=== PATIENT | female | born 1960 | race Caucasian/White ===

== ENCOUNTER 2023-06-22 19:28 | Outpatient (REF) | payer MEDICARE, OTHER, SELFPAY ==
[2023-06-26 12:12] LABS: Age Gdln ACOG Testing Note (.); HPV Aptima Negative (Negative); IGP, Aptima HPV, rfx 16/18,45 Note (.)
== END 2023-06-22 19:29 | disposition home or self-care (01) ==
LOC: LAB 19:28
PROVIDERS: PCP Internal Medicine; Visit Provider Obstetrics & Gynecology
DX: Z01.419 Encounter for gynecological examination (general) (routine) without abnormal findings (principal)
CPT/HCPCS: 87624; G0145

== ENCOUNTER 2023-08-13 10:47 | Outpatient (OUT) | payer MEDICARE, OTHER, SELFPAY ==
--- NOTE | 2023-08-13 11:22 | MM_ITS ---
Patient Name: NORA BRAND MR#: [id number] : 1960 Exam Date: 08/13/2023 Ordering Doctor: DR Kobi Latham . RADIOLOGY REPORT PROCEDURE: MM TOMOSYNTHESIS SCREENING BI COMPARISON: MG MAMM SCREEN 3D TERENCE CAD, 06/05/2022. MG MAMM SCREEN 3D TERENCE CAD, 05/28/2021. MG MAMM SCREEN TERENCE W CAD, 05/27/2020. MG MAMM SCREEN TERENCE W CAD, 01/25/2018. INDICATIONS: Screening Calculator Name NCI Breast Cancer Risk Assessment Tool 5 Year Breast Cancer Risk 1.90% Lifetime Breast Cancer Risk 8.40% Personal Breast Cancer No Personal Ovarian Cancer No Treatments None Family Cancers Sister with thyroid cancer at age 52. LOCATION: The [facility] BREAST COMPOSITION: Scattered areas fibroglandular density. FINDINGS: DIAGNOSTIC CATEGORY 1--NEGATIVE. RIGHT BREAST: No significant suspicious finding. No significant change has occurred. LEFT BREAST: No significant suspicious finding. No significant change has occurred. RECOMMENDATIONS: ROUTINE MAMMOGRAM AND CLINICAL EVALUATION IN 12 MONTHS. PLEASE NOTE: A NORMAL MAMMOGRAM DOES NOT EXCLUDE THE POSSIBILITY OF BREAST CANCER. A CLINICALLY SUSPICIOUS PALPABLE LUMP SHOULD BE BIOPSIED. Dictated by: Rj Lozada M.D. on 08/13/2023 at 14:58 Approved by: Rj Lozada M.D. on 08/13/2023 at 15:01
--- NOTE | 2023-08-13 11:28 | XR_ITS ---
[address] [address] Patient Name: NORA BRAND MRN: [id number] date: 1960 Sex: F Assigned Patient Location: [facility] Current Patient Location: [facility] Accession/Order Number: [id number] Exam Date: 08/13/2023 11:20 Report Date: 08/13/2023 11:51 At the request of: PASHA PAIGE Procedure: XR DEXA axial skeleton EXAMINATION: XR DEXA axial skeleton HISTORY: Postmenopausal COMPARISON: DEXA bone densitometry 05/28/2021 TECHNIQUE: Dual-energy X-ray absorptiometry (DXA) was performed. FINDINGS: SPINE ANALYSIS: Average bone mineral density is 1.317 g/cm2. T-score (standard deviation relative to young adult mean): 1.1 . -1.6% change since prior study. FOREARM ANALYSIS: Average bone mineral density is 0.740 g/cm2. T-score (standard deviation relative to young adult mean): 0.4 . -13.4% change since prior study. XR/XR DEXA axial skeleton IMPRESSION: World [employer] Classification: Normal - Low Fracture Risk Electronically authenticated by: YESENIA BLACK Date: 08/13/2023 11:51
== END 2023-08-13 10:48 | disposition home or self-care (01) ==
LOC: MAMMO 10:47
PROVIDERS: PCP Internal Medicine; Visit Provider Obstetrics & Gynecology
DX: Z12.31 Encounter for screening mammogram for malignant neoplasm of breast (principal); Z78.0 Asymptomatic menopausal state; Z80.8 Family history of malignant neoplasm of other organs or systems
CPT/HCPCS: 77063; 77067; 77080

== ENCOUNTER 2023-08-24 08:56 | Outpatient (OUT) | payer MEDICARE, OTHER, SELFPAY ==
--- NOTE | 2023-08-24 08:59 | US_ITS ---
The [address] [address] Patient Name: NORA BRAND MRN: [id number] date: 1960 Sex: F Assigned Patient Location: Current Patient Location: [place] Accession/Order Number: [id number] Exam Date: 08/24/2023 09:00 Report Date: 08/24/2023 12:59 At the request of: ANDRE MCNEIL Procedure: US renal BI EXAMINATION: US renal BI HISTORY: Kidney Stones COMPARISON: No relevant comparison available. TECHNIQUE: Ultrasound examination was performed of the bladder. FINDINGS: Right Kidney: Normal in size, contour and cortical echotexture. The cortex measures 1.2 cm. 6 mm echogenic focus likely representing a nonobstructing nephrolith. No solid cortical mass or hydronephrosis Height: 5.5 cm Length: 9.2 cm Width: 5.7 cm Left Kidney: Normal in size, contour and cortical echotexture. The cortex measures 1.6 cm. Scattered echogenic foci, the largest measures 4 mm likely representing a nonobstructing nephrolith. No solid cortical mass or hydronephrosis Height: 5.0 cm Length: 9.6 cm Width: 4.3 cm Urinary bladder measures 222 mL. US/US renal BI IMPRESSION: Bilateral nonobstructing nephrolithiasis measuring up to 6 mm in the right and 4 mm in the left Electronically authenticated by: LANEY RAMOS Date: 08/24/2023 12:59
--- NOTE | 2023-08-24 09:50 | XR_ITS ---
The [address] [address] Patient Name: NORA BRAND MRN: [id number] date: 1960 Sex: F Assigned Patient Location: [place] Current Patient Location: [place] Accession/Order Number: [id number] Exam Date: 08/24/2023 09:55 Report Date: 08/24/2023 14:50 At the request of: ANDRE MCNEIL Procedure: XR abdomen 1V EXAM: XR abdomen 1V HISTORY: Kidney Stones COMPARISON: None. TECHNIQUE: AP view of the abdomen. FINDINGS: Nonobstructive bowel gas pattern is noted. There is no suspicious calcification. The osseous structures are intact. XR/XR abdomen 1V IMPRESSION: Nonobstructive bowel gas pattern. Constipation. Electronically authenticated by: JENNIFER CHACON Date: 08/24/2023 14:50
== END 2023-08-24 08:57 | disposition home or self-care (01) ==
LOC: US 08:56
PROVIDERS: PCP Internal Medicine; Visit Provider Physician Assistant
DX: N20.0 Calculus of kidney (principal)
CPT/HCPCS: 74018; 76775

== ENCOUNTER 2023-09-15 09:14 | Outpatient (OUT) | payer MEDICARE, OTHER, SELFPAY ==
--- NOTE | 2023-09-15 09:17 | CT_ITS ---
The [address] [address] Patient Name: NORA BRAND MRN: [id number] date: 1960 Sex: F Assigned Patient Location: CT Current Patient Location: CT Accession/Order Number: [id number] Exam Date: 09/15/2023 09:26 Report Date: 09/15/2023 09:53 At the request of: ANDRE MCNEIL Procedure: CT abdomen pelvis wo con EXAM: CT abdomen pelvis wo con HISTORY: Gross hematuria and left flank pain off-and-on since [place]. History of kidney stones. COMPARISON: None. TECHNIQUE: A noncontrast scan was performed. Sagittal and coronal reformatted images were produced. Dose reduction techniques were achieved by using automated exposure control and/or adjustment of mA and/or kV according to patient size and/or use of iterative reconstruction technique. 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 Both lung bases show small areas of very faint groundglass appearance. The visualized heart and great vessels are normal. There are some calcified nodes in the right hilum. In the posterior medial dome of the liver, there is a slightly ill-defined area of decreased attenuation measuring roughly 2.9 cm in greatest dimension. The liver otherwise shows normal unenhanced characteristics. The spleen, adrenal glands, and pancreas show normal unenhanced characteristics. There is a septation versus a phrygian cap in the fundus of the gallbladder. The gallbladder is otherwise normal. Both kidneys show mildly lobulated contours. No renal stones are seen and there is no hydronephrosis on either side. However, there is a 5.7 mm calcification in the distal third of the right ureter. Note that evaluation of the distal ureters on this exam is very limited due to metallic beam hardening artifact from bilateral hip prostheses. There is scattered calcified plaque in the aorta and branch vessels. There is an IVC filter in place. The large and small bowel are normal caliber. Pelvic organs and urinary bladder are very grossly normal in appearance, although visualization is limited. No suspicious or destructive bone lesions are seen. Degenerative changes in the lumbar spine cause severe canal and neuroforaminal narrowing at several levels. There is no free air or free fluid and no premature stranding is seen. CT/CT abdomen pelvis wo con IMPRESSION: There is a nonobstructing 5.7 mm stone in the distal third of the right ureter. Evaluation of the urinary tract system is otherwise grossly unremarkable. Indeterminate area of decreased attenuation in the posterior medial dome of the liver. Electronically authenticated by: KORY HORAN Date: 09/15/2023 09:53
--- OUTSIDE RECORDS SUMMARY | 2023-09-15 09:36 | XMS_ITS | CCD ---
Author Name Unknown Address [address] [place] [address] Organization [facility] Care Team Providers Care Talcer Name Role Phone Alexander Chen Unavailable [phone] Rossana Dotson Unavailable [phone] ROSANGELA DUMONT Unavailable Unavailabl e YUHAS, ALEXANDER JOSE Unavailable Unavailable LINA NG Unavailable Unavailable LINA NG Unavailable Unavailable [facility] Unavailable U navailable YUDONTAS, ALEXANDER JOSE Unavailable Unavailable LINA NG Unavailable Unavailable ROSSANA DOTSON Unavailable Unavailable YUHAS, ALEXANDER JOSE Unavailable Unavailable LINA NG Unavailable Unavailable LINA NG Unavailable Unavailable YUHAS, ALEXANDER JOSE Unavailable Unavailable LINA NG Unavailable Unavailable LINA NG Unavailable Unavailable [facility] Unavailable U navailable YUHAS, ALEXANDER JOSE Unavailable Unavailable LINA NG Unavailable Unavailable ROSSANA DOTSON Unavailable Unavailable YUHAS, ALEXANDER JOSE Unavailable Unavailable Alexander Chen Primary Care Provider SHEREE VILLAR Referring Unavailable ALEXANDER CHEN Primary Care Unavailable DR ТАТЬЯНА JONES JR Admitting Unavailantoni JONES JR, DR ТАТЬЯНА Sorto Attending Unavailabl e APRIL, DR MUNOZ Primary Care Unavailable SOFIA, DR YESENIA Russell Consulting Unavailable KAREN MENJIVAR, DR ТАТЬЯНА Sorto Consulting Unavailabl e ROYAL, DR PAK Admitting Unavailable ROYAL, DR PAK Attending Unavailable YUFRANCISCO, DR MUNOZ Primary Care Unavailable ELLABELL, DR LANEY Diaz Consulting Unavailable ROYAL, DR PAK Consulting Unavailable ROYAL, DR PAK Admitting Unavailable ROYAL, DR PAK Attending Unavailable YUHAS, DR MUNOZ Primary Care Unavailable ROYAL, DR PAK Consulting Unavailable APRIL, ALEXANDER Primary Care Physician DO Alexander hCen Primary Care Provider MD Mati Mcmillan Attending Provider [phone] Fredos, Alexander Primary Care Unavailable Deyanira, Contreras Attending Unavailable Deyanira, Contreras Admitting Unavailable April, Alexander Primary Care Unavailable Mcmillan, Contreras Attending Unavailable Mcmillan, Contreras Admitting Unavailable Yuhas, Alexander Primary Care Unavailable Mcmillan, Contreras Attending Unavailable Mcmillan, Contreras Admitting Unavailable MAURO NAPIER Attending Unavailable [facility] Unavailab le Jace 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, Dorys Go Attending Unav ailable Yuhas DO, [facility] Primary Care Unavailab le Jace 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, Dorys Go Attending Unav ailable Yuhas DO, [facility] Primary Care Unavailab le Jace 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, Dorys Go Attending Unav ailable Yuhas DO, [facility] Primary Care Unavailab corrine Schwab MD, Lina Ignacio Attending Unavai lable Yuhas DO, [facility] Primary Care Unavailab corrine Schwab MD, Lina Ignacio Attending Unavai lable Jace 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, Dorys Go Attending Unav ailable Yuhas DO, [facility] Primary Care Unavailab MOHIT Mccray Referring Unavailable APRIL, ALEXANDER L Primary Care Unavailable DIANA MCNELI Attending Unavailable DIANA MCNEIL Attending Unavailable EWADIANA FISHER Attending Unavailable EWADIANA FISHER Admitting Unavailable EWADIANA FISHER Attending Unavailable Allergies Allergy Classification Reported Allergen(s) Allergy Type Date of Onset Reaction(s) Facility (9 sources) erythromycin; Translations: [ERYTHROMYCIN] Propensity to adverse reactions to drug 09-11-20 16 Other (See Comments), Unknown (qualifier value) [facility] Work Phone: (9 sources) lithium; Translations: [LITHIUM] Propensity to adverse reactions to drug 10-18-19 18 Other (See Comments), Unknown (qualifier value) [facility] Work Phone: (11 sources) predniSONE; Translations: [PREDNISONE] Propensity to adverse reactions to drug 09-26-19 17 Swelling, Unknown (qualifier value) [facility] Work Phone: (9 sources) sertraline; Translations: [SERTRALINE] Propensity to adverse reactions to drug 09-11-20 16 Other (See Comments), Unknown (qualifier value) [facility] Work Phone: (2 sources) Penicillins; Translations: [PENICILLINS] Propensity to adverse reactions to drug (disorder) 08-30-20 18 [facility] Repository (4 sources) vortioxetine; Translations: [VORTIOXETINE] Drug Allergy 08-12-20 18 AOF, Vomiting [facility] Repository (1 source) milnacipran Drug Allergy 09-26-19 17 [facility] Work Phone: (3 sources) Amoxicillin; Translations: [amoxicillin] Drug Allergy 02-06-20 20 Hives [facility] Rep[facility] (3 sources) Erythromycin; Translations: [erythromycin base] Drug Allergy 02-26-20 14 Gastrointestinal Upset [facility] (1 source) [place] Drug Allergy 07-09-20 17 [facility] (1 source) meloxicam Drug Allergy [facility] (3 sources) meloxicam; Translations: [MELOXICAM] Drug Allergy 02-16-20 19 blood in urine [facility] (2 sources) milnacipran; Translations: [Savella] Drug Allergy 02-26-20 14 [facility] (1 source) predniSONE Drug Allergy 02-26-20 14 [facility] (3 sources) Sertraline; Translations: [Zoloft] Drug Allergy [facility] (5 sources) vortioxetine; Translations: [vortioxetine] Drug Allergy Blood in urine (finding) [facility] (2 sources) Amoxicillin; Translations: [amoxicillin] Drug Allergy Weal (disorder) [facility] [place] (5 sources) milnacipran; Translations: [milnacipran] Drug Allergy 02-06-20 20 Unknown (qualifier value) [facility] (1 source) Amoxicillin Drug Allergy 02-06-20 [facility] Repository (1 source) Erythromycin Drug Allergy 02-06-20 [facility] Rep[facility] (1 source) [place] Drug Allergy 02-06-20 [facility] Rep[facility] (1 source) meloxicam Drug Allergy 02-06-20 [facility] (1 source) milnacipran Drug Allergy 02-06-20 [facility] Repository (1 source) predniSONE Drug Allergy 02-06-20 [facility] Repository (1 source) Sertraline Drug Allergy 02-06-20 [facility] Repository (1 source) sevelamer; Translations: [SEVELAMER] Drug Allergy 01-26-20 [facility] Repository (1 source) LITHIUM ANALOGUES; Translations: [LITHIUM ANALOGUES] Propensity to adverse reactions to drug (disorder) 01-26-20 [facility] Repository Medications Current Medications Medication Drug Class(es) Dates Sig (Normalized) Sig (Original) acetaminophen 300 mg / butalbital 50 mg / caffeine 40 mg / codeine phosphate 30 mg oral capsule (3 sources) Opioid Agonist, Barbiturate, Central Nervous System Stimulant, Methylxanthine Start: 12-08-2019 acetaminophen/bu talbital/caffein e/codeine 300 mg-50 mg-40 mg-30 mg oral capsule 2 cap(s), Oral, Migraine headache, Refill(s) 0 Start Date: 12/08/19 Status: Ordered acetaminophen 325 mg / oxyCODONE hydrochloride 5 mg oral tablet (5 sources) Opioid Agonist Start: 02-02-2020 take 1 tablet by mouth three times daily Oxycodone-Acetam inophen (Percocet) 5-325 mg Tablet Active 1 TAB PO Three times daily February 02, 2020 12:00am Start: 11-11-2017 End: 11-18-2017 take 1 tablet by mouth once as needed for pain, then take 2 tablets by mouth every four to six hours as needed for pain oxyCODONE-acetaminophen (PERCOCET) 5-325 mg per tablet Indications: Osteoarthritis of left hip, unspecified osteoarthritis type Take 1 (one) tablet to 2 (two) tablets by mouth every 4 to 6 hours as needed for pain. 30 tablet 0 11/11/2017 11/18/2017 Active Start: 11-09-2017 End: 11-11-2017 take 1-2 tablets by mouth every four hours as needed End: 11-11-2017 take 1 tablet by mouth every six hours as needed oxyCODONE-acetaminophen (PERCOCET) 5-325 mg per tablet Take 1 tablet by mouth every 6 (six) hours as needed for pain TAKES 1 TABLET . 11/11/2017 Discontinued albuterol 0.83 mg/ml inhalation solution (4 sources) beta2-Adrenergic Agonist Start: 02-02-2020 take 2.5 mg by inhalation four times daily Albuterol Sulfate Active 2.5 MG INHALATION Four times daily February 02, 2020 12:00am Start: 12-08-2019 albuterol 2.5 mg, NEB, Refills(s) 0, Asthma Start Date: 12/08/19 Status: Ordered take 2 puff(s) by in halation every six hours as needed for wheezing albuterol sulfate HFA 108 (90 BASE) MCG/ACT inhaler Inhale 2 puffs into the lungs every 6 hours as needed for Wheezing 0 Active aspirin 81 mg delayed release oral tablet (6 sources) Nonsteroidal Anti-inflammatory Drug Start: 02-02-2020 take 81 mg by mouth once daily at bedtime Aspirin Active 81 MG PO Daily at bedtime February 02, 2020 12:00am Start: 12-08-2019 take 1 mg by mouth once daily aspirin 81 mg oral tablet mg tab(s), Oral, Daily, Refills(s) 0 Start Date: 12/08/19 Status: Ordered take 2 tablets by mo ut once daily aspirin 81 MG chewable tablet Take 162 mg by mouth daily 0 Active End: 11-11-2017 take 1 tablet by mouth once aspirin 81 MG EC tablet In dications: Myocardial Reinfarction Prevention , prevention of transient ischemic attack Take 81 mg by mouth nightly TAKES 2 TABLETS ReasonsMyocardial Reinfarction Prevention, prevention of transient ischemic attack. 11/11/2017 Discontinued aspirin 325 mg / butalbital 50 mg / caffeine 40 mg / codeine phosphate 30 mg oral capsule (2 sources) Opioid Agonist, Barbiturate, Nonsteroidal Anti-inflammatory Drug, Central Nervous System Stimulant, Methylxanthine irznjla-iwzuovdgxf-Z SA-caff (nntwvbtkoz-retsjji-layexdzl-codeine) capsule Indications: MIGRAINES Take 1 capsule by mouth continuous as needed for pain TAKES 2 TABLETS, EACH TABLET IS 30 MG ReasonsMIGRAINES. Active atorvastatin 40 mg oral tablet (7 sources) HMG-CoA Reductase Inhibitor Sta rt: 0 take 1 mg by mouth once daily Lipitor 40 mg Tab mg tab(s), Oral, Daily, Refills(s) 0 Start Date: 12/08/19 Status: Ordered Start: 11-09-2017 End: 11-11-2017 baclofen (7 sources) gamma-Aminobutyric Acid-ergic Agonist Start: 08-25-2023 BACLOFEN 10 MG TABLET BACLOFEN 10 MG TABLET Start Date: 08/25/23 Status: Ordered Start: 02-02-2020 take 20 mg by mouth four times daily Baclofen Active 20 MG PO Four times daily February 02, 2020 12:00am Start: 12-08-2019 take 1 tablet by veronica th four times daily baclofen 20 mg Tab 20 mg = 1 tab(s), Oral, QID, Refills(s) 0 Start Date: 12/08/19 Status: Ordered Start: 11-09-2017 End: 11-11-2017 take 1 tablet by veronica th four times daily baclofen (LIORESAL) 20 MG tablet Indications: FIBROMYALGIA Take 20 mg by mouth 4 (four) times a day TAKES 1 TABLET ReasonsFIBROMYALGIA. Active betamethasone / clotrimazole (2 sources) Azole Antifungal, Corticosteroid Start: 02-02-2020 apply 15 g topically once daily Lotrisone Active 15 GM TOPICAL Daily February 02, 2020 12:00am Start: 11-10-2017 End: 11-11-2017 clotrimazole-betamethasone ( LOTRISONE) cream biotin 1 mg oral tablet (2 sources) Start: 02-04-2021 take 2 tablets by mouth once daily biotin 1000 mcg oral tablet 2,000 mcg = 2 tab(s), Oral, Daily, # 30 tab(s), Refills(s) 0 Start Date: 02/04/21 Status: Ordered 24 hr buPROPion hydrochloride 150 mg extended release oral tablet (3 sources) Aminoketone Start: 02-02-2020 take 150 mg by mouth once daily in the morning Bupropion Hcl Active 150 MG PO Every morning February 02, 2020 12:00am Start: 12-08-2019 take 1 mg by mouth twice daily buPROPion 150 mg ER Tab mg tab(s), Oral, BID, Refills(s) 0 Start Date: 12/08/19 Status: Ordered busPIRone hydrochloride 10 mg oral tablet (3 sources) Start: 02-04-2021 take 1 tablet by mouth twice daily busPIRone 10 mg Tab 10 mg = 1 tab(s), Oral, BID, Refills(s) 0 Start Date: 02/04/21 Status: Ordered Start: 02-02-2020 take 10 mg by mouth once daily in the morning Buspirone Active 10 MG PO Every morning February 02, 2020 12:00am Start: 02-02-2020 take 20 mg by mouth once daily in the evening Buspirone Active 20 MG PO Every evening February 02, 2020 12:00am cholecalciferol 0.125 mg oral tablet (4 sources) Vitamin D Start: 02-02-2020 take 1 tablet by mouth once daily Cholecalciferol (Vitamin D3) (Vitamin D3) 125 mcg (5,000 unit) Tablet Active 125 MCG PO Daily February 02, 2020 12:00am Cholecalciferol (VITAMIN D3) 2000 UNITS CAPS Take 1,000 Units by mouth daily 0 Active take 1 tablet by veronica th once daily in the morning cholecalciferol, vitamin D3, (VITAMIN D3 ) 5,000 unit Tab tablet Indications: SUPPLEMENT Take 5,000 Units by mouth every morning TAKES 1 TABLET . Active cycloSPORINE 0.5 mg/ml ophthalmic suspension (1 source) Calcineurin Inhibitor Immunosuppressant Start: 02-02-2020 take 1 drop(s) into the eye(s) every twelve hours Cyclosporine (Restasis) 0.05 % Dropperette Active 1 DROPS EYE-BOTH Q12H February 02, 2020 12:00am dexlansoprazole 60 mg delayed release oral capsule (3 sources) Proton Pump Inhibitor take 1 capsule by mouth once daily dexlansoprazole (DEXILANT) 60 MG CPDR delayed release capsule Take 60 mg by mouth daily 0 Active take 1 capsule by mo uth twice daily dexlansoprazole (DEXILANT) 60 mg capsule Indications: gastroesophageal reflux disease Take 60 mg by mouth 2 (two) times a day TAKES 1 TABLET ReasonsGastroesophageal Reflux. Active 0.8 ml enoxaparin sodium 100 mg/ml prefilled syringe (6 sources) Low Molecular Weight Heparin Start: 11-13-2017 End: 11-15-2017 take 80 mg by subcutaneous injection every twelve hours enoxaparin (LOVENOX) 80 mg/0.8 mL Syrg Inject 0.8 mL (80 mg total) under the skin every 12 (twelve) hours for 2 days. 5 Syringe 0 11/13/2017 11/15/2017 Active Start: 11-11-2017 End: 11-12-2017 enoxaparin (LOVENOX) 40 mg/0 .4 mL Syrg Inject 0.4 mL (40 mg total) under the skin daily Take on Wednesday11/12/2017 for 1 day. 1 Syringe 0 11/11/2017 11/12/2017 Active Start: 11-10-2017 End: 11-11-2017 enoxaparin (LOVENOX) syringe 40 mg Start: 11-05-2017 End: 11-08-2017 take 80 mg by subcutaneous injection every twelve hours enoxaparin (LOVENOX) 80 mg/0.8 mL Syrg Inject 0.8 mL (80 mg total) under the skin every 12 (twelve) hours for 6 doses. 6 Syringe 0 11/05/2017 11/08/2017 Active enoxaparin (LOVE NOX) 100 MG/ML injection Inject 1 mg/kg into the skin 2 times daily 0 Active famotidine 40 mg oral tablet (1 source) Histamine-2 Receptor Antagonist Start: 08-25-2023 famotidine 40 mg Tab Refills(s) 0 Start Date: 08/25/23 Status: Ordered FeroSul 325 mg oral tablet (1 source) Start: 08-25-2023 FeroSul 325 mg oral tablet Refills(s) 0 Start Date: 08/25/23 Status: Ordered ferrous sulfate 325 mg oral tablet (1 source) Start: 02-02-2020 take 325 mg by mouth once daily Ferrous Sulfate Active 325 MG PO Daily February 02, 2020 12:00am Fish Oils (2 sources) Start: 02-04-2021 Fish Oil 1,200 mg, Oral, Refill(s) 0 Start Date: 02/04/21 Status: Ordered fluticasone / salmeterol (5 sources) Corticosteroid, beta2-Adrenergic Agonist Start: 02-04-2021 take 2 puff(s) by inhalation twice daily Advair HFA 230 mcg-21 mcg Aerosol 2 puff(s), Inhalation, BID, Refill(s) 6 Start Date: 02/04/21 Status: Ordered Start: 02-02-2020 take 1 puff(s) by in halation twice daily Fluticasone Propion-Salmeterol (Advair Hfa) 230-21 mcg/actuation Hfa Aerosol Inhaler Active 2 PUFF INHALATION Twice daily February 02, 2020 12:00am FLUTICASONE/SALM ETEROL (ADVAIR HFA INHL) Indications: ASTHMA Inhale 2 (two) times a day DOES 2 PUFFS ReasonsASTHMA. Active folic acid 1 mg oral tablet (6 sources) Start: 12-08-2019 take 1 tablet by mouth once daily folic acid 1 mg Tab mg tab(s), Oral, Daily, Refills(s) 0 Start Date: 12/08/19 Status: Ordered gabapentin 300 mg oral capsule (7 sources) Anti-epileptic Agent Start: 02-02-2020 take 1 capsule by mouth four times daily Gabapentin (Neurontin) 300 mg Capsule Active 300 MG PO Four times daily February 02, 2020 12:00am Start: 12-08-2019 take 1 mg by mouth e very six hours Neurontin 300 mg Cap mg cap(s), Oral, q6hr, Refills(s) 0 Start Date: 12/08/19 Status: Ordered Start: 11-09-2017 End: 11-11-2017 take 2 capsules by mouth every six hours for pain and pain Start: 09-28-2016 take 0.5 tablet by m outh three times daily gabapentin (NEURONTIN) 600 MG tablet Take 0.5 tablets by mouth 3 times daily 90 tablet 3 09/28/2016 Active take 1 tablet by veronica th four times daily gabapentin (NEURONTIN) 600 MG tablet Indications: Neuropathic Pain Take 600 mg by mouth 4 (four) times a day TAKES 1 TABLET ReasonsNeuropathic Pain. Active 1 ml galcanezumab-gnlm 120 m g/ml prefilled syringe (2 sources) Start: 02-02-2020 Galcanezumab-G nlm (Emgality Syringe) 120 mg/mL Syringe Active 120 MG SUBCUT Q30D February 02, 2020 12:00am Start: 12-08-2019 inject 1 mg by subcu taneous injection every month Emgality Prefilled Pen 120 mg/mL subcutaneous solution SubCutaneous, qMonth, Refills(s) 0 Start Date: 12/08/19 Status: Ordered latanoprost 0.05 mg/ml ophthalmic solution (1 source) Prostaglandin Analog Start: 02-02-2020 take 1 drop(s) into the eye(s) once daily in the evening Latanoprost Active 1 DROPS EYE-BOTH Every evening February 02, 2020 12:00am linaclotide (1 source) Guanylate Cyclase-C Agonist Start: 02-02-2020 take 1 capsule by mouth once daily Linaclotide (Linzess) 290 mcg Capsule Active 290 MCG PO Daily February 02, 2020 12:00am lithium carbonate 300 mg oral tablet (2 sources) End: 10-18-2017 take 1 tablet by mouth three times daily lithium 300 MG tablet Take 300 mg by mouth 3 times daily 0 Active 24 hr loratadine 10 mg / pseudoephedrine sulfate 240 mg extended release oral tablet (3 sources) alpha-Adrenergic Agonist Start: 02-02-2020 take 1 tablet by mouth once daily at bedtime, then take 1 tablet by mouth every twenty-four hours Loratadine-Pseud oephedrine (Claritin-D 24 Hour) 10-240 mg Tablet Extended Release 24 Hr Active 1 TAB PO Daily at bedtime February 02, 2020 12:00am take 1 tablet by mouth once oscar tadine-pseudoePHEDrine (loratadine- pseudoephedrine) 5-120 mg Tb12 Indications: Allergic Rhinitis Take by mouth nightly TAKES 1 TABLET ReasonsAllergic Rhinitis. Active losartan potassium 50 mg oral tablet (1 source) Angiotensin 2 Receptor Chery Start: 02-02-2020 take 1 tablet by mouth once daily Losartan (Cozaar) 50 mg Tablet Active 50 MG PO Daily February 02, 2020 12:00am lurasidone hydrochloride 40 mg oral tablet (1 source) Atypical Antipsychotic Start: 12-08-2019 take 1 mg by mouth once daily Latuda 40 mg oral tablet mg tab(s), Oral, Daily, Refills(s) 0 Start Date: 12/08/19 Status: Ordered metoclopramide 10 mg oral tablet (4 sources) Dopamine-2 Receptor Antagonist Start: 02-04-2021 take 1 tablet by mouth three times daily Reglan 10 mg Tab 10 mg = 1 tab(s), Oral, TID, Refills(s) 0 Start Date: 02/04/21 Status: Ordered Start: 11-10-2017 End: 11-10-2017 metoclopramide (REGLAN) inje ction 10 mg Start: 11-10-2017 End: 11-10-2017 metoclopramide (REGLAN) 5 mg /mL injection - ADS Override Pull Start: 11-10-2017 End: 11-10-2017 metoclopramide (REGLAN) inje ction 10 mg mometasone furoate 0.05 mg/actuat metered dose nasal spray (1 source) Corticosteroid mometasone (NASONEX) 50 MCG/ACT nasal spray 2 sprays by Nasal route daily 0 Active montelukast 10 mg oral tablet (6 sources) Leukotriene Receptor Antagonist Start: 12-08-19 take 1 tablet by mouth once daily in the evening Montelukast (Singulair) 10 mg Tablet Active 10 MG PO Every evening February 02, 2020 12:00am Start: 11-09-2017 End: 11-11-2017 nystatin 100 unt/mg topical powder (2 sources) Polyene Antifungal Start: 02-02-2020 Nystatin (N yamyc) 100,000 unit/gram Powder Active 1 APPLIC TOPICAL Twice daily February 02, 2020 12:00am Start: 11-10-2017 End: 11-11-2017 nystatin (MYCOSTATIN) powder ondansetron 4 mg oral tablet (5 sources) Serotonin-3 Receptor Antagonist Start: 02-02-2020 take 2 tablets by mouth twice daily Ondansetron Hcl (Zofran) 4 mg Tablet Active 2 TAB PO Twice daily February 02, 2020 12:00am Start: 11-11-2017 End: 11-11-2017 ondansetron (ZOFRAN-ODT) disintegrating tablet 4 mg Start: 11-09-2017 End: 11-11-2017 take 4 mg intravenous route every six hours as needed take 1 tablet by veronica th once daily in the morning ondansetron (ZOFRAN) 4 MG tablet Take 4 mg by mouth every morning TAKES 1 TABLET . Active pantoprazole 40 mg delayed release oral tablet (4 sources) Proton Pump Inhibitor Start: 02-02-2020 take 40 mg by mouth once daily Pantoprazole Active 40 MG PO Daily February 02, 2020 12:00am Start: 12-08-2019 take 1 tablet by veronica th twice daily Pantoprazole [address] Tab 40 mg = 1 tab(s), Oral, BID, Refills(s) 0 Start Date: 12/08/19 Status: Ordered Start: 11-09-2017 End: 11-11-2017 24 hr QUEtiapine 300 mg extended release oral tablet (7 sources) Atypical Antipsychotic Start: 02-02-2020 Quetiap ine (Seroquel Xr) 300 mg Tablet Extended Release 24 Hr Active 600 MG PO Daily at bedtime February 02, 2020 12:00am Start: 12-08-2019 take 50 mg by mouth once daily in the evening Seroquel 50 mg, Oral, qPM, Refills(s) 0 Start Date: 12/08/19 Status: Ordered Start: 11-09-2017 End: 11-11-2017 QUEtiapine (SERO QUEL) 25 MG tablet Take 200 mg by mouth nightly 0 Active take 300 mg by mouth once QUEtia pine (SEROQUEL) 200 MG tablet Indications: BIPOLAR Take 300 mg by mouth nightly TAKES 1 TABLET . Active sennosides, nursing home 8.6 mg oral tablet (3 sources) Start: 02-02-2020 take 2 tablets by mouth once daily at bedtime Sennosides (Senna) 8.6 mg Tablet Active 17.2 MG PO Daily at bedtime February 02, 2020 12:00am Start: 12-08-2019 take 1 mg by mouth once daily senna 17.2 mg oral tablet mg tab(s), Oral, Daily, Refills(s) 0 Start Date: 12/08/19 Status: Ordered levothyroxine sodium 0.05 mg oral tablet (6 sources) l-Thyroxine Start: 02-04-2021 take 1.5 tablets by mouth once daily levothyroxine 50 mcg (0.05 mg) Tab 1.5 tab, Oral, Daily, # 30 tab(s), Refills(s) 0 Start Date: 02/04/21 Status: Ordered Start: 11-10-2017 End: 11-11-2017 Start: 09-28-2016 take 1 tablet by veronica th once daily at bedtime Levothyroxine (Synthroid) 25 mcg Tablet Active 25 MCG PO Daily at bedtime February 02, 2020 12:00am take 1 tablet by veronica th once daily in the morning levothyroxine (SYNTHROID, LEVOTHROID) 50 MCG tablet Indications: hypothyroidism Take 50 mcg by mouth every morning TAKES 1 TABLET Reasonshypothyroidism. Active tiZANidine 4 mg oral tablet (1 source) Central alpha-2 Adrenergic Agonist Start: 02-06-2020 take 4 mg by mouth once daily at bedtime Tizanidine Active 4 MG PO Daily at bedtime February 06, 2020 12:00am valsartan 160 mg oral tablet (2 sources) Angiotensin 2 Receptor Chery Start: 02-04-2021 take 1 tablet by mouth once daily valsartan 160 mg Tab 160 mg = 1 tab(s), Oral, Daily, Refills(s) 0 Start Date: 02/04/21 Status: Ordered 24 hr venlafaxine 150 mg extended release oral capsule (5 sources) Serotonin and Norepinephrine Reuptake Inhibitor Start: 02-02-2020 take 1 capsule by mouth once daily Venlafaxine (Effexor Xr) 150 mg Capsule,Extended Release 24hr Active 150 MG PO Daily February 02, 2020 12:00am Start: 11-10-2017 End: 11-11-2017 take 3 capsules by m outh once daily venlafaxine (EFFEXOR XR) 150 MG extended release capsule Take 450 mg by mouth daily 0 Active take 1 capsule by mo uth once daily in the morning venlafaxine (EFFEXOR-XR) 150 MG 24 hr capsule Indications: DEPRESSION Take 150 mg by mouth every morning TAKES 3 TABLETS ReasonsDEPRESSION. Active Vitamin B12 1000 mcg Tab (2 sources) Start: 02-04-2021 take 1 tablet by mouth once daily Vitamin B12 1000 mcg Tab 1,000 mcg = 1 tab(s), Oral, Daily, # 30 tab(s), Refills(s) 0 Start Date: 02/04/21 Status: Ordered Vitamin D3 (2 sources) Start: 12-08-2019 Vitamin D3 5,0 00 International_Unit , Oral, Daily, Refills(s) 0 Start Date: 12/08/19 Status: Ordered warfarin sodium 5 mg oral tablet (9 sources) Vitamin K Antagonist Start: 12-08-2019 take 1 tablet by mouth once daily Coumadin 5 mg Tab 5 mg = 1 tab(s), Oral, Daily, Refills(s) 0 Start Date: 12/08/19 Status: Ordered Start: 11-11-2017 End: 11-11-2017 warfarin (COUMADIN) tablet 7 .5 mg Start: 11-10-2017 End: 11-10-2017 warfarin (COUMADIN) tablet 5 mg Start: 11-09-2017 End: 11-09-2017 warfarin (COUMADIN) tablet 2 .5 mg warfarin (COUMAD IN) 7.5 MG tablet Take 7.5 mg by mouth daily 7. 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 TAKES 1 TABLET OF 5 MG ON MONDAYS, WEDNESDAYS, FRIDAYS.. Active zolpidem tartrate 10 mg oral tablet (5 sources) gamma-Aminobutyric Acid-ergic Agonist Start: 12-08-2019 take 1 tablet by mouth once daily at bedtime as needed for sleep Ambien 10 mg Tab 10 mg = 1 tab(s), Oral, Once a day (at bedtime), PRN for sleep, Refills(s) 0 Start Date: 12/08/19 Status: Ordered End: 11-11-2017 take 1 tablet by mouth once zolpidem (AMBIEN) 10 mg ta blet Indications: Sleep-Onset Insomnia Take 10 mg by mouth nightly TAKES 1.5 TABLETS ReasonsSleep-Onset Insomnia. 11/11/2017 Discontinued Completed/Discontinued Medications Medication Drug Class(es) Dates Sig (Normalized) Sig (Original) acetaminophen 325 mg oral tablet (1 source) Start: 11-09-2017 End: 11-09-2017 acetaminophen (TYLENOL) tablet 975 mg Start: 11-09-2017 End: 11-09-2017 acetaminophen (TYLENOL) tabl et 975 mg aluminum hydroxide 40 mg/ml / magnesium hydroxide 40 mg/ml / simethicone 4 mg/ml oral suspension (1 source) Start: 11-09-2017 End: 11-11-2017 take 30 mL by mouth every four hours as needed bisacodyl 10 mg rectal suppository (1 source) Stimulant Laxative Start: 11-09-2017 End: 11-11-2017 Budesonide-Formote rol Hfa 80 McG-4.5 McG/Actuation Aerosol Inhaler (1 source) Corticosteroid, beta2-Adrenergic Agonist Start: 11-09-2017 End: 11-11-2017 calcium chloride 0.0014 meq/ml / potassium chloride 0.004 meq/ml / sodium chloride 0.103 meq/ml / sodium lactate 0.028 meq/ml injectable solution (1 source) Start: 11-09-2017 End: 11-09-2017 lactated Ringers infusion ceFAZolin 2000 mg injection (1 source) Cephalosporin Antibacterial Start: 11-09-2017 End: 11-10-2017 take 2000 mg intravenous route every eight hours diazePAM 5 mg oral tablet (3 sources) Benzodiazepine Start: 11-09-2017 End: 11-11-2017 take 2.5 mg by mouth twice daily diazePAM (VALIUM) 5 MG tablet Indications: DEPRESSION Take 2.5 mg by mouth 2 (two) times a day TAKES 1 TABLET . Active Diphenhydramine 50 Mg/Ml Injection Solution (3 sources) Histamine-1 Receptor Antagonist Start: 11-10-2017 End: 11-10-2017 diphenhydrAMINE (BENADRYL) injection 25 mg Start: 11-10-2017 End: 11-10-2017 diphenhydrAMINE (BENADRYL) 5 0 mg/mL injection - ADS Override Pull Start: 11-10-2017 End: 11-10-2017 diphenhydrAMINE (BENADRYL) i njection 25 mg docusate sodium 50 mg / sennosides, nursing home 8.6 mg oral tablet (5 sources) Start: 11-09-2017 End: 11-18-2017 senna-docusate (SENNA-S) 8.6-50 mg Take 1 (one) tablet to 2 (two) tablets by mouth 2 (two) times a day for 7 days. 20 tablet 0 11/11/2017 11/11/2017 Discontinued fluticasone propionate 0.05 mg/actuat metered dose nasal spray (3 sources) Corticosteroid Start: 11-09-2017 End: 11-11-2017 take 2 spray(s) nasa l route twice daily, then take 2 spray(s) nasal route fluticasone (FLONASE) 50 mcg/actuation nasal spray Indications: Allergic Rhinitis Instill 2 sprays into each nostril 2 (two) times a day DOES 2 SPRAYS IN EACH NOSTRIL . Active 0.5 ml HYDROmorphone hydrochloride 1 mg/ml prefilled syringe (1 source) Opioid Agonist Start: 11-09-2017 End: 11-11-2017 take 0.5-1 mg intravenous route every three hours as needed Kanaflex (1 source) Start: 02-02-2020 End: 02-06-2020 take 4 mg by mouth once daily at bedtime Kanaflex Discontinued 4 MG PO Daily at bedtime February 02, 2020 12:00am February 06, 2020 3:22pm 1 ml ketorolac tromethamine 30 mg/ml injection (3 sources) Nonsteroidal Anti-inflammatory Drug, Cyclooxygenase Inhibitor Start: 11-10-2017 End: 11-10-2017 ketorolac (TORADOL) injection 30 mg Start: 11-10-2017 End: 11-10-2017 ketorolac (TORADOL) 30 mg/mL (1 mL) injection - ADS Override Pull Start: 11-10-2017 End: 11-10-2017 ketorolac (TORADOL) injectio n 30 mg lamoTRIgine 100 mg oral tabl et (3 sources) Mood Stabilizer, Anti-epileptic Agent Start: 11-10-2017 End: 11-11-2017 take 2 tablets by mo uth once daily in the morning, then take 1 tablet by mouth, then take 2 tablets by mouth lamoTRIgine (LAMICTAL) 25 MG tablet Indications: BIPOLAR Take 50 mg by mouth every morning TAKES 2 TABLETS OF 25 MG TO EQUAL TOTAL OF 50 MG . Active take 1 tablet by veronica th once daily in the morning, then take 1 tablet by mouth, then take 2 tablets by mouth lamoTRIgine (LAMICTAL) 25 MG tablet Indications: BIPOLAR Take 25 mg by mouth every morning TAKES 2 TABLETS OF 25 MG TO EQUAL TOTAL OF 50 MG . Active magnesium hydroxide 80 mg/ml oral suspension (1 source) Start: 11-09-2017 End: 11-11-2017 Memantine Er 7 Mg-14 Mg-21 Mg-28 Mg Capsule,Sprinkle,Ex t.Rel.24hr Pack (1 source) V-riqhno-Y-aspart ate Receptor Antagonist End: 10-18-2017 take 1 tablet by mouth once memantine (NAMENDA XR) 7-14-21-28 mg C24k Indications: MIGRAINES Take by mouth nightly TAKES 1 TABLET ReasonsMIGRAINES. 10/18/2017 Discontinued metoprolol tartrate 50 mg oral tablet (2 sources) beta-Adrenergic Chery Start: 11-09-2017 End: 11-11-2017 morphine sulfate 15 mg extended release oral tablet (1 source) Opioid Agonist End: 10-18-2017 take 1 tablet by mouth every twelve hours morphine (MS CONTIN) 15 MG 12 hr tablet Take 15 mg by mouth every 12 (twelve) hours TAKES 1 TABLET . 10/18/2017 Discontinued naloxone (NARCAN) injection 0.1 mg (1 source) Start: 11-09-2017 End: 11-11-2017 naloxone (NARCAN) injection 0.1 mg polyethylene glycol 3350 142 mg/ml oral solution (3 sources) Osmotic Laxative Start: 11-09-2017 End: 11-11-2017 polyethylene gly col (MIRALAX) 17 gram powder Indications: constipation Take 17 g by mouth daily as needed MIXES WITH LIQUIDS. Active 72 hr scopolamine 0.0139 mg/hr transdermal system (1 source) Anticholinergic Start: 11-09-2017 End: 11-11-2017 scopolamine (TRANSDERM-SCOP) 1 mg over 3 days patch 1 patch sodium chloride (2 sources) Start: 11-09-2017 End: 11-11-2017 sodium chloride (PF) (NS) flush 5 mL Start: 11-09-2017 End: 11-09-2017 vortioxetine 10 mg oral tabl et (3 sources) Start: 11-10-2017 End: 11-11-2017 take 1 tablet by veronica th once daily in the morning vortioxetine (TRINTELLIX) 10 mg tablet Indications: major depressive disorder Take 10 mg by mouth every morning TAKES 1 TABLET . Active Problems Active Problems Problem Classification Problem Date Documented Da te Episodic/Chronic Abdominal pain (2 sources) Flank pain 12-08-2019 Episodic Acute cerebrovascular disease (2 sources) Cerebrovascular accident 12-07-2019 Chronic Anxiety disorders (2 sources) Anxiety disorder, unspecified; Translations: [Anxiety disorder, unspecified] Onset: 8 Chronic Asthma (5 sources) Asthma; Translations: [Mild intermittent asthma, uncomplicated] Onset: 8 11-09-2017 Chronic Calculus of urinary tract (9 sources) Kidney stone; Translations: [Calculus of kidney] Onset: 2 11-09-2017 Episodic Coagulation and hemorrhagic disorders (5 sources) Antiphospholipid syndrome; Translations: [Antiphospholipid syndrome] Onset: 7 09-27-2016 Chronic Coronary atherosclerosis and other heart disease (1 source) Coronary arteriosclerosis; Translations: [Atherosclerotic heart disease of [place] coronary artery without angina pectoris] Onset: 7 09-27-2016 Chronic Deficiency and other anemia (2 sources) Anemia 12-07-2019 Episodic Disorders of lipid metabolism (2 sources) Pure hypercholesterolemia, unspecified; Translations: [Pure hypercholesterolemia, unspecified] Onset: 8 Esophageal disorders (2 sources) Gastroesophageal reflux disease; Translations: [Gastro-esophageal reflux disease without esophagitis] Onset: 7 11-09-2017 Chronic Essential hypertension (3 sources) Hypertensive disorder; Translations: [Essential (primary) hypertension] Onset: 8 11-09-2017 Chronic Genitourinary symptoms and ill-defined conditions (3 sources) Post-micturition incontinence ; Translations: [Urinary incontinence] 12-08-2019 Chronic Genitourinary symptoms and ill-defined conditions (10 sources) Preet hematuria; Translations: [History of urinary tract infection] 12-07-2019 Episodic Headache; including migraine (4 sources) Migraine without aura, not intractable, without status migrainosus; Translations: [Migraine] Onset: 8 12-07-2019 Chronic Immunizations and screening for infectious disease (1 source) Encounter for screening for human papillomavirus (HPV); Translations: [ENC SCREENING HUMAN PAPILLOMAVIRUS] Onset: 2 Episodic Inflammation; infection of eye (except that caused by tuberculosis or sexually transmitteddisease) (2 sources) Optic neuritis 12-07-2019 Chronic Mood disorders (7 sources) Bipolar disorder; Translations: [Bipolar disorder, unspecified] Onset: 7 11-09-2017 Chronic Mood disorders (2 sources) Other specified depressive episodes; Translations: [Other specified depressive episodes] Onset: 8 Osteoarthritis (8 sources) Unilateral primary osteoarthritis, left hip; Translations: [Osteoarthritis of hip] Onset: 8 11-09-2017 Chronic Other aftercare (2 sources) Aftercare following joint replacement surgery; Translations: [Aftercare following joint replacement surgery] Onset: 8 Chronic Other circulatory disease (2 sources) Personal history of transient ischemic attack (TIA), and cerebral infarction without residual deficits; Translations: [Personal history of transient ischemic attack (TIA), and cerebral infarction without residual deficits] Onset: 8 Episodic Other connective tissue disease (2 sources) Presence of left artificial hip joint; Translations: [Presence of left artificial hip joint] Onset: 8 Chronic Other connective tissue disease (2 sources) Fibromyalgia; Translations: [Fibromyalgia] Onset: 8 Episodic Other connective tissue disease (2 sources) Fibromyalgia 12-07-2019 Episodic Other nervous system disorders (1 source) Metabolic encephalopathy; Translations: [Metabolic encephalopathy] Onset: 7 09-27-2016 Chronic Other nervous system disorders (1 source) Chronic pain; Translations: [Other chronic pain] Onset: 7 09-27-2016 Chronic Other nutritional; endocrine; and metabolic disorders (2 sources) Other obesity; Translations: [Other obesity] Onset: 8 Chronic Other screening for suspected conditions (not mental disorders or infectious disease) (8 sources) Encounter for screening for malignant neoplasm of cervix; Translations: [Encounter for screening mammogram for malignant neoplasm of breast] Onset: 2 Episodic Other upper respiratory disease (1 source) Bleeding from nose; Translations: [Epistaxis] 01-31-2020 Episodic Phlebitis; thrombophlebitis and thromboembolism (6 sources) Deep venous thrombosis; Translations: [Personal history of other venous thrombosis and embolism] Onset: 7 11-09-2017 Episodic Residual codes; unclassified (2 sources) Other insomnia; Translations: [Other insomnia] Onset: 8 Chronic Residual codes; unclassified (2 sources) Other specified health status; Translations: [Other specified health status] Onset: 8 Episodic Residual codes; unclassified (1 source) Altered mental status; Translations: [Altered mental status, unspecified] 09-27-2016 Episodic Residual codes; unclassified (1 source) Family history of malignant neoplasm of other organs or systems; Translations: [FAM HX MALIG NEOPLASM OTH ORGN/SYS] Onset: 2 Episodic Substance-related disorders (1 source) Misuse of prescription only drugs; Translations: [Other psychoactive substance use, unspecified, uncomplicated] 09-27-2016 Episodic Thyroid disorders (9 sources) Hypothyroidism; Translations: [Hypothyroidism, unspecified] Onset: 7 11-09-2017 Chronic Unclassified (2 sources) Finding of sensation of bladder 12-08-2019 Urinary tract infections (2 sources) Postinfective urethral stricture of female 08-06-2020 Episodic Past or Other Problems Problem Classification Problem Date Documented Date Episodic/Chronic Headache, including migraine (2 sources) Headache; Translations: [Chronic headache disorder] Onset: 09-27-2016 11-09-2017 Episodic Other aftercare (1 source) Polypharmacy ; Translations: [Other terminal make up operator (current) drug therapy] Onset: 09-27-2016 09-27-2016 Episodic Other circulatory disease (2 sources) Elevated blood-pressure reading, without diagnosis of hypertension; Translations: [Elevated blood-pressure reading, without diagnosis of hypertension] Onset: 10-21-2017 Episodic Other circulatory disease (1 source) History of cerebrovascular accident; Translations: [Personal history of transient ischemic attack (TIA), and cerebral infarction without residual deficits] Onset: 09-27-2016 09-27-2016 Episodic Other connective tissue disease (1 source) Primary fibromyalgia syndrome; Translations: [Fibromyalgia, primary] 11-09-2017 Episodic Other nervous system disorders (1 source) Disorder of brain; Translations: [Encephalopathy, unspecified] Resolved: 09-27-2016 09-27-2016 Chronic Residual codes; unclassified (2 sources) Other specified personal risk factors, not elsewhere classified; Translations: [Other specified personal risk factors, not elsewhere classified] Onset: 10-21-2017 Episodic Residual codes; unclassified (2 sources) Insomnia, unspecified; Translations: [Insomnia, unspecified] Onset: 10-21-2017 Episodic Unclassified (1 source) Personal history of other medical treatment; Translations: [History of blood transfusion] 11-09-2017 Episodic Results Test Name Value Interpretation Reference Range Facility Ambulatory Visit Summaryon 0 09-14-2023 Ambulatory Visit Summary NOEMI CABALLERO :1960 Visit Date:09/14/2023 Ambulatory Visit Instructions Your Diagnosis Feeling of incomplete bladder emptying Tests Performed Urnls Dip Stick Auto w/o Microscopy POC 40606 Your Care Team Attending Physician - DIANA MCNEIL PA-C Primary Care Physician - ALEXANDER CHEN DO This Is Your Medications List APAP/butalbital/caff eine/codeine (acetaminophen/butal bital/caffeine/codei ne 300 mg-50 mg-40 mg-30 mg oral capsule) Misc Prescription (BACLOFEN 10 MG TABLET) albuterol aspirin (aspirin 81 mg oral tablet) atorvastatin (Lipitor 40 mg Tab) baclofen (baclofen 20 mg Tab) biotin (biotin 1000 mcg oral tablet) buPROPion (buPROPion 150 mg ER Tab) cholecalciferol (Vitamin D3) cyanocobalamin (Vitamin B12 1000 mcg Tab) famotidine (famotidine 40 mg Tab) ferrous sulfate (FeroSul 325 mg oral tablet) fluticasone-salmeter ol (Advair HFA 230 mcg-21 mcg Aerosol) folic acid (folic acid 1 mg Tab) gabapentin (Neurontin 300 mg Cap) omega-3 polyunsaturated fatty acids (Fish Oil) pantoprazole (Pantoprazole [address] Tab) quetiapine (Seroquel) senna (senna 17.2 mg oral tablet) valsartan (valsartan 160 mg Tab) warfarin (Coumadin 5 mg Tab) zolpidem (Ambien 10 mg Tab) Procedures Performed Laparoscopic bilateral oophorectomy (07/08/2020), Cauterization of internal nose (02/06/2020), Cystourethroscopy with dilation of urethral stricture (03/10/2018), Hip replacement (2017), Cataract extraction (2015), Vena cava filter (2014), Diskectomy (2008), History of knee surgery (1997), Cystoscope (1987), Caesarean section (1986). What to do next Scheduled Follow-Up Appointments Wednesday 10:00 AM EST With: DIANA MCNEIL PA-C Where: [facility] RAD - MISCon 08-30-2023 RAD - MISC [id number] #1.00TIFF [facility] RAD - Ultrasound Reporton RAD - Ultrasound Report [id number] #1.00TIFF Normal [facility] RAD - MISCon 08-26-2023 RAD - MISC [id number] #1.00TIFF Normal [facility] RAD - Ultrasound Reporton RAD - Ultrasound Report [id number] #1.00TIFF Normal [facility] Screenson 08-26-2023 Screens [id number] #1.00TIFF Normal [facility] Patient Educationon 08-25-20 Patient Education Nephrology Dietary Guidelines to Help Prevent Kidney Stones Kidney stones are deposits of minerals and salts that form inside your kidneys. Your risk of developing kidney stones may be greater depending on your diet, your lifestyle, the medicines you take, and whether you have certain medical conditions. Most people can lower their risks of developing kidney stones by following these dietary guidelines. Your dietitian may give you more specific instructions depending on your overall health and the type of kidney stones you tend to develop. What are tips for following this plan? Reading food labels ? Choose foods with no salt added or low-salt labels. Limit your salt (sodium) intake to less than 1,500 mg a day. ? Choose foods with calcium for each meal and snack. Try to eat about 300 mg of calcium at each meal. Foods that contain 200?500 mg of calcium a serving include: ? 8 oz (237 mL) of milk, calcium-fortifiednon -dairy milk, and calcium-fortifiedfru it juice. Calcium-fortified means that calcium has been added to these drinks. ? 8 oz (237 mL) of kefir, yogurt, and soy yogurt. ? 4 oz (114 g) of tofu. ? 1 oz (28 g) of cheese. ? 1 cup (150 g) of dried figs. ? 1 cup (91 g) of cooked broccoli. ? One 3 oz (85 g) can of sardines or mackerel. Most people need 1,000?1,500 mg of calcium a day. Talk to your dietitian about how much calcium is recommended for you. Shopping ? Buy plenty of fresh fruits and vegetables. Most people do not need to avoid fruits and vegetables, even if these foods contain nutrients that may contribute to kidney stones. ? When shopping for convenience foods, choose: ? Whole pieces of fruit. ? Pre-made salads with dressing on the side. ? Low-fat fruit and yogurt smoothies. ? Avoid buying frozen meals or prepared deli foods. These can be high in sodium. ? Look for foods with live cultures, such as yogurt and kefir. ? Choose high-fiber grains, such as whole-wheat breads, oat bran, and wheat cereals. Cooking ? Do not add salt to food when cooking. Place a salt shaker on the table and allow each person to add their own salt to taste. ? Use vegetable protein, such as beans, textured vegetable protein (TVP), or tofu, instead of meat in pasta, casseroles, and soups. Meal planning ? Eat less salt, if told by your dietitian. To do this: ? Avoid eating processed or pre-made food. ? Avoid eating fast food. ? Eat less animal protein, including cheese, meat, poultry, or fish, if told by your dietitian. To do this: ? Limit the number of times you have meat, poultry, fish, or cheese each week. Eat a diet free of meat at least 2 days a week. ? Eat only one serving each day of meat, poultry, fish, or seafood. ? When you prepare animal proteins, cut pieces into small portion sizes. For most meat and fish, one serving is about the size of the palm of your hand. ? Eat at least five servings of fresh fruits and vegetables each day. To do this: ? Keep fruits and vegetables on hand for snacks. ? Eat one piece of fruit or a handful of berries with breakfast. ? Have a salad and fruit at lunch. ? Have two kinds of vegetables at dinner. ? You may be told to limit foods that are high in a substance called oxalate. These include: ? Spinach (cooked), rhubarb, beets, sweet potatoes, and [place] chard. ? Peanuts. ? Potato chips, kazakh fries, and baked potatoes with skin on. ? Nuts and nut products. ? Chocolate. ? If you regularly take a diuretic medicine, make sure to eat at least 1 or 2 servings of fruits or vegetables that are high in potassium each day. These include: ? Avocado. ? Banana. ? Spink, prune, carrot, or tomato juice. ? Baked potato. ? Cabbage. ? Beans and split peas. Lifestyle ? Drink enough fluid to keep your urine pale yellow. This is the most important thing you can do. Spread your fluid intake throughout the day. ? If you drink alcohol: ? Limit how much you have to: ? 0?1 drink a day for women who are not . ? 0?2 drinks a day for men. ? Know how much alcohol is in your drink. In the [place] one drink equals one 12 oz bottle of beer (355 mL), one 5 oz glass of wine (148 mL), or one 1? oz glass of hard liquor (44 mL). ? Lose weight if told by your health care provider. Work with your dietitian to find an eating plan and weight loss strategies that work best for you. General information ? Talk to your health care provider and dietitian about taking daily supplements. Depending on your health and the cause of your kidney stones, you may be told: ? Do not take high-dose supplements of vitamin C (1,000 mg a day or more). ? To take a calcium supplement. ? To take a daily probiotic supplement. ? To take other supplements such as magnesium, fish oil, or vitamin B6. ? Take bbji-yog-xbduzwj and prescription medicines only as told by your health care provider. These include supplements. What foods sh (more content not included)... Normal [facility] Reminderson 08-25-2023 Reminders - From: Franchesca Gracia To: JOSUE - Kartik Mcneil; Sent: 08/25/2023 13:41:26 EST Show up: 06/25/2024 14:41:00 EDT Subject: Imaging Due Date/Time: 08/25/2024 13:41:00 EST Pt is to get LUCY and KUB done prior to appt. Pt prefers [facility]. Normal [facility] Urology Office/Clinic Noteon 12-13-2023 Urology Office/Clinic Note Chief Complaint 1yr LUCY & KUB HPI Staff Former DLS pt- Last OV 08/25/22 1yr LUCY & KUB DX: Kidney Stone *No Urology Meds LUCY &KUB done- 08/24/23 Previous DX; Kidney stones Denies symptoms of Kidney Stones. Denies blood in urine. Denies all urinary complaints. No concerns at this time. History of Present Illness staff HPI reviewed and agree. Review of Systems PHQ Score Initial Depression Screen Score: 0 SCORE no fever, chills, malaise, myalgia. no rash/lesions. no chest pain, palpitations, or SOB. no abdominal pain, nausea, vomiting. no unilateral calf swelling, redness, pain Physical Exam Vitals & Measurements HR: 69(Peripheral) RR: 16 BP: 132/70 HT: 65 in HT: 165 cm WT: 97 kg WT: 213.4 lb BMI: 35.63 General: nontoxic, NAD Mouth: moist mucosa Lungs: normal respiratory effort Cardio: regular rate, good distal perfusion Abdomen: nondistended, no suprapubic distention or tenderness, no CVA tenderness Neurologic: Grossly normal Skin: No rashes or suspicious lesions Assessment/Plan 1. Kidney stone (N20.0: Calculus of kidney) Has passed 5 stones in her life. most recent was Nov 2019 and pt passed this stone. KUB 08/07/22 shows no stones but obscured by stool. KUB 08/24/23 - no stones noted, +constipation LUCY 08/24/23 - bilat stones measuring up to 6mm in the Rt and 4mm in the Lt kidney. no hydro. Discussed imaging results with pt. Denies blood in urine. Denies recent infection. No UTIs this past year. UA today is negative for blood and infection. Pt states that she has BL flank pain for the past few weeks-months and didn't know if was caused by stones or not, has seen her pain management doctor. Advised pt that the pain is not likely caused by her kidney stones due to there not being any hydro on recent US, size/location of stones, and the fact that pain is bilat. However, advised pt that if her pain persists, she can let us know and we can always get a CT done to be sure. Discussed doing a metabolic workup in the future if the pt would like, declines at this time. Counseled pt on dietary modifications to prevent future stones. Follow up in 1 yr w/LUCY and KUB. All questions/concerns were discussed. Pt to call the office if she encounters any issues prior. Pt acknowledges understanding. -Will order KUB and LUCY. [facility] -Dietary modifications. 2. Urinary leakage (R32: Unspecified urinary incontinence) Pt states that she leaks a little bit when she is done voiding. Doesn't wait too long in-between voids but can hold it about 2 hrs. Urgency isn't too severe. Minimal DARIAN. Pt states that she wears a pad during the day, most days. Discussed starting a med to help with this sxs. Risks/benefits/side effects discussed. Pt states that she would like wait to start meds at this time, sx not bothersome enough to warrant tx. Will monitor. Follow-up With When Contact Information EWA SAPP, DIANA Miller, URL In 1 year [address] [facility] [place] [address] Additional Instructions: w/KUB and LUCY Patient Education Dietary Guidelines to Help Prevent Kidney Stones IFranchesca, personally scribed for Diana Mcneil PA-C on 08/25/2023 13:39:52. . Documentation recorded by the franchescaibpaul Gracia accurately reflects the services(s) I performed and decisions made by me. Authenticated by Diana Mcneil PA-C on 08/25/2023 13:48:56. Problem List/Past Medical History Ongoing Anemia Antiphospholipid syndrome Asthma Bipolar disorder Cerebrovascular accident Depression Feeling of incomplete bladder emptying Fibromyalgia Flank pain Gross hematuria H/O deep venous thrombosis H/O urinary tract infection Cristi's disease Hematuria, microscopic Hypothyroidism Kidney stone Lupus anticoagulant disorder Migraine Nocturia Optic neuritis Post-void dribbling Postinfective urethral stricture in female Urinary leakage Weak urine stream Historical No qualifying data Procedure/Surgical History Laparoscopic bilateral oophorectomy (07/08/2020), Cauterization of internal nose (02/06/2020), Cystourethroscopy with dilation of urethral stricture (03/10/2018), Hip replacement (2017), Cataract extraction (2015), Vena cava filter (2014), Diskectomy (2008), History of knee surgery (1997), Cystoscope (1987), Caesarean section (1986). Medications acetaminophen/butalb ital/caffeine/codein e 300 mg-50 mg-40 mg-30 mg oral capsule, 2 cap(s), Oral, PRN Advair HFA 230 mcg-21 mcg Aerosol, 2 puff(s), Inhalation, BID albuterol, 2.5 mg, NEB Ambien 10 mg Tab, 10 mg= 1 tab(s), Oral, Once a day (at bedtime), PRN aspirin 81 mg oral tablet, Oral, Daily BACLOFEN 10 MG TABLET, 0 baclofen 20 mg Tab, 20 mg= 1 tab(s), Oral, QID biotin 1000 mcg oral tablet, 2000 mcg= 2 tab(s), Oral, Daily buPROPion 150 mg ER Tab, Oral, BID Coumadin 5 mg Tab, 5 mg= 1 tab(s), Oral, Daily famotidine 40 mg Tab FeroSul 325 mg oral tab (more content not included)... Normal [facility] Comment on above: Result Comment: Elec tronically Signed By: DIANA MCNEIL PA-C\.br\Date and Time Signed: 08/25/23 13:49 EST\.br\Electronically Co-Signed By: Franchesca Gracia\.br\Date and Time Co-Signed: 08/25/23 13:40 EST Pain Management Office/Clini c Noteon 08-10-2023 Pain Management Office/Clinic Note Chief Complaint mid back pain History of Present Illness Patient presents today for evaluation regarding chronic thoracic back pain. Patient underwent a bilateral L4-5, L5-S1 radiofrequency ablation 07/05/2023 reports 90% improvement of her low back pain. Patient reports thoracic pain is her most significant concern on today's encounter. Historically, patient has garnered greater than 80% improvement of her current thoracic pain with T9-10 TFESI with relief lasting greater than 3 months Patient has engaged in a 6 week course of provider directed, home based physiological therapies within the last 3 months. In addition, a six-week trial of activity modification has failed to give reprieve. Patient has also failed to respond optimally to oral analgesic regimen Oswestry Disability Form Day Progresses Behavior: Worse PM Pain Intensity: The pain is very severe at the moment PM Behavior: Worse PM Personal Care: It is painful to look after myself and I am slow and careful Pain location and laterality: mid back pain PM Sitting: Pain prevents me from sitting more than one hour Pain quality: Unable to describe PM Pain Lifting: Pain prevents me from lifting heavy weights, but I can manage light to medium weights if they are convieniently positioned Pain Pattern: Intermittent PM Walking: Pain prevents me from walking more than 100 yards Pain rate at rest: 0 PM Standing: I can stand as long as I want, but it gives me extra pain Pain rate with activity: 8 PM Sleeping: My sleep is occasionally disturbed by pain Heat: Alleviating PM Sex Life: My sex life is normal and causes no pain/NA Lying: Alleviating PM Social Life: My social life is normal, but increases the degree of pain Performance of ADL's: Aggravating PM Traveling: I can travel anywhere but it gives me extra pain Sensory impairment location: patient denies PM Oswestry Score: 36 Pain since last visit: Improved PM Oswestry Score Interpretation: 21% to 40% Moderate Disability: The patient experiences more pain and difficulty with travel, social life, sitting, lifting and standing, and may be disabled from work. The patient can usually be managed by conservative means. Procedure 1: Radiofrequency Ablation Procedure Date 1: 07/05/23 Procedure Comments 1: bilateral L4-5, L5-S1 Pain Improvement 1: Significant (70-100% relief) Pain Improvement Comments 1: 90% relief Was procedure beneficial 1: Yes Date Tens: n/a Date Chiropractor: hx of Date PT: hx of Frequency PT: 3 weeks Effective PT: helps Comments PT: HEP stretching Date Injections: 07/05/23 Frequency Injections: PRN Effective Injections: 90% relief Comments Injections: bilateral L4-5, L5-S1 RFA Date Surgery: Hx Frequency Surgery: x1, x1,x1 Effective Surgery: neck 2009 , thorcaic 2018, & lumbar surgery 1994 Comments Surgery: 05/2019 T9-10 @ [facility] Recent testing: No Loss of bladder/bowel: Denies Demeanor: Pleasant Distress: None Appearance: Appropriate Cognitive impairment: No Feels safe at home: Yes Suicidal/homicidal ideation: No Review of Systems A review of systems was conducted and noted to be negative to the patients presenting complaint unless delineated in HPI. Full details are available on form PM-82 completed by the patient and added to the record on today?s date Denies loss of control of bowel and bladder or saddle paresthesia. Denies suicidal ideation or plan Physical Exam Vitals & Measurements HR: 84 (Peripheral) RR: 16 BP: 138/89 HT: 164 cm WT: 97.5 kg (Estimated) BMI: 36.25 General -Appears stated age. No apparent distress. Psychological - Normal mood and affect. HEENT - Normocephalic/Atraum atic Neurologic-alert and oriented x4 Respiratory - No obvious distress, No shortness of breath. Dysesthesia light touch T9, 10 dermatomal pattern Additional Vitals BP Position/Location: Sitting Assessment/Plan Low back pain Lumbosacral spondylosis Patient has chronic low back pain secondary to lumbosacral spondylosis. Patient reports significant treatment of low back pain following lumbar RFA Thoracic neuritis Patient has neurogenic discomfort secondary to disc and spondylitic reactivity precipitating neural foraminal narrowing and lateral recess stenosis. For complaints that have failed conservative measures, candidacy has been established for epidural steroid blockade transforaminal approach for diagnostic and potential therapeutic benefit. Risks benefits alternatives have been discussed, we agree to proceed. Patient be scheduled for a bilateral T9-10 TFESI under fluoroscopic guidance and attempts to palliate neuropathic pain Medical Decision Making Chronic conditions NOT treated during this visit that affected my overall medical decision making: [depression] I have reviewed the patient?s medication list for medication interactions/contrai ndications and/or for upcoming procedures: [yes] Physician Comments Note dictated with voice recognition system. Pl (more content not included)... Normal [facility] Complement C3on 06-25-2023 Complement C3 139 mg/dL Normal 82-167 [facility] Comment on above: Result Comment: Perf ormed at: CB - [facility] [id number] [place], [place] [id number] Care Consultant: Thony Mcmillan PhD, Phone: [phone] Performed By: #### C BC, CMP, ESR, ADDONUAPLUS #### [facility] [address] #### C4, C3, CH50 #### [facility] , Complement C4on 06-25-2023 Complement C4 34 mg/dL Normal 12-38 [facility] Comment on above: Result Comment: PERF ORMED BY: [place] [address] PATHOLOGIST GAMING HOST SUSAN ZHENG M.D. Performed By: #### C BC, CMP, ESR, ADDONUAPLUS #### [address] #### C4, C3, CH50 #### [facility] , Complement Total (CH50)on Complement Total (CH50) >60 Normal >41 [facility] Comment on above: Result Comment: Age Male Female 1 - 30 days Not Estab. Not Estab. 31 days - 6 months >32 >20 7 months - 17 years >39 >39 >17 years >41 >41 NOTE: The adult ( >17 years ) reference interval range is used to flag abnormals on this report. If the patient is 17 years old or younger, use the table above to determine out of range values. Performed at: - [facility] [address] [id number] Care Consultant: Thony Mcmillan PhD, Phone: [phone] PERFORMED BY: [place] [address] PATHOLOGIST GAMING HOST SUSAN ZHENG M.D. Performed By: #### C BC, CMP, ESR, ADDONUAPLUS #### [address] #### C4, C3, CH50 #### [facility] , Complete Blood Count Auto Di ffon 06-25-2023 Basophils (Bld) [#/Vol] 0.0 10*3/uL Normal 0.0-0.2 [facility] Comment on above: Performed By: #### C BC, CMP, ESR, ADDONUAPLUS #### [address] #### C4, C3, CH50 #### [facility] , Basophils/100 WBC (Bld) 0.6 % Normal . [facility] Comment on above: Performed By: #### C BC, CMP, ESR, ADDONUAPLUS #### [place] [address] [place] #### C4, C3, CH50 #### [facility] , Eosinophils (Bld) [#/Vol] 0.1 10*3/uL Normal 0.0-0.45 [facility] Comment on above: Performed By: #### C BC, CMP, ESR, ADDONUAPLUS #### [address] #### C4, C3, CH50 #### [facility] , Eosinophils/100 WBC (Bld) 0.9 % Normal . [facility] Comment on above: Performed By: #### C BC, CMP, ESR, ADDONUAPLUS #### [place] [address] [place] #### C4, C3, CH50 #### [facility] , Erythrocyte distribution width (RBC) [Ratio] 14.8 % Normal 11.9-15.3 [facility] Comment on above: Performed By: #### C BC, CMP, ESR, ADDONUAPLUS #### [address] #### C4, C3, CH50 #### [facility] , Hematocrit (Bld) [Volume fraction] 40.3 % Normal 34.0-46.4 [facility] Comment on above: Performed By: #### C BC, CMP, ESR, ADDONUAPLUS #### [place] [address] [place] #### C4, C3, CH50 #### [facility] , Hemoglobin (Bld) [Mass/Vol] 13.4 g/dL Normal 11.8-15.4 [facility] Comment on above: Performed By: #### C BC, CMP, ESR, ADDONUAPLUS #### [place] [address] [place] #### C4, C3, CH50 #### [facility] , Lymphocytes (Bld) [#/Vol] 2.2 10*3/uL Normal 1.00-4.8 [facility] Comment on above: Performed By: #### C BC, CMP, ESR, ADDONUAPLUS #### [place] [address] [place] #### C4, C3, CH50 #### [facility] , Lymphocytes/100 WBC (Bld) 33.5 % Normal . [facility] Comment on above: Performed By: #### C BC, CMP, ESR, ADDONUAPLUS #### [address] #### C4, C3, CH50 #### [facility] , MCH (RBC) [Entitic mass] 30.0 pg Normal 24.7-34.3 [facility] Comment on above: Performed By: #### C BC, CMP, ESR, ADDONUAPLUS #### [address] #### C4, C3, CH50 #### [facility] , MCV (RBC) [Entitic vol] 90.5 fL Normal 80-100 [facility] Comment on above: Performed By: #### C BC, CMP, ESR, ADDONUAPLUS #### [place] [address] [place] #### C4, C3, CH50 #### [facility] , Mean Corpuscular HGB Conc 33.2 g/dL Normal 32.0-35.0 [facility] Comment on above: Performed By: #### C BC, CMP, ESR, ADDONUAPLUS #### [place] [address] [place] #### C4, C3, CH50 #### [facility] , Monocytes (Bld) [#/Vol] 0.8 10*3/uL Normal 0.0-0.8 [facility] Comment on above: Performed By: #### C BC, CMP, ESR, ADDONUAPLUS #### [facility] [address] [place] [address] #### C4, C3, CH50 #### [facility] , Monocytes/100 WBC (Bld) 12.0 % Normal . [facility] Comment on above: Performed By: #### C BC, CMP, ESR, ADDONUAPLUS #### [facility] [address] [place] [address] [place] #### C4, C3, CH50 #### [facility] , Neutrophils (Bld) [#/Vol] 3.4 10*3/uL Normal 1.8-7.7 [facility] Comment on above: Performed By: #### C BC, CMP, ESR, ADDONUAPLUS #### [facility] [address] [place] [address] [place] #### C4, C3, CH50 #### [facility] , Neutrophils/100 WBC (Bld) 53.0 % Normal . [facility] Comment on above: Performed By: #### C BC, CMP, ESR, ADDONUAPLUS #### [facility] [address] [place] [address] [place] #### C4, C3, CH50 #### [facility] , NRBC% 0.1 /100{WBC} Normal 0-0.5 [facility] Comment on above: Performed By: #### C BC, CMP, ESR, ADDONUAPLUS #### [facility] [address] [place] [address] [place] #### C4, C3, CH50 #### [facility] , Platelet mean volume (Bld) [Entitic vol] 8.9 fL Normal 6.3-10.7 [facility] Comment on above: Performed By: #### C BC, CMP, ESR, ADDONUAPLUS #### [address] #### C4, C3, CH50 #### [facility] , Platelets (Bld) [#/Vol] 243 10*3/uL Normal 150-450 [facility] Comment on above: Performed By: #### C BC, CMP, ESR, ADDONUAPLUS #### [facility] [address] [place] [address] #### C4, C3, CH50 #### [facility] , RBC (Bld) [#/Vol] 4.45 10*6/uL Normal 3.60-5.00 [facility] Comment on above: Performed By: #### C BC, CMP, ESR, ADDONUAPLUS #### [address] #### C4, C3, CH50 #### [facility] , WBC (Bld) [#/Vol] 6.5 10*3/uL Normal 3.8-11.6 [facility] Comment on above: Performed By: #### C BC, CMP, ESR, ADDONUAPLUS #### [address] #### C4, C3, CH50 #### [facility] , Comprehensive Metabolic Pane ifrah 06-25-2023 Albumin [Mass/Vol] 4.2 g/dL Normal 3.5-5.7 [facility] Comment on above: Performed By: #### C BC, CMP, ESR, ADDONUAPLUS #### [facility] [address] [place] [address] [place] #### C4, C3, CH50 #### [facility] , Albumin/Globulin [Mass ratio] 1.8 {ratio} Normal [facility] Comment on above: Performed By: #### C BC, CMP, ESR, ADDONUAPLUS #### [address] #### C4, C3, CH50 #### [facility] , ALP [Catalytic activity/Vol] 86 U/L Normal 34-104 [facility] Comment on above: Result Comment: PERF ORMED BY: [place] [address] PATHOLOGIST GAMING HOST SUSAN ZHENG M.D. Performed By: #### C BC, CMP, ESR, ADDONUAPLUS #### [address] #### C4, C3, CH50 #### [facility] , ALT [Catalytic activity/Vol] 19 U/L Normal 7-52 [facility] Comment on above: Performed By: #### C BC, CMP, ESR, ADDONUAPLUS #### [address] #### C4, C3, CH50 #### [facility] , Anion gap [Moles/Vol] 10.5 mmol/L Normal 6.0-15.0 [facility] Comment on above: Performed By: #### C BC, CMP, ESR, ADDONUAPLUS #### [address] #### C4, C3, CH50 #### [facility] , AST [Catalytic activity/Vol] 16 U/L Normal 13-39 [facility] Comment on above: Performed By: #### C BC, CMP, ESR, ADDONUAPLUS #### [place] [address] [place] #### C4, C3, CH50 #### [facility] , Bilirubin [Mass/Vol] 0.3 mg/dL Normal 0.3-1.0 [facility] Comment on above: Performed By: #### C BC, CMP, ESR, ADDONUAPLUS #### [address] [place] [address] [place] #### C4, C3, CH50 #### [facility] , Calcium [Mass/Vol] 9.2 mg/dL Normal 8.6-10.3 [facility] Comment on above: Performed By: #### C BC, CMP, ESR, ADDONUAPLUS #### [facility] [address] [place] [address] [place] #### C4, C3, CH50 #### [facility] , Chloride [Moles/Vol] 102 mmol/L Normal 98-107 [facility] Comment on above: Performed By: #### C BC, CMP, ESR, ADDONUAPLUS #### [address] #### C4, C3, CH50 #### [facility] , CO2 [Moles/Vol] 30.5 mmol/L Normal 21.0-31.0 [facility] Comment on above: Performed By: #### C BC, CMP, ESR, ADDONUAPLUS #### [place] [address] [place] #### C4, C3, CH50 #### [facility] , Creatinine [Mass/Vol] 0.96 mg/dL Normal 0.60-1.20 [facility] Comment on above: Performed By: #### C BC, CMP, ESR, ADDONUAPLUS #### [place] [address] [place] #### C4, C3, CH50 #### [facility] , GFR/1.73 sq M.predicted MDRD (S/P/Bld) [Vol rate/Area] mL/min/{1.73_m2} Normal [facility] Comment on above: Performed By: #### C BC, CMP, ESR, ADDONUAPLUS #### [facility] [address] [place] [address] [place] #### C4, C3, CH50 #### [facility] , Globulin (S) [Mass/Vol] 2.4 g/dL Normal [facility] Comment on above: Performed By: #### C BC, CMP, ESR, ADDONUAPLUS #### [address] #### C4, C3, CH50 #### [facility] , Glucose [Mass/Vol] 110 mg/dL High 70-100 [facility] Comment on above: Result Comment: [facility] Glucose Reference Range is dependent on time and content of last meal. Glucose of more than 200 mg/dL in a nonstressed, ambulatory subject supports the diagnosis of Diabetes Mellitus. ADA recommended reference range Performed By: #### C BC, CMP, ESR, ADDONUAPLUS #### [address] #### C4, C3, CH50 #### [facility] , Potassium [Moles/Vol] 4.0 mmol/L Normal 3.5-5.1 [facility] Comment on above: Performed By: #### C BC, CMP, ESR, ADDONUAPLUS #### [place] [address] [place] #### C4, C3, CH50 #### [facility] , Protein [Mass/Vol] 6.6 g/dL Normal 6.4-8.9 [facility] Comment on above: Performed By: #### C BC, CMP, ESR, ADDONUAPLUS #### [place] [address] [place] #### C4, C3, CH50 #### [facility] , Sodium [Moles/Vol] 139 mmol/L Normal 136-145 [facility] Comment on above: Performed By: #### C BC, CMP, ESR, ADDONUAPLUS #### [place] [address] [place] #### C4, C3, CH50 #### [facility] , Urea nitrogen [Mass/Vol] 19 mg/dL Normal 7-25 [facility] Comment on above: Performed By: #### C BC, CMP, ESR, ADDONUAPLUS #### [facility] [address] [place] [address] #### C4, C3, CH50 #### [facility] , Dipstick and Microscopicon 1 Appearance (U) Clear Normal Clear [facility] Comment on above: Order Comment: Name Collection Type:: Clean-Voided Midstream Performed By: #### C BC, CMP, ESR, ADDONUAPLUS #### [facility] [address] [place] [address] #### C4, C3, CH50 #### [facility] , Bacteria,Urine None Seen Normal None Seen [facility] Comment on above: Order Comment: Name Collection Type:: Clean-Voided Midstream Performed By: #### C BC, CMP, ESR, ADDONUAPLUS #### [facility] [address] [place] [address] #### C4, C3, CH50 #### [facility] , Bilirubin,Urine Negative Normal Negative [facility] Comment on above: Order Comment: Name Collection Type:: Clean-Voided Midstream Performed By: #### C BC, CMP, ESR, ADDONUAPLUS #### [facility] [address] [place] [address] #### C4, C3, CH50 #### [facility] , Color (U) Yellow Normal Yellow [facility] Comment on above: Order Comment: Name Collection Type:: Clean-Voided Midstream Performed By: #### C BC, CMP, ESR, ADDONUAPLUS #### [facility] [address] [place] [address] #### C4, C3, CH50 #### [facility] , Glucose Ql (U) Normal Normal Normal [facility] Comment on above: Order Comment: Name Collection Type:: Clean-Voided Midstream Performed By: #### C BC, CMP, ESR, ADDONUAPLUS #### [address] #### C4, C3, CH50 #### [facility] , Hyaline Casts,Urine 0-8 Normal 0-8 [facility] Comment on above: Order Comment: Name Collection Type:: Clean-Voided Midstream Result Comment: PERF ORMED BY: [place] [address] PATHOLOGIST GAMING HOST SUSAN ZHENG M.D. Performed By: #### C BC, CMP, ESR, ADDONUAPLUS #### [address] #### C4, C3, CH50 #### [facility] , Ketones Ql (U) Negative Normal Negative [facility] Comment on above: Order Comment: Name Collection Type:: Clean-Voided Midstream Performed By: #### C BC, CMP, ESR, ADDONUAPLUS #### [address] #### C4, C3, CH50 #### [facility] , Leukocyte esterase Test strip Ql (U) 1+ High Negative [facility] Comment on above: Order Comment: Name Collection Type:: Clean-Voided Midstream Performed By: #### C BC, CMP, ESR, ADDONUAPLUS #### [address] #### C4, C3, CH50 #### [facility] , Nitrite,Urine Negative Normal Negative [facility] Comment on above: Order Comment: Name Collection Type:: Clean-Voided Midstream Performed By: #### C BC, CMP, ESR, ADDONUAPLUS #### [address] #### C4, C3, CH50 #### [facility] , Occult Blood,Urine Negative Normal Negative [facility] Comment on above: Order Comment: Name Collection Type:: Clean-Voided Midstream Performed By: #### C BC, CMP, ESR, ADDONUAPLUS #### [address] #### C4, C3, CH50 #### [facility] , pH (U) 5.5 [pH] Normal 5.0-9.0 [facility] Comment on above: Order Comment: Name Collection Type:: Clean-Voided Midstream Performed By: #### C BC, CMP, ESR, ADDONUAPLUS #### [address] #### C4, C3, CH50 #### [facility] , Protein,Urine Negative Normal Negative [facility] Comment on above: Order Comment: Name Collection Type:: Clean-Voided Midstream Performed By: #### C BC, CMP, ESR, ADDONUAPLUS #### [address] #### C4, C3, CH50 #### [facility] , RBC LM.HPF (Urine sed) [#/Area] 0 /[HPF] Normal 0-4 [facility] Comment on above: Order Comment: Name Collection Type:: Clean-Voided Midstream Performed By: #### C BC, CMP, ESR, ADDONUAPLUS #### [address] #### C4, C3, CH50 #### [facility] , Specificy [place],Urine 1.013 Normal 1.001-1.030 [facility] Comment on above: Order Comment: Name Collection Type:: Clean-Voided Midstream Performed By: #### C BC, CMP, ESR, ADDONUAPLUS #### [address] #### C4, C3, CH50 #### [facility] , Squamous Epithelial Cell,Urine None Seen Normal 0-2 [facility] Comment on above: Order Comment: Name Collection Type:: Clean-Voided Midstream Performed By: #### C BC, CMP, ESR, ADDONUAPLUS #### [address] #### C4, C3, CH50 #### [facility] , Urobilinogen,Urine Normal Normal Normal [facility] Comment on above: Order Comment: Name Collection Type:: Clean-Voided Midstream Performed By: #### C BC, CMP, ESR, ADDONUAPLUS #### [address] #### C4, C3, CH50 #### [facility] , WBC LM.HPF (Urine sed) [#/Area] 0 /[HPF] Normal 0-4 [facility] Comment on above: Order Comment: Name Collection Type:: Clean-Voided Midstream Performed By: #### C BC, CMP, ESR, ADDONUAPLUS #### [address] #### C4, C3, CH50 #### [facility] , Erythrocyte Sedimentation Ra roman 06-25-2023 ESR (Bld) [Velocity] 14 mm/h Normal 0-29 [facility] Comment on above: Result Comment: PERF ORMED BY: [place] [address] PATHOLOGIST GAMING HOST SUSAN ZHENG M.D. Performed By: #### C BC, CMP, ESR, ADDONUAPLUS #### [address] #### C4, C3, CH50 #### [facility] , Pain Management Office/Clini c Noteon 06-21-2023 Pain Management Office/Clinic Note Chief Complaint low back pain History of Present Illness Patient presents today for evaluation regarding chronic low back pain. Patient reports pain is severe enough once again to affect activities day living and quality of life. Historically, patient has garnered significant improvement of current pain with radiofrequency ablation L4-5, L5-S1 segment with greater than 80% improvement of pain lasting approximately 1.5 years with return to baseline at this time. Reports pain is severe enough at this time to affect activities day living and quality of life Patient has engaged in a 6 week course of provider directed, home based physiological therapies within the last 3 months. In addition, a six-week trial of activity modification has failed to give reprieve. Patient has also failed to respond optimally to oral analgesic regimen Opioid Risk Assessment Oswestry Disability Form AM Behavior: Better Family History of Substance Abuse: None PM Pain Intensity: The pain is fairly severe at the moment Day Progresses Behavior: Worse Personal History of Substance Abuse: None PM Personal Care: I can look after myself but it causes extra pain PM Behavior: Worse Age Between 16 and 45: No PM Sitting: I can only sit in my favorite chair as long as I like Pain location and laterality: low back pain History of Preadolescent Sexual Abuse: No PM Pain Lifting: I can lift very light weights Pain quality: Aching, Burning, Dull, Sharp Mental Health Condition: Yes PM Walking: Pain prevents me from walking more than 1/2 mile Pain Pattern: Intermittent Depression: Yes PM Standing: I can stand as long as I want, but it gives me extra pain Pain rate at rest: 0 Total Opioid Risk Score: 3 PM Sleeping: My sleep is occasionally disturbed by pain Pain rate with activity: 8 Total Score Risk Category: Low risk PM Sex Life: My sex life is normal and causes no pain/NA Bending: Aggravating PM Social Life: Pain has no significant effect on my social life apart from limiting my more energetic interests eg, sports Cold/Ice: Alleviating PM Traveling: I can travel anywhere but it gives me extra pain Lifting: Aggravating PM Oswestry Score: 32 Lying: Alleviating PM Oswestry Score Interpretation: 21% to 40% Moderate Disability: The patient experiences more pain and difficulty with travel, social life, sitting, lifting and standing, and may be disabled from work. The patient can usually be managed by conservative means. Pushing/Pulling: Aggravating Sitting: Alleviating Standing: Aggravating Walking: Aggravating Sensory impairment location: numbness/tingling a times right leg Pain since last visit: Worse Date Tens: n/a Date Chiropractor: hx Date PT: hx Frequency PT: 3 weeks Effective PT: helps Comments PT: HEP stretching Date Injections: prn Date Surgery: Hx Frequency Surgery: x1, x1,x1 Effective Surgery: neck 2008 , thorcaic 2018, & lumbar surgery 1994 Comments Surgery: 05/2019 T9-10 @ [facility] Recent testing: No Loss of bladder/bowel: Denies Demeanor: Pleasant Distress: None Appearance: Appropriate Cognitive impairment: No Feels safe at home: Yes Suicidal/homicidal ideation: No Family History of Substance Abuse: None Personal History of Substance Abuse: None Age Between 16 and 45: No History of Preadolescent Sexual Abuse: No Mental Health Condition: Yes Depression: Yes Total Opioid Risk Score: 3 Total Score Risk Category: Low risk Review of Systems A review of systems was conducted and noted to be negative to the patients presenting complaint unless delineated in HPI. Full details are available on form PM-82 completed by the patient and added to the record on today?s date Denies loss of control of bowel and bladder or saddle paresthesia. Denies suicidal ideation or plan Physical Exam Vitals & Measurements HR: 77 (Peripheral) RR: 16 BP: 125/82 HT: 165 cm General -Appears stated age. No apparent distress. Psychological - Normal mood and affect. HEENT - Normocephalic/Atraum atic Neurologic-alert and oriented x4 Respiratory - No obvious distress, No shortness of breath. Well-healed midline lumbar incision previous lumbar surgery Focus exam- is able to transition from sitting to standing without difficulty walks with a nonantalgic gait. Motor strength 5/5 in all areas assessed in the bilateral lower extremities. Sensory testing intact L1 through S1. Patient does report an increase in low back pain with lumbar facet loading maneuvers, concordant with pain symptoms, which localizes approximate L3 4, L4 5 and L5-S1 bilaterally Additional Vitals BP Position/Location: Sitting Assessment/Plan 1. Chronic low back pain 2. Lumbosacral spondylosis Patient meets criteria for repeat lumbar radiofrequency ablation at bilateral L4-5, L5-S1 on the basis of: 1. Patient underwent rhizotomy therapy of the bilateral L4-5, L5-S1 segment December, which afforded greater than 80% improvement of pain for d (more content not included)... Normal [facility] Alanine aminotransferase [En zymatic activity/volume] in Serum or PlasmaOrdered By: Contreras Mcmillan on 03-19-2023 ALT [Catalytic activity/Vol] 20 U/L 7-52 [facility] Albumin [Mass/volume] in Ser um or Plasma by Bromocresol green (BCG) dye binding methoOrdered By: Contreras Mcmillan on 03-19-2023 Albumin BCG dye [Mass/Vol] 4.1 g/dL 3.5-5.7 [facility] Alkaline phosphatase [Enzyma tic activity/volume] in Serum or PlasmaOrdered By: Contreras Mcmillan on 03-19-2023 ALP [Catalytic activity/Vol] 88 U/L 34-104 [facility] Aspartate aminotransferase [ Enzymatic activity/volume] in Serum or PlasmaOrdered By: Contreras Mcmillan on 03-19-2023 AST [Catalytic activity/Vol] 16 U/L 13-39 [facility] Automated epithelial cells c ount in urine sediment (number/area)Ordered By: Contreras Mcmillan on 03-19-2023 Epithelial cells Auto (Urine sed) [#/Area] 1-2 [HPF] 0-2 [facility] Automated erythrocytes count in urine sediment (number/area)Ordered By: Contreras Mcmillan on 03-19-2023 RBC Auto (Urine sed) [#/Area] 0-1 [HPF] 0-4 [facility] Automated leukocytes count i n urine sediment (number/area)Ordered By: Contreras Mcmillan on 03-19-2023 WBC Auto (Urine sed) [#/Area] 1-2 [HPF] 0-4 [facility] Automated urine hyaline cast s count (number/volume)Ordered By: Contreras Mcmillan on 03-19-2023 Hyaline casts Auto (U) [#/Vol] None seen [LPF] 0-1 [facility] Basophils Auto (Bld) [#/Vol] Ordered By: Contreras Mcmillan on 03-19-2023 Basophils (Bld) [#/Vol] 0.0 10*3/uL 0.0-0.2 [facility] Basophils/100 WBC Auto (Bld) Ordered By: Contreras Mcmillan on 03-19-2023 Basophils/100 WBC (Bld) 0.6 % . [facility] Bilirubin Test strip Ql (U)O rdered By: Contreras Crainrow on 03-19-2023 Bilirubin Ql (U) Negative Negative [facility] Bilirubin.total [Mass/volume ] in Serum or PlasmaOrdered By: Contreras Mcmillan on 03-19-2023 Bilirubin [Mass/Vol] 0.3 mg/dL 0.3-1.0 [facility] Calcium [Mass/volume] in Ser um or PlasmaOrdered By: Contreras Mcmillan on 03-19-2023 Calcium [Mass/Vol] 9.1 mg/dL 8.6-10.3 [facility] Carbon dioxide, total [Moles /volume] in Serum or PlasmaOrdered By: Contreras Mcmillan on 03-19-2023 CO2 [Moles/Vol] 28.5 mmol/L 21.0-31.0 [facility] Chloride [Moles/volume] in S josé miguel or PlasmaOrdered By: Contreras Mcmillan on 03-19-2023 Chloride [Moles/Vol] 104 mmol/L 98-107 [facility] Color Auto (U)Ordered By: Jennifer Mcmillan on 03-19-2023 Color (U) Yellow Yellow [facility] Complement C3on 03-19-2023 Complement C3 161 mg/dL Normal 82-167 [facility] Comment on above: Result Comment: Perf ormed at: CB - [facility] [address] [id number] Care Consultant: Thony Mcmillan PhD, Phone: [phone] Performed By: #### C BC, CMP, ESR, ADDONUAPLUS #### [place] [address] [place] #### C4, C3, CH50 #### [facility] , Complement C4on 03-19-2023 Complement C4 40 mg/dL High 12-38 [facility] Comment on above: Result Comment: PERF ORMED BY: [place] [address] PATHOLOGIST GAMING HOST SUSAN ZHENG M.D. Performed By: #### C BC, CMP, ESR, ADDONUAPLUS #### [address] #### C4, C3, CH50 #### [facility] , Complement Total (CH50)on Complement Total (CH50) >60 Normal >41 [facility] Comment on above: Result Comment: Age Male Female 1 - 30 days Not Estab. Not Estab. 31 days - 6 months >32 >20 7 months - 17 years >39 >39 >17 years >41 >41 NOTE: The adult ( >17 years ) reference interval range is used to flag abnormals on this report. If the patient is 17 years old or younger, use the table above to determine out of range values. Performed at: [facility] [id number] Care Consultant: Thony Mcmillan PhD, Phone: [phone] PERFORMED BY: [place] [address] PATHOLOGIST GAMING HOST SUSAN ZHENG M.D. Performed By: #### C BC, CMP, ESR, ADDONUAPLUS #### [address] #### C4, C3, CH50 #### [facility] , Complete Blood Count Auto Di ffon 03-19-2023 Basophils (Bld) [#/Vol] 0.0 10*3/uL Normal 0.0-0.2 [facility] Comment on above: Performed By: #### C BC, CMP, ESR, ADDONUAPLUS #### [address] #### C4, C3, CH50 #### [facility] , Basophils/100 WBC (Bld) 0.6 % Normal . [facility] Comment on above: Performed By: #### C BC, CMP, ESR, ADDONUAPLUS #### [address] #### C4, C3, CH50 #### [facility] , Eosinophils (Bld) [#/Vol] 0.1 10*3/uL Normal 0.0-0.45 [facility] Comment on above: Performed By: #### C BC, CMP, ESR, ADDONUAPLUS #### [place] [address] [place] #### C4, C3, CH50 #### [facility] , Eosinophils/100 WBC (Bld) 1.5 % Normal . [facility] Comment on above: Performed By: #### C BC, CMP, ESR, ADDONUAPLUS #### [address] #### C4, C3, CH50 #### [facility] , Erythrocyte distribution width (RBC) [Ratio] 14.8 % Normal 11.9-15.3 [facility] Comment on above: Performed By: #### C BC, CMP, ESR, ADDONUAPLUS #### [place] [address] [place] #### C4, C3, CH50 #### [facility] , Hematocrit (Bld) [Volume fraction] 39.2 % Normal 34.0-46.4 [facility] Comment on above: Performed By: #### C BC, CMP, ESR, ADDONUAPLUS #### [facility] [address] [place] [address] [place] #### C4, C3, CH50 #### [facility] , Hemoglobin (Bld) [Mass/Vol] 12.9 g/dL Normal 11.8-15.4 [facility] Comment on above: Performed By: #### C BC, CMP, ESR, ADDONUAPLUS #### [place] [address] [place] #### C4, C3, CH50 #### [facility] , Lymphocytes (Bld) [#/Vol] 1.8 10*3/uL Normal 1.00-4.8 [facility] Comment on above: Performed By: #### C BC, CMP, ESR, ADDONUAPLUS #### [facility] [address] [place] [address] #### C4, C3, CH50 #### [facility] , Lymphocytes/100 WBC (Bld) 23.7 % Normal . [facility] Comment on above: Performed By: #### C BC, CMP, ESR, ADDONUAPLUS #### [address] #### C4, C3, CH50 #### [facility] , MCH (RBC) [Entitic mass] 29.7 pg Normal 24.7-34.3 [facility] Comment on above: Performed By: #### C BC, CMP, ESR, ADDONUAPLUS #### [address] #### C4, C3, CH50 #### [facility] , MCV (RBC) [Entitic vol] 90.5 fL Normal 80-100 [facility] Comment on above: Performed By: #### C BC, CMP, ESR, ADDONUAPLUS #### [address] #### C4, C3, CH50 #### [facility] , Mean Corpuscular HGB Conc 32.8 g/dL Normal 32.0-35.0 [facility] Comment on above: Performed By: #### C BC, CMP, ESR, ADDONUAPLUS #### [place] [address] [place] #### C4, C3, CH50 #### [facility] , Monocytes (Bld) [#/Vol] 0.8 10*3/uL Normal 0.0-0.8 [facility] Comment on above: Performed By: #### C BC, CMP, ESR, ADDONUAPLUS #### [address] [place] [address] [place] #### C4, C3, CH50 #### [facility] , Monocytes/100 WBC (Bld) 10.1 % Normal . [facility] Comment on above: Performed By: #### C BC, CMP, ESR, ADDONUAPLUS #### [facility] [address] [place] [address] [place] #### C4, C3, CH50 #### [facility] , Neutrophils (Bld) [#/Vol] 4.9 10*3/uL Normal 1.8-7.7 [facility] Comment on above: Performed By: #### C BC, CMP, ESR, ADDONUAPLUS #### [address] #### C4, C3, CH50 #### [facility] , Neutrophils/100 WBC (Bld) 64.1 % Normal . [facility] Comment on above: Performed By: #### C BC, CMP, ESR, ADDONUAPLUS #### [place] [address] [place] #### C4, C3, CH50 #### [facility] , NRBC% 0.1 /100{WBC} Normal 0-0.5 [facility] Comment on above: Performed By: #### C BC, CMP, ESR, ADDONUAPLUS #### [place] [address] [place] #### C4, C3, CH50 #### [facility] , Platelet mean volume (Bld) [Entitic vol] 8.5 fL Normal 6.3-10.7 [facility] Comment on above: Performed By: #### C BC, CMP, ESR, ADDONUAPLUS #### [place] [address] [place] #### C4, C3, CH50 #### [facility] , Platelets (Bld) [#/Vol] 251 10*3/uL Normal 150-450 [facility] Comment on above: Performed By: #### C BC, CMP, ESR, ADDONUAPLUS #### [facility] [address] [place] [address] [place] #### C4, C3, CH50 #### [facility] , RBC (Bld) [#/Vol] 4.33 10*6/uL Normal 3.60-5.00 [facility] Comment on above: Performed By: #### C BC, CMP, ESR, ADDONUAPLUS #### [address] #### C4, C3, CH50 #### [facility] , WBC (Bld) [#/Vol] 7.7 10*3/uL Normal 3.8-11.6 [facility] Comment on above: Performed By: #### C BC, CMP, ESR, ADDONUAPLUS #### [address] #### C4, C3, CH50 #### [facility] , Comprehensive Metabolic Pane ifrah 03-19-2023 Albumin [Mass/Vol] 4.1 g/dL Normal 3.5-5.7 [facility] Comment on above: Performed By: #### C BC, CMP, ESR, ADDONUAPLUS #### [facility] [address] [place] [address] [place] #### C4, C3, CH50 #### [facility] , Albumin/Globulin [Mass ratio] 1.6 {ratio} Normal [facility] Comment on above: Performed By: #### C BC, CMP, ESR, ADDONUAPLUS #### [facility] [address] [place] [address] [place] #### C4, C3, CH50 #### [facility] , ALP [Catalytic activity/Vol] 88 U/L Normal 34-104 [facility] Comment on above: Result Comment: PERF ORMED BY: [place] [address] PATHOLOGIST GAMING HOST SUSAN ZHENG M.D. Performed By: #### C BC, CMP, ESR, ADDONUAPLUS #### [address] #### C4, C3, CH50 #### [facility] , ALT [Catalytic activity/Vol] 20 U/L Normal 7-52 [facility] Comment on above: Performed By: #### C BC, CMP, ESR, ADDONUAPLUS #### [address] #### C4, C3, CH50 #### [facility] , Anion gap [Moles/Vol] 10.5 mmol/L Normal 6.0-15.0 [facility] Comment on above: Performed By: #### C BC, CMP, ESR, ADDONUAPLUS #### [address] #### C4, C3, CH50 #### [facility] , AST [Catalytic activity/Vol] 16 U/L Normal 13-39 [facility] Comment on above: Performed By: #### C BC, CMP, ESR, ADDONUAPLUS #### [address] #### C4, C3, CH50 #### [facility] , Bilirubin [Mass/Vol] 0.3 mg/dL Normal 0.3-1.0 [facility] Comment on above: Performed By: #### C BC, CMP, ESR, ADDONUAPLUS #### [facility] [address] [place] [address] [place] #### C4, C3, CH50 #### [facility] , Calcium [Mass/Vol] 9.1 mg/dL Normal 8.6-10.3 [facility] Comment on above: Performed By: #### C BC, CMP, ESR, ADDONUAPLUS #### [facility] [address] [place] [address] [place] #### C4, C3, CH50 #### [facility] , Chloride [Moles/Vol] 104 mmol/L Normal 98-107 [facility] Comment on above: Performed By: #### C BC, CMP, ESR, ADDONUAPLUS #### [facility] [address] [place] [address] [place] #### C4, C3, CH50 #### [facility] , CO2 [Moles/Vol] 28.5 mmol/L Normal 21.0-31.0 [facility] Comment on above: Performed By: #### C BC, CMP, ESR, ADDONUAPLUS #### [place] [address] [place] #### C4, C3, CH50 #### [facility] , Creatinine [Mass/Vol] 1.02 mg/dL Normal 0.60-1.20 [facility] Comment on above: Performed By: #### C BC, CMP, ESR, ADDONUAPLUS #### [facility] [address] [place] [address] [place] #### C4, C3, CH50 #### [facility] , GFR/1.73 sq M.predicted MDRD (S/P/Bld) [Vol rate/Area] mL/min/{1.73_m2} Normal [facility] Comment on above: Performed By: #### C BC, CMP, ESR, ADDONUAPLUS #### [facility] [address] [place] [address] [place] #### C4, C3, CH50 #### [facility] , Globulin (S) [Mass/Vol] 2.5 g/dL Normal [facility] Comment on above: Performed By: #### C BC, CMP, ESR, ADDONUAPLUS #### [address] #### C4, C3, CH50 #### [facility] , Glucose [Mass/Vol] 100 mg/dL Normal 70-100 [facility] Comment on above: Result Comment: [place] Glucose Reference Range is dependent on time and content of last meal. Glucose of more than 200 mg/dL in a nonstressed, ambulatory subject supports the diagnosis of Diabetes Mellitus. ADA recommended reference range Performed By: #### C BC, CMP, ESR, ADDONUAPLUS #### [address] #### C4, C3, CH50 #### [facility] , Potassium [Moles/Vol] 4.0 mmol/L Normal 3.5-5.1 [facility] Comment on above: Performed By: #### C BC, CMP, ESR, ADDONUAPLUS #### [place] [address] [place] #### C4, C3, CH50 #### [facility] , Protein [Mass/Vol] 6.6 g/dL Normal 6.4-8.9 [facility] Comment on above: Performed By: #### C BC, CMP, ESR, ADDONUAPLUS #### [place] [address] [place] #### C4, C3, CH50 #### [facility] , Sodium [Moles/Vol] 139 mmol/L Normal 136-145 [facility] Comment on above: Performed By: #### C BC, CMP, ESR, ADDONUAPLUS #### [place] [address] [place] #### C4, C3, CH50 #### [facility] , Urea nitrogen [Mass/Vol] 16 mg/dL Normal 7-25 [facility] Comment on above: Performed By: #### C BC, CMP, ESR, ADDONUAPLUS #### [address] [place] [address] [place] #### C4, C3, CH50 #### [facility] , Creatinine [Mass/volume] in Serum or PlasmaOrdered By: Contreras Mcmillan on 03-19-2023 Creatinine [Mass/Vol] 1.02 mg/dL 0.60-1.20 [facility] Dipstick and Microscopicon 0 03-19-2023 Appearance (U) Clear Normal Clear [facility] Comment on above: Order Comment: Name Collection Type:: Clean-Voided Midstream Performed By: #### C BC, CMP, ESR, ADDONUAPLUS #### [facility] [address] [place] [address] #### C4, C3, CH50 #### [facility] , Bacteria,Urine None Seen Normal None Seen [facility] Comment on above: Order Comment: Name Collection Type:: Clean-Voided Midstream Performed By: #### C BC, CMP, ESR, ADDONUAPLUS #### [facility] [address] [place] [address] #### C4, C3, CH50 #### [facility] , Bilirubin,Urine Negative Normal Negative [facility] Comment on above: Order Comment: Name Collection Type:: Clean-Voided Midstream Performed By: #### C BC, CMP, ESR, ADDONUAPLUS #### [facility] [address] [place] [address] #### C4, C3, CH50 #### [facility] , Color (U) Yellow Normal Yellow [facility] Comment on above: Order Comment: Name Collection Type:: Clean-Voided Midstream Performed By: #### C BC, CMP, ESR, ADDONUAPLUS #### [facility] [address] [place] [address] #### C4, C3, CH50 #### [facility] , Glucose Ql (U) Normal Normal Normal [facility] Comment on above: Order Comment: Name Collection Type:: Clean-Voided Midstream Performed By: #### C BC, CMP, ESR, ADDONUAPLUS #### [address] #### C4, C3, CH50 #### [facility] , Hyaline Casts,Urine None Seen Normal 0-1 [facility] Comment on above: Order Comment: Name Collection Type:: Clean-Voided Midstream Result Comment: PERF ORMED BY: [place] [address] PATHOLOGIST GAMING HOST SUSAN ZHENG M.D. Performed By: #### C BC, CMP, ESR, ADDONUAPLUS #### [address] #### C4, C3, CH50 #### [facility] , Ketones Ql (U) Negative Normal Negative [facility] Comment on above: Order Comment: Name Collection Type:: Clean-Voided Midstream Performed By: #### C BC, CMP, ESR, ADDONUAPLUS #### [address] #### C4, C3, CH50 #### [facility] , Leukocyte esterase Test strip Ql (U) Negative Normal Negative [facility] Comment on above: Order Comment: Name Collection Type:: Clean-Voided Midstream Performed By: #### C BC, CMP, ESR, ADDONUAPLUS #### [address] #### C4, C3, CH50 #### [facility] , Nitrite,Urine Negative Normal Negative [facility] Comment on above: Order Comment: Name Collection Type:: Clean-Voided Midstream Performed By: #### C BC, CMP, ESR, ADDONUAPLUS #### [address] #### C4, C3, CH50 #### [facility] , Occult Blood,Urine Negative Normal Negative [facility] Comment on above: Order Comment: Name Collection Type:: Clean-Voided Midstream Performed By: #### C BC, CMP, ESR, ADDONUAPLUS #### [address] #### C4, C3, CH50 #### [facility] , pH (U) 6.0 [pH] Normal 5.0-9.0 [facility] Comment on above: Order Comment: Name Collection Type:: Clean-Voided Midstream Performed By: #### C BC, CMP, ESR, ADDONUAPLUS #### [address] #### C4, C3, CH50 #### [facility] , Protein,Urine Negative Normal Negative [facility] Comment on above: Order Comment: Name Collection Type:: Clean-Voided Midstream Performed By: #### C BC, CMP, ESR, ADDONUAPLUS #### [address] #### C4, C3, CH50 #### [facility] , RBC LM.HPF (Urine sed) [#/Area] 0 /[HPF] Normal 0-4 [facility] Comment on above: Order Comment: Name Collection Type:: Clean-Voided Midstream Performed By: #### C BC, CMP, ESR, ADDONUAPLUS #### [address] #### C4, C3, CH50 #### [facility] , Specificy [place],Urine 1.006 Normal 1.001-1.030 [facility] Comment on above: Order Comment: Name Collection Type:: Clean-Voided Midstream Performed By: #### C BC, CMP, ESR, ADDONUAPLUS #### [address] #### C4, C3, CH50 #### [facility] , Squamous Epithelial Cell,Urine 1-2 Normal 0-2 [facility] Comment on above: Order Comment: Name Collection Type:: Clean-Voided Midstream Performed By: #### C BC, CMP, ESR, ADDONUAPLUS #### [address] #### C4, C3, CH50 #### [facility] , Urobilinogen,Urine Normal Normal Normal [facility] Comment on above: Order Comment: Name Collection Type:: Clean-Voided Midstream Performed By: #### C BC, CMP, ESR, ADDONUAPLUS #### [facility] [address] [place] [address] #### C4, C3, CH50 #### [facility] , WBC,Urine 1-2 Normal 0-4 [facility] Comment on above: Order Comment: Name Collection Type:: Clean-Voided Midstream Performed By: #### C BC, CMP, ESR, ADDONUAPLUS #### [address] #### C4, C3, CH50 #### [facility] , Eosinophils Auto (Bld) [#/Vo l]Ordered By: Contreras Mcmillan on 03-19-2023 Eosinophils (Bld) [#/Vol] 0.1 10*3/uL 0.0-0.45 [facility] Eosinophils/100 WBC Auto (Bl d)Ordered By: Contreras Mcmillan on 03-19-2023 Eosinophils/100 WBC (Bld) 1.5 % . [facility] Erythrocyte Sedimentation Ra roman 03-19-2023 ESR (Bld) [Velocity] 21 mm/h Normal 0-29 [facility] Comment on above: Result Comment: PERF ORMED BY: [place] [address] PATHOLOGIST GAMING HOST SUSAN ZHENG M.D. Performed By: #### C BC, CMP, ESR, ADDONUAPLUS #### [address] #### C4, C3, CH50 #### [facility] , Erythrocyte distribution wid th Auto (RBC) [Ratio]Ordered By: Contreras Mcmillan on 03-19-2023 Erythrocyte distribution width (RBC) [Ratio] 14.8 % 11.9-15.3 [facility] Erythrocyte sedimentation ra te by Photometric methodOrdered By: Contreras Mcmillan on 03-19-2023 ESR Photometric method (Bld) [Velocity] 21 mm/hr 0-29 [facility] Globulin Calc (S) [Mass/Vol] Ordered By: Contreras Mcmillan on 03-19-2023 Globulin (S) [Mass/Vol] 2.5 g/dL [facility] Glucose [Mass/volume] in Ser um or PlasmaOrdered By: Contreras Mcmillan on 03-19-2023 Glucose [Mass/Vol] 100 mg/dL 70-100 [facility] Comment on above: ADA recommended refe rence rangeRandom Glucose Reference Range is dependent on time and content of last meal. Glucose of more than 200 mg/dL in a nonstressed, ambulatory subject supports the diagnosis of Diabetes Mellitus. Hematocrit Auto (Bld) [Volum e fraction]Ordered By: Contreras Mcmillan on 03-19-2023 Hematocrit (Bld) [Volume fraction] 39.2 % 34.0-46.4 [facility] Hemoglobin [Mass/volume] in BloodOrdered By: Contreras Mcmillan on 03-19-2023 Hemoglobin (Bld) [Mass/Vol] 12.9 g/dL 11.8-15.4 [facility] Ketones Auto test strip (U) [Mass/Vol]Ordered By: Contreras Mcmillan on 03-19-2023 Ketones (U) [Mass/Vol] Negative Negative [facility] Leukocytes [#/volume] correc jw for nucleated erythrocytes in Blood by Automated counOrdered By: Contreras Mcmillan on 03-19-2023 WBC corrected for nucl RBC Auto (Bld) [#/Vol] 7.7 10*3/uL 3.8-11.6 [facility] Lymphocytes Auto (Bld) [#/Vo l]Ordered By: Contreras Mcmillan on 03-19-2023 Lymphocytes (Bld) [#/Vol] 1.8 10*3/uL 1.00-4.8 [facility] Lymphocytes/100 WBC Auto (Bl d)Ordered By: Contreras Mcmillan on 03-19-2023 Lymphocytes/100 WBC (Bld) 23.7 % . [facility] MCH Auto (RBC) [Entitic mass ]Ordered By: Contreras Mcmillan on 03-19-2023 MCH (RBC) [Entitic mass] 29.7 pg 24.7-34.3 [facility] MCHC Auto (RBC) [Mass/Vol]Or dered By: Contreras Mcmillan on 03-19-2023 MCHC (RBC) [Mass/Vol] 32.8 g/dL 32.0-35.0 [facility] MCV Auto (RBC) [Entitic vol] Ordered By: Contreras Mcmillan on 03-19-2023 MCV (RBC) [Entitic vol] 90.5 fL 80-100 [facility] Monocytes Auto (Bld) [#/Vol] Ordered By: Contreras Mcmillan on 03-19-2023 Monocytes (Bld) [#/Vol] 0.8 10*3/uL 0.0-0.8 [facility] Monocytes/100 WBC Auto (Bld) Ordered By: Contreras Mcmillan on 03-19-2023 Monocytes/100 WBC (Bld) 10.1 % . [facility] Neutrophils Auto (Bld) [#/Vo l]Ordered By: Contreras Mcmillan on 03-19-2023 Neutrophils (Bld) [#/Vol] 4.9 10*3/uL 1.8-7.7 [facility] Neutrophils/100 WBC Auto (Bl d)Ordered By: Contreras Mcmillan on 03-19-2023 Neutrophils/100 WBC (Bld) 64.1 % . [facility] Nitrite Test strip Ql (U)Ord ered By: Contreras Mcmillan on 03-19-2023 Nitrite Ql (U) Negative Negative [facility] No Panel InformationOrdered By: Contreras Mcmillan on 03-19-2023 Estimated GFR (CKD-EPI) > 60.0 mL/Min [facility] Creatinine Clearance (Chem N/A [facility] Nucleated erythrocytes [Pres ence] in Blood by Automated countOrdered By: Contreras Mcmillan on 03-19-2023 Nucleated RBC Auto Ql (Bld) 0.1 /100{WBC} 0-0.5 [facility] Platelet mean volume Auto (B ld) [Entitic vol]Ordered By: Contreras Mcmillan on 03-19-2023 Platelet mean volume (Bld) [Entitic vol] 8.5 fL 6.3-10.7 [facility] Platelets Auto (Bld) [#/Vol] Ordered By: Contreras Mcmillan on 03-19-2023 Platelets (Bld) [#/Vol] 251 10*3/uL 150-450 [facility] Potassium [Moles/volume] in Serum or PlasmaOrdered By: Contreras Mcmillan on 03-19-2023 Potassium [Moles/Vol] 4.0 mmol/L 3.5-5.1 [facility] Protein Auto test strip (U) [Mass/Vol]Ordered By: Contreras Mcmillan on 03-19-2023 Protein (U) [Mass/Vol] Negative Negative [facility] Protein [Mass/volume] in Ser um or PlasmaOrdered By: Contreras Mcmillan on 03-19-2023 Protein [Mass/Vol] 6.6 g/dL 6.4-8.9 [facility] RBC Auto (Bld) [#/Vol]Ordere d By: Contreras Mcmillan on 03-19-2023 RBC (Bld) [#/Vol] 4.33 10*6/uL 3.60-5.00 [facility] Serum or plasma albumin/glob ulin mass ratioOrdered By: Contreras Mcmillan on 03-19-2023 Albumin/Globulin [Mass ratio] 1.6 {ratio} [facility] Serum or plasma anion gap de terminationOrdered By: Contreras Mcmillan on 03-19-2023 Anion gap [Moles/Vol] 10.5 mmol/L 6.0-15.0 [facility] Sodium [Moles/volume] in Ser um or PlasmaOrdered By: Contreras Mcmillan on 03-19-2023 Sodium [Moles/Vol] 139 mmol/L 136-145 [facility] Specific gravity Auto test s trip (U) [Rel density]Ordered By: Contreras Mcmillan on 03-19-2023 Specific gravity (U) [Rel density] 1.006 1.001-1.030 [facility] Urea nitrogen [Mass/volume] in Serum or PlasmaOrdered By: Contreras Mcmillan on 03-19-2023 Urea nitrogen [Mass/Vol] 16 mg/dL 7-25 [facility] Urine bacteria detection by automated methodOrdered By: Contreras Mcmillan on 03-19-2023 Bacteria Auto Ql (U) None seen None Seen [facility] Urine clarity by refractomet ry automatedOrdered By: Contreras Mcmillan on 03-19-2023 Clarity Refractometry automated (U) Clear Clear [facility] Urine glucose measurement by automated test strip (mass/volume)Ordered By: Contreras Mcmillan on 03-19-2023 Glucose Auto test strip (U) [Mass/Vol] Normal mg/dL Normal [facility] Urine hemoglobin detection b y automated test stripOrdered By: Contreras Mcmillan on 03-19-2023 Hemoglobin Auto test strip Ql (U) Negative Negative [facility] Urine leukocyte esterase det ection by automated test stripOrdered By: Contreras Mcmillan on 03-19-2023 Leukocyte esterase Auto test strip Ql (U) Negative Negative [facility] Urobilinogen Auto test strip (U) [Mass/Vol]Ordered By: Contreras Mcmillan on 03-19-2023 Urobilinogen (U) [Mass/Vol] Normal mg/dL Normal [facility] WBC Auto (Bld) [#/Vol]Ordere d By: Contreras Mcmillan on 03-19-2023 WBC (Bld) [#/Vol] 7.7 10*3/uL 3.8-11.6 [facility] pH Auto test strip (U)Ordere d By: Contreras Mcmillan on 03-19-2023 pH (U) 6.0 [pH] 5.0-9.0 [facility] Pain Management Office/Clini c Noteon 09-25-2022 Pain Management Office/Clinic Note Chief Complaint mid back pain History of Present Illness Presents today for evaluation regarding chronic thoracic pain. Patient underwent a left T9, T10 TFESI 08/21/2022 reports 95% improvement of her pain. She does feel that has pain higher from where the injection was done but states that overall pain is tolerable at this time Patient has engaged in a 6 week course of provider directed, home based physiological therapies within the last 3 months. In addition, a six-week trial of activity modification has failed to give reprieve. Patient has also failed to respond optimally to oral analgesic regimen AM Behavior: Better Day Progresses Behavior: Worse PM Behavior: Worse Pain location and laterality: mid back pain Pain quality: Aching, Burning Pain Pattern: Intermittent Pain rate at rest: 2 Pain rate with activity: 6 Bending: Aggravating Cold/Ice: Aggravating Heat: Alleviating Lifting: Aggravating Lying: Alleviating Sitting: Aggravating Standing: Aggravating Sensory impairment location: denies Pain since last visit: Improved Procedure 1: Therapeutic nerve root/TFESI Procedure Date 1: 08/21/22 Procedure Comments 1: LEFT T9,T10 TRANSFORAMINAL EPIDURAL STEROID INJECTION Pain Improvement 1: Significant (70-100% relief) Pain Improvement Comments 1: 95% RELIEF CONTINUES Date Tens: n/a Date Chiropractor: hx Date PT: hx Comments PT: HEP-none Date Injections: prn Date Surgery: Hx Frequency Surgery: x1, x1,x1 Effective Surgery: neck 2008 , thorcaic 2018, & lumbar surgery 1994 Comments Surgery: 05/2019 T9-10 @ [facility] Recent testing: No Loss of bladder/bowel: Denies Demeanor: Pleasant Distress: None Appearance: Appropriate Cognitive impairment: No Feels safe at home: Yes Suicidal/homicidal ideation: No Review of Systems A review of systems was conducted and noted to be negative to the patients presenting complaint unless delineated in HPI. Full details are available on form PM-82 completed by the patient and added to the record on today?s date Denies loss of control of bowel and bladder or saddle paresthesia. Denies suicidal ideation or plan Physical Exam Vitals & Measurements HR: 84 (Peripheral) RR: 16 BP: 141/83 HT: 165 cm General -Appears stated age. No apparent distress. Psychological - Normal mood and affect. HEENT - Normocephalic/Atraum atic Neurologic-alert and oriented x4 Respiratory - No obvious distress, No shortness of breath. No focal motor or sensory deficits appreciated Additional Vitals BP Position/Location: Sitting Assessment/Plan 1. Thoracic neuritis Patient presents today for evaluation regarding chronic thoracic pain secondary to thoracic neuritis. Patient reports overall pain much improved following TFESI 2. Thoracic spinal stenosis 3. Postlaminectomy syndrome of cervical region Medical Decision Making Chronic conditions NOT treated during this visit that affected my overall medical decision making: [Depression] I have reviewed the patient?s medication list for medication interactions/contrai ndications and/or for upcoming procedures: [yes ] Provider Comments Dictated with voice recognition system. Please disregard any inadvertent errors Problem List/Past Medical History Ongoing Anemia Angina Antiphospholipid syndrome Asthma Blood clot Cervical neuritis Cervical postlaminectomy syndrome Cervical spondylosis Cervicalgia Chronic cervical pain Chronic low back pain Chronic sacroiliac joint pain Chronic thoracic back pain CVA Depression Disc displacement, thoracic GERD Hashimotos disease Hypertension Hypothyroidism Intercostal neuritis Kidney stone Left rib fracture Lumbar neuritis Lumbar postlaminectomy syndrome Lumbosacral spondylosis Lupus anticoagulant disorder Mononeuritis Myalgia Obesity Osteoarthritis Post laminectomy syndrome Postlaminectomy syndrome of cervical region Sacroiliac joint pain Spondylosis of cervical spine Thoracic back pain Thoracic degenerative disc disease Thoracic neuritis Thoracic spinal stenosis Thoracic spondylosis TIA TMJ Historical No qualifying data Procedure/Surgical History cataract surgery Hernia repair (1960) (09/1966) back surgery (09/01/1995) LT knee surgery (08/1998) Lithotripsy, extracorporeal shock wave (01/2006) LT knee surgery (01/2006) uterine ablation (2008) Neck surgery (06/2009) IVC filter (12/2014) Thoracic Radiofrequency Ablation (Left) (08/11/2016) Hip Injection (Left) (08/13/2016) Thoracic Radiofrequency Ablation (Right) (08/27/2016) Cervical/Thoracic Transforaminal Epidural Steroid Injection (Bilateral) (11/24/2016) Cervical/Thoracic Dorsal Medial Branch Block (Bilateral) (12/15/2016) Cervical/Thoracic Dorsal Medial Branch Block (Bilateral) (01/12/2017) Cervical Radiofrequency Ablation (Right) (02/09/2017) Cervical Radiofrequency Ablation (Left) (02/23/2017) Thoracic Radiofrequency Abla (more content not included)... Normal [facility] Complement C3on 09-22-2022 Complement C3 177 mg/dL High 82-167 [facility] Comment on above: Result Comment: Perf ormed at: - [facility] [id number] Care Consultant: Thony Mcmillan PhD, Phone: [phone] Performed By: #### C BC, CMP, ESR, ADDONUAPLUS #### [address] #### C4, C3, CH50 #### [facility] , Complement C4on 09-22-2022 Complement C4 47 mg/dL High 12-38 [facility] Comment on above: Result Comment: PERF ORMED BY: [place] [address] PATHOLOGIST GAMING HOST SUSAN ZHENG M.D. Performed By: #### C BC, CMP, ESR, ADDONUAPLUS #### [address] #### C4, C3, CH50 #### [facility] , Complement Total (CH50)on Complement Total (CH50) >60 Normal >41 [facility] Comment on above: Result Comment: Age Male Female 1 - 30 days Not Estab. Not Estab. 31 days - 6 months >32 >20 7 months - 17 years >39 >39 >17 years >41 >41 NOTE: The adult ( >17 years ) reference interval range is used to flag abnormals on this report. If the patient is 17 years old or younger, use the table above to determine out of range values. Performed at: - [facility] [id number] Care Consultant: Thony Mcmillan PhD, Phone: [phone] PERFORMED BY: [place] [address] PATHOLOGIST G[employer]ING H[employer] SUSAN ZHENG M.D. Performed By: #### C BC, CMP, ESR, ADDONUAPLUS #### [address] #### C4, C3, CH50 #### [facility] , Complete Blood Count Auto Di ffon 09-22-2022 Basophils (Bld) [#/Vol] 0.1 10*3/uL Normal 0.0-0.2 [facility] Comment on above: Performed By: #### C 3, C4, CH50 #### [facility] , #### CMP, CBC, ESR, ADDONUAPLUS #### [address] Basophils/100 WBC (Bld) 0.6 % Normal . [facility] Comment on above: Performed By: #### C 3, C4, CH50 #### [facility] , #### CMP, CBC, ESR, ADDONUAPLUS #### [address] Eosinophils (Bld) [#/Vol] 0.1 10*3/uL Normal 0.0-0.45 [facility] Comment on above: Performed By: #### C 3, C4, CH50 #### [facility] , #### CMP, CBC, ESR, ADDONUAPLUS #### [address] Eosinophils/100 WBC (Bld) 1.0 % Normal . [facility] Comment on above: Performed By: #### C 3, C4, CH50 #### [facility] , #### CMP, CBC, ESR, ADDONUAPLUS #### [address] Erythrocyte distribution width (RBC) [Ratio] 15.4 % High 11.9-15.3 [facility] Comment on above: Performed By: #### C 3, C4, CH50 #### [facility] , #### CMP, CBC, ESR, ADDONUAPLUS #### [address] Hematocrit (Bld) [Volume fraction] 41.8 % Normal 34.0-46.4 [facility] Comment on above: Performed By: #### C 3, C4, CH50 #### [facility] , #### CMP, CBC, ESR, ADDONUAPLUS #### [address] Hemoglobin (Bld) [Mass/Vol] 13.3 g/dL Normal 11.8-15.4 [facility] Comment on above: Performed By: #### C 3, C4, CH50 #### [facility] , #### CMP, CBC, ESR, ADDONUAPLUS #### [address] Lymphocytes (Bld) [#/Vol] 1.8 10*3/uL Normal 1.00-4.8 [facility] Comment on above: Performed By: #### C 3, C4, CH50 #### [facility] , #### CMP, CBC, ESR, ADDONUAPLUS #### [address] Lymphocytes/100 WBC (Bld) 19.6 % Normal . [facility] Comment on above: Performed By: #### C 3, C4, CH50 #### [facility] , #### CMP, CBC, ESR, ADDONUAPLUS #### [address] MCH (RBC) [Entitic mass] 28.5 pg Normal 24.7-34.3 [facility] Comment on above: Performed By: #### C 3, C4, CH50 #### [facility] , #### CMP, CBC, ESR, ADDONUAPLUS #### [address] MCV (RBC) [Entitic vol] 89.3 fL Normal 80-100 [facility] Comment on above: Performed By: #### C 3, C4, CH50 #### [facility] , #### CMP, CBC, ESR, ADDONUAPLUS #### [address] Mean Corpuscular HGB Conc 31.9 g/dL Low 32.0-35.0 [facility] Comment on above: Performed By: #### C 3, C4, CH50 #### [facility] , #### CMP, CBC, ESR, ADDONUAPLUS #### [address] Monocytes (Bld) [#/Vol] 0.9 10*3/uL High 0.0-0.8 [facility] Comment on above: Performed By: #### C 3, C4, CH50 #### [facility] , #### CMP, CBC, ESR, ADDONUAPLUS #### [address] Monocytes/100 WBC (Bld) 9.8 % Normal . [facility] Comment on above: Performed By: #### C 3, C4, CH50 #### [facility] , #### CMP, CBC, ESR, ADDONUAPLUS #### [address] Neutrophils (Bld) [#/Vol] 6.4 10*3/uL Normal 1.8-7.7 [facility] Comment on above: Performed By: #### C 3, C4, CH50 #### [facility] , #### CMP, CBC, ESR, ADDONUAPLUS #### [address] Neutrophils/100 WBC (Bld) 69.0 % Normal . [facility] Comment on above: Performed By: #### C 3, C4, CH50 #### [facility] , #### CMP, CBC, ESR, ADDONUAPLUS #### [address] NRBC% 0.0 /100{WBC} Normal 0-0.5 [facility] Comment on above: Performed By: #### C 3, C4, CH50 #### [facility] , #### CMP, CBC, ESR, ADDONUAPLUS #### [address] Platelet mean volume (Bld) [Entitic vol] 8.8 fL Normal 6.3-10.7 [facility] Comment on above: Performed By: #### C 3, C4, CH50 #### [facility] , #### CMP, CBC, ESR, ADDONUAPLUS #### [address] Platelets (Bld) [#/Vol] 285 10*3/uL Normal 150-450 [facility] Comment on above: Performed By: #### C 3, C4, CH50 #### [facility] , #### CMP, CBC, ESR, ADDONUAPLUS #### [address] RBC (Bld) [#/Vol] 4.68 10*6/uL Normal 3.60-5.00 [facility] Comment on above: Performed By: #### C 3, C4, CH50 #### [facility] , #### CMP, CBC, ESR, ADDONUAPLUS #### [address] WBC (Bld) [#/Vol] 9.3 10*3/uL Normal 3.8-11.6 [facility] Comment on above: Performed By: #### C 3, C4, CH50 #### [facility] , #### CMP, CBC, ESR, ADDONUAPLUS #### [address] Comprehensive Metabolic Pane ifrah 09-22-2022 Albumin [Mass/Vol] 4.2 g/dL Normal 3.2-5.5 [facility] Comment on above: Performed By: #### C 3, C4, CH50 #### [facility] , #### CMP, CBC, ESR, ADDONUAPLUS #### [address] Albumin/Globulin [Mass ratio] 1.6 {ratio} Normal [facility] Comment on above: Performed By: #### C 3, C4, CH50 #### [facility] , #### CMP, CBC, ESR, ADDONUAPLUS #### [address] ALP [Catalytic activity/Vol] 73 U/L Normal 32-92 [facility] Comment on above: Result Comment: PERF ORMED BY: [place] [address] PATHOLOGIST GAMING HOST SUSAN ZHENG M.D. Performed By: #### C 3, C4, CH50 #### [facility] , #### CMP, CBC, ESR, ADDONUAPLUS #### [address] ALT [Catalytic activity/Vol] 22 U/L Normal 10-60 [facility] Comment on above: Performed By: #### C 3, C4, CH50 #### [facility] , #### CMP, CBC, ESR, ADDONUAPLUS #### [address] Anion gap [Moles/Vol] 11.8 mmol/L Normal 6.0-15.0 [facility] Comment on above: Performed By: #### C 3, C4, CH50 #### [facility] , #### CMP, CBC, ESR, ADDONUAPLUS #### [address] AST [Catalytic activity/Vol] 22 U/L Normal 10-42 [facility] Comment on above: Performed By: #### C 3, C4, CH50 #### [facility] , #### CMP, CBC, ESR, ADDONUAPLUS #### [facility] [address] [place] [address] Bilirubin [Mass/Vol] 0.2 mg/dL Low 0.3-1.2 [facility] Comment on above: Performed By: #### C 3, C4, CH50 #### [facility] , #### CMP, CBC, ESR, ADDONUAPLUS #### [facility] [address] [place] [address] Calcium [Mass/Vol] 9.2 mg/dL Normal 8.2-10.2 [facility] Comment on above: Performed By: #### C 3, C4, CH50 #### [facility] , #### CMP, CBC, ESR, ADDONUAPLUS #### [facility] [address] [place] [address] Chloride [Moles/Vol] 103 mmol/L Normal 95-114 [facility] Comment on above: Performed By: #### C 3, C4, CH50 #### [facility] , #### CMP, CBC, ESR, ADDONUAPLUS #### [facility] [address] [place] [address] CO2 [Moles/Vol] 26.2 mmol/L Normal 22.0-30.0 [facility] Comment on above: Performed By: #### C 3, C4, CH50 #### [facility] , #### CMP, CBC, ESR, ADDONUAPLUS #### [facility] [address] [place] [address] Creatinine [Mass/Vol] 1.18 mg/dL High 0.44-1.03 [facility] Comment on above: Performed By: #### C 3, C4, CH50 #### [facility] , #### CMP, CBC, ESR, ADDONUAPLUS #### [facility] [address] [place] [address] Estimated GFR ( [place] [facility] Comment on above: Result Comment: GFR estimated reference range: According to KDOQI guidelines, <60 ml/min/1.73m2 is sufficient to diagnose a patient with chronic kidney disease. Performed By: #### C 3, C4, CH50 #### [facility] , #### CMP, CBC, ESR, ADDONUAPLUS #### [address] Estimated GFR (Non- Am 47 [facility] Comment on above: Performed By: #### C 3, C4, CH50 #### [facility] , #### CMP, CBC, ESR, ADDONUAPLUS #### [address] Globulin (S) [Mass/Vol] 2.7 g/dL Normal [facility] Comment on above: Performed By: #### C 3, C4, CH50 #### [facility] , #### CMP, CBC, ESR, ADDONUAPLUS #### [address] Glucose [Mass/Vol] 110 mg/dL High 70-100 [facility] Comment on above: Result Comment: [place] Glucose Reference Range is dependent on time and content of last meal. Glucose of more than 200 mg/dL in a nonstressed, ambulatory subject supports the diagnosis of Diabetes Mellitus. ADA recommended reference range Performed By: #### C 3, C4, CH50 #### [facility] , #### CMP, CBC, ESR, ADDONUAPLUS #### [address] Potassium [Moles/Vol] 4.0 mmol/L Normal 3.5-5.1 [facility] Comment on above: Performed By: #### C 3, C4, CH50 #### [facility] , #### CMP, CBC, ESR, ADDONUAPLUS #### [address] Protein [Mass/Vol] 6.9 g/dL Normal 6.1-7.9 [facility] Comment on above: Performed By: #### C 3, C4, CH50 #### [facility] , #### CMP, CBC, ESR, ADDONUAPLUS #### [address] Sodium [Moles/Vol] 137 mmol/L Normal 136-146 [facility] Comment on above: Performed By: #### C 3, C4, CH50 #### [facility] , #### CMP, CBC, ESR, ADDONUAPLUS #### [address] Urea nitrogen [Mass/Vol] 17 mg/dL Normal 9-23 [facility] Comment on above: Performed By: #### C 3, C4, CH50 #### [facility] , #### CMP, CBC, ESR, ADDONUAPLUS #### [address] Dipstick and Microscopicon 0 09-22-2022 Appearance (U) Clear Normal Clear [facility] Comment on above: Order Comment: Name Collection Type:: Clean-Voided Midstream Performed By: #### C 3, C4, CH50 #### [facility] , #### CMP, CBC, ESR, ADDONUAPLUS #### [address] Bacteria,Urine None Seen Normal None Seen [facility] Comment on above: Order Comment: Name Collection Type:: Clean-Voided Midstream Performed By: #### C 3, C4, CH50 #### [facility] , #### CMP, CBC, ESR, ADDONUAPLUS #### [facility] [address] [place] [address] Bilirubin,Urine Negative Normal Negative [facility] Comment on above: Order Comment: Name Collection Type:: Clean-Voided Midstream Performed By: #### C 3, C4, CH50 #### [facility] , #### CMP, CBC, ESR, ADDONUAPLUS #### [facility] [address] [place] [address] Color (U) Yellow Normal Yellow [facility] Comment on above: Order Comment: Name Collection Type:: Clean-Voided Midstream Performed By: #### C 3, C4, CH50 #### [facility] , #### CMP, CBC, ESR, ADDONUAPLUS #### [address] Glucose Ql (U) Normal Normal Normal [facility] Comment on above: Order Comment: Name Collection Type:: Clean-Voided Midstream Performed By: #### C 3, C4, CH50 #### [facility] , #### CMP, CBC, ESR, ADDONUAPLUS #### [facility] [address] [place] [address] Hyaline Casts,Urine None Seen Normal 0-8 [facility] Comment on above: Order Comment: Name Collection Type:: Clean-Voided Midstream Result Comment: PERF ORMED BY: [place] [address] PATHOLOGIST GAMING HOST SUSAN ZHENG M.D. Performed By: #### C 3, C4, CH50 #### [facility] , #### CMP, CBC, ESR, ADDONUAPLUS #### [address] Ketones Ql (U) Negative Normal Negative [facility] Comment on above: Order Comment: Name Collection Type:: Clean-Voided Midstream Performed By: #### C 3, C4, CH50 #### [facility] , #### CMP, CBC, ESR, ADDONUAPLUS #### [address] Leukocyte esterase Test strip Ql (U) 1+ High Negative [facility] Comment on above: Order Comment: Name Collection Type:: Clean-Voided Midstream Performed By: #### C 3, C4, CH50 #### [facility] , #### CMP, CBC, ESR, ADDONUAPLUS #### [address] Nitrite,Urine Negative Normal Negative [facility] Comment on above: Order Comment: Name Collection Type:: Clean-Voided Midstream Performed By: #### C 3, C4, CH50 #### [facility] , #### CMP, CBC, ESR, ADDONUAPLUS #### [address] Occult Blood,Urine Negative Normal Negative [facility] Comment on above: Order Comment: Name Collection Type:: Clean-Voided Midstream Performed By: #### C 3, C4, CH50 #### [facility] , #### CMP, CBC, ESR, ADDONUAPLUS #### [address] pH (U) 5.5 [pH] Normal 5.0-9.0 [facility] Comment on above: Order Comment: Name Collection Type:: Clean-Voided Midstream Performed By: #### C 3, C4, CH50 #### [facility] , #### CMP, CBC, ESR, ADDONUAPLUS #### [address] Protein,Urine Negative Normal Negative [facility] Comment on above: Order Comment: Name Collection Type:: Clean-Voided Midstream Performed By: #### C 3, C4, CH50 #### [facility] , #### CMP, CBC, ESR, ADDONUAPLUS #### [facility] [address] [place] [address] RBC,Urine 1-2 Normal 0-4 [facility] Comment on above: Order Comment: Name Collection Type:: Clean-Voided Midstream Performed By: #### C 3, C4, CH50 #### [facility] , #### CMP, CBC, ESR, ADDONUAPLUS #### [address] Specificy [place],Urine 1.010 Normal 1.001-1.030 [facility] Comment on above: Order Comment: Name Collection Type:: Clean-Voided Midstream Performed By: #### C 3, C4, CH50 #### [facility] , #### CMP, CBC, ESR, ADDONUAPLUS #### [address] Squamous Epithelial Cell,Urine None Seen Normal 0-2 [facility] Comment on above: Order Comment: Name Collection Type:: Clean-Voided Midstream Performed By: #### C 3, C4, CH50 #### [facility] , #### CMP, CBC, ESR, ADDONUAPLUS #### [address] Urobilinogen,Urine Normal Normal Normal [facility] Comment on above: Order Comment: Name Collection Type:: Clean-Voided Midstream Performed By: #### C 3, C4, CH50 #### [facility] , #### CMP, CBC, ESR, ADDONUAPLUS #### [address] WBC,Urine 3-4 Normal 0-4 [facility] Comment on above: Order Comment: Name Collection Type:: Clean-Voided Midstream Performed By: #### C 3, C4, CH50 #### [facility] , #### CMP, CBC, ESR, ADDONUAPLUS #### [address] [place] [address] [place] Erythrocyte Sedimentation Ra roman 09-22-2022 ESR (Bld) [Velocity] 25 mm/h Normal 0-29 [facility] Comment on above: Result Comment: PERF ORMED BY: [place] [address] PATHOLOGIST GAMING HOST SUSAN ZHENG M.D. Performed By: #### C BC, CMP, ESR, ADDONUAPLUS #### [facility] [address] [place] [address] #### C4, C3, CH50 #### [facility] , XR KUB 1 VIEWon 08-07-2022 XR KUB 1 VIEW EXAMINATION: XR KUB 1 VIEW HISTORY: Kidney stone COMPARISON: XR KUB 07/29/2021 FINDINGS: KIDNEY/URETER - RIGHT: No visible renal or ureteral calcifications. KIDNEY/URETER - LEFT: No visible renal or ureteral calcifications. PELVIS: No visible ureteral stones. Stable pelvic calcifications favoring phleboliths. BOWEL: No abnormal dilation or deviation. BONES: Bilateral hip replacements. OTHER: Calcification projecting over undersurface of liver, possible gallstone. IVC filter. IMPRESSION: 1. No visible urinary tract calculi. Evaluation is limited by dense overlying bowel content. Electronically authenticated by: YESENIA BLACK Date: 2022-08-07 10:44 Normal [facility] PAP ACOG PANEL 2: 30 to 65on 06-23-2022 . . Normal [facility] Comment on above: Result Comment: Perf ormed at: WB Performed By: #### [id number] #### [facility] [address] [address] [address] Barry Sanchez Age Gdln ACOG Testing 30-65 Normal [facility] Comment on above: Performed By: #### [id number] #### [facility] [address] [address] [address] Barry Sanchez DIAGNOSIS: Comment Normal [facility] Comment on above: Result Comment: NEGA TIVE FOR INTRAEPITHELIAL LESION OR MALIGNANCY. CELLULAR CHANGES ASSOCIATED WITH ATROPHY ARE PRESENT. Performed at: WB Performed By: #### [id number] #### [facility] [address] [place] [address] Dr. Barry Sanchez HPV Aptima Negative Normal Negative [facility] Comment on above: Result Comment: This nucleic acid amplification test detects fourteen high-risk HPV types (16,18,31,33,35,39,45,51,52,56,58,59,66,68) without differentiation. Performed at: =G Performed By: #### [id number] #### [facility] [address] [place] [address] Dr. Barry Sanchez Methodology: Comment Normal [facility] Comment on above: Result Comment: This liquid based ThinPrep(R) pap test was screened with the use of an image guided system. Performed at: WB Performed By: #### [id number] #### [facility] [address] [place] [address] Dr. Barry Sanchez Note: Comment Normal [facility] Comment on above: Result Comment: The Pap smear is a screening test designed to aid in the detection of premalignant and malignant conditions of the uterine cervix. It is not a diagnostic procedure and should not be used as the sole means of detecting cervical cancer. Both false-positive and false-negative reports do occur. . Performed at: WB Performed By: #### [id number] #### [facility] [address] [place] [address] Dr. Barry Sanchez Performed by: Comment Normal [facility] Comment on above: Result Comment: Amada Rabago, Steel Layout Worker (ASCP) Performed at: WB Performed By: #### [id number] #### [facility] [address] [place] [address] Dr. Barry Sanchez Specimen adequacy: Comment Normal [facility] Comment on above: Result Comment: Sati sfactory for evaluation. Endocervical and/or squamous metaplastic cells (endocervical component) are present. Performed at: WB Performed By: #### [id number] #### [facility] [address] [place] [address] Dr. Barry aSnchez MG MAMM SCREEN 3D PRIMO CADon 06-05-2022 MG MAMM SCREEN 3D PRIMO CAD Patient: NOEMI CABALLERO Exam Date: 06/05/2022 : 1960 Gender:F Ordering : DR PASHA PAIGE . Admission #: [id number] Family : DR ALEXANDER CHEN Order #: [id number] CLICK HERE TO VIEW EXAM RADIOLOGY REPORT PROCEDURE: MAMMOGRAM SCREENING 3D BILATERAL CAD COMPARISON: MG MAMM SCREEN PRIMO W CAD, 05/27/2020. MG MAMM SCREEN 3D PRIMO CAD, 05/28/2021. INDICATIONS: Screening mammography Calculator Name NCI Breast Cancer Risk Assessment Tool 5 Year Breast Cancer Risk 1.80% Lifetime Breast Cancer Risk 8.60% Personal Breast Cancer No Personal Ovarian Cancer No Treatments None Family Cancers Sister with thyroid cancer at age 52. LOCATION: [facility] BREAST COMPOSITION: Scattered areas fibroglandular density. FINDINGS: DIAGNOSTIC CATEGORY 1--NEGATIVE. NO CHANGE FROM COMPARISON ASSESSMENT. Scattered benign-appearing calcifications are present. Scattered benign-appearing lymph nodes are present. RIGHT BREAST: No significant suspicious finding. LEFT BREAST: No significant suspicious finding. RECOMMENDATIONS: ROUTINE MAMMOGRAM AND CLINICAL EVALUATION IN 12 MONTHS. PLEASE NOTE: A NORMAL MAMMOGRAM DOES NOT EXCLUDE THE POSSIBILITY OF BREAST CANCER. A CLINICALLY SUSPICIOUS PALPABLE LUMP SHOULD BE BIOPSIED. Dictated by: Laney Rabago MD on 06/05/2022 at 10:24 Approved by: Laney Rabago MD on 06/05/2022 at 10:39 Normal [facility] TSH+FREE T4on 02-11-2022 Free T4 [Mass/Vol] 1.4 ng/dL Normal 0.8-1.8 [facility] Comment on above: Performed By: #### [id number] #### [facility] [address], [address] [place], [place] [id number] Language Assistant: José Miguel Mata MD TSH Qn 1.36 m[IU]/L Normal 0.40-4.50 [facility] Comment on above: Performed By: #### [id number] #### [facility] [address], [address] [place], [place] [id number] Language Assistant: José Miguel Mata MD Lipid Profileon 12-11-2021 Cholesterol [Mass/Vol] 158 mg/dL Normal <200 [facility] Comment on above: Result Comment: Cholesterol Guidelines: <200 Desirable 200-240 Borderline >240 Undesirable Performed By: #### L IPR #### [address] [address] Care Consultant: Jose Parikh MD Cholesterol in HDL [Mass/Vol] 46 mg/dL Normal >40 [facility] Comment on above: Result Comment: HDL Guidelines: <40 Undesirable 40-59 Borderline >59 Desirable Performed By: #### L IPR #### [address] [address] Care Consultant: Jose Parikh MD Cholesterol in LDL [Mass/Vol] 74 mg/dL Normal 0-130 [facility] Comment on above: Result Comment: LDL Guidelines: <100 Desirable 100-129 Near to/above Desirable 130-159 Borderline >159 Undesirable Direct (measured) LDL and calculated LDL are not interchangeable tests. Performed By: #### L IPR #### [address] [address] Care Consultant: Jose Parikh MD Cholesterol.total/Wen sterol in HDL [Mass ratio] 3.4 {ratio} Normal <5 [facility] Comment on above: Performed By: #### L IPR #### [facility] [employer] [address] [place] [address] Care Consultant: Jose Parikh MD Triglyceride [Mass/Vol] 191 mg/dL High <150 [facility] Comment on above: Result Comment: Triglyceride Guidelines: <150 Desirable 150-199 Borderline 200-499 High >499 Very high Based on AHA Guidelines for fasting triglyceride, June 2012. Performed By: #### L IPR #### [address] [address] Care Consultant: Jose Parikh MD XR FLUOROSCOPY GREATER THAN ONE HOURon 08-30-2018 XR FLUOROSCOPY GREATER THAN ONE HOUR This is an auto finalized result. Please refer to patient chart for further information. information. information. Normal [facility] Comment on above: Order Comment: Reaso n for exam?:Degenerative joint disease (DJD) of hipInjury/Trauma or Illness?:Illness/OtherHow long have you had these symptoms (acute/chronic)?:ChronicType of Exam?:OngoingAdditional signs and symptoms?:n/aFluoro time in minutes:.22Fluoro dose in mGy?:2.14 XR OR HIP RIGHT 1 VIEWon XR OR HIP RIGHT 1 VIEW EXAMINATION:XR OR HIP RIGHT 1 VIEWHISTORY:ORDERING SYSTEM PROVIDED HISTORY: Surgery, TECHNOLOGIST PROVIDED HISTORY: Reason for exam: Degenerative joint disease (DJD) of hipIllness/OtherEnco unter Type: OngoingAdditional signs and symptoms: n/aFluoro dose in mGy: 2.14ORDERING SYSTEM PROVIDED DIAGNOSIS CODES:M16.12 Osteoarthritis of left hip, unspecified osteoarthritis typeCOMPARISON:None. TECHNIQUE:Fluoro Dose Ka,r mGy: Fluoro dose in Ka,r mGy: 2.14FINDINGS:A single spot fluoroscopic image of the right hip was obtained in the operating room. Orthopedic hardware consistent with ongoing total right hip arthroplasty is observed. The femoral stem is located centrally within the femoral diaphysis. No suspicious fractures or osseous lesions are demonstrated. There are soft tissue changes as expected in the intraoperative setting.IMPRESSION:S brigida spot fluoroscopic image obtained during right hip arthroplasty. For full details please see the dictated operative report.RPS/Stack Exchanget ation ID: [id number] by: DREA BEAR on WedAug 30, 2018 11:11:02 AM ESTTranscribed by: MARTY JONES on WedAug 30, 2018 11:11:37 AM ESTFinalized by: DREA BEAR on WedAug 30, 2018 4:41:51 PM EST Normal [facility] Comment on above: Order Comment: Reaso n for exam?:Degenerative joint disease (DJD) of hipInjury/Trauma or Illness?:Illness/OtherHow long have you had these symptoms (acute/chronic)?:ChronicType of Exam?:OngoingAdditional signs and symptoms?:n/aFluoro time in minutes:.22Fluoro dose in mGy?:2.14 XR CERVICAL SPINE WITH FLEXI ON AND EXTENSION 6+ VIEWSon 08-16-2018 XR CERVICAL SPINE WITH FLEXION AND EXTENSION 6+ VIEWS EXAMINATION:CERVICAL SPINE X-RAYHISTORY:Preoper ative evaluation. Prior ACDF.COMPARISON:09/2014.FINDINGS:Frances n views of the cervical spine obtained, to include lateral views in flexion and extension. No prevertebral soft tissue swelling. C7-T1 is obscured. Prior ACDF at C6-C7. No listhesis at neutral, or with flexion or extension. The dens is unremarkable. Visualized lung apices and ribs are unremarkable. Mild foraminal narrowing at C3-C4 on the left. Vertebral body heights are maintained. Minimal degenerative disc disease at C3-C4, C4-C5, C5-C6. The C7-T1 disc spaces mostly obscured throughout this study.IMPRESSION:1. Prior ACDF C6-C7.2. Mild degenerative disc disease.3. C7-T1 disc space is mostly obscured throughout the study, limiting assessment of that level.[facility]/flck.metat ion ID: [id number] by: SANTOS ANDERSON on WedAug 17, 2018 8:54:40 AM ESTTranscribed by: COOPER BETTENCOURT on WedAug 17, 2018 9:00:00 AM ESTFinalized by: SANTOS ANDERSON on WedAug 17, 2018 12:24:05 PM EST Normal [facility] Comment on above: Order Comment: Reaso n for exam?:patInjury/Trauma or Illness?:Illness/OtherHow long have you had these symptoms (acute/chronic)?:AcuteHistory of cancer?:noSurgeries, chemotherapy, or radiation?:neck sxType of Exam?:InitialAdditional signs and symptoms?:hip Sx schedule, no complaints to neck Basic Metabolic Panelon Anion gap 14 mmol/L Invalid Interpretation Code 10 - 20 mmol/L [facility] Bicarbonate (HCO3) 31 mmol/L Invalid Interpretation Code 21 - 32 mmol/L [facility] BUN/Creatinine Ratio 18.6 mg/mg Invalid Interpretation Code 10.0 - 20.0 [facility] Calcium 9.3 mg/dL Invalid Interpretation Code 8.4 - 10.2 mg/dL [facility] Chloride 97 mmol/L Low 98 - 108 mmol/L [facility] Creatinine 1.29 mg/dL High 0.4 - 1.1 mg/dL [facility] eGFR (non-black) 46 mL/min/{1.73_m2} Low >=60 [facility] eGFR (non-black) The eGFR should be used for monitoring renal function only and not for medication dosing. Invalid Interpretation Code [facility] Glucose 113 mg/dL High 65 - 99 mg/dL [facility] Potassium 5.3 mmol/L High 3.5 - 5.1 mmol/L [facility] Sodium 137 mmol/L Invalid Interpretation Code 135 - 145 mmol/L [facility] Urea nitrogen 24 mg/dL Invalid Interpretation Code 8 - 25 mg/dL [facility] CBCon 11-11-2017 Erythrocytes (RBC) 0.00 K/mcL Invalid Interpretation Code 0.00 - 0.00 [facility] Erythrocytes (RBC) 3.86 M/mcL Low 4.00 - 5.20 [facility] AB Hematocrit (HCT) 31.5 % Low 36 - 46 % [facility] Hemoglobin (HGB) 9.4 g/dL Low 12 - 16 g/dL [facility] Interpretation and review of laboratory results Abnormal Invalid Interpretation Code [facility] MCH 24.4 pg Low 26 - 34 pg [facility] MCHC 29.8 g/dL Low 31 - 37 g/dL [facility] MCV 81.6 fL Invalid Interpretation Code 80 - 100 fL [facility] Nucleated erythrocytes/100 erythrocytes 0.0 % Invalid Interpretation Code [facility] Platelet mean volume (PMV) 11.0 fL Invalid Interpretation Code 9 - 15.5 fL [facility] Platelets 198 K/mcL Invalid Interpretation Code 150 - 400 [facility] RDW-CA 22.7 % High 11.6 - 14.8 % [facility] WBC (Leukocytes) 9.87 K/mcL Invalid Interpretation Code 4.50 - 11.00 [facility] PT/INRon 11-11-2017 Coagulation factor induced.INR assay in platelet poor plasma 1.2 {INR} High 0.8 - 1.1 [facility] Coagulation tissue factor induced in platelet poor plasma 15.3 s High 11.8 - 14.3 [facility] INR in blood by coagulation During the induction phase of oral anticoagulation, the INR may not reflect the anticoagulation status of the patient. Therapeutic ranges for INR's are: Most clinical situations: INR 2.0-3.0 Mechanical Prosthetic Valve: INR 2.5-3.5 Critical: INR >5.0 Invalid Interpretation Code [facility] Basic Metabolic Panelon 10-15 Anion gap 16 mmol/L Invalid Interpretation Code 10 - 20 mmol/L [facility] Bicarbonate (HCO3) 30 mmol/L Invalid Interpretation Code 21 - 32 mmol/L [facility] BUN/Creatinine Ratio 16.2 mg/mg Invalid Interpretation Code 10.0 - 20.0 [facility] Calcium 9.5 mg/dL Invalid Interpretation Code 8.4 - 10.2 mg/dL [facility] Chloride 99 mmol/L Invalid Interpretation Code 98 - 108 mmol/L [facility] Creatinine 0.74 mg/dL Invalid Interpretation Code 0.4 - 1.1 mg/dL [facility] eGFR (non-black) 91 mL/min/{1.73_m2} Invalid Interpretation Code >=60 [facility] eGFR (non-black) The eGFR should be used for monitoring renal function only and not for medication dosing. Invalid Interpretation Code [facility] Glucose 130 mg/dL High 65 - 99 mg/dL [facility] Interpretation and review of laboratory results Abnormal Invalid Interpretation Code [facility] Potassium 4.8 mmol/L Invalid Interpretation Code 3.5 - 5.1 mmol/L [facility] Sodium 140 mmol/L Invalid Interpretation Code 135 - 145 mmol/L [facility] Urea nitrogen 12 mg/dL Invalid Interpretation Code 8 - 25 mg/dL [facility] CBCon 11-10-2017 Erythrocytes (RBC) 0.00 K/mcL Invalid Interpretation Code 0.00 - 0.00 [facility] Erythrocytes (RBC) 4.35 M/mcL Invalid Interpretation Code 4.00 - 5.20 [facility] Hematocrit (HCT) 35.3 % Low 36 - 46 % [facility] Hemoglobin (HGB) 10.9 g/dL Low 12 - 16 g/dL [facility] Interpretation and review of laboratory results Abnormal Invalid Interpretation Code [facility] MCH 25.1 pg Low 26 - 34 pg [facility] MCHC 30.9 g/dL Low 31 - 37 g/dL [facility] MCV 81.1 fL Invalid Interpretation Code 80 - 100 fL [facility] Nucleated erythrocytes/100 erythrocytes 0.0 % Invalid Interpretation Code [facility] Platelet mean volume (PMV) 11.1 fL Invalid Interpretation Code 9 - 15.5 fL [facility] Platelets 251 K/mcL Invalid Interpretation Code 150 - 400 [facility] RDW-CA 22.0 % High 11.6 - 14.8 % [facility] WBC (Leukocytes) 15.05 K/mcL High 4.50 - 11.00 [facility] PT/INRon 11-10-2017 Coagulation factor induced.INR assay in platelet poor plasma 1.1 {INR} Invalid Interpretation Code 0.8 - 1.1 [facility] Coagulation tissue factor induced in platelet poor plasma 13.8 s Invalid Interpretation Code 11.8 - 14.3 [facility] INR in blood by coagulation During the induction phase of oral anticoagulation, the INR may not reflect the anticoagulation status of the patient. Therapeutic ranges for INR's are: Most clinical situations: INR 2.0-3.0 Mechanical Prosthetic Valve: INR 2.5-3.5 Critical: INR >5.0 Invalid Interpretation Code [facility] Interpretation and review of laboratory results Normal Invalid Interpretation Code [facility] Fluoroscopy Greater Than 1 H ouron 11-09-2017 Fluoroscopy Greater Than 1 Hour This is an auto finalized result. Please refer to patient chart for further information. Invalid Interpretation Code [facility] PT/INRon 11-09-2017 Coagulation factor induced.INR assay in platelet poor plasma 1.1 {INR} Invalid Interpretation Code 0.8 - 1.1 [facility] Coagulation tissue factor induced in platelet poor plasma 13.7 s Invalid Interpretation Code 11.8 - 14.3 [facility] INR in blood by coagulation During the induction phase of oral anticoagulation, the INR may not reflect the anticoagulation status of the patient. Therapeutic ranges for INR's are: Most clinical situations: INR 2.0-3.0 Mechanical Prosthetic Valve: INR 2.5-3.5 Critical: INR >5.0 Invalid Interpretation Code [facility] Interpretation and review of laboratory results Normal Invalid Interpretation Code [facility] Type and Screenon 11-09-2017 ABO+Rh group Positive Invalid Interpretation Code [facility] Blood group antibody presence Negative Invalid Interpretation Code [facility] Specimen Expires 11/12/2017 23:59 EST Invalid Interpretation Code [facility] XR FLUOROSCOPY GREATER THAN ONE HOURon 11-09-2017 XR FLUOROSCOPY GREATER THAN ONE HOUR This is an auto finalized result. Please refer to patient chart for further information. information. information. Normal [facility] Comment on above: Order Comment: Reaso n for exam?:hip painInjury/Trauma or Illness?:Illness/OtherHow long have you had these symptoms (acute/chronic)?:ChronicType of Exam?:OngoingAdditional signs and symptoms?:n/aFluoro time in minutes:.2Fluoro dose in mGy?:1.04 XR OR HIP LEFT 1 VIEWon 10-15 XR OR HIP LEFT 1 VIEW EXAMINATION:XR OR HIP LEFT 1 VIEWHISTORY:ORDERING SYSTEM PROVIDED HISTORY: surgery, TECHNOLOGIST PROVIDED HISTORY: Reason for exam: hip painIllness/OtherEnc ounter Type: OngoingAdditional signs and symptoms: n/aFluoro dose in mGy: 1.04ORDERING SYSTEM PROVIDED DIAGNOSIS CODES:COMPARISON:Primo ateral hip examination from 12/24/[address] [facility].FLUOROSCOPY TIME:Fluoro Dose Ka,r mGy: Fluoro dose in Ka,r mGy: 1.040.2 minutesFINDINGS:Sing le fluoroscopic image of the left hip is submitted demonstrating postoperative changes of left hip arthroplasty. The acetabular and femoral components visualized on the single fluoroscopic image are well seated. Inferior portion of the femoral component is excluded. Alignment appears to be near anatomic.Telebit/TBT GroupWork station ID: [id number] by: KYREE GARRIDO on WedNov 09, 2017 9:33:10 AM ESTTranscribed by: MARTY JONES on WedNov 09, 2017 10:07:06 AM ESTFinalized by: KYREE GARRIDO on WedNov 09, 2017 4:03:19 PM EST Normal [facility] Comment on above: Order Comment: Reaso n for exam?:hip painInjury/Trauma or Illness?:Illness/OtherHow long have you had these symptoms (acute/chronic)?:ChronicType of Exam?:OngoingAdditional signs and symptoms?:n/aFluoro time in minutes:.2Fluoro dose in mGy?:1.04 XR OR Hip Left 1 Viewon 10-15 XR OR Hip Left 1 View Interface, Rad In [email or web address] Speechq - 11/09/2017 4:06 PM EST EXAMINATION: XR OR HIP LEFT 1 VIEW HISTORY: ORDERING SYSTEM PROVIDED HISTORY: surgery, TECHNOLOGIST PROVIDED HISTORY: Reason for exam: hip pain Illness/Other Encounter Type: Ongoing Additional signs and symptoms: n/a Fluoro dose in mGy: 1.04 ORDERING SYSTEM PROVIDED DIAGNOSIS CODES: COMPARISON: Bilateral hip examination from 12/24/[address] [facility]. FLUOROSCOPY TIME: Fluoro Dose Ka,r mGy: Fluoro dose in Ka,r mGy: 1.04 0.2 minutes FINDINGS: Single fluoroscopic image of the left hip is submitted demonstrating postoperative changes of left hip arthroplasty. The acetabular and femoral components visualized on the single fluoroscopic image are well seated. Inferior portion of the femoral component is excluded. Alignment appears to be near anatomic. [employer] Workstation ID: [id number] Invalid Interpretation Code [facility] XR OR Hip Left 1 View EXAMINATION: XR OR HIP LEFT 1 VIEW HISTORY: ORDERING SYSTEM PROVIDED HISTORY: surgery, TECHNOLOGIST PROVIDED HISTORY: Reason for exam: hip pain Illness/Other Encounter Type: Ongoing Additional signs and symptoms: n/a Fluoro dose in mGy: 1.04 ORDERING SYSTEM PROVIDED DIAGNOSIS CODES: COMPARISON: Bilateral hip examination from 12/24/[address] [facility]. FLUOROSCOPY TIME: Fluoro Dose Ka,r mGy: Fluoro dose in Ka,r mGy: 1.04 0.2 minutes FINDINGS: Single fluoroscopic image of the left hip is submitted demonstrating postoperative changes of left hip arthroplasty. The acetabular and femoral components visualized on the single fluoroscopic image are well seated. Inferior portion of the femoral component is excluded. Alignment appears to be near anatomic. [employer] Workstation ID: [id number] Invalid Interpretation Code [facility] APTTon 10-21-2017 aPTT 30 s Invalid Interpretation Code 23 - 34 [facility] aPTT Therapeutic range for APTT's is 68 - 104 seconds Invalid Interpretation Code [facility] Interpretation and review of laboratory results Normal Invalid Interpretation Code [facility] Albuminon 10-21-2017 Albumin 4.5 g/dL Invalid Interpretation Code 3.2 - 5.2 g/dL [facility] PT/INRon 10-21-2017 Coagulation factor induced.INR assay in platelet poor plasma 1.3 {INR} High 0.8 - 1.1 [facility] Coagulation tissue factor induced in platelet poor plasma 15.6 s High 11.8 - 14.3 [facility] INR in blood by coagulation During the induction phase of oral anticoagulation, the INR may not reflect the anticoagulation status of the patient. Therapeutic ranges for INR's are: Most clinical situations: INR 2.0-3.0 Mechanical Prosthetic Valve: INR 2.5-3.5 Critical: INR >5.0 Invalid Interpretation Code [facility] Interpretation and review of laboratory results Abnormal Invalid Interpretation Code [facility] Type and Screenon 10-21-2017 ABO+Rh group Positive Invalid Interpretation Code [facility] Blood group antibody presence Negative Invalid Interpretation Code [facility] TRANSFUSION SERVICES Specimen Expires 11/08/2017 23:59 EST Invalid Interpretation Code [facility] TRANSFUSION SERVICES SCAN OTHER ORDERSon 09-23-19 18 SCAN OTHER ORDERS Ordered by an unspecified provider. Invalid Interpretation Code [facility] Vital Signs Date Time Vital Sign Value Performing Clinician Facility 08-25-2022 12:58-0500 Blood Pressure Location DIANAYOHANA DILLARDRY [facility] 08-25-2022 12:58-0500 Diastolic blood pressure 84 mm[Hg] DIANA MCNEIL [facility] 08-25-2022 12:58-0500 Heart rate 77 /min DIANAYOHANA MCNEIL [facility] 08-25-2022 12:58-0500 Respiratory rate 16 /min DIANAYOHANA MCNEIL [facility] 08-25-2022 12:58-0500 Systolic blood pressure 140 mm[Hg] DIANA MCNEIL [facility] 11-11-2017 07:27-0500 Body Temperature 97.9 [degF] [facility] 11-11-2017 07:27-0500 BP Diastolic 71 mm[Hg] [facility] 11-11-2017 07:27-0500 BP Systolic 111 mm[Hg] [facility] 11-11-2017 07:27-0500 Pulse (Heart Rate) 57 /min [facility] 11-11-2017 07:27-0500 Pulse Oximetry 93 % [facility] 11-11-2017 07:27-0500 Respiratory Rate 15 /min [facility] 11-09-2017 06:26-0500 BMI (Body Mass Index) 36.32 kg/m2 [facility] 11-09-2017 06:26-0500 Height 165.1 cm [facility] 11-09-2017 06:26-0500 Weight 99 kg [facility] 10-21-2017 12:12-0500 BMI (Body Mass Index) 35.59 kg/m2 Rossana Dotson [facility] Work Phone: 10-21-2017 12:12-0500 Body Temperature 99.7 [degF] Rossana Dotson [facility] Work Phone: 10-21-2017 12:12-0500 BP Diastolic 93 mm[Hg] Rossana Dotson [facility] Work Phone: 10-21-2017 12:12-0500 BP Systolic 160 mm[Hg] [facility] Work Phone: 10-21-2017 12:12-0500 Height 165.1 cm Rossana Dotson [facility] Work Phone: 10-21-2017 12:12-0500 Pulse (Heart Rate) 88 /min Rossana Dotson [facility] Work Phone: 10-21-2017 12:12-0500 Pulse Oximetry 94 % Rossana Dotson [facility] Work Phone: 10-21-2017 12:12-0500 Weight 97 kg Rossana Dotson [facility] Work Phone: Encounters Encounter Date Encounter Type Care Provider Facility Start: 09-14-2023 End: 09-15-2023 ambulatory DIANA MCNEIL [facility] Start: 09-14-2023 End: 09-14-2023 Lab Drop off DIANA MCNEIL [facility] Start: 08-25-2023 End: 08-26-2023 ambulatory DIANA MCNEIL Facility:[facility] Start: 08-20-2023 End: 09-13-2023 ambulatory [facility] Start: 08-19-2023 End: 08-19-2023 ambulatory Alexander Chen DO Facility:[facility] Start: 08-10-2023 End: 08-11-2023 ambulatory Alexander Chen DO Facility:[facility] Start: 07-26-2023 End: 07-26-2023 ambulatory MAURO NAPIER Not Available Start: 07-05-2023 End: 07-05-2023 ambulatory Alexander Chen DO Facility:[facility] Start: 06-25-2023 End: 06-25-2023 ambulatory Alexander Chen Facility:[facility] Start: 06-21-2023 End: 06-22-2023 ambulatory Alexander Chen DO Facility:[facility] Start: 03-19-2023 End: 03-19-2023 ambulatory Alexander Chen Facility:[facility] Start: 03-19-2023 End: 03-19-2023 ambulatory DO Alexander Chen Work Phone: [facility] Work Phone: Start: 03-19-2023 End: 03-19-2023 Patient encounter procedure DO Alexander Chen Work Phone: [facility] [place] Work Phone: Start: 09-25-2022 End: 09-26-2022 ambulatory 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 Facility:[facility] Start: 09-22-2022 End: 09-22-2022 ambulatory Alexander Chen Facility:[facility] Start: 08-25-2022 End: 08-25-2022 Patient encounter procedure DIANA MCNEIL [facility] Start: 08-07-2022 End: 08-08-[address] ТАТЬЯНА JONES JR Facility:[facility] Start: 06-16-2022 End: 06-16-[address] PASHA PAIGE Facility:[facility] Start: 06-05-2022 End: 06-06-[address] PASHA PAIGE Facility:[facility] Start: 12-10-2021 End: 12-11-2021 ambulatory SHEREE JIAN Elvira [facility] Start: 12-10-2021 End: 12-10-2021 Subsequent hospital visit by physician Alexander Chen Work Phone: [facility] Start: 08-30-2018 End: 09-01-2018 Evaluation and management of inpatient LINA TRACY [facility] Start: 08-16-2018 End: 08-17-2018 Patient encounter procedure LINA TRACY [facility] Start: 08-16-2018 Encounter for other preprocedural examination [facility] Start: 08-16-2018 Encounter for preprocedural cardiovascular examination [facility] Start: 08-16-2018 End: 08-16-2018 Patient encounter procedure LINA TRACY [facility] Start: 02-23-2018 End: 02-23-2018 Ambulatory ROSANGELA MILES [facility] Start: 11-09-2017 End: 11-11-2017 Evaluation and management of inpatient LINA TRACY [facility] Start: 11-09-2017 End: 11-11-2017 Evaluation and management of inpatient Lina Ng Work Phone: [facility] Start: 10-21-2017 End: 10-21-2017 Patient encounter procedure LINA TRACY [facility] Start: 10-21-2017 Patient encounter Lina Ng Work Phone: [facility] Preadmission Testing Encounter for other preprocedural examination [facility] Encounter for preprocedural cardiovascular examination [facility] Procedures Date Procedure Procedure Detail Performing Clinician Start: 07-08-2020 Laparoscopic bilater al oophorectomy DIANA MCNEIL Start: 02-06-2020 Cauterization of int ernal nose DIANA MCNEIL Start: 03-10-2018 Cystourethroscopy wi th dilation of urethral stricture DIANA MCNEIL Start: 11-09-2017 End: 11-09-2017 LEFT TOTAL HIP ARTHROPLASTY ANTERIOR APPROACH Lina Rossana Glenn Work Phone: Start: 09-13-2017 Prosthetic arthropla sty of the hip DIANA MCNEIL Start: 09-13-2015 Extraction of cataract DIANA MCNEIL Start: 09-13-2014 Vena cava filter (ph ysical object) DIANA MCNEIL Start: 09-13-2008 Discectomy of spine JOSSELYN MCNEIL Start: 09-13-1997 History of operative procedure on knee DIANA MCNEIL Start: 09-13-1987 Cystoscope, device ( physical object) DIANA MCNEIL Start: 09-13-1986 section CLYDE MCNEIL Plan of Treatment Date Care Activity Detail Author Start: 08-29-2024 ambulatory Ambulatory Facility:[facility] [place] Start: 03-19-2023 Hemolytic complement CH50 level [facility] Start: 05-14-2021 Influenza vaccination Flu vaccine (# 1) [facility] Start: 11-09-2017 Ambulatory [facility] Start: 09-27-2017 Thyroid stimulating hormone measurement TSH testing [facility] Start: 05-14-2017 Influenza vaccination SEQUENTI AL INFLUENZA VACCINE (#1) [facility] Work Phone: Start: 2011 Screening for malign ant neoplasm of breast Breast cancer screen [facility] Start: 2011 Shingles Vaccine (1 of 2) Shingles Vaccine (1 of 2) [facility] Start: 2006 Screening for malign ant neoplasm of colon [facility] Start: 1991 Screening for malign ant neoplasm of cervix [facility] Start: 1982 Screening for malign ant neoplasm of cervix Pap smear [facility] Start: 1980 DTaP/Tdap/Td vaccine (1 - Tdap) DTaP/Tdap/Td vaccine (1 - Tdap) [facility] Start: 1976 HIV screening HIV screen [facility] Start: 1973 Depression Monitoring Depression Mon itoring [facility] Start: 1971 Lipid panel Lipid screen [facility] Start: 1966 COVID-19 Vaccine (1) COVID-19 Vaccin e (1) [facility] Start: 1961 Hepatitis C screening Hepatitis C sc devante [facility] Start: 1961 HEPATITIS C SCREENING HEPATITIS C SC EDITH [facility] Work Phone: Start: 1961 Screening colonoscopy COLONOSCOPY [facility] Work Phone: Start: 1961 Screening for malign ant neoplasm of cervix PAP SMEAR [facility] Work Phone: Start: 1961 Tetanus vaccination TETANUS EVERY 10 YR [employer] Work Phone: Complement C3 [Mass/volume] in Serum or Plasma [facility] Complement C4 [Mass/volume] in Serum or Plasma [facility] ECG 12 Lead ECG 12 Lead Rout ine Pre-op exam Ordered: 10/21/2017 [employer] Work Phone: HbA1c Hemoglobin A1c R outine 10/21/2017 12:20 PM EST [employer] Work Phone: End: 12-10-2021 Lipid panel [facility] Work Phone: Comment on above: Once for 1 Occurrenc es starting 12/10/2021 until 12/10/2021 Nicotine and Metabolites, Blood Nicotine and Metabolites, Blood Routine 10/21/2017 12:20 PM EST [employer] Phone: Vitamin D, Total, 25-OH Vitamin D, Total, 25-OH Routine 10/21/2017 12:20 PM EST [employer] Work Phone: Immunizations Immunization Date Immunization Notes Care Provider Nabeel rand 07-23-2023 influenza virus vaccine, unspecified formulation DIANA MCNEIL [facility] 01-16-2021 SARS-CoV-2 (COVID-19 ) mRNA-1273 vaccine DIANA MCNEIL [facility] 01-14-2021 SARS-CoV-2 (COVID-19 ) mRNA-1273 vaccine DIANA MCNEIL [facility] Comment on above: Result Comment: 2021: [id number] 12-19-2020 SARS-CoV-2 (COVID-19 ) mRNA-0503 vaccine DIANA EWA [facility] 06-13-2020 influenza virus vaccine, unspecified formulation DIANA EWA [facility] 2020 influenza virus vaccine, unspecified formulation DIANA EWA [facility] 06-27-2019 zoster vaccine recombinant DIANA EWA [facility] 04-25-2019 zoster vaccine recombinant DIANA EWA [facility] 06-26-2018 influenza virus vaccine, unspecified formulation DIANA EWA [facility] 06-13-2018 influenza virus vaccine, unspecified formulation DIANA EWA [facility] 03-08-2018 pneumococcal conjuga te vaccine, 13 valent DIANA EWA [facility] 06-14-2017 influenza virus vaccine, unspecified formulation DIANA EWA [facility] Payers Date Payer Category Payer Medicare [id number] 2022 Self-pay [id number] 2022 [employer] ( and others) 2022 Medicare 2020 [employer] ( and others) [id number] 2003 Medicare [id number] 1961 Unknown [id number] 2.16.840.1.891442.3.579.2.902 1961 Unknown [id number] 2.16.840.1.610840.3.579.2.902 1961 Unknown [id number] 2.16.840.1.130457.3.579.2.902 1961 Unknown [id number] 2.16.840.1.930779.3.579.2.902 1961 Unknown [id number] 2.16.840.1.784343.3.579.2.902 1961 Unknown [id number] 2.16.840.1.871820.3.579.2.593 1961 Unknown [id number] 2.16.840.1.202180.3.579.2.593 1961 Unknown [id number] 2.16.840.1.664106.3.579.2.593 1961 Unknown [id number] 2.16.840.1.215706.3.579.2.1259 1961 Unknown [id number] 2.16.840.1.229355.3.579.2.196 1961 Unknown [id number] 2.16.840.1.360223.3.579.2.196 1961 Unknown [id number] 2.16.840.1.059952.3.579.2.196 1961 Unknown [id number] 2.16.840.1.475113.3.579.2.196 1961 Unknown [id number] 2.16.840.1.670812.3.579.2.196 1961 Unknown [id number] 2.16.840.1.592470.3.579.2.196 1961 Unknown [id number] 2.16.840.1.445780.3.579.2.1286 1961 Unknown [id number] 2.16.840.1.761746.3.579.2.727 1961 Unknown [id number] 2.16.840.1.504614.3.579.2.727 1961 Unknown [id number] 2.16.840.1.119235.3.579.2.727 1961 Unknown [id number] 2.16.840.1.054252.3.579.2.727 1959 Medicare [id number] 1959 Unknown [id number] 2.16.840.1.043479.3.249.13 Medicare xxxxxxxxxx 2.16.840.1.930189.3.249.13 Unknown [id number] 2.16.840.1.127993.3.249.13 Unknown [id number] 2.16.840.1.376891.3.579.2.531 Unknown [id number] 2.16.840.1.462392.3.579.2.531 Unknown [id number] 2.16.840.1.822203.3.579.2.531 Social History Date Type Detail Facility Start: 11-09-2017 End: 08-25-2023 Tobacco smoking status [facility] Never smoker [facility] Start: 1960 Sex Assigned At Not on file [employer] Work Phone: Tobacco smoking status Never [facility] Sex Assigned At Female [facility] Start: 1960 Sex Assigned At Female [facility] Medical Equipment Procedure Code Equipment Code Equipment Origin al Text Equipment Identifier Dates Liner 32mm C Fla t [place] Mpact - [id number] Start: 11-09-2017 Shell 48mm 2hl A cet Mpact - [id number] Start: 11-09-2017 Stem Sz2 Std Fem Prox Coat Ti Amistem-H - [id number] Start: 11-09-2017 Head 32mm +4 Fem Biolox Delta Mectacer - [id number] Start: 11-09-2017 Functional Status Date Assessment Result Facility 08-25-2022 Functional Status N/A [facility] Clinical Notes 08-25-2022 to 08-19-2023 Note Date & Type Note Facility 08-19-2023 Note PROCEDURE: Bilateral T9-10 transforaminal epidural steroid injection under fluoroscopic guidance. Physician: Lina Schwab M.D. PRE- AND POSTOPERATIVE DIAGNOSES: Intervertebral disc stenosis neural canal thoracic region. SOLUTION USED: Decadron 10mg, Marcaine 0.25% plus lidocaine. COMPLICATIONS: None. ANESTHESIA: Local. PROCEDURE DESCRIPTION: After informed consent was obtained, the patient was brought to the operating room and was placed in the prone position. Standard ASA monitoring was applied and sedation was initiated. The skin overlying the area was prepped and draped in standard sterile fashion. A 25-gauge spinal needle was inserted over the anesthetized area and directed toward the indicated nerve root foramen under fluoroscopic guidance. Omnipaque dye 0.3 mL was injected and appropriate epidural distribution was confirmed without intravascular or intrathecal spread. Subsequently, 1 mL of the corticosteroid and local anesthetic solution was injected. The needle was removed. The patient was then turned supine onto the gurney and transferred to the recovery area in stable condition, to be discharged home after meeting criteria and follow up as per treatment plan. This document serves as a record of the services and decisions personally performed and made by the attending provider. It was created on his/her behalf by a trained medical dermatologist. The creation of this document is based on the provider?s statements to the medical dermatologist. Electronically signed by Lina Schwab MD 08/19/23 11:53 EST Electronically signed by Krupa Toscano 08/19/2023 11:50 [facility] 08-19-2023 Note History of Present I llness CHIEF COMPLAINT: Mid back pain HISTORY OF PRESENT ILLNESS: Debilitating neck pain which worsens with thoracic foramen closure maneuvers, failing conservative measures markedly impairing function indicating the appropriateness for transforaminal epidural steroid blockade. PHYSICAL EXAM: HEENT: Normocephalic, atraumatic. RESPIRATIONS: Unlabored ABDOMEN: Soft nontender MUSCULOSKELETAL: Pain that does re-create dorsal foramen closure maneuvers. REVIEW OF SYSTEMS: Brief review of systems was conducted. Complaints are noncontributory for cauda equina or myelopathic complaints, fever chills or sweats or unintended weight loss or gain. ASSESSMENT: Intervertebral disc stenosis neural canal thoracic region. PLAN: Neurogenic discomfort secondary to disc and spondylitic reactivity precipitating neural foraminal narrowing and lateral recess stenosis. For complaints that have failed conservative measures, candidacy has been established for epidural steroid blockade transforaminal approach for diagnostic and potential therapeutic benefit. Risks benefits alternatives have been discussed, we agree to proceed. The patient presents with medical necessity suggestive of the appropriateness of monitored anesthesia care for interventional pain procedure. The rationale includes the presence of the medical comorbidity, T9-10. Untreated and unmonitored, there would be expectant adverse cardiac and potentially respiratory events precipitating adverse physical reaction. The use of monitored anesthesia care for the purpose of providing monitored cardiorespiratory response is appropriate to suzanne the potential symptomatology of precipitated by untreated and unmonitored medical comorbidity. Physical Exam Vitals & Measurements HR: 80 (Peripheral) RR: 16 BP: 145/79 HT: 167 cm WT: 97.5 kg Additional Vitals No qualifying data available. This document serves as a record of the services and decisions personally performed and made by the attending provider. It was created on his/her behalf by a trained medical dermatologist. The creation of this document is based on the provider?s statements to the medical dermatologist. Problem List/Past Medical History Ongoing Anemia Angina Antiphospholipid syndrome Asthma Blood clot Cervical neuritis Cervical postlaminectomy syndrome Cervical spondylosis Cervicalgia Chronic cervical pain Chronic low back pain Chronic sacroiliac joint pain Chronic thoracic back pain CVA Depression Disc displacement, thoracic GERD Hashimotos disease Hypertension Hypothyroidism Intercostal neuritis Kidney stone Left rib fracture Lumbar neuritis Lumbar postlaminectomy syndrome Lumbosacral spondylosis Lupus anticoagulant disorder Mononeuritis Myalgia Obesity Osteoarthritis Post laminectomy syndrome Postlaminectomy syndrome of cervical region Sacroiliac joint pain Spondylosis of cervical spine Thoracic back pain Thoracic degenerative disc disease Thoracic neuritis Thoracic spinal stenosis Thoracic spondylosis TIA TMJ Historical No qualifying data Procedure/Surgical History cataract surgery Hernia repair (1960) (09/1966) back surgery (09/01/1995) LT knee surgery (08/1998) Lithotripsy, extracorporeal shock wave (01/2006) LT knee surgery (01/2006) uterine ablation (2008) Neck surgery (06/2009) IVC filter (12/2014) Thoracic Radiofrequency Ablation (Left) (08/11/2016) Hip Injection (Left) (08/13/2016) Thoracic Radiofrequency Ablation (Right) (08/27/2016) Cervical/Thoracic Transforaminal Epidural Steroid Injection (Bilateral) (11/24/2016) Cervical/Thoracic Dorsal Medial Branch Block (Bilateral) (12/15/2016) Cervical/Thoracic Dorsal Medial Branch Block (Bilateral) (01/12/2017) Cervical Radiofrequency Ablation (Right) (02/09/2017) Cervical Radiofrequency Ablation (Left) (02/23/2017) Thoracic Radiofrequency Ablation (Left) (05/13/2017) Thoracic Radiofrequency Ablation (Right) (05/27/2017) Cervical/Thoracic Transforaminal Epidural Steroid Injection (Bilateral) (09/03/2017) Thoracic Radiofrequency Ablation (Left) (01/20/2018) Thoracic Radiofrequency Ablation (Right) (02/03/2018) Cervical/Thoracic Transforaminal Epidural Steroid Injection (Bilateral) (03/24/2018) Lumbar/Sacral Dorsal Medial Branch Block (Bilateral) (04/07/2018) Lumbar/Sacral Dorsal Medial Branch Block (Bilateral) (04/21/2018) Lumbar Radiofrequency Ablation (Left) (05/12/2018) Lumbar Radiofrequency Ablation (Right) (05/26/2018) Cervical/Thoracic Transforaminal Epidural Steroid Injection (Bilateral) (07/14/2018) Cervical/Thoracic Transforaminal Epidural Steroid Injection (Bilateral) (07/28/2018) right hip replacement (08/30/2018) right hip replacement (08/30/2018) Intercostal Nerve Block (Bilateral) (09/23/2018) Thoracic Radiofrequency Ablation (Left) (10/28/2018) Thoracic Radiofrequency Ablation (Right) (11/11/2018) Cervical/Thoracic Transforaminal Epidural (more content not included)... [facility] 07-05-2023 Note PROCEDURE: Radiofreq uency ablation of the bilateral L4-5, L5-S1 dorsal medial rami under fluoroscopic guidance. Physician: Lina Schwab M.D. PRE- AND POSTOPERATIVE DIAGNOSES: Lumbosacral spondylosis without myelopathy COMPLICATIONS: None. ANESTHESIA: Local SOLUTION Marcaine 0.25% 3ml with Kenalog 80mg PROCEDURE DESCRIPTION: After informed consent, the patient was brought to the OR and placed in the prone position. The skin overlying the area was prepped and draped in standard sterile fashion. A 25-gauge needle was used to raise a skin wheal with 2% lidocaine over the initial DMR, which was identified under fluoroscopy. Subsequently, a radiofrequency needle with a 10 mm active tip was inserted through the anesthetized area and directed toward the first DMR under fluoroscopic guidance. After encountering the same, we had positive sensory stimulation at 0.5 mA and negative motor stimulation at 2.5 mA. Thus, two lesions were created at this level, which were conducted at 80?C for 90 seconds. This was repeated in a similar fashion on the remaining indicated levels. Post lesioning we instilled 1 mL from a 5 mL solution of Marcaine 0.25% and Kenalog 80 mg. The needles were then removed. The patient was turned supine onto the gurney and transferred to the recovery area in stable condition, to be discharged home after meeting criteria and follow up as per treatment plan. This document serves as a record of the services and decisions personally performed and made by the attending provider. It was created on his/her behalf by a trained medical dermatologist. The creation of this document is based on the provider?s statements to the medical dermatologist. Electronically signed by Lina Schwab MD 07/05/23 12:08 EDT Electronically signed by Makeda Richard Anthony 07/05/2023 11:51 EDT Electronically signed by Makeda Richard Anthony 07/05/2023 12:06 EDT [facility] 07-05-2023 Note History of Present I llness CHIEF COMPLAINT: Low Back pain HISTORY OF PRESENT ILLNESS: Debilitating spinal pain which worsens with facet loading maneuvers. The patient's axial symptoms, without evidence of nerve compression, have failed physical and medical measures. PHYSICAL EXAM: HEENT: Normocephalic, atraumatic. RESPIRATIONS: Unlabored ABDOMEN: Soft nontender MUSCULOSKELETAL: Pain that does re-create with lumbar loading. REVIEW OF SYSTEMS: Brief review of systems was conducted. Complaints are noncontributory for cauda equina or myelopathic complaints, fever chills or sweats or unintended weight loss or gain. ASSESSMENT: Lumbosacral spondylosis without myelopathy PLAN: Debilitating mechanical pain does worsen with facet loading maneuvers. For symptomatology that has failed conservative measures and did reveal an 80% reduction in complaints after two diagnostic joint nerve blockade with a baseline return 120 minutes post procedure meets criteria for rhizotomy therapy in attempt to improve with quality and function. Risks benefits and alternatives have been discussed, we agree to proceed. Physical Exam Vitals & Measurements T: 37.5 ?C (Oral) HR: 85 (Peripheral) RR: 16 BP: 135/75 SpO2: 92% HT: 165 cm WT: 95 kg Additional Vitals No qualifying data available. This document serves as a record of the services and decisions personally performed and made by the attending provider. It was created on his/her behalf by a trained medical dermatologist. The creation of this document is based on the provider?s statements to the medical dermatologist. Problem List/Past Medical History Ongoing Anemia Angina Antiphospholipid syndrome Asthma Blood clot Cervical neuritis Cervical postlaminectomy syndrome Cervical spondylosis Cervicalgia Chronic cervical pain Chronic low back pain Chronic sacroiliac joint pain Chronic thoracic back pain CVA Depression Disc displacement, thoracic GERD Hashimotos disease Hypertension Hypothyroidism Intercostal neuritis Kidney stone Left rib fracture Lumbar neuritis Lumbar postlaminectomy syndrome Lumbosacral spondylosis Lupus anticoagulant disorder Mononeuritis Myalgia Obesity Osteoarthritis Post laminectomy syndrome Postlaminectomy syndrome of cervical region Sacroiliac joint pain Spondylosis of cervical spine Thoracic back pain Thoracic degenerative disc disease Thoracic neuritis Thoracic spinal stenosis Thoracic spondylosis TIA TMJ Historical No qualifying data Procedure/Surgical History cataract surgery Hernia repair (1960) (09/1966) back surgery (09/01/1995) LT knee surgery (08/1998) Lithotripsy, extracorporeal shock wave (01/2006) LT knee surgery (01/2006) uterine ablation (2008) Neck surgery (06/2009) IVC filter (12/2014) Thoracic Radiofrequency Ablation (Left) (08/11/2016) Hip Injection (Left) (08/13/2016) Thoracic Radiofrequency Ablation (Right) (08/27/2016) Cervical/Thoracic Transforaminal Epidural Steroid Injection (Bilateral) (11/24/2016) Cervical/Thoracic Dorsal Medial Branch Block (Bilateral) (12/15/2016) Cervical/Thoracic Dorsal Medial Branch Block (Bilateral) (01/12/2017) Cervical Radiofrequency Ablation (Right) (02/09/2017) Cervical Radiofrequency Ablation (Left) (02/23/2017) Thoracic Radiofrequency Ablation (Left) (05/13/2017) Thoracic Radiofrequency Ablation (Right) (05/27/2017) Cervical/Thoracic Transforaminal Epidural Steroid Injection (Bilateral) (09/03/2017) Thoracic Radiofrequency Ablation (Left) (01/20/2018) Thoracic Radiofrequency Ablation (Right) (02/03/2018) Cervical/Thoracic Transforaminal Epidural Steroid Injection (Bilateral) (03/24/2018) Lumbar/Sacral Dorsal Medial Branch Block (Bilateral) (04/07/2018) Lumbar/Sacral Dorsal Medial Branch Block (Bilateral) (04/21/2018) Lumbar Radiofrequency Ablation (Left) (05/12/2018) Lumbar Radiofrequency Ablation (Right) (05/26/2018) Cervical/Thoracic Transforaminal Epidural Steroid Injection (Bilateral) (07/14/2018) Cervical/Thoracic Transforaminal Epidural Steroid Injection (Bilateral) (07/28/2018) right hip replacement (08/30/2018) right hip replacement (08/30/2018) Intercostal Nerve Block (Bilateral) (09/23/2018) Thoracic Radiofrequency Ablation (Left) (10/28/2018) Thoracic Radiofrequency Ablation (Right) (11/11/2018) Cervical/Thoracic Transforaminal Epidural Steroid Injection (Bilateral) (12/08/2018) Lumbar Radiofrequency Ablation (Bilateral) (05/16/2019) Thoracic Hemilaminectomy Disectomy (05/30/2019) Exploratory Laparoscopy (07/21/2019) Cervical/Thoracic Nerve Root Injection (Left) (08/01/2019) Cervical/Thoracic Nerve Root Injection (Left) (08/24/2019) Intercostal Nerve Block (Bilateral) (09/28/2019) Cervical/Thoracic Transforaminal Epidural Steroid Injection (Bilateral) (01/24/2020) Lumbar Radiofrequency Ablation (Bilateral) (02/08/2020) Thoracic Radiofrequency Ablation (Bilateral) (02/29/2020) Cervical/Thoracic (more content not included)... [facility] 08-25-2022 Hospital Discharge instructions Patient Education 08/25/2022 13:32:50 Kidney Stones, Uswo-ru-Axst Kidney Stones Kidney stones are rock-like masses that form inside of the kidneys. Kidneys are organs that make pee (urine). A kidney stone may move into other parts of the urinary tract, including: The tubes that connect the kidneys to the bladder (ureters). The bladder. The tube that carries urine out of the body (urethra). Kidney stones can cause very bad pain and can block the flow of pee. The stone usually leaves your body (passes) through your pee. You may need to have a doctor take out the stone. What are the causes? Kidney stones may be caused by: A condition in which certain glands make too much parathyroid hormone (primary hyperparathyroidism). A buildup of a type of crystals in the bladder made of a chemical called uric acid. The body makes uric acid when you eat certain foods. Narrowing (stricture) of one or both of the ureters. A kidney blockage that you were born with. Past surgery on the kidney or the ureters, such as gastric bypass surgery. What increases the risk? You are more likely to develop this condition if: You have had a kidney stone in the past. You have a family history of kidney stones. You do not drink enough water. You eat a diet that is high in protein, salt (sodium), or sugar. You are overweight or very overweight (obese). What are the signs or symptoms? Symptoms of a kidney stone may include: Pain in the side of the belly, right below the ribs (flank pain). Pain usually spreads (radiates) to the groin. Needing to pee often or right away (urgently). Pain when going pee (urinating). Blood in your pee (hematuria). Feeling like you may vomit (nauseous). Vomiting. Fever and chills. How is this treated? Treatment depends on the size, location, and makeup of the kidney stones. The stones will often pass out of the body through peeing. You may need to: Drink more fluid to help pass the stone. In some cases, you may be given fluids through an IV tube put into one of your veins at the hospital. Take medicine for pain. Make changes in your diet to help keep kidney stones from coming back. Sometimes, medical procedures are needed to remove a kidney stone. This may involve: A procedure to break up kidney stones using a beam of light (laser) or shock waves. Surgery to remove the kidney stones. Follow these instructions at home: Medicines Take xqpl-ton-covijfw and prescription medicines only as told by your doctor. Ask your doctor if the medicine prescribed to you requires you to avoid driving or using heavy machinery. Eating and drinking Drink enough fluid to keep your pee pale yellow. You may be told to drink at least 8 10 glasses of water each day. This will help you pass the stone. If told by your doctor, change your diet. This may include: ?Limiting how much salt you eat. ?Eating more fruits and vegetables. ?Limiting how much meat, poultry, fish, and eggs you eat. Follow instructions from your doctor about eating or drinking restrictions. General instructions Collect pee samples as told by your doctor. You may need to collect a pee sample: ?24 hours after a stone comes out. ?8 12 weeks after a stone comes out, and every 6 12 months after that. Strain your pee every time you pee (urinate), for as long as told. Use the strainer that your doctor recommends. Do not throw out the stone. Keep it so that it can be tested by your doctor. Keep all follow-up visits as told by your doctor. This is important. You may need follow-up tests. How is this prevented? To prevent another kidney stone: Drink enough fluid to keep your pee pale yellow. This is the best way to prevent kidney stones. Eat healthy foods. Avoid certain foods as told by your doctor. You may be told to eat less protein. Stay at a healthy weight. Where to find more information National Kidney Foundation (NKF): www.kidney.org [employer] (UCF): www.urologyhealth.org Contact a doctor if: You have pain that gets worse or does not get better with medicine. Get help right away if: You have a fever or chills. You get very bad pain. You get new pain in your belly (abdomen). You pass out (faint). You cannot pee. Summary Kidney stones are rock-like masses that form inside of the kidneys. Kidney stones can cause very bad pain and can block the flow of pee. The stones will often pass out of the body through peeing. Drink enough fluid to keep your pee pale yellow. This information is not intended to replace advice given to you by your health care provider. Make sure you discuss any questions you have with your health care provider. Document Released: 02/15/2009 Document Revised: 01/16/2020 Document Reviewed: 01/16/2020 [employer] Patient Education 2020 [employer]. Follow Up Care 08/12/2021 11:07:07 With:DIANA MCNEIL PA-C, URL Address: When:1 year [facility] Evaluation + Plan note Future Appointments Appointment Date:08/25/2023 01:00:00 PM Scheduled Provider:DIANA MCNEIL PA-C Location:[facility] Appointment Type:URO Office Visit [facility] Evaluation + Plan note Future Appointments Appointment Date:08/29/2024 10:00:00 AM Scheduled Provider:DIANA MCNEIL PA-C Location:[facility] Appointment Type:URO Office Visit Diagnostic Tests PendingUrine Culture 09/14/23 [facility] Evaluation note No assessment inform ation available [facility] Work Phone: Hospital course Narrative No data available for this section [facility] Discharge instructions No data available for this section [facility] Progress note No data available for this section [facility] Discharge Instructions * Discharge Instr - Other Orders - Char Veras RN - 11/11/2017 11:16 AM EST Pt given discharge instructions and scripts. Verbalizes understanding. All belongings packed up. Ptshowering prior to d/c home. * Ingrid Ruiz, CRISTOBAL - 11/09/2017 Home Care After Anterior Total Hip Surgery The following instructions will help you care for yourself, or be cared for upon your return home today. These are guidelines for your care right after surgery only. Diet: Advance as tolerated Activity: Full weight bearing with walker as tolerated. Use your walker until you follow- up in the office. DoNot Drive until cleared to do so by your surgeon. Wound Care and Hygiene: Please keep incision clean and dry. Please remove your Opsite (adhesive) dressing 7 days after surgery at home and then replace with a new Opsite dressing. After the dressing has been removed and replaced leave it in place until your 2 week follow-up appointment. Please do not use any lotions or creams on the incisions including Neosporin. You may shower with dressing on, do not soak it in water. Anesthesia Precautions & Expectations: After anesthesia, rest for [address], drink alcoholic beverages or make any important decisions during this time. General anesthesia may cause a sore throat, jaw discomfort or muscle aches. These symptoms can last for one or two days. What to Expect after surgery: Mild to moderate discomfort Call your Doctor for: Signs of infection such as fever, chills, increasing pain, green or yellow discharge from your wound, foul smell from your wound, increasing redness or swelling around the incisions, loss of functionof your leg or worse. Please call our office should you experience any of these symptoms. Signs of blood clot can include but are not limited to calf pain that does not go away with rest, shortness of breath or chest pain. Please seek immediate medical attention by going to local Emergency Department if these should occur. Your 2 week follow up appointment with Rosangela Dumont PA-C, as well as your six week follow up appointment with Dr. Ng should already be scheduled. If it is not, please call the office. Other Instructions: Medications: You will be given a list of your medications upon discharge. We have been discharged you home with pain medication, a blood thinner, a stool softener, and an anti-nausea medication. Take pain medication as prescribed. Take Lovenox and Coumadin as directed. Follow-up with PCP on Wednesday for INR check. Stop Lovenox at your PCP's discretion when INR is therapeutic. We have prescribed you a stool softener, Senokot, to help avoid constipation. You may take 1-2 tablets twice daily as needed after surgery. If you are still unable to have a bowel movement while taking Senokot, please call our office. Lastly, we have provided you with a prescription for Zofran (Odansetron), an anti-nausea medication. You do not need to fill this prescription unless you are nauseous after surgery. You may take Zofran 1 tablet every 8 hours as needed. If you have not had a bowel movement the day after surgery, please purchase magnesium citrate from your local pharmacy. Physical Therapy: Do home exercises as directed. Other: If you have selected to use the [employer] Unit, the hip wrap was placed on your operative hip immediately following surgery. To use the unit, connect the cloth cord to the hip wrap as well as to the [employer] Unit. Fill the unit with ice and water as instructed on the inside of the unit. Plug the power cord into the unit and into a wall outlet. Press the power button to turn unit on, select preset 1 and hit the start/play button. Use preset 1 for 24 hours and then use preset 2 for the remainderof your 2 weeks. You will return the [employer] Unit to our [place] office at your 2 week follow up visit with Rosangela Dumont PA-C. If you have been given an Iceman after surgery, please apply this to your hip regularly, twenty minutes on twenty minutes off, throughout the day. You should have a barrier, such as compression shorts, between your skin and the Iceman. You will be given knee high jw hose at discharge to wear at home after surgery. If you have an Iceman wear the jw hose on both of your legs at home. If you have a Game Ready only wear jw hose on your non-operative leg while using the Game Ready machine. If you are not using the Game Ready you may wear jw hose on both legs. Wearing jw hose at the same time as the Game Ready may cause swellingin your knee. You may remove jw hose to shower. Wear jw hose until your follow-up appointment. Additionally, you may find benefit in using compression shorts after surgery to help with reduce swelling and add extra support to the hip. You may wear this as often as you like during the first fewweeks after surgery. If you have any questions or concerns please do not hesitate to call our office at . SLEEP DISORDER RISK, HOME CARE INSTRUCTIONS - During your admission to the hospital, we identified you at risk of having a sleep disorder. Because of these initial findings, we recommend that you learn more about sleep disorders, talk to your primary care doctor and have further testing, such as a sleep study. Undiagnosed and untreated sleepapnea is very dangerous, especially after surgery and when you are taking any kind of sedation medication, including the prescribed medication given to you after surgery. -Obstructive sleep apnea (LAMONTE) is the most common type of sleep disorder. With LAMONTE, a person has short periods where they stop breathing while sleeping. This condition can be treated. If left untreated it can lead to heart attack, stroke, and even sudden -The most common test to diagnose a sleep disorder is a sleep study. During a sleep study, you go to a sleep center in the evening and you are monitored while you sleep. -The most common treatment for LAMONTE is using equipment that keeps your airway open while you sleep. If you need treatment, the doctor will explain this to you and you will be instructed on how to use the equipment. With treatment, most people feel better and have more energy within a few days. Treatment also helps prevent other medical conditions. - Until you are able to be evaluated to determine if you have sleep apnea you should sleep with your head of bed elevated (not just with pillows, but actual head of bed must be elevated), avoid sedating medications and alcohol at bedtime, take the least amount of the prescribed medication for the least amount of time possible. -Follow-up - We recommend you have further testing. -Make an appointment with your primary care doctor to discuss getting tested for a sleep disorder. Your doctor can answer any other questions and help get further testing, if needed. in this encounter Assessments Diagnosis Osteoarthritis of left hip, unspecified osteoarthritis type - Primary Nephrolithiasis Calculus of kidney Hypothyroidism Unspecified hypothyroidism Hypertension Unspecified essential hypertension History of blood transfusion Headache GERD (gastroesophageal reflu x disease) Esophageal reflux Fibromyalgia, primary Deep vein thrombosis (HCC) Acute venous embolism and thrombosis of unspecified deep vessels of lower extremity Bipolar disorder (HCC) Bipolar disorder, unspecified Asthma Unspecified asthma Primary osteoarthritis of le ft hip Degenerative joint disease ( DJD) of hip Diagnosis Pre-op exam - Primary Primary osteoarthritis of le ft hip Pre-operative cardiovascular examination Acquired hypothyroidism Unspecified hypothyroidism Pure hypercholesterolemia History of CVA in adulthood History of DVT in adulthood Migraine without aura and wi thout status migrainosus, not intractable Other depression Anxiety Anxiety state, unspecified Insomnia, unspecified type Fibromyalgia Unspecified myalgia and myositis Bipolar affective disorder, remission status unspecified (HCC) Elevated blood pressure read ing without diagnosis of hypertension Risk factors for obstructive sleep apnea Moderate obesity No contraindication to deep vein thrombosis (DVT) prophylaxis Advance Directives No Advanced Directives Records FoundDocuments on File Type Date Recorded 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 If your surgery date changes or you change your surgery date, please call us at [phone] Preoperative Medication Instructions In preparation for surgery please continue all of your current medications with the following changes: Noemi Caballero Home Medication Instructions Prior to Surgery ZACK:[id number] Printed on:10/21/17 1250 Medication Information Take last dose on Take the morning of surgery Comment(s) aspirin 81 MG EC tablet Take 81 mg by mouth nightly TAKES 2 TABLETS ReasonsMyocardial Reinfarction Prevention, prevention of transient ischemic attack. 11/01/2017 NO atorvastatin (LIPITOR) 40 MG tablet Take 40 mg by mouth nightly TAKES 1 TABLET Reasonshypercholesterolemia. TAKE THE EVENING PRIOR TO SURGERY baclofen (LIORESAL) 20 MG tablet Take 20 mg by mouth 4 (four) times a day TAKES 1 TABLET ReasonsFIBROMYALGIA. YES cholecalciferol, vitamin D3, (VITAMIN D3) 5,000 unit Tab tablet Take 5,000 Units by mouth every morning TAKES 1 TABLET . NO nqztozm-lxvdgzfxie-BAS-caff (rwltwzanig-eotysrh-alhbhgso-codeine) capsule Take 1 capsule by mouth continuous as needed for pain TAKES 2 TABLETS, EACH TABLET IS 30 MG ReasonsMIGRAINES. 11/01/2017 NO dexlansoprazole (DEXILANT) 60 mg capsule Take 60 mg by mouth 2 (two) times a day TAKES 1 TABLET ReasonsGastroesophageal Reflux. YES diazePAM (VALIUM) 5 MG tablet Take 2.5 mg by mouth 2 (two) times a day TAKES 1 TABLET . YES enoxaparin (LOVENOX) 80 mg/0.8 mL Syrg Inject 0.8 mL (80 mg total) under the skin every 12 (twelve) hours for 6 doses. PM--11/07/2017 NO fluticasone (FLONASE) 50 mcg/actuation nasal spray Instill 2 sprays into each nostril 2 (two) times a day DOES 2 SPRAYS IN EACH NOSTRIL . YES FLUTICASONE/SALMETEROL (ADVAIR HFA INHL) Inhale 2 (two) times a day DOES 2 PUFFS ReasonsASTHMA. YES folic acid (FOLVITE) 1 MG tablet Take 1 mg by mouth nightly TAKES 1 TABLET ReasonsSUPPLEMENT. TAKE THE EVENING PRIOR TO SURGERY gabapentin (NEURONTIN) 600 MG tablet Take 600 mg by mouth 4 (four) times a day TAKES 1 TABLET ReasonsNeuropathic Pain. YES lamoTRIgine (LAMICTAL) 25 MG tablet Take 25 mg by mouth every morning TAKES 2 TABLETS OF 25 MG TO EQUAL TOTAL OF 50 MG . YES levothyroxine (SYNTHROID, LEVOTHROID) 50 MCG tablet Take 50 mcg by mouth every morning TAKES 1 TABLET Reasonshypothyroidism. NO loratadine-pseudoePHEDrine (loratadine-pseudoephedrine) 5-120 mg Tb12 Take by mouth nightly TAKES 1 TABLET ReasonsAllergic Rhinitis. NO montelukast (SINGULAIR) 10 mg tablet Take 10 mg by mouth nightly TAKES 1 TABLET ReasonsAllergic Rhinitis. TAKE THE EVENING PRIOR TO SURGERY ondansetron (ZOFRAN) 4 MG tablet Take 4 mg by mouth every morning TAKES 1 TABLET . IF NEEDED oxyCODONE-acetaminophen (PERCOCET) 5-325 mg per tablet Take 1 tablet by mouth every 6 (six) hours as needed for pain TAKES 1 TABLET . IF NEEDED polyethylene glycol (MIRALAX) 17 gram powder Take 17 g by mouth daily as needed MIXES WITH LIQUIDS. NO QUEtiapine (SEROQUEL) 200 MG tablet Take 300 mg by mouth nightly TAKES 1 TABLET . TAKE THE EVENING PRIOR TO SURGERY venlafaxine (EFFEXOR-XR) 150 MG 24 hr capsule Take 150 mg by mouth every morning TAKES 3 TABLETS ReasonsDEPRESSION. YES vortioxetine (TRINTELLIX) 10 mg tablet Take 10 mg by mouth every morning TAKES 1 TABLET . YES warfarin (COUMADIN) 5 MG tablet Take 5 mg by mouth every morning TAKES 1 TABLET OF 2.5 MG ON SUNDAYS, TUESDAYS, AND THURSDAYS, and Wednesday. TAKES 1 TABLET OF 5 MG ON MONDAYS, WEDNESDAYS, FRIDAYS.. 11/03/2017 NO zolpidem (AMBIEN) 10 mg tablet Take 10 mg by mouth nightly TAKES 1.5 TABLETS ReasonsSleep-Onset Insomnia. TAKE IF NEEDED THE EVENING PRIOR TO SURGERY DO NOT USE: Aspirin (and medications that contain aspirin, such as Danielle Maxatawny, Pepto- Bismol, Anacin), antiinflammatory medications such as Advil, Motrin, Ibuprofen, Naproxen, Aleve, Danielle Maxatawny, Pepto-Bismol,Anacin, Diclofenac, Voltaren, Daypro, Etodolac, Ketoprofen, Piroxicam, Relafen, Nabumetone, etc. THESE SHOULD NOT BE USED WHEN TAKING COUMADIN (WARFARIN). Also discontinue Vitamin C, Vitamin E, [place]-3 Fatty Acid, Fish Oil or Lovaza, and all herbal medications. Tylenol (acetaminophen) is acceptable, but be careful to follow the label directions and do not usewith other pain medications. It is acceptable to continue a Multivitamin, Magnesium, Potassium, Iron supplement, Vitamin D, Calcium, or Vitamin B if you were already taking them. LAST DOSE OF COUMADIN (WARFARIN) SHOULD BE TAKEN ON: 11/03/2017 Add Lovenox as advised on your written prescription. The injections are to be administered twice daily (12 hours apart) on: 11/05, 11/06 and 11/07/2017 On the morning of surgery, with as little water as possible, ONLY take the medications listed abovein the column Take the morning of surgery. If you are using Eye Drops or Inhalers, please bring them to the hospital. If you have sleep apnea and have a CPAP/BIPAP device, please bring it with you the day of surgery. in this encounter Summary Purpose Family History No Family History Records Found Relationship Condition Age at Onset Recorded Date/T joelle father Congestive heart failure Unknown Not Specified Congestive heart failure Unknown sister Malignant neoplasm of lung Unknown brother Malignant neoplasm of prostate Unknown Chief Complaint and Reason for Visit Chief Complaint M05.0 M35.9 Z79.899 Additional Source Comments Lina Ng MD - 11/09/2017 6:56 AM Rossana Lunsford, - 10/21/2017 1:02 PM Rossana Lunsford, - 10/21/2017 1:02 PM EST H&P Notes (unrecognized sect ion and content) INTERVAL HISTORY AND PHYSICAL Patient Name: Noemi Caballero Admit Date: [id number] MR #: [id number] : 1960 The H&P has been reviewed and the patient has been examined. I concur with the findings of the H&P. There are no significant changes. It is appropriate to proceed with the planned procedure. Lina Ng MD 11/09/2017 6:56 AM Formatting of this note may be different from the original. Assessment and Plan 1. Pre-op exam Preoperative medical risk stratification indicates that the patient is at acceptable risk for elective/major surgery-11/09; LEFT TOTAL HIP ARTHROPLASTY ANTERIOR APPROACH [facility] Main OR pending laboratory. ECG 12 Lead 2. Primary osteoarthritis of left hip The patient should use no aspirin products or anti-inflammatory drugs at any time given her chronic anticoagulation with warfarin. 3. Pre-operative cardiovascular examination This patient has no active cardiac conditions and would be considered at a low risk for a major adverse cardiac event (MACE) based on a revised cardiac risk index (RCRI) score of 0. This patient has an activity level greater than 4 METS and would be considered at acceptable cardiac risk based on the 2014 [place] [employer]/[place] [employer] (ACC/AHA) guideline on Perioperative Cardiovascular Evaluation and Management of Patients Undergoing Noncardiac Surgery. 4. Acquired hypothyroidism Control levothyroxine discontinued today prior to surgery. 5. Pure hypercholesterolemia Controlled on atorvastatin does continue to evening prior to surgery. 6. History of CVA in adulthood Residual effect?. 7. 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 Bridging Lovenox indicated to be given on 11/05, 11/06 and 11/07/2017 prescription given and discussed in detail with patient today. 8. Migraine without aura and without status migrainosus, not intractable Controlled on lamotrigine does take a.m. day of surgery. 9. Other depression Controlled on venlafaxine/Trental extended take a.m. day of surgery. 10. Anxiety Controlled on diazepam to take a.m. day of surgery. 11. Insomnia, unspecified type Controlled on as needed Ambien continue as needed p.m. prior to surgery. 12. Fibromyalgia Controlled on baclofen/gabapentin does take a.m. day of surgery. 13. Bipolar affective disorder, remission status unspecified (HCC) Controlled on quetiapine continue evening prior to surgery. 14. Elevated blood pressure reading without diagnosis of hypertension The patient was instructed in lifestyle modifications, including weight reduction, dietary sodium restriction, increase physical activity as tolerated, and moderation in alcohol consumption. In addition, the patient was instructed on followup blood pressure monitoring and follow up with their primary care physician. 15. Risk factors for obstructive sleep apnea The patient was noted to have risk factors for obstructive sleep apnea as noted on screening today in preadmission testing. This would place the patient at risk for postoperative respiratory compromise/hypoxia. Close respiratory monitoring and pulse oximetry monitoring should be instituted postoperatively. 16. Moderate obesity Body mass index is 35.59 kg/m . The patient was counseled today in preadmission testing as to the beneficial effects of weight loss, including particularly reduction of future cardiovascular disease, hypertension, diabetes mellitus, sleep apnea and musculoskeletal disease including osteoarthritis of the knee and hip. Also emphasized to the patient at preadmission testing today the importance of sodium restriction, a healthy diet and regular exercise. The patient has been counseled to follow up with their primary care physician to set up a structured program for diet/structured weight loss program. 17. No contraindication to deep vein thrombosis (DVT) prophylaxis Deep venous thrombosis prophylaxis per primary service. Recommend: 2012 Antithrombotic therapy for VTE disease: Antithrombotic Therapy and Prevention of Thrombosis, 9th ed: [employer] Evidence- Based Clinical Practice Guidelines. Would recommend restarting patient's chronic warfarin p.m. prior to surgery, and beginning prophylactic dose for example Lovenox or Arixtra being postoperative day #1, continue until patient's INR therapeutic at 2.0 postoperatively. Chief Complaint Patient presents with Pre-operative Medical Risk Stratification History of Present Illness Noemi Caballero is a 57 y.o. female who presents for preoperative medical risk stratification consult at the request of Lina Ng MD prior to 11/09; LEFT TOTAL HIP ARTHROPLASTY ANTERIOR APPROACH [facility] OR . Patient states she has had left hip pain for the few years and was scheduled for this surgery last year. 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 She is now here for the completion. Current complaints of moderate or severe left hip pain, worse when walking. She believes she has a low grade fever at this time due to her lupus. The patient denies any chest pain or chest heaviness. In addition, the patient states that she is able to walk up a flight of steps without becoming short of breath. Patient denies any prior history of postoperative nausea, postoperative sedation or any other anesthetic complications. Please see below regarding status of active medical conditions and assessment and plan regarding details of preoperative medical risk stratification. 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 Depression Fibromyalgia, primary GERD (gastroesophageal reflux disease) Headache MIGRAINES History of blood transfusion History of stress test 2012 Hyperlipidemia Hypothyroidism Nephrolithiasis Osteoarthritis of left hip Presence of vena cava filter Stroke ([facility]) 1994 Past Medical History Pertinent Negatives: Diagnosis Date Noted Bleeding disorder (HCC) 09/17/2016 Blood transfusion reaction 09/17/2016 CHF (congestive heart failure) ([facility]) 10/21/2017 Complication of anesthesia 09/17/2016 Coronary artery disease 09/17/2016 Diabetes mellitus type I ([facility]) 09/17/2016 Diabetes mellitus, type 2 ([facility]) 09/11/2016 Hard to intubate 09/17/2016 Hypertension 09/17/2016 Malignant hyperthermia due to anesthesia 09/17/2016 No blood products 09/17/2016 PONV (postoperative nausea and vomiting) 10/21/2017 Rheumatoid arthritis ([facility]) 10/18/2017 Sleep apnea, obstructive 09/17/2016 Past Surgical History: Procedure Laterality Date ANTERIOR CERVICAL DISCECTOMY W/ FUSION CATARACT EXTRACTION W/ INTRAOCULAR LENS IMPLANT Left pt. is partially blind in right eye SECTION COLONOSCOPY 2013 CYSTOSCOPY W/ URETERAL STENT PLACEMENT Left THEN REMOVAL EYE SURGERY Left IOL HERNIA REPAIR UMBILICAL ORTHOPEDIC SURGERY Bilateral Knee arthroscopy TONSILLECTOMY Social History Substance Use Topics Smoking status: Never Smoker Smokeless tobacco: Never Used Alcohol use No Comment: rare Family History Problem Relation Age of Onset Heart disease Mother Heart disease Father Deep vein thrombosis Father @ Prior to Admission medications Medication Sig Taking? Dose Freq aspirin 81 MG EC tablet Take 81 mg by mouth nightly TAKES 2 TABLETS ReasonsMyocardial Reinfarction Prevention, prevention of transient ischemic attack. Yes 81 mg, Oral, Nightly, TAKES 2 TABLETS atorvastatin (LIPITOR) 40 MG tablet Take 40 mg by mouth nightly TAKES 1 TABLET Reasonshypercholesterolemia. Yes 40 mg, Oral, Nightly, TAKES 1 TABLET baclofen (LIORESAL) 20 MG tablet Take 20 mg by mouth 4 (four) times a day TAKES 1 TABLET ReasonsFIBROMYALGIA. Yes 20 mg, Oral, 4 times daily, TAKES 1 TABLET cholecalciferol, vitamin D3, (VITAMIN D3) 5,000 unit Tab tablet Take 5,000 Units by mouth every morning TAKES 1 TABLET . Yes 5,000 Units, Oral, Every morning, TAKES 1 TABLET kbolvqg-azbnpcfebx-LYL-caff (fzpuffrels-jhhqqnd-hhfjjdzt-codeine) capsule Take 1 capsule by mouth continuous as needed for pain TAKES 2 TABLETS, EACH TABLET IS 30 MG ReasonsMIGRAINES. Yes 1 capsule, Oral, Continuous PRN, TAKES 2 TABLETS, EACH TABLET IS 30 MG dexlansoprazole (DEXILANT) 60 mg capsule Take 60 mg by mouth 2 (two) times a day TAKES 1 TABLET ReasonsGastroesophageal Reflux. Yes 60 mg, Oral, 2 times daily, TAKES 1 TABLET diazePAM (VALIUM) 5 MG tablet Take 2.5 mg by mouth 2 (two) times a day TAKES 1 TABLET . Yes 2.5 mg, Oral, 2 times daily, TAKES 1 TABLET fluticasone (FLONASE) 50 mcg/actuation nasal spray Instill 2 sprays into each nostril 2 (two) times a day DOES 2 SPRAYS IN EACH NOSTRIL . Yes 2 sprays, Nasal, 2 times daily, DOES 2 SPRAYS IN EACH NOSTRIL FLUTICASONE/SALMETEROL (ADVAIR HFA INHL) Inhale 2 (two) times a day DOES 2 PUFFS ReasonsASTHMA. Yes Inhalation, 2 times daily, DOES 2 PUFFS folic acid (FOLVITE) 1 MG tablet Take 1 mg by mouth nightly TAKES 1 TABLET ReasonsSUPPLEMENT. Yes 1 mg, Oral, Nightly, TAKES 1 TABLET gabapentin (NEURONTIN) 600 MG tablet Take 600 mg by mouth 4 (four) times a day TAKES 1 TABLET ReasonsNeuropathic Pain. Yes 600 mg, Oral, 4 times daily, TAKES 1 TABLET lamoTRIgine (LAMICTAL) 25 MG tablet Take 25 mg by mouth every morning TAKES 2 TABLETS OF 25 MG TO EQUAL TOTAL OF 50 MG . Yes 25 mg, Oral, Every morning, TAKES 2 TABLETS OF 25 MG TO EQUAL TOTAL OF 50 MG levothyroxine (SYNTHROID, LEVOTHROID) 50 MCG tablet Take 50 mcg by mouth every morning TAKES 1 TABLET Reasonshypothyroidism. Yes 50 mcg, Oral, Every morning, TAKES 1 TABLET loratadine-pseudoePHEDrine (loratadine-pseudoephedrine) 5-120 mg Tb12 Take by mouth nightly TAKES 1 TABLET ReasonsAllergic Rhinitis. Yes Oral, Nightly, TAKES 1 TABLET montelukast (SINGULAIR) 10 mg tablet Take 10 mg by mouth nightly TAKES 1 TABLET ReasonsAllergic Rhinitis. Yes 10 mg, Oral, Nightly, TAKES 1 TABLET ondansetron (ZOFRAN) 4 MG tablet Take 4 mg by mouth every morning TAKES 1 TABLET . Yes 4 mg, Oral, Every morning, TAKES 1 TABLET oxyCODONE-acetaminophen (PERCOCET) 5-325 mg per tablet Take 1 tablet by mouth every 6 (six) hours as needed for pain TAKES 1 TABLET . Yes 1 tablet, Oral, Every 6 hours PRN, TAKES 1 TABLET polyethylene glycol (MIRALAX) 17 gram powder Take 17 g by mouth daily as needed MIXES WITH LIQUIDS. Yes 17 g, Oral, Daily PRN, MIXES WITH LIQUIDS QUEtiapine (SEROQUEL) 200 MG tablet Take 300 mg by mouth nightly TAKES 1 TABLET . Yes 300 mg, Oral, Nightly, TAKES 1 TABLET venlafaxine (EFFEXOR-XR) 150 MG 24 hr capsule Take 150 mg by mouth every morning TAKES 3 TABLETS ReasonsDEPRESSION. Yes 150 mg, Oral, Every morning, TAKES 3 TABLETS vortioxetine (TRINTELLIX) 10 mg tablet Take 10 mg by mouth every morning TAKES 1 TABLET . Yes 10 mg, Oral, Every morning, TAKES 1 TABLET warfarin (COUMADIN) 5 MG tablet Take 5 mg by mouth every morning TAKES 1 TABLET OF 2.5 MG ON SUNDAYS, TUESDAYS, AND THURSDAYS, and Wednesday. TAKES 1 TABLET OF 5 MG ON MONDAYS, WEDNESDAYS, FRIDAYS.. Yes 5 mg, Oral, Every morning, TAKES 1 TABLET OF 2.5 MG ON SUNDAYS, TUESDAYS, AND THURSDAYS, and Wednesday. TAKES 1 TABLET OF 5 MG ON MONDAYS, WEDNESDAYS, FRIDAYS. zolpidem (AMBIEN) 10 mg tablet Take 10 mg by mouth nightly TAKES 1.5 TABLETS ReasonsSleep-Onset Insomnia. Yes 10 mg, Oral, Nightly, TAKES 1.5 TABLETS enoxaparin (LOVENOX) 80 mg/0.8 mL Syrg Inject 0.8 mL (80 mg total) under the skin every 12 (twelve) hours for 6 doses. 80 mg, Subcutaneous, Every 12 hours Allergies Allergen Reactions [place] Other (See Comments) COMA Zoloft [Sertraline] Other (See Comments) CHEST PAINS Erythromycin Other (See Comments) SEVERE STOMACH CRAMPING Prednisone Swelling ORAL ONLY--SWELLING WITH LONG TIME USE Review of Systems Constitution: (negative) HENT: (negative) Eyes: (negative) Respiratory: (negative) Cardiovascular: (negative) - Exercise capacity: Greater than 4 METS Gastrointestinal: (negative) Genitourinary: (negative) Musculoskeletal: (negative) Skin: (negative) Neurological: (negative) Hematological: (negative) Physical Exam BP (!) 160/93 Pulse 88 Temp 99.7 ?F (37.6 ?C) Ht 5' 5 Wt 97 kg (213 lb 13.5 oz) SpO2 94% BMI 35.59 kg/m Constitutional--Conversant, in no acute distress. Skin--Normal turgor, no rashes noted. Eyes--Pupils equal in size bilaterally; anicteric sclerae. Ears/nose/mouth/throat--Hearing intact; oropharynx clear with moist mucosa. Neck--Trachea midline, no goiter. Cardiovascular--Regular rhythm, no peripheral edema noted. Respiratory--Clear to auscultation bilaterally; no accessory muscle use noted. Gastrointestinal--Soft, protuberant and non-tender; no hepatosplenomegaly noted. Musculoskeletal--No calf tenderness bilaterally; no clubbing or cyanosis of digits noted. Pain to flexion/extension of left hip. Psychiatric--alert and oriented to person, place and time; appropriate affect noted. Data Preprocedure Sleep Apnea Assessment - Moderate Risk (2/3) Sleep Apnea in the patient's Active Problem List or Medical History: no 1. History of apparent airway obstruction during sleep: (1 point for this category) Do you snore frequently, or snore loud enough to be heard through a closed door?: yes Do you awaken from sleep with a choking sensation or have periods during sleep when someone has observed you pausing between breaths?: no 2. Somnolence of the patient: (1 point for this category) Do you find yourself frequently sleepy despite adequate hours of sleep the night before?: no Do you fall asleep easily while: watching TV, reading, riding in or driving a car?: no 3. Predisposing physician characteristics: (1 point for this category, 2 points if the BMI ? 40) BMI (Calculated): 35.6 Neck Circumference (inches): 15.5 inches Laboratory 10/11/2017 hemoglobin 11.3, white count 6.2, platelet count 286. Sed rate 13. Chemistry profile glucose 107, others normal including potassium 4.2, creatinine 0.88. Urinalysis 3 4 WBC. Electrocardiogram-tracing independently reviewed and interpreted-nonspecific ST segment changes.in this encounter Formatting of this note may be different from the original. Assessment and Plan 1. Pre-op exam Preoperative medical risk stratification indicates that the patient is at acceptable risk for elective/major surgery-11/09; LEFT TOTAL HIP ARTHROPLASTY ANTERIOR APPROACH [facility] OR pending laboratory. ECG 12 Lead 2. Primary osteoarthritis of left hip The patient should use no aspirin products or anti-inflammatory drugs at any time given her chronic anticoagulation with warfarin. 3. Pre-operative cardiovascular examination This patient has no active cardiac conditions and would be considered at a low risk for a major adverse cardiac event (MACE) based on a revised cardiac risk index (RCRI) score of 0. This patient has an activity level greater than 4 METS and would be considered at acceptable cardiac risk based on the 2014 [employer] (ACC/AHA) guideline on Perioperative Cardiovascular Evaluation and Management of Patients Undergoing Noncardiac Surgery. 4. Acquired hypothyroidism Control levothyroxine discontinued today prior to surgery. 5. Pure hypercholesterolemia Controlled on atorvastatin does continue to evening prior to surgery. 6. History of CVA in adulthood Residual effect?. 7. 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 Bridging Lovenox indicated to be given on 11/05, 11/06 and 11/07/2017 prescription given and discussed in detail with patient today. 8. Migraine without aura and without status migrainosus, not intractable Controlled on lamotrigine does take a.m. day of surgery. 9. Other depression Controlled on venlafaxine/Trental extended take a.m. day of surgery. 10. Anxiety Controlled on diazepam to take a.m. day of surgery. 11. Insomnia, unspecified type Controlled on as needed Ambien continue as needed p.m. prior to surgery. 12. Fibromyalgia Controlled on baclofen/gabapentin does take a.m. day of surgery. 13. Bipolar affective disorder, remission status unspecified (HCC) Controlled on quetiapine continue evening prior to surgery. 14. Elevated blood pressure reading without diagnosis of hypertension The patient was instructed in lifestyle modifications, including weight reduction, dietary sodium restriction, increase physical activity as tolerated, and moderation in alcohol consumption. In addition, the patient was instructed on followup blood pressure monitoring and follow up with their primary care physician. 15. Risk factors for obstructive sleep apnea The patient was noted to have risk factors for obstructive sleep apnea as noted on screening today in preadmission testing. This would place the patient at risk for postoperative respiratory compromise/hypoxia. Close respiratory monitoring and pulse oximetry monitoring should be instituted postoperatively. 16. Moderate obesity Body mass index is 35.59 kg/m . The patient was counseled today in preadmission testing as to the beneficial effects of weight loss, including particularly reduction of future cardiovascular disease, hypertension, diabetes mellitus, sleep apnea and musculoskeletal disease including osteoarthritis of the knee and hip. Also emphasized to the patient at preadmission testing today the importance of sodium restriction, a healthy diet and regular exercise. The patient has been counseled to follow up with their primary care physician to set up a structured program for diet/structured weight loss program. 17. No contraindication to deep vein thrombosis (DVT) prophylaxis Deep venous thrombosis prophylaxis per primary service. Recommend: 2011 Antithrombotic therapy for VTE disease: Antithrombotic Therapy and Prevention of Thrombosis, 9th ed: [employer] Evidence- Based Clinical Practice Guidelines. Would recommend restarting patient's chronic warfarin p.m. prior to surgery, and beginning prophylactic dose for example Lovenox or Arixtra being postoperative day #1, continue until patient's INR therapeutic at 2.0 postoperatively. Chief Complaint Patient presents with Pre-operative Medical Risk Stratification History of Present Illness Noemi Caballero is a 57 y.o. female who presents for preoperative medical risk stratification consult at the request of Lina Ng MD prior to 11/09; LEFT TOTAL HIP ARTHROPLASTY ANTERIOR APPROACH [facility] OR . Patient states she has had left hip pain for the few years and was scheduled for this surgery last year. 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 She is now here for the completion. Current complaints of moderate or severe left hip pain, worse when walking. She believes she has a low grade fever at this time due to her lupus. The patient denies any chest pain or chest heaviness. In addition, the patient states that she is able to walk up a flight of steps without becoming short of breath. Patient denies any prior history of postoperative nausea, postoperative sedation or any other anesthetic complications. Please see below regarding status of active medical conditions and assessment and plan regarding details of preoperative medical risk stratification. 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 Depression Fibromyalgia, primary GERD (gastroesophageal reflux disease) Headache MIGRAINES History of blood transfusion History of stress test 2012 Hyperlipidemia Hypothyroidism Nephrolithiasis Osteoarthritis of left hip Presence of vena cava filter Stroke ([facility]) 1994 Past Medical History Pertinent Negatives: Diagnosis Date Noted Bleeding disorder ([facility]) 09/17/2016 Blood transfusion reaction 09/17/2016 CHF (congestive heart failure) ([facility]) 10/21/2017 Complication of anesthesia 09/17/2016 Coronary artery disease 09/17/2016 Diabetes mellitus type I ([facility]) 09/17/2016 Diabetes mellitus, type 2 ([facility]) 09/11/2016 Hard to intubate 09/17/2016 Hypertension 09/17/2016 Malignant hyperthermia due to anesthesia 09/17/2016 No blood products 09/17/2016 PONV (postoperative nausea and vomiting) 10/21/2017 Rheumatoid arthritis ([facility]) 10/18/2017 Sleep apnea, obstructive 09/17/2016 Past Surgical History: Procedure Laterality Date ANTERIOR CERVICAL DISCECTOMY W/ FUSION CATARACT EXTRACTION W/ INTRAOCULAR LENS IMPLANT Left pt. is partially blind in right eye SECTION COLONOSCOPY 2013 CYSTOSCOPY W/ URETERAL STENT PLACEMENT Left THEN REMOVAL EYE SURGERY Left IOL HERNIA REPAIR UMBILICAL ORTHOPEDIC SURGERY Bilateral Knee arthroscopy TONSILLECTOMY Social History Substance Use Topics Smoking status: Never Smoker Smokeless tobacco: Never Used Alcohol use No Comment: rare Family History Problem Relation Age of Onset Heart disease Mother Heart disease Father Deep vein thrombosis Father @ Prior to Admission medications Medication Sig Taking? Dose Freq aspirin 81 MG EC tablet Take 81 mg by mouth nightly TAKES 2 TABLETS ReasonsMyocardial Reinfarction Prevention, prevention of transient ischemic attack. Yes 81 mg, Oral, Nightly, TAKES 2 TABLETS atorvastatin (LIPITOR) 40 MG tablet Take 40 mg by mouth nightly TAKES 1 TABLET Reasonshypercholesterolemia. Yes 40 mg, Oral, Nightly, TAKES 1 TABLET baclofen (LIORESAL) 20 MG tablet Take 20 mg by mouth 4 (four) times a day TAKES 1 TABLET ReasonsFIBROMYALGIA. Yes 20 mg, Oral, 4 times daily, TAKES 1 TABLET cholecalciferol, vitamin D3, (VITAMIN D3) 5,000 unit Tab tablet Take 5,000 Units by mouth every morning TAKES 1 TABLET . Yes 5,000 Units, Oral, Every morning, TAKES 1 TABLET bvchdeu-jsvaqznbqs-LLQ-caff (ubnjbpcbax-ctqtzeo-xbaefqez-codeine) capsule Take 1 capsule by mouth continuous as needed for pain TAKES 2 TABLETS, EACH TABLET IS 30 MG ReasonsMIGRAINES. Yes 1 capsule, Oral, Continuous PRN, TAKES 2 TABLETS, EACH TABLET IS 30 MG dexlansoprazole (DEXILANT) 60 mg capsule Take 60 mg by mouth 2 (two) times a day TAKES 1 TABLET ReasonsGastroesophageal Reflux. Yes 60 mg, Oral, 2 times daily, TAKES 1 TABLET diazePAM (VALIUM) 5 MG tablet Take 2.5 mg by mouth 2 (two) times a day TAKES 1 TABLET . Yes 2.5 mg, Oral, 2 times daily, TAKES 1 TABLET fluticasone (FLONASE) 50 mcg/actuation nasal spray Instill 2 sprays into each nostril 2 (two) times a day DOES 2 SPRAYS IN EACH NOSTRIL . Yes 2 sprays, Nasal, 2 times daily, DOES 2 SPRAYS IN EACH NOSTRIL FLUTICASONE/SALMETEROL (ADVAIR HFA INHL) Inhale 2 (two) times a day DOES 2 PUFFS ReasonsASTHMA. Yes Inhalation, 2 times daily, DOES 2 PUFFS folic acid (FOLVITE) 1 MG tablet Take 1 mg by mouth nightly TAKES 1 TABLET ReasonsSUPPLEMENT. Yes 1 mg, Oral, Nightly, TAKES 1 TABLET gabapentin (NEURONTIN) 600 MG tablet Take 600 mg by mouth 4 (four) times a day TAKES 1 TABLET ReasonsNeuropathic Pain. Yes 600 mg, Oral, 4 times daily, TAKES 1 TABLET lamoTRIgine (LAMICTAL) 25 MG tablet Take 25 mg by mouth every morning TAKES 2 TABLETS OF 25 MG TO EQUAL TOTAL OF 50 MG . Yes 25 mg, Oral, Every morning, TAKES 2 TABLETS OF 25 MG TO EQUAL TOTAL OF 50 MG levothyroxine (SYNTHROID, LEVOTHROID) 50 MCG tablet Take 50 mcg by mouth every morning TAKES 1 TABLET Reasonshypothyroidism. Yes 50 mcg, Oral, Every morning, TAKES 1 TABLET loratadine-pseudoePHEDrine (loratadine-pseudoephedrine) 5-120 mg Tb12 Take by mouth nightly TAKES 1 TABLET ReasonsAllergic Rhinitis. Yes Oral, Nightly, TAKES 1 TABLET montelukast (SINGULAIR) 10 mg tablet Take 10 mg by mouth nightly TAKES 1 TABLET ReasonsAllergic Rhinitis. Yes 10 mg, Oral, Nightly, TAKES 1 TABLET ondansetron (ZOFRAN) 4 MG tablet Take 4 mg by mouth every morning TAKES 1 TABLET . Yes 4 mg, Oral, Every morning, TAKES 1 TABLET oxyCODONE-acetaminophen (PERCOCET) 5-325 mg per tablet Take 1 tablet by mouth every 6 (six) hours as needed for pain TAKES 1 TABLET . Yes 1 tablet, Oral, Every 6 hours PRN, TAKES 1 TABLET polyethylene glycol (MIRALAX) 17 gram powder Take 17 g by mouth daily as needed MIXES WITH LIQUIDS. Yes 17 g, Oral, Daily PRN, MIXES WITH LIQUIDS QUEtiapine (SEROQUEL) 200 MG tablet Take 300 mg by mouth nightly TAKES 1 TABLET . Yes 300 mg, Oral, Nightly, TAKES 1 TABLET venlafaxine (EFFEXOR-XR) 150 MG 24 hr capsule Take 150 mg by mouth every morning TAKES 3 TABLETS ReasonsDEPRESSION. Yes 150 mg, Oral, Every morning, TAKES 3 TABLETS vortioxetine (TRINTELLIX) 10 mg tablet Take 10 mg by mouth every morning TAKES 1 TABLET . Yes 10 mg, Oral, Every morning, TAKES 1 TABLET warfarin (COUMADIN) 5 MG tablet Take 5 mg by mouth every morning TAKES 1 TABLET OF 2.5 MG ON SUNDAYS, TUESDAYS, AND THURSDAYS, and Wednesday. TAKES 1 TABLET OF 5 MG ON MONDAYS, WEDNESDAYS, FRIDAYS.. Yes 5 mg, Oral, Every morning, TAKES 1 TABLET OF 2.5 MG ON SUNDAYS, TUESDAYS, AND THURSDAYS, and Wednesday. TAKES 1 TABLET OF 5 MG ON MONDAYS, WEDNESDAYS, FRIDAYS. zolpidem (AMBIEN) 10 mg tablet Take 10 mg by mouth nightly TAKES 1.5 TABLETS ReasonsSleep-Onset Insomnia. Yes 10 mg, Oral, Nightly, TAKES 1.5 TABLETS enoxaparin (LOVENOX) 80 mg/0.8 mL Syrg Inject 0.8 mL (80 mg total) under the skin every 12 (twelve) hours for 6 doses. 80 mg, Subcutaneous, Every 12 hours Allergies Allergen Reactions [place] Other (See Comments) COMA Zoloft [Sertraline] Other (See Comments) CHEST PAINS Erythromycin Other (See Comments) SEVERE STOMACH CRAMPING Prednisone Swelling ORAL ONLY--SWELLING WITH LONG TIME USE Review of Systems Constitution: (negative) HENT: (negative) Eyes: (negative) Respiratory: (negative) Cardiovascular: (negative) - Exercise capacity: Greater than 4 METS Gastrointestinal: (negative) Genitourinary: (negative) Musculoskeletal: (negative) Skin: (negative) Neurological: (negative) Hematological: (negative) Physical Exam BP (!) 160/93 Pulse 88 Temp 99.7 ?F (37.6 ?C) Ht 5' 5 Wt 97 kg (213 lb 13.5 oz) SpO2 94% BMI 35.59 kg/m Constitutional--Conversant, in no acute distress. Skin--Normal turgor, no rashes noted. Eyes--Pupils equal in size bilaterally; anicteric sclerae. Ears/nose/mouth/throat--Hearing intact; oropharynx clear with moist mucosa. Neck--Trachea midline, no goiter. Cardiovascular--Regular rhythm, no peripheral edema noted. Respiratory--Clear to auscultation bilaterally; no accessory muscle use noted. Gastrointestinal--Soft, protuberant and non-tender; no hepatosplenomegaly noted. Musculoskeletal--No calf tenderness bilaterally; no clubbing or cyanosis of digits noted. Pain to flexion/extension of left hip. Psychiatric--alert and oriented to person, place and time; appropriate affect noted. Data Preprocedure Sleep Apnea Assessment - Moderate Risk (2/3) Sleep Apnea in the patient's Active Problem List or Medical History: no 1. History of apparent airway obstruction during sleep: (1 point for this category) Do you snore frequently, or snore loud enough to be heard through a closed door?: yes Do you awaken from sleep with a choking sensation or have periods during sleep when someone has observed you pausing between breaths?: no 2. Somnolence of the patient: (1 point for this category) Do you find yourself frequently sleepy despite adequate hours of sleep the night before?: no Do you fall asleep easily while: watching TV, reading, riding in or driving a car?: no 3. Predisposing physician characteristics: (1 point for this category, 2 points if the BMI ? 40) BMI (Calculated): 35.6 Neck Circumference (inches): 15.5 inches Laboratory 10/11/2017 hemoglobin 11.3, white count 6.2, platelet count 286. Sed rate 13. Chemistry profile glucose 107, others normal including potassium 4.2, creatinine 0.88. Urinalysis 3 4 WBC. Electrocardiogram-tracing independently reviewed and interpreted-nonspecific ST segment changes.in this encounter Cony Bernal, FOREST AIDE-S - 11/11/2017 12:21 PM Lucrecia Blanchard, PT - 11/09/2017 3:08 PM Ignacio Abdi, SUPERVISOR VOLUNTEER SERVICES - 11/09/2017 11:54 AM EST Consult Notes (unrecognized section and content) Associated Order(s): IP CONSULT TO UTILIZATION MANAGEMENT & CARE COORDINATION COMPLEX DISCHARGE Date: 11/11/2017 Time: 2:20 PM Patient Name: Noemi Caballero Date of : 1960 Sex: Female Per PT, pt has no needs. IM signed. Plan is for d/c today. Discharge Plan Shared UM/CC and RN Source of Information: Patient Living Arrangements: Spouse/significant other Support Systems: Spouse/significant other Functional Status: Independent Type of Residence: Private residence Prior to Admission Home Care Services: No Current Home Equipment: None Insurance Coverage for Prescriptions: Yes Potential for Readmission Potential for Readmission: No Discharge Readiness Expected Discharge Date: 11/11/17 [facility] Disposition D/C Disposition: Home Formatting of this note may be different from the original. Physical Therapy PHYSICAL THERAPY EVALUATION NOTE Skilled Therapy Needs After Discharge Anticipate Resolution of Current Assessment Limitations Including: Pain, Mechanical Barriers, Social Support Are Skilled Therapy Services Needed After Discharge: No DME Recommendation: None Outcomes Measures Prior Function - Basic Mobility Raw Score: 24 Points Prior Function - Basic Mobility % Impaired: 0% functionally impaired AM-PAC - Basic Mobility Raw Score: 17 Points AM-PAC - Basic Mobility % Impaired: 43.83% functionally impaired Physical Therapy Assessment History: The following factors influence the patient's participation in the PT plan of care: Personal factors: apprehension toward mobility and social barriers Environmental factors: steps to enter home and lives alone The following co-morbidities (from this admission or prior) influence the patient's participation in this plan of care: 4 Number of History elements affecting this patient's PT plan of care: 1-2 Examination of Body Systems: The patient presents with impairments of strength, ROM, pain. These impairments result in limitations of gait, functional transfers, stair-climbing, safety and activity tolerance. These impairments result in restrictions of household mobility. Number of Body Systems elements affecting this patient's PT plan of care: 4 or more Clinical Presentation: The patient's clinical presentation for this PT evaluation is unstable as evidenced by current PT documentation. Activity Tolerance Activity Tolerance: Tolerates 30 min acitivty with multiple rests Therapy Precautions Orthotic Devices: No Weight Bearing Status: X LLE: Wt bearing as tolerated General Rehab Precautions: Total hip, Fall risk (anterior hip precautions) Balance Sitting Balance - Static: Sits without support for more than 30 seconds Sitting Balance - Dynamic: Moves / returns trunkal midpoint 1-2 inches in multiple planes Standing Balance - Static: Supports self independantly with both upper extremities Standing Balance - Dynamic: Moves / returns trunkal midpoint 1-2 inches in multiple planes Bed Mobility Supine to Sit: Min Sit to Supine: Min Transfers Sit to Stand: Min Stand Pivot Transfers: Min Hydrogen Treater: Walker Gait/Locomotion Gait Assistance: Contact guard Assistive Device: Walker Distance: 50 Feet Pattern: Step to, L Decreased stance time, R decreased step length, L decreased step length Home Living Type of Home: House Home Layout: One level, Stairs to enter without rails (2 ARIAS without rail- platform style steps) Bathroom Shower/Tub: Walk-in shower Bathroom Toilet: Standard Bathroom Equipment: Shower chair Bathroom Accessibility: Accessible via walker Home Equipment: Cane, Walker, Pc Maintenance Technician (crutches) Additional Comments: did not use assistive device prior to admit Prior Level of Function Level of [place]: Independent with ADLs and functional transfers, Independent with homemaking with ambulation Lives With: Alone (plans to stay with dtr x ~3 weeks post op) Receives Help From: Family ADL Assistance: Independent Homemaking Assistance: Independent 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 Depression Fibromyalgia, primary GERD (gastroesophageal reflux disease) Headache MIGRAINES History of blood transfusion History of stress test 2012 Hyperlipidemia Hypertension Hypothyroidism Nephrolithiasis Osteoarthritis of left hip Presence of vena cava filter Stroke ([facility]) 1994 Past Surgical History: Procedure Laterality Date ANTERIOR CERVICAL DISCECTOMY W/ FUSION ARTHROPLASTY TOTAL HIP ANTERIOR APPROACH Left 11/09/2017 Procedure: LEFT TOTAL HIP ARTHROPLASTY ANTERIOR APPROACH; Surgeon: Lina Ng MD; Location: [facility] Main OR; Service: Orthopedic CATARACT EXTRACTION W/ INTRAOCULAR LENS IMPLANT Left pt. is partially blind in right eye SECTION COLONOSCOPY 2013 CYSTOSCOPY W/ URETERAL STENT PLACEMENT Left THEN REMOVAL EYE SURGERY Left IOL HERNIA REPAIR UMBILICAL ORTHOPEDIC SURGERY Bilateral Knee arthroscopy TONSILLECTOMY PHYSICAL THERAPY TREATMENT NOTE Total Treatment Time (Total Session Time): 42 Minutes Timed Code Treatment Minutes: 30 Minutes Neuromuscular Reeducation Gait Training Skilled Intervention: gait distance limited by pain; RN alerted. Pt in supine with polar pack running at end of session Therapeutic Activities Bed Mobility Skilled Intervention: mod vc's for technique; min assist at LEs and shoulders to reach EOB sitting;; assist at LEs to return to supine with use of bedrail Transfers Skilled Intervention: cues for hand placement, left LE positioning for hip protection and pain control; min assist to control transfer Therapeutic Exercises educated pt re: AP, GS, QS. Pt returns demo For complete objective data, detailed plan of care and patient education refer to: PT EVALUATION flow sheet, PT TREATMENT flow sheet, patient Plan of Care, Plan of Care progress note, and Patient Education. This note stands as the current Discharge Summary upon patient discharge from the hospital or completion of Physical Therapy Plan Patient LOC X 3. Based on post procedure LAMONTE assessment - patient snores, BMI > 35 and receiving opioids she is considered a moderate risk for LAMONTE. Will monitor ETCO2 / SpO2 post op. CPAP available if indicatedin this encounter Assessment & Plan Note - Ingrid Ruiz CNP - 11/10/2017 10:40 AM ESTSubjective & Objective - Ingrid Ruiz CNP - 11/10/2017 10:37 AM EST Miscellaneous Notes (unrecog nized section and content) Associated Problem(s): Osteoarthritis of left hip Formatting of this note may be different from the original. POD # 2 - Pt HD stable Lab Results Component Value Date HGB 10.9 (L) 11/10/2017 - Continue pain control prn. Patient does see pain management. Will send home with Percocet 5mg tabs #30 for one week duration at discharge and then patient to follow-up with her pain management physician. - Cont IS q1 hr and upon d/c - Cont dvt prophylaxis with home Coumadin and Lovenox 40mg QD, SCDs, and early ambulation. Okay to resume Lovenox 80mg BID on Wednesday morning per Dr. Ng. Patient to follow-up with PCP on Wednesday for Lovenox/Coumadin management. - Cr 1.29. Seen by Dr. Arguello ([facility]) this morning and patient to follow-up for repeat labs with PCP as well. Patient states understanding. - Mobilize, WBAT, Anterior Hip Precautions - Cont bowel regimen - Maintain dressing x 7 days post op then change Opsite dressing and maintain until follow-up appointment, may shower - PT following - Ortho stable, plan for discharge today - [facility] for medical management, appreciate care - f/u in the office in 2 weeks as scheduled after discharge - Questions answered. Patient and daughter updated at bedside. Patient seen and plan discussed with Dr. Ng Disposition: home today Positive LAMONTE Screen Patient stable over night with no desaturations. On RA now. Discussed with the patient that they did screen positive for LAMONTE. Explained what LAMONTE is and the risk associated with this. Patient states she has had 4 sleep studies and all of them were fine . Encourage patient to follow up with their PCP for reevaluation. Patient seen by RT here and has had no needs overnight. Instructed patient to sleep with the head of the bed elevated and to limit narcotics. Formatting of this note may be different from the original. Subjective/Objective: Perpetual Assessment: POD #2 Left Anterior GREGORIO. Patient doing well. Pain is tolerable. Tolerating diet. Some nausea after breakfast but states she normally doesn't eat breakfast and she takes zofran every morning at home. + Flatus. Voiding. Denies shortness of breath or chest pain. Plans on home today. Physical Examination: BP 111/71 (BP Location: Left arm, Patient Position: Lying) Pulse (!) 57 Temp 97.9 ?F (36.6 ?C) (Oral) Resp 15 Ht 5' 5 Wt 99 kg (218 lb 4.1 oz) SpO2 93% BMI 36.32 kg/m General: NAD; Alert and oriented x3 Lungs: no increased respiratory effort Cardiovascular: no edema Abdomen: soft; non tender Musculoskeletal: LLE: post op dressing CDI. Minimal Swelling. NVI. Moving the extremity. Qulin and warm. Negative Saw's Sign. Cap refill less than 3 seconds. Psych: Mood and affect appropriate. Skin: No rashes; normal turgor. Intake/Output last 3 shifts: I/O last 3 completed shifts: In: 2771.2 [P.O.:2350; I.V.:221.2; IV Piggyback:200] Out: 3300 [Urine:3300] Results/Medications Reviewed 11/11/17 11:07 AM: Laboratory, Medications and Transcriptions NOEMI CABALLERO [facility] [id number] 1960 DATE 11/09/2017 OPERATIVE REPORT SURGEON LINA NG MD GENERATION TECHNICIAN ROSANGELA DUMONT PA-C There were no qualified residents available to assist with the procedure. PREOPERATIVE DIAGNOSIS Osteoarthrosis left hip. POSTOPERATIVE DIAGNOSIS Osteoarthrosis left hip. PROCEDURE Left total hip replacement. ANESTHESIA Spinal. ESTIMATED BLOOD LOSS 400 mL INDICATION FOR SURGERY This is a 57-year-old female presents with severe left hip pain. Clinical and radiographic evaluation consistent with arthritis left hip. She was not a good surgical candidate for a hip arthroscopy secondary to her imaging findings, and especially, her overall physical function and her age. The best treatment for her in this scenario despite there still being joint space is a total hip replacement. IMPLANTS USED Medacta Mpact, cup size 48 mm with a 32 x 48 mm highly cross-linked dual mobility liner. Medacta AMIS proximally coated stem size 2 standard offset with a 32+ 4 ceramic head ball. POSTOPERATIVE PLAN She is weightbearing as tolerated. Follow standard anterior replacement precautions, will be on aspirin for DVT prophylaxis. SPECIAL CONSIDERATIONS Rosangela Dumont, Physician Gis Geographer, should be billed as export sales assistant since there were no qualified residents available to assist with the procedure. She was necessary for leg manipulation and soft tissue retraction during the procedure. PROCEDURE IN DETAIL The patient was taken to the operating room. She underwent spinal anesthesia. She was placed supine on the operating table. The left leg was prepped and draped sterile fashion. Antibiotics given. A surgical pause was performed. Anterior approach to the hip was performed. Tensor fascia favio was incised and mobilized laterally, and sartorius was mobilized medially. Lateral femoral circumflex vessels were isolated, tagged, cauterized, and ligated. Gluteal muscles were mobilized laterally. Iliopsoas and rectus were mobilized medially. Capsulotomy is performed. Blunt retractors were placed around the femoral neck and a standard femoral neck cut was performed. Attention was first turned to the acetabulum; it was sequentially reamed to accept a 48 mm Mpact 2-hole cup. A 32 mm neutral highly cross-linked polyethylene liner was inserted. The femur was then extended and externally rotated. The posterior capsule was released. The femur sequentially broached to accept a size 2 standard offset AMIS proximally coated stem. With a 32+ 4 ceramic head ball the patient equalized leg lengths and offset. The joint was lavaged. Capsule was closed. Soft tissue was injected with 266 mg 1.3% Exparel and 15 mL of 0.5% bupivacaine. The remaining wound was closed. The joint was injected with 2 g tranexamic acid topically. Sterile dressings were placed. Patient was transferred to the recovery room in stable condition. Final sponge and needle counts were correct. LINA NG MD D 11/09/2017 08:58 [id number] T 11/09/2017 09:55 TJE/MODL cc Dr. Alexander Helms : [id number] Formatting of this note may be different from the original. Brief Post Operative Note Patient Name: Noemi Caballero : 1960 (57 y.o.) Date of Service: 11/09/2017 CSN: [id number] Procedure(s): LEFT TOTAL HIP ARTHROPLASTY ANTERIOR APPROACH Pre-Operative Diagnoses: * M16.12 Post-Operative Diagnoses: * same Surgeon(s) and Role: * Lina Ng MD - Primary Anesthesiologist: Jn Cramer MD MERCHANT MARINER: Jan Hill CRNA Concrete Mixer: Ashley Salinas RN Physician Gis Geographer: Rosangela Dumont PA-C Scrub Person: Thuy House RN: Kasandra Guerra RN Operative findings: oa Intra and immediate post-operative complications: none Type of anesthesia used: Spinal Estimated blood loss: 400 mL Estimated urine output: 125 mL Specimen(s): * No specimens in log * Implant(s): Implant Name Type Inv. Item Serial No. Assembler Piano Lot No. LRB No. Used Action LINER 32MM C FLAT HIGHCROSS MPACT - [id number] LINER 32MM C FLAT HIGHCROSS MPACT MEDACTA [id number] Left 1 Implanted SHELL 48MM 2HL ACET MPACT - [id number] SHELL 48MM 2HL ACET MPACT MEDACTA [id number] Left 1 Implanted STEM SZ2 STD FEM PROX COAT TI AMISTEM-H - [id number] STEM SZ2 STD FEM PROX COAT TI AMISTEM-H MEDACTA [id number] Left 1 Implanted HEAD 32MM +4 FEM BIOLOX DELTA MECTACER - [id number] HEAD 32MM +4 FEM BIOLOX DELTA MECTACER MEDACTA [id number] Left 1 Implanted Drain(s): Urethral Catheter Non-latex 16 Fr. (Active) Wound(s): Incision 11/09/17 Hip Left (Active) Lina Ng MD 11/09/2017 8:55 AM in this encounter Ev Strickland RN - 10/21/2017 12:33 PM EST Nursing Notes (unrecognized section and content) Patient Instructions for [facility]: Prior to surgery: Please be sure to wear loose, comfortable clothing and non-skid shoes Bring your health insurance information and a photo ID, as well as your Living Will or Durable Power of Ski Lift Operator for Healthcare if it is available to you. Bring your cane/walker any applicable assistive device. If you currently use a CPAP, please bring this device with you on the day of surgery. Bring a list of your medications with the name of the medication, dose and how often you are taking it. Be sure to include herbal preparations and [id number] medications on this list. Do not eat or drink anything after midnight the night before your surgery/procedure. This includes water or liquids of any kind, food, gum, mints or hard candy. Carefully follow any instructions you were given by your Surgeon regarding further food restrictions. Do not drink any alcoholic beverages, smoke or chew tobacco during the 24 hours prior to your surgery/procedure Drink plenty of fluids the day prior to your procedure to maintain hydration but stop at midnight or bedtime On the morning of your surgery/procedure, you may brush your teeth but avoid swallowing water except for a sip with any recommended medications to be taken the morning of surgery. Bathe or shower the night before or early on the day of your surgery/procedure. Avoid the use of lotions, perfumes or powders. All nail syriac is to be removed from fingernails and toenails. Please be sure to remove all jewelry and body piercings and leave all valuables at home. You will receive a phone call between 3:30 and 7:30 pm the business day before your procedure to verify the time you should arrive at the hospital. Eyeglasses, hearing aids or dentures may be worn to the hospital. Bring your storage container for these items as you will be asked to remove them prior to your surgery/procedure. Please do not wear any contact lenses the day of your surgery/procedure. Parking at [facility] is free. Please park in the lot in front of the main lobby. Enter the Main Entrance where a Cnc Machine Setter Liaison at the information desk will greet you and accompany you to the surgery waiting area. Children under the age of 16 are NOT permitted in the Pre/Post Operative areas. They are welcome to wait with a responsible adult in the surgery waiting area. Have you had a chance to view our online educational program called Minda? It is important that you watch it as this is a standard part of your surgery preparation process here at [facility]. It will provide you with additional important information that will help to make your surgery/procedure and recovery process as smooth as possible. After your surgery: If you are having an outpatient procedure and will be going home the same day, a responsible licensed adult must be available for transportation, and is expected to remain at the hospital for the duration of your surgery/procedure. You are NOT allowed to drive yourself home. Pt. Advised of surgery call with arrival time; advised of chg Wash. in this encounter INFORMATION SOURCE (unrecogn ized section and content) DATE CREATED AUTHOR 03/01/2018 [facility] DATE CREATED AUTHOR AUTHOR'S ORGANIZ ATION 09/04/2018 [facility] DATE CREATED AUTHOR AUTHOR'S ORGANIZ ATION [facility] DATE CREATED AUTHOR AUTHOR'S ORGANIZ ATION 02/12/2022 [facility] DATE CREATED AUTHOR AUTHOR'S ORGANIZ ATION 08/13/2022 [facility] DATE CREATED AUTHOR AUTHOR'S ORGANIZ ATION 07/03/2023 [facility] DATE CREATED AUTHOR AUTHOR'S ORGANIZ ATION 07/26/2023 [facility] DATE CREATED AUTHOR AUTHOR'S ORGANIZ ATION 08/21/2023 [facility] DATE CREATED AUTHOR AUTHOR'S ORGANIZ ATION 09/13/2023 [facility] DATE CREATED AUTHOR AUTHOR'S ORGANIZ ATION 09/15/2023 Garcia Kei Osmel [facility] Care Teams (unrecognized sec tion and content) Talcer Relationship Specialty Start Date End Date Alexander Chen PCP - General 09/26/16 Team Status: Active Member Role Status Dates Alexander Chen DO Primary Care Provider Active Team Status: Inactive Member Role Status Dates Alexander Chen DO Primary Care Provider Active Mati Mcmillan MD Attending Provider Active Goals (unrecognized section and content) Goals may be documented in a n alternate section FOR RECORDS PERTAINING TO PATIENTS WHO ARE OR HAVE BEEN ENROLLED IN A CHEMICAL DEPENDENCY/SUBSTANCEABUSE PROGRAM, SOME INFORMATION MAY BE OMITTED. This clinical summary was aggregated from multiple sources. Caution should be exercised in using it in the provision of clinical care. This summary normalizes information from multiple sources, and as a consequence, information in this document may materially change the coding, format and clinical context of patient data. In addition, data may be omitted in some cases. CLINICAL DECISIONS SHOULD BE BASED ON THE PRIMARY CLINICAL RECORDS. [facility]. provides no warranty or guarantee of the accuracy or completeness of information in this document.
== END 2023-09-15 09:15 | disposition home or self-care (01) ==
LOC: CT 09:14
PROVIDERS: PCP Internal Medicine; Visit Provider Physician Assistant
DX: N20.0 Calculus of kidney (principal); R31.0 Gross hematuria
CPT/HCPCS: 74176

== ENCOUNTER 2023-10-15 09:08 | Outpatient (OUT) | payer MEDICARE, OTHER, SELFPAY ==
--- NOTE | 2023-10-15 09:17 | XR_ITS ---
[address] [address] Patient Name: NORA BRAND MRN: [id number] date: 1960 Sex: F [place]igned Patient Location: [place] Current Patient Location: [place] Accession/Order Number: [id number] Exam Date: 10/15/2023 11:00 Report Date: 10/15/2023 11:56 At the request of: ANDRE MCNEIL Procedure: XR IVP w KUB EXAMINATION: XR IVP w KUB HISTORY: n20.0 calculus of kidney COMPARISON: CT abdomen pelvis 09/15/2023 TECHNIQUE: After obtaining patient consent a breaker unit assembler image was obtained followed by injection of 100cc of Omnipaque 300 IV contrast. Immediate nephrographic images were obtained. Corticomedullary and urographic phase images were obtained at 5, 10, 15 and 20 minutes. 15 minute oblique images were also obtained. FINDINGS: KIDNEY/URETER - RIGHT: No visible calcifications. KIDNEY/URETER - LEFT: No visible calcifications. PELVIS: No visible ureteral calcifications. Any visible calcifications favor phleboliths. NEPHROGRAPHIC PHASE: Normal, symmetric size, contour, and orientation. Normal and symmetric time of contrast uptake. CORTICOMEDULLARY: No mass or abnormal appearing medulla, pyramids, or collecting system. UROGRAPHIC PHASE: Normal caliber, course, and number of ureters. BLADDER: Normal size and contour. Complete emptying upon voiding. BOWEL: No abnormal dilation or deviation. BONES: No acute abnormality. Bilateral hip replacements. OTHER: Filter within the IVC. XR/XR IVP w KUB IMPRESSION: 1. No urinary tract stones or obstructive uropathy. Findings indicate passage of previously seen distal right ureteral stone. Electronically authenticated by: YESENIA BLACK Date: 10/15/2023 11:56
[2023-10-15 10:32] LABS: Estimated GFR (African America 56 (>=60); Estimated GFR (Non-African Ame 46 (>=60)
== END 2023-10-15 09:09 | disposition home or self-care (01) ==
LOC: FL 09:09
PROVIDERS: Radiology Diagnostic Radiology; PCP Internal Medicine; Visit Provider Physician Assistant
DX: N20.0 Calculus of kidney (principal)
CPT/HCPCS: 36415; 74400; 82565; Q9967

== ENCOUNTER 2024-06-26 20:59 | Outpatient (REF) | payer MEDICARE, OTHER, SELFPAY ==
--- OUTSIDE RECORDS SUMMARY | 2024-06-26 21:04 | XMS_ITS | CCD ---
Author Organization [facility] Care Team Providers Care Machine Packager Name Role Phone Alexander Chen Unavailable Rossana Reid Unavailable ROSANGELA DUMONT Unavailable Unavailabl e YUCARLS, ALEXANDER JOSE Unavailable Unavailable LINA ELIZABETH Unavailable Unavailable LINA ELIZABETH Unavailable Unavailable [facility] Unavailable U navailable YUHAS, ALEXANDER JOSE Unavailable Unavailable LINA ELIZABETH Unavailable Unavailable ROSSANA REID Unavailable Unavailable YUHAS ALEXANDER JOSE Unavailable Unavailable LINA ELIZABETH Unavailable Unavailable LINA ELIZABETH Unavailable Unavailable YUHAS, ALEXANDER JOSE Unavailable Unavailable LINA ELIZABETH Unavailable Unavailable LINA ELIZABETH Unavailable Unavailable [facility] Unavailable U navailable YUHAS, ALEXANDER JOSE Unavailable Unavailable LINA ELIZABETH Unavailable Unavailable ROSSANA REID Unavailable Unavailable YUCARLS ALEXANDER JOSE Unavailable Unavailable Alexander Chen Primary Care Provider SHEREE VILLAR Referring Unavailable ALEXANDER CHEN Primary Care Unavailable KAREN MENJIVAR, DR ТАТЬЯНА Sorto Admitting Unavailantoni JONES JR, DR ТАТЬЯНА Sorto Attending Unavailabl e APRIL, DR MUNOZ Primary Care Unavailable SOFIA, DR YESENIA Russell Consulting Unavailable KAREN MENJIVAR, DR ТАТЬЯНА Sorto Consulting Unavailantoni e ROYAL, DR PAK Admitting Unavailable ROYAL, DR PAK Attending Unavailable APRIL, DR MUNOZ Primary Care Unavailable GROVELAND, DR LANEY Diaz Consulting Unavailable ROYAL, DR PAK Consulting Unavailable ROYAL, DR PAK Admitting Unavailable ROYAL, DR PAK Attending Unavailable APRIL, DR MUNOZ Primary Care Unavailable ROYAL, DR PAK Consulting Unavailable ALEXANDER CHEN Primary Care Physician [phone] DO April [facility] Primary Care Provider [phone] MD Mati Mcmillan Attending Provider Yucarls DO, Alexander L Primary Care Provider Yuhas, DO [facility] Primary Care Provider MD Contreras Mcmillan Attending Provider Orzech Leann X Admitting Unavailable Orzech, Leann X Attending Unavailable GERRY, DIANA E Attending Unavailable GERRY, DIANA E Attending Unavailable GERRY, DIANA E Attending Unavailable GERRY, DIANA E Attending Unavailable GERRY, DIANA E Attending Unavailable GERRY, DIANA E Attending Unavailable Lue, Kasandra M. Admitting Unavailable Lue, Kasandra M. Attending Unavailable GERRY, DIANA E Attending Unavailable GERRY, DIANA E Admitting Unavailable Yuhas, DO [facility] Primary Care Provider FAB StanleyC Carlotta Sorto Attending Provider Contreras Mcmillan Admitting Unavailable Deyanira, Contreras Attending Unavailable Yuhas, Alexander Primary Care Unavailable Mcmillan, Contreras Admitting Unavailable Mcmillan, Contreras Attending Unavailable Yuhas, Alexander Primary Care Unavailable Yuhas, Alexander Primary Care Unavailable Mcmillan, Contreras Admitting Unavailable Mcmillan, Contreras Attending Unavailable ObermeyerCarlotta Admitting Unavailable ObermeyCarlotta sanders Attending Unavailable Yuhas, Alexander Primary Care Unavailable YUHAS, ALEXANDER L Attending Unavailable YUHAS, ALEXANDER L Referring Unavailable YUHAS, ALEXANDER L Primary Care Unavailable YUHAS, ALEXANDER L Referring Unavailable YUHAS, ALEXANDER L Primary Care Unavailable MAURO LEVIN Attending Unavailable MAURO LEVIN Attending Unavailable MAURO LEVIN Attending Unavailable MAURO LEVIN Attending Unavailable Lnia Schwab MD Attending [facility] DO, Alexander Bhatiaard Primary Care Unavailab le Yuhas DO, Alexander Garcia Primary Care Unavailab le Rampart [employer], Jillian Hernandez Attending Karli morillo [facility], Alexander Garcia Primary Care Unavailab le Rampart [employer], Jillian Hernandez Attending U Lina Rincon MD Mateus Attending [facility] , Alexander Garcia Primary Care Unavailab corrine Schwab MD, Lina Ignacio Attending [facility] Alexander Garcia Primary Care Unavailab corrine Schwab MD, Lina Ignacio Attending [facility], Alexander Garcia Primary Care Unavailab le Rampart [employer], Jillian Hernandez Attending U [facility] , Alexander Garcia Primary Care Unavailab le Yuhas DO, Alexander Garcia Primary Care Unavailab le Rampart [employer], Jillian Hernandez Attending Karli Schwab MD, Lina Ignacio Attending [facility], Alexander Garcia Primary Care Unavailab le Jace [employer], Dorys Go Attending Una ailable [facility] , Alexander Garcia Primary Care Unavailab le Yuhas DO, Alexander Gacria Primary Care Unavailab corrine Schwab MD, Lina Ignacio Attending [facility], Alexander Garcia Primary Care Unavailab le Rampart [employer], Jillian Hernandez Attending Karli Schwab MD, Lina Ignacio Attending [facility], Alexander Garcia Primary Care Unavailab le Yuhas DO, Alexander Garcia Primary Care Unavailab le Rampart [employer], Jillian Hernandez Attending ilia Mccormick [employer], Dorys Go Attending [facility] ailable Yuhas DO, Alexander Garcia Primary Care Unavailab le Jace [employer], Dorys Go Attending [facility] ailable Yus , Alexander Garcia Primary Care Unavailab le Yuhas , Alexander Garcia Primary Care Unavailab le Jace [employer], Dorys Go Attending Una ailable YUHAS, ALEXANDER L Primary Care Unavailable SERVICE, JOBST Referring Unavailable YUHAS, ALEXANDER L Primary Care Unavailable JILLIAN NIEVES Referring Unavailable YUHAS, ALEXANDER L Primary Care Unavailable SERVICE, JOBST Referring Unavailable YUHAS, ALEXANDER L Primary Care Unavailable SERVICE, JOBST Referring Unavailable YUHAS, AELXANDER L Primary Care Unavailable SERVICE, JOBST Referring Unavailable YUHAS, ALEXANDER L Primary Care Unavailable SERVICE, JOBST Referring Unavailable YUHAS, ALEXANDER L Primary Care Unavailable SERVICE, JOBST Referring Unavailable YUHAS, ALEXANDER L Primary Care Unavailable SERVICE, JOBST Referring Unavailable YUHAS, ALEXANDER L Primary Care Unavailable SERVICE, JOBST Referring Unavailable YUHAS, ALEXANDER L Primary Care Unavailable SERVICE, JOBST Referring Unavailable YUHAS, ALEXANDER L Primary Care Unavailable SERVICE, JOBST Referring Unavailable YUHAS, ALEXANDER L Primary Care Unavailable SERVICE, JOBST Referring Unavailable YUHAS, ALEXANDER L Primary Care Unavailable SERVICE, JOBST Referring Unavailable YUHAS, ALEXANDER L Primary Care Unavailable SERVICE, JOBST Referring Unavailable YUHAS, ALEXANDER L Primary Care Unavailable SERVICE, JOBST Referring Unavailable YUHAS, ALEXANDER L Primary Care Unavailable SERVICE, JOBST Referring Unavailable YUHAS, ALEXANDER L Primary Care Unavailable SERVICE, JOBST Referring Unavailable YUHAS, ALEXANDER L Primary Care Unavailable SERVICE, JOBST Referring Unavailable YUHAS, ALEXANDER L Primary Care Unavailable SERVICE, JOBST Referring Unavailable Provider, None Primary Care Unavailable Rampart, Jillian M Attending Unavailable Rampart, Jillian M Admitting Unavailable Rampart, Jillian M Admitting Unavailable Rampart, Jillian M Attending Unavailable Provider, None Primary Care Unavailable Provider, None Primary Care Unavailable Rampart, Jillian M Attending Unavailable Rampart, Jillian M Admitting Unavailable Provider, None Primary Care Unavailable Rampart, Jillian M Admitting Unavailable Rampart, Jillian M Attending Unavailable Provider, None Primary Care Unavailable Rampart, Jillian M Admitting Unavailable Rampart, Jillian M Attending Unavailable Rampart, Jillian M Admitting Unavailable Rampart, Jillian M Attending Unavailable Provider, None Primary Care Unavailable KINDL, LINA F Attending Unavailable KINDL, LINA F Admitting Unavailable Provider, None Primary Care Unavailable KINDL, LINA F Attending Unavailable KINDL, LINA F Admitting Unavailable Provider, None Primary Care Unavailable Provider, None Primary Care Unavailable KINDL, LINA F Attending Unavailable KINDL, LINA F Admitting Unavailable Provider, None Primary Care Unavailable KINDL, LINA F Attending Unavailable KINDL, LINA F Admitting Unavailable Provider, None Primary Care Unavailable KINDL, LINA F Attending Unavailable KINDL, LINA F Admitting Unavailable Rampart, Jillian M Admitting Unavailable Provider, None Primary Care Unavailable Rampart, Jillian M Attending Unavailable Provider, None Primary Care Unavailable KINDL, LINA F Admitting Unavailable KINDL, LINA F Attending Unavailable Alexander Chen MD Primary Care Provider Allergies Allergy Classification Reported Allergen(s) Allergy Type Date of Onset Reaction(s) Facility Corticosteroids (1 source) predniSONE Drug Allergy 03-26-20 [facility] [place] (1 source) [place] Drug Allergy 03-26-20 21 pt states put me in a coma [facility] lubiprostone (1 source) lubiprostone Drug Allergy 03-26-20 VOMITING [facility] milnacipran (1 source) milnacipran Drug Allergy 03-26-20 21 Confusion [facility] NSAIDs (1 source) meloxicam Drug Allergy 02-06-20 blood in urine [facility] Penicillins (antibiotic) (1 source) Amoxicillin Drug Allergy 02-06-20 20 Hives [facility] Serotonin Reuptake Inhibitors (SSRIs) (1 source) Sertraline Drug Allergy 03-26-20 Chest Pain [facility] vortioxetine (1 source) vortioxetine Drug Allergy 02-06-20 Vomiting [facility] (20 sources) erythromycin; Translations: [ERYTHROMYCIN] Propensity to adverse reactions to drug 05-10-20 13 Other (See Comments), Unknown (qualifier value), Abnormal Behavior, [facility] Work Phone: (16 sources) lithium; Translations: [LITHIUM] Propensity to adverse reactions to drug 10-18-19 18 Other (See Comments), Unknown (qualifier value), [facility] Work Phone: (20 sources) predniSONE; Translations: [PREDNISONE] Propensity to adverse reactions to drug 09-26-19 17 Swelling, Unknown (qualifier value) [facility] Work Phone: (20 sources) sertraline; Translations: [SERTRALINE] Propensity to adverse reactions to drug 05-10-20 13 Other (See Comments), Unknown (qualifier value), [facility] Work Phone: (17 sources) Penicillins; Translations: [PENICILLINS] Propensity to adverse reactions to drug (disorder) 08-30-20 18 [facility] (20 sources) vortioxetine; Translations: [VORTIOXETINE] Drug Allergy 08-12-20 18 Nausea And Vomiting [facility] (2 sources) milnacipran Drug Allergy 09-26-19 17 [facility] Work Phone: (5 sources) Amoxicillin; Translations: [amoxicillin] Drug Allergy 02-06-20 20 Hives [facility] Repository (6 sources) Erythromycin; Translations: [erythromycin base] Drug Allergy 02-26-20 14 Gastrointestinal Upset [facility] Repository (1 source) [place] Drug Allergy 07-09-20 17 [facility] Repository (1 source) meloxicam Drug Allergy [facility] Repository (5 sources) meloxicam; Translations: [MELOXICAM] Drug Allergy 02-16-20 19 blood in urine [facility] Repository (2 sources) milnacipran; Translations: [Savella] Drug Allergy 02-26-20 14 [facility] Repository (1 source) predniSONE Drug Allergy 02-26-20 14 [facility] Repository (4 sources) Sertraline; Translations: [Zoloft] Drug Allergy [facility] Repository (10 sources) vortioxetine; Translations: [vortioxetine] Drug Allergy Blood in urine (finding) [facility] Repository (6 sources) Amoxicillin; Translations: [amoxicillin] Drug Allergy Weal (disorder) [facility] (20 sources) milnacipran; Translations: [milnacipran] Drug Allergy 02-06-20 Unknown (qualifier value), Other (See Comments) [facility] (13 sources) meloxicam Drug Allergy 02-16-[address] [facility] [employer] [facility] Work Phone: (15 sources) sevelamer; Translations: [SEVELAMER] Drug Allergy 01-26-20 17 [facility] (15 sources) [place] Analogues; Translations: [LITHIUM ANALOGUES] Propensity to adverse reactions to drug 01-26-20 17 Other (See Comments) [facility] (1 source) Amoxicillin Drug Allergy 02-06-20 [facility] Repository (1 source) Erythromycin Drug Allergy 03-26-20 [facility] Repository (1 source) [place] Drug Allergy 03-26-20 [facility] Repository (1 source) lubiprostone Drug Allergy 03-26-20 [facility] Repository (1 source) meloxicam Drug Allergy 02-06-20 [facility] Repository (1 source) milnacipran Drug Allergy 03-26-20 21 [facility] Repository (1 source) predniSONE Drug Allergy 03-26-20 21 [facility] Repository (1 source) Sertraline Drug Allergy 03-26-20 21 [facility] Repository (1 source) lurasidone; Translations: [Latuda] Drug Allergy [facility] Repository (1 source) lubiprostone Drug Allergy 03-26-20 21 [facility] (1 source) lurasidone Drug Allergy 02-18-20 24 [facility] (1 source) meloxicam Drug Allergy 02-06-20 20 [facility] (1 source) milnacipran Drug Allergy 11-15-19 14 Hives [facility] (1 source) Prednisone Allergy to substance 05-11-20 13 Swelling [facility] (1 source) sevelamer Drug Allergy 10-23-19 22 [facility] Medications Current Medications Medication Drug Class(es) Dates Sig (Normalized) Sig (Original) acetaminophen 325 mg / butalbital 50 mg / caffeine 40 mg oral tablet (1 source) Barbiturate, Central Nervous System Stimulant, Methylxanthine Start: 06-15-2024 End: 07-15-2024 take 1 tablet by mouth every six hours for headache butalbital-acetam inophen-caffeine (Esgic) 50-325-40 MG tablet Indications: Migraine without aura and without status migrainosus, not intractable (CMS/HCC) Take 1 tablet by mouth every 6 (six) hours if needed for headaches or migraine 20 tablet 2 06/15/2024 07/15/2024 Active acetaminophen 300 mg / butalbital 50 mg / caffeine 40 mg / codeine phosphate 30 mg oral capsule (9 sources) Opioid Agonist, Barbiturate, Central Nervous System Stimulant, Methylxanthine Start: 12-08-2019 Butalbital-Acetam qzxx-Gii-Brp Active 2 CAP PO As Directed February 02, 2020 12:00am acetaminophen 325 mg / oxyCODONE hydrochloride 5 mg oral tablet (17 sources) Opioid Agonist Start: 02-02-2020 take 1 tablet by mouth three times daily Oxycodone-Acetami nophen (Percocet) 5-325 mg Tablet Active 1 TAB [...] by mouth every four hours as needed take 1 tablet by veronica th twice daily as needed oxyCODONE-acetaminophen (PERCOCET) 5-325 mg per tablet Take 1 tablet by mouth 2 (two) times a day as needed. 0 Active End: 11-11-2017 take 1 tablet by mouth every six hours as needed oxyCODONE-acetaminophen (PERCOCET) 5-325 mg per tablet Take 1 tablet by mouth every 6 (six) hours as needed for pain TAKES 1 TABLET . 11/11/2017 Discontinued [id number] actuat albuterol 0.09 mg/actuat metered dose inhaler (20 sources) beta2-Adrenergic Agonist Start: 03-08-2024 take 2 puff(s) by inhalation every six hours as needed for wheezing albuterol (PROVENTIL HFA;VENTOLIN HFA) 90 mcg/actuation inhaler Indications: Mild persistent asthma without complication Inhale 2 puffs every 6 (six) hours as needed for wheezing. 18 g 3 03/08/2024 Active Start: 07-24-2022 albuterol HFA 90 mcg/act inhaler 07/24/2022 Active Start: 07-24-2022 take 2 puff(s) by in halation every six hours as needed for wheezing albuterol (PROVENTIL HFA;VENTOLIN HFA) 90 mcg/actuation inhaler Indications: Mild persistent asthma without complication Inhale 2 puffs every 6 (six) hours as needed for wheezing. 18 g 11 07/24/2022 Active Start: 02-02-2020 take 2.5 mg by inhal ation four times daily Albuterol Sulfate Active 2.5 MG INHALATION Four times daily February 02, 2020 12:00am Start: 12-08-2019 albuterol 2.5 mg, NEB, Refills(s) 0, Asthma Start Date: 12/08/19 Status: Ordered albuterol (2.5 M G/3ML) 0.083% nebulizer solution every 8 (eight) hours. Active take 2 puff(s) by in halation every six hours as needed for wheezing albuterol sulfate HFA 108 (90 BASE) MCG/ACT inhaler Inhale 2 puffs into the lungs every 6 hours as needed for Wheezing 0 Active aspirin 81 mg delayed release oral tablet (20 sources) Nonsteroidal Anti-inflammatory Drug Start: 02-02-2020 take 81 mg by mouth once daily at bedtime Aspirin Active 81 MG PO Daily at bedtime February 02, 2020 12:00am Start: 12-08-2019 take 1 mg by mouth once daily aspirin 81 mg oral tablet mg tab(s), Oral, Daily, Refills(s) 0 Start Date: 12/08/19 Status: Ordered aspirin 81 mg ch ewable tablet Chew 1 tablet (81 mg total) and swallow. Active take 2 tablets by mo [facility] once daily aspirin 81 MG chewable tablet [...] Anti-inflammatory Drug, Central Nervous System Stimulant, Methylxanthine qfoemmq-dveyrrgsxx-Y SA-caff (tginmhtuqw-xlksokg-wimrjjnj-codeine) capsule Indications: MIGRAINES Take 1 capsule by mouth continuous as needed for pain TAKES 2 TABLETS, EACH TABLET IS 30 MG ReasonsMIGRAINES. Active atorvastatin 80 mg oral tablet (20 sources) HMG-CoA Reductase Inhibitor Star t: 12-13 atorvastatin (LIPITOR) 80 mg tablet Indications: Mixed hyperlipidemia TAKE 1 TABLET IN THE MORNING 90 tablet 3 01/04/2024 Active Start: 04-27-2023 atorvastatin ( LIPITOR) 80 mg tablet Indications: Mixed hyperlipidemia TAKE 1 TABLET IN THE MORNING 90 tablet 0 10/06/2023 Active Start: 12-08-2019 take 1 tablet by veronica th once daily at bedtime Atorvastatin (Lipitor) 40 mg Tablet Active 40 MG PO Daily at bedtime February 02, 2020 12:00am Start: 11-09-2017 End: 11-11-2017 baclofen 10 mg oral tablet (20 sources) gamma-Aminobutyric Acid-ergic Agonist Start: 05-17-2024 baclofen (LIORESAL) 10 mg tablet Indications: Cervical spondylosis with radiculopathy TAKE 1 TABLET FOUR TIMES A DAY 360 tablet 05/17/2024 Active Start: 08-25-2023 BACLOFEN 10 MG TABLET BACLOFEN 10 MG TABLET Start Date: 08/25/23 Status: Ordered Start: 01-07-2023 baclofen (MAREN ESAL) 10 mg tablet Indications: Cervical spondylosis with radiculopathy TAKE 1 TABLET FOUR TIMES A DAY 360 tablet 3 01/07/2023 Active Start: 02-02-2020 take 20 mg by mouth four times daily Baclofen Active 20 MG PO Four times daily February 02, 2020 12:00am Start: 12-08-2019 take 1 tablet by veronica th four times daily baclofen 20 mg Tab 20 mg = 1 tab(s), Oral, QID, Refills(s) 0 Start Date: 12/08/19 Status: Ordered Start: 11-09-2017 End: 11-11-2017 baclofen (Liores al) 10 MG tablet every 6 (six) hours. Active take 1 tablet by veronica four times daily baclofen (LIORESAL) 20 MG tablet Indications: FIBROMYALGIA Take 20 mg by mouth 4 (four) times a day TAKES 1 TABLET ReasonsFIBROMYALGIA. Active betamethasone / clotrimazole (4 sources) Azole Antifungal, Corticosteroid Start: 02-02-2020 apply 15 g topically once daily Lotrisone Active 15 GM TOPICAL Daily February 01, 2020 11:00pm Start: 02-02-2020 apply 15 g topically once wendy y Lotrisone Active 15 GM TOPICAL Daily February 02, 2020 12:00am Start: 11-10-2017 End: 11-11-2017 clotrimazole-betamethasone (LOTRISONE) cream biotin 1 mg oral tablet (10 sources) Start: 11-15-2023 biotin 1000 MC G tablet See Instructions, Instructions: 2tab(s) Oral Daily and 1 tab at night, 0 Refill(s) 11/15/2023 Active Start: 02-04-2021 take 2 tablets by mo [facility] once daily biotin 1000 mcg oral tablet 2,000 mcg = 2 tab(s), Oral, Daily, # 30 tab(s), Refills(s) 0 Start Date: 02/04/21 Status: [facility] BIOTIN ORAL Take 1 tablet by mouth in the morning and at bedtime. Active 24 hr buPROPion hydrochloride 300 mg extended release oral tablet (20 sources) Aminoketone Start: 01-13-2023 buPROPion XL ( Wellbutrin XL) 300 MG 24 hr tablet 01/13/2023 Active Start: 02-02-2020 take 150 mg by mouth once daily in the morning Bupropion Hcl Active 150 MG PO Every morning February 02, 2020 12:00am Start: 12-08-2019 take 1 mg by mouth twice daily buPROPion 150 mg ER Tab mg tab(s), Oral, BID, Refills(s) 0 Start Date: 12/08/19 Status: Ordered busPIRone hydrochloride 10 m g oral tablet (20 sources) Start: 02-04-2021 busPIRone (BUS PAR) 10 mg tablet Take 1 tablet (10 mg total) by mouth. 02/04/2021 Active Start: 02-02-2020 take 10 mg by mouth once daily in the morning Buspirone Active 10 MG PO Every morning February 02, 2020 12:00am Start: 02-02-2020 take 20 mg by mouth once daily in the evening Buspirone Active 20 MG PO Every evening February 02, 2020 12:00am cholecalciferol 0.125 mg oral tablet (19 sources) Vitamin D Start: 02-02-2020 take 1 tablet by mouth once daily Cholecalciferol (Vitamin D3) (Vitamin D3) 125 mcg (5,000 unit) Tablet Active 125 MCG PO Daily February 02, 2020 12:00am cholecalciferol, vitamin D3, 5,000 units tablet 1 tablet (5,000 Units total). Active Cholecalciferol (VITAMIN D3) 2000 UNITS CAPS Take 1,000 Units by mouth daily 0 Active take 1 tablet by veronica once daily in the morning cholecalciferol, vitamin D3, (VITAMIN D3 ) 5,000 unit Tab tablet Indications: SUPPLEMENT Take 5,000 Units by mouth every morning TAKES 1 TABLET . Active cycloSPORINE 0.5 mg/ml ophthalmic suspension (4 sources) Calcineurin Inhibitor Immunosuppressant Start: 02-02-2020 take 1 drop(s) into the eye(s) every twelve hours Cyclosporine (Restasis) 0.05 % Dropperette Active 1 DROPS EYE-BOTH Q12H February 02, 2020 12:00am cycloSPORINE (Re stasis) 0.05 % ophthalmic emulsion every 12 (twelve) hours. Active dexlansoprazole 60 mg delayed release oral capsule [...] day TAKES 1 TABLET ReasonsGastroesophageal Reflux. Active diclofenac sodium 0.01 mg/mg topical gel (14 sources) Nonsteroidal Anti-inflammatory Drug Start: 03-07-2024 diclofenac sodium (VOLTAREN) 1 % gel Indications: Generalized osteoarthritis APPLY 2 GM TOPICALLY IN THE MORNING, AT NOON, IN THE EVENING, AND BEFORE BEDTIME 300 g 1 03/07/2024 Active Start: 11-24-2022 diclofenac sod ium 1 % gel 11/24/2022 Active Start: 11-23-2022 diclofenac sod ium (VOLTAREN) 1 % gel Indications: Generalized osteoarthritis Apply 2 g topically in the morning and 2 g at noon and 2 g in the evening and 2 g before bedtime. 100 g 2 11/23/2022 Active doxycycline hyclate 100 mg oral capsule (3 sources) Tetracycline-class Drug Start: 12-03-2023 take 1 capsule by mouth once daily doxycycline (VIBRAMYCIN) 100 mg capsule take 1 capsule by mouth once daily as directed 0 12/03/2023 Active 0.8 ml enoxaparin sodium 100 mg/ml [...] 0 Active famotidine 40 mg oral tablet (19 sources) Histamine-2 Receptor Antagonist Start: 03-18-2023 famotidine (PEPCID) 40 mg tablet Indications: Gastroesophageal reflux disease, unspecified whether esophagitis present TAKE 1 TABLET IN THE MORNING 90 tablet 1 01/28/2024 Active FeroSul 325 mg oral tablet (5 sources) Start: 08-25-2023 FeroSul 325 mg oral tablet Refills(s) 0 Start Date: 08/25/23 Status: Ordered ferrous sulfate 325 mg oral tablet (18 sources) Start: 06-13-2024 take 1 tablet by mouth in the morning, then take 1 tablet by mouth at mealtime ferrous sulfate (FeroSuL) 325 (65 FE) mg tablet Indications: Iron deficiency anemia due to chronic blood loss Take 1 tablet (325 mg total) by mouth in the morning and 1 tablet (325 mg total) in the evening. Take with meals. 180 tablet 1 06/13/2024 Active Start: 08-23-2023 End: 06-13-2024 take 1 tablet by mouth once daily in the morning FeroSuL 325 mg (65 mg iron) tablet Indications: Iron deficiency anemia due to chronic blood loss take 1 tablet by mouth every morning and 1 tablet at bedtime 180 tablet 1 02/18/2024 06/13/2024 Discontinued (Reorder) Start: 02-02-2020 take 325 mg by mouth once wendy y Ferrous Sulfate Active 325 MG PO Daily February 02, 2020 12:00am Fish Oils (6 sources) Start: 02-04-2021 Fish Oil 1,200 mg, Oral, Refill(s) 0 Start Date: 02/04/21 Status: Ordered 120 actuat fluticasone propionate 0.23 mg/actuat / salmeterol 0.021 mg/actuat metered dose inhaler (20 sources) Corticosteroid, beta2-Adrenergic Agonist Start: 01-31-2023 fluticasone propion-salmeteroL (ADVAIR HFA) 230-21 mcg/actuation inhaler Indications: Mild persistent asthma without complication USE 2 INHALATIONS TWICE A DAY 36 g 1 01/17/2024 Active Start: 02-04-2021 take 2 puff(s) by in halation twice daily Advair HFA 230 mcg-21 mcg Aerosol 2 puff(s), Inhalation, BID, Refill(s) 6 Start Date: 02/04/21 Status: Ordered Start: 02-02-2020 take 1 puff(s) by in halation twice daily Fluticasone Propion-Salmeterol (Advair Hfa) 230-21 mcg/actuation Hfa Aerosol Inhaler Active 2 PUFF INHALATION Twice daily February 01, 2020 11:00pm Start: 02-02-2020 take 1 puff(s) by in halation twice daily Fluticasone Propion-Salmeterol (Advair Hfa) 230-21 mcg/actuation Hfa Aerosol Inhaler Active 2 PUFF INHALATION Twice daily February 02, 2020 12:00am FLUTICASONE/SALM ETEROL (ADVAIR HFA INHL) Indications: ASTHMA Inhale 2 (two) times a day DOES 2 PUFFS ReasonsASTHMA. Active folic acid 1 mg oral tablet (20 sources) Start: 12-08-2019 folic acid (FO LVITE) 1 mg tablet Indications: Iron deficiency anemia, unspecified iron deficiency anemia type take 1 tablet daily 90 tablet 05/08/2024 Active gabapentin 300 mg oral capsule (20 sources) Anti-epileptic Agent Start: 06-07-2024 gabapentin (Neuronti n) 300 MG capsule Indications: Lumbar radiculopathy TAKE 1 CAPSULE IN THE MORNING AND 1 CAPSULE AT NOON AND 1 CAPSULE IN THE EVENING AND 1 CAPSULE BEFORE BEDTIME 360 capsule 3 06/07/2024 Active Start: 02-02-2020 take 1 capsule by mo flh four times daily Gabapentin (Neurontin) 300 mg [...] 09/28/2016 Active take 1 tablet by veronica four times daily gabapentin (NEURONTIN) 600 MG tablet Indications: Neuropathic Pain Take 600 mg by mouth 4 (four) times a day TAKES 1 TABLET ReasonsNeuropathic Pain. Active 1 ml galcanezumab-gnlm 120 m g/ml auto-injector (18 sources) Start: 02-18-2024 End: 02-17-2025 galcanezumab (Emgality) 120 MG/ML auto-injector Indications: Migraine without aura and without status migrainosus, not intractable (CMS/HCC) Inject 1 Syringe (120 mg) under the skin every 30 (thirty) days 3 each 3 02/18/2024 02/17/2025 Active Start: 02-02-2020 Galcanezumab-G nlm (Emgality Syringe) 120 mg/mL Syringe Active 120 MG SUBCUT Q30D February 02, 2020 12:00am Start: 12-08-2019 inject 1 mg by subcu taneous injection every month Emgality Prefilled Pen 120 mg/mL subcutaneous solution SubCutaneous, qMonth, Refills(s) 0 Start Date: 12/08/19 Status: Ordered latanoprost 0.05 mg/ml ophthalmic solution (3 sources) Prostaglandin Analog Start: 02-02-2020 take 1 drop(s) into the eye(s) once daily in the evening Latanoprost Active 1 DROPS EYE-BOTH Every evening February 02, 2020 12:00am linaclotide (16 sources) Guanylate Cyclase-C Agonist Start: 02-02-2020 take 1 capsule by mouth once daily Linaclotide (Linzess) 290 mcg Capsule Active 290 MCG PO Daily February 01, 2020 11:00pm Start: 02-02-2020 take 1 capsule by mo ut once daily Linaclotide (Linzess) 290 mcg Capsule Active 290 MCG PO Daily February 02, 2020 12:00am linaCLOtide (FANNIE ZESS) 145 mcg capsule Take 30 mg by mouth as needed. Active lithium carbonate 300 mg oral tablet (2 sources) End: 10-18-2017 take 1 tablet by mouth three times daily lithium 300 MG tablet Take 300 mg by mouth 3 times daily 0 Active loratadine 10 mg oral tablet (1 source) loratadine (Claritin) 10 MG tablet 1 (one) time each day at the same time. Active 24 hr loratadine 10 mg / pseudoephedrine sulfate 240 mg extended release oral tablet (5 sources) alpha-Adrenergi c Agonist Start: 02-02-2020 take 1 tablet by mouth once daily at bedtime, then take 1 tablet by mouth every twenty-four hours Loratadine-Pseudo ephedrine (Claritin-D 24 Hour) 10-240 mg Tablet Extended Release 24 Hr Active 1 TAB PO Daily at bedtime February 02, 2020 12:00am take 1 tablet by mouth once oscar tadine-pseudoePHEDrine (loratadine- pseudoephedrine) 5-120 mg Tb12 Indications: Allergic Rhinitis Take by mouth nightly TAKES 1 TABLET ReasonsAllergic Rhinitis. Active losartan potassium 50 mg oral tablet (4 sources) Angiotensin 2 Receptor Chery Start: 02-02-2020 take 1 tablet by mouth once daily Losartan (Cozaar) 50 mg Tablet Active 50 MG PO Daily February 02, 2020 12:00am losartan (Cozaar ) 100 MG tablet 1 (one) time each day at the same time. Active lurasidone hydrochloride 40 mg oral tablet (1 source) Atypical Antipsychotic Start: 12-08-2019 take 1 mg by mouth once daily Latuda 40 mg oral tablet mg tab(s), Oral, Daily, Refills(s) 0 Start Date: 12/08/19 Status: Ordered meloxicam 7.5 mg oral tablet (1 source) Nonsteroidal Anti-inflammatory Drug meloxicam (Mobic) 7. 5 MG tablet 1 (one) time each day at the same time. Active metoclopramide 10 mg oral tablet (19 sources) Dopamine-2 Receptor Antagonist Start: 05-17-2024 metoclopramide (REGLAN) 10 mg tablet Indications: Gastroesophageal reflux disease, unspecified whether esophagitis present TAKE 1 TABLET THREE TIMES A DAY 270 tablet 05/17/2024 Active Start: 07-29-2023 End: 12-15-2023 metoclopramide (REGLAN) 10 m g tablet Indications: Gastroesophageal reflux disease, unspecified whether esophagitis present TAKE 1 TABLET THREE TIMES A DAY 270 tablet 1 12/15/2023 Active Start: 02-04-2021 take 1 tablet by veronica th three times daily Reglan 10 mg Tab 10 mg = 1 tab(s), Oral, TID, Refills(s) 0 Start Date: 02/04/21 Status: Ordered Start: 11-10-2017 End: 11-10-2017 metoclopramide (REGLAN) inje ction 10 mg Start: 11-10-2017 End: 11-10-2017 metoclopramide (REGLAN) 5 mg /mL injection - ADS Override Pull Start: 11-10-2017 End: 11-10-2017 metoclopramide (REGLAN) inje ction 10 mg metoclopramide ( Reglan) 10 MG tablet every 8 (eight) hours. Active mometasone furoate 0.05 mg/actuat metered dose nasal spray (1 source) Corticosteroid mometasone (NASO NEX) 50 MCG/ACT nasal spray 2 sprays by Nasal route daily 0 Active montelukast 10 mg oral tablet (20 sources) Leukotriene Receptor Antagonist Start: 12-08-2019 montelukast (SINGULAIR) 10 mg tablet TAKE 1 TABLET DAILY 90 tablet 3 08/10/2023 Active Start: 11-09-2017 End: 11-11-2017 naltrexone hydrochloride 50 mg oral tablet (13 sources) Opioid Antagonist take 1.5 mg by mouth in the morning naltrexone (REVIA) 50 mg tablet Take 1.5 mg by mouth in the morning. Active nitrofurantoin, macrocrystals 25 mg / nitrofurantoin, monohydrate 75 mg oral capsule (3 sources) Nitrofuran Antibacterial Start: 01 End: 10-01-19 take 1 capsule by mouth twice daily Macrobid 100 mg Cap 100 mg = 1 cap(s), Oral, BID, X 7 day(s), # 14 cap(s), Refills(s) 0, [facility]acy: [id number], 165, cm, 08/25/23 12:52:00 EST, Height/Length Dosing, 97, kg, 08/25/23 12:52:00 EST, Weight Dosing Start Date: 09/24/23 Stop Date: 10/01/23 Status: Ordered nystatin 100 unt/mg topical powder (17 sources) Polyene Antifungal Start: 03-07-20 nystatin (NYSTOP) powder Indications: An rash of groin APPLY 1 APPLICATION TOPICALLY TWICE A DAY NEEDED (RASH OR ITCHING) 60 g 2 03/07/2024 Active Start: 03-19-2023 nystatin (MYCO STATIN) powder Indications: An rash of groin Apply 1 Application topically 2 (two) times a day as needed (Rash or itching). 30 g 1 03/19/2023 Active Start: 02-02-2020 Nystatin (Nyam yc) 100,000 unit/gram Powder Active 1 APPLIC TOPICAL Twice daily February 02, 2020 12:00am Start: 11-10-2017 End: 11-11-2017 nystatin (MYCOSTATIN) powder omega 3-rju-dyl-fish oil (Fi sh OiL) 100-160-1,000 mg capsule (13 sources) Start: 02-04-2021 omega 3-dha-ep a-fish oil (Fish OiL) 100-160-1,000 mg capsule Take 1,200 mg by mouth. 02/04/2021 Active Start: 02-04-2021 omega 3-dha-ep a-fish oil (Fish OiL) 100-160-1,000 mg capsule Take 1,200 mg by mouth. 0 02/04/2021 Active ondansetron 4 mg oral tablet (8 sources) Serotonin-3 Receptor Antagonist Start: 02-02-2020 take 2 tablets by mouth twice daily Ondansetron Hcl (Zofran) 4 mg Tablet Active 2 TAB PO Twice daily February 02, 2020 12:00am Start: 11-11-2017 End: 11-11-2017 ondansetron (ZOFRAN-ODT) disintegrating tablet 4 mg Start: 11-09-2017 End: 11-11-2017 take 4 mg intravenous route every six hours as needed ondansetron (Zof ran) 4 MG tablet 1 (one) time each day at the same time. Active pantoprazole 40 mg delayed release oral tablet (20 sources) Proton Pump Inhibitor Start: 12-22-2023 pantoprazole (PROTON IX) 40 mg EC tablet Indications: Gastroesophageal reflux disease, unspecified whether esophagitis present TAKE 1 TABLET IN THE MORNING AND AT BEDTIME 180 tablet 3 12/22/2023 Active Start: 02-02-2020 End: 10-06-2023 pantoprazole (PROTONIX) 40 m g EC tablet Indications: Gastroesophageal reflux disease, unspecified whether esophagitis present TAKE 1 TABLET IN THE MORNING AND AT BEDTIME 180 tablet 3 12/22/2023 Active Start: 12-08-2019 take 1 tablet by veronica th twice daily Pantoprazole [address] Tab 40 mg = 1 tab(s), Oral, BID, Refills(s) 0 Start Date: 12/08/19 Status: Ordered Start: 11-09-2017 End: 11-11-2017 prochlorperazine 10 mg oral tablet (1 source) Phenothiazine prochlorperazine (Compazine) 10 MG tablet every 8 (eight) hours. Active promethazine hydrochloride 25 mg oral tablet (1 source) Phenothiazine take 1 tablet by mouth every six hours as needed for nausea promethazine (Phenergan) 25 MG tablet 1 tablet Oral every 6 hours as needed for nausea Active 24 hr propranolol hydrochloride 60 mg extended release oral capsule (4 sources) beta-Adrenergic Chery Start: End: 025 take 1 capsule by mouth once daily propranolol LA (Inderal LA) 60 MG 24 hr capsule Indications: Migraine without aura and without status migrainosus, not intractable (CMS/HCC) Take 1 capsule (60 mg) by mouth Daily Do not crush, chew, or split. 90 capsule 3 05/26/2024 05/21/2025 Active take 1 tablet by mouth in the mo rning propranoloL (INDERAL) 60 mg tablet Take 1 tablet (60 mg total) by mouth in the morning. Active QUEtiapine 50 mg oral tablet (20 sources) Atypical Antipsychotic Start: 11-09-2023 QUEtiap ine (SEROquel) 50 mg tablet Start: 08-19-2022 take 1 tablet by veronica th once daily QUEtiapine (SEROquel) 400 mg tablet Take 1 tablet (400 mg total) by mouth nightly. 08/19/2022 Active Start: 02-02-2020 Quetiapine (Se roquel Xr) 300 mg Tablet Extended Release 24 Hr Active 600 MG PO Daily at bedtime February 02, 2020 12:00am Start: 12-08-2019 take 50 mg by mouth once daily in the evening Seroquel 50 mg, Oral, qPM, Refills(s) 0 Start Date: 12/08/19 Status: Ordered Start: 11-09-2017 End: 11-11-2017 QUEtiapine (SERO quel) 25 mg tablet Take 1 tablet (25 mg total) by mouth as needed. 0 Active QUEtiapine (SERO QUEL) 25 MG tablet Take 200 mg by mouth nightly 0 Active take 300 mg by mouth once QUEtia pine (SEROQUEL) 200 MG tablet Indications: BIPOLAR Take 300 mg by mouth nightly TAKES 1 TABLET . Active sennosides, fpc 17.2 mg oral tablet (10 sources) Start: 11-15-2023 sennosides 17. 2 MG tablet 17.2 mg 11/15/2023 Active Start: 02-02-2020 take 2 tablets by mo uth once daily at bedtime Sennosides (Senna) 8.6 mg Tablet Active 17.2 MG PO Daily at bedtime February 02, 2020 12:00am Start: 12-08-2019 take 1 mg by mouth once daily senna 17.2 mg oral tablet mg tab(s), Oral, Daily, Refills(s) 0 Start Date: 12/08/19 Status: Ordered levothyroxine sodium 0.05 mg oral tablet (20 sources) l-Thyroxine Start: 05-08-2024 levothyroxine (SYNTHROID, LEVOTHROID) 50 MCG tablet Indications: Hypothyroidism, unspecified type take 1 tablet daily 90 tablet 05/08/2024 Active Start: 07-26-2023 End: 11-25-2023 levothyroxine (SYNTHROID, LE VOTHROID) 50 MCG tablet Indications: Hypothyroidism, unspecified type take 1 tablet daily 90 tablet 1 11/25/2023 Active Start: 02-04-2021 take 1.5 tablets by mouth once daily levothyroxine 50 mcg (0.05 mg) Tab 1.5 tab, Oral, Daily, # 30 tab(s), Refills(s) 0 Start Date: 02/04/21 Status: Ordered Start: 11-10-2017 End: 11-11-2017 Start: 09-28-2016 take 1 tablet by veronica th once daily at bedtime Levothyroxine (Synthroid) 25 mcg Tablet Active 25 MCG PO Daily at bedtime February 02, 2020 12:00am tiZANidine 4 mg oral tablet (3 sources) Central alpha-2 Adrenergic Agonist Start: 02-06-2020 take 4 mg by mouth once daily at bedtime Tizanidine Active 4 MG PO Daily at bedtime February 06, 2020 12:00am ubrogepant 100 mg oral tablet (9 sources) Start: 11-26-2023 End: 12-09-2023 Ubrogepant (Ubrelvy) 100 MG tablet Indications: Migraine without aura and without status migrainosus, not intractable (CMS/HCC) Ubrelvy 100 mg tablet 30 tablet 11 11/26/2023 Active valsartan 80 mg oral tablet (20 sources) Angiotensin 2 Receptor Chery Start: 05-30-2024 valsartan (DIOVAN) 80 mg tablet Indications: Essential hypertension TAKE 1 TABLET IN THE MORNING 90 tablet 05/30/2024 Active Start: 06-23-2023 End: 12-02-2023 valsartan (DIOVAN) 80 mg tab let Indications: Essential hypertension TAKE 1 TABLET IN THE MORNING 90 tablet 1 12/02/2023 Active Start: 02-04-2021 take 1 tablet by veronica th once daily valsartan 160 mg Tab 160 mg = 1 tab(s), Oral, Daily, Refills(s) 0 Start Date: 02/04/21 Status: Ordered 24 hr venlafaxine 150 mg extended release oral capsule (7 sources) Serotonin and Norepinephrine Reuptake Inhibitor Start: [...] every morning TAKES 3 TABLETS ReasonsDEPRESSION. Active vitamin b12 1 mg oral tablet (14 sources) Vitamin B12 Start: 05-10-2024 take 1 tablet by mouth once daily in the morning cyanocobalamin 1000 MCG tablet Indications: Cobalamin deficiency take 1 tablet by mouth every morning 90 tablet 1 05/10/2024 Active Start: 05-18-2023 End: 12-09-2023 take 1 tablet by mouth once daily in the morning cyanocobalamin 1000 MCG tablet Indications: Cobalamin deficiency take 1 tablet by mouth every morning 90 tablet 1 12/09/2023 Active Vitamin B12 1000 mcg Tab (6 sources) Start: 02-04-2021 take 1 tablet by mouth once daily Vitamin B12 1000 mcg Tab 1,000 mcg = 1 tab(s), Oral, Daily, # 30 tab(s), Refills(s) 0 Start Date: 02/04/21 Status: Ordered Vitamin D3 (6 sources) Start: 12-08-2019 Vitamin D3 5,0 00 International_Unit, Oral, Daily, Refills(s) 0 Start Date: 12/08/19 Status: Ordered warfarin sodium 5 mg oral tablet (20 sources) Vitamin K Antagonist Start: 12-08-2019 warfarin (COUMADIN) 5 mg tablet Indications: Lupus anticoagulant disorder (CMS-HCC) TAKE 1 TABLET IN THE EVENING 90 tablet 3 01/24/2024 Active Start: 11-11-2017 End: 11-11-2017 warfarin (COUMADIN) tablet 7 .5 mg Start: 11-10-2017 End: 11-10-2017 warfarin (COUMADIN) tablet 5 mg Start: 11-09-2017 End: 11-09-2017 warfarin (COUMADIN) tablet 2 .5 mg warfarin (Coumad in) 5 MG tablet 1 (one) time each day at the same time. Active warfarin (COUMAD IN) 7.5 MG tablet Take 7.5 mg by mouth daily 7. Mg t,w,f,s,s, and 10 mg and 0 Active Xdemvy 0.25 % solution (1 source) Start: 05-17-2024 take 1 drop(s) into the eye(s) twice daily Xdemvy 0.25 % solution INSTILL 1 DROP IN BOTH EYES TWICE DAILY FOR 6 WEEKS 05/17/2024 Active zolpidem tartrate 10 mg oral tablet (20 sources) gamma-Aminobutyr ic Acid-ergic Agonist Start: 12-08-2019 zolpidem (AMBIEN) 10 mg tablet 12/06/2023 Active zolpidem (AMBIEN ) 5 mg tablet Take 2 tablets (10 mg total) by mouth. 0 Active End: 11-11-2017 take 1 tablet [...] 11-09-2017 acetaminophen (TYLENOL) tabl et 975 mg acetaminophen 300 mg / butalbital 50 mg oral capsule (1 source) Barbiturate Start: 05-26-2024 End: 06-15-2024 take 1 capsule by mouth once Butalbital-Acetaminophen 50-300 MG capsule Indications: Migraine without aura and without status migrainosus, not intractable (CMS/HCC) Take 1 capsule by mouth every 12 (twelve) hours if needed (migraine) 60 capsule 2 05/26/2024 06/15/2024 Discontinued aluminum hydroxide 40 mg/ml / magnesium hydroxide 40 mg/ml / simethicone 4 mg/ml oral suspension (1 source) Start: 11-09-2017 End: 11-11-2017 take 30 mL by mouth every four hours as needed bisacodyl 10 mg rectal suppository (1 source) Stimulant Laxative Start: 11-09-2017 End: 11-11-2017 Budesonide-Formo terol Hfa 80 McG-4.5 McG/Actuation Aerosol Inhaler (1 [...] mg docusate sodium 50 mg / sennosides, fpc 8.6 mg oral tablet (5 sources) Start: [...] route every three hours as needed Kanaflex (3 sources) Start: 02-02-2020 End: 02-06-2020 take 4 mg by mouth once daily at bedtime Kanaflex Discontinued 4 MG PO Daily at bedtime February 01, 2020 11:00pm February 06, 2020 2:22pm Start: 02-02-2020 End: 02-06-2020 take 4 mg [...] End: 11-11-2017 take 2 tablets by mo ut once daily in the morning, then take 1 tablet by mouth, then take 2 tablets by mouth lamoTRIgine (LAMICTAL) 25 MG tablet Indications: BIPOLAR Take 50 mg by mouth every morning TAKES 2 TABLETS OF 25 MG TO EQUAL TOTAL OF 50 MG . Active take 1 tablet by veronica once daily in the morning, then take [...] Mg-28 Mg Capsule,Sprinkle,Ex t.Rel.24hr Pack (1 source) O-[id number]-[id number]-aspart ate Receptor Antagonist End: 10-18-2017 take 1 [...] Date Documented Da te Episodic/Chronic Abdominal pain (6 sources) Flank pain 12-08-2019 Episodic Acquired foot deformities (1 source) Acquired left hallux valgus; Translations: [Hallux valgus (acquired), left foot] Onset: 3 03-29-2023 Chronic Acute cerebrovascular disease (20 sources) Cerebrovascular accident; Translations: [Cerebral infarction, unspecified] Onset: 5 Resolved: 3 12-07-2019 Chronic Anxiety disorders (20 sources) Anxiety disorder, unspecified; Translations: [Panic disorder with agoraphobia] Onset: 8 05-20-2022 Chronic Asthma (20 sources) Asthma; Translations: [Mild intermittent asthma, uncomplicated] Onset: 6 11-09-2017 Chronic Blindness and vision defects (14 sources) Blindness AND/OR vision impairment level; Translations: [Blindness, one eye, unspecified eye] Onset: 6 05-20-2022 Chronic Cataract (1 source) Cataract; Translations: [Unspecified cataract] Onset: 3 07-26-2023 Chronic Chronic kidney disease (14 sources) Chronic kidney disease stage 3A ; Translations: [Stage 3a chronic kidney disease] Onset: 1 Resolved: 3 05-05-2023 Chronic Coagulation and hemorrhagic disorders (20 sources) Antiphospholipid syndrome; Translations: [Antiphospholipid syndrome] Onset: 3 09-27-2016 Chronic Coronary atherosclerosis and other heart disease (2 sources) Coronary arteriosclerosis; Translations: [Atherosclerotic heart disease of jamul coronary artery without angina pectoris] Onset: 7 09-27-2016 Chronic Deficiency and other anemia (1 source) Iron deficiency anemia due to blood loss; Translations: [Iron deficiency anemia secondary to blood loss (chronic)] 06-13-2024 Chronic Deficiency and other anemia (1 source) Deficiency and other anemia Onset: 4 Disorders of lipid metabolism (14 sources) Hyperlipidemia; Translations: [Hyperlipidemia, unspecified] Onset: 2 05-20-2022 Chronic Disorders of lipid metabolism (2 sources) Pure hypercholesterolemia, unspecified; Translations: [Pure hypercholesterolemia, unspecified] Onset: 8 Esophageal disorders (18 sources) Gastroesophageal reflux disease; Translations: [Gastro-esophageal reflux disease without esophagitis] Onset: 7 11-09-2017 Chronic Essential hypertension (20 sources) Hypertensive disorder; Translations: [Essential (primary) hypertension] Onset: 8 11-09-2017 Chronic Gastritis and duodenitis (14 sources) Chronic antral gastritis; Translations: [Unspecified chronic gastritis without bleeding] Onset: 7 06-02-2017 Chronic Genitourinary symptoms and ill-defined conditions (11 sources) Post-micturition incontinence ; Translations: [Urinary incontinence] 12-08-2019 Chronic Genitourinary symptoms and ill-defined conditions (20 sources) Preet hematuria; Translations: [History of urinary tract infection] 12-07-2019 Episodic Glaucoma (14 sources) Glaucoma; Translations: [Unspecified glaucoma] Onset: 0 05-20-2022 Chronic Headache; including migraine (20 sources) Migraine without aura, not intractable, without status migrainosus; Translations: [Migraine] Onset: 6 12-07-2019 Chronic Immunizations and screening for infectious disease (1 source) Encounter for screening for human papillomavirus (HPV); Translations: [ENC SCREENING HUMAN PAPILLOMAVIRUS] Onset: 2 Episodic Inflammation; infection of eye (except that caused by tuberculosis or sexually transmitteddisease) (7 sources) Optic neuritis; Translations: [Disorder of optic nerve] Onset: 3 12-07-2019 Chronic Mood disorders (20 sources) Bipolar disorder; Translations: [Bipolar disorder, unspecified] Onset: 7 11-09-2017 Chronic Nutritional deficiencies (1 source) Vitamin D deficiency; Translations: [Vitamin D deficiency, unspecified] Onset: 2 05-26-2024 Chronic Osteoarthritis (20 sources) Unilateral primary osteoarthritis, left hip; Translations: [Osteoarthritis of hip] Onset: 8 11-09-2017 Chronic Other aftercare (2 sources) Aftercare following joint replacement surgery; Translations: [Aftercare following joint replacement surgery] Onset: 8 Chronic Other circulatory disease (14 sources) Device in situ; Translations: [Presence of other vascular implants and grafts] Onset: 2 05-20-2022 Chronic Other circulatory disease (2 sources) Personal history of transient ischemic attack (TIA), and cerebral infarction without residual deficits; Translations: [Personal history of transient ischemic attack (TIA), and cerebral infarction without residual deficits] Onset: 8 Episodic Other connective tissue disease (2 sources) Presence of left artificial hip joint; Translations: [Presence of left artificial hip joint] Onset: 8 Chronic Other connective tissue disease (1 source) Hip joint prosthesis present; Translations: [Presence of left artificial hip joint] Onset: 2 05-26-2024 Chronic Other connective tissue disease (2 sources) Fibromyalgia; Translations: [Fibromyalgia] Onset: 8 Episodic Other connective tissue disease (6 sources) Fibromyalgia 12-07-2019 Episodic Other ear and sense organ disorders (1 source) Sensorineural hearing loss, bilateral; Translations: [Sensorineural hearing loss, bilateral] Onset: 3 03-29-2023 Chronic Other eye disorders (14 sources) Optic atrophy of right eye; 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, right eye] Onset: 6 05-20-2022 Chronic Other eye disorders (1 source) Ischemic optic neuropathy; Translations: [Ischemic optic neuropathy, unspecified eye] Onset: 3 07-26-2023 Chronic Other nervous system disorders (15 sources) Metabolic encephalopathy; Translations: [Metabolic encephalopathy] Onset: 7 09-27-2016 Chronic Other nervous system disorders (2 sources) Chronic pain; Translations: [Other chronic pain] Onset: 7 09-27-2016 Chronic Other nervous system disorders (1 source) Inattention; Translations: [Attention and concentration deficit] Onset: 3 03-29-2023 Chronic Other nervous system disorders (1 source) Difficulty walking; Translations: [Difficulty in walking, not elsewhere classified] Onset: 2 05-26-2024 Chronic Other nutritional; endocrine; and metabolic disorders (2 sources) Other obesity; Translations: [Other obesity] Onset: 8 Chronic Other nutritional; endocrine; and metabolic disorders (14 sources) Obese class I; Translations: [Obesity, unspecified] Onset: 9 05-20-2022 Chronic Other screening for suspected conditions (not mental disorders or infectious disease) (8 sources) Encounter for screening for malignant neoplasm of cervix; Translations: [Encounter for screening mammogram for malignant neoplasm of breast] Onset: 2 Episodic Other upper respiratory disease (14 sources) Chronic rhinitis; Translations: [Chronic rhinitis] Onset: 9 05-20-2022 Chronic Other upper respiratory disease (3 sources) Bleeding from nose; Translations: [Epistaxis] 01-31-2020 Episodic Phlebitis; thrombophlebitis and thromboembolism (4 sources) Chronic deep venous thrombosis of thigh; Translations: [Chronic embolism and thrombosis of unspecified deep veins of unspecified proximal lower extremity] Onset: 4 05-09-2024 Chronic Residual codes; unclassified (2 sources) Other insomnia; Translations: [Other insomnia] Onset: 8 Chronic Residual codes; unclassified (2 sources) Other specified health status; Translations: [Other specified health status] Onset: 8 Episodic Residual codes; unclassified (1 source) Family history of malignant neoplasm of other organs or systems; Translations: [FAM HX MALIG NEOPLASM OTH ORGN/SYS] Onset: 2 Episodic Spondylosis; intervertebral disc disorders; other back problems (20 sources) Cervical spondylosis; Translations: [Other spondylosis with radiculopathy, cervical region] Onset: 8 05-20-2022 Chronic Systemic lupus erythematosus and connective tissue disorders (14 sources) Systemic lupus erythematosus; Translations: [Systemic lupus erythematosus, unspecified] Onset: 3 05-20-2022 Chronic Thyroid disorders (20 sources) Hypothyroidism; Translations: [Hypothyroidism, unspecified] Onset: 7 Resolved: 2 11-09-2017 Chronic Transient cerebral ischemia (1 source) Transient cerebral ischemia; Translations: [Transient cerebral ischemic attack, unspecified] Onset: 3 07-26-2023 Chronic Unclassified (6 sources) Finding of sensation of bladder 12-08-2019 Unclassified (1 source) Systemic disorders of connective tissue in other diseases classified elsewhere; Translations: [Systemic disorders of connective tissue in other diseases classified elsewhere] Onset: 4 Urinary tract infections (6 sources) Postinfective urethral stricture of female 08-06-2020 Episodic Past or Other Problems Problem Classification Problem Date Documented Da te Episodic/Chronic Administrative/social admission (1 source) Problem related to life management difficulty; Translations: [Other problems related to life management difficulty] Onset: 10-24-2021 05-26-2024 Episodic Calculus of urinary tract (20 sources) Kidney stone; Translations: [Calculus of kidney] Onset: 05-20-2022 11-09-2017 Episodic Deficiency and other anemia (7 sources) Anemia; Translations: [Anemia, unspecified] Onset: 07-26-2023 12-07-2019 Episodic Deficiency and other anemia (15 sources) Iron deficiency anemia; Translations: [Iron deficiency anemia, unspecified] Onset: 04-12-2014 05-20-2022 Episodic Deficiency and other anemia (1 source) Iron deficiency anemia, unspecified; Translations: [Iron deficiency anemia, unspecified] Onset: 05-20-2022 Episodic Headache, including migraine (3 sources) Headache; Translations: [Chronic headache disorder] Onset: 09-27-2016 11-09-2017 Episodic Malaise and fatigue (1 source) Fatigue; Translations: [Other fatigue] Onset: 10-24-2021 05-26-2024 Episodic Mood disorders (15 sources) Other specified depressive episodes; Translations: [Mood disorders] Onset: 05-06-2023 Resolved: 05-09-2024 05-06-2023 Nutritional deficiencies (2 sources) Cobalamin deficiency; Translations: [Deficiency of other specified B group vitamins] Onset: 12-09-2023 12-09-2023 Episodic Other aftercare (15 sources) Polypharmacy ; Translations: [Other shelter (current) drug therapy] Onset: 09-27-2016 09-27-2016 Episodic Other aftercare (20 sources) Long-term current use of anticoagulant; Translations: [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] Onset: 11-24-2021 09-24-2023 Episodic Other aftercare (1 source) prison (current) use of 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; Translations: [prison (current) use of 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] Onset: 11-24-2021 Episodic Other aftercare (1 source) Patient encounter status; Translations: [Encounter for therapeutic drug level monitoring] Onset: 09-05-2013 07-26-2023 Episodic Other circulatory disease (2 sources) Elevated blood-pressure reading, without diagnosis of hypertension; Translations: [Elevated blood-pressure reading, without diagnosis of hypertension] Onset: 10-21-2017 Episodic Other circulatory disease (2 sources) History of cerebrovascular accident; Translations: [Personal history of transient ischemic attack (TIA), and cerebral infarction without residual deficits] Onset: 09-27-2016 09-27-2016 Episodic Other connective tissue disease (15 sources) Primary fibromyalgia syndrome; Translations: [Fibromyalgia] Onset: 05-20-2022 11-09-2017 Episodic Other connective tissue disease (1 source) Muscle weakness; Translations: [Muscle weakness (generalized)] Onset: 10-24-2021 05-26-2024 Episodic Other ear and sense organ disorders (14 sources) Bilateral tinnitus; Translations: [Tinnitus, bilateral] Onset: 03-29-2023 04-26-2023 Episodic Other ear and sense organ disorders (1 source) Tinnitus; Translations: [Tinnitus, unspecified ear] Onset: 03-29-2023 03-29-2023 Episodic Other endocrine disorders (13 sources) Syndrome of inappropriate vasopressin secretion; Translations: [Syndrome of inappropriate secretion of antidiuretic hormone] Onset: 05-20-2022 Resolved: 05-05-2023 05-05-2023 Chronic Other gastrointestinal disorders (1 source) Constipation; Translations: [Constipation, unspecified] Onset: 10-23-2021 05-26-2024 Episodic Other infections; including parasitic (14 sources) Personal history of other infectious and parasitic diseases; Translations: [History of 2019 novel coronavirus disease (COVID-19)] Onset: 10-29-2021 10-29-2021 Episodic Other injuries and conditions due to external causes (14 sources) Hematoma; Translations: [Other injury of unspecified body region, initial encounter] Onset: 10-06-2021 10-06-2021 Episodic Other injuries and conditions due to external causes (14 sources) History of fall; Translations: [History of falling] Onset: 10-23-2021 Resolved: 05-20-2022 05-20-2022 Episodic Other nervous system disorders (1 source) Disorder of brain; Translations: [Encephalopathy, unspecified] Resolved: 09-27-2016 09-27-2016 Chronic Other nervous system disorders (14 sources) Impaired cognition; Translations: [Other symptoms and signs involving cognitive functions and awareness] Onset: 04-29-2021 05-20-2022 Episodic Other nervous system disorders (1 source) Ataxia; Translations: [Ataxia, unspecified] Onset: 03-29-2023 03-29-2023 Episodic Other nervous system disorders (1 source) Finding related to ability to move; Translations: [Other abnormalities of gait and mobility] Onset: 10-28-2021 05-26-2024 Episodic Phlebitis; thrombophlebitis and thromboembolism (20 sources) Deep venous thrombosis; Translations: [Personal history of other venous thrombosis and embolism] Onset: 09-05-2013 11-09-2017 Episodic Residual codes; unclassified (2 sources) Other specified personal risk factors, not elsewhere classified; Translations: [Other specified personal risk factors, not elsewhere classified] Onset: 10-21-2017 Episodic Residual codes; unclassified (2 sources) Insomnia, unspecified; Translations: [Insomnia, unspecified] Onset: 10-21-2017 Episodic Residual codes; unclassified (15 sources) Altered mental status; Translations: [Altered mental status, unspecified] Onset: 12-07-2021 09-27-2016 Episodic Residual codes; unclassified (14 sources) Delirium; Translations: [Disorientation, unspecified] Onset: 10-29-2021 10-29-2021 Episodic Residual codes; unclassified (1 source) History of cardiac catheterization; Translations: [Other specified postprocedural states] Onset: 09-13-1998 07-26-2023 Episodic Residual codes; unclassified (1 source) Insomnia; Translations: [Insomnia, unspecified] Onset: 10-23-2021 05-26-2024 Episodic Spondylosis; intervertebral disc disorders; other back problems (20 sources) Cervico-occipital neuralgia; Translations: [Occipital neuralgia] Onset: 03-15-2018 05-20-2022 Episodic Substance-related disorders (2 sources) Misuse of prescription only drugs; Translations: [Other psychoactive substance use, unspecified, uncomplicated] Onset: 07-26-2023 09-27-2016 Episodic Superficial injury; contusion (1 source) Contusion of left thigh; Translations: [Contusion of left thigh, initial encounter] Onset: 10-28-2021 05-26-2024 Episodic Unclassified (2 sources) Personal history of other medical treatment; Translations: [H/O: blood transfusion] Onset: 09-13-2012 11-09-2017 Episodic Viral infection (1 source) Disease caused by 2019-nCoV; Translations: [COVID-19] Onset: 10-23-2021 05-26-2024 Episodic Results Test Name Value Interpretation Reference Range Facility Consent Formson 06-19-2024 Consent Forms [id number]# 1.00OTGTIFF [facility] MAGR Intraoperative Recordon 06-19-2024 MAGR Intraoperative Record MAGR Intra-Op Record Summary Primary Physician: LINA SCHWAB MD Finalized Date/Time: 06/19/24 13:11:09 Pt. Name: NOEMI BRAND /Sex: 1960 FEMALE Med Rec #: [id number] Physician: LINA SCHWAB MD Financial #: [id number] Pt. Type: D Room/Bed: / Admit/Disch: 06/16/24 06:50:17 - 06/16/24 08:28:00 Institution: Case Times MAGR Entry 1 Patient In Room Time 06/16/24 07:59:00 Out Room Time 06/16/24 08:22:00 Anesthesia Start Time 06/16/24 08:02:00 Stop Time 06/16/24 08:21:00 Surgery Start Time 06/16/24 08:02:00 Stop Time 06/16/24 08:21:00 Last Modified By: Ev Bailey RN 06/16/24 08:22:08 Case Attendance MAGR Entry 1 Entry 2 Entry 3 Case Attendee Troy RNSocorro Diane RN Heintschel, Sara L RT (R) Role Performed Track Coach Track Coach Ware Server Time In 06/16/24 07:59:00 06/16/24 07:59:00 06/16/24 07:59:00 Time Out 06/16/24 08:22:00 06/16/24 08:22:00 06/16/24 08:22:00 Procedure Radiofrequency Radiofrequency Radiofrequency Ablation(Bilateral) Ablation(Bilateral) Ablation(Bilateral) Last Modified By: Ev Bailey RN, Diane RN Kokinda, Diane RN 06/16/24 08:22:09 06/16/24 08:22:09 06/16/24 08:22:09 Entry 4 Entry 5 Entry 6 Case Attendee Iveth Anderson RT (R) Love Winkler THOMAS F MD CT LEATHER STRETCHER Role Performed Ware Server Scrub Personnel Surgeon - Primary Time In 06/16/24 07:59:00 06/16/24 07:59:00 06/16/24 07:59:00 Time Out 06/16/24 08:22:00 06/16/24 08:22:00 06/16/24 08:22:00 Procedure Radiofrequency Radiofrequency Radiofrequency Ablation(Bilateral) Ablation(Bilateral) Ablation(Bilateral) Last Modified By: Ev Bailey RN, Diane RN Kokinda, Diane RN 06/16/24 08:22:09 06/16/24 08:22:09 06/16/24 08:22:09 Surgical Procedures MAGR Pre-Care Text: A.20 Verifies operative procedure, surgical site, and laterality Im.150 Develops individualized plan of care Entry 1 Procedure Radiofrequency Ablation Primary Procedure Yes Primary Surgeon LINA SCHWAB MD Modifiers Bilateral Surgeon Comment BILATERAL LUMBAR Start 06/16/24 08:02:00 RADIOFREQUENCY ABLATION L4-L5, L5-S1 Stop 06/16/24 08:21:00 Anesthesia Type Local Surgical Service Pain Management Wound Class Clean Technique Details Closure Technique N/A Entire procedure No was performed via laparoscope or robotic assistance Last Modified By: Ev Bailey RN 06/16/24 08:22:11 Post-Care Text: O.730 The patient's care is consistent with the individualized perioperative plan of care General Case Data MAGR Pre-Care Text: A.350.1 Classifies surgical wound Entry 1 Case Information OR MAGR OR 02 Case Level None Wound Class Clean Specialty Pain Management ASA Class N/A Diagnosis Preop Diagnosis LUMBAR PAIN Postop Same As Preop Yes Postop Diagnosis LUMBAR PAIN Blunt or No Is the procedure No penetrating injury considered occured prior to Emergent/Urgent? the start of the procedure: Last Modified By: Ev Bailey RN 06/16/24 07:58:53 Post-Care Text: O.760 Patient receives consistent and comparable care regardless of the setting Time Out MAGR Entry 1 Procedure(s) Radiofrequency Ablation(Bilateral) Time Out Checklist Verifications Team Introductions Yes Confirmed Identity, Yes Completed Procedure, Incision Site, and Consent(s) Presence of Yes Site Verification, Yes Necessary Site Marking, Site Procedural Marking Equipment, Devices, Alternative, and/or and Implants Site Marking Verified Exception in Accordance with Facility Policy Anesthesia Review Antibiotic Received n/a All Anesthesia Case does not involve Within an Concerns Addressed an anesthesia Appropriate Time professional Interval Prior to Surgical Incision Surgeon Review Anticipated Blood Yes Expected Case Yes Loss Risk Addressed Duration Addressed Critical and Yes Non-Routine Steps to be Performed Addressed Nurse Review Equipment Yes Fire Risk Yes Checks/Concerns Assessment Addressed Completed and Interventions Performed Diagnostic and Yes Sterilization n/a Radiological Test Concerns Addressed Results Displayed are Appropriate and Labeled Other Concerns n/a Addressed Time Out Troy RN, [place] Time Out Time 06/16/24 08:01:00 Participants Ev Bailey RN, Che Downing RT (R), Iveth Anderson RT (R) CT, Love Winkler LEATHER STRETCHER, LINA SCHWAB MD Last Modified By: Ev Bailey RN 06/16/24 08:03:36 Patient Positioning MAGR Pre-Care Text: A.280 Identifies baseline musculoskeletal status Im.40 Positions the patient Im.80 Applies safety devices Entry 1 Procedure Radiofrequency Body Position Prone Ablation(Bilateral) Left Arm Position Resting at Side Right Arm Position Resting at Side Left Leg Position Extended Right Leg Position Extended Feet Uncrossed? Yes Press Points Checked Yes Positioning Device Pillow, Safety Strap Outcome Me (more content not included)... Normal [facility] Inpatient Patient Summaryon 06-16-2024 Inpatient Patient Summary [place] [id number] Patient Discharge Instructions Name: NOEMI BRAND : 1960 Patient Address: [address] [place] [address] Primary Care Provider: Name: Provider, None Phone: After you are discharged if you find you have any questions, please, call [phone] ext [phone] to speak to a nurse. Discharge Diagnosis: Prescription Information: If you have been given a prescription for narcotics, seek immediate medical attention if you have any difficulty breathing or any sudden status changes such as confusion and sleepiness. If you or anyone you know is experiencing suicidal thoughts, mental health, alcohol and/or drug addiction problems; contact the [facility] 05/04 Crisis Hotline -Text 4HOPE to 323981. If you received any narcotics, sedation, or any other medication that causes drowsiness for the next 24 hours, unless otherwise directed: ? Do not drive a car. ? Do not operate machinery such as power tools, lawn mowers, drills, sewing machines, or stoves ? Avoid alcoholic beverages and drugs for allergies, nerves, or sleep ? Do not make important personal or business decisions or sign any legal documents [facility] would like to thank you for allowing us to assist you with your healthcare needs. The following includes patient education materials and information regarding your injury/illness. NOEMI BRANDE has been given the following list of follow-up instructions, prescriptions, and patient education materials: Follow-up Instructions Medications During the course of your visit, your medication list was updated with the most current information. The details of those changes are reflected below: Medications to Continue That Have Not Changed Other Medications acetaminophen-butalb ital (acetaminophen-butal bital 300 mg-50 mg oral capsule) 1 cap(s) Oral; as needed as needed for headache. aspirin (Aspirin 81 Chewtab) 1 tab(s) Oral (given by mouth) every day. atorvastatin (Lipitor) 80 Milligram Oral (given by mouth) every day. baclofen (baclofen 10 mg oral tablet) 1 tab(s) Oral (given by mouth) 4 times a day. buPROPion (buPROPion 300 mg/24 hours (XL) oral tablet, extended release) 1 tab(s) Oral (given by mouth) every day. cholecalciferol (Vitamin D3 125 mcg (5000 intl units) oral tablet, disintegrating) 1 tab(s) Oral (given by mouth) every day. famotidine (famotidine 40 mg oral tablet) 1 tab(s) Oral (given by mouth) every day. ferrous sulfate (ferrous sulfate 325 mg Tab) 325 Milligram Oral (given by mouth) 2 times per day. folic acid (folic acid 1 mg oral tablet) 1 tab(s) Oral (given by mouth) every day. gabapentin (Neurontin 300 mg oral capsule) 1 tab(s) Oral (given by mouth) 4 times a day. galcanezumab (Emgality Prefilled Pen 120 mg/mL subcutaneous solution) 120 Milligram Subcutaneous (under the skin) every 4 weeks. levothyroxine (levothyroxine 50 mcg (0.05 mg) oral tablet) 1 tab(s) Oral (given by mouth) every day. metoclopramide (Reglan 10 mg oral tablet) 1 tab(s) Oral TID before meals. montelukast (Singulair 10 mg oral tablet) 1 tab(s) Oral (given by mouth) once a day (in the evening). naltrexone 2mg qhs. omega-3 polyunsaturated fatty acids (Fish Oil) 2400mg daily. pantoprazole (Protonix 40 mg oral delayed release tablet) 1 tab(s) Oral (given by mouth) 2 times per day. QUEtiapine (Seroquel XR 400 mg oral tablet, extended release) 1 tab(s) Oral (given by mouth) At bedtime. senna (senna 17.2 mg oral tablet) 1 tab(s) Oral (given by mouth) once a day (at bedtime) as needed for constipation. Template Non-Formulary (Compund medication with Biotin) 1 tab(s) Oral (given by mouth) At bedtime. Template Non-Formulary (Compund medication with Biotin) 2 tab(s) Oral (given by mouth) every day. valsartan (valsartan 80 mg oral tablet) 1 tab(s) Oral (given by mouth) every day. warfarin (Coumadin) 5 Milligram every day. zolpidem (Ambien 10 mg oral tablet) 1 tab(s) Oral (given by mouth) once a day (at bedtime) as needed as needed for insomnia. It is important to always keep an active list of medications available so that you can share with other providers and manage your medications appropriately. As an additional courtesy, we are also providing you with your final active medications list that you can keep with you. acetaminophen-butalb ital (acetaminophen-butal bital 300 mg-50 mg oral capsule) 1 cap(s) Oral; as needed as needed for headache. aspirin (Aspirin 81 Chewtab) 1 tab(s) Oral (given by mouth) every day. atorvastatin (Lipitor) 80 Milligram Oral (given by mouth) every day. baclofen (baclofen 10 mg oral tablet) 1 tab(s) Oral (given by mouth) 4 times a day. buPROPion (buPROPion 300 mg/24 hours (XL) oral tablet, extended release) 1 tab(s) Oral (given by mouth) every day. cholecalciferol (Vitamin D3 125 mcg (5000 intl units) oral tablet, disintegrating) (more content not included)... [facility] MAGR Preoperative Recordon 1 MAGR Preoperative Record MAGR Pre-Op Record Summary Primary Physician: LINA SCHWAB MD Finalized Date/Time: 06/16/24 08:28:57 Pt. Name: NOEMI BRAND /Sex: 1960 FEMALE Med Rec #: [id number] Physician: LINA SCHWAB MD Financial #: [id number] Pt. Type: D Room/Bed: / Admit/Disch: 06/16/24 06:50:17 - 06/16/24 08:28:00 Institution: Pre-Op Case Times MAGR Pre-Care Text: Patient will be optimally prepared for surgery. Patient is free from s/s of injury. Provide information to patient/family related to plan of care. Verify patient allergies. Confirm identity and verify consent before the operative or invasive procedure. Entry 1 Patient Arrival Time 06/16/24 06:59:00 Preop Departure 06/16/24 07:52:00 Last Modified By: Carly Mccall RN 06/16/24 08:28:56 Post-Care Text: Patient is prepared mentally and physically and is ready for surgery. The patient remains free from s/s of injury. Patient/family express understanding of plan of care and participate in decisions affecting his or her perioperrative plan of care. Allergies documented appropriately. Patient identifiers and consent correct. General Comments: Pt arrives to w ambulatory. PT denies cp, sob, cough or flu like symptoms. Pt denies pacemaker/defibillat or or sleep apnea. Finalized By: Carly Mccall RN Document Signatures Signed By: Carly Mccall RN 06/16/24 08:28 [facility] Patient Handouton 06-16-2024 Patient Handout [facility] Progress Note - Provideron 1 Progress Note - Provider [id number]# 1.00OTGTIFF [facility] POCT Protime / INRon 024 INR Coag (PPP) [Relative time] 2.8 {INR} Abnormal 0.8 - 1.2 [facility] Interpretation and review of laboratory results Abnormal [facility] Coding Summaryon 06-05-2024 Coding Summary HTMLBase 64 HjhhchpjYWq2rAx+PGhl YWQ+GT4XDXUqP35chYXy lS9bZ4HDNTbNXbveBDDJ AAmATaQtsvEqBA3imUWf ZXJu IC8+KM1xBPIeHqqwbAIs i0E6eYJ2I89ovo4tFXlv xOO4ZEYcMhNnokmdb5sz zOg0RHhgRuytPlHw PZZteI15HSJ2jN03Du07 wNFpqTPse8asiNf5UsYi SNCyDKH8oMrhEZjsv2Ek JKZhF22pjQEmx7O1 IGNvbGxhcHNlOyBlbXB0 dQ3uIDguspltb9fpxrfh Nzj6ro79fSWlc5B9lRH0 Y2EadrX2JBCxjDFt EqwzwFIMnR5bjisjb8vo laeuSzOqAHAcWPq9SPw4 VDWnoXfrFuPzRN96GCF9 ZVLsznKbD1QgMGDx uOniRrI4y6X5Zs9RA2CL FkiqQ7BOZBJSWXhneEV+ CN81cc06A9DkGyryBkd4 DHPmYAQ9kQJ0jH0r GHYjUPdsd6U2zOX6Q9Fv bxRikw3az2xoDJJkXBro I76dyZOgo1F2MGBgzHI4 DLNgaLysOzTepO77 Oyc+NDGtlBagz3LiJnng g9gke5urvWk4ShofKVXx nvKgyFloKVC8g3GgYc7w MEFxyJK6gJP5xF8m XxIkBlF5PSgwD710NgKm gOFcFdoiA57fA3EheKL+ MQWxKnf0GUQoeXcwOL4c J0MeKJDhvhgqkDBc yLylST9rIBIjnomrVQAp kE5sWRMfO8p8JuTmXkE8 LLmcU6CpYOKvxykzDd21 hB5mQqHdIxP3ZYqi I0MegxL0RCDbvZPeTAvm NTQ2K59wz9R3KZWgBTJd IAB6xPA0hL3nkFytvhwx bGVmdDsgdmVydGlj TCoaGZhnJ993BMEynLdp PkNvZGluZyBEYXRlOiAg MDkvMjMvMjAyNDwvdGQ+ XLXsVBF5iOtnWVBf wFQyOUrjUz4eoBsaoWiq ID2eHZWbbkvfJUSgrU8a MBWjwOThiZyrDG1vUZNu dzlgi305BbMdIYT5 DPXxoOQuC6KvhL3aTlDq BXIkXVFqO4YszGBmHJdd I775YWwvBzC4EMZpmrTi G4JnPOByrJnlOzV8 e4J9Rc3Ib0EiworyD3Er qEArDmXyRnetITc7X8Qc PjwvdHI+RR72RWUjTS83 OPa1CIE6uEukLDlv XCUpU5CglU1iAeZrRBFc ZGRkOyc+PHRhYmxlIHdp ZHRoPScxMDAlJyBzdHls NB0hJw1jIQYpRUDn tDfvqTAoCdLqy1uxNTTa OIfxZD5txHamV7OolZP6 QXYel9f0Sl60J26aI4Sj dXA+JHIppLV7qHZ8 pN8pUaBlXvR6CMykW302 QsSglLDzCpdjs4ekw9fu jXr1KaS0AWHthnUcsTle MTP5r9XfHt04H33z IHdpZHRoPSIxNSUiIHZh zBgyvs9ygO5kGf7+PGNv pHB0aFQ8nL0pJkZvPvS0 WWvdN860SoVwaAHz Yrswa6azc9wchQg8LrVw WOWbmiNjvMlnAFL9z3St Fn08O3RsjPomw5PxHuu6 wi80wUBdx1M8kUW5 S9KbFYNkylqnxEGpkWub PK8wWPZmpqhjNZPtuX6r WYJjV9f6VfQbFzJ5KMmp A8QgdsP1IQJxgSCe LHZdyDJEkJ2hvihhu5qm utuuJuNxMNAkCUb1GEl0 ROHfdHolUePeACR6NqZ8 TUV1jGLugR9grEir omqzhH2rKjn+TXH8tORe dMFLNS4jKsvqhAH+PHRk ERD7cMncURdfMCWkaV3v QVZbQ3u7SkYzGsU2 VYyaY5FknkS1RXEnqSWh ZJDevYIEoJ7acqinx6rh ecafZrVuQRHeXYk2EQy1 LWFsaWduOiBsZWZ0 BaR4RKP7oAWixQ0dsTdo oxutwY2qXpi+QmlydGgg ZII5SWb2P0HsRrp7WCDp aHgeYF3jsVZwWLnn Ga9kzBelkVljZN8kQJYn czkoq218SaFdy3yhKCYw dDOkZSmgITS6V98ye1M8 TAUqDENuZTT2nVZ6 rT2ozMuktlhesNKxiPis mlLjaPhsTGdhRLxaO841 PRRxdYddGoOuVLi9R2Mg Ctv1WBNsjDerWA7n zWOhMKziCy3veAjmxPez DR0qZYVlsfwcz008GeNd k2fyOPDvyZHqDPhcPWL1 X91pd3A7JECaVUBn YJG5cKK8wQ9kcUjilghy bGVmdDsgdmVydGljYWwt HGrhI993HYWzuLnnNbBa zUe2X0YpJeo2QVLu jUfpEX9rtMZsQPclMh0w gNmmjTxrUN5hEQLiajgf c815AhGvv2xvZCAqgZAl XVrjVMP0J29mt5V4 PKCePUMmKDL3bIC3sO7r bGlnbjogbGVmdDsgdmVy nEwjERhfYIrpP104EAQp cDsnPlBhdGllbnQg SGmdXOh9L3DuLscenUF+ GZ41EFIoUL98oDOgkRKz l4yowNm3HiFhFUBcYVP4 lWotYPdhl8InPRNk M92oxSLpo3W8WNOfoBmk nWEuToOkiLT9vE0xOLmw nmzls7vgyogpDrrhk6lk qk75gG40T02iLMgy ZHRoPSIzMCUiIHZhbGln bz4jsN7gPk4+PGNvbCB3 xJJ5qR6wCQDzIcK3SRpe H120OfXtdEHyXduc n7tcb5cbhTv0CyH2NEYi taXvpSkmPLF0q3QbVq80 S97iYIvbVEHhHSHqQPBv TRBlbXcmhb4oaC0e Ii8+JXWxqOM6vRJ9yD7h RdZlUcJ1BMaxY088KoIa uLPsBrfkV48oH5JsoTS+ CVRaObe8YAOnlXsz KZ0fiIMfBFgwFf6uMLN6 KzBjBeOqKHdeP6CgSZZa rhfykkwfjQL1VQPnXEIq jY80Qv9jmRijUSYd nHIPsH6bvonlk3rxffgz ImDvDOJsZPg3VAz0SILd lZidLxJrAWI5SlB4TII2 iYHhdB6wdJdhifzu jM4tC7BkGEObtiwyKi15 jN6hXvVsZuD2BOniKur+ XPmRTEplK7UOSEjlNT9F BZWZGG68KP12bQDh j0E0tSA0L1NsELStxfpi abcswOB0HKYlUQAdlI03 mPHjOUfbAh0or8N5r981 NIYdHZMngT44Xh8w vZekJVSzvLBQmO4xcfzi f0aqhtnwAnVdXNGeZOg2 LBs5EXPakCeePaHpFXP1 RaE3JKZ6rGEgiR3s mZuohgyxqN3xBen+MDkv ZyGnSRj0JAxbnTA+PHRk UGS0zZlzYObjEESpcC4z DVErP5w6MiOwLxE2 MZakR9DbEJYxbtkwYr37 yQ6oPiFzSgI6FRjaR6St wpE2PRBvhSEaTQlgNSK4 M26no3X4JEGyIFTx PUE8cPV1qF2pdHmrfdlg bGVmdDsgdmVydGljYWwt UVxqV462LZGqoYqxDxIo YCxwIVGaKJ54BC60 eNVpv5Y5zLW7L4SkNTGb npdlymzftEY2DIJbOIYb jF33cKMfAIvoSo3kz7L7 y834PPGwIHIqnB40 Xi5vjQowVRTxxNKWyU4c udzlm2elibteJjYrONAa QQa0OHm7OFGdgYocCbYb XIS6TmA3ATO3hJKw mF2kxAwbhmydwR9tFhh+ YfUVADgWYG73RQ41jDTb m7I9mTG1Y1PuGFFfuycs fnjlqPE6ZBDuWBRn tR07jNBmBIjaYa2ji3G8 e982OZMiKWBjzW12Rf5v qLdzVWGcsXWLkV2uvwfl c5xzcyfvOaIrHCAy JKs7TXk0GOSrmEroGnNu RJL0NoK9YPR0bPXjxA3a bOlchqskkI4oBtu+T1A8 J7JrNoqpqIF+PC90 ZCZbBC41xBHrqZRdl2rn lKc3NsHhUKVlTDS7nRec KKpyn6RjYHEeF35dtLTg z3B8VFGibLhruPQc IvFguSD6dJ0lNSafxuon k7dbcohrDvadb3uemw82 hI00N30oXUbqJTKxIPAj XUMaGICooIuufo2i kV9qXb6+AHPlpQS5cNO3 kD2cNxSpNsY6ETfvF555 YuTemOIqRqawi5idq2fw lAu2YfGjLXTzfqQv cQqmUBK1e5SqPv52B68s IHdpZHRoPSIyMCUiIHZh eXrqtp4qiX5pPo4+PC9j q6avjt50rF05iOT+ IEWbFDB0qHitIYfbBNBj cG2nUBeiTpF1CNRgXdPk eR03zKPlVEoaNw7ywEko nPqlJK0hEZDleulx e275GoApq5tiFAOvhBNl MKmiLIS1M05ol0U7WGQh SWAyELQ2ySB7rW9hlNca bjogbGVmdDsgdmVy nLlyIXroLKfdV683ZQLv lTnaBjSiuURxH9dqjiEH VQ3bJsiifWG+PHRkIHN0 zKglHZptCBRkeM1k KGRzB1y1ZnYzGzQ3ENaq R5FukuN8ALOexZSrUUKj hJBBlY5wrgkdt5msvbxp SgTxVOWeCJg1SLb8 QJUshUqdQwEaXCY5ZoR6 CUW6yIIxvA8mvSodurcr vF8mWcw+RklOOjwvdGQ+ BEQsUDV4vKnzZIik TYVreR9gTAVvD0a5XeDf HoK1UXhuX7WkuqZ0NAUq fFGsAEHuwADGoI5tcjkl j0otqivbKnEgILOg CTy4JIf9TDPzhYgzJrCr PTO1JdO5HNM6uHJnbM3w mHqggdilhC8gCyj+TVJO OjwvdGQ+PHRkIHN0 oQveBFktUFSshC8gCHYo T5b7AgUoChO8SRflU4Er rrA2IAXoeMCeYWJtmORM jW6rdegnp9ffsaxb SkJvYTUqPXx3SXu3IHSy dFcyVgIeOIN8JcO0KQW7 cDRboN0zzRytaxtwlJ4v Oyc+RZT7RTW5EK37 PC57O6HgZpvzuMRwhAT+ PHRhYmxlIHdpZHRoPScx JHNnUsBugSbaOQ6tSe6n ZGVyLWNvbGxhcHNl OiB (more content not included)... [facility] Coding Summaryon 05-23-2024 Coding Summary HTMLBase 64 GpvvnjjqKDo4rSt+PGhl YWQ+XQ2EKAHjT29buHMs oC7eY4ZCLFbFWpqxEMED WAgMNqVgsrSkSM6fwPTd ZXJu IC8+WS5nRCBtSlhnzDQi a6X8qPV8A48uhj0xSVps wJL5IIRvTzLlhhocc4ar fIo4VZqqCucfZeFx AQLywZ71SQP1hR07Gw08 oXIilEMsj4rtxIu8KaOp ACDuYQJ0pCgoRMano1Bw OCBwE07alVYrt2Y0 IGNvbGxhcHNlOyBlbXB0 kG1sOMwcmbqlf5atwuko Nst3ph45zIHsi4E2lIS0 G3BjviD8WUTrtDXb InhzvQSVhU2ypybej3sy rktyWoWpGUZbLVb8UZy9 DGYmuFqeMcWrYB56XRF7 KYUtoaRmQ6QbYNOj fJiwUkH5i6Q6Nn1GD8VY PovvL9NSEGTWXHqilEV+ AH75lr83N5GbAikoZno6 NMAjFHU1eTC4mF5e WUNsAIqey3U2vHD8Q4Bs haMjds0pf4gbSVFlOEss K98kmETwc3R0WTBrkEB8 SFOxbDsbQrNgsO85 Oyc+NBJnyUxbp3DrVxnj s5xnv9qdvZx7QobdDZXq uvLubEouZHH0j6NiIa5y SBHizZQ5sOD5rO1z SnUmQtF4IMkaD543VvGh aUZmGvueN47fA2LoaYA+ JIZbPjq7HOZmcTzdBJ4v Y5AhPTJejlddzAEn jZraRI3mMGXmssouEBNc xY0sPVCxX3z3GwZgMhJ2 INckG9JzLBYmuqwkPi73 yK3sLxJoPbQ1CNmh D3CagqF6MQGnbVRjCRnx HPS1I64bi8H6XMOeDGBo COB7pEA0xG8utDbxviou bGVmdDsgdmVydGlj XWsiAHzuD239GELxgTih PkNvZGluZyBEYXRlOiAg MDkvMTAvMjAyNDwvdGQ+ KLEfIWK9iLzlDSBn sZHmRRtjJs9npNraoKnb OH4uEGCqsdasTTOxpR1s UBEulISmmFciFV2bDRTt ugrxa074DdNxQEF0 YPHmzBGfS8VdfW1dInZl YAVsKODsS7ZrbKRuKVxl S812KQoxZaN4ELBifkZc M2MmUPJavRmpJcA7 x1J7Vk1Gu3XlanulC3Al gYMhBzYpGakdMAn5E3Xj PjwvdHI+VT85ZWZqBS14 QBv1XAL3qCghRBwi LZQtI9QmkT0jZjIhAOIx ZGRkOyc+PHRhYmxlIHdp ZHRoPScxMDAlJyBzdHls DG4bJl6tAMOaEMUt iEiasZTyRpKax0dsJNSg WClyHH8baJdmA9JpdVR0 FFPae6x8Xa36H93mE7Ka dXA+AAIpsSR1xOF2 xE5jUqNcQjJ9LNbyT903 JpHloBYbWdekg1zit7pe iEa9LqW1CTNxaeYkpBix BJB8u9WwGy94Y25f IHdpZHRoPSIxNSUiIHZh aIoyzg5twO5oAd7+PGNv yAD8nFG3dJ0gRhXdRbI9 LQvnJ728GcQwmEEq Qjbuk1boz4qgaZg9TgZt TZEgiqTppJleBOJ5x8Qc Pv81Y9NnpFcig9XkHfy7 kr20jBXuj0Z5wIA6 Z0DgBDKzytwisSPljFwi NV1bOAVpeifnZLUtvX4p HXEcB3k4MyTqBdQ1TIvf U0MtllM5JQVwpRCo GWQuzBYXlI2ixoywa6ol wknpIjTlAULnAEb4FNy4 NPJscZqxMtFoRKB1VwW3 MOG0nOPpbI5pyNsb yuvvwF2nReg+PQM8aJHc gKLVPT7tVwzowOG+PHRk SNE9kYdpUVjoKWKziQ3y BSPcU4j4IdEnRfK6 GPvvD2XnltB7BYNjbWZy OCTheLFUwU1hjqrie3ji jiriGdRwOVVmGDj5MFb8 LWFsaWduOiBsZWZ0 TyO4TDL9hHVtoX7apEsf dljjcB2aXjb+QmlydGgg XWX1SFk2Z1RyBnb4HLBp wTkeKR7noBAvPBfd Sm2zyLbidExwBY3bBMLv ysylh814KoVjx0vcSDGf iESkDFzdVPU6X84cw0I0 SYUaAKRjQGW5lOG2 nC0tqUcepvtupXDqkJlk hdLaeTzdLNnvMXsyA254 QNEjyWnbZtBfYHs9Z3Dm Oyq0BJNnjYheVT7a xOPqVDzfXb0ihXzgvOnx LL5uPYKvfvuer042YtPm y5isOXUuvEPcEObhGCT1 X59ps4C0AFEkFOWw SMO8rFR3zS6ogFtqtnbm bGVmdDsgdmVydGljYWwt PLemQ898RVPxfLwtZxNm vIm3M4TzJot8ANKu zUpvYV4kiTWyANjbBq4y sApzyNaoAL5oLEIrzbhf w828XlOzs7ofKYWxgQHj HTomFVD1H15di2R8 BDDpZKFfKLC9zMX3jY3f bGlnbjogbGVmdDsgdmVy gQhdTYksKRmgU937KAIm cDsnPlBhdGllbnQg WExlAOz1M5NrMdwhhEZ+ XS16XMFsBO21xNKxqABg w5zvzSi2ZxNnTBRfXCC4 xOghFXmtm6NeVRHq I69gyDSbc2G1GRFckOwz fTGlLeIssOH0tB5oQVpe ocqzd1sowmxdAntyu0ng wa21dI05V19yCLut ZHRoPSIzMCUiIHZhbGln na9hnY6nZv7+PGNvbCB3 dVA3pK5eJKXvFqQ1AMrf Y009EmZucRYiXnph w7hir7abfBe5YbX2DKLr qmObgNusZFI5x5ZpCv95 W34pLQeyGCAcEEZrOIDy MKFpuLtkwh7snT3k Ii8+BWYzrFZ6zHR1iJ8p IyLuBuT7UAyyY812IiLz zXKwPxyrX63xE0DdwQD+ KODeRit2MXEyrGlw MR3hrVPmTKnoXr9yBVB2 JcItEjAwJRrmY6SnEWQj qgfbvqzvaWJ1IDVxYHOl aL83Xs5hxZeySKDb jIKSxS1wpzcjv2tclidk SeWoTFEyKCl8VHm0AXBu tDstJqBcJTK3FdT2DOY6 xMJgrM8nhImsfzqn rM6hT6HvIUXdtcmsVq83 nN6uQzQhCbM0WWfgOge+ JRbNOEehF0UEVAphXH5O JLARLM14KU34gMXy q8Q2sSH5I8VmEJFpbslf cdsnmXR5MZTtJPCrmQ68 gUQdYEwsZv3hb2Y9e000 VNMfOCAknU57Hf6m cMrjKKXhjMCBqN8ovqyv w3nfrndmDhHuBQNcZNp0 QFz7LFBzjMjiTlNjSQM9 McB9VVM7cHMcvI2g zJapwhpskF8dSmn+MDkv YkIaVFr1QLgttVN+PHRk RVJ9bLatWQwyUZNokK2y SGLzR0n4AcAjBvQ8 RPysL9VlPJTjgedmIz37 dE2nYpEdYbY6JTfmW0Qq nlT2AHWigECmLAdkVYO9 E36wc2D2KRKjCNAr WUY1vXF3jP1ouRpsosgw bGVmdDsgdmVydGljYWwt UXglL790FGViaImeNzPq ODtpHFNpDQ87VT29 kCDoa2W3pPT6W0IlKUTi ggatgvpdpTA4PLOfUZDz dA14cUPyDGyjRq4xr7I9 b599BMTrUDBfxP50 Io7dpQlhQVBjsRYJqJ5u awovc7xjzjmmBpFbJBPm UQz6KIo5RETgfYtrUvGy PMI6AnW1CNL8dRLu vX2lvNvckmtubW5oOaf+ KtMZGVoXZH70TL07dYUw n3Y1bOV4V5OvFQMpmyht itxlmLX3CFOtEZOv lU43iRDfWCtyAi6db3Z7 u121FGMmHWGhmQ03Ni6i sSgbHPEojKZNuQ9wftrm m6sasybcZuWqOBCk OZp6QFb7ICGnkJqhKcCx YTL3CfJ9SJU4gSVbpF8q eVdnxkytwC7qRrt+RGF5 ILS4azsantx7W5Ni PjwvdHI+EV43EQZhQA30 aOPwmIQak5safWg2ZeMe HBEoQEH1qWlhRDncn4Ex UCVnW25ouUXpr8Y2 IGNvbGxhcHNlOyBlbXB0 hO0iXUrmvndvj3aqynyw Vztls8ebzw89lH94R23i IHdpZHRoPSIzMCUi HJRrfLxnju6zlM9aNg0+ HUKdxEM3nBE7dE0fOdQm UtN4RIueE549QpZmpQXm Cdzqr7dvt5btbLs1 IjIwJSIgdmFsaWduPSJ0 t2DbWz54C44zUAoeAZAa UVQtRZIeIQUhrTfvoi2s lW1lAt1+WZ2nv3bg ig84iP06lVL+PHRkIHN0 vZdoRWaoRHZyaQ7cOJer VlB1LMQlYwOrkN81eGHs UWhaXk6wsLipxHan VZ2yNDQprbugg104WyRd w9knZFJryHPtSRiwNGO9 T42lu2Y1GRAjUEDuQWO5 gDO3xT6ydEsfdqib bGVmdDsgdmVydGljYWwt WRocB305LSDiuSxfQiHx dSSaN2gxqdDZDP0xZkid dGQ+OSRhMUQ7jHri HUxzMCEeuZ5tIOZpT8x1 HdSsZiC8ZOzpC2IaxaZ0 AHGxtMUfALKthLBAiT7a rilns1mtxmihTiMs RIGlLKl8ETe0KZIylGek VxCqIWN7WqX7LVR7iRHc dS5ohQxtgojloH5iFah+ RklOOjwvdGQ+PHRk NUI1oZxiGHquYIFrvL1e ITPwN9b3ZzNbKjY2BEjo E2OpldM1ZFQbrTNsEAYz oJRMqU5ruazbd3ml wpzmNyWlGAGbNKc4CZg3 JKVscXpzDhHaUNL1BsW0 KNW5yYEuhJ0jjZvkudqs nH3jFfn+TVJOOjwv dGQ+JNAvUDU4hQfjWIqt NUAwnJ6fUCCrP0t8FiJa UsV6CApsT8TxgoB8TRYt aCZwRFGswQNKcJ4o yznxw9vvvejaLdQuRHQd TKk0YPr1LZBqwLviUuWa OPY9KqB5FHE0rLBkrX7d kCqpmxtmuM1dGlm+ PPD9BNH9IX55VX40J6Zw PjwvdGFibGU+PHRhYmxl IHdpZHRoPScxMDAlJyBz oOmkSM3sMk3cHZHz LWN (more content not included)... [facility] Progress Note - Provideron 0 05-23-2024 Progress Note - Provider [id number] [facility] 05-16-2024 Consent Forms [id number]# [facility] Summaryon 05-12-2024 Inpatient Patient Summary [place] [id number] Patient Discharge Instructions Name: NOEMI BRAND : 1960 Patient Address: [address] [place] [address] Primary Care Provider: Name: Provider, None Phone: After you are discharged if you find you have any questions, please, call [phone] ext [phone] to speak to a nurse. Discharge Diagnosis: Prescription Information: If you have been given a prescription for narcotics, seek immediate medical attention if you have any difficulty breathing or any sudden status changes such as confusion and sleepiness. If you or anyone you know is experiencing suicidal thoughts, mental health, alcohol and/or drug addiction problems; contact the [facility] 05/04 Crisis Hotline -Text 4HPVU jv 983293. If you received any narcotics, sedation, or any other medication that causes drowsiness for the next 24 hours, unless otherwise directed: ? Do not drive a car. ? Do not operate machinery such as power tools, lawn mowers, drills, sewing machines, or stoves ? Avoid alcoholic beverages and drugs for allergies, nerves, or sleep ? Do not make important personal or business decisions or sign any legal documents [facility] would like to thank you for allowing us to assist you with your healthcare needs. The following includes patient education materials and information regarding your injury/illness. NOEMI BRAND has been given the following list of follow-up instructions, prescriptions, and patient education materials: Follow-up Instructions Medications During the course of your visit, your medication list was updated with the most current information. The details of those changes are reflected below: Medications to Continue That Have Not Changed Other Medications acetaminophen-butalb ital (acetaminophen-butal bital 300 mg-50 mg oral capsule) 1 cap(s) Oral; as needed as needed for headache. aspirin (Aspirin 81 Chewtab) 1 tab(s) Oral (given by mouth) every day. atorvastatin (Lipitor) 80 Milligram Oral (given by mouth) every day. baclofen (baclofen 10 mg oral tablet) 1 tab(s) Oral (given by mouth) 4 times a day. buPROPion (buPROPion 300 mg/24 hours (XL) oral tablet, extended release) 1 tab(s) Oral (given by mouth) every day. cholecalciferol (Vitamin D3 125 mcg (5000 intl units) oral tablet, disintegrating) 1 tab(s) Oral (given by mouth) every day. famotidine (famotidine 40 mg oral tablet) 1 tab(s) Oral (given by mouth) every day. ferrous sulfate (ferrous sulfate 325 mg Tab) 325 Milligram Oral (given by mouth) 2 times per day. folic acid (folic acid 1 mg oral tablet) 1 tab(s) Oral (given by mouth) every day. gabapentin (Neurontin 300 mg oral capsule) 1 tab(s) Oral (given by mouth) 4 times a day. galcanezumab (Emgality Prefilled Pen 120 mg/mL subcutaneous solution) 120 Milligram Subcutaneous (under the skin) every 4 weeks. levothyroxine (levothyroxine 50 mcg (0.05 mg) oral tablet) 1 tab(s) Oral (given by mouth) every day. metoclopramide (Reglan 10 mg oral tablet) 1 tab(s) Oral TID before meals. montelukast (Singulair 10 mg oral tablet) 1 tab(s) Oral (given by mouth) once a day (in the evening). naltrexone 2mg qhs. omega-3 polyunsaturated fatty acids (Fish Oil) 2400mg daily. pantoprazole (Protonix 40 mg oral delayed release tablet) 1 tab(s) Oral (given by mouth) 2 times per day. QUEtiapine (Seroquel XR 400 mg oral tablet, extended release) 1 tab(s) Oral (given by mouth) At bedtime. senna (senna 17.2 mg oral tablet) 1 tab(s) Oral (given by mouth) once a day (at bedtime) as needed for constipation. Template Non-Formulary (Compund medication with Biotin) 1 tab(s) Oral (given by mouth) At bedtime. Template Non-Formulary (Compund medication with Biotin) 2 tab(s) Oral (given by mouth) every day. valsartan (valsartan 80 mg oral tablet) 1 tab(s) Oral (given by mouth) every day. warfarin (Coumadin) 5 Milligram every day. zolpidem (Ambien 10 mg oral tablet) 1 tab(s) Oral (given by mouth) once a day (at bedtime) as needed as needed for insomnia. It is important to always keep an active list of medications available so that you can share with other providers and manage your medications appropriately. As an additional courtesy, we are also providing you with your final active medications list that you can keep with you. acetaminophen-butalb ital (acetaminophen-butal bital 300 mg-50 mg oral capsule) 1 cap(s) Oral; as needed as needed for headache. aspirin (Aspirin 81 Chewtab) 1 tab(s) Oral (given by mouth) every day. atorvastatin (Lipitor) 80 Milligram Oral (given by mouth) every day. baclofen (baclofen 10 mg oral tablet) 1 tab(s) Oral (given by mouth) 4 times a day. buPROPion (buPROPion 300 mg/24 hours (XL) oral tablet, extended release) 1 tab(s) Oral (given by mouth) every day. cholecalciferol (Vitamin D3 125 mcg (5000 intl units) oral tablet, disintegrating) (more content not included)... Normal [facility] MAGR Intraoperative Recordon 05-12-2024 MAGR Intraoperative Record MAGR Intra-Op Record Summary Primary Physician: LINA SCHWAB MD Finalized Date/Time: 05/12/24 11:55:42 Pt. Name: CATHIE NOEMI CYNDI Reddy/Sex: 1960 FEMALE Med Rec #: [id number] Physician: LINA SCHWAB MD Financial #: [id number] Pt. Type: D Room/Bed: / Admit/Disch: 05/12/24 10:58:18 - Institution: Case Times MAGR Entry 1 Patient In Room Time 05/12/24 11:50:00 Out Room Time 05/12/24 11:56:00 Anesthesia Start Time 05/12/24 11:52:00 Stop Time 05/12/24 11:55:00 Surgery Start Time 05/12/24 11:52:00 Stop Time 05/12/24 11:55:00 Last Modified By: Luz Marina Huber RN 05/12/24 11:55:03 Case Attendance MAGR Entry 1 Entry 2 Entry 3 Case Attendee Troy FARRIS, Luz Marina Perez RN, Sarah E RT (R) M CT Role Performed Track Coach Track Coach Ware Server Time In 05/12/24 11:50:00 05/12/24 11:50:00 05/12/24 11:50:00 Time Out 05/12/24 11:56:00 05/12/24 11:56:00 05/12/24 11:56:00 Procedure EPIDURAL STEROID INJ EPIDURAL STEROID INJ EPIDURAL STEROID INJ TRANSFORAMINAL TRANSFORAMINAL TRANSFORAMINAL LUMB(Bilateral) LUMB(Bilateral) LUMB(Bilateral) Last Modified By: Luz Marina Huber RN, Erica RN Baumer, Erica RN 05/12/24 11:55:04 05/12/24 11:55:04 05/12/24 11:55:04 Entry 4 Entry 5 Entry 6 Case Attendee Comment, Jillian NELSON (Kayla Duenas LEATHER STRETCHER, LINA Rosas CST, MD CT CSFA Role Performed Ware Server Scrub Personnel Surgeon - Primary Time In 05/12/24 11:50:00 05/12/24 11:50:00 05/12/24 11:50:00 Time Out 05/12/24 11:56:00 05/12/24 11:56:00 05/12/24 11:56:00 Procedure EPIDURAL STEROID INJ EPIDURAL STEROID INJ EPIDURAL STEROID INJ TRANSFORAMINAL TRANSFORAMINAL TRANSFORAMINAL LUMB(Bilateral) LUMB(Bilateral) LUMB(Bilateral) Last Modified By: Luz Marina Huber RN, Erica RN Baumer, Erica RN 05/12/24 11:55:38 05/12/24 11:55:04 05/12/24 11:55:04 Surgical Procedures MAGR Pre-Care Text: A.20 Verifies operative procedure, surgical site, and laterality Im.150 Develops individualized plan of care Entry 1 Procedure EPIDURAL STEROID INJ Primary Procedure Yes TRANSFORAMINAL LUMBAR Primary Surgeon LINA SCHWAB MD Modifiers Bilateral Surgeon Comment BILATERAL T7-8 Start 05/12/24 11:52:00 TRANSFORAMINAL EPIDURAL STEROID INJECTION Stop 05/12/24 11:55:00 Anesthesia Type Local Surgical Service Pain Management Wound Class Clean Technique Details Closure Technique N/A Entire procedure No was performed via laparoscope or robotic assistance Last Modified By: Luz Marina Huber RN 05/12/24 11:55:05 Post-Care Text: O.730 The patient's care is consistent with the individualized perioperative plan of care General Case Data MAGR Pre-Care Text: A.350.1 Classifies surgical wound Entry 1 Case Information OR MAGR OR 02 Case Level None Wound Class Clean Specialty Pain Management ASA Class 2 Diagnosis Preop Diagnosis LUMBAR NEURITIS Postop Same As Preop Yes Postop Diagnosis LUMBAR NEURITIS Blunt or No Is the procedure No penetrating injury considered occured prior to Emergent/Urgent? the start of the procedure: Last Modified By: Luz Marina Huber RN 05/12/24 11:55:18 Post-Care Text: O.760 Patient receives consistent and comparable care regardless of the setting Time Out MAGR Entry 1 Procedure(s) EPIDURAL STEROID INJ TRANSFORAMINAL LUMB(Bilateral) Time Out Checklist Verifications Team Introductions Yes Confirmed Identity, Yes Completed Procedure, Incision Site, and Consent(s) Presence of Yes Site Verification, Yes Necessary Site Marking, Site Procedural Marking Equipment, Devices, Alternative, and/or and Implants Site Marking Verified Exception in Accordance with Facility Policy Anesthesia Review Antibiotic Received n/a All Anesthesia Case does not involve Within an Concerns Addressed an anesthesia Appropriate Time professional Interval Prior to Surgical Incision Surgeon Review Anticipated Blood No Expected Case No Loss Risk Addressed Duration Addressed Critical and No Non-Routine Steps to be Performed Addressed Nurse Review Equipment Yes Fire Risk Yes Checks/Concerns Assessment Addressed Completed and Interventions Performed Diagnostic and n/a Sterilization n/a Radiological Test Concerns Addressed Results Displayed are Appropriate and Labeled Other Concerns n/a Addressed Time Out AntonioNoemi RT (R) M Time Out Time 05/12/24 11:51:[address], Troy RN, Henrique Quintanilla LEATHER STRETCHER, Lashawn LEATHER STRETCHER CSFA, Luz Marina Huber RN, LINA SCHWAB MD Last Modified By: Luz Marina Huber RN 05/12/24 11:52:09 Patient Positioning MAGR Pre-Care Text: A.280 Identifies baseline musculoskeletal status Im.40 Positions the patient Im.80 Applies safety devices Entry 1 Procedure EPIDURAL STEROID INJ Body Position Prone TRANSFORAMINAL LUMB(Bilateral) Left Arm Position Resting at Side Right Arm Position Resting at Side Left Leg Position Extended Right Leg Positi (more content not included)... [facility] MAGR Preoperative Record MAGR Pre-Op Record Summary Primary Physician: LINA SCHWAB MD Finalized Date/Time: 05/12/24 11:57:45 Pt. Name: NOEMI BRAND/Sex: 1960 FEMALE Med Rec #: [id number] Physician: LINA SCHWAB MD Financial #: [id number] Pt. Type: D Room/Bed: / Admit/Disch: 05/12/24 10:58:18 - Institution: Pre-Op Case Times MAGR Pre-Care Text: Patient will be optimally prepared for surgery. Patient is free from s/s of injury. Provide information to patient/family related to plan of care. Verify patient allergies. Confirm identity and verify consent before the operative or invasive procedure. Entry 1 Patient Arrival Time 05/12/24 11:10:00 Preop Departure 05/12/24 11:45:00 Last Modified By: Maribeth Luna RN 05/12/24 11:57:41 Post-Care Text: Patient is prepared mentally and physically and is ready for surgery. The patient remains free from s/s of injury. Patient/family express understanding of plan of care and participate in decisions affecting his or her perioperrative plan of care. Allergies documented appropriately. Patient identifiers and consent correct. General Comments: Pt arrives to [facility]. Pt denies sob,cp,cough and flu like symptoms. Pt also denies pacemaker, defibrillator and sleep apnea. Pt is not a diabetic Finalized By: Maribeth Luna RN Document Signatures Signed By: Maribeth Luna RN 05/12/24 11:57 [facility] Patient Handouton 05-12-2024 Patient Handout [facility] Coding Summaryon 05-07-2024 Coding Summary HTMLBase 64 AkukymnfMXi4uNd+PGhl YWQ+EU7UEMXmE76utDGy aU3bZ0EYFMhYHhvwYNBZ YMzKUqVuidDqOW5teGSy ZXJu IC8+KR8yPUShYrzegJAd b1K3nHA5T89ayv7tOKnz zHB9NOUvKeXmlllly1ml vPn4AYqwYfkcGvIf PGBliX32MYP7qN50Kl39 tFLboMWkj8foaSr2LjGq CUIwDPQ6kUdlMCsgz4Vb LKQkO88siWTqg1J9 IGNvbGxhcHNlOyBlbXB0 sG4pMFlyscrrp3jwxyon Rbn7yr72aGJch4T1gES9 S2QolgK2SEYuhNHa YgqjhWMKxX9sobfud5sl wgueCfLsWBZvZTx0SEm2 JVXurNvzPuTkMG77QUL8 GESajhXdS7IdRUHq iVmtFoM8n0J4Cs8FZ3WC KpovI1ECXALCPFufrVG+ WT80jr48L7MaWbnwNem1 YCWbPAN2uTY1gA0p DQLxREzti8W7qTO9C1Mf bhSigf8xr2vkINCrZRrk B07kdYNjx8X6UHBjtFU6 GILysQgrMpRrtD66 Oyc+CJMhwAkze7HmVwms l3esr5dqtMk8QjbnVTFf mrOllHxzYEM6o2EkOp6x NYCxvCL3wXU2xH2o IlUgBkD5DWxnV345FvNv wZGsEcigC14wV3HknLX+ IUUiAzg9HFWyaQtqWG9e S7RoXKXzmmhaaNOc fKanVL6uFAUavlevOIVl bF1sXPYcH9r5TeQvLgE9 BHxjB7FvMCQowvdoJo06 xW3dVsBwSdE2DLqj C7OogaL0FZOqoOKiRPna YJB4W95lb3Y1TYOdYRHr CJR8xAT2tQ8jiQustdih bGVmdDsgdmVydGlj BEyyXHtnQ191PDKxrYpk PkNvZGluZyBEYXRlOiAg MDgvMjUvMjAyNDwvdGQ+ ZVUiOJH1tFibFJAy pVTzHWgwGp3muYplhBcm DW2lOVMcnntsVFRyaO6v KCTgkQLvaZqyCM1yTZDb lkaer312BbNqAGT9 WXTtwLBlX4QpxV1iJuVu YHXyGKNjP0FrbFExUSnf D049JOkjFaL0WAXpfuMs B6JuBNGpaPlzXgB6 b0V8Om7Fv7UzfyejH6Sf bHCrFnNsExqhRRo8C3Bb PjwvdHI+HL43SZFcOO57 QXy9BFJ8dNfgYCus LDYnL0ZdbF1bLcNwEXTa ZGRkOyc+PHRhYmxlIHdp ZHRoPScxMDAlJyBzdHls SI6gHi1zXPWnZPFc wIjiuFIqMoPyz3xbNOCh OJtrLC5veCwfF2YytCQ2 NAZxy0u1Bz33V55aC1Dd dXA+OJZfyQO6hDG3 qE4pBbRlKrJ2MFzuS813 ZdBglDJuTyuit7mdw3lo oNs1TzZ9BSDjxbSenTsd FCX4p3WzBa30P62d IHdpZHRoPSIxNSUiIHZh fRijol4fdR5wOp4+PGNv tSG2yTF2cA8xKxDjAvS1 EQqjW792CaLifNGg Bdrwz6jet6xphVd7RjQm QERbdkAsrCvrVRJ9x2Hp Bh01Z7DtiDccb6ReOsg8 or37tQVfk1D3wHI9 W8DaINAvfgoxfSXouIal AW2fXZRcjmkmGPDtcE2p AIGxG0l3DgQiExK0JQpg C5EfnbJ1WDPygTVf CHThdAELuM8vdgxtx1fl volxKkPcXIPgUQa2WGq2 LOTogMlqXrUeBFB8IpN4 LIX3yWEmsC6qzUie idmhzW7aWxe+KYU0xIAc oTEGIH8wVccjvYI+PHRk BVM5sPcwSSdoFBCsyD2r BJPlX8e9QiMkEiL8 AVivT2KzjiQ1CUYjsBBl VYQfnRWHpJ8khnaui7hl cugrKtZnJOKbWHo0ORk0 LWFsaWduOiBsZWZ0 AoX5MVG5bBSkeK8jhVvp itzvyZ1eAvp+QmlydGgg DUH7FOn2X2UgYls4SMXz sUucOJ2jhKEsSToc Uc5qiCvjjMlwEL8rBNEy wacuh916IzIsi2qpNVCb aSQhAPmsCPZ7X62yn4M0 ISCkZXFsTYE5fFI2 fW7oyKyerzewnRAgcMlv mrFwfVftQRzrWJxzE215 FGNehFfxTfDtXMo1B6Rp Opv2GYRxdJvnWD0y cJVhXLroCg9mqYntpVpj OW9eMIDumgksf590QtSe y5iuSTYyeDYsXHylZKU1 O79tz8X0UXDeXDGx UTA4rTZ2iP4fjLxtwkct bGVmdDsgdmVydGljYWwt JRlxO303GZGrmLuyJdTt dSk3A3OqXaw5BHGv wXybKN5ynTUpAWzjPe8y aOelbIcwIU2gWYVbffth q745RcEiq6qsMSKivHFp XKalTQP1S19id8S2 ODXoETRcQGM1yNR4dN2h bGlnbjogbGVmdDsgdmVy nAzmNKyzRKcvZ641VFUd cDsnPlBhdGllbnQg CQdiUQk3G2OdLbcjyKS+ FX38UBRwKD16hCZhyVPo f0vvgJh3FvWoWWWeHCE2 bZblEMaog3OxSTLf Z96fwIPov1N0CIYwaDkh pMIqZqVssXR5tV0kZUpa ryhij6fpwomqJyusj2np aj80fQ66M08vKGgg ZHRoPSIzMCUiIHZhbGln nk1wgI5zFx9+PGNvbCB3 wCT0lS9yLPUaFyI8NHnm B156ZzCrzSKpSvby q8eem8rsoHv0GuE4FAQm rbHhyDokCMY7w5YaXi85 G96tMSfnWITxBVPiDLLq FMRasYoqhc5eiA0i Ii8+WSYqrZA2xDN6dU5y XpGcBhB6OSvrF093DrKp fYLuHwwsD43dL9ZpgFV+ ZYTyTvt6LEBpzMyb VF5otPEcFWndBo2nUXJ8 XpGoAcVkWPbmS9SmRZYg spvvknyaqZV3AJUiUIEd lM54Oh6lvNqpDWFf uHMQpX8yosrye5fuumat HrIdXSUhPXs0QPv4PDPm hBzgLpAzRQK7QoU8NDS5 rBXziZ3mkKlirrbz mK7yS0XuAYSliuywYu20 tP5gJnOnDcP9BSjyLjo+ MPxPMPhrN1XCKPmwUE8I AEJGDH58OA93tYVx f1H2yRT8F8SnHLSvofwe qauzvUT3MBJvQFBbxE48 rZBqCLclRa6tf0I6j718 PMFkKIYxkF13Cj1d sGgdGYKebUXAqK7pqxvm o5hsrnmuDlWqZUSaMUi1 IHv8IHNqpIfoAtCtYQH4 IjL6CQS2aSTayD0b uLszozuuxN8iGax+MDkv NiEcNIo0EOfunMG+PHRk KBQ5bHlcYBehAKVghN9p BWHsG2u1GhSlXmN1 CKvlY6EcMNTmkdnkWn12 uV3oQaXeFbD3GQpzL5Hf xnJ7BZGtpDJzSGrxPNM4 F56yu5W0BCUwVLAt ABF4kAG2iW1gnKwgmvns bGVmdDsgdmVydGljYWwt FDtlR077ITGldIyuVxFu IDwiBKSyRY24QZ87 dJPpp9Y4bYY0T7OgVJMd opbhtstrdVZ5KCRyTJTe mP32aILpRCsqIk7ng8B9 r817VOYvOXScwK65 Xd1epCqkZETylMMVjF2u hgjnq2nltdotYbYuTDEe WNx9FEm0EWCqcOtzTsCh RIX0CbF8PNR4vVHc sT4rmOacktgvjH3cZdv+ QkPNPNkMLB38FG23hUDp d0N6fBV9L9HtMTDhxxso jrhmiSC0FHHrGXJi uF35qQEwWYfkGt4ha9O9 c323PICwSLCnxO33Pz5c oBsnPJEpnRIOcR5ddafe b5hjttyoVaDrXFPl TIr7LFz4HTKpjEufHgNu DTN4OaE4LSW6mRAobK2c hEavsowkrC9jPxl+T1A8 R3XfDlowkEF+PC90 BACgNO93aJBqeLMhr6tn gIa9SbRkUOPuLSS9dUmt BQvuy0NbIMMvM59pbJJk b3G1JWXjbZyiaXNq NjGkhVD5qI4lJIjvqtkk e7dtcjauWbsla4mcyi64 eU12U38tGRygMQUqDEJe YGSmYWZddBwnfp1s pT1cNi4+HTTgsSP8tUM3 bL9sAnNmCdJ1OVvfC733 JiXomPUnTszkm0qml8tf dKs0RoWmNXVwvhQv pYonEWI1t3KfXo60J26l IHdpZHRoPSIyMCUiIHZh mAilpi7rzO3aOt3+PC9j f2twut49lS64hCW+ NVZeVVW6aFwxZYykNOIi qC2oBLjxZnI4QPZuVwTv pS77oTMyPYnrAs8apWmr cLciMN0aZYOezren o742BfKns2hqMWNykOPq QMywTAC1P49ub9J6YSUk KNKrUAE6cTJ2pZ3muJrp bjogbGVmdDsgdmVy kFfqLVggCBroX142VKZw iEvxYvEafCWlI4xtvySD BT6fWkcsqZL+PHRkIHN0 aFldCSjnACPevQ5g MKGlZ8d4ZkEvLeA3LOux W9RprxX9NWUdjJVfVUJm wVGHjE7yysymc0xxtgww EgNxFUHlQPf2GYa7 OCMvaMsxJzCsDIM2GuF1 CMP3kFMcsE7mpLezaixf wF6zZhj+RklOOjwvdGQ+ MKJyETY3xElaBDor UPTndD3bJRXiQ1y5PtLy InK1HAjyF1HwwjK7JREy aZYbIVZmyANHzM0myhdj a1yprsskBjKaHTXj LMg8FQa9UXKvdYchLwFz ZRV9AhH7AKR5zLUnjN8z nKdfogxxwP4wXku+TVJO OjwvdGQ+PHRkIHN0 jGnoYDymCYPviD3cCINg R8n3XrNqGgW7APnmZ9Wh sgE7FHHbsVYcKUQerERK sG5ehnaqd7jadpim SwPgQJJeDVy1OJf7WVSw yPnpEsQfEXT3JhY3NRE0 hGKehR1veVekuwkdbL8a Oyc+AIY2LXS7KC45 OZ19T6DyFdgriVEsiDO+ PHRhYmxlIHdpZHRoPScx EHGhEyKgiCjtDS2jAj6a ZGVyLWNvbGxhcHNl OiB (more content not included)... [facility] Coding Summaryon 04-18-2024 Coding Summary HTMLBase 64 TzohysqkHMw3eFg+PGhl YWQ+EJ5PZHSeO52xoNTt yP2iQ7MJYLoLIcrcAYDM NBkIPhSdrxWjXG3vfNJj ZXJu IC8+QZ2uJNTrErdsnNKb b6Y1sKX1F37oqk9vJHzt rVA2BCPhLwFjdgmib5vh pNc9OZsfDbykTzZo KQUsbD05WDB4dM03Oj65 bCJwbHTbi6hwgYc0RkRe IJAeFSW3mHsbVClps4Td XHNeZ14djVQlw9W8 IGNvbGxhcHNlOyBlbXB0 sG0tBMozoyqcw1kpacie Vsp6tt37aWPge4G7qYD0 Z6RwfzP2DTDxbPWs ZmzeoTBEpI6lvlwii8qf obfsXuGtMCZpCRx1DFi5 ZNSlpLxnZiDfNX33ZFY7 KQVmpdSpO6CnABCj eIylYnW0h9T2Dh3RJ2DZ YgweE4QGKTYRFMwjaBG+ OC10ps51U6JiOfpxWho4 DDXcAQL1jTQ0rD4j PENmVPpoa5G5qHC7D6Gf voBowz5cf2xdMIJpRWmv I42zrRPug1K7RLDgrZI6 TVCguPrjPePzaN31 Oyc+WWZjyZcsj6UkCuck z8ikd2poxNa4MtjsTEHp tkWjoNpcSTJ8c2GhKa5x MMIgoVZ4dUM2hV8j OtTiZrS8HKfrH316DjMp tXHvAygyZ98eY8MbxFD+ TLTeDkk7XMGtpEawGO9k K9QaOEKvzldyfBXk rXjfOF6jBJHmjokwGOZq oO2yNCGpI1m1WoZzWvK7 YLbmE0NgHWWcsgwoMy73 dI5jMrUwEsJ1AQtx P6JobuN0XWIkvUSoEDap DIP4E12sr5S6RWJsWCFv MIV1kXM9xB7ksBduvqab bGVmdDsgdmVydGlj KKmxOXqlX948EHBhlVnd PkNvZGluZyBEYXRlOiAg MDgvMDYvMjAyNDwvdGQ+ ALLjHUG5sMksJJQy mXIkMLemTi4tkOsjfCgm RJ1sLFAetyzxOEJupY4f QNKhjGTzdNodIB8oWSSh swbsc629WuBgPOF4 CLQkdJOnL2WqiS7bGeVt JTWiHDLcR2TbrBQtCCdv F152OGhkEoU8MRWixhZr D6OxOKNzeXchAgN4 x9L7Pp8Xp1JpudniM1Ck hMQqAwKcGhbcWWr0W5Tc PjwvdHI+UW28IAJaKR56 FHj4VAA4nBtdNVcx SQCnJ4IoiU2oCdTnKUIq ZGRkOyc+PHRhYmxlIHdp ZHRoPScxMDAlJyBzdHls NW7bCn7nNBQlQFKt pYjsbDXsLmSeq4ttSKEj DOxbDK7joTpnJ3GyeVM1 OEBnj7x7Bb73Y98wI5Cx dXA+XDZhrGO4kPE1 oP1cIjHyClP5WDcjC904 QoQftZMuScoxz5coo6fu aCf1OeH8SROpdmHxtHzj LIJ0z6EtBl93W96h IHdpZHRoPSIxNSUiIHZh iCrlmn0ygT4uDy0+PGNv mJB1eIA3wR6jAlTeXoJ4 HJuvH702MkOzvYPe Ztyeg4gks7szfHe4XxIu IBSctfXsnTrzVUH8t8Sm Bs61Y5DazHbno8WcVuv3 ml83pXHaw4K5tSW3 T1AqOPFyghglfEQuhGzt ZJ4gUAGkzeffHRGueC7s COPnE1y4KyRlZcR7OVej G6ZobnU2QVXosDGp FQSrvTUWnC9takycf3up lokdHjQbGGBwMYu1TUa7 HAPwwLhjWaCeYMJ4IyR1 NST3gRJjqH3jzSbo vadqtO4yBaf+BFW2bNTw lKCXJF0qRixcdRI+PHRk SIV1dPabQKelMIRgkF7a JLOmC5g1XnThEdQ4 GYlfS1KoorO6LAZpcVPz DYHitUAXjR4owsliv7os nsfaJsHuJIDcBWo2GHv2 LWFsaWduOiBsZWZ0 ZqA7KIC5cZIgoM3coGya bgnoaT0fWdk+QmlydGgg PKN5AYm3V3DyHvk9XLPk yErwRB4aqAGtGPbu Gf3jqLdbkUkiYX1uDRBg zdxej803AzCuf8fmCDPj dOAuCYidSDY4D13uu4D4 MZOgSQMkHHM7uGA8 eU0ifSoprozbrFSkwFvi bkLxxWucNOliOTwjT401 PHLxcSzpUpRfOXk3V4Pq Qso7HBIsvRhxYW3o zKHjQIvmOo0fpCgrmVsx SX0nHYPnshqfn267OoBd t8deXUTzdIZlBJroTBM6 Z66nn4R8XJLkDTYw UZI8bKE4uK4mfQoyaukc bGVmdDsgdmVydGljYWwt LXllY639SJNahNsfAfMh rNt9P8OuMrr6TLYc qDicBC3beQOsDZvcNx3z nWgacXlyTN3aFHJkgrnw s265PjVkk3riHMLdvDKh IJyjUUS7R05hr3Z6 ESEuQFIsHYR1hJX6sU8k bGlnbjogbGVmdDsgdmVy oNvdFHicNEciS593ZTZq cDsnPlBhdGllbnQg YPofXEg6U2YeHfiyiZC+ UQ42XESyIA45pRLurSQn j6ujtNo4EyTmATXsQMR2 tHknRKhhw7HsEJGi K09mzZJtf2K7CRCxiNdc fSSgKjYzxSS5mV2iMPxf ermrg8xohyupXwaif7hg zf37kC14N42mRIcm ZHRoPSIzMCUiIHZhbGln je2orQ7jPe3+PGNvbCB3 gML0gS2gALSjVgJ1JUtz C663McEfbMAkQvkl r3gsr6vgqKe9CnU4IXFe enRwnDmqEBJ9n6VqFm91 C10fKIanBRXzSRAkVRCm ICAroSpacf7keD9w Ii8+WHYfnQU0sIH7aW5r HcRlGqI1TEihQ065ZeUx fBZgDunvG55hK3PcrXO+ IBSxBej8CTDzrBed KF1fvJQoNXspOf6ySYU4 NfJsMeApUDgnY3TvFBEg wwftrkngaTE3QMIaPTQs gY33Qr1xfWmgXOXi vJIEaG0bdlyms1gkoztm JiOtGPRcMLd9CJx0XSIv fDxwHtPiQUH1JrS5BXH6 rGLrjC7ytHojqarp sC3uV8GdPUMgxtalSq07 cV5wUmIxHyC3NItjAsj+ XAjUCAuoE2XXVYwoZB8Y XGOAWM70FH79vXCq s7H7iKO8I4KwZNInaqbi mlfjmAX4HRLmBUVwfX82 vHTuVTodYw0fg6E6v725 BXMjGRNxmV00Mu4n rIgqNAAzoVMSvK2qfnxc b9zfrkkxLmFcTYUcFTk9 JYk8IIUlpSbpVkUvAYF9 RlJ9BGR9uHZdwS4r gWhaycwxzW4oGxv+MDkv UkPzAXw5FPdtxKH+PHRk WBR1uAneSMvqULWiaU5u DYNiH8u0QvFyTlM2 KGkyW3JyCYWtfcoxKm03 gQ5kYiNaNtF8CRfbP5Nc rlX5NHWyoBYeILuaWSG1 K79oq7E9YHZzMVUb UUL3nQY2qL7paKdwcdck bGVmdDsgdmVydGljYWwt YCujQ743AFGowOlaViUz NImgQOJoXV66XD82 aRSye5T9mWV3P8RoSKQp trxyhdimbLK4ALPrBINh aJ17vSOxRVxvKh3sq2Q0 n034QXGuICYstF89 Zg7lzIyzFMZvoEDJxA7i trlrt8bclzjyNvBgZJQx QIj5QWa3WZSxzGrbZgGv KMW2TvG1NUC2yPFt qD4kkMthnlpxaF2bQao+ KcBERTbUAM11MD49mHMy h0I2hNN1A9YlOAEfimfs mddslTI6GSHdTLEv qF77eYCjLCbkFe4hn7D8 o699NCBqHGQnrJ83Aj8z yNkeKKPqsLJXbZ0drdme a4bmbdcaFnJtFIXh KNs7QOg6WEBvtUofHtFw FBA0EpY6GXP6wFXmzC8b hAtngwsmgX0cXxo+RGF5 PKH6bswhdeq7N4Rp PjwvdHI+DL95MJOaOL29 sMFscRGwn1uziPi7TuRp TJQvEFB6tYaaNHmkx1Dp MJKwS70bzBVjb5J0 IGNvbGxhcHNlOyBlbXB0 mS3jDMsjraivv9qzknzt Xmhxq7knhc17zA64A36q IHdpZHRoPSIzMCUi YBKynXbwya7gjI2dOt5+ BTTrhZL1kRW3dR5bSzZo NsQ3UNdfN914VpDrqZDq Ysgwt0aaf6kfpLn5 IjIwJSIgdmFsaWduPSJ0 b6QxOq62Q55xVKuhUTAq WUEdXUXrXLUomQcyun7y mU7gZn4+LB0nj2ib lt40nO18bLO+PHRkIHN0 eGyrGKmoSSWemS3dBUip WeQ2GSTsKtKzyL07cNBk GFakUp7ahGvoiRzl RW2qLFWfqxwgq246NtUp d5ptKUCsaNOuRAumYEW5 F93he8M4ZNEeQERdEKD2 oJK7jH0dkDkuxyrd bGVmdDsgdmVydGljYWwt BGygW322OBJtvFyhUnHo rWRkI8htjsQJVW1pSyam dGQ+EWLpSTR2hJzm FAbjLUKbgU7wYABrI3h1 JmElUyL3KPreX4BkzfM4 IXSxqXFfQVRotQYGcX2w gzrvz6mfxuluQlSv FYXuUKv5HMj3MBHrjLgj NoOqYLC8FmB7EWA1wCDy yN5zmXfhaefcmA7gYcb+ RklOOjwvdGQ+PHRk YHI8wPifUCqbIIXtqS4l NFHmM8k7ReKbSwI0ASdy X9HdvoR0HTAydCGxSXKm iTKUyS8oiznut5pf dodkBdRtIBGpPAc1RTv8 FEKpjXeoDsAePUN0IiL2 QYV3oNKigL3bgFnowioj cY5jWnq+TVJOOjwv dGQ+FNUpVBH1qHapWUqs ZAZjbH5nXATbM0q0HhHe XpH2HQzzT4IhkxI9FZFb xIAuKXBjaUICyC2z zsldf4jblgpmPxHeYLVl UIm6QQo0BRKmiIkpMqQx TCG2BwB3VMJ1gPXyhF5s aBmyqgtiwE0mFbg+ PRJ8TSZ0RB90MM92G2Fa PjwvdGFibGU+PHRhYmxl IHdpZHRoPScxMDAlJyBz aQdyIS6jBm6xDUXv LWN (more content not included)... [facility] Consent Formson 04-17-2024 Consent Forms [id number][facility]-17-2024 Outside Records [id number]# [facility] Summaryon 04-14-2024 Inpatient Patient Summary [address] [address] Patient Discharge Instructions Name: NOEMI BRAND : 1960 Patient Address: [address] [place] [address] Primary Care Provider: Name: Provider, None Phone: After you are discharged if you find you have any questions, please, call [phone] ext [phone] to speak to a nurse. Discharge Diagnosis: Prescription Information: If you have been given a prescription for narcotics, seek immediate medical attention if you have any difficulty breathing or any sudden status changes such as confusion and sleepiness. If you or anyone you know is experiencing suicidal thoughts, mental health, alcohol and/or drug addiction problems; contact the [facility] 05/04 Crisis Hotline -Text 4HOPE to 273832. If you received any narcotics, sedation, or any other medication that causes drowsiness for the next 24 hours, unless otherwise directed: ? Do not drive a car. ? Do not operate machinery such as power tools, lawn mowers, drills, sewing machines, or stoves ? Avoid alcoholic beverages and drugs for allergies, nerves, or sleep ? Do not make important personal or business decisions or sign any legal documents [facility] would like to thank you for allowing us to assist you with your healthcare needs. The following includes patient education materials and information regarding your injury/illness. NOEMI BRAND has been given the following list of follow-up instructions, prescriptions, and patient education materials: Follow-up Instructions Medications During the course of your visit, your medication list was updated with the most current information. The details of those changes are reflected below: Medications to Continue That Have Not Changed Other Medications acetaminophen-butalb ital (acetaminophen-butal bital 300 mg-50 mg oral capsule) 1 cap(s) Oral; as needed as needed for headache. aspirin (Aspirin 81 Chewtab) 1 tab(s) Oral (given by mouth) every day. atorvastatin (Lipitor) 80 Milligram Oral (given by mouth) every day. baclofen (baclofen 10 mg oral tablet) 1 tab(s) Oral (given by mouth) 4 times a day. buPROPion (buPROPion 300 mg/24 hours (XL) oral tablet, extended release) 1 tab(s) Oral (given by mouth) every day. cholecalciferol (Vitamin D3 125 mcg (5000 intl units) oral tablet, disintegrating) 1 tab(s) Oral (given by mouth) every day. famotidine (famotidine 40 mg oral tablet) 1 tab(s) Oral (given by mouth) every day. ferrous sulfate (ferrous sulfate 325 mg Tab) 325 Milligram Oral (given by mouth) 2 times per day. folic acid (folic acid 1 mg oral tablet) 1 tab(s) Oral (given by mouth) every day. gabapentin (Neurontin 300 mg oral capsule) 1 tab(s) Oral (given by mouth) 4 times a day. galcanezumab (Emgality Prefilled Pen 120 mg/mL subcutaneous solution) 120 Milligram Subcutaneous (under the skin) every 4 weeks. levothyroxine (levothyroxine 50 mcg (0.05 mg) oral tablet) 1 tab(s) Oral (given by mouth) every day. metoclopramide (Reglan 10 mg oral tablet) 1 tab(s) Oral TID before meals. montelukast (Singulair 10 mg oral tablet) 1 tab(s) Oral (given by mouth) once a day (in the evening). naltrexone 2mg qhs. omega-3 polyunsaturated fatty acids (Fish Oil) 2400mg daily. pantoprazole (Protonix 40 mg oral delayed release tablet) 1 tab(s) Oral (given by mouth) 2 times per day. QUEtiapine (Seroquel XR 400 mg oral tablet, extended release) 1 tab(s) Oral (given by mouth) At bedtime. senna (senna 17.2 mg oral tablet) 1 tab(s) Oral (given by mouth) once a day (at bedtime) as needed for constipation. Template Non-Formulary (Compund medication with Biotin) 1 tab(s) Oral (given by mouth) At bedtime. Template Non-Formulary (Compund medication with Biotin) 2 tab(s) Oral (given by mouth) every day. valsartan (valsartan 80 mg oral tablet) 1 tab(s) Oral (given by mouth) every day. warfarin (Coumadin) 5 Milligram every day. zolpidem (Ambien 10 mg oral tablet) 1 tab(s) Oral (given by mouth) once a day (at bedtime) as needed as needed for insomnia. It is important to always keep an active list of medications available so that you can share with other providers and manage your medications appropriately. As an additional courtesy, we are also providing you with your final active medications list that you can keep with you. acetaminophen-butalb ital (acetaminophen-butal bital 300 mg-50 mg oral capsule) 1 cap(s) Oral; as needed as needed for headache. aspirin (Aspirin 81 Chewtab) 1 tab(s) Oral (given by mouth) every day. atorvastatin (Lipitor) 80 Milligram Oral (given by mouth) every day. baclofen (baclofen 10 mg oral tablet) 1 tab(s) Oral (given by mouth) 4 times a day. buPROPion (buPROPion 300 mg/24 hours (XL) oral tablet, extended release) 1 tab(s) Oral (given by mouth) every day. cholecalciferol (Vitamin D3 125 mcg (5000 intl units) oral tablet, disintegrating) (more content not included)... Normal [facility] MAGR Intraoperative Recordon 04-14-2024 MAGR Intraoperative Record MAGR Intra-Op Record Summary Primary Physician: LINA SCHWAB MD Finalized Date/Time: 04/14/24 10:38:56 Pt. Name: NOEMI BRANDPaul Reddy/Sex: 1960 FEMALE Med Rec #: [id number] Physician: LINA SCHWAB MD Financial #: [id number] Pt. Type: D Room/Bed: / Admit/Disch: 04/14/24 08:45:32 - Institution: Case Times MAGR Entry 1 Patient In Room Time 04/14/24 10:33:00 Out Room Time 04/14/24 10:38:00 Anesthesia Start Time 04/14/24 10:35:00 Stop Time 04/14/24 10:37:00 Surgery Start Time 04/14/24 10:35:00 Stop Time 04/14/24 10:37:00 Last Modified By: Luz Marina Huber RN 04/14/24 10:38:35 Case Attendance MAGR Entry 1 Entry 2 Entry 3 Case Attendee Olivia Mora MA, Diane RN Baumer, Erica RN Role Performed Track Coach Track Coach Track Coach Time In 04/14/24 10:33:00 04/14/24 10:33:00 04/14/24 10:33:00 Time Out 04/14/24 10:38:00 04/14/24 10:38:00 04/14/24 10:38:00 Procedure SI Joint SI Joint SI Joint Injection(Bilateral) Injection(Bilateral) Injection(Bilateral) Last Modified By: Luz Marina Huber RN, Erica RN Baumer, Erica RN 04/14/24 10:38:36 04/14/24 10:38:36 04/14/24 10:38:36 Entry 4 Entry 5 Entry 6 Case Attendee Erica Barkley RT (R) Vikas Cody RT (R) Saige Singh CST Role Performed Ware Server Ware Server Scrub Personnel Time In 04/14/24 10:33:00 04/14/24 10:33:00 04/14/24 10:33:00 Time Out 04/14/24 10:38:00 04/14/24 10:38:00 04/14/24 10:38:00 Procedure SI Joint SI Joint SI Joint Injection(Bilateral) Injection(Bilateral) Injection(Bilateral) Last Modified By: Luz Marina Huber RN, Erica RN Baumer, Erica RN 04/14/24 10:38:36 04/14/24 10:38:36 04/14/24 10:38:36 Entry 7 Entry 8 Case Attendee LINA SCHWAB MD RN, Socorro Role Performed Surgeon - Primary Track Coach Time In 04/14/24 10:33:00 04/14/24 10:33:00 Time Out 04/14/24 10:38:00 04/14/24 10:38:00 Procedure SI Joint SI Joint Injection(Bilateral) Injection(Bilateral) Last Modified By: Luz Marina Huber RN, Erica RN 04/14/24 10:38:36 04/14/24 10:38:36 Surgical Procedures MAGR Pre-Care Text: A.20 Verifies operative procedure, surgical site, and laterality Im.150 Develops individualized plan of care Entry 1 Procedure SI Joint Injection Primary Procedure Yes Primary Surgeon LINA SCHWAB MD Modifiers Bilateral Surgeon Comment BILATERAL SACROILIAC Start 04/14/24 10:35:00 JOINT INJECTION Stop 04/14/24 10:37:00 Anesthesia Type Local Surgical Service Pain Management Wound Class Clean Technique Details Closure Technique N/A Entire procedure No was performed via laparoscope or robotic assistance Last Modified By: Luz Marina Huber RN 04/14/24 10:38:38 Post-Care Text: O.730 The patient's care is consistent with the individualized perioperative plan of care General Case Data MAGR Pre-Care Text: A.350.1 Classifies surgical wound Entry 1 Case Information OR MAGR OR 02 Case Level None Wound Class Clean Specialty Pain Management ASA Class 3 Diagnosis Preop Diagnosis SACROILIITIS Postop Same As Preop Yes Postop Diagnosis SACROILIITIS Blunt or No Is the procedure No penetrating injury considered occured prior to Emergent/Urgent? the start of the procedure: Last Modified By: Luz Marina Huber RN 04/14/24 10:33:27 Post-Care Text: O.760 Patient receives consistent and comparable care regardless of the setting Time Out MAGR Entry 1 Procedure(s) SI Joint Injection(Bilateral) Time Out Checklist Verifications Team Introductions Yes Confirmed Identity, Yes Completed Procedure, Incision Site, and Consent(s) Presence of Yes Site Verification, Yes Necessary Site Marking, Site Procedural Marking Equipment, Devices, Alternative, and/or and Implants Site Marking Verified Exception in Accordance with Facility Policy Anesthesia Review Antibiotic Received n/a All Anesthesia Case does not involve Within an Concerns Addressed an anesthesia Appropriate Time professional Interval Prior to Surgical Incision Surgeon Review Anticipated Blood No Expected Case No Loss Risk Addressed Duration Addressed Critical and No Non-Routine Steps to be Performed Addressed Nurse Review Equipment Yes Fire Risk Yes Checks/Concerns Assessment Addressed Completed and Interventions Performed Diagnostic and n/a Sterilization n/a Radiological Test Concerns Addressed Results Displayed are Appropriate and Labeled Other Concerns n/a Addressed Time Out Erica Barkley RT (R), Time Out Time 04/14/24 10:34:00 Participants Olivia Mora MA, Francisco LEATHER STRETCHER, Lynn Moulton Diane RN, Luz Marina Huber RN, Vikas Cody RT (R), LINA SCHWAB MD, GumSocorro cortes RN Last Modified By: Luz Marina Huber RN 04/14/24 10:35:36 Patient Positioning MAGR Pre-Care Text: A.280 Identifies baseline musculoskeletal status Im.40 Positions the patient Im.80 Applies safety devices Entry 1 Procedure SI Joint B (more content not included)... [facility] MAGR Preoperative Recordon 0 04-14-2024 MAGR Preoperative Record MAGR Pre-Op Record Summary Primary Physician: LINA SCHWAB MD Finalized Date/Time: 04/14/24 10:47:00 Pt. Name: NOEMI BRAND /Sex: 1960 FEMALE Med Rec #: [id number] Physician: LINA SCHWAB MD Financial #: [id number] Pt. Type: D Room/Bed: / Admit/Disch: 04/14/24 08:45:32 - 04/14/24 10:43:00 Institution: Pre-Op Case Times MAGR Pre-Care Text: Patient will be optimally prepared for surgery. Patient is free from s/s of injury. Provide information to patient/family related to plan of care. Verify patient allergies. Confirm identity and verify consent before the operative or invasive procedure. Entry 1 Patient Arrival Time 04/14/24 08:54:00 Preop Departure 04/14/24 10:25:00 Last Modified By: Oscar Thompson RN 04/14/24 10:46:59 Post-Care Text: Patient is prepared mentally and physically and is ready for surgery. The patient remains free from s/s of injury. Patient/family express understanding of plan of care and participate in decisions affecting his or her perioperrative plan of care. Allergies documented appropriately. Patient identifiers and consent correct. General Comments: Pt arrives to psw ambulatory. Pt denies cp, sob, cough or flu like symptoms. Pt denies pacemaker/defibilalt or or sleep apnea. Finalized By: Oscar Thompson RN Document Signatures Signed By: Oscar Thompson RN 04/14/24 10:47 [facility] Patient Handouton 04-14-2024 Patient Handout [facility] Progress Note - Provideron 0 03-30-2024 Progress Note - Provider [id number] #1.00OTGTIFF [facility] Coding Summaryon 03-27-2024 Coding Summary HTMLBase 64 GmnensuxPNi5aEu+PGhl YWQ+KX1LRKIqY46hgWOp xG4vJ1NVYBoRVvhhWDSY KBrFNhFfygOoEA2rwGRy ZXJu IC8+OQ4tIIOhAdwpqVGu k8S2nML5K12vwz4yKQpz wPC5OCEfRgPxwtbzd8le jKr8ZAbeAgorSoWz XMRrtZ54IBP6oK39Sz15 sTIrtFSlk5rumOf9TrYt JZOwPQV3fVraMBstu3Gk NRBjQ52xdDTan7E8 IGNvbGxhcHNlOyBlbXB0 aU6nOZulzkreh7pvuksv Fvg6gy10dMJqq5I5qZW6 Z7XtdpY1VQDwjGHy HeudcZQFnV7kqhjni6fw prhfXdMkOFRuJSw5JRe5 HNWoaIahPqXhBQ56GZK6 QZAikfVpD5DfNFAi mJqrDkZ8h7M8Bm9UT9FG MvcgY6DAGJWBLNskkTJ+ RB79fe03X5ZkFziwVtn7 DBXrQJH7uGT8xI8k VGEbGLczo5T5aBQ1P8As exWhlz0nt5zuOFOxZUal B56osRKvi8B5NCAsgAN7 ZQWwtZrzPaXsqV97 Oyc+VXBorHujf2XlGusj v1kqz1sgcYq8BmofVKOv mhSkuWtaVCK5f2DgOf5g EWYvxRO1nJA0tS9e GkCxFtO6SOijU155TiMf sJYsBggjI47vK8XmjBJ+ DUWzYhe1NUVaqKncHW7t X4MbDBZdskhhfXZb zCqgEA5qDIPjwuucMJKw xH7sRRRgE5w6CzVsApY0 STjzQ7KbBCSjxpmrNb30 jD2rFvJeMxY3IMhe Y5ZwsfE5RPOnqZWuNFrm BKX9V12si2T0LRClYVIk KOS4rIQ4yU2ldSoiabex bGVmdDsgdmVydGlj AJfrZLrxT371ZNWlqXqx PkNvZGluZyBEYXRlOiAg MDcvMTUvMjAyNDwvdGQ+ TBIkKNK6wFkqBOOf zACgFVjbWo7awLvadHol YI3cFKOyrkamJXMnbV5z RKXoqHZjvMdfES5bDFIn pzzoq432ScGtWBO4 MESgxJNhT8KueB8jZjVa JSPkIJRnK9KjlKCbFDjh M860CNvuLcC1VMHsluZy Q7QtNRQwoBppWfF9 c2T3Ot8Kp6BkjmnlI8Ci jOKqYsEaAubmZOo1R1Mf PjwvdHI+UB86KAWgFD23 BVx3CIH0kAofQFxr BRDvM3EhjR1kOoGaWTRt ZGRkOyc+PHRhYmxlIHdp ZHRoPScxMDAlJyBzdHls NR9cHq4bWNRrDQIv tUrxsXMgRzSfb3zeEFYh UPnpUG7skIssR0SlgKO9 BZFhp4b7Gd94I73qC2Vq dXA+OWBvgTF9rDT0 pG6vFrAeRmE9OJpgX382 XpGrqNRvZwxiz2abs0rp zFw8XbE1ZDCuwtUlaJwr DJL5z4BtGo47Q52y IHdpZHRoPSIxNSUiIHZh tQqrio0lgD6mDj8+PGNv gUS6pMU0yZ0uIcBvImF6 UTciX440LiRgzMWn Tyymf5vuu4cjqKz4CgYz LKRrgpGtyNulWCH5v7Dy Jq76O5XdtYris2MyPgh9 zp91xLYxk5W8zZP5 K7PrYKYszwpnvAReiAjw IV3dLLHjjcjhOVYfqI0g ATRxP7f0DrQcVlZ9GYqn V6AubrX5FEGbdDLv IWUwrEJPoH7sgfghc3rc wajbTkVxLRWhGOl0FQp5 FXCojIuhBaWzCVV2DsC7 TUG6zUFbxT9tmMmq lmxgfD5rPnj+LHG2jRVk aHVQUB9zKgpbpLT+PHRk WXS3uWneRKhsYRYusS7g YSVeA3r1OlUlBzU6 VXefK2BlbrV0OKVviSUb SLRyuLOXfO5zzhsjq0yc kncaKfEtGBWuDPr5PMd5 LWFsaWduOiBsZWZ0 TvY7WVI1zQKbvI8ipYnd vypnlM1wVbg+QmlydGgg YBB0GPh0T8XxEdu7MOOg fUavBV7gdRWxGJwb Kf5rlFxyoUdkOE6bRRXj yctbv310JaIcq5vzUAOm fRSrJUgmRVC4I91ic8V6 JWNdIUEuRUM0gCT6 aI1obCwmddjujJLfkXwk ggNklKsnPIaqLLakO883 UKAqxWidEyKmLDm9Q6Qd Vbb1AVCxdFogNW3h aGWjKShmNq6vvUgpoSuk DT6uUWQguksbw428RnCb n8htALAlxJCtQYstLYI1 M31dx8J2DDOrAWNa MJQ5lCH2yQ4fjXhursxt bGVmdDsgdmVydGljYWwt XTxvO641FJFtlTxuFuVi lYx3F6LhExv0UICn kDcoFZ6kkSJmTSrcOr6w qGrmsSrrQE9hVIOxcxwx k184BfKwg6xgHHDioBMj OJyhBDJ2X20kj0K9 JBIpDHKeEEE7oHP4uR5c bGlnbjogbGVmdDsgdmVy wRepNHfnTZnsG888RNTc cDsnPlBhdGllbnQg TDtgWQa6O4ScKywpsAJ+ UJ92QMCmRJ10eEAmpEFk k3xldCc3SuGqTIJhCVM1 yLwfJCrub2SkFLTf J71tkQAxx7Y2ZTObgAnp sVKjRqKilZR2jH3sGQqs sypyy4kxtkudXqfrn9dh nl62tW56V13wHUxn ZHRoPSIzMCUiIHZhbGln lu1kvT2jAv5+PGNvbCB3 vXP3mB3cFIDwBqD1WJqc W244NhGxzXKnTzkz r6mog0kbaHz0TxJ6SBFk rrUhsGcdKIQ0n1IuJr85 U12wLHszSBScRQXkYSHx QDZwyWhgzq8ovA8m Ii8+ASNipJX0oFQ0tE8g FcMzUcR3FYjwM923QwWe xUJrDtywP92iH0OrdCJ+ CQDmXxm7WFDvwQyx EN4idJYcYMpjTm8iGEW0 MrDzIiAjAQquF4DkGSGh jurgnkawxHN7BCMvOWPs wM20Df6leMaeOTLt gOLVsF1xrmpna7mnmabp BhZcTPLwFEg0WBz7FFRo oUjfDjOyIYO5MeR8JQQ4 uLXpiB6iqOvlrrgs tM6dZ8RiWEAbbfrhCk20 zU2vZgVtTeT3CHtcHpq+ NKdNRBdyO6XYWLduVH4B BJOFTR57WC85eDZf y3M7gRD6Y3QvTYKsvczc bxzbtZN6ULQaMHQikV24 dMHgQDxaLx8pq9E7l127 OSJoXVOniD03Ms9q gWudCPAneXUAjP8tujlk b5ukqhbxOzSnFIYuCBn2 RPf5AJQuoHhcPvFcIKX5 NvG6BPC4mZMggS0b dJemqvlklQ3yOqm+MDkv BbBaIGi4GGnvmPC+PHRk IEA8vUmtXUofDXUhwA5c WDOeP0t3FqQxGkF0 RMppQ0QuCYLvwvarIw43 sZ1xWrLmVlQ2ROmzZ0Vw jxQ6BBEzjUNaMCebBQH4 K31yl2Y5HYUpMYLp VBL2zMM1fA4zuSawvbpx bGVmdDsgdmVydGljYWwt INbfX593GDQreNtzIsSm RPfaIMMkZB65NA50 sCMtm1F7tDF1R2TcNCOk gadgtdkwdDI2NHWbYNYw wQ30zBIyGOipTk6oa3K6 t592XJTvSRTfgI62 Mi7xuSscDKMmgKAFoM0t ckdyy7tltyzfRwDwCBRe XAj2RAa5ZFUfkSqaCmWa KGN6JmF8KKJ7oAEq nR3hwGkmzqljmB5wNxd+ HsQKJQiERH76RC62tPOk r7Q9gEA4U9TnZRHuxcth vanrjAG9ZKKfXOWg aJ13qKWbQFjmAk9ao8D3 d040MJNqWVAakO41Uh3w zWjgFZCtyYEUmG7xgapj j5idbamjSgGcQKQq VVp6QOx4IOXmbVaaPbGv RLJ6RgG8LQH2eMIgrU9d qEchctdcqY1jNas+T1A8 W7JsJnoxpSX+PC90 UIBvVS44lIKepAJob9oh qSo8ZlNfEBEzZCC3qFne QFbam4MdPDHpI88ltAPr p0Y6BTDvtQrerHQn OoPfwQV8kN2zAFuivhuu f5waglmcIefbj6uaqo39 oC19B19aANspRILhCSAp PHSxMQCsuLemxh6o lY8kLr9+HTGrtWL7pXD0 yG0rRrMuHxE9FHpjT776 DtIwcZWsEknnm2rer7nb kPp5YeArLMOtwgTi pLvaOTX7o7LkFm57Q34s IHdpZHRoPSIyMCUiIHZh vGmxni6avK7iYh3+PC9j f1yten17fX42xVH+ YVFuHBR3qZbaQBikDDHl uJ7aNHwrEiP6NBHdLqQu sM28uMCaFTcyDl5tcYrc zLgbEH4mYABinpbq r057WcVkq7avYOTgnVFs FSuhBQE1W37wb5F5WSDo GIPtBPO6hND3oT3fiNri bjogbGVmdDsgdmVy fJdeMPexDAxrR076HLBf rBksKwYhzFYlJ3wprvME PE5mJiriiDW+PHRkIHN0 yAxrYQkfYOQsiK9x IQVkF7l7LiNcVmK6SPqu T0ZfqlN9HOXzoPEaGZKh nXKOtD7jharjs0nyechu ExJzOWXxTUa5HPv3 JLGtsOagMkZhVTP1GpW5 OVR7cAEgiT3dlXqurlrr eG2xTrg+RklOOjwvdGQ+ ANVdXGR2eSuwXRqb NIQvrI1kPOFkW6o3JiIl IyL2OPwzX0NriwG8SFIe yXBnMXUulUUNwW9mefkw w1elxcjoCeThAXVs RLc3PEb5IEZyjYwxNpZa AIR0DsC6UVG4oMHzdR5w sBjlvmdcoC3rDyx+TVJO OjwvdGQ+PHRkIHN0 iEhmRFwpQTVbcK4vDUSc V3l4DeZzVwU3GPzsG3Md igN3LDRxyFKgNQAsnQTV hZ3xllyhi2tmsnel CiCzCXFhXVi9NRf8BNRu nQerOkCyGAQ7FoO1APR8 gPYjsE4tbDsdbwkdzS1a Oyc+GJV4RTK1TZ43 JQ40C0CyJotycGGcrQH+ PHRhYmxlIHdpZHRoPScx FQAnZjLchVttBE7zJx6m ZGVyLWNvbGxhcHNl OiB (more content not included)... [facility] Coding Summaryon 03-08-2024 Coding Summary HTMLBase 64 PqpnnbazTHd6xJa+PGhl YWQ+VH5GMDChY72jsTTp qD8bB7MIWXnPHcogGVSP SQhUBsBuafGpPF0klQKl ZXJu IC8+VR7qPYVqUvhrtFPw h6R7jJI5J51rzv4tJSdi jTM8BABjQwZgtuzni4ny eOo0CNniVojlJiLy IALczW20NKN3gI00Yt08 mLZayFHme5huxUf5QqRy EIWvAAG3rKsqFPewb8Ur HPBnT21gcZQhm6G1 IGNvbGxhcHNlOyBlbXB0 aU0sEDijbkpxz9zidpke Jjc7bi98zXGgv5E0sDV1 A7TidxC1MXJjbYVm ImvumCEEuM1hjmeiv0md dvqcYaPwTFSpHOk7EFu7 AGNlbXrhEfEnNU82ENT0 WFAbmfShO5AuOKMf bZqsIzU6u2E0Jd9JX0EW NoltP6TKLXYIUFlczYT+ CK09ab44J6QoAotsPry1 MGPfZMS7fZM2nK0q KKWaQCtkf5E8sOX0W0Ev mhVbmr8bo8lhKHAbNYiq L93ljVZpr7O6MBGbkNO9 TGTugXhzAuBxnC68 Oyc+EUMlvRdms0DyKfkx z5loz3ckmTx3XuzoYKXd gcEblDqtIDF1i7EoTx6k BYIhtAI7uPS2lS8f YgGmGtM8OTyeC307BkUn iQDtKdqoK26nW2CwxNM+ PJQeUfs7SJDvhVknMQ6z D8XfKELptpihzBWx dWuaTT0cDJOytrkdTCLd wD4xQREsX1c1ViMsBvT2 QVjwW0RfYWMrrihzSr93 dW1iDxToGlC4GFau E5FhdsH0CQEprENrFOdw KQY7C41ma8J1VHRdACQv YBU5zJA3vG7dpKuqokzq bGVmdDsgdmVydGlj YSocDWbiT708TAIwlOgf PkNvZGluZyBEYXRlOiAg MDYvMjYvMjAyNDwvdGQ+ KYBtMIT7qMidSVBa wKMyVPbrYh1hrSpdhLax YH2fHQRbqbvhLAKmpK0f TOZixSKnrPdnCX6iBNAb ipmou807ImHgPMK6 JFLjpHKpY1BuhH0wJgWn ZQPqGYZjA9ViqLJnHFoh V971DEahTzI4SGKrdvGo R2HrVMFyjIoeRsF4 a4G5Hr7Gu9RrcomsV2Sy gHMbJfTvZuakVGj1O4Op PjwvdHI+LN63UWYbXM13 NUv5EBC5jRtfKAdl GASpD8ZjuW4tGdLhABLa ZGRkOyc+PHRhYmxlIHdp ZHRoPScxMDAlJyBzdHls EG6iIw7lDKKrXJOm fRoqjUDxRaGpk7htYGSg MLpuEO0reNnvL7DfqJN2 RQPun8z4Rc67F70jH7Hl dXA+XFSoyJR1nLC5 fO5xOhGwWjL3XTcsI160 ArUybPKvNxcqn1lym1ri gSg9SvE6IPBfruUilFkh JCM7z8NrFc64H53f IHdpZHRoPSIxNSUiIHZh kRcrxx3iaO1bFi0+PGNv pHX0eYL1dM2nIkHiHiE8 EMzeT891FqJwkHCs Qsxtk4tue0xpmWe3UsQf KFNszgGkwQsrFZO2f7Qh Ah28I7IuzCvgj0AvJym5 gw37eIAfa7W3wBX6 G2ImZWCkdlisgURsoPpu BW3wPLXemrkgWKKxyG8p YUAyD7v7QnXjNaN2UQzj D2HpdfX9EQWqfCCz TOPtyRDTcX9akvacp6by spobIxYrOLPlMIu0TGs5 ZSKyuPozUuJzJBM1HnE3 SLS6lRGujO3xiKcf mqjckU8dIpj+SVG2oTSo vGLNPG0aTmmmuSF+PHRk UVU7fKyhGHobTUPzoV9m MSJoA6r1UkEzSaU3 VSkgZ7NekiK6WNEltBZe TYJazHBQjF5sablsw6zg qqhuGoVyVTFiGPy7UEs4 LWFsaWduOiBsZWZ0 DoE7VEH7qBNsyN0byMxr qjtncN5hGxp+QmlydGgg JKU5SPi8S1DkWhm6NDBc yQfbUI2afPQxSNmg Oz5mrWwsaGpsQI5zQDYl cshev387QvHgh3sgYBBj oPDaJEksBOQ9L90ia0W4 YSWsAJWsQMF0gJH7 xT2tgEtvxgrvmNTumNxx uyXhzHpkYJpiBMpeI478 HFUidGvbItIfWVx2V7Cg Wjp6JZGwtSmsSY0z vXDsPWzlMs2geStpzLnk US9hMRYhfupaj578XtIh y1mbUBTxvTKoMJtzEWJ9 V59jm5Y1DEJoADBj OXV5iRC0tV3ujJpvbryh bGVmdDsgdmVydGljYWwt QNukD298MLIwvWoqAkQu wTi1S3CqPmh6SAVo kOqrZF8iaACwSIpsPe0y sIfyeIgbXP3oPMOmirck l647ZlRcn8tzOMYqzUWp ZBbdTFD6J96da2Y1 NGKeCGJkLLP9sIJ5sC6t bGlnbjogbGVmdDsgdmVy xLpeXLjzCKlqG283GBUy cDsnPlBhdGllbnQg BFfaSQy6R0SgXhcstPU+ NW59GPJlIW85iWNmdMUa q2qqyFo5HrFiCYNoHZJ0 qUrhAYukz5BaXTPr V19ksRZay4X5MYOqzNdr wGFrCwVayNM5tJ0mYZse wkmky4kihczmJywbq2tk pt53rX12X21qAZof ZHRoPSIzMCUiIHZhbGln da9hjK3zUp7+PGNvbCB3 iBS7gB8oRAKhXsV1TGfa S480HrJihQZvGpis e6pgd2fbgBk7OnG1EYCk cgQpqUphDBH5p0McUp17 D69jWGwbQGQcEGMvTFCj RATofPdrdm2qyG0w Ii8+JJJxhPD0bJZ1pD4r VvAaRbD9JPgqX590EjIt vJHoSvxiS56cI2KnfXW+ BERzHed7ILVjxCwi QG7mrLNcKVdlKq7vHAY8 QjYnWnHdGXpoC2KrNLAq mjsoejwwrZB3FWXhYSGr lI51Qo8lhNmvAKUd dSLGiT1epbknn4tphngp DhPvTQAwMYn2LPb9UHHj bFqrZcUkZXO0BbK9KBB4 rIFcqH9yfVtppbxk kS1lE7AwJVFyxplbIy82 mK2nTjLtQzF7BXhzLru+ BCzSOXntW1YHKRezID9C VDFAPP87GO90gOHg j9P9wUL9X8RiMMYzsopc acxqjTI5ABXoXQFemS56 iXTpPNwdBz7kz6B3m492 PSMuBFWzaS01Re7q gCjpERHyhFKOxE2makgd n1mvoxezBbAcBWZhGHj2 OKo8ZFKptNwuRpDcAAR3 RvQ1PQH2iNLlcK9e jSeddvtriQ3fZmp+MDkv BcGdXId0ODivyXI+PHRk BSV9xZcnWSlkUFAiyP8v PDXfW6g9SqQnAuN3 OXibV6PrQDGelsruJu31 bH8vLiYwMaK1CItaV2Eo lkP3RNSabTWnPEroHCX4 P50ch4Q7EEIsEIBb BBL3nQL4eD3dcJuotqum bGVmdDsgdmVydGljYWwt VSxrR995DWRcvWuiTdEm KCtsAKKtOF73WY10 nKGxl3F8iBC4D1UhCTYs ijangvtsbTM6YSWzZAEu kI44tOFaZYkaNg2gz6H3 d069DJPeGQPrzS82 Zx6dlUupLWWufGAUeX3c ydedu1islpleOcWvAIIi IWl6JHo6QJPehXbnXcUu KQG6GzT4PLC0qEXv rP4ifYsdicgxiU5hVgf+ YqCHOIvDCU79JZ99xLRz f6V9cPO1E1GlVHUktstn builyQV3XWIuJFYr uN71eWWjVCokKz9jc8Q4 j614BNAlSKVnlV68Ze7h fKtuKQDdiKKXlY6ovuic z5eamhpzGwIiMBYj DDk3GOo5OCIugBegVnEq BTG1KtP5FYO4gJAtfZ6v oRohmpexbF7pVfj+RGF5 DFV2evxsnri2C2Di PjwvdHI+US15KHCnZY09 kRXcfVQaq3ezxXz3HlEz ZAIeVJT9qNjuMYomz3Lq VZKhO04rpODfb4A6 IGNvbGxhcHNlOyBlbXB0 vR8rKOkqmicbv3mxqafd Ypcsx6vghv68fF61P81q IHdpZHRoPSIzMCUi WVMsxYflkg0ylT0dTa0+ YPYwwQJ1bQN7eP7pDnOw GmA7YUcvK408DkRbqTDk Qctzk9fvq0lzyOs7 IjIwJSIgdmFsaWduPSJ0 m6WsJy78F72lULneZLNt LLJmPWWnZFUsnHwxjl0s nC2kGc4+JX2if7cl zr65zH53oKE+PHRkIHN0 kHvsOUwsJDJsdB5cISxk CtN5RIBpMlBmaI57iBXq KHmnFu4xhHtdlGfy IL7hOUZulorjj760DtOz r9vaXFFiqJGwQSccKYJ0 P81pg0B1SSGbNSJpMPT3 tID9dG2ohSmpkryb bGVmdDsgdmVydGljYWwt TYflT018FDEffPkhIuZl nAUyF9waygXSBM7gKvyo dGQ+ROAbHBJ2zMwg IVmvVHOroS6mJSXzS8c2 YwCiYwS9IMiiW7EqtiK4 FGXkqVAqHOOhzNUUvU3y vhfvq7eviplkKsPr EVZeYCk7AZg8GJJghGmx UrEeDJV6LxI1CAP2nMKp vM9urEvdcmjekC2mBlh+ RklOOjwvdGQ+PHRk CNF7aYrtUHklGAEhvD2h ASVtM8i0VxSoDaA5ETtz Q5VwwhE4BVWooWJbHBRq cRXJlJ4awwfiv8ci aubjThEjMFYaGVb5QRb9 MGQbgHaiMgVmOIK4JfN4 RAY2eTRhmG1vsRyvtnvj cQ1sPhr+TVJOOjwv dGQ+NUYlIBQ3sNsoMOxv LDMafM1bLPFzL5l6SvOf OqR7WHgcW8NpgyA5CDFu iARuHCQfcUCRdH3y rmhlv0ygncitFuFsIZGo KGm2NIb0DVZypNblKeDo HWH1UbY6LMU3uNPbzZ9l cIvptgxzaH8wQmg+ FUB1HSV9IX65OU90Q0Sp PjwvdGFibGU+PHRhYmxl IHdpZHRoPScxMDAlJyBz lQlsUU9jJr7bWBQg LWN (more content not included)... Normal [facility] Alanine aminotransferase [En zymatic activity/volume] in Serum or PlasmaOrdered By: Carlotta Stanley on 02-25-2024 ALT [Catalytic activity/Vol] 16 U/L Normal 7-52 [facility] Comment on above: Performed By: #### C MP, ESR, ADDONUAPLUS, CBC #### [place] [address] [place] #### C4, C3, CH50 #### [facility] , Albumin [Mass/volume] in Ser um or Plasma by Bromocresol green (BCG) dye binding methoOrdered By: Carlotta Stanley on 02-25-2024 Albumin BCG dye [Mass/Vol] 4.0 g/dL 3.5-5.7 [facility] Alkaline phosphatase [Enzyma tic activity/volume] in Serum or PlasmaOrdered By: Carlotta Stanley on 02-25-2024 ALP [Catalytic activity/Vol] 72 U/L Normal 34-104 [facility] Comment on above: Result Comment: PERF ORMED BY: [place] [address] PATHOLOGIST CREATIVE/ART DIRECTOR SUSAN ZHENG M.D. Performed By: #### C MP, ESR, ADDONUAPLUS, CBC #### [place] [address] [place] #### C4, C3, CH50 #### [facility] , Aspartate aminotransferase [ Enzymatic activity/volume] in Serum or PlasmaOrdered By: Carlotta Stanley on 02-25-2024 AST [Catalytic activity/Vol] 12 U/L Low 13-39 [facility] Comment on above: Performed By: #### C MP, ESR, ADDONUAPLUS, CBC #### [place] [address] [place] #### C4, C3, CH50 #### [facility] , Automated basophil %Ordered By: Carlotta Stanley on 02-25-2024 Basophils/100 WBC (Bld) 0.8 % Normal . [facility] Comment on above: Performed By: #### C MP, ESR, ADDONUAPLUS, CBC #### [place] [address] [place] #### C3, C4, CH50 #### [facility] , Automated basophil countOrde red By: Carlotta Stanley on 02-25-2024 Basophils (Bld) [#/Vol] 0.1 10*3/uL Normal 0.0-0.2 [facility] Comment on above: Performed By: #### C MP, ESR, ADDONUAPLUS, CBC #### [place] [address] [place] #### C3, C4, CH50 #### [facility] , Automated blood monocyte cou ntOrdered By: Carlotta Stanley on 02-25-2024 Monocytes (Bld) [#/Vol] 0.7 10*3/uL Normal 0.0-0.8 [facility] Comment on above: Performed By: #### C MP, ESR, ADDONUAPLUS, CBC #### [place] [address] [place] #### C3, C4, CH50 #### [facility] , Automated eosinophil %Ordere d By: Carlotta Stanley on 02-25-2024 Eosinophils/100 WBC (Bld) 0.9 % Normal . [facility] Comment on above: Performed By: #### C MP, ESR, ADDONUAPLUS, CBC #### [place] [address] [place] #### C3, C4, CH50 #### [facility] , Automated eosinophil countOr dered By: Carlotta Stanley on 02-25-2024 Eosinophils (Bld) [#/Vol] 0.1 10*3/uL Normal 0.0-0.45 [facility] Comment on above: Performed By: #### C MP, ESR, ADDONUAPLUS, CBC #### [place] [address] [place] #### C3, C4, CH50 #### [facility] , Automated epithelial cells c ount in urine sediment (number/area)Ordered By: Carlotta Stanley on 02-25-2024 Epithelial cells Auto (Urine sed) [#/Area] 0-1 [HPF] 0-2 [facility] Automated monocyte %Ordered By: Carlotta Stanley on 02-25-2024 Monocytes/100 WBC (Bld) 10.0 % Normal . [facility] Comment on above: Performed By: #### C MP, ESR, ADDONUAPLUS, CBC #### [place] [address] [place] #### C3, C4, CH50 #### [facility] , Automated neutrophil %Ordere d By: Carlotta Stanley on 02-25-2024 Neutrophils/100 WBC (Bld) 63.1 % Normal . [facility] Comment on above: Performed By: #### C MP, ESR, ADDONUAPLUS, CBC #### [place] [address] [place] #### C3, C4, CH50 #### [facility] , Bacteria [Presence] in Urine by AutomatedOrdered By: Carlotta Stanley on 02-25-2024 Bacteria Auto Ql (U) None seen [HPF] None Seen [facility] Bilirubin Test strip Ql (U)O rdered By: Carlotta Stanley on 02-25-2024 Bilirubin Ql (U) Negative Negative [facility] Bilirubin.total [Mass/volume ] in Serum or PlasmaOrdered By: Carlotta Stanley on 02-25-2024 Bilirubin [Mass/Vol] 0.3 mg/dL Normal 0.3-1.0 [facility] Comment on above: Performed By: #### C MP, ESR, ADDONUAPLUS, CBC #### [place] [address] [place] #### C4, C3, CH50 #### [facility] , Calcium [Mass/volume] in Ser um or PlasmaOrdered By: Carlotta Stanley on 02-25-2024 Calcium [Mass/Vol] 9.1 mg/dL Normal 8.6-10.3 [facility] Comment on above: Performed By: #### C MP, ESR, ADDONUAPLUS, CBC #### [facility] [address] [place] [address] [place] #### C4, C3, CH50 #### [facility] , Carbon dioxide, total [Moles /volume] in Serum or PlasmaOrdered By: Carlotta Stanley on 02-25-2024 CO2 [Moles/Vol] 30.9 mmol/L Normal 21.0-31.0 [facility] Comment on above: Performed By: #### C MP, ESR, ADDONUAPLUS, CBC #### [facility] [address] [place] [address] [place] #### C4, C3, CH50 #### [facility] , Chloride [Moles/volume] in S josé miguel or PlasmaOrdered By: Carlotta Stanley on 02-25-2024 Chloride [Moles/Vol] 103 mmol/L Normal 98-107 [facility] Comment on above: Performed By: #### C MP, ESR, ADDONUAPLUS, CBC #### [address] #### C4, C3, CH50 #### [facility] , Color of Urine by AutoOrdere d By: Carlotta Stanley on 02-25-2024 Color (U) Yellow Normal Yellow [facility] Comment on above: Order Comment: Name Collection Type:: Clean-Voided Midstream Performed By: #### C MP, ESR, ADDONUAPLUS, CBC #### [address] #### C3, C4, CH50 #### [facility] , Complement C3on 02-25-2024 Complement C3 159 mg/dL Normal 82-167 [facility] Comment on above: Result Comment: Perf ormed at: - [facility] [place] [id number] Fire And Safety Helper: Thony Mcmillan PhD, Phone: [phone] Performed By: #### C MP, ESR, ADDONUAPLUS, CBC #### [address] #### C4, C3, CH50 #### [facility] , Complement C4on 02-25-2024 Complement C4 39 mg/dL High 12-38 [facility] Comment on above: Result Comment: PERF ORMED BY: [place] [address] PATHOLOGIST CREATIVE/ART DIRECTOR SUSAN ZHENG M.D. Performed By: #### C MP, ESR, ADDONUAPLUS, CBC #### [address] #### C4, C3, CH50 #### [facility] , Complement Total (CH50)on Complement Total (CH50) >60 Normal >41 [facility] Comment on above: Result Comment: Age Male [...] out of range values. Performed at: - [facility] [id number] Fire And Safety Helper: Thony Mcmillan PhD, Phone: [phone] PERFORMED BY: [place] [address] PATHOLOGIST CREATIVE/ART DIRECTOR SUSAN ZHENG M.D. Performed By: #### C MP, ESR, ADDONUAPLUS, CBC #### [address] #### C4, C3, CH50 #### [facility] , Complete Blood Count Auto Di ffon 02-25-2024 Mean Corpuscular HGB Conc 33.0 g/dL Normal 32.0-35.0 [facility] Comment on above: Performed By: #### C MP, ESR, ADDONUAPLUS, CBC #### [place] [address] [place] #### C3, C4, CH50 #### [facility] , NRBC% 0.1 /100{WBC} Normal 0-0.5 [facility] Comment on above: Performed By: #### C MP, ESR, ADDONUAPLUS, CBC #### [place] [address] [place] #### C3, C4, CH50 #### [facility] , Comprehensive Metabolic Pane ifrah 02-25-2024 Albumin [Mass/Vol] 4.0 g/dL Normal 3.5-5.7 [facility] Comment on above: Performed By: #### C MP, ESR, ADDONUAPLUS, CBC #### [place] [address] [place] #### C4, C3, CH50 #### [facility] , GFR/1.73 sq M.predicted MDRD (S/P/Bld) [Vol rate/Area] mL/min/{1.73_m2} Normal [facility] Comment on above: Performed By: #### C MP, ESR, ADDONUAPLUS, CBC #### [place] [address] [place] #### C4, C3, CH50 #### [facility] , Creatinine [Mass/volume] in Serum or PlasmaOrdered By: Carlotta Stanley on 02-25-2024 Creatinine [Mass/Vol] 0.91 mg/dL Normal 0.60-1.20 [facility] Comment on above: Performed By: #### C MP, ESR, ADDONUAPLUS, CBC #### [address] #### C4, C3, CH50 #### [facility] , Dipstick and Microscopicon 0 02-25-2024 Appearance (U) Clear Normal Clear [facility] Comment on above: Order Comment: Name Collection Type:: Clean-Voided Midstream Performed By: #### C MP, ESR, ADDONUAPLUS, CBC #### [address] #### C3, C4, CH50 #### [facility] , Bacteria,Urine None Seen Normal None Seen [facility] Comment on above: Order Comment: Name Collection Type:: Clean-Voided Midstream Performed By: #### C MP, ESR, ADDONUAPLUS, CBC #### [place] [address] [place] #### C3, C4, CH50 #### [facility] , Bilirubin,Urine Negative Normal Negative [facility] Comment on above: Order Comment: Name Collection Type:: Clean-Voided Midstream Performed By: #### C MP, ESR, ADDONUAPLUS, CBC #### [place] [address] [place] #### C3, C4, CH50 #### [facility] , Glucose Ql (U) Normal Normal Normal [facility] Comment on above: Order Comment: Name Collection Type:: Clean-Voided Midstream Performed By: #### C MP, ESR, ADDONUAPLUS, CBC #### [address] #### C3, C4, CH50 #### [facility] , Hyaline Casts,Urine None Seen Normal 0-8 [facility] Comment on above: Order Comment: Name Collection Type:: Clean-Voided Midstream Result Comment: PERF ORMED BY: [place] [address] PATHOLOGIST CREATIVE/ART DIRECTOR SUSAN ZHENG M.D. Performed By: #### C MP, ESR, ADDONUAPLUS, CBC #### [address] #### C3, C4, CH50 #### [facility] , Ketones Ql (U) Negative Normal Negative [facility] Comment on above: Order Comment: Name Collection Type:: Clean-Voided Midstream Performed By: #### C MP, ESR, ADDONUAPLUS, CBC #### [address] #### C3, C4, CH50 #### [facility] , Leukocyte esterase Test strip Ql (U) Negative Normal Negative [facility] Comment on above: Order Comment: Name Collection Type:: Clean-Voided Midstream Performed By: #### C MP, ESR, ADDONUAPLUS, CBC #### [address] #### C3, C4, CH50 #### [facility] , Nitrite,Urine Negative Normal Negative [facility] Comment on above: Order Comment: Name Collection Type:: Clean-Voided Midstream Performed By: #### C MP, ESR, ADDONUAPLUS, CBC #### [place] [address] [place] #### C3, C4, CH50 #### [facility] , Occult Blood,Urine Negative Normal Negative [facility] Comment on above: Order Comment: Name Collection Type:: Clean-Voided Midstream Performed By: #### C MP, ESR, ADDONUAPLUS, CBC #### [address] #### C3, C4, CH50 #### [facility] , Protein,Urine Negative Normal Negative [facility] Comment on above: Order Comment: Name Collection Type:: Clean-Voided Midstream Performed By: #### C MP, ESR, ADDONUAPLUS, CBC #### [address] #### C3, C4, CH50 #### [facility] , RBC LM.HPF (Urine sed) [#/Area] 0 /[HPF] Normal 0-4 [facility] Comment on above: Order Comment: Name Collection Type:: Clean-Voided Midstream Performed By: #### C MP, ESR, ADDONUAPLUS, CBC #### [address] #### C3, C4, CH50 #### [facility] , Specificy [place],Urine 1.015 Normal 1.001-1.030 [facility] Comment on above: Order Comment: Name Collection Type:: Clean-Voided Midstream Performed By: #### C MP, ESR, ADDONUAPLUS, CBC #### [address] #### C3, C4, CH50 #### [facility] , Squamous Epithelial Cell,Urine 0-1 Normal 0-2 [facility] Comment on above: Order Comment: Name Collection Type:: Clean-Voided Midstream Performed By: #### C MP, ESR, ADDONUAPLUS, CBC #### [address] #### C3, C4, CH50 #### [facility] , Urobilinogen,Urine Normal Normal Normal [facility] Comment on above: Order Comment: Name Collection Type:: Clean-Voided Midstream Performed By: #### C MP, ESR, ADDONUAPLUS, CBC #### [address] #### C3, C4, CH50 #### [facility] , WBC LM.HPF (Urine sed) [#/Area] 0 /[HPF] Normal 0-4 [facility] Comment on above: Order Comment: Name Collection Type:: Clean-Voided Midstream Performed By: #### C MP, ESR, ADDONUAPLUS, CBC #### [address] #### C3, C4, CH50 #### [facility] , Erythrocyte Sedimentation Ra roman 02-25-2024 ESR (Bld) [Velocity] 21 mm/h Normal 0-29 [facility] Comment on above: Result Comment: PERF ORMED BY: [place] [address] PATHOLOGIST CREATIVE/ART DIRECTOR SUSAN ZHENG M.D. Performed By: #### C MP, ESR, ADDONUAPLUS, CBC #### [address] #### C3, C4, CH50 #### [facility] , Erythrocyte distribution wid th [Ratio] by Automated countOrdered By: Carlotta Stanley on 02-25-2024 Erythrocyte distribution width (RBC) [Ratio] 15.0 % Normal 11.9-15.3 [facility] Comment on above: Performed By: #### C MP, ESR, ADDONUAPLUS, CBC #### [address] #### C3, C4, CH50 #### [facility] , Erythrocyte sedimentation ra te by Photometric methodOrdered By: Carlotta Stanley on 02-25-2024 ESR Photometric method (Bld) [Velocity] 21 mm/hr 0-29 [facility] Erythrocytes [#/area] in Uri ne sediment by Automated countOrdered By: Carlotta Stanley on 02-25-2024 RBC Auto (Urine sed) [#/Area] 0-1 [HPF] 0-4 [facility] Erythrocytes [#/volume] in B lood by Automated countOrdered By: Carlotta Stanley on 02-25-2024 RBC (Bld) [#/Vol] 4.14 10*6/uL Normal 3.60-5.00 [facility] Comment on above: Performed By: #### C MP, ESR, ADDONUAPLUS, CBC #### [address] #### C3, C4, CH50 #### [facility] , Glucose [Mass/volume] in Ser um or PlasmaOrdered By: Carlotta Stanley on 02-25-2024 Glucose [Mass/Vol] 119 mg/dL High 70-100 [facility] Comment on above: ADA recommended refe rence rangeRandom Glucose Reference Range is dependent on time and content of last meal. Glucose of more than 200 mg/dL in a nonstressed, ambulatory subject supports the diagnosis of Diabetes Mellitus. Result Comment: [place] om Glucose Reference Range is dependent on time and content of last meal. Glucose of more than 200 mg/dL in a nonstressed, ambulatory subject supports the diagnosis of Diabetes Mellitus. ADA recommended reference range Performed By: #### C MP, ESR, ADDONUAPLUS, CBC #### [place] [address] [place] #### C4, C3, CH50 #### [facility] , Hematocrit [Volume Fraction] of Blood by Automated countOrdered By: Carlotta Stanley on 02-25-2024 Hematocrit (Bld) [Volume fraction] 38.3 % Normal 34.0-46.4 [facility] Comment on above: Performed By: #### C MP, ESR, ADDONUAPLUS, CBC #### [facility] [address] [place] [address] [place] #### C3, C4, CH50 #### [facility] , Hemoglobin [Mass/volume] in BloodOrdered By: Carlotta Stanley on 02-25-2024 Hemoglobin (Bld) [Mass/Vol] 12.6 g/dL Normal 11.8-15.4 [facility] Comment on above: Performed By: #### C MP, ESR, ADDONUAPLUS, CBC #### [facility] [address] #### C3, C4, CH50 #### [facility] , Ketones Auto test strip (U) [Mass/Vol]Ordered By: Carlotta Stanley on 02-25-2024 Ketones (U) [Mass/Vol] Negative Negative [facility] - UrinalysisOrder ed By: Carlotta Stanley on 02-25-2024 Hyaline casts LM Ql (Urine sed) None seen [LPF] 0-8 [facility] Leukocytes [#/area] in Urine sediment by Automated countOrdered By: Carlotta Stanley on 02-25-2024 WBC Auto (Urine sed) [#/Area] 0-1 [HPF] 0-4 [facility] Leukocytes [#/volume] correc jw for nucleated erythrocytes in Blood by Automated counOrdered By: Carlotta Stanley on 02-25-2024 WBC corrected for nucl RBC Auto (Bld) [#/Vol] 6.8 10*3/uL 3.8-11.6 [facility] Leukocytes [#/volume] in Blo od by Automated countOrdered By: Carlotta Stanley on 02-25-2024 WBC (Bld) [#/Vol] 6.8 10*3/uL Normal 3.8-11.6 [facility] Comment on above: Performed By: #### C MP, ESR, ADDONUAPLUS, CBC #### [place] [address] [place] #### C3, C4, CH50 #### [facility] , Lymphocytes [#/volume] in Bl ood by Automated countOrdered By: Carlotta Stanley on 02-25-2024 Lymphocytes (Bld) [#/Vol] 1.7 10*3/uL Normal 1.00-4.8 [facility] Comment on above: Performed By: #### C MP, ESR, ADDONUAPLUS, CBC #### [place] [address] [place] #### C3, C4, CH50 #### [facility] , Lymphocytes/100 leukocytes i n Blood by Automated countOrdered By: Carlotta Stanley on 02-25-2024 Lymphocytes/100 WBC (Bld) 25.2 % Normal . [facility] Comment on above: Performed By: #### C MP, ESR, ADDONUAPLUS, CBC #### [place] [address] [place] #### C3, C4, CH50 #### [facility] , MCH [Entitic mass] by Automa jw countOrdered By: Carlotta Stanley on 02-25-2024 MCH (RBC) [Entitic mass] 30.5 pg Normal 24.7-34.3 [facility] Comment on above: Performed By: #### C MP, ESR, ADDONUAPLUS, CBC #### [place] [address] [place] #### C3, C4, CH50 #### [facility] , MCHC Auto (RBC) [Mass/Vol]Or dered By: Carlotta Stanley on 02-25-2024 MCHC (RBC) [Mass/Vol] 33.0 g/dL 32.0-35.0 [facility] MCV [Entitic volume] by Auto mated countOrdered By: Carlotta Stanley on 02-25-2024 MCV (RBC) [Entitic vol] 92.5 fL Normal 80-100 [facility] Comment on above: Performed By: #### C MP, ESR, ADDONUAPLUS, CBC #### [place] [address] [place] #### C3, C4, CH50 #### [facility] , Neutrophils [#/volume] in Bl ood by Automated countOrdered By: Carlotta Stanley on 02-25-2024 Neutrophils (Bld) [#/Vol] 4.3 10*3/uL Normal 1.8-7.7 [facility] Comment on above: Performed By: #### C MP, ESR, ADDONUAPLUS, CBC #### [place] [address] [place] #### C3, C4, CH50 #### [facility] , Nitrite Test strip Ql (U)Ord ered By: Carlotta Stanley on 02-25-2024 Nitrite Ql (U) Negative Negative [facility] No Panel InformationOrdered By: Carlotta Stanley on 02-25-2024 Estimated GFR (CKD-EPI) > 60.0 mL/Min [facility] Creatinine Clearance (Chem N/A [facility] Nucleated erythrocytes [Pres ence] in Blood by Automated countOrdered By: Carlotta Stanley on 02-25-2024 Nucleated RBC Auto Ql (Bld) 0.1 /100{WBC} 0-0.5 [facility] Platelet mean volume [Entiti c volume] in Blood by Automated countOrdered By: Carlotta Stanley on 02-25-2024 Platelet mean volume (Bld) [Entitic vol] 8.1 fL Normal 6.3-10.7 [facility] Comment on above: Performed By: #### C MP, ESR, ADDONUAPLUS, CBC #### [place] [address] [place] #### C3, C4, CH50 #### [facility] , Platelets [#/volume] in Bloo d by Automated countOrdered By: Carlotta Stanley on 02-25-2024 Platelets (Bld) [#/Vol] 297 10*3/uL Normal 150-450 [facility] Comment on above: Performed By: #### C MP, ESR, ADDONUAPLUS, CBC #### [place] [address] [place] #### C3, C4, CH50 #### [facility] , Potassium [Moles/volume] in Serum or PlasmaOrdered By: Carlotta Stanley on 02-25-2024 Potassium [Moles/Vol] 4.1 mmol/L Normal 3.5-5.1 [facility] Comment on above: Performed By: #### C MP, ESR, ADDONUAPLUS, CBC #### [place] [address] [place] #### C4, C3, CH50 #### [facility] , Protein Auto test strip (U) [Mass/Vol]Ordered By: Carlotta Stanley on 02-25-2024 Protein (U) [Mass/Vol] Negative Negative [facility] Protein [Mass/volume] in Ser um or PlasmaOrdered By: Carlotta Stanley on 02-25-2024 Protein [Mass/Vol] 6.5 g/dL Normal 6.4-8.9 [facility] Comment on above: Performed By: #### C MP, ESR, ADDONUAPLUS, CBC #### [place] [address] [place] #### C4, C3, CH50 #### [facility] , Serum globulin measurement b y calculation (mass/volume)Ordered By: Carltota Stanley on 02-25-2024 Globulin (S) [Mass/Vol] 2.5 g/dL Normal [facility] Comment on above: Performed By: #### C MP, ESR, ADDONUAPLUS, CBC #### [facility] [address] #### C4, C3, CH50 #### [facility] , Serum or plasma albumin/glob ulin mass ratioOrdered By: Carlotta Stanley on 02-25-2024 Albumin/Globulin [Mass ratio] 1.6 {ratio} Normal [facility] Comment on above: Performed By: #### C MP, ESR, ADDONUAPLUS, CBC #### [address] #### C4, C3, CH50 #### [facility] , Serum or plasma anion gap de terminationOrdered By: Carlotta Stanley on 02-25-2024 Anion gap [Moles/Vol] 9.2 mmol/L Normal 6.0-15.0 [facility] Comment on above: Performed By: #### C MP, ESR, ADDONUAPLUS, CBC #### [address] #### C4, C3, CH50 #### [facility] , Sodium [Moles/volume] in Ser um or PlasmaOrdered By: Carlotta Stanley on 02-25-2024 Sodium [Moles/Vol] 139 mmol/L Normal 136-145 [facility] Comment on above: Performed By: #### C MP, ESR, ADDONUAPLUS, CBC #### [place] [address] [place] #### C4, C3, CH50 #### [facility] , Specific gravity Auto test s trip (U) [Rel density]Ordered By: Carlotta Stanley on 02-25-2024 Specific gravity (U) [Rel density] 1.015 1.001-1.030 [facility] Urea nitrogen [Mass/volume] in Serum or PlasmaOrdered By: Carlotta Stanley on 02-25-2024 Urea nitrogen [Mass/Vol] 20 mg/dL Normal 7-25 [facility] Comment on above: Performed By: #### C MP, ESR, ADDONUAPLUS, CBC #### [facility] [address] [place] [address] [place] #### C4, C3, CH50 #### [facility] , Urine clarity by refractomet ry automatedOrdered By: Carlotta Stanley on 02-25-2024 Clarity Refractometry automated (U) Clear Clear [facility] Urine glucose measurement by automated test strip (mass/volume)Ordered By: Carlotta Stanley on 02-25-2024 Glucose Auto test strip (U) [Mass/Vol] Normal mg/dL Normal [facility] Urine hemoglobin detection b y automated test stripOrdered By: Carlotta Stanley on 02-25-2024 Hemoglobin Auto test strip Ql (U) Negative Negative [facility] Urine leukocyte esterase det ection by automated test stripOrdered By: Carlotta Stanley on 02-25-2024 Leukocyte esterase Auto test strip Ql (U) Negative Negative [facility] Urine pH measurement by auto mated test stripOrdered By: Carlotta Stanley on 02-25-2024 pH (U) 5.5 [pH] Normal 5.0-9.0 [facility] Comment on above: Order Comment: Name Collection Type:: Clean-Voided Midstream Performed By: #### C MP, ESR, ADDONUAPLUS, CBC #### [facility] [address] [place] [address] #### C3, C4, CH50 #### [facility] , Urobilinogen Auto test strip (U) [Mass/Vol]Ordered By: Carlotta Stanley on 02-25-2024 Urobilinogen (U) [Mass/Vol] Normal mg/dL Normal [facility] Provider Orderson 02-09-2024 Provider Orders [id number] 02-08-2024 Consent Forms [id number] Inpatient Patient Summary [address] [address] Patient Discharge Instructions Name: NOEMI BRAND : 1960 Patient Address: [address] [place] [address] Primary Care Provider: Name: Provider, None Phone: After you are discharged if you find you have any questions, please, call [phone] ext [phone] to speak to a nurse. Discharge Diagnosis: Prescription Information: If you have been given a prescription for narcotics, seek immediate medical attention if you have any difficulty breathing or any sudden status changes such as confusion and sleepiness. If you or anyone you know is experiencing suicidal thoughts, mental health, alcohol and/or drug addiction problems; contact the [facility] 05/04 Crisis Hotline -Kqlq 4HPYZ zk 127424. If you received any narcotics, sedation, or any other medication that causes drowsiness for the next 24 hours, unless otherwise directed: ? Do not drive a car. ? Do not operate machinery such as power tools, lawn mowers, drills, sewing machines, or stoves ? Avoid alcoholic beverages and drugs for allergies, nerves, or sleep ? Do not make important personal or business decisions or sign any legal documents [facility] would like to thank you for allowing us to assist you with your healthcare needs. The following includes patient education materials and information regarding your injury/illness. NOEMI BRAND has been given the following list of follow-up instructions, prescriptions, and patient education materials: Follow-up Instructions Medications During the course of your visit, your medication list was updated with the most current information. The details of those changes are reflected below: Medications to Continue That Have Not Changed Other Medications acetaminophen-butalb ital (acetaminophen-butal bital 300 mg-50 mg oral capsule) 1 cap(s) Oral; as needed as needed for headache. aspirin (Aspirin 81 Chewtab) 1 tab(s) Oral (given by mouth) every day. atorvastatin (Lipitor) 80 Milligram Oral (given by mouth) every day. baclofen (baclofen 10 mg oral tablet) 1 tab(s) Oral (given by mouth) 4 times a day. buPROPion (buPROPion 300 mg/24 hours (XL) oral tablet, extended release) 1 tab(s) Oral (given by mouth) every day. cholecalciferol (Vitamin D3 125 mcg (5000 intl units) oral tablet, disintegrating) 1 tab(s) Oral (given by mouth) every day. famotidine (famotidine 40 mg oral tablet) 1 tab(s) Oral (given by mouth) every day. ferrous sulfate (ferrous sulfate 325 mg Tab) 325 Milligram Oral (given by mouth) 2 times per day. folic acid (folic acid 1 mg oral tablet) 1 tab(s) Oral (given by mouth) every day. gabapentin (Neurontin 300 mg oral capsule) 1 tab(s) Oral (given by mouth) 4 times a day. galcanezumab (Emgality Prefilled Pen 120 mg/mL subcutaneous solution) 120 Milligram Subcutaneous (under the skin) every 4 weeks. levothyroxine (levothyroxine 50 mcg (0.05 mg) oral tablet) 1 tab(s) Oral (given by mouth) every day. loratadine-pseudoeph edrine (Claritin-D 12 Hour) 1 tab(s) Oral (given by mouth) every day. metoclopramide (Reglan 10 mg oral tablet) 1 tab(s) Oral TID before meals. montelukast (Singulair 10 mg oral tablet) 1 tab(s) Oral (given by mouth) once a day (in the evening). naltrexone 2mg qhs. omega-3 polyunsaturated fatty acids (Fish Oil) 2400mg daily. pantoprazole (Protonix 40 mg oral delayed release tablet) 1 tab(s) Oral (given by mouth) 2 times per day. QUEtiapine (Seroquel XR 400 mg oral tablet, extended release) 1 tab(s) Oral (given by mouth) At bedtime. senna (senna 17.2 mg oral tablet) 1 tab(s) Oral (given by mouth) once a day (at bedtime) as needed for constipation. Template Non-Formulary (Compund medication with Biotin) 1 tab(s) Oral (given by mouth) At bedtime. Template Non-Formulary (Compund medication with Biotin) 2 tab(s) Oral (given by mouth) every day. valsartan (valsartan 80 mg oral tablet) 1 tab(s) Oral (given by mouth) every day. warfarin (Coumadin) 5 Milligram every day. zolpidem (Ambien 10 mg oral tablet) 1 tab(s) Oral (given by mouth) once a day (at bedtime) as needed as needed for insomnia. It is important to always keep an active list of medications available so that you can share with other providers and manage your medications appropriately. As an additional courtesy, we are also providing you with your final active medications list that you can keep with you. acetaminophen-butalb ital (acetaminophen-butal bital 300 mg-50 mg oral capsule) 1 cap(s) Oral; as needed as needed for headache. aspirin (Aspirin 81 Chewtab) 1 tab(s) Oral (given by mouth) every day. atorvastatin (Lipitor) 80 Milligram Oral (given by mouth) every day. baclofen (baclofen 10 mg oral tablet) 1 tab(s) Oral (given by mouth) 4 times a day. buPROPion (buPROPion 300 mg/24 hours (XL) oral tablet, extended release) 1 tab(s) Oral (given by mouth) ever (more content not included)... [facility] MAGR Intraoperative [facility]20[facility] Intra-Op Record Summary Primary Physician: LINA SCHWAB MD Finalized Date/Time: 02/04/24 13:04:17 Pt. Name: NOEMI BRAND CYNDI Reddy/Sex: 1960 FEMALE Med Rec #: [id number] Physician: LINA SCHWAB MD Financial #: [id number] Pt. Type: D Room/Bed: / Admit/Disch: 02/04/24 10:38:56 - Institution: Case Times MAGR Entry 1 Patient In Room Time 02/04/24 12:55:00 Out Room Time 02/04/24 13:06:00 Anesthesia Start Time 02/04/24 12:58:00 Stop Time 02/04/24 13:04:00 Surgery Start Time 02/04/24 12:58:00 Stop Time 02/04/24 13:04:00 Last Modified By: Luz Marina Huber RN 02/04/24 13:04:08 Case Attendance MAGR Entry 1 Entry 2 Entry 3 Case Attendee Ev Bailey RN, Santos Villalobos RN Role Performed Track Coach Track Coach Crayon Painter Time In 02/04/24 12:55:00 02/04/24 12:55:00 02/04/24 12:55:00 Time Out 02/04/24 13:06:00 02/04/24 13:06:00 02/04/24 13:06:00 Procedure Radiofrequency Radiofrequency Radiofrequency Ablation(Left) Ablation(Left) Ablation(Left) Last Modified By: Luz Marina Huber RN, Luz Marina RN Cecile, Luz Marina RN 02/04/24 13:04:09 02/04/24 13:04:09 02/04/24 13:04:09 Entry 4 Entry 5 Entry 6 Case Attendee Mili Gordon RT (R) Magy Pantoja Hunter CST ARRT Role Performed Ware Server Ware Server Scrub Personnel Time In 02/04/24 12:55:00 02/04/24 12:55:00 02/04/24 12:55:00 Time Out 02/04/24 13:06:00 02/04/24 13:06:00 02/04/24 13:06:00 Procedure Radiofrequency Radiofrequency Radiofrequency Ablation(Left) Ablation(Left) Ablation(Left) Last Modified By: Luz Marina Huber RN, Luz Marina RN Cecile, Luz Marina RN 02/04/24 13:04:09 02/04/24 13:04:09 02/04/24 13:04:09 Entry 7 Entry 8 Entry 9 Case Attendee LINA SCHWAB MD, Melanie N Gonya, Kellie N RT (R) ARRT Role Performed Surgeon - Primary Ware Server Ware Server Time In 02/04/24 12:55:00 02/04/24 12:55:00 02/04/24 12:55:00 Time Out 02/04/24 13:06:00 02/04/24 13:06:00 02/04/24 13:06:00 Procedure Radiofrequency Radiofrequency Radiofrequency Ablation(Left) Ablation(Left) Ablation(Left) Last Modified By: Luz Marina Huber RN, Luz MarinaLuz Marina Cardozo RN, RN 02/04/24 13:04:09 02/04/24 13:04:09 02/04/24 13:04:09 Surgical Procedures MAGR Pre-Care Text: A.20 Verifies operative procedure, surgical site, and laterality Im.150 Develops individualized plan of care Entry 1 Procedure Radiofrequency Ablation Primary Procedure Yes Primary Surgeon LINA SCHWAB MD Modifiers Left Surgeon Comment LEFT THORACIC Start 02/04/24 12:58:00 INTERCOSTAL RADIOFREQUENCY ABLATION T7, T8 Stop 02/04/24 13:04:00 Anesthesia Type Local Surgical Service Pain Management Wound Class Clean Technique Details Closure Technique N/A Entire procedure No was performed via laparoscope or robotic assistance Last Modified By: Luz Marina Huber RN 02/04/24 13:04:10 Post-Care Text: O.730 The patient's care is consistent with the individualized perioperative plan of care General Case Data MAGR Pre-Care Text: A.350.1 Classifies surgical wound Entry 1 Case Information OR MAGR OR 02 Case Level None Wound Class Clean Specialty Pain Management ASA Class 2 Diagnosis Preop Diagnosis THORACIC PAIN Postop Same As Preop Yes Postop Diagnosis THORACIC PAIN Blunt or No Is the procedure No penetrating injury considered occured prior to Emergent/Urgent? the start of the procedure: Last Modified By: Luz Marina Huber RN 02/04/24 12:55:02 Post-Care Text: O.760 Patient receives consistent and comparable care regardless of the setting Time Out MAGR Entry 1 Procedure(s) Radiofrequency Ablation(Left) Time Out Checklist Verifications Team Introductions Yes Confirmed Identity, Yes Completed Procedure, Incision Site, and Consent(s) Presence of Yes Site Verification, Yes Necessary Site Marking, Site Procedural Marking Equipment, Devices, Alternative, and/or and Implants Site Marking Verified Exception in Accordance with Facility Policy Anesthesia Review Antibiotic Received n/a All Anesthesia Case does not involve Within an Concerns Addressed an anesthesia Appropriate Time professional Interval Prior to Surgical Incision Surgeon Review Anticipated Blood Yes Expected Case Yes Loss Risk Addressed Duration Addressed Critical and Yes Non-Routine Steps to be Performed Addressed Nurse Review Equipment Yes Fire Risk Yes Checks/Concerns Assessment Addressed Completed and Interventions Performed Diagnostic and Yes Sterilization n/a Radiological Test Concerns Addressed Results Displayed are Appropriate and Labeled Other Concerns n/a Addressed Time Out Ev Bailey RN, Time Out Time 02/04/24 12:57:00 Participants Luz Marina Huber RN, Santos Mistry Gonya, Kellie N RT (R) CEASART, Magy Pantoja, Hernando Salinas LEATHER STRETCHER, LINA SCHWAB MD Last Modified By: Luz Marina Huber RN (more content not included)... [facility] MAGR Preoperative Recordon 0 02-04-2024 MAGR Preoperative Record MAGR Pre-Op Record Summary Primary Physician: LINA SCHWAB MD Finalized Date/Time: 02/04/24 12:57:40 Pt. Name: NOEMI BRAND /Sex: 1960 FEMALE Med Rec #: [id number] Physician: LINA SCHWAB MD Financial #: [id number] Pt. Type: D Room/Bed: / Admit/Disch: 02/04/24 10:38:56 - Institution: Pre-Op Case Times MAGR Pre-Care Text: Patient will be optimally prepared for surgery. Patient is free from s/s of injury. Provide information to patient/family related to plan of care. Verify patient allergies. Confirm identity and verify consent before the operative or invasive procedure. Entry 1 Patient Arrival Time 02/04/24 10:45:00 Preop Departure 02/04/24 12:50:00 Last Modified By: Carly Mccall RN 02/04/24 12:57:39 Post-Care Text: Patient is prepared mentally and physically and is ready for surgery. The patient remains free from s/s of injury. Patient/family express understanding of plan of care and participate in decisions affecting his or her perioperrative plan of care. Allergies documented appropriately. Patient identifiers and consent correct. General Comments: Pt to PSW. Pt had cold last week- only occaional productive clear flem now Pt denies SOB, sleep apnea, diabetes, CP, or pacemaker/defibrilla tor. Finalized By: Carly Mccall RN Document Signatures Signed By: Carly Mccall RN 02/04/24 12:57 [facility] Patient Handouton 02-04-2024 Patient Handout [facility] Coding Summaryon 02-03-2024 Coding Summary HTMLBase 64 LgbbdqzbLEl5fWh+PGhl YWQ+ML8TUUMlV70zrINy bL8yZ2SKBGeWYnydPBQV AGsYKzUvczBdZW7tvNLz ZXJu IC8+MM2dDLAfQkqoaNFz i9O4qDL5N01wwa9qOOhk zMF7EXOrUgCbevdas2hs jVy9WBcgSyohElBn JKEopP34PPQ0mJ20Qx23 vMAcgAVkd1dtsBo8JfQz DBDsEHH1qRqmYFalr4Wl MRQvD02poJSpk1E9 IGNvbGxhcHNlOyBlbXB0 kB2cKKefllhhy9mthlsw Puu8kk19hTWex0W0xKS9 V5DfntL9YKFrrPVm KcgmmPAQvW2yqzcpj0yb hwabEsLwZIMzRJn3HNm2 RHPrwIddDvKgRD09LGI6 ORTjwvTcX1KmGIIg zMnaIhP8y9E0Nu4SD9MO LxviG5HIERTRNNrhbRB+ CO32jk89E0GcFmumZnj2 BZLdNHD7fUL7lI3z PYThWTzex8B3qBC1G9Qa flJyfz6vz5ilUMRwQSba I38rlHFoc3H9XFOeeIQ8 XRWetUtqCdTlzB73 Oyc+SRMhtYxbb2CmNbjy d6vsa3mmxLd0IdnjHHHp xbPynXfmYMC0h0JmFn9h AEZyqWN6qES2fW0q LhBlDfR7LYqfZ691EnPt fDIyLxpuI58eS1WhnGT+ SRNdNxi0PGHltMkmDH2m A8PrHQLkjrltdJXc sSxkWI5dBODzqndxDTRg sR6oMAToM6x9WhRkWeU9 DPmtM2ZqSYIwblsnCz12 yG9tEhAmEhG0SFsm U6DevgT8ZGXwnKUwJVkr KTS0H52cl0U2JUJgBPIs YPC5xZE9gF1kwAbqxleo bGVmdDsgdmVydGlj KPopVNurY707YSVjtPmh PkNvZGluZyBEYXRlOiAg MDUvMjMvMjAyNDwvdGQ+ HRSsTPQ6aPggZBRf cSHxDUiqQc1zfQmuvJem KP7bZPMjoggnEGGxqP4t WKAgrUXdgVewGC6fSNIb jcezt783MfJfNUD4 ZWEevCVcJ8TjpY7eXmLa JNHhKVYtI4DymMDxVSut H195NSonCoU2AZYytmRv C3IwPMDlqHaoOpO6 u0C9Jm9Ys8RbqfphC1Rb hCMoXrKuZorpHUc3Q2Rd PjwvdHI+WY62KSKtIH17 UUq2JIJ1gXkkCQhv MONiO8LgfV8yIbLuNGLc ZGRkOyc+PHRhYmxlIHdp ZHRoPScxMDAlJyBzdHls UJ2jRw6iWPKyDBSk kZtdkJUpMwChq1npRPKf SOatDV2tbBjyX6JnqUU2 UYKqx8n1Yn40J51vB6Ts dXA+HSPttVE3uPB2 vA3nLsGlGrS8RYxwU448 SjLgaAPmQojxc9hwu9jq oOk8GnI2MHKkmeMngKxp EGF9r2NbCd67N52m IHdpZHRoPSIxNSUiIHZh fBookg3vwK3eBw8+PGNv lWY0jXE2iY0mWdMcSpJ4 BMiwI142VtWnnCUx Ybsvm9ama0vmnMd8PfZp QCTnscJgaFmxHTV4z8Do Em75K6GmcWtbp5CvMix0 xf57zPJvx6F5sPU0 D2PpMBJnwjpoxKBmrDtr KI6pSQJzygmcBWEfgZ4a CHZyK9i8SwMlUtF3QPpk L8AzgdC4WVRykYVp TXGxmEYNcT7ykioag2nh dhqcLjMpPGLzHUv7XVr2 GVJdoNydKkMyVAN8GnF8 DSX4kBJigU6alAkr pkueqE1uQyk+QCU5qQBn jNYQGT5uYcuagHB+PHRk QTL3mVeuGMivKMDorV6o BQRoR6u9UaQmIlN6 ENnlI5UincQ3BSSeyBDd KTNhlFQSfH5aikdue3py wukvFhEjOURoPBo9MRf8 LWFsaWduOiBsZWZ0 ByK8WHO9qJBjkC8ynQzz fkzmzP8jXha+QmlydGgg YQD4LFu2O5DrDpj0WEYs pZitTN8pcYWjCCyk Rz6quRecmHpyDA8yGKWu qxwrn926JfXbz4grWELb iHDrMDebTHP6C54yy1V5 TFNbMGTuWKK8iUU9 mU0sxLzjdunxuWRpaEzh ksOgfLztASuqODshL098 IHGqySkjFyDfZJi9L3Ly Chm2AMDzjYqoGP4o hHQtJJgtEm7leRbmzGwh UG1yCVTvudfnd559ZqMr t6nfKOOpoYNhQKlkCXA6 A42ro4H1EQBlOYXy NPC7rNW7iR0jaHbfkhjw bGVmdDsgdmVydGljYWwt ORuxP358ZSNwpOsxMkOk tZr9X2AaBdz2ORHk qUlbLQ6nuIIiBJssVs3p tWqvzKxfUJ9eGQMnhnqm e530FnQpi0urZSDfeQKu OTrjPBK1A44it6I1 XCKxHARtZQR7tRI4wH4s bGlnbjogbGVmdDsgdmVy sXvdYBijCGuoW978UQRo cDsnPlBhdGllbnQg GRdyMTv7G2ZkLjmsjKT+ UF32RZReFA68fGCjcKFk f5ateUa2NyUoKWNzBCK7 vQorHSzdf4BfEQKi R97gjPCpn7T5CRUyxBku gDXoBoGpqJN9qD7oXBjh kqroz9hfdkprXhefx8up ys79uK76Q45qHQvt ZHRoPSIzMCUiIHZhbGln vh3uqM9bLe7+PGNvbCB3 xTP9hA5rFGZaPqX1XMod J096EpYylDWnEsew i3umr5ywpGm3TlJ8YSLc jnLeqNepVFQ0p6FeWv29 F25hSOtnGPVdCWUdZRCw HJXcqNxyqq4wrB9c Ii8+TEEkhXY8eUJ0rN7r PbAtOaL8XBikZ939LrOd eGCeNxgtX82qR6DfhTY+ DOUyPxb1LEHraMks WA9csYTeOIxbLt7wBHR8 MsFdEvPeQVqnO9AfWZMh tawydviogZT6ZCGxFTAs nS79Uo3akQxlISCm xKJZaJ1czgtxs3ieczoz IhCiDQCaCXr1RBq9ROKp wUmbUbQoXBH2XcR2NYK0 bIFflQ7vdOcnykbz jS8xZ2RjKSPdawemAp56 tQ1iOrInNfQ3AEmyMup+ MAiQKZtxJ8AXKLfkFK2U NGCWTY94EO21oGCn s9N8zZJ1D4JiTPLuhinr kfobnQU6WZPjIBDuoL81 kKDtOUroOj7uj9R8l456 LESnGIDeaJ17Zn3y pWlyQWAoxTRRqP7tpvce t2vzhgmbGvGcKMImMYs5 YEe4MMYafGhqShLxMVN9 ZmR7YOX5wDNgvS8y rAxivmwugN3xIuu+MDkv EiNzNGa6CDtjxHQ+PHRk UYQ3rGzmBIedHLTnlT0y YEWeV6q9OkGpYlC9 HXtgD1WrFPPjigfxFl24 lL8kJjIoKaK4XPjvD1Do uoJ0MGXnjJSrEOakUGY9 E51nd6O9WPBwJLXy KEF9nLC0qX4ihUrxwhxs bGVmdDsgdmVydGljYWwt UZytM982BHBveItjWvLu ZRiaGRAaZC40RU51 xKUyg5C6kQY5J3QnGGGi jynjejwkqOT0KWItOSHu hZ09iMTtEEapWt4bf8H8 j923RAIlJEKxtQ41 Hw2qnOuiCLHnfVBNzS6p jldbr2ujxapeMhTeNTTb ZXw1YJh6CANimFjxErWo VYY1AeM1SQI7uGUt oL0doOuggthakU4iOkm+ KaSQGFqRWB51LH63jDRn i0S7fNT0Z7RbRVHdpsgz nzgceRT7NEZfAXBc oK66iQRnYNxqCr7qk3P9 e145BNFuNIOjbC79Gy5b wJtnYRHjnTJKmR9xvogi w7nbwtepXtLbNLJk IRh1TKp2DACfwVizFuTv OFL6XbV1YHW1kLRidL9u sIlmrmkwwR5sYdy+T1A8 R0DgTcakbIV+PC90 FWXcSO86cYMngIHmt1je eDq2QcGyYIRyEHW4xOxy GQmly2KxOMUpF50rnWUl a8F1ILXswMpjqBAr PuWbbFJ9zP1cIDmoqsqp f0jdklalVhset4zlef29 fT18K22bGLliQYSuMDQb GFSgWZOblDwxli5d oR1vRm4+USNjlII7yNH4 sS8zWkSfGxR2KBccA646 UmBljMPaCirda6xjo9tl bUm4LyGfMPCtuyXe tBohGKW4r7GzUp52B04h IHdpZHRoPSIyMCUiIHZh rYokgj8vzE2fDv9+PC9j q7ofoz78nU83cXP+ VTOxGGT9iVboPGgqCMKx jH7hMCcgEfC7BQHrTvWh bG53eRFgZDdwMz2ezBmz wLhiNW3oRYNvbiio n953DrXus6trTSQxvTTf YDrhEAO7I17lf7E6MBEd HGWzSSS8qRZ6yT3stBun bjogbGVmdDsgdmVy zIqaKFcdHXmzE831TMAr zGjtVuSdkZKuC0kpeuQO OC2qIhahiIM+PHRkIHN0 pNnwNRasRXVfoG4p XUDyZ5q4QqJbMeP6LOxg Z4CfmxF5CHHuwBWkNJOi oRVFyF9abczdf4keqdcm GzCnNWWqOJz2OYc0 XUTfmOvuInIbKII3VeK7 WIU9vGOcyA1yrDpyogzk gY6wZgx+RklOOjwvdGQ+ VTUmQRU9sEggKTki WVEkmO4mFQZlQ5n7UdSa MoU8LRbkR7CrtbB6VWMr jCUpIOSuiCHKuU4ytbqo v7tliinhSgTwFZIr MMq6ZBo6UOXzlDfkNcTb EDG5JiD5RRN0ySAzlC3t aCnzmvpbdP7xZhn+TVJO OjwvdGQ+PHRkIHN0 jAlkHNqlHZByhM6lWEFj W2u2MqVePjP2CJdkR3Qp ngH0IXXknCOeRYQqbCBX dW3jewwav2wfsczw SiPjLNTyDCq4RIq9EYCw wHzqGaZwQRW5FnT5KQQ4 kKTheC3fxWzmlwigzG7m Oyc+VCA1LGH1TU80 KS56H7KmJywhlLTcvYV+ PHRhYmxlIHdpZHRoPScx SKUkVtLpvIggJC6qEu4h ZGVyLWNvbGxhcHNl OiB (more content not included)... [facility] Progress Note - Provideron 0 01-31-2024 Progress Note - Provider [id number] [facility] Coding Summaryon 12-30-2023 Coding Summary HTMLBase 64 ZbbrcjksJYr8fYw+PGhl YWQ+MO4QUWNsQ66wyJTy kX0sC3WISIvVJpwiMCOJ IQtGStMhpfVoFM4vhOJp ZXJu IC8+GN3gBOJaZkrwzUQc s9T6hCS3R42vzb8bSFgc xIF0CYYkDzWcfullk5ye mEg4UZouNpoaPoBz YMDxuG21QHQ2vQ76Nz70 bJUcaVPjy8rpgSz5SkNa IYIiGAE4vVyeVDbyt3Dc YJXfI80kuAXlt3K2 IGNvbGxhcHNlOyBlbXB0 qQ1cKWygihacv4tkmzed Tgj7kc26zXCrz9S7hIC5 F4EnfuJ2SJMypCYc CizczMVCcX0jrjuvy4vv ecvlUkRfKOCsTFv6QBf4 EOJrhQcxBjZvCN76GRJ0 NGXjjcTqD3EyYXHh zWhaAxK7b8S2Di4WP5JJ MbbnZ1MKAIMKXWmspCD+ UE92ac64Q0CzOzziVcd7 VDWcOOZ5mRI4gQ8p DIMrVTytb2F2lXG1X6Ct fnMfeg5ou5luDVJrPCag W22zsVAlj9B8JBLfbIX8 RDBjhIwdUaRpnQ27 Oyc+FCKbjIibc4PtNacm y3jxg3rwvCe4NipcLZDz koDuhRefZJC1z2YtSa8a WIBdbPM5hRP0dX8u UlYsJfO6JPwrK786BoUe hDGsHxryI83dE0MopZZ+ YLFgBdp8BDNceDdeQN9q G1UaQPJcofluvKBo jPgbQI8eMLVgbkkgMCAf tY9aFXYeJ4t8WmThUvB3 OCigN6PqDOKidlcaXq42 xC9qZgMaEiJ9MIpw P4KjgsM7MLFlnPWzWDit BDB9Q16ah3L1JUOoGUHg CZK2iWZ5jT7lfTusmude bGVmdDsgdmVydGlj IJigKSmmQ350YDVwcLmp PkNvZGluZyBEYXRlOiAg MDQvMTgvMjAyNDwvdGQ+ EUXiHPZ7qKmzRCCo sUSaBLqwJt5ubBqhdAnw KW8rTPGlxluiKSCtqP0v ZCUfrVAmkRsxOB2qMBLp gvwqh589NaHtKVU0 QSAkvPGhO2LbrX8tHlGr ASHcKVRiN0MazTMhMXlz K447IEqsIcV3KSErqqNx F6HsDVNlcRtaIjY7 c3F1Il5Hg9WjqjreY0Jl xQMkJyFiPmedIVx3T7Az PjwvdHI+GA65SISvNI82 DFh0RPV6kLepBSpt OXYgB0GwyB1uReRoQIDb ZGRkOyc+PHRhYmxlIHdp ZHRoPScxMDAlJyBzdHls XC0mBf2gHODkTQSl ySxxmAXiQvZch7neSIAx FSviIW6bdBotU2JeyDB7 DCRrm2v7Wq98P65dK4Za dXA+VKUyvOD0bFV1 sI9vKjRdEbG2PKzcZ983 TtSpxAPpPuhgx1rym7to jQl5RsV6KWHjqsHatJhm IQT2b6CvBj71D05o IHdpZHRoPSIxNSUiIHZh wEvnbz3lgT4mMv7+PGNv wDZ0tVL0zO3nGiHaFkJ5 WZuvE976ZwFmyKEw Kljse6aff6adhUx1YcBt UPNuadEbyTmyODA0t1Zz Mr82T7FolOmmz5VwEiy2 nz74iNVqc3T6lIN0 K1JlDOXoufepmGGbmJmv MD0eGVTiblkgSQOboH8y QTQwO6y1AkInUfX7RQee U2MswiZ0RXAsrYSj URKszVRZlO9jexusp2sx lbysCbZvUDCqRWg3PRw0 OMXfiLwoAqEdORV6LkZ3 QFS4mGXbvP2vtOpl fznlxE9qNjz+BTI4wIEg bMMAIF9wPvsrrCH+PHRk APR3cNwhERsrVMMelE8w CYJqV9s3VoSpJkQ0 ZHydE3CbrtH7WWUnvHOw RBQmtARZdV5ytowax4lo bemnAaFmWTRqSEm7ABv5 LWFsaWduOiBsZWZ0 MnZ3GXP0vMGorL2kkSkk fgrgzV3uFje+QmlydGgg GWC6WZb2Z0ChSxg7WAZy gWntPV1kaKMyMPdu Le5pjHqjkIfwXY5qDGLq pbdcb784ZpWtj2wtDLXb cOGtFGuvGQQ0A72fl3S8 MOSaHPFoYTZ5kDA3 nM1ebMndcuemlNNcqEwe olPiuYvbNSboOUndV921 YUTojLjfJfUtBWt6L2Ut Acr8RRFrrEzmFZ5w bYVxFRgcVb1tkHnkfUxr WD2cBYLecvhbj170MsTh y3dtTHMumOFvWBxmPMT6 B02ji0V3YKYyVERi GOR7pUC4sN8myCclvjpa bGVmdDsgdmVydGljYWwt QThnE538WOHasRygJlRn yGt2J8CzBoj7TGWi nPvmSQ5clKUpIBpzFo1v gTtcwMdvOE8fSEMrwppg i314QgOgn2iiVIUczRMt IZcuDZL3D14ch4Y2 CYUgHGRePOO0vXY8aK4r bGlnbjogbGVmdDsgdmVy jJcnLWwjLQinY656GGHa cDsnPlBhdGllbnQg ARhaZCk8O5LkKrymmBE+ GJ53QQAiXI18vFKzdCCs u6xrbZv8QjJfFATyFWA0 mFktFXbyx9HlXEHh W90cjPJhp4S1OQMtmGbi yQUuWrWgeQA4uI4qJWlm gknvk3yvrtlwBqhwu9lm xp12yE82C97nUHgn ZHRoPSIzMCUiIHZhbGln mk0kzR8vEr9+PGNvbCB3 fHD2eH8oOSOpVtV5PFhw S064LkVmbQDxZsmq k9qsd5kdkJj1XbR6QNPz ntClpSnkXIU8d4WhMm39 O28mPCojHWQhNEFjDREo YHTrbVsiko4dhB2n Ii8+UZAljNI2wQC7xE9g TxEqLlS5DCfqO148LnYf eMYgCdlzV94fG4JcxXO+ OBRpWqj3SOZbqWrp OS7twKHdQIhpRb3tONB3 LgIbUlTzGNfbC6UuQDEl ubemocvdfDP3PSEbUITo xP28Ot8syHsiLJDh uXLVcY4rowxhh8ekkdpc NiWzCKFbSMv3QBy3YGTj aBaoFiKaBMD7MeZ4RLJ0 zETmkJ4mqRpczoje lL5hJ1WrXZNnyqflVo68 dO6kVdUiNmF4MEekLoa+ MSpJULstR3YFKOjsBT6B ECMMCX85WC28qQCh h9A9tIE3X2ZcRFXsdwwe lgnjyCG2EGPhMSXipX19 dLDaKJqkMj2al0T1d834 EOCjBGVjnP28Kd4r mUdlAUPahCMSyP0lpneb g4aexhgwMySlAPEsFDi3 XHq7HECkqHizWzHvPVV3 DlB6FIZ2eMHzhD6p bCaebrzehO2xTav+MDkv EmKqVEq1JJxtpME+PHRk VJV4gFrrQDbbIQGbxF9v OWRuD8d4AkFzBsV9 BIbcJ5CqYHWinungWh37 fD7lKwMbUmL2DApuL1Lk hlE1ARKzgFXnLPceUSU9 U49da1L1QBJsYQFv XGN2gPP9wY8aoAvjrukg bGVmdDsgdmVydGljYWwt QZewM084SAQnxLevIfMq PPrbISZrCV85FU14 hTAsm7I8dSN2M1BsJGKm jglbcbttrWP3DMFgOVQy nW93pXBiTQywSj4hg9J1 s540YHUyAWIraM13 Kt9wrWqgFKDfqAJEbY7k qsjik9ssmvayLvQcSNOe ESz3EPu9MVJnjZrkZxNc LFS2AqC6MTU0nRWb jF9icZtrinllvO4dKsi+ AjHPJLzMMT97MD06yPSn t3M4bIO2I0MpTDWyxfct jaxbqUV4VEHwORSl pH30aLLeKSbwWq6mc6Q1 u713DRCoQFMzzL56Ax2a qMlrNNBakYVTvY5jemmp e4lcjysyGtSpNYAa ICg7TSq2DKIuqOcnJtPj BEZ3DoL3QXV9sJCcuX4j rIiizpschT3iNuu+RGF5 DAP4ywjgiyr6E0Km PjwvdHI+ZC18JSJyVF41 hTZayDFvl6scpHa2QhBp WZPkAZX8xHbpVNpyy6Xz PIYmT81gtZQsd4R6 IGNvbGxhcHNlOyBlbXB0 wT3xYIjoiolwf8yvewli Tqwhf4yzxa83uP74G62s IHdpZHRoPSIzMCUi LGYhwGesdi4wxP1bUm7+ KIUigXB3pXS6gI6rUtZv MuX0WUfnC669GoJzbZBk Crtpk0upi4gzsWv6 IjIwJSIgdmFsaWduPSJ0 t8OvCx39T43yEHjaZHAs BCAcUHNqSFTgoJarqz2k rQ1gSn8+SB9nt3fb ll81fS32eXQ+PHRkIHN0 tYpmQEwnRMBvbT7yGRyo EtZ7OCDjTqEitW69aMWt UAslKd2mkEoklQmk OL1bHESuwjfip401SwLt b0gzLGKaiRNsNOsjJKQ9 I22rv3W9TAMsMJBsKKA3 zRI9gX7phIkpwxqf bGVmdDsgdmVydGljYWwt YLhdR625BEOdpAnxMuIo fSRiV3gwwoAYYO1dIsfm dGQ+EXVrNDA0eVvo JFbpCPImjZ7oEIPoH2h4 YmYfNcL6FIxwZ6UfexZ9 OSPxqCXdFVCudSKNdB5f rijrn0kknkyxXuTl JGYvWRd5ZHn4NIMmgFco UpHvBBA7MnT9EXF5gEDl bS0bfJbdlgyyhP2cOcl+ RklOOjwvdGQ+PHRk NLS2fZgpSIrlMJQgtV6x TZJyB5t3DuOzYwP6QFpz R2VkbvB8IDBphJPsTCUd dPHCnJ2yzbatg2ij scqqLgIvNBTpULd6WFy0 YYSupIxlEtXlUIM4PmD5 TMH7uSXluS1bsQtbhlcu gI5iXmu+TVJOOjwv dGQ+MXBiMWQ3yCccSQem DUOmsO3hYYAlZ7x2KcRd XpB6CCgnN7DeayL6JSWb oLIlYUHomYMDdA4c agmka5uufpcqHnSmDOPr VHr9QFv6LZSvkXrtIfSq EGW2IiI4GII5eZOfyA7y eJulxdbufM6bSpu+ ASY0DMI0CO27VK31A1Xn PjwvdGFibGU+PHRhYmxl IHdpZHRoPScxMDAlJyBz xJohTT5mJm9pKSKs LWN (more content not included)... [facility] Consent Formson 12-27-2023 Consent Forms [id number]. [id number] [facility] Inpatient Patient Summaryon 12-24-2023 Inpatient [place] [address] Patient Discharge Instructions Name: NOEMI BRAND : 1960 Patient Address: [address] [place] [address] Primary Care Provider: Name: Provider, None Phone: After you are discharged if you find you have any questions, please, call [phone] ext [phone] to speak to a nurse. Discharge Diagnosis: Prescription Information: If you have been given a prescription for narcotics, seek immediate medical attention if you have any difficulty breathing or any sudden status changes such as confusion and sleepiness. If you or anyone you know is experiencing suicidal thoughts, mental health, alcohol and/or drug addiction problems; contact the [facility] 05/04 Crisis Hotline -Text 4HOPE rl [phone]. If you received any narcotics, sedation, or any other medication that causes drowsiness for the next 24 hours, unless otherwise directed: ? Do not drive a car. ? Do not operate machinery such as power tools, lawn mowers, drills, sewing machines, or stoves ? Avoid alcoholic beverages and drugs for allergies, nerves, or sleep ? Do not make important personal or business decisions or sign any legal documents [facility] would like to thank you for allowing us to assist you with your healthcare needs. The following includes patient education materials and information regarding your injury/illness. CATHIE NOEMI HANNA has been given the following list of follow-up instructions, prescriptions, and patient education materials: Follow-up Instructions Medications During the course of your visit, your medication list was updated with the most current information. The details of those changes are reflected below: Medications to Continue That Have Not Changed Other Medications acetaminophen-butalb ital (acetaminophen-butal bital 300 mg-50 mg oral capsule) 1 cap(s) Oral; as needed as needed for headache. aspirin (Aspirin 81 Chewtab) 1 tab(s) Oral (given by mouth) every day. atorvastatin (Lipitor) 80 Milligram Oral (given by mouth) At bedtime. baclofen (baclofen 10 mg oral tablet) 1 tab(s) Oral (given by mouth) 4 times a day. biotin (biotin 1000 mcg oral tablet) 2tab(s) Oral Daily and 1 tab at night. buPROPion (buPROPion 300 mg/24 hours (XL) oral tablet, extended release) 1 tab(s) Oral (given by mouth) every day. cholecalciferol (Vitamin D3 125 mcg (5000 intl units) oral tablet, disintegrating) 1 tab(s) Oral (given by mouth) every day. cyanocobalamin (Vitamin B12) 1 tab(s) Oral (given by mouth) every day. famotidine (famotidine 40 mg oral tablet) 1 tab(s) Oral (given by mouth) every day. ferrous sulfate (ferrous sulfate 325 mg Tab) 325 Milligram Oral (given by mouth) 2 times a day (scheduled). folic acid (folic acid 1 mg oral tablet) 1 tab(s) Oral (given by mouth) every day. gabapentin (Neurontin 300 mg oral capsule) 4 times a day. galcanezumab (Emgality Prefilled Pen 120 mg/mL subcutaneous solution) levothyroxine (Synthroid 50 mcg (0.05 mg) oral tablet) take 1.5 tab daily. loratadine-pseudoeph edrine (Claritin-D 12 Hour) 1 tab(s) Oral (given by mouth) every day. metoclopramide (Reglan 10 mg oral tablet) 1 tab(s) Oral TID before meals. montelukast (Singulair 10 mg oral tablet) 1 tab(s) Oral (given by mouth) once a day (in the evening). naltrexone 2mg qhs. omega-3 polyunsaturated fatty acids (Fish Oil) 2400mg daily. pantoprazole (Protonix 40 mg oral delayed release tablet) 1 tab(s) Oral (given by mouth) 2 times a day (scheduled). QUEtiapine (Seroquel XR 400 mg oral tablet, extended release) 1 tab(s) Oral (given by mouth) At bedtime. senna (senna 17.2 mg oral tablet) 1 tab(s) Oral (given by mouth) once a day (at bedtime) as needed for constipation. valsartan (valsartan 80 mg oral tablet) 1 tab(s) Oral (given by mouth) every day. venlafaxine (Effexor XR) 50mg 1 tab in morning and 1 tab at noon. warfarin (Coumadin) 5 Milligram every day. zolpidem (Ambien 10 mg oral tablet) 1 tab(s) Oral (given by mouth) once a day (at bedtime) as needed as needed for insomnia. It is important to always keep an active list of medications available so that you can share with other providers and manage your medications appropriately. As an additional courtesy, we are also providing you with your final active medications list that you can keep with you. acetaminophen-butalb ital (acetaminophen-butal bital 300 mg-50 mg oral capsule) 1 cap(s) Oral; as needed as needed for headache. aspirin (Aspirin 81 Chewtab) 1 tab(s) Oral (given by mouth) every day. atorvastatin (Lipitor) 80 Milligram Oral (given by mouth) At bedtime. baclofen (baclofen 10 mg oral tablet) 1 tab(s) Oral (given by mouth) 4 times a day. biotin (biotin 1000 mcg oral tablet) 2tab(s) Oral Daily and 1 tab at night. buPROPion (buPROPion 300 mg/24 hours (XL) oral tablet, extended release) 1 tab(s) Oral (given by mouth) ev (more content not included)... Normal [facility] MAGR Intraoperative Recordon 12-24-2023 MAGR Intraoperative Record MAGR Intra-Op Record Summary Primary Physician: LINA SCHWAB MD Finalized Date/Time: 12/24/23 08:22:54 Pt. Name: NOEMI BRANDO.B./Sex: 1960 FEMALE Med Rec #: [id number] Physician: LINA SCHWAB MD Financial #: [id number] Pt. Type: D Room/Bed: / Admit/Disch: 12/24/23 07:05:36 - Institution: Case Times MAGR Entry 1 Patient In Room Time 12/24/23 08:02:00 Out Room Time 12/24/23 08:24:00 Anesthesia Start Time 12/24/23 08:05:00 Stop Time 12/24/23 08:22:00 Surgery Start Time 12/24/23 08:05:00 Stop Time 12/24/23 08:22:00 Last Modified By: Luz Marina Huber RN 12/24/23 08:22:11 Case Attendance MAGR Entry 1 Entry 2 Entry 3 Case Attendee Ev Bailey RN, Erica RN Stayancho, Jenna RT (R) ARRT Role Performed Track Coach Track Coach Ware Server Time In 12/24/23 08:02:00 12/24/23 08:02:00 12/24/23 08:02:00 Time Out 12/24/23 08:24:00 12/24/23 08:24:00 12/24/23 08:24:00 Procedure Radiofrequency Radiofrequency Radiofrequency Ablation(Bilateral) Ablation(Bilateral) Ablation(Bilateral) Last Modified By: Luz Marina Huber RN, Erica RN Baumer, Erica RN 12/24/23 08:22:24 12/24/23 08:22:24 12/24/23 08:22:24 Entry 4 Entry 5 Entry 6 Case Attendee Vikas Cody RT (R) Hernando Salinas CST, THOMAS F MD ARRT Role Performed Ware Server Scrub Personnel Surgeon - Primary Time In 12/24/23 08:02:00 12/24/23 08:02:00 12/24/23 08:02:00 Time Out 12/24/23 08:24:00 12/24/23 08:24:00 12/24/23 08:24:00 Procedure Radiofrequency Radiofrequency Radiofrequency Ablation(Bilateral) Ablation(Bilateral) Ablation(Bilateral) Last Modified By: Luz Marina Huber RN, Erica RN Baumer, Erica RN 12/24/23 08:22:24 12/24/23 08:22:24 12/24/23 08:22:24 Surgical Procedures MAGR Pre-Care Text: A.20 Verifies operative procedure, surgical site, and laterality Im.150 Develops individualized plan of care Entry 1 Procedure Radiofrequency Ablation Primary Procedure Yes Primary Surgeon LINA SCHWAB MD Modifiers Bilateral Surgeon Comment BILATERAL THORACIC Start 12/24/23 08:05:00 RADIOFREQUENCY ABLATION T7, T8, T9 Stop 12/24/23 08:22:00 Anesthesia Type Local Surgical Service Pain Management Wound Class Clean Technique Details Closure Technique N/A Entire procedure No was performed via laparoscope or robotic assistance Last Modified By: Luz Marina Huber RN 12/24/23 08:22:26 Post-Care Text: O.730 The patient's care is consistent with the individualized perioperative plan of care General Case Data MAGR Pre-Care Text: A.350.1 Classifies surgical wound Entry 1 Case Information OR MAGR OR 02 Case Level None Wound Class Clean Specialty Pain Management ASA Class 2 Diagnosis Preop Diagnosis THORACIC PAIN Postop Same As Preop Yes Postop Diagnosis THORACIC PAIN Blunt or No Is the procedure No penetrating injury considered occured prior to Emergent/Urgent? the start of the procedure: Last Modified By: Luz Marina Huber RN 12/24/23 08:03:27 Post-Care Text: O.760 Patient receives consistent and comparable care regardless of the setting Time Out MAGR Entry 1 Procedure(s) Radiofrequency Ablation(Bilateral) Time Out Checklist Verifications Team Introductions Yes Confirmed Identity, Yes Completed Procedure, Incision Site, and Consent(s) Presence of Yes Site Verification, Yes Necessary Site Marking, Site Procedural Marking Equipment, Devices, Alternative, and/or and Implants Site Marking Verified Exception in Accordance with Facility Policy Anesthesia Review Antibiotic Received n/a All Anesthesia Case does not involve Within an Concerns Addressed an anesthesia Appropriate Time professional Interval Prior to Surgical Incision Surgeon Review Anticipated Blood Yes Expected Case Yes Loss Risk Addressed Duration Addressed Critical and Yes Non-Routine Steps to be Performed Addressed Nurse Review Equipment Yes Fire Risk Yes Checks/Concerns Assessment Addressed Completed and Interventions Performed Diagnostic and Yes Sterilization n/a Radiological Test Concerns Addressed Results Displayed are Appropriate and Labeled Other Concerns n/a Addressed Time Out Ev Bailey RN, Time Out Time 12/24/23 08:04:00 Participants Luz Marina Huber RN, Iveth Anderson RT (R) ARRT, Vikas Cody RT (R) ARRValdo, Hernando Salinas LEATHER STRETCHER, LINA SCHWAB MD Last Modified By: Luz Marina Huber RN 12/24/23 08:04:26 Patient Positioning MAGR Pre-Care Text: A.280 Identifies baseline musculoskeletal status Im.40 Positions the patient Im.80 Applies safety devices Entry 1 Procedure Radiofrequency Body Position Prone Ablation(Bilateral) Left Arm Position Resting at Side Right Arm Position Resting at Side Left Leg Position Extended Right Leg Position Extended Feet Uncrossed? Yes Press Points Checked Yes Positioning Device Pillow, Safety Strap Outcome Met (O.80) Yes Last Modified By: Cecile, (more content not included)... [facility]2023 [facility]-Op Record Summary Primary Physician: LINA SCHWAB MD Finalized Date/Time: 12/24/23 08:29:07 Pt. Name: NOEMI BRAND /Sex: 1960 FEMALE Med Rec #: [id number] Physician: LINA SCHWAB MD Financial #: [id number] Pt. Type: D Room/Bed: / Admit/Disch: 12/24/23 07:05:36 - Institution: Pre-Op Case Times MAGR Pre-Care Text: Patient will be optimally prepared for surgery. Patient is free from s/s of injury. Provide information to patient/family related to plan of care. Verify patient allergies. Confirm identity and verify consent before the operative or invasive procedure. Entry 1 Patient Arrival Time 12/24/23 07:14:00 Preop Departure 12/24/23 07:40:00 Last Modified By: Keshia Mack RN 12/24/23 08:29:04 Post-Care Text: Patient is prepared mentally and physically and is ready for surgery. The patient remains free from s/s of injury. Patient/family express understanding of plan of care and participate in decisions affecting his or her perioperrative plan of care. Allergies documented appropriately. Patient identifiers and consent correct. General Comments: Pt arrives to PSW. Pt denies SOB, chest pain, cough and flu like symptoms. Pt also denies pacemaker, defrillator and sleep apnea. Finalized By: Keshia Mack RN Document Signatures Signed By: Keshia Mack RN 12/24/23 08:29 [facility] Patient Handouton 12-24-2023 Patient Handout [facility] Coding Summaryon 12-22-2023 Coding Summary HTMLBase 64 JqngamxmPJb8mFx+PGhl YWQ+LP4LKSUdI35xgDRj kJ7rY0JCAHbIEivsBZJH IHtSGjCtgwMzZQ8gdHGv ZXJu IC8+BY1nTPNpYxzqfKNz l4X0oYJ0K94odt5cNFiu lKG3VTCbEmQputclb2ty iLg4OAeoMppvZiUi SEScfF08EIB9mN47Uk99 pZQuoHEea3mqvYu0AuCx SVGjXUX9rMfnKIywi3Ia QWCwD86tcFBor6F6 IGNvbGxhcHNlOyBlbXB0 fW0iSRmnnnwhk8xpgomd Ild8il74xSAem1B4nMB3 D2QknfE6BTXomWRw AwfenKOSrJ6iizhjj3rt woweQiOrBONoQEc2ZHb0 CWTgqCjyLzZzHI63FSN6 FOYfwtEuU4AnXKDo cIvgZiO4r9G9As2YT5HA UmwyK4IBBOZCQHojeZJ+ HF52es05S5BzTbzpWoj9 VNWlPHK7yKU0bC0w PKSlYZdtj8W5oTN8C6Xn kaFsid4sx9kmSTBgHFtd E36nfASei5S0GLCuoDY0 TLShnJxvBlQqyC39 Oyc+BHDasVgsf7YtAfvz f8ios0haeVv5PvsuKPNn auVljEbxJRU9t7WzDz6s OIWfqYG1xWM8qQ7z VdGsLgB1LCgtV408NfJm pZBbIwvqQ74bQ2ElsCV+ SCOeJzb2JUSldBlrKU8o X3ZqXHLubncveMIy oTvoTG0lHQPsvailGVKf xU3fVDOdD2v2BcHxHrF3 BQxhE3DiPDTylafcYb82 dY9nArIxVkB2EBvl H8SfevV7TXWctIQsKMhn HOB5E79ig7I5GAOzLREz LLJ7qUP3hV3dhIiommjd bGVmdDsgdmVydGlj RMnkFWndP220TEZcuZse PkNvZGluZyBEYXRlOiAg MDQvMTAvMjAyNDwvdGQ+ FGGtKOI9nZbfFDOf bCZjNDfjVa5hhYswoZuq DW6yPIPfylpqKVAhzH1c BDDhmUUrxEhuCK2oKVNg zvcug274ZtCxSVI0 UOZkiGEkU3XihU9uWwPq WVTkSSJvO8BtpBIgQGqr C700RHqpErF1IDZrksYx M2IcCULyyAxhYlE7 y0S6Me8Cs6RleujhC8Rf uRBvIgLqJwhgUWf0D3Xc PjwvdHI+LB14KKZnIN06 SRb1HUD7vFarJSom YMBqQ1ZbkE4nGiArVTGp ZGRkOyc+PHRhYmxlIHdp ZHRoPScxMDAlJyBzdHls NZ9nKn7eKXQkKATk cXraoKBqOkBfg4meNLZq KBcbJB1thWfiM9KngKE0 SUObc5r1Dq19A71jX0Ld dXA+VWBlnVT5uPJ6 bN4xBvDiTpL0VUsmA532 PbEzzSOcAjare9mlk2rb jRv2FvI3JYDytcYayQzn IIF9d4HwMp37H39i IHdpZHRoPSIxNSUiIHZh cAgnng0nuB4iIt1+PGNv nYW7dFL5aH2kIgJiSaZ8 NSqbN572GoZoxANu Obshg3ubu7cfkFo7SxIl CSPebqScoPubLIS7z3Io Ag96I8VchEsxe7CbOto7 rl82aZQut4H7xWO7 V4DdMZCisnvknSYwaVok UP0eLBIxycslVYUyhL8j ANFcF8c1ZpFjPoQ2VMzm R0UwevY7BEItjKCw NUPvtMNYuK9ldwdgs3pb jubzWzLeRMQkKHr0FTl0 JCAupPgsEqMlGJE2JqN2 UHL1nBUcyI4ntWme jkditD4zNjq+RFH9eYKp bVLJSD0vIbeonZJ+PHRk DOG3wBemWIdqKOEeuH3w VXWhM4v5IvPeDmC5 KQpuU2FfhpS7DZApzWEb HLMruPWJuE0ypttrg1um pqmiYlKqKUUmGNv5ETf6 LWFsaWduOiBsZWZ0 BiK9ILO4hBGzfQ0xoHeu gzhypR0kWaj+QmlydGgg HZG4IXt1N9BvZof7RGMt oUbvVZ0jhKJhURzl Mp0kdFemfNzlGJ3lWVDa onzdj165JtIkx3taDOTw eIBgABrlKLL9X57um6V0 JOLcVKDgKWC5fIX3 tA0cqKezejuokVSgvJyv pbMcrGuhVFapUXodX344 JRSxuQmeEbGdPBh3L1Tk Wsc8WFHjnHaoPC9o lFHiFGbbVr3fgPvffXdj BI1sXLDsfhrqm228TfDu x9pyGOBtyXTxRJqeAUN0 A38fe1X8VSAsUMEq VOF7gYC1mX0dxSygzjgp bGVmdDsgdmVydGljYWwt XMdrX982FWUuwAuzVmPg yEm1K3BcFzw1YTJx qIrmEQ9hlEPoSKlwVc6a iJiwfUbfEX1lSJUjjjcz c172BrLnw0ojWTHubLLy SYzuBBL9H22yh7N3 IGEoWFSeICD4lGO0iP0k bGlnbjogbGVmdDsgdmVy bDbkODpsPUgaK708EDZx cDsnPlBhdGllbnQg SAqtFQn4T7WtRtaceVS+ UV20NPGuZJ38tXZmaXBk l5ugsQa1CuHoLTKyWFH4 qIxhCEibn1CzVXAn B74tuMWba1Z1DUNakTtd kPSlJpErfID7yJ2zHGxl zttqx4smnkbyGptjn4vo bm88hU48F65gZRhz ZHRoPSIzMCUiIHZhbGln gm4rzM2lFo2+PGNvbCB3 dSI0lY9sIVBsNeA3LVlm G399HaSugEGzUvdm a6uvm5kbmQm8IlN6OFUf rjWsxJjwCNL1n5YbVl99 Y32zNFlsRWFeOGGhMOJg UWIueMhffz4jrD3u Ii8+YLOvdXJ6nHW4hC2a YpRdEnO3BGhmA418TaVv jEPiTlojK39sF9CmlSK+ LNEoDph7VEHlmFze UC7zgJPtUHkjIa4lGYC0 WsGtWlTnCRffS6KdISPx kfakcdiqgIJ1TXNrRFBk eO81Rz7maFtnMFXu kTIOaO4boejrf8biunhl SmEbSSDzVIg2GVk0CWBi pYbhCvOdCYM8AnA5QHD9 hWTxwF3fkHbajecx rV0dE9GhDARrwrrgUb60 oT1qIvLcLaD5ZNovTwl+ UPqERKpkG5CCLTqsNG6H FBQZTF54HQ75nHGx i4T3fFQ0D4FlQKGnvujt hgaesVA5UMFzMKAwfG56 tQPwSDubWk1gp1G7r747 RKFgPUSduQ52Mt2i wWjxLRPngKROpD5rjxeh o5fnbnxaRuHmVQWtLYr9 WVz4VSUbuLgiSmJiSZO9 GdD3EEK0tYFvmO4d eJghrupilB2eYqn+MDkv FkWdWAm3HWwhvCB+PHRk EAJ0pZsaFNkrOYQmvZ1e LKHsV7s0JbNjXuM8 PYgiI1DiXAUahnpqEf79 lS6bIcFtRaN9KSejJ7Ov xpP0NUTwnBKeQJkaUXQ6 I51cr1K6LHRmTEIt UFP2eXP4nU3zrNvrjany bGVmdDsgdmVydGljYWwt NNhqM312ANPskJfwKmSz KHnwXGMjZC03GQ57 rBHuc4L9qYK4G6TmOWZp gwxkelyapIJ2ZMTlPIEm tZ66aJBsIRciNd9be3C9 k508CECsSPOhdC44 Xh7cbJlsDHGlpUGPnS1j puneo4mbbqqwFwLjCXAr FNg6REv1QNEvlErzZbSe ZKO2TwJ8LMG1fBFr vZ5aaUqlnqwwnS6tNlx+ DwTTFVlNYR38HY11jUCi g7C5gSO4Z3YoMVZmlgow psbpjWO8XXWjMXWt iP62vPRyDQvmTt0av5J0 t301AMIaAUGhlL49Mp3u tChpHJDcnCTSyV6xmaok w1rttjaxZeStCCNq WOn3DQk7BWQirFviClRp IFM2FrP3RDF7qADkqR7r rBvynkcrzR3eGgb+T1A8 T3DhDnhzwNT+PC90 AKIxHM26eOBbhDCwh2dh oIa5ZvCkKAJpGFF2xWha HVytq6FjPIPcR37cwQXj r7M7LRWgnGqkxIBx XfShdZP7hG7sPOnmyuzx i7agxvqyDosaw7ovls31 pI29B09iPVfmHKMuKPSt WLPzXIUxrKipqn6x fY2nFs2+WPMfgVR6pDS7 mX9bQsBbYgC4WCbaR742 WmCpoTGkNirvn7cfb7gh zEe7NkGuVXQndjMf oLloUZS0v1LbNd14L10n IHdpZHRoPSIyMCUiIHZh cUuyrw6ohR0iVe2+PC9j y8onnj54dT33fRG+ RKYnDYG6kYrlVWjcVIUc aZ3aOFxyXeV7HSAvYgKk rV07ySZoWLtvMx5utCqp pKahEW0bYNQtigza t988XuFpy7gpPUQxmIYo DZppCRP7S03ys6Z3TVDt KGOrNPF9iTB3wV3fhEfq bjogbGVmdDsgdmVy aJkkTHinZGqmD044BCYa qSscKjYysTHhI5igfrJY IK6aAsvwbPJ+PHRkIHN0 eNxaKNpeRIJhtJ3m ERFiY1y8TwVqSmO7AFvq W3VspaC2VDEznULeWMEf sGHHiI7nwrgoz2lyajtd IxNbXRPqNMn8TXt1 HSEloGooEcRwVGC0BvH8 TQS6cYMivI2cnKszgdnd kI3kXwp+RklOOjwvdGQ+ LLMiMME6bThdIWve DQZmoM8hRCFlA3j6AhQz OtG8LLwyL8AcafD3CFFa qAIlMTTlyMRSqF2cxshi u6wkgubbPsNeLKZe ANx5HHr8EZIvaVvmDiZu KVQ6PpW8NPU5qUQhdP4d dQskhccjlE0cHls+TVJO OjwvdGQ+PHRkIHN0 qYruZEcoWDCkxM5fCUFx Q7f2QqQtBwD6PAebO7Uq nvW2SFKzoREgWCQnwVCK tW8ubpsov7zjdqsu GbOzKARsGZx1RTf9FQUg zIqeSuGfORG1EgF3EIH4 zCOafB5edYlsdjahlV9b Oyc+NJN8LMV0YL57 AF93Y9KeLerzbUNicZB+ PHRhYmxlIHdpZHRoPScx RYFdKbUrlFccPK0eUd0o ZGVyLWNvbGxhcHNl OiB (more content not included)... [facility] Consent Formson 12-20-2023 Consent Forms [id number]#1. [facility] Sub[facility] Agreem entson 12-20-2023 Controlled Substances Agreements [id number]# 1.[facility] Progress Note - Provideron 0 12-20-2023 Progress Note - Provider [id number]# 1.[facility] POCT Protime / INRon 024 INR Coag (PPP) [Relative time] 1.6 {INR} Abnormal 0.8 - 1.2 [facility] Interpretation and review of laboratory results Abnormal [facility] CBC auto differentialon 11-12 Basophils (Bld) [#/Vol] 0.0 10*3/uL [facility] Basophils/100 WBC (Bld) 0.5 % P [facility] Eosinophils (Bld) [#/Vol] 0.1 10*3/uL [facility] Eosinophils/100 WBC (Bld) 0.6 % [facility] Erythrocyte distribution width (RBC) [Ratio] 14.6 % 11.5 - 15.0 % [facility] Hematocrit (Bld) [Volume fraction] 41.7 % 35 - 47 % [facility] Hemoglobin (Bld) [Mass/Vol] 13.6 g/dL 11.7 - 15.5 g/dL [facility] Lymphocytes (Bld) [#/Vol] 1.5 10*3/uL [facility] Lymphocytes/100 WBC (Bld) 17.6 % [facility] MCH (RBC) [Entitic mass] 30.0 pg 27 - [address] [facility] MCHC (RBC) [Mass/Vol] 32.6 g/dL 32 - 36 g/dL P [facility] MCV (RBC) [Entitic vol] 92 fL 80 - [address] [facility] Monocytes (Bld) [#/Vol] 0.7 10*3/uL [facility] Monocytes/100 WBC (Bld) 8.0 % P [facility] Neutrophils (Bld) [#/Vol] 6.1 10*3/uL [facility] Neutrophils/100 WBC (Bld) 73.3 % [facility] Platelet mean volume (Bld) [Entitic vol] 9.0 fL 7 - [address] [facility] Platelets (Bld) [#/Vol] 255 10*3/uL [facility] RBC (Bld) [#/Vol] 4.52 10*6/uL [facility] WBC corrected for nucl RBC Auto (Bld) [#/Vol] 8.4 [facility] Cobalamin (Vitamin B12) [Mas s/Vol]on 12-09-2023 Interpretation and review of laboratory results Abnormal [facility] Comprehensive metabolic pane ifrah 12-09-2023 Albumin [Mass/Vol] 4.2 g/dL 3.2 - 5.3 g/dL [facility] ALP [Catalytic activity/Vol] 97 U/L 39 - 130 U/L [facility] ALT No additional P-5'-P [Catalytic activity/Vol] 22 U/L 0 - 31 U/L [facility] Anion gap [Moles/Vol] 10 mmol/L 5 - 15 mmol/L [facility] AST [Catalytic activity/Vol] 15 U/L 0 - 41 U/L [facility] Bilirubin [Mass/Vol] 0.3 mg/dL 0.3 - 1 .2 mg/dL [facility] Calcium [Mass/Vol] 9.1 mg/dL 8.5 - 10. 5 mg/dL [facility] Chloride [Moles/Vol] 102 mmol/L 98 - 10 9 mmol/L [facility] CO2 [Moles/Vol] 30 mmol/L 22 - 32 mmol/L [facility] Creatinine [Mass/Vol] 0.99 mg/dL 0.40 - 1.00 mg/dL [facility] Comment on above: METHOD TRACEABLE TO [facility] STANDARD eGFR (CKD-EPI)non-race dependent 64 - PINF [facility] Comment on above: Reported eGFR is based on the CKD-EPI 2020 equation that does not use a race coefficient. Glucose [Mass/Vol] 108 mg/dL High 65 - 99 mg/dL [facility] Interpretation and review of laboratory results Abnormal [facility] Potassium [Moles/Vol] 4.1 mmol/L 3.5 - 5.0 mmol/L [facility] Protein [Mass/Vol] 7.3 g/dL 6.0 - 8.0 g/dL [facility] Sodium [Moles/Vol] 142 mmol/L 134 - 146 mmol/L [facility] Urea nitrogen [Mass/Vol] 17 mg/dL 5 - 27 mg/dL [facility] TSH with Reflexon 12-09-2023 TSH Qn 1.36 m[IU]/L [facility] Vitamin B12on 12-09-2023 Cobalamin (Vitamin B12) [Mass/Vol] 1078 pg/mL High 180 - 914 pg/mL [facility] MR THORACIC SPINE WO CONTon 11-30-2023 MR THORACIC SPINE WO CONT MR THORACIC SPINE WO CONT Noncontrast MR thoracic spine on 11/26/2023 HISTORY: Thoracic neuritis, chronic mid back pain COMPARISON: CT chest 12/08/2021, MRI of thoracic spine 05/05/2011 TECHNIQUE: Multiplanar, multisequence MR imaging of the thoracic spine was performed. FINDINGS: Vertebral body height and alignment is maintained. No abnormal marrow edema. Degenerative disc disease greatest at T9-T10 where there is a central disc osteophyte complex causing cord deformity, eccentric to the left. There is also central disc bulge at the T7-T8 level without cord deformity or significant spinal stenosis. No evidence of discitis. No extradural fluid collection. No intrathecal mass. No expansile cord lesion or abnormal cord signal intensity. No significant neural foraminal narrowing. 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 Finding was previously demonstrated and is improved since 2010. * No acute pathologic process. Finalized by Kyle Smyth MD on 11/30/2023 12:32 PM Normal [facility] Coding Summaryon 11-23-2023 Coding Summary HTMLBase 64 MtzxwxnlWPn2cMu+PGhl YWQ+MQ8UYNAxH04odHLs kZ4wE1KNDRcUTvvyHTDL TWzDUwBxnzFcCG5hsIAv ZXJu IC8+BQ8hPRAfVanhwOPn y9O7sPT4I43lbg7vVDdm yGM8FROtKaAiiuyqq5if zOk3BEgsOujgUwUn HOLnqI88JQB8uZ35Rk15 tMJgvGZjm7sjpAr5RqYc ZOItHFI1aUfnJTblx1Ap JLKsX30rsFBnn4U5 IGNvbGxhcHNlOyBlbXB0 kR0eWVmpfytrj1uxzbks Byk8ft84mNHee1H0iTZ2 N4FontZ4FNPgrJTg FhsdlYVIgN9fsvgnm5ay ljhlMxPxIPOpXXo7MIr4 XUWyjAujKqVwZT93NYU1 SJMumrXjV4UcLJIx pWbeMmR8p4M3Dr9WH9QC CnrcM8XDOXDRDFlrcPK+ MC32dv02F0OzQiekGee8 CSMwWKS9eHI6xY9w FVGlHKvci9T6qRX0G3Qc peLnxr7iz5qfVZTaGYyq F54mbYVsj6N9RCJuiHN1 EYXbfCslNqUflH53 Oyc+EXFwmSuct3YyMjeg v4yrp2orpDu3OrttPJMi udMazNinAUP4e0PhMz2l JLNaxYC7gED4oF1d JoHjVoX4NEwjF428TqDf lKCbLlpdW26uR3BsqLF+ ESJaVxg8IABoiAkdBJ1f Z4HwQVKlyeixnENy xDvkOL5iXUIretbiHTWh xD4bNEJfK8r2KlOmDsL6 XSlhT0FeWHSfclvqBz70 bS3pCtNeWvF5LTke T4YuquE9APYllTGmTYlg GXY2L42ra5M9AVHlRMFv HBK8rGI6uI1iqUlxybkw bGVmdDsgdmVydGlj BJcjYChwK737MKMyuDqb PkNvZGluZyBEYXRlOiAg MDMvMTIvMjAyNDwvdGQ+ SWGxXED4kPrvSYKv oYZjYWktXj2osGolzYme XY5yTTBgajgjZSImeE1s KGSlfVXowKueUN8jJXVd enaqp169HeMtNYQ6 UBMwuWIhY2DtlL7pVgGd RZFmSRNoF3GawVZaWTzl Q437OXrnBrK2IBDjrgTz E3CyYABtyGweRyM7 l6V2Ku7Pz8WkzhcxL8Ek xUUqSmKlOlqmRGn7U5Sn PjwvdHI+KJ51TLMjXO21 QRr6CND7eKqfTTxx TWRoG5VkoR1vCxEaTSFs ZGRkOyc+PHRhYmxlIHdp ZHRoPScxMDAlJyBzdHls XQ2lKd0vQEFfJDFp wMpydDCnVxWac1sdBOOo GMqqZU5bmHrjX4BfyEP1 NARuj1w9Tp15G30mO7Ai dXA+UOQqgVI9tPF1 aR9bNbXoDaU5CGgtD711 XuLzjDYsQcflz8qlb1ag uVk8JeO0PTQgemBvgNfy CFF8l8KtSl92F86s IHdpZHRoPSIxNSUiIHZh vBwoav5bwZ3oMy9+PGNv gFE6pQS0yW1sVeNkErM5 XSihL929BoRssPWv Mpbst1uzx1ihmOg3NgJv DGDfziThaDfbCZZ4i0Rp Sj84X4QsyQwjo0SyBnm4 hb98zUMnu8L5tLK7 L3FlPCEshooyiMGgnIle UW2yFTTgaslbGIXobR3v ZVRtX2x1TtUmRpQ2QWyt L8WpdiL4TCXbvVKf XODdlXTTsK8uqavgu8tj kxkiNcBnODLbKGm4SYy9 XVOmiUbiAzGqUOV8SaB6 RWI2dHDydU8jtSoj akyizL9eGpw+KQF5dMQl lTGBVQ0sEywurEQ+PHRk UHI0kKtsFNehRDMoeQ0e SDTuR0l1LdLjApI6 MGxnO0CjzoO5BVRuaBSg ANLcdXBArH5tferkw4sf pituBeFkDMUjISt3KEi5 LWFsaWduOiBsZWZ0 NtK7KOX2kETnyB8xcEoz rbtntC5dFgl+QmlydGgg RSO6ECn3U8HxYrh8MDNq oWdqKS7quWHzOOqm So1lkIrunPxbBM0jFZGx avduc844SxIpg2duUSNd rTHnHJbuQUH4A17jn7C8 EBJdKTTqPKY3uOW4 dY7vgBtvmopczDRjpFip mgIvdFtmNVwuPDraI390 DEBtnPgaTdRfVAa5C8Xw Uhz0LLVvtRqjKF0q sERrLQjjKk5fwUyxaCao IB5eQLPkxwjdw406ZwLq g3swJZLoyNObQCcfVWZ9 L01uf2W3BTXkSTOr BWF3sSU8mH9eoGodtcjm bGVmdDsgdmVydGljYWwt MEpbW709UMDuqEuiLsAg pWd4V4AxVmp2ACFb pAibVW8kaXAjJFulZi6g bHumqVkmRP8lGHDjzxaa d484BxFlj0vlLMEcfUWs ZVjqOBF9U95kw4F6 NATwKCBmIQS7jNT9yW8v bGlnbjogbGVmdDsgdmVy pXzjXRfoYGsiB851HGCn cDsnPlBhdGllbnQg GRhaNBg3B6RfOjeduNM+ DP67UOMhXO33kPGgzABi r9zikHg9IiWiFZNsEVV8 gHdoWJwnh8JwEVMt A65crSZfq6P4BUUzpWzd zOLnKjYvaFY2aV8iETyo ylryj6xfjupxQpuyz7lt ii74dZ60G25uESlk ZHRoPSIzMCUiIHZhbGln yf3dbH3oNx8+PGNvbCB3 tHJ0iE1gMXYmXcL2TZdn Y057NeRgcCEgKtho j0hey2zyoLb2FzC1FRHn xiEfwCgrHYC2a2ExXs06 A04iPKbzYJTeCNYuALHi PJMnkQzgxw1fgB9y Ii8+XDAgnYT7mAV1yO3z KeXqXvG0FKgoA673YvGz yWUcCovvM93mV1DrfFL+ QDFpAmz9NIBhzEiv GV2udVZbGHkiCz2cKYE6 YaRxXwGvSFheI8ZpUKHn ezhdnypdzHD5UKIqUFXe wT30Tr7gzKmrPZQd hVQTsR4saqxmg7nrndbf ZnKoZJAgZTe6NUf3IJBy fJrbSdYjQNJ3BfZ5WXP0 qKQbdP7zfFaqbtsr oM8zO6PvGURqxibvNx12 gF4oMwIeMeX0TBplGec+ NUuVMAqbI5OUMPrrER7P FYTWOO43QV94lAZa r4R1zEH5H7MiHLPodles tlqzqLS5RPHvUOAaoM16 vUFpIOkcNw2dw8O4w888 TPIvXGBxuI72Nh0d iSmvBNIpoTIHmB9wzgno n1tcpammLkYoFXRlOWf4 SEw5NPEpnTzbMvTpHPE8 UyH7MDY3oUIsuT5x iLbfvgtzoL1zHda+MDkv TaFhFPh5YUwgvXP+PHRk MMU9nNxzWWrjFTJydI8j GWIgC0x6TgEnBpL5 YWfrO2DcMEBwynpqOb32 sT1bXdHxLcD6LFejS7Ff guY0MEGneOLjGWckXMB7 R88hw6S8DVCzIDSc SOF0sON5jA0dcUlasxvw bGVmdDsgdmVydGljYWwt RHonK892ANXdbClqToUt DMxgUFJpEF86KW14 oMZxs6T5bOG5G2PnOXGv ubxdrpgviOW3YTCrNHTv aN98hZJeUVjjFn4ap1X2 j648WSQxTLFktZ15 To4cdWrdLRVjmIAUmQ7h guetq5jwasooPtZpTMRu IYw2YQf4XEHhaBwuPsZj OXA1WrP5MMZ5tOEh xX1jmAfonrbbcV4yBvb+ PfRFZMsJXQ62LS23iLAa y1Z7sQV9N8CpOJEuqelt kzklrNT9VFOvLSNn tR06fGDvBGjxWh7cd9C9 g567WTQuHGVluZ79Xr3h lTuvXVPvtAFIdX2hbkbg g9czohqbFfNoQVTa JMg5DRa2QCEknPckYoBy LYM7IpF0PSS2pSSlfM0b mBvnakzabH6rYca+RGF5 FBU3gzvuztm4M3Iq PjwvdHI+ID64YZTbBF11 gGCliIOdb2khpFv7JfWp AJIeVBF0oWmnCAoet6Ms KNBkM06hfKLcj5V9 IGNvbGxhcHNlOyBlbXB0 yA3aMDlaziqbg8obqivy Bbkju4iwfq53mL46G11h IHdpZHRoPSIzMCUi OOWktFhxor9kpJ5zSc4+ VMYvrZW4yTU7bH2cUsFf AsW4QBnwE196DnAurRGx Lozwh7cff4nrmIm8 IjIwJSIgdmFsaWduPSJ0 z3WkKu73X92gWPqeXXFp DOTtMTHrXLDmcDhcjf3x yP6jJj6+WA1hh2xq hr95pM21aHX+PHRkIHN0 tDozVWvnBACktP1eAZrl LzA6GUQmZzOlyT55nWJw RGmhCf1jqGttbKht RC1rTAZbfkxti656TlXf s4ahITCxjYUvOTpkJAS2 E47el6B7MBDaJPOrSUT5 kOF0hC9dmTxpibfn bGVmdDsgdmVydGljYWwt NIetY423UABhqGmuGoRj oURbM3bgleONWQ7pGpin dGQ+NQQgGPT3lXrc UAwxUEVwiB6wSQOiF4q0 DaBbOxF9PHgeE6JdahR1 RMMavZDqECEwjVSVsB7m edjrr3quemuuGoTp VAKdPRm5FYn9SFEclYcc TlYlZMW3GqH4IIL2iPWk pK9jbGtxupepjW6fCql+ RklOOjwvdGQ+PHRk HEX4nMlfIKehJVZmzW0a ZQPzO2s3RoHnFjQ7VXax X2ZkydB3IDEgrGBwZCIa mQUOuE8buglim9qe prmsGeKbJOViVNk6KAs7 IAEyaBxrNiEkGYS7JjD0 AUG5yJMqpT6ezEyfymce iR3uCwc+TVJOOjwv dGQ+LUMwHPB7vCvcTSwn PMYopV3lBUWkB2x0JvTr QeG0ZZsuJ5KvntW9GKXs aZLjZDGxoNVMaL5e ppgkx4kxfidjDzJtXPAw ALy9SBx2XSNwlPgeImHg GTA4XfH3SPW9eGUwcA4s jZnyvmgpcG3mXcs+ UOG8UIH6FN20UF78G2Je PjwvdGFibGU+PHRhYmxl IHdpZHRoPScxMDAlJyBz tCnpLG6gXn8iCCPx LWN (more content not included)... [facility] Coding Summaryon 11-22-2023 Coding Summary HTMLBase 64 BhjfuvkgJQl0uTk+PGhl YWQ+QI5LEXZqQ79khSTw tC4bU7RGXKfQDoedSDSU OHjHQaBlbvNwAC6mhLYr ZXJu IC8+AL5uXAWeYshomMMo l7G4bYN1N83odp1sZDwd hFB6HWJmNyCevdosd9pj jJp8QPqbFfatIuLu TNHbhY37WZO5zE10Zz56 kDRriNPsd1sfsSt2EdJq LTNbLYR2uGmxAOkog1Al HUEgF12jbWLna3F9 IGNvbGxhcHNlOyBlbXB0 wJ0mYEvhbclwn6obvhch Bui7td03yTNpa4N6zLZ2 I5PpfdJ7QVEoyGMo OaqudYTIsI7whlgit3yn wuafCkQdOUCsCMc3GDo9 OAWhxFsqWyDiZE12QLF2 WGZfjfGhQ0RvHZZv bMisHxD8a7G1Fd9KI5NI XnphM1NAUKRPHNjpzFZ+ DV29al00N3WuSnvmMvp1 MSIjVCF7pUN7cT9i KCElZDcdw2I9bID4W7Sn cbZaqp0en0qyHJZcXExa M68jzUAyy6M4RQJhhIK3 NOIhxBawPxZwjC04 Oyc+WIHadEzfs9RmVjjj f6ovx5olpBp6MwwoEUZo kvFmhKlbNVY0m6VnSp6y YCXswTD9mCD5hM9x CdDgHrY7LCmrH761MnLy wMQyZqwmC85lI9TdiMK+ YFOnTst6QOKbmLhrVK8i I0OgKPWnwbztrVDw jUymXT1cLVJfluydRRNz qI3uSIEmI4u2AfXcCnM3 MBnlQ1XqLFSxmazdSd73 oJ6kZlSqJkO4PHrw S5CiwkZ2WSNldYHxADip EDF0T68lo4B0WHQtXSIy KFI3hJI8lK8aiOmbveqa bGVmdDsgdmVydGlj DWdlDUspT576TTUtvZfw PkNvZGluZyBEYXRlOiAg MDMvMTEvMjAyNDwvdGQ+ JFYvCRI5uQnbXIHv hYSlGOniHd6utSfjrNfl KC2oGNUpngjvCORhaI6q UQNyvUAswQmyZA3tNITk zafvx018QsLeUON0 AWAezLGgI8OkqF2yEcOy TBZkPGXhS5ZkyBTpQJyx R180EYdzObQ7GPFajyKz I6BeQHWkqIqrUrX3 e1T7So4Pn0ZubjjxW2Vo iZMeUnOvIiteRQv3T6Bn PjwvdHI+NL87HDHkZE05 GLr1FFK7rJpjOWlw FEGxL8PmuL2zSgOnUPNq ZGRkOyc+PHRhYmxlIHdp ZHRoPScxMDAlJyBzdHls MJ4zSs2sZIQhZQQp gGpxhVLmIzIsa4mrHHZw OXqjSP9yxKsjH8FusSV2 NVYkw6e2Wp09I34wR6Rh dXA+LQLyvGX6fIZ6 hC8aVdFfPzR0TClwQ055 SfRpqHXkYvgfw1foe6le qEd1QrX2KHHttlDqkBjp EYG0s1SqSx04O11n IHdpZHRoPSIxNSUiIHZh hZmyqg7gwN4zRa6+PGNv iYK6vQK0jN5pYrMuOzK9 YNibC814UdUtlPWk Dvyeh7piu6pzhRm1JbMm ZYTuzgFkvSpjVWG8n2Yy Ii33P0UpkEgti4HgPdw7 rk32jZOgo8G4aEV9 G6XwUVWnuhpwuXJghDmj VJ8iPVSboabnVNHkvK5q QAKkS4b4HmJvXuB8SJkq K3AebiU7XGDjqOCe CHHghKNPyA9hdenhj5vp zhqsBhRfPNPhMJk1CEt8 AXQcaNbtYxStNQW0JuZ6 SWW1sAWqzH9ucUfr seoqfY4eIez+OMA7dGCb zQCOFT3kDccjwSG+PHRk VDL0wQnmNStqMHIcjH1k TTIuY2k9AoWdMzW1 IXjmY6OpjlK3NFUmdDPu TBTkvLBBoB2xbjwmu3fd omqmIqJiFQYtEFj5HNj5 LWFsaWduOiBsZWZ0 JiS3EPV2tQIpcK8liAib vwncrA6eXfh+QmlydGgg XMG0ZEg5X8AiCgh3UZNj wYddFT4loTKtRUdd Wr8khDqflXzoER1yMXPi bjmka448BjJqz8miGBEx dVZaPUmcVDE3Z70kd2L9 XBBzULTuKWT7tLS1 iU4vgEqvwmmntDKmjIey ibEybJtvUDjrQGnnH428 FTPriHddQzUjWOz9F2Nn Fyb7LJBwkDujLN9b qOPvORrqWo3kpQhpuGge RO0tDSVbzutvr441WsMl d7brOTOgzAWkRUenEJM7 A44rc6U6RTEgQOKk JWY6eYQ1jZ6euJnbjfdy bGVmdDsgdmVydGljYWwt BJotJ929QZZhzYiwJeQl oDu4L3YfLya1WVBn cFcvSE7gjIWsQWttUa6r xMeohEeeSL1wIBLwlozs k317JpCpz1vhBVKtwWXg ABstXAY4N75ky6Z3 PHDrFJZuPIZ1vWX0bC7f bGlnbjogbGVmdDsgdmVy tFuoVOygTWezW950UOCx cDsnPlBhdGllbnQg ZWqcANb2C5QxIuofoFG+ OT35KTHzSO48xUJlkZRc t9gqhRx7GsAdGZByCAF4 yUukVDqyo0EvAYKd X91bxNIvo4U4MQRthIhp eYSaBcYrqNW3lZ3pHByv xqvzw7cbbaomOmsrf5qu bp56dV82D51xRWuj ZHRoPSIzMCUiIHZhbGln qi3xuL0dPr5+PGNvbCB3 zKP3kS5xRCEvIfP1SFwg Q490AzZgpCBzCpwq w9wrw7cbhNl8UiA7DCGb ztKwhUfqOWD5q5AiDg16 W75cVSdvMAEqXOOkHBLt HDQtsZgkqg6rwW8u Ii8+GLMtrVB7uOO0kU8q SrThYcU4VGttE654YcGb rMIjJxwwD28cS8QgoQZ+ BGYkVzw1KSSsoBhk SF0irDMyJAjyKa2pEPQ5 CaZuMoBkGNayF1EiOXUi jixphaseoJT7IWEzLSKk hV95Yj6nmWtuPOQf tDJJuB6afhhck4orhivf JaCsMDEwYJm6QJx0PZOa oYdfZiKrCRC6HdB0CMP1 xGDauJ7pcTmzxnqp yR1jU2UvJXMoxvpgVb49 aM3aZtOkQyZ1BQlcUlu+ WMwQSSoiX8RACLctBO1V TDQMHS77YL00pAIq q8E4gJJ2C0BgQFVnyfov ytagxHD6SVVdCWPhyP45 eKKoTYpqMk1zm6Z2m543 SWOiMZYlxV52Os2u mFzxDUIllEGXqQ5dijob r7gjbfjkNvQyEWHtNKr8 AAo1YBIkmTxwJoHmIKG6 GyY6QON5jMBucR0b pLcwucexgX9dWhs+MDkv JwGqJXt3CQugyHA+PHRk POC2bExjOFrzBGWiyZ1l TDEeR5f1ZaMjFfI5 TKnyZ2IqCBEgcidrBq97 yE2nUtKwHiW9VHfcI9Bb jxQ6BMAzvYMoLBeyOPQ4 E27xu0L7BIOuATQa SQR1rAP1wM3fcZinuqtx bGVmdDsgdmVydGljYWwt CDuxT634OYGttEuoRiFr RNkqSGDdMC25QX28 gEZzb9C4vJJ9P4IyBKVh jihipbvqnQX4GOOhEBAu gJ39eIYjPAdzPe9et1B3 h710ASLzYRFtwS75 Tl6qrWwhWDGhyHJZgK0l jgbhq3jwgvioYvTfLSUr RZh9RXw5PPLqnCcjSkFo YXO8EjX5YFL1eOCy gV2mzOgqtikgeX1cRsb+ IxBGKVsOOZ81PD71xETv p2G7bTH7L0YyAUIsmlcb arlbcLD5ECTzXILe oW35pMFhOTocFv7gu6Q8 y553TQOpDGNrxV63Md6a eLhsZYWjuGYToK5klqyi o4guibkvTbIqZLVm FSo5FTk0ANUjnFlqExDz XHR2BnC3WUL4fAKpkU2r lGtzdolhnQ4cPvz+T1A8 D2GyQrwphSK+PC90 FCYmNQ24wXDjwUGng9gq vLa3ExJeUIAuOJT7kXge DManl1SwHCGlY57tuBQr g4J0DDIhlNnozQVo JpYfiLQ7tN6iDFbsrjlx a0rdqippRfqyu1fqnc21 mN74X99cYBfrWOOxOPMr PCVxFOKrkQjebw5n yH6yCm2+IVPfbQG9vVY6 vV4aWnXfTjF1HFqyD327 FgHecLDtMthml3jso2zx wKw9FnIzZEFrjaNu qRfpQCS9k7DeGj70N49i IHdpZHRoPSIyMCUiIHZh iVldyn6vnU0nKj0+PC9j g5dpvx05yV13cDJ+ PHIoGKA1bCsjDJziMULw xR0lZXpvMqB4RRHvZbZh qB93vSGjHWtzBm0fcDfl qYifDZ4dAVVfisvp v575XuEqv8tkEEKxmUWk MGtqDEH9X96jb7B6BLRe NNSlRWV3fCR3rD4brWdm bjogbGVmdDsgdmVy xUudCUjvJIplB591YJQw pDuzHdNotAHpH8efgjOV QI8mCvgcxTW+PHRkIHN0 oDgbZUsfZPYfvB4z SKQkZ4p8AbHnLmG5HNro G5NiluQ3TBLjfLIsYXWn dBHHxD7cloekh8fzhxfo FtKgPVSmCGp0YXh8 HAXwmEqyVsSbMMS9BbE3 VBP4kNQmaN4qvJovyhfz uU8aOan+RklOOjwvdGQ+ YJSpUXG1jXffBRsd YHHovY8pVBUqG6t2WxMp PtI9EQkwE4YktgH6PBHn nSDcCRCzkCNLsN2hkaca s8iwokoqOwRmDVUh VZt2JRf1BARzuKrdHzOp MAS8HyC2NFD9uLVzuG1z qAiifcjmaD3vZtj+TVJO OjwvdGQ+PHRkIHN0 hQxuTPhzKRRppD8iCDUb E0e2ElAcTeI0GLqkQ6Ht yuH0KKEefXWhOJYdyAFY mT2ndtdlk1kvotrj HcCiCYAtBYb2PGw1KKZi hBqpNjGlCEJ3KzM1AGW6 dXIfjP9krKibxwblnF2g Oyc+OTL5WWL8YB60 HN24I6GjOzminQDpfWP+ PHRhYmxlIHdpZHRoPScx CBWcYdUatSbgNB3eWj2a ZGVyLWNvbGxhcHNl OiB (more content not included)... [facility] Consent Formson 11-22-2023 Consent Forms [id number]# 1.00OTGTIFF [facility] Inpatient Patient Summaryon 11-19-2023 Inpatient Patient Summary [address] [address] Patient Discharge Instructions Name: NOEMI BRAND : 1960 Patient Address: [address] [place] [address] Primary Care Provider: Name: Provider, None Phone: After you are discharged if you find you have any questions, please, call [phone] to speak to a nurse. Discharge Diagnosis: Prescription Information: If you have been given a prescription for narcotics, seek immediate medical attention if you have any difficulty breathing or any sudden status changes such as confusion and sleepiness. If you or anyone you know is experiencing suicidal thoughts, mental health, alcohol and/or drug addiction problems; contact the [facility] 05/04 Crisis Hotline -Text 4HOPE to 826177. If you received any narcotics, sedation, or any other medication that causes drowsiness for the next 24 hours, unless otherwise directed: ? Do not drive a car. ? Do not operate machinery such as power tools, lawn mowers, drills, sewing machines, or stoves ? Avoid alcoholic beverages and drugs for allergies, nerves, or sleep ? Do not make important personal or business decisions or sign any legal documents [facility] would like to thank you for allowing us to assist you with your healthcare needs. The following includes patient education materials and information regarding your injury/illness. NOEMI BRAND has been given the following list of follow-up instructions, prescriptions, and patient education materials: Follow-up Instructions Medications During the course of your visit, your medication list was updated with the most current information. The details of those changes are reflected below: Medications to Continue That Have Not Changed Other Medications acetaminophen-butalb ital (acetaminophen-butal bital 300 mg-50 mg oral capsule) 1 cap(s) Oral; as needed as needed for headache. aspirin (Aspirin 81 Chewtab) atorvastatin (Lipitor) baclofen (baclofen 10 mg oral tablet) 1 tab(s) Oral (given by mouth) once a day (at bedtime). biotin (biotin 1000 mcg oral tablet) 2tab(s) Oral Daily and 1 tab at night. buPROPion (buPROPion 300 mg/24 hours (XL) oral tablet, extended release) 1 tab(s) Oral (given by mouth) every day. cholecalciferol (Vitamin D3 125 mcg (5000 intl units) oral tablet, disintegrating) cyanocobalamin (Vitamin B12) famotidine (famotidine 40 mg oral tablet) every day. ferrous sulfate (ferrous sulfate 325 mg Tab) 325 Milligram Oral (given by mouth) 2 times a day (scheduled). folic acid (folic acid 1 mg oral tablet) 1 tab(s) Oral (given by mouth) every day. gabapentin (Neurontin 300 mg oral capsule) 4 times a day. galcanezumab (Emgality Prefilled Pen 120 mg/mL subcutaneous solution) levothyroxine (Synthroid 50 mcg (0.05 mg) oral tablet) take 1.5 tab daily. linaclotide (Linzess) loratadine-pseudoeph edrine (Claritin-D 12 Hour) metoclopramide (Reglan 10 mg oral tablet) 1 tab(s) Oral TID before meals. montelukast (Singulair 10 mg oral tablet) 1 tab(s) Oral (given by mouth) once a day (in the evening). naltrexone 2mg qhs. nystatin topical (Nyamyc 100,000 units/g topical powder) omega-3 polyunsaturated fatty acids (Fish Oil) 2400mg daily. pantoprazole (Protonix 40 mg oral delayed release tablet) 1 tab(s) Oral (given by mouth) 2 times a day (scheduled). QUEtiapine (Seroquel XR 400 mg oral tablet, extended release) 1 tab(s) Oral (given by mouth) every day. senna (senna 17.2 mg oral tablet) 1 tab(s) Oral (given by mouth) once a day (at bedtime) as needed for constipation. valsartan (valsartan 80 mg oral tablet) venlafaxine (Effexor XR) 50mg 1 tab in morning and 1 tab at noon. warfarin (Coumadin) 5 Milligram every day. zolpidem (Ambien 10 mg oral tablet) 1 tab(s) Oral (given by mouth) once a day (at bedtime) as needed as needed for insomnia. It is important to always keep an active list of medications available so that you can share with other providers and manage your medications appropriately. As an additional courtesy, we are also providing you with your final active medications list that you can keep with you. acetaminophen-butalb ital (acetaminophen-butal bital 300 mg-50 mg oral capsule) 1 cap(s) Oral; as needed as needed for headache. aspirin (Aspirin 81 Chewtab) atorvastatin (Lipitor) baclofen (baclofen 10 mg oral tablet) 1 tab(s) Oral (given by mouth) once a day (at bedtime). biotin (biotin 1000 mcg oral tablet) 2tab(s) Oral Daily and 1 tab at night. buPROPion (buPROPion 300 mg/24 hours (XL) oral tablet, extended release) 1 tab(s) Oral (given by mouth) every day. cholecalciferol (Vitamin D3 125 mcg (5000 intl units) oral tablet, disintegrating) cyanocobalamin (Vitamin B12) famotidine (famotidine 40 mg oral tablet) every day. ferrous sulfate (ferrous sulfate 325 mg Tab) 325 Milligram Oral (given by mouth) 2 times a day (scheduled). f (more content not included)... Normal [facility] MAGR Intraoperative Recordon 11-19-2023 MAGR Intraoperative Record MAGR Intra-Op Record Summary Primary Physician: LINA SCHWAB MD Finalized Date/Time: 11/19/23 13:17:57 Pt. Name: NOEMI BRAND Maureen/Sex: 1960 FEMALE Med Rec #: [id number] Physician: LINA SCHWAB MD Financial #: [id number] Pt. Type: D Room/Bed: / Admit/Disch: 11/19/23 11:56:40 - Institution: Case Times MAGR Entry 1 Patient In Room Time 11/19/23 13:08:00 Out Room Time 11/19/23 13:18:00 Anesthesia Start Time 11/19/23 13:11:00 Stop Time 11/19/23 13:17:00 Surgery Start Time 11/19/23 13:11:00 Stop Time 11/19/23 13:17:00 Last Modified By: Ev Bailey RN 11/19/23 13:17:26 Case Attendance MAGR Entry 1 Entry 2 Entry 3 Case Attendee Santos Brito RN, Diane RN Heintschel, Sara L RT (R) ARRT Role Performed Track Coach Track Coach Ware Server Time In 11/19/23 13:08:00 11/19/23 13:08:00 11/19/23 13:08:00 Time Out 11/19/23 13:18:00 11/19/23 13:18:00 11/19/23 13:18:00 Procedure Block Nerve(Bilateral) Block Nerve(Bilateral) Block Nerve(Bilateral) Last Modified By: Ev Bailey RN, Diane RN Kokinda, Diane RN 11/19/23 13:17:28 11/19/23 13:17:28 11/19/23 13:17:28 Entry 4 Entry 5 Entry 6 Case Attendee Iveth Anderson RT (R) Hailey Jorge LEATHER STRETCHER LINA SCHWAB MD ARRT Role Performed Ware Server Scrub Personnel Surgeon - Primary Time In 11/19/23 13:08:00 11/19/23 13:08:00 11/19/23 13:08:00 Time Out 11/19/23 13:18:00 11/19/23 13:18:00 11/19/23 13:18:00 Procedure Block Nerve(Bilateral) Block Nerve(Bilateral) Block Nerve(Bilateral) Last Modified By: Ev Bailey RN, Diane RN Kokinda, Diane RN 11/19/23 13:17:28 11/19/23 13:17:28 11/19/23 13:17:28 Surgical Procedures MAGR Pre-Care Text: A.20 Verifies operative procedure, surgical site, and laterality Im.150 Develops individualized plan of care Entry 1 Procedure Block Nerve Primary Procedure Yes Primary Surgeon LINA SCHWAB MD Modifiers Bilateral Surgeon Comment BILATERAL THORACIC Start 11/19/23 13:11:00 INTERCOSTAL NERVE BLOCK T7, T8 Stop 11/19/23 13:17:00 Anesthesia Type Local Surgical Service Pain Management Wound Class Clean Technique Details Closure Technique N/A Entire procedure No was performed via laparoscope or robotic assistance Last Modified By: Ev Bailey RN 11/19/23 13:17:30 Post-Care Text: O.730 The patient's care is consistent with the individualized perioperative plan of care General Case Data MAGR Pre-Care Text: A.350.1 Classifies surgical wound Entry 1 Case Information OR MAGR OR 02 Case Level None Wound Class Clean Specialty Pain Management ASA Class N/A Diagnosis Preop Diagnosis THORACIC PAIN Postop Same As Preop Yes Postop Diagnosis THORACIC PAIN Blunt or No Is the procedure No penetrating injury considered occured prior to Emergent/Urgent? the start of the procedure: Last Modified By: Ev Bailey RN 11/19/23 13:05:46 Post-Care Text: O.760 Patient receives consistent and comparable care regardless of the setting Time Out MAGR Entry 1 Procedure(s) Block Nerve(Bilateral) Time Out Checklist Verifications Team Introductions Yes Confirmed Identity, Yes Completed Procedure, Incision Site, and Consent(s) Presence of Yes Site Verification, Yes Necessary Site Marking, Site Procedural Marking Equipment, Devices, Alternative, and/or and Implants Site Marking Verified Exception in Accordance with Facility Policy Anesthesia Review Antibiotic Received n/a All Anesthesia Case does not involve Within an Concerns Addressed an anesthesia Appropriate Time professional Interval Prior to Surgical Incision Surgeon Review Anticipated Blood Yes Expected Case Yes Loss Risk Addressed Duration Addressed Critical and Yes Non-Routine Steps to be Performed Addressed Nurse Review Equipment No Fire Risk No Checks/Concerns Assessment Addressed Completed and Interventions Performed Diagnostic and Yes Sterilization No Radiological Test Concerns Addressed Results Displayed are Appropriate and Labeled Other Concerns No Addressed Time Out Santos Brito RN, Time Out Time 11/19/23 13:10:00 Participants Ev Bailey RN, Che Downing RT (R) ARRTJustin Jenna RT (R) ARRT, Hailey Jorge LEATHER STRETCHER, LINA SCHWAB MD Last Modified By: Ev Bailey RN 11/19/23 13:12:52 Patient Positioning MAGR Pre-Care Text: A.280 Identifies baseline musculoskeletal status Im.40 Positions the patient Im.80 Applies safety devices Entry 1 Procedure Block Nerve(Bilateral) Body Position Prone Left Arm Position Resting at Side Right Arm Position Resting at Side Left Leg Position Extended Right Leg Position Extended Feet Uncrossed? Yes Press Points Checked Yes Positioning Device Pillow, Safety Strap Outcome Met (O.80) Yes Last Modified By: Ev Bailey RN 11/19/23 13:08:14 Post-Care Text: E.290 Evaluates musculoskeletal status O.80 (more content not included)... [facility] Preoperative [facility] MAGR Pre-Op Record Summary Primary Physician: LINA SCHWAB MD Finalized Date/Time: 11/19/23 13:24:31 Pt. Name: NOEMI BRAND./Sex: 1960 FEMALE Med Rec #: [id number] Physician: LINA SCHWAB MD Financial #: [id number] Pt. Type: D Room/Bed: / Admit/Disch: 11/19/23 11:56:40 - Institution: Pre-Op Case Times MAGR Pre-Care Text: Patient will be optimally prepared for surgery. Patient is free from s/s of injury. Provide information to patient/family related to plan of care. Verify patient allergies. Confirm identity and verify consent before the operative or invasive procedure. Entry 1 Patient Arrival Time 11/19/23 12:10:00 Preop Departure 11/19/23 12:57:00 Last Modified By: Keshia Mack RN 11/19/23 13:24:28 Post-Care Text: Patient is prepared mentally and physically and is ready for surgery. The patient remains free from s/s of injury. Patient/family express understanding of plan of care and participate in decisions affecting his or her perioperrative plan of care. Allergies documented appropriately. Patient identifiers and consent correct. General Comments: pt arrives to W ambulatory. denies CP,cough,cold, COVID like symptoms. denies diabetes, pacemaker/defib, sleep apnea. pt verbalizes understanding of post op instructions Finalized By: Keshia Mack RN Document Signatures Signed By: Keshia Mack RN 11/19/23 13:24 [facility] POCT Protime / INRon 024 INR Coag (PPP) [Relative time] 2.0 {INR} Abnormal 0.8 - 1.[address] [facility] Interpretation and review of laboratory results Abnormal [facility] Patient Handouton 11-19-2023 Patient Handout Normal [facility] Progress Note - Provideron 0 11-17-2023 Progress Note - Provider [id number] .00OTGTIFF [facility] POCT Protime / INRon 024 INR Coag (PPP) [Relative time] 1.9 {INR} Abnormal 0.8 - 1.[address] [facility] Interpretation and review of laboratory results Abnormal [facility] Pain Management Office/Clini c Noteon 11-01-2023 Pain Management Office/Clinic Note Chief Complaint Left posterior rib pain. History of Present Illness Presents today for evaluation regarding left-sided posterior rib pain. Patient underwent left T10-11 TFESI 10/06/2023 reports 90% improvement of pain in thoracic region. She does report some residual rib pain at times. Historically, patient has garnered significant improvement of intercostal pain with intercostal radiofrequency ablation. Patient reports overall pain well-controlled at this time Patient has engaged in a 6 week course of provider directed, home based physiological therapies within the last 3 months. In addition, a six-week trial of activity modification has failed to give reprieve. Patient has also failed to respond optimally to oral analgesic regimen Oswestry Disability Form AM Behavior: Better PM Pain Intensity: The pain is very mild at the moment Day Progresses Behavior: Worse PM Personal Care: I can look after myself but it causes extra pain PM Behavior: Worse PM Sitting: I can sit in any chair as long as I like Pain location and laterality: Left posterior rib pain. PM Pain Lifting: Pain prevents me from lifting heavy weights, but I can manage light to medium weights if they are convieniently positioned Pain quality: Aching, Sharp PM Walking: Pain prevents me from walking more than 1 mile Pain Pattern: Intermittent PM Standing: Pain prevents me from standing form more than 1 hour Pain rate at rest: 0 PM Sleeping: My sleep is occasionally disturbed by pain Pain rate with activity: 7 PM Sex Life: My sex life is nomal, but causes some extra pain Bending: Aggravating PM Social Life: My social life is normal, but increases the degree of pain Heat: Alleviating PM Traveling: I can travel anywhere but it gives me extra pain Lifting: Aggravating PM Oswestry Score: 24 Lying: Alleviating PM Oswestry Score Interpretation: 21% to 40% Moderate Disability: The patient experiences more pain and difficulty with travel, social life, sitting, lifting and standing, and may be disabled from work. The patient can usually be managed by conservative means. Medications: Alleviating Pushing/Pulling: Aggravating Sitting: Alleviating Standing: Aggravating Walking: Aggravating Sensory impairment location: denies n/t Pain since last visit: Improved Procedure 1: Therapeutic nerve root/TFESI Procedure Comments 1: left t10-11 Pain Improvement 1: Significant (70-100% relief) Date Tens: n/a Date Chiropractor: hx Date PT: hx Frequency PT: 3 weeks Effective PT: helps Comments PT: HEP-stretching Date Injections: current Frequency Injections: prn Effective Injections: 90% relief Date Surgery: Hx Frequency Surgery: x1, x1,x1 Effective Surgery: neck 2008 , thorcaic 2018, & lumbar surgery 1994 Comments Surgery: 05/2019 T9-10 @ [facility] Loss of bladder/bowel: Denies Demeanor: Pleasant Distress: Mild Appearance: Appropriate Cognitive impairment: No Feels safe [...] plan Physical Exam Vitals & Measurements HR: 86 (Peripheral) RR: 16 BP: 136/81 HT: 165 cm WT: 97.5 kg (Estimated) BMI: 35.81 General -Appears stated age. No apparent distress. Psychological - Normal mood and affect. HEENT - Normocephalic/Atraum atic Neurologic-alert and oriented x4 Respiratory - No obvious distress, No shortness of breath. No focal motor or sensory deficits appreciated Additional Vitals BP Position/Location: Sitting, Left arm Assessment/Plan Thoracic back pain Thoracic spondylosis Patient has chronic thoracic pain secondary to thoracic spondylosis and intercostal neuritis. Patient has 90% improvement of thoracic pain following above delineated TFESI. We discussed potential repeat intercostal RFA. Patient defers at this time. Patient requesting transfer to satellite location closer to her home due to scheduling complex with OR procedures needing to be on Fridays. Patient will be referred to [facility] Medical Decision Making Chronic conditions NOT treated during this visit that affected my overall medical decision making: [CVA] I have reviewed the patient?s medication list for medication interactions/contrai ndications and/or for upcoming procedures: [yes Time Spent with the Patient I have personally spent [] minutes on this date, directly related to today's patient visit, including pre and post visit work, for this date of service. Time listed does not include time spent on separately billable services. Physician Comments Dictated with voice recognition system. Please disregard any inadvertent errors Problem List/Past Medical History Ongoing (more content not included)... Normal [facility] Calculus Analysison 10-29-19 24 Calcium oxalate dihydrate Infrared spectroscopy (Stone) [Mass fraction] 50 % Invalid Interpretation Code [facility] Comment on above: Performed By: #### 1 [id number] ####[facility] [id number] [place] [address] Calcium oxalate monohydrate (Stone) [Mass fraction] 50 % Invalid Interpretation Code [facility] Comment on above: Performed By: #### 1 [id number] ####[facility] [id number] [place] [address] Color (Stone) Brown Invalid Interpretation Code [facility] Comment on above: Performed By: #### 1 [id number] ####[facility] [id number] [place] [address] Composition Comment Invalid Interpretation Code [facility] Comment on above: Result Comment: Perc entage (Represents the % composition) Performed By: #### 1 [id number] ####[facility] [id number] [place] [address] Disclaimer: Comment Invalid Interpretation Code [facility] Comment on above: Result Comment: This test was developed and its performance characteristics determined by [facility]. It has not been cleared or approved by the Food and Drug Administration. Performed at: [address] [id number] [place] Performed By: #### 1 [id number] ####[facility] [address] [place] [address] Laboratory comment Gagandeep (Report) Comment Invalid Interpretation Code [facility] Comment on above: Result Comment: Alaina guaman questions regarding Calculi Analysis contact [facility] at: [phone]. Performed By: #### 1 [id number] ####[facility] [id number] [place] [address] Please Note: Comment Invalid Interpretation Code [facility] Comment on above: Result Comment: Calc deedee report will follow via computer, mail or taker off braker machine delivery. Performed By: #### 1 [id number] ####[facility] [id number] [place] [address] Size (Stone) [Entitic vol] 5x7 Invalid Interpretation Code [facility] Comment on above: Result Comment: Sing le piece received. Performed By: #### 1 [id number] ####[place] [id number] Specimen source subject Nom Comment Invalid Interpretation Code [facility] Comment on above: Result Comment: Not provided Performed By: #### 1 [id number] ####[address] [address] [place] Photo Comment Invalid Interpretation Code [facility] Comment on above: Result Comment: Phot ograph will follow under a separate cover Performed By: #### 1 [id number] ####[address] [address] Weight (Stone) 52 mg Invalid Interpretation Code [facility] Comment on above: Performed By: #### 1 [id number] ####[place] [address] [place] [address] RAD - MISCon 10-19-2023 RAD - MISC [id number] #1.00TIFF Normal [facility] POCT Protime / INRon 024 INR Coag (PPP) [Relative time] 2.0 {INR} Abnormal 0.8 - 1.2 [facility] Interpretation and review of laboratory results Abnormal [facility] Alanine aminotransferase [En zymatic activity/volume] in Serum or PlasmaOrdered By: Contreras Mcmillan on 10-04-2023 ALT [Catalytic activity/Vol] 16 U/L Normal [facility] Comment on above: Performed By: #### C MP, ESR, ADDONUAPLUS, CBC #### [facility] [address] [place] [address] [place] #### C4, C3, CH50 #### [facility] , Albumin [Mass/volume] in Ser um or Plasma by Bromocresol green (BCG) dye binding methoOrdered By: Contreras Crainrow on 10-04-2023 Albumin BCG dye [Mass/Vol] 4.3 g/dL 3.5-5.7 [facility] Alkaline phosphatase [Enzyma tic activity/volume] in Serum or PlasmaOrdered By: Contreras Mcmillan on 10-04-2023 ALP [Catalytic activity/Vol] 77 U/L Normal 34-104 [facility] Comment on above: Result Comment: PERF ORMED BY: [place] [address] PATHOLOGIST CREATIVE/ART DIRECTOR SUSAN ZHENG M.D. Performed By: #### C MP, ESR, ADDONUAPLUS, CBC #### [address] #### C4, C3, CH50 #### [facility] , Aspartate aminotransferase [ Enzymatic activity/volume] in Serum or PlasmaOrdered By: Contreras Mcmillan on 10-04-2023 AST [Catalytic activity/Vol] 15 U/L Normal 13-39 [facility] Comment on above: Performed By: #### C MP, ESR, ADDONUAPLUS, CBC #### [facility] [address] [place] [address] [place] #### C4, C3, CH50 #### [facility] , Automated basophil %Ordered By: Contreras Mcmillan on 10-04-2023 Basophils/100 WBC (Bld) 0.7 % Normal . [facility] Comment on above: Performed By: #### C MP, ESR, ADDONUAPLUS, CBC #### [facility] [address] [place] [address] [place] #### C4, C3, CH50 #### [facility] , Automated basophil countOrde red By: Contreras Mcmillan on 10-04-2023 Basophils (Bld) [#/Vol] 0.1 10*3/uL Normal 0.0-0.2 [facility] Comment on above: Performed By: #### C MP, ESR, ADDONUAPLUS, CBC #### [facility] [address] [place] [address] [place] #### C4, C3, CH50 #### [facility] , Automated blood monocyte cou ntOrdered By: Contreras Mcmillan on 10-04-2023 Monocytes (Bld) [#/Vol] 0.7 10*3/uL Normal 0.0-0.8 [facility] Comment on above: Performed By: #### C MP, ESR, ADDONUAPLUS, CBC #### [place] [address] [place] #### C4, C3, CH50 #### [facility] , Automated eosinophil %Ordere d By: Contreras Crainrow on 10-04-2023 Eosinophils/100 WBC (Bld) 0.7 % Normal . [facility] Comment on above: Performed By: #### C MP, ESR, ADDONUAPLUS, CBC #### [place] [address] [place] #### C4, C3, CH50 #### [facility] , Automated eosinophil countOr dered By: Contreras Crainrow on 10-04-2023 Eosinophils (Bld) [#/Vol] 0.1 10*3/uL Normal 0.0-0.45 [facility] Comment on above: Performed By: #### C MP, ESR, ADDONUAPLUS, CBC #### [place] [address] [place] #### C4, C3, CH50 #### [facility] , Automated erythrocytes count in urine sediment (number/area)Ordered By: Contreras Crainrow on 10-04-2023 RBC Auto (Urine sed) [#/Area] 3-4 [HPF] 0-4 [facility] Automated leukocytes count i n urine sediment (number/area)Ordered By: Contreras Deyanira on 10-04-2023 WBC Auto (Urine sed) [#/Area] 0-1 [HPF] 0-4 [facility] Automated monocyte %Ordered By: Contreras Crainrow on 10-04-2023 Monocytes/100 WBC (Bld) 8.6 % Normal . [facility] Comment on above: Performed By: #### C MP, ESR, ADDONUAPLUS, CBC #### [place] [address] [place] #### C4, C3, CH50 #### [facility] , Automated neutrophil %Ordere d By: Contreras Crainrow on 10-04-2023 Neutrophils/100 WBC (Bld) 72.0 % Normal . [facility] Comment on above: Performed By: #### C MP, ESR, ADDONUAPLUS, CBC #### [address] #### C4, C3, CH50 #### [facility] , Automated urine color determ inationOrdered By: Contreras Mcmillan on 10-04-2023 Color (U) Yellow Normal Yellow [facility] Comment on above: Order Comment: Name Collection Type:: Clean-Voided Midstream Performed By: #### C MP, ESR, ADDONUAPLUS, CBC #### [place] [address] [place] #### C4, C3, CH50 #### [facility] , Bilirubin Test strip Ql (U)O rdered By: Contrerasamerico Mcmillan on 10-04-2023 Bilirubin Ql (U) Negative Negative [facility] Bilirubin.total [Mass/volume ] in Serum or PlasmaOrdered By: Contreras Mcmillan on 10-04-2023 Bilirubin [Mass/Vol] 0.4 mg/dL Normal 0.3-1.0 [facility] Comment on above: Performed By: #### C MP, ESR, ADDONUAPLUS, CBC #### [place] [address] [place] #### C4, C3, CH50 #### [facility] , Calcium [Mass/volume] in Ser um or PlasmaOrdered By: Contreras Mcmillan on 10-04-2023 Calcium [Mass/Vol] 9.6 mg/dL Normal 8.6-10.3 [facility] Comment on above: Performed By: #### C MP, ESR, ADDONUAPLUS, CBC #### [place] [address] [place] #### C4, C3, CH50 #### [facility] , Carbon dioxide, total [Moles /volume] in Serum or PlasmaOrdered By: Contreras Crainrow on 10-04-2023 CO2 [Moles/Vol] 29.9 mmol/L Normal 21.0-31.0 [facility] Comment on above: Performed By: #### C MP, ESR, ADDONUAPLUS, CBC #### [place] [address] [place] #### C4, C3, CH50 #### [facility] , Chloride [Moles/volume] in S josé miguel or PlasmaOrdered By: Contreras Crainrow on 10-04-2023 Chloride [Moles/Vol] 99 mmol/L Normal 98-107 [facility] Comment on above: Performed By: #### C MP, ESR, ADDONUAPLUS, CBC #### [place] [address] [place] #### C4, C3, CH50 #### [facility] , Complement C3on 10-04-2023 Complement C3 162 mg/dL Normal 82-167 [facility] Comment on above: Result Comment: Perf ormed at: CB - [facility] [address] [id number] Fire And Safety Helper: Thony Mcmillan PhD, Phone: [phone] Performed By: #### C MP, ESR, ADDONUAPLUS, CBC #### [place] [address] [place] #### C4, C3, CH50 #### [facility] , Complement C4on 10-04-2023 Complement C4 42 mg/dL High 12-38 [facility] Comment on above: Result Comment: PERF ORMED BY: [place] [address] PATHOLOGIST CREATIVE/ART DIRECTOR SUSAN ZHENG M.D. Performed By: #### C MP, ESR, ADDONUAPLUS, CBC #### [address] #### C4, C3, CH50 #### [facility] , Complement Total (CH50)on Complement Total (CH50) >60 Normal >41 [facility] Comment on above: Result Comment: Age Male [...] of range values. Performed at: - [facility] [address] [id number] Fire And Safety Helper: Thony Mcmillan PhD, Phone: [phone] PERFORMED BY: [place] [address] PATHOLOGIST CREATIVE/ART DIRECTOR SUSAN ZHENG M.D. Performed By: #### C MP, ESR, ADDONUAPLUS, CBC #### [place] [address] [place] #### C4, C3, CH50 #### [facility] , Complete Blood Count Auto Di ffon 10-04-2023 Mean Corpuscular HGB Conc 33.4 g/dL Normal 32.0-35.0 [facility] Comment on above: Performed By: #### C MP, ESR, ADDONUAPLUS, CBC #### [place] [address] [place] #### C4, C3, CH50 #### [facility] , NRBC% 0.1 /100{WBC} Normal 0-0.5 [facility] Comment on above: Performed By: #### C MP, ESR, ADDONUAPLUS, CBC #### [place] [address] [place] #### C4, C3, CH50 #### [facility] , Comprehensive Metabolic Pane ifrah 10-04-2023 Albumin [Mass/Vol] 4.3 g/dL Normal 3.5-5.7 [facility] Comment on above: Performed By: #### C MP, ESR, ADDONUAPLUS, CBC #### [place] [address] [place] #### C4, C3, CH50 #### [facility] , GFR/1.73 sq M.predicted MDRD (S/P/Bld) [Vol rate/Area] 58.078 mL/min/{1.73_m2} Normal [facility] Comment on above: Performed By: #### C MP, ESR, ADDONUAPLUS, CBC #### [place] [address] [place] #### C4, C3, CH50 #### [facility] , Creatinine [Mass/volume] in Serum or PlasmaOrdered By: Contreras Mcmillan on 10-04-2023 Creatinine [Mass/Vol] 1.08 mg/dL Normal 0.60-1.20 [facility] Comment on above: Performed By: #### C MP, ESR, ADDONUAPLUS, CBC #### [place] [address] [place] #### C4, C3, CH50 #### [facility] , Dipstick and Microscopicon 0 10-04-2023 Appearance (U) Clear Normal Clear [facility] Comment on above: Order Comment: Name Collection Type:: Clean-Voided Midstream Performed By: #### C MP, ESR, ADDONUAPLUS, CBC #### [place] [address] [place] #### C4, C3, CH50 #### [facility] , Bacteria,Urine None Seen Normal None Seen [facility] Comment on above: Order Comment: Name Collection Type:: Clean-Voided Midstream Performed By: #### C MP, ESR, ADDONUAPLUS, CBC #### [address] #### C4, C3, CH50 #### [facility] , Bilirubin,Urine Negative Normal Negative [facility] Comment on above: Order Comment: Name Collection Type:: Clean-Voided Midstream Performed By: #### C MP, ESR, ADDONUAPLUS, CBC #### [address] #### C4, C3, CH50 #### [facility] , Glucose Ql (U) Normal Normal Normal [facility] Comment on above: Order Comment: Name Collection Type:: Clean-Voided Midstream Performed By: #### C MP, ESR, ADDONUAPLUS, CBC #### [address] #### C4, C3, CH50 #### [facility] , Hyaline Casts,Urine None Seen Normal 0-8 [facility] Comment on above: Order Comment: Name Collection Type:: Clean-Voided Midstream Result Comment: PERF ORMED BY: [place] [address] PATHOLOGIST CREATIVE/ART DIRECTOR USSAN ZHENG M.D. Performed By: #### C MP, ESR, ADDONUAPLUS, CBC #### [address] #### C4, C3, CH50 #### [facility] , Ketones Ql (U) Negative Normal Negative [facility] Comment on above: Order Comment: Name Collection Type:: Clean-Voided Midstream Performed By: #### C MP, ESR, ADDONUAPLUS, CBC #### [place] [address] [place] #### C4, C3, CH50 #### [facility] , Leukocyte esterase Test strip Ql (U) Negative Normal Negative [facility] Comment on above: Order Comment: Name Collection Type:: Clean-Voided Midstream Performed By: #### C MP, ESR, ADDONUAPLUS, CBC #### [place] [address] [place] #### C4, C3, CH50 #### [facility] , Nitrite,Urine Negative Normal Negative [facility] Comment on above: Order Comment: Name Collection Type:: Clean-Voided Midstream Performed By: #### C MP, ESR, ADDONUAPLUS, CBC #### [address] #### C4, C3, CH50 #### [facility] , Occult Blood,Urine 2+ High Negative [facility] Comment on above: Order Comment: Name Collection Type:: Clean-Voided Midstream Performed By: #### C MP, ESR, ADDONUAPLUS, CBC #### [address] #### C4, C3, CH50 #### [facility] , Protein,Urine Negative Normal Negative [facility] Comment on above: Order Comment: Name Collection Type:: Clean-Voided Midstream Performed By: #### C MP, ESR, ADDONUAPLUS, CBC #### [place] [address] [place] #### C4, C3, CH50 #### [facility] , RBC,Urine 3-4 Normal 0-4 [facility] Comment on above: Order Comment: Name Collection Type:: Clean-Voided Midstream Performed By: #### C MP, ESR, ADDONUAPLUS, CBC #### [place] [address] [place] #### C4, C3, CH50 #### [facility] , Specificy [place],Urine 1.011 Normal 1.001-1.030 [facility] Comment on above: Order Comment: Name Collection Type:: Clean-Voided Midstream Performed By: #### C MP, ESR, ADDONUAPLUS, CBC #### [address] #### C4, C3, CH50 #### [facility] , Squamous Epithelial Cell,Urine None Seen Normal 0-2 [facility] Comment on above: Order Comment: Name Collection Type:: Clean-Voided Midstream Performed By: #### C MP, ESR, ADDONUAPLUS, CBC #### [address] #### C4, C3, CH50 #### [facility] , Urobilinogen,Urine Normal Normal Normal [facility] Comment on above: Order Comment: Name Collection Type:: Clean-Voided Midstream Performed By: #### C MP, ESR, ADDONUAPLUS, CBC #### [address] #### C4, C3, CH50 #### [facility] , WBC LM.HPF (Urine sed) [#/Area] 0 /[HPF] Normal 0-4 [facility] Comment on above: Order Comment: Name Collection Type:: Clean-Voided Midstream Performed By: #### C MP, ESR, ADDONUAPLUS, CBC #### [address] #### C4, C3, CH50 #### [facility] , Erythrocyte Sedimentation Ra roman 10-04-2023 ESR (Bld) [Velocity] 26 mm/h Normal 0-29 [facility] Comment on above: Result Comment: PERF ORMED BY: [place] [address] PATHOLOGIST CREATIVE/ART DIRECTOR SUSAN ZHENG M.D. Performed By: #### C MP, ESR, ADDONUAPLUS, CBC #### [facility] [address] [place] [address] [place] #### C4, C3, CH50 #### [facility] , Erythrocyte distribution wid th [Ratio] by Automated countOrdered By: Contreras Mcmillan on 10-04-2023 Erythrocyte distribution width (RBC) [Ratio] 14.0 % Normal 11.9-15.3 [facility] Comment on above: Performed By: #### C MP, ESR, ADDONUAPLUS, CBC #### [place] [address] [place] #### C4, C3, CH50 #### [facility] , Erythrocyte sedimentation ra te by Photometric methodOrdered By: Contreras Mcmillan on 10-04-2023 ESR Photometric method (Bld) [Velocity] 26 mm/hr 0-29 [facility] Erythrocytes [#/volume] in B lood by Automated countOrdered By: Contreras Mcmillan on 10-04-2023 RBC (Bld) [#/Vol] 4.44 10*6/uL Normal 3.60-5.00 [facility] Comment on above: Performed By: #### C MP, ESR, ADDONUAPLUS, CBC #### [place] [address] [place] #### C4, C3, CH50 #### [facility] , Glucose [Mass/volume] in Ser um or PlasmaOrdered By: Contreras Mcmillan on 10-04-2023 Glucose [Mass/Vol] 128 mg/dL High 70-100 [facility] Comment on above: ADA recommended refe rence rangeRandom Glucose Reference Range is dependent on time and content of last meal. Glucose of more than 200 mg/dL in a nonstressed, ambulatory subject supports the diagnosis of Diabetes Mellitus. Result Comment: [place] om Glucose Reference Range is dependent on time and content of last meal. Glucose of more than 200 mg/dL in a nonstressed, ambulatory subject supports the diagnosis of Diabetes Mellitus. ADA recommended reference range Performed By: #### C MP, ESR, ADDONUAPLUS, CBC #### [facility] [address] [place] [address] [place] #### C4, C3, CH50 #### [facility] , Hematocrit [Volume Fraction] of Blood by Automated countOrdered By: Contreras Mcmillan on 10-04-2023 Hematocrit (Bld) [Volume fraction] 40.7 % Normal 34.0-46.4 [facility] Comment on above: Performed By: #### C MP, ESR, ADDONUAPLUS, CBC #### [facility] [address] [place] [address] [place] #### C4, C3, CH50 #### [facility] , Hemoglobin [Mass/volume] in BloodOrdered By: Contreras Mcmillan on 10-04-2023 Hemoglobin (Bld) [Mass/Vol] 13.6 g/dL Normal 11.8-15.4 [facility] Comment on above: Performed By: #### C MP, ESR, ADDONUAPLUS, CBC #### [facility] [address] [place] [address] [place] #### C4, C3, CH50 #### [facility] , Ketones Auto test strip (U) [Mass/Vol]Ordered By: Contreras Mcmillan on 10-04-2023 Ketones (U) [Mass/Vol] Negative Negative [facility] - UrinalysisOrder ed By: Contreras Mcmillan on 10-04-2023 Hyaline casts LM Ql (Urine sed) None seen [LPF] 0-8 [facility] Leukocytes [#/volume] correc jw for nucleated erythrocytes in Blood by Automated counOrdered By: Contreras Mcmillan on 10-04-2023 WBC corrected for nucl RBC Auto (Bld) [#/Vol] 8.7 10*3/uL 3.8-11.6 [facility] Leukocytes [#/volume] in Blo od by Automated countOrdered By: Contreras Mcmillan on 10-04-2023 WBC (Bld) [#/Vol] 8.7 10*3/uL Normal 3.8-11.6 [facility] Comment on above: Performed By: #### C MP, ESR, ADDONUAPLUS, CBC #### [facility] [address] [place] [address] [place] #### C4, C3, CH50 #### [facility] , Lymphocytes [#/volume] in Bl ood by Automated countOrdered By: Contreras Crainrow on 10-04-2023 Lymphocytes (Bld) [#/Vol] 1.6 10*3/uL Normal 1.00-4.8 [facility] Comment on above: Performed By: #### C MP, ESR, ADDONUAPLUS, CBC #### [place] [address] [place] #### C4, C3, CH50 #### [facility] , Lymphocytes/100 leukocytes i n Blood by Automated countOrdered By: Contreras Mcmillan on 10-04-2023 Lymphocytes/100 WBC (Bld) 18.0 % Normal . [facility] Comment on above: Performed By: #### C MP, ESR, ADDONUAPLUS, CBC #### [facility] [address] [place] [address] [place] #### C4, C3, CH50 #### [facility] , MCH [Entitic mass] by Automa jw countOrdered By: Contreras Deyanira on 10-04-2023 MCH (RBC) [Entitic mass] 30.6 pg Normal 24.7-34.3 [facility] Comment on above: Performed By: #### C MP, ESR, ADDONUAPLUS, CBC #### [facility] [address] [place] [address] [place] #### C4, C3, CH50 #### [facility] , MCHC Auto (RBC) [Mass/Vol]Or dered By: Contreras Mcmillan on 10-04-2023 MCHC (RBC) [Mass/Vol] 33.4 g/dL 32.0-35.0 [facility] MCV [Entitic volume] by Auto mated countOrdered By: Contreras Mcmillan on 10-04-2023 MCV (RBC) [Entitic vol] 91.6 fL Normal 80-100 [facility] Comment on above: Performed By: #### C MP, ESR, ADDONUAPLUS, CBC #### [place] [address] [place] #### C4, C3, CH50 #### [facility] , Neutrophils [#/volume] in Bl ood by Automated countOrdered By: Contreras Mcmillan on 10-04-2023 Neutrophils (Bld) [#/Vol] 6.3 10*3/uL Normal 1.8-7.7 [facility] Comment on above: Performed By: #### C MP, ESR, ADDONUAPLUS, CBC #### [place] [address] [place] #### C4, C3, CH50 #### [facility] , Nitrite Test strip Ql (U)Ord ered By: Contreras Mcmillan on 10-04-2023 Nitrite Ql (U) Negative Negative [facility] No Panel InformationOrdered By: Contreras Mcmillan on 10-04-2023 Estimated GFR (CKD-EPI) 58.078 mL/Min [facility] Creatinine Clearance (Chem N/A [facility] Nucleated erythrocytes [Pres ence] in Blood by Automated countOrdered By: Contreras Mcmillan on 10-04-2023 Nucleated RBC Auto Ql (Bld) 0.1 /100{WBC} 0-0.5 [facility] Platelet mean volume [Entiti c volume] in Blood by Automated countOrdered By: Contreras Mcmillan on 10-04-2023 Platelet mean volume (Bld) [Entitic vol] 8.3 fL Normal 6.3-10.7 [facility] Comment on above: Performed By: #### C MP, ESR, ADDONUAPLUS, CBC #### [place] [address] [place] #### C4, C3, CH50 #### [facility] , Platelets [#/volume] in Bloo d by Automated countOrdered By: Contreras Mcmillan on 10-04-2023 Platelets (Bld) [#/Vol] 268 10*3/uL Normal 150-450 [facility] Comment on above: Performed By: #### C MP, ESR, ADDONUAPLUS, CBC #### [place] [address] [place] #### C4, C3, CH50 #### [facility] , Potassium [Moles/volume] in Serum or PlasmaOrdered By: Contreras Mcmillan on 10-04-2023 Potassium [Moles/Vol] 4.0 mmol/L Normal 3.5-5.1 [facility] Comment on above: Performed By: #### C MP, ESR, ADDONUAPLUS, CBC #### [place] [address] [place] #### C4, C3, CH50 #### [facility] , Protein Auto test strip (U) [Mass/Vol]Ordered By: Contreras Mcmillan on 10-04-2023 Protein (U) [Mass/Vol] Negative Negative [facility] Protein [Mass/volume] in Ser um or PlasmaOrdered By: Contreras Mcmillan on 10-04-2023 Protein [Mass/Vol] 7.0 g/dL Normal 6.4-8.9 [facility] Comment on above: Performed By: #### C MP, ESR, ADDONUAPLUS, CBC #### [place] [address] [place] #### C4, C3, CH50 #### [facility] , Serum globulin measurement b y calculation (mass/volume)Ordered By: Contreras Crainrow on 10-04-2023 Globulin (S) [Mass/Vol] 2.7 g/dL Normal [facility] Comment on above: Performed By: #### C MP, ESR, ADDONUAPLUS, CBC #### [place] [address] [place] #### C4, C3, CH50 #### [facility] , Serum or plasma albumin/glob ulin mass ratioOrdered By: Contreras Mcmillan on 10-04-2023 Albumin/Globulin [Mass ratio] 1.6 {ratio} Normal [facility] Comment on above: Performed By: #### C MP, ESR, ADDONUAPLUS, CBC #### [facility] [address] [place] [address] [place] #### C4, C3, CH50 #### [facility] , Serum or plasma anion gap de terminationOrdered By: Contreras Mcmillan on 10-04-2023 Anion gap [Moles/Vol] 12.1 mmol/L Normal 6.0-15.0 [facility] Comment on above: Performed By: #### C MP, ESR, ADDONUAPLUS, CBC #### [facility] [address] [place] [address] [place] #### C4, C3, CH50 #### [facility] , Sodium [Moles/volume] in Ser um or PlasmaOrdered By: Contreras Mcmillan on 10-04-2023 Sodium [Moles/Vol] 137 mmol/L Normal 136-145 [facility] Comment on above: Performed By: #### C MP, ESR, ADDONUAPLUS, CBC #### [facility] [address] [place] [address] [place] #### C4, C3, CH50 #### [facility] , Specific gravity Auto test s trip (U) [Rel density]Ordered By: Contreras Mcmillan on 10-04-2023 Specific gravity (U) [Rel density] 1.011 1.001-1.030 [facility] Squamous epithelial cells de tection in urine sediment by light microscopyOrdered By: Contreras Mcmillan on 10-04-2023 Epithelial cells.squamous LM Ql (Urine sed) None seen [HPF] 0-2 [facility] Urea nitrogen [Mass/volume] in Serum or PlasmaOrdered By: Contreras Mcmillan on 10-04-2023 Urea nitrogen [Mass/Vol] 14 mg/dL Normal 7-25 [facility] Comment on above: Performed By: #### C MP, ESR, ADDONUAPLUS, CBC #### [facility] [address] [place] [address] #### C4, C3, CH50 #### [facility] , Urine bacteria detection by automated methodOrdered By: Contreras Mcmillan on 10-04-2023 Bacteria Auto Ql (U) None seen None Seen [facility] Urine clarity by refractomet ry automatedOrdered By: Contreras Mcmillan on 10-04-2023 Clarity Refractometry automated (U) Clear Clear [facility] Urine glucose measurement by automated test strip (mass/volume)Ordered By: Contreras Mcmillan on 10-04-2023 Glucose Auto test strip (U) [Mass/Vol] Normal mg/dL Normal [facility] Urine hemoglobin detection b y automated test stripOrdered By: Contreras Mcmillan on 10-04-2023 Hemoglobin Auto test strip Ql (U) 2+ Negative [facility] Urine leukocyte esterase det ection by automated test stripOrdered By: Contreras Mcmillan on 10-04-2023 Leukocyte esterase Auto test strip Ql (U) Negative Negative [facility] Urine pH measurement by auto mated test stripOrdered By: Contreras Mcmillan on 10-04-2023 pH (U) 6.0 [pH] Normal 5.0-9.0 [facility] Comment on above: Order Comment: Name Collection Type:: Clean-Voided Midstream Performed By: #### C MP, ESR, ADDONUAPLUS, CBC #### [facility] [address] [place] [address] [place] #### C4, C3, CH50 #### [facility] , Urobilinogen Auto test strip (U) [Mass/Vol]Ordered By: Contreras Mcmillan on 10-04-2023 Urobilinogen (U) [Mass/Vol] Normal mg/dL Normal [facility] Ambulatory Visit Summaryon 0 09-28-2023 Ambulatory Visit Summary NOEMI BRAND :1960 Visit Date:09/28/2023 Ambulatory Visit Instructions Your Care Team Attending Physician - DIANA GARRETT PA-C Primary Care Physician - ALEXANDER CHEN [...] mg Tab) gabapentin (Neurontin 300 mg Cap) nitrofurantoin (Macrobid 100 mg Cap) omega-3 polyunsaturated fatty acids (Fish [...] Appointments Wednesday 10:00 AM EST With: DIANA GARRETT PA-C Where: [facility] C Urineon 09-26-2023 Bacteria identified Cx Nom (U) Microbiology PROCEDURE: Urine Culture [R1] SOURCE: U CleanCatch BODY SITE: COLLECTED DATE/TIME: 09/24/2023 13:25 EST RECEIVED DATE/TIME: 09/24/2023 17:33 EST START DATE/TIME: 09/24/2023 17:34 EST FREE TEXT SOURCE: Samina FERGUSON, YANIRA-C, Samina FERGUSON, YANIRA-C, Leann X Leann X FINAL REPORTS Final Report [] Verified Date/Time: 09/26/2023 07:14 EST 1,000 cfu/ml Mixed skin contaminants Performing Locations R1: This test was performed at: [facility], [address] [place] [address], [id number] , [place], Normal [facility] Comment on above: Performed By: #### 2 [id number] ####[facility] [address] [place] [address] Ambulatory Visit Summaryon 0 09-24-2023 Ambulatory Visit Summary NOEMI BRAND :1960 Visit Date:09/24/2023 Ambulatory Visit Instructions Your Diagnosis Chronic lower urinary tract infection Tests Performed Urnls Dip Stick Auto w/o Microscopy POC 01194 Your Care Team Attending Physician - DIANA GARRETT PA-C Primary Care Physician - ALEXANDER CHEN [...] mg Tab) gabapentin (Neurontin 300 mg Cap) nitrofurantoin (Macrobid 100 mg Cap) omega-3 polyunsaturated fatty acids (Fish [...] Follow-Up Appointments Wednesday 10:00 AM EST With: GERRY SAPP, DIANA Miller Where: [facility] POCT Protime / INRon 024 INR Coag (PPP) [Relative time] 1.9 {INR} Abnormal 0.8 - 1.2 [facility] Interpretation and review of laboratory results [facility] Pain Management Office/Clini c Noteon 09-23-2023 Pain Management Office/Clinic Note Chief Complaint left mid back & low back pain History of Present Illness Patient presents today for evaluation regarding thoracic pain as well as low back pain. Patient underwent a bilateral T9-10 TFESI 08/19/2023 reports 100% improvement on the right with minimal pain relief on the left. Patient continues report the left-sided thoracic pain severe enough to affect activities day living and quality of life Historically, patient has garnered significant improvement of pain with the left T9-10, T10-11 TFESI. Previous encounter was performed bilaterally at T9-10 as patient was also having right-sided pain. She reports significant improvement of right-sided pain but has significant left-sided pain ongoing Patient has engaged in a 6 week course of provider directed, home based physiological therapies within the last 3 months. In addition, a six-week trial of activity modification has failed to give reprieve. Patient has also failed to respond optimally to oral analgesic regimen Oswestry Disability Form AM Behavior: Better PM Pain Intensity: The pain is fairly severe at the moment Day Progresses Behavior: Worse PM Personal Care: I can look after myself but it causes extra pain PM Behavior: Worse PM Sitting: Pain prevents me from sitting more than one hour Pain location and laterality: left mid back & low back pain PM Pain Lifting: Pain prevents me from lifting heavy weights, but I can manage light to medium weights if they are convieniently positioned Pain quality: Sharp, Throbbing PM Walking: Pain prevents me from walking more than 1/2 mile Pain Pattern: Constant PM Standing: Pain prevents me from standing form more than 30 minutes Pain rate at rest: 5 PM Sleeping: My sleep is occasionally disturbed by pain Pain rate with activity: 9 PM Sex Life: My sex life is normal and causes no pain/NA Bending: Aggravating PM Social Life: Pain has restricted my social life and I do not go out as often Cold/Ice: Alleviating PM Traveling: I can travel anywhere but it gives me extra pain Lifting: Aggravating PM Oswestry Score: 38 Lying: Alleviating PM Oswestry Score Interpretation: 21% to 40% Moderate Disability: The patient experiences more pain and difficulty with travel, social life, sitting, lifting and standing, and may be disabled from work. The patient can usually be managed by conservative means. Medications: Alleviating Pushing/Pulling: Aggravating Standing: Aggravating Sensory impairment location: denies Pain since last visit: Improved Procedure 1: Therapeutic nerve root/TFESI Procedure Date 1: 08/19/23 Procedure Comments 1: BILATERAL T9-10 TRANSFORAMINAL EPIDURAL STEROID INJECTION Pain Improvement 1: Significant (70-100% relief) Pain Improvement Comments 1: 100% RELIEF ON RIGHT SIDE CONTINUESMINIMAL RELIEF ON LEFT SIDE CONTINUES Date Tens: n/a Date Chiropractor: hx Date PT: hx Comments PT: HEP-stretching Date Injections: prn Date Surgery: Hx Frequency Surgery: x1, x1,x1 Effective Surgery: neck 2009 , thorcaic 2019, & lumbar surgery 1994 Recent testing: No Loss of bladder/bowel: Denies [...] plan Physical Exam Vitals & Measurements HR: 78 (Peripheral) RR: 16 BP: 143/88 HT: 166 cm General -Appears stated age. No apparent distress. Psychological - Normal mood and affect. HEENT - Normocephalic/Atraum atic Neurologic-alert and oriented x4 Respiratory - No obvious distress, No shortness of breath. Dysesthesia light touch left T10 dermatomal pattern Well-healed cervical incision previous fusion Additional Vitals BP Position/Location: Sitting Assessment/Plan 1. Thoracic neuritis Patient has neurogenic discomfort secondary to disc and spondylitic reactivity precipitating neural foraminal narrowing and lateral recess stenosis. For complaints that have failed conservative measures, candidacy has been established for epidural steroid blockade transforaminal approach in attempt to potentiate therapeutic benefit. Risks benefits alternatives have been discussed, we agree to proceed. Patient be scheduled for left T10-11 TFESI under fluoroscopic guidance and attempts to palliate left-sided thoracic pain Ordered: Cervical/Thoracic Transforaminal Epidural Steroid Injection 2. Cervical postlaminectomy syndrome 3. Chronic cervical pain 4. Chronic low back pain Medical Decision Making Chronic conditions NOT treated during this visit that affected my overall medical decision making: [GERD] I have reviewed the (more content not included)... Normal [facility] RAD - CT Reporton 09-17-2023 RAD - CT Report [id number] #1.00TIFF Normal [facility] C Urineon 09-16-2023 Bacteria identified Cx Nom (U) Microbiology PROCEDURE: Urine Culture [R1] SOURCE: U CleanCatch BODY SITE: COLLECTED DATE/TIME: 09/14/2023 15:40 EST RECEIVED DATE/TIME: 09/14/2023 17:48 EST START DATE/TIME: 09/14/2023 17:48 EST FREE TEXT SOURCE: DIAAN GARRETT PA-C, PA-C, JENNIFER E FINAL REPORTS Final Report [] Verified Date/Time: 09/16/2023 06:57 EST 5,000 cfu/ml Mixed skin contaminants Performing Locations R1: This test was performed at: [facility], [address] [place] [address], [id number]- , [place], Normal [facility] Comment on above: Performed By: #### 2 [id number] ####[facility] [address] [place] [address] Ambulatory Visit Summaryon 0 09-14-2023 Ambulatory Visit Summary NOEMI BRAND :1960 Visit Date:09/14/2023 Ambulatory Visit Instructions Your Diagnosis Feeling of incomplete bladder emptying Tests Performed Urnls Dip Stick Auto w/o Microscopy POC 44214 Your Care Team Attending Physician - DIANA GARRETT PA-C Primary Care Physician - ALEXANDER CHEN [...] Appointments Wednesday 10:00 AM EST With: DIANA GARRETT PA-C Where: [facility] RAD - MISCon 08-30-2023 RAD - MISC [id number] #1.00TIFF [facility] RAD - Ultrasound Reporton RAD - Ultrasound Report [id number] #1.00TIFF [facility] RAD - MISCon 08-26-2023 RAD - MISC [id number] #1.00TIFF [facility] RAD - Ultrasound Reporton RAD - Ultrasound Report [id number] #1.00TIFF [facility] Screenson 08-26-2023 Screens [id number] #1.00TIFF [facility] Patient Educationon 08-25-20 23 Patient Education Nephrology Dietary Guidelines to Help [...] Spinach (cooked), rhubarb, beets, sweet potatoes, and Czech chard. ? Peanuts. ? Potato chips, serbian fries, and baked potatoes with skin on. ? Nuts and nut products. ? Chocolate. ? If you regularly take a diuretic medicine, make sure to eat at least 1 or 2 servings of fruits or vegetables that are high in potassium each day. These include: ? Avocado. ? Banana. ? [place], prune, carrot, or tomato juice. ? Baked [...] fish oil, or vitamin B6. ? Take jecc-coa-juzdike and prescription medicines only as told by your health care provider. These include supplements. What foods sh (more content not included)... Normal [facility] Reminderson 08-25-2023 Reminders - From: Franchesca Gracia To: EU - Recalls Gerry; Sent: 08/25/2023 13:41:26 EST Show up: 06/25/2024 14:41:00 EDT Subject: Imaging Due Date/Time: 08/25/2024 13:41:00 EST Pt is to get LUCY and KUB done prior to appt. Pt prefers [facility]. Normal [facility] Urology Office/Clinic Noteon 08-25-2023 Urology Office/Clinic Note Chief Complaint 1yr LUCY [...] Will monitor. Follow-up With When Contact Information DIANA GARRETT PA-C, URL In 1 year [address] [place] [address] Additional Instructions: w/KUB and LUCY Patient Education Dietary Guidelines to Help Prevent Kidney Stones I, Franchesca Gracia, personally scribed for Diana Garrett PA-C on 08/25/2023 13:39:52. . Documentation recorded by the scribpaul Gracia accurately reflects the services(s) I performed and decisions made by me. Authenticated by Diana Garrett PA-C on 08/25/2023 13:48:56. Problem List/Past Medical [...] oral tab (more content not included)... Normal [facility] Comment on above: Result Comment: Elec tronically Signed By: DIANA GARRETT PA-C\.br\Date and Time Signed: 08/25/23 13:49 EST\.br\Electronically Co-Signed By: Franchesca Gracia.br\Date and Time Co-Signed: 08/25/23 13:40 EST Pain [...] to oral analgesic regimen Oswestry Disability Form Behavior: Worse PM Pain Intensity: The pain [...] system. Pl (more content not included)... Normal [facility] Complement C3on 06-25-2023 Complement C3 139 mg/dL Normal 82-167 [facility] Comment on above: Result Comment: Perf ormed at: [address] [id number] Fire And Safety Helper: Thony Mcmillan PhD, Phone: [phone] Performed By: #### C MP, ESR, ADDONUAPLUS, CBC #### [address] #### C4, C3, CH50 #### [facility] , Complement C4on 06-25-2023 Complement C4 34 mg/dL Normal 12-38 [facility] Comment on above: Result Comment: PERF ORMED BY: [place] [address] PATHOLOGIST CREATIVE/ART DIRECTOR SUSAN ZHENG M.D. Performed By: #### C MP, ESR, ADDONUAPLUS, CBC #### [address] #### C4, C3, CH50 #### [facility] , Complement Total (CH50)on Complement Total (CH50) >60 Normal >41 [facility] Comment on above: Result Comment: Age Male [...] determine out of range values. Performed at: [address] [id number] Fire And Safety Helper: Thony Mcmillan PhD, Phone: [phone] PERFORMED BY: [place] [address] PATHOLOGIST CREATIVE/ART DIRECTOR SUSAN ZHENG M.D. Performed By: #### C MP, ESR, ADDONUAPLUS, CBC #### [place] [address] [place] #### C4, C3, CH50 #### [facility] , Complete Blood Count Auto Di ffon 06-25-2023 Basophils (Bld) [#/Vol] 0.0 10*3/uL Normal 0.0-0.2 [facility] Comment on above: Performed By: #### C MP, ESR, ADDONUAPLUS, CBC #### [address] #### C4, C3, CH50 #### [facility] , Basophils/100 WBC (Bld) 0.6 % Normal . [facility]n [facility] Comment on above: Performed By: #### C MP, ESR, ADDONUAPLUS, CBC #### [address] #### C4, C3, CH50 #### [facility] , Eosinophils (Bld) [#/Vol] 0.1 10*3/uL Normal 0.0-0.45 [facility] Comment on above: Performed By: #### C MP, ESR, ADDONUAPLUS, CBC #### [place] [address] [place] #### C4, C3, CH50 #### [facility] , Eosinophils/100 WBC (Bld) 0.9 % Normal . [facility] Comment on above: Performed By: #### C MP, ESR, ADDONUAPLUS, CBC #### [place] [address] [place] #### C4, C3, CH50 #### [facility] , Erythrocyte distribution width (RBC) [Ratio] 14.8 % Normal 11.9-15.3 [facility] Comment on above: Performed By: #### C MP, ESR, ADDONUAPLUS, CBC #### [place] [address] [place] #### C4, C3, CH50 #### [facility] , Hematocrit (Bld) [Volume fraction] 40.3 % Normal 34.0-46.4 [facility] Comment on above: Performed By: #### C MP, ESR, ADDONUAPLUS, CBC #### [place] [address] [place] #### C4, C3, CH50 #### [facility] , Hemoglobin (Bld) [Mass/Vol] 13.4 g/dL Normal 11.8-15.4 [facility] Comment on above: Performed By: #### C MP, ESR, ADDONUAPLUS, CBC #### [place] [address] [place] #### C4, C3, CH50 #### [facility] , Lymphocytes (Bld) [#/Vol] 2.2 10*3/uL Normal 1.00-4.8 [facility] Comment on above: Performed By: #### C MP, ESR, ADDONUAPLUS, CBC #### [place] [address] [place] #### C4, C3, CH50 #### [facility] , Lymphocytes/100 WBC (Bld) 33.5 % Normal . [facility] Comment on above: Performed By: #### C MP, ESR, ADDONUAPLUS, CBC #### [place] [address] [place] #### C4, C3, CH50 #### [facility] , MCH (RBC) [Entitic mass] 30.0 pg Normal 24.7-34.3 [facility] Comment on above: Performed By: #### C MP, ESR, ADDONUAPLUS, CBC #### [place] [address] [place] #### C4, C3, CH50 #### [facility] , MCV (RBC) [Entitic vol] 90.5 fL Normal 80-100 [facility] Comment on above: Performed By: #### C MP, ESR, ADDONUAPLUS, CBC #### [place] [address] [place] #### C4, C3, CH50 #### [facility] , Mean Corpuscular HGB Conc 33.2 g/dL Normal 32.0-35.0 [facility] Comment on above: Performed By: #### C MP, ESR, ADDONUAPLUS, CBC #### [place] [address] [place] #### C4, C3, CH50 #### [facility] , Monocytes (Bld) [#/Vol] 0.8 10*3/uL Normal 0.0-0.8 [facility] Comment on above: Performed By: #### C MP, ESR, ADDONUAPLUS, CBC #### [place] [address] [place] #### C4, C3, CH50 #### [facility] , Monocytes/100 WBC (Bld) 12.0 % Normal . [facility] Comment on above: Performed By: #### C MP, ESR, ADDONUAPLUS, CBC #### [place] [address] [place] #### C4, C3, CH50 #### [facility] , Neutrophils (Bld) [#/Vol] 3.4 10*3/uL Normal 1.8-7.7 [facility] Comment on above: Performed By: #### C MP, ESR, ADDONUAPLUS, CBC #### [place] [address] [place] #### C4, C3, CH50 #### [facility] , Neutrophils/100 WBC (Bld) 53.0 % Normal . [facility] Comment on above: Performed By: #### C MP, ESR, ADDONUAPLUS, CBC #### [place] [address] [place] #### C4, C3, CH50 #### [facility] , NRBC% 0.1 /100{WBC} Normal 0-0.5 [facility] Comment on above: Performed By: #### C MP, ESR, ADDONUAPLUS, CBC #### [place] [address] [place] #### C4, C3, CH50 #### [facility] , Platelet mean volume (Bld) [Entitic vol] 8.9 fL Normal 6.3-10.7 [facility] Comment on above: Performed By: #### C MP, ESR, ADDONUAPLUS, CBC #### [address] #### C4, C3, CH50 #### [facility] , Platelets (Bld) [#/Vol] 243 10*3/uL Normal 150-450 [facility] Comment on above: Performed By: #### C MP, ESR, ADDONUAPLUS, CBC #### [place] [address] [place] #### C4, C3, CH50 #### [facility] , RBC (Bld) [#/Vol] 4.45 10*6/uL Normal 3.60-5.00 [facility] Comment on above: Performed By: #### C MP, ESR, ADDONUAPLUS, CBC #### [place] [address] [place] #### C4, C3, CH50 #### [facility] , WBC (Bld) [#/Vol] 6.5 10*3/uL Normal 3.8-11.6 [facility] Comment on above: Performed By: #### C MP, ESR, ADDONUAPLUS, CBC #### [place] [address] [place] #### C4, C3, CH50 #### [facility] , Comprehensive Metabolic Pane ifrah 06-25-2023 Albumin [Mass/Vol] 4.2 g/dL Normal 3.5-5.7 [facility] Comment on above: Performed By: #### C MP, ESR, ADDONUAPLUS, CBC #### [place] [address] [place] #### C4, C3, CH50 #### [facility] , Albumin/Globulin [Mass ratio] 1.8 {ratio} Normal [facility] Comment on above: Performed By: #### C MP, ESR, ADDONUAPLUS, CBC #### [place] [address] [place] #### C4, C3, CH50 #### [facility] , ALP [Catalytic activity/Vol] 86 U/L Normal 34-104 [facility] Comment on above: Result Comment: PERF ORMED BY: [place] [address] PATHOLOGIST CREATIVE/ART DIRECTOR SUSAN ZHENG M.D. Performed By: #### C MP, ESR, ADDONUAPLUS, CBC #### [address] #### C4, C3, CH50 #### [facility] , ALT [Catalytic activity/Vol] 19 U/L Normal 7-52 [facility] Comment on above: Performed By: #### C MP, ESR, ADDONUAPLUS, CBC #### [place] [address] [place] #### C4, C3, CH50 #### [facility] , Anion gap [Moles/Vol] 10.5 mmol/L Normal 6.0-15.0 Th e [facility] Comment on above: Performed By: #### C MP, ESR, ADDONUAPLUS, CBC #### [place] [address] [place] #### C4, C3, CH50 #### [facility] , AST [Catalytic activity/Vol] 16 U/L Normal 13-39 [facility] Comment on above: Performed By: #### C MP, ESR, ADDONUAPLUS, CBC #### [place] [address] [place] #### C4, C3, CH50 #### [facility] , Bilirubin [Mass/Vol] 0.3 mg/dL Normal 0.3-1.0 [facility] Comment on above: Performed By: #### C MP, ESR, ADDONUAPLUS, CBC #### [place] [address] [place] #### C4, C3, CH50 #### [facility] , Calcium [Mass/Vol] 9.2 mg/dL Normal 8.6-10.3 [facility] Comment on above: Performed By: #### C MP, ESR, ADDONUAPLUS, CBC #### [place] [address] [place] #### C4, C3, CH50 #### [facility] , Chloride [Moles/Vol] 102 mmol/L Normal 98-107 [facility] Comment on above: Performed By: #### C MP, ESR, ADDONUAPLUS, CBC #### [place] [address] [place] #### C4, C3, CH50 #### [facility] , CO2 [Moles/Vol] 30.5 mmol/L Normal 21.0-31.0 [facility] Comment on above: Performed By: #### C MP, ESR, ADDONUAPLUS, CBC #### [place] [address] [place] #### C4, C3, CH50 #### [facility] , Creatinine [Mass/Vol] 0.96 mg/dL Normal 0.60-1.20 [facility] Comment on above: Performed By: #### C MP, ESR, ADDONUAPLUS, CBC #### [place] [address] [place] #### C4, C3, CH50 #### [facility] , GFR/1.73 sq M.predicted MDRD (S/P/Bld) [Vol rate/Area] mL/min/{1.73_m2} Normal [facility] Comment on above: Performed By: #### C MP, ESR, ADDONUAPLUS, CBC #### [place] [address] [place] #### C4, C3, CH50 #### [facility] , Globulin (S) [Mass/Vol] 2.4 g/dL Normal T he [facility] Comment on above: Performed By: #### C MP, ESR, ADDONUAPLUS, CBC #### [place] [address] [place] #### C4, C3, CH50 #### [facility] , Glucose [Mass/Vol] 110 mg/dL High 70-100 [facility] Comment on above: Result Comment: [facility] Glucose Reference Range is dependent on time and content of last meal. Glucose of more than 200 mg/dL in a nonstressed, ambulatory subject supports the diagnosis of Diabetes Mellitus. ADA recommended reference range Performed By: #### C MP, ESR, ADDONUAPLUS, CBC #### [place] [address] [place] #### C4, C3, CH50 #### [facility] , Potassium [Moles/Vol] 4.0 mmol/L Normal 3.5-5.1 [facility] Comment on above: Performed By: #### C MP, ESR, ADDONUAPLUS, CBC #### [place] [address] [place] #### C4, C3, CH50 #### [facility] , Protein [Mass/Vol] 6.6 g/dL Normal 6.4-8.9 [facility] Comment on above: Performed By: #### C MP, ESR, ADDONUAPLUS, CBC #### [place] [address] [place] #### C4, C3, CH50 #### [facility] , Sodium [Moles/Vol] 139 mmol/L Normal 136-145 [facility] Comment on above: Performed By: #### C MP, ESR, ADDONUAPLUS, CBC #### [place] [address] [place] #### C4, C3, CH50 #### [facility] , Urea nitrogen [Mass/Vol] 19 mg/dL Normal 7-25 [facility] Comment on above: Performed By: #### C MP, ESR, ADDONUAPLUS, CBC #### [place] [address] [place] #### C4, C3, CH50 #### [facility] , Dipstick and Microscopicon 1 Appearance (U) Clear Normal Clear [facility] Comment on above: Order Comment: Name Collection Type:: Clean-Voided Midstream Performed By: #### C MP, ESR, ADDONUAPLUS, CBC #### [address] #### C4, C3, CH50 #### [facility] , Bacteria,Urine None Seen Normal None Seen [facility] Comment on above: Order Comment: Name Collection Type:: Clean-Voided Midstream Performed By: #### C MP, ESR, ADDONUAPLUS, CBC #### [place] [address] [place] #### C4, C3, CH50 #### [facility] , Bilirubin,Urine Negative Normal Negative [facility] Comment on above: Order Comment: Name Collection Type:: Clean-Voided Midstream Performed By: #### C MP, ESR, ADDONUAPLUS, CBC #### [address] #### C4, C3, CH50 #### [facility] , Color (U) Yellow Normal Yellow [facility] Comment on above: Order Comment: Name Collection Type:: Clean-Voided Midstream Performed By: #### C MP, ESR, ADDONUAPLUS, CBC #### [address] #### C4, C3, CH50 #### [facility] , Glucose Ql (U) Normal Normal Normal [facility] Comment on above: Order Comment: Name Collection Type:: Clean-Voided Midstream Performed By: #### C MP, ESR, ADDONUAPLUS, CBC #### [address] #### C4, C3, CH50 #### [facility] , Hyaline Casts,Urine 0-8 Normal 0-8 [facility] Comment on above: Order Comment: Name Collection Type:: Clean-Voided Midstream Result Comment: PERF ORMED BY: [place] [address] PATHOLOGIST CREATIVE/ART DIRECTOR SUSAN ZHENG M.D. Performed By: #### C MP, ESR, ADDONUAPLUS, CBC #### [address] #### C4, C3, CH50 #### [facility] , Ketones Ql (U) Negative Normal Negative [facility] Comment on above: Order Comment: Name Collection Type:: Clean-Voided Midstream Performed By: #### C MP, ESR, ADDONUAPLUS, CBC #### [address] #### C4, C3, CH50 #### [facility] , Leukocyte esterase Test strip Ql (U) 1+ High Negative [facility] Comment on above: Order Comment: Name Collection Type:: Clean-Voided Midstream Performed By: #### C MP, ESR, ADDONUAPLUS, CBC #### [address] #### C4, C3, CH50 #### [facility] , Nitrite,Urine Negative Normal Negative [facility] Comment on above: Order Comment: Name Collection Type:: Clean-Voided Midstream Performed By: #### C MP, ESR, ADDONUAPLUS, CBC #### [address] #### C4, C3, CH50 #### [facility] , Occult Blood,Urine Negative Normal Negative [facility] Comment on above: Order Comment: Name Collection Type:: Clean-Voided Midstream Performed By: #### C MP, ESR, ADDONUAPLUS, CBC #### [address] #### C4, C3, CH50 #### [facility] , pH (U) 5.5 [pH] Normal 5.0-9.0 [facility] Comment on above: Order Comment: Name Collection Type:: Clean-Voided Midstream Performed By: #### C MP, ESR, ADDONUAPLUS, CBC #### [address] #### C4, C3, CH50 #### [facility] , Protein,Urine Negative Normal Negative [facility] Comment on above: Order Comment: Name Collection Type:: Clean-Voided Midstream Performed By: #### C MP, ESR, ADDONUAPLUS, CBC #### [address] #### C4, C3, CH50 #### [facility] , RBC LM.HPF (Urine sed) [#/Area] 0 /[HPF] Normal 0-4 [facility] Comment on above: Order Comment: Name Collection Type:: Clean-Voided Midstream Performed By: #### C MP, ESR, ADDONUAPLUS, CBC #### [address] #### C4, C3, CH50 #### [facility] , Specificy [place],Urine 1.013 Normal 1.001-1.030 [facility] Comment on above: Order Comment: Name Collection Type:: Clean-Voided Midstream Performed By: #### C MP, ESR, ADDONUAPLUS, CBC #### [address] #### C4, C3, CH50 #### [facility] , Squamous Epithelial Cell,Urine None Seen Normal 0-2 [facility] Comment on above: Order Comment: Name Collection Type:: Clean-Voided Midstream Performed By: #### C MP, ESR, ADDONUAPLUS, CBC #### [address] #### C4, C3, CH50 #### [facility] , Urobilinogen,Urine Normal Normal Normal [facility] Comment on above: Order Comment: Name Collection Type:: Clean-Voided Midstream Performed By: #### C MP, ESR, ADDONUAPLUS, CBC #### [address] #### C4, C3, CH50 #### [facility] , WBC LM.HPF (Urine sed) [#/Area] 0 /[HPF] Normal 0-4 [facility] Comment on above: Order Comment: Name Collection Type:: Clean-Voided Midstream Performed By: #### C MP, ESR, ADDONUAPLUS, CBC #### [address] #### C4, C3, CH50 #### [facility] , Erythrocyte Sedimentation Ra roman 06-25-2023 ESR (Bld) [Velocity] 14 mm/h Normal 0-29 [facility] Comment on above: Result Comment: PERF ORMED BY: [facility] [address] [place] [id number] PATHOLOGIST CREATIVE/ART DIRECTOR SUSAN ZHENG M.D. Performed By: #### C MP, ESR, ADDONUAPLUS, CBC #### [facility] [address] [place] [address] [place] #### C4, C3, CH50 #### [facility] [...] for d (more content not included)... Normal [facility] Alanine aminotransferase [En zymatic activity/volume] in Serum or PlasmaOrdered By: Contreras Mcmillan on 03-19-2023 ALT [Catalytic activity/Vol] 20 U/L Normal 7-52 [facility] Comment on above: Performed By: #### C MP, ESR, ADDONUAPLUS, CBC #### [facility] [address] [place] [address] [place] #### C4, C3, CH50 #### [facility] , Albumin [Mass/volume] in Ser um or Plasma by Bromocresol green (BCG) dye binding methoOrdered By: Contreras Mcmillan on 03-19-2023 Albumin BCG dye [Mass/Vol] 4.1 g/dL 3.5-5.7 [facility] Alkaline phosphatase [Enzyma tic activity/volume] in Serum or PlasmaOrdered By: Contreras Mcmillan on 03-19-2023 ALP [Catalytic activity/Vol] 88 U/L Normal 34-104 [facility] Comment on above: Result Comment: PERF ORMED BY: [place] [address] PATHOLOGIST CREATIVE/ART DIRECTOR SUSAN ZHENG M.D. Performed By: #### C MP, ESR, ADDONUAPLUS, CBC #### [place] [address] [place] #### C4, C3, CH50 #### [facility] , Aspartate aminotransferase [ Enzymatic activity/volume] in Serum or PlasmaOrdered By: Contreras Mcmillan on 03-19-2023 AST [Catalytic activity/Vol] 16 U/L Normal 13-39 [facility] Comment on above: Performed By: #### C MP, ESR, ADDONUAPLUS, CBC #### [place] [address] [place] #### C4, C3, CH50 #### [facility] , Automated basophil %Ordered By: Contreras Mcmillan on 03-19-2023 Basophils/100 WBC (Bld) 0.6 % Normal . [facility] Comment on above: Performed By: #### C MP, ESR, ADDONUAPLUS, CBC #### [place] [address] [place] #### C4, C3, CH50 #### [facility] , Automated basophil countOrde red By: Contreras Mcmillan on 03-19-2023 Basophils (Bld) [#/Vol] 0.0 10*3/uL Normal 0.0-0.2 [facility] Comment on above: Performed By: #### C MP, ESR, ADDONUAPLUS, CBC #### [place] [address] [place] #### C4, C3, CH50 #### [facility] , Automated blood monocyte cou ntOrdered By: Contreras Crainrow on 03-19-2023 Monocytes (Bld) [#/Vol] 0.8 10*3/uL Normal 0.0-0.8 [facility] Comment on above: Performed By: #### C MP, ESR, ADDONUAPLUS, CBC #### [place] [address] [place] #### C4, C3, CH50 #### [facility] , Automated eosinophil %Ordere d By: Contreras Crainrow on 03-19-2023 Eosinophils/100 WBC (Bld) 1.5 % Normal . [facility] Comment on above: Performed By: #### C MP, ESR, ADDONUAPLUS, CBC #### [place] [address] [place] #### C4, C3, CH50 #### [facility] , Automated eosinophil countOr dered By: Contreras Mcmillan on 03-19-2023 Eosinophils (Bld) [#/Vol] 0.1 10*3/uL Normal 0.0-0.45 [facility] Comment on above: Performed By: #### C MP, ESR, ADDONUAPLUS, CBC #### [address] #### C4, C3, CH50 #### [facility] , Automated epithelial cells c ount in urine sediment (number/area)Ordered By: Contreras Crainrow on 03-19-2023 Epithelial cells Auto (Urine sed) [#/Area] 1-2 [HPF] 0-2 [facility] Automated erythrocytes count in urine sediment (number/area)Ordered By: Contreras Crainrow on 03-19-2023 RBC Auto (Urine sed) [#/Area] 0-1 [HPF] 0-4 [facility] Automated leukocytes count i n urine sediment (number/area)Ordered By: Contreras Crainrow on 03-19-2023 WBC Auto (Urine sed) [#/Area] 1-2 [HPF] 0-4 [facility] Automated monocyte %Ordered By: Contreras Crainrow on 03-19-2023 Monocytes/100 WBC (Bld) 10.1 % Normal . [facility] Comment on above: Performed By: #### C MP, ESR, ADDONUAPLUS, CBC #### [place] [address] [place] #### C4, C3, CH50 #### [facility] , Automated neutrophil %Ordere d By: Contreras Crainrow on 03-19-2023 Neutrophils/100 WBC (Bld) 64.1 % Normal . [facility] Comment on above: Performed By: #### C MP, ESR, ADDONUAPLUS, CBC #### [place] [address] [place] #### C4, C3, CH50 #### [facility] , Automated urine color determ inationOrdered By: Contreras Mcmillan on 03-19-2023 Color (U) Yellow Normal Yellow [facility] Comment on above: Order Comment: Name Collection Type:: Clean-Voided Midstream Performed By: #### C MP, ESR, ADDONUAPLUS, CBC #### [address] #### C4, C3, CH50 #### [facility] , Automated urine hyaline cast s count (number/volume)Ordered By: Contreras Crainrow on 03-19-2023 Hyaline casts Auto (U) [#/Vol] None seen [LPF] 0-1 [facility] Bilirubin Test strip Ql (U)O rdered By: Contreras Crainrow on 03-19-2023 Bilirubin Ql (U) Negative Negative [facility] Bilirubin.total [Mass/volume ] in Serum or PlasmaOrdered By: Contreras Mcmillan on 03-19-2023 Bilirubin [Mass/Vol] 0.3 mg/dL Normal 0.3-1.0 [facility] Comment on above: Performed By: #### C MP, ESR, ADDONUAPLUS, CBC #### [place] [address] [place] #### C4, C3, CH50 #### [facility] , Calcium [Mass/volume] in Ser um or PlasmaOrdered By: Contreras Mcmillan on 03-19-2023 Calcium [Mass/Vol] 9.1 mg/dL Normal 8.6-10.3 [facility] Comment on above: Performed By: #### C MP, ESR, ADDONUAPLUS, CBC #### [place] [address] [place] #### C4, C3, CH50 #### [facility] , Carbon dioxide, total [Moles /volume] in Serum or PlasmaOrdered By: Contreras Crainrow on 03-19-2023 CO2 [Moles/Vol] 28.5 mmol/L Normal 21.0-31.0 [facility] Comment on above: Performed By: #### C MP, ESR, ADDONUAPLUS, CBC #### [place] [address] [place] #### C4, C3, CH50 #### [facility] , Chloride [Moles/volume] in S josé miguel or PlasmaOrdered By: Contreras Mcmillan on 03-19-2023 Chloride [Moles/Vol] 104 mmol/L Normal 98-107 [facility] Comment on above: Performed By: #### C MP, ESR, ADDONUAPLUS, CBC #### [address] #### C4, C3, CH50 #### [facility] , Complement C3on 03-19-2023 Complement C3 161 mg/dL Normal 82-167 [facility] Comment on above: Result Comment: Perf ormed at: - [facility] [place] [id number] Fire And Safety Helper: Thony Mcmillan PhD, Phone: [phone] Performed By: #### C MP, ESR, ADDONUAPLUS, CBC #### [address] #### C4, C3, CH50 #### [facility] , Complement C4on 03-19-2023 Complement C4 40 mg/dL High 12-38 [facility] Comment on above: Result Comment: PERF ORMED BY: [place] [address] PATHOLOGIST CREATIVE/ART DIRECTOR SUSAN ZHENG M.D. Performed By: #### C MP, ESR, ADDONUAPLUS, CBC #### [place] [address] [place] #### C4, C3, CH50 #### [facility] , Complement Total (CH50)on Complement Total (CH50) >60 Normal >41 [facility] Comment on above: Result Comment: Age Male [...] of range values. Performed at: - [facility] [address] [id number] Fire And Safety Helper: Thony Mcmillan PhD, Phone: [phone] PERFORMED BY: [place] [address] PATHOLOGIST CREATIVE/ART DIRECTOR SUSAN ZHENG M.D. Performed By: #### C MP, ESR, ADDONUAPLUS, CBC #### [address] #### C4, C3, CH50 #### [facility] , Complete Blood Count Auto Di ffon 03-19-2023 Mean Corpuscular HGB Conc 32.8 g/dL Normal 32.0-35.0 [facility] Comment on above: Performed By: #### C MP, ESR, ADDONUAPLUS, CBC #### [address] #### C4, C3, CH50 #### [facility] , NRBC% 0.1 /100{WBC} Normal 0-0.5 [facility] Comment on above: Performed By: #### C MP, ESR, ADDONUAPLUS, CBC #### [place] [address] [place] #### C4, C3, CH50 #### [facility] , Comprehensive Metabolic Pane ifrah 03-19-2023 Albumin [Mass/Vol] 4.1 g/dL Normal 3.5-5.7 [facility] Comment on above: Performed By: #### C MP, ESR, ADDONUAPLUS, CBC #### [place] [address] [place] #### C4, C3, CH50 #### [facility] , GFR/1.73 sq M.predicted MDRD (S/P/Bld) [Vol rate/Area] mL/min/{1.73_m2} Normal [facility] Comment on above: Performed By: #### C MP, ESR, ADDONUAPLUS, CBC #### [place] [address] [place] #### C4, C3, CH50 #### [facility] , Creatinine [Mass/volume] in Serum or PlasmaOrdered By: Contreras Mcmillan on 03-19-2023 Creatinine [Mass/Vol] 1.02 mg/dL Normal 0.60-1.20 [facility] Comment on above: Performed By: #### C MP, ESR, ADDONUAPLUS, CBC #### [place] [address] [place] #### C4, C3, CH50 #### [facility] , Dipstick and Microscopicon 0 03-19-2023 Appearance (U) Clear Normal Clear [facility] Comment on above: Order Comment: Name Collection Type:: Clean-Voided Midstream Performed By: #### C MP, ESR, ADDONUAPLUS, CBC #### [place] [address] [place] #### C4, C3, CH50 #### [facility] , Bacteria,Urine None Seen Normal None Seen [facility] Comment on above: Order Comment: Name Collection Type:: Clean-Voided Midstream Performed By: #### C MP, ESR, ADDONUAPLUS, CBC #### [place] [address] [place] #### C4, C3, CH50 #### [facility] , Bilirubin,Urine Negative Normal Negative [facility] Comment on above: Order Comment: Name Collection Type:: Clean-Voided Midstream Performed By: #### C MP, ESR, ADDONUAPLUS, CBC #### [address] #### C4, C3, CH50 #### [facility] , Glucose Ql (U) Normal Normal Normal [facility] Comment on above: Order Comment: Name Collection Type:: Clean-Voided Midstream Performed By: #### C MP, ESR, ADDONUAPLUS, CBC #### [address] #### C4, C3, CH50 #### [facility] , Hyaline Casts,Urine None Seen Normal 0-1 [facility] Comment on above: Order Comment: Name Collection Type:: Clean-Voided Midstream Result Comment: PERF ORMED BY: [place] [address] PATHOLOGIST CREATIVE/ART DIRECTOR SUSAN ZHENG M.D. Performed By: #### C MP, ESR, ADDONUAPLUS, CBC #### [address] #### C4, C3, CH50 #### [facility] , Ketones Ql (U) Negative Normal Negative [facility] Comment on above: Order Comment: Name Collection Type:: Clean-Voided Midstream Performed By: #### C MP, ESR, ADDONUAPLUS, CBC #### [address] #### C4, C3, CH50 #### [facility] , Leukocyte esterase Test strip Ql (U) Negative Normal Negative [facility] Comment on above: Order Comment: Name Collection Type:: Clean-Voided Midstream Performed By: #### C MP, ESR, ADDONUAPLUS, CBC #### [facility] [address] [place] [address] [place] #### C4, C3, CH50 #### [facility] , Nitrite,Urine Negative Normal Negative [facility] Comment on above: Order Comment: Name Collection Type:: Clean-Voided Midstream Performed By: #### C MP, ESR, ADDONUAPLUS, CBC #### [address] #### C4, C3, CH50 #### [facility] , Occult Blood,Urine Negative Normal Negative [facility] Comment on above: Order Comment: Name Collection Type:: Clean-Voided Midstream Performed By: #### C MP, ESR, ADDONUAPLUS, CBC #### [address] #### C4, C3, CH50 #### [facility] , Protein,Urine Negative Normal Negative [facility] Comment on above: Order Comment: Name Collection Type:: Clean-Voided Midstream Performed By: #### C MP, ESR, ADDONUAPLUS, CBC #### [address] #### C4, C3, CH50 #### [facility] , RBC LM.HPF (Urine sed) [#/Area] 0 /[HPF] Normal 0-4 [facility] Comment on above: Order Comment: Name Collection Type:: Clean-Voided Midstream Performed By: #### C MP, ESR, ADDONUAPLUS, CBC #### [place] [address] [place] #### C4, C3, CH50 #### [facility] , Specificy [place],Urine 1.006 Normal 1.001-1.030 [facility] Comment on above: Order Comment: Name Collection Type:: Clean-Voided Midstream Performed By: #### C MP, ESR, ADDONUAPLUS, CBC #### [place] [address] [place] #### C4, C3, CH50 #### [facility] , Squamous Epithelial Cell,Urine 1-2 Normal 0-2 [facility] Comment on above: Order Comment: Name Collection Type:: Clean-Voided Midstream Performed By: #### C MP, ESR, ADDONUAPLUS, CBC #### [address] #### C4, C3, CH50 #### [facility] , Urobilinogen,Urine Normal Normal Normal [facility] Comment on above: Order Comment: Name Collection Type:: Clean-Voided Midstream Performed By: #### C MP, ESR, ADDONUAPLUS, CBC #### [address] #### C4, C3, CH50 #### [facility] , WBC,Urine 1-2 Normal 0-4 [facility] Comment on above: Order Comment: Name Collection Type:: Clean-Voided Midstream Performed By: #### C MP, ESR, ADDONUAPLUS, CBC #### [address] #### C4, C3, CH50 #### [facility] , Erythrocyte Sedimentation Ra roman 03-19-2023 ESR (Bld) [Velocity] 21 mm/h Normal 0-29 [facility] Comment on above: Result Comment: PERF ORMED BY: [place] [address] PATHOLOGIST CREATIVE/ART DIRECTOR SUSAN ZHENG M.D. Performed By: #### C MP, ESR, ADDONUAPLUS, CBC #### [address] #### C4, C3, CH50 #### [facility] , Erythrocyte distribution wid th [Ratio] by Automated countOrdered By: Contreras Mcmillan on 03-19-2023 Erythrocyte distribution width (RBC) [Ratio] 14.8 % Normal 11.9-15.3 [facility] Comment on above: Performed By: #### C MP, ESR, ADDONUAPLUS, CBC #### [place] [address] [place] #### C4, C3, CH50 #### [facility] , Erythrocyte sedimentation ra te by Photometric methodOrdered By: Contreras Mcmillan on 03-19-2023 ESR Photometric method (Bld) [Velocity] 21 mm/hr 0-29 [facility] Erythrocytes [#/volume] in B lood by Automated countOrdered By: Contreras Mcmillan on 03-19-2023 RBC (Bld) [#/Vol] 4.33 10*6/uL Normal 3.60-5.00 [facility] Comment on above: Performed By: #### C MP, ESR, ADDONUAPLUS, CBC #### [address] #### C4, C3, CH50 #### [facility] , Glucose [Mass/volume] in Ser um or PlasmaOrdered By: Contreras Mcmillan on 03-19-2023 Glucose [Mass/Vol] 100 mg/dL Normal 70-100 [facility] Comment on above: ADA recommended refe rence rangeRandom Glucose Reference Range is dependent on time and content of last meal. Glucose of more than 200 mg/dL in a nonstressed, ambulatory subject supports the diagnosis of Diabetes Mellitus. Result Comment: [place] om Glucose Reference Range is dependent on time and content of last meal. Glucose of more than 200 mg/dL in a nonstressed, ambulatory subject supports the diagnosis of Diabetes Mellitus. ADA recommended reference range Performed By: #### C MP, ESR, ADDONUAPLUS, CBC #### [place] [address] [place] #### C4, C3, CH50 #### [facility] , Hematocrit [Volume Fraction] of Blood by Automated countOrdered By: Contreras Mcmillan on 03-19-2023 Hematocrit (Bld) [Volume fraction] 39.2 % Normal 34.0-46.4 [facility] Comment on above: Performed By: #### C MP, ESR, ADDONUAPLUS, CBC #### [facility] [address] [place] [address] [place] #### C4, C3, CH50 #### [facility] , Hemoglobin [Mass/volume] in BloodOrdered By: Contreras Crainrow on 03-19-2023 Hemoglobin (Bld) [Mass/Vol] 12.9 g/dL Normal 11.8-15.4 [facility] Comment on above: Performed By: #### C MP, ESR, ADDONUAPLUS, CBC #### [place] [address] [place] #### C4, C3, CH50 #### [facility] , Ketones Auto test strip (U) [Mass/Vol]Ordered By: Contreras Mcmillan on 03-19-2023 Ketones (U) [Mass/Vol] Negative Negative [facility] Leukocytes [#/volume] correc jw for nucleated erythrocytes in Blood by Automated counOrdered By: Contreras Deyanira on 03-19-2023 WBC corrected for nucl RBC Auto (Bld) [#/Vol] 7.7 10*3/uL 3.8-11.6 [facility] Leukocytes [#/volume] in Blo od by Automated countOrdered By: Contreras Deyanira on 03-19-2023 WBC (Bld) [#/Vol] 7.7 10*3/uL Normal 3.8-11.6 [facility] Comment on above: Performed By: #### C MP, ESR, ADDONUAPLUS, CBC #### [place] [address] [place] #### C4, C3, CH50 #### [facility] , Lymphocytes [#/volume] in Bl ood by Automated countOrdered By: Contrerasamerico Mcmillan on 03-19-2023 Lymphocytes (Bld) [#/Vol] 1.8 10*3/uL Normal 1.00-4.8 [facility] Comment on above: Performed By: #### C MP, ESR, ADDONUAPLUS, CBC #### [place] [address] [place] #### C4, C3, CH50 #### [facility] , Lymphocytes/100 leukocytes i n Blood by Automated countOrdered By: Contrerasamerico Mcmillan on 03-19-2023 Lymphocytes/100 WBC (Bld) 23.7 % Normal . [facility] Comment on above: Performed By: #### C MP, ESR, ADDONUAPLUS, CBC #### [place] [address] [place] #### C4, C3, CH50 #### [facility] , MCH [Entitic mass] by Automa jw countOrdered By: Contreras Mcmillan on 03-19-2023 MCH (RBC) [Entitic mass] 29.7 pg Normal 24.7-34.3 [facility] Comment on above: Performed By: #### C MP, ESR, ADDONUAPLUS, CBC #### [place] [address] [place] #### C4, C3, CH50 #### [facility] , MCHC Auto (RBC) [Mass/Vol]Or dered By: Contreras Mcmillan on 03-19-2023 MCHC (RBC) [Mass/Vol] 32.8 g/dL 32.0-35.0 [facility] MCV [Entitic volume] by Auto mated countOrdered By: Contreras Mcmillan on 03-19-2023 MCV (RBC) [Entitic vol] 90.5 fL Normal 80-100 [facility] Comment on above: Performed By: #### C MP, ESR, ADDONUAPLUS, CBC #### [place] [address] [place] #### C4, C3, CH50 #### [facility] , Neutrophils [#/volume] in Bl ood by Automated countOrdered By: Contreras Mcmillan on 03-19-2023 Neutrophils (Bld) [#/Vol] 4.9 10*3/uL Normal 1.8-7.7 [facility] Comment on above: Performed By: #### C MP, ESR, ADDONUAPLUS, CBC #### [address] #### C4, C3, CH50 #### [facility] , Nitrite Test strip Ql (U)Ord ered By: Contreras Crainrow on 03-19-2023 Nitrite Ql (U) Negative Negative [facility] No Panel InformationOrdered By: Contrerasamerico Mcmillan on 03-19-2023 Estimated GFR (CKD-EPI) > 60.0 mL/Min [facility] Creatinine Clearance (Chem N/A [facility] Nucleated erythrocytes [Pres ence] in Blood by Automated countOrdered By: Contreras Deyanira on 03-19-2023 Nucleated RBC Auto Ql (Bld) 0.1 /100{WBC} 0-0.5 [facility] Platelet mean volume [Entiti c volume] in Blood by Automated countOrdered By: Contreras Deyanira on 03-19-2023 Platelet mean volume (Bld) [Entitic vol] 8.5 fL Normal 6.3-10.7 [facility] Comment on above: Performed By: #### C MP, ESR, ADDONUAPLUS, CBC #### [address] #### C4, C3, CH50 #### [facility] , Platelets [#/volume] in Bloo d by Automated countOrdered By: Contrerasamerico Mcmillan on 03-19-2023 Platelets (Bld) [#/Vol] 251 10*3/uL Normal 150-450 [facility] Comment on above: Performed By: #### C MP, ESR, ADDONUAPLUS, CBC #### [place] [address] [place] #### C4, C3, CH50 #### [facility] , Potassium [Moles/volume] in Serum or PlasmaOrdered By: Contreras Mcmillan on 03-19-2023 Potassium [Moles/Vol] 4.0 mmol/L Normal 3.5-5.1 [facility] Comment on above: Performed By: #### C MP, ESR, ADDONUAPLUS, CBC #### [facility] [address] [place] [address] [place] #### C4, C3, CH50 #### [facility] , Protein Auto test strip (U) [Mass/Vol]Ordered By: Contreras Mcmillan on 03-19-2023 Protein (U) [Mass/Vol] Negative Negative [facility] Protein [Mass/volume] in Ser um or PlasmaOrdered By: Contreras Mcmillan on 03-19-2023 Protein [Mass/Vol] 6.6 g/dL Normal 6.4-8.9 [facility] Comment on above: Performed By: #### C MP, ESR, ADDONUAPLUS, CBC #### [place] [address] [place] #### C4, C3, CH50 #### [facility] , Serum globulin measurement b y calculation (mass/volume)Ordered By: Contreras Mcmillan on 03-19-2023 Globulin (S) [Mass/Vol] 2.5 g/dL Normal [facility] Comment on above: Performed By: #### C MP, ESR, ADDONUAPLUS, CBC #### [place] [address] [place] #### C4, C3, CH50 #### [facility] , Serum or plasma albumin/glob ulin mass ratioOrdered By: Contreras Mcmillan on 03-19-2023 Albumin/Globulin [Mass ratio] 1.6 {ratio} Normal [facility] Comment on above: Performed By: #### C MP, ESR, ADDONUAPLUS, CBC #### [place] [address] [place] #### C4, C3, CH50 #### [facility] , Serum or plasma anion gap de terminationOrdered By: Contreras Mcmillan on 03-19-2023 Anion gap [Moles/Vol] 10.5 mmol/L Normal 6.0-15.0 [facility] Comment on above: Performed By: #### C MP, ESR, ADDONUAPLUS, CBC #### [place] [address] [place] #### C4, C3, CH50 #### [facility] , Sodium [Moles/volume] in Ser um or PlasmaOrdered By: Contreras Mcmillan on 03-19-2023 Sodium [Moles/Vol] 139 mmol/L Normal 136-145 [facility] Comment on above: Performed By: #### C MP, ESR, ADDONUAPLUS, CBC #### [place] [address] [place] #### C4, C3, CH50 #### [facility] , Specific gravity Auto test s trip (U) [Rel density]Ordered By: Contreras Mcmillan on 03-19-2023 Specific gravity (U) [Rel density] 1.006 1.001-1.030 [facility] Urea nitrogen [Mass/volume] in Serum or PlasmaOrdered By: Contreras Mcmillan on 03-19-2023 Urea nitrogen [Mass/Vol] 16 mg/dL Normal 7-25 [facility] Comment on above: Performed By: #### C MP, ESR, ADDONUAPLUS, CBC #### [place] [address] [place] #### C4, C3, CH50 #### [facility] , Urine bacteria detection by automated methodOrdered By: Contreras Mcmillan on 03-19-2023 Bacteria Auto Ql (U) None seen None Seen [facility] Urine clarity by refractomet ry automatedOrdered By: Contreras Mcmillan on 03-19-2023 Clarity Refractometry automated (U) Clear Clear [facility] Urine glucose measurement by automated test strip (mass/volume)Ordered By: Contreras Mcmillan on 03-19-2023 Glucose Auto test strip (U) [Mass/Vol] Normal mg/dL Normal [facility] Urine hemoglobin detection b y automated test stripOrdered By: Contreras Mcmillan on 03-19-2023 Hemoglobin Auto test strip Ql (U) Negative Negative [facility] Urine leukocyte esterase det ection by automated test stripOrdered By: Contreras Mcmillan on 03-19-2023 Leukocyte esterase Auto test strip Ql (U) Negative Negative [facility] Urine pH measurement by auto mated test stripOrdered By: Contreras Mcmillan on 03-19-2023 pH (U) 6.0 [pH] Normal 5.0-9.0 [facility] Comment on above: Order Comment: Name Collection Type:: Clean-Voided Midstream Performed By: #### C MP, ESR, ADDONUAPLUS, CBC #### [facility] [address] [place] [address] #### C4, C3, CH50 #### [facility] , Urobilinogen Auto test strip (U) [Mass/Vol]Ordered By: Contreras Mcmillan on 03-19-2023 Urobilinogen (U) [Mass/Vol] Normal mg/dL Normal [facility] XR KUB 1 VIEWon 08-07-2022 XR KUB [...] by: YESENIA BLACK Date: 2022-08-07 10:[address] [facility] PAP ACOG PANEL 2: 30 to 65on 06-23-2022 . . Normal [facility] Comment on above: Result Comment: Perf ormed at: WB Performed By: #### [id number] #### [facility] [address] [address] [address] Barry Sanchez Age Gdln ACOG Testing 30-[address] [facility] Comment on above: Performed By: #### [id number] #### [facility] [address] [place] [address] Dr. Barry Sanchez DIAGNOSIS: Comment Normal [facility] Comment on above: Result Comment: NEGA TIVE FOR INTRAEPITHELIAL LESION OR MALIGNANCY. CELLULAR CHANGES ASSOCIATED WITH ATROPHY ARE PRESENT. Performed at: WB Performed By: #### [id number] #### [facility] [address] [place] [address] Dr. Barry Sanchez HPV Aptima Negative Normal Negative [facility] Comment on above: Result Comment: This nucleic acid amplification test detects fourteen high-risk HPV types (16,18,31,33,35,39,45,51,52,56,58,59,66,68) without differentiation. Performed at: =G Performed By: #### [id number] #### [facility] [address] [place] [address] Dr. Barry Sanchez Methodology: Comment Normal [facility] Comment on above: Result Comment: This liquid based ThinPrep(R) pap test was screened with the use of an image guided system. Performed at: WB Performed By: #### [id number] #### [facility] [address] [place] [address] Dr. Barry Sanchez Note: Comment Normal [facility] Comment on above: Result Comment: The Pap smear is a screening test designed to aid in the detection of premalignant and malignant conditions of the uterine cervix. It is not a diagnostic procedure and should not be used as the sole means of detecting cervical cancer. Both false-positive and false-negative reports do occur. . Performed at: WB Performed By: #### [id number] #### [facility] [address] [place] [address] Dr. Barry Sanchez Performed by: Comment Normal [facility] Comment on above: Result Comment: Amada Rabago, Emergency Doctor (ASCP) Performed at: WB Performed By: #### [id number] #### [facility] [address] [place] [address] Dr. Barry Sanchez Specimen adequacy: Comment Normal [facility] Comment on above: Result Comment: Sati sfactory for evaluation. Endocervical and/or squamous metaplastic cells (endocervical component) are present. Performed at: WB Performed By: #### [id number] #### [facility] [address] [address] [address] Barry Sanchez MG MAMM SCREEN 3D PRIMO CADon 06-05-2022 MG MAMM SCREEN 3D PRIMO CAD Patient: NOEMI BRAND Exam Date: 06/05/2022 : 1960 Gender:F Ordering : DR KOBI LATHAM . Admission #: [id number] Family : DR ALEXANDER CHEN Order #: [id number] CLICK HERE TO VIEW EXAM RADIOLOGY REPORT [...] thyroid cancer at age 53. LOCATION: [facility] BREAST COMPOSITION: Scattered areas fibroglandular density. FINDINGS: [...] MD on 06/05/2022 at 10:39 Normal [facility] TSH+FREE T4on 02-11-2022 Free T4 [Mass/Vol] 1.4 ng/dL Normal 0.8-1.8 [facility] Comment on above: Performed By: #### [id number] #### [facility] [address], [address] [place] [id number] [employer]eping Press Tender: José Miguel Mata MD TSH Qn 1.36 m[IU]/L Normal 0.40-4.50 [facility] Comment on above: Performed By: #### 5 [id number] #### [facility] [address], [address] [place] [address] [employer]eping [employer] Tender: José Miguel Mata MD Lipid Profileon 12-11-2021 Cholesterol [Mass/Vol] 158 mg/dL Normal <200 [facility] Comment on above: Result Comment: Cholesterol Guidelines: <200 Desirable 200-240 Borderline >240 Undesirable Performed By: #### L IPR #### [facility] [address] [place] [id number] Fire And Safety Helper: Jose Parikh MD Cholesterol in HDL [Mass/Vol] 46 mg/dL Normal >40 [facility] Comment on above: Result Comment: HDL Guidelines: <40 Undesirable 40-59 Borderline >59 Desirable Performed By: #### L IPR #### [address] [id number] [employer] And Safety Helper: Jose Parikh MD Cholesterol in LDL [Mass/Vol] 74 mg/dL Normal 0-130 [facility] Comment on above: Result Comment: LDL Guidelines: <100 Desirable 100-129 Near to/above Desirable 130-159 Borderline >159 Undesirable Direct (measured) LDL and calculated LDL are not interchangeable tests. Performed By: #### L IPR #### [facility] [address] [place] [id number] [employer] Safety Helper: Jose Parikh MD Cholesterol.total/Wen sterol in HDL [Mass ratio] 3.4 {ratio} Normal <5 [facility] Comment on above: Performed By: #### L IPR #### [facility] [address] [place] [address] [employer] Safety Helper: Jose Parikh MD Triglyceride [Mass/Vol] 191 mg/dL High <150 [facility] Comment on above: Result Comment: Triglyceride Guidelines: <150 Desirable 150-199 Borderline 200-499 High >499 Very high Based on AHA Guidelines for fasting triglyceride, June 2012. Performed By: #### L IPR #### [facility] [address] [place] [address] [employer] And Safety Helper: Jose Parikh MD XR FLUOROSCOPY GREATER THAN ONE HOURon 08-30-2018 XR FLUOROSCOPY GREATER THAN ONE HOUR This is an auto finalized result. Please refer to patient chart for further information. information. information. Normal [facility] Comment on above: Order Comment: Reaso n [...] full details please see the dictated operative report.RPS/gesWorkst ation ID: [id number] by: DREA BEAR on WedAug 30, 2018 11:11:02 AM ESTTranscribed by: MARTY JONES on WedAug 30, 2018 11:11:37 AM ESTFinalized by: DREA BEAR on WedAug 30, 2018 4:41:51 PM EST Normal [facility] Comment on above: Order Comment: Reaso n [...] throughout the study, limiting assessment of that level.[facility]/Industrias Lebariotat ion ID: [id number] by: SANTOS PANTOJA on WedAug 17, 2018 8:54:40 AM ESTTranscribed by: JILLIAN BETTENCOURT on WedAug 17, 2018 9:00:00 AM ESTFinalized by: SANTOS PANTOJA on WedAug 17, 2018 12:24:05 PM EST Normal [facility] Comment on above: Order Comment: Reaso n for exam?:patInjury/Trauma or Illness?:Illness/OtherHow long have you had these symptoms (acute/chronic)?:AcuteHistory of cancer?:noSurgeries, chemotherapy, or radiation?:neck sxType of Exam?:InitialAdditional signs and symptoms?:hip Sx schedule, no complaints to neck Basic Metabolic Panelon Anion gap 14 mmol/L Invalid Interpretation Code 10 - 20 mmol/L [facility] Bicarbonate (HCO3) 31 mmol/L Invalid Interpretation Code 21 - 32 mmol/L [facility] BUN/Creatinine Ratio 18.6 mg/mg Invalid Interpretation Code 10.0 - 20.0 [facility] Calcium 9.3 mg/dL Invalid Interpretation Code 8.4 - 10.2 mg/dL [facility] Chloride 97 mmol/L Low 98 - 108 mmol/L [facility] Creatinine 1.29 mg/dL High 0.4 - 1.1 mg/dL [facility] eGFR (non-black) 46 mL/min/{1.73_m2} Low >=60 [facility] eGFR (non-black) The eGFR should be used for monitoring renal function only and not for medication dosing. Invalid Interpretation Code [facility] Glucose 113 mg/dL High 65 - 99 mg/dL [facility] Potassium 5.3 mmol/L High 3.5 - 5.1 mmol/L [facility] Sodium 137 mmol/L Invalid Interpretation Code 135 - 145 mmol/L [facility] Urea nitrogen 24 mg/dL Invalid Interpretation Code 8 - 25 mg/dL [facility] CBCon 11-11-2017 Erythrocytes (RBC) 0.00 K/mcL Invalid Interpretation Code 0.00 - 0.00 [facility] Erythrocytes (RBC) 3.86 M/mcL Low 4.00 - 5.20 DM L AB Hematocrit (HCT) 31.5 % Low 36 - 46 % [facility] Hemoglobin (HGB) 9.4 g/dL Low 12 - 16 g/dL [facility] B Interpretation and review of laboratory results Abnormal Invalid Interpretation Code [facility] MCH 24.4 pg Low 26 - [address] [facility] MCHC 29.8 g/dL Low 31 - 37 g/dL [facility] MCV 81.6 fL Invalid Interpretation Code 80 - [address] [facility] Nucleated erythrocytes/100 erythrocytes 0.0 % Invalid Interpretation Code [facility] Platelet mean volume (PMV) 11.0 fL Invalid Interpretation Code 9 - 15.[address] [facility] Platelets 198 K/mcL Invalid Interpretation Code 150 - 400 [facility] RDW-CA 22.7 % High 11.6 - 14.8 % [facility] WBC (Leukocytes) 9.87 K/mcL Invalid Interpretation Code 4.50 - 11.00 [facility] PT/INRon 11-11-2017 Coagulation factor induced.INR assay in platelet poor plasma 1.2 {INR} High 0.8 - 1.1 [facility] Coagulation tissue factor induced in platelet poor plasma 15.3 s High 11.8 - 14.3 [facility] INR in blood by coagulation During the induction phase of oral anticoagulation, the INR may not reflect the anticoagulation status of the patient. Therapeutic ranges for INR's are: Most clinical situations: INR 2.0-3.0 Mechanical Prosthetic Valve: INR 2.5-3.5 Critical: INR >5.[address] [facility] Basic Metabolic Panelon 10-15 Anion gap 16 mmol/L Invalid Interpretation Code 10 - 20 mmol/L [facility] Bicarbonate (HCO3) 30 mmol/L Invalid Interpretation Code 21 - 32 mmol/L [facility] BUN/Creatinine Ratio 16.2 mg/mg Invalid Interpretation Code 10.0 - 20.0 [facility] Calcium 9.5 mg/dL Invalid Interpretation Code 8.4 - 10.2 mg/dL [facility] Chloride 99 mmol/L Invalid Interpretation Code 98 - 108 mmol/L [facility] Creatinine 0.74 mg/dL Invalid Interpretation Code 0.4 - 1.1 mg/dL [facility] eGFR (non-black) 91 mL/min/{1.73_m2} Invalid Interpretation Code >=60 [facility] eGFR (non-black) The eGFR should be used for monitoring renal function only and not for medication dosing. Invalid Interpretation Code [facility] Glucose 130 mg/dL High 65 - 99 mg/dL [facility] Interpretation and review of laboratory results Abnormal Invalid Interpretation Code [facility] Potassium 4.8 mmol/L Invalid Interpretation Code 3.5 - 5.1 mmol/L [facility] Sodium 140 mmol/L Invalid Interpretation Code 135 - 145 mmol/L [facility] Urea nitrogen 12 mg/dL Invalid Interpretation Code 8 - 25 mg/dL [facility] CBCon 11-10-2017 Erythrocytes (RBC) 0.00 K/mcL Invalid Interpretation Code 0.00 - 0.00 [facility] Erythrocytes (RBC) 4.35 M/mcL Invalid Interpretation Code 4.00 - 5.20 [facility] Hematocrit (HCT) 35.3 % Low 36 - 46 % [facility] Hemoglobin (HGB) 10.9 g/dL Low 12 - 16 g/dL [facility] B Interpretation and review of laboratory results Abnormal Invalid Interpretation Code [facility] MCH 25.1 pg Low 26 - [address] [facility] MCHC 30.9 g/dL Low 31 - 37 g/dL [facility] MCV 81.1 fL Invalid Interpretation Code 80 - [address] [facility] Nucleated erythrocytes/100 erythrocytes 0.0 % Invalid Interpretation Code [facility] Platelet mean volume (PMV) 11.1 fL Invalid Interpretation Code 9 - 15.[address] [facility] Platelets 251 K/mcL Invalid Interpretation Code 150 - 400 [facility] RDW-CA 22.0 % High 11.6 - 14.8 % [facility] WBC (Leukocytes) 15.05 K/mcL High 4.50 - 11.00 DM L AB PT/INRon 11-10-2017 Coagulation factor induced.INR assay in platelet poor plasma 1.1 {INR} Invalid Interpretation Code 0.8 - 1.1 [facility] Coagulation tissue factor induced in platelet poor plasma 13.8 s Invalid Interpretation Code 11.8 - 14.3 [facility] INR in blood by coagulation During the induction phase of oral anticoagulation, the INR may not reflect the anticoagulation status of the patient. Therapeutic ranges for INR's are: Most clinical situations: INR 2.0-3.0 Mechanical Prosthetic Valve: INR 2.5-3.5 Critical: INR >5.[address] [facility] Interpretation and review of laboratory results Normal Invalid Interpretation Code [facility] Fluoroscopy Greater Than 1 H ouron 11-09-2017 Fluoroscopy Greater Than 1 Hour This is an auto finalized result. Please refer to patient chart for further information. Invalid Interpretation Code [facility] PT/INRon 11-09-2017 Coagulation factor induced.INR assay in platelet poor plasma 1.1 {INR} Invalid Interpretation Code 0.8 - 1.1 [facility] Coagulation tissue factor induced in platelet poor plasma 13.7 s Invalid Interpretation Code 11.8 - 14.3 [facility] INR in blood by coagulation During the induction phase of oral anticoagulation, the INR may not reflect the anticoagulation status of the patient. Therapeutic ranges for INR's are: Most clinical situations: INR 2.0-3.0 Mechanical Prosthetic Valve: INR 2.5-3.5 Critical: INR >5.[address] [facility] Interpretation and review of laboratory results Normal Invalid Interpretation Code [facility] Type and Screenon 11-09-2017 ABO+Rh group Positive Invalid Interpretation Code [facility] Blood group antibody presence Negative Invalid Interpretation Code [facility] Specimen Expires 11/12/2017 23:59 EST Invalid Interpretation Code [facility] XR FLUOROSCOPY GREATER THAN ONE HOURon 11-09-2017 XR FLUOROSCOPY GREATER THAN ONE HOUR This is an auto finalized result. Please refer to patient chart for further information. information. information. Normal [facility] Comment on above: Order Comment: Reaso n [...] hip examination from 12/24/2016 performed at [facility].FLUOROSCOPY TIME:Fluoro Dose Ka,r mGy: Fluoro dose in Ka,r mGy: 1.040.2 minutesFINDINGS:Sing le fluoroscopic image of the left hip is submitted demonstrating postoperative changes of left hip arthroplasty. The acetabular and femoral components visualized on the single fluoroscopic image are well seated. Inferior portion of the femoral component is excluded. Alignment appears to be near anatomic.SYJ/gesWork station ID: [id number] by: KYREE GARRIDO on WedNov 09, 2017 9:33:10 AM ESTTranscribed by: MARTY JONES on WedNov 09, 2017 10:07:06 AM ESTFinalized by: KYREE GARRIDO on WedNov 09, 2017 4:03:19 PM EST Normal [facility] Comment on above: Order Comment: Reaso n for exam?:hip painInjury/Trauma or Illness?:Illness/OtherHow long have you had these symptoms (acute/chronic)?:ChronicType of Exam?:OngoingAdditional signs and symptoms?:n/aFluoro time in minutes:.2Fluoro dose in mGy?:1.04 XR OR Hip Left 1 Viewon 10-15 XR OR Hip Left 1 View Interface, Rad In [employer] Speechq - 11/09/2017 4:06 PM EST EXAMINATION: XR OR HIP LEFT 1 VIEW HISTORY: ORDERING SYSTEM PROVIDED HISTORY: surgery, TECHNOLOGIST PROVIDED HISTORY: Reason for exam: hip pain Illness/Other Encounter Type: Ongoing Additional signs and symptoms: n/a Fluoro dose in mGy: 1.04 ORDERING SYSTEM PROVIDED DIAGNOSIS CODES: COMPARISON: Bilateral hip examination from 12/24/2016 performed at [facility]. FLUOROSCOPY TIME: Fluoro Dose Ka,r mGy: Fluoro dose in Ka,r mGy: 1.04 0.2 minutes FINDINGS: Single fluoroscopic image of the left hip is submitted demonstrating postoperative changes of left hip arthroplasty. The acetabular and femoral components visualized on the single fluoroscopic image are well seated. Inferior portion of the femoral component is excluded. Alignment appears to be near anatomic. [employer] Workstation ID: [id number] Invalid Interpretation Code [facility] XR OR Hip Left 1 View EXAMINATION: XR OR HIP LEFT 1 VIEW HISTORY: ORDERING SYSTEM PROVIDED HISTORY: surgery, TECHNOLOGIST PROVIDED HISTORY: Reason for exam: hip pain Illness/Other Encounter Type: Ongoing Additional signs and symptoms: n/a Fluoro dose in mGy: 1.04 ORDERING SYSTEM PROVIDED DIAGNOSIS CODES: COMPARISON: Bilateral hip examination from 12/24/2016 performed at [facility]. FLUOROSCOPY TIME: Fluoro Dose Ka,r mGy: Fluoro dose in Ka,r mGy: 1.04 0.2 minutes FINDINGS: Single fluoroscopic image of the left hip is submitted demonstrating postoperative changes of left hip arthroplasty. The acetabular and femoral components visualized on the single fluoroscopic image are well seated. Inferior portion of the femoral component is excluded. Alignment appears to be near anatomic. [employer] Workstation ID: [id number] Invalid Interpretation Code [facility] APTTon 10-21-2017 aPTT 30 s Invalid Interpretation Code 23 - 34 [facility] aPTT Therapeutic range for APTT's is 68 - 104 seconds Invalid Interpret[address] Code [facility] Interpretation and review of laboratory results Normal Invalid Interpretation Code [facility] Albuminon 10-21-2017 Albumin 4.5 g/dL Invalid Interpretation Code 3.2 - 5.2 g/dL [facility] PT/INRon 10-21-2017 Coagulation factor induced.INR assay in platelet poor plasma 1.3 {INR} High 0.8 - 1.1 [facility] Coagulation tissue factor induced in platelet poor plasma 15.6 s High 11.8 - 14.3 [facility] INR in blood by coagulation During the induction phase of oral anticoagulation, the INR may not reflect the anticoagulation status of the patient. Therapeutic ranges for INR's are: Most clinical situations: INR 2.0-3.0 Mechanical Prosthetic Valve: INR 2.5-3.5 Critical: INR >5.[address] [facility] Interpretation and review of laboratory results Abnormal Invalid Interpretation Code [facility] Type and Screenon 10-21-2017 ABO+Rh group Positive Invalid Interpretation Code [facility] Blood group antibody presence Negative Invalid Interpretation Code [facility] Specimen Expires 11/08/2017 23:59 EST Invalid Interpretation Code [facility] SCAN OTHER ORDERSon 09-23-19 18 SCAN OTHER ORDERS Ordered by an unspecified provider. Invalid Interpretation Code [facility] Vital Signs Date Time Vital Sign Value Performing Clinician Facility 12-09-2023 09:54-0400 Body height 170.2 cm Alexander Chen DO Work Phone: [facility] 12-09-2023 09:54-0400 Body mass index (BMI) [Ratio] 33.34 kg/m2 Alexander Chen DO Work Phone: [facility] 12-09-2023 09:54-0400 Body temperature 98.91 [degF] Alexander Chen DO Work Phone: [facility] 12-09-2023 09:54-0400 Body weight 96.57 kg Alexander Chen DO Work Phone: [facility] 12-09-2023 09:54-0400 Diastolic blood pressure 68 mm[Hg] Alexander Chen DO Work Phone: [facility] 12-09-2023 09:54-0400 Heart rate 81 /min Alexander Chen DO Work Phone: [facility] 12-09-2023 09:54-0400 Respiratory rate 20 /min Alexander Chen DO Work Phone: [facility] 12-09-2023 09:54-0400 SaO2% (BldA) [Mass fraction] 96 % Alexander Chen DO Work Phone: [facility] 12-09-2023 09:54-0400 Systolic blood pressure 126 mm[Hg] Alexander Chen DO Work Phone: [employer] [facility] 08-25-2022 12:58-0500 Blood Pressure Location DIANA GERRY [facility] 08-25-2022 12:58-0500 Diastolic blood pressure 84 mm[Hg] DIANA GERRY [facility] 08-25-2022 12:58-0500 Heart rate 77 /min DIANA GERRY [facility] 08-25-2022 12:58-0500 Respiratory rate 16 /min DIANA GERRY [facility] 08-25-2022 12:58-0500 Systolic blood pressure 140 mm[Hg] DIANA GERRY [facility] 11-11-2017 07:27-0500 Body Temperature 97.9 [degF] [facility] 11-11-2017 07:27-0500 BP Diastolic 71 mm[Hg] [facility] 11-11-2017 07:27-0500 BP Systolic 111 mm[Hg] [facility] 11-11-2017 07:27-0500 Pulse (Heart Rate) 57 /min [facility] 11-11-2017 07:27-0500 Pulse Oximetry 93 % [facility] 11-11-2017 07:27-0500 Respiratory Rate 15 /min [facility] 11-09-2017 06:26-0500 BMI (Body Mass Index) 36.32 kg/m2 [facility] 11-09-2017 06:26-0500 Height 165.1 cm [facility] 11-09-2017 06:26-0500 Weight 99 kg [facility] 10-21-2017 12:12-0500 BMI (Body Mass Index) 35.59 kg/m2 Rossana Nila [facility] Work Phone: 10-21-2017 12:12-0500 Body Temperature 99.7 [degF] Rossana Reid [facility] Work Phone: 10-21-2017 12:12-0500 BP Diastolic 93 mm[Hg] Rossana Reid [facility] Work Phone: 10-21-2017 12:12-0500 BP Systolic 160 mm[Hg] Rossana [facility] Work Phone: 10-21-2017 12:12-0500 Height 165.1 cm Rossana [facility] Work Phone: 10-21-2017 12:12-0500 Pulse (Heart Rate) 88 /min Rossana Reid [facility] Work Phone: 10-21-2017 12:12-0500 Pulse Oximetry 94 % Rossana [facility] Work Phone: 10-21-2017 12:12-0500 Weight 97 kg Rossana Reid [facility] Work Phone: Encounters Encounter Date Encounter Type Care Provider Facility Start: 06-21-2024 End: 06-21-2024 Telephone encounter [facility] Sampson [facility] Start: 06-16-2024 End: 06-16-2024 ambulatory None Provider Facility:[facility] Start: 06-15-2024 End: 06-15-2024 Telephone encounter Mauro Levin MD Work Phone: 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) Start: 06-15-2024 End: 06-15-2024 ambulatory ALEXANDER Sorto [facility] Start: 06-13-2024 End: 06-13-2024 Refill Shayy Leonard [facility] Internal Medicine - Family Medicine Comment on above: Iron deficiency anem ia due to chronic blood loss Start: 06-06-2024 ambulatory None Provider Facility: [facility] Start: 06-01-2024 End: 06-01-2024 ambulatory None Provider Facility:[facility] Start: 06-01-2024 End: 06-01-2024 ambulatory Jillian Nieves WAREHOUSE SPECIALIST[employer] Facility:[facility] Start: 05-26-2024 End: 05-26-2024 ambulatory MAURO LEVIN Not Available Start: 05-12-2024 End: 05-12-2024 ambulatory None Provider Facility:[facility] Start: 05-12-2024 End: 05-12-2024 ambulatory [facility] Start: 05-12-2024 End: 05-12-2024 ambulatory Lina Schwab MD Facility:[facility] Start: 05-11-2024 End: 05-14-2024 ambulatory [facility] Start: 05-09-2024 End: 05-09-2024 ambulatory [facility] Start: 05-04-2024 End: 05-04-2024 ambulatory Jillian Nieves Facility:[facility] Start: 05-04-2024 End: 05-04-2024 ambulatory Alexander Jose Leonoranisha DO Facility:[facility] Start: 04-14-2024 End: 04-14-2024 ambulatory None Provider Facility:[facility] Start: 04-13-2024 End: 05-14-2024 ambulatory Alexander Jose Fredonikhil DO Facility:[facility] Start: 03-23-2024 End: 03-23-2024 ambulatory Jillian Garett Rampart Facility:[facility] Start: 03-23-2024 End: 03-23-2024 ambulatory Alexander Jose Fredos DO Facility:[facility] Start: 03-17-2024 End: 03-17-2024 ambulatory [facility] Start: 02-25-2024 End: 02-25-2024 Patient encounter procedure DO Alexander Leonoranisha Work Phone: [facility] [place] Work Phone: Start: 02-25-2024 End: 02-25-2024 ambulatory DO Alexander Chen Work Phone: [facility] Work Phone: Start: 02-18-2024 End: 02-18-2024 ambulatory [facility] Noreen [facility] Start: 02-18-2024 End: 02-18-2024 ambulatory MAURO LEVIN Not Available Start: 02-11-2024 End: 02-12-2024 ambulatory ALEXANDER Noreen [facility] Start: 02-04-2024 End: 02-04-2024 ambulatory LINA SCHWAB Facility:[facility] Start: 02-04-2024 End: 02-04-2024 ambulatory ALEXANDER Noreen [facility] Start: 02-03-2024 End: 02-03-2024 ambulatory [facility] Start: 01-27-2024 End: 01-27-2024 ambulatory Jillian Nieves Facility:[facility] Start: 01-27-2024 End: 01-27-2024 ambulatory Alexander Jose anisha BATEMAN Facility:[facility] Start: 01-21-2024 End: 01-21-2024 ambulatory [facility] Noreen [facility] Start: 12-24-2023 End: 12-24-2023 ambulatory LINA SCHWAB Facility:[facility] Start: 12-23-2023 End: 12-24-2023 ambulatory Lina Schwab MD Facility:[facility] Start: 12-17-2023 End: 12-17-2023 Follow-up encounter [facility] 2 [facility] 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 Internal Medicine - Family Medicine Comment on above: Gastroesophageal ref lux disease, unspecified whether esophagitis present Start: 12-09-2023 End: 12-09-2023 Office outpatient visit 25 minutes Alexander Chen DO Work Phone: [facility] Internal Medicine - Family Medicine Comment on above: Essential hypertensi on (Primary Dx); B12 deficiency; Mild persistent asthma without complication; Iron deficiency anemia, unspecified iron deficiency anemia type Start: 12-09-2023 End: 12-09-2023 ambulatory [facility] Start: 12-02-2023 Refill Alexander Noreen Mujica O Work Phone: [facility] Internal Medicine - Family Medicine Comment on above: Essential hypertensi on Start: 11-26-2023 End: 11-26-2023 ambulatory [facility] Start: 11-26-2023 End: 11-26-2023 ambulatory MAURO LEVIN Not Available Start: 11-25-2023 Refill Alexander Noreen Mujica O Work Phone: 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) Start: 11-19-2023 End: 11-19-2023 ambulatory [facility] Start: 11-19-2023 End: 11-19-2023 ambulatory Lina Schwab MD Facility:[facility] Start: 11-15-2023 End: 11-15-2023 ambulatory None Provider Facility:[facility] Start: 11-15-2023 End: 11-15-2023 ambulatory Alexander Chen DO Facility:[facility] Start: 11-05-2023 End: 11-05-2023 Follow-up encounter [facility] Mtm 1 [facility] 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 Start: 10-06-2023 Refill Alexander Navarro Work Phone: 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) Start: 10-05-2023 End: 10-05-2023 ambulatory ALEXANDER CHEN [facility] Start: 10-04-2023 End: 10-04-2023 Patient encounter procedure DO Alexander Leonoranisha Work Phone: [facility] [place] Work Phone: Start: 10-04-2023 End: 10-04-2023 ambulatory DO Alexander Leonoranisha Work Phone: [facility] Work Phone: Start: 09-28-2023 End: 09-29-2023 ambulatory DIANA GARRETT Facility:[facility] Start: 09-28-2023 End: 09-28-2023 Patient encounter procedure DIANA GARRETT [facility] Start: 09-24-2023 End: 09-25-2023 ambulatory Leann X Orzech Facility:[facility] Start: 09-24-2023 End: 09-24-2023 Lab Drop off Leann X Orzech [facility] Start: 09-24-2023 End: 09-25-2023 ambulatory DIANA DILLARDRY Facility:[facility] Start: 09-24-2023 End: 09-24-2023 Patient encounter procedure DIANA GARRETT [facility] Start: 09-24-2023 End: 09-24-2023 ambulatory [facility] Start: 09-24-2023 End: 09-24-2023 Follow-up encounter [facility] 1 [facility] 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 Start: 09-14-2023 End: 09-14-2023 Lab Drop off DIANA DILLARDRY [facility] Start: 08-25-2023 End: 08-26-2023 ambulatory DIANA GARRETT Facility:[facility] Start: 08-19-2023 End: 09-13-2023 ambulatory Lina Schwab MD Facility:[facility] Start: 08-10-2023 End: 08-10-2023 ambulatory 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 WAREHOUSE SPECIALIST[employer] Facility:[facility] [place] Start: 07-26-2023 End: 07-26-2023 ambulatory MAURO LEVIN Not Available Start: 07-05-2023 End: 07-05-2023 ambulatory Lina Schwab MD Facility:[facility] Start: 06-25-2023 End: 06-25-2023 ambulatory Alexander Chen Facility:[facility] Start: 06-21-2023 End: 06-21-2023 ambulatory 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 WAREHOUSE SPECIALIST[employer] Facility[facility] Start: 03-19-2023 End: 03-19-2023 Patient encounter procedure DO Alexander Chen Work Phone: [facility] [place] Work Phone: Start: 03-19-2023 End: 03-19-2023 ambulatory DO Alexander Chen Work Phone: [facility] Work Phone: Start: 08-25-2022 End: 08-25-2022 Patient encounter procedure DIANA GARRETT [facility] Start: 08-07-2022 End: 08-08-[address] ТАТЬЯНА JONES JR Facility:[facility] Start: 06-16-2022 End: 06-16-[address] KOBI LATHAM Facility:[facility] Start: 06-05-2022 End: 06-06-[address] KOBI LATHAM Facility:[facility] Start: 12-10-2021 End: 12-11-2021 ambulatory GALOARTEM VILLAR [facility] Start: 12-10-2021 End: 12-10-2021 Subsequent hospital visit by physician Alexander Chen Work Phone: [facility] Start: 08-30-2018 End: 09-01-2018 Evaluation and management of inpatient LINA TRACY [facility] Start: 08-16-2018 End: 08-17-2018 Patient encounter procedure LINA ROSSANA [facility] Start: 08-16-2018 Encounter for other preprocedural examination [facility] Start: 08-16-2018 Encounter for prepro cedural cardiovascular examination [facility] Start: 08-16-2018 End: 08-16-2018 Patient encounter procedure LINA TRACY [facility] Start: 02-23-2018 End: 02-23-2018 Ambulatory ROSANGELA MILES DUMONT [facility] Start: 11-09-2017 End: 11-11-2017 Evaluation and management of inpatient LINA TRACY [facility] Start: 11-09-2017 End: 11-11-2017 Evaluation and management of inpatient Lina Elizabeth Work Phone: [facility] Start: 10-21-2017 End: 10-21-2017 Patient encounter procedure LINA TRACY [facility] Start: 10-21-2017 Patient encounter Lina Elizabeth Work Phone: [facility] Preadmission Testing Encounter for other preprocedural examination [facility] Encounter for prepro cedural cardiovascular examination [facility] Procedures Date Procedure Procedure Detail Performing Clinician Start: 06-15-2024 Prothrombin time [employer] Service Work Phone: Start: 05-09-2024 Adult depression scr eening assessment Shayy Leonard CMA Start: 12-17-2023 Prothrombin time [employer] Work Phone: Start: 12-09-2023 Adult depression scr eening assessment Alexander Chen Work Phone: Start: 11-19-2023 Prothrombin time [employer] Work Phone: Start: 11-05-2023 Prothrombin time [employer] Service Work Phone: Start: 10-05-2023 Prothrombin time [employer] Work Phone: Start: 09-24-2023 Prothrombin time [employer] Work Phone: Start: 08-13-2023 Mammography Mauro valle MD Work Phone: Start: 05-06-2023 Adult depression scr eening assessment [facility] 1 Start: 07-08-2020 Laparoscopic bilater al oophorectomy DIANA GARRETT Start: 02-06-2020 Cauterization of int ernal nose DIANA GARRETT Start: 03-10-2018 Cystourethroscopy wi th dilation of urethral stricture DIANA GARRETT Start: 11-09-2017 End: 11-09-2017 LEFT TOTAL HIP ARTHROPLASTY ANTERIOR APPROACH Lina Elizabeth Work Phone: Start: 09-13-2017 Prosthetic arthropla sty of the hip DIANA GARRETT Start: 09-13-2015 Extraction of cataract DINAA GARRETT Start: 09-13-2014 Vena cava filter (ph ysical object) DIANA GARRETT Start: 09-13-2008 Discectomy of spine JOSSELYN GARRETT Start: 09-13-1997 History of operative procedure on knee DIANA GARRETT Start: 09-13-1987 Cystoscope, device ( physical object) DIANA GARRETT Start: 09-13-1986 section CLYDE GARRETT Plan of Treatment Date Care Activity Detail Author Start: 06-03-2026 Screening for malignant neoplasm of colon [facility] Start: 05-09-2025 Adult BMI Screening [facility] Start: 05-09-2025 [facility] Start: 05-09-2025 End: 05-09-2025 Patient encounter procedure 05/09/2025 1:00 PM EDT [facility] [address] [place] [address] Alexander Chen, [address] [place] [address] [facility] Start: 12-08-2024 Adult BMI Screening Adult BMI Screen ing [facility] Start: 12-08-2024 Depression Screening Depression Scre ening [facility] Start: 12-08-2024 Tobacco Screening Tobacco Screening [facility] Start: 09-01-2024 End: 09-01-2024 Patient encounter procedure 09/01/2024 10:10 AM EST Office Visit [facility] [address] [place] [phone] Mauro Levin MD [address] [place] [address] [id number] [facility] Start: 08-29-2024 ambulatory Ambulatory Facility:[facility] Start: 08-13-2024 Screening for malignant neoplasm of breast Mammogram [facility] Start: 07-20-2024 End: 07-20-2024 Patient encounter procedure 07/20/2024 1:30 PM EST Office Visit [facility] - Family Medicine [address] [place] [address] Alexander Chen, [address] [place] [address] [facility] Start: 07-14-2024 End: 07-14-2024 Follow-up encounter 07/14/2024 9:00 AM EDT Follow Up Anticoagulation [facility] [address] [place] [address] [facility] Start: 06-27-2024 Adult BMI Screening Adult BMI Screen ing [facility] Start: 06-27-2024 Tobacco Screening Tobacco Screening [facility] Start: 06-26-2024 End: 06-26-2024 Patient encounter procedure 06/26/2024 2:00 PM EDT Office Visit [facility] [address] [place] [address] Kobi Latham, DO [address] [place] [address] [facility] Start: 06-15-2024 End: 06-15-2024 Follow-up encounter 06/15/2024 9:30 AM EDT Follow Up Anticoagulation [facility] [address] [place] [address] [facility] Start: 05-14-2024 COVID-19 Vaccine () COVID-19 Vaccine () [facility] Start: 05-14-2024 Influenza vaccination P [facility] Start: 05-09-2024 End: 05-09-2024 Patient encounter procedure 05/09/2024 11:10 AM EDT Office Visit [facility] Internal [facility] - Family Medicine [address] [place] [address] [facility] Start: 05-06-2024 Depression Screening Depression Scre [facility] Start: 02-25-2024 Hemolytic complement CH50 level [facility] Start: 12-23-2023 End: 12-23-2023 Follow-up encounter 12/23/2023 12:45 PM EDT Follow Up Anticoagulation [facility] [address] [place] [address] [facility] Start: 12-17-2023 End: 12-17-2023 Follow-up encounter 12/17/2023 9:15 AM EDT Follow Up Anticoagulation [facility] [address] [place] [address] [facility] Start: 12-09-2023 End: 12-09-2023 Patient encounter procedure 12/09/2023 10:00 AM EDT Office Visit [facility] - Family Medicine [address] [place] [address] Alexander Chen DO [address] [facility] [place] [address] [facility] Start: 11-26-2023 End: 11-26-2023 Patient encounter procedure 11/26/2023 2:15 PM EDT Appointment [facility] [address] [place] [address] [facility] Start: 11-19-2023 End: 11-19-2023 Follow-up encounter 11/19/2023 9:15 AM EST Follow Up Anticoagulation [facility] [address] [place] [address] [facility] Start: 11-05-2023 End: 11-05-2023 Follow-up encounter 11/05/2023 9:30 AM EST Follow Up Anticoagulation [facility] [address] [place] [address] [facility] Start: 10-05-2023 End: 10-05-2023 Follow-up encounter 10/05/2023 9:00 AM EST Follow Up Anticoagulation [facility] [address] [place] [address] [facility] Start: 10-04-2023 Hemolytic complement CH50 level [facility] Start: 05-14-2023 COVID-19 Vaccine () COVID-19 Vaccine () [facility] Start: 03-19-2023 Hemolytic complement CH50 level [facility] Start: 05-14-2021 Influenza vaccination Flu vaccine (# 1) [facility] Start: 11-09-2017 Ambulatory [facility] Start: 09-27-2017 Thyroid stimulating hormone measurement TSH testing [facility] Start: 05-14-2017 Influenza vaccination SEQUENTI AL INFLUENZA VACCINE (#1) [facility] Work Phone: Start: 2011 Screening for malignant neoplasm of breast Breast cancer screen [facility] Start: 2011 Shingles Vaccine (1 of 2) Shingles Vaccine (1 of 2) [facility] Start: 2006 Screening for malignant neoplasm of colon [facility] Start: 1991 Screening for malignant neoplasm of cervix [facility] Start: 1982 Screening for malignant neoplasm of cervix Pap smear [facility] Start: 1980 DTaP,Tdap and Td Vaccines (1 - Tdap) DTaP,Tdap and Td Vaccines (1 - Tdap) [facility] Start: 1980 DTaP/Tdap/Td vaccine (1 - Tdap) DTaP/Tdap/Td vaccine (1 - Tdap) [facility] Start: 1979 Adult BMI Follow Up Plan Adult BMI Follow Up Plan [facility] Start: 1976 HIV screening HIV screen [facility] Start: 1973 Depression Monitoring Depression Mon [facility] Start: 1971 Lipid panel Lipid screen [facility] Start: 1966 COVID-19 Vaccine (1) COVID-19 Vaccin e (1) [facility] Start: 1961 Hepatitis [facility] Start: 1961 Screening for malignant neoplasm of colon [facility] Start: 1961 HEPATITIS C SCREENING HEPATITIS C SC REENING [facility] Work Phone: Start: 1961 Screening colonoscopy COLONOSCOPY O [facility] Work Phone: Start: 1961 Screening for malignant neoplasm of cervix PAP SMEAR [facility] Work Phone: Start: 1961 Tetanus vaccination TETANUS EVERY 10 YR [email or web address] Work Phone: Complement C3 [Mass/volume] in Serum or Plasma [facility] Complement C3 [Mass/volume] in Serum or Plasma [facility] Complement C3 [Mass/volume] in Serum or Plasma [facility] Complement C4 [Mass/volume] in Serum or Plasma [facility] Complement C4 [Mass/volume] in Serum or Plasma [facility] Complement C4 [Mass/volume] in Serum or Plasma [facility] ECG 12 Lead ECG 12 Lead Rout ine Pre-op exam Ordered: 10/21/2017 [email or web address] Work Phone: HbA1c Hemoglobin A1c R outine 10/21/2017 12:20 PM EST [email or web address] Work Phone: End: 12-10-[address] [facility] [employer] Work Phone: Comment on above: Once for 1 Occurrenc es starting 12/10/2021 until 12/10/2021 Nicotine and Metabolites, Blood Nicotine and Metabolites, Blood Routine 10/21/2017 12:20 PM [employer] Work Phone: Vitamin D, Total, 25-OH Vitamin D, Total, 25-OH Routine 10/21/2017 12:20 PM [employer] Work Phone: Immunizations Immunization Date Immunization Notes Care Provider [facility] 07-23-2023 influenza virus vaccine, unspecified formulation DIANA GARRETT [facility] 07-23-2023 influenza, injectabl e, quadrivalent, preservative free [facility] 1 [facility] Work Phone: 01-16-2021 SARS-CoV-2 (COVID-19 ) mRNA-1273 vaccine DIANA GARRETT [facility] 01-14-2021 SARS-CoV-2 (COVID-19 ) mRNA-1273 vaccine DIANA GARRETT [facility] Comment on above: Result Comment: 2021: [id number] 01-13-2021 COVID-19, mRNA, LNP- S, PF, 100mcg/0.5mL Dose [facility] [address] [facility] 12-19-2020 SARS-CoV-2 (COVID-19 ) mRNA-[id number] vaccine DIANA GERRY [facility] 12-18-2020 COVID-19, mRNA, LNP- S, PF, 100mcg/0.5mL Dose [facility] [address] [facility] 06-13-2020 influenza virus vaccine, unspecified formulation DIANA GERRY [facility] 2020 influenza virus vaccine, unspecified formulation DIANA GERRY [facility] 2020 influenza, seasonal, injectable [facility] [address] [facility] 06-03-2020 influenza, seasonal, injectable [facility] [address] [facility] 06-27-2019 zoster vaccine recombinant DIANA GERRY [facility] 05-10-2019 influenza, injectabl e, quadrivalent, preservative free [facility] [address] [facility] 04-25-2019 zoster vaccine recombinant DIANA GERRY [facility] 06-26-2018 influenza virus vaccine, unspecified formulation DIANA GERRY [facility] 06-26-2018 influenza, injectabl e, quadrivalent, preservative free [facility] [address] [facility] 06-13-2018 influenza virus vaccine, unspecified formulation DIANA GERRY [facility] 06-13-2018 influenza, injectabl e, quadrivalent, contains preservative Pmh [address] [facility] 03-08-2018 pneumococcal conjuga te vaccine, 13 valent DIANA GARRETT [facility] 06-14-2017 influenza virus vaccine, unspecified formulation DIANA GARRETT [facility] 06-14-2017 influenza, seasonal, injectable, preservative free Pmh [address] [facility] 06-13-2017 influenza virus vaccine, unspecified formulation Pmh [address] [facility] 06-10-2015 influenza, seasonal, injectable, preservative free Pmh [address] [facility] Payers Date Payer Category Payer Medicare [id number] 2023 Self-pay [id number] 2020 Medicare [id number] 2006 [employer] ( and others) [id number]. [id number] 71.315 2003 Medicare [id number] 2.16.840.1.380275.3.249.13 2003 Medicare [id number]. 1.13.424.2.7.3.6786 71.315 1961 Unknown [id number] 2.16.840.1.563062.3.579.2. 1961 Unknown [id number] 2.16.840.1.056009.3.579.2. 1961 Unknown [id number] 2.16.840.1.629543.3.579.2. 1961 Unknown [id number] 2.16.840.1.595381.3.579.2. 1961 Unknown [id number] 2.16.840.1.164410.3.579.2.90 1961 Unknown [id number] 2.16.840.1.497443.3.579.2.593 1961 Unknown [id number] 2.16.840.1.633345.3.579.2.593 1961 Unknown [id number] 2.16.840.1.326800.3.579.2.593 1961 Unknown [id number] 2.16.840.1.069685.3.579.2.727 1961 Unknown [id number] 2.16.840.1.945880.3.579.2.727 1961 Unknown [id number] 2.16.840.1.513281.3.579.2.727 1961 Unknown [id number] 2.16.840.1.633359.3.579.2.727 1961 Unknown [id number] 2.16.840.1.068196.3.579.2.727 1961 Unknown [id number] 2.16.840.1.950702.3.579.2.727 1961 Unknown [id number] 2.16.840.1.459912.3.579.2.727 1961 Unknown [id number] 2.16.840.1.410151.3.579.2.727 1961 Unknown [id number] 2.16.840.1.502471.3.579.2.727 1961 Unknown [id number] 2.16.840.1.561946.3.579.2.1286 1961 Unknown [id number] 2.16.840.1.761092.3.579.2.1286 1961 Unknown [id number] 2.16.840.1.111891.3.579.2.1259 1961 Unknown [id number] 2.16.840.1.545724.3.579.2.1259 1961 Unknown [id number] 2.16.840.1.963946.3.579.2.1259 1961 Unknown [id number] 2.16.840.1.685143.3.579.2.1259 1961 Unknown [id number] 2.16.840.1.987190.3.579.2.196 1961 Unknown [id number] 2.16.840.1.565079.3.579.2.196 1961 Unknown [id number] 2.16.840.1.745518.3.579.2. 1961 Unknown [id number] 2.16.840.1.501234.3.579.2. 1961 Unknown [id number] 2.16.840.1.320644.3.579.2. 1961 Unknown [id number] 2.16.840.1.081397.3.579.2. 1961 Unknown [id number] 2.16.840.1.747623.3.579.2. 1961 Unknown [id number] 2.16.840.1.809363.3.579.2. 1961 Unknown [id number] 2.16.840.1.478453.3.579.2.196 1961 Unknown [id number] 2.16.840.1.929628.3.579.2. 1961 Unknown [id number] 2.16.840.1.469823.3.579.2. 1961 Unknown [id number] 2.16.840.1.312792.3.579.2. 1961 Unknown [id number] 2.16.840.1.427160.3.579.2.196 1961 Unknown [id number] 2.16.840.1.511121.3.579.2. 1961 Unknown [id number] 2.16.840.1.737657.3.579.2. 1961 Unknown [id number] 2.16.840.1.864355.3.579.2. 1961 Unknown [id number] 2.16.840.1.445734.3.579.2. 1961 Unknown [id number] 2.16.840.1.588614.3.579.2.1285 1961 Unknown [id number] 2.16.840.1.595373.3.579.2.1285 1961 Unknown [id number] 2.16.840.1.874701.3.579.2.1285 1961 Unknown [id number] 2.16.840.1.220671.3.579.2.1285 1961 Unknown [id number] 2.16.840.1.919209.3.579.2.1285 1961 Unknown [id number] 2.16.840.1.442902.3.579.2.1285 1961 Unknown [id number] 2.16.840.1.431723.3.579.2.1285 1961 Unknown [id number] 2.16.840.1.088710.3.579.2.1285 1961 Unknown [id number] 2.16.840.1.659262.3.579.2.1285 1961 Unknown [id number] 2.16.840.1.053035.3.579.2.1285 1961 Unknown [id number] 2.16.840.1.318587.3.579.2.1285 1961 Unknown [id number] 2.16.840.1.014989.3.579.2.1285 1961 Unknown [id number] 2.16.840.1.974269.3.579.2.1285 1961 Unknown [id number] 2.16.840.1.821587.3.579.2.1285 1961 Unknown [id number] 2.16.840.1.443785.3.579.2.1285 1961 Unknown [id number] 2.16.840.1.385832.3.579.2.1285 1961 Unknown [id number] 2.16.840.1.621663.3.579.2.1285 1961 Unknown [id number] 2.16.840.1.413380.3.579.2.1285 1961 Unknown [id number] 2.16.840.1.697448.3.579.2.1285 1961 Unknown [id number] 2.16.840.1.139418.3.579.2. 1961 Unknown [id number] 2.16.840.1.859502.3.579.2. 1961 Unknown [id number] 2.16.840.1.326504.3.579.2. 1961 Unknown [id number] 2.16.840.1.915614.3.579.2. 1961 Unknown [id number] 2.16.840.1.420530.3.579.2. 1961 Unknown [id number] 2.16.840.1.698348.3.579.2. 1961 Unknown [id number] 2.16.840.1.054995.3.579.2. 1961 Unknown [id number] 2.16.840.1.890054.3.579.2. 1961 Unknown [id number] 2.16.840.1.952756.3.579.2.718 1961 Unknown [id number] 2.16.840.1.243789.3.579.2.718 1961 Unknown [id number] 2.16.840.1.896325.3.579.2.718 1961 Unknown [id number] 2.16.840.1.253196.3.579.2.71 1961 Unknown [id number] 2.16.840.1.604587.3.579.2.718 1959 Medicare [id number] 1959 Unknown [id number] 2.16.840.1.838694.3.249.13 Medicare xxxxxxxxxx 2.16.840.1.141146.3.249.13 Unknown xxxxxxxxx 2.16.840.1.831025.3.249.13 Unknown [id number] 2.16.840.1.303705.3.579.2.531 Unknown [id number] 2.16.840.1.297823.3.579.2.531 Unknown [id number] 2.16.840.1.060042.3.579.2.531 Unknown [id number] 2.16.840.1.389946.3.579.2.531 Social History Date Type Detail Facility Start: 11-09-2017 End: 08-19-2022 Tobacco smoking status [facility] Never smoker [facility] Start: 1960 Sex Assigned At Not on file [email or web address] Work Phone: Tobacco smoking status Never [facility] Start: 12-07-2021 End: 05-06-2023 Sex Assigned At Female [facility] Start: 1960 Sex Assigned At Female [facility] Start: 08-19-2022 End: 03-29-2023 Tobacco use and exposure Smokeless tobacco non-user [facility] Start: 06-27-2023 End: 12-09-2023 Alcohol intake Current non-drinker of alcohol (finding) [facility] Start: 12-07-2021 End: 06-27-2023 [facility] Do you belong to any clubs or organizations such as quaker groups, unions, fraternal or athletic groups, or school groups? No [facility] Are you now , , , , never or living with a partner? [facility] How often to you hav e a drink containing alcohol? Never [facility] Do you feel stress - tense, restless, nervous, or anxious, or unable to sleep at night because your mind is troubled all the time - these days [OSQ] Only a little [facility] Start: 05-26-2024 Alcoholic beverage intake Lifetime non-drinker (finding) [facility] Start: 06-11-2023 Education 13 [facility] Start: 06-11-2023 Alcohol Comment caffeine: 1-2 cups per day [facility] Start: 11-25-2022 Gender identity Identifies as female gender (finding) [facility] Medical Equipment Procedure Code Equipment Code Equipment Origin al Text Equipment Identifier Dates Liner 32mm C Fla t [place] Mpact - [id number] Start: 11-09-2017 Shell 48mm 2hl A cet Mpact - [id number] Start: 11-09-2017 Stem Sz2 Std Fem Prox Coat Ti Amistem-H - [id number] Start: 11-09-2017 Head 32mm +4 Fem Biolox Delta Mectacer - [id number] Start: 11-09-2017 Goals Date Patient Goal Desired Activity /State Personal health goal Comment on above: Formatting of this n ote might be different from the original. Evaluation of progress towards goal: transfer to [facility] for med adjustments Functional Status Date Assessment Result Facility 08-25-2022 Functional Status N/A [facility] Clinical Notes 08-25-2022 to 06-21-2024 Telephone Encounter - Sony Sampson CMA - 06/21/2024 11:26 AM EDTTelephone Encounter - Sony Sampson CMA - 06/21/2024 11:26 AM EDTTelephone Encounter - Teresa Rios - 06/15/2024 4:07 PM EDT Note Date & Type Note Facility 06-21-2024 Miscellaneous Notes I called pt to get her scheduled for a Colonoscopy. Pt states she will call us. I gave her the days that Does them. She verbally states she understands documented in this encounter [facility] 06-21-2024 Telephone encounter Note I called pt to get her scheduled for a Colonoscopy. Pt states she will call us. I gave her the days that Dr Does them. She verbally states she understands [facility] 06-19-2024 Note [id number] [facility] 06-16-2024 Note [facility] Clinical Discharge Summary PERSON INFORMATION Name CATHIENOEMI Age 64 Years 1960 Sex FEMALE Language Finnish PCP Provider, None Marital Status Med Service Pain Management Surgery Acct# Arrival 06/16/2024 06:50:17 Visit Reason LUMBAR PAIN Acuity LOS 009 15:52 Address: [address] [place] [address] Comment: PROVIDER INFORMATION VITALS INFORMATION Vital Sign Triage Latest Temp Oral Temp Temporal Temp Intravascular Temp Axillary Temp Rectal 02 Sat Respiratory Rate Peripheral Pulse Rate Apical Heart Rate Blood Pressure / / Comment: MEDICAL INFORMATION Allergy Info: Trintellix; Latuda; Zoloft; predniSONE; amoxicillin; lithium; erythromycin Prescriptions Given: acetaminophen-butalbital (acetaminophen-butalbital 300 mg-50 mg oral capsule) 1 cap(s) Oral; as needed as needed for headache. aspirin (Aspirin 81 Chewtab) 1 tab(s) Oral (given by mouth) every day. atorvastatin (Lipitor) 80 Milligram Oral (given by mouth) every day. baclofen (baclofen 10 mg oral tablet) 1 tab(s) Oral (given by mouth) 4 times a day. buPROPion (buPROPion 300 mg/24 hours (XL) oral tablet, extended release) 1 tab(s) Oral (given by mouth) every day. cholecalciferol (Vitamin D3 125 mcg (5000 intl units) oral tablet, disintegrating) 1 tab(s) Oral (given by mouth) every day. famotidine (famotidine 40 mg oral tablet) 1 tab(s) Oral (given by mouth) every day. ferrous sulfate (ferrous sulfate 325 mg Tab) 325 Milligram Oral (given by mouth) 2 times per day. folic acid (folic acid 1 mg oral tablet) 1 tab(s) Oral (given by mouth) every day. gabapentin (Neurontin 300 mg oral capsule) 1 tab(s) Oral (given by mouth) 4 times a day. galcanezumab (Emgality Prefilled Pen 120 mg/mL subcutaneous solution) 120 Milligram Subcutaneous (under the skin) every 4 weeks. levothyroxine (levothyroxine 50 mcg (0.05 mg) oral tablet) 1 tab(s) Oral (given by mouth) every day. metoclopramide (Reglan 10 mg oral tablet) 1 tab(s) Oral TID before meals. montelukast (Singulair 10 mg oral tablet) 1 tab(s) Oral (given by mouth) once a day (in the evening). naltrexone 2mg qhs. omega-3 polyunsaturated fatty acids (Fish Oil) 2400mg daily. pantoprazole (Protonix 40 mg oral delayed release tablet) 1 tab(s) Oral (given by mouth) 2 times per day. QUEtiapine (Seroquel XR 400 mg oral tablet, extended release) 1 tab(s) Oral (given by mouth) At bedtime. senna (senna 17.2 mg oral tablet) 1 tab(s) Oral (given by mouth) once a day (at bedtime) as needed for constipation. Template Non-Formulary (Compund medication with Biotin) 1 tab(s) Oral (given by mouth) At bedtime. Template Non-Formulary (Compund medication with Biotin) 2 tab(s) Oral (given by mouth) every day. valsartan (valsartan 80 mg oral tablet) 1 tab(s) Oral (given by mouth) every day. warfarin (Coumadin) 5 Milligram every day. zolpidem (Ambien 10 mg oral tablet) 1 tab(s) Oral (given by mouth) once a day (at bedtime) as needed as needed for insomnia. Medication List: Medications to Continue That Have Not Changed Other Medications acetaminophen-butalbital (acetaminophen-butalbital 300 mg-50 mg oral capsule) 1 cap(s) Oral; as needed as needed for headache. aspirin (Aspirin 81 Chewtab) 1 tab(s) Oral (given by mouth) every day. atorvastatin (Lipitor) 80 Milligram Oral (given by mouth) every day. baclofen (baclofen 10 mg oral tablet) 1 tab(s) Oral (given by mouth) 4 times a day. buPROPion (buPROPion 300 mg/24 hours (XL) oral tablet, extended release) 1 tab(s) Oral (given by mouth) every day. cholecalciferol (Vitamin D3 125 mcg (5000 intl units) oral tablet, disintegrating) 1 tab(s) Oral (given by mouth) every day. famotidine (famotidine 40 mg oral tablet) 1 tab(s) Oral (given by mouth) every day. ferrous sulfate (ferrous sulfate 325 mg Tab) 325 Milligram Oral (given by mouth) 2 times per day. folic acid (folic acid 1 mg oral tablet) 1 tab(s) Oral (given by mouth) every day. gabapentin (Neurontin 300 mg oral capsule) 1 tab(s) Oral (given by mouth) 4 times a day. galcanezumab (Emgality Prefilled Pen 120 mg/mL subcutaneous solution) 120 Milligram Subcutaneous (under the skin) every 4 weeks. levothyroxine (levothyroxine 50 mcg (0.05 mg) oral tablet) 1 tab(s) Oral (given by mouth) every day. metoclopramide (Reglan 10 mg oral tablet) 1 tab(s) Oral TID before meals. montelukast (Singulair 10 mg oral tablet) 1 tab(s) Oral (given by mouth) once a day (in the evening). naltrexone 2mg qhs. omega-3 polyunsaturated fatty acids (Fish Oil) 2400mg daily. pantoprazole (Protonix 40 mg oral delayed release tablet) 1 tab(s) Oral (given by mouth) 2 times per day. QUEtiapine (Seroquel XR 400 mg oral tablet, extended release) 1 tab(s) Oral (given by mouth) At bedtime. senna (senna 17.2 mg oral tablet) 1 tab(s) Oral (given by mouth) once a day (at bedtime) as needed for constipation. Template Non-Formulary (Compund medication wi (more content not included)... [facility] 06-15-2024 Telephone encounter Note I am resending Fioricet correct dose as the reason likely denied is the 300 mg of tylenol instead of 325 mg and that would have been my error. I called patient and let her know. [facility] 06-15-2024 Miscellaneous Notes I am resending Fioricet correct dose as the reason likely denied is the 300 mg of tylenol instead of 325 mg and that would have been my error. I called patient and let her know. Patient left message stating that she faxed a letter she received on Wednesday that gave alternative prescriptions. Checking on status if something different can be sent to [facility] in [place] or [place]. documented in this encounter [facility] 06-15-2024 Telephone encounter Note Patient left message stating that she faxed a letter she received on Wednesday that gave alternative prescriptions. Checking on status if something different can be sent to [facility] in [place] or [place]. [facility] 06-15-2024 Note [id number] The history of present illness has been reviewed. There are no changes document. [Electronically Signed on: 06/16/2024 07:13 EDT] LINA SCHWAB MD [Verified on: 06/16/2024 07:13 EDT] LINA SCHWAB MD [Transcribed on: 06/15/2024 14:04 EDT] [facility] 06-15-2024 History of Present illness Narrative 15 minute [id number]-[id number] follow-up anticoagulation appointment. INR performed in office per protocol. INR 2.8 (goal range: 2.0-3.0). Patient reports: Taking warfarin dosing as documented. Missed or extra doses of warfarin: No Changes to medications: No Changes to lifestyle (diet / alcohol / smoking / activity): No Recent emergency department visit / hospitalization / health changes / new contraindication to current anticoagulant: No Signs/symptoms of bruising/bleeding or clotting or any intolerable adverse events: No Upcoming procedures: YES Pain procedure tomorrow; no holding needs Anticoagulant prescription needed: No Seen referring provider in the last year Duration of therapy reviewed Assessment: INR is remaining stable in therapeutic range on current warfarin regimen. Plan: Patient instructed to continue warfarin 2.5 mg Mon/Thurs and 5 mg AOD. Check INR in 4 week(s). Patient verbalizes understanding of anticoagulant dosing instructions and information discussed. Dosing regimen, counseling, and follow-up appointment were provided to the patient. Patient reminded to call with questions or any medication changes. Patient instructed to seek medical attention if any major bleeding/bleeding that persists or worsens. Luz Marina De Santiago RPH 06/15/24 0937 documented in this encounter [facility] 06-14-2024 Note Called and spoke wit h patient to remind patient to have INR level checked prior to procedure on Wednesday. Patient reports that she is scheduled to have it checked tomorrow. Moved patient arrival time to 0700. [Electronically Signed on: 06/14/2024 10:34 EDT] Anita Valle RN [Verified on: 06/14/2024 10:34 EDT] Anita Valle RN [facility] 06-13-2024 Miscellaneous Notes Pt needs a refill on Ferrous Sulfate. Pharmacy is [facility]. documented in this encounter [facility] 06-13-2024 Telephone encounter Note Pt needs a refill on Ferrous Sulfate. Pharmacy is [facility] 05-16-2024 Note [id number]#[id number] 05-16-2024 Note [id number]#[id number] 05-12-2024 Note [facility] SURGERY Clinical Discharge Summary PERSON INFORMATION Name NOEMI BRAND Age 63 Years 1960 Sex FEMALE Language Finnish PCP Provider, None Marital Status Unknown Med Service Pain Management Surgery Acct# Arrival 05/12/2024 10:58:18 Visit Reason LUMBAR NEURITIS Acuity LOS 004 01:06 Address: [address] [place] [id number] Comment: PROVIDER INFORMATION VITALS INFORMATION Vital Sign Triage Latest Temp Oral Temp Temporal Temp Intravascular Temp Axillary Temp Rectal 02 Sat 97 % 97 % Respiratory Rate Peripheral Pulse Rate Apical Heart Rate Blood Pressure / 80 mmHg / 80 mmHg Comment: MEDICAL INFORMATION Allergy Info: Trintellix; Latuda; Zoloft; predniSONE; amoxicillin; lithium; erythromycin Prescriptions Given: acetaminophen-butalbital (acetaminophen-butalbital 300 mg-50 mg oral capsule) 1 cap(s) Oral; as needed as needed for headache. aspirin (Aspirin 81 Chewtab) 1 tab(s) Oral (given by mouth) every day. atorvastatin (Lipitor) 80 Milligram Oral (given by mouth) every day. baclofen (baclofen 10 mg oral tablet) 1 tab(s) Oral (given by mouth) 4 times a day. buPROPion (buPROPion 300 mg/24 hours (XL) oral tablet, extended release) 1 tab(s) Oral (given by mouth) every day. cholecalciferol (Vitamin D3 125 mcg (5000 intl units) oral tablet, disintegrating) 1 tab(s) Oral (given by mouth) every day. famotidine (famotidine 40 mg oral tablet) 1 tab(s) Oral (given by mouth) every day. ferrous sulfate (ferrous sulfate 325 mg Tab) 325 Milligram Oral (given by mouth) 2 times per day. folic acid (folic acid 1 mg oral tablet) 1 tab(s) Oral (given by mouth) every day. gabapentin (Neurontin 300 mg oral capsule) 1 tab(s) Oral (given by mouth) 4 times a day. galcanezumab (Emgality Prefilled Pen 120 mg/mL subcutaneous solution) 120 Milligram Subcutaneous (under the skin) every 4 weeks. levothyroxine (levothyroxine 50 mcg (0.05 mg) oral tablet) 1 tab(s) Oral (given by mouth) every day. metoclopramide (Reglan 10 mg oral tablet) 1 tab(s) Oral TID before meals. montelukast (Singulair 10 mg oral tablet) 1 tab(s) Oral (given by mouth) once a day (in the evening). naltrexone 2mg qhs. omega-3 polyunsaturated fatty acids (Fish Oil) 2400mg daily. pantoprazole (Protonix 40 mg oral delayed release tablet) 1 tab(s) Oral (given by mouth) 2 times per day. QUEtiapine (Seroquel XR 400 mg oral tablet, extended release) 1 tab(s) Oral (given by mouth) At bedtime. senna (senna 17.2 mg oral tablet) 1 tab(s) Oral (given by mouth) once a day (at bedtime) as needed for constipation. Template Non-Formulary (Compund medication with Biotin) 1 tab(s) Oral (given by mouth) At bedtime. Template Non-Formulary (Compund medication with Biotin) 2 tab(s) Oral (given by mouth) every day. valsartan (valsartan 80 mg oral tablet) 1 tab(s) Oral (given by mouth) every day. warfarin (Coumadin) 5 Milligram every day. zolpidem (Ambien 10 mg oral tablet) 1 tab(s) Oral (given by mouth) once a day (at bedtime) as needed as needed for insomnia. Medication List: Medications to Continue That Have Not Changed Other Medications acetaminophen-butalbital (acetaminophen-butalbital 300 mg-50 mg oral capsule) 1 cap(s) Oral; as needed as needed for headache. aspirin (Aspirin 81 Chewtab) 1 tab(s) Oral (given by mouth) every day. atorvastatin (Lipitor) 80 Milligram Oral (given by mouth) every day. baclofen (baclofen 10 mg oral tablet) 1 tab(s) Oral (given by mouth) 4 times a day. buPROPion (buPROPion 300 mg/24 hours (XL) oral tablet, extended release) 1 tab(s) Oral (given by mouth) every day. cholecalciferol (Vitamin D3 125 mcg (5000 intl units) oral tablet, disintegrating) 1 tab(s) Oral (given by mouth) every day. famotidine (famotidine 40 mg oral tablet) 1 tab(s) Oral (given by mouth) every day. ferrous sulfate (ferrous sulfate 325 mg Tab) 325 Milligram Oral (given by mouth) 2 times per day. folic acid (folic acid 1 mg oral tablet) 1 tab(s) Oral (given by mouth) every day. gabapentin (Neurontin 300 mg oral capsule) 1 tab(s) Oral (given by mouth) 4 times a day. galcanezumab (Emgality Prefilled Pen 120 mg/mL subcutaneous solution) 120 Milligram Subcutaneous (under the skin) every 4 weeks. levothyroxine (levothyroxine 50 mcg (0.05 mg) oral tablet) 1 tab(s) Oral (given by mouth) every day. metoclopramide (Reglan 10 mg oral tablet) 1 tab(s) Oral TID before meals. montelukast (Singulair 10 mg oral tablet) 1 tab(s) Oral (given by mouth) once a day (in the evening). naltrexone 2mg qhs. omega-3 polyunsaturated fatty acids (Fish Oil) 2400mg daily. pantoprazole (Protonix 40 mg oral delayed release tablet) 1 tab(s) Oral (given by mouth) 2 times per day. QUEtiapine (Seroquel XR 400 mg oral tablet, extended release) 1 tab(s) Oral (given by mouth) At bedtime. senna (senna 17.2 mg oral tablet) 1 tab(s) Oral (given by mouth) once a day (at bedtime) as needed for constipation. Template Non-Fo (more content not included)... [facility] 05-11-2024 Note [id number] The history of present illness has been reviewed. There are no changes document. [Electronically Signed on: 05/12/2024 11:16 EDT] LINA SCHWAB MD [Verified on: 05/12/2024 11:16 EDT] LINA SCHWAB MD [Transcribed on: 05/11/2024 12:55 EDT] [facility] 04-17-2024 Note [id number] [facility] 04-14-2024 Note [facility] SURGERY Clinical Discharge Summary PERSON INFORMATION Name NOEMI BRAND Age 63 Years 1960 Sex FEMALE Language Finnish PCP Provider, None Marital Status Unknown Med Service Pain Management Surgery Acct# Arrival 04/14/2024 08:45:32 Visit Reason SACROILIITIS Acuity LOS 014 23:52 Address: [address] [place] [address] Comment: PROVIDER INFORMATION VITALS INFORMATION Vital Sign Triage Latest Temp Oral Temp Temporal Temp Intravascular Temp Axillary Temp Rectal 02 Sat 96 % 96 % Respiratory Rate Peripheral Pulse Rate Apical Heart Rate Blood Pressure / 80 mmHg / 80 mmHg Comment: MEDICAL INFORMATION Allergy Info: Trintellix; Latuda; Zoloft; predniSONE; amoxicillin; lithium; erythromycin Prescriptions Given: acetaminophen-butalbital (acetaminophen-butalbital 300 mg-50 mg oral capsule) 1 cap(s) Oral; as needed as needed for headache. aspirin (Aspirin 81 Chewtab) 1 tab(s) Oral (given by mouth) every day. atorvastatin (Lipitor) 80 Milligram Oral (given by mouth) every day. baclofen (baclofen 10 mg oral tablet) 1 tab(s) Oral (given by mouth) 4 times a day. buPROPion (buPROPion 300 mg/24 hours (XL) oral tablet, extended release) 1 tab(s) Oral (given by mouth) every day. cholecalciferol (Vitamin D3 125 mcg (5000 intl units) oral tablet, disintegrating) 1 tab(s) Oral (given by mouth) every day. famotidine (famotidine 40 mg oral tablet) 1 tab(s) Oral (given by mouth) every day. ferrous sulfate (ferrous sulfate 325 mg Tab) 325 Milligram Oral (given by mouth) 2 times per day. folic acid (folic acid 1 mg oral tablet) 1 tab(s) Oral (given by mouth) every day. gabapentin (Neurontin 300 mg oral capsule) 1 tab(s) Oral (given by mouth) 4 times a day. galcanezumab (Emgality Prefilled Pen 120 mg/mL subcutaneous solution) 120 Milligram Subcutaneous (under the skin) every 4 weeks. levothyroxine (levothyroxine 50 mcg (0.05 mg) oral tablet) 1 tab(s) Oral (given by mouth) every day. metoclopramide (Reglan 10 mg oral tablet) 1 tab(s) Oral TID before meals. montelukast (Singulair 10 mg oral tablet) 1 tab(s) Oral (given by mouth) once a day (in the evening). naltrexone 2mg qhs. omega-3 polyunsaturated fatty acids (Fish Oil) 2400mg daily. pantoprazole (Protonix 40 mg oral delayed release tablet) 1 tab(s) Oral (given by mouth) 2 times per day. QUEtiapine (Seroquel XR 400 mg oral tablet, extended release) 1 tab(s) Oral (given by mouth) At bedtime. senna (senna 17.2 mg oral tablet) 1 tab(s) Oral (given by mouth) once a day (at bedtime) as needed for constipation. Template Non-Formulary (Compund medication with Biotin) 1 tab(s) Oral (given by mouth) At bedtime. Template Non-Formulary (Compund medication with Biotin) 2 tab(s) Oral (given by mouth) every day. valsartan (valsartan 80 mg oral tablet) 1 tab(s) Oral (given by mouth) every day. warfarin (Coumadin) 5 Milligram every day. zolpidem (Ambien 10 mg oral tablet) 1 tab(s) Oral (given by mouth) once a day (at bedtime) as needed as needed for insomnia. Medication List: Medications to Continue That Have Not Changed Other Medications acetaminophen-butalbital (acetaminophen-butalbital 300 mg-50 mg oral capsule) 1 cap(s) Oral; as needed as needed for headache. aspirin (Aspirin 81 Chewtab) 1 tab(s) Oral (given by mouth) every day. atorvastatin (Lipitor) 80 Milligram Oral (given by mouth) every day. baclofen (baclofen 10 mg oral tablet) 1 tab(s) Oral (given by mouth) 4 times a day. buPROPion (buPROPion 300 mg/24 hours (XL) oral tablet, extended release) 1 tab(s) Oral (given by mouth) every day. cholecalciferol (Vitamin D3 125 mcg (5000 intl units) oral tablet, disintegrating) 1 tab(s) Oral (given by mouth) every day. famotidine (famotidine 40 mg oral tablet) 1 tab(s) Oral (given by mouth) every day. ferrous sulfate (ferrous sulfate 325 mg Tab) 325 Milligram Oral (given by mouth) 2 times per day. folic acid (folic acid 1 mg oral tablet) 1 tab(s) Oral (given by mouth) every day. gabapentin (Neurontin 300 mg oral capsule) 1 tab(s) Oral (given by mouth) 4 times a day. galcanezumab (Emgality Prefilled Pen 120 mg/mL subcutaneous solution) 120 Milligram Subcutaneous (under the skin) every 4 weeks. levothyroxine (levothyroxine 50 mcg (0.05 mg) oral tablet) 1 tab(s) Oral (given by mouth) every day. metoclopramide (Reglan 10 mg oral tablet) 1 tab(s) Oral TID before meals. montelukast (Singulair 10 mg oral tablet) 1 tab(s) Oral (given by mouth) once a day (in the evening). naltrexone 2mg qhs. omega-3 polyunsaturated fatty acids (Fish Oil) 2400mg daily. pantoprazole (Protonix 40 mg oral delayed release tablet) 1 tab(s) Oral (given by mouth) 2 times per day. QUEtiapine (Seroquel XR 400 mg oral tablet, extended release) 1 tab(s) Oral (given by mouth) At bedtime. senna (senna 17.2 mg oral tablet) 1 tab(s) Oral (given by mouth) once a day (at bedtime) as needed for constipation. Template Non-Formul (more content not included)... [facility] 04-13-2024 Note [id number] The history of present illness has been reviewed. There are no changes document. [Electronically Signed on: 04/14/2024 09:24 EDT] LINA SCHWAB MD [Verified on: 04/14/2024 09:24 EDT] LINA SCHWAB MD [Transcribed on: 04/13/2024 14:42 EDT] [facility] 04-12-2024 Note Called patient to re mind to have INR level checked prior to procedure on Wednesday. Patient states she is scheduled to have it checked tomorrow. [Electronically Signed on: 04/12/2024 10:08 EDT] Anita Valle RN [Verified on: 04/12/2024 10:08 EDT] Anita Valle RN [facility] 02-08-2024 Note [id number] [facility] 02-04-2024 Note [facility] SURGERY Clinical Discharge Summary PERSON INFORMATION Name NOEMI BRAND Age 63 Years 1960 Sex FEMALE Language Finnish PCP Provider, None Marital Status Unknown Med Service Pain Management Surgery Acct# Arrival 02/04/2024 10:38:56 Visit Reason THORACIC PAIN Acuity LOS 004 01:24 Address: [address] [place] [address] Comment: PROVIDER INFORMATION VITALS INFORMATION Vital Sign Triage Latest Temp Oral Temp Temporal Temp Intravascular Temp Axillary Temp Rectal 02 Sat 97 % 97 % Respiratory Rate Peripheral Pulse Rate Apical Heart Rate Blood Pressure / 76 mmHg / 76 mmHg Comment: MEDICAL INFORMATION Allergy Info: Trintellix; Latuda; Zoloft; predniSONE; amoxicillin; lithium; erythromycin Prescriptions Given: acetaminophen-butalbital (acetaminophen-butalbital 300 mg-50 mg oral capsule) 1 cap(s) Oral; as needed as needed for headache. aspirin (Aspirin 81 Chewtab) 1 tab(s) Oral (given by mouth) every day. atorvastatin (Lipitor) 80 Milligram Oral (given by mouth) every day. baclofen (baclofen 10 mg oral tablet) 1 tab(s) Oral (given by mouth) 4 times a day. buPROPion (buPROPion 300 mg/24 hours (XL) oral tablet, extended release) 1 tab(s) Oral (given by mouth) every day. cholecalciferol (Vitamin D3 125 mcg (5000 intl units) oral tablet, disintegrating) 1 tab(s) Oral (given by mouth) every day. famotidine (famotidine 40 mg oral tablet) 1 tab(s) Oral (given by mouth) every day. ferrous sulfate (ferrous sulfate 325 mg Tab) 325 Milligram Oral (given by mouth) 2 times per day. folic acid (folic acid 1 mg oral tablet) 1 tab(s) Oral (given by mouth) every day. gabapentin (Neurontin 300 mg oral capsule) 1 tab(s) Oral (given by mouth) 4 times a day. galcanezumab (Emgality Prefilled Pen 120 mg/mL subcutaneous solution) 120 Milligram Subcutaneous (under the skin) every 4 weeks. levothyroxine (levothyroxine 50 mcg (0.05 mg) oral tablet) 1 tab(s) Oral (given by mouth) every day. loratadine-pseudoephedrine (Claritin-D 12 Hour) 1 tab(s) Oral (given by mouth) every day. metoclopramide (Reglan 10 mg oral tablet) 1 tab(s) Oral TID before meals. montelukast (Singulair 10 mg oral tablet) 1 tab(s) Oral (given by mouth) once a day (in the evening). naltrexone 2mg qhs. omega-3 polyunsaturated fatty acids (Fish Oil) 2400mg daily. pantoprazole (Protonix 40 mg oral delayed release tablet) 1 tab(s) Oral (given by mouth) 2 times per day. QUEtiapine (Seroquel XR 400 mg oral tablet, extended release) 1 tab(s) Oral (given by mouth) At bedtime. senna (senna 17.2 mg oral tablet) 1 tab(s) Oral (given by mouth) once a day (at bedtime) as needed for constipation. Template Non-Formulary (Compund medication with Biotin) 1 tab(s) Oral (given by mouth) At bedtime. Template Non-Formulary (Compund medication with Biotin) 2 tab(s) Oral (given by mouth) every day. valsartan (valsartan 80 mg oral tablet) 1 tab(s) Oral (given by mouth) every day. warfarin (Coumadin) 5 Milligram every day. zolpidem (Ambien 10 mg oral tablet) 1 tab(s) Oral (given by mouth) once a day (at bedtime) as needed as needed for insomnia. Medication List: Medications to Continue That Have Not Changed Other Medications acetaminophen-butalbital (acetaminophen-butalbital 300 mg-50 mg oral capsule) 1 cap(s) Oral; as needed as needed for headache. aspirin (Aspirin 81 Chewtab) 1 tab(s) Oral (given by mouth) every day. atorvastatin (Lipitor) 80 Milligram Oral (given by mouth) every day. baclofen (baclofen 10 mg oral tablet) 1 tab(s) Oral (given by mouth) 4 times a day. buPROPion (buPROPion 300 mg/24 hours (XL) oral tablet, extended release) 1 tab(s) Oral (given by mouth) every day. cholecalciferol (Vitamin D3 125 mcg (5000 intl units) oral tablet, disintegrating) 1 tab(s) Oral (given by mouth) every day. famotidine (famotidine 40 mg oral tablet) 1 tab(s) Oral (given by mouth) every day. ferrous sulfate (ferrous sulfate 325 mg Tab) 325 Milligram Oral (given by mouth) 2 times per day. folic acid (folic acid 1 mg oral tablet) 1 tab(s) Oral (given by mouth) every day. gabapentin (Neurontin 300 mg oral capsule) 1 tab(s) Oral (given by mouth) 4 times a day. galcanezumab (Emgality Prefilled Pen 120 mg/mL subcutaneous solution) 120 Milligram Subcutaneous (under the skin) every 4 weeks. levothyroxine (levothyroxine 50 mcg (0.05 mg) oral tablet) 1 tab(s) Oral (given by mouth) every day. loratadine-pseudoephedrine (Claritin-D 12 Hour) 1 tab(s) Oral (given by mouth) every day. metoclopramide (Reglan 10 mg oral tablet) 1 tab(s) Oral TID before meals. montelukast (Singulair 10 mg oral tablet) 1 tab(s) Oral (given by mouth) once a day (in the evening). naltrexone 2mg qhs. omega-3 polyunsaturated fatty acids (Fish Oil) 2400mg daily. pantoprazole (Protonix 40 mg oral delayed release tablet) 1 tab(s) Oral (given by mouth) 2 times per day. QUEtiapine (Seroquel XR 400 mg oral tablet, extended releas (more content not included)... [facility] 02-03-2024 Note [id number] The history of present illness has been reviewed. There are no changes document. [Electronically Signed on: 02/04/2024 12:29 EDT] LINA SCHWAB MD [Verified on: 02/04/2024 12:29 EDT] LINA SCHWAB MD [Transcribed on: 02/03/2024 15:14 EDT] [facility] 12-27-2023 Note [id number] [facility] 12-24-2023 Note [facility] SURGERY Clinical Discharge Summary PERSON INFORMATION Name NOEMI BRAND Age 63 Years 1960 Sex FEMALE Language Finnish PCP Provider, None Marital Status Unknown Med Service Pain Management Surgery Acct# Arrival 12/24/2023 07:05:36 Visit Reason THORACIC PAIN Acuity LOS 006 22:59 Address: [address] [place] [id number] Comment: PROVIDER INFORMATION VITALS INFORMATION Vital Sign Triage Latest Temp Oral Temp Temporal Temp Intravascular Temp Axillary Temp Rectal 02 Sat Respiratory Rate Peripheral Pulse Rate Apical Heart Rate Blood Pressure / / Comment: MEDICAL INFORMATION Allergy Info: Trintellix; Latuda; Zoloft; predniSONE; amoxicillin; lithium; erythromycin Prescriptions Given: acetaminophen-butalbital (acetaminophen-butalbital 300 mg-50 mg oral capsule) 1 cap(s) Oral; as needed as needed for headache. aspirin (Aspirin 81 Chewtab) 1 tab(s) Oral (given by mouth) every day. atorvastatin (Lipitor) 80 Milligram Oral (given by mouth) At bedtime. baclofen (baclofen 10 mg oral tablet) 1 tab(s) Oral (given by mouth) 4 times a day. biotin (biotin 1000 mcg oral tablet) 2tab(s) Oral Daily and 1 tab at night. buPROPion (buPROPion 300 mg/24 hours (XL) oral tablet, extended release) 1 tab(s) Oral (given by mouth) every day. cholecalciferol (Vitamin D3 125 mcg (5000 intl units) oral tablet, disintegrating) 1 tab(s) Oral (given by mouth) every day. cyanocobalamin (Vitamin B12) 1 tab(s) Oral (given by mouth) every day. famotidine (famotidine 40 mg oral tablet) 1 tab(s) Oral (given by mouth) every day. ferrous sulfate (ferrous sulfate 325 mg Tab) 325 Milligram Oral (given by mouth) 2 times a day (scheduled). folic acid (folic acid 1 mg oral tablet) 1 tab(s) Oral (given by mouth) every day. gabapentin (Neurontin 300 mg oral capsule) 4 times a day. galcanezumab (Emgality Prefilled Pen 120 mg/mL subcutaneous solution) levothyroxine (Synthroid 50 mcg (0.05 mg) oral tablet) take 1.5 tab daily. loratadine-pseudoephedrine (Claritin-D 12 Hour) 1 tab(s) Oral (given by mouth) every day. metoclopramide (Reglan 10 mg oral tablet) 1 tab(s) Oral TID before meals. montelukast (Singulair 10 mg oral tablet) 1 tab(s) Oral (given by mouth) once a day (in the evening). naltrexone 2mg qhs. omega-3 polyunsaturated fatty acids (Fish Oil) 2400mg daily. pantoprazole (Protonix 40 mg oral delayed release tablet) 1 tab(s) Oral (given by mouth) 2 times a day (scheduled). QUEtiapine (Seroquel XR 400 mg oral tablet, extended release) 1 tab(s) Oral (given by mouth) At bedtime. senna (senna 17.2 mg oral tablet) 1 tab(s) Oral (given by mouth) once a day (at bedtime) as needed for constipation. valsartan (valsartan 80 mg oral tablet) 1 tab(s) Oral (given by mouth) every day. venlafaxine (Effexor XR) 50mg 1 tab in morning and 1 tab at noon. warfarin (Coumadin) 5 Milligram every day. zolpidem (Ambien 10 mg oral tablet) 1 tab(s) Oral (given by mouth) once a day (at bedtime) as needed as needed for insomnia. Medication List: Medications to Continue That Have Not Changed Other Medications acetaminophen-butalbital (acetaminophen-butalbital 300 mg-50 mg oral capsule) 1 cap(s) Oral; as needed as needed for headache. aspirin (Aspirin 81 Chewtab) 1 tab(s) Oral (given by mouth) every day. atorvastatin (Lipitor) 80 Milligram Oral (given by mouth) At bedtime. baclofen (baclofen 10 mg oral tablet) 1 tab(s) Oral (given by mouth) 4 times a day. biotin (biotin 1000 mcg oral tablet) 2tab(s) Oral Daily and 1 tab at night. buPROPion (buPROPion 300 mg/24 hours (XL) oral tablet, extended release) 1 tab(s) Oral (given by mouth) every day. cholecalciferol (Vitamin D3 125 mcg (5000 intl units) oral tablet, disintegrating) 1 tab(s) Oral (given by mouth) every day. cyanocobalamin (Vitamin B12) 1 tab(s) Oral (given by mouth) every day. famotidine (famotidine 40 mg oral tablet) 1 tab(s) Oral (given by mouth) every day. ferrous sulfate (ferrous sulfate 325 mg Tab) 325 Milligram Oral (given by mouth) 2 times a day (scheduled). folic acid (folic acid 1 mg oral tablet) 1 tab(s) Oral (given by mouth) every day. gabapentin (Neurontin 300 mg oral capsule) 4 times a day. galcanezumab (Emgality Prefilled Pen 120 mg/mL subcutaneous solution) levothyroxine (Synthroid 50 mcg (0.05 mg) oral tablet) take 1.5 tab daily. loratadine-pseudoephedrine (Claritin-D 12 Hour) 1 tab(s) Oral (given by mouth) every day. metoclopramide (Reglan 10 mg oral tablet) 1 tab(s) Oral TID before meals. montelukast (Singulair 10 mg oral tablet) 1 tab(s) Oral (given by mouth) once a day (in the evening). naltrexone 2mg qhs. omega-3 polyunsaturated fatty acids (Fish Oil) 2400mg daily. pantoprazole (Protonix 40 mg oral delayed release tablet) 1 tab(s) Oral (given by mouth) 2 times a day (scheduled). QUEtiapine (Seroquel XR 400 mg oral tablet, extended release) 1 tab(s) Oral (given by mouth) At bedtime. (more content not included)... [facility] 12-23-2023 Note [id number] The history of present illness has been reviewed. There are no changes document. [Electronically Signed on: 12/24/2023 07:17 EDT] LINA SCHWAB MD [Verified on: 12/24/2023 07:17 EDT] LINA SCHWAB MD [Transcribed on: 12/23/2023 14:39 EDT] [facility] 12-17-2023 History of Present illness Narrative 15 minute [id number] follow-up anticoagulation appointment. INR performed in office per protocol. INR 1.6 (goal range: 2.0-3.0). Patient reports: Taking warfarin dosing as documented. Missed or extra doses of warfarin: No Changes to medications: No *Pt reports potential steroid use in the future but not currently Changes to lifestyle (diet / alcohol / smoking / activity): No Recent emergency department visit / hospitalization / health changes / new contraindication to current anticoagulant: No Signs/symptoms of bruising/bleeding or clotting or any intolerable adverse events: No Upcoming procedures: YES Burning nerve endings on 12.24.23 Anticoagulant prescription needed: No Seen referring provider in the last year Duration of therapy reviewed Assessment: INR is sub-therapeutic range today on current warfarin regimen, for no identifiable reason. We are boosting 1x today, then need to see pt on 12/22 for a pre-procedure INR. Pt reports no hold is recommended, but INR on 12.23.23 needs to be <3.0 before the 12.24.23 procedure Plan: Patient instructed to boost 1x to 7.5mg today, then continue warfarin 2.5 mg Mon and 5 mg AOD. See pt on 12/22 for pre-procedure INR check. Patient verbalizes understanding of anticoagulant dosing instructions and information discussed. Dosing regimen, counseling, and follow-up appointment were provided to the patient. Patient reminded to call with questions or any medication changes. Patient instructed to seek medical attention if any major bleeding/bleeding that persists or worsens. Hossein Ingram RPH 12/17/23 0928 documented in this encounter [facility] 12-09-2023 History of Present illness Narrative IM PROGRESS NOTE Patient - Noemi Brand Age - 63 y.o. - 1960 ASSESSMENT & PLAN 1. Essential hypertension -home reading log was reviewed and looks excellent -no change to current regimen of valsartan 80 mg daily - Comprehensive metabolic panel; Future - TSH with Reflex; Future 2. B12 deficiency -currently on cyanocobalamin 1000 mcg daily -repeat serum levels to assess efficacy of current treatment - Vitamin B12; Future 3. Mild persistent asthma without complication -has had no flare-ups or even had to use her rescue inhaler in well over 6 months -continue Advair 230-21 MDI b.i.d., and albuterol rescue inhaler as needed 4. Iron deficiency anemia, unspecified iron deficiency anemia type -currently on ferrous sulfate 325 mg b.i.d. -repeat lab levels to assess efficacy of treatment - CBC auto differential; Future Subjective CARDIOVASCULAR FOLLOW-UP This is a follow up of a pre-existing problem. Blood pressures are being checked outside the office. Frequency: weekly Readings have been normal, with occasional fluctuations . BP readings outside the office range from 120 - 129 mmHg systolic and 60 - 69 mmHg diastolic. The ASCVD Risk score (Jorge DURAN, et al., 2019) failed to calculate for the following reasons: The patient has a prior AR or stroke diagnosis Patient reports following dosing instructions. No hypotension or lightheadedness. Physical activity: The patient does not participate in regular exercise at present. Dietary efforts show fairly healthy diet with limited sugars and fats. CV symptoms review was negative for rapid or irregular heart rate, palpitations, syncope A review of systems was negative She does need refills on B12. She did have changes to her medications for migraine treatment. Exam BP 126/68 (BP Site: Left Arm, BP Postition: Sitting) Pulse 81 Temp 37.2 C (98.9 F) (Oral) Resp 20 Ht 170.2 cm (5' 7 ) Wt 96.6 kg (212 lb 14.4 oz) SpO2 96% BMI 33.34 kg/m Physical Exam Vitals reviewed. Constitutional: General: She is not in acute distress. Appearance: She is obese. She is not toxic-appearing. HENT: Head: Normocephalic. Right Ear: External ear normal. Left Ear: External ear normal. Nose: Nose normal. Comments: Over near ease with crusting and dry mucosa. Scant bleeding noted on the left. Mouth/Throat: Mouth: Mucous membranes are moist. Eyes: General: No scleral icterus. Conjunctiva/sclera: Conjunctivae normal. Comments: Wandering right eye Neck: Vascular: No carotid bruit. Comments: Decreased range of motion all planes Cardiovascular: Rate and Rhythm: Normal rate and regular rhythm. Pulses: Normal pulses. Heart sounds: No murmur heard. Pulmonary: Effort: Pulmonary effort is normal. Breath sounds: No wheezing or rales. Abdominal: Palpations: Abdomen is soft. Musculoskeletal: Right lower leg: No edema. Left lower leg: No edema. Lymphadenopathy: Cervical: No cervical adenopathy. Skin: General: Skin is warm and dry. Coloration: Skin is not jaundiced. Findings: No bruising. Neurological: General: No focal deficit present. Mental Status: She is alert and oriented to person, place, and time. Motor: No weakness. Coordination: Coordination normal. Psychiatric: Mood and Affect: Mood normal. Behavior: Behavior normal. Meds Current Outpatient Medications: albuterol (PROVENTIL HFA;VENTOLIN HFA) 90 mcg/actuation inhaler, Inhale 2 puffs every 6 (six) hours as needed for wheezing., Disp: 18 g, Rfl: 11 aspirin 81 mg chewable tablet, Chew 1 tablet (81 mg total) and swallow., Disp: , Rfl: atorvastatin (LIPITOR) 80 mg tablet, TAKE 1 TABLET IN THE MORNING, Disp: 90 tablet, Rfl: 0 baclofen (LIORESAL) 10 mg tablet, TAKE 1 TABLET FOUR TIMES A DAY, Disp: 360 tablet, Rfl: 3 buPROPion XL (WELLBUTRIN XL) 300 mg 24 hr tablet, bupropion HCl XL 300 mg 24 hr tablet, extended release, Disp: , Rfl: busPIRone (BUSPAR) 10 mg tablet, Take 1 tablet (10 mg total) by mouth., Disp: , Rfl: cholecalciferol, vitamin D3, 5,000 units tablet, 1 tablet (5,000 Units total)., Disp: , Rfl: cyanocobalamin 1000 MCG tablet, take 1 tablet by mouth every morning, Disp: 90 tablet, Rfl: 1 diclofenac sodium (VOLTAREN) 1 % gel, Apply 2 g topically in the morning and 2 g at noon and 2 g in the evening and 2 g before bedtime., Disp: 100 g, Rfl: 2 doxycycline (VIBRAMYCIN) 100 mg capsule, take 1 capsule by mouth once daily as directed, Disp: , Rfl: famotidine (PEPCID) 40 mg tablet, TAKE 1 TABLET IN THE MORNING, Disp: 90 tablet, Rfl: 1 FeroSuL 325 mg (65 mg iron) tablet, take 1 tablet by mouth every morning and 1 tablet at bedtime, Disp: 180 tablet, Rfl: 1 fluticasone propion-salmeteroL (ADVAIR HFA) 230-21 mcg/actuation inhaler, USE 2 INHALATIONS TWICE A DAY, Disp: 36 g, Rfl: 0 folic acid (FOLVITE) 1 mg tablet, TAKE 1 TABLET DAILY, Disp: 90 tablet, Rfl: 3 gabapentin (NEURONTIN) 300 mg capsule, 1 capsule (300 mg total)., Disp: , Rfl: galcanezumab-gnlm (EMGALITY PEN) 120 mg/mL pen injector, Emgality Pen 120 mg/mL subcutaneous pen injector, Disp: , Rfl: levothyroxine (SYNTHROID, LEVOTHROID) 50 MCG tablet, take 1 tablet daily, Disp: 90 tablet, Rfl: 1 linaCLOtide (LINZESS) 145 mcg capsule, Take 30 mg by mouth as needed., Disp: , Rfl: metoclopramide (REGLAN) 10 mg tablet, TAKE 1 TABLET THREE TIMES A DAY, Disp: 270 tablet, Rfl: 0 montelukast (SINGULAIR) 10 mg tablet, TAKE 1 TABLET DAILY, Disp: 90 tablet, Rfl: 3 naltrexone (REVIA) 50 mg tablet, Take 1.5 mg by mouth in the morning., Disp: , Rfl: nystatin (MYCOSTATIN) powder, Apply 1 Application topically 2 (two) times a day as needed (Rash or itching)., Disp: 30 g, Rfl: 1 omega 5-dvw-ils-fish oil (Fish OiL) 100-160-1,000 mg capsule, Take 1,200 mg by mouth., Disp: , Rfl: oxyCODONE-acetaminophen (PERCOCET) 5-325 mg per tablet, Take 1 tablet by mouth 2 (two) times a day as needed., Disp: , Rfl: pantoprazole (PROTONIX) 40 mg EC tablet, TAKE 1 TABLET IN THE MORNING AND AT BEDTIME, Disp: 180 tablet, Rfl: 0 QUEtiapine (SEROquel) 400 mg tablet, Take 1 tablet (400 mg total) by mouth nightly., Disp: , Rfl: QUEtiapine (SEROquel) 50 mg tablet, , Disp: , Rfl: valsartan (DIOVAN) 80 mg tablet, TAKE 1 TABLET IN THE MORNING, Disp: 90 tablet, Rfl: 1 warfarin (COUMADIN) 5 mg tablet, TAKE 1 TABLET IN THE EVENING, Disp: 90 tablet, Rfl: 1 zolpidem (AMBIEN) 10 mg tablet, , Disp: , Rfl: Lab Results Follow Up Anticoagulation on 11/19/2023 Component Date Value Ref Range Status INR 11/19/2023 2.0 (A) 0.8 - 1.2 Final Other Testing No results found. Alexander Chen DO., FACOI [facility] Office: [phone] documented in this encounter [facility] 11-22-2023 Note [id number] [facility] 11-19-2023 Note [facility] SURGERY Clinical Discharge Summary PERSON INFORMATION Name NOEMI BRAND Age 63 Years 1960 Sex FEMALE Language Finnish PCP Provider, None Marital Status Unknown Med Service Pain Management Surgery Acct# Arrival 11/19/2023 11:56:40 Visit Reason THORACIC PAIN Acuity LOS 002 02:30 Address: [address] [place] [address] Comment: PROVIDER INFORMATION VITALS INFORMATION Vital Sign Triage Latest Temp Oral Temp Temporal Temp Intravascular Temp Axillary Temp Rectal 02 Sat Respiratory Rate Peripheral Pulse Rate Apical Heart Rate Blood Pressure / / Comment: MEDICAL INFORMATION Allergy Info: Trintellix; Latuda; Zoloft; predniSONE; amoxicillin; lithium; erythromycin Prescriptions Given: acetaminophen-butalbital (acetaminophen-butalbital 300 mg-50 mg oral capsule) 1 cap(s) Oral; as needed as needed for headache. aspirin (Aspirin 81 Chewtab) atorvastatin (Lipitor) baclofen (baclofen 10 mg oral tablet) 1 tab(s) Oral (given by mouth) once a day (at bedtime). biotin (biotin 1000 mcg oral tablet) 2tab(s) Oral Daily and 1 tab at night. buPROPion (buPROPion 300 mg/24 hours (XL) oral tablet, extended release) 1 tab(s) Oral (given by mouth) every day. cholecalciferol (Vitamin D3 125 mcg (5000 intl units) oral tablet, disintegrating) cyanocobalamin (Vitamin B12) famotidine (famotidine 40 mg oral tablet) every day. ferrous sulfate (ferrous sulfate 325 mg Tab) 325 Milligram Oral (given by mouth) 2 times a day (scheduled). folic acid (folic acid 1 mg oral tablet) 1 tab(s) Oral (given by mouth) every day. gabapentin (Neurontin 300 mg oral capsule) 4 times a day. galcanezumab (Emgality Prefilled Pen 120 mg/mL subcutaneous solution) levothyroxine (Synthroid 50 mcg (0.05 mg) oral tablet) take 1.5 tab daily. linaclotide (Linzess) loratadine-pseudoephedrine (Claritin-D 12 Hour) metoclopramide (Reglan 10 mg oral tablet) 1 tab(s) Oral TID before meals. montelukast (Singulair 10 mg oral tablet) 1 tab(s) Oral (given by mouth) once a day (in the evening). naltrexone 2mg qhs. nystatin topical (Nyamyc 100,000 units/g topical powder) omega-3 polyunsaturated fatty acids (Fish Oil) 2400mg daily. pantoprazole (Protonix 40 mg oral delayed release tablet) 1 tab(s) Oral (given by mouth) 2 times a day (scheduled). QUEtiapine (Seroquel XR 400 mg oral tablet, extended release) 1 tab(s) Oral (given by mouth) every day. senna (senna 17.2 mg oral tablet) 1 tab(s) Oral (given by mouth) once a day (at bedtime) as needed for constipation. valsartan (valsartan 80 mg oral tablet) venlafaxine (Effexor XR) 50mg 1 tab in morning and 1 tab at noon. warfarin (Coumadin) 5 Milligram every day. zolpidem (Ambien 10 mg oral tablet) 1 tab(s) Oral (given by mouth) once a day (at bedtime) as needed as needed for insomnia. Medication List: Medications to Continue That Have Not Changed Other Medications acetaminophen-butalbital (acetaminophen-butalbital 300 mg-50 mg oral capsule) 1 cap(s) Oral; as needed as needed for headache. aspirin (Aspirin 81 Chewtab) atorvastatin (Lipitor) baclofen (baclofen 10 mg oral tablet) 1 tab(s) Oral (given by mouth) once a day (at bedtime). biotin (biotin 1000 mcg oral tablet) 2tab(s) Oral Daily and 1 tab at night. buPROPion (buPROPion 300 mg/24 hours (XL) oral tablet, extended release) 1 tab(s) Oral (given by mouth) every day. cholecalciferol (Vitamin D3 125 mcg (5000 intl units) oral tablet, disintegrating) cyanocobalamin (Vitamin B12) famotidine (famotidine 40 mg oral tablet) every day. ferrous sulfate (ferrous sulfate 325 mg Tab) 325 Milligram Oral (given by mouth) 2 times a day (scheduled). folic acid (folic acid 1 mg oral tablet) 1 tab(s) Oral (given by mouth) every day. gabapentin (Neurontin 300 mg oral capsule) 4 times a day. galcanezumab (Emgality Prefilled Pen 120 mg/mL subcutaneous solution) levothyroxine (Synthroid 50 mcg (0.05 mg) oral tablet) take 1.5 tab daily. linaclotide (Linzess) loratadine-pseudoephedrine (Claritin-D 12 Hour) metoclopramide (Reglan 10 mg oral tablet) 1 tab(s) Oral TID before meals. montelukast (Singulair 10 mg oral tablet) 1 tab(s) Oral (given by mouth) once a day (in the evening). naltrexone 2mg qhs. nystatin topical (Nyamyc 100,000 units/g topical powder) omega-3 polyunsaturated fatty acids (Fish Oil) 2400mg daily. pantoprazole (Protonix 40 mg oral delayed release tablet) 1 tab(s) Oral (given by mouth) 2 times a day (scheduled). QUEtiapine (Seroquel XR 400 mg oral tablet, extended release) 1 tab(s) Oral (given by mouth) every day. senna (senna 17.2 mg oral tablet) 1 tab(s) Oral (given by mouth) once a day (at bedtime) as needed for constipation. valsartan (valsartan 80 mg oral tablet) venlafaxine (Effexor XR) 50mg 1 tab in morning and 1 tab at noon. warfarin (Coumadin) 5 Milligram every day. zolpidem (Ambien 10 mg oral tablet) 1 tab(s) Oral (given by mouth) once a day (at bedti (more content not included)... [facility] 11-19-2023 History of Present illness Narrative 15 minute hrdg-rn-ynep follow-up anticoagulation appointment. INR performed in office per protocol. INR 2.0 (goal range: 2.0-3.0). Patient reports: Taking warfarin dosing as documented. Missed or extra doses of warfarin: No Changes to medications: No Changes to lifestyle (diet / alcohol / smoking / activity): No Recent emergency department visit / hospitalization / health changes / new contraindication to current anticoagulant: No Signs/symptoms of bruising/bleeding or clotting or any intolerable adverse events: No Upcoming procedures: YES Pain procedure today Anticoagulant prescription needed: No Seen referring provider in the last year Duration of therapy reviewed Assessment: INR is remaining stable in therapeutic range on current warfarin regimen. Plan: Patient instructed to continue warfarin 2.5 mg Mon and 5 mg AOD. Check INR in 4 week(s). Patient verbalizes understanding of anticoagulant dosing instructions and information discussed. Dosing regimen, counseling, and follow-up appointment were provided to the patient. Patient reminded to call with questions or any medication changes. Patient instructed to seek medical attention if any major bleeding/bleeding that persists or worsens. Luz Marina De Santiago RPH 11/19/23 0915 documented in this encounter [facility] 11-18-2023 Note [id number] The history of present illness has been reviewed. There are no changes document. [Electronically Signed on: 11/19/2023 12:43 EST] LINA SCHWAB MD [Verified on: 11/19/2023 12:43 EST] LINA SCHWAB MD [Transcribed on: 11/18/2023 13:01 EST] [facility] 11-05-2023 History of Present illness Narrative 15 minute dqci-je-rdiy follow-up anticoagulation appointment. INR performed in office per protocol. INR 1.9 (goal range: 2.0-3.0). Patient reports: Taking warfarin dosing as documented. Missed or extra doses of warfarin: No Changes to medications: No Changes to lifestyle (diet / alcohol / smoking / activity): YES Slight increase coleslaw Recent emergency department visit / hospitalization / health changes / new contraindication to current anticoagulant: No Signs/symptoms of bruising/bleeding or clotting or any intolerable adverse events: YES Nose bleed few weeks ago that was hard to stop; nothing since Upcoming procedures: No Anticoagulant prescription needed: No Seen referring provider in the last year Duration of therapy reviewed Assessment: INR is slightly low. Patient has been running 1.9-2.3 and would like to increase greens intake slightly, therefore we will increase weekly dose by 8%. Plan: Patient instructed to increase to warfarin 2.5 mg Mon and 5 mg AOD. Check INR in 3 week(s). Patient verbalizes understanding of anticoagulant dosing instructions and information discussed. Dosing regimen, counseling, and follow-up appointment were provided to the patient. Patient reminded to call with questions or any medication changes. Patient instructed to seek medical attention if any major bleeding/bleeding that persists or worsens. Luz Marina De Santiago RPH 11/05/23 0938 [facility] Note PROCEDURE: Left T10- 11 transforaminal epidural steroid injection under fluoroscopic guidance. [...] on his/her behalf by a trained medical transport specialist. The creation of this document is based on the provider?s statements to the medical transport specialist. Electronically signed by Lina Schwab MD 10/06/23 07:58 EST Electronically signed by Krupa Toscano 10/06/2023 07:[address] [facility] 10-06-2023 Note History of Present I llness CHIEF [...] includes the presence of the medical comorbidity, T10-11. Untreated and unmonitored, there would be expectant adverse cardiac and potentially respiratory events precipitating adverse physical reaction. The use of monitored anesthesia care for the purpose of providing monitored cardiorespiratory response is appropriate to suzanne the potential symptomatology of precipitated by untreated and unmonitored medical comorbidity. Physical Exam Vitals & Measurements T: 37.2 ?C (Oral) HR: 72 (Peripheral) RR: 16 BP: 110/70 SpO2: 94% HT: 166 cm WT: 97.5 kg Additional Vitals No qualifying data available. This document serves as a record of the services and decisions personally performed and made by the attending provider. It was created on his/her behalf by a trained medical transport specialist. The creation of this document is based on the provider?s statements to the medical transport specialist. Problem List/Past Medical History Ongoing Anemia Angina [...] No qualifying data Procedure/Surgical History cataract surgery Comments: left eye Hernia repair (1960) (09/1966) back surgery (09/01/1995) LT knee surgery (08/1998) LT knee surgery (01/2006) Lithotripsy, extracorporeal shock wave (01/2006) uterine ablation (2008) Neck surgery (06/2009) IVC filter (12/2014) Thoracic Radiofrequency Ablation (Left) (08/11/2016) Comments: auto-populated from documented surgical case Hip Injection (Left) (08/13/2016) Comments: auto-populated from documented surgical case Thoracic Radiofrequency Ablation (Right) (08/27/2016) Comments: auto-populated from documented surgical case Cervical/Thoracic Transforaminal Epidural Steroid Injection (Bilateral) (11/24/2016) Comments: auto-populated from documented surgical case Cervical/Thoracic Dorsal Medial Branch Block (Bilateral) (12/15/2016) Comments: auto-populated from documented surgical case Cervical/Thoracic Dorsal Medial Branch Block (Bilateral) (01/12/2017) Comments: auto-populated from documented surgical case Cervical Radiofrequency Ablation (Right) (02/09/2017) Comments: auto-populated from documented surgical case Cervical Radiofrequency Ablation (Left) (02/23/2017) Comments: auto-populated from documented surgical case Thoracic Radiofrequency Ablation (Left) (05/13/2017) Comments: auto-populated from documented surgical case Thoracic Radiofrequency Ablation (Right) (05/27/2017) Comments: auto-populated from documented surgical case Cervical/Thoracic Transforaminal Epidural Steroid Injection (Bilateral) (09/03/2017) Comments: auto-populated from documented surgical case Thoracic Radiofrequency Ablation (Left) (01/20/2018) Comments: auto-populated from documented surgical case Thoracic Radiofrequency Ablation (Right) (02/03/2018) Comments: auto-populated from documented surgica (more content not included)... [facility] 10-05-2023 History of Present illness Narrative 15 minute iceu-bt-iyfl follow-up anticoagulation appointment. INR performed in office per protocol. INR 2.0 (goal range: 2.0-3.0). Patient reports: Taking warfarin dosing as documented. Missed or extra doses of warfarin: No Changes to medications: YES Completed nitrofurantoin Changes to lifestyle (diet / alcohol / smoking / activity): No Recent emergency department visit / hospitalization / health changes / new contraindication to current anticoagulant: No Signs/symptoms of bruising/bleeding or clotting or any intolerable adverse events: No Upcoming procedures: YES Pain procedure 10/06 Anticoagulant prescription needed: No Seen referring provider in the last year Duration of therapy reviewed Assessment: INR is remaining stable in therapeutic range on current warfarin regimen. Plan: Patient instructed to continue warfarin 2.5 mg Mon/Fri and 5 mg AOD. Check INR in 4 week(s). Patient verbalizes understanding of anticoagulant dosing instructions and information discussed. Dosing regimen, counseling, and follow-up appointment were provided to the patient. Patient reminded to call with questions or any medication changes. Patient instructed to seek medical attention if any major bleeding/bleeding that persists or worsens. Luz Marina De Santiago RPH 10/05/23 3456 documented in this encounter [facility] 09-24-2023 History of Present illness Narrative 15 minute zrab-mg-llsi follow-up anticoagulation appointment. INR performed in office per protocol. INR 1.9 (goal range: 2.0-3.0). Patient reports: Taking warfarin dosing as documented. Missed or extra doses of warfarin: No Changes to medications: No Changes to lifestyle (diet / alcohol / smoking / activity): No Recent emergency department visit / hospitalization / health changes / new contraindication to current anticoagulant: No Signs/symptoms of bruising/bleeding or clotting or any intolerable adverse events: No Upcoming procedures: Yes, Pt has procedure on 10.05.23 Anticoagulant prescription needed: No Seen referring provider in the last year Duration of therapy reviewed Assessment: INR subtherapeutic at 1.9, but has been at goal consistently otherwise - so no dose change today. Pt has procedure on 10.06.23 with goal INR <3.3 Plan: Patient instructed to continue warfarin 2.5mg Wed, 5mg all other days. Check INR in 10 day(s), pt typically 5 weeks f/u. Patient verbalizes understanding of anticoagulant dosing instructions and information discussed. Dosing regimen, counseling, and follow-up appointment were provided to the patient. Patient reminded to call with questions or any medication changes. Patient instructed to seek medical attention if any major bleeding/bleeding that persists or worsens. Hossein Ingram RPH 09/24/23 0943 documented in this encounter [facility] 08-19-2023 Note PROCEDURE: Bilateral T9-10 transforaminal epidural [...] on his/her behalf by a trained medical transport specialist. The creation of this document is based on the provider?s statements to the medical transport specialist. Electronically signed by Lina Schwab MD 08/19/23 11:53 EST Electronically signed by Krupa Toscano 08/19/2023 11:[address] [facility] 08-19-2023 Note History of Present I llness [...] on his/her behalf by a trained medical transport specialist. The creation of this document is based on the provider?s statements to the medical transport specialist. Problem List/Past Medical History Ongoing Anemia Angina [...] Cervical/Thoracic Transforaminal Epidural (more content not included)... [facility] 07-05-2023 Note PROCEDURE: Radiofreq uency ablation of [...] on his/her behalf by a trained medical transport specialist. The creation of this document is based on the provider?s statements to the medical transport specialist. Electronically signed by Lina Schwab MD 07/05/23 12:08 EDT Electronically signed by Makeda Richard 07/05/2023 11:51 EDT Electronically signed by Makeda Richard 07/05/2023 12:[address] [facility] 07-05-2023 Note History of Present I llness [...] on his/her behalf by a trained medical transport specialist. The creation of this document is based on the provider?s statements to the medical transport specialist. Problem List/Past Medical History Ongoing Anemia Angina [...] (Bilateral) (02/29/2020) Cervical/Thoracic (more content not included)... [facility] 08-25-2022 Hospital Discharge instructions Patient Education 08/25/2022 13:32:50 Kidney Stones, Xsed-vi-Ynox Kidney Stones Kidney stones are rock-like masses [...] Follow these instructions at home: Medicines Take jeoh-xxs-ioottnb and prescription medicines only as told by [...] 02/15/2009 Document Revised: 01/16/2020 Document Reviewed: 01/16/2020 [employer] Patient Education 2020 [employer]. Follow Up Care 08/12/2021 11:07:07 With:DIANA GARRETT PA-C, URL Address: When:1 year [facility] Evaluation + Plan note Future Appointments Appointment Date:08/25/2023 01:00:00 PM Scheduled Provider:DIANA GARRETT PA-C Location:[facility] Appointment Type:URO Office Visit [facility] Evaluation + Plan note Future Appointments Appointment Date:08/29/2024 10:00:00 AM Scheduled Provider:DIANA GARRETT PA-C Location:[facility] Appointment Type:URO Office Visit Diagnostic Tests PendingUrine Culture 09/14/23 [facility] Evaluation + Plan note Future Appointments Appointment Date:08/29/2024 10:00:00 AM Scheduled Provider:DIANA GARRETT PA-C Location:[facility] Appointment Type:URO Office Visit [facility] Evaluation + Plan note Future Appointments Appointment Date:08/29/2024 10:00:00 AM Scheduled Provider:DIANA GARRETT PA-C [facility] Type:[facility]O Office Visit Diagnostic Tests PendingUrine Culture 09/24/23 [facility] Evaluation + Plan note Future Appointments Appointment Date:08/29/2024 10:00:00 AM Scheduled Provider:DIANA GARRETT PA-C [facility] Type:[facility]O Office Visit Diagnostic Tests PendingCalculi Analysis Urinary 10/20/23 [facility] Evaluation note No assessment inform ation available [facility] Work Phone: Evaluation note Diagnosis prison (current) use of 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- Primary Long-term (current) use of 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 [facility] Diagnosis Gastroesophageal reflux disease, unspecified whether esophagitis present [facility] 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- Primary Long-term (current) use of 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 [facility]* Diagnosis Hypothyroidism, unspecified type [facility] Diagnosis Essential hypertension Unspecified essential hypertension [facility] Diagnosis Essential hypertension- Primary Unspecified essential hypertension B12 deficiency Mild persistent asthma without complication Iron deficiency anemia, unspecified iron deficiency anemia type [facility]* Diagnosis Gastroesophageal reflux disease, unspecified whether esophagitis present [facility] 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- Primary Long-term (current) use of 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 [facility]* Diagnosis Iron deficiency anemia due to chronic blood loss Iron deficiency anemia secondary to blood loss (chronic) [facility]* 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- Primary Long-term (current) use of 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 [facility]* Diagnosis Migraine without aura and without status migrainosus, not intractable (CMS/HCC)- Primary [facility] N[facility] No data available for this section [facility] Hospital Discharge instructions No data available for this section [facility] filedocumented in this encounter [facility] filedocumented in this encounter [facility] filedocumented in this encounter [facility] on filedocumented in this encounter [facility]ructionsNot on filedocumented in this encounter [facility] on filedocumented in this encounter [facility] on filedocumented in this encounter [facility]ructions[facility] on filedocumented in this encounter [facility] No data available for this section [facility] Discharge Instructions * Discharge Instr - Other Orders - Char Veras RN - 11/11/2017 11:16 AM EST Pt given discharge instructions and scripts. Verbalizes understanding. All belongings packed up. Ptshowering prior to d/c home. * Ingrid Ruiz CNP - 11/09/2017 Home Care After Anterior Total [...] six week follow up appointment with Dr. Elizabeth should already be scheduled. 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 ACP-Advance Directive 09/29/2016 1:53 PM Latest Code Status on File Code Status Date Activated Date Inactivated Comments Full Code 09/27/2016 1:50 AM 09/28/2016 4:58 PM Advance Directive Response Recorded Date/ Time Advance Directives Yes July 13, 2017 2:48pm Latest Code Status on File Code Status Date Activated Date Inactivated Comments Full Code 10/06/2021 5:21 AM 10/23/2021 2:34 PM Advance Directive Response Recorded Date/ Time Advance Directives Yes July 13, 2017 1:48pm Date Activated Date Inactivated Comments 10/06/2021 5:21 AM 10/23/2021 2:34 PM Instructions * Patient Instructions - Rossana Reid DO - 10/21/2017 12:50 PM EST Formatting of this note may be different from the original. If your surgery date changes or you change your surgery date, please call us at [phone] Preoperative Medication Instructions In preparation for surgery please continue all of your current medications with the following changes: Noemi Brand Home Medication Instructions Prior to Surgery ZACK:[id number] Printed on:10/21/17 1250 Medication Information Take last [...] every morning TAKES 1 TABLET . NO cjfaqya-hwqqrwimkg-HPZ-caff (mapxnpoppp-altxgtc-afvmuwou-codeine) capsule Take 1 capsule by mouth continuous [...] medications that contain aspirin, such as Danielle Francisco, Pepto- Bismol, Anacin), antiinflammatory medications such as Advil, Motrin, Ibuprofen, Naproxen, Aleve, Danielle Francisco, Pepto-Bismol,Anacin, Diclofenac, Voltaren, Daypro, Etodolac, Ketoprofen, Piroxicam, Relafen, Nabumetone, etc. THESE SHOULD NOT BE USED WHEN TAKING COUMADIN (WARFARIN). Also discontinue Vitamin C, Vitamin E, [place]-3 Fatty Acid, Fish Oil or Lovaza, and [...] in this encounter Summary Purpose Family History Relationship Condition Age at Onset Recorded Date/T joelle father Congestive heart failure Unknown Not Specified Congestive heart failure Unknown sister Malignant neoplasm of lung Unknown brother Malignant neoplasm of prostate Unknown Relationship Condition Age at Onset Recorded Date/T joelle father Congestive heart failure Unknown Not Specified Congestive heart failure Unknown sister Malignant neoplasm of lung Unknown brother Malignant neoplasm of prostate Unknown daughter Family history of mental disorder Unknown father Hypertension Unknown Heart disease Unknown Unknown family member Family history of mental disorder Unknow n Not Specified Diabetes mellitus Unknown Hypertension Unknown sibling Diabetes mellitus Unknown Malignant neoplasm Unknown Chief Complaint and Reason for Visit Chief Complaint M05.0 M35.9 Z79.899 Chief Complaint m36.8/ m15.0 Z79.899 Chief Complaint M36.8 M15.0 Z79.899 Additional Source Comments Lina Elizabeth MD - 11/09/2017 6:56 AM Rossana Lunsford DO - 10/21/2017 1:02 PM Rossana Lunsford DO - 10/21/2017 1:02 PM EST H&P Notes (unrecognized sect ion and content) INTERVAL HISTORY AND PHYSICAL Patient Name: Noemi Brand Admit Date: [id number] MR #: [id number] : 1960 The H&P has been reviewed and the patient has been examined. I concur with the findings of the H&P. There are no significant changes. It is appropriate to proceed with the planned procedure. Lina Elizabeth MD 11/09/2017 6:56 AM Formatting of this note may be different from the original. Assessment and Plan 1. Pre-op exam Preoperative medical risk stratification indicates that the patient is at acceptable risk for elective/major surgery-11/09; LEFT TOTAL HIP ARTHROPLASTY ANTERIOR APPROACH [facility] Main OR pending laboratory. ECG 12 Lead [...] acceptable cardiac risk based on the 2014 [place] [employer]/[place] [employer] (ACC/AHA) guideline on Perioperative Cardiovascular [...] Therapy and Prevention of Thrombosis, 9th ed: [employer] Evidence- Based Clinical Practice Guidelines. Would recommend restarting patient's chronic warfarin p.m. prior to surgery, and beginning prophylactic dose for example Lovenox or Arixtra being postoperative day #1, continue until patient's INR therapeutic at 2.0 postoperatively. Chief Complaint Patient presents with Pre-operative Medical Risk Stratification History of Present Illness Noemi Brand is a 57 y.o. female who presents for preoperative medical risk stratification consult at the request of Lina Elizabeth MD prior to 11/09; LEFT TOTAL HIP ARTHROPLASTY ANTERIOR APPROACH [facility] Main OR . 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 Main OR pending laboratory. ECG 12 Lead [...] acceptable cardiac risk based on the 2014 [place] [employer]/[place] [employer] (ACC/AHA) guideline on Perioperative Cardiovascular [...] Therapy and Prevention of Thrombosis, 9th ed: [employer] Evidence- Based Clinical Practice Guidelines. Would recommend restarting patient's chronic warfarin p.m. prior to surgery, and beginning prophylactic dose for example Lovenox or Arixtra being postoperative day #1, continue until patient's INR therapeutic at 2.0 postoperatively. Chief Complaint Patient presents with Pre-operative Medical Risk Stratification History of Present Illness Noemi Brand is a 57 y.o. female who presents for preoperative medical risk stratification consult at the request of Lina Elizabeth MD prior to 11/09; LEFT TOTAL HIP ARTHROPLASTY ANTERIOR APPROACH [facility] Main OR . 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 Depression Fibromyalgia, primary GERD (gastroesophageal reflux disease) Headache MIGRAINES History of blood transfusion History of stress test 2012 Hyperlipidemia Hypothyroidism Nephrolithiasis Osteoarthritis of left hip Presence of vena cava filter Stroke ([facility]) 1994 Past Medical History Pertinent Negatives: Diagnosis Date Noted Bleeding disorder ([facility]) 09/17/2016 Blood transfusion reaction 09/17/2016 CHF (congestive heart failure) ([facility]) 10/21/2017 Complication of anesthesia 09/17/2016 Coronary artery disease 09/17/2016 Diabetes mellitus type I ([facility]) 09/17/2016 Diabetes mellitus, type 2 ([facility]) 09/11/2016 Hard to intubate 09/17/2016 Hypertension 09/17/2016 Malignant hyperthermia due to anesthesia 09/17/2016 No blood products 09/17/2016 PONV (postoperative nausea and vomiting) 10/21/2017 Rheumatoid arthritis ([facility]) 10/18/2017 Sleep apnea, obstructive 09/17/2016 Past Surgical [...] Units, Oral, Every morning, TAKES 1 TABLET iogbxpo-egeuibbdaa-DSB-caff (pazvesjcbr-zjdrwil-opmfersl-codeine) capsule Take 1 capsule by mouth continuous [...] Subcutaneous, Every 12 hours Allergies Allergen Reactions Manvel Other (See Comments) COMA Zoloft [Sertraline] Other [...] ST segment changes.in this encounter Cony Bernal, [employer] - 11/11/2017 12:21 PM Lucrecia Blanchard, PT - 11/09/2017 3:08 PM Ignacio Abdi, WATER TREATMENT PLANT OPERATOR - 11/09/2017 11:54 AM EST Consult Notes (unrecognized section and content) Associated Order(s): IP CONSULT TO UTILIZATION MANAGEMENT & CARE COORDINATION COMPLEX DISCHARGE Date: 11/11/2017 Time: 2:20 PM Patient Name: Noemi Brand Date of : 1960 Sex: Female Per [...] No Discharge Readiness Expected Discharge Date: 11/11/17 [facility] Disposition D/C Disposition: Home Formatting of this [...] to Stand: Min Stand Pivot Transfers: Min Curing Oven Tender: Walker Gait/Locomotion Gait Assistance: Contact guard Assistive Device: Walker Distance: 50 Feet Pattern: Step to, L Decreased stance time, R decreased step length, L decreased step length Home Living Type of Home: House Home Layout: One level, Stairs to enter without rails (2 JOO without rail- platform style steps) Bathroom Shower/Tub: Walk-in shower Bathroom Toilet: Standard Bathroom Equipment: Shower chair Bathroom Accessibility: Accessible via walker Home Equipment: Cane, Walker, Director Retail Brand Development (crutches) Additional Comments: did not use assistive device prior to admit Prior Level of Function Level of [place]: Independent with ADLs and functional transfers, Independent [...] hip Presence of vena cava filter Stroke ([facility]) 1994 Past Surgical History: Procedure Laterality Date ANTERIOR CERVICAL DISCECTOMY W/ FUSION ARTHROPLASTY TOTAL HIP ANTERIOR APPROACH Left 11/09/2017 Procedure: LEFT TOTAL HIP ARTHROPLASTY ANTERIOR APPROACH; Surgeon: Lina Elizabeth MD; Location: [facility] Main OR; Service: Orthopedic CATARACT EXTRACTION W/ [...] 80mg BID on Wednesday morning per Dr. Elizabeth. Patient to follow-up with PCP on Wednesday for Lovenox/Coumadin management. - Cr 1.29. Seen by Dr. Arguello ([facility]) this morning and patient to follow-up for repeat labs with PCP as well. Patient states understanding. - Mobilize, WBAT, Anterior Hip Precautions - Cont bowel regimen - Maintain dressing x 7 days post op then change Opsite dressing and maintain until follow-up appointment, may shower - PT following - Ortho stable, plan for discharge today - [facility] for medical management, appreciate care - f/u in the office in 2 weeks as scheduled after discharge - Questions answered. Patient and daughter updated at bedside. Patient seen and plan discussed with Dr. Elizabeth Disposition: home today Positive LAMONTE Screen Patient [...] CDI. Minimal Swelling. NVI. Moving the extremity. Villanueva and warm. Negative Saw's Sign. Cap refill less than 3 seconds. Psych: Mood and affect appropriate. Skin: No rashes; normal turgor. Intake/Output last 3 shifts: I/O last 3 completed shifts: In: 2771.2 [P.O.:2350; I.V.:221.2; IV Piggyback:200] Out: 3300 [Urine:3300] Results/Medications Reviewed 11/11/17 11:07 AM: Laboratory, Medications and Transcriptions NOEMI BRAND [id number] 1960 DATE 11/09/2017 OPERATIVE REPORT SURGEON LINA ELIZABETH MD SAW TAILER ROSANGELA DUMONT PA-C There were no qualified [...] DVT prophylaxis. SPECIAL CONSIDERATIONS Rosangela Dumont, Physician Supervisor Electronics Processing, should be billed as certified ophthalmic assistant since there were no qualified residents [...] sponge and needle counts were correct. LINA ELIZABETH MD D 11/09/2017 08:58 [id number] T 11/09/2017 09:55 TJE/MODL cc Dr. Alexander Helms : [id number] Formatting of this note may be different from the original. Brief Post Operative Note Patient Name: Noemi Brand : 1960 (57 y.o.) Date of Service: 11/09/2017 CSN: [id number] Procedure(s): LEFT TOTAL HIP ARTHROPLASTY ANTERIOR APPROACH Pre-Operative Diagnoses: * M16.12 Post-Operative Diagnoses: * same Surgeon(s) and Role: * Lina Elizabeth MD - Primary Anesthesiologist: Jn Cramer MD EARLY CHILDHOOD TEACHER ASSISTANT: Jan Hill CRNA Track Coach: Ashley Salinas RN Physician Supervisor Electronics Processing: Rosangela Dumont PA-C Scrub Person: Thuy House RN: Kasandra Guerra RN Operative findings: oa Intra and immediate post-operative complications: none Type of anesthesia used: Spinal Estimated blood loss: 400 mL Estimated urine output: 125 mL Specimen(s): * No specimens in log * Implant(s): Implant Name Type Inv. Item Serial No. Hull Molder Lot No. LRB No. Used Action LINER 32MM C FLAT HIGHCROSS MPACT - [id number] LINER 32MM C FLAT HIGHCROSS MPACT MEDACTA [id number] Left 1 Implanted SHELL 48MM 2HL ACET MPACT - [id number] SHELL 48MM 2HL ACET MPACT MEDACTA [id number] Left 1 Implanted STEM SZ2 STD FEM PROX COAT TI AMISTEM-H - [id number] STEM SZ2 STD FEM PROX COAT TI AMISTEM-H MEDACTA [id number] Left 1 Implanted HEAD 32MM +4 FEM BIOLOX DELTA MECTACER - [id number] HEAD 32MM +4 FEM BIOLOX DELTA MECTACER MEDACTA [id number] Left 1 Implanted Drain(s): Urethral Catheter Non-latex 16 Fr. (Active) Wound(s): Incision 11/09/17 Hip Left (Active) Lina Elizabeth MD 11/09/2017 8:55 AM in this encounter Ev Strickland RN - 10/21/2017 12:33 PM EST Nursing Notes (unrecognized section and content) Patient Instructions for [facility]: Prior to surgery: Please be sure to wear loose, comfortable clothing and non-skid shoes Bring your health insurance information and a photo ID, as well as your Living Will or Durable Power of Brine Room Laborer for Healthcare if it is available to you. Bring your cane/walker any applicable assistive device. If you currently use a CPAP, please bring this device with you on the day of surgery. Bring a list of your medications with the name of the medication, dose and how often you are taking it. Be sure to include herbal preparations and lrnp-mnd-dlzkzuv medications on this list. Do not eat [...] of lotions, perfumes or powders. All nail malay is to be removed from fingernails and [...] the day of your surgery/procedure. Parking at [facility] is free. Please park in the lot in front of the main lobby. Enter the Main Entrance where a Slip Sheeter Liaison at the information desk will greet [...] of your surgery preparation process here at [facility]. It will provide you with additional important [...] surgery call with arrival time; advised of yoly Fritz. in this encounter INFORMATION SOURCE (unrecogn ized section and content) DATE CREATED AUTHOR 03/01/2018 [facility] DATE CREATED AUTHOR AUTHOR'S ORGANIZ ATION 09/04/2018 [facility] DATE CREATED AUTHOR AUTHOR'S ORGANIZ ATION 12/11/2021 Elvira herman DATE CREATED AUTHOR AUTHOR'S ORGANIZ ATION 02/12/2022 [facility] DATE CREATED AUTHOR AUTHOR'S ORGANIZ ATION 08/13/2022 [facility] DATE CREATED AUTHOR AUTHOR'S ORGANIZ ATION 10/31/2023 [facility] DATE CREATED AUTHOR AUTHOR'S ORGANIZ ATION 03/10/2024 [facility] DATE CREATED AUTHOR AUTHOR'S ORGANIZ ATION 05/11/2024 [facility] DATE CREATED AUTHOR AUTHOR'S ORGANIZ ATION 05/28/2024 [facility] DATE CREATED AUTHOR AUTHOR'S ORGANIZ ATION 06/09/[address] [facility] DATE CREATED AUTHOR AUTHOR'S ORGANIZ ATION 06/17/2024 [facility] DATE CREATED AUTHOR AUTHOR'S ORGANIZ ATION 06/20/2024 [facility] Care Teams (unrecognized sec tion and content) Machine Packager Relationship Specialty Start Date End Date Alexander Chen PCP - General 09/26/16 Team Status: Active Member Role Status Dates Alexander Chen DO Primary Care Provider Active Team Status: Inactive Member Role Status Dates Alexander Chen DO Primary Care Provider Active Mati Mcmillan MD Attending Provider Active Machine Packager Relationship Specialty Start Date End Date Alexander Chen DO [address] [place] [address] PCP - General 02/23/13 Team Status: Inactive Member Role Status Dates Alexander Chen DO Primary Care Provider Active Sta rt: October 04, 2023 End: October 04, 2023 Contreras Mcmillan MD Attending Provider Active St art: October 04, 2023 End: October 04, 2023 Machine Packager Relationship Specialty Start Date End Date Alexander Chen DO [address] [place] [address] PCP - General 02/23/13 Machine Packager Relationship Specialty Start Date End Date Alexander Chen DO [address] [place] [address] PCP - General 02/23/13 Machine Packager Relationship Specialty Start Date End Date Alexander Chen DO [address] [place] [address] PCP - General 02/23/13 Machine Packager Relationship Specialty Start Date End Date Alexander Chen DO [address] [place] [address] PCP - General 02/23/13 Machine Packager Relationship Specialty Start Date End Date Alexander Chen DO [address] [place] [address] PCP - General 02/23/13 Machine Packager Relationship Specialty Start Date End Date Alexander Chen DO [address] [place] [address] PCP - General 02/23/13 Team Status: Inactive Member Role Status Dates Alexander Chen DO Primary Care Provider Active Sta rt: February 25, 2024 End: February 25, 2024 YARELIS Carroll Attending Provider Active Start: February 25, 2024 End: February 25, 2024 Machine Packager Relationship Specialty Start Date End Date Alexander Chen DO [address] [place] [address] PCP - General 02/23/13 Ashley Angeles [facility] Nurse - [employer] 03/03/24 Machine Packager Relationship Specialty Start Date End Date Alexander Chen DO [address] [place] [address] PCP - General 02/23/13 Ashley Angeles [facility] Nurse - [employer] 03/03/24 Machine Packager Relationship Specialty Start Date End Date Alexander Chen MD [address] [place] [address] PCP - General Internal Medicine 06/22/23 Machine Packager Relationship Specialty Start Date End Date Alexander Chen DO [address] [place] [address] PCP - General 02/23/13 Nava Sanches [facility] Nurse - [employer] 06/16/24 Goals (unrecognized section and content) Goals may be documented in a n alternate section Reason for Visit (unrecogniz ed section and content) Reason Comments Med Refill Reason Comments BP/ ANEMIA FOR RECORDS PERTAINING TO PATIENTS WHO ARE [...] BE BASED ON THE PRIMARY CLINICAL RECORDS. [facility]. provides no warranty or guarantee of the accuracy or completeness of information in this document.
[2024-07-04 03:07] LABS: Age Gdln ACOG Testing Note (.); HPV Aptima Positive (Negative); HPV Genotype 16 Negative (Negative); HPV Genotype 18,45 Negative (Negative); IGP, Aptima HPV, rfx 16/18,45 Note (.)
== END 2024-06-26 21:00 | disposition home or self-care (01) ==
LOC: LAB 20:59
PROVIDERS: PCP Internal Medicine; Visit Provider Obstetrics & Gynecology
DX: Z01.419 Encounter for gynecological examination (general) (routine) without abnormal findings (principal)
CPT/HCPCS: 87624; 87625; 88175

== ENCOUNTER 2024-08-18 07:16 | Outpatient (OUT) | payer MEDICARE, OTHER, SELFPAY ==
--- OUTSIDE RECORDS SUMMARY | 2024-08-18 07:19 | XMS_ITS | CCD ---
Author Organization [facility] ion Partnership [facility] Care Team Providers Care Director [employer] Name Role Phone Alexander Chen Unavailable Rossana Reid Unavailable ROSANGELA DUMONT Unavailable Unavailabl e NITHYAS, ALEXANDER JOSE Unavailable Unavailable LINA ELIZABETH Unavailable Unavailable LINA ELIZABETH Unavailable Unavailable [facility] Unavailable U navailable NITHYAS, ALEXANDER JOSE Unavailable Unavailable LINA ELIZABETH Unavailable Unavailable ROSSANA REID Unavailable Unavailable YUHAS ALEXANDER JOSE Unavailable Unavailable LINA ELIZABETH Unavailable Unavailable LINA ELIZABETH Unavailable Unavailable YUDONTAS, ALEXANDER NAJERAARD Unavailable Unavailable LINA ELIZABETH Unavailable Unavailable LINA ELIZABETH Unavailable Unavailable [facility] Unavailable U navailable YUHAS, ALEXANDER JOSE Unavailable Unavailable LINA ELIZABETH Unavailable Unavailable ROSSANA REID Unavailable Unavailable NITHYASALEXANDER JOSE Unavailable Unavailable Alexander Chen Primary Care Provider [phone] SHEREE VILLAR Referring Unavailable ALEXANDER CHEN Primary Care Unavailable DR ТАТЬЯНА JONES JR Admitting Unavailantoni JONES JR, DR ТАТЬЯНА Sorto Attending Unavailabl e APRIL, DR MUNOZ Primary Care Unavailable SOFIA, DR YESENIA Russell Consulting Unavailable KAREN MENJIVAR, DR ТАТЬЯНА Sorto Consulting Unavailantoni LATHAM, DR PAK Admitting Unavailable NOA, DR PAK Attending Unavailable APRIL, DR MUNOZ Primary Care Unavailable JENNER, DR LANEY Diaz Consulting Unavailable NOA, DR PAK Consulting Unavailable NAO, DR PAK Admitting Unavailable NOA, DR PAK Attending Unavailable APRIL, DR MUNOZ Primary Care Unavailable NOA, DR PAK Consulting Unavailable ALEXANDER CHEN Primary Care Physician [phone] Yuhas, DO Alexander Primary Care Provider [phone] MD Mati Mcmillan Attending Provider [phone] [facility], Alexander Noreen Primary Care Provider [phone] Yuhas, DO Alexander Primary Care Provider [phone] MD Contreras Mcmillan Attending Provider [phone] Yuhas, DO Alexander Primary Care Provider [phone] YARELIS Stanley Attending Provider April ESPAÑA, Alexander Sorto Primary Care Provider [phone] Zaheer ESPAÑA, Lina Ignacio Attending [facility], Alexander Garcia Primary Care Unavailab corrine Schwab MD, Lina Ignacio Attending [facility], Alexander Garcia Primary Care Unavailab le [place] ACCOUNTING MANAGER ASSISTANT CONTROLLER-PUBLICITY EXPERT, Jillian Hernandez Attending [facility], Alexander Garcia Primary Care Unavailab corrine Schwab MD, Lina Ignacio Attending [facility], Alexander Garcia Primary Care Unavailab le [facility], Alexander Garcia Primary Care Unavailab corrine Schwab MD, Lina Ignacio Attending [facility], Alexander Garcia Primary Care Unavailab le [place] ACCOUNTING MANAGER ASSISTANT CONTROLLER-PUBLICITY EXPERT, Jillian Hernandez Attending [facility], Alexander Garcia Primary Care Unavailab corrine Schwab MD, Lina Ignacio Attending Grecia Schwab MD, Lina Ignacio Attending [facility], Alexander Garcia Primary Care [facility]ab le [facility] Primary Care Unavailab le [place] ACCOUNTING MANAGER ASSISTANT CONTROLLER-PUBLICITY EXPERT, Jillian Hernandez Attending [facility] ACCOUNTING MANAGER ASSISTANT CONTROLLER-PUBLICITY EXPERT, Dorys Go Attending [facility], Alexander Garcia Primary Care Unavailab le [facility], Alexander Garcia Primary Care Unavailab le [place] ACCOUNTING MANAGER ASSISTANT CONTROLLER-PUBLICITY EXPERT, Jillian Hernandez Attending [facility], Alexander Garcia Primary Care Unavailab corrine Schwab MD, Lina Ignacio Attending [facility], Alexander Garcia Primary Care Unavailab le [place] ACCOUNTING MANAGER ASSISTANT CONTROLLER-PUBLICITY EXPERT, Jillian Hernandez Attending U ilia Chen DO, Alexander Jose Primary Care Unavailab le [place] ACCOUNTING MANAGER ASSISTANT CONTROLLER-PUBLICITY EXPERT, Jillian Hernandez Attending U ilia Mccormick ACCOUNTING MANAGER ASSISTANT CONTROLLER-PUBLICITY EXPERT, Droys Go Attending Imani ailmelo Chen DO, Alexander Najeraard Primary Care Unavailab corrine Mccormick ACCOUNTING MANAGER ASSISTANT CONTROLLER-PUBLICITY EXPERT, Dorys Go Attending Imani ailmelo Chen DO, Alexander Najeraard Primary Care Unavailab Lina Oliva MD Attending [facility] April , Alexander Jose Primary Care Unavailab le Provider, None Primary Care Unavailable [place], Jillian M Attending Unavailable [place], Jillian M Admitting Unavailable [place], Jillian M Admitting Unavailable [place], Jillian M Attending Unavailable Provider, None Primary Care Unavailable Provider, None Primary Care Unavailable [place], Jillian M Attending Unavailable [place], Jillian M Admitting Unavailable Provider, None Primary Care Unavailable [place], Jillian M Admitting Unavailable [place], Jillian M Attending Unavailable Provider, None Primary Care Unavailable [place], Jillian M Admitting Unavailable [place], Jillian M Attending Unavailable [place], Jillian M Admitting Unavailable [place], Jillian M Attending Unavailable Provider, None Primary [...] Attending Unavailable KINDL, LINA F Admitting Unavailable [place], Jillian M Admitting Unavailable Provider, None Primary Care Unavailable [place], Jillian M Attending Unavailable Provider, None Primary Care Unavailable KINDL, LINA F Admitting Unavailable KINDL, LINA F Attending Unavailable MAURO LEVIN Attending Unavailable MAURO LEVIN Attending Unavailable MAURO LEVIN Attending Unavailable MAURO LEVIN Attending Unavailable KOBI LATHAM Attending Unavailable ALEXANDER CHEN Attending Unavailable ALEXANDER CHEN Referring Unavailable ALEXANDER CHEN Primary Care Unavailable ALEXANDER CHEN Referring Unavailable ALEXANDER CHEN Primary Care Unavailable ALEXANDER CHEN Attending Unavailable YUHAS, ALEXANDER L Referring Unavailable YUHAS, ALEXANDER L Primary Care Unavailable YUHAS, ALEXANDER L Referring Unavailable YUHAS, ALEXANDER L Primary Care Unavailable YUHAS, ALEXANDER L Referring Unavailable YUHAS, ALEXANDER L Primary Care Unavailable GERRY, DIANA Miller Admitting Unavailable GERRY, DIANA E Attending Unavailable GERRY, DIANA E Attending Unavailable GERRY, DIANA E Attending Unavailable GERRY, DIANA E Attending Unavailable GERRY, DIANA E Attending Unavailable GERRY, DIANA E Attending Unavailable GERRY, DIANA E Attending Unavailable LueKasandra M. Admitting Unavailable LueKasandra M. Attending Unavailable Orzech, Leann X Admitting Unavailable Orzech, Leann X Attending Unavailable SERVICE, JOBST Referring Unavailable YUHAS, ALEXANDER [...] Unavailable YUHAS, ALEXANDER L Primary Care Unavailable ObermeyerCarlotta Admitting Unavailable Yuhas, Alexander Primary Care Unavailable Carlotta Stanley Attending Unavailable Alexander Chen Primary Care Unavailable Carlotta Stanley Attending Unavailable Carlotta Stanley Admitting Unavailable Alexander Chen Primary Care Unavailable Contreras Mcmillan Attending Unavailable Contreras Mcmillan Admitting Unavailable Allergies Allergy Classification Reported Allergen(s) Allergy Type Date of Onset Reaction(s) Facility Corticosteroids (1 source) predniSONE Drug Allergy 03-26-20 21 Swelling [facility] [place] (1 source) [place] Drug Allergy 03-26-20 21 pt states put me in a coma [facility] lubiprostone (1 source) lubiprostone Drug Allergy 03-26-20 21 VOMITING [facility] milnacipran (1 source) milnacipran Drug Allergy 03-26-20 21 Confusion [facility] NSAIDs (1 source) meloxicam Drug Allergy 02-06-20 20 blood in urine [facility] Penicillins (antibiotic) (1 source) Amoxicillin Drug Allergy 02-06-20 20 Hives [facility] Serotonin Reuptake Inhibitors (SSRIs) (1 source) Sertraline Drug Allergy 03-26-20 21 Chest Pain [facility] vortioxetine (1 source) vortioxetine Drug Allergy 02-06-20 20 Vomiting [facility] (20 sources) erythromycin; Translations: [ERYTHROMYCIN] Propensity to adverse reactions to drug 05-10-20 13 Other (See Comments), Unknown (qualifier value), Abnormal Behavior, [facility] Work Phone: (20 sources) lithium; Translations: [LITHIUM] Propensity to adverse reactions to drug 10-18-19 18 Other (See Comments), Unknown (qualifier value), [facility] Work Phone: (20 sources) predniSONE; Translations: [PREDNISONE] Propensity to adverse reactions to drug 09-26-19 17 Swelling, Unknown (qualifier value) [facility] Work Phone: (20 sources) sertraline; Translations: [SERTRALINE] Propensity to adverse reactions to drug 05-10-20 13 Other (See Comments), Unknown (qualifier value), [facility] Work Phone: (20 sources) Penicillins; Translations: [PENICILLINS] Propensity to adverse reactions to drug (disorder) 08-30-20 18 Hives [facility] (20 sources) vortioxetine; Translations: [VORTIOXETINE] Drug Allergy 08-12-20 18 Nausea And Vomiting [facility] (6 sources) milnacipran Drug Allergy 09-26-19 17 [facility] Work Phone: (5 sources) Amoxicillin; Translations: [amoxicillin] Drug Allergy 02-06-20 20 Hives [facility] (10 sources) Erythromycin; Translations: [erythromycin base] Drug Allergy 02-26-20 14 Gastrointestinal Upset [facility] (1 source) [place] Drug Allergy 07-09-20 17 [facility] (1 source) meloxicam Drug Allergy [facility] (6 sources) meloxicam; Translations: [MELOXICAM] Drug Allergy 02-16-20 blood in urine [facility] (2 sources) milnacipran; Translations: [Savella] Drug Allergy 02-26-20 14 [facility] (1 source) predniSONE Drug Allergy 02-26-20 14 [facility] (4 sources) Sertraline; Translations: [Zoloft] Drug Allergy [facility] (10 sources) vortioxetine; Translations: [vortioxetine] Drug Allergy Blood in urine (finding) [facility] (6 sources) Amoxicillin; Translations: [amoxicillin] Drug Allergy Weal (disorder) [facility] (20 sources) milnacipran; Translations: [milnacipran] Drug Allergy 02-06-20 Unknown (qualifier value), Other (See Comments) [facility] (20 sources) meloxicam Drug Allergy 02-16-20 19 [employer] Work Phone: (20 sources) sevelamer; Translations: [SEVELAMER] Drug Allergy 01-26-[address] [facility] (20 sources) [place] Analogues; Translations: [LITHIUM ANALOGUES] Propensity to adverse reactions to drug 01-26-20 17 Other (See Comments) [facility] (5 sources) lubiprostone Drug Allergy 03-26-20 [facility] (5 sources) lurasidone Drug Allergy 02-18-20 24 [facility] (5 sources) meloxicam Drug Allergy 02-06-20 [facility] (5 sources) milnacipran Drug Allergy 11-15-19 14 Hives [facility] (5 sources) Prednisone Allergy to substance 05-11-20 13 Swelling [facility] (5 sources) sevelamer Drug Allergy 10-23-19 [facility] (1 source) lurasidone; Translations: [Latuda] Drug Allergy [facility] (1 source) Amoxicillin Drug Allergy 02-06-20 [facility] (1 source) Erythromycin Drug Allergy 03-26-20 [facility] (1 source) [place] Drug Allergy 03-26-20 [facility] (1 source) lubiprostone Drug Allergy 03-26-20 [facility] (1 source) meloxicam Drug Allergy 02-06-20 [facility] (1 source) milnacipran Drug Allergy 03-26-20 [facility] (1 source) predniSONE Drug Allergy 03-26-20 [facility] (1 source) Sertraline Drug Allergy 03-26-20 [facility] Medications Current Medications Medication Drug Class(es) Dates Sig (Normalized) Sig (Original) acetaminophen 325 mg / butalbital 50 mg / caffeine 40 mg oral tablet (5 sources) Barbiturate, Central Nervous System Stimulant, Methylxanthine Start: [...] Nervous System Stimulant, Methylxanthine Start: 12-08-2019 Butalbital-Acetam [id number] Active 2 CAP PO As Directed February [...] pain TAKES 1 TABLET . 11/11/2017 Discontinued [id number] 200 actuat albuterol 0.09 mg/actuat metered dose [...] swallow. Active take 2 tablets by mo [facility] once daily aspirin 81 MG chewable [...] Anti-inflammatory Drug, Central Nervous System Stimulant, Methylxanthine xiolxar-atppxvwwmj-W SA-caff (lnkxiswkty-gcjktyd-rhpuklpr-codeine) capsule Indications: MIGRAINES Take 1 capsule by mouth continuous as needed for pain TAKES 2 TABLETS, EACH TABLET IS 30 MG ReasonsMIGRAINES. Active atorvastatin 80 mg oral tablet (20 sources) HMG-CoA Reductase Inhibitor Star t: 04-13 atorvastatin (LIPITOR) 80 mg tablet Indications: Mixed hyperlipidemia TAKE 1 TABLET IN THE MORNING 90 tablet 3 01/04/2024 Active Start: 12-08-2019 take 1 tablet by veronica th once daily at bedtime Atorvastatin (Lipitor) 40 mg Tablet Active 40 MG PO Daily at bedtime February 02, 2020 12:00am Start: 11-09-2017 End: 11-11-2017 baclofen 10 mg oral tablet (20 sources) gamma-Aminobutyric Acid-ergic Agonist Start: 05-17-2024 End: 08-02-2024 baclofen (LIORESAL) 10 mg tablet Indications: Cervical spondylosis with radiculopathy TAKE 1 TABLET FOUR TIMES A DAY 360 tablet 08/02/2024 Active Start: 08-25-2023 BACLOFEN 10 MG TABLET [...] hours. Active take 1 tablet by veronica th [...] (LOTRISONE) cream biotin 1 mg oral tablet (20 sources) Start: 11-15-2023 biotin 1000 MC G tablet See Instructions, Instructions: 2tab(s) Oral Daily and 1 tab at night, 0 Refill(s) 11/15/2023 Active Start: 02-04-2021 take 2 tablets by mo [facility] once daily biotin 1000 mcg oral tablet 2,000 mcg = 2 tab(s), Oral, Daily, # 30 tab(s), Refills(s) 0 Start Date: 02/04/21 Status: [facility] BIOTIN ORAL Take 1 tablet [...] g oral tablet (20 sources) Start: 02-04-2021 End: 06-26-2024 busPIRone (BUSPAR) 10 mg tablet Take 1 tablet (10 [...] 2020 12:00am cholecalciferol 0.125 mg oral tablet (20 sources) Vitamin D Start: 02-02-2020 take 1 [...] . Active cycloSPORINE 0.5 mg/ml ophthalmic suspension (8 sources) Calcineurin Inhibitor Immunosuppressant Start: 02-02-2020 take [...] Active diclofenac sodium 0.01 mg/mg topical gel (20 sources) Nonsteroidal Anti-inflammatory Drug Start: 03-07-2024 diclofenac [...] 0 Active famotidine 40 mg oral tablet (20 sources) Histamine-2 Receptor Antagonist Start: 03-18-2023 End: 07-26-2024 famotidine (PEPCID) 40 mg tablet Indications: Gastroesophageal reflux disease, unspecified whether esophagitis present TAKE 1 TABLET IN THE MORNING 90 tablet 1 07/26/2024 Active FeroSul 325 mg oral tablet (5 sources) Start: 08-25-2023 FeroSul 325 mg oral tablet Refills(s) 0 Start Date: 08/25/23 Status: Ordered ferrous sulfate 325 mg oral tablet (20 sources) Start: 06-13-2024 take 1 tablet by [...] (20 sources) Corticosteroid, beta2-Adrenergic Agonist Start: 01-31-2023 End: 06-27-2024 fluticasone propion-salmeteroL (ADVAIR HFA) 230-21 mcg/actuation inhaler Indications: Mild persistent asthma without complication USE 2 INHALATIONS TWICE A DAY 36 g 1 06/27/2024 Active Start: 02-04-2021 take 2 puff(s) by [...] 1 mg oral tablet (20 sources) Start: 08-07-2024 folic acid (FO LVITE) 1 mg tablet Indications: Iron deficiency anemia, unspecified iron deficiency anemia type TAKE 1 TABLET DAILY 90 tablet 3 08/07/2024 Active Start: 12-08-2019 End: 08-07-2024 folic acid (FOLVITE) 1 mg ta blet Indications: Iron deficiency anemia, unspecified iron deficiency anemia type take 1 tablet daily 90 tablet 05/08/2024 08/07/2024 Discontinued gabapentin 300 mg oral capsule (20 sources) Anti-epileptic Agent Start: 06-07-2024 gabapenti n (Neurontin) 300 MG capsule Indications: Lumbar radiculopathy TAKE 1 CAPSULE IN THE MORNING AND 1 CAPSULE AT NOON AND 1 CAPSULE IN THE EVENING AND 1 CAPSULE BEFORE BEDTIME 360 capsule 3 06/07/2024 Active Start: 02-02-2020 take 1 capsule by mo [facility] four times daily Gabapentin (Neurontin) 300 mg [...] Start: 09-28-2016 take 0.5 tablet by m out three times daily gabapentin (NEURONTIN) 600 MG tablet Take 0.5 tablets by mouth 3 times daily 90 tablet 3 09/28/2016 Active take 1 tablet by veronica four times daily gabapentin (NEURONTIN) 600 MG tablet Indications: Neuropathic Pain Take 600 mg by mouth 4 (four) times a day TAKES 1 TABLET ReasonsNeuropathic Pain. Active 1 ml galcanezumab-gnlm 120 m g/ml auto-injector (20 sources) Start: 02-18-2024 End: 02-17-2025 galcanezumab (Emgality) [...] Refills(s) 0 Start Date: 12/08/19 Status: Ordered icosapent ethyl 1000 mg oral capsule (5 sources) Start: 07-28-2024 take 1 capsule by mouth at bedtime icosapent ethyL (VASCEPA) 1 gram capsule Indications: Mixed hyperlipidemia Take 1 capsule (1 g total) by mouth in the morning and 1 capsule (1 g total) before bedtime. 180 capsule 1 07/28/2024 Active latanoprost 0.05 mg/ml ophthalmic solution (3 sources) Prostaglandin Analog Start: 02-02-2020 take 1 drop(s) into the eye(s) once daily in the evening Latanoprost Active 1 DROPS EYE-BOTH Every evening February 02, 2020 12:00am linaclotide (20 sources) Guanylate Cyclase-C Agonist Start: 02-02-2020 take 1 capsule by mouth once daily Linaclotide (Linzess) 290 mcg Capsule Active 290 MCG PO Daily February 01, 2020 11:00pm Start: 02-02-2020 take 1 capsule by mo uth once daily Linaclotide (Linzess) 290 mcg Capsule Active 290 MCG PO Daily February 02, 2020 12:00am End: 07-20-2024 linaCLOtide (LINZESS) 145 mc g capsule Take 30 mg by mouth as needed. 07/20/2024 Discontinued (Therapy completed) linaCLOtide (FANNIE ZESS PO) Take by mouth Active lithium carbonate 300 mg oral tablet (2 sources) End: 10-18-2017 take 1 tablet by mouth three times daily lithium 300 MG tablet Take 300 mg by mouth 3 times daily 0 Active loratadine 10 mg oral tablet (5 sources) loratadine (Claritin) 10 MG tablet 1 (one) [...] Active losartan potassium 50 mg oral tablet (7 sources) Angiotensin 2 Receptor Jeff Start: 02-02-2020 take 1 tablet by mouth once daily Losartan (Cozaar) 50 mg Tablet Active 50 MG PO Daily February 02, 2020 12:00am End: 06-26-2024 losartan (Cozaar) 100 MG tab let 1 (one) time each day at the same time. 06/26/2024 Discontinued lurasidone hydrochloride 40 mg oral tablet (1 source) Atypical Antipsychotic Start: 12-08-2019 take 1 mg by mouth once daily Latuda 40 mg oral tablet mg tab(s), Oral, Daily, Refills(s) 0 Start Date: 12/08/19 Status: Ordered metoclopramide 10 mg oral tablet (20 sources) Dopamine-2 Receptor Antagonist Start: 05-17-2024 End: 08-02-2024 take 1 tablet by mouth in the morning, then take 1 tablet by mouth at bedtime metoclopramide (REGLAN) 10 mg tablet Indications: Gastroesophageal reflux disease, unspecified whether esophagitis present Take 1 tablet (10 mg total) by mouth in the morning and 1 tablet (10 mg total) before bedtime. 180 tablet 08/02/2024 Active Start: 07-29-2023 End: 12-15-2023 metoclopramide (REGLAN) [...] (20 sources) Leukotriene Receptor Antagonist Start: 12-08-2019 End: 08-01-2024 montelukast (SINGULAIR) 10 mg tablet Indications: Mild persistent asthma without complication TAKE 1 TABLET DAILY 90 tablet 1 08/01/2024 Active Start: 11-09-2017 End: 11-11-2017 naltrexone hydrochloride 50 mg oral tablet (20 sources) Opioid Antagonist take 1.5 mg by mouth in the morning naltrexone (REVIA) 50 mg tablet Take 1.5 mg by mouth in the morning. Active naltrexone (Depa de) 50 MG tablet Take by mouth Active nitrofurantoin, macrocrystals 25 mg / nitrofurantoin, monohydrate 75 mg oral capsule (3 sources) Nitrofuran Antibacterial Start: 09-24-2023 End: 10-01-2023 take 1 capsule by mouth twice daily Macrobid 100 mg Cap 100 mg = 1 cap(s), Oral, BID, X 7 day(s), # 14 cap(s), Refills(s) 0, Pharmacy: [id number] Measurement #[id number], 165, cm, 08/25/23 12:52:00 EST, Height/Length Dosing, 97, kg, 08/25/23 12:52:00 EST, Weight Dosing Start Date: 09/24/23 Stop Date: 10/01/23 Status: Ordered nystatin 100 unt/mg topical powder (20 sources) Polyene Antifungal Start: 03-07-2024 nystatin (NYSTOP) powder Indications: An rash of [...] 11-10-2017 End: 11-11-2017 nystatin (MYCOSTATIN) powder omega 1-uyc-wfk-fish oil (Fi sh OiL) 100-160-1,000 mg capsule (18 sources) Start: 02-04-2021 omega 3-dha-ep a-fish oil (Fish OiL) 100-160-1,000 mg capsule Take 1,200 mg by mouth. 02/04/2021 Active Start: 02-04-2021 omega 3-dha-ep a-fish oil (Fish OiL) 100-160-1,000 mg capsule Take 1,200 mg by mouth. 0 02/04/2021 Active ondansetron 4 mg oral tablet (11 sources) Serotonin-3 Receptor Antagonist Start: 02-02-2020 take 2 tablets by mouth twice daily Ondansetron Hcl (Zofran) 4 mg Tablet Active 2 TAB PO Twice daily February 02, 2020 12:00am Start: 11-11-2017 End: 11-11-2017 ondansetron (ZOFRAN-ODT) disintegrating tablet 4 mg Start: 11-09-2017 End: 11-11-2017 take 4 mg intravenous route every six hours as needed End: 06-26-2024 ondansetron (Zofran) 4 MG ta blet 1 (one) time each day at the same time. 06/26/2024 Discontinued pantoprazole 40 mg delayed release oral tablet (20 sources) Proton Pump Inhibitor Start: 12-22-2023 pantoprazole (PROTON IX) 40 mg EC tablet Indications: Gastroesophageal reflux disease, unspecified whether esophagitis present TAKE 1 TABLET IN THE MORNING AND AT BEDTIME 180 tablet 3 12/22/2023 Active Start: 02-02-2020 End: 10-06-2023 pantoprazole (ProtoNix) 40 M G EC tablet 01/07/2023 Active Start: 12-08-2019 take 1 tablet by veronica th twice daily Pantoprazole [address] Tab 40 mg = 1 tab(s), Oral, BID, Refills(s) 0 Start Date: 12/08/19 Status: Ordered Start: 11-09-2017 End: 11-11-2017 24 hr propranolol hydrochloride 60 mg extended release oral capsule (18 sources) beta-Adrenergic Jeff Start: 05-26-2024 End: 05-21-2025 take 1 capsule by mouth once daily [...] nightly TAKES 1 TABLET . Active sennosides, fci 17.2 mg oral tablet (14 sources) Start: 11-15-2023 sennosides 17. 2 MG tablet 17.2 mg 11/15/2023 Active Start: 02-02-2020 take 2 tablets by mo [facility] once daily at bedtime Sennosides (Senna) 8.6 mg Tablet Active 17.2 MG PO Daily at bedtime February 02, 2020 12:00am Start: 12-08-2019 take 1 mg by mouth once daily senna 17.2 mg oral tablet mg tab(s), Oral, Daily, Refills(s) 0 Start Date: 12/08/19 Status: Ordered levothyroxine sodium 0.05 mg oral tablet (20 sources) l-Thyroxine Start: 08-07-2024 levothyroxine (SYNTHROID, LEVOTHROID) 50 MCG tablet Indications: Hypothyroidism, unspecified type TAKE 1 TABLET DAILY 90 tablet 1 08/07/2024 Active Start: 05-08-2024 End: 08-07-2024 levothyroxine (SYNTHROID, LE VOTHROID) 50 MCG tablet Indications: Hypothyroidism, unspecified type take 1 tablet daily 90 tablet 05/08/2024 08/07/2024 Discontinued Start: 07-26-2023 End: 11-25-2023 levothyroxine (SYNTHROID, LE [...] Start: 09-28-2016 take 1 tablet by veronica once daily at bedtime Levothyroxine (Synthroid) 25 mcg Tablet Active 25 MCG PO Daily at bedtime February 02, 2020 12:00am tiZANidine 4 mg oral tablet (3 sources) Central alpha-2 Adrenergic Agonist Start: 02-06-2020 take 4 mg by mouth once daily at bedtime Tizanidine Active 4 MG PO Daily at bedtime February 06, 2020 12:00am valsartan 80 mg oral tablet (20 sources) Angiotensin 2 Receptor Jeff Start: 07-28-2024 End: 08-02-2024 valsartan (DIOVAN) 80 mg tablet Indications: Essential hypertension Daily at noon 90 tablet 1 08/02/2024 Active Start: 07-20-2024 take 0.5 tablet by m outh in the morning, then take 0.5 tablet by mouth at bedtime valsartan (DIOVAN) 80 mg tablet Indications: Essential hypertension Take 0.5 tablets (40 mg total) by mouth in the morning and 0.5 tablets (40 mg total) before bedtime. 07/20/2024 Active Start: 05-30-2024 End: 07-20-2024 valsartan (DIOVAN) 80 mg tab let Indications: Essential hypertension TAKE 1 TABLET IN THE MORNING 90 tablet 05/30/2024 07/20/2024 Discontinued Start: 06-23-2023 End: 12-02-2023 valsartan (DIOVAN) 80 [...] Active vitamin b12 1 mg oral tablet (20 sources) Vitamin B12 Start: 05-10-2024 take 1 [...] t,w,f,s,s, and 10 mg and 0 Active zolpidem tartrate 10 mg oral tablet (20 sources) gamma-Aminobutyric Acid-ergic Agonist Start: 12-08-2019 zolpidem (AMBIEN) 10 [...] mg docusate sodium 50 mg / sennosides, fci 8.6 mg oral tablet (5 sources) Start: [...] suspension (1 source) Start: 11-09-2017 End: 11-11-2017 meloxicam 7.5 mg oral tablet (4 sources) Nonsteroidal Anti-inflammatory Drug End: 06-26-2024 meloxicam (Mobic) 7.5 MG tablet 1 (one) time each day at the same time. 06/26/2024 Discontinued Memantine Er 7 Mg-14 Mg-21 Mg-28 Mg Capsule,Sprinkle,Ex t.Rel.24hr Pack (1 source) H-pynhks-A-aspartat e Receptor Antagonist End: 10-18-2017 take 1 tablet by mouth once memantine (NAMENDA XR) 7-14-21-28 mg C24k Indications: MIGRAINES Take by mouth nightly TAKES 1 TABLET ReasonsMIGRAINES. 10/18/2017 Discontinued metoprolol tartrate 50 mg oral tablet (2 sources) beta-Adrenergic Jeff Start: 11-09-2017 End: 11-11-2017 morphine sulfate 15 [...] daily as needed MIXES WITH LIQUIDS. Active prochlorperazine 10 mg oral tablet (4 sources) Phenothiazine End: 06-26-2024 prochlorperazine (Compazine) 10 MG tablet every 8 (eight) hours. 06/26/2024 Discontinued promethazine hydrochloride 25 mg oral tablet (4 sources) Phenothiazine End: 06-26-2024 take 1 tablet by mouth every six hours as needed for nausea promethazine (Phenergan) 25 MG tablet 1 tablet Oral every 6 hours as needed for nausea 06/26/2024 Discontinued 72 hr scopolamine 0.0139 mg/hr transdermal system (1 source) Anticholinergic Start: 11-09-2017 End: 11-11-2017 scopolamine (TRANSDERM-SCOP) 1 mg over 3 days patch 1 patch sodium chloride (2 sources) Start: 11-09-2017 End: 11-11-2017 sodium chloride (PF) (NS) flush 5 mL Start: 11-09-2017 End: 11-09-2017 ubrogepant 100 mg oral table t (12 sources) Start: 11-26-2023 End: 06-26-2024 Ubrogepant (Ubrelvy) 100 MG tablet Indications: Migraine without aura and without status migrainosus, not intractable (CMS/HCC) Ubrelvy 100 mg tablet 30 tablet 11 11/26/2023 06/26/2024 Discontinued vortioxetine 10 mg oral tabl et (3 sources) Start: 11-10-2017 End: 11-11-2017 take 1 tablet by veronica th once daily in the morning vortioxetine (TRINTELLIX) 10 mg tablet Indications: major depressive disorder Take 10 mg by mouth every morning TAKES 1 TABLET . Active Xdemvy 0.25 % solution (4 sources) Start: 05-17-2024 End: 06-26-2024 take 1 drop(s) into the eye(s) twice daily Xdemvy 0.25 % solution INSTILL 1 DROP IN BOTH EYES TWICE DAILY FOR 6 WEEKS 05/17/2024 06/26/2024 Discontinued Start: 05-17-2024 take 1 drop(s) into the eye(s) twice daily Xdemvy 0.25 % solution INSTILL 1 DROP IN BOTH EYES TWICE DAILY FOR 6 WEEKS 05/17/2024 Active Problems Active Problems Problem Classification Problem Date Documented Da te Episodic/Chronic Abdominal pain (6 sources) Flank pain 12-08-2019 Episodic Acquired foot deformities (5 sources) Acquired left hallux valgus; Translations: [Hallux valgus [...] 6 11-09-2017 Chronic Blindness and vision defects (20 sources) Blindness AND/OR vision impairment level; Translations: [Blindness, one eye, unspecified eye] Onset: 6 05-20-2022 Chronic Cataract (5 sources) Cataract; Translations: [Unspecified cataract] Onset: 3 07-26-2023 Chronic Chronic kidney disease (20 sources) Chronic kidney disease stage 3A ; Translations: [Stage 3a chronic kidney disease] Onset: 1 Resolved: 3 05-05-2023 Chronic Coagulation and hemorrhagic disorders (20 sources) Antiphospholipid syndrome; Translations: [Antiphospholipid syndrome] Onset: 3 09-27-2016 Chronic Coronary atherosclerosis and other heart disease (6 sources) Coronary arteriosclerosis; Translations: [Atherosclerotic heart disease of zuni coronary artery without angina pectoris] Onset: 7 09-27-2016 Chronic Deficiency and other anemia (1 source) Iron deficiency anemia due to blood loss; Translations: [Iron deficiency anemia secondary to blood loss (chronic)] 06-13-2024 Chronic Deficiency and other anemia (20 sources) Iron deficiency anemia; Translations: [Iron deficiency anemia, unspecified] Onset: 4 05-20-2022 Episodic Deficiency and other anemia (1 source) Deficiency and other anemia Onset: 4 Disorders of lipid metabolism (20 sources) Hyperlipidemia; Translations: [Hyperlipidemia, unspecified] Onset: 2 05-20-2022 Chronic Disorders of lipid metabolism (2 sources) Pure hypercholesterolemia, unspecified; Translations: [Pure hypercholesterolemia, unspecified] Onset: 8 Esophageal disorders (20 sources) Gastroesophageal reflux disease; Translations: [Gastro-esophageal reflux disease without esophagitis] Onset: 7 11-09-2017 Chronic Essential hypertension (20 sources) Hypertensive disorder; Translations: [Essential (primary) hypertension] Onset: 8 11-09-2017 Chronic Gastritis and duodenitis (20 sources) Chronic antral gastritis; Translations: [Unspecified chronic gastritis without bleeding] Onset: 7 06-02-2017 Chronic Genitourinary symptoms and ill-defined conditions (11 sources) Post-micturition incontinence ; Translations: [Urinary incontinence] 12-08-2019 Chronic Genitourinary symptoms and ill-defined conditions (20 sources) Preet hematuria; Translations: [History of urinary tract infection] 12-07-2019 Episodic Glaucoma (20 sources) Glaucoma; Translations: [Unspecified glaucoma] Onset: 0 05-20-2022 Chronic Headache; including migraine (20 sources) Migraine without aura, not intractable, without status migrainosus; Translations: [Migraine] Onset: 6 12-07-2019 Chronic Immunizations and screening for infectious disease (3 sources) Encounter for screening for human papillomavirus (HPV); Translations: [Patient encounter status] Onset: 2 07-20-2024 Episodic Inflammation; infection of eye (except that caused by tuberculosis or sexually transmitteddisease) (11 sources) Optic neuritis; Translations: [Disorder of optic nerve] Onset: 3 12-07-2019 Chronic Mood disorders (20 sources) Bipolar disorder; Translations: [Bipolar disorder, unspecified] Onset: 7 11-09-2017 Chronic Nutritional deficiencies (5 sources) Vitamin D deficiency; Translations: [Vitamin D deficiency, unspecified] Onset: 2 05-26-2024 Chronic Osteoarthritis (20 sources) Unilateral primary osteoarthritis, left hip; Translations: [Osteoarthritis of hip] Onset: 8 11-09-2017 Chronic Other aftercare (2 sources) Aftercare following joint replacement surgery; Translations: [Aftercare following joint replacement surgery] Onset: 8 Chronic Other circulatory disease (20 sources) Device in situ; Translations: [Presence of [...] Onset: 8 Chronic Other connective tissue disease (5 sources) Hip joint prosthesis present; Translations: [Presence of left artificial hip joint] Onset: 2 05-26-2024 Chronic Other connective tissue disease (2 sources) Fibromyalgia; Translations: [Fibromyalgia] Onset: 8 Episodic Other connective tissue disease (6 sources) Fibromyalgia 12-07-2019 Episodic Other ear and sense organ disorders (5 sources) Sensorineural hearing loss, bilateral; Translations: [Sensorineural hearing loss, bilateral] Onset: 3 03-29-2023 Chronic Other eye disorders (20 sources) Optic atrophy of right eye; 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, right eye] Onset: 6 05-20-2022 Chronic Other eye disorders (5 sources) Ischemic optic neuropathy; Translations: [Ischemic optic neuropathy, unspecified eye] Onset: 3 07-26-2023 Chronic Other nervous system disorders (20 sources) Metabolic encephalopathy; Translations: [Metabolic encephalopathy] Onset: 7 09-27-2016 Chronic Other nervous system disorders (6 sources) Chronic pain; Translations: [Other chronic pain] Onset: 7 09-27-2016 Chronic Other nervous system disorders (5 sources) Inattention; Translations: [Attention and concentration deficit] Onset: 3 03-29-2023 Chronic Other nervous system disorders (5 sources) Difficulty walking; Translations: [Difficulty in walking, not elsewhere classified] Onset: 2 05-26-2024 Chronic Other nutritional; endocrine; and metabolic disorders (2 sources) Other obesity; Translations: [Other obesity] Onset: 8 Chronic Other nutritional; endocrine; and metabolic disorders (20 sources) Obese class I; Translations: [Obesity, unspecified] Onset: 9 05-20-2022 Chronic Other screening for suspected conditions (not mental disorders or infectious disease) (10 sources) Encounter for screening for malignant neoplasm of cervix; Translations: [Encounter for screening mammogram for malignant neoplasm of breast] Onset: 2 Episodic Other upper respiratory disease (20 sources) Chronic rhinitis; Translations: [Chronic rhinitis] Onset: 9 05-20-2022 Chronic Other upper respiratory disease (3 sources) Bleeding from nose; Translations: [Epistaxis] 01-31-2020 Episodic Phlebitis; thrombophlebitis and thromboembolism (18 sources) Chronic deep venous thrombosis of thigh; [...] MALIG NEOPLASM OTH ORGN/SYS] Onset: 2 Episodic Residual codes; unclassified (2 sources) Postmenopausal state; Translations: [Asymptomatic menopausal state] 06-26-2024 Episodic Spondylosis; intervertebral disc disorders; other back problems (20 sources) Cervical spondylosis; Translations: [Other spondylosis with radiculopathy, cervical region] Onset: 8 05-20-2022 Chronic Systemic lupus erythematosus and connective tissue disorders (20 sources) Systemic lupus erythematosus; Translations: [Systemic lupus erythematosus, unspecified] Onset: 3 05-20-2022 Chronic Thyroid disorders (20 sources) Hypothyroidism; Translations: [Hypothyroidism, unspecified] Onset: 7 Resolved: 2 11-09-2017 Chronic Transient cerebral ischemia (5 sources) Transient cerebral ischemia; Translations: [Transient cerebral ischemic [...] Date Documented Da te Episodic/Chronic Administrative/social admission (5 sources) Problem related to life management difficulty; Translations: [Other problems related to life management difficulty] Onset: 10-24-2021 05-26-2024 Episodic Calculus of urinary tract (20 sources) Kidney stone; Translations: [Calculus of kidney] Onset: 05-20-2022 11-09-2017 Episodic Deficiency and other anemia (11 sources) Anemia; Translations: [Anemia, unspecified] Onset: 07-26-2023 12-07-2019 Episodic Deficiency and other anemia (2 sources) Iron deficiency anemia, unspecified; Translations: [Iron deficiency anemia, unspecified] Onset: 05-20-2022 Episodic Headache, including migraine (7 sources) Headache; Translations: [Chronic headache disorder] Onset: 09-27-2016 11-09-2017 Episodic Malaise and fatigue (5 sources) Fatigue; Translations: [Other fatigue] Onset: 10-24-2021 05-26-2024 Episodic Mood disorders (20 sources) Other specified depressive episodes; Translations: [Mood disorders] Onset: 05-06-2023 Resolved: 07-20-2024 05-06-2023 Nutritional deficiencies (4 sources) Cobalamin deficiency; Translations: [Deficiency of other specified B group vitamins] Onset: 12-09-2023 12-09-2023 Episodic Other aftercare (20 sources) Polypharmacy ; Translations: [Other terminal carman (current) drug therapy] Onset: 09-27-2016 09-27-2016 Episodic Other aftercare (20 sources) Long-term current use of anticoagulant; Translations: [terminal operations manager (current) use of 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] Onset: 11-24-2021 09-24-2023 Episodic Other aftercare (5 sources) Patient encounter status; Translations: [Encounter for therapeutic drug level monitoring] Onset: 09-05-2013 07-26-2023 Episodic Other aftercare (1 source) USP (current) use of 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; Translations: [terminal operations manager (current) use of 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] Onset: 11-24-2021 Episodic Other circulatory disease (2 sources) Elevated blood-pressure reading, without diagnosis of hypertension; Translations: [Elevated blood-pressure reading, without diagnosis of hypertension] Onset: 10-21-2017 Episodic Other circulatory disease (6 sources) History of cerebrovascular accident; Translations: [Personal history of transient ischemic attack (TIA), and cerebral infarction without residual deficits] Onset: 09-27-2016 09-27-2016 Episodic Other connective tissue disease (20 sources) Primary fibromyalgia syndrome; Translations: [Fibromyalgia] Onset: 05-20-2022 11-09-2017 Episodic Other connective tissue disease (5 sources) Muscle weakness; Translations: [Muscle weakness (generalized)] Onset: 10-24-2021 05-26-2024 Episodic Other ear and sense organ disorders (20 sources) Bilateral tinnitus; Translations: [Tinnitus, bilateral] Onset: 03-29-2023 04-26-2023 Episodic Other ear and sense organ disorders (5 sources) Tinnitus; Translations: [Tinnitus, unspecified ear] Onset: 03-29-2023 03-29-2023 Episodic Other endocrine disorders (20 sources) Syndrome of inappropriate vasopressin secretion; Translations: [Syndrome of inappropriate secretion of antidiuretic hormone] Onset: 05-20-2022 Resolved: 05-05-2023 05-05-2023 Chronic Other gastrointestinal disorders (5 sources) Constipation; Translations: [Constipation, unspecified] Onset: 10-23-2021 05-26-2024 Episodic Other infections; including parasitic (20 sources) Personal history of other infectious and parasitic diseases; Translations: [History of 2019 novel coronavirus disease (COVID-19)] Onset: 10-29-2021 10-29-2021 Episodic Other injuries and conditions due to external causes (20 sources) Hematoma; Translations: [Other injury of unspecified body region, initial encounter] Onset: 10-06-2021 10-06-2021 Episodic Other injuries and conditions due to external causes (20 sources) History of fall; Translations: [History of falling] Onset: 10-23-2021 Resolved: 05-20-2022 05-20-2022 Episodic Other nervous system disorders (1 source) Disorder of brain; Translations: [Encephalopathy, unspecified] Resolved: 09-27-2016 09-27-2016 Chronic Other nervous system disorders (20 sources) Impaired cognition; Translations: [Other symptoms and signs involving cognitive functions and awareness] Onset: 04-29-2021 05-20-2022 Episodic Other nervous system disorders (5 sources) Ataxia; Translations: [Ataxia, unspecified] Onset: 03-29-2023 03-29-2023 Episodic Other nervous system disorders (5 sources) Finding related to ability to move; Translations: [...] unspecified] Onset: 10-21-2017 Episodic Residual codes; unclassified (20 sources) Altered mental status; Translations: [Altered mental status, unspecified] Onset: 12-07-2021 09-27-2016 Episodic Residual codes; unclassified (20 sources) Delirium; Translations: [Disorientation, unspecified] Onset: 10-29-2021 10-29-2021 Episodic Residual codes; unclassified (5 sources) History of cardiac catheterization; Translations: [Other specified postprocedural states] Onset: 09-13-1998 07-26-2023 Episodic Residual codes; unclassified (5 sources) Insomnia; Translations: [Insomnia, unspecified] Onset: 10-23-2021 05-26-2024 Episodic Spondylosis; intervertebral disc disorders; other back problems (20 sources) Cervico-occipital neuralgia; Translations: [Occipital neuralgia] Onset: 03-15-2018 05-20-2022 Episodic Substance-related disorders (6 sources) Misuse of prescription only drugs; Translations: [Other psychoactive substance use, unspecified, uncomplicated] Onset: 07-26-2023 09-27-2016 Episodic Superficial injury; contusion (5 sources) Contusion of left thigh; Translations: [Contusion of left thigh, initial encounter] Onset: 10-28-2021 05-26-2024 Episodic Unclassified (6 sources) Personal history of other medical treatment; Translations: [H/O: blood transfusion] Onset: 09-13-2012 11-09-2017 Episodic Viral infection (5 sources) Disease caused by 2019-nCoV; Translations: [COVID-19] Onset: 10-23-2021 05-26-2024 Episodic Results Test Name Value Interpretation Reference Range Facility Complement C3on 08-11-2024 Complement C3 167 mg/dL Normal 82-167 [facility] Comment on above: Result Comment: Perf ormed at: - [facility] [place] [id number] Tunnel Worker: Thony Mcmillan PhD, Phone: [phone] Performed By: #### C 3, C4, CH50 #### [facility] , #### CBC, CMP, ESR, ADDONUAPLUS #### [address] Complement C4on 08-11-2024 Complement C4 40 mg/dL High 12-38 [facility] Comment on above: Result Comment: PERF ORMED BY: [place] [address] PATHOLOGIST ROTARY CUTTER OPERATOR BELEM MCCALL M.D. Performed By: #### C 3, C4, CH50 #### [facility] , #### CBC, CMP, ESR, ADDONUAPLUS #### [address] Complement Total (CH50)on Complement Total (CH50) >60 Normal >41 T [facility] Comment on above: Result Comment: [...] out of range values. Performed at: - [facility] [id number] Tunnel Worker: Thony Mcmillan PhD, Phone: [phone] PERFORMED BY: [place] [address] PATHOLOGIST ROTARY CUTTER OPERATOR BELEM MCCALL M.D. Performed By: #### C 3, C4, CH50 #### [facility] , #### CBC, CMP, ESR, ADDONUAPLUS #### [address] Complete Blood Count Auto Di ffon 08-11-2024 Basophils (Bld) [#/Vol] 0.0 10*3/uL Normal 0.0-0.2 [facility] Comment on above: Performed By: #### C MP, ESR, CBC, UA #### [address] #### C3, C4, CH50 #### [facility] , Basophils/100 WBC (Bld) 0.4 % Normal . T marlyn [facility] Comment on above: Performed By: #### C MP, ESR, CBC, UA #### [address] #### C3, C4, CH50 #### [facility] , Eosinophils (Bld) [#/Vol] 0.1 10*3/uL Normal 0.0-0.45 [facility] Comment on above: Performed By: #### C MP, ESR, CBC, UA #### [place] [address] [place] #### C3, C4, CH50 #### [facility] , Eosinophils/100 WBC (Bld) 0.7 % Normal . [facility] Comment on above: Performed By: #### C MP, ESR, CBC, UA #### [place] [address] [place] #### C3, C4, CH50 #### [facility] , Erythrocyte distribution width (RBC) [Ratio] 14.4 % Normal 11.9-15.3 [facility] Comment on above: Performed By: #### C MP, ESR, CBC, UA #### [place] [address] [place] #### C3, C4, CH50 #### [facility] , Hematocrit (Bld) [Volume fraction] 39.7 % Normal 34.0-46.4 [facility] Comment on above: Performed By: #### C MP, ESR, CBC, UA #### [place] [address] [place] #### C3, C4, CH50 #### [facility] , Hemoglobin (Bld) [Mass/Vol] 13.3 g/dL Normal 11.8-15.4 [facility] Comment on above: Performed By: #### C MP, ESR, CBC, UA #### [address] #### C3, C4, CH50 #### [facility] , Lymphocytes (Bld) [#/Vol] 2.1 10*3/uL Normal 1.00-4.8 [facility] Comment on above: Performed By: #### C MP, ESR, CBC, UA #### [place] [address] [place] #### C3, C4, CH50 #### [facility] , Lymphocytes/100 WBC (Bld) 23.6 % Normal . [facility] Comment on above: Performed By: #### C MP, ESR, CBC, UA #### [address] #### C3, C4, CH50 #### [facility] , MCH (RBC) [Entitic mass] 30.9 pg Normal 24.7-34.3 [facility] Comment on above: Performed By: #### C MP, ESR, CBC, UA #### [place] [address] [place] #### C3, C4, CH50 #### [facility] , MCV (RBC) [Entitic vol] 92.1 fL Normal 80-100 T [facility] Comment on above: Performed By: #### C MP, ESR, CBC, UA #### [address] #### C3, C4, CH50 #### [facility] , Mean Corpuscular HGB Conc 33.6 g/dL Normal 32.0-35.0 [facility] Comment on above: Performed By: #### C MP, ESR, CBC, UA #### [address] #### C3, C4, CH50 #### [facility] , Monocytes (Bld) [#/Vol] 0.7 10*3/uL Normal 0.0-0.8 [facility] Comment on above: Performed By: #### C MP, ESR, CBC, UA #### [place] [address] [place] #### C3, C4, CH50 #### [facility] , Monocytes/100 WBC (Bld) 7.8 % Normal . T [facility] Comment on above: Performed By: #### C MP, ESR, CBC, UA #### [address] #### C3, C4, CH50 #### [facility] , Neutrophils (Bld) [#/Vol] 6.0 10*3/uL Normal 1.8-7.7 [facility] Comment on above: Performed By: #### C MP, ESR, CBC, UA #### [place] [address] [place] #### C3, C4, CH50 #### [facility] , Neutrophils/100 WBC (Bld) 67.5 % Normal . [facility] Comment on above: Performed By: #### C MP, ESR, CBC, UA #### [address] #### C3, C4, CH50 #### [facility] , NRBC% 0.0 /100{WBC} Normal 0-0.5 [facility] Comment on above: Performed By: #### C MP, ESR, CBC, UA #### [place] [address] [place] #### C3, C4, CH50 #### [facility] , Platelet mean volume (Bld) [Entitic vol] 8.9 fL Normal 6.3-10.7 [facility] Comment on above: Performed By: #### C MP, ESR, CBC, UA #### [address] #### C3, C4, CH50 #### [facility] , Platelets (Bld) [#/Vol] 255 10*3/uL Normal 150-450 [facility] Comment on above: Performed By: #### C MP, ESR, CBC, UA #### [place] [address] [place] #### C3, C4, CH50 #### [facility] , RBC (Bld) [#/Vol] 4.31 10*6/uL Normal 3.60-5.[address] [facility] Comment on above: Performed By: #### C MP, ESR, CBC, UA #### [place] [address] [place] #### C3, C4, CH50 #### [facility] , WBC (Bld) [#/Vol] 8.8 10*3/uL Normal 3.8-11.6 [facility] Comment on above: Performed By: #### C MP, ESR, CBC, UA #### [place] [address] [place] #### C3, C4, CH50 #### [facility] , Comprehensive Metabolic Pane vijay 08-11-2024 Albumin [Mass/Vol] 4.0 g/dL Normal 3.5-5.7 [facility] Comment on above: Performed By: #### C MP, ESR, CBC, UA #### [address] #### C3, C4, CH50 #### [facility] , Albumin/Globulin [Mass ratio] 1.5 {ratio} Normal [facility] Comment on above: Performed By: #### C MP, ESR, CBC, UA #### [address] #### C3, C4, CH50 #### [facility] , ALP [Catalytic activity/Vol] 80 U/L Normal 34-104 [facility] Comment on above: Result Comment: PERF ORMED BY: [place] [address] PATHOLOGIST ROTARY CUTTER OPERATOR BELEM MCCALL M.D. Performed By: #### C MP, ESR, CBC, UA #### [place] [address] [place] #### C3, C4, CH50 #### [facility] , ALT [Catalytic activity/Vol] 17 U/L Normal 7-52 [facility] Comment on above: Performed By: #### C MP, ESR, CBC, UA #### [place] [address] [place] #### C3, C4, CH50 #### [facility] , Anion gap [Moles/Vol] 11.5 mmol/L Normal 6.0-15.0 Th e [facility] Comment on above: Performed By: #### C MP, ESR, CBC, UA #### [address] #### C3, C4, CH50 #### [facility] , AST [Catalytic activity/Vol] 12 U/L Low 13-39 [facility] Comment on above: Performed By: #### C MP, ESR, CBC, UA #### [address] #### C3, C4, CH50 #### [facility] , Bilirubin [Mass/Vol] 0.3 mg/dL Normal 0.3-1.0 [facility] Comment on above: Performed By: #### C MP, ESR, CBC, UA #### [address] #### C3, C4, CH50 #### [facility] , Calcium [Mass/Vol] 9.2 mg/dL Normal 8.6-10.3 [facility] Comment on above: Performed By: #### C MP, ESR, CBC, UA #### [place] [address] [place] #### C3, C4, CH50 #### [facility] , Chloride [Moles/Vol] 102 mmol/L Normal 98-107 [facility] Comment on above: Performed By: #### C MP, ESR, CBC, UA #### [facility] [address] [place] [address] [place] #### C3, C4, CH50 #### [facility] , CO2 [Moles/Vol] 29.7 mmol/L Normal 21.0-31.0 [facility] Comment on above: Performed By: #### C MP, ESR, CBC, UA #### [place] [address] [place] #### C3, C4, CH50 #### [facility] , Creatinine [Mass/Vol] 1.05 mg/dL Normal 0.60-1.20 [facility] Comment on above: Performed By: #### C MP, ESR, CBC, UA #### [place] [address] [place] #### C3, C4, CH50 #### [facility] , Estimated GFR 59.703 mL/Min Normal [facility] Comment on above: Performed By: #### C MP, ESR, CBC, UA #### [place] [address] [place] #### C3, C4, CH50 #### [facility] , Globulin (S) [Mass/Vol] 2.7 g/dL Normal [facility] Comment on above: Performed By: #### C MP, ESR, CBC, UA #### [place] [address] [place] #### C3, C4, CH50 #### [facility] , Glucose [Mass/Vol] 154 mg/dL High 70-100 [facility] Comment on above: Result Comment: [facility] Glucose Reference Range is dependent on time and content of last meal. Glucose of more than 200 mg/dL in a nonstressed, ambulatory subject supports the diagnosis of Diabetes Mellitus. ADA recommended reference range Performed By: #### C MP, ESR, CBC, UA #### [place] [address] [place] #### C3, C4, CH50 #### [facility] , Potassium [Moles/Vol] 4.2 mmol/L Normal 3.5-5.1 [facility] Comment on above: Performed By: #### C MP, ESR, CBC, UA #### [place] [id number] [place] #### C3, C4, CH50 #### [facility] , Protein [Mass/Vol] 6.7 g/dL Normal 6.4-8.9 [facility] Comment on above: Performed By: #### C MP, ESR, CBC, UA #### [address] #### C3, C4, CH50 #### [facility] , Sodium [Moles/Vol] 139 mmol/L Normal 136-145 [facility] Comment on above: Performed By: #### C MP, ESR, CBC, UA #### [address] #### C3, C4, CH50 #### [facility] , Urea nitrogen [Mass/Vol] 20 mg/dL Normal 7-25 [facility] Comment on above: Performed By: #### C MP, ESR, CBC, UA #### [address] #### C3, C4, CH50 #### [facility] , Erythrocyte Sedimentation Ra roman 08-11-2024 ESR (Bld) [Velocity] 20 mm/h Normal 0-29 [facility] Comment on above: Result Comment: PERF ORMED BY: [place] [address] PATHOLOGIST ROTARY CUTTER OPERATOR BELEM MCCALL M.D. Performed By: #### C 3, C4, CH50 #### [facility] , #### CBC, CMP, ESR, ADDONUAPLUS #### [address] Urinalysison 08-11-2024 Appearance (U) Clear Normal Clear [facility] Comment on above: Order Comment: Name Collection Type:: Clean-Voided Midstream Performed By: #### C MP, ESR, CBC, UA #### [address] #### C3, C4, CH50 #### [facility] , Bilirubin,Urine Negative Normal Negative [facility] Comment on above: Order Comment: Name Collection Type:: Clean-Voided Midstream Performed By: #### C MP, ESR, CBC, UA #### [address] #### C3, C4, CH50 #### [facility] , Color (U) Light-Yellow Normal Yellow [facility] Comment on above: Order Comment: Name Collection Type:: Clean-Voided Midstream Performed By: #### C MP, ESR, CBC, UA #### [address] #### C3, C4, CH50 #### [facility] , Glucose Ql (U) Normal Normal Normal [facility] Comment on above: Order Comment: Name Collection Type:: Clean-Voided Midstream Performed By: #### C MP, ESR, CBC, UA #### [address] #### C3, C4, CH50 #### [facility] , Ketones Ql (U) Negative Normal Negative [facility] Comment on above: Order Comment: Name Collection Type:: Clean-Voided Midstream Performed By: #### C MP, ESR, CBC, UA #### [address] #### C3, C4, CH50 #### [facility] , Leukocyte esterase Test strip Ql (U) Negative Normal Negative [facility] Comment on above: Order Comment: Name Collection Type:: Clean-Voided Midstream Performed By: #### C MP, ESR, CBC, UA #### [address] #### C3, C4, CH50 #### [facility] , Nitrite,Urine Negative Normal Negative The [facility] Comment on above: Order Comment: Name Collection Type:: Clean-Voided Midstream Performed By: #### C MP, ESR, CBC, UA #### [address] #### C3, C4, CH50 #### [facility] , Occult Blood,Urine Negative Normal Negative [facility] Comment on above: Order Comment: Name Collection Type:: Clean-Voided Midstream Result Comment: PERF ORMED BY: [place] [address] PATHOLOGIST ROTARY CUTTER OPERATOR BELEM MCCALL M.D. Performed By: #### C MP, ESR, CBC, UA #### [address] #### C3, C4, CH50 #### [facility] , pH (U) 5.5 [pH] Normal 5.0-9.0 [facility] Comment on above: Order Comment: Name Collection Type:: Clean-Voided Midstream Performed By: #### C MP, ESR, CBC, UA #### [address] #### C3, C4, CH50 #### [facility] , Protein,Urine Negative Normal Negative [facility] Comment on above: Order Comment: Name Collection Type:: Clean-Voided Midstream Performed By: #### C MP, ESR, CBC, UA #### [address] #### C3, C4, CH50 #### [facility] , Specificy Sherman,Urine 1.015 Normal 1.001-1.030 [facility] Comment on above: Order Comment: Name Collection Type:: Clean-Voided Midstream Performed By: #### C MP, ESR, CBC, UA #### [place] [address] [place] #### C3, C4, CH50 #### [facility] , Urobilinogen,Urine Normal Normal Normal [facility] Comment on above: Order Comment: Name Collection Type:: Clean-Voided Midstream Performed By: #### C MP, ESR, CBC, UA #### [facility] [address] #### C3, C4, CH50 #### [facility] , POCT Protime / INRon 024 INR Coag (PPP) [Relative time] 2.2 {INR} Abnormal 0.8 - 1.[address] [facility] Interpretation and review of laboratory results Abnormal [facility] POCT Protime / INRon 024 INR Coag (PPP) [Relative time] 1.7 {INR} Abnormal 0.8 - 1.[address] [facility] Interpretation and review of laboratory results Abnormal [facility] CBC AND AUTO DIFFon 07-20-20 24 ABSOLUTE BASOPHIL 0.1 X10E9/L Normal 0.0-0.2 [facility] Comment on above: Performed By: #### C SILVINO [facility], , 2132-05 #### [facility] ([id number]) [address] [place] [address] ABSOLUTE NEUTROPHIL 7.2 X10E9/L High 1.5-6.6 [facility] Comment on above: Performed By: #### C SILVINO, [facility], , 2132-05 #### [facility] ([id number]) [address] [place] [address] Basophils/100 WBC (Bld) 0.9 % Normal [facility] Comment on above: Performed By: #### C SILVINO, CMP, , 2132-05 #### [facility] ([id number]) [address] [place] [address] Eosinophils (Bld) [#/Vol] 0.0 10*3/uL Normal 0.0-0.4 [facility] Comment on above: Performed By: #### C ELDER DUBOIS, , 2132-05 #### [facility] ([id number]) [address], [address] [place] [address] Eosinophils/100 WBC (Bld) 0.4 % Normal [facility] Comment on above: Performed By: #### C ELDER DUBOIS, , 2132-05 #### [facility] ([id number]) [address], [facility] [address] [place] [address] Erythrocyte distribution width (RBC) [Ratio] 15.2 % High 11.5-15.0 [facility] Comment on above: Performed By: #### Joseph DUBOIS CMP, , 2132-05 #### [facility] ([id number]) [address], [facility] [address] [place] [address] Hematocrit (Bld) [Volume fraction] 41.9 % Normal 35-47 [facility] Comment on above: Performed By: #### Joseph DUBOIS CMP, , 2132-05 #### [facility] ([id number]) [address], [facility] [address] [place] [address] Hemoglobin (Bld) [Mass/Vol] 14.3 g/dL Normal 11.7-15.5 [facility] Comment on above: Performed By: #### C ELDER DUBOIS, , 2132-05 #### [facility] ([id number]) [address] [address] [place] [address] Lymphocytes (Bld) [#/Vol] 1.7 10*3/uL Normal 1.0-3.5 [facility] Comment on above: Performed By: #### Joseph DUBOIS CMP, , 2132-05 #### [facility] ([id number]) [address] [place] [address] Lymphocytes/100 WBC (Bld) 18.0 % Normal [facility] Comment on above: Performed By: #### C ELDER DUBOIS, , 2132-05 #### [facility] ([id number]) [address], [address] [place] [address] MCH (RBC) [Entitic mass] 31.7 pg Normal 27-34 [facility] Comment on above: Performed By: #### C SILVINO CMP, , 2132-05 #### [facility] ([id number]) [address], [address] [place] [address] MCHC (RBC) [Mass/Vol] 34.2 g/dL Normal 32-36 [facility] Comment on above: Performed By: #### Joseph DUBOIS CMP, , 2132-05 #### [facility] ([id number]) [address], [address] [place] [address] MCV (RBC) [Entitic vol] 93 fL Normal 80-100 P [facility] Comment on above: Performed By: #### Joseph DUBOIS, CMP, , 2132-05 #### [facility] ([id number]) [address], [address] [place] [address] Monocytes (Bld) [#/Vol] 0.6 10*3/uL Normal 0-0.9 [facility] Comment on above: Performed By: #### Joseph DUBOIS, CMP, , 2132-05 #### [facility] ([id number]) [address], [address] [place] [address] Monocytes/100 WBC (Bld) 6.1 % Normal P [facility] Comment on above: Performed By: #### Joseph DUBOIS CMP, , 2132-05 #### [facility] ([id number]) [address] [place] [address] Neutrophils/100 WBC (Bld) 74.6 % Normal [facility] Comment on above: Performed By: #### C SILVINO CMP, , 2132-05 #### [facility] ([id number]) [address], [address] [place] [address] Platelet mean volume (Bld) [Entitic vol] 9.1 fL Normal 7-12 [facility] Comment on above: Performed By: #### C SILVINO, CMP, , 2132-05 #### [facility] ([id number]) [address] [address] [place] [address] Platelets (Bld) [#/Vol] 265 10*3/uL Normal 150-450 [facility] Comment on above: Performed By: #### C BCA, CMP, , 2132-05 #### [facility] ([id number]) [address] [address] [place] [address] RBC COUNT 4.51 X10E12/L Normal 3.80-5.20 [facility] Comment on above: Performed By: #### C BCA, CMP, , 2132-05 #### [facility] ([id number]) [address], [address] [place] [address] WBC (Bld) [#/Vol] 9.6 10*3/uL Normal 4.0-11.0 [facility] Comment on above: Performed By: #### C BCA, CMP, , 2132-05 #### [facility] ([id number]) [address], [address] [place] [address] COMPREHENSIVE METABOLIC PANE Vijay 07-20-2024 Albumin [Mass/Vol] 4.4 g/dL Normal 3.2-5.3 [facility] Comment on above: Performed By: #### C BCA, CMP, 59303-1, 2132-05 #### [facility] ([id number]) [address] [place] [address] ALP [Catalytic activity/Vol] 80 U/L Normal 39-130 [facility] Comment on above: Performed By: #### C BCA, CMP, , 2132-05 #### [facility] ([id number]) [address] [place] [address] ALT [Catalytic activity/Vol] 21 U/L Normal 0-31 [facility] Comment on above: Performed By: #### C BCA, CMP, , 2132-05 #### [facility] ([id number]) [address], [address] [place] [address] Anion gap [Moles/Vol] 11 mmol/L Normal 5-15 [facility] Comment on above: Performed By: #### C BCA, CMP, , 2132-05 #### [facility] ([id number]) [address] [place] [address] AST [Catalytic activity/Vol] 18 U/L Normal 0-41 [facility] Comment on above: Performed By: #### C BCA, CMP, , 2132-05 #### [facility] ([id number]) [address], [address] [place] [address] Bilirubin [Mass/Vol] 0.3 mg/dL Normal 0.3-1.2 [facility] Comment on above: Performed By: #### C BCA, CMP, , 2132-05 #### [facility] ([id number]) [address], [address] [place] [address] Calcium [Mass/Vol] 9.6 mg/dL Normal 8.5-10.5 [facility] Comment on above: Performed By: #### C BCA, CMP, , 2132-05 #### [facility] ([id number]) [address], [address] [place] [address] Chloride [Moles/Vol] 101 mmol/L Normal 98-109 [facility] Comment on above: Performed By: #### C BCA, [facility], , 2132-05 #### [facility] ([id number]) [address], [address] [place] [address] CO2 [Moles/Vol] 28 mmol/L Normal 22-32 [facility] Comment on above: Performed By: #### C SILVINO, CMP, , 2132-05 #### [facility] ([id number]) [address], [address] [place] [address] Creatinine [Mass/Vol] 0.96 mg/dL Normal 0.40-1.00 [facility] Comment on above: Result Comment: METH OD TRACEABLE TO IDMS STANDARD Performed By: #### C SILVINO, [facility], , 2132-05 #### [facility] ([id number]) [address] [place] [address] GFR/1.73 sq M.predicted among non-blacks MDRD (S/P/Bld) [Vol rate/Area] 66 mL/min/{1.73_m2} Normal >59 [facility] Comment on above: Result Comment: Reported eGFR is based on the CKD-EPI 2020 equation that does not use a race coefficient. Performed By: #### C BCA, CMP, , 2132-05 #### [facility] ([id number]) [address], [address] [place] [address] Glucose [Mass/Vol] 130 mg/dL High 65-99 [facility] Comment on above: Performed By: #### C BCA, CMP, , 2132-05 #### [facility] ([id number]) [address], [address] [place] [address] Potassium [Moles/Vol] 4.0 mmol/L Normal 3.5-5.0 [facility] Comment on above: Performed By: #### C BCA, CMP, 26262-9, 2132-05 #### [facility] ([id number]) [address], [address] [place] [address] Protein [Mass/Vol] 7.4 g/dL Normal 6.0-8.0 [facility] Comment on above: Performed By: #### C BCA, CMP, 73436-3, 2132-05 #### [facility] ([id number]) [address] [place] [address] Sodium [Moles/Vol] 140 mmol/L Normal 134-146 [facility] Comment on above: Performed By: #### C BCA, CMP, , 2132-05 #### [facility] ([id number]) [address], [address] [place] [address] Urea nitrogen [Mass/Vol] 23 mg/dL Normal 5-27 [facility] Comment on above: Performed By: #### C BCA, CMP, , 2132-05 #### [facility] ([id number]) [address], [address] [place] [address] Lipid 1996 panelon 4 Cholesterol [Mass/Vol] 213 mg/dL High 150-200 [facility] Comment on above: Performed By: #### C BCA, CMP, 82963-0, 2132-05 #### [facility] ([id number]) [address] [place] [address] Cholesterol in HDL [Mass/Vol] 58 mg/dL Normal >39 [facility] Comment on above: Result Comment: HDL <40 mg/dL - High Risk HDL > or = 40mg/dL- Desirable HDL >60 mg/dL - Negative Risk Performed By: #### C SILVINO, ELDER, , 2132-05 #### [facility] ([id number]) [address] [place] [address] Cholesterol in LDL [Mass/Vol] 90 mg/dL Normal <130 [facility] Comment on above: Result Comment: LDL <100 mg/dL - Desirable LDL >160 mg/dL - High Risk Performed By: #### Joseph DUBOIS, CMP, , 2132-05 #### [facility] ([id number]) [address] [place] [address] Cholesterol in VLDL [Mass/Vol] 65 mg/dL High 0-30 [facility] Comment on above: Performed By: #### C SILVINO, [facility], , 2132-05 #### [facility] ([id number]) [address] [place] [address] CHOLESTEROL:HDL 3.7 Normal 1.0-5.0 [facility] Comment on above: Performed By: #### Joseph DUBOIS, CMP, , 2132-05 #### [facility] ([id number]) [address], [address] [place] [address] Triglyceride [Mass/Vol] 326 mg/dL High 27-[address] [facility] Comment on above: Performed By: #### Joseph DUBOIS, CMP, , 2132-05 #### [facility] ([id number]) [address], [address] [place] [address] VITAMIN B12on 07-20-2024 Cobalamin (Vitamin B12) [Mass/Vol] pg/mL High 180-914 [facility] Comment on above: Performed By: #### C SILVINO, [facility], [address]-7, 2131-9 #### [facility] ([id number]) [address] [place] [address] POCT Protime / INRon 024 INR Coag (PPP) [Relative time] 1.5 {INR} Abnormal 0.8 - 1.2 [facility] Interpretation and review of laboratory results Abnormal [facility] IGP,APTIMA HPV,AGE GDLNon AGE GDLN ACOG TESTING Note . [facility] Comment on above: TESTS RESULT FLAG U NITS REF RANGE LAB Clinician Provided Cytology Information Source.............Cervix;Endocervix No. of containers..01 ThinPrep Vial Age Algo ACOG Trudy... 3065 01 FLAG LEGEND: L-Low Normal,H-High Normal,LL-Alert Low,HH-Alert High <-Panic Low,>-Panic High,A-Abnormal,AA-Critical Abnormal Performed at: 01 =G [facility] [place] [address] Fatmata Marks MD, HPV APTIMA Positive Abnormal Negative [facility] Comment on above: This nucleic acid am plification test detects fourteen high- risk HPV types (16,18,31,33,35,39,45,51,52,56,58,59,66,68) without differentiation. HPV GENOTYPE 16 Negative Negative [facility] HPV GENOTYPE 18,45 Negative Negative [facility] Comment on above: Performed at: =G - [facility] [address] [id number] Tunnel Worker: Fatmata Marks MD, Phone: [phone] Performed at: WB - [facility] [address], [place] [id number] Tunnel Worker: Fatmata Marks MD, Phone: [phone] IGP, APTIMA HPV, RFX 16/18,45 Note . [facility] Comment on above: TESTS RESULT FLAG UN ITS REF RANGE LAB DIAGNOSIS: 02 NEGATIVE FOR INTRAEPITHELIAL LESION OR MALIGNANCY. CELLULAR CHANGES ASSOCIATED WITH ATROPHY AND INFLAMMATION ARE PRESENT. Specimen adequacy: 02 Satisfactory for evaluation. Endocervical component may not be distinguished in cases of atrophy. Areas of partially obscuring inflammatory exudate are present. Performed by: Patrick Rivers, Mini Baccarat Dealer (ASCP) . 02 Note: Note 02 The Pap smear is a screening test designed to aid in the detection of premalignant and malignant conditions of the uterine cervix. It is not a diagnostic procedure and should not be used as the sole means of detecting cervical cancer. Both false-positive and false-negative reports do occur. Test Methodology: Note 02 This liquid based ThinPrep(R) pap test was screened with the use of an image guided system. HPV Genotype Reflex Note 02 Criteria met, see HPV Genotype results. FLAG LEGEND: L-Low Normal,H-High Normal,LL-Alert Low,HH-Alert High <-Panic Low,>-Panic High,A-Abnormal,AA-Critical Abnormal Performed at: 02 WB [facility] [address] [place] [address] Fatmata Marks MD, Interpretation and review of laboratory results Abnormal [facility] BRUSH-SPATULA CERVIX ENDOCERVIX [facility] Reminderson 06-28-2024 Reminders Reminders - From: Franchesca Gracia To: EU - Recalls Gerry; Sent: 08/25/2023 13:41:26 EST Show up: 06/25/2024 14:41:00 EDT Subject: Imaging Due Date/Time: 08/25/2024 13:41:00 EST Pt is to get LUCY and KUB done prior to appt. Pt prefers [facility]. Appt 08/29/24. Will call pt at beginning of July to remind her to get this done, and will send order at that time. Normal [facility] Coding Summaryon 06-26-2024 Coding Summary HTMLBase 64 UmlqtyapRKx3nMm+PGhl YWQ+VX6BTQGyZ07ktNPt pS6eW1ONFGsURvjoTUJY LIzKIsFnfsGbRE8ryKQv ZXJu IC8+IE4lRVXaLgnzfZQk n9D9tHW3F90rkp7jAWni sPG9OLFkAwVqsjycj9bl aZl9MCxsGrjlMiTx GIIbuY15KVT2pF72Jv94 hCOvjSHgk8yngDu5DtCm NGVqAMN9gIfaPWgal9Xw VZCkB35ivWKgk6D2 IGNvbGxhcHNlOyBlbXB0 mE1rLTihzysbi1tkktsr Dwg1qs68jCUxz8Z0wKX3 F1UyyrY4BSJgoFLt TsaccHMEkC4arhhai8fz ophjYyXiPAJaBNj8IZc0 ZTGqvRpgSvAmUS62BWR0 NBAfvpNtK0HjYDRa rRtkGxI4h6X7Tk7GL0QK UyqrA5LLWMJCWUpjpMF+ XT27uy78Z0WmMbbdIpe1 BGDwQQB0eBG7oN5m JTMoXYilm3R0tBV3T3Np hqZnfj1az8spWBJcKHvi X90teILxw4H9VLDhiYV7 YVBhvZfiWoBpoE14 Oyc+ZBLnlRupc9TnUjvv y0ojk8gvxVm9ZvqvSFLg fmWfpYdyUGD6m2QpWv9t HTYuxJU2mCI1zQ2h JqQcJzS0QCzjP745GdJi qRThPmdzI77xT5TbySQ+ VZEeHdb1LFGvySpdSO9j V4SlUKYgpwkhmLXy iEkpRA3vNYZxdrfbRBAd oE9zPZCjH9r0RuNnXcJ9 UGsgQ3CqBPUqksfcNx89 mH0iHcDhQlR7FCbt U0XlxxZ9SFSraERnJZyw LMT2V48kx8T1EHTeLOTt IQC7sXG3vD6nsYklgpzj bGVmdDsgdmVydGlj DDabXSsvO929CCEweOrg PkNvZGluZyBEYXRlOiAg MTAvMTQvMjAyNDwvdGQ+ HTRxWBV9aHtrKVHc zZDqULxlLz4nuQmtvZbn JN9xEJUvnrmpPCUkgB2g JYXcyCAzmGjzBH7iPHFj lrdlq275EhYkPGQ0 OFRuvEAuX7DpeV8yOiZu VVSbJHTfT4LebSXeAUbo M191QQdgKbO0WGQhqzSg E7KyXWHcdBaiGyI7 y9U4Tv5Ej9NzhpidW7Wt iVRaLpTgOjvaLKk4K9At PjwvdHI+EP07WGCyPI58 TVt9ZTK3lOguBTjo OMErJ8QbqV2aWpVoUQHi ZGRkOyc+PHRhYmxlIHdp ZHRoPScxMDAlJyBzdHls FF9zUy6mOJJeQJYp iBaxqXFpInZlf5wtURJs MKwbMK1utZrcK9AmjLO2 SUVqy1x7Ej53R92yJ8Ei dXA+ZTVwxCQ4jHY0 pD1gBjSlNgM8STleU280 JxXenBIoEawkf7szr8oj pCa0CnF9WBHwuqHukQsz IGR3r5SqUd98L73b IHdpZHRoPSIxNSUiIHZh vVdwqe8qeF3uGk5+PGNv uXC9pDW1cF8nKjShGvH0 MKhtD758OnDrrHZf Wublh3aly1oweIm6PcVi FXYkciAwrAvaIXX5w5Hy An26Q9XliGran9WxAfc0 kc76yIMcm7A8dLI0 N0YcOVUlmcwlvMBzoIhd XC4ePRXokhiwGNZsnG6u KKNlJ5p8NpXcWnJ6OXqx I1QjrwI3BRPopUOd BRGpxNQFhW7fvbhvi7yb hnmlIzIgSHErODj6PEr7 IUMlmIgvUjVwZWB9TkZ1 RRY4uZIvbX4hmVif jqgrvO4yQgr+JAV3cYAz aANGIQ1bEafvfIH+PHRk QCH0zKxfRQhqYRVmkQ7k NRDcL7w0VqIzZzK0 PBxbR9LdtkF8QBBrsCHb KCLqmZMGbJ0tqfaan3kh faobFeCaJLGiWNo8JXd2 LWFsaWduOiBsZWZ0 ByR2RWY5mLZqrK7hvDmi tcxqvZ3gGzb+QmlydGgg NDE0WNz8D6RqNah3YGXe fZcwVQ1ykDOrAYxt Ww7lhKnjkPptPZ1rUFRc pjych401RfAxc2ajAWKr gRMsYDnbNNT4Z18ge8J2 EOZcFYFzNUF6hYU8 vY7cuRytzecdsXNmaIba qvPysHyhTOlrQRniM369 DUSnuTsyYuVuOJo6L3Mo Jxd8DFKpnFcdGL9d tKSnRKvbHg6exHlueBib NW3zCSOvywqnc416RmGi y4hfZXTcyWZmOOqrCIC9 J27vy9G6MERcFGWc FCO1gWM8aT9ugEmgazuj bGVmdDsgdmVydGljYWwt TZdmD857GDGvrYoxIdAx uCj4O3AmDwr6TBCt yRdqOK6cjLYhTTcxZw9l aMhirQamKP9oURCbgytv m539UgXaq9bzNJSbsLOy VUupLSC6M97bk0O0 CDSnTCWtLYT8aOR8aH5a bGlnbjogbGVmdDsgdmVy xApbPVuqFWskO813YOCh cDsnPlBhdGllbnQg EStmGPc7S5AzSdkltAN+ SS49TLKoMK96yFHnlDLf d7ytvZs8NrNrOBXmMTA0 lXpgNHizh6TxHDSu G83pyITvo0Q4DOCdfYiz yQAfAzOcrWU4wM0hKXhc grlxk1qtxnufKlrmf4ay ip11tK17R27vAOuj ZHRoPSIzMCUiIHZhbGln qi9ruC7rIh4+PGNvbCB3 zDB1mZ1wBALxJnQ1LIqj J942MqMjhYNjWldo h2nof6kdfHz0KyM2XWNe mxLsrZugZNY8e4QkUn40 G07zJBfuWUDxUWMoQUGr ACIvfHgyee1kpQ6u Ii8+OMOxfOP4pEQ3hD2f XkPyUfD2WXegR304RcCr vRDlKbbiC08mV8IglYV+ TEOmLmf7VXXhgKqp IB0czHMoCDvxHh8tNFP6 WnNuTgXqEFjhL6ByCXUg sqkzfoogvVH3WESlRASx lE68Ft2saWxbNDPe lOLMyO1zinups9nrmyya NvEuTWSwQNe2KIv3WBHs rDqnMgWqMTW7CgQ6WFF1 eEByaZ7zhZwnqpfm wO7cJ3FeAYQhesthSs21 oR8gWhTeYeS0KAqxIeh+ HWmPWIjmA7IFCDzlIA1F FFPRMA64JC50tOUe p6Y8bZK7V1TtFWTffvvg rtpgpBZ4SOQfUDNfjT81 gZBeYYiwWn1le4G3i004 XXDiOAAdzC06Ea8n fFfiMZQfgOSNpA8vwosb g5kngjxpOzVmQEWkOCa6 RZf5YPSvbNpsWeSvOFI0 MhJ6NVM4nKZhsX2u oRerxjtyjU0qGqe+MDkv CoIhHEo9THstpPR+PHRk HFS3kVdmFAzwYIHlqC3h ESDlU4k8ZzNkCeF0 REbuP7GsWTXhvkedDy41 fH7hGbTpSnP9AAjgP9Dt jhU0PZWiqCPuDZsbJOG3 N49pa7I8FURrONXv PCZ6hGV4sH3ieOgpkxhy bGVmdDsgdmVydGljYWwt WNtvE161PQZaeNlfSdBr CTjwBXJfEA48TK64 lVAtg3D8cBG3Q7DyPUPp czdspgvopKF0AIHaWEHw rD41hNSxZJlfCm4zo7W5 w968AATmAUFpgH49 Ut8viJuuXKLpvKSMaI9q tvhnf0swiehoChHlVZPe TTs5AFa3IRMblHccNlKf HPF3PdV4QBW4oPCy cC0zeElerdkqdF8zRjo+ GrPDAPoJVC13MV48lACc l7U7dSR6J7PlUURsdumz ymarfAA7UGTyLZPa pU36iKKxVSjsSe8jd0M1 o516YRTuVLRwyW08Jx0i wYsoAHSskHSNuI6qehvg q4kzfjruSuIgLBOs OQi5DBf1NWDqpXiiBjGc KRQ1FuQ1GZJ3wGMneI1r vZhcfbrgqQ5zKck+RGF5 IOS7vludrav5Z5Jy PjwvdHI+FP80CQAcDJ93 oIWuaIYdj3vwoCt1SdDu PHLcCAX9cFpkDJzoh7Yk REIrS15btIFdq9G6 IGNvbGxhcHNlOyBlbXB0 mZ0pGYnobsiff2piargo Vaoas9usoy46iZ32H98o IHdpZHRoPSIzMCUi JNXyuNobun4ioZ9iCk9+ IBAdeXN9iDI7aX0zIwYf QjD5SZqoB802OnQmlHKp Evccx6xak6mnqWp2 IjIwJSIgdmFsaWduPSJ0 v9OeKg22S81sFZuiGVEj BTOqLKOgVRKsdQisgd6i sK2yBk5+TR3un7un yi18aF34tED+PHRkIHN0 bAvbRQdkFWLowY2qLUix WhI7ZQCsGgZoaQ21yAFu WVdjBu2zeAbmuJwn IC6iCFXnxdito893VtGr l2jiFVZdlMEkDSgmLMW7 E37jx4G1MCOpVTStOJM5 fIB3eV7rfDkekfnb bGVmdDsgdmVydGljYWwt OXusR437KMHoxRqoLcUx hNKgI5aeyrMLSQ3pXepy dGQ+GPNyORB1tHkw BLltIJEmiJ2nQKTkW2i5 RdMgEbQ4HKdaJ2QytwA3 VJXelQPpGOAmrQBDwC4r exxiz8mdxwftBnFq TZMeKJn0EFc5YPQhzMbj MyCnVMI7VgK2UTX3iQKn aM2utFrtwxjgkC8gNha+ RklOOjwvdGQ+PHRk YMC1wHjrAIhqEAVsvJ3e BWRcR8v0FbUdTfM3AKyt G3XpliL4GNQefDPtBSSh yWQRbF9fjbhcu5ll ggknMjKbHTFiGGe1VXk1 WRJflEqeNzUgYQY6DzQ9 RMY5aNRyeI1nlHtqhssd qY6iHaq+TVJOOjwv dGQ+CJJpYIL1xIhyJOeb LCXzdN3lSQJkT6u2MsUk UjW1UOgnI1RgjdB1CCSb jADpZFPqvCDGnX1p nhpga3uujgvtLjZfFJIq EKg8LBr6HPZqnNhgFgFp ECE7UyC0ZIF5lSTukI1d fZyxotxbxY0eVpa+ GGO4ZYR9GZ92BA83L1Cy PjwvdGFibGU+PHRhYmxl IHdpZHRoPScxMDAlJyBz sHmqLV7gJp9fILLp LWN (more content not included)... [facility] Consent Formson 06-19-2024 Consent Forms [id number]# 1.00OTGTIFF [facility] Intraoperative Record MAGR Intra-Op Record Summary Primary Physician: LINA SCHWAB MD Finalized Date/Time: 06/19/24 13:11:09 Pt. Name: NOEMI BRAND/Sex: 1960 FEMALE Med Rec #: [id number] Physician: LINA SCHWAB MD Financial #: [id number] Pt. Type: D Room/Bed: / Admit/Disch: 06/16/24 [...] Entry 2 Entry 3 Case Attendee Troy RN, Ev Mendez RN, Sara L RT (R) Role Performed Soft Work Cigar Machine Operator Soft Work Cigar Machine Operator Bull Ladle Tender Time In 06/16/24 07:59:00 06/16/24 07:59:00 06/16/24 07:59:00 Time Out 06/16/24 08:22:00 06/16/24 08:22:00 06/16/24 08:22:00 Procedure Radiofrequency Radiofrequency Radiofrequency Ablation(Bilateral) Ablation(Bilateral) Ablation(Bilateral) Last Modified By: Ev Bailey RN, Diane RN Kokinda, Diane RN 06/16/24 08:22:09 06/16/24 08:22:09 06/16/24 08:22:09 Entry 4 Entry 5 Entry 6 Case Attendee Iveth Anderson RT (R) Love Winkler THOMAS F MD CT HOISTING LABORER Role Performed Bull Ladle Tender Scrub Personnel Surgeon - Primary Time In 06/16/24 07:59:00 06/16/24 07:59:00 06/16/24 07:59:00 Time Out 06/16/24 08:22:00 06/16/24 08:22:00 06/16/24 08:22:00 Procedure Radiofrequency Radiofrequency Radiofrequency Ablation(Bilateral) Ablation(Bilateral) Ablation(Bilateral) Last Modified By: Ev Bailey RN, Diane RN Kokinda, Ev RN 06/16/24 08:22:09 06/16/24 08:22:09 06/16/24 08:22:09 [...] Labeled Other Concerns n/a Addressed Time Out GumSocorro cortes RN Time Out Time 06/16/24 08:01:00 Participants Ev Bailey RN, Che Downing RT (R), Iveth Anderson RT (R) CT, Love Winkler CST, LINA SCHWAB MD Last Modified By: Ev [...] Outcome Me (more content not included)... Normal [facility] Inpatient Patient Summaryon 06-16-2024 Inpatient Patient Summary [place] [id number] Patient Discharge Instructions Name: NOEMI BRAND : 1960 Patient Address: [address] [place] [address] Primary Care Provider: Name: Provider, None Phone: After you are discharged if you find you have any questions, please, call [phone] ext [phone] to speak to a nurse. Discharge Diagnosis: Prescription Information: If you have been given a prescription for narcotics, seek immediate medical attention if you have any difficulty breathing or any sudden status changes such as confusion and sleepiness. If you or anyone you know is experiencing suicidal thoughts, mental health, alcohol and/or drug addiction problems; contact the [facility] 05/04 Crisis Hotline -Text [phone] um [phone]. If you received any narcotics, sedation, or [...] business decisions or sign any legal documents [facility] would like to thank you for allowing [...] tablet, disintegrating) (more content not included)... Normal [facility] Preoperative Recordon 1 [facility] Preoperative Record [facility] Pre-Op Record Summary Primary Physician: LINA SCHWAB MD Finalized Date/Time: 06/16/24 08:28:57 Pt. Name: NOEMI BRAND /Sex: 1960 FEMALE Med Rec #: [id number] Physician: LINA SCHWAB MD Financial #: [id number] Pt. Type: D Room/Bed: / Admit/Disch: 06/16/24 [...] Signed By: Carly Mccall RN 06/16/24 08:28 [facility] Patient Handouton 06-16-2024 Patient Handout [facility] Progress Note - Provideron 1 Progress Note - Provider [id number] 1.00OTGTIFF [facility] POCT Protime / INRon 024 INR Coag (PPP) [Relative time] 2.8 {INR} Abnormal 0.8 - 1.2 [employer] Interpretation and review of laboratory results Abnormal APR System Coding Summaryon 06-05-2024 Coding Summary HTMLBase 64 LdodakreJPj0qMm+PGhl YWQ+UQ2BQREoO20cgFHr fZ8sN8NVGOwJWfviIHPB HOlMZzRgxhKjGE7wdXOf ZXJu IC8+YT7xBNJyEpezaVXp y8B2xAV8U44ozx1iWImx jKO5NVJnSkOqzwczl9ti uMo4JOtgRyfcEuNr YEBrxB83BZZ7mH31Xr22 iDTjyAJze5mabLg0BhQn KADyCPN4aYlqZLwfq1Xs AOZsR58vrKDpm2K9 IGNvbGxhcHNlOyBlbXB0 yD9mRWtbvoqbx4fbehwp Gld1ey96lMQlt7T3qDV8 H7GpreC9NNJfcVQh CsdalGTUdC0glduhn9mj bvcdFsWbQLZnNZz2KAu2 METalFvnDaHrBO25QPF4 SIJmlmJdI7CsXWBv dNokAxD4i0W2Kk5TF4IU IhpnC9QLTMNVPSetsLV+ BT82ab87T4UcWgitJed9 XIFrNOD2tMR9lW6o KBBhVAxnr5B3uTK3V8Hb dcAlac6ih6ebNCXdBVmq E42scFRnq6E0FLDnwJW8 YHQrbOpbEqYdhA79 Oyc+WLGkhPgmo2ZmRcwp o0eap5pjyDg7DmvsQUYb qsNmcZiyIWC7u7OdVo8u WCMnuKG1fVS0bV3p NdKcInP6BTmiO346HpXj fKNpKqzsL47dY2DrtFV+ GLLnCcn7EKHrcBxqEJ5b J8XtIQBryujnxBMk qAhaCE9uOKOavjwuCISw zU1nVCTdU9m4BuWcPiB4 OUkyM1OkZEVshivlXx62 eF1mXmXaHbF1PZcp N9EnecA4PZCxlJQnGYoa NKX1S37ql2B7GSByQVNr TCS6vQB9hO9puMoveocm bGVmdDsgdmVydGlj PMlvASkrU759XQPbdMvy PkNvZGluZyBEYXRlOiAg MDkvMjMvMjAyNDwvdGQ+ XSHjOSX3kOdiXHEs uNQfXZojOj0vtKztaBsj SG9lNKCvmtvkGLIryY8h XKNilUKxrGqfQC5wHABk ljepv629KtChZYI4 YOQsbQEyI5NidH0nOjYe GREzRQEjV5IwhDGgGLfq U956ROrmYhR9HNQhgbRw T7JhCVVuiHblEsA3 w6Q3Ve5Ob8GleiosF5Eq yXMlMjNzJlpgCOw9K5Ej PjwvdHI+XD23STEyHG23 RTw8EHB0sXdwPHeh WRJvB3ZwyV7hNvCwHGUr ZGRkOyc+PHRhYmxlIHdp ZHRoPScxMDAlJyBzdHls MN3aNe0rMRYpVXMn eNaikCNaInPtg3ioMGYs FJeeWJ1szMvoJ3GxjOI0 SSVks5e0Bt16Z53kU7Of dXA+SCXbqMK9uMX6 cP4qIuDnHnI0RAlzE744 IwIlsRVgRtvcn4ruu9se pFj3YvL1QCUosxYtlYij LTE0o0BtJt74B35h IHdpZHRoPSIxNSUiIHZh uIwpiu2soL7nZv3+PGNv gZE9iQX4xC7dSsJyJuB8 KUbhY331EqLriZSk Qjhqx5xem2ymkXi3JkOe UWIgodHbkLzaHMZ7c5Cg Oh67E9EsbVldm9IjOjl6 oe52gOHuy0D0fLH3 S9PsJXRvclaqzLHluJaz KJ6vDWMblfofUPYclF3e NAMxO9i4MjEvJwX7CEhi F8KcovW9LSGgyDXo UXWodUOCoX9uxcity5gf qdbnHgCqGCFeIYb8XAm5 FRRvrHavKtXcCAF6EfD6 IDA9cBSumL7feBjp qrhxoT9nKlz+KEZ2bLBh oGOOGQ9tYoymvVP+PHRk MZR8uByeJSniOSDsdY0n DIVzB1s0IkJzZyO8 KTmvV2LurhH7ANZkkBOv GKVnhGFDdX6dbjuai1cn sjzeXxIoAIZuAVz5TAk0 LWFsaWduOiBsZWZ0 XaV1LMA3fTXpmJ4mdAhy qxecfY9wQby+QmlydGgg CLT8DCl5E3SuLxr8WSZe oVbeBI9klINqSDao Sy6noAhqjApoOG8sGAMc gqoic412IeYpj9njDGOq qXSxDMcmYIC8B25tz6H5 UHMmYICqUHM8zRN1 tS5vjHuquwejtQQvnAwl zeTuuFeaJJffYHwrY561 AVYwkEvtPqFyFAq2W2Lq Jjf0DOVnvEviYM7n yXIuTAkaUe2nuSfqoHva GZ1fJLMkchcci248XaTd x7jtMQQvaSTkTXolSJP5 K44fo9E7TZEfGSEv RFM5kAW8vR0obKukihvj bGVmdDsgdmVydGljYWwt RYweV342MPBotLnfHnHz oYn9C0YfFxe6NWPh gXmcWI7hbRLtXCmeHs3h fGagtZelDU0zLWFqzdur h960ZcTpk3hbZNQtuPOb VIzvMRM4H47ag3J7 WWGlXOEjKUS8yRF2oF5m bGlnbjogbGVmdDsgdmVy gTwgGWwqHBzlL459EAZy cDsnPlBhdGllbnQg SBswLIm5C3EhQjzsfOO+ NR40YGVxLX26nYTzkHCu e6oifEo6SsKvFLMnYLD8 jXapQVyql3VeSJZt W25geUMwk2L7MEFzoAwj dSOqUaBcaPQ2rG4tGKez bikyz3uwixrzHchwa5nt ch81nJ71Z03oBIdw ZHRoPSIzMCUiIHZhbGln la0yjK6kEn0+PGNvbCB3 fTN4wX6qRUWyHmH2JHkr F246XhKhvVNdOojj v2oxf7owlCv8ZvB6EVQo umCwlNjjKVG8m6AwKf79 P46fCVsjFKIpRKPiVSQw ATJexHhzsa9twP8p Ii8+WOUwaKW1qJE1yR2l AmYeOeI0BTtiH359HrTj fZCnMrbcQ78oT1GvxDZ+ TGKrNez8KKHknZet FS0wdIMoKVenTv4aHKA3 CfJkNjQySDsgV9WcPWXn kktzgwsxiQT9LNTvHRKa nG22Kl8gwOwnCYUa dOXAjP6vkcttx6klfxop HeBrQZEpTPp5GJj6DUAq aNlkRyMnODK7GmC2ICG9 yKWiuO0kjLtgxrwh nM9xK2BaOVLwoionNu67 iK8sBnZuXuL2CUebHfo+ MEbKSYwsS5JVIMimTY8P OKOHDA18FE76vJVk w5W1jED2O9MaSBWfegiy bbeefTI3GTCdLBDovO75 rCOiZJtbUa1tk1Q8e910 MLYbADSikS71Ip1i rKviGYMjrUKFjG6dvtfb x4cesojbRvJpKQNbRAk6 FDk4DFOdcDceShTzMRU5 VnH0DGN8bOKorE3e cRpvuutkxM3cUvr+MDkv ZpAeNBl6SYrtpTO+PHRk GBE1eXrcOGuvJMQsjP6o GTVvX7m6OgZxBxE7 BGmgJ7QlUQWlptryFn69 bM0oCyWxVeW2NUzsX5Zx jeG1FYGtoLLxZRhsVOS9 P08xz6K1KOZyYAHi ELN4xYQ9dP6faAznezzz bGVmdDsgdmVydGljYWwt GYjbW862QSDxcRspEyJk ESmcKPJxKU25HN82 nOTkl2Q5cFA8M4PjLIQr pxvdgcgiwMB4SVSfVIXc rR71lCReJPgqZg4to4C3 x999HNGsLLPvqG91 Fm1egEcjBMRcvLQIeT2q lkkcl7kgbvhrMxQpYQAn KVi4CPa5KMIomZpxWxIl CFS8YmQ8GDQ2hHIn lO8qlRdqfntoxB5uWqb+ QxWMHOzVKL81NR55dIWq l6L7mFE0R7TyZPTnxaqi gewqsGC7DCJvECNe cT63yIMoOVsaUx3bg5D6 g598LVTvHUDhsK21Cp3d oVhhMDKaaUXPdM5qirsh v3yfzsjsBbBrIQSc KSy3AUq6AGYndZaqCsJf EPN5WdR3BIA1sJWrvO1i zCljxtnatC7rJbi+T1A8 H9YkKerzrIO+PC90 LYRfLT55oJCicPUte8qo tAg8AbJdVNNkQLR9cWut EDdmr8MkWGRnG13ypTFz b9C7GTTkxUzctRKr LdCrnHD3uW4aXXtxllrs c8sfqxcjKuxmk6donk08 sA74S02jEDgaSUXuQFKn PAMfAFCbrMvxdr4p oQ8rSu1+IIGdcLT7aSS6 qO7mHnAzCqB8WCtvJ087 AiHjzZGnBfhpr3fqh9za qAr9YcUwOYEglfIk qVarHWA6o0WvXu16P84g IHdpZHRoPSIyMCUiIHZh kVihvg7vpP2yUd0+PC9j r9ovwl85bX03cVV+ QOUuOPU7mAifQIlaPHIe cQ3lLGsrTkM4NXFePqGt cV80jTWkRYsfCh0lqMrk cIfmCZ8mAAWfaxzf b493RqCls4fmNCQleYRo BNuhYKV2Z49jr7E3TMSf CAXbCEF9mPS4qE7afMbk bjogbGVmdDsgdmVy sQoeOVqjUAogE123DHXx iVurYfRuwUBoD3bsanIR NT0aTwqhwDP+PHRkIHN0 eVzpKWwkQUIsxJ6p QBHaK9k3TbZzHmY9VOco S3HxyvI0TOKgbJPbFJYp aGEMbZ5xkfria0xrhnbe NkByJARjTDl0VRe6 UFKmpOekZaCmZKV7DmC4 LXE8uZMimI5hsOtzmsnn hS3qElh+RklOOjwvdGQ+ XXAxJZN8rFbuVXwx IIZckS7oWGDeT9e2NxYa HmJ1ADffD5QihxV0KWDf uHAoPLZneNGOsA6fnlui w9viybftDxOiKLSc EVb2CRr3JXIifUjeWoFd ZOL4UtC2ITG3tNAsvW7p uGdmxgirtS3xDap+TVJO OjwvdGQ+PHRkIHN0 vAisSMldUQAwpN3fMKUa I8y8FwIuUjR5JJpfR4Wn ncV7DYKnbEEtDDGujLKB zN9xlvubg8qoupar UtZoIQDoBXc9ZFk4QCOc rHukMeLuURC9SfD5XPO5 vGDbtL3wgDtncplruY8z Oyc+HHA1KQK2MO84 WG09S7ZsBloqkLDvzSA+ PHRhYmxlIHdpZHRoPScx AMOnQwOvxYqkOE0bLd0g ZGVyLWNvbGxhcHNl OiB (more content not included)... [facility] Coding Summaryon 05-23-2024 Coding Summary HTMLBase 64 DjxribpwOWx7wLe+PGhl YWQ+AW4ZENDcW34yvJFp uE7vC2VLGNqFIjtqMRBE GKqMGvGawoDmFR3miWTo ZXJu IC8+VR2rRLSiApxouBYv k0V5xDU5T76fzw8yCWrh oWA4SUCcAwBxwvygb1ye eAk3FKofTkfpPuZw SCXyyT54HFD0eY10My81 lJKayGFiu9kwqWk1CfVr HYJlKEP8aIfjNHqsu5Sx TZTkF38xtBEio7E7 IGNvbGxhcHNlOyBlbXB0 lK2iLRwuurbhl9imgreg Rgf6gw28aUUxk0Y1bOR0 E9WjkcG2SOTkyYIs FixyjBOXmG9lghgdk8ec cmqtLjDeSJXiFEl3XNn5 ZZQusKpfBpSuWW80JON3 CIJuvrKdM4TgEMWd nSurEqC1u5T5Et0HI8VW KzlvR9SADKBXLHlguWF+ YA10iu66S6BkSvcdZby6 KCXiWXL6kSE9kY3g EHBvFNpjh7G2tBJ9F9Ry atRpkp6to5weGFGnAYjf I42cwLLot6S8AVBdnEH8 KGKecKoqXaLhsK73 Oyc+WFKgiPjvy3YfLfkj w5cjn5cyyNx7LdymBHWt wgGlgCsyXRY8q3QeTz9e XPTniNJ1cGF6sC4a AhAhEaA4YTyfD383UmTg fELiZkokI14cM3ToxDX+ HORcCda3MILczQieKQ1w W4SrXWYhefoamLGo rMeeBD6tONRxdhcnCDZw vD1mZDCfF3v2YvYgMxD7 DVcaF7YbSEDfyczoEz82 uT3bUdQfJwO7DMiz D7HamjT0FBXnsRVlMOjc VOF3P96my3A1PJCsJWJm OEV8uIA2mP6xfRfigwxv bGVmdDsgdmVydGlj JDtgUTbsV457TQKeaNhq PkNvZGluZyBEYXRlOiAg MDkvMTAvMjAyNDwvdGQ+ NPMrUIG3hRnrPGTw vPJsOFjeDx1vuAuuoGfs RD8pHDNspfqmUCKibS1d QTEuqBQcnEafCG0gVILg ghcxa567KmRqWDN8 XBRjyRTfY9UuqR6kHiPt EUScURLyL6JbxEEsVDvy Z643HNrbKuF5IXBkylUn G6SsAQOljGsfWdF0 p0Y3Uj8Dh9NvfdafM8Cs lZGiIcZiMzmsOHd4M2Ws PjwvdHI+YE34VFMcOV69 VRe6MDA9lMuuDCmy KZBvU8FzqH9wCwOqQIJu ZGRkOyc+PHRhYmxlIHdp ZHRoPScxMDAlJyBzdHls AQ7yYc2qQPBxLEWr nKggdWBsPhWsw9suZPEa HPlzAZ0qfSdhD3LvqVO6 DWNcu3o3Jt48F05oL3Lx dXA+XSMflOI1gKK7 wU0sQhRdJwD9FYijG815 QbHnkHViXsldm3rff1uk aLl2RqV5OSAcvpVyxLrg WWM0v0FeVv04C40e IHdpZHRoPSIxNSUiIHZh zBgitr3tyZ3gNt5+PGNv aXV1tXL2tY3aZqAaOyX6 BTnnT300OmIfnSJq Bpmzm0ban1itcGo6CzIn UFVuxiIuxLtvRGO8o5Ct On19C2VinPotp6SjImh3 ys15jOQqq1U1nKC7 E6VtEKGbgruztKYgyEdc UZ8uIPXwshukGFJifU7g UNHtI3q9UvVgKcK2MPue Q7UprwA3ZAWybHQj DZOnfATVpN5xrkajd0gl rsyyWgKwQKVtGVd5SNe4 NYLfnJxyUmGjYYK1OkV0 CLF4dFIywH1utNty wpdpaJ8pLel+EKC9kREk gRGAUM5rDxelgNT+PHRk QBX7gSsyXXdcZWInpA8s IKHvW6b7CkMxCnE2 RLtqE9OspmK2ORNviXXf YGXolFXRcR0yqvgta4xa cdetKdMmGVQsMPm7NHu2 LWFsaWduOiBsZWZ0 IbA4HIH0vZKqzM9qaYyi xoqurR2pCdj+QmlydGgg XKQ1IFg5Z6WjIcf2BEJu oAdkIL4rqOTgZTyc He0mrIwpqOnbQH0fKDZt nxzdc493DjLat0qzJGGt uLXlURgcYOM0K06iq4M5 POHtBLOlELO9gZY8 gI8nfDmsfwfdpMKrxFni miBrfKiaAYinJWsiI594 NQTabJinYzMyYJr3Y0My Llb2QTNxqWmxPS0r wBLrTLefNx1lzNsplFcl XU0eHJVrhycnl314TkXm w2whPKHvvFTuLOfsUFP1 Z43rj2H4XJPfGZTf OHD5fNO0aT3inKzsaixu bGVmdDsgdmVydGljYWwt KSumG506OLLgrOpaLfRv tOy6C2QuEyt5WTAv rMlbNZ2dmSUvGIchKt5n xOrtwLifCM0oAFBxdmmz f222BcGzv1byFWNmuCYc AKunFSG9R26ui5M5 JNYmGAJnQWE1zKQ1dO0q bGlnbjogbGVmdDsgdmVy kDjuBNflADueU639JMAd cDsnPlBhdGllbnQg KJatGDr2Z2EmVclznYO+ MW86RQGfNS32cDOfjHRo f4dbgHp7HrPaWXZzTRQ4 iZvcOHnat8DcVVRn Z17auDMpo6L6XZNezDlx jUKzFbAbgTV8bO5qDYrs zavfl7uzrqbbHuhfp6hp vh08dH87E63qMDyu ZHRoPSIzMCUiIHZhbGln qv6qwQ3mAm3+PGNvbCB3 hIF1kV3tHQZnWfQ2YFiu T659QyYneVMeJwml h6igr6tphOg5RpO8YBNm knVgkUmhSRL4t8AqZx61 G44lBBmeBHHtZDPpQURy ODVtuRldxz7dlW0t Ii8+SLYroZY2vGJ1fV8o QfZkRuC0XNglY636RcBl hPYcNxdlK94uG0YsqMJ+ MNCfHnv6GSPhjOyu FF8huHYhUOibHo2sIJR8 NhMrSkBcNLyzF7BiWIGn qamojpqieII8ICXyVKOj dQ57Nq3pcBdgJPVw wQPOzM9jwmnpv2pgwewy EeWeNDJsLWm0NZl6SRIn rQqdIrNbJUM8IhJ9WAD8 tOHlkC4ycPtzbklk mV3sC7UcRCBewypgBo21 pP2tNkUlMxB6EGjcFfm+ AXdAWAtmB8RAWSxqSV3F QLHBQL77XC89uYNb i6I6bLS7B3TpNNIudipq yzszsDZ1EGXxHFLtkH69 cBRwJVxsVc6bv9O0c058 HVOiSGQayI55Xb3u wEbsOIPitZJOuI4bmuaa n2ltfkwoBhCqSUAeHNw0 KSm2BHMwrLghMgFoXAF6 LmX3OWJ2vKEpiZ9s yCawdecilX9xUvs+MDkv IhNaJBn9QDwykIQ+PHRk HYU4iFgtZEmlIOCzpJ0f NMKgQ5e5YvUeHeH0 DOeeK2DqDMAvffzzUu63 jY1rEePnYfK3NAjsK0Op adB6TGDddKHuNGzgPWO8 X28zx5C6BFMkIJRd OKE0yML6sH9etLvttnjk bGVmdDsgdmVydGljYWwt FCjkM495OSKvrPoaWhZj EDoeIBMzID70VW60 rZPoi4N5lAG4E8FnZXOa gfyhqdgqoZJ1NDRkTDIs rQ13vOErJFdyCc4st7O7 a158ADBmCLNlcK77 Yn0vyUmqDSNtvMSZxI6r fbbtm8lnacvsPzIcTRTe TCm2ZBa0AIEjjTvwPmBb DCE2KiN2ABQ5pWFd fZ6ycTbidpjyaC4xKfs+ KuOCRDyBDR65SS23wLDm t7L7rWG8J2FsCQOpvdju unrbeYL7WJTcRSAj vO44tWZnFEzeSj5tg9M5 c397MUBtBNMaxD87Tc4h yEinWXBsyOLWaY5nsnvu e2bsldbrMvSoUKYf KTu1KUx3DTPgdLfgTrJl YJL2HsM3NVD3fJXvxR9v eJuvukbehK9jHnm+RGF5 SFR4htjqegj4M4Eh PjwvdHI+QY46QEZnDC46 iYRytLLup6andOi7AnGa KTDsKJY1zGwgKYvjf3Mm XLJdS09lgSWlv5N0 IGNvbGxhcHNlOyBlbXB0 lD1qZMepzvroz8ecjona Ldxgs9spgz36tF53N18x IHdpZHRoPSIzMCUi OJEntFliey5ykN7rDo9+ DMPxtXP6zCD1zE4fHpZr IyB9DDphT179FqDjdNSg Dxapj4niq5dyfVt2 IjIwJSIgdmFsaWduPSJ0 l1LjYp65D29vWHztLBUs EXQyUMEbZKGalSuyra6g aK2lAk4+QU0jc9dw xh80cN99aNJ+PHRkIHN0 aLdwCXjiPLMllW1lTUjv ZoG3KYXpKtCyyC58oDBm UNqtCq3mrEcthYgy DK7yZULumkooe055NkOu t7lhERUapUFoLKbcUZB6 N88dn2B4XDSwRCQdFWA7 rOX6zW0diSizhezb bGVmdDsgdmVydGljYWwt FAwpX840YBFcgPyfGiVm wNFhH8oxaqBVCU3aRwmg dGQ+XYUmNXJ5tXfn TXowNXKixU0qOKUaG2v0 IqCuXbR5AYngR0GknlH4 BFCryOYiBGEsuAQNiI6f mvdmz6bymuwyTmQi MUKzFNh5CSm7FKXguFju YrWyFMG1NuN1OJT8pKQx dV8edFmuoljxqP8iNwn+ RklOOjwvdGQ+PHRk QLC0mUjhRLedKBObgA5y NXQyP5h2FzAjJtP9QMgh H2HdbpC0FKApfAKnOFQi lDNFyV2hiqitc3qv jxxiWtFtXDLkXDc7SZs9 RXYgdEpePvCdBJE6BmE2 ICQ5vTLbgO8uvSkxjapi xH8pRsk+TVJOOjwv dGQ+UAShEVU9xVhjMGla MFWjdO7aNMOnL6c6CbHf WaT1UMlmV2TatzE0XICa aDDqHVUocRGOmD6y ukxdt2chntvzBnOuFTDp CZu7NCu3YWAolGdeIgLy RGM0EsB5JSN4hZYdmE0x uVkrqcwjiV6hFuo+ GTH7BQT3IT19IU84Z4Yk PjwvdGFibGU+PHRhYmxl IHdpZHRoPScxMDAlJyBz eGhlLM0lHm6lIXFl LWN (more content not included)... [facility] Progress Note - Provideron 0 05-23-2024 Progress Note - Provider [id number] [facility] 05-16-2024 Consent Forms [id number][facility]-12-[facility]24 Inpatient Patient Summary [id number] [place] [address] Patient Discharge Instructions Name: NOEMI BRAND : 1960 Patient Address: [address] [place] [address] Primary Care Provider: Name: Provider, Chito Phone: After you are discharged if you find you have any questions, please, call [phone] ext [phone] to speak to a nurse. Discharge Diagnosis: Prescription Information: If you have been given a prescription for narcotics, seek immediate medical attention if you have any difficulty breathing or any sudden status changes such as confusion and sleepiness. If you or anyone you know is experiencing suicidal thoughts, mental health, alcohol and/or drug addiction problems; contact the [facility] 05/04 Crisis Hotline -Text 4HOIY cl [id number]. If you received any narcotics, sedation, or [...] business decisions or sign any legal documents [facility] would like to thank you for allowing [...] tablet, disintegrating) (more content not included)... Normal [facility] MAGR Intraoperative Recordon 05-12-2024 MAGR Intraoperative Record MAGR Intra-Op Record Summary Primary Physician: LINA SCHWAB MD Finalized Date/Time: 05/12/24 11:55:42 Pt. Name: NOEMI BRANDO.B./Sex: 1960 FEMALE Med Rec #: [id number] Physician: LINA SCHWAB MD Financial #: [id number] Pt. Type: D Room/Bed: / Admit/Disch: 05/12/24 [...] 1 Entry 2 Entry 3 Case Attendee Socorro Simmons RN, Erica RN Kraus, Sarah E RT (R) M CT Role Performed Soft Work Cigar Machine Operator Soft Work Cigar Machine Operator Bull Ladle Tender Time In 05/12/24 11:50:00 05/12/24 11:50:00 05/12/24 11:50:00 Time Out 05/12/24 11:56:00 05/12/24 11:56:00 05/12/24 11:56:00 Procedure EPIDURAL STEROID INJ EPIDURAL STEROID INJ EPIDURAL STEROID INJ TRANSFORAMINAL TRANSFORAMINAL TRANSFORAMINAL LUMB(Bilateral) LUMB(Bilateral) LUMB(Bilateral) Last Modified By: Luz Marina Huber RN, Erica RN Baumer, Erica RN 05/12/24 11:55:04 05/12/24 11:55:04 05/12/24 11:55:04 Entry 4 Entry 5 Entry 6 Case Attendee Jillian Elias RT (R) Henrique HOISTING LABORERLashawn CST, THOMAS F MD CT CSFA Role Performed Bull Ladle Tender Scrub Personnel Surgeon - Primary Time In [...] Labeled Other Concerns n/a Addressed Time Out Noemi Alvarez RT (R) M Time Out Time 05/12/24 11:51:[address], Troy RN, Henrique Quintanilla HOISTING LABORER, Lashawn HOISTING LABORER CSFA, Luz Marina Huber RN, LINA SCHWAB [...] Leg Positi (more content not included)... [facility] Preoperative Record MAGR Pre-Op Record Summary Primary Physician: LINA SCHWAB MD Finalized Date/Time: 05/12/24 11:57:45 Pt. Name: NOEMI BRAND /Sex: 1960 FEMALE Med Rec #: [id number] Physician: LINA SCHWAB MD Financial #: [id number] Pt. Type: D Room/Bed: / Admit/Disch: 05/12/24 [...] Signed By: Maribeth Luna RN 05/12/24 11:57 [facility] Patient Handouton 05-12-2024 Patient Handout [facility] Coding Summaryon 05-07-2024 Coding Summary HTMLBase 64 EjjzhwuvJHn4fEe+PGhl YWQ+XC6BIONeT63baOXc sX3iP8KPGCfVJzdgQMYW HTvHZaGgzqQwSH3jjEFb ZXJu IC8+UM5mRJPjCnuxfFCe q5P7pXA8H54yly5uYRpg wHH0ZMYuTjBfmmjch7kx vZz3SRxaXuxgTsJe XDExdC61ZDQ8kO50Tm04 pPUhsKGre0zobFq5RuGq LUKwBEQ1mRyfKTvvd4Tt LJGlJ65wfAFey8V7 IGNvbGxhcHNlOyBlbXB0 oB1jDDdkagddd9ahvuhx Qtq8vs77aPEon5W3iEX0 Y0RceaL8IPCaiQLz XohuaUQJfJ8vdzjmj5qy mhbrZyFbIKTcBYz4AKh8 OHWtzQiyXlKlDI68HIQ6 KSXtonPrD9KpDTFb qVpnKwJ2e6R5Ls2YX8KZ NpspP5FCWKNYRYaydTR+ FG47fu11N8FtPpjnNrt6 FXMgMWH3mXO9bW3p BXLmQXnud2F7aLC8A0Oz diOywj7zv7qeJICfCKvh S48laCCwu9V7GMCpfIV8 HIMyrPniCbZxhW11 Oyc+DFFalQzer5NbPvna i7jki9dscLz8GmjrVDKw pkWlmPfhHJH0b6ZdWh2r NUJqwDK4pOJ3dD7q TeJzKgJ7FIfgA271IvWs pYNeXatxA44fB0EkrWS+ GLBjMio4WEBhbXeoLT3h D2WcPSJssxptwLLz qXwaVP6qZDMjizmhESQv uM0yMHSmY3h9AcGrMnH3 YGbwF7SoGNLmzjtzUw29 uU8hTvQkXqP1BLkk M3StkuM7QGXtoXRlYGzh SSA6V95qi4Q4DXEvLSRr RKO3pBG2lM0rdEnvdqji bGVmdDsgdmVydGlj WLgsPAneX930TGIbyQvr PkNvZGluZyBEYXRlOiAg MDgvMjUvMjAyNDwvdGQ+ ZVIuWDH3aTfoZFBx pAPkKTlqFz6tpAknwObb BF8wOSMsqdjpLJUsyG0c NZCpqTQjwMbuOT3iEPKs dvnog501JvRdFFH1 ZBNlhRGaK8KjpT9fFiPz HYBdPXUwQ9TgjQEkDTaq V485JSahBiV3HBFldkSi P4AxRBYadNpjTrF5 c3T8Sd4Qi5XukpiiN8Xu qCUbIdUjJyssFBc8X7Fq PjwvdHI+YZ92BVIwWP79 RCv3BRF6eUirWLcs AZPnZ1QnrV0aZiGbNURp ZGRkOyc+PHRhYmxlIHdp ZHRoPScxMDAlJyBzdHls AB8bFj7uRJDiFPKa bOuetTHaFeQyb5fsEUVs HMssEE4owFxxP0TzoSQ2 MEKlh7j3Kh85X53eV1Vc dXA+QUMcqFH5oPM6 vQ4cQdCaAjS4SNyfT556 MeDumSMuShfad8ner4yz lGy0YsZ3JNAaamFamYin ZWB8w1GjRi27O12t IHdpZHRoPSIxNSUiIHZh cIhswd0ltZ3nNu3+PGNv hDC8cRT6hL3pWcEbTuN3 TUboA723PlXlyCHh Tbqol5rbp9zgnJf7DgSf LFRnflHejMtyNQD7m7Hn Au55D7NnfRipv3TgBke7 rx57lUDef0Q4dNX4 W2DeVDMmgmbbkHPycDqr XC6pCIYppsorZGBdgL0t VWAeC5f8RhBtLlC7KYbf C2DvybA3FTQjtPUy SCYvkYTKlV5ameeim5qi eozhTpMmACTuBFk7QQi8 UJBhxRlfKjEcEYP6NnR8 HKT2rVOfdE5dlDxx cqizoD1tRho+LZN9oKHc dOVVII1yIbwffWL+PHRk TCN6eSqiCCboRZQqdW0m FAMkN1q1TtApHgL1 GQabO9FoqmZ8MLHkcEXl LLLfkGBPaY8znuynh2rr diaaRoYkWTXiVMk4MXf0 LWFsaWduOiBsZWZ0 HcB6VYO6aHXkaU1gzAgs vmtuzO4jQwo+QmlydGgg MAD4SQm1Q1TyDug6VUKr wLxoVY3twLDzXKgx Vc4wkQloxNaeDG3uPYJg raafz664PeYtk8oiYHOu rJUiHJizXSE3J16ap2Z2 BJOwEYBiEES1iZW2 hK6ppXstdiumrDAubRkv qoHhwAuwMMrgMPphE518 CPUnuMqdCnLoCSn1Y9Zh Qph3GAFnyNvvGC3r wFVkSDrnIq5cqYpyeHla AY2uTCYlnnpsz101OxHq k5pdPITjjZDiFDvuYNN0 D60tr6K7YCVaBMMu UCT9kCW4kX7dzHmhxofy bGVmdDsgdmVydGljYWwt TYxiX579BDMerMvtClGv aIu3A3LkTcp3HYOe sOteRG0dgNSmPQwuJe9d kLwmgPqsZA3oFDRlnvvq c011GaQrr5yeCGLufEHn YQdwZUL9Q40kq9I4 WXKuPGLgJXV1jGX9rL3n bGlnbjogbGVmdDsgdmVy hJosDWjlKWqyD974DZKd cDsnPlBhdGllbnQg YOcdIOk1F8HbTjpotXJ+ DE91WTRzIX59yWItoXPw b7lpjVd3EdWdKMHdZDF9 hGomUApst2RuTYFr X20sxWVhf7V7JXXtfFey uEMcNsQahDW6oT8cKZrq drtzc7khxfujPernv2kz wa68gG66J36cLGrl ZHRoPSIzMCUiIHZhbGln yi8dkM3gKb0+PGNvbCB3 gBG6xC0fFQKeSqO2LPbw W903IoSxeSJeLnrj t3nfn9fpdGk8ZnG4WBSe vqPeuPzcSZO8u1YtUp69 R56aGSrtWBClXJJqBMIq HGSvbKtzqm6wyO8u Ii8+DIYbkTP0jXI9uO2q KrWdMbB4QPqzV063DwOp kKUlZemeY76pJ1PdcYC+ ZNQsPzl0SQQptFsk SA8mhBIjZMzyIi1lVPW4 XbMpGsYcTFdqL5MyOLAf gbbgirnpjFY0WRRdRRCk oL71Ph5ljApyKCLk yUJArB5bwaewj8ieqopm QgUhZXGoXDu6VSe5IGLz eObuRyBrCMY4ZsM7PSE1 oVJbtT9zgBfwthac kZ2wP6SrBUVsaftsVs98 fQ3fKxUwRyQ3BCwoAzy+ CAsIWIycE1XXWItzUG5H YGXFOO79IH97mTZp b6H9wGQ9C1JzUKIoyqkp brcweKM7DFNjNURlrY37 tPXhAKceAa9jj8Z3w064 USDnTJQlcN11Jp5q mRvrWVOyhFWZwT9bprxq f2odrolzGfXqJLHhWPh0 IPg4WVSqyWqkQoVgFXC3 VqR0DXT5mHYhhR1i fDpodbxeuW5aKuf+MDkv OcUtUSy8SOjwsQT+PHRk TOC9jUgrOGlvVHJiaR2r GBSlQ3l4SeDiPiF0 FPtjB6TdGCBpkcpgUo18 bV0oEaLaDpR1UQusO9Wg yqD2PGNdtIQfFLjoRXM9 Q94de0L9HBEzWBGq AAV6uLF4hX5opVgbxkal bGVmdDsgdmVydGljYWwt NLhzB430TGOeuEhxHaOk ADahDKMrIU09HI89 tCWhk7G1mTB8X2CjYYNh uvqkmjscmYG0PWRlBEJv fL66kYYsCYjsNe4ne7A7 n503SDSfBIAioA78 Va6acLcmAHHzlTKDwH7u vbjut7vgspwaQnIkGLLp ORq1JYg5XHCpjDbzJrTo ROP7NtF4IHV8yBMn mO4hxQerhvpffZ8tQbx+ TiCQGEmXMC58UE55gESx b9E9uDU0G3McAZJkndiy uvkciAB2RSJkBVJa lW89zJRpGIvnIb5qy7C9 d080ZNGbPYZilA28Cs0c sUsiLRJslWDSoR8swldu s7oqqwyoZvYxUTGi TSu3XZt2AESuvPuyMeYd YRY1BqY0SOL6wUFvwS4o qXlzvnypmR9dXlz+T1A8 S0NjApfwxOI+PC90 DEOoYR05aVPktKKyv2gq hVq7TqUqAAWvMRI2ySfp KFtdx8SeBAYyA26fvSDd l9A0ZTEelUhuyPRt GhYskIL4sR4zSGezhgxc c6eiswsvUskut6hiok62 eO19N37iEHasQBEnESSf XTUzKJBqvFfsid2o rA2hRi5+IPVnsKZ1iNB1 qT0cVrMdMcV2BGyoC811 SaAgkLVzEjuys5pyu0xn tJh9EfJhYZEllbWw vMgfCGQ9m7CkQz56V27a IHdpZHRoPSIyMCUiIHZh eZmcag2qqM3oAn6+PC9j r0mqfb14pL47cUM+ HBJiZKV9wDslKCsgXFTy vQ6yDNwmNhD3NVGtDoHq zT71aLPuJClwIf9ijZoq gCeyXZ6dSYIzjqvx d281XyBku0uoOFAmiEUk RWeqZQS3U55ju4U3JFQo AIPsCDC5cSX0eC5uvGwq bjogbGVmdDsgdmVy gZguFOdsFUgpA980TDWt hWcxTcPmzTDtS7glaqWG BN6tGttooRM+PHRkIHN0 bFzhKUtfELAswZ7l QEWkS1m2ZdLeHaE7BEtw X8DzoqN5UNNtkTIcCTMg nKVCxR5jlcpwy8npsksr XoWcIDVyJLu5MBz1 IVKryJobEdHnYNR9ZvA5 IXR8sOKjkE0noMicwbvx mX3rVxn+RklOOjwvdGQ+ OPFmDWA1cAmwDRkp TFYztK0eOKRbI1l3QqNr OpG1BYrqK3RautS3QAVe iQVrOCZsaUOXcW6zwhbf m5keypgiBhPoSMZo OAj0AJl0PBXwnGshDsQz XOZ1RiZ2BNJ6vPNclO3y sJhwmxxnfT2aOum+TVJO OjwvdGQ+PHRkIHN0 xGwcGFytXVIxiU1wHLBw N1f2EwHoLmY1IHisN6Pr yoP3GQUtkVSmHUPlqLGK qU6mlhxko5nvfcsw EnHuPGXhSGa4PWm2SEJn tJuoEbLaXKY8JqQ0BRO8 iVAfkJ5voXgekzhtdL0p Oyc+LWQ6NZP0MV31 OR02Z3VbXgqwlOElcQJ+ PHRhYmxlIHdpZHRoPScx DWYfVmIbhWrkML4wQa8l ZGVyLWNvbGxhcHNl OiB (more content not included)... [facility] Coding Summaryon 04-18-2024 Coding Summary HTMLBase 64 BrfhcusbWNo4zSb+PGhl YWQ+GU6NWYWcU82lgMEo xZ7iK0XWBZvAIrxyCWGC VQkMRxXmdxYvGF8vuFEd ZXJu IC8+JL6eNMCkLpbfpRKz p0H6dTQ3Z86lye3bGRbt mVI0SPKbHmCjvqzht0ot xLd1TLbcMmolNgWu GYDyiF43XYY8uP85Rj76 wPVfbLRjs9zgeQr2FyOx VAWxLCK8rXzxTOems7Ux AISpW24rbLEcy2B5 IGNvbGxhcHNlOyBlbXB0 aI4xWCrfwkxsj6knbkdf Drw8cu62wAGyv8D0zJK3 Z5GdxzC2SOKgnEEf KyupoLMAdG1lecmxo9nd ynloTjFxWUOxWIx8YUy9 XLXncOllTgOmHW45DDO7 UIAmdtWgG2LzYVPe vKccVpC6b8N8Jb3BJ7GX ErsfV1DKIHYYNPjgbTK+ NR92hu93X9CtQtvrQll6 XPLfZIC3yEA5sE1b KCLyCBfhl5P0lCT9F6Qc oiEqvr5hk8oqFTRrIUri U32lsYWwi9F9QQXtyQC3 LVRosNqgMwEfaR99 Oyc+VYDaxSlrp2XqVspm s9gea5ehjYr5FnuoSLGn hfXenLvdPHG9a8GsUr8i MPUbeTO4jVA0iO0y SmImKmV9VCwaI018BsMs tHShCemdV54pH1NeqZZ+ MHTwIrm4FQJusAopDJ3x B9DpRIKvonyowKYa eSvbVE9xPLLcqqxkCHGe dN3sHQAdZ4f4UuDxIxQ1 HGmfO9EaELQiuwhmWh10 pM9mEyWqZaR1WAwu A6WmzgW7JHYlnAPaHExm FHT2N57qi3Q4QNUrFQGb IGR0qRN8hT9kbBklucgq bGVmdDsgdmVydGlj FBrbRNamJ639IBFqeSkj PkNvZGluZyBEYXRlOiAg MDgvMDYvMjAyNDwvdGQ+ TSJlMGV3jYbgKAJv dERcYOkpQr6bgXmmkByv UD5oUMJhnenzFBQfbX0v EPBivHQxjNumHQ1gVFEj aukbh084JaAdNEH2 EFObrCDvY7AntM5qIuQt GDEyGRBqF2YkqRIcNAaf K826CRcvVgW9QBPnhkPb P4TaGRWlrDwsKyE3 q8X7Ru2Jf2YrmrlvX0Oq mAQjNxQsOlrzBXc2X0To PjwvdHI+ZB21SXNhXA08 NWr7DXI9eTmvIUdw VWQeW6QvoX3hDcZvDVDd ZGRkOyc+PHRhYmxlIHdp ZHRoPScxMDAlJyBzdHls LD4fQd8wYZCyHZRv fIyamYBvRbYlz2udPJKy HBleKA5rpCnjA9BsbJE1 CVAxe7s7Za79M40kU2Uv dXA+SEGcoYM6mPL0 qU5pVpOfLtJ0DSsmH090 XpBnmTPnWqfsw0vqk4iq lAl4XaF6TDUnstFqzXzk UHL1e5RaBy74Y43t IHdpZHRoPSIxNSUiIHZh bUuczs9ieW5bFh8+PGNv pVR5yCY6pE2mQmIaVtR4 MAuxJ283EkFwxWFp Eznnv0fge2sxbXx9DcNl SSCpkuEnySsuREV5j1Yb De74K6WebLrce6JsNsw4 js86mKAdc7L1mYD3 I3EnJHWyqejhzXIirUew FA9gBJJuqzmlGRCjgG6h STLiP0x4XxIdAwK3VIrs U9GfvfH9VKZnmVZr YJFbhZZSyE3hkdqjm9kv wexxYhJlLGLlHMy7TIz8 SCFsqMusRgFpOFZ4BiM0 JNJ5lVWvtA2wrHsw cyqmcJ9gHtg+VIT5gGNh mLLLJQ5bWguulDY+PHRk TAJ1wJyqTYgcTQMyfW5b TSNjC3m4QwCsLsZ5 ZMmbE6PkdcK9GXOorGSw GPQyhGOZoP1lnzyxk1kz ptdlTgPqYJNiSQc5AZu3 LWFsaWduOiBsZWZ0 LeI7NNL6uPBxiS4rqIxk gwaaeV0oLvc+QmlydGgg XFU2NLa4A6UpCpq0ZVDf hQefMI0jfLEwUSoz Ax8kgVhtjOpfDY2wKVMt yraaa980GtVaq3bgWFAj nRUeIJvpGRP5O08tk5C1 NGAbRTBdTXQ6kIK2 uR2ojIvxuvnkyFMgqOov moQquJpxSTfzPLejT416 VTZibJulHpBvHXw3B2Ha Ssg1ULHccQwwPG8n qAGsBMleEf2kfRrujHrx TN0vGUMemvkpo384WxXm v8grFELhfLSjCCklOYJ6 F90pe3W5OOXyVDGe NYK0fBH3cT5tqWxiiyyo bGVmdDsgdmVydGljYWwt RTtlI645NAUbgJhsBlUr iDx4J3ZoTbt7KNKs dAjuOV6eqRExIIbzLq3y yKftqZvlQX3iMLLkghus c591NyAwn1ufHHHkmUAh UQxcNDM0T73xk1I5 QXAbGZXhSUV6pWS5wA4b bGlnbjogbGVmdDsgdmVy rZojROpfLWllX402IXFa cDsnPlBhdGllbnQg GNbaTPd1V3AzYoopwAX+ UQ93AHAeQO04mGYimHGk j4nqiZa7ZnMaPQLgBLB9 fKntLOhcx4PjAUAj Q29pwDYwe4Z5ZJJrzNby wFPaNyEtbBR0gZ4hRZjj mundi1rmkoyvCzeqv1cc bw37fB21W11mXNza ZHRoPSIzMCUiIHZhbGln rh0mbR6lJx9+PGNvbCB3 jNK1iJ0vARBxYcI4LIqh K594YcHrqCNuPabq q8spz8wzaNm1ViS4HJKs skQnhOrfUJD0x2VjVz88 Y86wTUxdZVPqPKXzALXj BOTlqVkjga7soK9l Ii8+CJIaxYT1wQO6aL1h KsMtVdF1ZWpvZ946HuKb iUMyKpreV33kN3XbiKF+ CBZmCpn6NVKroHcc WT3jwRLeHHmqBv5rSDR3 MsVfQaSxZLraX3JaLLMz vmohqtotcYH0CNNkCKSo hT77An4onBkhDFTt iJHJzM5fhjijl8iuvudw YjIfNWWoVGr0EAn5COHj rWlqWrXyHLG6VmX1WNA8 nIJetM6iaTpklvaj hQ3xA4QpRILtomslTv32 jR8mYaMoJrZ3GKocDih+ GFqAVCrhK9DCRMifNZ5A PRHUOS15PZ59bMLw l9Z4dAD2G6SdPLUfkwce rktfnGL9BUJiBORxxM49 gDQrDTonZq5jy3E6i269 TWMxANUzuD91Wi2h rBsoZERuqYLLwR3jtdef w6iidjoeYpVvSJMzSEz7 VOh6VIBvlDfeXnCfEJF0 BfB2EUL2hGDqsM3u rQjxtynziM3uXyh+MDkv PlOaCIv7WMqhjMN+PHRk KYG5hIubKSmcPULedE6w EVYdD9b1HrDhSyX5 YEzwS0UdTVBnazetSm98 aO5nRiDuRyJ2VHofT4Zd wlF6KZZzvHCrCNsnKKO6 K12eb1D2OOEyJLDx UEH6xGT7eB9dlUbrmhnz bGVmdDsgdmVydGljYWwt CEcxI848BABbnHttVtXt LKbfRDOcEJ20IX66 jKYqw9Z1yCR8Q4ZmRDNx nkqmmhpqkJC7TSXhEFWp zP55pIKsIOmlZv0br1R9 w614YFKqWYVvoV65 Sz3cjZphWAOitZGFqJ8w ihyhp7worsqsIeGhWLMx KHd3VUa3QBRlwDghSjLt OYK4SjD0ESK3xFBd uM4byMlgteniyF4vHae+ PiXDRTxPCT20JZ85yTKr e8N1uJV9C7IxPUHkzosg xjflkOW6GFPyPRZa eZ80hSJhPZybTn9uc6N8 p842LHDaLYTrbF93Ox1g pTfnLWIleUGYsE3hpdpr n5bmqhcvCsVwPOCc OYf9LTh5ZCRceZcwSmWm KFV3EhL3VZK2gCXyeN6p kQkasfcgxZ6sSif+RGF5 VCG2vbgeznm4C8Kk PjwvdHI+TP06QWLeYD04 rBGpuJHuc3vvqSz4TmUo UTGlJTO5tJirZZlyl7Mr RDMiD22ihYSxt3B4 IGNvbGxhcHNlOyBlbXB0 oC9yCRkgnkiud6uhsfnw Bqtje0ynqr12jE59N21j IHdpZHRoPSIzMCUi NFUllNkngv8xdS0jNe1+ IWTlwSQ8tQD0uG5nLvHu TgE5EMjhJ995AsTrcQAi Coevb5nle5joeNy1 IjIwJSIgdmFsaWduPSJ0 b5UlDe79I88xWJfaBOXe MRTqCKEqWLMxnBwqbp5k eQ4oIq8+BF9zk2sy ra08gP05aOE+PHRkIHN0 vRkkQIrjVVXdvB3eDHkd XjN9MVSfLwAoxJ85xAFc YDjoWe6akUfctFbo QC4yUHRhlbyzb348DkKd z1bwJHVxnFKpQEtbSKM1 E06ad3P5RZFlKPKhPAA4 hMA8zW7wkIkewvmn bGVmdDsgdmVydGljYWwt LPyjL350UXDdzWylBnMh pISeK4wgdaBGCS0aFaak dGQ+QBPoIQA9zRrw SQmuEIJaxX4aNZAdI1g5 XsKjVgQ2STavF2PnzyL4 FBDuuHCxBLBgpCVXfN1k dxqpq5kycoefGtDt GFAeDGz3LCq7ZQFtiPtb GeXiKRQ3KkX1MTL9iLCr kQ1jeNkbpqsdeU1mOwv+ RklOOjwvdGQ+PHRk BQR7fVkfRDiuIQLsfX6j JYSvT9f0GrUhSbB7BYpp O7EoizP3ZAZrbZWfMSRq rUJIkD4mjpbyn9gg naeiFzWqTABeCKe7CVy1 EQWypVpzKkLfQGZ0XuS3 WQD1uINjiJ1iaZvgiemn wI6wYff+TVJOOjwv dGQ+PJGwGPC1ySbwZJnd JCGffJ1zEVHhT7c3KhNh ObN6LKmcO4WysoA3GKMy fGLhKDDwxMDVoP5s ifueo0ntzkkeDzRkHEOr QGi0RSx2KFBlhVniBpSc SRL6HpY5UWR3jXXesB1s uFpnmqpvrR5sHob+ LXA3KRN1YZ97IP36H8Hw PjwvdGFibGU+PHRhYmxl IHdpZHRoPScxMDAlJyBz zJwiMR0nVw8uWLSj LWN (more content not included)... [facility] Consent Formson 04-17-2024 Consent Forms [id number][facility] 04-17-2024 Outside Records [id number][facility]-14-[facility]24 Inpatient Patient Summary [id number] [place] [address] Patient Discharge Instructions Name: NOEMI BRAND : 1960 Patient Address: [address] [place] [address] Primary Care Provider: Name: Provider, None Phone: After you are discharged if you find you have any questions, please, call [phone] ext [phone] to speak to a nurse. Discharge Diagnosis: Prescription Information: If you have been given a prescription for narcotics, seek immediate medical attention if you have any difficulty breathing or any sudden status changes such as confusion and sleepiness. If you or anyone you know is experiencing suicidal thoughts, mental health, alcohol and/or drug addiction problems; contact the [facility] 05/04 Crisis Hotline -Text 4HOPE to 956510. If you received any narcotics, sedation, or [...] business decisions or sign any legal documents [facility] would like to thank you for allowing us to assist you with your healthcare needs. The following includes patient education materials and information regarding your injury/illness. SHAUNA BRANDAMBERLY HANNA has been given the following list [...] tablet, disintegrating) (more content not included)... Normal [facility] MAGR Intraoperative Recordon 04-14-2024 MAGR Intraoperative Record MAGR Intra-Op Record Summary Primary Physician: LINA SCHWAB MD Finalized Date/Time: 04/14/24 10:38:56 Pt. Name: NOEMI BRANDPaul Reddy/Sex: 1960 FEMALE Med Rec #: [id number] Physician: LINA SCHWAB MD Financial #: [id number] Pt. Type: D Room/Bed: / Admit/Disch: 04/14/24 [...] Diane RN Baumer, Erica RN Role Performed Soft Work Cigar Machine Operator Soft Work Cigar Machine Operator Soft Work Cigar Machine Operator Time In 04/14/24 10:33:00 04/14/24 10:33:00 04/14/24 10:33:00 Time Out 04/14/24 10:38:00 04/14/24 10:38:00 04/14/24 10:38:00 Procedure SI Joint SI Joint SI Joint Injection(Bilateral) Injection(Bilateral) Injection(Bilateral) Last Modified By: Luz Marina Huber RN, Erica RN Baumer, Erica RN 04/14/24 10:38:36 04/14/24 10:38:36 04/14/24 10:38:36 Entry 4 Entry 5 Entry 6 Case Attendee Erica Barkley RT (R) Vikas Cody RT (R) Francisco HOISTING LABORER, Saige Role Performed Bull Ladle Tender Bull Ladle Tender Scrub Personnel Time In 04/14/24 10:33:00 04/14/24 10:33:00 04/14/24 10:33:00 Time Out 04/14/24 10:38:00 04/14/24 10:38:00 04/14/24 10:38:00 Procedure SI Joint SI Joint SI Joint Injection(Bilateral) Injection(Bilateral) Injection(Bilateral) Last Modified By: Luz Marina Huber RN, Erica RN Baumer, Erica RN 04/14/24 10:38:36 04/14/24 10:38:36 04/14/24 10:38:36 Entry 7 Entry 8 Case Attendee LINA SCHWAB MD [facility] RN, [place] Role Performed Surgeon - Primary Soft Work 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 [facility] MAGR Preoperative Record MAGR Pre-Op Record Summary Primary Physician: LINA SCHWAB MD Finalized Date/Time: 04/14/24 10:47:00 Pt. Name: NOEMI BRAND /Sex: 1960 FEMALE Med Rec #: [id number] Physician: LINA SCHWAB MD Financial #: [id number] Pt. Type: D Room/Bed: / Admit/Disch: 04/14/24 [...] General Comments: Pt arrives to w ambulatory. Pt denies cp, sob, cough or flu like symptoms. Pt denies pacemaker/defibilalt or or sleep apnea. Finalized By: Oscar Thompson RN Document Signatures Signed By: Oscar Thompson RN 04/14/24 10:47 [facility] Patient Handouton 04-14-2024 Patient Handout [facility] Progress Note - Provideron 0 03-30-2024 Progress Note - Provider [id number] #1.00OTGTIFF [facility] Coding Summaryon 03-27-2024 Coding Summary HTMLBase 64 KoejkrktGPy4jPr+PGhl YWQ+WF1YPOYmT61lkLYp gW2gF3EYDWnSGaatHWMR PXlYImHqcdUaLL5lfRDn ZXJu IC8+TA7tIIQkYaivgXBf f5Y2rJD0L05wxy0fMOvj pME3XITdSsLlbbriq4zy bRh1OIjiLuxcXvNs EUHllA17UKU8iA99Eu35 sZYukWWyo6lsbZr6XkIi DGIsIYP3yNbyJXyva6Lf ZQXpT79zpJVhu8X2 IGNvbGxhcHNlOyBlbXB0 fC1fZQcnwojwz1mdcpgq Kik1uf94lMBri1A5rRB7 L8SlsnE9WOOlqWCl PlipgJCCsW1xtxwjt4we oalcUoEfCCQwMTx9OWx6 BTQelJxiLhLjPR78FFL5 KFTctyRhB3HcTWNn aEcbOcV5l4K2Td3AF3QB VcbxK6CZXDLWALatpXT+ FC49qy60V1XxRkupWfv7 RPPwHBK8sZK8mV7u RZUzSPqhd6D8gCS0E3Fs stMjlx9fw4chSDZpRDwi Y97skFJaa3J8PNHohEH1 KMLzeAaxZfHqqD42 Oyc+QHIgaPdsi2NrCond f4gbd9oxkMy2EkjxTVQe dnBwmYtoSDS0b4JfHs0y TXGyoAB1rPA1mH0k VuRsSkI3BQqmY483CmAy dLFlOmirI62sM8HtrMR+ RLMhHym7ZNGdjIduCK0f O1LvULVsxpqogPMn jCxuCI5wJEAfdopxYKPf rF7gCTStD4n3IwTnExF1 QGjzH8ApIJAznbkdFy13 lB8dNjNeImZ6EFwy C9DsxwH9SXTcfKCnWDjh NBG8M50gc9X5ZLZbDRNz KHO2tUC9sC1mhQrgztfd bGVmdDsgdmVydGlj OReiOJyjN185LGZwnOja PkNvZGluZyBEYXRlOiAg MDcvMTUvMjAyNDwvdGQ+ NTKwPDH3vIkhVQYb vSZvWOgzLv8lzPbznRzc SG1sRUKzljtnHLFthW5e ERHdkZEzaCykCL9yYYEd kfzux711IxEzEXY6 ZXHncYIaG3TqyI4hFtEn AMFeTVTaO2HksXGcQYri U120XLnmWtT2YFIrjzRq R6ViQWTvcFimMzJ1 l2L8Dk1Iv7UhwkquM4Lt dJAaMrAjBhnfUTf1Y6Ph PjwvdHI+KR41NKPbWC54 WKs2GJN1iKjiAKtz DGLhS2KadE7wEmDhMURv ZGRkOyc+PHRhYmxlIHdp ZHRoPScxMDAlJyBzdHls PU3hOw4uLIFrBAHg qPntcIMvIrPxx5deWRXh LLkmXX9foFxyZ6MngYB7 TMSrl0p6Rj82Z25qQ4Bi dXA+FOFnfPN8zVD1 aJ7tDxWvLfS8HSymW078 EmQrqHKtZmjbn6swv1fb fZb2BrN0DFPijcGcsWjt KKJ3j8DoJz82J64f IHdpZHRoPSIxNSUiIHZh jKivjl4hbQ3aRv4+PGNv bCF1jAM8mP7kTaAdDiE9 TNkoU462ZdDruYLp Qcyyv5poq2ohvYm6NuAv KIVmonJegUfnCJN1f7Ep Sz98X5VasDore8QySwy5 on59kGMvy9P6gOA6 V8BiEIPlupbohUIucGvi BF0bCSDohljjPGRcdH9s TOKiU1w9YgPaQcK4ZViy E2NntgQ1TTDkyZYg IUVahHOSoG7vubscz3nh tbazBwFnFEZlRJk7GSa2 YGJnlLviIpAnDLK7UkB2 CQQ0fLJdnA5uzIeo dsceaK3bEzc+WIO6pPGf kZXDZR9bTdchoWY+PHRk BHA5tAerVAadCFJkzD6c OKXmS2t9TxZdCsJ9 RXlcW5TkckV6ERYncAXp NFAgjGBNxS4rrhkbs8ib bldzDxFaKQXiHGi8HYm8 LWFsaWduOiBsZWZ0 CyH0AKL7iUGxlA1dmKmk spkviR4bSth+QmlydGgg MSE9HXi9J6MvWyy8TSFs xUduEV3mbWDrMBmx Mm7zpTvxwEzwAG5uAVNt niiaa922MiXsl0bfFWZw kDFrGGxsFEA1S59gw3E1 BQGhSKNgZOZ7iOF2 tJ8ubZamidqnxJQeeYic gvOppGhyRJieDDgdS432 KDBkiSwaUuWsKKx3B9Lv Xxz5FKIcoRulWU8n xRQwNVraOr0ldTwfxLfm CV2fBSMplorgv695CqGd d9spGPOzpXThAWhfPWY2 G70ym2U3MFXzYOFc VWH7dCS5wX3wxLtdlzpg bGVmdDsgdmVydGljYWwt XRloT012YOLiqIxiQfRf dAi1X6GkUvx1MHEb oGyhXU1atBKsCMyvGx6k zLngkJzwLT5vJLXubkfz m366UhRqk1ypDKVkaTUn TIqoLGN9F90bn4W3 FHFxTTFtSCB9rSV4nH5z bGlnbjogbGVmdDsgdmVy qZdcJJrxGLwlW400EBLb cDsnPlBhdGllbnQg CLtgTMk3I1AdAfpaxYD+ ND80ABSdUN71aEXmbUOd g7jxxTr3FiUiTFKmRDZ9 xScoOKtwa7WtBERb L29meXYbz8Z0ENQhvLuj kCWePaEvtOY6nP7jITbi btxak6iuawmjIvkdd2wh fc20xD59K32eJWtw ZHRoPSIzMCUiIHZhbGln lo1zeS2lQa1+PGNvbCB3 sZN1bY8kTIWzCbT0DPco H064KvNteQVqCmhz o3gmi4bsmAs2XhH8DRNm yhEegJffBAR8o1RuZx64 J66tABjgTOJlHWUrXBOx RGUqrJqvrx2buP5k Ii8+QKIqfOR0vEU5dD1q CeMnNfM8SWrlE686VaPy cYUdDnvkH83zS8SepYX+ XXInIim7GMAflEmw ZM3dlPHvNPfeMm1sDEZ9 AmKvXfVlLLeuC0CyREQi rtiwmqmzvTL0XSMsJBSq vT60Ak5fsVssBEFw vTWHeR5cakjvw2sglkmp UwMtVCNuDBw3KVk4HWFd fLcrHkCpXVJ0BzW0HTH6 rVXbaO9yuZivoltk mQ2xX5PlSIVlhfruXd75 hJ0wGuGxFkN2XZjxVgv+ KAvOKKtyS6REOSwaYN2G YHUBBY12GU20nESk e0V5iIR6I6PpUNDpfnsb jhbpzHD2JLCsODQyyS59 bYCkCNxbXc0wc1Z2e141 BRKoETZlqH32Wd4u jGkrPNKzuIUKrH4tstxa m9vnecilHwWkLUNkKXn2 AFx1LVScjTaxJdTdUYV9 WrY4RVG4hTHrnJ7e hLdgqaqpfM7mJze+MDkv YnCeKGa4WCavtJC+PHRk TPJ2pEhqLKplXSWarI7d EUAfC1c8SnTyRlT6 HZrfI2QoFKRngrpmCd04 hO1vZeQfBeW2DXntT3Ja oqH3HKYwtEAdDDjdTCC6 F29yf9L8CDBgAMXn FFM0oUT8pG1btAfbijdc bGVmdDsgdmVydGljYWwt ZDvjV466QXSevYwzJnFt NEydROWwLN13KN25 wDGbu4Q4uTS7C0NwBTRy avynbqguxZO7EZCwROKd lC99fPMvRLdeLm4nb2J2 u030JSHzPXDvbO04 Av6lfSwuKFUrgCSNuH9w uzhlz5kihflzBkSrKTBi EPp0HWw1QCHigHhyThDp CJJ7WeR1RJY1fYIy zH0kuUnkdlevkP9qTke+ UnIRKNnLGM87RO52oLGn u5B5vSE9P0JdPQGuifjv ofjxqFH2GQAbUSNm eY40sYXhZWlyZo3eu8L4 g460UIFsWCWqbC65Ai8d yTbhZBLeyMBDtW7eatrw r4vlucdeXrXpIEHv KWp2CFd8KHJxnZemPpEg ZGT7TaK8KLX2fIHkjN8j sGjnfryxdQ6sQnp+T1A8 J6RrZbxfpZN+PC90 ZKRzSH82hFKycQWrr2gv bNk3VtBbQIGaHNH2qOry OLlvj8CvOCJqT33jhEUi l7X9NUEscJakfENq RoQbdME0yC6vQCfardcf l7zjhdvoOmvtw2qmtz13 oA51U02eAXubCXJaACSq BEJhIKXrrUvpqb3n pG9tQt1+FGDbyUQ8gXJ3 rW7rTjSuVpT8YOnoQ886 IeTbsFZaNjpjr0qap4lx kXa4NdJgHQSuanPr pOefYSB4s1ZaDm61U76j IHdpZHRoPSIyMCUiIHZh iOgvat9owV5sAk0+PC9j q9jdin47aK40dKE+ AGMrNHR9wImaWBbuDTNo yV9cWIufWiY8REWdRfRi jF44nSUdVDpwZc9xvUga gEcbAV2qMYDnejdp s482NbYut9pfOMFhoWJz YOpmNFF6O29nw9W8KEAd PBSyCFL0sQM8qZ9boJwy bjogbGVmdDsgdmVy gNhlIBjvTNjlT169CAEq gPmtNfGngVJhI1fzgxDP CZ7yXukhmES+PHRkIHN0 jDtmZJhnTEOrxR2t BHEiT5j0XmLeWmM5SHlw Q5BvlbK5MQJqmRCiFTDo dCAYyF5ltefpd8ugrhfk IjQrEREgCDw3HIi4 ZOFfjWhlTbQjYEL1AxC9 MRS5fIRjqQ2ylRzfyuiq cX3jPup+RklOOjwvdGQ+ ACZdZWU5sZwgAUbs MOUjuX2xVNAdA4z7DdXq KkM4RPlaR8ReemN0ASTc xLHxZNNtuDWFwG5pybbe n6xqmkgxTaLaWCIw VQm4SIa2TCZnjZwpHlUg QSO7IcD0DIL1oLXqlP4g uYtalowyxA8oPvt+TVJO OjwvdGQ+PHRkIHN0 vJvjLZlmOBPwoH2sJZCn M7b9HgTxTdX0LBokI9Kk lyA4LCTbrUEfFIAunOMS dI2ldysyp4xnmval NrScSIKkJEa3HCi1SRCp pTdxGrFiNWB3KeV4MZL2 vCBowC9trCjrdxzqbE9z Oyc+BZJ1JMR8GQ41 FV66J7WdHrnljRIepCJ+ PHRhYmxlIHdpZHRoPScx FUFkXdRjeYxxTG3aAm8i ZGVyLWNvbGxhcHNl OiB (more content not included)... [facility] Coding Summaryon 03-08-2024 Coding Summary HTMLBase 64 JrlewqtmYKf5rKe+PGhl YWQ+YC2SCFLyE87otBJk sG6nT0SFGYuPActrJCEQ DTxFLuYuorJsOJ0ewPCl ZXJu IC8+YA7zWDMaWpgrjFHk f8U3uJK5H67rhq7wLBcx qHM0UHKfNhGtzjotc9iq cXt6OZnoAplaLaHx BUQktO04HAS2xM09Cs63 hEPfgSRww8xhwWe7AuMc RYNjIKV3xLfvMBhtt6Ml VYXcU33rfMTen8T6 IGNvbGxhcHNlOyBlbXB0 uQ5bKUncqmdyu6uzkuah Nff7iu90yNZwl4Z5uVF3 A7VhklM3AZMgpRXw KfcewBAWxP6rknmzc4rn gtdbIvRsPPIaZFe7HQh8 KFGlwKimUqMhUB60NKW1 CKQjvaPuP6SrJWZw cCezLoZ0m6P6Uh7WS3XI XrybD8HTXUEBGWiwhZG+ DR30ek20X3QmBhpcJgm8 BEIyYBC5xHR6wA5l TMXrWBbob0T0dWD2R4Su ukNsxs7gk6evRCUqJMgu R39jrQVug0D4BAYidKB5 MZSiuPerOuRzyO75 Oyc+QSZqnEgrr7UnLkcz k3guv4wepEt5EalvEKFg wiPqrEspSSJ6c2MaKb8d XOJhqNE6tHR4sX4y VzOkDlG1LNfiD138IoVm jEScVcoyU14uF1JnxHA+ LHZoTsp4XVSkcZdaDS6l A4FnHGKeucegoBLg cRdqRY6pADZwaxdqUHMz iL7xJARjY8y9FjZiRuX8 DVfwQ0CaOUIcekvyEl41 iV7lYsZjTnI0LOsm R1RzdpA9VKZhdUWwAAyh XGC8O48si3B4LYCdXUZw VPT7cXS6jJ4ezDilneym bGVmdDsgdmVydGlj NNlyNGhcZ448CJQiaIla PkNvZGluZyBEYXRlOiAg MDYvMjYvMjAyNDwvdGQ+ AJUnAWH8nZlwRYCn iFLsCNjvMb2nfAmtsEzn WZ9nLRGhbalhUMDpnM3o JZXwsMZogNeiMR9lZTKs phdhm830AdCoBSB1 JOUlkCRfR7AzyY5zXnKi EVSyCDDtO2SlqEHoEZpy A708CTjyNwD1VDSqzmKw U4DsQDLxiVmgBvN5 z8A9Nx8Be4MpuzblD4Rf xQUeFkHcEptrUFb6G3Qi PjwvdHI+OR78ASTsAC90 NDa2XBE5sKefMEsn JBRkZ5GveG0bAfUqLEXh ZGRkOyc+PHRhYmxlIHdp ZHRoPScxMDAlJyBzdHls RC8kTg1zFXEyXUOg iOhqcIFgHbYsj4ksUOCr NSctKZ7iuEtpH7WjvOK8 DEGdo9e8Sn58R27pU4Tf dXA+WXKiuIP5kTR7 qQ9zZqMhNhI8GAfbX446 HjWpyDVyAuiwh5wlp5jl fRp9TrH9DXHrbkRwqEcr QJQ9n7KoGf99E44e IHdpZHRoPSIxNSUiIHZh cKanzt1ptX2cMt0+PGNv bID3oYT2jE6cNjVaFvV4 HObvE832UiDfpDVl Rvvil0fgy4ujhBm7EoWv VYCoqzKdfHgkAHE6d2Gg Hj36E6DfgBala1MqFrs3 pz52qYAyf9Z0tLN6 K2QvZHOhchkncNBkgZsc CM7uULYbgxquNKBjfT6c UDVjC7x1RdHbQgG3NBhd R1QwsaO5UENnxGOu JYUsxGTIhP5tcxfjm7ij gywvHtXnFTPjSBv2JKy2 JGBkuJpzBsNdVCF0HfH9 MBC8oBUgbP6gcFou hlawiH5dTok+POF5uZXk jBNPUK2iNofbtLF+PHRk ACG3dVvyUOziZYWqwL8s ONTlL7e3QvKkHpP6 QJhtA1VbaxD3JIDggHGn FIDukEKKtX4sbqumj9gv bulzPjBtSGMeAIf0DRb5 LWFsaWduOiBsZWZ0 MeU5XZR4yWCbdR2vaAzx mnnszJ9eBac+QmlydGgg LQJ4LYf3R7ZrKcz7PNVz rLehQN1vuDDdHXjl Lw4xwMbldPmqKI2tXLDi egnnx086EiQot0dcFKXb hONaRWcxTNS9P14bi0O4 EQHmERKlIIV1pRD2 cX1dgGctqddqfNAdlQjd fxPbfSsvFVhqUEinE702 AXMstSapJkVoYHm6I8Tm Uyo9OPMrwYhuDL3y zOAeSHqdZl7xfDvnpKrj DV9uKXIwesafh071TcKz r4zpXDAffJRnNRniNVU6 N28hr4W6KUXdFFKk ZSG9cGW2dW6ofLhmzwmk bGVmdDsgdmVydGljYWwt JKecL709JEDaaDdbCwLl yMx6E3XvNkc6MSVk xZedVJ9yeMEwQYnuUn8x oEugzLhuAF5eCMAhvjmq a404CvPyf1ssAPKtrQEs FEdlITF1H43bt0L7 EDDcZXVdBXO8vZI8rB4q bGlnbjogbGVmdDsgdmVy qUhqLOnzKJakM557YESn cDsnPlBhdGllbnQg XTpcHYu4C5NjMhggvYY+ RY73CUUgHU18bPTmqBUz w0wluXw3EwUnCPEiZJC3 fYxzNOamn8VlBBJa J42ubYLln1G9XKUodKmz yKWkUcRyqHJ7vZ7nTAah wupwi3wrakooAjezg1ad gr38pD26N57cMMrr ZHRoPSIzMCUiIHZhbGln cz8tcI7eWf6+PGNvbCB3 bZW6xN0iNRYfTuN8HVpv O325CfYjjOLqFeek d1oju7leqCs7IlL0YRHn bfQbsJquVGI4z5KePk10 Z38dSWgfLKJcFZVhPQCq NXLezEdqcl5roY3t Ii8+RICxyKV1zMN5zN2h BoStLyY0DAgpQ328KfUc vJTjSrqcC62vH5NbtHT+ WFLrEgn8YWLhdScf QO0onFNgUPwgYa5xCNW3 FwGfWfEiZKklG3CiWSYc pxbojkvqzAQ4DNRxXAHl uA90Rx1sfZxxIWZy uIJWaP1nvzvht2mbqcez VmRwVHFtAPc2CPl3JNIh iQkuNmPiDPW3SbN7GDI6 qWKmgP5nxWajzpyg pX2vZ4QhPMFehubeRk06 aG0qUpShAqT9WCadHup+ AOrQTLnjC9GCPTkgJT4P YAOTRE83MK90wQKk j3F7qYW1U2GkQZSewryj ynntdME8TCLfTWFyqT52 pFTfXMhvZj8ar3N1q619 NSIlSQDqlW43Gc1b oLsuMMIbqTSXwK3hruzz d0cglxvuKdZhUDQnULt6 IAs0TTLknXooTbBwAFF6 SnW9NWO0lMKtgH4a oKrndbkedP4wGoz+MDkv CzDsBGa3UBiznXR+PHRk FMB6hVebGYbuFJHqeM5x NFXeW9n7PtBeVfB4 CWplF9UmDNAvkajtJw88 eJ7lLnEhNjO6CLuoB9Gl wpQ4PRDvoVLgHDopFRV1 N76xr0S8JOKoAVNk TOY2uCJ1yK5fsLlanxsx bGVmdDsgdmVydGljYWwt ZMdfO760ZFGpfOwjJqDv JEcrREWcBS13EU87 dGOxu6N5yCI6R2DyFBWo meknymuveKL2HUMmLXKd bC72oBRiCXjrPh6wd0J8 w346IPCxGLLtoR34 Nm5qkZrcHOObgCWOgS4r lcvbv9ztpetdUnSmTFTm BHj3OUt6JYRaiXmmJxQl IPP0VaR9EGP8fEZv yS6uaHavhtcwsR7aJib+ ZyGDMYnCES63ZH03wRWb a3P6cFD1Y0OaUHCcpvdq kxrttAH8JLTrHHRj cY32aTZxMWimNh2jq9A9 v373KYWzWHTujP88Yu2e tMloBIXkdSWXqD2gjbjf k8elzrhpKuNnWZRp BZl0OUa5MTFdkWpbXvZk OER2WuJ0RII1kVYulB9f iFgmszdheH0sShn+RGF5 PFG9krcllyq3L5Lk PjwvdHI+EZ96LMVzFM73 yFBadZFit1umlZu0RsQh NRUwPPG9fQnhLIyrc8Fx KOGiV03wbSVry2C3 IGNvbGxhcHNlOyBlbXB0 rR8lHAsrrnwke9vzmusy Yokcj8wjbo31zJ12K84f IHdpZHRoPSIzMCUi IPRylWxaez4faH7tJs7+ LYJqeEY1wJK2pF6pTpPe TbF4BIkaI262UyWgpGAu Onmad0uee2jkoIs9 IjIwJSIgdmFsaWduPSJ0 m4OqMm20O10sXWhsXFGq ZSNcMEMbRGPycHdemu4l sR6eEw0+LD2zw1cz rx59cD09yRR+PHRkIHN0 nGqmCQuuUFYnxM8gHPtz XzX1EYRyLyYdmW97uWVs YEhfJh7wvOjrvNey LW1zIYGgbqefd696QmWk r9xfSFCuvBJgXBjvVEB5 L83hm1P8BGCmIBCfAEU6 qOR5fX6fnShaizup bGVmdDsgdmVydGljYWwt WHrkV652ZDPncVzwVhCw bPGfS3skhyDCTK3oGayn dGQ+DYWpQYX0nCpj VSrlXOTmkU5wPINyE2d9 NjHpQjJ1XIlvR4HfvcM7 VSZvpMDuTLRupBQCaB3i legtx9kbooltHwXp KSUpJDd0OJz5LSIzdChk PnMfCPW5VyX1QKV4wTQf eS5neQrtlpnybQ6xHtj+ RklOOjwvdGQ+PHRk MDU6cLwgCWaxNRBvbO5t XTCgR2y2HaKsCfD8XGzl O1XshsV2FDPwhIMmCAFw oGBWaZ5heilzl3ef vkujEyLwWGOcPHq6FYq8 LXIwbElcDfKmMUC3NqI8 XLN2zIFcsE0bzJgmsple zP1uBru+TVJOOjwv dGQ+YCWbGDA3eRoyKXvs LRIreR1jGCInI3o3WtMm NdZ0AAqrB5ZeccJ8XIXv yXNzILIqvECXlJ5o gcckk7ufudtfKkXgLJEz AJf9BEe3ANLwbEorIpUz WZM6EeW2YFX4uLGifD7e eRmavgnjdH6sUuq+ LJG6KDC5JE11GJ84H8Cm PjwvdGFibGU+PHRhYmxl IHdpZHRoPScxMDAlJyBz rGguXF0jCs6gYQIn LWN (more content not included)... Normal [facility] Alanine aminotransferase [En zymatic activity/volume] in Serum or PlasmaOrdered By: Carlotta Stanley on 02-25-2024 ALT [Catalytic activity/Vol] 16 U/L Normal 7-52 [facility] Comment on above: Performed By: #### C 3, C4, CH50 #### [facility] , #### CBC, CMP, ESR, ADDONUAPLUS #### [facility] [address] [place] [address] Albumin [Mass/volume] in Ser um or Plasma by Bromocresol green (BCG) dye binding methoOrdered By: Carlotta Stanley on 02-25-2024 Albumin BCG dye [Mass/Vol] 4.0 g/dL 3.5-5.7 [facility] Alkaline phosphatase [Enzyma tic activity/volume] in Serum or PlasmaOrdered By: Carlotta Stanley on 02-25-2024 ALP [Catalytic activity/Vol] 72 U/L Normal 34-104 [facility] Comment on above: Result Comment: PERF ORMED BY: [place] [address] PATHOLOGIST [employer] CUTTER OPERATOR SUSAN ZHENG M.D. Performed By: #### C 3, C4, CH50 #### [facility] , #### CBC, CMP, ESR, ADDONUAPLUS #### [facility] [address] [place] [address] Aspartate aminotransferase [ Enzymatic activity/volume] in Serum or PlasmaOrdered By: Carlotta Stanley on 02-25-2024 AST [Catalytic activity/Vol] 12 U/L Low 13-39 [facility] Comment on above: Performed By: #### C 3, C4, CH50 #### [facility] , #### CBC, CMP, ESR, ADDONUAPLUS #### [address] Automated basophil %Ordered By: Carlotta Stanley on 02-25-2024 Basophils/100 WBC (Bld) 0.8 % Normal . [facility] Comment on above: Performed By: #### C 3, C4, CH50 #### [facility] , #### CBC, CMP, ESR, ADDONUAPLUS #### [address] Automated basophil countOrde red By: Carlotta Stanley on 02-25-2024 Basophils (Bld) [#/Vol] 0.1 10*3/uL Normal 0.0-0.2 [facility] Comment on above: Performed By: #### C 3, C4, CH50 #### [facility] , #### CBC, CMP, ESR, ADDONUAPLUS #### [address] Automated blood monocyte cou ntOrdered By: Carlotta Stanley on 02-25-2024 Monocytes (Bld) [#/Vol] 0.7 10*3/uL Normal 0.0-0.8 [facility] Comment on above: Performed By: #### C 3, C4, CH50 #### [facility] , #### CBC, CMP, ESR, ADDONUAPLUS #### [address] Automated eosinophil %Ordere d By: Carlotta Stanley on 02-25-2024 Eosinophils/100 WBC (Bld) 0.9 % Normal . [facility] Comment on above: Performed By: #### C 3, C4, CH50 #### [facility] , #### CBC, CMP, ESR, ADDONUAPLUS #### [address] Automated eosinophil countOr dered By: Carlotta Stanley on 02-25-2024 Eosinophils (Bld) [#/Vol] 0.1 10*3/uL Normal 0.0-0.45 [facility] Comment on above: Performed By: #### C 3, C4, CH50 #### [facility] , #### CBC, CMP, ESR, ADDONUAPLUS #### [address] Automated epithelial cells c ount in urine sediment (number/area)Ordered By: Carlotta Stanley on 02-25-2024 Epithelial cells Auto (Urine sed) [#/Area] 0-1 [HPF] 0-2 [facility] Automated monocyte %Ordered By: Carlotta Stanley on 02-25-2024 Monocytes/100 WBC (Bld) 10.0 % Normal . [facility] Comment on above: Performed By: #### C 3, C4, CH50 #### [facility] , #### CBC, CMP, ESR, ADDONUAPLUS #### [address] Automated neutrophil %Ordere d By: Carlotta Stanley on 02-25-2024 Neutrophils/100 WBC (Bld) 63.1 % Normal . [facility] Comment on above: Performed By: #### C 3, C4, CH50 #### [facility] , #### CBC, CMP, ESR, ADDONUAPLUS #### [address] Bacteria [Presence] in Urine by AutomatedOrdered By: Carlotta Stanley on 02-25-2024 Bacteria Auto Ql (U) None seen [HPF] None Seen [facility] Bilirubin Test strip Ql (U)O rdered By: Carlotta Stanley on 02-25-2024 Bilirubin Ql (U) Negative Negative [facility] Bilirubin.total [Mass/volume ] in Serum or PlasmaOrdered By: Carlotta Stanley on 02-25-2024 Bilirubin [Mass/Vol] 0.3 mg/dL Normal 0.3-1.0 [facility] Comment on above: Performed By: #### C 3, C4, CH50 #### [facility] , #### CBC, CMP, ESR, ADDONUAPLUS #### [facility] [address] [place] [address] [place] Calcium [Mass/volume] in Ser um or PlasmaOrdered By: Carlotta Stanley on 02-25-2024 Calcium [Mass/Vol] 9.1 mg/dL Normal 8.6-10.3 [facility] Comment on above: Performed By: #### C 3, C4, CH50 #### [facility] , #### CBC, CMP, ESR, ADDONUAPLUS #### [facility] [address] [place] [address] Carbon dioxide, total [Moles /volume] in Serum or PlasmaOrdered By: Carlotta Stanley on 02-25-2024 CO2 [Moles/Vol] 30.9 mmol/L Normal 21.0-31.0 [facility] Comment on above: Performed By: #### C 3, C4, CH50 #### [facility] , #### CBC, CMP, ESR, ADDONUAPLUS #### [facility] [address] [place] [address] [place] Chloride [Moles/volume] in S josé miguel or PlasmaOrdered By: Carlotta Stanley on 02-25-2024 Chloride [Moles/Vol] 103 mmol/L Normal 98-107 [facility] Comment on above: Performed By: #### C 3, C4, CH50 #### [facility] , #### CBC, CMP, ESR, ADDONUAPLUS #### [facility] [address] [place] [address] [place] Color of Urine by AutoOrdere d By: Carlotta Stanley on 02-25-2024 Color (U) Yellow Normal Yellow [facility] Comment on above: Order Comment: Name Collection Type:: Clean-Voided Midstream Performed By: #### C 3, C4, CH50 #### [facility] , #### CBC, CMP, ESR, ADDONUAPLUS #### [address] Complement C3on 02-25-2024 Complement C3 159 mg/dL Normal 82-167 [facility] Comment on above: Result Comment: Perf ormed at: [place] [id number] Tunnel Worker: Thony Mcmillan PhD, Phone: [phone] Performed By: #### C 3, C4, CH50 #### [facility] , #### CBC, CMP, ESR, ADDONUAPLUS #### [address] Complement C4on 02-25-2024 Complement C4 39 mg/dL High 12-38 [facility] Comment on above: Result Comment: PERF ORMED BY: [place] [address] PATHOLOGIST ROTARY CUTTER OPERATOR SUSAN ZHENG M.D. Performed By: #### C 3, C4, CH50 #### [facility] , #### CBC, CMP, ESR, ADDONUAPLUS #### [address] Complement Total (CH50)on Complement Total (CH50) >60 Normal >41 T [facility] Comment on above: Result Comment: [...] determine out of range values. Performed at: [facility] [employer] [id number] Tunnel Worker: Thony Mcmillan PhD, Phone: [phone] PERFORMED BY: [place] [address] PATHOLOGIST ROTARY CUTTER OPERATOR SUSAN ZHENG M.D. Performed By: #### C 3, C4, CH50 #### [facility] , #### CBC, CMP, ESR, ADDONUAPLUS #### [address] Complete Blood Count Auto Di ffon 02-25-2024 Mean Corpuscular HGB Conc 33.0 g/dL Normal 32.0-35.0 [facility] Comment on above: Performed By: #### C 3, C4, CH50 #### [facility] , #### CBC, CMP, ESR, ADDONUAPLUS #### [address] NRBC% 0.1 /100{WBC} Normal 0-0.5 [facility] Comment on above: Performed By: #### C 3, C4, CH50 #### [facility] , #### CBC, CMP, ESR, ADDONUAPLUS #### [address] Comprehensive Metabolic Pane vijay 02-25-2024 Albumin [Mass/Vol] 4.0 g/dL Normal 3.5-5.7 [facility] Comment on above: Performed By: #### C 3, C4, CH50 #### [facility] , #### CBC, CMP, ESR, ADDONUAPLUS #### [address] GFR/1.73 sq M.predicted MDRD (S/P/Bld) [Vol rate/Area] mL/min/{1.73_m2} Normal [facility] Comment on above: Performed By: #### C 3, C4, CH50 #### [facility] , #### CBC, CMP, ESR, ADDONUAPLUS #### [address] Creatinine [Mass/volume] in Serum or PlasmaOrdered By: Carlotta Stanley on 02-25-2024 Creatinine [Mass/Vol] 0.91 mg/dL Normal 0.60-1.20 [facility] Comment on above: Performed By: #### C 3, C4, CH50 #### [facility] , #### CBC, CMP, ESR, ADDONUAPLUS #### [place] [address] [place] Dipstick and Microscopicon 0 02-25-2024 Appearance (U) Clear Normal Clear [facility] Comment on above: Order Comment: Name Collection Type:: Clean-Voided Midstream Performed By: #### C 3, C4, CH50 #### [facility] , #### CBC, CMP, ESR, ADDONUAPLUS #### [address] Bacteria,Urine None Seen Normal None Seen [facility] Comment on above: Order Comment: Name Collection Type:: Clean-Voided Midstream Performed By: #### C 3, C4, CH50 #### [facility] , #### CBC, CMP, ESR, ADDONUAPLUS #### [address] Bilirubin,Urine Negative Normal Negative [facility] Comment on above: Order Comment: Name Collection Type:: Clean-Voided Midstream Performed By: #### C 3, C4, CH50 #### [facility] , #### CBC, CMP, ESR, ADDONUAPLUS #### [address] Glucose Ql (U) Normal Normal Normal [facility] Comment on above: Order Comment: Name Collection Type:: Clean-Voided Midstream Performed By: #### C 3, C4, CH50 #### [facility] , #### CBC, CMP, ESR, ADDONUAPLUS #### [address] Hyaline Casts,Urine None Seen Normal 0-8 [facility] Comment on above: Order Comment: Name Collection Type:: Clean-Voided Midstream Result Comment: PERF ORMED BY: [place] [address] PATHOLOGIST ROTARY CUTTER OPERATOR SUSAN ZHENG M.D. Performed By: #### C 3, C4, CH50 #### [facility] , #### CBC, CMP, ESR, ADDONUAPLUS #### [address] Ketones Ql (U) Negative Normal Negative [facility] Comment on above: Order Comment: Name Collection Type:: Clean-Voided Midstream Performed By: #### C 3, C4, CH50 #### [facility] , #### CBC, CMP, ESR, ADDONUAPLUS #### [address] Leukocyte esterase Test strip Ql (U) Negative Normal Negative [facility] Comment on above: Order Comment: Name Collection Type:: Clean-Voided Midstream Performed By: #### C 3, C4, CH50 #### [facility] , #### CBC, CMP, ESR, ADDONUAPLUS #### [place] [address] [place] Nitrite,Urine Negative Normal Negative [facility] Comment on above: Order Comment: Name Collection Type:: Clean-Voided Midstream Performed By: #### C 3, C4, CH50 #### [facility] , #### CBC, CMP, ESR, ADDONUAPLUS #### [address] Occult Blood,Urine Negative Normal Negative [facility] Comment on above: Order Comment: Name Collection Type:: Clean-Voided Midstream Performed By: #### C 3, C4, CH50 #### [facility] , #### CBC, CMP, ESR, ADDONUAPLUS #### [address] Protein,Urine Negative Normal Negative [facility] Comment on above: Order Comment: Name Collection Type:: Clean-Voided Midstream Performed By: #### C 3, C4, CH50 #### [facility] , #### CBC, CMP, ESR, ADDONUAPLUS #### [address] RBC LM.HPF (Urine sed) [#/Area] 0 /[HPF] Normal 0-4 [facility] Comment on above: Order Comment: Name Collection Type:: Clean-Voided Midstream Performed By: #### C 3, C4, CH50 #### [facility] , #### CBC, CMP, ESR, ADDONUAPLUS #### [address] Specificy [place],Urine 1.015 Normal 1.001-1.030 [facility] Comment on above: Order Comment: Name Collection Type:: Clean-Voided Midstream Performed By: #### C 3, C4, CH50 #### [facility] , #### CBC, CMP, ESR, ADDONUAPLUS #### [address] Squamous Epithelial Cell,Urine 0-1 Normal 0-2 [facility] Comment on above: Order Comment: Name Collection Type:: Clean-Voided Midstream Performed By: #### C 3, C4, CH50 #### [facility] , #### CBC, CMP, ESR, ADDONUAPLUS #### [address] Urobilinogen,Urine Normal Normal Normal [facility] Comment on above: Order Comment: Name Collection Type:: Clean-Voided Midstream Performed By: #### C 3, C4, CH50 #### [facility] , #### CBC, CMP, ESR, ADDONUAPLUS #### [address] WBC LM.HPF (Urine sed) [#/Area] 0 /[HPF] Normal 0-4 [facility] Comment on above: Order Comment: Name Collection Type:: Clean-Voided Midstream Performed By: #### C 3, C4, CH50 #### [facility] , #### CBC, CMP, ESR, ADDONUAPLUS #### [address] Erythrocyte Sedimentation Ra roman 02-25-2024 ESR (Bld) [Velocity] 21 mm/h Normal 0-29 [facility] Comment on above: Result Comment: PERF ORMED BY: [place] [address] PATHOLOGIST ROTARY CUTTER OPERATOR SUSAN ZHENG M.D. Performed By: #### C 3, C4, CH50 #### [facility] , #### CBC, CMP, ESR, ADDONUAPLUS #### [address] Erythrocyte distribution wid th [Ratio] by Automated countOrdered By: Carlotta Stanley on 02-25-2024 Erythrocyte distribution width (RBC) [Ratio] 15.0 % Normal 11.9-15.3 [facility] Comment on above: Performed By: #### C 3, C4, CH50 #### [facility] , #### CBC, CMP, ESR, ADDONUAPLUS #### [address] Erythrocyte sedimentation ra te by Photometric methodOrdered By: Carlotta Stanley on 02-25-2024 ESR Photometric method (Bld) [Velocity] 21 mm/hr 0-29 [facility] Erythrocytes [#/area] in Uri ne sediment by Automated countOrdered By: Carlotta Stanley on 02-25-2024 RBC Auto (Urine sed) [#/Area] 0-1 [HPF] 0-4 [facility] Erythrocytes [#/volume] in B lood by Automated countOrdered By: Carlotta Stanley on 02-25-2024 RBC (Bld) [#/Vol] 4.14 10*6/uL Normal 3.60-5.00 [facility] Comment on above: Performed By: #### C 3, C4, CH50 #### [facility] , #### CBC, CMP, ESR, ADDONUAPLUS #### [facility] [address] [place] [address] Glucose [Mass/volume] in Ser um or PlasmaOrdered By: Carlotta Stanley on 02-25-2024 Glucose [Mass/Vol] 119 mg/dL High 70-100 [facility] Comment on above: ADA recommended refe rence rangeRandom Glucose Reference Range is dependent on time and content of last meal. Glucose of more than 200 mg/dL in a nonstressed, ambulatory subject supports the diagnosis of Diabetes Mellitus. Result Comment: [place] om Glucose Reference Range is dependent on time and content of last meal. Glucose of more than 200 mg/dL in a nonstressed, ambulatory subject supports the diagnosis of Diabetes Mellitus. ADA recommended reference range Performed By: #### C 3, C4, CH50 #### [facility] , #### CBC, CMP, ESR, ADDONUAPLUS #### [facility] [address] [place] [address] Hematocrit [Volume Fraction] of Blood by Automated countOrdered By: Carlotta Stanley on 02-25-2024 Hematocrit (Bld) [Volume fraction] 38.3 % Normal 34.0-46.4 [facility] Comment on above: Performed By: #### C 3, C4, CH50 #### [facility] , #### CBC, CMP, ESR, ADDONUAPLUS #### [facility] [address] Hemoglobin [Mass/volume] in BloodOrdered By: Carlotta Stanley on 02-25-2024 Hemoglobin (Bld) [Mass/Vol] 12.6 g/dL Normal 11.8-15.4 [facility] Comment on above: Performed By: #### C 3, C4, CH50 #### [facility] , #### CBC, CMP, ESR, ADDONUAPLUS #### [facility] [address] [place] [address] Ketones Auto test strip (U) [Mass/Vol]Ordered By: Carlotta Stanley on 02-25-2024 Ketones (U) [Mass/Vol] Negative Negative [facility] - UrinalysisOrder ed By: Carlotta Stanley on 02-25-2024 Hyaline casts LM Ql (Urine sed) None seen [LPF] 0-8 [facility] Leukocytes [#/area] in Urine sediment by Automated countOrdered By: Carlotta Stanley on 02-25-2024 WBC Auto (Urine sed) [#/Area] 0-1 [HPF] 0-4 [facility] Leukocytes [#/volume] correc jw for nucleated erythrocytes in Blood by Automated counOrdered By: Carlotta Stanley on 02-25-2024 WBC corrected for nucl RBC Auto (Bld) [#/Vol] 6.8 10*3/uL 3.8-11.6 [facility] Leukocytes [#/volume] in Blo od by Automated countOrdered By: Carlotta Stanley on 02-25-2024 WBC (Bld) [#/Vol] 6.8 10*3/uL Normal 3.8-11.6 [facility] Comment on above: Performed By: #### C 3, C4, CH50 #### [facility] , #### CBC, CMP, ESR, ADDONUAPLUS #### [facility] [address] [place] [address] Lymphocytes [#/volume] in Bl ood by Automated countOrdered By: Carlotta Stanley on 02-25-2024 Lymphocytes (Bld) [#/Vol] 1.7 10*3/uL Normal 1.00-4.8 [facility] Comment on above: Performed By: #### C 3, C4, CH50 #### [facility] , #### CBC, CMP, ESR, ADDONUAPLUS #### [place] [address] [place] Lymphocytes/100 leukocytes i n Blood by Automated countOrdered By: Carlotta Stanley on 02-25-2024 Lymphocytes/100 WBC (Bld) 25.2 % Normal . [facility] Comment on above: Performed By: #### C 3, C4, CH50 #### [facility] , #### CBC, CMP, ESR, ADDONUAPLUS #### [address] MCH [Entitic mass] by Automa jw countOrdered By: Carlotta Stanley on 02-25-2024 MCH (RBC) [Entitic mass] 30.5 pg Normal 24.7-34.3 [facility] Comment on above: Performed By: #### C 3, C4, CH50 #### [facility] , #### CBC, CMP, ESR, ADDONUAPLUS #### [address] MCHC Auto (RBC) [Mass/Vol]Or dered By: Carlotta Stanley on 02-25-2024 MCHC (RBC) [Mass/Vol] 33.0 g/dL 32.0-35.0 [facility] MCV [Entitic volume] by Auto mated countOrdered By: Carlotta Stanley on 02-25-2024 MCV (RBC) [Entitic vol] 92.5 fL Normal 80-100 [facility] Comment on above: Performed By: #### C 3, C4, CH50 #### [facility] , #### CBC, CMP, ESR, ADDONUAPLUS #### [address] [place] [address] [place] Neutrophils [#/volume] in Bl ood by Automated countOrdered By: Carlotta Stanley on 02-25-2024 Neutrophils (Bld) [#/Vol] 4.3 10*3/uL Normal 1.8-7.7 [facility] Comment on above: Performed By: #### C 3, C4, CH50 #### [facility] , #### CBC, CMP, ESR, ADDONUAPLUS #### [address] Nitrite Test strip Ql (U)Ord ered By: Carlotta Stanley on 02-25-2024 Nitrite Ql (U) Negative Negative [facility] No Panel InformationOrdered By: Carlotta Stanley on 02-25-2024 Estimated GFR (CKD-EPI) > 60.0 mL/Min [facility] Creatinine Clearance (Chem N/A [facility] Nucleated erythrocytes [Pres ence] in Blood by Automated countOrdered By: Carlotta Stanley on 02-25-2024 Nucleated RBC Auto Ql (Bld) 0.1 /100{WBC} 0-0.5 [facility] Platelet mean volume [Entiti c volume] in Blood by Automated countOrdered By: Carlotta Stanley on 02-25-2024 Platelet mean volume (Bld) [Entitic vol] 8.1 fL Normal 6.3-10.7 [facility] Comment on above: Performed By: #### C 3, C4, CH50 #### [facility] , #### CBC, CMP, ESR, ADDONUAPLUS #### [facility] [address] [place] [address] Platelets [#/volume] in Bloo d by Automated countOrdered By: Carlotta Stanley on 02-25-2024 Platelets (Bld) [#/Vol] 297 10*3/uL Normal 150-450 [facility] Comment on above: Performed By: #### C 3, C4, CH50 #### [facility] , #### CBC, CMP, ESR, ADDONUAPLUS #### [facility] [address] [place] [address] Potassium [Moles/volume] in Serum or PlasmaOrdered By: Carlotta Stanley on 02-25-2024 Potassium [Moles/Vol] 4.1 mmol/L Normal 3.5-5.1 [facility] Comment on above: Performed By: #### C 3, C4, CH50 #### [facility] , #### CBC, CMP, ESR, ADDONUAPLUS #### [address] Protein Auto test strip (U) [Mass/Vol]Ordered By: Carlotta Stanley on 02-25-2024 Protein (U) [Mass/Vol] Negative Negative [facility] Protein [Mass/volume] in Ser um or PlasmaOrdered By: Carlotta Stanley on 02-25-2024 Protein [Mass/Vol] 6.5 g/dL Normal 6.4-8.9 [facility] Comment on above: Performed By: #### C 3, C4, CH50 #### [facility] , #### CBC, CMP, ESR, ADDONUAPLUS #### [address] Serum globulin measurement b y calculation (mass/volume)Ordered By: Carlotta Stanley on 02-25-2024 Globulin (S) [Mass/Vol] 2.5 g/dL Normal [facility] Comment on above: Performed By: #### C 3, C4, CH50 #### [facility] , #### CBC, CMP, ESR, ADDONUAPLUS #### [facility] [address] [place] [address] Serum or plasma albumin/glob ulin mass ratioOrdered By: Carlotta Stanley on 02-25-2024 Albumin/Globulin [Mass ratio] 1.6 {ratio} Normal [facility] Comment on above: Performed By: #### C 3, C4, CH50 #### [facility] , #### CBC, CMP, ESR, ADDONUAPLUS #### [facility] [address] Serum or plasma anion gap de terminationOrdered By: Carlotta Stanley on 02-25-2024 Anion gap [Moles/Vol] 9.2 mmol/L Normal 6.0-15.0 [facility] Comment on above: Performed By: #### C 3, C4, CH50 #### [facility] , #### CBC, CMP, ESR, ADDONUAPLUS #### [address] Sodium [Moles/volume] in Ser um or PlasmaOrdered By: Carlotta Stanley on 02-25-2024 Sodium [Moles/Vol] 139 mmol/L Normal 136-145 [facility] Comment on above: Performed By: #### C 3, C4, CH50 #### [facility] , #### CBC, CMP, ESR, ADDONUAPLUS #### [address] Specific gravity Auto test s trip (U) [Rel density]Ordered By: Carlotta Stanley on 02-25-2024 Specific gravity (U) [Rel density] 1.015 1.001-1.030 [facility] Urea nitrogen [Mass/volume] in Serum or PlasmaOrdered By: Carlotta Stanley on 02-25-2024 Urea nitrogen [Mass/Vol] 20 mg/dL Normal 7-25 [facility] Comment on above: Performed By: #### C 3, C4, CH50 #### [facility] , #### CBC, CMP, ESR, ADDONUAPLUS #### [address] Urine clarity by refractomet ry automatedOrdered By: Carlotta Stanley on 02-25-2024 Clarity Refractometry automated (U) Clear Clear [facility] Urine glucose measurement by automated test strip (mass/volume)Ordered By: Carlotta Stanley on 02-25-2024 Glucose Auto test strip (U) [Mass/Vol] Normal mg/dL Normal [facility] Urine hemoglobin detection b y automated test stripOrdered By: Carlotta Stanley on 02-25-2024 Hemoglobin Auto test strip Ql (U) Negative Negative [facility] Urine leukocyte esterase det ection by automated test stripOrdered By: Carlotta Stanley on 02-25-2024 Leukocyte esterase Auto test strip Ql (U) Negative Negative [facility] Urine pH measurement by auto mated test stripOrdered By: Carlotta Stanley on 02-25-2024 pH (U) 5.5 [pH] Normal 5.0-9.0 [facility] Comment on above: Order Comment: Name Collection Type:: Clean-Voided Midstream Performed By: #### C 3, C4, CH50 #### [facility] , #### CBC, CMP, ESR, ADDONUAPLUS #### [facility] [address] [place] [address] Urobilinogen Auto test strip (U) [Mass/Vol]Ordered By: Carlotta Stanley on 02-25-2024 Urobilinogen (U) [Mass/Vol] Normal mg/dL Normal [facility] Provider Orderson 02-09-2024 Provider Orders [id number] 02-08-2024 Consent Forms [id number] Summaryon 02-04-2024 Inpatient Patient Summary [place] [id number] Patient Discharge Instructions Name: NOEMI BRAND : 1960 Patient Address: [address] [place] [address] Primary Care Provider: Name: Provider, None Phone: After you are discharged if you find you have any questions, please, call [phone] to speak to a nurse. Discharge Diagnosis: Prescription Information: If you have been given a prescription for narcotics, seek immediate medical attention if you have any difficulty breathing or any sudden status changes such as confusion and sleepiness. If you or anyone you know is experiencing suicidal thoughts, mental health, alcohol and/or drug addiction problems; contact the [facility] 05/04 Crisis Hotline -Text 4HOPE to 637200. If you received any narcotics, sedation, or [...] business decisions or sign any legal documents [facility] would like to thank you for allowing [...] by mouth) ever (more content not included)... Normal [facility] MAGR Intraoperative Recordon 02-04-2024 [facility] Intraoperative Record [facility] Intra-Op Record Summary Primary Physician: LINA SCHWAB MD Finalized Date/Time: 02/04/24 13:04:17 Pt. Name: NOEMI BRAND /Sex: 1960 FEMALE Med Rec #: [id number] Physician: LINA SCHWAB MD Financial #: [id number] Pt. Type: D Room/Bed: / Admit/Disch: 02/04/24 [...] Case Attendee Ev Bailey RN, Erica RN McMurray, Lauren M CSFA Role Performed Soft Work Cigar Machine Operator Soft Work Cigar Machine Operator Finishing Lab Technician Time In 02/04/24 12:55:00 02/04/24 12:55:00 02/04/24 12:55:00 Time Out 02/04/24 13:06:00 02/04/24 13:06:00 02/04/24 13:06:00 Procedure Radiofrequency Radiofrequency Radiofrequency Ablation(Left) Ablation(Left) Ablation(Left) Last Modified By: Luz Marina Huber RN Cecile, Luz Marina RN Cecile, Luz Marina RN 02/04/24 13:04:09 02/04/24 13:04:09 02/04/24 13:04:09 Entry 4 Entry 5 Entry 6 Case Attendee Mili Gordon RT (R) Magy Anderson Hunter CST ARRT Role Performed Bull Ladle Tender Bull Ladle Tender Scrub Personnel Time In 02/04/24 12:55:00 02/04/24 [...] (R) ARRT Role Performed Surgeon - Primary Bull Ladle Tender Bull Ladle Tender Time In 02/04/24 12:55:00 02/04/24 12:55:00 02/04/24 12:55:00 Time Out 02/04/24 13:06:00 02/04/24 13:06:00 02/04/24 13:06:00 Procedure Radiofrequency Radiofrequency Radiofrequency Ablation(Left) Ablation(Left) Ablation(Left) Last Modified By: Luz Marina Huber RN Cecile, Luz Marina RN Cecile, Luz Marina RN [...] Santos Mistry Gonya, Kellie N RT (R) TAZ, Magy Anderson Parker, Hunter HOISTING LABORER, LINA SCHWAB MD Last Modified By: Luz Marina Huber RN (more content not included)... [facility] 02-04-[facility]24 [facility] Preoperative Record [facility] Pre-Op Record Summary Primary Physician: LINA SCHWAB MD Finalized Date/Time: 02/04/24 12:57:40 Pt. Name: NOEMI BRAND /Sex: 1960 FEMALE Med Rec #: [id number] Physician: LINA SCHWAB MD Financial #: [id number] Pt. Type: D Room/Bed: / Admit/Disch: 02/04/24 [...] Signed By: Carly Mccall RN 02/04/24 12:57 [facility] Patient Handouton 02-04-2024 Patient Handout [facility] Coding Summaryon 02-03-2024 Coding Summary HTMLBase 64 CfcqpuryBLc4iBn+PGhl YWQ+WK7BLGFzS26bpUEp jF0eB9STRWoKDdnyDLIT RAoFDhBlbrPaZB8tuDAe ZXJu IC8+HJ0iTJQaDmppsUGy p1I0tAJ1V69jfi5lJQiq yKN3YAXiXsSovvxtj0ny rUs3AJwyCokaFjNg EOEnqF87WEK1yF82Wt19 kVLnhMWkq1mlyDj9XzUs KAUtXFF3pNofHQsfh3Kx JPKpT02ipCZwk8S8 IGNvbGxhcHNlOyBlbXB0 cC6dNRkhnmmsc6uhtznp Tvq6zg55hBPrs1V9bTM1 D6GgnnB7NTEszSOj DiwdrXKNvT0duhbfl1qr tfkpHmEfLMOoAIm4XJn3 LGFzwRemBgLdJB44RBC3 LDNeohHhV8UzBUSi qXvkGfD7h1S5Nz1ZG9AL JtseI4XRNQSXEAcbyPU+ CB36jd75A2UaJaowEkc2 OPBoEGB3sPY3jN9c BCIfGAjkf4L0pHQ0I7Do mxMfsl7ze3lzERIdWMgm F62kvTRbg4A9OGHdbNK9 VXOppFinQhXjgM08 Oyc+HECxlNbkb2OpPlvg e3lov6nhtIp4EandRNQm pxHtpPfcXSM0u4VfMt4y YBSxtQI4jQT6zV5e MdKoVfO8YCefM827IdQo jWXtUwlnK36kJ7LtoGR+ CORzQmp4VOZjbCebAW9q M0FgGMRiybqbqLWv aTzoXW6bSMRxoytfFFUs nF7qPNQdO3m6NiLtNuU9 FVamK8GfYKJiknopBy85 pH6zMnOrRvC2YVbe C6OkopZ3LXNuwRZiWYdt DFC7Y75ln2G7XODxJSId WQW0lGQ0vQ3ieBefycuj bGVmdDsgdmVydGlj AKdbGJnkA986AHXtcOlh PkNvZGluZyBEYXRlOiAg MDUvMjMvMjAyNDwvdGQ+ MLIaVWD2rJztAGJd jBDiHQgnNx2fxMuzrEyq GA0kYWUbjngjELFcfD7r DPZebKZapEvdHQ5dYELv ddcaq311GvMzPVZ1 JSKxxFHmS3KwuS9lKuZd QACkPHDwF8KdkRXhCHzd G043QWvgUkZ9LNRdvyJm A3KtNUPctRphXcV2 k3E6Zv8Ns9EeypxyB6Bc xIDfXkNbXxueDTd8S7Ta PjwvdHI+GK87FDIeKN33 XJu0PZS6yGliDMzd WBNkF2MdwB4zKdKaGENe ZGRkOyc+PHRhYmxlIHdp ZHRoPScxMDAlJyBzdHls ON2cJk0qTJWbLFOf nNqhyCUxDzYcl8mcCSGu PLttYN8jeQozX1UqiGH3 BZWzh2a3Vm67M84qM2Vm dXA+EIZjmFC1zBS4 wU1yGxYwDaH8AVepM500 RbSkjQGjOmzhm5cfk9mw qGz1TaF2CCZbjbSfiSzl RSG0h4IwNn95M31j IHdpZHRoPSIxNSUiIHZh jCwtqo7riK0jDu9+PGNv hIP9tKJ0fF1qHlSlNgM5 HXyfF010TsSnzXZx Cbbxj6swt7jmcFz4EkIr XHThthEubGpeLOK9v7Ss Iz91E6FsyMwds9MyHtb6 ez96kCQjl6B5nLG6 D1ZzFDTjeefyyGTevVzv DB0tWSWshcgpLZLclY7f SYEdA5g5OvExNuI0RIsx I8GcbiM5ANBbmTUr KTErqLPIpN8jbrqhn5fp bbgwVrKgDLSfGDs9VXv9 VTBmsGwfBlLuXKL9LsT2 WGP2bPVhxE6yaOcx vadpgB5xVoc+VBO4fGKx zDUBQU2cGsplmID+PHRk OMH7hRphDFquMRZteY8h GXJvK9k6TqXkHbV8 ZFfnB5ZkskV1KUPwsBSa TZSynHZZoM3kqyeyk0bh ixnhMxHqAZPyVJq2YVj8 LWFsaWduOiBsZWZ0 SyQ1UAK9iXTfoX1tuJzh ydfuvN5sVkq+QmlydGgg ZHT9WVu0O8QgQbe0QZJz sUneDA9fiYBkWVgq Be8utOpciMwmQI1lEJRs ymjjt656LpYsp8fdKATw yBJnFQkbXAI0N21kl6V9 AHBhBFBcEMY6hMZ2 cO1bkEukpqjnxRUuzHty syCkcErsAFuhVJqhO326 KLQguHakFdCfCAe0K5Oa Gqf9YIGytBmzDF6i kZVxUSqeSt1ftPdedBei YW1yOQSymlonk328MbOs v0nhODIdsCOxJLkwZWL9 Q20bk3R6RAUcTHWb OKP7xZN8lO5vkQhvnucf bGVmdDsgdmVydGljYWwt MFchD534KVJsgLumClBe nDp6N3YeMra8SBOl zBzxUL7jsHXfKUvgEn9c vAonxMhwOL6nUFFyfuuc u585MeJdm5ytGOFgsPVv EDfnUMC1H57ou5Q0 PDQwSZElAJX8zIG9sJ7b bGlnbjogbGVmdDsgdmVy pKhtQIpoMEogL913QCEd cDsnPlBhdGllbnQg NWaiXRo0C4OsFsoajBQ+ AJ22DGGwPM30iFUixSNh m4fpeZl3PpVmICEkGWI7 lTiaMRzpq8FfABDa C02jnVEro4Q9PENkwKio aLYiMaOukGI7yC0mNFda ehjgq6migvsxAmxge9qm cy89aA33C16eZVzx ZHRoPSIzMCUiIHZhbGln bm5umW9rCk8+PGNvbCB3 yJS6gU8jNNKrAnX0XCrk U757GtWecMXfZavc a8hpy6yquCk8NzR3QGMj obUhnZxsXPB7i3BgTj53 T34nBLwwFLAcEPDvYLDy APZegXrcgp1dhD3h Ii8+DPOmcEN4hIY0cM0p TbFrVtP4WHeiO644RbLp iWCyUgxwX62xL6OofXG+ TTYwFel1RTKrzAkm GH6eoEEfEHvjVj8pGWG9 VyZmApXaWJoyF4IpQGTc tzqzzauqmVR2KONlZWLj hB86Hd5eqIukFCMc iQTNyI7uybwpc4ynppdb HcYhZZLjQCj1QBt7DLAi oBwdSbIhGLS9XnX0VTR8 mYWqbO5nbFcjmzfg yT0nL0CgQWXzhufcIu98 iD0aEtGkJfD4YHvmMun+ QEcJRYabP8HAULcbKJ3J NHPYUK08MG92rFVc y0Z4iZW9P2JmFDDpjvbk gbgrxOY0SAJyQCMkwF92 bJXzFJjlEb7hx5O9o388 ADXtICWtyC07Aw2g tVfpZUTpkRSDrJ3uqkmu g6qbmvtjCqCrDIXvOFc7 CAq2WUIrsYrxYfAaBYD3 RdX8LNO7yOOcfY1l rRftyjlivI4oFll+MDkv RwObFPt5JAawwNJ+PHRk YDA8tChhNYunZBTkxU8i GYWfA2y9TsWoHeK4 KKthV3EmZPMahiddMc95 dR3mRdXwDlY2EMuiL2Id exH5FWPcgEKtARxrRBL7 V92tc7J7EVFnXUMy LEU7gWZ8kL4kfFomncgx bGVmdDsgdmVydGljYWwt OHndB905FKDfmQsgOaJd BDxwQKPrAL87RE01 dGTfy3O2yWW0U6ArXMQu xeorbydfcFR3VIFqQQWs iR59yYAiXEgoGs4ht9S9 l284XTYpGCAteZ77 Mc7hiOmzBYVwhLSYuR7d uxrht8vvroapRsXfYZPa VUd3WPj5RAJttSdbPhDa XHF2HrY3KCZ1mBFh tA7bxQlvntpfaM7rPof+ QtYDMOeHID95GR56vGIc k5U8cRJ4N1EmBKLggraw kvhfsUR0TPCiGOBd tE68fZSeOMiiSs9hz6P7 v800NNUsRIDehH74Sa2b mTstVDVfeBAUtN8kphwx o2bfluvbAmYpYERk ZGd5IYm0QMQwbFamWoIf DVX7ObH4MJQ4bKYsuU7r jWkpxxktrW9cKhu+T1A8 R2LcHfzadQJ+PC90 VSBpSC24vKCzuEGsa4ps nQm6HyJwEVCiSKF8uCxp ABloa8IpLXEbZ14pkVCj b9H1NZIhdYpanGPp VbMtpRV0wR4pJDbvggpg p2pxniqaHqanm0kpfb85 vI22H69vGWtqHEQdHDJg ZVNbQWVfnArvds9x zS3lEd4+AGFjyTH9mAM3 jN0vHvVuGlK8QTdmC724 JuYpaVKgEnjbb4ivs2id rIs1VlOaSFDqyzYk pHoyUDX2p1EwQh99Q58h IHdpZHRoPSIyMCUiIHZh kEamlm3ecI0wQz9+PC9j t6foaa21mX14mIA+ VMZfHVR0dEimGNfpMDMl oC3fEUybXtE4JSPhNwKc jO82iUThWFrpYm1sfAhx uCulQM7vQKJmgpot k480AmZyi8jkHOMxhHAj MXmmBMH3H60rc1U1LSGe YUOtIMT7aMJ2yI9rpRki bjogbGVmdDsgdmVy oYckYKegSHaxV033BCBm oEcpCjThrNTuP4acgaHH RF7gEcqenUP+PHRkIHN0 nFzxZRnxMKJaaG0w LTBkS6n8NjKnRfU6CPko F2SpqkH0EZKbxOSxAOOi bCPWiI5afoqzq6uncdol QzKbYGKnUIs8BDi4 EWSttHrmLdPiLUI7FeJ3 DSZ4dNDfpC0msBnguirm fL3zCwo+RklOOjwvdGQ+ RVIqSHG4dJjhITnd RTUnvU8yCHQsH6l9KoIh MhV6NUuuQ6FmnrJ8QNLp nNRlQXGwaXJOxH8iroxh k9xuynwhLrGyCEVp JOv4LLr8DEHtqSipAdEu LCO3RtK9SHO1nZAgyG0r lWmxhgclqS6tHks+TVJO OjwvdGQ+PHRkIHN0 lIbrKMecNWKynY4uNFSi H8x4YqSiToG2YLbuA4Lq huR4BFSniALlPMJzxPEZ uO6dbawus5qbjpbv ZuHfERZdLTz9PYk7WABk vHnzZsAeNSP1JbF4JUP1 tKHyiI1ksPyrizpmsC4j Oyc+UBE2GKV4TK05 HO05E4ZeCtawwVNzfYK+ PHRhYmxlIHdpZHRoPScx JEKpNmHmvOvfXL0gXs6u ZGVyLWNvbGxhcHNl OiB (more content not included)... [facility] Progress Note - Provideron 0 01-31-2024 Progress Note - Provider [id number] [email or web address] 04-18-2024 Coding Summary HTMLBase 64 RqkclxgxOVo3dVo+PGhl YWQ+UW8ZGDNjH67mqWPl rK5kT4RYYDvFVlckZWBG BWrTXrUhmcOsPH7umETz ZXJu IC8+HY0jAHYrNrohyHIa n9W2cFP5X83kmw9ySFng vEV6NMVjMlIpdoamx9rb uHg9ONfyRjtmBzBu YSWtwJ12WPZ7aC41Dp29 yLJwsLAwp8mtoVk8QhGj UHYfSWU3wQbhDWlot9Kr TYUwH27ukYFts1K1 IGNvbGxhcHNlOyBlbXB0 aP5gCRujkxqce6sinhhn Jrf4nk80bIQeg6O3bNW9 L4NzfxG2UMMdpGIb EtblzYFVhN8sgtxqp1xc inmhGfYmWYWrRJw2QSh2 KLZfmTtvHtMpRH05JJM1 RQAukaSbB8LfAXPu rOcmIxG8a4F7Eh8JQ5FY SnptC8OMDHGYAKawbFZ+ AE40mg40X3HrVgmxIfb5 QWJyBOF8dLN8lT3n CUZuDBlfb9U7sND6C0Sm dqLmkc7wm4peYJJhVHco X18whSPbx2D7FAUbcFY5 LVMlvOitCqVsoO73 Oyc+HPZmkOpyh3OjUpud g4bmq0areBg3TfeoHCBd wcDoeKfvOPM5f8MwVk9u TBUmnBS9tXR5mG3w RvFpMuW9UCowQ296VzAh oOAtOtzeK46dJ7ZkrTH+ ISGhNvv6RQBfyHxzIF0a T1TwPZRjhzirlYXv rMswXE2rWAXuggksIMJi vC1iNDYaC6p0JtHvMsZ2 RDchF1KjIXBjstpiPa32 mZ1bRjWlNyD8STan Y5XpynQ7IEAxsZLbZMvc BYM0V58ak9V5RYThDCDh HCE9mUF5vK2yySwnulyn bGVmdDsgdmVydGlj QWoqXMraU820NIKwxVwq PkNvZGluZyBEYXRlOiAg MDQvMTgvMjAyNDwvdGQ+ BLUdZOS1yUorHVCz yDOeFLdjZc7erRaxrWdj NW7eXOXwgjziPZEphL2n TLIsuXNaaGgjLK3vNQLu zdseq105XiWpTOR1 EMQkbCLdA4VjuW9eGdFu QAZvLMZuO0LwpTHmURmr W500MDqjPeI3HINxuzIy J9JwPAWteUrxFlS3 l6Z2Lq4Lb6ExbqnfM0Jz fPMxCcJbGxdfVQc8D5Fv PjwvdHI+UE44XGRoUZ05 MPu8PJC1zSusRIcz WBGeY3LqzO6aXfYbCQYf ZGRkOyc+PHRhYmxlIHdp ZHRoPScxMDAlJyBzdHls AN7kAu4bSULsQVMk qXchwEIyZcHpa5yyPIBo VCcoCG9vsExoP2MfkHX2 WNFyk2a6Wu06W11hS8So dXA+MWFkgSN5lPH9 iH7iIlYxWrE6SSovU775 CpGpfMUpIeyub3usn3cv hQk3XvF8QFXylaLtuUou HHN4r6XcWg70B03l IHdpZHRoPSIxNSUiIHZh mZecan1gmK6oEq2+PGNv aVX0jEN6mD0iJoFbPtO0 SWzeN090EqJuxLOq Ogqdi7cyl7lhqUx7AtZj JWArgxLbnJwrPRR4k8Fq Pz40Z7YjjMfth1QzXdq7 pz54lUDju4Z1oQM7 I9YaRDTdkjusgLLvnIxw PM2pSMVbqxldRNTheH8a PJJpY1k2KlRvCtP4ESoo X8YhryC4CMEtsDTy TWTnyVSDjK6gbonda2pg oaxxBfTsANNhMZm7KDs5 ACNpiWmmTbKhXYC1EjU7 WOG4dGHttH4tzVbf gczwhE5cWtj+CFT3uWYp oBCNWD8hPjgjeES+PHRk WLI4uOfuUCahEJDwlI7u VBDyY3h2OxQcOvH0 EZgbW4SjchN4YCPhxFId FBDjaSVAlY0laapna6ws lxmqChZpGYIiLGg2SXh2 LWFsaWduOiBsZWZ0 PeY8LBR7sCUsyR7nsFjx alundX7rXfr+QmlydGgg MEN7TDf3H5IjAld7YDQz jBqhRG6yoFThZDtp Oy0ruGbsoKcsMT6tJXYx ddrku358FtTqb2dbWZHg mWPnTDayKKS8S71to3N5 JTXnOYWhXJN7rEI8 yY7kkDrhcuitrDGouHzm blJncHlmXUmzUZjvR075 LRSmqPqrRuUsKDs2Z8Pg Wbd4IAScpZicGX6z tGOlSWuiYg6tuNrjnCwl ND1xRLIcyuxoo188OaWd x8xyCATmfREfAMbaOKZ5 S59lw6G9TMXdMJIf VER0uOA9eR5zuAlkzfow bGVmdDsgdmVydGljYWwt PGzcF362YAZcnKagEkHt bPl4Y2QjEib2DDId fKliFL8asNLdZZjgGh0u hYbetKpwFU8nQCBzedzi o532YtEcg9kuXCBhcMPv WDllYXH1F85ih2H3 BJTaSQTlOVN8tCH8pZ7o bGlnbjogbGVmdDsgdmVy nEdqQYqvKZqeF973YTTv cDsnPlBhdGllbnQg OFszGLm5S4LzLgnidCT+ NX63BWKeCV02jJBoxGIt o1ywgCp0SfYqKNSpVFC0 hVjpJZtsp9IeICFf V56urGRuo7A8JTQruKqv jYDlFkCmrKZ2nQ8dKRjd zqmwh8xyalqfUrsys1hx ub76wC94W46bNPoz ZHRoPSIzMCUiIHZhbGln ue5bhT8mFs4+PGNvbCB3 kVC8uR3iMWAlJiE0HIgf V740PkMxxOTxGgca b1ztk4akmXc6RmP6RZYj yeHdrYioNCK7n2TxPm20 C03eZMmkTZZeHBXnNJBv RQKnsOrrse3plI8w Ii8+CAJqwSO8zZB7hC8d HeEcQvW5RPlhA222FmFx pJWtCsslB51dZ2XtuGI+ XFWpBpl8NXXelEge WO6nvATrUBicAi5sJOX5 AiOdSmRfMEnpD4YjJMOa rlurjnlirVG0GBGsTAWr dD01Er7drFoiLJFn pIWRtJ4dyhwrs7ixkrya ImKeAODeDOt4XCa3MTMs tPtdVzUgFNA6MoF1XOE3 kBJdxU0ivFdmtqes aA7xX2ZkKFGadnkjRu77 zQ2qBxYnHtN9FOtgGnx+ XDwIQIswB6MIJLsxJR9K DJWLRV39TT07cWVf p8W8rTF6D7GxURUbbjss jqeauSY9QMKnZQPgmZ37 jRUwTLvmGd5di7G1x536 EVTeRSQrfI66Ip5s vLxpLOSrwMJAfB7fiaei q2szgqjuXxSeMHHeECj5 FEp7BZXytAwjCcVuPMB1 BdN7GKW4sVUjcY6t bWxmoffhwB7lQjj+MDkv KcFdMVo1YMpfmBC+PHRk HUC6pAglPZziCGJwsR3f GWSiJ9t3ZxVeBdK4 AUaqO4PcOQBiasskTi07 gZ3dRpMhKgG4SAdnO5Qb dhI8WGUhyONcOAyhYUA1 R86iz4L9YJAyQKSt EEA1oHG6wV8jvNztauxz bGVmdDsgdmVydGljYWwt KBeyH843VNSlcQdaXrYd WNwoDCZkDQ76QL70 rQRap4A7zXN7R4MaAPCc cifhanvkwDE2VNJqGJNp gS39gQUpQQuoMr6fv0T7 t153DUAmHPBnpH12 Ym9kkZcbPPUfyVESbK2x uuioa0srpgpnAvHzMKTd NNe7HEk5NSUneTcgVvIf CCF3LvZ2BMV5oGJq yS7uwGebjebvzJ1bEfr+ DvKUOGtIHM04JA61qROf h5I0hHA6G3BoLKHzcjdw evflwQX6DVWvZEIi yZ32dOQzIWoyTi9lf2O5 r410RXDwYUGzmV04Er4j fLrmAQRlwKMLwX0udggd u5obkdlzFkHsLCBt ZLr1FCh1KGEdqWujZrFg VWU3DbE3GYZ3nGYveN8e dJpbwdkdpM7hCoa+RGF5 DLO2yeljvqy6T9Yb PjwvdHI+WT11SSNlHP91 vYGlmRFak3xhlSl8BsTo VIPdTOW9yKznRZmbb9Zr XBRgM11inGGpj9Q1 IGNvbGxhcHNlOyBlbXB0 eU7gZGflvrxva9aphued Mpzma7oqyt06uT56A47g IHdpZHRoPSIzMCUi ILWfsNbbsv5dfW5vSv4+ BBScwKQ1eIN5oG6mVkKy XiV0GPqaY284IxLezDVb Qdmid9qzb8eopEv4 IjIwJSIgdmFsaWduPSJ0 l5PnIz82Y13uKUfeURGn THZoVUVdEKVvgTdgcw9t lI1zIv3+AX3ck7ip fk76tL06nHI+PHRkIHN0 nCcoMDwuEKZyvW2hAYcu CyA5UQJzPaCquQ44oAKr AGrfHe2mzTvaxHgk VO0eOLDqaccba293VcRk i8igXAUcuWUzSZoiFAH0 K05js9L9DCEvFCHpUNV7 nBC3dJ2feXvpqmmi bGVmdDsgdmVydGljYWwt VYxqV728DEWcyWhnXnWc vVLiB9avppMJKY2sIzqm dGQ+HFEgYEL6nZnp BJtvOAYkzP3gHLBjD8l8 ZiGyUlR9LPrtG9RbzbC1 VNEidAOnYENzlWXWmW6o gzgao8sybvtqXyJv LYKwFYv4XQz6KHNvcIbs HgHtWSC7PrQ7BTF1tWDt kF3jxJtbcelkmY2xByd+ RklOOjwvdGQ+PHRk NSV6jZniSLfwRREzoJ0r KQXcY1k6WeTaTtR0HCsg G9HkphO2OOLjxEZlBPIy gFPWaB2fswjej4gy ibsyGeXpFNVjOMb0OTg4 SDFtwNocKyUoEUG8JiQ8 RGV9iFLdyH4fzDqinqgj jZ9kVza+TVJOOjwv dGQ+WWZpIFE5aRqvIAmk MXOxkB2wSSQdJ6m1ZyBz SoJ2WQpnV0MuyyG1KLFg zSBcZZWcmXWBwM8q zjqav9zbanvjRhQnKMQd VTj7AIa3FDBaoKabVjTj SPF7QeG0XGD1xEWlqF0z vUjvbdpixJ4cJpj+ BGY0SGE1CX70VT11I1Za PjwvdGFibGU+PHRhYmxl IHdpZHRoPScxMDAlJyBz bLumEH1dMu4tVPYb LWN (more content not included)... [facility] Consent Formson 12-27-2023 Consent Forms [id number]. [id number] [facility] Inpatient Patient Summaryon 12-24-2023 [place] [address] Patient Discharge Instructions Name: NOEMI BRAND : 1960 Patient Address: [address] [place] [address] Primary Care Provider: Name: Provider, None Phone: After you are discharged if you find you have any questions, please, call [phone] ext [phone] to speak to a nurse. Discharge Diagnosis: Prescription Information: If you have been given a prescription for narcotics, seek immediate medical attention if you have any difficulty breathing or any sudden status changes such as confusion and sleepiness. If you or anyone you know is experiencing suicidal thoughts, mental health, alcohol and/or drug addiction problems; contact the [facility] 05/04 Crisis Hotline -Text 4HLUY en 271586. If you received any narcotics, sedation, or [...] business decisions or sign any legal documents [facility] would like to thank you for allowing [...] mouth) ev (more content not included)... [facility] Intraoperative [facility] MAGR Intra-Op Record Summary Primary Physician: LINA SCHWAB MD Finalized Date/Time: 12/24/23 08:22:54 Pt. Name: NOEMI BRAND/Sex: 1960 FEMALE Med Rec #: [id number] Physician: LINA SCHWAB MD Financial #: [id number] Pt. Type: D Room/Bed: / Admit/Disch: 12/24/23 [...] Entry 3 Case Attendee Ev Bailey RN, Iveth Holcomb RN RT (R) ARRT Role Performed Soft Work Cigar Machine Operator Soft Work Cigar Machine Operator Bull Ladle Tender Time In 12/24/23 08:02:00 12/24/23 08:02:00 12/24/23 08:02:00 Time Out 12/24/23 08:24:00 12/24/23 08:24:00 12/24/23 08:24:00 Procedure Radiofrequency Radiofrequency Radiofrequency Ablation(Bilateral) Ablation(Bilateral) Ablation(Bilateral) Last Modified By: Luz Marina Huber RN, Erica RN Luz Marina Huber RN 12/24/23 08:22:24 12/24/23 08:22:24 12/24/23 08:22:24 Entry 4 Entry 5 Entry 6 Case Attendee Vikas Cody RT (R) Hernando Salinas CST, THOMAS F MD ARRT Role Performed Bull Ladle Tender Scrub Personnel Surgeon - Primary Time In 12/24/23 08:02:00 12/24/23 08:02:00 12/24/23 08:02:00 Time Out 12/24/23 08:24:00 12/24/23 08:24:00 12/24/23 08:24:00 Procedure Radiofrequency Radiofrequency Radiofrequency Ablation(Bilateral) Ablation(Bilateral) Ablation(Bilateral) Last Modified By: Luz Marina Huber RN, Erica RN Luz Marina Huber RN 12/24/23 08:22:24 12/24/23 08:22:24 12/24/23 08:22:24 [...] Marina Huber RN, Iveth Anderson RT (R) ARRGlo Schuler Luke T RT (R) Brad MCGHEE Hunter HOISTING LABORER, LINA SCHWAB MD Last Modified By: Luz [...] By: Cecile, (more content not included)... Normal [facility] MAGR Preoperative Recordon 0 12-24-2023 MAGR Preoperative Record MAGR Pre-Op Record Summary Primary Physician: LINA SCHWAB MD Finalized Date/Time: 12/24/23 08:29:07 Pt. Name: NOEMI BRAND /Sex: 1960 FEMALE Med Rec #: [id number] Physician: LINA SCHWAB MD Financial #: [id number] Pt. Type: D Room/Bed: / Admit/Disch: 12/24/23 [...] Keshia Mack RN Document Signatures Signed By: Sheila Mack RNli L 12/24/23 08:29 [facility] Patient Handouton 12-24-2023 Patient Handout [facility] Coding Summaryon 12-22-2023 Coding Summary HTMLBase 64 VjjgikblDTb4lIb+PGhl YWQ+QP7DKPKcA41atFGn cT7hN9QYEJaCOjqnACXT VOmLEwGxklJsJD2hfYVg ZXJu IC8+KB5bTPZhSrsuyVVi v6K9wGJ8F32kmp9mLGcb nHN2ICXpUqMbegpro2pn zIr0DWhzBpvpFqRp NAEjeL89FHX0wD98Hi67 sIYwiBXqm9sdpZs4KxYc MHPdYAC2fPcsCAvyw9Xz WLEhI36hyBMtw4T9 IGNvbGxhcHNlOyBlbXB0 tK7rRJmizajlw5qngaem Pyr4pe19yWDio8X6oCO4 H2HwygT6WSMrcTPm ExsufESHzO1iiqbvo2sz naelSnKxXCPzCXd2PNg7 JSOqkMmwMwQaXR38VYM1 ITQmmvTmM3DxTRTo dRdpRdE1k6D0Pw9GF4ZT MykhW3FNSPSYSTehgPI+ WZ91ip48Y7SpHeosTzn7 ESDsBRF6qRO5xM9r KAIdDQibb8D6dDH9E7Zc eqMjxq6ma0afSJQrAYpb U33fzBWnz3Q7OZGtvBT0 KACgvMdhCgAyrE65 Oyc+LETmpWqvr6JhZsnq v2yhc5anxYp4PpajUTNb icPyxJkuENY7m2JyMn4q HTJfjHV1uRX8hB3y NnBmSaR5UIypI078VsGp vQGhJtzxM36sR7YktRZ+ LYDsCti7DURjuGsdUB5r R1AjVZWimaxdgZKa aZxqAE2zZDOudgqxUEVc nI4zIRPlM6l4YzByTqR1 NYdmZ6JzJHHslgjrHs15 eU0dAsQcWzM1ICsh E4YiqxE3GWSboMIpMCtf YQQ8V03lp8R5XDGxGBVu WLG9cJQ8tP2hyTxbbrfr bGVmdDsgdmVydGlj YXebVIrcC806JIFucQan PkNvZGluZyBEYXRlOiAg MDQvMTAvMjAyNDwvdGQ+ ZIInOBG5cXfvBENu vCWqJQsnRe2cgMgobLdy OG1zUAAvyudwGSNqnC0f UYZdtJGedEzbFU1eHWSe vsorg973WrAfKIY6 XQRqdUZzW2YbjZ3iCqZy DTCuVJNzT6IkwRQhSNko V695JIqyGqL0UYDmipWx R7MbPFNjlAqqXvE8 f1Q7Uh4Od4PeqfadU1Rj aNMiPxEtLdwzKPb8F1By PjwvdHI+YI64BFBqLK25 AKm7XQJ1cUmcERoj CKSqI2OvqP9vJaLwUXAc ZGRkOyc+PHRhYmxlIHdp ZHRoPScxMDAlJyBzdHls NQ4vBg2eHDKtVXNm aHqjeGHoOxFcm4vnMLDk IAcrUH9seFrzR1ImjYC4 WMLzf3a9Bb45G11eO1So dXA+WHVzbCS3eRZ7 mA6sWfPzTwB3IVzaU217 DjFzhIFcPxmto0ojl8wv cTt2CvZ7DGAuhbLpaRln XGB0y4OjGu48O07y IHdpZHRoPSIxNSUiIHZh iVtkks2baJ1yBs5+PGNv bMX5nWM6cK9tHhExOjY4 EVbyB987GnJtdVGx Oftpp2ywp6ubiCz3RcDa DQLqwrCkwJqhVYY2y7Gn Kh63U9GhrAllo1BzBsu8 cj59sDNwg8J1yUC1 U2WqIQOtmqhzfSNatPbu CI6rFVIspzenBMKmtN1e QWYgE2j7RxKeJfT3ZNjo S6XsrpY3LLMciFXc SPVccBZUhI8mtejgn1wc uvviUtYtYIVbQOx6ZUq8 YDYyoRiwOrFeGJX3SzQ1 IKR1bVWwhE3psQaj oddbwB9rYec+MIE1mNSq nCXWTF0aUdykwAZ+PHRk FGP6bWyaEZwnZSXyrL6q VZBpL9u4VzTpNzT9 EZftU7IxabY4ADMgwBSf JBRsmRYBsI1jzpalt3vy bbmmFfAlIYEdWLl9OPf4 LWFsaWduOiBsZWZ0 QjB8TOL8rDKzjY5ewCkk hsyqqT8cFny+QmlydGgg TEH8YEk5O8WqAer9ZXJp lRboOV0vtAAgJPxg Ov0tzCzsvCqlGH9lMXDu srdrv801DuWoj0eqSOWa mBBgUFqiPNP1D42xn0K6 GFSzGNXoCVI2wSS4 eH5wjFhtofkzdPOhxMcj bjEjrEwfOLiyTZxdH598 DVYkdEqqCoRqQRz2A5Wb Vae2OVQuaExaGU1a gAOeVYskCf9dkVbouMtk OQ7mJXRnwezbt138YbCs h9phPRKdzFUjVAriXEE1 J01kn1A2BCFnHRYf XDQ1pPU8sT3zwPsjkigq bGVmdDsgdmVydGljYWwt YGwvX687AUTvzGvmWlHo sOp0J1LrWlj1OSAv xMrvND1xyHCwEPjnNn8l nNrtsQhhIM3wDRGpbdzw b015AaWbj9qdCXHfrYDn ZMpuIYF7G34ir9E7 FEMfJZCkUCD8vDX1kH0e bGlnbjogbGVmdDsgdmVy pQqvQPihAOfwE354PWMl cDsnPlBhdGllbnQg FPqvJLr6F0LvWhfneBT+ EK61MDUkHK79lYHwhSYb h6jfxWz9TiYfSTZdDMT7 wZkhLMlsf0WhJTKx I43fcAEus9V0HECwkHts oMDtTvXbjHG7iN0eNRbh hpxwy8rfzlpyFrnnv7vh vh94hZ91X94aIFrp ZHRoPSIzMCUiIHZhbGln zj1ndB0dHl1+PGNvbCB3 hDF3mN8vIPGaEzO4NDab K671UsTftMIuQbfg a8zwu9pybTn9PaA9GKFv rvSvkErbAUG5j8IlRn50 D55lVFiiTHVrLPBiOOJe QNHxoKdlva1qzA9b Ii8+ODPoiEF4yCD7mG3h FmIlIbV5TMjiY353BdMr gIHuEmlbT67wP3TvgFD+ QEZzWxy8YEHqlHun LS8ktDSfXOwwXm9wZYL2 AzNcBmAhTJwnH6BrGJHu bgpdtkgsrJZ0ZTChJURs uF16Jc3lxSrtGIKl iRLVwO5icthof5eljngw XxRpCCSbHJl1CWt6ZPOy zSlpAkZtLGY5VaZ4NOL9 dOGshO4wfVysdcwo mV1jG2IsVSCkljipDc83 mE5sSpLpFpL3GTxxNyk+ FDtONWdmC4YJFHivQF5Q RJEIAQ68XP68cIZf h4S2qNA0U2UrCTTnnxuo jshkjTD9FXEbBWVdgZ80 wFSoMCrgCj3va7F6q615 BFLoRSWszY44Po6j iYcfBYNhdCJVfB4rjvcy v3zirdynHxQwCCEdBMk5 KSg7ELVvqYimDnIeLGN9 VwJ4KAJ4oSMitU6m qOqepyfasW9lOqn+MDkv XkOaZVc8TYoyuFQ+PHRk UPP7yKtoKCjwZLPwdP6w TDWnP3t6ZuAnMrM4 PRvvK4IfPEDdexduNq74 mG5sGoDdUjR4UTmlW6Xm ucF9FMJneHNpJHpkQYG6 H35ef8D0TJTeODJm LLN2fOL9zZ7hjDlsiwcv bGVmdDsgdmVydGljYWwt EMujF080LEYjeKbdNgQc EAhkDVRkHS74MY30 sONxe7Y9jIE4K5WzKEAq itnhrrtppOX8WNDmZPSd sC58aVWkMYimRl5bx6A5 k298WRQfXQLzdP10 Sy2buYasRLTowVOCuF9f enjzu9zcupjvHxKsYCEq NSt3XKp8LZSdfWbuInTu EZD0UlD4XQZ9pJXq iR8gdHqiznwwzU0tMrg+ PqISLUhKEH96YC02rBGl o3N3dEB2H7TmWLYuwsqq lehbgCX9WULsOHFa nO20qYOvRWgcQa5rl3Q0 e238SDBpOSWgtD68Xm0d hGweEGHalKTJvP7qsekq n0znhgdeCyVeRWUx ARo9ZOv1SZJkvYtqVdYt ZDA1SoQ1SXP2mNBlaR3l vIchnwxneE4jZyi+T1A8 K0CbTqqcjTG+PC90 MNWpFI39gHDmxMGoq9wu jKk8CvSaKLOdWSZ3yYup WLnkj1ElRHVkQ64asNIp m3G4SFAwfTludTUs ZbOjpMY9tZ6oINauzvlj t0lchpucMooqq6txfk26 kW44Z31fUZpwRFGpQJVq BGQuOQHvwTpnbe1z nB3dVq9+YACztBN5iFP5 nC3hWxWwGyM4AVawY822 TyMndCAeFakyr1bjj7yp eJt6GvKmAMPmcoDy nXeqUGD2d8ZvLe91W49z IHdpZHRoPSIyMCUiIHZh zBhgdn2mcK8pLt8+PC9j h6zdsl51gK91iES+ MXYbZSD9nXzfVHiuQVRb yQ4jLQacZiG3GTPrEoRv wR16kIQqDDhuDm2efZrl nJyaAT9kOVIgfwwz k517CdEma3cmIAWshYYd ZDkoAPG9Y16pm9Z5YXNd MQClEFQ1jKW5uJ8fuJhp bjogbGVmdDsgdmVy wUccPWtlDFmlM582HQWh yFhmHlRigIIpD2pyyaMS LI3zYnucmAN+PHRkIHN0 hBxgYTfwNSYsgL4e RPGiJ7z1SdHdCbV1VMms G5SmmeY0EAIweCGtCIQt aDMPoI2nfmzqb4cgqqri HbXrZNVlOMm1LFp8 XJBblCydGvJfAUB8XgB5 AYG6gUUqlK1zaDrbifbi yN7rJyz+RklOOjwvdGQ+ XWOmKMQ7qDvgWGai YGCchJ1yUMSvH2e4KxBd ZqI6UKicS2AkboW9AHXf fDKvFFXbhNDCsL8rkpmn e9mtvrzdNxKaEAOu WRg2PDq0BGAxuMkpYnSz UUA7FxP6HFS7eSDxsW4p pZdvyyrnzV8wUan+TVJO OjwvdGQ+PHRkIHN0 vYucORssYUYcyW7eCWGm G4y1GfYkBdS2XLjsQ9Su tcP9ZJAxkWYtSNQcfIHM mS9zakiqx6wavlhc UhXvUISeKNx0CZj7WRPa nNftMbHzFLB4FvR9KSQ2 yHButR9yvOscumunvC8w Oyc+DPO4ICV0ZS94 PE47M7NwUwzdqGDrgYU+ PHRhYmxlIHdpZHRoPScx NEYiXnXuiUxwHT9eAr1v ZGVyLWNvbGxhcHNl OiB (more content not included)... [facility] Consent Formson 12-20-2023 Consent Forms [id number]#1. [facility] Cont[facility] Substances Agreem entson 12-20-2023 Controlled Substances Agreements [id number][facility] 0 12-20-2023 Progress Note - Provider [id number]# 1.[facility] POCT Protime / INRon 024 INR Coag (PPP) [Relative time] 1.6 {INR} Abnormal 0.8 - 1.2 [facility] Interpretation and review of laboratory results Abnormal [facility] CBC AND AUTO DIFFon 12-09-19 24 ABSOLUTE BASOPHIL 0.0 X10E9/L Normal 0.0-0.2 [facility] Comment on above: Performed By: #### C BCA, CMP, TSHR, 2132-05 #### [facility] ([id number]) [address], [address] [place] [address] ABSOLUTE NEUTROPHIL 6.1 X10E9/L Normal 1.5-6.6 [facility] Comment on above: Performed By: #### C BCA, CMP, TSHR, 2132-05 #### [facility] ([id number]) [address], [address] [place] [address] Basophils/100 WBC (Bld) 0.5 % Normal [facility] Comment on above: Performed By: #### C BCA, CMP, TSHR, 2132-05 #### [facility] ([id number]) [address] [address] [place] [address] Eosinophils (Bld) [#/Vol] 0.1 10*3/uL Normal 0.0-0.4 [facility] Comment on above: Performed By: #### C BCA, CMP, TSHR, 2132-05 #### [facility] ([id number]) [address] [address] [place] [address] Eosinophils/100 WBC (Bld) 0.6 % Normal [facility] Comment on above: Performed By: #### C BCA, CMP, TSHR, 2132-05 #### [facility] ([id number]) [address] [address] [place] [address] Erythrocyte distribution width (RBC) [Ratio] 14.6 % Normal 11.5-15.0 [facility] Comment on above: Performed By: #### C BCA, CMP, TSHR, 2132-05 #### [facility] ([id number]) [address] [address] [place] [address] Hematocrit (Bld) [Volume fraction] 41.7 % Normal 35-47 [facility] Comment on above: Performed By: #### C BCA, CMP, TSHR, 2132-05 #### [facility] ([id number]) [address] [address] [place] [address] Hemoglobin (Bld) [Mass/Vol] 13.6 g/dL Normal 11.7-15.5 [facility] Comment on above: Performed By: #### C BCA, CMP, TSHR, 2132-05 #### [facility] ([id number]) [address], [facility] [address] [place] [address] Lymphocytes (Bld) [#/Vol] 1.5 10*3/uL Normal 1.0-3.5 [facility] Comment on above: Performed By: #### C BCA, CMP, TSHR, 2132-05 #### [facility] ([id number]) [address], [address] [place] [address] Lymphocytes/100 WBC (Bld) 17.6 % Normal [facility] Comment on above: Performed By: #### C BCA, CMP, TSHR, 2132-05 #### [facility] ([id number]) [address] [facility] [address] [place] [address] MCH (RBC) [Entitic mass] 30.0 pg Normal 27-34 [facility] Comment on above: Performed By: #### C BCA, CMP, TSHR, 2132-05 #### [facility] ([id number]) [address], [address] [place] [address] MCHC (RBC) [Mass/Vol] 32.6 g/dL Normal 32-36 [facility] Comment on above: Performed By: #### C BCA, CMP, TSHR, 2132-05 #### [facility] ([id number]) [address], [address] [place] [address] MCV (RBC) [Entitic vol] 92 fL Normal 80-[address] [facility] Comment on above: Performed By: #### C BCA, CMP, TSHR, 2132-05 #### [facility] ([id number]) [address], [address] [place] [address] Monocytes (Bld) [#/Vol] 0.7 10*3/uL Normal 0-0.9 [facility] Comment on above: Performed By: #### C BCA, CMP, TSHR, 2132-05 #### [facility] ([id number]) [address], [address] [place] [address] Monocytes/100 WBC (Bld) 8.0 % Normal [facility] Comment on above: Performed By: #### C BCA, CMP, TSHR, 2132-05 #### [facility] ([id number]) [address] [address] [place] [address] Neutrophils/100 WBC (Bld) 73.3 % Normal [facility] Comment on above: Performed By: #### C BCA, CMP, TSHR, 2132-05 #### [facility] ([id number]) [address] [address] [place] [address] Platelet mean volume (Bld) [Entitic vol] 9.0 fL Normal 7-12 [facility] Comment on above: Performed By: #### C BCA, CMP, TSHR, 2132-05 #### [facility] ([id number]) [address] [address] Platelets (Bld) [#/Vol] 255 10*3/uL Normal 150-450 [facility] Comment on above: Performed By: #### C BCA, CMP, TSHR, 2132-05 #### [facility] ([id number]) [address] [address] [place] [address] RBC COUNT 4.52 X10E12/L Normal 3.80-5.20 [facility] Comment on above: Performed By: #### C BCA, CMP, TSHR, 2132-05 #### [facility] ([id number]) [address] [address] [place] [address] WBC (Bld) [#/Vol] 8.4 10*3/uL Normal 4.0-11.0 [facility] Comment on above: Performed By: #### C BCA, CMP, TSHR, 2132-05 #### [facility] ([id number]) [address] [address] [place] [address] CBC auto differentialon 03-2 Basophils (Bld) [#/Vol] 0.0 10*3/uL [facility] Basophils/100 WBC (Bld) 0.5 % P [facility] Eosinophils (Bld) [#/Vol] 0.1 10*3/uL [facility] Eosinophils/100 WBC (Bld) 0.6 % [facility] Erythrocyte distribution width (RBC) [Ratio] 14.6 % 11.5 - 15.0 % [facility] Hematocrit (Bld) [Volume fraction] 41.7 % 35 - 47 % [facility] Hemoglobin (Bld) [Mass/Vol] 13.6 g/dL 11.7 - 15.5 g/dL [facility] Lymphocytes (Bld) [#/Vol] 1.5 10*3/uL [facility] Lymphocytes/100 WBC (Bld) 17.6 % [facility] MCH (RBC) [Entitic mass] 30.0 pg 27 - [address] [facility] MCHC (RBC) [Mass/Vol] 32.6 g/dL 32 - 36 g/dL [facility] MCV (RBC) [Entitic vol] 92 fL 80 - [address] [facility] Monocytes (Bld) [#/Vol] 0.7 10*3/uL [facility] Monocytes/100 WBC (Bld) 8.0 % [facility] Neutrophils (Bld) [#/Vol] 6.1 10*3/uL [facility] Neutrophils/100 WBC (Bld) 73.3 % [facility] Platelet mean volume (Bld) [Entitic vol] 9.0 fL 7 - [address] [facility] Platelets (Bld) [#/Vol] 255 10*3/uL [facility] RBC (Bld) [#/Vol] 4.52 10*6/uL [facility] WBC corrected for nucl RBC Auto (Bld) [#/Vol] 8.[address] [facility] COMPREHENSIVE METABOLIC PANE Vijay 12-09-2023 Albumin [Mass/Vol] 4.2 g/dL Normal 3.2-5.3 [facility] Comment on above: Performed By: #### C BCA, CMP, TSHR, 2132-05 #### [facility] ([id number]) [address], [address] [place] [address] ALP [Catalytic activity/Vol] 97 U/L Normal 39-130 [facility] Comment on above: Performed By: #### C BCA, CMP, TSHR, 2132-05 #### [facility] ([id number]) [address], [address] [place] [address] ALT [Catalytic activity/Vol] 22 U/L Normal 0-31 [facility] Comment on above: Performed By: #### C BCA, CMP, TSHR, 2132-05 #### [facility] ([id number]) [address], [address] [place] [address] Anion gap [Moles/Vol] 10 mmol/L Normal 5-15 [facility] Comment on above: Performed By: #### C BCA, CMP, TSHR, 2132-05 #### [facility] ([id number]) [address], [address] [place] [address] AST [Catalytic activity/Vol] 15 U/L Normal 0-41 [facility] Comment on above: Performed By: #### C BCA, CMP, TSHR, 2132-05 #### [facility] ([id number]) [address], [address] [place] [address] Bilirubin [Mass/Vol] 0.3 mg/dL Normal 0.3-1.2 [facility] Comment on above: Performed By: #### C BCA, CMP, TSHR, 2132-05 #### [facility] ([id number]) [address], [address] [place] [address] Calcium [Mass/Vol] 9.1 mg/dL Normal 8.5-10.5 [facility] Comment on above: Performed By: #### C BCA, CMP, TSHR, 2132-05 #### [facility] ([id number]) [address], [address] [place] [address] Chloride [Moles/Vol] 102 mmol/L Normal 98-109 [facility] Comment on above: Performed By: #### C BCA, CMP, TSHR, 2132-05 #### [facility] ([id number]) [address], [address] [place] [address] CO2 [Moles/Vol] 30 mmol/L Normal 22-32 [facility] Comment on above: Performed By: #### C BCA, CMP, TSHR, 2132-05 #### [facility] ([id number]) [address], [address] [place] [address] Creatinine [Mass/Vol] 0.99 mg/dL Normal 0.40-1.00 [facility] Comment on above: Result Comment: METH OD TRACEABLE TO IDMS STANDARD Performed By: #### C BCA, CMP, TSHR, 2132-05 #### [facility] ([id number]) [address], [address] [place] [address] GFR/1.73 sq M.predicted among non-blacks MDRD (S/P/Bld) [Vol rate/Area] 64 mL/min/{1.73_m2} Normal >59 [facility] Comment on above: Result Comment: Reported eGFR is based on the CKD-EPI 2020 equation that does not use a race coefficient. Performed By: #### C BCA, CMP, TSHR, 2132-05 #### [facility] ([id number]) [address], [address] [place] [address] Glucose [Mass/Vol] 108 mg/dL High 65-99 [facility] Comment on above: Performed By: #### C BCA, CMP, TSHR, 2132-05 #### [facility] ([id number]) [address] [place] [address] Potassium [Moles/Vol] 4.1 mmol/L Normal 3.5-5.0 [facility] Comment on above: Performed By: #### C BCA, CMP, TSHR, 2132-05 #### [facility] ([id number]) [address], [address] [place] [address] Protein [Mass/Vol] 7.3 g/dL Normal 6.0-8.0 [facility] Comment on above: Performed By: #### C BCA, CMP, TSHR, 2132-05 #### [facility] ([id number]) [address], [address] [place] [address] Sodium [Moles/Vol] 142 mmol/L Normal 134-146 [facility] Comment on above: Performed By: #### C BCA, CMP, TSHR, 2132-05 #### [facility] ([id number]) [address], [address] [place] [address] Urea nitrogen [Mass/Vol] 17 mg/dL Normal 5-27 [facility] Comment on above: Performed By: #### C BCA, CMP, TSHR, 2132-05 #### [facility] ([id number]) [address], [address] [place] [address] Cobalamin (Vitamin B12) [Mas s/Vol]on 12-09-2023 Interpretation and review of laboratory results Abnormal [facility] Comprehensive metabolic pane vijay 12-09-2023 Albumin [Mass/Vol] 4.2 g/dL 3.2 - 5.3 g/dL [facility] ALP [Catalytic activity/Vol] 97 U/L 39 - 130 U/L [facility] ALT No additional P-5'-P [Catalytic activity/Vol] 22 U/L 0 - 31 U/L [facility] Anion gap [Moles/Vol] 10 mmol/L 5 - 15 mmol/L [facility] AST [Catalytic activity/Vol] 15 U/L 0 - 41 U/L [facility] Bilirubin [Mass/Vol] 0.3 mg/dL 0.3 - 1 .2 mg/dL [facility] Calcium [Mass/Vol] 9.1 mg/dL 8.5 - 10. 5 mg/dL [facility] Chloride [Moles/Vol] 102 mmol/L 98 - 10 9 mmol/L [facility] CO2 [Moles/Vol] 30 mmol/L 22 - 32 mmol/L [facility] Creatinine [Mass/Vol] 0.99 mg/dL 0.40 - 1.00 mg/dL [facility] Comment on above: METHOD TRACEABLE TO [facility] STANDARD eGFR (CKD-EPI)non-race dependent 64 - PINF [facility] Comment on above: Reported eGFR is based on the CKD-EPI 2020 equation that does not use a race coefficient. Glucose [Mass/Vol] 108 mg/dL High 65 - 99 mg/dL [facility] Interpretation and review of laboratory results Abnormal [facility] Potassium [Moles/Vol] 4.1 mmol/L 3.5 - 5.0 mmol/L [facility] Protein [Mass/Vol] 7.3 g/dL 6.0 - 8.0 g/dL [facility] Sodium [Moles/Vol] 142 mmol/L 134 - 146 mmol/L [facility] Urea nitrogen [Mass/Vol] 17 mg/dL 5 - 27 mg/dL [facility] TSH WITH REFLEXon 12-09-2023 TSH 1.36 uIU/mL Normal 0.49-4.67 [facility] Comment on above: Performed By: #### C BCA, CMP, TSHR, 2132-05 #### [facility] ([id number]) [address], [address] [place] [address] TSH with Reflexon 12-09-2023 TSH Qn 1.36 m[IU]/L [facility] VITAMIN B12on 12-09-2023 Cobalamin (Vitamin B12) [Mass/Vol] 1078 pg/mL High 180-914 [facility] Comment on above: Performed By: #### C BCA, CMP, TSHR, 2132-05 #### [facility] ([id number]) [address], [address] [place] [address] Vitamin B12on 12-09-2023 Cobalamin (Vitamin B12) [Mass/Vol] 1078 pg/mL High 180 - 914 pg/mL [facility] MR THORACIC SPINE WO CONTon 11-30-2023 [...] Smyth MD on 11/30/2023 12:32 PM Normal [facility] Coding Summaryon 11-23-2023 Coding Summary HTMLBase 64 IbjybawzQKk6tJl+PGhl YWQ+GU4VQPFgZ17ykMCo pV9cC5RIHMuGBulaRKPJ OSnPKdFputKjOY9fmDTw ZXJu IC8+SU1fTFWqStrcnDSe z3G3xGI0L03abh6zXIfk dWU4RAObOpDhhnveh1vu tXk3EGufJpnvCiOy PPQgjC28FDJ6pI72Oc85 iYIgvWFlf4bikUv8GtPc SOUoYLL8aMdpYLdim4Dl RWXeP79zsRSzp1K0 IGNvbGxhcHNlOyBlbXB0 zN9rLZjulakap7zcmvcv Bfn2tp58yFSmh5C3oDM9 X0LgseZ2RRHpwDRy MemqfITIgS3cxybgl3ut edfhEyFbPMXdWXn1GPc8 TPAvgMvmAsJbRC86MTC1 DNMnzqWrP4SfKFAv iLzfCvO9y2V1Ac5JZ3SC ZndpU4BCTXYJFPhndUL+ LL19oy16S9EzDixpWsh4 HUMrMYK2pLW7uC9a UHOxCWtcc2R6cNO1H8Up mmGjse7eb8ewKFMjSIer B09wyRBhz9Q9MESlcGM9 RDZddYbaYlTclM59 Oyc+BDFscHbez9XrApng c6eji9qnpFs4YhlfTHKj smOzrAqrZGS0c1HmSb4v DOOtsTO3qZB1vN6f DdOeUpZ9RJmcK522RyDm rGLbNmohC06lG6OllRX+ WMVnNhn1OODckLcdYL8a A0WcCMEclnnmtJFs uQcfZF3pWFTetkjcUWPv fV4nTPPcS4i5KaNrKaC6 ZWwgW5XdEWNutglgTz20 nP0nJhIcFnE8SIwk O7XxdqY8WPGkoAHtDNaw IXH9N12nt7I5IWUoWSTx IVN3aZG4rK6ddQqoqthq bGVmdDsgdmVydGlj XUdlNKugV164UZYkmIkk PkNvZGluZyBEYXRlOiAg MDMvMTIvMjAyNDwvdGQ+ OCLjVYC9sNppVMPd oFShMCwkZe6ihGsfgMlb HC2dSPMcphjeWVPzxO1t OVNfwAPusSijQE9lMCGl yvoqv922QwFxISZ1 LQYeaYMuX0TriH0cZpPu WQQhEBEfW2GzvMXkVJxf B789UThlUgP9YUMogdBd B4OtWJDvhNeuGzB9 h1J9Ah2Wx0PagkcrR8Wg eEJmCdUiRqlgNUr1L6Po PjwvdHI+LD94BGTlWF93 DCa2JON8rSbiBLyg LXDtD4HlnE2xLxDzKSAl ZGRkOyc+PHRhYmxlIHdp ZHRoPScxMDAlJyBzdHls KG0kUn8uBNOsOZOj pEqviBJoWeOim9cqTOQc PRkcLZ1stSxjU5EjcLR2 WZKcg2c1Gk67E11aP7Pk dXA+KFRuqFU8iPC2 nJ1tDiZjNcR7PDweE742 GkWvlYExIflym7kah3le pEn3DtZ1JKUcfeNbdTvs FUP3a6JaQy33Z63f IHdpZHRoPSIxNSUiIHZh lBnzym2rxD7jHz4+PGNv uUY4pZR8wR2cAvHiLaP8 AOmrB070PeNfiGXt Amtkm1vgo3ujzRp5GnUq CRUlfyMmrMgeRVV4t3Xi Dh16L3VeaDxvo7WpLxj1 pc33vQVvk6W5vUQ8 Q1WbCHQtdccsgGIeeCcw PU8yKJOypptsPDHibG7p UNByG7b4QqYtOcE4LLgk W9CuqpB4MUBbuJRs QODrqLGCtV0vojavg8sx lyhkPeCfIPCdZVd2RRd0 RYDqtNcwXwSwOOE8GcV0 HSR6dACyvO3ogRxv jhgpyU4fPld+AIV4bOFq rVBEJY9lRijfdYO+PHRk EYJ4oPvtWXumZNFdjU7f MTYxZ9y2GyUeUzF7 XHnaA6CuqlF3SOHkcNSu HEVjvXXDwV6dclcgf4hg vvtgIiEwXNIhJAw6DPi0 LWFsaWduOiBsZWZ0 GbF9WDW7jGWzxY2fvMgf qjjvaN5nIpr+QmlydGgg ITH8ERp7J4WqPff1EITm wFdmNK9pdESaXDjm Xc6fqKppoPpbMZ1aHFBw wxujo411NiJkt8wzYZYw gCDuIRmsTXL3E31rc2W1 PQMgHHVuDKD5nWL0 zX0uuWtjfmgdxONddZho fdLryHcgQPseROqyX532 LSLsoAxpMaDsMCm3E2Pt Vaa6NMZtpOsnYI5c qAKdGSlyFz9ztOcsqZhh ZY6jFEGyrgnzv190FzTe e7wgQRJyyYPzIPcyZAZ9 F45qd8V3NZXhRSIh IJY1hBN1kE2nkCpbmoks bGVmdDsgdmVydGljYWwt TJqyW172VMRubKzfKwIs pOl2C2AsClp7HRYx rFryDW9oqUKmZNnvHn1q jSwalIvqTA6aDQKkximl o665GsUqv6sjADOgbVSd DQvjAHT2T43rr6D7 NNEtXQNfJNS6hBD3gW8g bGlnbjogbGVmdDsgdmVy lOorUSkpBRjwJ327ZFAp cDsnPlBhdGllbnQg QXqjYNc9Z1BgAlfffZA+ SM94GLVyVF05rPWjaHZg v9dixQu5PuMhUIXkKHV5 sVufAIcvm9LgTEAq O91nbRWjw9J2CGNvhAgc eRKbDrDhvBZ5mP7wFFdq jxjyc7puikhzGzcdk5le kp82nV53E59kSFbu ZHRoPSIzMCUiIHZhbGln jn4amA0cGf1+PGNvbCB3 uZA3kZ2gZISkWcC0ELaj P853HxJzsMWeTnbd h2woh5qqpNu8ZwN8CBKa fgPaeUwhWCB0e2EnDz79 D18wSOgrVXGeSTUeDXAt TUMtaLonhd5mbC1a Ii8+EBEtnHB4rJE6hW1y AcYeWiU0IDkwS316PxLs lTYnRoaxD50aB9CdlRL+ BSCwGwx4PHGeyFvl UY5lwGCbKHogNc0kHHV2 KtFhXjQyJVhlJ7BuIKYd kksmkbgrpHL6UOJsYIUx wW03Kg2ttJnaUGXh hXTIiM8sntrso8lwrmgl XtVmCSVvCYj6QFj4AETc pFeoQwDiOFI3NxZ3RBW0 kFQeqI4hbYbysuff yE0aO4ZjIGFabzrbIg01 dR1wTpEjJxY8YXrrSxr+ KPmJGXstJ3CJODnaDJ7Z BHEVWA36QK36zLYz a5P6mUC8E7SuEGRzdprb dzdiwRW2TTYgEEMdfG48 yWOzHJxuWq3mt6T3j188 JLIgIIZzlX33Od8n sHamVYMvaNLCtO3yoiof z7iguyqgLxWrCJOnODd1 DBm7GHKktYnpAeJpIRR8 UwE8DLB2fPUheM1l lZbrrltbmG3lYhc+MDkv ZoJoLIy6CYgtpOK+PHRk XPC0eGaxFXaiDBYvrS6p RTHgX1j7LxKaGwY4 TDcxC4MeFNIfqwvdSj30 zR6aRpQrRaZ0CEjzC4Fr buD6RPLqlVWmZLqsLZI2 H91pe0E7HKLnUGOv LZB3vFU0vI2hxCzqgmeu bGVmdDsgdmVydGljYWwt MIezH922CXNuzLrhVjFf LLfsWLFnVD52PQ26 eUApu9C6cWS9C6QjEYQo fulsyeiutFK5EURxOMNj eK72wOCdOGkdWx8dl5H0 h359ZKYkYHYysU70 Mk4mcVwwWELvsOKCzE1z zfnkq9vjqyziSsJmFUKd NKw6EIc0KFViaBckJdPm AJH3XbP6NMP0bTUt jG4nkVvsdwmmlL9mNbu+ KeASKOlCFT57JN56wQNb r9M7jQT3A4GbVYSxfuxx zgyvkHK8QPVaZFJc bS43mNUjYCibZa4hl7B9 a075RYYoRULmlA95Hb9j gOpuVNHguUPUgH2nwkjz j3rmygkmDkQnRIMk PCh1WTz5QQDfoKigAfWu AXG1CuI4KUN2iOCiyI1o qOhdptralW3zErp+RGF5 IMW9kpmobqd9D9Xs PjwvdHI+MD88GRCeFT75 fSLmwFFau9pukEh0CcHh RGEpDUX5xBjyRHzvy4Ig PIZkF62xlGNvz5C9 IGNvbGxhcHNlOyBlbXB0 hW5iXSouqyauc1lgytze Yvkrj0akhw09jE33Q24v IHdpZHRoPSIzMCUi QFIplAfsnx8ulZ9jAx5+ IGCgkFA5fBB2rV3kOpSi QxY8XNglS176YoTxhQOi Rdxwa5hjl8meoWt4 IjIwJSIgdmFsaWduPSJ0 m4CtVb70O73pEShuVOYv GPTaHCFdZZMrvAipaa6u qS9sTc1+PK0ta2ge nk61wU83zCN+PHRkIHN0 eCtsYZzvIBWsgT0eKUta ItN3QTJpGcQytD60jNCf HDtsDf5wdZykxVql GT8iZLSrokrkj079NgDq s3doYCMguSHfHKigPFH3 P88sz3G1DDDuLGZlOGX0 eGM4mW0djGdfulnd bGVmdDsgdmVydGljYWwt NUhuG017HPWsyMcrJsBm vTLmB4iyuwXYKJ9aPpyg dGQ+HULaILG4jAxx MOpxOZCueJ2pVTOdG5m1 GyMvApS6TLhvB8AngfJ4 YFEaiSDeLXJxcPQVnD8v demob1mengbxGzJu NFJcPAq4GQr7BMSmrDnh DdUpEZG2BrR3TWP4nMGf bD9upUchhlkskA7dUbe+ RklOOjwvdGQ+PHRk OHO0cJrbABvkNVWxmF1r ZGTbY8s6XxCeDyX0UZcy Y5AlkeR9LSXbqMFjFLMt xXTHlO5qrqmfm7px nmylBjCvZERyWKo4HWh5 VQUuyOumDyPjLLX8NiS0 FGP3lCPemZ8ppGzkglau uK9lDbs+TVJOOjwv dGQ+DNQvIOE8iBdwRQbh SMBxqN7rMZAfH1k3YfIi MoQ7UNxqW3HfvkG7HLLe uWBaXECzePQSaH0q wwbdf1kexudsXsEzHBWz GQy5UJl7TGLjdOjzSiRt ZBK8LhI4ZWQ5oOIefY8d sDfoxdfvoN5dEvj+ ANW1AUW5DA35WG77C6Ky PjwvdGFibGU+PHRhYmxl IHdpZHRoPScxMDAlJyBz gWmpDV6pPx4iDGWm LWN (more content not included)... [facility] Coding Summaryon 11-22-2023 Coding Summary HTMLBase 64 BbozzdulZJd5vWk+PGhl YWQ+WK6JBWXmH69nhCSw wV7yN3IZVCaRVmmuWIDW CCzUYoAkrmRaCK8lcVQd ZXJu IC8+TG5iDVSmWefhtGTv v2H1nDN7Q47iao1iJNbd vOG1MQGnPzTpwllcb6jf fQm9AEexOkioEyZb GDZmeW04MDT4gK80Kp19 pZVwqKTlu6qlbVn1WwOf SEQfPDV1iEkeNSetd6Bc KGSzB99egEIoq0D5 IGNvbGxhcHNlOyBlbXB0 jQ7mWUwtmglvh4gkyvvc Uvn4ja45gTZpg6G1lOZ2 Z8JgksE4BSFajFIg LjlqwCIGpG5baqmcb3bb mulvGpSuQPZgKCu1TKn4 NBQjoFbsPdVwNU26BBO9 TTXeggTmZ4TgHEOc cUueKcL8u1C5Rc3XX1US KnxyX1NSMBTVSPyaxDN+ NL19it50U7FuMlasBan8 DKDaAPQ5vJY3eM3f RGKfSCymu7U1mMN5S9Lz xtRyqh1kk7qwNMHwASzd T80ulXMwo5J2TDAfcML6 XNZdyUcqFhOfvT37 Oyc+SESfpTvdy7VbZmrm b1wci2lthHf6TrpsXCEc tkFfgAjkIVD8e9WpEg7t NSRpaGJ8kSN5sW1a ZkJpQuO9JLogX240CxCh gQFqGhapQ94xD8RfhXX+ YFKiHyi6TUAkvUbdRZ4f U0CgSHJptvjyeFJk wXjmSH9sCZCarmbcIGNz nS9bONFoZ1h1GdHkOqD8 MZbfV5WmIXCdomjsEp97 dF3xYeUoCgP5ZUox M0GubtY6MLBytRNbMIag ALK1I58tx3O2AJLkHEMe RXN0iVQ8pZ4drZnufgtn bGVmdDsgdmVydGlj SJnsPLosS062LCUdnFrg PkNvZGluZyBEYXRlOiAg MDMvMTEvMjAyNDwvdGQ+ VASrJCW7xKpbSGEj fEYuNAkdUx2rdPderMft HP9uTQKbcyhiEEEufG0i NBDrcVSpqYuzRW6sJXBd jfveu889LfRpPHD9 SSUqgDPyU8CzaW7iUjUh XOKsZDUuW5FfgWOxUBsg W668YBzjMhV2NQXpqtIo M0HpIRCvzPvkOpX4 b7V9Oc9Ml0IyzejeE0Gg eCApXiEnPmhsWVf6A9Fx PjwvdHI+KD31BJTfTU45 OGr5OZI2qWjzLDre KPMsV1VzzN2uTfGlJJIw ZGRkOyc+PHRhYmxlIHdp ZHRoPScxMDAlJyBzdHls AC9hHs5sXVYaVPOi kDsbsJBiQwToh0jjBBUh JXzfYS0tdKexZ2UocWP5 GWKxl7j8Gs89J26oQ1Jc dXA+PACvoGK4pIV9 gR5sElNnGfF9ELruT384 MhNxxGMpOhnbf9tww7fq iYb8SzA5QDErdsXgtJnh QYI7h9PwQa00T57u IHdpZHRoPSIxNSUiIHZh hVvcho5byI8eUx6+PGNv dFX4pES2gU8iFxOnGqA9 TAnvH636OxZfySIp Eihoo2omq2vteNa2YwRe VNJnbuHjsAjpLIK9s6Ix Zk72Y0JhlIahx8OgQho0 lw55mEBgc0K0nQB5 Z1UoIKStupfepYLtlVlu HG7sLPHjvpuqCAYdeL0u RTXdS7c6JsCzNsH8CBsu W2DmioR1BUDvwDBb ABEcjLLBgB1lbwnbs4ah pnkrYpMoRTPtGAo6NSg9 EHXkkQuwQjIiKLN1MiD5 IID9nRGogB0vnHfh ozeioP6sWxc+CMX2oCId rQDAWU5nZttqcRD+PHRk WHB1lGpnIXdsCAAmeY6v NRCpZ6q7ZaWpVgM5 EWqdP1JlhwG0ONIlvTUb BWOvmONEiC7arfzxy2pi dpsxGlWoDOKcPCf1SJn9 LWFsaWduOiBsZWZ0 UlQ0RYQ6eIFwmB7ecRdl cntgsY9rFve+QmlydGgg QPK3CId6M2FsMni5LZFf xMvuGS0kqEZvLQic Lt1qwMfxoEtjDL5hZBEs trxyd927BrYue7mgKNMt kOSfBLzdWUL1F15rk8F9 SOUhANSkRTZ8mZS0 sC8bcAxmlbbzoIPttGua zaVvrGsoOBnpCLajE956 NEDoyTpbTxUmCEp3U5Dt Ehk0JJLvjHhzGC9i uMMxEEnqTw7yvXblrFwo TA9mNQDrfnjkm036IqKq d6urKYPhyAPiVYygIOW1 H68tc9A5POTjCMTu XRV0dED7pS5sqTtbvsse bGVmdDsgdmVydGljYWwt RQesN521MFDkfCllNgKn rDs4Q9WtHle6ERYo vZdxIS4afVLmIHqrKs0j xKuvnWfoZB6rZEWfaymu m226YbEgm1boGQMkuJJe EBocEHF2A45cy5V4 FTPuRAOsBBR9dJH3jQ6w bGlnbjogbGVmdDsgdmVy aPxoBWhvOHiwR590OMFq cDsnPlBhdGllbnQg ZYbyZIh4M3NuYewbnJZ+ ZS77ZJSvRC38yJJzlELa h8vejXi5DrLnWMWhPAZ3 jJsvBDxds3ZxIEKq V28niYLqi4R5VYKbxCuj cEJpMgAwxHC3lV5iEDta mwhjb8oqsdxkWhdio6hj ou97wI82J76yJRai ZHRoPSIzMCUiIHZhbGln yq7sgD2yZs0+PGNvbCB3 dDC6cU3iGBBmVwL3SRhk J408GvIenKQyOeoz w2ceq2jfdVe4EfW5USYc dmInhGusDYV3y2RcVb69 S18iRNvnCGXeAPDpQKKf ISOfhEpsao8miS5o Ii8+AQPvsDE0pKH5pC5x WrPzDlR0CEhxT418GgXa lPRiAsvzW54yR2IfpBY+ GXKnGxn3BHQzdHlb UY8atETzWZxeWj6dIRW3 McFbKbRlPReaL0TgIAHj jotdcnnmqHW0SNZxGKWu zL27Cq9leVoxOKWu tSZXdY7sdcvno2atvcqc OuOePGOoWZf7PWx9WLFk iGdjPaQgQNL8BgI3OMN8 kLAciA1wxKzrjibr sN2sP7TfHAPsibpdUl14 zC5eDfYqVcE3NVzcRko+ YVuTNApdX8FCBBwiNS6H QCLCAU39TO87gRHe w1S3nNB3S5RmHSTwksjn vgaivIC2AYGjSIKocZ02 iVBoJWwhWs9rm7D0a631 FFUpEJRurO47Kx2n rZvuPNLjjDTOrP5bxpvh z0arfuwsZnViQKYoJNy6 XDb7ZGMduBdpTmFpKEU2 FxK3LZB6nJNgjR5x uSdiphvkmT5sUeh+MDkv LqTaRSz2GIkmfQV+PHRk DFY4vHoyMEumUCYslE9u XYKbZ0t8ZuLuRwE1 IMyjO2WtDKRahsshZd99 wD3tNkOpQaR1SLjfH0Fe xtE2FXOomYLyUYjkUDT7 E49xt8D5OJRcYYKp ROG6cVP1tC7wjWistzpm bGVmdDsgdmVydGljYWwt LYadD156STEabClfKeGp MZpfZPIgEI49SA78 iPFkt0A0pDV7H3ZcUSEj qvtuofvwgEQ8EXJhHOEq bX38sQRcNPqqPv2uc1H5 h398EROqCLTchN98 Ls4ffMhgAQTwaCPQrT9e otwpu6mvpaxyTrFdXCGo TVv3LHu8UPCxbKzfOsQr ARZ5XhA1HAW8fOIa uM0rtPwgpyhpnU4rJgw+ BkYGPTyWRU60SR18mVIx v4S1dDS4N3KbFWWnycpd rtqwwTG1JEDjGYPk gR24gLJoAPleCe0mc0V6 w182USZnMAOvuH10Hs8s oZfxFFBpzPZXtB2uqasj k3dgtogsBoWwSMWc CZy9YDa7GQHhtCeqJxXv DVE1YnY8BVQ8vWVuxZ7f iOrrocrscE5aQzm+T1A8 T0IuVymucML+PC90 GAUyHI86mQKgkOKha8eb uIe5MiAaTTDdJGM8bVnv BCshe9XhDWEuA58owWPn v5T4KQVefAgxrRTu CxKacOA7hD7zFXcimbfc h6xfkuznJjnre8ygeq67 cN75X09kGYnuTJUjGKEz JTYtKSTaqSwvdc5o sR7xAg6+YYDtxXL3pLY6 fA3sYcPnByQ5GZhwH469 MwHvfNNlJtcaz7uoj2bk yWq6IlSkKRFlglEs zNiwECE3x0UjTi96J99j IHdpZHRoPSIyMCUiIHZh wSrxps6suT9wKq7+PC9j v1osun95xE68lRW+ DMMbFED7iTfcTGuoFUIh cJ1iSCcnQuO4SHMzCrZb sE64nQBbICgkWn1uoAmg xAxpBO4bBRRucbxp d882VfJzw2zgLFActEDg BClyVEL1B86du7G5WHNi HKMhAIS0gSJ5eP2wlIbw bjogbGVmdDsgdmVy nPfqPGqaZFmqU356UDNv qQgmLrDsnHMfY4qlfuYX FH2fXpszzJQ+PHRkIHN0 vXzvMHojTVDglO7t BFBxI3x4HnAlFfO0CTyr D8NvbcN7WKVizDKyMHQn rXNPpN1dfvkvv4elapmb XoHiHKOgITd6MPk9 CHSrgOwlIfNgRYZ5GdJ4 ZNT3cITxrA6uhHbtzbri fP4gOcv+RklOOjwvdGQ+ XCFxUAP9sBftMHbr ULHaxO9dVBIzG6k9WoFh VcB0RGvuJ9BjfgT0BFUu cVDdKBCflKIStW6lpzbi d1stxmpvMuUgZCZf IUv3KOw5DVVqeEpuVbMd SGC1UwH9ZLI5rLJioI8y pJpmttzfuI6bXcs+TVJO OjwvdGQ+PHRkIHN0 fZqhJNmbTQLszV9sJJWk D3h7HeXzIsV4NKriQ0Xl jmF8ODSgeWXaIVSnmKUE jW7rpjxvq3azmhoe YyYkHXQlUJo7VDn1CRHm sOszEcIoNWE3UgS5XXX7 tRPasE5dqRlckdhkgQ8x Oyc+UFU6OZY9GO96 RP08C0JhBozdyCErgLR+ PHRhYmxlIHdpZHRoPScx YRVyFjAfyRuyFS4dBw1q ZGVyLWNvbGxhcHNl OiB (more content not included)... [facility] Consent Formson 11-22-2023 Consent Forms [id number]# 1.00OTGTIFF Normal [facility] Inpatient Patient Summaryon 11-19-2023 Inpatient Patient Summary [place] [id number] Patient Discharge Instructions Name: NOEMI BRAND : 1960 Patient Address: [address] [place] [address] Primary Care Provider: Name: Provider, None Phone: After you are discharged if you find you have any questions, please, call [phone] ext [phone] to speak to a nurse. Discharge Diagnosis: Prescription Information: If you have been given a prescription for narcotics, seek immediate medical attention if you have any difficulty breathing or any sudden status changes such as confusion and sleepiness. If you or anyone you know is experiencing suicidal thoughts, mental health, alcohol and/or drug addiction problems; contact the [facility] 05/04 Crisis Hotline -Qcxi 4HXSH yn [phone]. If you received any narcotics, sedation, or [...] business decisions or sign any legal documents [facility] would like to thank you for allowing [...] (scheduled). f (more content not included)... Normal [facility] MAGR Intraoperative Recordon 11-19-2023 MAGR Intraoperative Record MAGR Intra-Op Record Summary Primary Physician: LINA SCHWAB MD Finalized Date/Time: 11/19/23 13:17:57 Pt. Name: NOEMI BRAND Maureen/Sex: 1960 FEMALE Med Rec #: [id number] Physician: LINA SCHWAB MD Financial #: [id number] Pt. Type: D Room/Bed: / Admit/Disch: 11/19/23 11:56:40 - Institution: Case Times MAGR Entry 1 Patient In Room Time 11/19/23 13:08:00 Out Room Time 11/19/23 13:18:00 Anesthesia Start Time 11/19/23 13:11:00 Stop Time 11/19/23 13:17:00 Surgery Start Time 11/19/23 13:11:00 Stop Time 11/19/23 13:17:00 Last Modified By: Ev Bailey RN 11/19/23 13:17:26 Case Attendance MAGR Entry 1 Entry 2 Entry 3 Case Attendee BritoSantos sanders Ev Marcial RN, RN, Sara L RT (R) ARRT Role Performed Soft Work Cigar Machine Operator Soft Work Cigar Machine Operator Bull Ladle Tender Time In 11/19/23 13:08:00 11/19/23 13:08:00 11/19/23 13:08:00 Time Out 11/19/23 13:18:00 11/19/23 13:18:00 11/19/23 13:18:00 Procedure Block Nerve(Bilateral) Block Nerve(Bilateral) Block Nerve(Bilateral) Last Modified By: Ev Bailey RN, Diane RN Kokinda, Diane RN 11/19/23 13:17:28 11/19/23 13:17:28 11/19/23 13:17:28 Entry 4 Entry 5 Entry 6 Case Attendee Iveth Anderson RT (R) Hailey Jorge CST, THOMAS F MD ARRT Role Performed Bull Ladle Tender Scrub Personnel Surgeon - Primary Time In [...] Downing RT (R) ARRTJustin Jenna RT (R) Ania MCGHEE Regina CSFA CST, LINA SCHWAB MD Last Modified By: Ev [...] musculoskeletal status O.80 (more content not included)... [facility] MAGR Preoperative Recordon 0 11-19-2023 MAGR Preoperative Record MAGR Pre-Op Record Summary Primary Physician: LINA SCHWAB MD Finalized Date/Time: 11/19/23 13:24:31 Pt. Name: NOEMI BRAND /Sex: 1960 FEMALE Med Rec #: [id number] Physician: LINA SCHWAB MD Financial #: [id number] Pt. Type: D Room/Bed: / Admit/Disch: 11/19/23 [...] consent correct. General Comments: pt arrives to [facility] ambulatory. denies CP,cough,cold, COVID like symptoms. denies diabetes, pacemaker/defib, sleep apnea. pt verbalizes understanding of post op instructions Finalized By: Keshia Mack RN Document Signatures Signed By: Keshia Mack RN 11/19/23 13:24 [facility] POCT Protime / INRon 024 INR Coag (PPP) [Relative time] 2.0 {INR} Abnormal 0.8 - 1.2 [facility] Interpretation and review of laboratory results Abnormal [facility] Patient Handouton 11-19-20[address] Patient [address] [facility] Progress Note - Provideron 0 11-17-2023 Progress Note - Provider [id number] .00OTGTIFF Normal [facility] POCT Protime / INRon 024 INR Coag (PPP) [Relative time] 1.9 {INR} Abnormal 0.8 - 1.2 [facility] Interpretation and review of laboratory results Abnormal [facility] Pain Management Office/Clini c Noteon 11-01-2023 Pain [...] on Fridays. Patient will be referred to [facility] Medical Decision Making Chronic conditions NOT treated [...] History Ongoing (more content not included)... Normal [facility] Calculus Analysison 10-29-19 24 Calcium oxalate dihydrate Infrared spectroscopy (Stone) [Mass fraction] 50 % Invalid Interpretation Code [facility] Comment on above: Performed By: #### 1 [id number] ####[facility] [id number] [place] [address] Calcium oxalate monohydrate (Stone) [Mass fraction] 50 % Invalid Interpretation Code [facility] Comment on above: Performed By: #### 1 [id number] ####[facility] [id number] [place] [address] Color (Stone) Brown Invalid Interpretation Code [facility] Comment on above: Performed By: #### 1 [id number] ####[facility] [id number] [place] [address] Composition Comment Invalid Interpretation Code [facility] Comment on above: Result Comment: Perc entage (Represents the % composition) Performed By: #### 1 [id number] ####[facility] [id number] [place] [address] Disclaimer: Comment Invalid Interpretation Code [facility] Comment on above: Result Comment: This test was developed and its performance characteristics determined by [employer]. It has not been cleared or approved by the Food and Drug Administration. Performed at: [address] [id number] Harris Loredo Performed By: #### 1 [id number] ####[facility] [address] [place] [address] Laboratory comment Gagandeep (Report) Comment Invalid Interpretation Code [facility] Comment on above: Result Comment: Alaina guaman questions regarding Calculi Analysis contact [facility] at: [phone]. Performed By: #### 1 [id number] ####[address] [address] Please Note: Comment Invalid Interpretation Code [facility] Comment on above: Result Comment: Calc deedee report will follow via computer, mail or nutrition coordinator delivery. Performed By: #### 1 [id number] ####[address] [address] Size (Stone) [Entitic vol] 5x7 Invalid Interpretation Code [facility] Comment on above: Result Comment: Sing le piece received. Performed By: #### 1 [id number] ####[address] [address] Specimen source subject Nom Comment Invalid Interpretation Code [facility] Comment on above: Result Comment: Not provided Performed By: #### 1 [id number] ####[address] [address] Stone Photo Comment Invalid Interpretation Code [facility] Comment on above: Result Comment: Phot ograph will follow under a separate cover Performed By: #### 1 [id number] ####[address] [place] [address] Weight (Stone) 52 mg Invalid Interpretation Code [facility] Comment on above: Performed By: #### 1 [id number] ####[address] [place] [address] RAD - MISCon 10-19-2023 RAD - MISC [id number] #1.00TIFF Normal [facility] POCT Protime / INRon 024 INR Coag (PPP) [Relative time] 2.0 {INR} Abnormal 0.8 - 1.2 [facility] Interpretation and review of laboratory results Abnormal [facility] Alanine aminotransferase [En zymatic activity/volume] in Serum or PlasmaOrdered By: Contreras Mcmillan on 10-04-2023 ALT [Catalytic activity/Vol] 16 U/L Normal 7-52 [facility] Comment on above: Performed By: #### C 3, C4, CH50 #### [facility] , #### CBC, CMP, ESR, ADDONUAPLUS #### [facility] [address] [place] [address] Albumin [Mass/volume] in Ser um or Plasma by Bromocresol green (BCG) dye binding methoOrdered By: Contreras Mcmillan on 10-04-2023 Albumin BCG dye [Mass/Vol] 4.3 g/dL 3.5-5.7 [facility] Alkaline phosphatase [Enzyma tic activity/volume] in Serum or PlasmaOrdered By: Contreras Mcmillan on 10-04-2023 ALP [Catalytic activity/Vol] 77 U/L Normal 34-104 [facility] Comment on above: Result Comment: PERF ORMED BY: [place] [address] PATHOLOGIST ROTARY CUTTER OPERATOR SUSAN ZHENG M.D. Performed By: #### C 3, C4, CH50 #### [facility] , #### CBC, CMP, ESR, ADDONUAPLUS #### [facility] [address] [place] [address] Aspartate aminotransferase [ Enzymatic activity/volume] in Serum or PlasmaOrdered By: Contreras Mcmillan on 10-04-2023 AST [Catalytic activity/Vol] 15 U/L Normal 13-39 [facility] Comment on above: Performed By: #### C 3, C4, CH50 #### [facility] , #### CBC, CMP, ESR, ADDONUAPLUS #### [facility] [address] [place] [address] Automated basophil %Ordered By: Contreras Mcmillan on 10-04-2023 Basophils/100 WBC (Bld) 0.7 % Normal . [facility] Comment on above: Performed By: #### C 3, C4, CH50 #### [facility] , #### CBC, CMP, ESR, ADDONUAPLUS #### [address] Automated basophil countOrde red By: Contreras Mcmillan on 10-04-2023 Basophils (Bld) [#/Vol] 0.1 10*3/uL Normal 0.0-0.2 [facility] Comment on above: Performed By: #### C 3, C4, CH50 #### [facility] , #### CBC, CMP, ESR, ADDONUAPLUS #### [address] Automated blood monocyte cou ntOrdered By: Contreras Crainrow on 10-04-2023 Monocytes (Bld) [#/Vol] 0.7 10*3/uL Normal 0.0-0.8 [facility] Comment on above: Performed By: #### C 3, C4, CH50 #### [facility] , #### CBC, CMP, ESR, ADDONUAPLUS #### [address] Automated eosinophil %Ordere d By: Contreras Crainrow on 10-04-2023 Eosinophils/100 WBC (Bld) 0.7 % Normal . [facility] Comment on above: Performed By: #### C 3, C4, CH50 #### [facility] , #### CBC, CMP, ESR, ADDONUAPLUS #### [address] Automated eosinophil countOr dered By: Contreras Crainrow on 10-04-2023 Eosinophils (Bld) [#/Vol] 0.1 10*3/uL Normal 0.0-0.45 [facility] Comment on above: Performed By: #### C 3, C4, CH50 #### [facility] , #### CBC, CMP, ESR, ADDONUAPLUS #### [facility] [address] Automated erythrocytes count in urine sediment (number/area)Ordered By: Contreras Mcmillan on 10-04-2023 RBC Auto (Urine sed) [#/Area] 3-4 [HPF] 0-4 [facility] Automated leukocytes count i n urine sediment (number/area)Ordered By: Contreras Mcmillan on 10-04-2023 WBC Auto (Urine sed) [#/Area] 0-1 [HPF] 0-4 [facility] Automated monocyte %Ordered By: Contreras Mcmillan on 10-04-2023 Monocytes/100 WBC (Bld) 8.6 % Normal . [facility] Comment on above: Performed By: #### C 3, C4, CH50 #### [facility] , #### CBC, CMP, ESR, ADDONUAPLUS #### [address] Automated neutrophil %Ordere d By: Contreras Mcmillan on 10-04-2023 Neutrophils/100 WBC (Bld) 72.0 % Normal . [facility] Comment on above: Performed By: #### C 3, C4, CH50 #### [facility] , #### CBC, CMP, ESR, ADDONUAPLUS #### [address] Automated urine color determ inationOrdered By: Contreras Mcmillan on 10-04-2023 Color (U) Yellow Normal Yellow [facility] Comment on above: Order Comment: Name Collection Type:: Clean-Voided Midstream Performed By: #### C 3, C4, CH50 #### [facility] , #### CBC, CMP, ESR, ADDONUAPLUS #### [address] Bilirubin Test strip Ql (U)O rdered By: Contreras Mcmillan on 10-04-2023 Bilirubin Ql (U) Negative Negative [facility] Bilirubin.total [Mass/volume ] in Serum or PlasmaOrdered By: Contreras Mcmillan on 10-04-2023 Bilirubin [Mass/Vol] 0.4 mg/dL Normal 0.3-1.0 [facility] Comment on above: Performed By: #### C 3, C4, CH50 #### [facility] , #### CBC, CMP, ESR, ADDONUAPLUS #### [facility] [address] [place] [address] [place] Calcium [Mass/volume] in Ser um or PlasmaOrdered By: Contreras Cranirow on 10-04-2023 Calcium [Mass/Vol] 9.6 mg/dL Normal 8.6-10.3 [facility] Comment on above: Performed By: #### C 3, C4, CH50 #### [facility] , #### CBC, CMP, ESR, ADDONUAPLUS #### [address] Carbon dioxide, total [Moles /volume] in Serum or PlasmaOrdered By: Contreras Crainrow on 10-04-2023 CO2 [Moles/Vol] 29.9 mmol/L Normal 21.0-31.0 [facility] Comment on above: Performed By: #### C 3, C4, CH50 #### [facility] , #### CBC, CMP, ESR, ADDONUAPLUS #### [facility] [address] [place] [address] [place] Chloride [Moles/volume] in S josé miguel or PlasmaOrdered By: Contreras Crainrow on 10-04-2023 Chloride [Moles/Vol] 99 mmol/L Normal 98-107 [facility] Comment on above: Performed By: #### C 3, C4, CH50 #### [facility] , #### CBC, CMP, ESR, ADDONUAPLUS #### [facility] [id number] [place] Complement C3on 10-04-2023 Complement C3 162 mg/dL Normal 82-167 [facility] Comment on above: Result Comment: Perf ormed at: - [facility] [address] [id number] Tunnel Worker: Thony Mcmillan PhD, Phone: [phone] Performed By: #### C 3, C4, CH50 #### [facility] , #### CBC, CMP, ESR, ADDONUAPLUS #### [address] Complement C4on 10-04-2023 Complement C4 42 mg/dL High 12-38 [facility] Comment on above: Result Comment: PERF ORMED BY: [place] [address] PATHOLOGIST ROTARY CUTTER OPERATOR SUSAN ZHENG M.D. Performed By: #### C 3, C4, CH50 #### [facility] , #### CBC, CMP, ESR, ADDONUAPLUS #### [address] Complement Total (CH50)on Complement Total (CH50) >60 Normal >41 [facility] Comment on above: [...] out of range values. Performed at: - [facility] [id number] Tunnel Worker: Thony Mcmillan PhD, Phone: [phone] PERFORMED BY: [place] [address] PATHOLOGIST ROTARY CUTTER OPERATOR SUSAN ZHENG M.D. Performed By: #### C 3, C4, CH50 #### [facility] , #### CBC, CMP, ESR, ADDONUAPLUS #### [address] Complete Blood Count Auto Di ffon 10-04-2023 Mean Corpuscular HGB Conc 33.4 g/dL Normal 32.0-35.0 [facility] Comment on above: Performed By: #### C 3, C4, CH50 #### [facility] , #### CBC, CMP, ESR, ADDONUAPLUS #### [address] NRBC% 0.1 /100{WBC} Normal 0-0.5 [facility] Comment on above: Performed By: #### C 3, C4, CH50 #### [facility] , #### CBC, CMP, ESR, ADDONUAPLUS #### [address] Comprehensive Metabolic Pane vijay 10-04-2023 Albumin [Mass/Vol] 4.3 g/dL Normal 3.5-5.7 [facility] Comment on above: Performed By: #### C 3, C4, CH50 #### [facility] , #### CBC, CMP, ESR, ADDONUAPLUS #### [address] GFR/1.73 sq M.predicted MDRD (S/P/Bld) [Vol rate/Area] 58.078 mL/min/{1.73_m2} Normal [facility] Comment on above: Performed By: #### C 3, C4, CH50 #### [facility] , #### CBC, CMP, ESR, ADDONUAPLUS #### [address] Creatinine [Mass/volume] in Serum or PlasmaOrdered By: Contreras Mcmillan on 10-04-2023 Creatinine [Mass/Vol] 1.08 mg/dL Normal 0.60-1.20 [facility] Comment on above: Performed By: #### C 3, C4, CH50 #### [facility] , #### CBC, CMP, ESR, ADDONUAPLUS #### [address] Dipstick and Microscopicon 0 10-04-2023 Appearance (U) Clear Normal Clear [facility] Comment on above: Order Comment: Name Collection Type:: Clean-Voided Midstream Performed By: #### C 3, C4, CH50 #### [facility] , #### CBC, CMP, ESR, ADDONUAPLUS #### [address] Bacteria,Urine None Seen Normal None Seen [facility] Comment on above: Order Comment: Name Collection Type:: Clean-Voided Midstream Performed By: #### C 3, C4, CH50 #### [facility] , #### CBC, CMP, ESR, ADDONUAPLUS #### [address] Bilirubin,Urine Negative Normal Negative [facility] Comment on above: Order Comment: Name Collection Type:: Clean-Voided Midstream Performed By: #### C 3, C4, CH50 #### [facility] , #### CBC, CMP, ESR, ADDONUAPLUS #### [address] Glucose Ql (U) Normal Normal Normal [facility] Comment on above: Order Comment: Name Collection Type:: Clean-Voided Midstream Performed By: #### C 3, C4, CH50 #### [facility] , #### CBC, CMP, ESR, ADDONUAPLUS #### [address] Hyaline Casts,Urine None Seen Normal 0-8 [facility] Comment on above: Order Comment: Name Collection Type:: Clean-Voided Midstream Result Comment: PERF ORMED BY: [address] [place] [address] PATHOLOGIST ROTARY CUTTER OPERATOR SUSAN ZHENG M.D. Performed By: #### C 3, C4, CH50 #### [facility] , #### CBC, CMP, ESR, ADDONUAPLUS #### [address] Ketones Ql (U) Negative Normal Negative [facility] Comment on above: Order Comment: Name Collection Type:: Clean-Voided Midstream Performed By: #### C 3, C4, CH50 #### [facility] , #### CBC, CMP, ESR, ADDONUAPLUS #### [address] Leukocyte esterase Test strip Ql (U) Negative Normal Negative [facility] Comment on above: Order Comment: Name Collection Type:: Clean-Voided Midstream Performed By: #### C 3, C4, CH50 #### [facility] , #### CBC, CMP, ESR, ADDONUAPLUS #### [address] Nitrite,Urine Negative Normal Negative [facility] Comment on above: Order Comment: Name Collection Type:: Clean-Voided Midstream Performed By: #### C 3, C4, CH50 #### [facility] , #### CBC, CMP, ESR, ADDONUAPLUS #### [place] [address] [place] Occult Blood,Urine 2+ High Negative [facility] Comment on above: Order Comment: Name Collection Type:: Clean-Voided Midstream Performed By: #### C 3, C4, CH50 #### [facility] , #### CBC, CMP, ESR, ADDONUAPLUS #### [address] Protein,Urine Negative Normal Negative [facility] Comment on above: Order Comment: Name Collection Type:: Clean-Voided Midstream Performed By: #### C 3, C4, CH50 #### [facility] , #### CBC, CMP, ESR, ADDONUAPLUS #### [address] RBC,Urine 3-4 Normal 0-4 [facility] Comment on above: Order Comment: Name Collection Type:: Clean-Voided Midstream Performed By: #### C 3, C4, CH50 #### [facility] , #### CBC, CMP, ESR, ADDONUAPLUS #### [address] Specificy [place],Urine 1.011 Normal 1.001-1.030 [facility] Comment on above: Order Comment: Name Collection Type:: Clean-Voided Midstream Performed By: #### C 3, C4, CH50 #### [facility] , #### CBC, CMP, ESR, ADDONUAPLUS #### [address] Squamous Epithelial Cell,Urine None Seen Normal 0-2 [facility] Comment on above: Order Comment: Name Collection Type:: Clean-Voided Midstream Performed By: #### C 3, C4, CH50 #### [facility] , #### CBC, CMP, ESR, ADDONUAPLUS #### [address] Urobilinogen,Urine Normal Normal Normal [facility] Comment on above: Order Comment: Name Collection Type:: Clean-Voided Midstream Performed By: #### C 3, C4, CH50 #### [facility] , #### CBC, CMP, ESR, ADDONUAPLUS #### [address] WBC LM.HPF (Urine sed) [#/Area] 0 /[HPF] Normal 0-4 [facility] Comment on above: Order Comment: Name Collection Type:: Clean-Voided Midstream Performed By: #### C 3, C4, CH50 #### [facility] , #### CBC, CMP, ESR, ADDONUAPLUS #### [address] Erythrocyte Sedimentation Ra roman 10-04-2023 ESR (Bld) [Velocity] 26 mm/h Normal 0-29 [facility] Comment on above: Result Comment: PERF ORMED BY: [place] [address] PATHOLOGIST ROTARY CUTTER OPERATOR SUSAN ZHENG M.D. Performed By: #### C 3, C4, CH50 #### [facility] , #### CBC, CMP, ESR, ADDONUAPLUS #### [address] Erythrocyte distribution wid th [Ratio] by Automated countOrdered By: Contreras Mcmillan on 10-04-2023 Erythrocyte distribution width (RBC) [Ratio] 14.0 % Normal 11.9-15.3 [facility] Comment on above: Performed By: #### C 3, C4, CH50 #### [facility] , #### CBC, CMP, ESR, ADDONUAPLUS #### [address] Erythrocyte sedimentation ra te by Photometric methodOrdered By: Contreras Mcmillan on 10-04-2023 ESR Photometric method (Bld) [Velocity] 26 mm/hr 0-29 [facility] Erythrocytes [#/volume] in B lood by Automated countOrdered By: Contreras Mcmillan on 10-04-2023 RBC (Bld) [#/Vol] 4.44 10*6/uL Normal 3.60-5.00 [facility] Comment on above: Performed By: #### C 3, C4, CH50 #### [facility] , #### CBC, CMP, ESR, ADDONUAPLUS #### [address] Glucose [Mass/volume] in Ser um or PlasmaOrdered By: Contreras Mcmillan on 10-04-2023 Glucose [Mass/Vol] 128 mg/dL High 70-100 [facility] Comment on above: ADA recommended refe rence rangeRandom Glucose Reference Range is dependent on time and content of last meal. Glucose of more than 200 mg/dL in a nonstressed, ambulatory subject supports the diagnosis of Diabetes Mellitus. Result Comment: [place] om Glucose Reference Range is dependent on time and content of last meal. Glucose of more than 200 mg/dL in a nonstressed, ambulatory subject supports the diagnosis of Diabetes Mellitus. ADA recommended reference range Performed By: #### C 3, C4, CH50 #### [facility] , #### CBC, CMP, ESR, ADDONUAPLUS #### [address] Hematocrit [Volume Fraction] of Blood by Automated countOrdered By: Contreras Mcmillan on 10-04-2023 Hematocrit (Bld) [Volume fraction] 40.7 % Normal 34.0-46.4 [facility] Comment on above: Performed By: #### C 3, C4, CH50 #### [facility] , #### CBC, CMP, ESR, ADDONUAPLUS #### [facility] [address] [place] [address] Hemoglobin [Mass/volume] in BloodOrdered By: Contreras Mcmillan on 10-04-2023 Hemoglobin (Bld) [Mass/Vol] 13.6 g/dL Normal 11.8-15.4 [facility] Comment on above: Performed By: #### C 3, C4, CH50 #### [facility] , #### CBC, CMP, ESR, ADDONUAPLUS #### [facility] [address] [place] [address] Ketones Auto test strip (U) [Mass/Vol]Ordered By: Contreras Mcmillan on 10-04-2023 Ketones (U) [Mass/Vol] Negative Negative [facility] - UrinalysisOrder ed By: Contreras Mcmillan on 10-04-2023 Hyaline casts LM Ql (Urine sed) None seen [LPF] 0-8 [facility] Leukocytes [#/volume] correc jw for nucleated erythrocytes in Blood by Automated counOrdered By: oCntreras Crainrow on 10-04-2023 WBC corrected for nucl RBC Auto (Bld) [#/Vol] 8.7 10*3/uL 3.8-11.6 [facility] Leukocytes [#/volume] in Blo od by Automated countOrdered By: Contreras Crainrow on 10-04-2023 WBC (Bld) [#/Vol] 8.7 10*3/uL Normal 3.8-11.6 [facility] Comment on above: Performed By: #### C 3, C4, CH50 #### [facility] , #### CBC, CMP, ESR, ADDONUAPLUS #### [facility] [address] [place] [address] [place] Lymphocytes [#/volume] in Bl ood by Automated countOrdered By: Contreras Deyanira on 10-04-2023 Lymphocytes (Bld) [#/Vol] 1.6 10*3/uL Normal 1.00-4.8 [facility] Comment on above: Performed By: #### C 3, C4, CH50 #### [facility] , #### CBC, CMP, ESR, ADDONUAPLUS #### [facility] [address] [place] [address] [place] Lymphocytes/100 leukocytes i n Blood by Automated countOrdered By: Contreras Deyanira on 10-04-2023 Lymphocytes/100 WBC (Bld) 18.0 % Normal . [facility] Comment on above: Performed By: #### C 3, C4, CH50 #### [facility] , #### CBC, CMP, ESR, ADDONUAPLUS #### [facility] [address] [place] [address] [place] MCH [Entitic mass] by Automa jw countOrdered By: Contreras Deyanira on 10-04-2023 MCH (RBC) [Entitic mass] 30.6 pg Normal 24.7-34.3 [facility] Comment on above: Performed By: #### C 3, C4, CH50 #### [facility] , #### CBC, CMP, ESR, ADDONUAPLUS #### [facility] [address] [place] [address] MCHC Auto (RBC) [Mass/Vol]Or dered By: Contreras Mcmillan on 10-04-2023 MCHC (RBC) [Mass/Vol] 33.4 g/dL 32.0-35.0 [facility] MCV [Entitic volume] by Auto mated countOrdered By: Contreras Mcmillan on 10-04-2023 MCV (RBC) [Entitic vol] 91.6 fL Normal 80-100 [facility] Comment on above: Performed By: #### C 3, C4, CH50 #### [facility] , #### CBC, CMP, ESR, ADDONUAPLUS #### [facility] [address] [place] [address] Neutrophils [#/volume] in Bl ood by Automated countOrdered By: Contreras Mcmillan on 10-04-2023 Neutrophils (Bld) [#/Vol] 6.3 10*3/uL Normal 1.8-7.7 [facility] Comment on above: Performed By: #### C 3, C4, CH50 #### [facility] , #### CBC, CMP, ESR, ADDONUAPLUS #### [facility] [address] [place] [address] Nitrite Test strip Ql (U)Ord ered By: Contreras Mcmillan on 10-04-2023 Nitrite Ql (U) Negative Negative [facility] No Panel InformationOrdered By: Contreras Mcmillan on 10-04-2023 Estimated GFR (CKD-EPI) 58.078 mL/Min [facility] Creatinine Clearance (Chem N/A [facility] Nucleated erythrocytes [Pres ence] in Blood by Automated countOrdered By: Contreras Mcmillan on 10-04-2023 Nucleated RBC Auto Ql (Bld) 0.1 /100{WBC} 0-0.5 [facility] Platelet mean volume [Entiti c volume] in Blood by Automated countOrdered By: Contreras Deyanira on 10-04-2023 Platelet mean volume (Bld) [Entitic vol] 8.3 fL Normal 6.3-10.7 [facility] Comment on above: Performed By: #### C 3, C4, CH50 #### [facility] , #### CBC, CMP, ESR, ADDONUAPLUS #### [facility] [address] [place] [address] Platelets [#/volume] in Bloo d by Automated countOrdered By: Contrerasamerico Mcmillan on 10-04-2023 Platelets (Bld) [#/Vol] 268 10*3/uL Normal 150-450 [facility] Comment on above: Performed By: #### C 3, C4, CH50 #### [facility] , #### CBC, CMP, ESR, ADDONUAPLUS #### [address] Potassium [Moles/volume] in Serum or PlasmaOrdered By: Contreras Mcmillan on 10-04-2023 Potassium [Moles/Vol] 4.0 mmol/L Normal 3.5-5.1 [facility] Comment on above: Performed By: #### C 3, C4, CH50 #### [facility] , #### CBC, CMP, ESR, ADDONUAPLUS #### [facility] [address] [place] [address] Protein Auto test strip (U) [Mass/Vol]Ordered By: Contreras Mcmillan on 10-04-2023 Protein (U) [Mass/Vol] Negative Negative [facility] Protein [Mass/volume] in Ser um or PlasmaOrdered By: Contreras Mcmillan on 10-04-2023 Protein [Mass/Vol] 7.0 g/dL Normal 6.4-8.9 [facility] Comment on above: Performed By: #### C 3, C4, CH50 #### [facility] , #### CBC, CMP, ESR, ADDONUAPLUS #### [address] Serum globulin measurement b y calculation (mass/volume)Ordered By: Contreras Mcmillan on 10-04-2023 Globulin (S) [Mass/Vol] 2.7 g/dL Normal [facility] Comment on above: Performed By: #### C 3, C4, CH50 #### [facility] , #### CBC, CMP, ESR, ADDONUAPLUS #### [address] Serum or plasma albumin/glob ulin mass ratioOrdered By: Contreras Mcmillan on 10-04-2023 Albumin/Globulin [Mass ratio] 1.6 {ratio} Normal [facility] Comment on above: Performed By: #### C 3, C4, CH50 #### [facility] , #### CBC, CMP, ESR, ADDONUAPLUS #### [address] Serum or plasma anion gap de terminationOrdered By: Contreras Mcmillan on 10-04-2023 Anion gap [Moles/Vol] 12.1 mmol/L Normal 6.0-15.0 [facility] Comment on above: Performed By: #### C 3, C4, CH50 #### [facility] , #### CBC, CMP, ESR, ADDONUAPLUS #### [address] Sodium [Moles/volume] in Ser um or PlasmaOrdered By: Contreras Crainrow on 10-04-2023 Sodium [Moles/Vol] 137 mmol/L Normal 136-145 [facility] Comment on above: Performed By: #### C 3, C4, CH50 #### [facility] , #### CBC, CMP, ESR, ADDONUAPLUS #### [address] Specific gravity Auto test s trip (U) [Rel density]Ordered By: Contreras Mcmillan on 10-04-2023 Specific gravity (U) [Rel density] 1.011 1.001-1.030 [facility] Squamous epithelial cells de tection in urine sediment by light microscopyOrdered By: Contreras Mcmillan on 10-04-2023 Epithelial cells.squamous LM Ql (Urine sed) None seen [HPF] 0-2 [facility] Urea nitrogen [Mass/volume] in Serum or PlasmaOrdered By: Contreras Mcmillan on 10-04-2023 Urea nitrogen [Mass/Vol] 14 mg/dL Normal 7-25 [facility] Comment on above: Performed By: #### C 3, C4, CH50 #### [facility] , #### CBC, CMP, ESR, ADDONUAPLUS #### [facility] [address] Urine bacteria detection by automated methodOrdered By: Contreras Mcmillan on 10-04-2023 Bacteria Auto Ql (U) None seen None Seen [facility] Urine clarity by refractomet ry automatedOrdered By: Contreras Mcmillan on 10-04-2023 Clarity Refractometry automated (U) Clear Clear [facility] Urine glucose measurement by automated test strip (mass/volume)Ordered By: Contreras Mcmillan on 10-04-2023 Glucose Auto test strip (U) [Mass/Vol] Normal mg/dL Normal [facility] Urine hemoglobin detection b y automated test stripOrdered By: Contreras Mcmillan on 10-04-2023 Hemoglobin Auto test strip Ql (U) 2+ Negative [facility] Urine leukocyte esterase det ection by automated test stripOrdered By: Contreras Mcmillan on 10-04-2023 Leukocyte esterase Auto test strip Ql (U) Negative Negative [facility] Urine pH measurement by auto mated test stripOrdered By: Contreras Mcmillan on 10-04-2023 pH (U) 6.0 [pH] Normal 5.0-9.0 [facility] Comment on above: Order Comment: Name Collection Type:: Clean-Voided Midstream Performed By: #### C 3, C4, CH50 #### [facility] , #### CBC, CMP, ESR, ADDONUAPLUS #### [facility] [address] Urobilinogen Auto test strip (U) [Mass/Vol]Ordered By: Contreras Mcmillan on 10-04-2023 Urobilinogen (U) [Mass/Vol] Normal mg/dL Normal [facility] Ambulatory Visit Summaryon 0 09-28-2023 Ambulatory Visit [...] stricture (03/10/2018), Hip replacement (2017), Cataract extraction (2016), Vena cava filter (2014), Diskectomy (2009), History of knee surgery (1997), Cystoscope (1987), Caesarean section (1986). What to do next Scheduled Follow-Up Appointments Wednesday 10:00 AM EST With: DIANA GARRETT PA-C Where: [facility] C Urineon 09-26-2023 Bacteria identified Cx Nom (U) Microbiology PROCEDURE: Urine Culture [R1] SOURCE: U CleanCatch BODY SITE: COLLECTED DATE/TIME: 09/24/2023 13:25 EST RECEIVED DATE/TIME: 09/24/2023 17:33 EST START DATE/TIME: 09/24/2023 17:34 EST FREE TEXT SOURCE: Samina FERGUSON, YANIRA-C, Samina FERGUSON, MAC ARTIST-C, Leann X Leann X FINAL REPORTS Final Report [] Verified Date/Time: 09/26/2023 07:14 EST 1,000 cfu/ml Mixed skin contaminants Performing Locations R1: This test was performed at: [facility], [address] [place] [address], [facility] , , [facility] Comment on above: Performed By: #### 2 [id number] ####[facility] [address] [place] [address] Ambulatory Visit Summaryon 0 09-24-2023 Ambulatory Visit Summary NOEMI BRAND :1960 Visit Date:09/24/2023 Ambulatory Visit Instructions Your Diagnosis Chronic lower urinary tract infection Tests Performed Urnls Dip Stick Auto w/o Microscopy POC 07252 Your Care Team Attending Physician - DIANA [...] DIANA GARRETT PA-C Where: [facility] POCT Protime / INRon 024 INR Coag (PPP) [Relative time] 1.9 {INR} Abnormal 0.8 - 1.2 [facility] Interpretation and review of laboratory results Abnormal [email or web address] Office/Clini c Noteon 09-23-2023 Pain [...] SIDE CONTINUES Date Tens: n/a Date Chiropractor: danuta Date PT: hx Comments PT: HEP-stretching Date Injections: prn Date Surgery: Hx Frequency Surgery: x1, x1,x1 Effective Surgery: neck 2008 , thorcaic 2018, & lumbar surgery 1994 Recent testing: No [...] reviewed the (more content not included)... Normal [facility] RAD - CT Reporton 09-17-2023 RAD - CT Report [id number] #1.00TIFF Normal [facility] C Urineon 09-16-2023 Bacteria identified Cx Nom (U) Microbiology PROCEDURE: Urine Culture [R1] SOURCE: U CleanCatch BODY SITE: COLLECTED DATE/TIME: 09/14/2023 15:40 EST RECEIVED DATE/TIME: 09/14/2023 17:48 EST START DATE/TIME: 09/14/2023 17:48 EST FREE TEXT SOURCE: DIANA GARRETT PA-C, PA-C, JENNIFER E FINAL REPORTS Final Report [] Verified Date/Time: 09/16/2023 06:57 EST 5,000 cfu/ml Mixed skin contaminants Performing Locations R1: This test was performed at: [facility], [address] [place] [address], [facility] , , [facility] Comment on above: Performed By: #### 2 [id number] ####[facility] [address] [place] [address] Ambulatory Visit Summaryon 0 09-14-2023 Ambulatory Visit Summary NOEMI BRAND :1960 Visit Date:09/14/2023 Ambulatory Visit Instructions Your Diagnosis Feeling of incomplete bladder emptying Tests Performed Urnls Dip Stick Auto w/o Microscopy POC 64528 Your Care Team Attending Physician - DIANA [...] DIANA GARRETT PA-C Where: [facility] RAD - MISCon 08-30-2023 RAD - MISC [id number] #1.00TIFF [facility] RAD - Ultrasound Reporton RAD - Ultrasound Report [id number] #1.00TIFF [facility] RAD - MISCon 08-26-2023 RAD - MISC [id number] #1.00TIFF [facility] RAD - Ultrasound Reporton RAD - Ultrasound Report [id number] #1.00TIFF [facility] Screenson 08-26-2023 Screens [id number] #1.00TIFF [facility] Patient Educationon 08-25-20 Patient Education Nephrology Dietary [...] Spinach (cooked), rhubarb, beets, sweet potatoes, and Belizean chard. ? Peanuts. ? Potato chips, mohawk fries, and baked potatoes with skin on. ? Nuts and nut products. ? Chocolate. ? If you regularly take a diuretic medicine, make sure to eat at least 1 or 2 servings of fruits or vegetables that are high in potassium each day. These include: ? Avocado. ? Banana. ? [place], prune, carrot, or tomato juice. ? Baked [...] fish oil, or vitamin B6. ? Take bjsm-tjz-mrobqjx and prescription medicines only as told by your health care provider. These include supplements. What foods sh (more content not included)... Normal [facility] Urology Office/Clinic Noteon 08-25-2023 Urology Office/Clinic Note [...] DIANA GARRETT PA-C, URL In 1 year [address] [place] [address] Additional Instructions: w/KUB and LUCY Patient Education [...] (more content not included)... Normal [facility] Comment on above: Result Comment: Elec tronically [...] system. Pl (more content not included)... Normal [facility] Alanine aminotransferase [En zymatic activity/volume] in Serum or PlasmaOrdered By: Contreras Mcmillan on 03-19-2023 ALT [Catalytic activity/Vol] 20 U/L 7-52 [facility] Albumin [Mass/volume] in Ser um or Plasma by Bromocresol green (BCG) dye binding methoOrdered By: Contreras Mcmillan on 03-19-2023 Albumin BCG dye [Mass/Vol] 4.1 g/dL 3.5-5.7 [facility] Alkaline phosphatase [Enzyma tic activity/volume] in Serum or PlasmaOrdered By: Contreras Mcmillan on 03-19-2023 ALP [Catalytic activity/Vol] 88 U/L 34-104 [facility] Aspartate aminotransferase [ Enzymatic activity/volume] in Serum or PlasmaOrdered By: Contreras Mcmillan on 03-19-2023 AST [Catalytic activity/Vol] 16 U/L 13-39 [facility] Automated epithelial cells c ount in urine sediment (number/area)Ordered By: Contreras Mcmillan on 03-19-2023 Epithelial cells Auto (Urine sed) [#/Area] 1-2 [HPF] 0-2 [facility] Automated erythrocytes count in urine sediment (number/area)Ordered By: Contreras Mcmillan on 03-19-2023 RBC Auto (Urine sed) [#/Area] 0-1 [HPF] 0-4 [facility] Automated leukocytes count i n urine sediment (number/area)Ordered By: Contreras Mcmillan on 03-19-2023 WBC Auto (Urine sed) [#/Area] 1-2 [HPF] 0-4 [facility] Automated urine hyaline cast s count (number/volume)Ordered By: Contreras Mcmillan on 03-19-2023 Hyaline casts Auto (U) [#/Vol] None seen [LPF] 0-1 [facility] Basophils Auto (Bld) [#/Vol] Ordered By: Contreras Mcmillan on 03-19-2023 Basophils (Bld) [#/Vol] 0.0 10*3/uL 0.0-0.2 [facility] Basophils/100 WBC Auto (Bld) Ordered By: Contreras Mcmillan on 03-19-2023 Basophils/100 WBC (Bld) 0.6 % . [facility] Bilirubin Test strip Ql (U)O rdered By: Contreras Mcmillan on 03-19-2023 Bilirubin Ql (U) Negative Negative [facility] Bilirubin.total [Mass/volume ] in Serum or PlasmaOrdered By: Contreras Mcmillan on 03-19-2023 Bilirubin [Mass/Vol] 0.3 mg/dL 0.3-1.0 [facility] Calcium [Mass/volume] in Ser um or PlasmaOrdered By: Contreras Mcmillan on 03-19-2023 Calcium [Mass/Vol] 9.1 mg/dL 8.6-10.3 [facility] Carbon dioxide, total [Moles /volume] in Serum or PlasmaOrdered By: Contreras Mcmillan on 03-19-2023 CO2 [Moles/Vol] 28.5 mmol/L 21.0-31.0 [facility] Chloride [Moles/volume] in S josé miguel or PlasmaOrdered By: Contreras Mcmillan on 03-19-2023 Chloride [Moles/Vol] 104 mmol/L 98-107 [facility] Color Auto (U)Ordered By: Jennifer Mcmillan on 03-19-2023 Color (U) Yellow Yellow [facility] Creatinine [Mass/volume] in Serum or PlasmaOrdered By: Contreras Mcmillan on 03-19-2023 Creatinine [Mass/Vol] 1.02 mg/dL 0.60-1.20 [facility] Eosinophils Auto (Bld) [#/Vo l]Ordered By: Contreras Mcmillan on 03-19-2023 Eosinophils (Bld) [#/Vol] 0.1 10*3/uL 0.0-0.45 [facility] Eosinophils/100 WBC Auto (Bl d)Ordered By: Contreras Mcmillan on 03-19-2023 Eosinophils/100 WBC (Bld) 1.5 % . [facility] Erythrocyte distribution wid th Auto (RBC) [Ratio]Ordered By: Contreras Mcmillan on 03-19-2023 Erythrocyte distribution width (RBC) [Ratio] 14.8 % 11.9-15.3 [facility] Erythrocyte sedimentation ra te by Photometric methodOrdered By: Contreras Mcmillan on 03-19-2023 ESR Photometric method (Bld) [Velocity] 21 mm/hr 0-29 [facility] Globulin Calc (S) [Mass/Vol] Ordered By: Contreras Mcmillan on 03-19-2023 Globulin (S) [Mass/Vol] 2.5 g/dL F [facility] Glucose [Mass/volume] in Ser um or PlasmaOrdered By: Contreras Mcmillan on 03-19-2023 Glucose [Mass/Vol] 100 mg/dL 70-100 [facility] Comment on above: ADA recommended refe rence rangeRandom Glucose Reference Range is dependent on time and content of last meal. Glucose of more than 200 mg/dL in a nonstressed, ambulatory subject supports the diagnosis of Diabetes Mellitus. Hematocrit Auto (Bld) [Volum e fraction]Ordered By: Contreras Mcmillan on 03-19-2023 Hematocrit (Bld) [Volume fraction] 39.2 % 34.0-46.4 [facility] Hemoglobin [Mass/volume] in BloodOrdered By: Contreras Mcmillan on 03-19-2023 Hemoglobin (Bld) [Mass/Vol] 12.9 g/dL 11.8-15.4 [facility] Ketones Auto test strip (U) [Mass/Vol]Ordered By: Contreras Mcmillan on 03-19-2023 Ketones (U) [Mass/Vol] Negative Negative [facility] Leukocytes [#/volume] correc jw for nucleated erythrocytes in Blood by Automated counOrdered By: Contreras Mcmillan on 03-19-2023 WBC corrected for nucl RBC Auto (Bld) [#/Vol] 7.7 10*3/uL 3.8-11.6 [facility] Lymphocytes Auto (Bld) [#/Vo l]Ordered By: Contreras Mcmillan on 03-19-2023 Lymphocytes (Bld) [#/Vol] 1.8 10*3/uL 1.00-4.8 [facility] Lymphocytes/100 WBC Auto (Bl d)Ordered By: Contreras Mcmillan on 03-19-2023 Lymphocytes/100 WBC (Bld) 23.7 % . [facility] MCH Auto (RBC) [Entitic mass ]Ordered By: Contreras Mcmillan on 03-19-2023 MCH (RBC) [Entitic mass] 29.7 pg 24.7-34.3 [facility] MCHC Auto (RBC) [Mass/Vol]Or dered By: Contreras Mcmillan on 03-19-2023 MCHC (RBC) [Mass/Vol] 32.8 g/dL 32.0-35.0 [facility] MCV Auto (RBC) [Entitic vol] Ordered By: Contreras Mcmillan on 03-19-2023 MCV (RBC) [Entitic vol] 90.5 fL 80-100 [facility] Monocytes Auto (Bld) [#/Vol] Ordered By: Contreras Mcmillan on 03-19-2023 Monocytes (Bld) [#/Vol] 0.8 10*3/uL 0.0-0.8 [facility] Monocytes/100 WBC Auto (Bld) Ordered By: Contreras Mcmillan on 03-19-2023 Monocytes/100 WBC (Bld) 10.1 % . [facility] Neutrophils Auto (Bld) [#/Vo l]Ordered By: Contreras Mcmillan on 03-19-2023 Neutrophils (Bld) [#/Vol] 4.9 10*3/uL 1.8-7.7 [facility] Neutrophils/100 WBC Auto (Bl d)Ordered By: Contreras Mcmillan on 03-19-2023 Neutrophils/100 WBC (Bld) 64.1 % . [facility] Nitrite Test strip Ql (U)Ord ered By: Contreras Mcmillan on 03-19-2023 Nitrite Ql (U) Negative Negative [facility] No Panel InformationOrdered By: Contreras Mcmillan on 03-19-2023 Estimated GFR (CKD-EPI) > 60.0 mL/Min [facility] Creatinine Clearance (Chem N/A [facility] Nucleated erythrocytes [Pres ence] in Blood by Automated countOrdered By: Contreras Mcmillan on 03-19-2023 Nucleated RBC Auto Ql (Bld) 0.1 /100{WBC} 0-0.5 [facility] Platelet mean volume Auto (B ld) [Entitic vol]Ordered By: Contreras Mcmillan on 03-19-2023 Platelet mean volume (Bld) [Entitic vol] 8.5 fL 6.3-10.7 [facility] Platelets Auto (Bld) [#/Vol] Ordered By: Contreras Mcmillan on 03-19-2023 Platelets (Bld) [#/Vol] 251 10*3/uL 150-450 [facility] Potassium [Moles/volume] in Serum or PlasmaOrdered By: Contreras Mcmillan on 03-19-2023 Potassium [Moles/Vol] 4.0 mmol/L 3.5-5.1 [facility] Protein Auto test strip (U) [Mass/Vol]Ordered By: Contreras Mcmillan on 03-19-2023 Protein (U) [Mass/Vol] Negative Negative [facility] Protein [Mass/volume] in Ser um or PlasmaOrdered By: Contreras Mcmillan on 03-19-2023 Protein [Mass/Vol] 6.6 g/dL 6.4-8.9 [facility] RBC Auto (Bld) [#/Vol]Ordere d By: Contreras Mcmillan on 03-19-2023 RBC (Bld) [#/Vol] 4.33 10*6/uL 3.60-5.00 [facility] Serum or plasma albumin/glob ulin mass ratioOrdered By: Contreras Mcmillan on 03-19-2023 Albumin/Globulin [Mass ratio] 1.6 {ratio} [facility] Serum or plasma anion gap de terminationOrdered By: Contreras Mcmillan on 03-19-2023 Anion gap [Moles/Vol] 10.5 mmol/L 6.0-15.0 [facility] Sodium [Moles/volume] in Ser um or PlasmaOrdered By: Contreras Mcmillan on 03-19-2023 Sodium [Moles/Vol] 139 mmol/L 136-145 [facility] Specific gravity Auto test s trip (U) [Rel density]Ordered By: Contreras Mcmillan on 03-19-2023 Specific gravity (U) [Rel density] 1.006 1.001-1.030 [facility] Urea nitrogen [Mass/volume] in Serum or PlasmaOrdered By: Contreras Mcmillan on 03-19-2023 Urea nitrogen [Mass/Vol] 16 mg/dL 04-06 [facility] Urine bacteria detection by automated methodOrdered By: Contreras Mcmillan on 03-19-2023 Bacteria Auto Ql (U) None seen None Seen [facility] Urine clarity by refractomet ry automatedOrdered By: Contreras Mcmillan on 03-19-2023 Clarity Refractometry automated (U) Clear Clear [facility] Urine glucose measurement by automated test strip (mass/volume)Ordered By: Contreras Mcmillan on 03-19-2023 Glucose Auto test strip (U) [Mass/Vol] Normal mg/dL Normal [facility] Urine hemoglobin detection b y automated test stripOrdered By: Contreras Mcmillan on 03-19-2023 Hemoglobin Auto test strip Ql (U) Negative Negative [facility] Urine leukocyte esterase det ection by automated test stripOrdered By: Contreras Mcmilaln on 03-19-2023 Leukocyte esterase Auto test strip Ql (U) Negative Negative [facility] Urobilinogen Auto test strip (U) [Mass/Vol]Ordered By: Contreras Mcmillan on 03-19-2023 Urobilinogen (U) [Mass/Vol] Normal mg/dL Normal [facility] WBC Auto (Bld) [#/Vol]Ordere d By: Contreras Mcmillan on 03-19-2023 WBC (Bld) [#/Vol] 7.7 10*3/uL 3.8-11.6 [facility] pH Auto test strip (U)Ordere d By: Contreras Mcmillan on 03-19-2023 pH (U) 6.0 [pH] 5.0-9.0 [facility] XR KUB 1 VIEWon 08-07-2022 XR KUB [...] by: YESENIA BLACK Date: 2022-08-07 10:44 Normal [facility] PAP ACOG PANEL 2: 30 to 65on 06-23-2022 . . Normal [facility] Comment on above: Result Comment: Perf ormed at: WB Performed By: #### [id number] #### [facility] [address] [address] [address] Barry Sanchez Age Gdln ACOG Testing 30-65 Normal [facility] Comment on above: Performed By: #### 4 [id number] #### [facility] [address] [address] [address] Barry Sanchez DIAGNOSIS: Comment Normal [facility] Comment on above: Result Comment: NEGA TIVE FOR INTRAEPITHELIAL LESION OR MALIGNANCY. CELLULAR CHANGES ASSOCIATED WITH ATROPHY ARE PRESENT. Performed at: WB Performed By: #### 4 [id number] #### [facility] [address] [place] [address] Dr. Barry Sanchez HPV Aptima Negative Normal Negative [facility] Comment on above: Result Comment: This nucleic acid amplification test detects fourteen high-risk HPV types (16,18,31,33,35,39,45,51,52,56,58,59,66,68) without differentiation. Performed at: =G Performed By: #### 4 [id number] #### [facility] [address] [place] [address] Dr. Barry Sanchez Methodology: Comment Normal [facility] Comment on above: Result Comment: This liquid based ThinPrep(R) pap test was screened with the use of an image guided system. Performed at: WB Performed By: #### 4 [id number] #### [facility] [address] [place] [address] Dr. Barry Sanchez Note: Comment Normal [facility] Comment on above: Result Comment: The Pap smear is a screening test designed to aid in the detection of premalignant and malignant conditions of the uterine cervix. It is not a diagnostic procedure and should not be used as the sole means of detecting cervical cancer. Both false-positive and false-negative reports do occur. . Performed at: WB Performed By: #### 4 [id number] #### [facility] [address] [address] [address] Barry Sanchez Performed by: Comment Normal [facility] Comment on above: Result Comment: Amada Rabago, Mini Baccarat Dealer (ASCP) Performed at: WB Performed By: #### 4 [id number] #### [facility] [address] [address] [address] Barry Sanchez Specimen adequacy: Comment Normal [facility] Comment on above: Result Comment: Sati sfactory for evaluation. Endocervical and/or squamous metaplastic cells (endocervical component) are present. Performed at: WB Performed By: #### 4 [id number] #### [facility] [address] [address] [address] Barry Sanchez MG MAMM SCREEN 3D PRIMO CADon 06-05-2022 MG MAMM SCREEN 3D PRIMO CAD Patient: NOEMI BRAND Exam Date: 06/05/2022 : 1960 Gender:F Ordering : DR KOBI LATHAM . Admission #: [id number] Family : DR ALEXANDER CHEN Order #: [id number] CLICK HERE TO VIEW EXAM RADIOLOGY REPORT [...] thyroid cancer at age 53. LOCATION: [facility] BREAST COMPOSITION: Scattered areas fibroglandular [...] Rabago MD on 06/05/2022 at 10:39 Normal [facility] TSH+FREE T4on 02-11-2022 Free T4 [Mass/Vol] 1.4 ng/dL Normal 0.8-1.8 [facility] Comment on above: Performed By: #### 5 [id number] #### [facility] [address] [facility], [address] [place] [address] Foot Caster: José Miguel Mata MD TSH Qn 1.36 m[IU]/L Normal 0.40-4.50 [facility] Comment on above: Performed By: #### 5 [id number] #### [facility] [address] [place] [address], [address] [place] [address] Foot Caster: José Miguel Mata MD Lipid Profileon 12-11-2021 Cholesterol [Mass/Vol] 158 mg/dL Normal <200 [facility] Comment on above: Result Comment: Cholesterol Guidelines: <200 Desirable 200-240 Borderline >240 Undesirable Performed By: #### L IPR #### [facility] [address] [place] [address] Tunnel Worker: Jose Parikh MD Cholesterol in HDL [Mass/Vol] 46 mg/dL Normal >40 [facility] Comment on above: Result Comment: HDL Guidelines: <40 Undesirable 40-59 Borderline >59 Desirable Performed By: #### L IPR #### [facility] [address] [place] [address] Tunnel Worker: Jose Parikh MD Cholesterol in LDL [Mass/Vol] 74 mg/dL Normal 0-130 [facility] Comment on above: Result Comment: LDL Guidelines: <100 Desirable 100-129 Near to/above Desirable 130-159 Borderline >159 Undesirable Direct (measured) LDL and calculated LDL are not interchangeable tests. Performed By: #### L IPR #### [facility] [address] [place] [address] Tunnel Worker: Jose Parikh MD Cholesterol.total/Wen sterol in HDL [Mass ratio] 3.4 {ratio} Normal <5 [facility] Comment on above: Performed By: #### L IPR #### [facility] [employer] [address] [place] [address] Tunnel Worker: Jose Parikh MD Triglyceride [Mass/Vol] 191 mg/dL High <150 M [facility] Comment on above: Result Comment: Triglyceride Guidelines: <150 Desirable 150-199 Borderline 200-499 High >499 Very high Based on AHA Guidelines for fasting triglyceride, June 2012. Performed By: #### L IPR #### [facility] [address] [place] [address] Tunnel Worker: Jose Parikh MD XR FLUOROSCOPY GREATER THAN ONE HOURon 08-30-2018 XR FLUOROSCOPY GREATER THAN ONE HOUR This is an auto finalized result. Please refer to patient chart for further information. information. information. Normal [facility] Comment on above: Order Comment: Reaso [...] see the dictated operative report.RPS/gesWorkst ation ID: [id number] by: DREA BEAR on WedAug 30, 2018 11:11:02 AM ESTTranscribed by: MARTY JONES on WedAug 30, 2018 11:11:37 AM ESTFinalized by: DREA BEAR on WedAug 30, 2018 4:41:51 PM EST Normal [facility] Comment on above: Order Comment: Reaso [...] throughout the study, limiting assessment of that level.[facility]/hbWorkstat ion ID: [id number] by: SANTOS ANDERSON on WedAug 17, 2018 8:54:40 AM ESTTranscribed by: JILLIAN BETTENCOURT on WedAug 17, 2018 9:00:00 AM ESTFinalized by: SANTOS ANDERSON on WedAug 17, 2018 12:24:05 PM EST Normal [facility] Comment on above: Order Comment: Reaso n for exam?:patInjury/Trauma or Illness?:Illness/OtherHow long have you had these symptoms (acute/chronic)?:AcuteHistory of cancer?:noSurgeries, chemotherapy, or radiation?:neck sxType of Exam?:InitialAdditional signs and symptoms?:hip Sx schedule, no complaints to neck Basic Metabolic Panelon Anion gap 14 mmol/L Invalid Interpretation Code 10 - 20 mmol/L [facility] Bicarbonate (HCO3) 31 mmol/L Invalid Interpretation Code 21 - 32 mmol/L [facility] BUN/Creatinine Ratio 18.6 mg/mg Invalid Interpretation Code 10.0 - 20.0 [facility] Calcium 9.3 mg/dL Invalid Interpretation Code 8.4 - 10.2 mg/dL [facility] Chloride 97 mmol/L Low 98 - 108 mmol/L [facility] Creatinine 1.29 mg/dL High 0.4 - 1.1 mg/dL [facility] eGFR (non-black) 46 mL/min/{1.73_m2} Low >=60 [facility] eGFR (non-black) The eGFR should be used for monitoring renal function only and not for medication dosing. Invalid Interpretation Code [facility] Glucose 113 mg/dL High 65 - 99 mg/dL [facility] Potassium 5.3 mmol/L High 3.5 - 5.1 mmol/L [facility] Sodium 137 mmol/L Invalid Interpretation Code 135 - 145 mmol/L [facility] Urea nitrogen 24 mg/dL Invalid Interpretation Code 8 - 25 mg/dL [facility] CBCon 11-11-2017 Erythrocytes (RBC) 0.00 K/mcL Invalid Interpretation Code 0.00 - 0.00 [facility] Erythrocytes (RBC) 3.86 M/mcL Low 4.00 - 5.20 DM L AB Hematocrit (HCT) 31.5 % Low 36 - 46 % [facility] Hemoglobin (HGB) 9.4 g/dL Low 12 - 16 g/dL [facility] B Interpretation and review of laboratory results Abnormal Invalid Interpretation Code [facility] MCH 24.4 pg Low 26 - 34 pg [facility] MCHC 29.8 g/dL Low 31 - 37 g/dL [facility] MCV 81.6 fL Invalid Interpretation Code 80 - 100 fL [facility] Nucleated erythrocytes/100 erythrocytes 0.0 % Invalid Interpretation Code [facility] Platelet mean volume (PMV) 11.0 fL Invalid Interpretation Code 9 - 15.5 fL [facility] Platelets 198 K/mcL Invalid Interpretation Code 150 - 400 [facility] RDW-CA 22.7 % High 11.6 - 14.8 % [facility] WBC (Leukocytes) 9.87 K/mcL Invalid Interpretation Code 4.50 - 11.00 [facility] PT/INRon 11-11-2017 Coagulation factor induced.INR assay in platelet poor plasma 1.2 {INR} High 0.8 - 1.1 [facility] Coagulation tissue factor induced in platelet poor plasma 15.3 s High 11.8 - 14.3 [facility] INR in blood by coagulation During the induction phase of oral anticoagulation, the INR may not reflect the anticoagulation status of the patient. Therapeutic ranges for INR's are: Most clinical situations: INR 2.0-3.0 Mechanical Prosthetic Valve: INR 2.5-3.5 Critical: INR >5.0 Invalid Interpretation Code [facility] Basic Metabolic Panelon 10-15 Anion gap 16 mmol/L Invalid Interpretation Code 10 - 20 mmol/L [facility] Bicarbonate (HCO3) 30 mmol/L Invalid Interpretation Code 21 - 32 mmol/L [facility] BUN/Creatinine Ratio 16.2 mg/mg Invalid Interpretation Code 10.0 - 20.0 [facility] Calcium 9.5 mg/dL Invalid Interpretation Code 8.4 - 10.2 mg/dL [facility] Chloride 99 mmol/L Invalid Interpretation Code 98 - 108 mmol/L [facility] Creatinine 0.74 mg/dL Invalid Interpretation Code 0.4 - 1.1 mg/dL [facility] eGFR (non-black) 91 mL/min/{1.73_m2} Invalid Interpretation Code >=60 [facility] eGFR (non-black) The eGFR should be used for monitoring renal function only and not for medication dosing. Invalid Interpretation Code [facility] Glucose 130 mg/dL High 65 - 99 mg/dL [facility] Interpretation and review of laboratory results Abnormal Invalid Interpretation Code [facility] Potassium 4.8 mmol/L Invalid Interpretation Code 3.5 - 5.1 mmol/L [facility] Sodium 140 mmol/L Invalid Interpretation Code 135 - 145 mmol/L [facility] Urea nitrogen 12 mg/dL Invalid Interpretation Code 8 - 25 mg/dL [facility] CBCon 11-10-2017 Erythrocytes (RBC) 0.00 K/mcL Invalid Interpretation Code 0.00 - 0.00 [facility] Erythrocytes (RBC) 4.35 M/mcL Invalid Interpretation Code 4.00 - 5.20 [facility] Hematocrit (HCT) 35.3 % Low 36 - 46 % [facility] Hemoglobin (HGB) 10.9 g/dL Low 12 - 16 g/dL [facility] B Interpretation and review of laboratory results Abnormal Invalid Interpretation Code [facility] MCH 25.1 pg Low 26 - 34 pg [facility] MCHC 30.9 g/dL Low 31 - 37 g/dL [facility] MCV 81.1 fL Invalid Interpretation Code 80 - 100 fL [facility] Nucleated erythrocytes/100 erythrocytes 0.0 % Invalid Interpretation Code [facility] Platelet mean volume (PMV) 11.1 fL Invalid Interpretation Code 9 - 15.5 fL [facility] Platelets 251 K/mcL Invalid Interpretation Code 150 - 400 [facility] RDW-CA 22.0 % High 11.6 - 14.8 % [facility] WBC (Leukocytes) 15.05 K/mcL High 4.50 - 11.00 DM L AB PT/INRon 11-10-2017 Coagulation factor induced.INR assay in platelet poor plasma 1.1 {INR} Invalid Interpretation Code 0.8 - 1.1 [facility] Coagulation tissue factor induced in platelet poor plasma 13.8 s Invalid Interpretation Code 11.8 - 14.3 [facility] INR in blood by coagulation During the induction phase of oral anticoagulation, the INR may not reflect the anticoagulation status of the patient. Therapeutic ranges for INR's are: Most clinical situations: INR 2.0-3.0 Mechanical Prosthetic Valve: INR 2.5-3.5 Critical: INR >5.0 Invalid Interpretation Code [facility] Interpretation and review of laboratory results Normal Invalid Interpretation Code [facility] Fluoroscopy Greater Than 1 H ouron 11-09-2017 Fluoroscopy Greater Than 1 Hour This is an auto finalized result. Please refer to patient chart for further information. Invalid Interpretation Code [facility] PT/INRon 11-09-2017 Coagulation factor induced.INR assay in platelet poor plasma 1.1 {INR} Invalid Interpretation Code 0.8 - 1.1 [facility] Coagulation tissue factor induced in platelet poor plasma 13.7 s Invalid Interpretation Code 11.8 - 14.3 [facility] INR in blood by coagulation During the induction phase of oral anticoagulation, the INR may not reflect the anticoagulation status of the patient. Therapeutic ranges for INR's are: Most clinical situations: INR 2.0-3.0 Mechanical Prosthetic Valve: INR 2.5-3.5 Critical: INR >5.0 Invalid Interpretation Code [facility] Interpretation and review of laboratory results Normal Invalid Interpretation Code [facility] Type and Screenon 11-09-2017 ABO+Rh group Positive Invalid Interpretation Code [facility] [employer] Blood group antibody presence Negative Invalid Interpretation Code [facility] Specimen Expires 11/12/2017 23:59 EST Invalid Interpretation Code [facility] XR FLUOROSCOPY GREATER THAN ONE HOURon 11-09-2017 XR FLUOROSCOPY GREATER THAN ONE HOUR This is an auto finalized result. Please refer to patient chart for further information. information. information. Normal [facility] Comment on above: Order Comment: Reaso [...] mGy: Fluoro dose in Ka,r mGy: 1.040.2 minutesFINDINGS:Torey fluoroscopic image of the left hip is submitted demonstrating postoperative changes of left hip arthroplasty. The acetabular and femoral components visualized on the single fluoroscopic image are well seated. Inferior portion of the femoral component is excluded. Alignment appears to be near anatomic.HortonworksJ/gesWork station ID: [id number] by: KYREE GARRIDO on WedNov 09, 2017 9:33:10 AM ESTTranscribed by: MARTY JONES on WedNov 09, 2017 10:07:06 AM ESTFinalized by: KYREE GARRIDO on WedNov 09, 2017 4:03:19 PM EST Normal [facility] Comment on above: Order Comment: Reaso n for exam?:hip painInjury/Trauma or Illness?:Illness/OtherHow long have you had these symptoms (acute/chronic)?:ChronicType of Exam?:OngoingAdditional signs and symptoms?:n/aFluoro time in minutes:.2Fluoro dose in mGy?:1.04 XR OR Hip Left 1 Viewon 10-15 XR OR Hip Left 1 View Interface, Rad In [facility] 11/09/2017 4:06 PM EST EXAMINATION: XR OR HIP LEFT 1 VIEW HISTORY: ORDERING SYSTEM PROVIDED HISTORY: surgery, TECHNOLOGIST PROVIDED HISTORY: Reason for exam: hip pain Illness/Other Encounter Type: Ongoing Additional signs and symptoms: n/a Fluoro dose in mGy: 1.04 ORDERING SYSTEM PROVIDED DIAGNOSIS CODES: COMPARISON: Bilateral hip examination from 12/24/2016 performed at [facility]. FLUOROSCOPY TIME: Fluoro Dose Ka,r mGy: Fluoro dose in Ka,r mGy: 1.04 0.2 minutes FINDINGS: Single fluoroscopic image of the left hip is submitted demonstrating postoperative changes of left hip arthroplasty. The acetabular and femoral components visualized on the single fluoroscopic image are well seated. Inferior portion of the femoral component is excluded. Alignment appears to be near anatomic. [employer] Workstation ID: [id number] Invalid Interpretation Code [employer] [facility] XR OR Hip Left 1 View EXAMINATION: XR OR HIP LEFT 1 VIEW HISTORY: ORDERING SYSTEM PROVIDED HISTORY: surgery, TECHNOLOGIST PROVIDED HISTORY: Reason for exam: hip pain Illness/Other Encounter Type: Ongoing Additional signs and symptoms: n/a Fluoro dose in mGy: 1.04 ORDERING SYSTEM PROVIDED DIAGNOSIS CODES: COMPARISON: Bilateral hip examination from 12/24/2016 performed at [facility]. FLUOROSCOPY TIME: Fluoro Dose Ka,r mGy: Fluoro dose in Ka,r mGy: 1.04 0.2 minutes FINDINGS: Single fluoroscopic image of the left hip is submitted demonstrating postoperative changes of left hip arthroplasty. The acetabular and femoral components visualized on the single fluoroscopic image are well seated. Inferior portion of the femoral component is excluded. Alignment appears to be near anatomic. [employer] Workstation ID: [id number] Invalid Interpretation Code [employer] [facility] APTTon 10-21-2017 aPTT 30 s Invalid Interpretation Code 23 - 34 [facility] aPTT Therapeutic range for APTT's is 68 - 104 seconds Invalid Interpretation Code [facility] Interpretation and review of laboratory results Normal Invalid Interpretation Code [facility] Albuminon 10-21-2017 Albumin 4.5 g/dL Invalid Interpretation Code 3.2 - 5.2 g/dL [facility] PT/INRon 10-21-2017 Coagulation factor induced.INR assay in platelet poor plasma 1.3 {INR} High 0.8 - 1.1 [facility] Coagulation tissue factor induced in platelet poor plasma 15.6 s High 11.8 - 14.3 [facility] INR in blood by coagulation During the induction phase of oral anticoagulation, the INR may not reflect the anticoagulation status of the patient. Therapeutic ranges for INR's are: Most clinical situations: INR 2.0-3.0 Mechanical Prosthetic Valve: INR 2.5-3.5 Critical: INR >5.0 Invalid Interpretation Code [facility] Interpretation and review of laboratory results Abnormal Invalid Interpretation Code [facility] Type and Screenon 10-21-2017 ABO+Rh group Positive Invalid Interpretation Code [facility] Blood group antibody presence Negative Invalid Interpretation Code [facility] Specimen Expires 11/08/2017 23:59 EST Invalid Interpretation Code [facility] SCAN OTHER ORDERSon 09-23-19 18 SCAN OTHER ORDERS Ordered by an unspecified provider. Invalid Interpretation Code [facility] Vital Signs Date Time Vital Sign Value Performing Clinician Facility 07-20-2024 14:15-0500 Body mass index (BMI) [Ratio] 34.44 kg/m2 Alexander Leonoranisha DO Work Phone: [facility] 07-20-2024 14:15-0500 Body temperature 98.6 [degF] Alexander Chen DO Work Phone: [facility] 07-20-2024 14:15-0500 Body weight 96.8 kg Alexander Leonoranisha DO Work Phone: [facility] 07-20-2024 14:15-0500 Diastolic blood pressure 82 mm[Hg] Alexander Chen DO Work Phone: [facility] 07-20-2024 14:15-0500 Heart rate 69 /min Alexander Chen DO Work Phone: [facility] 07-20-2024 14:15-0500 SaO2% (BldA) [Mass fraction] 93 % Alexander Chen DO Work Phone: [facility] 07-20-2024 14:15-0500 Systolic blood pressure 130 mm[Hg] Alexander Yoos DO Work Phone: [facility] 06-26-2024 14:08-0400 Body mass index (BMI) [Ratio] 34.95 kg/m2 Kobi Noa DO Work Phone: [facility] 06-26-2024 14:08-0400 Body weight 95.25 kg Kobi Noa DO Work Phone: [facility] 06-26-2024 14:08-0400 Diastolic blood pressure 84 mm[Hg] Kobi Noa DO Work Phone: [facility] 06-26-2024 14:08-0400 Systolic blood pressure 126 mm[Hg] Kobi Noa DO Work Phone: [facility] 12-09-2023 09:54-0400 Body height 170.2 cm Alexander Chen DO Work Phone: [facility] 12-09-2023 09:54-0400 Body mass index (BMI) [Ratio] 33.34 kg/m2 Alexander Yoos DO Work Phone: [facility] 12-09-2023 09:54-0400 Body temperature 98.91 [degF] Alexander Yoos DO Work Phone: [facility] 12-09-2023 09:54-0400 Body weight 96.57 kg Alexander Yoos DO Work Phone: [facility] 12-09-2023 09:54-0400 Diastolic blood pressure 68 mm[Hg] Alexander Yoos DO Work Phone: [facility] 12-09-2023 09:54-0400 Heart rate 81 /min Alexander Chen DO Work Phone: [facility] 12-09-2023 09:54-0400 Respiratory rate 20 /min Alexander Chen DO Work Phone: [facility] 12-09-2023 09:54-0400 SaO2% (BldA) [Mass fraction] 96 % Alexander Chen DO Work Phone: [facility] 12-09-2023 09:54-0400 Systolic blood pressure 126 mm[Hg] Alexander Chen DO Work Phone: [facility] 08-25-2022 12:58-0500 Blood Pressure Location DIANA GERRY [facility] 08-25-2022 12:58-0500 Diastolic blood pressure 84 mm[Hg] DIANA GERRY [facility] 08-25-2022 12:58-0500 Heart rate 77 /min DIANA GERRY [facility] 08-25-2022 12:58-0500 Respiratory rate 16 /min DIANA GERRY [facility] 08-25-2022 12:58-0500 Systolic blood pressure 140 mm[Hg] DIANA GERRY [facility] 11-11-2017 07:27-0500 Body Temperature 97.9 [degF] Lina [facility] 11-11-2017 07:27-0500 BP Diastolic 71 mm[Hg] [facility]-11-2017 07:27-0500 BP Systolic 111 mm[Hg] [facility] 11-11-2017 07:27-0500 Pulse (Heart Rate) 57 /min Lina Elizabeth [facility] 11-11-2017 07:27-0500 Pulse Oximetry 93 % Lina [facility] 11-11-2017 07:27-0500 Respiratory Rate 15 /min Lina [facility] 11-09-2017 06:26-0500 BMI (Body Mass Index) 36.32 kg/m2 Lina Elizabeth [facility] 11-09-2017 06:26-0500 Height 165.1 cm Lina Elizabeth [facility] 11-09-2017 06:26-0500 Weight 99 kg Lina Elizabeth [facility] 10-21-2017 12:12-0500 BMI (Body Mass Index) 35.59 kg/m2 [facility] Work Phone: 10-21-2017 12:12-0500 Body Temperature 99.7 [degF] [facility] Work Phone: 10-21-2017 12:12-0500 BP Diastolic 93 mm[Hg] [facility] Work Phone: 10-21-2017 12:12-0500 BP Systolic 160 mm[Hg] Rossana [facility] Work Phone: 10-21-2017 12:12-0500 Height 165.1 cm [facility] Work Phone: 10-21-2017 12:12-0500 Pulse (Heart Rate) 88 /min [facility] Work Phone: 10-21-2017 12:12-0500 Pulse Oximetry 94 % Ross[facility] Work Phone: 10-21-2017 12:12-0500 Weight 97 kg [facility] Work Phone: Encounters Encounter Date Encounter Type Care Provider Facility Start: 08-11-2024 End: 08-11-2024 ambulatory Carlotta Stanley Facility:[facility] Start: 08-07-2024 End: 08-07-2024 Refill Alexander Chen DO Work Phone: [facility] Comment on above: Iron deficiency anem ia, unspecified iron deficiency anemia type; Hypothyroidism, unspecified type Start: 08-04-2024 End: 08-04-2024 [facility] Start: 08-04-2024 End: 08-04-2024 Follow-up encounter [facility] 2 [facility] Medication Therapy Management 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) Start: 08-02-2024 End: 08-02-2024 Refill Alexander Chen DO Work Phone: [facility] Comment on above: Essential hypertensi on (Primary Dx); Mild persistent asthma without complication Start: 08-02-2024 End: 08-02-2024 Refill Alexander Chen DO Work Phone: [facility] Comment on above: Cervical spondylosis with radiculopathy; Gastroesophageal reflux disease, unspecified whether esophagitis present Start: 07-31-2024 End: 08-01-2024 Refill Lana Arceo ACCOUNTING MANAGER ASSISTANT CONTROLLER-PUBLICITY EXPERT Work Phone: [facility] Comment on above: Mild persistent asth ma without complication (Primary Dx) Start: 07-26-2024 End: 07-26-2024 Refill Alexander Chen DO Work Phone: [facility] Comment on above: Gastroesophageal ref lux disease, unspecified whether esophagitis present Start: 07-21-2024 End: 07-21-2024 Follow-up encounter [facility] 2 [facility] Medication Therapy Management 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) Start: 07-21-2024 End: 07-21-2024 ambulatory [facility] Start: 07-20-2024 End: 07-20-2024 ambulatory [facility] Start: 07-20-2024 End: 07-20-2024 Office outpatient visit 25 minutes Alexander Chen DO Work Phone: [facility] Comment on above: Mild persistent asth ma without complication (Primary Dx); Essential hypertension; Gastroesophageal reflux disease, unspecified whether esophagitis present; Lupus anticoagulant disorder ([facility]); B12 deficiency; Mixed hyperlipidemia; Encounter for immunization Start: 07-20-2024 End: 07-20-2024 ambulatory [facility] Start: 07-14-2024 End: 07-14-2024 Follow-up encounter [facility] Medication Therapy Management 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) Start: 07-14-2024 End: 07-14-2024 ambulatory [facility] Start: 06-27-2024 End: 06-27-2024 Refill Alexander Chen DO Work Phone: [facility] Comment on above: Mild persistent asth ma without complication Start: 06-26-2024 End: 06-26-2024 Bamboo flowsheet Kobi Noa DO Work Phone: [facility] Start: 06-26-2024 End: 07-04-2024 Bamboo flowsheet Kobi Noa DO Work Phone: [facility] Start: 06-26-2024 End: 07-04-2024 Clinisync Result Encounter Kobi Noa DO Work Phone: [facility] External Department Unsolicited Start: 06-26-2024 End: 06-26-2024 Patient encounter procedure Kobi Noa DO Work Phone: [facility] Comment on above: Well woman exam with routine gynecological exam; Postmenopausal state; Breast cancer screening by mammogram Start: 06-26-2024 End: 06-26-2024 ambulatory KOBI NOA Not Available Start: 06-21-2024 End: 06-21-2024 Telephone encounter Sony Sampson CMA [facility] Start: 06-16-2024 End: 06-16-2024 ambulatory None Provider Facility:[facility] Start: 06-15-2024 End: 06-15-2024 Telephone encounter Mauro Levin MD Work Phone: [facility] Start: 06-15-2024 End: 06-15-2024 Follow-up encounter [facility] Medication Therapy Management Comment on above: USP (current) use of 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 (Primary Dx) Start: 06-15-2024 End: 06-16-2024 [facility] Start: 06-13-2024 End: 06-13-2024 Refill Shayy Leonard [facility] Comment on above: Iron deficiency anem ia due to chronic blood loss Start: 06-06-2024 ambulatory None Provider Facility: [facility] Start: 06-01-2024 End: 06-01-2024 ambulatory None Provider Facility:[facility] Start: 06-01-2024 End: 06-01-2024 ambulatory Jillian Nieves ACCOUNTING MANAGER ASSISTANT CONTROLLER-PUBLICITY EXPERT Facility:[facility] Start: 05-26-2024 End: 05-26-2024 ambulatory MAURO LEVIN Not Available Start: 05-12-2024 End: 05-12-2024 ambulatory None Provider Facility:[facility] Start: 05-12-2024 End: 05-12-2024 ambulatory [facility] Start: 05-12-2024 End: 05-12-2024 ambulatory Lina Schwab MD Facility:[facility] Start: 05-11-2024 End: 05-14-2024 ambulatory [facility] Start: 05-09-2024 End: 05-09-2024 ambulatory [facility] Noreen [facility] Start: 05-04-2024 End: 05-04-2024 ambulatory Jillian Nieves Facility:[facility] Start: 05-04-2024 End: 05-04-2024 ambulatory Alexander Chen DO Facility:[facility] Start: 04-14-2024 End: 04-14-2024 ambulatory None Provider Facility:[facility] Start: 04-13-2024 End: 05-14-2024 ambulatory Alexander Chen DO Facility:[facility] Start: 03-23-2024 End: 03-23-2024 ambulatory Jillian Nieves Facility:[facility] Start: 03-23-2024 End: 03-23-2024 ambulatory Alexander Chen DO Facility:[facility] Start: 03-17-2024 End: 03-17-2024 ambulatory [facility] Start: 02-25-2024 End: 02-25-2024 Patient encounter procedure DO Alexander Chen Work Phone: [facility] [place] Work Phone: Start: 02-25-2024 End: 02-25-2024 ambulatory DO Alexander Chen Work Phone: [facility] Work Phone: Start: 02-18-2024 End: 02-18-2024 ambulatory [facility] Start: 02-18-2024 End: 02-18-2024 ambulatory MAURO LEVIN Not Available Start: 02-11-2024 End: 02-12-2024 ambulatory [facility] Start: 02-04-2024 End: 02-04-[address] [facility] Facility:[facility] Start: 02-04-2024 End: 02-04-2024 ambulatory [facility] Start: 02-03-2024 End: 02-03-2024 ambulatory [facility] Start: 01-27-2024 End: 01-27-2024 ambulatory Jillian Nieves Facility:[facility] Start: 01-27-2024 End: 01-27-2024 ambulatory Alexander Chen DO Facility:[facility] Start: 01-21-2024 End: 01-21-2024 ambulatory [facility] Start: 12-24-2023 End: 12-24-2023 ambulatory [facility] Facility:[facility] Start: 12-23-2023 End: 12-24-2023 ambulatory Alexander Chen DO Facility:[facility] Start: 12-17-2023 End: 12-17-2023 Follow-up encounter [facility] Medication Therapy Management 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) Start: 12-17-2023 End: 12-17-2023 ambulatory [facility] Start: 12-16-2023 End: 12-16-2023 ambulatory None Provider Facility:[facility] Start: 12-16-2023 End: 12-16-2023 ambulatory [facility] Jose Yuanisha BATEMAN Facility:[facility] Start: 12-15-2023 Refill Alexander Mujica O Work Phone: [facility] Comment on above: Gastroesophageal ref lux disease, unspecified whether esophagitis present Start: 12-09-2023 End: 12-09-2023 ambulatory [facility] Start: 12-09-2023 End: 12-09-2023 Office outpatient visit 25 minutes Alexander Chen DO Work Phone: [facility] Comment on above: Essential hypertensi on (Primary Dx); B12 deficiency; Mild persistent asthma without complication; Iron deficiency anemia, unspecified iron deficiency anemia type Start: 12-09-2023 End: 12-09-2023 ambulatory [facility] Start: 12-02-2023 Refill Alexander Mujica O Work Phone: [facility] [facility] Comment on above: Essential hypertensi on Start: 11-26-2023 End: 11-26-2023 ambulatory JILLIAN M KYRA [facility] Start: 11-26-2023 End: 11-26-2023 ambulatory MAURO LEVIN Not Available Start: 11-25-2023 Refill Alexander Mujica O Work Phone: [facility] Comment on above: Hypothyroidism, unsp ecified type Start: 11-19-2023 End: 11-19-2023 ambulatory None Provider Facility:[facility] Start: 11-19-2023 End: 11-19-2023 Follow-up encounter [facility] 2 [facility] Medication Therapy Management 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) Start: 11-19-2023 End: 11-19-2023 ambulatory [facility] Start: 11-19-2023 End: 11-19-2023 ambulatory Alexander Chen DO Facility:[facility] Start: 11-15-2023 End: 11-15-2023 ambulatory [facility] Provider Facility:[facility] Start: 11-15-2023 End: 11-15-2023 ambulatory Alexander Chen Facility:[facility] Start: 11-05-2023 End: 11-05-2023 Follow-up encounter [facility] 1 [facility] Medication Therapy Management Comment on above: USP (current) use of 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 (Primary Dx) Start: 11-05-2023 End: 11-05-2023 [employer] Start: 11-01-2023 End: 11-01-2023 ambulatory 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 APRN-PUBLICITY EXPERT Facility:[facility] Start: 10-20-2023 End: 10-20-2023 Lab Drop off Kasandra Christopher [facility] Start: 10-20-2023 End: 10-20-2023 ambulatory Kasandra Christopher Facility:[facility] Start: 10-06-2023 Refill Alexander Navarro Work Phone: [facility] Comment on above: Gastroesophageal ref lux disease, unspecified whether esophagitis present Start: 10-06-2023 End: 10-06-2023 ambulatory Lina Schwab MD Facility:[facility] Start: 10-05-2023 End: 10-05-2023 Follow-up encounter [facility] Medication Therapy Management Comment on above: USP (current) use of 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 (Primary Dx) Start: 10-05-2023 End: 10-05-2023 ambulatory [facility] Start: 10-04-2023 End: 10-04-2023 Patient encounter procedure DO Alexander Chen Work Phone: [facility] [place] Work Phone: Start: 10-04-2023 End: 10-04-2023 ambulatory DO Alexander Chen Work Phone: [facility] Work Phone: Start: 09-28-2023 End: 09-28-2023 ambulatory DIANA GARRETT Facility:[facility] Start: 09-28-2023 End: 09-28-2023 Patient encounter procedure DIANA GARRETT [facility] Start: 09-24-2023 End: 09-24-2023 ambulatory Leann X Orzech Facility:[facility] Start: 09-24-2023 End: 09-24-2023 Lab Drop off Leann X Orzech [facility] Start: 09-24-2023 End: 09-24-2023 Patient encounter procedure DIANA GARRETT 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) Start: 09-23-2023 End: 09-23-2023 ambulatory 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 ACCOUNTING MANAGER ASSISTANT CONTROLLER-PUBLICITY EXPERT Facility:[facility] Start: 09-14-2023 End: 09-14-2023 Lab Drop off DIANA GARRETT [facility] Start: 09-14-2023 End: 09-14-2023 ambulatory DIANA GARRETT Facility:[facility] Start: 08-25-2023 End: 08-25-2023 ambulatory DIANA GARRETT Facility:[facility] Start: 08-19-2023 End: 09-13-2023 ambulatory Lina Schwab MD Facility:[facility] Start: 08-10-2023 End: 08-10-2023 ambulatory 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 Work Phone: Start: 03-19-2023 End: 03-19-2023 Patient encounter procedure DO Alexander Chen Work Phone: [facility] [place] Work Phone: Start: 08-25-2022 End: 08-25-2022 Patient encounter procedure DIANA GARRETT [facility] Start: 08-07-2022 End: 08-08-[address] ТАТЬЯНА JONES JR Facility:[facility] Start: 06-16-2022 End: 06-16-[address] KOBI LATHAM Facility:[facility] Start: 06-05-2022 End: 06-06-[address] KOBI LATHAM Facility:[facility] Start: 12-10-2021 End: 12-11-2021 ambulatory SHEREE JIAN [facility] Start: 12-10-2021 End: 12-10-2021 Subsequent hospital visit by physician Alexander Chen Work Phone: [facility] Start: 08-30-2018 End: 09-01-2018 Evaluation and management of inpatient LINA TRACY [facility] Start: 08-16-2018 End: 08-17-2018 Patient encounter procedure LINA TRACY [facility] Start: 08-16-2018 Encounter for other preprocedural examination [facility] Start: 08-16-2018 Encounter for preprocedural cardiovascular examination [facility] Start: 08-16-2018 End: 08-16-2018 Patient encounter procedure LINA TRACY [facility] Start: 02-23-2018 End: 02-23-2018 Ambulatory ROSANGELA DUMONT [facility] Start: 11-09-2017 End: 11-11-2017 Evaluation and management of inpatient LINA TRACY [facility] Start: 11-09-2017 End: 11-11-2017 Evaluation and management of inpatient Lian Elizabeth Work Phone: [facility] Start: 10-21-2017 End: 10-21-2017 Patient encounter procedure LINA TRACY [facility] Start: 10-21-2017 Patient encounter Lina Elizabeth Work Phone: [facility] Preadmission Testing Encounter for other preprocedural examination [facility] Encounter for preprocedural cardiovascular examination [facility] Procedures Date Procedure Procedure Detail Performing Clinician Start: 08-04-2024 Prothrombin time [employer] Work Phone: Start: 07-21-2024 [employer] Work Phone: Start: 07-20-2024 Adult depression scr eening assessment Alexander Chen DO Work Phone: Start: 07-14-2024 [employer]throm[employer] Work Phone: Start: 06-26-2024 IGP,APTIMA HPV,AGE GDLN Kobi Noa DO Work Phone: Start: 06-15-2024 Prothrombin time [employer] Work Phone: Start: 05-09-2024 Adult depression scr eening assessment Shayy Leonard [employer] [facility] Start: 12-17-2023 Prothrombin time [employer] Work Phone: Start: 12-09-2023 Adult depression scr eening assessment Alexander Chen DO Work Phone: Start: 11-19-2023 Prothrombin time Jobst [...] DIANA GARRETT Start: 09-13-2015 Extraction of cataract DIANA GARRETT Start: 09-13-2014 Vena cava filter (ph ysical object) DIANA GARRETT Start: 09-13-2008 Discectomy of spine JOSSELYN GARRETT Start: 09-13-1997 History of operative procedure on knee DIANA GARRETT Start: 09-13-1987 Cystoscope, device ( physical object) DIANA GARRETT Start: 09-13-1986 section CLYDE GARRETT Plan of Treatment Date Care Activity Detail Author Start: 06-03-2026 Screening for malign ant neoplasm of colon [facility] Start: 07-20-2025 Adult BMI Screening Adult BMI Screen ing [facility] Start: 07-20-2025 Depression Screening Depression Scre ening [facility] Start: 07-20-2025 Tobacco Screening Tobacco Screening [facility] Start: 07-03-2025 End: 07-03-2025 Patient encounter procedure 07/03/2025 10:00 AM EDT Office Visit [facility] [address] [place] [id number] Kobi Latham, DO [address] [place] [address] [facility] Start: 05-09-2025 Adult BMI Screening Adult BMI Screen ing [facility] Start: 05-09-2025 Depression Screening Depression Scre ening [facility] Start: 05-09-2025 End: 05-09-2025 Patient encounter procedure 05/09/2025 1:00 PM EDT Office Visit [facility] [address] [place] [id number] Alexander Chen, DO [address] [place] [address] [facility] Start: 12-08-2024 Adult BMI Screening Adult BMI Screen ing [facility] Start: 12-08-2024 Depression Screening Depression Scre ening [facility] Start: 12-08-2024 Tobacco Screening Tobacco Screening [facility] Start: 09-15-2024 End: 09-15-2024 Patient encounter procedure 09/15/2024 8:00 AM EST Appointment [facility] - Pulmonary Function [address] [place] [address] Alexander Chen, DO [address] [place] [address] [facility] Start: 09-01-2024 End: 09-01-2024 Patient encounter procedure 09/01/2024 10:10 AM EST Office Visit [facility] [address] [facility] [address] [place] [phone] Mauro Levin MD [address] [facility] [address] [address] [facility] Start: 09-01-2024 End: 09-01-2024 Follow-up encounter 09/01/2024 8:30 AM EST Follow Up Anticoagulation [facility] Medication Therapy Management [address] [place] [place] [address] [facility] Start: 08-29-2024 ambulatory Ambulatory Facility:[facility] Start: 08-13-2024 Screening for malign ant neoplasm of breast Mammogram [facility] Start: 08-04-2024 End: 08-04-2024 Follow-up encounter 08/04/2024 8:15 AM EST Follow Up Anticoagulation [facility] Med[facility] Therapy Management [address] [place] [place] [address] [facility] Start: 07-21-2024 End: 07-21-2024 Follow-up encounter 07/21/2024 11:00 AM EST Follow Up Anticoagulation [facility] Medication Therapy Management [address] [place] [address] [facility] Start: 07-20-2024 End: 07-20-2024 Patient encounter procedure 07/20/2024 1:30 PM EST Office Visit [facility] [address] [place] [address] Alexander Chen DO [address] [place] [address] [facility] Start: 07-14-2024 End: 07-14-2024 Follow-up encounter 07/14/2024 9:00 AM EDT Follow Up Anticoagulation [facility] Medication Therapy Management [address] [place] [address] [facility] Start: 06-27-2024 Adult BMI Screening Adult BMI Screen ing [facility] Start: 06-27-2024 Tobacco Screening Tobacco Screening [facility] Start: 06-26-2024 End: 08-26-2025 MG Breast - bilateral Screening Bilateral screening mammogram Imaging Routine Breast cancer screening by mammogram Expected: 06/26/2024 (Approximate), Expires: 08/26/2025 [facility] Work Phone: Comment on above: Expected: 06/26/2024 (Approximate), Expires: 08/26/2025 Start: 06-26-2024 End: 06-26-2024 Patient encounter procedure [facility] Comment on above: Arrived Start: 06-15-2024 End: 06-15-2024 Follow-up encounter 06/15/2024 9:30 AM EDT Follow Up Anticoagulation [facility] Management [address] [place] [address] [facility] Start: 05-14-2024 COVID-19 Vaccine ( season) COVID-19 Vaccine ( season) [facility] Start: 05-14-2024 COVID-19 Vaccine ( season) COVID-19 Vaccine ( season) [facility] Start: 05-14-2024 Influenza vaccination [facility] Start: 05-09-2024 End: 05-09-2024 Patient encounter procedure 05/09/2024 11:10 AM EDT Office Visit [facility] [address] [place] [address] [facility] Internal Medicine - Family Medicine Start: 05-06-2024 [facility] Start: 02-25-2024 Hemolytic complement CH50 level [facility] Start: 12-23-2023 End: 12-23-2023 Follow-up encounter 12/23/2023 12:45 PM EDT Follow Up Anticoagulation [facility] Med[facility] Therapy Management [address] [place] [address] [facility] Start: 12-17-2023 End: 12-17-2023 Follow-up encounter 12/17/2023 9:15 AM EDT Follow Up Anticoagulation [facility] Med[facility] Therapy Management [address] [place] [address] [facility] Start: 12-09-2023 End: 12-09-2023 Patient encounter procedure 12/09/2023 10:00 AM EDT Office Visit [facility] Internal Medicine - Family Medicine [address] [place] [address] Alexander Chen, [address] [facility] [place] [address] [facility] Internal Medicine - Family Medicine Start: 11-26-2023 End: 11-26-2023 Patient encounter procedure 11/26/2023 2:15 PM EDT Appointment [facility] - MRI Imaging [address] [place] [address] [facility] Start: 11-19-2023 End: 11-19-2023 Follow-up encounter 11/19/2023 9:15 AM EST Follow Up Anticoagulation [facility] Management [address] [place] [address] [facility] Start: 11-05-2023 End: 11-05-2023 Follow-up encounter 11/05/2023 9:30 AM EST Follow Up Anticoagulation [facility] [address] [place] [address] [facility] Start: 10-05-2023 End: 10-05-2023 Follow-up encounter 10/05/2023 9:00 AM EST Follow Up Anticoagulation [facility] Med[facility] Therapy Management [address] [place] [address] [facility] Start: 10-04-2023 Hemolytic complement CH50 level [facility] Start: 05-14-2023 COVID-19 Vaccine ( season) COVID-19 Vaccine ( season) [facility] Start: 03-19-2023 Hemolytic complement CH50 [facility] Start: 05-14-2021 Influenza vaccination Flu vaccine (# 1) [facility] Start: 11-09-2017 Ambulatory [facility] Start: 09-27-2017 Thyroid stimulating hormone measurement TSH testing [facility] Start: 05-14-2017 Influenza vaccination SEQUENTI AL INFLUENZA VACCINE (#1) [facility] Work Phone: Start: 2011 Screening for malign ant neoplasm of breast Breast cancer screen [facility] Start: 2011 Shingles Vaccine (1 of 2) Shingles Vaccine (1 of 2) [facility] Start: 2006 Screening for malign ant neoplasm of colon [facility] Start: 1991 Screening for malign ant neoplasm of cervix [facility] Start: 1982 Screening for malign ant neoplasm of cervix Pap smear [facility] Start: 1980 DTaP,Tdap and Td Vaccines (1 - Tdap) DTaP,Tdap and Td Vaccines (1 - Tdap) [facility] Start: 1980 DTaP/Tdap/Td vaccine (1 - Tdap) DTaP/Tdap/Td vaccine (1 - Tdap) [facility] Start: 1979 Adult BMI Follow Up Plan Adult BMI F ollow Up Plan [facility] Start: 1976 HIV screening HIV screen [facility] Start: 1973 Depression Monitoring Depression Mon itoring [facility] Start: 1971 Lipid panel Lipid screen [facility] Start: 1966 COVID-19 Vaccine (1) COVID-19 Vaccin e (1) [facility] Start: 1961 Hepatitis C screening Hepatitis C [facility] Start: 1961 Screening for malign ant neoplasm of colon [facility] Start: 1961 HEPATITIS C SCREENING HEPATITIS C [facility] Work Phone: Start: 1961 Screening colonoscopy COLONOSCOPY [facility] Work Phone: Start: 1961 Screening for malign ant neoplasm of cervix PAP SMEAR [facility] Work Phone: Start: 1961 Tetanus vaccination TETANUS EVERY 10 YR [facility] Work Phone: End: 07-20-2025 CBC W Auto Differential panel - Blood CBC auto differential Lab Routine B12 deficiency 1 Occurrences starting 07/20/2024 until 07/20/2025 [employer] Work Phone: Comment on above: 1 Occurrences starti ng 07/20/2024 until 07/20/2025 Complement C3 [Mass/volume] in Serum or Plasma [facility] Complement C3 [Mass/volume] in Serum or Plasma [facility] Complement C3 [Mass/volume] in Serum or Plasma [facility] Complement C4 [Mass/volume] in Serum or Plasma [facility] Complement C4 [Mass/volume] in Serum or Plasma [facility] Complement C4 [Mass/volume] in Serum or Plasma [facility] End: 07-20-2025 Comprehensive metabolic 2000 panel - Serum or Plasma Comprehensive metabolic panel Lab Routine Mixed hyperlipidemia 1 Occurrences starting 07/20/2024 until 07/20/2025 [facility]: 1 Occurrences starti ng 07/20/2024 until 07/20/2025 End: 07-20-2025 Cyanocobalamin vitamin b-12 Vitamin B12 Lab Routine B12 deficiency 1 Occurrences starting 07/20/2024 until 07/20/2025 [facility] Comment on above: 1 Occurrences starti ng 07/20/2024 until 07/20/2025 ECG 12 Lead ECG 12 Lead Rout ine Pre-op exam Ordered: 10/21/2017 [employer] Work Phone: HbA1c Hemoglobin A1c R outine 10/21/2017 12:20 PM EST [employer] Work Phone: End: 07-20-2025 Lipid 1996 panel - Serum or Plasma Lipid profile Lab Routine Mixed hyperlipidemia 1 Occurrences starting 07/20/2024 until 07/20/2025 [employer] Comment on above: 1 Occurrences starti ng 07/20/2024 until 07/20/2025 End: 12-10-2021 [facility] Work Phone: Comment on above: Once for 1 Occurrenc es starting 12/10/2021 until 12/10/2021 Nicotine and Metabolites, Blood Nicotine and Metabolites, Blood Routine 10/21/2017 12:20 PM [employer] Phone: End: 07-20-2025 Pulmonary function test Complete PFT w/ BD (Spirometry (Flow Volume Loop) pre/post short acting bronchodilator w/ DLCO (diffusion study) and Lung Volume) Pulmonary function test Complete PFT w/ BD (Spirometry (Flow Volume Loop) pre/post short acting bronchodilator w/ DLCO (diffusion study) and Lung Volume) PFT Routine Mild persistent asthma without complication 1 Occurrences starting 07/20/2024 until 07/20/2025 [facility] Comment on above: 1 Occurrences starti ng 07/20/2024 until 07/20/2025 THIN PREP TIS PAP AN D HR HPV DNA THIN PREP TIS PAP AND HR HPV DNA Pathology and Cytology Routine Well woman exam with routine gynecological exam Ordered: 06/26/2024 [facility] Comment on above: Ordered: 06/26/2024 Vitamin D, Total, 25-OH Vitamin D, Total, 25-OH Routine 10/21/2017 12:20 PM [facility] Work Phone: Immunizations Immunization Date Immunization Notes Care Provider Nabeel rand 07-20-2024 Seasonal trivalent influenza vaccine, adjuvanted, preservative free Alexander Chen DO Work Phone: [facility] 07-20-2024 Immunization, In Clinic,; Translations: [Drug or medicament (substance)] Alexander Chen DO Work Phone: [facility] 07-23-2023 influenza virus vaccine, unspecified formulation DIANA GARRETT [facility] 07-23-2023 influenza, injectabl e, quadrivalent, preservative free [facility] 1 [facility] Work Phone: 01-16-2021 SARS-CoV-2 (COVID-19 ) mRNA-1273 vaccine DIANA GARRETT [facility] 01-14-2021 SARS-CoV-2 (COVID-19 ) mRNA-1273 vaccine DIANA GARRETT [facility] Comment on above: Result Comment: 2021: [id number] 01-13-2021 COVID-19, mRNA, LNP- S, PF, 100mcg/0.5mL Dose [facility] 1 [facility] 12-19-2020 SARS-CoV-2 (COVID-19 ) mRNA-1273 vaccine DIANA GERRY [facility] 12-18-2020 COVID-19, mRNA, LNP- S, PF, 100mcg/0.5mL Dose [facility] 1 [facility] 06-13-2020 influenza virus vaccine, unspecified formulation DIANA GARRETT [facility] 2020 influenza virus vaccine, unspecified formulation DIANA GERRY [facility] 2020 influenza, seasonal, injectable Pmh 1 [facility] 06-03-2020 influenza, seasonal, injectable P[facility] 1 [facility] 06-27-2019 zoster vaccine recombinant DIANA GERRY [facility] 05-10-2019 influenza, injectabl e, quadrivalent, preservative free P[facility] 1 [facility] 04-25-2019 zoster vaccine recombinant DIANA GERRY [facility] 06-26-2018 influenza virus vaccine, unspecified formulation DIANA GERRY [facility] 06-26-2018 influenza, injectabl e, quadrivalent, preservative free P[facility] 1 [facility] 06-13-2018 influenza virus vaccine, unspecified formulation DIANA GERRY [facility] 06-13-2018 influenza, injectabl e, quadrivalent, contains preservative P[facility] 1 [facility] 03-08-2018 pneumococcal conjuga te vaccine, 13 valent DIANA GERRY [facility] 06-14-2017 influenza virus vaccine, unspecified formulation DIANA GERRY [facility] 06-14-2017 influenza, seasonal, injectable, preservative free P[facility] 1 [facility] 06-13-2017 influenza virus vaccine, unspecified formulation P[facility] 1 [facility] 06-10-2015 influenza, seasonal, injectable, preservative free Pmh 1 [facility] Payers Date Payer Category Payer Self-pay [id number] 2023 Medicare [id number] 2020 [employer] ( and others) [id number] 2006 [employer] ( and others) [id number] 2006 () [id number] 2003 Medicare [id number] 2003 Medicare [id number] 1961 Unknown [id number] 1961 Unknown [id number] 1961 Unknown [id number] 1961 Unknown [id number] 1961 Unknown [id number] 1961 Unknown [id number] 1961 Unknown [id number] 2.16.840.1.323704.3.579.2.593 1960 Unknown [id number] 2.16.840.1.914628.3.579.2.593 1960 Unknown [id number] 2.16.840.1.534107.3.579.2.196 1960 Unknown [id number] 2.16.840.1.271528.3.579.2.196 1960 Unknown [id number] 2.16.840.1.367401.3.579.2.196 1961 Unknown [id number] 2.16.840.1.251753.3.579.2.196 1961 Unknown [id number] 2.16.840.1.476214.3.579.2.196 1961 Unknown [id number] 2.16.840.1.056583.3.579.2. 1961 Unknown [id number] 2.16.840.1.094543.3.579.2. 1961 Unknown [id number] 2.16.840.1.400141.3.579.2. 1961 Unknown [id number] 2.16.840.1.102045.3.579.2. 1961 Unknown [id number] 2.16.840.1.457460.3.579.2. 1961 Unknown [id number] 2.16.840.1.580612.3.579.2. 1961 Unknown [id number] 2.16.840.1.831178.3.579.2.196 1961 Unknown [id number] 2.16.840.1.851725.3.579.2. 1961 Unknown [id number] 2.16.840.1.316896.3.579.2.196 1961 Unknown [id number] 2.16.840.1.316595.3.579.2. 1961 Unknown [id number] 2.16.840.1.970514.3.579.2. 1961 Unknown [id number] 2.16.840.1.593678.3.579.2.196 1961 Unknown [id number] 2.16.840.1.164452.3.579.2. 1961 Unknown [id number] 2.16.840.1.043045.3.579.2. 1961 Unknown [id number] 2.16.840.1.714332.3.579.2. 1961 Unknown [id number] 2.16.840.1.696960.3.579.2. 1961 Unknown [id number] 2.16.840.1.326503.3.579.2. 1961 Unknown [id number] 2.16.840.1.238497.3.579.2. 1961 Unknown [id number] 2.16.840.1.550939.3.579.2. 1961 Unknown [id number] 2.16.840.1.640115.3.579.2. 1961 Unknown [id number] 2.16.840.1.689987.3.579.2. 1961 Unknown [id number] 2.16.840.1.269024.3.579.2. 1961 Unknown [id number] 2.16.840.1.450056.3.579.2. 1961 Unknown [id number] 2.16.840.1.127271.3.579.2. 1961 Unknown [id number] 2.16.840.1.346992.3.579.2. 1961 Unknown [id number] 2.16.840.1.982851.3.579.2.1258 1961 Unknown [id number] 2.16.840.1.901542.3.579.2.1258 1961 Unknown [id number] 2.16.840.1.385960.3.579.2.1259 1961 Unknown [id number] 2.16.840.1.300536.3.579.2.1258 1961 Unknown [id number] 2.16.840.1.519227.3.579.2.1258 1961 Unknown [id number] 2.16.840.1.021998.3.579.2.128 1961 Unknown [id number] 2.16.840.1.253747.3.579.2.1285 1961 Unknown [id number] 2.16.840.1.527570.3.579.2.1285 1961 Unknown [id number] 2.16.840.1.217578.3.579.2.1285 1961 Unknown [id number] 2.16.840.1.048946.3.579.2.1285 1961 Unknown [id number] 2.16.840.1.629425.3.579.2. 1961 Unknown [id number] 2.16.840.1.817278.3.579.2. 1961 Unknown [id number] 2.16.840.1.699891.3.579.2. 1961 Unknown [id number] 2.16.840.1.978028.3.579.2. 1961 Unknown [id number] 2.16.840.1.747919.3.579.2. 1961 Unknown [id number] 2.16.840.1.400606.3.579.2. 1961 Unknown [id number] 2.16.840.1.247738.3.579.2. 1961 Unknown [id number] 2.16.840.1.616856.3.579.2.727 1961 Unknown [id number] 2.16.840.1.361308.3.579.2.727 1961 Unknown [id number] 2.16.840.1.347347.3.579.2.1285 1961 Unknown [id number] 2.16.840.1.651903.3.579.2.1285 1961 Unknown [id number] 2.16.840.1.137755.3.579.2.1285 1961 Unknown [id number] 2.16.840.1.739387.3.579.2.1285 1961 Unknown 1969 2.16.840.1.734204.3.579.2.1285 1961 Unknown [id number] 2.16.840.1.242799.3.579.2.1285 1961 Unknown [id number] 2.16.840.1.973066.3.579.2.1285 1961 Unknown [id number] 2.16.840.1.036914.3.579.2.1285 1961 Unknown [id number] 2.16.840.1.977721.3.579.2.1285 1961 Unknown [id number] 2.16.840.1.482436.3.579.2.1285 1961 Unknown [id number] 2.16.840.1.373988.3.579.2.1285 1961 Unknown [id number] 2.16.840.1.170699.3.579.2.1285 1961 Unknown [id number] 2.16.840.1.198296.3.579.2.1285 1961 Unknown [id number] 2.16.840.1.083198.3.579.2.12851 Unknown [id number] 2.16840.1.665403.3.579.2.1285 1961 Unknown [id number] 2.16840.1.671858.3.579.2.1285 1961 Unknown [id number] 2.16840.1.854823.3.579.2.1285 1961 Unknown [id number] 2.840.1.556733.3.579.2.1285 1961 Unknown [id number] 2.16840.1.640818.3.579.2.1285 1961 Unknown [id number] 2.840.1.700990.3.579.2.1285 1961 Unknown [id number] 2.840.1.528891.3.579.2.1285 1961 Unknown [id number] 2.840.1.023978.3.579.2.1285 1958 Medicare [id number] 1958 Unknown [id number] 2.840.1.277032.3.249.13 Medicare xxxxxxxxxx 2.840.1.252623.3.249.13 Unknown xxxxxxxxx 2.840.1.950762.3.249.13 Unknown [id number] 2.840.1.080693.3.579.2.531 Unknown [id number] 2.840.1.186325.3.579.2.531 Unknown [id number] 2.840.1.943381.3.579.2.531 Social History Date Type Detail Facility Start: 11-09-2017 End: 08-19-2022 Tobacco smoking status [facility] Never smoker [facility] Start: 1960 Sex Assigned At Not on file [employer] Work Phone: Tobacco smoking status Never [facility] Start: 12-07-2021 End: 05-06-2023 Sex Assigned At Female [facility] Start: 1960 Sex Assigned At Female [facility] Start: 08-19-2022 End: 03-29-2023 Tobacco use and exposure Smokeless tobacco non-user [facility] Start: 06-27-2023 End: 07-20-2024 Alcohol intake Current non-drinker of alcohol (finding) [facility] Start: 12-07-2021 End: 06-27-[address] [facility] Do you belong to any clubs or organizations such as buddhism groups, unions, fraternal or athletic groups, or school groups? No [facility] Are you now , , , , never or living with a partner? [facility] How often to you hav e a drink containing alcohol? Never [facility] Do you feel stress - tense, restless, nervous, or anxious, or unable to sleep at night because your mind is troubled all the time - these days [OSQ] Only a little [facility] Start: 05-26-2024 End: 06-26-2024 Alcoholic beverage intake Lifetime non-drinker (finding) [facility] Start: 06-11-2023 Education 13 [facility] Start: 06-11-2023 Alcohol Comment caffeine: 1-2 cups per day [facility] Start: 11-25-2022 Gender identity Identifies as female gender (finding) [facility] Start: 04-18-2015 Sex Female (finding) [facility] Medical Equipment Procedure Code Equipment Code Equipment Origin al Text Equipment Identifier Dates Liner 32mm C Fla t [place] Mpact - [id number] Start: 11-09-2017 Shell 48mm 2hl A cet Mpact - [id number] Start: 11-09-2017 Stem Sz2 Std Fem Prox Coat Ti Amistem-H - [id number] Start: 11-09-2017 Head 32mm +4 Fem Biolox Delta Mectacer - [id number] Start: 11-09-2017 Goals Date Patient Goal Desired Activity /State Personal health goal Comment on above: Formatting of this n ote might be different from the original. Evaluation of progress towards goal: transfer to [facility] for med adjustments Functional Status Date Assessment Result Facility 08-25-2022 Functional Status N/A [facility] Clinical Notes 08-25-2022 to 08-04-2024 Hossein Ingram, [facility] - 08/04/2024 8:15 AM ESTNava Sanches - 08/02/2024 12:50 PM ESTTelephone Encounter - Lana Arceo, [facility] - 07/31/2024 3:04 AM Olegario De Santiago, [facility] - 07/21/2024 11:00 AM EST Note Date & Type Note Facility 08-04-2024 History of Present illness Narrative 15 minute qond-yl-aasx follow-up anticoagulation appointment. INR performed in office per protocol. INR 2.2 (goal range: 2.0-3.0). Patient reports: Taking warfarin dosing as documented. Missed or extra doses of warfarin: No Changes to medications: No Changes to lifestyle (diet / alcohol / smoking / activity): No Recent emergency department visit / hospitalization / health changes / new contraindication to current anticoagulant: No Signs/symptoms of bruising/bleeding or clotting or any intolerable adverse events: No Upcoming procedures: No Anticoagulant prescription needed: No Seen referring provider in the last year Duration of therapy reviewed Assessment: INR is back to therapeutic after anl increase weekly dose 8% last time. No change today. See pt in 4 weeks Plan: Patient instructed to continue weekly dose of 2.5 mg Mon and 5 mg AOD. Check INR in 4 week(s). Patient verbalizes understanding of anticoagulant dosing instructions and information discussed. Dosing regimen, counseling, and follow-up appointment were provided to the patient. Patient reminded to call with questions or any medication changes. Patient instructed to seek medical attention if any major bleeding/bleeding that persists or worsens. Hossein Ingram RP 08/04/24 0821 [facility] History of Present illness Narrative Good Afternoon, Patient states BP has improved since starting the valsartan 80 mg at noon. Reports 2 high readings of 153/78 and is now averaging 129/71-131/78. Patient states morning blood pressure is averaging 126/73. She states she will need a refill on valsartan. She confirms she is taking 40 mg in the morning and evening and 80 mg at noon. She asks for this to be sent to [facility] for a 90 day supply. I did not change the order that was pended in case you send in a 40 mg and 80 mg. She also reports Vascepa needs a PA. Thank you, [facility] Primary [facility] Chronic Care Nurse Leaf Sorter [phone] documented in this encounter [facility] 07-31-2024 Miscellaneous Notes refill documented in this encounter [facility] 07-31-2024 Telephone encounter Note refill [facility] 07-21-2024 History of Present illness Narrative 15 minute vmcu-da-egpf follow-up anticoagulation appointment. INR performed in office per protocol. INR 1.7 (goal range: 2.0-3.0). Patient reports: Taking warfarin dosing as documented. Missed or extra doses of warfarin: No Changes to medications: YES Stopped B12 and Vitamin C Reducing Reglan dosing Changes to lifestyle (diet / alcohol / smoking / activity): YES Working in yard recently Recent emergency department visit / hospitalization / health changes / new contraindication to current anticoagulant: No Signs/symptoms of bruising/bleeding or clotting or any intolerable adverse events: No Upcoming procedures: No Anticoagulant prescription needed: No Seen referring provider in the last year Duration of therapy reviewed Assessment: INR remains subtherapeutic. We will increase weekly dose 8% Plan: Patient instructed to increase to warfarin 7.5 mg 07/21, then increase weekly dose to 2.5 mg Mon and 5 mg AOD. Check INR in 2 week(s). Patient verbalizes understanding of anticoagulant dosing instructions and information discussed. Dosing regimen, counseling, and follow-up appointment were provided to the patient. Patient reminded to call with questions or any medication changes. Patient instructed to seek medical attention if any major bleeding/bleeding that persists or worsens. Luz Marina De Santiago RPH 07/21/24 1058 documented in this encounter [facility] 07-20-2024 History of Present illness Narrative IM PROGRESS NOTE Patient - Noemi Brand Age - 64 y.o. - 1960 ASSESSMENT & PLAN 1. Mild persistent asthma without complication (Primary) - ACT score is low today - it is unclear whether the change in her asthma control is due to progression of disease, addition of lipophilic beta-jeff, or both -will repeat PFT to assess for measurable changes - may need to re-evaluate her current inhaler regimen - Pulmonary function test Complete PFT w/ BD (Spirometry (Flow Volume Loop) pre/post short acting bronchodilator w/ DLCO (diffusion study) and Lung Volume); Future 2. Essential hypertension - home BP readings were reviewed with the patient - morning values are generally good, evening values generally run a bit high -currently taking the valsartan 80 mg every morning - we will have her continue valsartan, but take 40 mg in a.m. and 40 mg in p.m. to spread dosing out more evenly - she will continue to monitor and report readings to me. - valsartan (DIOVAN) 80 mg tablet; Take 0.5 tablets (40 mg total) by mouth in the morning and 0.5 tablets (40 mg total) before bedtime. 3. Gastroesophageal reflux disease, unspecified whether esophagitis present - has been difficult to control symptoms in the past - currently taking famotidine 40 mg daily along with pantoprazole 40 mg daily - in the past saw GI, who ordered metoclopramide 10 mg 4 times daily. Because of concerns about side effects, we have been trying to wean this down to lowest tolerable dose. - will decrease metoclopramide dosing once again to 10 mg b.I.d. -continue to monitor symptoms - metoclopramide (REGLAN) 10 mg tablet; Take 1 tablet (10 mg total) by mouth in the morning and 1 tablet (10 mg total) in the evening. Take before meals. 4. Lupus anticoagulant disorder (CMS-HCC) -currently on warfarin adjusted dose per [facility] - has multiple medications which could be interfering with her serum level - will continue to evaluate and decrease her medical regimen as able 5. B12 deficiency - repeat B12 level. Perhaps can stop this - CBC auto differential; Future - Vitamin B12; Future 6. Mixed hyperlipidemia - currently on atorvastatin 80 mg daily -repeat lipid panel to assess efficacy of current treatment - Lipid profile; Future - Comprehensive metabolic panel; Future 7. Encounter for immunization - influenza vaccination given today. Encouraged a COVID vaccination at local pharmacy in the next week - Influenza, Trivalent, Adjuvanted - Immunization, In Clinic,; Inject 0.5 mL into the appropriate muscle once for 1 dose. flu vac 65up (PF) 45 MCG(15 MCGX3)/0.5 mL Sign this order to satisfy the OSBOP Positive ID requirements for immunization orders. Subjective ASTHMA This is a follow up of a pre-existing problem. Asthma Control Test: 1. In the past 4 week, how much of the time did your asthma keep you from getting as much done at work, school or home? A little of the time (4) 2. During the past 4 weeks, how often have you had shortness of breath? A little of the time (4) 3. During the past 4 weeks, how often did your asthma symptoms(wheezing, coughing, shortness of breath, chest tightness or pain) wake you up at night or earlier than usual in the morning? A little of the time (4) 4. During the past 4 weeks, how often have you used your rescue inhaler or nebulizer medication? All the time (1) 5. How would you rate your asthma control during the past 4 weeks? Some of the time (3) TOTAL SCORE = 16 (less than 19 indicates asthma is not controlled) Most recent Spirometry shows: Not available. Last PFT/spirometry nearly 10 years ago. Symptoms occur: in the evening when she is resting. This generally occurs after she has been more active during the day. Has been using her rescue inhaler more frequently. Does report she had been started on Inderal for her tremors in the past several months. Exacerbations requiring steroids: No Using long acting inhaler(s) regularly? Yes Checking peak flow readings regularly. No A review of systems was negative except for the following: General: weight gain Hematological: Her INRs have been running below desired range for the past several checks. She does report she had started vitamin-C at the recommendation of a Tele-nurse. She did have propanolol added to her regimen by Neurology. Gastrointestinal: Asymptomatic. Has been tolerating decreased dose of metoclopramide without incident. Does need a refill Neurological: tremors and recently started on propanolol for control. She feels it has helped tremendously.. Exam BP 130/82 (BP Site: Right Arm, BP Postition: Sitting, BP CUFF SIZE: L (13-17 inches)) Pulse 69 Temp 37 C (98.6 F) (Oral) Wt 96.8 kg (213 lb 6.4 oz) SpO2 93% BMI 34.44 kg/m Physical Exam Vitals reviewed. Constitutional: General: She is not in acute distress. Appearance: She is obese. She is not toxic-appearing. HENT: Head: Normocephalic. Right Ear: Ear canal and external ear normal. Left Ear: Ear canal and external ear normal. Nose: Nose normal. Comments: Over near ease with crusting and dry mucosa. Scant bleeding noted on the left. Mouth/Throat: Mouth: Mucous membranes are moist. Eyes: General: No scleral icterus. Conjunctiva/sclera: Conjunctivae normal. Neck: Vascular: No carotid bruit. Cardiovascular: Rate and Rhythm: Normal rate and regular rhythm. Pulses: Normal pulses. Heart sounds: No murmur heard. No gallop. Pulmonary: Effort: Pulmonary effort is normal. Breath [...] needed for wheezing., Disp: 18 g, Rfl: 3 aspirin 81 mg chewable tablet, Chew 1 tablet (81 mg total) and swallow., Disp: , Rfl: atorvastatin (LIPITOR) 80 mg tablet, TAKE 1 TABLET IN THE MORNING, Disp: 90 tablet, Rfl: 3 baclofen (LIORESAL) 10 mg tablet, TAKE 1 TABLET FOUR TIMES A DAY, Disp: 360 tablet, Rfl: 0 BIOTIN ORAL, Take 1 tablet by mouth in the morning and at bedtime., Disp: , Rfl: buPROPion XL (WELLBUTRIN XL) 300 mg 24 [...] 1 diclofenac sodium (VOLTAREN) 1 % gel, APPLY 2 GM TOPICALLY IN THE MORNING, AT NOON, IN THE EVENING, AND BEFORE BEDTIME, Disp: 300 g, Rfl: 1 famotidine (PEPCID) 40 mg tablet, TAKE 1 TABLET IN THE MORNING, Disp: 90 tablet, Rfl: 1 ferrous sulfate (FeroSuL) 325 (65 FE) mg tablet, Take 1 tablet (325 mg total) by mouth in the morning and 1 tablet (325 mg total) in the evening. Take with meals., Disp: 180 tablet, Rfl: 1 fluticasone propion-salmeteroL (ADVAIR HFA) 230-21 mcg/actuation inhaler, USE 2 INHALATIONS TWICE A DAY, Disp: 36 g, Rfl: 1 folic acid (FOLVITE) 1 mg tablet, take 1 tablet daily, Disp: 90 tablet, Rfl: 0 gabapentin (NEURONTIN) 300 mg capsule, 1 capsule (300 mg total)., Disp: , Rfl: galcanezumab-gnlm (EMGALITY PEN) 120 mg/mL pen injector, Emgality Pen 120 mg/mL subcutaneous pen injector, Disp: , Rfl: levothyroxine (SYNTHROID, LEVOTHROID) 50 MCG tablet, take 1 tablet daily, Disp: 90 tablet, Rfl: 0 montelukast (SINGULAIR) 10 mg tablet, TAKE 1 TABLET DAILY, Disp: 90 tablet, Rfl: 3 naltrexone (REVIA) 50 mg tablet, Take 1.5 mg by mouth in the morning., Disp: , Rfl: nystatin (NYSTOP) powder, APPLY 1 APPLICATION TOPICALLY TWICE A DAY NEEDED (RASH OR ITCHING), Disp: 60 g, Rfl: 2 omega 1-qki-esb-fish oil (Fish OiL) 100-160-1,000 mg capsule, Take 1,200 mg by mouth., Disp: , Rfl: pantoprazole (PROTONIX) 40 mg EC tablet, TAKE 1 TABLET IN THE MORNING AND AT BEDTIME, Disp: 180 tablet, Rfl: 3 propranoloL (INDERAL) 60 mg tablet, Take 1 tablet (60 mg total) by mouth in the morning., Disp: , Rfl: QUEtiapine (SEROquel) 400 mg tablet, Take 1 tablet (400 mg total) by mouth nightly., Disp: , Rfl: warfarin (COUMADIN) 5 mg tablet, TAKE 1 TABLET IN THE EVENING, Disp: 90 tablet, Rfl: 3 zolpidem (AMBIEN) 10 mg tablet, , Disp: , Rfl: Immunization, In Clinic,, Inject 0.5 mL into the appropriate muscle once for 1 dose. flu vac 65up (PF) 45 MCG(15 MCGX3)/0.5 mL Sign this order to satisfy the OSBOP Positive ID requirements for immunization orders., Disp: , Rfl: metoclopramide (REGLAN) 10 mg tablet, Take 1 tablet (10 mg total) by mouth in the morning and 1 tablet (10 mg total) in the evening. Take before meals., Disp: , Rfl: valsartan (DIOVAN) 80 mg tablet, Take 0.5 tablets (40 mg total) by mouth in the morning and 0.5 tablets (40 mg total) before bedtime., Disp: , Rfl: Lab Results Follow Up Anticoagulation on 07/14/2024 Component Date Value Ref Range Status INR 07/14/2024 1.5 (A) 0.8 - 1.2 Final Other Testing No results found. Alexander Chen DO., [facility]: [phone] documented in this encounter [facility] 07-14-2024 History of Present illness Narrative 15 minute dzsu-ei-vbuf follow-up anticoagulation appointment. INR performed in office per protocol. INR 1.5 (goal range: 2.0-3.0). Patient reports: Taking warfarin dosing as documented. Missed or extra doses of warfarin: No Changes to medications: No Changes to lifestyle (diet / alcohol / smoking / activity): No Recent emergency department visit / hospitalization / health changes / new contraindication to current anticoagulant: No Signs/symptoms of bruising/bleeding or clotting or any intolerable adverse events: No Upcoming procedures: No Anticoagulant prescription needed: No Seen referring provider in the last year Duration of therapy reviewed Assessment: INR decreased and is sub-therapeutic today. Pt feels no missed doses, and no identified reason for the decrease today. Boosting 1x today then checking INR in 1 week to assess if weekly dose needs increased or if x1 boost is sufficient Plan: Patient instructed to increase dose today 07/14 to 7.5mg, then continue warfarin 2.5 mg Mon/Thurs and 5 mg AOD. Check INR in 1 week(s). Patient verbalizes understanding of anticoagulant dosing instructions and information discussed. Dosing regimen, counseling, and follow-up appointment were provided to the patient. Patient reminded to call with questions or any medication changes. Patient instructed to seek medical attention if any major bleeding/bleeding that persists or worsens. Hossein Ingram RPH 07/14/24 0904 documented in this encounter [facility] 06-26-2024 History of Present illness Narrative Reason for Appointment: Patient ID: Noemi Brand is a 64 y.o. female who presents for Well Women Visit Patient presents today for Annual Exam. MEDICATIONS Current Outpatient Medications Medication Instructions Advair HFA 230-21 MCG/ACT inhaler albuterol (2.5 MG/3ML) 0.083% nebulizer solution Every 8 hours albuterol HFA 90 mcg/act inhaler aspirin 81 mg baclofen (Lioresal) 10 MG tablet Every 6 hours biotin 1000 MCG tablet See Instructions, Instructions: 2tab(s) Oral Daily and 1 tab at night, 0 Refill(s) buPROPion XL (Wellbutrin XL) 300 MG 24 hr tablet iqwblxpvzj-evjdmfyoozrcq-kkgqbzv e (Esgic) 50-325-40 MG tablet 1 tablet, Oral, Every 6 hours PRN cyanocobalamin (Vitamin B-12) 1000 MCG tablet 1 tablet, Every morning cycloSPORINE (Restasis) 0.05 % ophthalmic emulsion Every 12 hours diclofenac sodium 1 % gel Emgality 120 mg, Subcutaneous, Every 30 days famotidine (PEPCID) 40 mg, Every morning FeroSul 325 (65 Fe) MG tablet take 1 tablet by mouth every morning and 1 tablet at bedtime folic acid (Folvite) 1 MG tablet Every 24 hours gabapentin (Neurontin) 300 MG capsule TAKE 1 CAPSULE IN THE MORNING AND 1 CAPSULE AT NOON AND 1 CAPSULE IN THE EVENING AND 1 CAPSULE BEFORE BEDTIME linaCLOtide (LINZESS PO) Oral Lipitor 80 MG tablet Every 24 hours loratadine (Claritin) 10 MG tablet Every 24 hours metoclopramide (Reglan) 10 MG tablet Every 8 hours naltrexone (Depade) 50 MG tablet Oral pantoprazole (ProtoNix) 40 MG EC tablet propranolol LA (INDERAL LA) 60 mg, Oral, Daily, Do not crush, chew, or split. sennosides 17.2 mg SEROquel 400 MG tablet 1 tablet Orally at bedtime for 90 days Singulair 10 MG tablet Every 24 hours Synthroid 50 MCG tablet Every 24 hours valsartan (Diovan) 80 MG tablet Every 24 hours warfarin (Coumadin) 5 MG tablet Every 24 hours zolpidem (Ambien) 10 MG tablet 1 tablet Orally at bedtime for 30 days ALLERGIES Allergies Allergen Reactions [place] Hives Other Reaction(s): Unknown PT. SAYS SHE WENT INTO A COMA COMA Sertraline Hives Other Reaction(s): Unknown Chest Pain CHEST PAINS Chest pain Erythromycin Hives Other Reaction(s): Abnormal Behavior, GI Upset UPSET STOMACH SEVERE STOMACH CRAMPING Penicillins Hives Prednisone Swelling Other Reaction(s): Unknown ORAL ONLY--SWELLING WITH LONG TIME USE Per care everywhere, causes swelling ORAL ONLY--SWELLING WITH LONG TIME USE Other Reaction(s): Unknown Sevelamer Other Reaction(s): Anaphylaxis Vortioxetine Nausea And Vomiting Other Reaction(s): GI Intolerance, Nausea And Vomiting Other reaction(s): GI Intolerance Other Reaction(s): GI Intolerance Erythromycin Base Other Reaction(s): Unknown Lubiprostone Other Reaction(s): VOMITING Lurasidone Other Reaction(s): Falls Meloxicam Other Reaction(s): blood in urine Milnacipran Hives Other Reaction(s): Unknown Other Reaction(s): Mental Status Change Other reaction(s): Unknown Milnacipran Hcl Other Reaction(s): Unknown PROBLEMS Active Ambulatory Problems Diagnosis Date Noted Ataxia 03/29/2023 Bipolar 1 disorder ([facility]) 03/29/2023 Bipolar II disorder ([facility]) 03/29/2023 Blood coagulation disorder ([facility]) 03/29/2023 Migraine without aura and without status migrainosus, not intractable ([facility]) 03/29/2023 Cognitive impairment 03/29/2023 Inattention 03/29/2023 Degeneration of lumbar intervertebral disc 03/29/2023 Disc displacement, lumbar 03/29/2023 Gastro-esophageal reflux disease without esophagitis 03/29/2023 Generalized anxiety disorder ([facility]) 03/29/2023 Hallux valgus (acquired), left foot 03/29/2023 Hyperlipidemia ([facility]) 03/29/2023 Hypothyroidism ([facility]) 03/29/2023 Lumbar radiculopathy 03/29/2023 Lupus anticoagulant disorder ([facility]) 03/29/2023 Occipital neuralgia 03/29/2023 Other chronic pain 03/29/2023 Panic disorder with agoraphobia ([facility]) 03/29/2023 Primary osteoarthritis of left foot 03/29/2023 Refractory migraine with aura ([facility]) 03/29/2023 Sacroiliitis, not elsewhere classified ([facility]) 03/29/2023 Sensorineural hearing loss, bilateral 03/29/2023 Spondylosis of lumbar region without myelopathy or radiculopathy 03/29/2023 Bilateral tinnitus 03/29/2023 Tinnitus 03/29/2023 Acquired blindness of one eye 01/15/2016 Acute metabolic encephalopathy 09/27/2016 Altered mental status 12/07/2021 Anemia 07/26/2023 Anticoagulation management encounter 09/05/2013 Asthma ([facility]) 07/26/2023 Back pain 07/26/2023 CAD (coronary artery disease) ([facility]) 09/27/2016 Cataract 07/26/2023 Cerebrovascular accident (CVA) ([facility]) 09/13/1994 TIA (transient ischemic attack) 07/26/2023 Chronic antral gastritis 06/02/2017 Chronic rhinitis 11/21/2018 Deep vein thrombosis (DVT) ([facility]) 05/18/2019 Delirium 10/29/2021 Depression ([facility]) 07/26/2023 Displacement of lumbar intervertebral disc without myelopathy 03/25/2018 Fibromyalgia, primary 05/20/2022 Generalized osteoarthritis 05/20/2022 Glaucoma ([facility]) 11/02/2019 H/O: CVA (cerebrovascular accident) 09/27/2016 Hematoma 10/06/2021 History of 2019 novel coronavirus disease (COVID-19) 10/29/2021 History of blood transfusion 09/13/2012 History of cardiac cath 09/13/1998 History of deep venous thrombosis 09/05/2013 Hypertension ([facility]) 05/20/2022 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 ([facility]) 05/20/2022 Intractable chronic migraine without aura and without status migrainosus ([facility]) 11/25/2015 Iron deficiency anemia 04/12/2014 USP (current) use of 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 11/24/2021 Obesity (BMI 30.0-34.9) 02/15/2019 Nephrolithiasis 05/20/2022 Misuse of prescription only drugs 07/26/2023 Mild persistent asthma ([facility]) 06/16/2016 Migraine ([facility]) 05/18/2019 Lumbosacral spondylosis without myelopathy 03/25/2018 Ischemic optic neuropathy 08/30/2013 Optic neuropathy 05/10/2013 Other optic atrophy, right eye 01/15/2016 Polypharmacy 09/27/2016 Presence of vena cava filter 05/20/2022 Osteoarthritis of left hip 11/09/2017 Degenerative joint disease (DJD) of hip 11/09/2017 Primary osteoarthritis of right hip 08/30/2018 Systemic lupus erythematosus ([facility]) 05/29/2013 Thoracic spinal stenosis 03/24/2019 Headache 11/26/2023 Chronic deep vein thrombosis (DVT) of proximal vein of lower extremity ([facility]) 05/09/2024 Chronic kidney disease, stage 3 unspecified (HCC) ([facility]) 10/23/2021 Constipation, unspecified 10/23/2021 Contusion of left thigh 10/28/2021 COVID-19 10/23/2021 Difficulty in walking, not elsewhere classified 10/24/2021 History of falling 10/23/2021 Insomnia, unspecified 10/23/2021 Muscle weakness (generalized) 10/24/2021 Other abnormalities of gait and mobility 10/28/2021 Other fatigue 10/24/2021 Other problems related to life management difficulty 10/24/2021 Presence of left artificial hip joint 10/23/2021 Vitamin D deficiency, unspecified 10/23/2021 Resolved Ambulatory Problems Diagnosis Date Noted No Resolved Ambulatory Problems Past Medical History: Diagnosis Date Antiphospholipid syndrome ([facility]) 07/28/2013 Blood clot in vein Broken ribs Cataract of left eye, unspecified cataract type 06/18/2016 Chronic gastritis Connective tissue disease ([facility]) Demyelinating disease ([facility]) 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[facility]) Fibromyalgia FO (foramen ovale) H/O exercise stress test Cristi's thyroiditis ([facility]) 09/18/2011 High cholesterol ([facility]) History of History of cystoscopy History of diagnostic tests History of medical problems History of medical problems History of medical problems 11/29/2012 History of medical problems History of medical treatment History of medical treatment History of medical treatment History of medical treatment History of medical treatment 07/04/2009 History of right heart catheterization (RHC) History of total left hip replacement 11/09/2017 Medication reaction 01/19/2011 Medication reaction Memory loss 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/23/2013 Osteoarthritis Paresthesia Peripheral vision loss Pseudotumor cerebri Stroke (cerebrum) (CMS/HCC) Stroke ([facility]) Thoracic back pain Undifferentiated connective tissue disease ([facility]) HISTORY PAST MEDICAL HISTORY SOCIAL HISTORY Past Medical History: Diagnosis Date Anemia Antiphospholipid syndrome ([facility]) 07/28/2013 Blood clot in vein R arm and L leg Broken ribs Cataract of left eye, unspecified cataract type 06/18/2016 Chronic gastritis Connective tissue disease (CMS/HCC) Demyelinating disease (CMS/HCC) 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CMS/HCC) Depression (CMS/HCC) Fibromyalgia FO (foramen ovale) 01/29/2012 Repeated 03/30/2013 H/O exercise stress test 03/20/2013 (Normal) Cristi's thyroiditis (CMS/HCC) 09/18/2011 High cholesterol (CMS/HCC) History of History of cystoscopy Cystoscope History of diagnostic tests Ecogram 03/30/2013 (Normal) History of medical problems Hernia History of medical problems L Knee Surgery followed by blood clot History of medical problems 11/29/2012 Nerve Block in neck History of medical problems Acid Reflex History of medical treatment Lower Back Pain Surgery History of medical treatment Kidney Stone Removed History of medical treatment Ablation of the Uterus History of medical treatment Injections in the back starting 02/27/2009 til present / Injections in neck starting 06/10/2009 til present History of medical treatment 07/04/2009 Blood Clot removal History of right heart catheterization (RHC) Heart Cath R Leg History of total left hip replacement 11/09/2017 Lumbar radiculopathy Lupus anticoagulant disorder (CMS/HCC) Medication reaction 01/19/2011 Medication reaction [place] (weaned off 10/21/2016 - 10/28/2016) Memory loss Migraine (CMS/HCC) / RO TIA, 09/26/2016 Occipital neuralgia 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/23/2013 Osteoarthritis Paresthesia Peripheral vision loss Presence of vena cava filter 01/02/2015 Pseudotumor cerebri Stroke (cerebrum) (CMS/HCC) Stroke (CMS/HCC) Thoracic back pain TIA (transient ischemic attack) 10/03/2011 ; 02/01/2014 Undifferentiated connective tissue disease (CMS/HCC) Social History Tobacco Use Smoking status: Never Smokeless tobacco: Never Substance Use Topics Alcohol use: Never Comment: caffeine: 1-2 cups per day Drug use: Never FAMILY HISTORY Family History Problem Relation Name Age of Onset Diabetes Mother Heart disease Mother Hypertension Mother Heart disease Father Hypertension Sibling Diabetes Sibling Prostate cancer Sibling Thyroid cancer Sibling Lung cancer Sibling SURGICAL HISTORY Past Surgical History: Procedure Laterality Date ANTERIOR CERVICAL DISCECTOMY W/ FUSION 07/04/2009 BACK SURGERY x3 CARDIAC CATHETERIZATION SECTION, LOW TRANSVERSE HERNIA REPAIR JOINT REPLACEMENT Right hip replacement KNEE SURGERY Knee arthroscopy left and right NASAL ENDOSCOPY 02/06/2020 with cautery and biopsy OTHER SURGICAL HISTORY Blood clot in eye, impaired vision REPLACEMENT TOTAL HIP LATERAL POSITION TONSILLECTOMY REVIEW OF SYSTEMS Review of Systems: Review of Systems All other systems reviewed and are negative. OBJECTIVE Objective: Physical Exam Constitutional: Appearance: Normal appearance. She is well-developed. Genitourinary: Vulva normal. Breasts: Breasts are soft. Right: Normal. Left: Normal. Cardiovascular: Rate and Rhythm: Normal rate and regular rhythm. Pulmonary: Effort: Pulmonary effort is normal. Breath sounds: Normal breath sounds. Abdominal: General: Bowel sounds are normal. There is no distension. Palpations: Abdomen is soft. Tenderness: There is no abdominal tenderness. There is no guarding or rebound. Musculoskeletal: General: No swelling. Normal range of motion. Right lower leg: No edema. Left lower leg: No edema. Neurological: Mental Status: She is alert and oriented to person, place, and time. Skin: General: Skin is warm and dry. Psychiatric: Mood and Affect: Mood normal. Behavior: Behavior normal. Vitals and nursing note reviewed. Exam conducted with a control system manager present. Vitals: Estimated body mass index is 34.95 kg/m as calculated from the following: Height as of 03/29/23: 5' 5 . Weight as of this encounter: 210 lb. BP: 126/84 No LMP recorded. Patient is postmenopausal. ASSESSMENT & PLAN ICD-10-CM 1. Well woman exam with routine gynecological exam Z01.419 THIN PREP TIS PAP AND HR HPV DNA 2. Postmenopausal state Z78.0 3. Breast cancer screening by mammogram Z12.31 Bilateral screening mammogram Bilateral screening mammogram Annual: Patient presents today for an annual exam. Patient states she is doing well and has no complaints. Pap was obtained without difficulty and patient given mammogram order to have scheduled/obtained. Orders Placed This Encounter Procedures Bilateral screening mammogram Follow Up: Patient is to return in one year for annual unless needed otherwise. Documented by Jamia Aburto LPN on behalf of: Kobi Latham DO documented in this encounter [facility] 06-21-2024 Miscellaneous Notes I called pt to get her scheduled for a Colonoscopy. Pt states she will call us. I gave her the days that Does them. She verbally states she understands documented in this encounter [facility] 06-21-2024 Telephone encounter Note I called pt to get her scheduled for a Colonoscopy. Pt states she will call us. I gave her the days that Does them. She verbally states she understands [facility] 06-19-2024 Note [id number] [facility] 06-16-2024 Note [facility] Clinical Discharge Summary PERSON INFORMATION Name NOEMI BRAND Age 64 Years 1960 Sex FEMALE Language Austrian PCP Provider, None Marital Status Med Service Pain Management Surgery Acct# Arrival 06/16/2024 06:50:17 Visit Reason LUMBAR PAIN Acuity LOS 009 15:52 Address: [address] [place] [address] Comment: PROVIDER INFORMATION VITALS INFORMATION Vital Sign [...] (Compund medication wi (more content not included)... [facility] 06-15-2024 Telephone encounter Note I am resending Fioricet correct dose as the reason likely denied is the 300 mg of tylenol instead of 325 mg and that would have been my error. I called patient and let her know. [facility] 06-15-2024 Miscellaneous Notes I am resending [...] if something different can be sent to [facility] or [facility]. documented in this encounter [facility] 06-15-2024 Telephone encounter Note Patient left message stating that she faxed a letter she received on Wednesday that gave alternative prescriptions. Checking on status if something different can be sent to [facility] or [facility]. [facility] 06-15-2024 Note [id number] The history of present illness has been reviewed. There are no changes document. [Electronically Signed on: 06/16/2024 07:13 EDT] LINA SCHWAB MD [Verified on: 06/16/2024 07:13 EDT] LINA SCHWAB MD [Transcribed on: 06/15/2024 14:04 EDT] [facility] 06-15-2024 History of Present illness Narrative 15 minute uqir-jc-biir follow-up anticoagulation appointment. INR performed in office [...] RPH 06/15/24 0937 documented in this encounter [facility] 06-14-2024 Note Called and spoke wit h patient to remind patient to have INR level checked prior to procedure on Wednesday. Patient reports that she is scheduled to have it checked tomorrow. Moved patient arrival time to 0700. [Electronically Signed on: 06/14/2024 10:34 EDT] Anita Valle RN [Verified on: 06/14/2024 10:34 EDT] Anita Valle RN [facility] 06-13-2024 Miscellaneous Notes Pt needs a refill on Ferrous Sulfate. Pharmacy is [facility]. documented in this encounter [facility] 06-13-2024 Telephone encounter Note Pt needs a refill on Ferrous Sulfate. Pharmacy is [facility]. [facility] 05-16-2024 Note [id number] 05-16-2024 Note [id number]#1.00[facility] 05-12-2024 Note [facility] Clinical Discharge Summary PERSON INFORMATION Name NOEMI BRAND Age 63 Years 1960 Sex FEMALE Language Austrian PCP Provider, None Marital Status Unknown Med Service Pain Management Surgery Acct# Arrival 05/12/2024 10:58:18 Visit Reason LUMBAR NEURITIS Acuity LOS 004 01:06 Address: [address] [place] [id number] Comment: PROVIDER INFORMATION VITALS INFORMATION Vital Sign [...] constipation. Template Non-Fo (more content not included)... [facility] 05-11-2024 Note [id number] The history of present illness has been reviewed. There are no changes document. [Electronically Signed on: 05/12/2024 11:16 EDT] LINA SCHWAB MD [Verified on: 05/12/2024 11:16 EDT] LINA SCHWAB MD [Transcribed on: 05/11/2024 12:55 EDT] [facility] 04-17-2024 Note [id number] [facility] 04-14-2024 Note [facility] Clinical Discharge Summary PERSON INFORMATION Name NOEMI BRAND Age 63 Years 1960 Sex FEMALE Language Austrian PCP Provider, None Marital Status Unknown Med Service Pain Management Surgery Acct# Arrival 04/14/2024 08:45:32 Visit Reason SACROILIITIS Acuity LOS 014 23:52 Address: [address] [place] [id number] Comment: PROVIDER INFORMATION VITALS INFORMATION Vital Sign [...] constipation. Template Non-Formul (more content not included)... [facility] 04-13-2024 Note [id number] The history of present illness has been reviewed. There are no changes document. [Electronically Signed on: 04/14/2024 09:24 EDT] LINA SCHWAB MD [Verified on: 04/14/2024 09:24 EDT] LINA SCHWAB MD [Transcribed on: 04/13/2024 14:42 EDT] [facility] 04-12-2024 Note Called patient to re mind to have INR level checked prior to procedure on Wednesday. Patient states she is scheduled to have it checked tomorrow. [Electronically Signed on: 04/12/2024 10:08 EDT] Anita Valle RN [Verified on: 04/12/2024 10:08 EDT] Anita Valle RN [facility] 02-08-2024 Note [id number] [facility] 02-04-2024 Note [facility] Clinical Discharge Summary PERSON INFORMATION Name NOEMI BRAND Age 63 Years 1960 Sex FEMALE Language Austrian PCP Provider, None Marital Status Unknown Med Service Pain Management Surgery Acct# Arrival 02/04/2024 10:38:56 Visit Reason THORACIC PAIN Acuity LOS 004 01:24 Address: [address] [place] [address] Comment: PROVIDER INFORMATION VITALS INFORMATION Vital Sign [...] tablet, extended releas (more content not included)... [facility] 02-03-2024 Note [id number]#[email or web address] The history of present illness has been reviewed. There are no changes document. [Electronically Signed on: 02/04/2024 12:29 EDT] LINA SCHWAB MD [Verified on: 02/04/2024 12:29 EDT] LINA SCHWAB MD [Transcribed on: 02/03/2024 15:14 EDT] [facility] 12-27-2023 Note [id number] [facility] 12-24-2023 Note [facility] Clinical Discharge Summary PERSON INFORMATION Name NOEMI BRAND Age 63 Years 1960 Sex FEMALE Language Austrian PCP Provider, None Marital Status Unknown Med Service Pain Management Surgery Acct# Arrival 12/24/2023 07:05:36 Visit Reason THORACIC PAIN Acuity LOS 006 22:59 Address: [address] [place] [id number] Comment: PROVIDER INFORMATION VITALS INFORMATION Vital Sign [...] mouth) At bedtime. (more content not included)... [facility] 12-23-2023 Note [id number] The history of present illness has been reviewed. There are no changes document. [Electronically Signed on: 12/24/2023 07:17 EDT] LINA SCHWAB MD [Verified on: 12/24/2023 07:17 EDT] LINA SCHWAB MD [Transcribed on: 12/23/2023 14:39 EDT] [facility] 12-17-2023 History of Present illness Narrative 15 minute okla-ai-ynca follow-up anticoagulation appointment. INR performed in office [...] RPH 12/17/23 0928 documented in this encounter [facility] 12-09-2023 History of Present illness Narrative IM [...] following reasons: The patient has a prior ND or stroke diagnosis Patient reports following dosing [...] itching)., Disp: 30 g, Rfl: 1 omega 5-ana-prb-fish oil (Fish OiL) 100-160-1,000 mg capsule, Take [...] Testing No results found. Alexander Chen DO., [facility] Office: [phone] [facility] Note [id number] [facility] 11-19-2023 Note [facility] Clinical Discharge Summary PERSON INFORMATION Name NOEMI BRAND Age 63 Years 1960 Sex FEMALE Language Austrian PCP Provider, None Marital Status Unknown Med Service Pain Management Surgery Acct# Arrival 11/19/2023 11:56:40 Visit Reason THORACIC PAIN Acuity LOS 002 02:30 Address: [address] [place] [id number] Comment: PROVIDER INFORMATION VITALS INFORMATION Vital Sign [...] day (at bedti (more content not included)... [facility] 11-19-2023 History of Present illness Narrative 15 minute dwvc-kh-rmnp follow-up anticoagulation appointment. INR performed in office [...] RPH 11/19/23 0915 documented in this encounter [facility] 11-18-2023 Note [id number] The history of present illness has been reviewed. There are no changes document. [Electronically Signed on: 11/19/2023 12:43 EST] LINA SCHWAB MD [Verified on: 11/19/2023 12:43 EST] LINA SCHWAB MD [Transcribed on: 11/18/2023 13:01 EST] [facility] 11-05-2023 History of Present illness Narrative 15 minute uurc-zv-xjvq follow-up anticoagulation appointment. INR performed in office [...] RPH 11/05/23 0938 documented in this encounter [facility] [employer] 10-06-2023 Note PROCEDURE: Left T10- 11 transforaminal [...] patient was then turned supine onto the [place] and transferred to the recovery area in stable condition, to be discharged home after meeting criteria and follow up as per treatment plan. This document serves as a record of the services and decisions personally performed and made by the attending provider. It was created on his/her behalf by a trained medical collections. The creation of this document is based on the provider?s statements to the medical collections. Electronically signed by Lina Schwab MD 10/06/23 07:58 EST Electronically signed by Krupa Toscano 10/06/2023 07:44 EST [facility] 10-06-2023 Note History of Present I llness [...] on his/her behalf by a trained medical collections. The creation of this document is based on the provider?s statements to the medical collections. Problem List/Past Medical History Ongoing Anemia Angina [...] from documented surgica (more content not included)... [facility] 10-05-2023 History of Present illness Narrative 15 minute nucm-el-vpop follow-up anticoagulation appointment. INR performed in office [...] worsens. Luz Marina De Santiago RPH 10/05/23 0854 documented in this encounter [facility] 09-24-2023 History of Present illness Narrative 15 minute iooc-la-fgqd follow-up anticoagulation appointment. INR performed in office [...] RPH 09/24/23 0943 documented in this encounter [facility] 08-19-2023 Note PROCEDURE: Bilateral T9-10 transforaminal [...] on his/her behalf by a trained medical collections. The creation of this document is based on the provider?s statements to the medical collections. Electronically signed by Lina Schwab MD 08/19/23 11:53 EST Electronically signed by Krupa Toscano 08/19/2023 11:50 EST [facility] 08-19-2023 Note History of Present I llness [...] on his/her behalf by a trained medical collections. The creation of this document is based on the provider?s statements to the medical collections. Problem List/Past Medical History Ongoing Anemia Angina [...] Cervical/Thoracic Transforaminal Epidural (more content not included)... [facility] 07-05-2023 Note PROCEDURE: Radiofreq uency ablation of [...] on his/her behalf by a trained medical collections. The creation of this document is based on the provider?s statements to the medical collections. Electronically signed by Lina Schwab MD 07/05/23 12:08 EDT Electronically signed by Makead Richard 07/05/2023 11:51 EDT Electronically signed by Makeda Richard 07/05/2023 12:06 EDT [facility] 07-05-2023 Note History of Present I llness [...] on his/her behalf by a trained medical collections. The creation of this document is based on the provider?s statements to the medical collections. Problem List/Past Medical History Ongoing Anemia Angina [...] (Bilateral) (02/29/2020) Cervical/Thoracic (more content not included)... [facility] 08-25-2022 Hospital Discharge instructions Patient Education 08/25/2022 13:32:50 Kidney Stones, Bqbx-pz-Sdct Kidney Stones Kidney stones are rock-like masses [...] Follow these instructions at home: Medicines Take yvqb-uqt-agztptx and prescription medicines only as told by [...] 02/15/2009 Document Revised: 01/16/2020 Document Reviewed: 01/16/2020 [email or web address] Patient Education 2019 [email or web address] Follow Up Care 08/12/2021 11:07:07 With:DIANA GARRETT PA-C, URL Address: When:1 year [facility] Evaluation + Plan note Future Appointments Appointment Date:08/25/2023 01:00:00 PM Scheduled Provider:DIANA GARRETT PA-C Location:[facility] Appointment Type:URO Office Visit [facility] Evaluation + Plan note Future Appointments Appointment Date:08/29/2024 10:00:00 AM Scheduled Provider:DIANA GARRETT PA-C Location:[facility] Appointment Type:URO Office Visit Diagnostic Tests PendingUrine Culture 09/14/23 [facility] Evaluation + Plan note Future Appointments Appointment Date:08/29/2024 10:00:00 AM Scheduled Provider:DIANA GARRETT PA-C Location:[facility] Appointment Type:URO Office Visit [facility] Evaluation + Plan note Future Appointments Appointment Date:08/29/2024 10:00:00 AM Scheduled Provider:DIANA GARRETT PA-C Location:[facility] Appointment Type:URO Office Visit Diagnostic Tests PendingUrine Culture 09/24/23 [facility] Evaluation + Plan note Future Appointments Appointment Date:08/29/2024 10:00:00 AM Scheduled Provider:DIANA GARRETT PA-C Location:[facility] Appointment Type:URO Office Visit Diagnostic Tests PendingCalculi Analysis Urinary 10/20/23 [facility] Evaluation note No assessment inform ation available [facility] Work Phone: Evaluation note 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* Diagnosis Hypothyroidism, unspecified type documented in [facility]* Diagnosis Essential hypertension Unspecified essential hypertension documented in [facility]* Diagnosis Essential hypertension- Primary Unspecified essential hypertension B12 deficiency Mild persistent asthma without complication Iron deficiency anemia, unspecified iron deficiency anemia type documented in this [facility]* Diagnosis Gastroesophageal reflux disease, unspecified whether esophagitis present documented in this encounter [facility]* Diagnosis USP (current) use of 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- Primary Long-term (current) use of 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 documented in this encounter [facility]* Diagnosis Iron deficiency anemia due to chronic blood loss Iron deficiency anemia secondary to blood loss (chronic) documented in this encounter [facility]* Diagnosis USP (current) use of 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- Primary Long-term (current) use of 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 documented in this encounter [facility]* Diagnosis Migraine without aura and without status migrainosus, not intractable ([facility])- Primary documented in this encounter [facility] HealthcareEvaluation note* Diagnosis Mild persistent asthma without complication documented in this encounter [facility]* Diagnosis Well woman exam with routine gynecological exam Routine gynecological examination Postmenopausal state Asymptomatic postmenopausal status (age-related) (natural) Breast cancer screening by mammogram documented in this encounter [facility] HealthcareEvaluation note* Diagnosis Mild persistent asthma without complication- Primary Essential hypertension Unspecified essential hypertension Gastroesophageal reflux disease, unspecified whether esophagitis present Lupus anticoagulant disorder ([facility]) Primary hypercoagulable state B12 deficiency Mixed hyperlipidemia Encounter for immunization documented in this encounter 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* Diagnosis Gastroesophageal reflux disease, unspecified whether esophagitis present documented in this encounter [facility]* Diagnosis Mild persistent asthma without complication- Primary documented in this encounter [facility]* Diagnosis Essential hypertension- Primary Unspecified essential hypertension Mild persistent asthma without complication documented in this encounter [facility] note* Diagnosis Cervical spondylosis with radiculopathy Cervical spondylosis with myelopathy Gastroesophageal reflux disease, unspecified whether esophagitis present documented [facility]* Diagnosis USP (current) use of 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- Primary Long-term (current) use of 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 documented in this encounter [facility]* Diagnosis Iron deficiency anemia, unspecified iron deficiency anemia type Hypothyroidism, unspecified type documented in this encounter [facility] Narrative No data available for this section [facility] Hospital Discharge instructions No data available for this section [facility] filed[facility]ed in this encounter [facility] [...] available for this section 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 If your surgery date changes or you change your surgery date, please call us at [phone] Preoperative Medication Instructions In preparation for surgery please continue all of your current medications with the following changes: Noemi Brand Home Medication Instructions Prior to Surgery ZACK:[id number] Printed on:10/21/17 1250 Medication Information Take last [...] every morning TAKES 1 TABLET . NO asfhpqw-jdcatwoesb-KLO-caff (uwvudmglyx-fxinvpr-omtqxceh-codeine) capsule Take 1 capsule by mouth continuous [...] medications that contain aspirin, such as Danielle [place], Pepto- Bismol, Anacin), antiinflammatory medications such as Advil, Motrin, Ibuprofen, Naproxen, Aleve, Danielle [place], Pepto-Bismol,Anacin, Diclofenac, Voltaren, Daypro, Etodolac, Ketoprofen, Piroxicam, Relafen, Nabumetone, etc. THESE SHOULD NOT BE USED WHEN TAKING COUMADIN (WARFARIN). Also discontinue Vitamin C, Vitamin E, [place]-3 Fatty Acid, Fish Oil or [place], and [...] Elizabeth MD - 11/09/2017 6:56 AM Rossana Lunsford, - 10/21/2017 1:02 PM Rossana Lunsford, - 10/21/2017 1:02 PM EST H&P Notes (unrecognized sect ion and content) INTERVAL HISTORY AND PHYSICAL Patient Name: Noemi Brand Admit Date: [id number] MR #: [id number] : 1960 The H&P has been reviewed [...] surgery-11/09; LEFT TOTAL HIP ARTHROPLASTY ANTERIOR APPROACH [facility] Main OR pending laboratory. ECG 12 [...] acceptable cardiac risk based on the 2014 [place] [employer]/[place] Heart Association (ACC/AHA) guideline on Perioperative Cardiovascular [...] Therapy and Prevention of Thrombosis, 9th ed: [place] [employer] Evidence- Based Clinical [...] 11/09; LEFT TOTAL HIP ARTHROPLASTY ANTERIOR APPROACH [facility] Main OR . 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 Depression Fibromyalgia, primary GERD (gastroesophageal reflux disease) Headache MIGRAINES History of blood transfusion History of stress test 2012 Hyperlipidemia Hypothyroidism Nephrolithiasis Osteoarthritis of left hip Presence of vena cava filter Stroke ([facility]) 1994 Past Medical History Pertinent Negatives: Diagnosis Date Noted Bleeding disorder ([facility]) 09/17/2016 Blood transfusion reaction 09/17/2016 CHF (congestive heart failure) ([facility]) 10/21/2017 Complication of anesthesia 09/17/2016 Coronary artery disease 09/17/2016 Diabetes mellitus type I (HCC) 09/17/2016 Diabetes mellitus, type 2 (HCC) 09/11/2016 Hard to intubate 09/17/2016 Hypertension 09/17/2016 Malignant hyperthermia due to anesthesia 09/17/2016 No blood products 09/17/2016 PONV (postoperative nausea and vomiting) 10/21/2017 Rheumatoid arthritis (HCC) 10/18/2017 Sleep apnea, obstructive 09/17/2016 Past Surgical [...] Units, Oral, Every morning, TAKES 1 TABLET hldrdjw-qganqtuiyz-RLM-caff (bcgqeycvxa-pvtfsnq-edluskpa-codeine) capsule Take 1 capsule by mouth continuous [...] Subcutaneous, Every 12 hours Allergies Allergen Reactions [place] Other (See Comments) COMA Zoloft [Sertraline] Other [...] BP (!) 160/93 Pulse 88 Temp 99.7 F (37.6 C ) Ht 5' 5 Wt 97 kg (213 [...] surgery-11/09; LEFT TOTAL HIP ARTHROPLASTY ANTERIOR APPROACH [facility] Main OR pending laboratory. ECG 12 [...] acceptable cardiac risk based on the 2014 [place] [employer]/[place] Heart Association (ACC/AHA) guideline on Perioperative Cardiovascular [...] Therapy and Prevention of Thrombosis, 9th ed: [place] [employer] Evidence- Based Clinical [...] 11/09; LEFT TOTAL HIP ARTHROPLASTY ANTERIOR APPROACH [facility] OR . Patient states she has had [...] hip Presence of vena cava filter Stroke ([facility]) 1994 Past Medical History Pertinent Negatives: Diagnosis Date Noted Bleeding disorder ([facility]) 09/17/2016 Blood transfusion reaction 09/17/2016 CHF (congestive heart failure) ([facility]) 10/21/2017 Complication of anesthesia 09/17/2016 Coronary artery disease 09/17/2016 Diabetes mellitus type I ([facility]) 09/17/2016 Diabetes mellitus, type 2 ([facility]) 09/11/2016 Hard to intubate 09/17/2016 Hypertension 09/17/2016 Malignant hyperthermia due to anesthesia 09/17/2016 No blood products 09/17/2016 PONV (postoperative nausea and vomiting) 10/21/2017 Rheumatoid arthritis ([facility]) 10/18/2017 Sleep apnea, obstructive 09/17/2016 [...] Units, Oral, Every morning, TAKES 1 TABLET wsqxyxa-cqztdejink-ZQS-caff (ytpmobzygd-jvaijwd-qkkvwfwc-codeine) capsule Take 1 capsule by mouth continuous [...] Subcutaneous, Every 12 hours Allergies Allergen Reactions [place] Other (See Comments) COMA Zoloft [Sertraline] Other [...] BP (!) 160/93 Pulse 88 Temp 99.7 F (37.6 C ) Ht 5' 5 Wt 97 kg (213 [...] and interpreted-nonspecific ST segment changes.in this encounter Gabe Cony R, CUT OFF MAN-S - 11/11/2017 12:21 PM Lucrecia Blanchard, PT - 11/09/2017 3:08 PM Ignacio Abdi, LEAF STRIPPER - 11/09/2017 11:54 AM EST Consult Notes [...] No Discharge Readiness Expected Discharge Date: 11/11/17 [facility] Disposition D/C Disposition: Home Formatting of [...] to Stand: Min Stand Pivot Transfers: Min Cook Cashier Food Prep: Walker Gait/Locomotion Gait Assistance: Contact guard Assistive [...] Accessible via walker Home Equipment: Cane, Walker, Supervisor Payroll (crutches) Additional Comments: did not use assistive device prior to admit Prior Level of Function Level of [place]: Independent with ADLs and functional transfers, Independent [...] hip Presence of vena cava filter Stroke (HCC) 1994 Past Surgical History: Procedure Laterality Date ANTERIOR CERVICAL DISCECTOMY W/ FUSION ARTHROPLASTY TOTAL HIP ANTERIOR APPROACH Left 11/09/2017 Procedure: LEFT TOTAL HIP ARTHROPLASTY ANTERIOR APPROACH; Surgeon: Lina Elizabeth MD; Location: [facility] Main OR; Service: Orthopedic CATARACT EXTRACTION [...] - Cr 1.29. Seen by Dr. Arguello ([facility]) this morning and patient to follow-up for repeat labs with PCP as well. Patient states understanding. - Mobilize, WBAT, Anterior Hip Precautions - Cont bowel regimen - Maintain dressing x 7 days post op then change Opsite dressing and maintain until follow-up appointment, may shower - PT following - Ortho stable, plan for discharge today - [facility] for medical management, appreciate care - f/u [...] Position: Lying) Pulse (!) 57 Temp 97.9 F (36.6 C ) (Oral) Resp 15 Ht 5' 5 Wt 99 kg (218 lb 4.1 oz) SpO2 93% BMI 36.32 kg/m General: NAD; Alert and oriented x3 Lungs: no increased respiratory effort Cardiovascular: no edema Abdomen: soft; non tender Musculoskeletal: LLE: post op dressing CDI. Minimal Swelling. NVI. Moving the extremity. [place] and warm. Negative Saw's Sign. Cap refill less than 3 seconds. Psych: Mood and affect appropriate. Skin: No rashes; normal turgor. Intake/Output last 3 shifts: I/O last 3 completed shifts: In: 2771.2 [P.O.:2350; I.V.:221.2; IV Piggyback:200] Out: 3300 [Urine:3300] Results/Medications Reviewed 11/11/17 11:07 AM: Laboratory, Medications and Transcriptions NOEMI BRAND [id number] 1960 DATE 11/09/2017 OPERATIVE REPORT SURGEON LINA ELIZABETH MD ELECTRONIC RESOURCES LIBRARIAN ROSANGELA DUMONT PA-C There were no qualified [...] DVT prophylaxis. SPECIAL CONSIDERATIONS Rosangela Dumont, Physician Computer Processing Scheduler, should be billed as first aid officer since there were no qualified residents available [...] correct. LINA ELIZABETH MD D 11/09/2017 08:58 [id number] T 11/09/2017 09:55 TJE/MODL cc Dr. Alexander eHlms : [id number] Formatting of this note may be different from the original. Brief Post Operative Note Patient Name: Noemi Brand : 1960 (57 y.o.) Date of Service: 11/09/2017 CSN: [id number] Procedure(s): LEFT TOTAL HIP ARTHROPLASTY ANTERIOR APPROACH Pre-Operative Diagnoses: * M16.12 Post-Operative Diagnoses: * same Surgeon(s) and Role: * Lina Elizabeth MD - Primary Anesthesiologist: Jn Cramer MD PROCESS ENGINEERING TECHNICIAN: Jan Hill CRNA Soft Work Cigar Machine Operator: Ashley Salinas RN Physician Computer Processing Scheduler: Rosangela Dumont PA-C Scrub Person: Thuy House RN: Kasandra Guerra RN Operative findings: oa Intra and immediate post-operative complications: none Type of anesthesia used: Spinal Estimated blood loss: 400 mL Estimated urine output: 125 mL Specimen(s): * No specimens in log * Implant(s): Implant Name Type Inv. Item Serial No. Head Host/Hostess Lot No. LRB No. Used Action LINER 32MM C FLAT HIGHCROSS MPACT - [id number] LINER 32MM C FLAT HIGHCROSS MPACT MEDACTA [id number] Left 1 Implanted SHELL 48MM 2HL ACET MPACT - [id number] SHELL 48MM 2HL ACET MPACT MEDACTA [id number] Left 1 Implanted STEM SZ2 STD FEM PROX COAT TI AMISTEM-H - [id number] STEM SZ2 STD FEM PROX COAT TI AMISTEM-H MEDACTA [id number] Left 1 Implanted HEAD 32MM +4 FEM BIOLOX DELTA MECTACER - [id number] HEAD 32MM +4 FEM BIOLOX DELTA MECTACER MEDACTA [id number] Left 1 Implanted Drain(s): Urethral Catheter Non-latex 16 Fr. (Active) Wound(s): Incision 11/09/17 Hip Left (Active) Lina Elizabeth MD 11/09/2017 8:55 AM in this encounter Ev Strickland RN - 10/21/2017 12:33 PM EST Nursing Notes (unrecognized section and content) Patient Instructions for [facility]: Prior to surgery: Please be sure to wear loose, comfortable clothing and non-skid shoes Bring your health insurance information and a photo ID, as well as your Living Will or Durable Power of Supervisor [employer] for Healthcare if it is available to you. Bring your cane/walker any applicable assistive device. If you currently use a CPAP, please bring this device with you on the day of surgery. Bring a list of your medications with the name of the medication, dose and how often you are taking it. Be sure to include herbal preparations and gkqp-xqv-rdqioeu medications on this list. Do not eat [...] of lotions, perfumes or powders. All nail [place] is to be removed from fingernails and [...] the day of your surgery/procedure. Parking at [facility] is free. Please park in the lot in front of the main lobby. Enter the Main Entrance where a Maintenance Chief Liaison at the information desk will greet [...] of your surgery preparation process here at [facility]. It will provide you with additional [...] surgery call with arrival time; advised of ch Wash. in this encounter INFORMATION SOURCE (unrecogn ized section and content) DATE CREATED AUTHOR 03/01/2018 [facility] DATE CREATED AUTHOR AUTHOR'S ORGANIZ ATION 09/04/2018 [facility] DATE CREATED AUTHOR AUTHOR'S ORGANIZ ATION 12/11/2021 [facility] DATE CREATED AUTHOR AUTHOR'S ORGANIZ ATION 02/12/2022 [facility] DATE CREATED AUTHOR AUTHOR'S ORGANIZ ATION 08/13/2022 [facility] DATE CREATED AUTHOR AUTHOR'S ORGANIZ ATION 06/28/2024 [facility] DATE CREATED AUTHOR AUTHOR'S ORGANIZ ATION 06/28/2024 [facility] DATE CREATED AUTHOR AUTHOR'S ORGANIZ ATION 06/28/2024 [facility] DATE CREATED AUTHOR AUTHOR'S ORGANIZ ATION 07/22/2024 [facility] DATE CREATED AUTHOR AUTHOR'S ORGANIZ ATION 07/23/2024 [facility] DATE CREATED AUTHOR AUTHOR'S ORGANIZ ATION 07/30/2024 [facility] DATE CREATED AUTHOR AUTHOR'S ORGANIZ ATION 08/07/2024 [facility] DATE CREATED AUTHOR AUTHOR'S ORGANIZ ATION 08/15/2024 [facility] Care Teams (unrecognized sec tion and content) Director [employer] Relationship Specialty Start Date End Date Alexander Chen PCP - General 09/26/16 Team Status: Active Member Role Status Dates Alexander Chen DO Primary Care Provider Active Team Status: Inactive Member Role Status Dates Alexander Chen DO Primary Care Provider Active Mati Mcmillan MD Attending Provider Active Director [employer] Relationship Specialty Start Date End Date Alexander Chen DO [address] [place] [address] PCP - General 02/23/13 Team Status: Inactive Member Role Status Dates Alexander Chen DO Primary Care Provider Active Sta rt: October 04, 2023 End: October 04, 2023 Contreras Mcmillan MD Attending Provider Active St art: October 04, 2023 End: October 04, 2023 Director [employer] Relationship Specialty Start Date End Date Alexander Chen DO [address] [place] [address] PCP - General 02/23/13 Director [employer] Relationship Specialty Start Date End Date Alexander Chen DO [address] [place] [address] PCP - General 02/23/13 Director [employer] Relationship Specialty Start Date End Date Alexander Chen DO [address] [place] [address] PCP - General 02/23/13 Director [employer] Relationship Specialty Start Date End Date Alexander Chen DO [address] [place] [address] PCP - General 02/23/13 Director [employer] Relationship Specialty Start Date End Date Alexander Chen DO [address] [place] [address] PCP - General 02/23/13 Director [employer] Relationship Specialty Start Date End Date Alexander Chen DO [address] [place] [address] PCP - General 02/23/13 Team Status: Inactive Member Role Status Dates Alexander Chen DO Primary Care Provider Active Sta rt: February 25, 2024 End: February 25, 2024 Carlotta Stanley NP-C Attending Provider Active Start: February 25, 2024 End: February 25, 2024 Director [employer] Relationship Specialty Start Date End Date Alexander Chen DO [address] [place] [address] PCP - General 02/23/13 Ashley Angeles [facility] Nurse - [employer] 03/03/24 Director [employer] Relationship Specialty Start Date End Date Alexander Chen DO [address] [place] [address] PCP - General 02/23/13 Ashley Angeles [facility] Nurse - [employer] 03/03/24 Director [employer] Relationship Specialty Start Date End Date Alexander Chen MD [address] [place] [address] PCP - General Internal Medicine 06/22/23 Director [employer] Relationship Specialty Start Date End Date Alexander Chen DO [address] [place] [address] PCP - General 02/23/13 Nava Sanches [facility] Nurse - [employer] 06/16/24 Director [employer] Relationship Specialty Start Date End Date Alexander Chen MD [address] [place] [address] PCP - General Internal Medicine 06/22/23 Director [employer] Relationship Specialty Start Date End Date Alexander Chen DO [address] [place] [address] PCP - General 02/23/13 Nava Sanches [facility] Nurse - [employer] 06/16/24 Director [employer] Relationship Specialty Start Date End Date Alexander Chen MD [address] [place] [address] PCP - General Internal Medicine 06/22/23 Director [employer] Relationship Specialty Start Date End Date Aelxander Chen MD [address] [place] [address] PCP - General Internal Medicine 06/22/23 Director [employer] Relationship Specialty Start Date End Date Alexander Chen DO [address] [place] [address] PCP - General 02/23/13 Nava Sanches [facility] Nurse - [employer] 06/16/24 Director [employer] Relationship Specialty Start Date End Date Alexander Chen DO [address] [facility] [place] [address] PCP - General 02/23/13 Nava Sanches [facility] Nurse - [employer] 06/16/24 Director [employer] Relationship Specialty Start Date End Date Alexander Chen DO [address] [facility] [place] [address] PCP - General 02/23/13 Nava Sanches [facility] Nurse - [employer] 06/16/24 Director [employer] Relationship Specialty Start Date End Date Alexander Chen DO [address] [place] [address] PCP - General 02/23/13 Nava Sanches [facility] Nurse - [employer] 06/16/24 Director [employer] Relationship Specialty Start Date End Date Alexander Chen DO [address] [place] [address] PCP - General 02/23/13 Nava Sanches [facility] Nurse - [employer] 06/16/24 Director [employer] Relationship Specialty Start Date End Date Alexander Chen DO [address] [place] [address] PCP - General 02/23/13 Nava Sanches [facility] Nurse - [employer] 06/16/24 Director [employer] Relationship Specialty Start Date End Date Alexander Chen DO [address] [place] [address] PCP - General 02/23/13 Nava Sanches [facility] Nurse - [employer] 06/16/24 Goals (unrecognized section and content) Goals may be documented in a n alternate section Reason for Visit (unrecogniz ed section and content) Reason Comments Med Refill Reason Comments BP/ ANEMIA Reason Comments Well Women Visit Reason Comments Hypertension FOR RECORDS PERTAINING TO PATIENTS WHO ARE [...] BE BASED ON THE PRIMARY CLINICAL RECORDS. [employer] provides no warranty or guarantee of the accuracy or completeness of information in this document.
--- NOTE | 2024-08-18 07:20 | MM_ITS ---
Patient Name: NORA BRAND MR#: [id number] : 1960 Exam Date: 08/18/2024 Ordering Doctor: DR Kobi Latham . RADIOLOGY REPORT PROCEDURE: MM TOMOSYNTHESIS SCREENING BI COMPARISON: MM TOMOSYNTHESIS SCREENING BI, 08/13/2023. MG MAMM SCREEN 3D TERENCE CAD, 06/05/2022. MG MAMM SCREEN 3D TERENCE CAD, 05/28/2021. MG MAMM SCREEN TERENCE W CAD, 01/25/2018. INDICATIONS: Screening Calculator Name NCI Breast Cancer Risk Assessment Tool 5 Year Breast Cancer Risk 1.90% Lifetime Breast Cancer Risk 8.10% Personal Breast Cancer No Personal Ovarian Cancer No Treatments None Family Cancers Sister with thyroid cancer at age 52. LOCATION: [facility] BREAST COMPOSITION: There are scattered areas of fibroglandular density. FINDINGS: DIAGNOSTIC CATEGORY 1--NEGATIVE. RIGHT BREAST: No significant suspicious finding. No significant change has occurred. LEFT BREAST: No significant suspicious finding. No significant change has occurred. RECOMMENDATIONS: ROUTINE MAMMOGRAM AND CLINICAL EVALUATION IN 12 MONTHS. PLEASE NOTE: A NORMAL MAMMOGRAM DOES NOT EXCLUDE THE POSSIBILITY OF BREAST CANCER. A CLINICALLY SUSPICIOUS PALPABLE LUMP SHOULD BE BIOPSIED. Dictated by: Rj Lozada M.D. on 08/18/2024 at 09:57 Approved by: Rj Lozada M.D. on 08/18/2024 at 10:07
== END 2024-08-18 07:17 | disposition home or self-care (01) ==
LOC: MAMMO 07:16
PROVIDERS: PCP Internal Medicine; Visit Provider Obstetrics & Gynecology
DX: Z12.31 Encounter for screening mammogram for malignant neoplasm of breast (principal); Z80.8 Family history of malignant neoplasm of other organs or systems
CPT/HCPCS: 77063; 77067

== ENCOUNTER 2024-08-23 09:54 | Outpatient (OUT) | payer MEDICARE, OTHER, SELFPAY ==
--- NOTE | 2024-08-23 09:58 | XR_ITS ---
The [address] [address] Patient Name: NORA BRAND MRN: [id number] date: 1960 Sex: F Assigned Patient Location: Current Patient Location: Accession/Order Number: [id number] Exam Date: 08/23/2024 10:22 Report Date: 08/24/2024 05:12 At the request of: ANDRE MCNEIL Procedure: XR abdomen 1V EXAMINATION: XR abdomen 1V HISTORY: Kidney Stone COMPARISON: XR abdomen 08/24/2023 FINDINGS: KIDNEY/URETER - RIGHT: No visible renal or ureteral calcifications. KIDNEY/URETER - LEFT: No visible renal or ureteral calcifications. PELVIS: No visible ureteral stones. Stable pelvic calcifications compatible with phleboliths. BOWEL: No abnormal dilation or deviation. BONES: Bilateral hip replacements. OTHER: 5 mm stone projecting over inferior margin of liver suspected to be a gallstone. Filter within IVC. XR/XR abdomen 1V IMPRESSION: 1. No appreciable urinary tract calculi. 2. Suspect cholelithiasis. Electronically authenticated by: YESENIA BLACK Date: 08/24/2024 05:12
--- NOTE | 2024-08-23 09:58 | US_ITS ---
[address] [address] Patient Name: NORA RBAND MRN: [id number] date: 1960 Sex: F Assigned Patient Location: US Current Patient Location: US Accession/Order Number: [id number] Exam Date: 08/23/2024 10:00 Report Date: 08/23/2024 13:12 At the request of: ANDRE MCNEIL Procedure: US renal BI EXAMINATION: US renal BI HISTORY: Kidney Stone COMPARISON: No relevant comparison available. TECHNIQUE: Ultrasound examination was performed of the bladder. FINDINGS: Right Kidney: Normal in size, contour and echotexture. The cortex measures 1.3 cm. No solid cortical mass or hydronephrosis. Echogenic foci measuring up to 5 mm, cortical calcifications are favored Height: 5.23 cm Length: 9.76 cm Width: 5.28 cm Left Kidney: Normal in size, contour and echotexture. The cortex measures 1.3 cm. No solid cortical mass or hydronephrosis. Echogenic foci measuring up to 3 mm, nephrolithiasis. Height: 5.13 cm Length: 10.78 cm Width: 4.48 cm Urinary bladder is unremarkable measuring 121 mL's US/US renal BI IMPRESSION: Bilateral calcifications Electronically authenticated by: LANEY RAMOS Date: 08/23/2024 13:12
== END 2024-08-23 09:55 | disposition home or self-care (01) ==
LOC: US 09:54
PROVIDERS: PCP Internal Medicine; Visit Provider Physician Assistant
DX: N20.0 Calculus of kidney (principal)
CPT/HCPCS: 74018; 76775

== ENCOUNTER 2025-07-03 12:12 | Outpatient (REF) | payer MEDICARE, OTHER, SELFPAY ==
--- OUTSIDE RECORDS SUMMARY | 2025-06-29 11:41 | XMS_ITS | Encounter Summary ---
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 Role Phone Don Hobson DO Primary Care Provider [phone] Reason for Referral * Misc (Routine) - AuthorizedSpecialtyDiagnoses / ProceduresReferred By Contact Referred To Contact Procedures Discharge Follow-Up Don Hobson DO [address] [place] [address] Phone: tel: fax: Referral IDStatusReasonStart DateExpiration DateVisits RequestedVisits [id number]/17/202510/17/202611 * Misc (Routine) - AuthorizedSpecialtyDiagnoses / ProceduresReferred By Contact Referred To Contact Diagnoses Adenomatous polyp of transverse colon Adenomatous polyp of sigmoid colon Procedures Follow-up with primary care provider Don Hobson DO [address] [place] [address] Phone: tel: fax: Referral IDStatusReasonStart DateExpiration DateVisits RequestedVisits [id number]/17/202510/17/202611 * Misc (Routine) - AuthorizedSpecialtyDiagnoses / ProceduresReferred By Contact Referred To Contact Procedures Adult diet Don Hobson DO [address] [place] [address] Phone: tel: fax: Referral IDStatusReasonStart DateExpiration DateVisits RequestedVisits [id number]/17/202510/17/202611 Reason for Visit * Auth/CertSpecialtyDiagnoses / ProceduresReferred By ContactReferred To Contact Diagnoses Screen for colon cancer screening Procedures AR COLON CA SCRN NOT HI RSK IND AR COLONOSCOPY FLX DX W/COLLJ SPEC WHEN PFRMD COLONOSCOPY DIAGNOSTIC / SCREENING COLONOSCOPY DIAGNOSTIC / SCREENING Don Hobson DO [address] [place] [address] Phone: tel: fax: Referral IDStatusReasonStart DateExpiration DateVisits RequestedVisits [id number] Encounter Details DateTypeDepartmentCare Team (Latest Contact Info)Szztyccavkj26/17/2025 11:41 AM EDT - 06/29/2025 2:02 PM EDTHospital Encounter [facility] [address] [place] [id number] Don Hobson DO [address] [place] [address] Personal history of adenomatous and serrated colon polyps (Primary Dx); Screen for colon cancer; Adenomatous polyp of transverse colon; Adenomatous polyp of sigmoid colon Discharge Disposition: Home Social History Tobacco UseTypesPacks/DayYears UsedDateSmoking Tobacco: NeverSmokeless Tobacco: NeverAlcohol UseStandard Drinks/WeekCommentsNo0 (1 standard drink = 0.6 oz pure alcohol)[facility] UtilitiesAnswerDate RecordedIn the past 12 months has the electric, gas, oil, or water RE2 threatened to shut off services in your home?No 05/09/2024Social Connection and Isolation PanelAnswerDate RecordedIn a typical week, how many times do you talk on the phone with family, friends, or neighbors?Three times a week05/09/2024How often do you get together with friends or relatives?Three times a week05/09/2024How often do you attend hoahaoism or amish services?Never05/09/2024o you belong to any clubs or organizations such as hoahaoism groups, unions, fraApplitools or athletic groups, or school groups?No 05/09/2024How often do you attend meetings of the clubs or organizations you belong to?Never05/09/2024re you , , , , never , or living with a partner?Phnewkb3805/09/2024UDIT-CAnswerDate RecordedQ1: How often do you have a drink containing alcohol?Never12/07/2021Q2: How many drinks containing alcohol do you have on a typical day when you are drinking? Patient does not drink12/07/2021Q3: How often do you have six or more drinks on one occasion?Never12/07/2021verall Financial Resource Strain (CARDIA)AnswerDate RecordedHow hard is it for you to pay for the very basics like food, housing, medical care, and heating?Not hard at all05/06/2023HQ-2AnswerDate RecordedTotal Qyzab666Finm[facility] [place] of Occupational Health - Occupational Stress QuestionnaireAnswerDate RecordedDo you feel stress - tense, restless, nervous, or anxious, or unable to sleep at night because yourmind is troubled all the time - these days?Only a fcouvh5812/07/2021Exercise Vital SignAnswerDate Recorded On average, how many days per week do you engage in moderate to strenuous exercise (like a brisk walk)?5 days05/09/2024On average, how many minutes do you engage in exercise at this level?20 min05/09/2024RAPARE - TransportationAnswer Date RecordedIn the past 12 months, has lack of transportation kept you from medical appointments or from getting medications?No12/07/2021In the past 12 months, has lack of transportation kept you from meetings, work, or from getting things needed for daily living?No12/07/2021Housing InstabilityAnswerDate RecordedAre you worried or concerned that in the next two months you may not have stable housing that you own, rent or stay in as a part of a household?No 05/09/2024hildcareAnswerDate RecordedDo problems getting children's lunchroom supervisor make it difficult for you to work or study?No12/07/2021EmploymentAnswerDate RecordedDo you need help finding a local career center and/or a training program?No 12/07/2021Hunger ScreeningAnswerDate RecordedWithin the past 12 months we worried whether our food would run out before we got money to buy more.Never True03/06/2025Within the past 12 months the food we bought just didn't last and we didn't have money to get more.Never True03/06/2025Purpose - LifeAnswerDate RecordedI have a purpose and direction in my life.Somewhat Agree12/07/2021 CommentsNoSex and Gender InformationValueDate RecordedSex Assigned at BirthNot on fileLegal KgsCmyvai84/06/2015 11:30 AM EDTGender IdentityNot on file Sexual OrientationNot on filedocumented as of this encounter Last Filed Vital Signs Vital SignReadingTime TakenCommentsBlood Vaojlago710/7110 1:50 PM EDT Aupkn503206/29/2025 1:50 PM CCMBboonbgcupe91.4 ??C (97.5 ??F)06/29/2025 1:37 PM EDTRespiratory Zgfy2875 1:50 PM EDTOxygen Dknrjvafgk87%06/29/2025 1:50 PM EDTInhaled Oxygen Concentration--Hqlihv74.9 kg (207 lb)06/29/2025 11:59 AM TKMGpclup296.1 cm (5' 5 )06/29/2025 11:59 AM EDTBody Mass Index34.451 11:59 AM EDTdocumented in this encounter Medications at Time of Discharge MedicationSigDispense QuantityRefillsLast FilledStart DateEnd Date albuterol (PROVENTIL HFA;VENTOLIN HFA) 90 mcg/actuation inhaler Indications:Mild persistent asthma without complicationUSE 2 INHALATIONS EVERY 6 HOURS NEEDED FOR WHEEZING 17 g 6011/08/2024 albuterol (PROVENTIL,VENTOLIN) 2.5 mg /3 mL (0.083 %) nebulizer solution Indications:Mild persistent asthma without complicationInhale 3 mL (2.5 mg total) by nebulization 4 (four) times a day. 75 mL aspirin 81 mg chewable tablet Chew 1 tablet (81 mg total) and swallow. baclofen (LIORESAL) 10 mg tablet Indications:Cervical spondylosis with radiculopathyTAKE 1 TABLET FOUR TIMES A DAY 360 tablet 01/03/2025 BIOTIN ORAL Take 1 tablet by mouth in the morning and at bedtime. buPROPion XL (WELLBUTRIN XL) 300 mg 24 hr tablet busPIRone (BUSPAR) 10 mg tablet Take 1 tablet (10 mg total) by mouth.02/04/2021 icppqcxotp-khijxncnmq-glv-cod (FIORICET WITH CODEINE) 04-325-99-30 mg per capsule Take 1 capsule by mouth every 6 (six) hours as needed.01/15/2025 cholecalciferol, vitamin D3, 5,000 units tablet 1 tablet (5,000 Units total). diclofenac sodium (VOLTAREN) 1 % gel Indications:Generalized osteoarthritisAPPLY 2 GM TOPICALLY IN THE MORNING, AT NOON, IN THE EVENING, AND BEFORE BEDTIME 300 g enoxaparin (LOVENOX) 100 mg/mL syringe Indications:Lupus anticoagulant disorder,Personal history of DVT (deep vein thrombosis)Inject 1 mL (100 mg total) under the skin Every 12 (twelve) hours. 20 mL famotidine (PEPCID) 40 mg tablet Indications:Gastroesophageal reflux disease, unspecified whether esophagitis presentTAKE 1 TABLET IN THE MORNING 90 tablet fluticasone propion-salmeteroL (ADVAIR HFA) 230-21 mcg/actuation inhaler Indications:Mild persistent asthma without complicationUSE 2 INHALATIONS TWICE A DAY 36 g folic acid (FOLVITE) 1 mg tablet Indications:Iron deficiency anemia, unspecified iron deficiency anemia typeTAKE 1 TABLET DAILY 90 tablet gabapentin (NEURONTIN) 300 mg capsule 1 capsule (300 mg total). galcanezumab-gnlm (EMGALITY PEN) 120 mg/mL pen injector icosapent ethyL (VASCEPA) 1 gram capsule Indications:Mixed hyperlipidemiaTAKE 1 CAPSULE IN THE MORNING AND 1 CAPSULE BEFORE BEDTIME 180 capsule levothyroxine (SYNTHROID, LEVOTHROID) 50 MCG tablet Indications:Hypothyroidism, unspecified typeTake 1 tablet (50 mcg total) by mouth every morning. 90 tablet metoclopramide (REGLAN) 10 mg tablet Indications:Gastroesophageal reflux disease, unspecified whether esophagitis presentTAKE 1 TABLET IN THE MORNING AND 1 TABLET BEFORE BEDTIME 180 tablet 05/08/2025 montelukast (SINGULAIR) 10 mg tablet Indications:Mild persistent asthma without complicationTAKE 1 TABLET DAILY 90 tablet naltrexone (REVIA) 50 mg tablet Take 1.5 mg by mouth in the morning. nystatin (NYSTOP) powder Indications:An rash of groinAPPLY 1 APPLICATION TOPICALLY TWICE A DAY NEEDED (RASH OR ITCHING) 60 g pantoprazole (PROTONIX) 40 mg EC tablet Indications:Gastroesophageal reflux disease, unspecified whether esophagitis presentTake 1 tablet (40 mg total) by mouth every morning before breakfast. TAKE 1 TABLET IN THE MORNING AND AT TVJIETW5201/29/2025 propranoloL (INDERAL) 60 mg tablet Take 1 tablet (60 mg total) by mouth in the morning. QUEtiapine (SEROquel) 400 mg tablet Take 1 tablet (400 mg total) by mouth nightly.08/19/2022 QUEtiapine (SEROquel) 50 mg tablet Take 1 tablet (50 mg total) by mouth nightly.11/15/2024 UBRELVY 100 mg tablet Take 1 tablet by mouth. valsartan (DIOVAN) 80 mg tablet Indications:Essential hypertensionTAKE 1 TABLET DAILY AT NOON 90 tablet verapamiL (CALAN) 80 mg tablet Take 1 tablet (80 mg total) by mouth in the morning. warfarin (COUMADIN) 5 mg tablet Indications:Lupus anticoagulant disorderTake 1/2 to 1 tablet Once Daily as directed by [facility] Medication Management 90 tablet zolpidem (AMBIEN) 10 mg tablet 12/06/2023 atorvastatin (LIPITOR) 80 mg tablet Indications:Mixed hyperlipidemiaTAKE 1 TABLET IN THE MORNING 90 tablet documented as of this encounter H&P Notes * Don Hobson DO - 06/29/2025 12:05 PM EDT HISTORY AND PHYSICAL INTERVAL NOTE: Noemi Mcintosh Federico 1960 [id number] H&P reviewed. The patient was examined and there are no changes to the H&P. Don Hobson Jr, DO Source Note - Don Hobson DO - 06/25/2025 7:52 PM EDT Pre-Procedural Diagnosis: Personal history of colon polyps Indications: same Procedure Planned: Colonoscopy History Obtained From: patient HISTORY OF PRESENT ILLNESS: The patient is a 65 y.o. female who presents for the above procedure. Past Medical History: Past Medical History: Diagnosis Date Anemia Anxiety with depression Asthma 06/16/2016 Bipolar II disorder ([facility] 12/17/2021 Cervical spondylosis with radiculopathy 12/04/2019 Chronic antral gastritis 06/02/2017 Chronic kidney disease, stage 3a ([facility]) 06/12/2021 Clotting disorder lupus GERD (gastroesophageal reflux disease) Glaucoma 11/02/2019 Right History of migraine headaches Hyperlipidemia Iron deficiency anemia 05/25/2017 Primary fibromyalgia syndrome 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 Stroke [place] 1995 Transient ischemic attack (TIA) Past Surgical History: Past Surgical History: Procedure Laterality Date ANTERIOR FUSION CERVICAL SPINE BACK SURGERY CARDIAC CATHETERIZATION CATARACT EXTRACTION Left 06/18/2016 SECTION EGD N/A 06/02/2017 Performed by Don Hobson DO at [facility] ESOPHAGOGASTRODUODENOSCOPY 10/2011 HERNIA REPAIR HYSTERECTOMY 2009 KNEE ARTHROSCOPY NASAL ENDOSCOPY 02/06/2020 NECK SURGERY OTHER SURGICAL HISTORY EAR CARTILAGE GRAFT PARTIAL HIP ARTHROPLASTY Left 11/09/2017 PARTIAL HIP ARTHROPLASTY Right 08/31/2018 VENA CAVA FILTER PLACEMENT 12/2014 Medications: No current facility-administered medications for this encounter. Current Outpatient Medications Medication Sig Dispense Refill albuterol (PROVENTIL HFA;VENTOLIN HFA) 90 mcg/actuation inhaler USE 2 INHALATIONS EVERY 6 HOURS NEEDED FOR WHEEZING 17 g 6 albuterol (PROVENTIL,VENTOLIN) 2.5 mg /3 mL (0.083 %) nebulizer solution Inhale 3 mL (2.5 mg total)by nebulization 4 (four) times a day. 75 mL 1 aspirin 81 mg chewable tablet Chew 1 tablet (81 mg total) and swallow. atorvastatin (LIPITOR) 80 mg tablet TAKE 1 TABLET IN THE MORNING 90 tablet 1 baclofen (LIORESAL) 10 mg tablet TAKE 1 TABLET FOUR TIMES A DAY 360 tablet 0 BIOTIN ORAL Take 1 tablet by mouth in the morning and at bedtime. buPROPion XL (WELLBUTRIN XL) 300 mg 24 hr tablet busPIRone (BUSPAR) 10 mg tablet Take 1 tablet (10 mg total) by mouth. yxhwumjlhz-mnbhdcvejn-csd-cod (FIORICET WITH CODEINE) 48-494-28-30 mg per capsule Take 1 capsule bymouth every 6 (six) hours as needed. cholecalciferol, vitamin D3, 5,000 units tablet 1 tablet (5,000 Units total). cyanocobalamin 1000 MCG tablet take 1 tablet by mouth every morning 90 tablet 1 diclofenac sodium (VOLTAREN) 1 % gel APPLY 2 GM TOPICALLY IN THE MORNING, AT NOON, IN THE EVENING, AND BEFORE BEDTIME 300 g 1 enoxaparin (LOVENOX) 100 mg/mL syringe Inject 1 mL (100 mg total) under the skin Every 12 (twelve) hours. 20 mL 1 famotidine (PEPCID) 40 mg tablet TAKE 1 TABLET IN THE MORNING 90 tablet 1 ferrous sulfate (FeroSuL) 325 (65 FE) mg tablet Take 1 tablet (325 mg total) by mouth in the morning and 1 tablet (325 mg total) in the evening. Take with meals. 180 tablet 1 fluticasone propion-salmeteroL (ADVAIR HFA) 230-21 mcg/actuation inhaler USE 2 INHALATIONS TWICE A DAY 36 g 3 folic acid (FOLVITE) 1 mg tablet TAKE 1 TABLET DAILY 90 tablet 3 gabapentin (NEURONTIN) 300 mg capsule 1 capsule (300 mg total). galcanezumab-gnlm (EMGALITY PEN) 120 mg/mL pen injector icosapent ethyL (VASCEPA) 1 gram capsule TAKE 1 CAPSULE IN THE MORNING AND 1 CAPSULE BEFORE [id number] capsule 3 levothyroxine (SYNTHROID, LEVOTHROID) 50 MCG tablet Take 1 tablet (50 mcg total) by mouth every morning. 90 tablet 1 metoclopramide (REGLAN) 10 mg tablet TAKE 1 TABLET IN THE MORNING AND 1 TABLET BEFORE BEDTIME 180 tablet 0 montelukast (SINGULAIR) 10 mg tablet TAKE 1 TABLET DAILY 90 tablet 3 naltrexone (REVIA) 50 mg tablet Take 1.5 mg by mouth in the morning. nystatin (NYSTOP) powder APPLY 1 APPLICATION TOPICALLY TWICE A DAY NEEDED (RASH OR ITCHING) 60 g2 pantoprazole (PROTONIX) 40 mg EC tablet Take 1 tablet (40 mg total) by mouth every morning before breakfast. TAKE 1 TABLET IN THE MORNING AND AT BEDTIME propranoloL (INDERAL) 60 mg tablet Take 1 tablet (60 mg total) by mouth in the morning. QUEtiapine (SEROquel) 400 mg tablet Take 1 tablet (400 mg total) by mouth nightly. QUEtiapine (SEROquel) 50 mg tablet Take 1 tablet (50 mg total) by mouth nightly. UBRELVY 100 mg tablet Take 1 tablet by mouth. valsartan (DIOVAN) 80 mg tablet TAKE 1 TABLET DAILY AT NOON 90 tablet 1 verapamiL (CALAN) 80 mg tablet Take 1 tablet (80 mg total) by mouth in the morning. warfarin (COUMADIN) 5 mg tablet Take 1/2 to 1 tablet Once Daily as directed by [facility] Medication Management 90 tablet 3 zolpidem (AMBIEN) 10 mg tablet Allergies: Allergies Allergen Reactions Amoxicillin Hives [place] Confusion and Other (See Comments) COMA PT. SAYS SHE WENT INTO A COMA [place] Analogues Other (See Comments) COMA Penicillins Hives Prednisone Swelling Per care everywhere, causes swelling ORAL ONLY--SWELLING WITH LONG TIME USE Other Reaction(s): Unknown Sertraline Hives Chest Pain Sevelamer Hives Vortioxetine Nausea And Vomiting Other reaction(s): GI Intolerance Azithromycin Meloxicam Hematuria Milnacipran Other (See Comments) Other reaction(s): Unknown Erythromycin Abnormal Behavior Problems with Sedation/Anesthesia in the past? no REVIEW OF SYSTEMS: 12 point review of systems negative other than mentioned above. PHYSICAL EXAM: Vitals: There were no vitals taken for this visit. Focused Exam related to procedure: General appearance: NAD, conversant Lungs: CTA, with normal respiratory effort and no intercostal retractions CV: RRR, no MRGs Abdomen: Soft, non-tender; no masses or HSM ASA ([employer] Anesthesiology) Anesthesia Status: Class II Soft palate, fauces, uvula ASA Physical Status Classification: ASA 3 - Patient with moderate systemic disease with functional limitations ASSESSMENT AND PLAN: 1. Patient is a 65 y.o. female with above specified procedure planned. Expected Sedation/Anesthesia Type: Moderate Sedation 2. Procedure options, risks and benefits reviewed with Patient. Patient expresses understanding. 3. Consent has been signed: Yes * Don Hobson DO - 06/25/2025 7:52 PM EDT Pre-Procedural Diagnosis: Personal history of colon polyps Indications: same Procedure Planned: Colonoscopy History Obtained From: patient HISTORY OF PRESENT ILLNESS: The patient is a 65 y.o. female who presents for the above procedure. 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 Stroke ([facility] 1995 Transient ischemic attack (TIA) Past Surgical History: Past Surgical History: Procedure Laterality Date ANTERIOR FUSION CERVICAL SPINE BACK SURGERY CARDIAC CATHETERIZATION CATARACT EXTRACTION Left 06/18/2016 SECTION EGD N/A 06/02/2017 Performed by Don Hobson DO at [facility] ESOPHAGOGASTRODUODENOSCOPY 10/2011 HERNIA REPAIR HYSTERECTOMY 2009 KNEE ARTHROSCOPY NASAL ENDOSCOPY 02/06/2020 NECK SURGERY OTHER SURGICAL HISTORY EAR CARTILAGE GRAFT PARTIAL HIP ARTHROPLASTY Left 11/09/2017 PARTIAL HIP ARTHROPLASTY Right 08/31/2018 VENA CAVA FILTER PLACEMENT 12/2014 Medications: No current facility-administered medications for this encounter. Current Outpatient Medications Medication Sig Dispense Refill albuterol (PROVENTIL HFA;VENTOLIN HFA) 90 mcg/actuation inhaler USE 2 INHALATIONS EVERY 6 HOURS NEEDED FOR WHEEZING 17 g 6 albuterol (PROVENTIL,VENTOLIN) 2.5 mg /3 mL (0.083 %) nebulizer solution Inhale 3 mL (2.5 mg total)by nebulization 4 (four) times a day. 75 mL 1 aspirin 81 mg chewable tablet Chew 1 tablet (81 mg total) and swallow. atorvastatin (LIPITOR) 80 mg tablet TAKE 1 TABLET IN THE MORNING 90 tablet 1 baclofen (LIORESAL) 10 mg tablet TAKE 1 TABLET FOUR TIMES A DAY 360 tablet 0 BIOTIN ORAL Take 1 tablet by mouth in the morning and at bedtime. buPROPion XL (WELLBUTRIN XL) 300 mg 24 hr tablet busPIRone (BUSPAR) 10 mg tablet Take 1 tablet (10 mg total) by mouth. tsfobblzdm-tmhlgcjljw-fea-cod (FIORICET WITH CODEINE) 04-879-50-30 mg per capsule Take 1 capsule bymouth every 6 (six) hours as needed. cholecalciferol, vitamin D3, 5,000 units tablet 1 tablet (5,000 Units total). cyanocobalamin 1000 MCG tablet take 1 tablet by mouth every morning 90 tablet 1 diclofenac sodium (VOLTAREN) 1 % gel APPLY 2 GM TOPICALLY IN THE MORNING, AT NOON, IN THE EVENING, AND BEFORE BEDTIME 300 g 1 enoxaparin (LOVENOX) 100 mg/mL syringe Inject 1 mL (100 mg total) under the skin Every 12 (twelve) hours. 20 mL 1 famotidine (PEPCID) 40 mg tablet TAKE 1 TABLET IN THE MORNING 90 tablet 1 ferrous sulfate (FeroSuL) 325 (65 FE) mg tablet Take 1 tablet (325 mg total) by mouth in the morning and 1 tablet (325 mg total) in the evening. Take with meals. 180 tablet 1 fluticasone propion-salmeteroL (ADVAIR HFA) 230-21 mcg/actuation inhaler USE 2 INHALATIONS TWICE A DAY 36 g 3 folic acid (FOLVITE) 1 mg tablet TAKE 1 TABLET DAILY 90 tablet 3 gabapentin (NEURONTIN) 300 mg capsule 1 capsule (300 mg total). galcanezumab-gnlm (EMGALITY PEN) 120 mg/mL pen injector icosapent ethyL (VASCEPA) 1 gram capsule TAKE 1 CAPSULE IN THE MORNING AND 1 CAPSULE BEFORE CSBXRJZ140 capsule 3 levothyroxine (SYNTHROID, LEVOTHROID) 50 MCG tablet Take 1 tablet (50 mcg total) by mouth every morning. 90 tablet 1 metoclopramide (REGLAN) 10 mg tablet TAKE 1 TABLET IN THE MORNING AND 1 TABLET BEFORE BEDTIME 180 tablet 0 montelukast (SINGULAIR) 10 mg tablet TAKE 1 TABLET DAILY 90 tablet 3 naltrexone (REVIA) 50 mg tablet Take 1.5 mg by mouth in the morning. nystatin (NYSTOP) powder APPLY 1 APPLICATION TOPICALLY TWICE A DAY NEEDED (RASH OR ITCHING) 60 g2 pantoprazole (PROTONIX) 40 mg EC tablet Take 1 tablet (40 mg total) by mouth every morning before breakfast. TAKE 1 TABLET IN THE MORNING AND AT BEDTIME propranoloL (INDERAL) 60 mg tablet Take 1 tablet (60 mg total) by mouth in the morning. QUEtiapine (SEROquel) 400 mg tablet Take 1 tablet (400 mg total) by mouth nightly. QUEtiapine (SEROquel) 50 mg tablet Take 1 tablet (50 mg total) by mouth nightly. UBRELVY 100 mg tablet Take 1 tablet by mouth. valsartan (DIOVAN) 80 mg tablet TAKE 1 TABLET DAILY AT NOON 90 tablet 1 verapamiL (CALAN) 80 mg tablet Take 1 tablet (80 mg total) by mouth in the morning. warfarin (COUMADIN) 5 mg tablet Take 1/2 to 1 tablet Once Daily as directed by [facility] Medication Management 90 tablet 3 zolpidem (AMBIEN) 10 mg tablet Allergies: Allergies Allergen Reactions Amoxicillin Hives [place] Confusion and Other (See Comments) COMA PT. SAYS SHE WENT INTO A COMA [place] Analogues Other (See Comments) COMA Penicillins Hives Prednisone Swelling Per care everywhere, causes swelling ORAL ONLY--SWELLING WITH LONG TIME USE Other Reaction(s): Unknown Sertraline Hives Chest Pain Sevelamer Hives Vortioxetine Nausea And Vomiting Other reaction(s): GI Intolerance Azithromycin Meloxicam Hematuria Milnacipran Other (See Comments) Other reaction(s): Unknown Erythromycin Abnormal Behavior Problems with Sedation/Anesthesia in the past? no REVIEW OF SYSTEMS: 12 point review of systems negative other than mentioned above. PHYSICAL EXAM: Vitals: There were no vitals taken for this visit. Focused Exam related to procedure: General appearance: NAD, conversant Lungs: CTA, with normal respiratory effort and no intercostal retractions CV: RRR, no MRGs Abdomen: Soft, non-tender; no masses or HSM ASA ([employer] Anesthesiology) Anesthesia Status: Class II Soft palate, fauces, uvula ASA Physical Status Classification: ASA 3 - Patient with moderate systemic disease with functional limitations ASSESSMENT AND PLAN: 1. Patient is a 65 y.o. female with above specified procedure planned. Expected Sedation/Anesthesia Type: Moderate Sedation 2. Procedure options, risks and benefits reviewed with Patient. Patient expresses understanding. 3. Consent has been signed: Yes documented in this encounter Miscellaneous Notes * Op Note - Don Hobson DO - 06/29/2025 12:20 PM EDT COLONOSCOPY PROCEDURE NOTE DATE OF PROCEDURE: 06/29/2025 SURGEON: Don Hobson Jr, DO PCP: Don Hobson Jr, DO BAG WORKER: None PREOPERATIVE DIAGNOSIS: Personal history of colon polyps POSTOPERATIVE DIAGNOSIS: 1. Sessile polyp at 75 cm 2. Sessile polyps x2 at 70 cm, with 1 cm diameter x1 3. Small polyp at 60 cm 4. Sessile polyps x1 at 40 cm approximately 1 cm diameter OPERATION: Colonoscopy with snare polypectomy and cold biopsies ANESTHESIA: Fentanyl 100 mcg plus Versed 8 mg ESTIMATED BLOOD LOSS: none COMPLICATIONS: None. SPECIMENS: yes HISTORY: The patient is a 65 y.o. year old female with history of above preop diagnosis. I explained the risk, benefits, expected outcome, and alternatives to the colonoscopy. Risks included but are not limited to bleeding, infection, respiratory distress, hypotension, and perforation of the colon and possibility of missing a lesion. The patient understands and is in agreement. Informed consent was obtained for the procedure, including sedation. Risks of perforation, hemorrhage, adverse drug reaction and aspiration were discussed. The patient was placed in the left lateral decubitus position. Based on the pre- procedure assessment, including review of the patient's medicalhistory, medications, allergies, and review of systems, she had been deemed to be an appropriate candidate for conscious sedation; she was therefore sedated with the medications listed above. The patient was monitored continuously with ECG tracing, pulse oximetry, blood pressure monitoring, and direct observations. A rectal examination was performed. The colonoscope was inserted into the rectum and advanced underdirect vision to the appendiceal orifice and terminal ileum. The quality of the colonic preparationwas good. A careful inspection was made as the colonoscope was withdrawn, including a retroflexed view of the rectum; findings and interventions are described below. Appropriate photodocumentation was obtained. Findings: Terminal ileum was not visualized and was: Not Assessed Cecum/Ascending colon: normal Transverse colon: Multiple polyps were noted in the transverse colon located at 75 cm, 70 cm x 3, and 60 cm x 1. One of the polyps 70 cm was > 1 cm diameter and all were removed with a polyp snare. The polyp at 60 cm was small and moved with cold biopsy. Descending/Sigmoid colon: No diverticulosis was noted. At 40 cm a 1 cm diameter polyp was noted andremoved with a hot polyp snare. Rectum/Anus: examined in normal and retroflexed positions and was some tiny internal hemorrhoids were noted without bleeding. No other masses or mucosal changes. Withdrawal Time was (minutes): 30 The colon was decompressed and the scope was removed. The patient tolerated the procedure well. Recommendations/Plan: Lifestyle and dietary modifications including: High-fiber, Mediterranean diet Medication changes: None F/U Biopsies F/U In Office: Regular visit Discussed with the family Colonoscopy Recall :3 year * Pre-Procedure Note - Don Hobson DO - 06/19/2025 10:55 AM EDT PRE-PROCEDURE ASSESSMENT NOTE: AIRWAY EVALUATION obesity ASA CLASSIFICATION Patient's ASA classification is class III - a patient with a severe systemic disease that limits activity but is not incapacitated. MALLAMPATI SCALE Patient's Mallampati score is Class II - soft palate, fauces, uvula. Assessment: Neurological alert and oriented Respiratory breath sounds present bilaterally Cardiac regular rate and rhythm Plan of Care Patient is appropriate candidate for moderate sedation Medications to be given fentanyl and midazolam documented in this encounter Plan of Treatment DateTypeDepartmentCare Team (Latest Contact Info)Abaxttlvlkz16/21/2025 2:00 PM EDTOffice Visit [facility] [address] [place] [address] 07/13/2025 11:45 AM EDTFollow Up Anticoagulation [facility] Medication Management [address] [place] [address] NameTypePriorityAssociated DiagnosesDate/TimeSurgical PathologyPathology and CytologyRoutine Screen for colon cancer 06/29/2025 1:11 PM EDTNameTypePriorityAssociated DiagnosesOrder ScheduleSurgical PathologyPathology and CytologyRoutine Screen for colon cancer Release Upon Ordering for 1 Occurrences starting 06/29/2025, 1 completedName PriorityAssociated DiagnosesDate/TimeCOLONOSCOPY DIAGNOSTIC / SCREENING Personal history of adenomatous and serrated colon polyps documented as of this encounter Goals GoalPatient Goal TypeAssociated ProblemsRecent ProgressPatient-Stated?Author NF Lashawn Lundberg LSW Note: Evaluation of progress towards goal: transfer to [facility] for med adjustments documented as of this encounter Procedures Procedure NamePriorityDate/TimeAssociated DiagnosisCommentsPR COLONOSCOPY FLX DX W/COLLJ SPEC WHEN PFRMD1 12:20 PM EDT Screen for colon cancer AR COLON CA SCRN NOT HI RSK IND06/29/2025 12:20 PM EDT Screen for colon cancer PROVATION FPDMFRJGQVUInadwec47/17/2025 11:45 AM EDT SDJIHAIDSBF61/17/2025 11:37 AM EDT documented in this encounter Results * Colonoscopy Report (06/29/2025 11:45 AM EDT)Specimen (Source)Anatomical Location / LateralityCollection Method / VolumeCollection TimeReceived Time Narrative SYSTEMGENERATED, DOCUMENTATION - 06/29/2025 11:45 AM EDT This order has been auto-finalized for image and report archival in PACs. *For full report details, please reach out to your physician. ??This image is visible to you in MyChart.* Authorizing ProviderResult TypeResult StatusDon Hobson DOIMG OR IMG ORDERABLES Final Result * Colonoscopy (06/29/2025 11:37 AM EDT)Specimen (Source)Anatomical Location / LateralityCollection Method / VolumeCollection TimeReceived Time06/29/2025 11:37 AM EDT Narrative PM CARDIOVASCULAR - 07/03/2025 10:50 AM EDT [facility] Patient Name: Noemi Caballero ?? Procedure Date No Time: 06/29/2025 ?? CSN : [id number] Date of : 1960 Admit Type: Outpatient Age: 65 Room: [place] [address] Gender: Female Note Status: Induction Machine Setter Override Attending MD: Don Hobson DO, Procedure: ? Colonoscopy Providers: ? Don Hobson DO Referring MD: ?Don Hobson DO Procedure: ? After I obtained informed consent, the scope was ? passed under direct vision. Throughout the procedure, ? the patient's blood pressure, pulse, and oxygen ? saturations were monitored continuously. The OLYMPUS ? PCF-H190DL # [id number] PEDIATRIC COLONOSCOPE was ? introduced through the anus and advanced to. Estimated Blood Loss: ?? Induction Machine Setter Override Don Hobson DO Number of Addenda: 0 Note Initiated On: 06/29/2025 11:37 AM Procedure Note Don Hobson DO - 07/03/2025 [facility] Patient Name: Noemi Caballero Procedure Date No Time: 06/29/2025 CSN : [id number] Date of : 1960 Admit Type: Outpatient Age: 65 Room: [place] [address] Gender: Female Note Status: Induction Machine Setter Override Attending MD: Don Hobson DO, Procedure: Colonoscopy Providers: Don Hobson DO Referring MD: Don Hobson DO Procedure: After I obtained informed consent, the scope was passed under direct vision. Throughout theprocedure, the patient's blood pressure, pulse, and oxygen saturations were monitored continuously. ThehowsimpleUN[facility] PCF-H190DL # [id number] PEDIATRIC COLONOSCOPE was introduced through the anus and advanced to. Estimated Blood Loss: Induction Machine Setter Override Don Hobson DO Number of Addenda: 0 Note Initiated On: 06/29/2025 11:37 AM Authorizing ProviderResult TypeResult StatusJoandrzej ROWEI PROCEDURE ORDERABLESEdited Result - FinalPerforming OrganizationAddressCity/State/ZIP Code Phone Number [facility] documented in this encounter Visit Diagnoses Diagnosis Adenomatous polyp of transverse colon- Primary Personal history of adenomatous and serrated colon polyps Screen for colon cancer Special screening for malignant neoplasms, colon Adenomatous polyp of transverse colon Adenomatous polyp of sigmoid colon Personal history of adenomatous and serrated colon polyps Adenomatous polyp of sigmoid colon documented in this encounter Administered Medications Medication OrderMAR ActionAction DateDoseRateSite sodium chloride 0.9 % flush 3 mL 3 mL, intravenous, As needed, line care, before and after each intermittent use, Starting on Wed06/25/25 at 1954 documented in this encounter Active and Recently Administered Medications Times are shown in EDT.Medication Order/ fentaNYL (SUBLIMAZE) injection (CANCELED) As needed, IV push over 2-5 minutes every 3 to 5 minutes until desired effect, Starting on Wed06/29/25 at 1225, Intra-op * 1225 (Given - Provider: Don Hobson DO) midazolam (VERSED) injection (CANCELED) As needed, Starting on Wed06/29/25 at 1227, Intra-op * 1227 (Given - Provider: Don Hobson DO) * 1229 (Given - Provider: Don Hobson DO) * 1231 (Given - Provider: Don Hobson DO) * 1234 (Given - Provider: Don Hobson DO) sodium chloride 0.9 % flush 3 mL 3 mL, intravenous, As needed, line care, before and after each intermittent use, Starting on Wed06/25/25 at 1954 * 1145 (NOV Hold - Provider: Automatic Transfer Provider - Reason: Patient not available) * 1145 (MAR Unhold - Provider: Automatic Transfer Provider) * 1220 (MAR Hold - Provider: Automatic Transfer Provider - Reason: Patient not available) * 1607 (MAR Unhold - Provider: Automatic Discharge Provider) documented in this encounter Additional Health Concerns AssessmentNoted TimePHQ-9 Depression Total Score: 12:54 PM EDT documented as of this encounter Care Teams Team MemberRelationshipSpecialtyStart DateEnd Date Don Hobson DO [address] [place] [address] PCP - General02/23/13 Che Sosa CCM Nurse - [facility]09/29/24documented as of this encounter
--- OUTSIDE RECORDS SUMMARY | 2025-06-29 12:30 | XMS_ITS | Encounter Summary ---
Author Organization [facility] [employer] [facility] tem Address [id number] [place] [address] Care Team Providers Care Grey Roll Man Name Role Phone Don Hobson DO Primary Care Provider [phone] Reason for Visit * Auth/CertSpecialtyDiagnoses / ProceduresReferred By ContactReferred To Contact Diagnoses Screen for colon cancer screening Procedures OR COLON CA SCRN NOT HI RSK IND OR COLONOSCOPY FLX DX W/COLLJ SPEC WHEN PFRMD COLONOSCOPY DIAGNOSTIC / SCREENING COLONOSCOPY DIAGNOSTIC / SCREENING Don Hobson DO [address] [place] [address] Phone: tel: fax: Referral IDStatusReasonStart DateExpiration DateVisits RequestedVisits [id number] Encounter Details DateTypeDepartmentCare Team (Latest Contact Info)Rdoakilimwp15/17/2025 12:30 PM EDT - 06/29/2025 1:30 PM EDTSurgery [facility] [address] [place] [id number] Don Hobson, DO [address] [place] [address] COLONOSCOPY DIAGNOSTIC / SCREENING [G0121 +1 more] Surgery Details Date/TimeStatusLocationORServicePatient ClassCase ClassCase TypeTrauma Case? 06/29/2025 12:30 PMPostedFREMONT ENDOSCOPYEndo 01[facility] Out[facility] SurgeryElectivePanel 1 ProcedureLRMount [facility] RegionWbee[facility] healthcare ClassComments COLONOSCOPY DIAGNOSTIC / SCREENINGN/AModerate SedationAnusClean Contaminated SurgeonSurgeon Don Cowart, Pitoastroenterologjustin documented in this encounter Social History Tobacco UseTypesPacks/DayYears UsedDateSmoking Tobacco: NeverSmokeless Tobacco: NeverAlcohol UseStandard Drinks/WeekCommentsNo0 (1 standard drink = 0.6 oz pure alcohol)[facility] UtilitiesAnswerDate RecordedIn the past 12 months has the electric, gas, oil, or water company threatened to shut off services in your home?No 05/09/2024Social Connection and Isolation PanelAnswerDate RecordedIn a typical week, how many times do you talk on the phone with family, friends, or neighbors?Three times a week05/09/2024How often do you get together with friends or relatives?Three times a week05/09/2024How often do you attend sabianism or buddhist services?Never05/09/2024o you belong to any clubs or organizations such as sabianism groups, unions, fraternal or athletic groups, or school groups?No 05/09/2024How often do you attend meetings of the clubs or organizations you belong to?Never05/09/2024re you , , , , never , or living with a partner?Tignggo1605/09/2024UDIT-CAnswerDate RecordedQ1: How often do you have a [...] care, and heating?Not hard at all05/06/2023HQ-2AnswerDate RecordedTotal Hyhdx939Finfillmore community medical center [facility] Occupational Health - Occupational Stress QuestionnaireAnswerDate RecordedDo you feel stress - tense, restless, nervous, or anxious, or unable to sleep at night because yourmind is troubled all the time - these days?Only a kszssj5012/07/2021Exercise Vital SignAnswerDate Recorded On average, how many [...] of a household?No 05/09/2024hildcareAnswerDate RecordedDo problems getting child advocate make it difficult for you to work [...] InformationValueDate RecordedSex Assigned at BirthNot on fileLegal PsjDixzjj61/06/2015 11:30 AM EDTGender IdentityNot on file Sexual OrientationNot on filedocumented as of this encounter Last Filed Vital Signs Vital SignReadingTime TakenCommentsBlood Ylaxpvuw329/7210 1:26 PM EDT Iixnu9048 1:26 PM SWAThqlqdngflo73.3 ??C (97.3 ??F)06/29/2025 11:59 AM EDTRespiratory Qyfs3358 1:26 PM EDTOxygen Vlgbpdsyhz34%06/29/2025 1:26 PM EDTInhaled Oxygen Concentration--Trtcfc11.9 kg (207 lb)06/29/2025 11:59 AM HFGRyzlvk242.1 cm (5' 5 )06/29/2025 11:59 AM EDTBody [...] 1 tablet (10 mg total) by mouth.02/04/2021 ndnxpsafeq-nxffyatbvz-fda-cod (FIORICET WITH CODEINE) 58-141-39-30 mg per capsule Take 1 capsule by [...] 1 TABLET IN THE MORNING AND AT ZZFLQIR8101/29/2025 propranoloL (INDERAL) 60 mg tablet Take 1 [...] 1 tablet Once Daily as directed by [facility] Medication Management 90 tablet zolpidem (AMBIEN) 10 mg tablet 12/06/2023 atorvastatin (LIPITOR) 80 mg tablet Indications:Mixed hyperlipidemiaTAKE 1 TABLET IN THE MORNING 90 tablet documented as of this encounter H&P Notes * Don Hobson DO - 06/29/2025 12:05 PM EDT HISTORY AND PHYSICAL INTERVAL NOTE: Noemi Dayna Caballero 1960 [id number] H&P reviewed. 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 qtakoxklxd-qbkwapvlqy-pii-cod (FIORICET WITH CODEINE) 79-868-21-30 mg per capsule Take 1 capsule bymouth [...] IN THE MORNING AND 1 CAPSULE BEFORE BMSCGMX854 capsule 3 levothyroxine (SYNTHROID, LEVOTHROID) 50 MCG [...] 1 tablet Once Daily as directed by [facility] Medication Management 90 tablet 3 zolpidem (AMBIEN) 10 mg tablet Allergies: Allergies Allergen Reactions Amoxicillin Hives [place] Confusion and Other (See Comments) COMA PT. SAYS SHE WENT INTO A COMA [place] Analogues Other (See Comments) COMA Penicillins Hives [...] Soft, non-tender; no masses or HSM ASA ([place] [employer] Anesthesiology) Anesthesia Status: Class II Soft [...] with depression Asthma 06/16/2016 Bipolar II disorder ([facility]) 12/17/2021 Cervical spondylosis with radiculopathy 12/04/2019 Chronic antral gastritis 06/02/2017 Chronic kidney disease, stage 3a ([facility]) 06/12/2021 Clotting disorder lupus GERD (gastroesophageal reflux disease) Glaucoma 11/02/2019 Right History of migraine headaches Hyperlipidemia Iron deficiency anemia 05/25/2017 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 altkwnihim-glnurojsbx-dbl-cod (FIORICET WITH CODEINE) 68-257-42-30 mg per capsule Take 1 capsule bymouth [...] IN THE MORNING AND 1 CAPSULE BEFORE BFCZVZW099 capsule 3 levothyroxine (SYNTHROID, LEVOTHROID) 50 MCG [...] 1 tablet Once Daily as directed by [facility] Medication Management 90 tablet 3 zolpidem (AMBIEN) 10 mg tablet Allergies: Allergies Allergen Reactions Amoxicillin Hives [place] Confusion and Other (See Comments) COMA PT. SAYS SHE WENT INTO A COMA [place] Analogues Other (See Comments) COMA Penicillins Hives [...] Soft, non-tender; no masses or HSM ASA ([place] [employer] Anesthesiology) Anesthesia Status: Class II Soft [...] Jr, DO PCP: Don Hobson Jr, DO INSURANCE CLAIMS EXAMINER: None PREOPERATIVE DIAGNOSIS: Personal history of colon [...] Plan of Treatment DateTypeDepartmentCare Team (Latest Contact Info)Fyydmxagnqw47/21/2025 2:00 PM EDTOffice Visit [facility] Physicians Internal Medicine - Family Medicine [address] [place] [address] 07/13/2025 11:45 AM EDTFollow Up Anticoagulation [facility] - [facility] Medication Management [address] [place] [address] NameTypePriorityAssociated DiagnosesDate/TimeSurgical PathologyPathology and CytologyRoutine Screen for colon cancer 06/29/2025 1:11 PM EDTNameTypePriorityAssociated DiagnosesOrder ScheduleSurgical PathologyPathology and CytologyRoutine Screen for colon cancer Release Upon Ordering for 1 Occurrences starting 06/29/2025, 1 completedName PriorityAssociated DiagnosesDate/TimeCOLONOSCOPY DIAGNOSTIC / SCREENING Personal history of adenomatous and serrated colon polyps documented as of this encounter Goals GoalPatient Goal TypeAssociated ProblemsRecent ProgressPatient-Stated?Author Lashawn Lucio LSW Note: Evaluation of progress towards goal: transfer to [facility] for med adjustments documented as of this encounter Procedures Procedure NamePriorityDate/TimeAssociated DiagnosisCommentsPR COLONOSCOPY FLX DX W/COLLJ SPEC WHEN PFRMD1 12:20 PM EDT Screen for colon cancer OR COLON CA SCRN NOT HI RSK IND06/29/2025 12:20 PM EDT Screen for colon cancer PROVATION FPFPNOMSJKKCgvocjt67/17/2025 11:45 AM EDT UWZYWALCZYN95/17/2025 11:37 AM EDT documented in this encounter [...] to you in MyChart.* Authorizing ProviderResult TypeResult StatusJoandrzej Hobson DOIMG OR IMG ORDERABLES Final Result * Colonoscopy (06/29/2025 11:37 AM EDT)Specimen (Source)Anatomical Location / LateralityCollection Method / VolumeCollection TimeReceived Time06/29/2025 11:37 AM EDT Narrative PM CARDIOVASCULAR - 07/03/2025 10:50 AM EDT [facility] Patient Name: Noemi Caballero ?? Procedure Date No Time: 06/29/2025 ?? CSN : [id number] Date of : 1960 Admit Type: Outpatient Age: 65 Room: [place] [address] Gender: Female Note Status: Machine Welder Override Attending MD: Don Hobson DO, Procedure: ? Colonoscopy Providers: ? Don Hobson DO Referring MD: ?Don Hobson DO Procedure: ? After I obtained informed consent, the scope was ? passed under direct vision. Throughout the procedure, ? the patient's blood pressure, pulse, and oxygen ? saturations were monitored continuously. The OLYMPUS ? PCF-H190DL # [id number] PEDIATRIC COLONOSCOPE was ? introduced through the anus and advanced to. Estimated Blood Loss: ?? Machine Welder Override Don Hobson DO Number of Addenda: 0 Note Initiated On: 06/29/2025 11:37 AM Procedure Note Don Hobson DO - 07/03/2025 [facility] Patient Name: Noemi Caballero Procedure Date No Time: 06/29/2025 CSN : [id number] Date of : 1960 Admit Type: Outpatient Age: 65 Room: [place] [address] Gender: Female Note Status: Machine Welder Override Attending MD: Don Hobson DO, Procedure: Colonoscopy Providers: Don Hobson DO Referring MD: Don Hobson DO Procedure: After I obtained informed consent, the scope was passed under direct vision. Throughout theprocedure, the patient's blood pressure, pulse, and oxygen saturations were monitored continuously. TheOLYMPUS PCF-H190DL # [id number] PEDIATRIC COLONOSCOPE was introduced through the anus and advanced to. Estimated Blood Loss: Machine Welder Override Don Hobson DO Number of Addenda: 0 Note Initiated On: 06/29/2025 11:37 AM Authorizing ProviderResult TypeResult StatusJoandrzej Hobson DOGI PROCEDURE ORDERABLESEdited Result - FinalPerforming OrganizationAddressCity/State/ZIP Code Phone Number [facility] documented in this encounter Visit Diagnoses Diagnosis Adenomatous polyp of transverse colon- Primary Personal history of adenomatous and serrated colon polyps Screen for colon cancer Special screening for malignant neoplasms, colon Adenomatous polyp of sigmoid colon Personal history of adenomatous and serrated colon polyps Screen for colon cancer Special screening for malignant neoplasms, colon documented in this encounter Administered Medications Medication OrderMAR ActionAction DateDoseRateSite fentaNYL (SUBLIMAZE) injection As needed, IV push over 2-5 minutes every 3 to 5 minutes until desired effect, Starting on Wed06/29/25 at 1225, Intra-op Given06/29/2025 12:25 PM XPT967 mcg midazolam (VERSED) injection As needed, Starting on Wed06/29/25 at 1227, Intra-op Given06/29/2025 12:34 PM EDT2 qrNbiij1706/29/2025 12:31 PM EDT2 naAkrhz9306/29/2025 12:29 PM EDT2 mg sodium chloride 0.9 % flush 3 mL [...] - Reason: Patient not available) * 1145 (NOV Unhold - Provider: Automatic Transfer Provider) * 1220 (NOV Hold - Provider: Automatic Transfer Provider - Reason: Patient not available) * 1607 (NOV Unhold - Provider: Automatic Discharge Provider) documented in this encounter Additional Health Concerns AssessmentNoted TimePHQ-9 Depression Total Score: 12:54 PM EDT documented as of this encounter Care Teams Team MemberRelationshipSpecialtyStart DateEnd Date Don Hobson DO [address] [place] [address] PCP - General02/23/13 Che Sosa [place] Nurse - [facility]09/29/24documented as of this encounter
--- OUTSIDE RECORDS SUMMARY | 2025-07-03 09:00 | XMS_ITS | Encounter Summary ---
Author Organization [facility] tem Address [id number] [address] [place] [address] Care Team Providers Care Dialer Name Role Phone Don Hobson Noreen BATEMAN Primary Care Provider [phone] Encounter Details DateTypeDepartmentCare Team (Latest Contact Info)Agqqhyqtapm07/21/2025 9:00 AM EDTFollow Up Anticoagulation [facility] - Pharmacy Medication Management [address] [place] [address] group home (current) use of 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 (Primary Dx) Social History Tobacco UseTypesPacks/DayYears UsedDateSmoking Tobacco: NeverSmokeless Tobacco: NeverAlcohol UseStandard Drinks/WeekCommentsNo0 (1 standard drink = 0.6 oz pure alcohol)[facility] UtilitiesAnswerDate RecordedIn the past 12 months has the [employer], gas, oil, or water [employer] threatened to shut off services in your home?No 05/09/2024Social Connection and Isolation PanelAnswerDate RecordedIn a typical week, how many times do you talk on the phone with family, friends, or neighbors?Three times a week05/09/2024How often do you get together with friends or relatives?Three times a week05/09/2024How often do you attend orthodox or baptism services?Never05/09/2024o you belong to any clubs or organizations such as orthodox groups, unions, fraternal or athletic groups, or school groups?No 05/09/2024How often do you attend meetings of the clubs or organizations you belong to?Never05/09/2024re you , , , , never , or living with a partner?Uonutgh5205/09/2024UDIT-CAnswerDate RecordedQ1: How often do you have a [...] care, and heating?Not hard at all05/06/2023HQ-2AnswerDate RecordedTotal Rzble143Finhighland ridge hospital [place] of Occupational Health - Occupational Stress QuestionnaireAnswerDate RecordedDo you feel stress - tense, restless, nervous, or anxious, or unable to sleep at night because yourmind is troubled all the time - these days?Only a jaxvsu1312/07/2021Exercise Vital SignAnswerDate Recorded On average, how many [...] a household?No 05/09/2024hildcareAnswerDate RecordedDo problems getting child attendant make it difficult for you to work [...] InformationValueDate RecordedSex Assigned at BirthNot on fileLegal SqzVfkpgt64/06/2015 11:30 AM EDTGender IdentityNot on file Sexual OrientationNot on filedocumented as of this encounter Progress Notes * Luz Marina De Santiago, [facility] - 07/03/2025 9:00 AM EDT 15 minute ybue-al-upql follow-up anticoagulation appointment. INR performed in office per protocol. INR 2.1 (goal range: 2.0-3.0). Patient reports: Taking warfarin dosing as documented. Missed or extra doses of warfarin: YES Held and boosted as instructed for colonoscopy Changes to medications: No Changes to lifestyle (diet / alcohol / smoking / activity): No Recent emergency department visit / hospitalization / health changes / new contraindication to current anticoagulant: YES Colonoscopy Wednesday-- had 6 polpys removed Signs/symptoms of bruising/bleeding or clotting or any intolerable adverse events: YES Bruising from Lovenox injection Patient reports when she moved her bowels just prior to appt she had bright red blood. Denied dizziness, lightheadedness, etc. Instructed to call Dr. Hobson given recent polp removal Upcoming procedures: No Anticoagulant prescription needed: No Seen referring provider in the last year Duration of therapy reviewed Patient [facility] pill [facility] and patient is agreeable forreferral to be sent: No Assessment: INR has returned to range. Stop Lovenox. Patient was instructed to call Dr. Hobson to discuss the blood in her stools prior to appt today. Discussed she should seek ER evaluation should this worsen or if she is having any dizziness, lightheaded, or new onset symptoms. She v/u and will call his office [place] Plan: Patient instructed to continue warfarin 2.5 mg Mon and 5 mg AOD. Check INR in 10 days(s). Patient verbalizes understanding of anticoagulant dosing instructions and information discussed. Dosing regimen, counseling, and follow-up appointment were provided to the patient. Patient reminded to call with questions or any medication changes. Patient instructed to seek medical attention if anymajor bleeding/bleeding that persists or worsens. Luz Marina De Santiago RPH 07/03/25 0900 Electronically signed by Luz Marina De Santiago [facility] at 07/03/2025 9:00 AM EDT documented in this encounter Plan of Treatment DateTypeDepartmentCare Team (Latest Contact Info)Hyvglktvbho96/21/2025 2:00 PM EDTOffice Visit [facility] Internal [facility] - Family Medicine [address] [place] [address] 07/13/2025 11:45 AM EDTFollow Up Anticoagulation [facility] - Pharmacy Medication Management [address] [place] [address] NamePriorityAssociated DiagnosesDate/TimeCOLONOSCOPY DIAGNOSTIC / SCREENING Personal history of adenomatous and serrated colon polyps documented as of this encounter Goals GoalPatient Goal TypeAssociated ProblemsRecent ProgressPatient-Stated?Author Lashawn Lucio LSW Note: Evaluation of progress towards goal: transfer to [facility] for med adjustments documented as of this encounter Procedures Procedure NamePriorityDate/TimeAssociated DiagnosisCommentsPOCT PROTIME / INR Trsjkbt2707/03/2025 8:51 AM EDT 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 documented in this encounter Results * (ABNORMAL) POCT Protime / INR (07/03/2025 8:51 AM EDT)ComponentValueRef Range Test MethodAnalysis TimePerformed AtPathologist SignatureINR2.1(A)0.8 - 1.2 MANUALLY TRANSCRIBED RESULTSSpecimen (Source)Anatomical Location / Laterality Collection Method / VolumeCollection TimeReceived Time07/03/2025 8:51 AM EDT Narrative Authorizing ProviderResult TypeResult StatusPromedica Pharmacy Medication ManagementPOINT OF CARE TEST ORDERABLESFinal ResultPerforming Organization AddressCity/State/ZIP CodePhone Number MANUALLY TRANSCRIBED RESULTS documented in this encounter Visit Diagnoses Diagnosis group home (current) use of 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- Primary Long-term (current) use of 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 documented in this encounter Additional Health Concerns AssessmentNoted TimePHQ-9 Depression Total Score: 12:54 PM EDT documented as of this encounter Care Teams Team MemberRelationshipSpecialtyStart DateEnd Date Don Hobson DO [address] [place] [address] PCP - General02/23/13 Che Sosa [facility] Nurse - Mao09/29/24documented as of this encounter
--- OUTSIDE RECORDS SUMMARY | 2025-07-03 10:00 | XMS_ITS | Encounter Summary ---
Author Organization [facility] Address [address] [place] [address] Care Team Providers Care Coat Repair Inspector Name Role Phone Don Hobson MD Primary Care Provider [phone] Reason for Visit * ReasonCommentsWell Women Visit Encounter Details DateTypeDepartmentCare Team (Latest Contact Info)Vxvuesrztqs03/21/2025 10:00 AM EDTOffice Visit [facility] [address] [place] [address] Kobi Latham DO [address] [place], [place] [id number] Well woman exam with routine gynecological exam; Breast cancer screening by mammogram; Postmenopausal state Social History Tobacco UseTypesPacks/DayYears UsedDateSmoking Tobacco: NeverSmokeless Tobacco: NeverAlcohol UseStandard Drinks/WeekCommentsNever0 (1 standard drink = 0.6 oz pure alcohol)caffeine: 1-2 cups per dayEducationAnswerDate RecordedWhat is the highest level of school you have completed or the highest degree you have received?High school guuykiup86/29/2023CommentsNoSex and Gender InformationValueDate RecordedSex Assigned at VctnxRnfmiy80/10/2023 10:15 AM EDT Legal WosTncpyo67/15/2023 6:48 PM EDTGender UvatfjbkZghzhe52/15/2023 6:48 PM EDT Sexual OrientationNot on fileOccupationIndustryJob Start DateJob End Date DisabledNot on fileNot on fileNot on filedocumented as of this encounter Last Filed Vital Signs Vital SignReadingTime TakenCommentsBlood Uydfbawj537/801 10:07 AM EDT Pulse--Temperature--Respiratory Rate--Oxygen Saturation--Inhaled Oxygen Concentration--Idylpq64.8 kg (206 lb 12.8 oz)07/03/2025 10:07 AM EDTHeight--Body Mass Index34.41003/23/2025 11:19 AM EDTdocumented in this encounter Plan of Treatment DateTypeDepartmentCare Team (Latest Contact Info)Yepovmdhjvf38/14/2025 10:00 AM ESTOffice Visit [facility] [address] [facility] [address] [place] [address] Kurt Levin MD [address] [place] [phone] 07/15/2026 10:00 AM ESTProcedure Visit [facility] [address] [place] [address] Kobi Latham DO [address] [place] [address] NameTypePriorityAssociated DiagnosesOrder ScheduleBilateral screening mammogram ImagingRoutine Breast cancer screening by mammogram Expected: 07/03/2025, Expires: 09/02/2026DEXA bone densityImagingRoutine Postmenopausal state Expected: 07/03/2025 (Approximate), Expires: 07/03/2026THIN PREP TIS PAP AND HR HPV DNAPathology and CytologyRoutine Well woman exam with routine gynecological exam Ordered: 07/03/2025documented as of this encounter Visit Diagnoses Diagnosis Well woman exam with routine gynecological exam Routine gynecological examination Breast cancer screening by mammogram Postmenopausal state Asymptomatic postmenopausal status (age-related) (natural) documented in this encounter Care Teams Team MemberRelationshipSpecialtyStart DateEnd Date Don Hobson MD PCP - GeneralInternal Jkydzqvs34/10/23documented as of this encounter
--- OUTSIDE RECORDS SUMMARY | 2025-07-03 12:18 | XMS_ITS | Encounter Summary ---
Author Organization [employer] [facility] tem Address [id number] [address] [place] [address] Care Team Providers Care Loss Prevention Representative Name Role Phone Don Hobson Primary Care Provider [phone] Encounter Details DateTypeDepartmentCare Team (Latest Contact Info)Fppzehrlrem80/13/2025Telephone [facility] [address] [place] [address] Chel Baugh CMA Social History Tobacco UseTypesPacks/DayYears UsedDateSmoking Tobacco: NeverSmokeless Tobacco: NeverAlcohol UseStandard Drinks/WeekCommentsNo0 (1 standard drink = 0.6 oz pure alcohol)[facility] UtilitiesAnswerDate RecordedIn the past 12 months [...] times a week05/09/2024How often do you attend lutheran or restoration services?Never4Do you belong to any clubs or organizations such as lutheran groups, unions, fraternal or athletic groups, or school groups?No 05/09/2024How often do you attend meetings of the clubs or organizations you belong to?Never4Are you , , , , never , or living with a partner?Gysgzcn57/27/2024AUDIT-CAnswerDate RecordedQ1: How often do you have a drink containing alcohol?Never12/07/2021Q2: How many drinks containing alcohol do you have on a typical day when you are drinking? Patient does not drink12/07/2021Q3: How often do you have six or more drinks on one occasion?Never2Overall Financial Resource Strain (CARDIA)AnswerDate RecordedHow hard is it for you to pay for the very basics like food, housing, medical care, and heating?Not hard at all05/06/2023HQ-2AnswerDate RecordedTotal Laxzs091Finspanish fork hospital [place] of Occupational Health - Occupational Stress QuestionnaireAnswerDate RecordedDo you feel stress - tense, restless, nervous, or anxious, or unable to sleep at night because yourmind is troubled all the time - these days?Only a enonro3512/07/2021Exercise Vital SignAnswerDate Recorded On average, how many [...] a household?No 05/09/2024hildcareAnswerDate RecordedDo problems getting child care teacher make it difficult for you to work [...] InformationValueDate RecordedSex Assigned at BirthNot on fileLegal VbfTqegoh13/06/2015 11:30 AM EDTGender IdentityNot on file Sexual OrientationNot on filedocumented as of this encounter Miscellaneous Notes * Telephone Encounter - Chel Baugh CMA - 06/25/2025 12:26 PM EDT Pt stated her colonoscopy prep wasn't called in to pharmacy as of yet. That will go to [facility] in [place]. Thank you. * Telephone Encounter - Chel Baugh CMA - 06/25/2025 12:26 PM EDT Pt was notified of RX being sent in. documented in this encounter Plan of Treatment DateTypeDepartmentCare Team (Latest Contact Info)Mqlbjjjamha59/21/2025 2:00 PM EDTOffice Visit [facility]icians Internal Medicine - Family Medicine [address] [place] [address] 07/13/2025 11:45 AM EDTFollow Up Anticoagulation [facility] - Pharmacy Medication Management [address] [place] [address] NamePriorityAssociated DiagnosesDate/TimeCOLONOSCOPY DIAGNOSTIC / SCREENING Personal history of adenomatous and serrated colon polyps documented as of this encounter Goals GoalPatient Goal TypeAssociated ProblemsRecent ProgressPatient-Stated?Author Lashawn Lucio LSW Note: Evaluation of progress towards goal: transfer to [facility] for med adjustments documented as of this encounter Visit Diagnoses Not on filedocumented in this encounter Additional Health Concerns AssessmentNoted TimePHQ-9 Depression Total Score: 12:54 PM EDT documented as of this encounter Care Teams Team MemberRelationshipSpecialtyStart DateEnd Date Don Hobson DO [address] [place] [address] PCP - General02/23/13 Che Sosa CCM [facility]09/29/24documented as of this encounter
--- OUTSIDE RECORDS SUMMARY | 2025-07-03 12:18 | XMS_ITS | Encounter Summary ---
Author Organization [employer] [facility] tem Address [id number] [address] [place] [address] Care Team Providers Care Field Artillery Cannoneer Name Role Phone Don Hobson Primary Care Provider [phone] Encounter Details DateTypeDepartmentCare Team (Latest Contact Info)Srnzbyvqnhc03/21/2025Telephone [facility] Internal Medicine - Family Medicine [address] [place] [address] Rosario Ferguson CMA Social History Tobacco UseTypesPacks/DayYears UsedDateSmoking Tobacco: NeverSmokeless Tobacco: NeverAlcohol UseStandard Drinks/WeekCommentsNo0 (1 standard drink = 0.6 oz pure alcohol)[facility] UtilitiesAnswerDate RecordedIn the past 12 months [...] times a week05/09/2024How often do you attend shinto or tenriism services?Never4Do you belong to any clubs or organizations such as shinto groups, unions, fraternal or athletic groups, or school groups?No 05/09/2024How often do you attend meetings of the clubs or organizations you belong to?Never4Are you , , , , never , or living with a partner?Kaaqtgq75/27/2024AUDIT-CAnswerDate RecordedQ1: How often do you have a [...] care, and heating?Not hard at all05/06/2023HQ-2AnswerDate RecordedTotal Muato863Finsteward health care system [place] of Occupational Health - Occupational Stress QuestionnaireAnswerDate RecordedDo you feel stress - tense, restless, nervous, or anxious, or unable to sleep at night because yourmind is troubled all the time - these days?Only a jmmhax5012/07/2021Exercise Vital SignAnswerDate Recorded On average, how many [...] household?No 05/09/2024hildcareAnswerDate RecordedDo problems getting child care leader make it difficult for you to work [...] InformationValueDate RecordedSex Assigned at BirthNot on fileLegal PmzVbucss44/06/2015 11:30 AM EDTGender IdentityNot on file Sexual OrientationNot on filedocumented as of this encounter Miscellaneous Notes * Telephone Encounter - Rosario Ferguson CMA - 07/03/2025 9:19 AM EDT Patient came in this morning and is having a food amount of blood in the toilet. She had a colonoscopy on Wednesday. Is this something she needs to worry about. documented in this encounter Plan of Treatment DateTypeDepartmentCare Team (Latest Contact Info)Lefemspmktj18/21/2025 2:00 PM EDTOffice Visit [facility] Internal Medicine - Family Medicine [address] [place] [address] 07/13/2025 11:45 AM EDTFollow Up Anticoagulation [facility] - Pharmacy Medication Management [address] [place] [address] NamePriorityAssociated DiagnosesDate/TimeCOLONOSCOPY DIAGNOSTIC / SCREENING Personal history of adenomatous and serrated colon polyps documented as of this encounter Goals GoalPatient Goal TypeAssociated ProblemsRecent ProgressPatient-Stated?Author Lashawn Lucio LSW Note: Evaluation of progress towards goal: transfer to [facility] for med adjustments documented as of this encounter Visit Diagnoses Not on filedocumented in this encounter Additional Health Concerns AssessmentNoted TimePHQ-9 Depression Total Score: 12:54 PM EDT documented as of this encounter Care Teams Team MemberRelationshipSpecialtyStart DateEnd Date Don Hobson DO [address] [place] [address] PCP - General02/23/13 Che Sosa [facility]09/29/24documented as of this encounter
--- OUTSIDE RECORDS SUMMARY | 2025-07-03 12:18 | XMS_ITS | Encounter Summary ---
Author Organization [employer] tem Address [id number] [address] [place] [address] Care Team Providers Care Marketing Admin Name Role Phone Don Hobson DO Primary Care Provider [phone] Encounter Details DateTypeDepartmentCare Team (Latest Contact Info)Mjoizbradms24/13/2025Orders Only [facility] [address] [place] [address] Don Hobson DO [address] [place] [address] Personal history of adenomatous and serrated colon polyps (Primary Dx) Social History Tobacco UseTypesPacks/DayYears UsedDateSmoking Tobacco: NeverSmokeless Tobacco: NeverAlcohol UseStandard Drinks/WeekCommentsNo0 (1 standard drink = 0.6 oz pure alcohol)[facility] UtilitiesAnswerDate RecordedIn the past 12 months has the [place], gas, oil, or water [employer] threatened to shut off services in your home?No 05/09/2024Social Connection and Isolation PanelAnswerDate RecordedIn a typical week, how many times do you talk on the phone with family, friends, or neighbors?Three times a week05/09/2024How often do you get together with friends or relatives?Three times a week05/09/2024How often do you attend taoist or oriental orthodox services?Never05/09/2024o you belong to any clubs or organizations such as taoist groups, unions, fraternal or athletic groups, or school groups?No 05/09/2024How often do you attend meetings of the clubs or organizations you belong to?Never05/09/2024re you , , , , never , or living with a partner?Jjgkccu9105/09/2024UDIT-CAnswerDate RecordedQ1: How often do you have a [...] care, and heating?Not hard at all05/06/2023HQ-2AnswerDate RecordedTotal Ywkpf987Fincastleview hospital [place] of Occupational Health - Occupational Stress QuestionnaireAnswerDate RecordedDo you feel stress - tense, restless, nervous, or anxious, or unable to sleep at night because yourmind is troubled all the time - these days?Only a argjkq3512/07/2021Exercise Vital SignAnswerDate Recorded On average, how many [...] or from getting things needed for daily living?12/07/2021Housing InstabilityAnswerDate RecordedAre you worried or concerned that in the next two months you may not have stable housing that you own, rent or stay in as a part of a household?No 05/09/2024hildcareAnswerDate RecordedDo problems getting child guidance counselor make it difficult for you to work [...] InformationValueDate RecordedSex Assigned at BirthNot on fileLegal GtnVqffmi17/06/2015 11:30 AM EDTGender IdentityNot on file Sexual OrientationNot on filedocumented as of this encounter Plan of Treatment DateTypeDepartmentCare Team (Latest Contact Info)Tcdlrcejduz33/21/2025 2:00 PM EDTOffice Visit [facility] Physicians Internal Medicine - Family Medicine [address] [place] [address] 07/13/2025 11:45 AM EDTFollow Up Anticoagulation [facility] - Pharmacy Medication Management [address] [place] [address] NamePriorityAssociated DiagnosesDate/TimeCOLONOSCOPY DIAGNOSTIC / SCREENING Personal history of adenomatous and serrated colon polyps documented as of this encounter Goals GoalPatient Goal TypeAssociated ProblemsRecent ProgressPatient-Stated?Author Lashawn Lucio LSW Note: Evaluation of progress towards goal: transfer to [facility] for med adjustments documented as of this encounter Visit Diagnoses Diagnosis Personal history of adenomatous and serrated colon polyps- Primary documented in this encounter Additional Health Concerns AssessmentNoted TimePHQ-9 Depression Total Score: 12:54 PM EDT documented as of this encounter Care Teams Team MemberRelationshipSpecialtyStart DateEnd Date Don Hobson DO [address] [address] PCP - General02/23/13 Che Sosa [facility] Nurse - [facility]09/29/24documented as of this encounter
--- OUTSIDE RECORDS SUMMARY | 2025-07-03 12:18 | XMS_ITS | Clinical Summary ---
Author Organization [employer] tem Address [id number] [address] [place] [address] Care Team Providers Care Border Inspector Name Role Phone Don Hobson Primary Care Provider [phone] Allergies Active AllergyReactionsCriticalityNoted DateCommentsAmoxicillinHivesHigh 12/28/20247846Hxzupreunbav42/28/2022ErythromycinAbnormal LczgmmstZtp88/15/2017 LithiumConfusion,Other (See Comments)High11/02/2016 COMA PT. SAYS SHE WENT INTO A COMA [place] AnaloguesOther (See Comments)High01/25/2017 COMA Eiegkkexy65/05/2019 Hematuria MilnacipranOther (See Comments)07/04/2021 Other reaction(s): Unknown XdnpaemesunDfrqdTscqrg07/18/7241HyonladuraWhpfvrnaZikytv58/15/2017 Per care everywhere, causes swelling ORAL ONLY--SWELLING WITH LONG TIME USE Other Reaction(s): Unknown VcyazrjtfvLheamFsyfzi35/15/2017 Chest Pain QjgrrpvmyEelugGjzifk30/15/2017VortioxetineNausea And IejfsazyVdajqz85/30/2018 Other reaction(s): GI Intolerance Medications MedicationSigDispense QuantityRefillsLast FilledStart DateEnd DateStatus aspirin 81 mg chewable tablet Chew 1 tablet (81 mg total) and swallow.Active busPIRone (BUSPAR) 10 mg tablet Take 1 tablet (10 mg total) by mouth.02/04/2021ctive cholecalciferol, vitamin D3, 5,000 units tablet 1 tablet (5,000 Units total).Active gabapentin (NEURONTIN) 300 mg capsule 1 capsule (300 mg total).Active galcanezumab-gnlm (EMGALITY PEN) 120 mg/mL pen injector Active buPROPion XL (WELLBUTRIN XL) 300 mg 24 hr tablet Active QUEtiapine (SEROquel) 400 mg tablet Take 1 tablet (400 mg total) by mouth nightly.08/19/2022ctive naltrexone (REVIA) 50 mg tablet Take 1.5 mg by mouth in the morning.Active zolpidem (AMBIEN) 10 mg tablet 12/06/2023ctive propranoloL (INDERAL) 60 mg tablet Take 1 tablet (60 mg total) by mouth in the morning.Active BIOTIN ORAL Take 1 tablet by mouth in the morning and at bedtime.Active nystatin (NYSTOP) powder Indications:An rash of groinAPPLY 1 APPLICATION TOPICALLY TWICE A DAY NEEDED (RASH OR ITCHING) 60 g ctive diclofenac sodium (VOLTAREN) 1 % gel Indications:Generalized osteoarthritisAPPLY 2 GM TOPICALLY IN THE MORNING, AT NOON, IN THE EVENING, AND BEFORE BEDTIME 300 g ctive folic acid (FOLVITE) 1 mg tablet Indications:Iron deficiency anemia, unspecified iron deficiency anemia typeTAKE 1 TABLET DAILY 90 tablet ctive albuterol (PROVENTIL HFA;VENTOLIN HFA) 90 mcg/actuation inhaler Indications:Mild persistent asthma without complicationUSE 2 INHALATIONS EVERY 6 HOURS NEEDED FOR WHEEZING 17 g 602/5Active fluticasone propion-salmeteroL (ADVAIR HFA) 230-21 mcg/actuation inhaler Indications:Mild persistent asthma without complicationUSE 2 INHALATIONS TWICE A DAY 36 g 3045Active icosapent ethyL (VASCEPA) 1 gram capsule Indications:Mixed hyperlipidemiaTAKE 1 CAPSULE IN THE MORNING AND 1 CAPSULE BEFORE BEDTIME 180 capsule 304/5Active albuterol (PROVENTIL,VENTOLIN) 2.5 mg /3 mL (0.083 %) nebulizer solution Indications:Mild persistent asthma without complicationInhale 3 mL (2.5 mg total) by nebulization 4 (four) times a day. 75 mL 1045Active QUEtiapine (SEROquel) 50 mg tablet Take 1 tablet (50 mg total) by mouth nightly.5Active baclofen (LIORESAL) 10 mg tablet Indications:Cervical spondylosis with radiculopathyTAKE 1 TABLET FOUR TIMES A DAY 360 tablet 5Active famotidine (PEPCID) 40 mg tablet Indications:Gastroesophageal reflux disease, unspecified whether esophagitis presentTAKE 1 TABLET IN THE MORNING 90 tablet 5Active UBRELVY 100 mg tablet Take 1 tablet by mouth./6Active yqskawiyzi-pjudpktigp-cub-cod (FIORICET WITH CODEINE) 55-673-12-30 mg per capsule Take 1 capsule by mouth every 6 (six) hours as needed.5Active verapamiL (CALAN) 80 mg tablet Take 1 tablet (80 mg total) by mouth in the morning./6Active pantoprazole (PROTONIX) 40 mg EC tablet Indications:Gastroesophageal reflux disease, unspecified whether esophagitis presentTake 1 tablet (40 mg total) by mouth every morning before breakfast. TAKE 1 TABLET IN THE MORNING AND AT KQVLCEK36/19/2025Active levothyroxine (SYNTHROID, LEVOTHROID) 50 MCG tablet Indications:Hypothyroidism, unspecified typeTake 1 tablet (50 mcg total) by mouth every morning. 90 tablet 5Active montelukast (SINGULAIR) 10 mg tablet Indications:Mild persistent asthma without complicationTAKE 1 TABLET DAILY 90 tablet 5Active warfarin (COUMADIN) 5 mg tablet Indications:Lupus anticoagulant disorderTake 1/2 to 1 tablet Once Daily as directed by [facility] Medication Management 90 tablet 5Active valsartan (DIOVAN) 80 mg tablet Indications:Essential hypertensionTAKE 1 TABLET DAILY AT NOON 90 tablet 5Active metoclopramide (REGLAN) 10 mg tablet Indications:Gastroesophageal reflux disease, unspecified whether esophagitis presentTAKE 1 TABLET IN THE MORNING AND 1 TABLET BEFORE BEDTIME 180 tablet 5Active enoxaparin (LOVENOX) 100 mg/mL syringe Indications:Lupus anticoagulant disorder,Personal history of DVT (deep vein thrombosis)Inject 1 mL (100 mg total) under the skin Every 12 (twelve) hours. 20 mL 5Active atorvastatin (LIPITOR) 80 mg tablet Indications:Mixed hyperlipidemiaTAKE 1 TABLET IN THE MORNING 90 tablet 5Active cyanocobalamin 1000 MCG tablet Indications:Cobalamin deficiencytake 1 tablet by mouth every morning 90 tablet /Discontinued(Patient Stopped On Own) ferrous sulfate (FeroSuL) 325 (65 FE) mg tablet Indications:Iron deficiency anemia due to chronic blood lossTake 1 tablet (325 mg total) by mouth in the morning and 1 tablet (325 mg total) in the evening. Take with meals. 180 tablet /Discontinued(Patient Stopped On Own) atorvastatin (LIPITOR) 80 mg tablet Indications:Mixed hyperlipidemiaTAKE 1 TABLET IN THE MORNING 90 tablet Discontinued [id number] zpb-FfLu-UFz-asb-C (PLENVU) 140-9-5.2 gram powder in packet, sequential Indications:Personal history of adenomatous and serrated colon polypsMix and take Dose 1 packet the evening prior to procedure, and mix and take Dose 2 packet 4 hours prior to the procedure 3 packet Discontinued(Therapy completed) Active Problems Patient Care Coordination No te Formatting of this note migh t be different from the original. HTN and Asthma Care Plan Patient barriers to better managing their health include: Physical limitations including reduced strength Nurse to instruct on: the purpose of your medications and the importance of adherence -SN assisting in med refill on Vit B12. SC, RN 05/10/24 the importance of your care plan the importance of preventative screenings and what they mean to your health -discussed colonoscopy SA, RN -discussed tdap 01/25/25 SA, RN -discussed vaccines 03/09/25 SA, RN, 04/23/25 SA, RN -discussed upcoming colonoscopy 05/25/25 SA, RN proper use of your blood pressure meter, inhaler, pulse oximeter, and rescue medication -12/28/24 SA, RN -pt using inhaler PRN 01/25/25 SA, RN -discussed neb tx for asthma 03/09/25 SA, RN, 04/23/25 SA, RN your Hypertension and Asthma, its diagnosis and treatment -Discussed recent medication change and hypertension. Mailed htn action plan. 04/07/24 , TENTERING MACHINE FEEDER -Reviewed recent BP since BP med changes. Discussed need for refill on Valsartan. SN encouraged continued monitoring. 08/02/24 , TENTERING MACHINE FEEDER -Reviewed recent BP readings since adding in Valsartan 80 mg at noon. TE sent to PCP. 08/17/24 AMBERLY, TENTERING MACHINE FEEDER -Discussed directions on taking Valsartan. 08/18/24 , TENTERING MACHINE FEEDER -Reviewed recent BP readings. Reviewed hypertensive emergency. 09/01/24 , TENTERING MACHINE FEEDER -Reviewed recent BP readings and when to report to ER. Discussed patient increasing Reglan 10 mg from BID to TID. 09/07/24 AMBERLY, TENTERING MACHINE FEEDER the importance of recognizing blood spots in eyes, blurry vision, clammy skin, confusion, depression, dizziness, facial flushing, fatigue, and shortness of breath as a S&S of your Hypertension -discussed 09/29/24 , RN, 04/23/25 , RN -discussed recent BP readings 09/29/24 , RN -reviewed. Recent BP readings improved 11/01/24 SA, RN, 01/25/25 , RN -patient monitoring bp daily, discussed proper technique 03/09/25 , RN the importance of recognizing chest pains, chest tightness, increasing cough, shortness of breath, and wheezing as a S&S of your Asthma -pt reports improved SOB -discussed weather changes and sx 12/28/24 , RN Nurse to assist in: scheduling your appointments, as needed setting a goal to address risk of falling, continue respiratory treatments, continue with current treatment plans, create a safe home environment, do regular physical activity, get a blood pressure meter 04/07/24 AMBERLY, TENTERING MACHINE FEEDER, get enough sleep, and maintain oxygen levels -SN discussed BP monitoring, obtained readings and reported to PCP office. IDA, RN 08/28/24 Patient to verbalize understanding of: the importance of your care plan keeping a written list of your medications preventative screenings and what they mean to your health -12/28/24 , RN, your medications and the importance of adherence monitoring blood pressure 04/07/24 AMBERLY, TENTERING MACHINE FEEDER, 06/16/24 AMBERLY TENTERING MACHINE FEEDER, 09/29/24 SA, RN, 04/23/25 SA, RN monitoring heart rate monitoring oxygen levels your Hypertension, its diagnosis, process and treatment 04/07/24 MCKAY GAMING your Asthma, its diagnosis, process and treatment the importance of recognizing blood spots in eyes, blurry vision, clammy skin, confusion, depression, dizziness, facial flushing, fatigue, and shortness of breath as a S&S of your Hypertension the importance of recognizing chest pains, chest tightness, increasing cough, shortness of breath, and wheezing as a S&S of your Asthma -discussed 04/23/25 SA RN -reviewed providers note on recent PFTs 09/29/24 KALEIGH TURNER Patient to commit to: address risk of falling continue respiratory treatments continue with current treatment plans create a safe home environment do regular physical activity get a blood pressure meter 04/07/24 MCKAY GAMING get enough sleep maintain oxygen levels reduce pain Anemia Care Plan Nurse to instruct on: your Anemia, its diagnosis and treatment the importance of recognizing cold hands and feet, dizziness or lightheadedness, heart palpitations, muscle cramps, pale/yellowish skin, rapid or irregular heartbeat, shortness of breath, and tingling sensation in the hands or feet as a S&S of your Anemia -Reviewed s/s of anemia. 06/16/24 MCKAY GAMING Patient to verbalize understanding of: your Anemia, its diagnosis, process and treatment the importance of recognizing cold hands and feet, dizziness or lightheadedness, heart palpitations, muscle cramps, pale/yellowish skin, rapid or irregular heartbeat, shortness of breath, and tingling sensation in the hands or feet as a S&S of your Anemia Hyperlipidemia Care Plan Nurse to instruct on: your Hyperlipidemia, its diagnosis and treatment -Discussed PCP recommendation on starting Vascepa. 07/28/24 MCKAY GAMING the importance of recognizing dietary intake as a S&S of your Hyperlipidemia Patient to verbalize understanding of: your Hyperlipidemia, its diagnosis, process and treatment the importance of recognizing dietary intake as a S&S of your Hyperlipidemia DM Care Plan: [03/09/2025] RN Added: Patient barriers to better managing their health include: Patient lives with no one Nurse to instruct on: proper use of your glucometer your Diabetes, its diagnosis and treatment the importance of recognizing blurry vision, tingling, pain, or numbness in the hands/feet (type 2), vision changes that seem to fluctuate, headaches, frequent urination, and extreme fatigue as a S&S of your Diabetes -discussed sx 04/23/25 KALEIGH TURNER Nurse to assist in: setting a goal to check blood glucose, maintain medication compliance, measure HbA1c, get enough sleep, get a glucometer/blood glucose meter, and do regular physical activity -discussed dietitian appt 03/09/25 . RN -discussed foot care 04/23/25 SA RN Patient to verbalize understanding of: monitoring HbA1c 03/09/25 KALEIGH TURNER monitoring blood glucose your Diabetes, its diagnosis, process and treatment the importance of recognizing blurry vision, tingling, pain, or numbness in the hands/feet (type 2), vision changes that seem to fluctuate, headaches, frequent urination, and extreme fatigue as a S&S of your Diabetes -discussed new diagnosis and complications 03/09/25 KALEIGH TURNER Patient to commit to: check blood glucose maintain medication compliance measure HbA1c increase joint mobility and range of motion get enough sleep get a glucometer/blood glucose meter do regular physical activity 2023 Wellness Goals d/c 09/29/24 KALEIGH TURNER Over the next 12 months, Patient will go to appointments with: Lathe Scalper Operator Dentist Carbonizer Tester Primary Care Provider-completed 05/09/24 KALEIGH PRIETO Over the next 12 months, Patient will complete the following tests, immunizations, and preventativescreenings: Annual Wellness Visit-completed 05/09/24 KALEIGH PRIETO Tdap Vaccine Pap Smear COVID-19 Vaccination Eye Exam Flu vaccine 05/14/2024 Lab Work-completed 12/09/23 KALEIGH PRIETO 2023 Education 03/03/24 created CP, educated on CCM program, completed med rec, mailed CP letter. KALEIGH PRIETO 05/10/24 reinforced PCP OV orders. KALEIGH PRIETO 2024 Wellness Goals: [09/29/2024] RN Added: Over the next 12 months, Patient will go to appointments with: Neurologist 01/05/2025 KALEIGH TURNERplater helper Provider 05/09/2025 Benzene Operator Over the next 12 months, Patient will complete the following tests, immunizations, and preventativescreenings: Annual Wellness Visit 05/09/2025 COVID-19 Vaccination 05/28/2025 Depression Screening 07/20/2025 Pap Smear 07/20/2025 Tdap Vaccine 05/28/2025 Flu vaccine 05/28/20252024 Self Care Goals: -pt denies any self care goals 2024 Edcuation: -discussed neuro appt, new med, side effects and constipation 01/25/25 KALEIGH TURNER ProblemNoted DateDiagnosed DateAdenomatous polyp of transverse colon06/29/2025 Adenomatous polyp of sigmoid colon06/29/2025Personal history of adenomatous and serrated colon jfwxnv2006/19/2025Obesity, exvtem5801/29/2025hronic deep vein thrombosis (DVT) of proximal vein of lower extremity, unspecified laterality 05/09/2024ipolar II /17/2023Spondylosis of lumbar region without myelopathy or vkqkugxhaxcro23/17/2023astro-esophageal reflux disease without tcpjpatanhh01/17/0818Haaqsjggifhmnz72/17/2023ilateral zpfkyhiq60/17/2023 Degeneration of lumbar intervertebral disc11/23/2022erebrovascular accident (CVA)05/20/2022resence of vena cava cjoyle1005/20/20223243Olcvwyijjplfsgf65/07/2022 Fibromyalgia, fltnnis8605/20/20221650Pvvonvmdyizp43/07/6045Hkcbxrstizmrxa08/07/2022 Generalized qaylagtnwapjfp42/07/2022Hypothyroidism due to Cristi's artvmaswxrw76/07/2022ervical stenosis of spinal canal12/08/2021ltered mental tesjim7212/07/2021Long term (current) use of rqfqtvvfezmfrn41/14/2022olypharmacy 1498Rbrrswvb15/16/2022History of 2019 novel coronavirus disease (COVID-19) 10/29/20212592Tzgcqruy91/24/2022Refractory migraine with aura04/29/2021Occipital pbzpymnmt00/17/2021Cognitive owblpqiari71/17/2021ervical spondylosis with rzeohytpmuhlj36/23/8815Jtkpfsol54/20/1143Yidmkabf63/05/2019Thoracic spinal rijuhlmz82/12/2019 Overview (05/20/2022): Added automatically from request for surgery [id number] Obesity (BMI 30.0-34.9)02/15/2019Chronic aopvccni51/11/2019Primary osteoarthritis of right hip08/30/2018Panic disorder with /24/2018 Generalized anxiety acdearnu55/24/2018Lumbar dlxkybbpbiaql52/03/2018 Osteoarthritis of left hip11/09/2017 Overview (05/20/2022): Last Assessment & Plan: POD # 2 - Pt HD stable [...] - Cr 1.29. Seen by Dr. Arguello ([facility]) this morning and patient to follow-up for repeat labs with PCP as well. Patient states understanding. - Mobilize, WBAT, Anterior Hip Precautions - Cont bowel regimen - Maintain dressing x 7 days post op then change Opsite dressing and maintain until follow-up appointment, may shower - PT following - Ortho stable, plan for discharge today - [facility] for medical management, appreciate care - [...] the bed elevated and to limit narcotics. Chronic antral zqfbeyrqw39/20/2017Acute metabolic ftrnemrwevwdqt17/15/2017Mild persistent hixkgd7606/16/2016Acquired blindness of one eye01/15/2016Other optic atrophy, right eye01/15/2016Iron deficiency fgtntq7504/12/2014Personal history of DVT (deep vein thrombosis)09/05/2013Lupus anticoagulant hgsytaaw01/18/2013 Systemic lupus ogxtwjxhozrly43/16/2013 Resolved Problems ProblemNoted DateDiagnosed DateResolved DateSyndrome of inappropriate vasopressin /6917Dlrklv83/14/202203/History of fall/tage 3a chronic kidney uqjobvu28/ Medgsybcdxzgfnd33 Encounters DateTypeDepartmentCare HsjoWsvijyuatyf70/21/2025 9:00 AM EDTFollow Up Anticoagulation [facility] - Pharmacy Medication Management [address] [place] [address] long term (current) use of 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 (Primary Dx)07/03/2025Telephone [facility] [address] [place] [address] Rosario Ferguson CMA 07/03/20252637Mgbbgs06/20/2025[facility] [address] [place] [place] [address] Don Hobson DO Mixed tezibhtiuvzpho15/17/2025 12:30 PM EDT - 06/29/2025 1:30 PM EDTSurgery [facility] - Endoscopy [address] [place] [phone] Don Hobson DO COLONOSCOPY DIAGNOSTIC / SCREENING [G0121 +1 more]06/29/2025 11:41 AM EDT - 06/29/2025 2:02 PM EDTHospital Encounter [facility] [address] [place] [phone] Yuhas, Don L, DO Personal history of adenomatous and serrated colon polyps (Primary Dx); Screen for colon cancer; Adenomatous polyp of transverse colon; Adenomatous polyp of sigmoid colon Discharge Disposition: Home06/29/20255986Udeixd20/13/2025Orders Only [facility] [address] [place] [address] Don Hobson, DO Personal history of adenomatous and serrated colon polyps (Primary Dx)06/25/2025 Telephone [facility] Internal Medicine - Family Medicine [address] [place] [address] Chel Baugh [facility] 06/15/2025Telephone [facility] - Pharmacy Medication Management [address] [place] [address] Medication Management, [facility] 06/11/2025Telephone [facility] Internal Medicine [facility] Medicine [address] [place] [address] Sony Sampson [facility] 06/07/2025 10:30 AM EDTFollow Up Anticoagulation [facility] Medication Management [address] [place] [address] long term (current) use of 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 (Primary Dx)06/07/20256461Otqvud36/16/[address] [facility] - Pharmacy Medication Management [address] [place] [address] Kimber Pantoja MA 05/25/2025Patient Outreach [facility] [address] [place] [address] Don Hobson, DO Essential hypertension (Primary Dx); Mild persistent asthma without xjptxksbywuw75/08/2025Telephone [facility] Internal Medicine - Family Medicine [address] [place] [address] Magda Flanagan CMA 05/08/2025Refill [facility] [address] [place] [address] Don Hobson DO Gastroesophageal reflux disease, unspecified whether esophagitis present 04/23/2025Patient Outreach [facility] [address] [place] [address] Don Hobson DO Essential hypertension (Primary Dx); Mild persistent asthma without hywghxcihlrs57/08/2025 8:45 AM EDTFollow Up Anticoagulation [facility] - [facility]acy Medication Management [address] [place] [address] long term (current) use of 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 (Primary Dx)04/20/20250541Bchora25/01/2025 Refill [facility] [address] [place] [address] Don Hobson DO Essential hypertensionfrom Last 3 Months Immunizations ImmunizationAdministration DatesNext DueCOVID-19, mRNA, LNP-S, PF, 100mcg/0.5mL Dose01/16/2021,01/14/2021,01/13/2021,12/19/2020,12/18/2020Influenza (IM) Preservative Free06/14/2017,06/10/2015Influenza, Im Trivalent Preservative 2020,06/03/2020Influenza, Injectable, Ycrjmnmbmxsa56/01/2018Influenza, Injectable, quadrivalent (PF)07/23/2023,05/10/2019,06/26/2018Influenza, Trivalent, Cxjlfjlvnv59/07/2024Influenza, Zkwymonmcwv51/02/2017,06/13/2017 Pneumococcal Conjugate 13-Ggmxvk2103/08/2018Zoster Vaccine Oyfzshpfoyg39/15/2019, 04/25/2019 Family History Medical HistoryRelationNameCommentsDeep vein thrombosisBrotherGlaucomaBrother HyperlipidemiaBrotherDeep vein thrombosisFatherHeart diseaseFatherHyperlipidemia FatherHypertensionFatherOtherFatherReactive Airway DiseaseThyroid cancerFather HypertensionMaternal GrandfatherGlaucomaMaternal GrandmotherDiabetesMotherHeart diseaseMotherHypertensionMotherKidney failureMotherHeart attackPaternal GrandmotherHypertensionPaternal GrandmotherBreast cancerNeg HxRelationNameStatus CommentsBrotherFatherMaternal GrandfatherMaternal GrandmotherMotherPaternal Grandmother Social History Tobacco UseTypesPacks/DayYears UsedDateSmoking Tobacco: NeverSmokeless Tobacco: NeverAlcohol UseStandard Drinks/WeekCommentsNo0 (1 standard drink = 0.6 oz pure alcohol)[facility] UtilitiesAnswerDate RecordedIn the past 12 months [...] times a week05/09/2024How often do you attend baptist or hinduism services?Never05/09/2024o you belong to any clubs or organizations such as baptist groups, unions, fraternal or athletic groups, or school groups?No 05/09/2024How often do you attend meetings of the clubs or organizations you belong to?Never05/09/2024re you , , , , never , or living with a partner?Wimixvw0805/09/2024UDIT-CAnswerDate RecordedQ1: How often do you have a [...] care, and heating?Not hard at all05/06/2023HQ-2AnswerDate RecordedTotal Kunoy308Finblue mountain hospital, inc. [place] of Occup[facility] - Occupational Stress QuestionnaireAnswerDate RecordedDo you feel stress - tense, restless, nervous, or anxious, or unable to sleep at night because yourmind is troubled all the time - these days?Only a npzrqn2812/07/2021Exercise Vital SignAnswerDate Recorded On average, how many [...] of a household?No 05/09/2024hildcareAnswerDate RecordedDo problems getting director maternal child make it difficult for you to work [...] InformationValueDate RecordedSex Assigned at BirthNot on fileLegal MxoHrhlow26/06/2015 11:30 AM EDTGender IdentityNot on file Sexual OrientationNot on file Last Filed Vital Signs Vital SignReadingTime TakenCommentsBlood Lutyhhtt160/7110 1:50 PM EDT Srayq2036 1:50 PM KWRKfjfymmmbsj38.4 ??C (97.5 ??F)06/29/2025 1:37 PM EDTRespiratory Lmrd1358 1:50 PM EDTOxygen Hhbbwfpziw15%06/29/2025 1:50 PM EDTInhaled Oxygen Concentration--Pbdnkm64.9 kg (207 lb)06/29/2025 11:59 AM QWKUteplx919.1 cm (5' 5 )06/29/2025 11:59 AM EDTBody Mass Index34.451 11:59 AM EDT Plan of Treatment DateTypeDepartmentCare Team (Latest Contact Info)Dyrflhfxrvz45/21/2025 2:00 PM EDTOffice Visit [facility] [address] [place] [phone] 07/13/2025 11:45 AM EDTFollow Up Anticoagulation [facility] - Pharmacy Medication Management [address] [place] [address] NamePriorityAssociated DiagnosesDate/TimeCOLONOSCOPY DIAGNOSTIC / SCREENING Personal history of adenomatous and serrated colon polyps Health MaintenanceDue DateLast DoneCommentsDiabetic Ophthalmology Exam1961 Adult BMI Follow Up Plan1979Diabetic Foot Exam1979DTaP,Tdap and Td Vaccines (1 - Tdap)1980Pap Smear1982COVID-19 Vaccine ( season)/02/2021, 01/14/2021, 01/13/2021, Additional history exists Influenza Dmzxole85/03/2024, 07/23/2023, 2020, Additional history existsDepression Znxabqjyz03/dult BMI Screening Tobacco Zwplfbiuo21Statin Use: Diabetic Zoster (Shingles) LeqkyafBgwhmiebz38/15/2019, 04/25/2019 Goals GoalPatient Goal TypeAssociated ProblemsRecent ProgressPatient-Stated?Author Lashawn Lucio LSW Note: Evaluation of progress towards goal: transfer to [facility] for med adjustments Medical Devices Not on file Procedures Procedure NamePriorityDate/TimeAssociated DiagnosisCommentsPOCT PROTIME / INR Kzzsayj4207/03/2025 8:51 AM EDT long term (current) use of 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 CO COLONOSCOPY FLX DX W/COLLJ SPEC WHEN PFRMD1 12:20 PM EDT Screen for colon cancer CO COLON CA SCRN NOT HI RSK IND06/29/2025 12:20 PM EDT Screen for colon cancer PROVATION QHCQYRAHIJJLdbymrc56/17/2025 11:45 AM EDT NFXIXUSDPOO92/17/2025 11:37 AM EDT POCT PROTIME / AFQUwttnyu71/25/2025 10:14 AM EDT assisted (current) use of 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 POCT PROTIME / DSIBkqriax84/08/2025 8:45 AM EDT assisted (current) use of 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 from Last 3 Months Results * (ABNORMAL) POCT Protime / INR (07/03/2025 8:51 AM EDT) Only the most recent of3 resultswithin the time period is included. ComponentValueRef RangeTest MethodAnalysis TimePerformed AtPathologist Signature INR2.1(A)0.8 - 1.2MANUALLY TRANSCRIBED RESULTSSpecimen (Source)Anatomical Location / LateralityCollection Method / VolumeCollection TimeReceived Time 07/03/2025 8:51 AM EDT Narrative Authorizing ProviderResult TypeResult StatusPromedica Pharmacy Medication ManagementPOINT OF CARE TEST ORDERABLESFinal ResultPerforming Organization AddressCity/State/ZIP CodePhone Number MANUALLY TRANSCRIBED RESULTS * Colonoscopy Report (06/29/2025 11:45 AM EDT)Specimen [...] PM CARDIOVASCULAR - 07/03/2025 10:50 AM EDT [facility] Patient Name: Noemi Caballero ?? Procedure Date No Time: 06/29/2025 ?? CSN : [id number] Date of : 1960 Admit Type: Outpatient Age: 65 Room: [place] [address] Gender: Female Note Status: Mail Manager Override Attending MD: Don Hobson DO, Procedure: ? Colonoscopy Providers: ? Don Hobson DO Referring MD: ?Don Hobson DO Procedure: ? After I obtained informed consent, the scope was ? passed under direct vision. Throughout the procedure, ? the patient's blood pressure, pulse, and oxygen ? saturations were monitored continuously. The OLYMPUS ? PCF-H190DL # [id number] PEDIATRIC COLONOSCOPE was ? introduced through the anus and advanced to. Estimated Blood Loss: ?? Mail Manager Override Don Hobson DO Number of Addenda: 0 Note Initiated On: 06/29/2025 11:37 AM Procedure Note Don Hobson DO - 07/03/2025 [facility] Patient Name: Noemi Caballero Procedure Date No Time: 06/29/2025 CSN : [id number] Date of : 1960 Admit Type: Outpatient Age: 65 Room: [place] [address] Gender: Female Note Status: Mail Manager Override Attending MD: Don Hobson DO, Procedure: Colonoscopy Providers: Don Hobson DO Referring MD: Don Hobson DO Procedure: After I obtained informed consent, the scope was passed under direct vision. Throughout theprocedure, the patient's blood pressure, pulse, and oxygen saturations were monitored continuously. TheSalsifySolx PCF-H190DL # [id number] PEDIATRIC COLONOSCOPE was introduced through the anus and advanced to. Estimated Blood Loss: Mail Manager Override Don Hobson DO Number of Addenda: 0 Note Initiated On: 06/29/2025 11:37 AM Authorizing ProviderResult TypeResult StatusJoandrzej ROWEI PROCEDURE ORDERABLESEdited Result - FinalPerforming OrganizationAddressCity/State/ZIP Code Phone Number [facility] from Last 3 Months Insurance Advance Directives * Full Code (Latest Code Status on File) Date ActivatedDate InactivatedComments10/06/2021 5:21 AM10/23/2021 2:34 PM Care Teams Team MemberRelationshipSpecialtyStart DateEnd Date Don Hobson DO [address] [place] [address] PCP - General02/23/13 Che Sosa CCM Nurse - [facility]09/29/24
--- OUTSIDE RECORDS SUMMARY | 2025-07-03 12:18 | XMS_ITS | Encounter Summary ---
Author Organization [employer] tem Address [facility]-[id number] [address] [place] [address] Care Team Providers Care Software Installer Name Role Phone Leonoranisha Don Noreen BATEMAN Primary Care Provider [phone] Encounter Details DateTypeDepartmentCare Team (Latest Contact Info)Hiyihcqtvce67/21/2025Travel Social History Tobacco UseTypesPacks/DayYears UsedDateSmoking Tobacco: NeverSmokeless Tobacco: NeverAlcohol UseStandard Drinks/WeekCommentsNo0 (1 standard drink = 0.6 oz pure alcohol)[facility] UtilitiesAnswerDate RecordedIn the past 12 months has the electric, gas, oil, or water [employer] threatened to shut off services in your home?No 05/09/2024Social Connection and Isolation PanelAnswerDate RecordedIn a typical week, how many times do you talk on the phone with family, friends, or neighbors?Three times a week05/09/2024How often do you get together with friends or relatives?Three times a week05/09/2024How often do you attend voodoo or baptist services?Never05/09/2024o you belong to any clubs or organizations such as voodoo groups, unions, fraternal or athletic groups, or school groups?No 05/09/2024How often do you attend meetings of the clubs or organizations you belong to?Never05/09/2024re you , , , , never , or living with a partner?Xcmjdph8205/09/2024UDIT-CAnswerDate RecordedQ1: How often do you have a [...] care, and heating?Not hard at all05/06/2023HQ-2AnswerDate RecordedTotal Utscu161[facility] [place] of Occupational Health - Occupational Stress QuestionnaireAnswerDate RecordedDo you feel stress - tense, restless, nervous, or anxious, or unable to sleep at night because yourmind is troubled all the time - these days?Only a lchlia0012/07/2021Exercise Vital SignAnswerDate Recorded On average, how many days per week do you engage in moderate to strenuous exercise (like a brisk walk)?5 days05/09/2024On average, how many minutes do you engage in exercise at this level?20 min4PRAPARE - TransportationAnswer Date RecordedIn the past 12 [...] a household?No 05/09/2024hildcareAnswerDate RecordedDo problems getting child protective services specialist make it difficult for you to work [...] InformationValueDate RecordedSex Assigned at BirthNot on fileLegal CueCmecps95/06/2015 11:30 AM EDTGender IdentityNot on file Sexual OrientationNot on filedocumented as of this encounter Plan of Treatment DateTypeDepartmentCare Team (Latest Contact Info)Acfwweknsfi90/21/2025 2:00 PM EDTOffice Visit [facility] Medicine [address] [place] [address] 07/13/2025 11:45 AM EDTFollow Up Anticoagulation [facility] - Pharmacy Medication Management [address] [place] [address] NamePriorityAssociated DiagnosesDate/TimeCOLONOSCOPY DIAGNOSTIC / SCREENING Personal history of adenomatous and serrated colon polyps documented as of this encounter Goals GoalPatient Goal TypeAssociated ProblemsRecent ProgressPatient-Stated?Author Lashawn Lucio LSW Note: Evaluation of progress towards goal: transfer to [facility] for med adjustments documented as of this encounter Visit Diagnoses Not on filedocumented in this encounter Additional Health Concerns AssessmentNoted TimePHQ-9 Depression Total Score: 12:54 PM EDT documented as of this encounter Care Teams Team MemberRelationshipSpecialtyStart DateEnd Date Don Hobson DO [address] [place] [address] PCP - General02/23/13 Che Sosa CCM Nurse - [facility]09/29/24documented as of this encounter
--- OUTSIDE RECORDS SUMMARY | 2025-07-03 12:18 | XMS_ITS | Encounter Summary ---
Author Organization [employer] tem Address [facility]-[id number] [address] [place] [address] Care Team Providers Care Family Preservation Worker Name Role Phone Leonoranisha Don Noreen BATEMAN Primary Care Provider [phone] Encounter Details DateTypeDepartmentCare Team (Latest Contact Info)Qkcxirvrplp58/17/2025Travel Social History Tobacco UseTypesPacks/DayYears UsedDateSmoking Tobacco: NeverSmokeless Tobacco: NeverAlcohol UseStandard Drinks/WeekCommentsNo0 (1 standard drink = 0.6 oz pure alcohol)[facility] UtilitiesAnswerDate RecordedIn the past 12 months has the electric, gas, oil, or water [employer] threatened to shut off services in your home?No 05/09/2024Social Connection and Isolation PanelAnswerDate RecordedIn a typical week, how many times do you talk on the phone with family, friends, or neighbors?Three times a week05/09/2024How often do you get together with friends or relatives?Three times a week05/09/2024How often do you attend evangelical or episcopalian services?Never05/09/2024o you belong to any clubs or organizations such as evangelical groups, unions, fraternal or athletic groups, or school groups?No 05/09/2024How often do you attend meetings of the clubs or organizations you belong to?Never05/09/2024re you , , , , never , or living with a partner?Xvwupcf8905/09/2024UDIT-CAnswerDate RecordedQ1: How often do you have a [...] care, and heating?Not hard at all05/06/2023HQ-2AnswerDate RecordedTotal Ufjkt413Fin[facility] [place] of Occupational Health - Occupational Stress QuestionnaireAnswerDate RecordedDo you feel stress - tense, restless, nervous, or anxious, or unable to sleep at night because yourmind is troubled all the time - these days?Only a thxrsu8712/07/2021Exercise Vital SignAnswerDate Recorded On average, how many [...] of a household?No 05/09/2024hildcareAnswerDate RecordedDo problems getting early childhood director make it difficult for you to work [...] InformationValueDate RecordedSex Assigned at BirthNot on fileLegal JdtOcekri23/06/2015 11:30 AM EDTGender IdentityNot on file Sexual OrientationNot on filedocumented as of this encounter Plan of Treatment DateTypeDepartmentCare Team (Latest Contact Info)Bfuhobghtjn64/21/2025 2:00 PM EDTOffice Visit [facility] Physicians Internal Medicine - Family Medicine [address] [place] [address] 07/13/2025 11:45 AM EDTFollow Up Anticoagulation [facility] - Pharmacy Medication Management [address] [place] [address] NamePriorityAssociated DiagnosesDate/TimeCOLONOSCOPY DIAGNOSTIC / SCREENING Personal history [...] DateEnd Date Don Hobson DO [address] [place] [address] PCP - General02/23/13 Che Sosa CCM Nurse - [facility]09/29/24documented as of this encounter
--- OUTSIDE RECORDS SUMMARY | 2025-07-03 12:18 | XMS_ITS | Encounter Summary ---
Author Organization [facility] [employer] [facility] tem Address [facility]-[id number] [address] [place] [address] Care Team Providers Care Butt Maker Name Role Phone Don Hobson DO Primary Care Provider [phone] Reason for Visit * ReasonCommentsMed Refill Encounter Details DateTypeDepartmentCare Team (Latest Contact Info)Xtrkoyomhye46/20/2025Refill [facility] Physicians Internal Medicine - Family Medicine [address] [place] [address] Don Hobson DO [address] [place] [address] Mixed hyperlipidemia Social History Tobacco UseTypesPacks/DayYears UsedDateSmoking Tobacco: NeverSmokeless Tobacco: NeverAlcohol UseStandard Drinks/WeekCommentsNo0 (1 standard drink = 0.6 oz pure alcohol)[facility] UtilitiesAnswerDate RecordedIn the past 12 months has the [employer], gas, oil, or water [employer] threatened to shut off services in your home?No 05/09/2024Social Connection and Isolation PanelAnswerDate RecordedIn a typical week, how many times do you talk on the phone with family, friends, or neighbors?Three times a week05/09/2024How often do you get together with friends or relatives?Three times a week05/09/2024How often do you attend rastafari or congregation services?Never4Do you belong to any clubs or organizations such as rastafari groups, unions, fraternal or athletic groups, or school groups?No 05/09/2024How often do you attend meetings of the clubs or organizations you belong to?Never05/09/2024re you , , , , never , or living with a partner?Okqvbxb0805/09/2024UDIT-CAnswerDate RecordedQ1: How often do you have a [...] care, and heating?Not hard at all05/06/2023HQ-2AnswerDate RecordedTotal Suvfm886Finintermount[facility] healthcare [place] of Occupational Health - Occupational Stress QuestionnaireAnswerDate RecordedDo you feel stress - tense, restless, nervous, or anxious, or unable to sleep at night because yourmind is troubled all the time - these days?Only a ipeipq3812/07/2021Exercise Vital SignAnswerDate Recorded On average, how many [...] of a household?No 05/09/2024hildcareAnswerDate RecordedDo problems getting children librarian make it difficult for you to work [...] InformationValueDate RecordedSex Assigned at BirthNot on fileLegal KmtDlrofi23/06/2015 11:30 AM EDTGender IdentityNot on file Sexual OrientationNot on filedocumented as of this encounter Plan of Treatment DateTypeDepartmentCare Team (Latest Contact Info)Lwtmmigcazi62/21/2025 2:00 PM EDTOffice Visit [facility] Physicians Internal Medicine - Family Medicine [address] [place] [address] 07/13/2025 11:45 AM EDTFollow Up Anticoagulation [facility] - Pharmacy Medication Management [address] [place] [address] NamePriorityAssociated DiagnosesDate/TimeCOLONOSCOPY DIAGNOSTIC / SCREENING Personal history of adenomatous and serrated colon polyps documented as of this encounter Goals GoalPatient Goal TypeAssociated ProblemsRecent ProgressPatient-Stated?Author Lashawn Lucio LSW Note: Evaluation of progress towards goal: transfer to [facility] for med adjustments documented as of this encounter Visit Diagnoses Diagnosis Mixed hyperlipidemia documented in this encounter Additional Health Concerns AssessmentNoted TimePHQ-9 Depression Total Score: 12:54 PM EDT documented as of this encounter Care Teams Team MemberRelationshipSpecialtyStart DateEnd Date Don Hobson DO [address] [place] [address] PCP - General02/23/13 Che Sosa CCM Nurse - [facility]09/29/24documented as of this encounter
--- OUTSIDE RECORDS SUMMARY | 2025-07-03 12:18 | XMS_ITS | Clinical Summary ---
Author Organization [facility] Address [address], [address] [place] [address] Care Team Providers Care Secretary To Board Of Commissioners Name Role Phone Don Hobson DO Primary Care Provider [phone] Allergies Active AllergyReactionsCriticalityNoted KlsaViggcnefKtzscmxeveal70/14/2017 Xnhdbhmwes79/14/2017Milnacipran Hcl09/26/20168519Blrhkzsoxz86/14/2017 Medications MedicationSigDispense QuantityRefillsLast FilledStart DateEnd DateStatus albuterol sulfate HFA 108 (90 BASE) MCG/ACT inhaler Inhale 2 puffs into the lungs every 6 hours as needed for WheezingActive aspirin 81 MG chewable tablet Take 162 mg by mouth dailyActive atorvastatin (LIPITOR) 40 MG tablet Take 40 mg by mouth dailyActive warfarin (COUMADIN) 7.5 MG tablet Take 7.5 mg by mouth daily 7. Mg t,w,f,s,s, and 10 mg and Active dexlansoprazole (DEXILANT) 60 MG CPDR delayed release capsule Take 60 mg by mouth dailyActive venlafaxine (EFFEXOR XR) 150 MG extended release capsule Take 450 mg by mouth dailyActive folic acid (FOLVITE) 1 MG tablet Take 1 mg by mouth dailyActive enoxaparin (LOVENOX) 100 MG/ML injection Inject 1 mg/kg into the skin 2 times dailyActive mometasone (NASONEX) 50 MCG/ACT nasal spray 2 sprays by Nasal route dailyActive QUEtiapine (SEROQUEL) 25 MG tablet Take 200 mg by mouth nightlyActive montelukast (SINGULAIR) 10 MG tablet Take 10 mg by mouth nightlyActive Cholecalciferol (VITAMIN D3) 2000 UNITS CAPS Take 1,000 Units by mouth dailyActive lithium 300 MG tablet Take 300 mg by mouth 3 times dailyActive gabapentin (NEURONTIN) 600 MG tablet Take 0.5 tablets by mouth 3 times daily 90 tablet Active levothyroxine (SYNTHROID) 25 MCG tablet Take 1 tablet by mouth Daily 30 tablet Active Active Problems ProblemNoted DateDiagnosed DateBipolar 1 bnzpfdpy26/15/2017Polypharmacy 09/27/2016Acute metabolic yexafljpxplkaz88/15/2017Chronic pain09/27/2016Chronic pdhddcva00/15/2017CAD (coronary artery disease)09/27/2016H/O: CVA (cerebrovascular accident)09/27/2016Antiphospholipid antibody rwbfstpe41/15/2017 History of DVT (deep vein thrombosis)09/27/20161654Ypdmdlwjwcyedn40/15/2017GERD (gastroesophageal reflux disease)09/27/20162912Gatwibvtasuvknb21/15/2017Altered mental statusMisuse of prescription only drugs Resolved Problems ProblemNoted DateDiagnosed DateResolved DateEncephalopathy acute09/27/2016 Social History Tobacco UseTypesPacks/DayYears UsedDateSmoking Tobacco: NeverCommentsNo Sex and Gender InformationValueDate RecordedSex Assigned at BirthNot on file Legal SyaEnyldl27/10/2013 5:26 PM ESTGender IdentityNot on fileSexual OrientationNot on file Last Filed Vital Signs Vital SignReadingTime TakenCommentsBlood Rkgbvjrl420/70009/28/2016 11:49 AM EST Xzeel484009/28/2016 11:49 AM EXZKpnqkhdipdh34.1 ??C (98.8 ??F)09/28/2016 11:49 AM ESTRespiratory Fbxj097909/28/2016 11:49 AM ESTOxygen Cljtpmslqq23%09/28/2016 11:49 AM ESTInhaled Oxygen Concentration--Ikjzoy96.9 kg (196 lb)09/28/2016 7:20 AM EST Xjwqto573.1 cm (5' 5 )09/26/2016 9:43 PM ESTBody Mass Index32.62009/26/2016 9:43 PM EST Plan of Treatment Not on file Insurance Advance Directives TypeDate RecordedPatient RepresentativeExplanationACP-Advance Directive09/29/2016 1:53 PM * Full Code (Latest Code Status on File) Date ActivatedDate InactivatedComments09/27/2016 1:50 AM09/28/2016 4:58 PM Care Teams Team MemberRelationshipSpecialtyStart DateEnd Date Don Hobson DO PCP - General09/26/16
--- OUTSIDE RECORDS SUMMARY | 2025-07-03 12:18 | XMS_ITS | Clinical Summary ---
Author Organization [facility] Address [address] [place] [id number] Care Team Providers Care Vasc Tech Name Role Phone Unavailable Primary Care Provider Unavailabl e Allergies Active AllergyReactionsCriticalityNoted DateCommentsErythromycinGI Upset 05/10/20138253OytraplevaWmkpuavt21/29/2013MilnacipranMental Status Mktdar5611/14/2013 SertralineOther: See Jykplmcb95/28/2013 Chest pain Medications MedicationSigDispense QuantityRefillsLast FilledStart DateEnd DateStatus montelukast (SINGULAIR) 10 mg tablet Take 1 tablet by mouth daily at bedtime.ctive folic acid 1 mg tablet Take 1 tablet by mouth once daily.ctive Dexlansoprazole (DEXILANT) 60 mg CpDM Take 60 mg by mouth once daily.Active diazepam (VALIUM) 5 mg tablet Take 1 tablet by mouth twice daily.11/22/2015Active venlafaxine XR (EFFEXOR XR) 150 mg 24 hr capsule Take 450 mg by mouth once daily. Take three daily.11/22/2015Active QUEtiapine (SEROQUEL) 50 mg tablet Take three tablets daily at yqbuzzx4211/22/2015Active zolpidem (AMBIEN) 10 mg tab Take 15 mg by mouth daily at bedtime. Take one OR one and one-half tablet daily at bedtime.11/22/2015Active memantine XR (NAMENDA XR) 28 mg CSpX Take by mouth once daily.Active gabapentin (NEURONTIN) 600 mg tablet Take 600 mg by mouth four times daily.11/22/2015Active baclofen (LIORESAL) 10 mg tablet Take 10 mg by mouth four times daily.11/22/2015Active piabeszjnx-ljtqohw-wkwrgrry-codeine (FIORINAL-CODEINE #3) capsule Take 2 capsules by mouth every 8 hours as needed (for headache).11/22/2015Active cyproheptadine (PERIACTIN) 4 mg tablet Take two tablets daily at bedtime.11/22/2015Active levothyroxine (SYNTHROID) 100 mcg tablet Take 1 tablet by mouth once daily.Active atorvastatin (LIPITOR) 40 mg tablet Take 1 tablet by mouth once daily.Active aspirin, enteric coated (ECOTRIN LOW STRENGTH) 81 mg EC tablet Take two tablets daily.11/22/2015Active mometasone (NASONEX) 50 mcg/actuation nasal spray Use 2 Sprays in the nose once daily.Active albuterol HFA (PROAIR HFA) 90 mcg/actuation inhaler Inhale 1 Puff as instructed every 6 hours as needed (for dsypnea). Active linaclotide (LINZESS) 145 mcg cap Take by mouth once daily.Active promethazine (PHENERGAN) 25 mg tablet Take 1 tablet by mouth every 6 hours as needed. FOR SBXJEF4811/22/2015Active warfarin (COUMADIN) 5 mg tablet Take 5 mg by mouth daily as directed. Dose variesActive methocarbamol (ROBAXIN) 500 mg tablet Take 500 mg by mouth twice daily.Active lamoTRIgine (LAMICTAL) 25 mg tablet Take 50 mg by mouth daily at bedtime.Active BIOTIN ORAL Take 100 mg by mouth as directed. Taking two tabs in the morning and one tab at nightActive COMPOUNDED PRESCRIPTION Apply 1 application to affected area three times daily. Col-B Colchincine 0.04%, Baclofen 2%, Pyridoxine 2%, DMSO 25% CreamActive bmmd-gjixpuk-A48P24-K-ejwn-Ov-IUJ 160 mg iron-1 mg-60 mcg tab Take 1 tablet by mouth once daily.Active CHROMIUM PICOLINATE ORAL Take 100 mcg by mouth twice daily.Active MEDICATION, NON-DATABASE Take 1 tablet by mouth twice daily.Active Cholecalciferol, Vitamin D3, 5,000 unit tab Take 5,000 Units by mouth once daily.Active MEDICATION, NON-DATABASE Take 1 tablet by mouth twice daily.Active morphine SR (MS CONTIN) 15 mg 12 hr tablet Take 1 tablet by mouth twice daily. since Active Levothyroxine 75 mcg cap Take by mouth.Active Levothyroxine 50 mcg cap Take 50 mcg by mouth as directed.Active linaclotide 145 mcg cap Take 1 tablet by mouth once daily.Active methocarbamol (ROBAXIN) 500 mg tablet Take 500 mg by mouth four times daily.Active PYRIDOXINE HCL (PYRIDOXINE, BULK, MISC) as directed.Active cholecalciferol (VITAMIN D3) 1,000 unit tab tablet Take 1,000 Units by mouth once daily.Active PREGNENOLONE MISC as directed.Active ferrous sulfate (IRON) 325 mg (65 mg iron) tablet Take 1 tablet by mouth twice daily. 180 tablet Active Active Problems ProblemNoted DateDiagnosed DateAcquired blindness of one eye01/15/2016Other optic atrophy, right eye01/15/2016Intractable chronic migraine without aura and without status xvicxbeqdoi31/14/2016Iron deficiency eglqon7504/12/2014Personal history of DVT (deep vein thrombosis)09/05/2013nticoagulation management /24/2013Lupus anticoagulant /18/2013Ischemic optic vwwejrcgel57/18/2013Systemic lupus duiyhlpkqgaal28/16/2013Optic neuropathy 05/10/2013 Family History Medical HistoryRelationCommentsBlindnessBrotherNystagmusCataractBrotherCataract FatherCataractMotherMultiple SclerosisOtherMaternal NieceRelationStatusComments BrotherFatherMotherOther Social History Tobacco UseTypesPacks/DayYears UsedDateSmoking Tobacco: NeverSmokeless Tobacco: NeverAlcohol UseStandard Drinks/WeekCommentsYes0.5 (1 standard drink = 0.6 oz pure alcohol)1 glass a monthCommentsNoSex and Gender InformationValue Date RecordedSex Assigned at BirthNot on fileLegal SynOgphfl31/05/2013 9:48 AM EDTGender IdentityNot on fileSexual OrientationNot on fileOccupationIndustryJob Start DateJob End DateOn DisabilityNot on fileNot on fileNot on file Last Filed Vital Signs Vital SignReadingTime TakenCommentsBlood Wuyetdjt253/7804 2:05 PM EDT Fcgro5187 2:05 PM BRWXaqngzyqmls41.8 ??C (98.3 ??F)01/09/2016 2:05 PM EDTRespiratory Oahf408701/09/2016 2:05 PM EDTOxygen Itqjwtlkwv12%05/19/2013 3:17 PM EDTInhaled Oxygen Concentration--Fzjfde19.1 kg (214 lb)01/09/2016 2:05 PM EDT Pnzsan885.1 cm (5' 5 )01/09/2016 2:05 PM EDTBody Mass Index35.61001/09/2016 2:05 PM EDT Plan of Treatment Health MaintenanceDue DateLast DoneCommentsAnxiety Awewodmsh21/22/1979Depression Hufoxsrso04/22/1979HIV Ybiifmkmm87/22/1979Hepatitis C Pitcqsxap17/22/1979 DTaP,Tdap,Td Vaccine (1 - Tdap)1980Cervical Cancer Xipxdtgys81/22/1982 Mammogram Cgikettat59/22/2001CT Tletptprdjck99/22/2006Cologuard (FIT-DNA) 06/04/20063569Fzazbizmucs39/22/2006Lipid Diqllelgg35/22/8326Irrejyhvcifcc63/22/2006 Pneumococcal Vaccine: 50+ (1 of 1 - PCV)2011Shingrix Vaccine (1 of 2) 2011Colorectal Cancer Cwxxguqha73/04/2015Fecal Occult Blood11/14/2014 11/14/2013Diabetes Cybwaxqiw79Covid-19 Vaccine (1 - 2024- season)2025Influenza Vaccine (#1)2025RSV Vaccine (1 - 1-dose 75+ series)2036 Procedures Procedure NamePriorityDate/TimeAssociated DiagnosisCommentsIMMUNOCHEMICAL FECAL OCCULT BLOOD GLUBVanfdhk32/04/2014 10:29 PM EST Thrombosis COMPREHENSIVE METABOLIC WHMOEAfmfkwd49/15/2013 4:19 PM EST Antiphospholipid antibody syndrome Optic neuropathy Vision loss from Last 3 Months or Most Recently Relevant to Health Maintenance Results * (ABNORMAL) FECAL OCCULT BLOOD TEST (11/14/2013 10:29 PM EST)ComponentValueRef RangeTest MethodAnalysis TimePerformed AtPathologist SignatureOccult Blood, StoolPositive(*)(A)NEGATCAVITA HEALTH SYSTEM [facility]ALION [facility] MAIN LABORATORYSpecimen (Source) Anatomical Location / LateralityCollection Method / VolumeCollection Time Received TimeStool specimen (specimen)STOOL SPECIMEN / Vaggnom0811/14/2013 10:29 PM EST11/20/2013 10:29 PM EDT Narrative Authorizing ProviderResult TypeResult StatusJose Cabrera DOLABORATORY Final ResultPerforming OrganizationAddressCity/State/ZIP CodePhone Number [facility] [address] [place] [address] * COMP METABOLIC PANEL (07/28/2013 4:19 PM EST)ComponentValueRef RangeTest MethodAnalysis TimePerformed AtPathologist SignatureProtein, Total6.36.0 - 8.4 g/dLTRIHEALTH BETH[facility]DA [facility] LABORATORYAlbumin4.03.5 - 5.0 g/dLTRIHEALTH [facility] LABORATORYCalcium9.18.5 - 10.5 mg/dLTRIHEALTH [facility] Bilirubin, Total0.10.0 - 1.5 mg/dLTRIHEALTH [facility]DA [facility] LABORATORYAlkaline Nwlwycotpsv9644 - 150 U/LCBLANCHARD VALLEY [facility]ALTH [facility] PLMSQEEOXYXZZ479 - 40 U/L [facility] WXYRHBFVJKWihuppf7612 - 100 mg/dLTR[facility]HEALTH [facility] DZXZNTPUQMVLX692 - 25 mg/dLTRIHEALTH [facility] LABORATORYCreatinine1.000.70 - 1.40 mg/dLTRIHEALTH [facility] PSSYVLKPCGQqirmx120310 - 148 mmol/LCBLANCHARD VALLEY HEALTH SYSTEM LABORATORYPotassium3.63.5 - 5.0 mmol/LCAVITA [facility]ALTH [facility] MAIN KHQZWIWZXMJqmwqthb02908 - 110 mmol/LCBLANCHARD VALLEY [facility] RSLZFPDNXVCW81794 - 32 mmol/LCAVITA HEALTH SYSTEM [facility] MAIN LABORATORYAnion Ndq467 - 15 mmol/LCBLANCHARD VALLEY [facility] RJGDONTFVGECB047 - 45 U/LCBLANCHARD VALLEY [facility]ALTH SYSTEM LABORATORYeGFR- >60TR[facility] LABORATORYeGFR-All Other Races58. [facility] LABORATORYComment: eGFR (Estimated GFR) Units of measure: mL/min/1.73 meters squared eGFR is derived from the reexpressed MDRD Study equation using the following parameters: serum creatinine, age, gender and race. The creatinine assay has been calibrated to be traceable to IDMS. An eGFR <60 mL/min/1.73m2 for >3 months is consistent with chronic kidney disease. Refer to KDOQI guidelines for clinical interpretation. Specimen (Source)Anatomical Location / LateralityCollection Method / Volume Collection TimeReceived TimeBlood specimen (specimen)BLOOD SPECIMEN / Unknown 07/28/2013 4:19 PM EST07/28/2013 4:21 PM EST Narrative Authorizing ProviderResult TypeResult StatusRula Pee Armando MDLABORATORYFinal ResultPerforming OrganizationAddressCity/State/ZIP CodePhone Number [facility] [address] [place] [address] from Last 3 Months or Most Recently Relevant to Health Maintenance Insurance Advance Directives TypeDate RecordedPatient RepresentativeExplanationAdvance Directive(s)11/29/2013 10:14 AMAdvance Directive(s)11/29/2013 10:13 AM
--- OUTSIDE RECORDS SUMMARY | 2025-07-03 12:19 | XMS_ITS | Clinical Summary ---
Author Organization [facility] Address [address] [place] [id number] Care Team Providers Care Floriculture Professor Name Role Phone Jazlyn Paz Jr., Jr., Don BATEMAN Primary Care Provi teri Allergies Active AllergyReactionsCriticalityNoted DateCommentsAmoxicillinHivesMedium 02/15/20194792Suyomubwvuub60/05/2019 UPSET STOMACH Yhvegjz8002/15/2019 PT. SAYS SHE WENT INTO A COMA Zfijjmtkh63/05/2019 Hematuria FargnylwckXkmorhysMcceyl09/05/2019VortioxetineNausea and VomitingMedium 02/15/20198799Tarxmjmnpl46/05/2019 Chest Pain Medications MedicationSigDispense QuantityRefillsLast FilledStart DateEnd DateStatus fluticasone 50 MCG/ACT Suspension nasal spray 2 sprays by Nasal route 2 times daily.Active ALBUTEROL IN Inhale 2 puffs 2 times daily.Active ondansetron 4 MG Tab tablet Take 4 mg by mouth every 12 hours as needed for Nausea.Active QUEtiapine Fumarate (SEROQUEL PO) Take 550 mg by mouth at bedtime.Active gabapentin 300 MG Cap capsule Take 300 mg by mouth 4 times daily.Active loratadine 10 MG Tab tablet Take 10 mg by mouth daily.Active busPIRone 10 MG Tab tablet Take 10 mg by mouth 2 times daily. Pt. Takes 10mg every morning and 20mg at HS Active Vitamin D3 1000 units Tab tablet Take 5,000 Units by mouth daily every morning.Active baclofen 20 MG Tab tablet Take 20 mg by mouth 4 times daily.Active venlafaxine 150 MG Cap SR 24HR capsule XR Take 150 mg by mouth daily every morning.Active BABY ASPIRIN PO Take 81 mg by mouth at bedtime.Active folic acid 1 MG Tab tablet Take 1 mg by mouth at bedtime.Active oxyCODONE-acetaminophen 5-325 MG Tab per tablet Take 1 tablet by mouth every 6 hours as needed.Active atorvastatin 40 MG Tab tablet Take 40 mg by mouth at bedtime.Active DEXLANSOPRAZOLE PO Take 60 mg by mouth 2 times daily.Active levothyroxine 25 MCG Tab tablet Take 25 mcg by mouth at bedtime.Active Nystatin (NYAMYC EX) Apply topically at bedtime.Active clotrimazole-betamethasone (LOTRISONE) 1-0.05 % Cream Apply topically 2 times daily.Active zolpidem 5 MG Tab tablet Take 10 mg by mouth at bedtime.Active tiZANidine 4 MG Tab tablet Take 4 mg by mouth at bedtime.Active linaCLOtide (LINZESS PO) Take 30 mg by mouth as needed.Active olmesartan (BENICAR) 20 MG Tab Take 20 mg by mouth daily every morning.Active ferrous sulfate 324 (65 Fe) MG Tab DR tablet Take 325 mg by mouth daily.Active buPROPion 150 MG tablet XL Take 150 mg by mouth daily every morning.Active Zddjphwwct-FTGT-Tmdm-Cod (FIORICET/CODEINE) 36-635-21-30 MG Cap Take by mouth as needed.Active acetaminophen 325 MG tablet Take 2 tablets by mouth every 6 hours as needed for Mild Pain or Fever. 05/31/2019Active senna 8.6 MG Tab tablet Take 1 tablet by mouth 2 times daily. Titrate for frequent or loose stools. 60 tablet 05/31/2019Active oxyCODONE 5 MG Tab tablet Indications:Other acute postprocedural pain,S/P discectomyTake 1 tablet by mouth every 6 hours as needed for Pain (breakthrough) (For surgical pain unrelieved with Percocet) for up to 7 days. 28 tablet 06/23/2019Active warfarin 5 MG tablet Take 5 mg by mouth every evening at 6 PM.Active Active Problems ProblemNoted DateDiagnosed BwluPojvuuug33/05/2019DVT (deep venous thrombosis) 05/18/20195396Aomjtf22/05/2019Antiphospholipid ddkuxhvh55/05/2019Thoracic eyjcpsfjfcyzy34/12/2019 Overview (03/24/2019): Added automatically from request for surgery [id number] Thoracic spinal /12/2019 Overview (03/24/2019): Added automatically from request for surgery [id number] Degenerative disc disease, bwflyvzl66/12/2019 Overview (03/24/2019): Added automatically from request for surgery [id number] Obesity: body mass index of 30.0-34.9002/15/2019 Family History Medical HistoryRelationNameCommentsCoronary Artery DiseaseBrother 1Other - SpecifyBrother 2Back issuesBleeding or Clotting ProblemsFatherMyocardial InfarctionFatherDiabetesMotherOther - SpecifyMotherHeart diseaseThyroid Cancer SisterRelationNameStatusCommentsBrother 1AliveBrother 2AliveFatherDeceasedMother DeceasedSisterAlive Social History Tobacco UseTypesPacks/DayYears UsedDateSmoking Tobacco: NeverSmokeless Tobacco: NeverAlcohol UseStandard Drinks/WeekCommentsYes0 (1 standard drink = 0.6 oz pure alcohol)AUDIT-CAnswerDate RecordedFrequency of Alcohol ConsumptionMonthly or less05/18/2019Average Number of Drinks1 or Frequency of Binge DrinkingNot on file05/18/2019CommentsNoSex and Gender InformationValue Date RecordedSex Assigned at BirthNot on fileLegal XplIzprqd86/08/2019 6:48 PM EDTGender IdentityNot on fileSexual OrientationNot on file Last Filed Vital Signs Vital SignReadingTime TakenCommentsBlood Xphkdhaj054/7509 8:57 AM EDT Gnush191606/01/2019 8:57 AM ZFUDazzsdnpikl76.7 ??C (98 ??F)06/01/2019 8:57 AM EDT Respiratory Wapc4322 11:50 AM EDTOxygen Xqfnwlfotf74%06/01/2019 8:57 AM EDTInhaled Oxygen Concentration--Kvqzsl64.5 kg (195 lb)07/12/2019 11:50 AM EDT Gkpqtx387.1 cm (5' 5 )07/12/2019 11:50 AM EDTBody Mass Index32.451 11:50 AM EDT Plan of Treatment Health MaintenanceDue DateLast DoneCommentsHEPATITIS C VIRUS FJNPMVSTX1961 HEOKKEW3106/04/1961HIV SCREENING CKENFFHFOB01/22/1976TDAP (ADULT)1980 CERVICAL CANCER SCREENING JPQKYUOJND71/22/1982LIPID JGRGAMHYZ71/22/2001MAMMOGRAM SCREENING OGMYOXCETS66/22/2001COLORECTAL CANCER SCREENING MHAZYMCTNV06/22/2006 PNEUMOCOCCAL VACCINE SERIES (2 of 2 - PCV20 or PCV21)ZOSTER (SHINGLES) VACCINE (2 of 2)COVID-19 VACCINE (1 - 2024- season)2025INFLUENZA VACCINE (#1)51, 06/13/2018, 06/14/2017, Additional history existsRSV VACCINE (1 - 1-dose 75+ series) 2036PNEUMOCOCCAL VACCINE NFTEBSOozhysijrxfi38/26/2018TSHDiscontinued 05/18/2019HEP B VACCINEAged OutNo longer eligible based on patient's age to complete this topic Medical Devices ImplantedTypeAreaManufacturerDevice IdentifierShelf Expiration DateModel / Serial / Lot1.5t Or 3t 2w/KgFilter Procedures Procedure NamePriorityDate/TimeAssociated AdzcsffqdIdnbbveeNRMOybumge03/05/2019 2:19 PM EDT Pre-op evaluation Other specified hypothyroidism from Last 3 Months or Most Recently Relevant to Health Maintenance Results * TSH (05/18/2019 2:19 PM EDT)ComponentValueRef RangeTest MethodAnalysis Time Performed AtPathologist SignatureTSH2.2170.550 - 4.780 uIU/mL05/18/2019 6:40 PM EDTOMEMORIAL HOSPITAL CLINICAL LABORATORYSpecimen (Source)Anatomical Location / LateralityCollection Method / VolumeCollection TimeReceived Time BloodVenipuncture / Qiphqgq4705/18/2019 2:19 PM EDT05/18/2019 2:48 PM EDT Narrative Authorizing ProviderResult TypeResult StatusMicosei Olson MDENDOCRINOLOGY Final ResultPerforming OrganizationAddressCity/State/ZIP CodePhone Number [facility] [address] [place] [address] from Last 3 Months or Most Recently Relevant to Health Maintenance Insurance Advance Directives For more information, please contact: [phone] (7:30 AM - 6PM [facility], Wednesday-Wednesday) * Full Code (Latest Code Status on File) Date ActivatedDate InactivatedComments05/30/2019 11:09 AM05/30/2019 8:21 PM Care Teams Team MemberRelationshipSpecialtyStart DateEnd Date Jazlyn Paz Jr., Jr., Don Sorto DO PCP - GeneralInternal Medicine01/25/19
--- OUTSIDE RECORDS SUMMARY | 2025-07-03 12:19 | XMS_ITS | Clinical Summary ---
Author Organization [facility] Address [address] [place] [address] Care Team Providers Care Director Cardiovascular Name Role Phone Don Hobson MD Primary Care Provider [phone] Allergies Active AllergyReactionsCriticalityNoted DateCommentsErythromycinHivesMedium 05/10/2013 Other Reaction(s): Abnormal Behavior, GI Upset UPSET STOMACH SEVERE STOMACH CRAMPING Erythromycin Base03/29/2023 Other Reaction(s): Unknown ZbzkurbMracaOnbi15/05/2018 Other Reaction(s): Unknown PT. SAYS SHE WENT INTO A COMA COMA Mmicignefepi97/14/2021 Other Reaction(s): VOMITING Mzvmairxta60/07/2024 Other Reaction(s): Falls Gppfkefzb41/26/2020 Other Reaction(s): blood in urine HzsozvilkftEhran37/04/2014 Other Reaction(s): Unknown Other Reaction(s): Mental Status Change Other reaction(s): Unknown Milnacipran Hcl09/26/2016 Other Reaction(s): Unknown OkyjqybjpbaBuqnhNnpjyx99/18/4322TqinjxjmmxCplxgmsmCogygs94/29/2013 Other Reaction(s): Unknown ORAL ONLY--SWELLING WITH LONG TIME USE Per care everywhere, causes swelling ORAL ONLY--SWELLING WITH LONG TIME USE Other Reaction(s): Unknown GgkcqwjbqkUolpqJtkk37/28/2013 Other Reaction(s): Unknown Chest Pain CHEST PAINS Chest pain ZgaytoaofBbtzrr23/10/2022 Other Reaction(s): Anaphylaxis VortioxetineNausea And KymysinvPgsdyy61/30/2018 Other Reaction(s): GI Intolerance, Nausea And Vomiting Other reaction(s): GI Intolerance Other Reaction(s): GI Intolerance Medications MedicationSigDispense QuantityRefillsLast FilledStart DateEnd DateStatus albuterol HFA 90 mcg/act inhaler 07/24/2022ctive albuterol (2.5 MG/3ML) 0.083% nebulizer solution every 8 (eight) hours.Active Lipitor 80 MG tablet 1 (one) time each day at the same time.Active baclofen (Lioresal) 10 MG tablet every 6 (six) hours.Active buPROPion XL (Wellbutrin XL) 300 MG 24 hr tablet 01/13/2023ctive diclofenac sodium 1 % gel 11/24/2022ctive famotidine (Pepcid) 40 MG tablet Take 40 mg by mouth in the morning.03/18/2023ctive Advair HFA 230-21 MCG/ACT inhaler 01/31/2023ctive folic acid (Folvite) 1 MG tablet 1 (one) time each day at the same time.Active Synthroid 50 MCG tablet 1 (one) time each day at the same time.Active loratadine (Claritin) 10 MG tablet 1 (one) time each day at the same time.Active metoclopramide (Reglan) 10 MG tablet every 8 (eight) hours.Active Singulair 10 MG tablet 1 (one) time each day at the same time.Active pantoprazole (ProtoNix) 40 MG EC tablet 01/07/2023ctive SEROquel 400 MG tablet 1 tablet Orally at bedtime for 90 daysActive valsartan (Diovan) 80 MG tablet 1 (one) time each day at the same time.Active warfarin (Coumadin) 5 MG tablet 1 (one) time each day at the same time.Active aspirin 81 MG chewable tablet Chew 81 mg.Active zolpidem (Ambien) 10 MG tablet Indications:Insomnia due to medical condition1 tablet Orally at bedtime for 30 days 90 tablet 07/26/2023ctive biotin 1000 MCG tablet See Instructions, Instructions: 2tab(s) Oral Daily and 1 tab at night, 0 Refill(s)11/15/2023ctive sennosides 17.2 MG tablet 17.2 mg11/15/2023ctive gabapentin (Neurontin) 300 MG capsule Indications:Lumbar radiculopathyTAKE 1 CAPSULE IN THE MORNING AND 1 CAPSULE AT NOON AND 1 CAPSULE IN THE EVENING AND 1 CAPSULE BEFORE BEDTIME 360 capsule 4Active naltrexone (Depade) 50 MG tablet Take by mouthActive kwgunqvprd-jxdukuilffjgm-pisbqmhd-codeine (Fioricet W/Codeine) 06-375-69-30 MG capsule Indications:Migraine without aura and without status migrainosus, not intractableTake 1 capsule by mouth every 6 (six) hours if needed for headaches 20 capsule 5Active Ubrogepant (Ubrelvy) 100 MG tablet Indications:Migraine without aura and without status migrainosus, not intractableTake 1 tablet by mouth if needed (May repeat in 2 hours. Max of 2 tablets in 24 hours. Max 3 days aweek) 10 tablet [id number] Emgality 120 MG/ML auto-injector Indications:Migraine without aura and without status migrainosus, not intractableINJECT 1 PEN (120 MG) UNDER THE SKIN EVERY 30 DAYS 3 mL 5Active propranolol LA (Inderal LA) 60 MG 24 hr capsule Indications:Migraine without aura and without status migrainosus, not intractableTAKE 1 CAPSULE DAILY. DO NOT CRUSH, CHEW OR SPLIT 90 capsule 5Active verapamil (Calan) 80 MG tablet Indications:Migraine without aura and without status migrainosus, not intractableTAKE 1 TABLET DAILY 90 tablet 5Active Active Problems ProblemNoted DateDiagnosed DateObesity, gmpexj675Chronic deep vein thrombosis (DVT) of proximal vein of lower mzntcratr14/27/3447Izhfsmzq73/15/2024 Overview (11/26/2023): MIGRAINES Fdfikw6307/26/2023ack pain07/26/2023 Overview (07/26/2023): MID TO LOWER Clonkwln06/13/2023TIA (transient ischemic attack)07/26/2023 Overview (07/26/2023): LAST 2011 Tmskcjgtyb51/13/2023Misuse of prescription only drugs07/26/20237190Ruzslf30/17/2023 Bipolar 1 iyvdhnbe27/17/2023ipolar II /17/2023lood coagulation disorder ([facility])03/29/2023Migraine without aura and without status migrainosus, not rjomfnzgwep66/17/2023ognitive ymxtkhqkls71/17/2023Inattention 03/29/2023egeneration of lumbar intervertebral disc03/29/2023isc displacement, mkvsxr5203/29/2023astro-esophageal reflux disease without skkugtbemye56/17/2023 Generalized anxiety /17/2023Hallux valgus (acquired), left foot 03/29/20239576Yeahzzwofcrudp27/17/6029Ucbrenkbpygdtz75/17/2023Lumbar radiculopathy 03/29/2023Lupus anticoagulant disorder ([facility])03/29/2023Occipital neuralgia 03/29/2023Other chronic pain03/29/2023anic disorder with cdsfxolyvlw60/17/2023 Primary osteoarthritis of left foot03/29/2023Refractory migraine with aura 03/29/2023Sacroiliitis, not elsewhere uudmqlydzo25/17/2023Sensorineural hearing loss, iudtzffzv84/17/2023Spondylosis of lumbar region without myelopathy or gbltqjfzjhiax37/17/2023ilateral iqlqbnfx02/17/2057Hiskefup71/17/2023 Fibromyalgia, xkzufbd7005/20/2022Generalized jooxchtizxzpov78/07/2022Hypertension 05/20/2022Hypothyroidism due to Cristi's bcxofsgfaia44/07/2022Nephrolithiasis 05/20/2022resence of vena cava uqvxjo6905/20/20221260Hxccom03/28/2022ltered mental tmipfv8612/07/2021Long term (current) use of qkkdepjcedwxdf72/14/2022Delirium 10/29/2021History of 2019 novel coronavirus disease (COVID-19)10/29/2021 Contusion of left thigh2Other abnormalities of gait and mobility 10/28/2021bnormal gait10/28/2021equelae of injury to lower onsrkyvmx62/15/2022 Difficulty in walking, not elsewhere ameqlbpqqi81/11/2022Muscle weakness (generalized)2Other qgzenzr81/11/2022Other problems related to life management ahalhciunt52/11/2022hronic kidney disease, stage 3 unspecified 10/23/2021onstipation, uqzkfgwbsrn72/10/2022OVID-19010/23/2021History of lkjxzij2310/23/2021Insomnia, oemitltdaxe44/10/2022resence of left artificial hip joint10/23/2021Vitamin D deficiency, hjqijsolrkx55/10/2022isorder of vein 10/23/2021Fall10/23/20212218Clxvvsmt54/24/4641Gvmgxqqn16/20/2020Deep vein thrombosis (DVT)05/18/2019 Overview (07/26/2023): S/P IN LEG, RIGHT ARM, AND THROAT; 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 Seen by Dr. Arguello ([facility]) this morning and patient to follow-up for repeat labs with PCP as well.Patient states understanding. - Mobilize, WBAT, Anterior Hip Precautions - Cont bowel regimen - Maintain dressing x 7 days post op then change Opsite dressing and maintain until follow-up appointment, january shower - PT following - Ortho stable, plan for discharge today - [facility] for medical management, appreciate care - [...] the bed elevated and to limit narcotics. Last Assessment & Plan: POD # 2 - Pt HD stable Lab Results Component Value Date HGB 10.9 (L) 11/10/2017 - Continue pain control prn. Patient does seepain management. Will send home with Percocet 5mg [...] - Cr 1.29. Seen by Dr. Arguello ([facility]) this morning and patient to follow-up for repeat labs with PCP as well. Patient states understanding. - Mobilize, WBAT, Anterior Hip Precautions - Cont bowel regimen - Maintain dressing x 7 days post op then change Opsite dressing and maintainuntil follow-up appointment, may shower - PT following - Ortho stable, plan for discharge today - [facility] for medical management, appreciate care - f/u [...] had 4 sleep studies and all of themwere fine . Encourage patient to follow up with their PCP for reevaluation. Patient seen by RT hereand has had no needs overnight. Instructed patient to sleep with the head of the bed elevated and to limit narcotics. Degenerative joint disease (DJD) of hip11/09/2017 Overview (07/26/2023): Last Assessment & Plan: POD #2 right anterior GREGORIO - Pt HD stable - Lab Results Component Value Date HGB 9.6 (L) 08/31/2018 - Continue current pain regimen, is on MS Contin in addition to other oral pain meds - Cont IS q1 hr and upon d/c - Cont dvt prophylaxis with Lovenox, jw hose, and early ambulation. Coumadin, pharmacy dosing. - Mobilize, WBAT, Anterior Hip Precautions - Cont bowel regimen - Maintain dressing x 7 days post op then change Opsite dressing and maintain until follow-up appointment, may shower. Instructed daughter on changing at home. - PT/OT to eval and treat - Questions answered. Patient and daughter updated at bedside. Patient seen and plan discussed with Dr. Elizabeth Disposition: Discharge home Chronic antral yggfzfjxi92/20/2017Acute metabolic zpozyekgrnzypg01/15/2017CAD (coronary artery disease)09/27/2016H/O: CVA (cerebrovascular accident)09/27/2016 Uhdtvqinbgki44/15/2017Mild persistent awslwq1406/16/2016Acquired blindness of one eye01/15/2016Other optic atrophy, right eye01/15/2016Intractable chronic migraine without aura and without status bywneixicnu35/14/2016Iron deficiency wokfcp5204/12/2014nticoagulation management /24/2013History of deep venous fizcrmephw57/24/2013Ischemic optic pveunrztka84/18/2013Systemic lupus akyqbrrceakvg15/16/2013Optic wplxexlntv92/28/2013History of blood transfusion 09/13/2012History of cardiac cath09/13/1998 Overview (07/26/2023): Normal Cerebrovascular accident (CVA)09/13/1994 Encounters DateTypeDepartmentCare LmzbKnszsjwqzet05/21/2025 10:00 AM EDTOffice Visit [facility] [address] [phone] Kobi Latham, DO Well woman exam with routine gynecological exam; Breast cancer screening by mammogram; Postmenopausal state07/03/2025amboo flowsheet [facility] [address] [place] [phone] Kobi Latham, 05/08/2025Refill [facility] [address] [place] [address] Kurt Levin MD Migraine without aura and without status migrainosus, not intractable (Primary Dx)05/02/2025Refill [facility] [address] [place] [address] Kurt Levin MD Migraine without aura and without status migrainosus, not pbuuqowmzsq69/23/2025 Refill [facility] [address] [place] [address] Kurt Levin MD Migraine without aura and without status migrainosus, not intractablefrom Last 3 Months Family History Medical HistoryRelationNameCommentsHeart diseaseFatherDiabetesMotherHeart diseaseMotherHypertensionMotherDiabetesSiblingHypertensionSiblingLung cancer SiblingProstate cancerSiblingThyroid cancerSiblingRelationNameStatusComments FatherDeceasedMotherDeceasedSibling Social History Tobacco UseTypesPacks/DayYears UsedDateSmoking Tobacco: NeverSmokeless Tobacco: Never Tobacco Cessation:Counseling Given: Not Answered Alcohol UseStandard Drinks/WeekCommentsNever0 (1 standard drink = 0.6 oz pure alcohol)caffeine: 1-2 cups per dayEducationAnswerDate RecordedWhat is the highest level of school you have completed or the highest degree you have received?High school xijtjnwv85/29/2023CommentsNoSex and Gender InformationValueDate RecordedSex Assigned at WlfirIcwsuf59/10/2023 10:15 AM EDT Legal AfjDxwcot65/15/2023 6:48 PM EDTGender DxhdaildKusbra41/15/2023 6:48 PM EDT Sexual OrientationNot on fileOccupationIndustryJob Start DateJob End Date DisabledNot on fileNot on fileNot on file Last Filed Vital Signs Vital SignReadingTime TakenCommentsBlood Cuaxmjgc949/8010 10:07 AM EDT Tdgjd968307/26/2023 10:37 AM ESTTemperature--Respiratory Rate--Oxygen Saturation-- Inhaled Oxygen Concentration--Rqmbij00.8 kg (206 lb 12.8 oz)07/03/2025 10:07 AM EHVWmwged235.1 cm (5' 5 )03/23/2025 11:19 AM EDTBody Mass Index34.4107 11:19 AM EDT Plan of Treatment DateTypeDepartmentCare Team (Latest Contact Info)Ncmytreafjs84/14/2025 10:00 AM ESTOffice Visit [facility] [address] [place] [address] Kurt Levin MD [address] [facility] [address] [place] [address] [phone] 07/15/2026 10:00 AM ESTProcedure Visit [facility] [address] [place] [address] Kobi Latham DO [address] [place] [address] Insurance Care Teams Team MemberRelationshipSpecialtyStart DateEnd Date Don Hobson MD PCP - GeneralInternal Blfsosym05/10/23
--- OUTSIDE RECORDS SUMMARY | 2025-07-03 12:19 | XMS_ITS | Encounter Summary ---
Author Organization [facility] Address [address] [place] [address] Care Team Providers Care Retail Merchandising Coordinator Name Role Phone Don Hobson MD Primary Care Provider [phone] Encounter Details DateTypeDepartmentCare Team (Latest Contact Info)Miscztbfmty11/21/2025amboo flowsheet [facility] [address] [place] [address] Kobi Latham DO [address] [facility] [place], [place] [id number] Social History Tobacco UseTypesPacks/DayYears UsedDateSmoking Tobacco: NeverSmokeless Tobacco: NeverAlcohol UseStandard Drinks/WeekCommentsNever0 (1 standard drink = 0.6 oz pure alcohol)caffeine: 1-2 cups per dayEducationAnswerDate RecordedWhat is the highest level of school you have completed or the highest degree you have received?High school mypfhczb04/29/2023CommentsNoSex and Gender InformationValueDate RecordedSex Assigned at IpxwjFkfwtc93/10/2023 10:15 AM EDT Legal NxqYsxzrb26/15/2023 6:48 PM EDTGender MmyrrdyxLfwwwq50/15/2023 6:48 PM EDT Sexual OrientationNot on fileOccupationIndustryJob Start DateJob End Date DisabledNot on fileNot on fileNot on filedocumented as of this encounter Plan of Treatment DateTypeDepartmentCare Team (Latest Contact Info)Dhtqmxmwntr03/14/2025 10:00 AM ESTOffice Visit [facility] [address] [facility] [address] [place] [phone] Kurt Levin MD [address] [facility] [place], [place] [phone] 07/15/2026 10:00 AM ESTProcedure Visit [facility] [address] [facility] [address] [address] Kobi Latham DO [address] [facility] [place] [address] documented as of this encounter Visit Diagnoses Not on filedocumented in this encounter Care Teams Team MemberRelationshipSpecialtyStart DateEnd Date Don Hobson MD PCP - GeneralInternal Ozqccbjz86/10/23documented as of this encounter
--- OUTSIDE RECORDS SUMMARY | 2025-07-03 12:19 | XMS_ITS | Clinical Summary ---
Author Organization [facility] Address [address] [place] [address] Care Team Providers Care Human Services Professional Name Role Phone Don Hobson DO Primary Care Provider [phone] Allergies Active AllergyReactionsCriticalityNoted DateCommentsErythromycinOther (See Comments)Jrocqd6609/11/2016 SEVERE STOMACH CRAMPING LithiumOther (See Comments)High10/18/2017 COMA YgylnidbkpoYjqrm91/18/2085QzkljiuqpmOlkcqzuc04/05/2018 ORAL ONLY--SWELLING WITH LONG TIME USE VortioxetineGI Ewcujgjzsqg22/30/2018SertralineOther (See Comments)High09/11/2016 CHEST PAINS Medications MedicationSigDispense QuantityRefillsLast FilledStart DateEnd DateStatus venlafaxine (EFFEXOR-XR) 150 MG 24 hr capsule Indications:DEPRESSIONTake 150 mg by mouth every morning .Active montelukast (SINGULAIR) 10 mg tablet Indications:allergic rhinitisTake 10 mg by mouth nightly TAKES 1 TABLET ReasonsAllergic Rhinitis.Active atorvastatin (LIPITOR) 40 MG tablet Indications:hypercholesterolemiaTake 40 mg by mouth nightly TAKES 1 TABLET Reasonshypercholesterolemia.Active folic acid (FOLVITE) 1 MG tablet Indications:SUPPLEMENTTake 1 mg by mouth nightly TAKES 1 TABLET ReasonsSUPPLEMENT.Active dexlansoprazole (DEXILANT) 60 mg capsule Indications:gastroesophageal reflux diseaseTake 60 mg by mouth 2 (two) times a day TAKES 1 TABLET ReasonsGastroesophageal Reflux.Active baclofen (LIORESAL) 20 MG tablet Indications:FIBROMYALGIATake 20 mg by mouth 4 (four) times a day TAKES 1 TABLET ReasonsFIBROMYALGIA.Active gabapentin (NEURONTIN) 300 MG capsule Indications:neuropathic painTake 300 mg by mouth 4 (four) times a day TAKES 1 TABLET .Active FLUTICASONE/SALMETEROL (ADVAIR HFA INHL) Indications:ASTHMAInhale 2 (two) times a day DOES 2 PUFFS ReasonsASTHMA.Active whsmybq-uwdskicmuv-WAB-caff (updrwuwxjh-uebaezy-pfdlccsc-codeine) capsule Indications:MIGRAINESTake 1 capsule by mouth as needed for pain TAKES 2 TABLETS, EACH TABLET IS 30 MG .Active polyethylene glycol (MIRALAX) 17 gram powder Indications:constipationTake 17 g by mouth daily as needed MIXES WITH LIQUIDS. Active ondansetron (ZOFRAN) 4 MG tablet Indications:NauseaTake 4 mg by mouth every morning TAKES 1 TABLET .Active cholecalciferol, vitamin D3, (VITAMIN D3) 5,000 unit Tab tablet Indications:SUPPLEMENTTake 5,000 Units by mouth every morning TAKES 1 TABLET . Active fluticasone (FLONASE) 50 mcg/actuation nasal spray Indications:allergic rhinitisInstill 2 sprays into each nostril 2 (two) times a day DOES 2 SPRAYS IN EACH NOSTRIL .Active busPIRone (BUSPAR) 10 MG tablet Indications:generalized anxiety disorderTake 20 mg by mouth 2 (two) times a day .Active losartan (COZAAR) 100 MG tablet Indications:hypertensionTake 100 mg by mouth every morning .Active tiZANidine (ZANAFLEX) 4 MG capsule Indications:muscle spasmTake 4 mg by mouth nightly .Active linaclotide (LINZESS) 290 mcg Indications:ConstipationTake 290 mcg by mouth every other day .Active levothyroxine (SYNTHROID, LEVOTHROID) 25 MCG tablet Indications:hypothyroidismTake 37.5 mcg by mouth every morning .Active QUEtiapine (SEROQUEL) 400 MG tablet Indications:bipolar disorder in remissionTake 400 mg by mouth nightly .Active albuterol (PROVENTIL) 2.5 mg/0.5 mL Nebu Indications:acute asthma attackTake 2.5 mg by nebulization as needed .Active loratadine-pseudoePHEDrine (CLARITIN-D 24-hour) 10-240 mg per 24 hr tablet Indications:ALLERGIESTake 1 tablet by mouth nightly .Active aspirin 81 MG EC tablet Indications:HX STROKE AND TIA'STake 81 mg by mouth nightly .Active nystatin (MYCOSTATIN) powder Indications:GROIN AND UNDER BREASTSApply topically 2 (two) times a day .Active UNABLE TO FIND Apply topically 4 (four) times a day BACLOFEN/DICLOFENAC/GABAPENTIN/LIDOCAINE CREAM - HIPS AND MID-LOW BACK .Active famotidine (PEPCID) 20 MG tablet Take 1 (one) tablet (20 mg total) by mouth 2 (two) times a day . 60 tablet Active ondansetron (ZOFRAN) 4 MG tablet Take 1 (one) tablet (4 mg total) by mouth every 8 (eight) hours as needed for nausea . 15 tablet 08/29/2018Active warfarin (COUMADIN) 5 MG tablet Indications:S/P DVT IN LEG, RIGHT ARM, AND THROATTake 1 (one) tablet (5 mg total) by mouth Wednesday, Wednesday, Wednesday TAKES 2.5 MG ON SUNDAYS, TUESDAYS, AND THURSDAYS, and Wednesday. TAKES 5 MG ON MONDAYS, WEDNESDAYS, FRIDAYS. Start: 09/03/18. 12 tablet 09/03/2018Active azelastine (ASTELIN) 137 mcg (0.1 %) nasal spray Indications:perennial allergic rhinitis1 spray by Each Nare route 2 (two) times a day as needed for rhinitis .Active Active Problems ProblemNoted DateDiagnosed DatePrimary osteoarthritis of right hip08/30/2018 Primary osteoarthritis of left hip11/09/2017Degenerative joint disease (DJD) of hip11/09/2017 Assessment & Plan (09/01/2018 1:13 PM EST): POD #2 right anterior GREGORIO - Pt [...] discussed with Dr. Elizabeth Disposition: Discharge home History of qvvwpodcyeaelg53/01/2017History of stress test09/13/2012History of cardiac cath09/13/1998 Overview (08/30/2018): Normal Gtsuaf9609/13/1994Osteoarthritis of left hip Assessment & Plan (11/11/2017 11:11 AM EST): POD # 2 - Pt HD stable [...] - Cr 1.29. Seen by Dr. Arguello ([facility]) this morning and patient to follow-up for repeat labs with PCP as well. Patient states understanding. - Mobilize, WBAT, Anterior Hip Precautions - Cont bowel regimen - Maintain dressing x 7 days post op then change Opsite dressing and maintain until follow-up appointment, may shower - PT following - Ortho stable, plan for discharge today - [facility] for [facility] management, appreciate care - f/u [...] the bed elevated and to limit narcotics. 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 [employer] PANCHO UNDER[place]OD [phone] Presence of vena cava filterHyperlipidemiaDepressionCataractBack pain Overview (08/30/2018): MID TO LOWER Anemia Family History Medical HistoryRelationCommentsNo Known ProblemsBrotherDeep vein thrombosis FatherHeart diseaseFatherHeart diseaseMotherNo Known ProblemsSisterAnesthesia problemsNeg HxClotting disorderNeg HxPulmonary embolismNeg HxSurgical complicationsNeg HxRelationStatusCommentsBrotherFatherMotherSister Social History Tobacco UseTypesPacks/DayYears UsedDateSmoking Tobacco: NeverSmokeless Tobacco: NeverAlcohol UseStandard Drinks/WeekCommentsNo0 (1 standard drink = 0.6 oz pure alcohol)rarePHQ-2AnswerDate RecordedPHQ-2 Qwwun798CommentsNoSex and Gender InformationValueDate RecordedSex Assigned at BirthNot on fileLegal ZobCwcfbi67/07/2016 11:39 AM ESTGender HopxwrqyNcpczk17/30/2018 3:04 PM EST Sexual YjhcjmzhrctNcxmvvnk34/30/2018 3:04 PM EST Last Filed Vital Signs Vital SignReadingTime TakenCommentsBlood Arpdbjsr525/ 8:14 AM EST Xnamq803609/01/2018 8:14 AM JXOIbzywulkqaz51.8 ??C (98.2 ??F)09/01/2018 8:14 AM ESTRespiratory Ghck944011/02/2017 8:14 AM ESTOxygen Syukkthamz00%09/01/2018 8:17 AM ESTInhaled Oxygen Concentration--Hwoetr57.7 kg (204 lb 5.9 oz)08/30/2018 6:19 AM LUWZejovq055.1 cm (5' 5 )08/30/2018 6:19 AM ESTBody Mass Index34.01110/31/2017 6:19 AM EST Plan of Treatment Health MaintenanceDue DateLast DoneCommentsCT Cvgqenfsmtxh1961olonoscopy 1961olorectal Cancer Screening/Nczcdotvhl1961Fecal DNA1961 Fecal occult blood test (FOBT,FIT)1961Tetanus: Every 10yrs (RETIRED) 1961Wellness Visit1964Depression Screening/Follow-Up (PHQ-2/9) 1973HIV Khmnftyag28/22/1976Hepatitis C Gjlmgodbx79/22/1979Pap Smear 1982Cervical Cancer Lexjbifyw37/22/1991HPV/Qxunkb5506/04/1991Zoster Vaccines (1 of 2)2011Pneumococcal Vaccine: 50+ Years (2 of 2 - PCV20 or PCV21) COVID-19 Vaccine (1 - 2023- season)2025Influenza Vaccine (#1), 06/13/2018, 06/14/2017, Additional history existsRSV Vaccines (1 - 1-dose 75+ series)2036MammogramDiscontinued 01/25/2018 Medical Devices ImplantedTypeAreaManufacturerDevice IdentifierShelf Expiration DateModel / Serial / LotLiner 32mm C Flat [place] Mpact - [id number] Implanted:Qty: 1 on 11/09/2017 by Karthik Elizabeth MD at [facility]: ChqCKKNOFS65/23/202201.32.3239HCT / / [id number] 48mm 2hl Acet Mpact - [id number] Implanted:Qty: 1 on 11/09/2017 by Karthik Elizabeth MD at [facility]: HhsMWOMFDE82/05/202201.32.148DH / / [id number] Sz2 Std Fem Prox Coat Ti Amistem-H - [id number] Implanted:Qty: 1 [facility] 11[facility]09/[facility] YycBFFMUTC21/14/202301.18.172 / / [id number] 32mm +4 Fem Biolox Delta Mectacer - [id number] Implanted:Qty: 1 [facility] 11/09/2017 [facility]: MqvKILDLJO82/31/202001.29.206 / / [id number] 32mm D Flat [place] Mpact - [id number] Implanted:Qty: 1 on 08/30/2018 [facility] MteJAFGYQS55/22/202301.32.3241HCT / / [id number] 50mm 2hl Acet Mpact - [id number] Implanted:Qty: 1 on 08/30/2018 [facility]: BisYAQSJXN58/26/202301.32.150DH / / [id number] Femoral Stem Size 3, Type Std, Ti+Gusman Coated Implanted:Qty: 1 on 08/30/2018 [facility]: AtwMJSGNXG66/05/202301.18.403 / / [id number] 32mm +0 Fem Biolox Delta Mectacer - [id number] Implanted:Qty: 1 on 08/30/2018 by Karthik Elizabeth MD at [facility]: FeaDCWINMA33/26/202301.29.205 / / [id number] Insurance MemberSubscriberPlan / Payer (Effective 2003-Present)Name:Noemi Caballero Member ID:[id number] Relation to Subscriber:SelfName:Noemi Caballero Subscriber ID:[id number] Payer ID:Not on file Group ID:Not on file Type:Not on file Address: [facility] J15 [employer] A CLAIMS [address] [address] [place] [address] Advance Directives For more information, please contact: [phone] TypeDate RecordedPatient RepresentativeExplanationAdvance Directives and Living Will08/16/2018 12:10 PM * Full Code (Latest Code Status on File) Date ActivatedDate LwxuuhnfoxgKhoptula34/18/2018 7:57 AM * Full Code Date ActivatedDate InactivatedComments11/09/2017 11:04 AM08/30/2018 6:00 AM Care Teams Team MemberRelationshipSpecialtyStart DateEnd Date Don Hobson DO [address] [place] [id number] PCP - GeneralInternal Cmmggonf59/30/16
--- OUTSIDE RECORDS SUMMARY | 2025-07-03 12:20 | XMS_ITS | CCD ---
Author Organization [facility] Care Team Providers Care Wardrobe Consultant Name Role Phone Alexander Chen Unavailable Rossana Reid Unavailable ROSANGELA DUMONT Unavailable Unavailabl e YUDONTAS, ALEXANDER JOSE Unavailable Unavailable LINA ELIZABETH Unavailable Unavailable LINA ELIZABETH Unavailable [facility]available [facility] Unavailable U navailable YUDONTAS, ALEXANDER JOSE Unavailable Unavailable LINA ELIZABETH Unavailable Unavailable ROSSANA REID Unavailable Unavailable YUHAS, ALEXANDER JOSE Unavailable Unavailable LINA ELIZABETH Unavailable Unavailable LINA ELIZABETH Unavailable Unavailable YUHAS, ALEXANDER JOSE Unavailable Unavailable LINA ELIZABETH Unavailable Unavailable LINA ELIZABETH Unavailable Unavailable [facility] Unavailable U navailable YUHAS, ALEXANDER JOSE Unavailable Unavailable LINA ELIZABETH Unavailable Unavailable ROSSANA REID Unavailable Unavailable YUDONTAS ALEXANDER JOSE Unavailable Unavailable Alexander Chen Primary Care Provider [phone] SHEREE VILLAR Referring Unavailable ALEXANDER CHEN Primary Care Unavailable KAREN MENJIVAR, DR ТАТЬЯНА Sorto Admitting Unavailantoni JONES JR, DR ТАТЬЯНА Sorto Attending Unavailabl e APRIL, DR MUNOZ Primary Care Unavailable SOFIA, DR YESENIA Russell Consulting Unavailable KAREN MENJIVAR, DR ТАТЬЯНА Sorto Consulting Unavailantoni LATHAM, DR PAK Admitting Unavailable NOA, DR PAK Attending Unavailable APRIL, DR MUNOZ Primary Care Unavailable [place], DR LANEY Diaz Consulting Unavailable NOA, DR PAK Consulting Unavailable NOA, DR PAK Admitting Unavailable NOA, DR PAK Attending Unavailable APRIL, DR MUNOZ Primary Care Unavailable NOA, DR PAK Consulting Unavailable ALEXANDER CHEN Primary Care Physician [phone] Yuhas, DO Alexander Primary Care Provider [phone] MD Mati Underwood Attending Provider Yuhas, DO Alexander Primary Care Provider [phone] MD Pancho Underwood Attending Provider [phone] Yuhas, DO Alexander Primary Care Provider Jaden, DIANE-C Carlotta Sorto Attending Provider Alexander Chen MD Primary Care Provider YUHAS, ALEXANDER L Referring Unavailable YUHAS, ALEXANDER L Primary Care Unavailable YUHAS, ALEXANDER L Referring Unavailable YUHAS, ALEXANDER L Primary Care Unavailable Orzech, Leann X Admitting Unavailable Orzech, Leann X Attending Unavailable GERRY, ANDRE E Attending Unavailable GERRY, ANDRE E Attending Unavailable GERRY, ANDRE E Attending Unavailable GERRY, ANDRE E Attending Unavailable GERRY, ANDRE E Attending Unavailable GERRY, ANDRE E Attending Unavailable GERRY, ANDRE E Attending Unavailable GERRY, ANDRE E Admitting Unavailable Lue, Kasandra M. Admitting Unavailable Lue, Kasandra M. Attending Unavailable LeonorAlexander lancaster DO Primary Care Provider Alexander Chen DO Primary Care Provider Alexander Chen MD Primary Care Provider NITHYAS, ALEXANDER L Referring Unavailable YUHAS, ALEXANDER L Primary Care Unavailable YUHAS, ALEXANDER L Attending Unavailable YUHAS, ALEXANDER L Referring Unavailable YUHAS, ALEXANDER L Primary Care Unavailable YUHAS, ALEXANDER L Attending Unavailable YUHAS, ALEXANDER L Referring Unavailable YUHAS, ALEXANDER L Primary Care Unavailable Yuhas, Alexander Primary Care Unavailable Carlotta Stanley Admitting Unavailable Carlotta Stanley Attending Unavailable Sophy Riddle Admitting Unavail able Sophy Riddle Attending Unavail able Yuhas, Alexander Primary Care Unavailable OLIMPIA SHEPHERD Attending Unavailable MAURO LEVIN Attending Unavailable MAURO LEVIN Attending Unavailable KOBI LATHAM Attending Unavailable MAURO LEVIN Attending Unavailable LINA SCHWAB Admitting Unavailable LINA SCHWAB Attending Unavailable Provider, None Primary Care Unavailable YUHAS, ALEXANDER L Primary Care Unavailable LINA SCHWAB Admitting Unavailable KINDLINA Sorto Attending Unavailable Provider, None Primary Care Unavailable Jewell, Jillian M Admitting Unavailable Jewell, Jillian M Attending Unavailable Jewell, Jillian M Admitting Unavailable Jewell, Jillian M Attending Unavailable Provider, None Primary Care Unavailable Provider, None Primary Care Unavailable Jewell, Jillian M Admitting Unavailable Jewell, Jillian M Attending Unavailable Lina Schwab MD Attending Grecia del valle Yuhas DO, Alexander Garcia Primary Care Unavailab le Jewell REPAIRER-LINE MAINTAINER SECTION, Jillian Hernandez Attending U navailable Yuhas DO, Alexander Garcia Primary Care Unavailab le Jewell REPAIRER-LINE MAINTAINER SECTION, Jillian Hernandez Attending U navailable Yuhas DO, Alexander Jose Primary Care Unavailab le SERVICE, MOHIT Referring Unavailable YUHAS, ALEXANDER L Primary Care Unavailable SERVICE, JOBSHarini Referring Unavailable YUHAS, ALEXANDER L Primary Care Unavailable SERVICE, JOBSHarini Referring Unavailable YUHAS, ALEXANDER L Primary Care Unavailable MEDICATION MANAGEMENT, [facility] Referr ing Unavailable YUHAS, ALEXANDER L Primary Care Unavailable YUHAS, ALEXANDER L Attending Unavailable YUHAS, ALEXANDER L Referring Unavailable YUHAS, ALEXANDER L Primary Care Unavailable MEDICATION MANAGEMENT, [facility] Referr ing Unavailable YUHAS, ALEXANDER L Primary Care Unavailable MEDICATION MANAGEMENT, [facility] Referr ing Unavailable YUHAS, ALEXANDER L Primary Care Unavailable MEDICATION MANAGEMENT, [facility] Referr ing Unavailable YUHAS, ALEXANDER L Primary Care Unavailable MEDICATION MANAGEMENT, [facility] Referr ing Unavailable YUHAS, ALEXANDER L Primary Care Unavailable MEDICATION MANAGEMENT, [facility] Referr ing Unavailable YUHAS, ALEXANDER L Primary Care Unavailable MEDICATION MANAGEMENT, [facility] Referr ing Unavailable YUHAS, ALEXANDER L Primary Care Unavailable MEDICATION MANAGEMENT, [facility] Referr ing Unavailable YUHAS, ALEXANDER L Primary Care Unavailable PANCHO UNDERWOOD Referring Unavailable YUHAS, ALEXANDER L Primary Care Unavailable ZOE NORRIS Attending Unavailable YUHAS, ALEXANDER L Referring Unavailable YUHAS, ALEXANDER L Primary Care Unavailable MEDICATION MANAGEMENT, [facility] Referr ing Unavailable YUHAS, ALEXANDER L Primary Care Unavailable MEDICATION MANAGEMENT, [facility] Referr ing Unavailable YUHAS, ALEXANDER L Primary Care Unavailable [facility] Referr [facility] Unavailable ALEXANDER CHEN Primary Care Unavailable ALEXANDER CHEN Admitting Unavailable ALEXANDER CHEN Attending Unavailable ALEXANDER CHEN Referring Unavailable ALEXANDER CHEN Primary Care Unavailable Alexander Chen DO Primary Care Provider [phone] Allergies Allergy ClassificationReported Allergen(s)Allergy TypeDate of OnsetReaction(s) FacilityCorticosteroids (1 source)predniSONEDrug Lvjfpqw57-59-8951YqnrrzymKklefeliv Regional Medical CenterLithium (1 source)LithiumDrug Tqzfyht61-22-0010st states put me in a coma [facility]lubiprostone (1 source)lubiprostoneDrug Iessqik63-88-3542QBYVAMXFQuwnpwserAdena Pike Medical Centermilnacipran (1 source)milnacipranDrug Ultpzwk61-80-8874DlibrnunmDuvdfikmt Regional Medical CenterNSAIDs (1 source)meloxicamDrug Unrgkuo78-25-2276ehini in urineSelect Medical [facility]ty Hospital [facility]-FairhillPenicillins (antibiotic) (1 source)AmoxicillinDrug Ulfchoq09-71-9137FhkymCntuhbgkgGenesis Hospitalerotonin Reuptake Inhibitors (SSRIs) (1 source)SertralineDrug Rbckjka31-25-5516Swuix PainSelect Medical Specialty Hospital [facility]-Fairhillvortioxetine (1 source)vortioxetineDrug Udsjfbo16-94-2392YshdbwufSjszbxvdvCleveland [facility] (20 sources)erythromycin; Translations: [ERYTHROMYCIN]Propensity to adverse reactions to uiam31-36-2370Nbynx (See Comments), Unknown (qualifier value), Hives, Abnormal BehaviorShelby [facility] Hospital Work Phone: (20 sources)lithium; Translations: [LITHIUM]Propensity to adverse reactions to uhby04-56-0516Wfjrd (See Comments), Unknown (qualifier value), Hives, Confusion [facility] Work Phone: (20 sources)predniSONE; Translations: [PREDNISONE]Propensity to adverse reactions to bfoc46-78-8323Bcdgmvmx, Unknown (qualifier value)[facility] Work Phone: (20 sources)sertraline; Translations: [SERTRALINE]Propensity to adverse reactions to ulnn82-37-9105Einko (See Comments), Unknown (qualifier value), HivesOhioHealth Work Phone: (20 sources)Penicillins; Translations: [PENICILLINS]Propensity to adverse reactions to drug (disorder)23-73-9050AwgobOpsw Health Two Repository (20 sources)vortioxetine; Translations: [VORTIOXETINE]Drug Btpqjxn79-56-3030 Nausea And VomitingMagruder [facility] Hospital [facility] Rep[facility] (20 sources)milnacipranDrug Srbqmxb89-53-8111Tdr[facility] Health Work Phone: (7 sources)Amoxicillin; Translations: [amoxicillin]Drug Nfegdvu86-17-1354Mawzw [facility] Repository (20 sources)Erythromycin; Translations: [erythromycin base]Drug Allergy 81-15-7662Cgqpqwwlluoypbcb UpsetTHenry [facility] Hospital Rep[facility] (1 source)LithiumDrug Uulbotx36-33-8058Zrx [facility] Repository (1 source)meloxicamDrug AllergyAv[facility] Health [facility] Rep[facility] (7 sources)meloxicam; Translations: [MELOXICAM]Drug Dgpxzwc65-39-9328tytxf in urineAvita [facility] Rep[facility] (2 sources)milnacipran; Translations: [Savella]Drug Yrqhbci90-95-1796Twz [facility] Repository (1 source)predniSONEDrug Wfadelk66-00-4353Ncz [facility] Repository (4 sources)Sertraline; Translations: [Zoloft]Drug AllergyAv[facility] (11 sources)vortioxetine; Translations: [vortioxetine]Drug AllergyBlood in urine (finding)[facility] Rep[facility] (20 sources)Amoxicillin; Translations: [amoxicillin]Drug Dawqath54-62-9032Vsif (disorder), HivesExecutive Urology of [facility] (20 sources)milnacipran; Translations: [milnacipran]Drug Afhmmwl93-43-2660 Unknown (qualifier value), Other (See Comments)[facility] (20 sources)lubiprostoneDrug Lbntrcg91-15-9268QBIB Healthcare (20 sources)lurasidoneDrug Mgjsfht88-64-1569MPQO Healthcare (20 sources)meloxicamDrug Wvxohuu11-98-7482QPMM Healthcare (20 sources)milnacipranDrug Yyfzkwz48-59-2288EdhvrYTTV Healthcare (20 sources)PrednisoneAllergy to mapfmlhkc71-25-0987UfaqxieaHZBU Healthcare (20 sources)sevelamer; Translations: [SEVELAMER]Drug Qmaebff75-51-6779OKWG [facility] (20 sources)LITHIUM ANALOGUES; Translations: [LITHIUM ANALOGUES]Propensity to adverse reactions to drug (disorder)45-52-2669Mxhqd (See Comments)[facility] Repository (20 sources)meloxicamDrug Leylwit34-17-2498XiaFezfts [facility] Work Phone: (20 sources)sevelamerDrug Vpreifs14-99-6605PymzbVpwNizuhi Health System (20 sources)Azithromycin; Translations: [AZITHROMYCIN]Drug Acqzder52-24-8472 [facility] (1 source)AmoxicillinDrug Mtjqkir06-06-2272NmkgrhtedSelect [facility] (1 source)ErythromycinDrug Hhvxjco53-45-8422FpzubywulSelect [facility] (1 source)LithiumDrug Rtvtgig38-43-9243QdohopdyvSelect [facility] (1 source)lubiprostoneDrug Ccdygna09-47-1223MlyzghtbbSelect [facility] (1 source)meloxicamDrug Anmpbgz04-02-0711NynwxksvaSelect [facility] (1 source)milnacipranDrug Rzskzoy80-59-8972MzwgjuvsgSelect [facility] (1 source)predniSONEDrug Dhyaqzz42-47-4697LoiiioalpSelect Medical [facility]ty [facility] (1 source)SertralineDrug Dcmxkeh03-62-3066ColfcyumeSelect [facility] (1 source)lurasidone; Translations: [Latuda]Drug AllergyCleveland Clinic Repository Medications Current Medications MedicationDrug Class(es)DatesSig (Normalized)Sig (Original)acetaminophen 325 mg / butalbital 50 mg / caffeine 40 mg / codeine phosphate 30 mg oral capsule (20 sources)Opioid Agonist, Barbiturate, Central Nervous System Stimulant, MethylxanthineStart: 01-15-2025 End: 32-97-3628wtdb 50-325 capsules by mouth every six hours fhuyxarlsq-mylltwceqqobj-gffaeqau-codeine (Fioricet W/Codeine) 09-332-64-30 MG capsule Indications:Migraine without aura and without status migrainosus, not intractable Take 1 capsule by mouth every6 (six) hours if needed for headaches 20 capsule 01/15/2025 ActiveStart: 12-08-2019 acetaminophen/butalbital/caffeine/codeine 300 mg-50 mg-40 mg-30 mg oral capsule 2 cap(s), Oral, Migraine headache, Refill(s) 0 Start Date: 12/08/19 Status: Orderedacetaminophen 325 mg / oxyCODONE hydrochloride 5 mg oral tablet (7 sources)Opioid AgonistStart: 15-37-6556qvye 1 tablet by mouth three times dailyOxycodone-Acetaminophen (Percocet) 5-325 mg Tablet Active 1 TAB PO Three times daily February 02, 202012:00amStart: 11-11-2017 End: 00-72-7271dlao 1 tablet by mouth once as needed for pain, then take 2 tablets by mouth every four to six hours as needed for painoxyCODONE- acetaminophen (PERCOCET) 5-325 mg per tablet Indications: Osteoarthritis of left hip, unspecified osteoarthritis type Take 1 (one) tablet to 2 (two) tablets by mouth every 4 to 6 hours as needed for pain. 30 tablet 0 11/11/2017 11/18/2017 ActiveStart: 11-09-2017 End: 61-21-3797bvmb 1-2 tablets by mouth every four hours as needed End: 27-08-4304glfr 1 tablet by mouth every six hours as neededoxyCODONE- acetaminophen (PERCOCET) 5-325 mg per tablet Take 1 tablet by mouth every 6 (six) hours as needed for pain TAKES 1 TABLET . 11/11/2017 Discontinuedalbuterol 0.83 mg/ml inhalation solution (20 sources)beta2-Adrenergic AgonistStart: 60-02-0238axrl 3 mL by inhalation four times dailyalbuterol (PROVENTIL,VENTOLIN) 2.5 mg /3 mL (0.083 %) nebulizer solution Indications: Mild persistent asthma without complication Inhale 3 mL (2.5 mg total) by nebulization 4 (four) times a day. 75 mL 1 12/28/2024 Active Start: 16-49-9293uzuxpctdy (PROVENTIL HFA;VENTOLIN HFA) 90 mcg/actuation inhaler Indications: Mild persistent asthmawithout complication USE 2 INHALATIONS EVERY 6 HOURS NEEDED FOR WHEEZING 17 g 6 11/08/2024 ActiveStart: 03-08-2024 End: 57-20-0334nkeb 2 puff(s) by inhalation every six hours as needed for wheezingalbuterol (PROVENTIL HFA;VENTOLIN HFA) 90 mcg/actuation inhaler Indications: Mild persistent asthmawithout complication Inhale 2 puffs every 6 (six) hours as needed for wheezing. 18 g 3 03/08/2024 11/08/2024 Discontinued Start: 96-54-5553ubbuqwjju HFA 90 mcg/act inhaler 07/24/2022 ActiveStart: 32-95-1721bjuj 2.5 mg by inhalation four times dailyAlbuterol Sulfate Active 2.5 MG INHALATION Four times daily February 02, 2020 12:00amStart: 44-39-4085uzqaclmod 2.5 mg, NEB, Refills(s) 0, Asthma Start Date: 12/08/19 Status: Orderedalbuterol (2.5 MG/3ML) 0.083% nebulizer solution every 8 (eight) hours. Activetake 2 puff(s) by inhalation every six hours as needed for wheezingalbuterol sulfate HFA 108 (90 BASE) MCG/ACT inhaler Inhale 2 puffs into the lungs every 6 hours as needed for Wheezing 0 Activeaspirin 81 mg delayed release oral tablet (20 sources)Nonsteroidal Anti-inflammatory DrugStart: 06-51-0593ofln 81 mg by mouth once daily at bedtimeAspirin Active 81 MG PO Daily at bedtime February 02, 2020 12:00amStart: 34-86-4449adkk 1 mg by mouth once dailyaspirin 81 mg oral tablet mg tab(s), Oral, Daily, Refills(s) 0 Start Date: 12/08/19 Status: Ordered aspirin 81 MG chewable tablet Chew 81 mg. Activetake 2 tablets by mouth once dailyaspirin 81 MG chewable tablet Take 162 mg by mouth daily 0 Active End: 68-88-9573gbnd 1 tablet by mouth onceaspirin 81 MG EC tablet Indications: Myocardial Reinfarction Prevention , prevention of transient ischemic attack Take 81 mg by mouth nightly TAKES 2 TABLETS ReasonsMyocardial Reinfarction Prevention, prevention of transient ischemic attack. 11/11/2017 Discontinued aspirin 325 mg / butalbital 50 mg / caffeine 40 mg / codeine phosphate 30 mg oral capsule (2 sources)Opioid Agonist, Barbiturate, Nonsteroidal Anti-inflammatory Drug, Central Nervous System Stimulant,Ksviuyfrgbrtciglwutqb-ieknxeyvmf-MFJ-caff (imkvrxckra-aodcszk-ilikhhbj-codeine) capsule Indications: MIGRAINES Take 1 capsule by mouth continuous as needed for pain TAKES 2 TABLETS, EACH TABLET IS 30 MG ReasonsMIGRAINES. Activeatorvastatin 80 mg oral tablet (20 sources)HMG-CoA Reductase InhibitorStart: 01-04-2024 End: 40-12-5461crgtoowzvbxp (LIPITOR) 80 mg tablet Indications: Mixed hyperlipidemia TAKE 1 TABLET IN THE MORNING 90 tablet 3 07/02/2025 ActiveStart: 61-67-6198kquw 1 mg by mouth once dailyLipitor 40 mg Tab mg tab(s), Oral, Daily, Refills(s) 0 Start Date: 12/08/19 Status: OrderedStart: 11-09-2017 End: 34-42-1947zjibybfl 10 mg oral tablet (20 sources)gamma-Aminobutyric Acid-ergic AgonistStart: 08-02-2024 End: 21-84-2031ycrrxmom (LIORESAL) 10 mg tablet Indications: Cervical spondylosis with radiculopathy TAKE 1 TABLETFOUR TIMES A DAY 360 tablet 01/03/2025 ActiveStart: 35-43-3715JKVLXHVW 10 MG TABLET BACLOFEN 10 MG TABLET Start Date: 08/25/23 Status: OrderedStart: 04-33-1634gigg 20 mg by mouth four times dailyBaclofen Active 20 MG PO Four times daily February 02, 2020 12:00am Start: 60-30-9656cvtv 1 tablet by mouth four times dailybaclofen 20 mg Tab 20 mg = 1 tab(s), Oral, QID, Refills(s) 0 Start Date: 12/08/19 Status: OrderedStart: 11-09-2017 End: 01-10-1219acwl 1 tablet by mouth four times dailybaclofen (LIORESAL) 20 MG tablet Indications: FIBROMYALGIA Take 20 mg by mouth 4 (four) times a dayTAKES 1 TABLET ReasonsFIBROMYALGIA. Activebetamethasone / clotrimazole (4 sources)Azole Antifungal, CorticosteroidStart: 47-49-6761zdyan 15 g topically once dailyLotrisone Active 15 GM TOPICAL Daily February 01, 2020 11:00pmStart: 65-33-1024bpkbb 15 g topically once dailyLotrisone Active 15 GM TOPICAL Daily February 02, 2020 12:00amStart: 11-10-2017 End: 61-85-9691sslkikrokfgr-betamethasone (LOTRISONE) creambiotin 1 mg oral tablet (20 sources)Start: 11-07-7569vyvaqx 1000 MCG tablet See Instructions, Instructions: 2tab(s) Oral Daily and 1 tab at night, 0 Refill(s) 11/15/2023 ActiveStart: 95-85-2693uthl 2 tablets by mouth once dailybiotin 1000 mcg oral tablet 2,000 mcg = 2 tab(s), Oral, Daily, # 30 tab(s), Refills(s) 0 Start Date: 02/04/21 Status: Orderedtake 1 tablet by mouth at bedtimeBIOTIN ORAL Take 1 tablet by mouth in the morning and at bedtime. Pvnner97 hr buPROPion hydrochloride 300 mg extended release oral tablet (20 sources)AminoketoneStart: 32-44-0877mjHPAIhxi XL (Wellbutrin XL) 300 MG 24 hr tablet 01/13/2023 ActiveStart: 45-63-6577oajc 150 mg by mouth once daily in the morningBupropion Hcl Active 150 MG PO Every morning February 02, 2020 12:00am Start: 62-73-7643puzf 1 mg by mouth twice dailybuPROPion 150 mg ER Tab mg tab(s), Oral, BID, Refills(s) 0 Start Date: 12/08/19 Status: OrderedbusPIRone hydrochloride 10 mg oral tablet (20 sources)Start: 02-04-2021 End: 39-64-9795yjlESMugy (BUSPAR) 10 mg tablet Take 1 tablet (10 mg total) by mouth. 02/04/2021 ActiveStart: 68-35-6275aats 10 mg by mouth once daily in the morningBuspirone Active 10 MG PO Every morning February 02, 2020 12:00amStart: 47-03-2738ewqt 20 mg by mouth once daily in the eveningBuspirone Active 20 MG PO Every evening February 02, 2020 12:00amcholecalciferol 0.125 mg oral tablet (20 sources)Vitamin DStart: 45-61-0029hrbo 1 tablet by mouth once daily Cholecalciferol (Vitamin D3) (Vitamin D3) 125 mcg (5,000 unit) Tablet Active 125 MCG PO Daily February 02, 2020 12:00amcholecalciferol, vitamin D3, 5,000 units tablet 1 tablet (5,000 Units total). ActiveCholecalciferol (VITAMIN D3) 2000 UNITS CAPS Take 1,000 Units by mouth daily 0 Activetake 1 tablet by mouth once daily in the morningcholecalciferol, vitamin D3, (VITAMIN D3) 5,000 unit Tab tablet Indications: SUPPLEMENT Take 5,000 Units by mouth every morning TAKES 1 TABLET . ActivecycloSPORINE 0.5 mg/ml ophthalmic suspension (15 sources)Calcineurin Inhibitor ImmunosuppressantStart: 27-61-0461qlto 1 drop(s) into the eye(s) every twelve hoursCyclosporine (Restasis) 0.05 % Dropperette Active 1 DROPS EYE-BOTH Q12H February 02, 2020 12:00am End: 65-99-7154hgfheZSIUDBK (Restasis) 0.05 % ophthalmic emulsion every 12 (twelve) hours. 09/22/2024 Discontinueddexlansoprazole 60 mg delayed release oral capsule (3 sources)Proton Pump Inhibitortake 1 capsule by mouth once daily dexlansoprazole (DEXILANT) 60 MG CPDR delayed release capsule Take 60 mg by mouth daily 0 Activetake 1 capsule by mouth twice dailydexlansoprazole (DEXILANT) 60 mg capsule Indications: gastroesophageal reflux disease Take 60 mg bymouth 2 (two) times a day TAKES 1 TABLET ReasonsGastroesophageal Reflux. Activediclofenac sodium 0.01 mg/mg topical gel (20 sources)Nonsteroidal Anti-inflammatory DrugStart: 60-56-3446qmsyivebcx sodium (VOLTAREN) 1 % gel Indications: Generalized osteoarthritis APPLY 2 GM TOPICALLY IN THE MORNING, AT NOON, IN THE EVENING, AND BEFORE BEDTIME 300 g 1 03/07/2024 ActiveStart: 60-33-6086hroxwfqkrf sodium 1 % gel 11/24/2022 Active1 ml enoxaparin sodium 100 mg/ml prefilled syringe (9 sources)Low Molecular Weight HeparinStart: 27-28-8488nrinis 1 mL by subcutaneous injection onceenoxaparin (LOVENOX) 100 mg/mL syringe Indications: Lupus anticoagulant disorder , Personal historyof DVT (deep vein thrombosis) Inject 1 mL (100 mg total) under the skin Every 12 (twelve) hours. 20mL 1 06/15/2025 ActiveStart: 11-13-2017 End: 67-56-2159wbet 80 mg by subcutaneous injection every twelve hoursenoxaparin (LOVENOX) 80 mg/0.8 mL Syrg Inject 0.8 mL (80 mg total) under the skin every 12 (twelve)hours for 2 days. 5 Syringe 0 11/13/2017 11/15/2017 ActiveStart: 11-11-2017 End: 82-89-6544nlrgxxuwbt (LOVENOX) 40 mg/0.4 mL Syrg Inject 0.4 mL (40 mg total) under the skin daily Take on Wednesday morning 11/12/2017 for 1 day. 1 Syringe 0 11/11/2017 11/12/2017 ActiveStart: 11-10-2017 End: 92-52-0548usegsfbcmb (LOVENOX) syringe 40 mgStart: 11-05-2017 End: 20-75-6600kvkt 80 mg by subcutaneous injection every twelve hoursenoxaparin (LOVENOX) 80 mg/0.8 mL Syrg Inject 0.8 mL (80 mg total) under the skin every 12 (twelve)hours for 6 doses. 6 Syringe 0 11/05/2017 11/08/2017 Activeenoxaparin (LOVENOX) 100 MG/ML injection Inject 1 mg/kg into the skin 2 times daily 0 Activefamotidine 40 mg oral tablet (20 sources)Histamine-2 Receptor AntagonistStart: 03-18-2023 End: 36-23-0682ugvm 1 tablet by mouth in the morningfamotidine (Pepcid) 40 MG tablet Take 40 mg by mouth in the morning. 03/18/2023 ActiveFeroSul 325 mg oral tablet (6 sources)Start: 33-89-1362FtvrArw 325 mg oral tablet Refills(s) 0 Start Date: 08/25/23 Status: Orderedferrous sulfate 325 mg oral tablet (20 sources)Start: 02-02-2020 End: 03-16-0164olfh 1 tablet by mouth in the morning, then take 1 tablet by mouth at mealtimeferrous sulfate (FeroSuL) 325 (65 FE) mg tablet Indications: Iron deficiency anemia due to chronic blood loss Take 1 tablet (325 mg total) by mouth in the morning and 1 tablet (325 mg total) in the evening. Take with meals. 180 tablet 1 06/13/2024 ActiveFish Oils (7 sources)Start: 81-09-9590Xmzn Oil 1,200 mg, Oral, Refill(s) 0 Start Date: 02/04/21 Status: Llkcqiu227 actuat fluticasone propionate 0.23 mg/actuat / salmeterol 0.021 mg/actuat metered dose inhaler (20 sources)Corticosteroid, beta2-Adrenergic AgonistStart: 01-31-2023 End: 32-02-8557Ripsvo HFA 230-21 MCG/ACT inhaler 01/31/2023 ActiveStart: 88-48-2842hlsu 2 puff(s) by inhalation twice dailyAdvair HFA 230 mcg-21 mcg Aerosol 2 puff(s), Inhalation, BID, Refill(s) 6 Start Date: 02/04/21 Status: OrderedStart: 34-69-9896pzhl 1 puff(s) by inhalation twice dailyFluticasone Propion-Salmeterol (Advair Hfa) 230-21 mcg/actuation Hfa Aerosol Inhaler Active 2 PUFF INHALATION Twice daily February 01, 2020 11:00pmStart: 74-28-9770qrpw 1 puff(s) by inhalation twice dailyFluticasone Propion-Salmeterol (Advair Hfa) 230-21 mcg/actuation Hfa Aerosol Inhaler Active 2 PUFF INHALATION Twice daily February 02, 2020 12:00amFLUTICASONE/SALMETEROL (ADVAIR HFA INHL) Indications: ASTHMA Inhale 2 (two) times a day DOES 2 PUFFS ReasonsASTHMA. Activefolic acid 1 mg oral tablet (20 sources)Start: 32-41-6248dtxna acid (FOLVITE) 1 mg tablet Indications: Iron deficiency anemia, unspecified iron deficiency anemia type TAKE 1 TABLET DAILY 90 tablet 3 08/07/2024 Activegabapentin 300 mg oral capsule (20 sources)Anti-epileptic AgentStart: 02-02-2020 End: 54-17-7572sbajgckcsh (Neurontin) 300 MG capsule Indications: Lumbar radiculopathy TAKE 1 CAPSULE IN THE MORNING AND 1 CAPSULE AT NOON AND 1 CAPSULE IN THE EVENING AND 1 CAPSULE BEFORE BEDTIME 360 capsule 3 06/07/2024 Active Start: 41-94-9400flyn 1 mg by mouth every six hoursNeurontin 300 mg Cap mg cap(s), Oral, q6hr, Refills(s) 0 Start Date: 12/08/19 Status: OrderedStart: 11-09-2017 End: 19-01-6927kxwj 2 capsules by mouth every six hours for pain and painStart: 94-04-1684twfv 0.5 tablet by mouth three times dailygabapentin (NEURONTIN) 600 MG tablet Take 0.5 tablets by mouth 3 times daily 90 tablet 3 09/28/2016Active take 1 tablet by mouth four times dailygabapentin (NEURONTIN) 600 MG tablet Indications: Neuropathic Pain Take 600 mg by mouth 4 (four) times a day TAKES 1 TABLET ReasonsNeuropathic Pain. Active1 ml galcanezumab-gnlm 120 mg/ml auto-injector (20 sources)Start: 73-15-0751Flynvpbu 120 MG/ML auto-injector Indications: Migraine without aura and without status migrainosus,not intractable INJECT 1 PEN (120 MG) UNDER THE SKIN EVERY 30 DAYS 3 mL 3 04/04/2025 ActiveStart: 02-18-2024 End: 00-99-0169xddmroqkcofm (Emgality) 120 MG/ML auto-injector Indications: Migraine without aura and without status migrainosus, not intractable (CMS/HCC) Inject 1 Syringe (120 mg) under the skin every 30 (thirty)days 3 each 3 02/18/2024 02/17/2025 ActiveStart: 83-98-6081Ydavwfuahbgk-Gnlm (Emgality Syringe) 120 mg/mL Syringe Active 120 MG SUBCUT Q30D February 02, 2020 12:00am Start: 39-24-7029xjquzo 1 mg by subcutaneous injection every monthEmgality Prefilled Pen 120 mg/mL subcutaneous solution SubCutaneous, qMonth, Refills(s) 0 Start Date: 12/08/19 Status: Orderedicosapent ethyl 1000 mg oral capsule (20 sources)Start: 07-28-2024 End: 39-02-6617uvldizdrt ethyL (VASCEPA) 1 gram capsule Indications: Mixed hyperlipidemia TAKE 1 CAPSULE IN THE MORNING AND 1 CAPSULE BEFORE BEDTIME 180 capsule 3 12/26/2024 Activelatanoprost 0.05 mg/ml ophthalmic solution (3 sources)Prostaglandin AnalogStart: 93-10-4264jmkm 1 drop(s) into the eye(s) once daily in the eveningLatanoprost Active 1 DROPS EYE-BOTH Every evening February 02, 2020 12:00amlinaclotide (9 sources)Guanylate Cyclase-C AgonistStart: 28-93-9493yhvv 1 capsule by mouth once dailyLinaclotide (Linzess) 290 mcg Capsule Active 290 MCG PO Daily February 01, 2020 11:00pmStart: 41-09-7706bmnz 1 capsule by mouth once dailyLinaclotide (Linzess) 290 mcg Capsule Active 290 MCG PO Daily February 02, 2020 12:00am End: 93-08-1103bektIBDlwno (LINZESS PO) Take by mouth 09/22/2024 Discontinued linaCLOtide (LINZESS PO) Take by mouth Activelithium carbonate 300 mg oral tablet (2 sources) End: 98-40-4857ozjb 1 tablet by mouth three times dailylithium 300 MG tablet Take 300 mg by mouth 3 times daily 0 Activeloratadine 10 mg oral tablet (20 sources)loratadine (Claritin) 10 MG tablet 1 (one) time each day at the same time. Emhjkl60 hr loratadine 10 mg / pseudoephedrine sulfate 240 mg extended release oral tablet (5 sources)alpha-Adrenergic AgonistStart: 97-49-6813aulg 1 tablet by mouth once daily at bedtime, then take 1 tablet by mouth every twenty-four hoursLoratadine- Pseudoephedrine (Claritin-D 24 Hour) 10-240 mg Tablet Extended Release 24 Hr Active 1 TAB PO Daily at bedtime February 02, 2020 12:00amtake 1 tablet by mouth onceloratadine-pseudoePHEDrine (loratadine-pseudoephedrine) 5-120 mg Tb12 Indications: Allergic Rhinitis Take by mouth nightly TAKES 1 TABLET ReasonsAllergic Rhinitis. Activelosartan potassium 50 mg oral tablet (11 sources)Angiotensin 2 Receptor BlockerStart: 92-80-5186kjxk 1 tablet by mouth once dailyLosartan (Cozaar) 50 mg Tablet Active 50 MG PO Daily February 02, 2020 12:00am End: 51-15-8522ixukrwdc (Cozaar) 100 MG tablet 1 (one) time each day at the same time. 06/26/2024 Discontinuedlurasidone hydrochloride 40 mg oral tablet (1 source)Atypical AntipsychoticStart: 37-84-6583wnax 1 mg by mouth once daily Latuda 40 mg oral tablet mg tab(s), Oral, Daily, Refills(s) 0 Start Date: 12/08/19 Status: Orderedmetoclopramide 10 mg oral tablet (20 sources)Dopamine-2 Receptor AntagonistStart: 08-02-2024 End: 86-68-7424nezxbaycfwdkol (REGLAN) 10 mg tablet Indications: Gastroesophageal reflux disease, unspecified whether esophagitis present TAKE 1 TABLET IN THE MORNING AND 1 TABLET BEFORE BEDTIME 180 tablet 05/08/2025 Active Start: 54-59-0463kvlo 1 tablet by mouth three times dailyReglan 10 mg Tab 10 mg = 1 tab(s), Oral, TID, Refills(s) 0 Start Date: 02/04/21 Status: OrderedStart: 11-10-2017 End: 34-27-3100kxvaqsxbzkiepx (REGLAN) injection 10 mgStart: 11-10-2017 End: 55-73-9264xkptbwodrucjdm (REGLAN) 5 mg/mL injection - ADS Override Pull Start: 11-10-2017 End: 11-75-9112pjthwjztcxihft (REGLAN) injection 10 mgmetoclopramide (Reglan) 10 MG tablet every 8 (eight) hours. Activemometasone furoate 0.05 mg/actuat metered dose nasal spray (1 source)Corticosteroidmometasone (NASONEX) 50 MCG/ACT nasal spray 2 sprays by Nasal route daily 0 Activemontelukast 10 mg oral tablet (20 sources)Leukotriene Receptor AntagonistStart: 08-01-2024 End: 39-28-6897myoxyesdjwa (SINGULAIR) 10 mg tablet Indications: Mild persistent asthma without complication TAKE 1 TABLET DAILY 90 tablet 3 02/08/2025 Active Start: 67-68-9680wonx 1 tablet by mouth once daily in the eveningMontelukast (Singulair) 10 mg Tablet Active 10 MG PO Every evening February 02, 2020 12:00am Start: 11-09-2017 End: 29-07-5158btcjxfurpt hydrochloride 50 mg oral tablet (20 sources)Opioid Antagonistnaltrexone (Depade) 50 MG tablet Take by mouth Activetake 1.5 mg by mouth in the morningnaltrexone (REVIA) 50 mg tablet Take 1.5 mg by mouth in the morning. Activenitrofurantoin, macrocrystals 25 mg / nitrofurantoin, monohydrate 75 mg oral capsule (3 sources)Nitrofuran AntibacterialStart: 09-24-2023 End: 44-09-3653jjwv 1 capsule by mouth twice dailyMacrobid 100 mg Cap 100 mg = 1 cap(s), Oral, BID, X 7 day(s), # 14 cap(s), Refills(s) 0, Pharmacy: [facility] #[id number], 165, cm, 08/25/23 12:52:00 EST, Height/Length Dosing, 97, kg, 08/25/23 12:52:00 EST, Weight Dosing Start Date: 09/24/23 Stop Date: 10/01/23 Status: Orderednystatin 100 unt/mg topical powder (20 sources)Polyene AntifungalStart: 62-00-5010nmexbyio (NYSTOP) powder Indications: An rash of groin APPLY 1 APPLICATION TOPICALLY TWICE A DAY NEEDED (RASH OR ITCHING) 60 g 2 03/07/2024 ActiveStart: 56-46-9013Vtzkduka (Nyamyc) 100,000 unit/gram Powder Active 1 APPLIC TOPICAL Twice daily February 02, 2020 12:00amStart: 11-10-2017 End: 78-68-2827hbdieufg (MYCOSTATIN) powderondansetron 4 mg oral tablet (15 sources)Serotonin-3 Receptor AntagonistStart: 23-75-0252lfzb 2 tablets by mouth twice dailyOndansetron Hcl (Zofran) 4 mg Tablet Active 2 TAB PO Twice daily February 02, 2020 12:00amStart: 11-11-2017 End: 37-34-6242tupidzzpupl (ZOFRAN-ODT) disintegrating tablet 4 mgStart: 11-09-2017 End: 71-48-1977kmyo 4 mg intravenous route every six hours as needed End: 19-02-4329pticlithtel (Zofran) 4 MG tablet 1 (one) time each day at the same time. 06/26/2024 Discontinuedpantoprazole 40 mg delayed release oral tablet (20 sources)Proton Pump InhibitorStart: 02-02-2020 End: 79-48-4371ahyyhkpraqwr (ProtoNix) 40 MG EC tablet 01/07/2023 ActiveStart: 11-26-5767xsza 1 tablet by mouth twice dailyPantoprazole [address] Tab 40 mg = 1 tab(s), Oral, BID, Refills(s) 0 Start Date: 12/08/19 Status: OrderedStart: 11-09-2017 End: 81-11-656273 hr propranolol hydrochloride 60 mg extended release oral capsule (20 sources)beta-Adrenergic BlockerStart: 02-18-2024 End: 82-32-0858bopgzlafdpo LA (Inderal LA) 60 MG 24 hr capsule Indications: Migraine without aura and without status migrainosus, not intractable TAKE 1 CAPSULE DAILY. DO NOT CRUSH, CHEW OR SPLIT 90 capsule 3 05/02/2025 Activetake 1 tablet by mouth in the morningpropranoloL (INDERAL) 60 mg tablet Take 1 tablet (60 mg total) by mouth in the morning. ActiveQUEtiapine 50 mg oral tablet (20 sources)Atypical AntipsychoticStart: 32-06-4991pyyr 1 tablet by mouth once dailyQUEtiapine (SEROquel) 50 mg tablet Take 1 tablet (50 mg total) by mouth nightly. 11/15/2024 ActiveStart: 23-56-0990ekeo 1 tablet by mouth once daily QUEtiapine (SEROquel) 400 mg tablet Take 1 tablet (400 mg total) by mouth nightly. 08/19/2022 ActiveStart: 66-65-9310Yqzfwnuxmf (Seroquel Xr) 300 mg Tablet Extended Release 24 Hr Active 600 MG PO Daily at bedtime 2019 12:00amStart: 31-57-7481itec 50 mg by mouth once daily in the eveningSeroquel 50 mg, Oral, qPM, Refills(s) 0 Start Date: 12/08/19 Status: OrderedStart: 11-09-2017 End: 21-85-0802SHAngqkguq (SEROQUEL) 25 MG tablet Take 200 mg by mouth nightly 0 Activetake 300 mg by mouth onceQUEtiapine (SEROQUEL) 200 MG tablet Indications: BIPOLAR Take 300 mg by mouth nightly TAKES 1 TABLET . Activesennosides, snf 17.2 mg oral tablet (20 sources)Start: 89-69-6476wybr 2 tablets by mouth once daily at bedtime Sennosides (Senna) 8.6 mg Tablet Active 17.2 MG PO Daily at bedtime February 02, 2020 12:00amStart: 91-68-3390kjdcrsdqzf 17.2 MG tablet 17.2 mg 11/15/2023 Active levothyroxine sodium 0.05 mg oral tablet (20 sources)l-ThyroxineStart: 41-18-8098gqrh 1 tablet by mouth once daily in the morninglevothyroxine (SYNTHROID, LEVOTHROID) 50 MCG tablet Indications: Hypothyroidism, unspecified type Take 1 tablet (50 mcg total) by mouth every morning. 90 tablet 1 01/31/2025 ActiveStart: 81-02-1205wkpoaosuzzdzu (SYNTHROID, LEVOTHROID) 50 MCG tablet Indications: Hypothyroidism, unspecified type TAKE 1 TABLET DAILY 90 tablet 1 08/07/2024 ActiveStart: 21-57-2037pbug 1.5 tablets by mouth once dailylevothyroxine 50 mcg (0.05 mg) Tab 1.5 tab, Oral, Daily, # 30 tab(s), Refills(s) 0 Start Date: 02/04/21 Status: OrderedStart: 11-10-2017 End: 45-33-1094Dfklw: 86-92-7951leqf 1 tablet by mouth once daily at bedtime Levothyroxine (Synthroid) 25 mcg Tablet Active 25 MCG PO Daily at bedtime February 02, 2020 12:00amtiZANidine 4 mg oral tablet (3 sources)Central alpha-2 Adrenergic AgonistStart: 80-02-0388onit 4 mg by mouth once daily at bedtimeTizanidine Active 4 MG PO Daily at bedtime February 06, 2020 12:00amubrogepant 100 mg oral tablet (20 sources)Start: 01-15-2025 End: 97-39-3358curg 1 tablet by mouth every two hours, then take 2 tablets by mouth every twenty-four hoursUbrogepant (Ubrelvy) 100 MG tablet Indications: Migraine without aura and without status migrainosus, not intractable Take 1 tablet by mouth if needed (May repeat in 2 hours. Max of 2 tablets in 24 hours. Max 3 days a week) 10 tablet 11 03/23/2025 03/23/2026 ActiveStart: 11-26-2023 End: 28-17-0852Eoitvedisc (Ubrelvy) 100 MG tablet Indications: Migraine without aura and without status migrainosus, not intractable (CMS/HCC) Ubrelvy 100 mg tablet 30 tablet 11 11/26/2023 06/26/2024 Discontinuedvalsartan 80 mg oral tablet (20 sources)Angiotensin 2 Receptor BlockerStart: 08-02-2024 End: 87-93-8366lkzcrcsfi (DIOVAN) 80 mg tablet Indications: Essential hypertension TAKE 1 TABLET DAILY AT NOON 90 tablet 1 04/13/2025 ActiveStart: 15-09-5888qoht 1 tablet by mouth once dailyvalsartan 160 mg Tab 160 mg = 1 tab(s), Oral, Daily, Refills(s) 0 Start Date: 02/04/21 Status: Uwnhtin48 hr venlafaxine 150 mg extended release oral capsule (7 sources)Serotonin and Norepinephrine Reuptake InhibitorStart: 01-42-0931hdyw 1 capsule by mouth once dailyVenlafaxine (Effexor Xr) 150 mg Capsule,Extended Release 24hr Active 150 MG PO Daily February 02, 202012:00amStart: 11-10-2017 End: 37-99-9532clui 3 capsules by mouth once dailyvenlafaxine (EFFEXOR XR) 150 MG extended release capsule Take 450 mg by mouth daily 0 Activetake 1 capsule by mouth once daily in the morningvenlafaxine (EFFEXOR-XR) 150 MG 24 hr capsule Indications: DEPRESSION Take 150 mg by mouth every morning TAKES 3 TABLETS ReasonsDEPRESSION. Activeverapamil hydrochloride 80 mg oral tablet (20 sources)Calcium Channel BlockerStart: 01-15-2025 End: 27-14-0564zvmgdjwkv (Calan) 80 MG tablet Indications: Migraine without aura and without status migrainosus, not intractable TAKE 1 TABLET DAILY 90 tablet 3 05/08/2025 Activevitamin b12 1 mg oral tablet (20 sources)Vitamin X36Zxycd: 05-10-2024 End: 31-63-6356ygld 1 tablet by mouth once daily in the morningcyanocobalamin 1000 MCG tablet Indications: Cobalamin deficiency take 1 tablet by mouth every morning 90 tablet 1 05/10/2024 ActiveVitamin B12 1000 mcg Tab (7 sources)Start: 96-46-8928orlp 1 tablet by mouth once dailyVitamin B12 1000 mcg Tab 1,000 mcg = 1 tab(s), Oral, Daily, # 30 tab(s), Refills(s) 0 Start Date: 02/04/21 Status: OrderedVitamin D3 (7 sources)Start: 71-82-0958Vcxpoyb D3 5,000 International_Unit, Oral, Daily, Refills(s) 0 Start Date: 12/08/19 Status: Orderedwarfarin sodium 5 mg oral tablet (20 sources)Vitamin K AntagonistStart: 12-08-2019 End: 07-83-0528ipxrccfr (COUMADIN) 5 mg tablet Indications: Lupus anticoagulant disorder Take 1/2 to 1 tablet OnceDaily as directed by [facility] Medication Management 90 tablet 3 03/23/2025 ActiveStart: 11-11-2017 End: 68-73-8055swkksyvd (COUMADIN) tablet 7.5 mgStart: 11-10-2017 End: 00-19-4838zgodoexb (COUMADIN) tablet 5 mgStart: 11-09-2017 End: 93-89-5298gfdxvuof (COUMADIN) tablet 2.5 mgwarfarin (Coumadin) 5 MG tablet 1 (one) time each day at the same time. Activewarfarin (COUMADIN) 7.5 MG tablet Take 7.5 mg by mouth daily 7. Mg t,w,f,s,s, and 10 mg and 0 Active zolpidem tartrate 10 mg oral tablet (20 sources)gamma-Aminobutyric Acid-ergic AgonistStart: 70-61-5335dxpz 1 tablet by mouth at bedtimezolpidem (Ambien) 10 MG tablet Indications: Insomnia due to medical condition 1 tablet Orally at bedtime for 30 days 90 tablet 07/26/2023 Active End: 34-54-3557cavw 1 tablet by mouth oncezolpidem (AMBIEN) 10 mg tablet Indications: Sleep-Onset Insomnia Take 10 mg by mouth nightly TAKES 1.5 TABLETS ReasonsSleep-Onset Insomnia. 11/11/2017 Discontinued Completed/Discontinued Medications MedicationDrug Class(es)DatesSig (Normalized)Sig (Original)acetaminophen 325 mg oral tablet (1 source)Start: 11-09-2017 End: 69-83-7541ooxyuouqptrkq (TYLENOL) tablet 975 mgStart: 11-09-2017 End: 07-63-6579bfdvsvivmwwtg (TYLENOL) tablet 975 mgacetaminophen 300 mg / butalbital 50 mg oral capsule (7 sources)BarbiturateStart: 05-26-2024 End: 95-61-0594yleq 1 capsule by mouth onceButalbital-Acetaminophen 50-300 MG capsule Indications: Migraine without aura and without status migrainosus, not intractable (CMS/HCC) Take 1 capsule by mouth every 12 (twelve) hours if needed (migraine) 60 capsule 2 05/26/2024 06/15/2024 DiscontinuedStart: 11-15-2023 End: 56-83-1526Numhqpdxgy-Acetaminophen 50-300 MG capsule See Instructions, Instructions: 1 cap(s) Oral, PRN: as needed for headache, 0 Refill(s) 11/15/2023 05/26/2024 Discontinued (Reorder)acetaminophen 325 mg / butalbital 50 mg / caffeine 40 mg oral tablet (11 sources)Barbiturate, Central Nervous System Stimulant, MethylxanthineStart: 10-17-2024 End: 46-51-5476eekm 1 tablet by mouth every six hours as needed for headache hxavlgpoob-baskbgtvfbqpw-sitg (FIORICET, ESGIC) 50-325-40 mg per tablet Take 1 tablet by mouth every 6 (six) hours as needed for headaches or migraine. 10/17/2024 01/29/2025 Discontinued (Duplicate Listing)Start: 06-15-2024 End: 04-64-6769vomz 1 tablet by mouth every six hours for headache ywfxaynqjp-fugajcpszldmi-sflbgitu (Esgic) 50-325-40 MG tablet Indications: Migraine without aura and without status migrainosus, not intractable (CMS/HCC) Take 1 tablet by mouth every 6 (six) hours if needed for headaches or migraine 20 tablet 2 06/15/2024 07/15/2024 Activealuminum hydroxide 40 mg/ml / magnesium hydroxide 40 mg/ml / simethicone 4 mg/ml oral suspension (1 source)Start: 11-09-2017 End: 49-50-8635rwqr 30 mL by mouth every four hours as neededbisacodyl 10 mg rectal suppository (1 source)Stimulant LaxativeStart: 11-09-2017 End: 01-96-8397Ikxrlvmxvi-Formoterol Hfa 80 McG-4.5 McG/Actuation Aerosol Inhaler (1 source)Corticosteroid, beta2-Adrenergic AgonistStart: 11-09-2017 End: 44-92-0281vtvckdi chloride 0.0014 meq/ml / potassium chloride 0.004 meq/ml / sodium chloride 0.103 meq/ml / sodium lactate 0.028 meq/ml injectable solution (1 source)Start: 11-09-2017 End: 48-09-1681hjgarfon Ringers infusionceFAZolin 2000 mg injection (1 source)Cephalosporin AntibacterialStart: 11-09-2017 End: 52-78-7777cwqi 2000 mg intravenous route every eight hoursdiazePAM 5 mg oral tablet (3 sources)BenzodiazepineStart: 11-09-2017 End: 86-98-5153uzkw 2.5 mg by mouth twice dailydiazePAM (VALIUM) 5 MG tablet Indications: DEPRESSION Take 2.5 mg by mouth 2 (two) times a day TAKES 1 TABLET . ActiveDiphenhydramine 50 Mg/Ml Injection Solution (3 sources)Histamine-1 Receptor AntagonistStart: 11-10-2017 End: 29-65-2287dnjehpgefkEEDBK (BENADRYL) injection 25 mgStart: 11-10-2017 End: 28-81-2676zhruuefrohUMEIM (BENADRYL) 50 mg/mL injection - ADS Override Pull Start: 11-10-2017 End: 55-29-0865zxkefkpnhpRJCYN (BENADRYL) injection 25 mgdocusate sodium 50 mg / sennosides, snf 8.6 mg oral tablet (5 sources)Start: 11-09-2017 End: 17-89-4364lovkb-docusate (SENNA-S) 8.6-50 mg Take 1 (one) tablet to 2 (two) tablets by mouth 2 (two) times a day for 7 days. 20 tablet 0 11/11/2017 11/11/2017 Discontinuedfluticasone propionate 0.05 mg/actuat metered dose nasal spray (3 sources)CorticosteroidStart: 11-09-2017 End: 99-69-5473hemq 2 spray(s) nasal route twice daily, then take 2 spray(s) nasal routefluticasone (FLONASE) 50 mcg/actuation nasal spray Indications: Allergic Rhinitis Instill 2 sprays into each nostril 2 (two) times a day DOES 2 SPRAYS IN EACH NOSTRIL . Active0.5 ml HYDROmorphone hydrochloride 1 mg/ml prefilled syringe (1 source)Opioid AgonistStart: 11-09-2017 End: 35-89-8938dxha 0.5-1 mg intravenous route every three hours as needed Kanaflex (3 sources)Start: 02-02-2020 End: 42-88-6367fwmh 4 mg by mouth once daily at bedtimeKanaflex Discontinued 4 MG PO Daily at bedtime February 01, 2020 11:00pm February 06, 2020 2:22pmStart: 02-02-2020 End: 83-83-9938cofn 4 mg by mouth once daily at bedtimeKanaflex Discontinued 4 MG PO Daily at bedtime February 02, 2020 12:00am February 06, 2020 3:22pm1 ml ketorolac tromethamine 30 mg/ml injection (3 sources)Nonsteroidal Anti-inflammatory Drug, Cyclooxygenase InhibitorStart: 11-10-2017 End: 68-34-5195zlxwobfnz (TORADOL) injection 30 mgStart: 11-10-2017 End: 09-01-4553atxtvqnhf (TORADOL) 30 mg/mL (1 mL) injection - ADS Override Pull Start: 11-10-2017 End: 92-72-4794dhkjgsvat (TORADOL) injection 30 mglamoTRIgine 100 mg oral tablet (3 sources)Mood Stabilizer, Anti-epileptic AgentStart: 11-10-2017 End: 36-68-0644ciyq 2 tablets by mouth once daily in the morning, then take 1 tablet by mouth, then take 2 tabletsby mouthlamoTRIgine (LAMICTAL) 25 MG tablet Indications: BIPOLAR Take 50 mg by mouth every morning TAKES 2 TABLETS OF 25 MG TO EQUAL TOTAL OF 50 MG . Activetake 1 tablet by mouth once daily in the morning, then take 1 tablet by mouth, then take 2 tablets by mouthlamoTRIgine (LAMICTAL) 25 MG tablet Indications: BIPOLAR Take 25 mg by mouth every morning TAKES 2 TABLETS OF 25 MG TO EQUAL TOTAL OF 50 MG . Activemagnesium hydroxide 80 mg/ml oral suspension (1 source)Start: 11-09-2017 End: 55-11-1436awyyeqkho 7.5 mg oral tablet (8 sources)Nonsteroidal Anti-inflammatory Drug End: 70-24-9697yjupzbyho (Mobic) 7.5 MG tablet 1 (one) time each day at the same time. 06/26/2024 DiscontinuedMemantine Er 7 Mg-14 Mg-21 Mg-28 Mg Capsule,Sprinkle,Ext.Rel.24hr Pack (1 source)Z-xvhjgt-A-aspartate Receptor Antagonist End: 39-45-6346oven 1 tablet by mouth oncememantine (NAMENDA XR) 7-14-21-28 mg C24k Indications: MIGRAINES Take by mouth nightly TAKES 1 TABLET ReasonsMIGRAINES. 10/18/2017 Discontinuedmetoprolol tartrate 50 mg oral tablet (2 sources)beta-Adrenergic BlockerStart: 11-09-2017 End: 95-13-6629rkhbeedo sulfate 15 mg extended release oral tablet (1 source)Opioid Agonist End: 92-72-3822lwfh 1 tablet by mouth every twelve hoursmorphine (MS CONTIN) 15 MG 12 hr tablet Take 15 mg by mouth every 12 (twelve) hours TAKES 1 TABLET . 10/18/2017 Discontinuednaloxone (NARCAN) injection 0.1 mg (1 source)Start: 11-09-2017 End: 64-82-6650zydtnawp (NARCAN) injection 0.1 mgpolyethylene glycol 3350 142 mg/ml oral solution (3 sources)Osmotic LaxativeStart: 11-09-2017 End: 16-74-8971cxrkgofyjwqn glycol (MIRALAX) 17 gram powder Indications: constipation Take 17 g by mouth daily as needed MIXES WITH LIQUIDS. Active prochlorperazine 10 mg oral tablet (8 sources)Phenothiazine End: 16-01-7444ccxdebrirvmduafi (Compazine) 10 MG tablet every 8 (eight) hours. 06/26/2024 Discontinuedpromethazine hydrochloride 25 mg oral tablet (8 sources)Phenothiazine End: 05-78-7548kaeh 1 tablet by mouth every six hours as needed for nausea promethazine (Phenergan) 25 MG tablet 1 tablet Oral every 6 hours as needed for nausea 06/26/2024 Ariipqoswamt90 hr scopolamine 0.0139 mg/hr transdermal system (1 source)AnticholinergicStart: 11-09-2017 End: 34-49-1317tpxkklmilqw (TRANSDERM-SCOP) 1 mg over 3 days patch 1 patchsodium chloride (2 sources)Start: 11-09-2017 End: 47-00-2218gliotw chloride (PF) (NS) flush 5 mLStart: 11-09-2017 End: 44-61-7196wqjvdktgofjm 10 mg oral tablet (3 sources)Start: 11-10-2017 End: 83-09-5662vabn 1 tablet by mouth once daily in the morningvortioxetine (TRINTELLIX) 10 mg tablet Indications: major depressive disorder Take 10 mg by mouth every morning TAKES 1 TABLET . ActiveXdemvy 0.25 % solution (7 sources)Start: 05-17-2024 End: 32-62-1634alyf 1 drop(s) into the eye(s) twice dailyXdemvy 0.25 % solution INSTILL 1 DROP IN BOTH EYES TWICE DAILY FOR 6 WEEKS 05/17/2024 06/26/2024 Dis continuedStart: 43-97-8034gqyq 1 drop(s) into the eye(s) twice dailyXdemvy 0.25 % solution INSTILL 1 DROP IN BOTH EYES TWICE DAILY FOR 6 WEEKS 05/17/2024 Active Problems Active Problems Problem ClassificationProblemDateDocumented DateEpisodic/ChronicAbdominal pain (7 sources)Flank vgmg33-37-3205McwrnjvjYphnplvh foot deformities (20 sources)Acquired left hallux valgus; Translations: [Hallux valgus (acquired), left foot]Onset: [id number] cerebrovascular disease (20 sources)Cerebrovascular accident; Translations: [Cerebral infarction, unspecified]Onset: 09-13-1994 Resolved: [id number] disorders (20 sources)Anxiety disorder, unspecified; Translations: [Generalized anxiety disorder]Onset: 314476-10-2348XckmrtfKvlnig (20 sources)Asthma; Translations: [Mild intermittent asthma, uncomplicated] Onset: 445087-18-8358DfhibdiVyqfovvax and vision defects (20 sources)Blindness AND/OR vision impairment level; Translations: [Blindness, one eye, unspecified eye]Onset: 108096-11-5747ZfgfgkqJkbmrrax (20 sources)Cataract; Translations: [Unspecified cataract]Onset: 07-26-2023 09-40-3900TuniczpOpefuku kidney disease (20 sources)Chronic kidney disease stage 3; Translations: [Chronic kidney disease, stage 3 unspecified (HCC)]Onset: 06-12-2021 Resolved: [id number]tztbrjx and hemorrhagic disorders (20 sources)Antiphospholipid syndrome; Translations: [Antiphospholipid syndrome] Onset: 500460-89-6483RgcuzilZbfzqiek atherosclerosis and other heart disease (20 sources)Coronary arteriosclerosis; Translations: [Atherosclerotic heart disease of [place] coronary artery without angina pectoris]Onset: 09-27-2016 02-12-3171FgmrnjmAffovinq mellitus without complication (4 sources)Type 2 diabetes mellitus; Translations: [Type 2 diabetes mellitus without complications]Onset: 730674-78-5371EokrgmuGsvqabbg mellitus without complication (2 sources)Impaired fasting glycemia; Translations: [Impaired fasting glucose] Onset: 967690-56-9208GbvqwzmrIkgptzvcn of lipid metabolism (20 sources)Hyperlipidemia; Translations: [Hyperlipidemia, unspecified]Onset: 485998-21-4384XhkbpxmYgxdbkzlh of lipid metabolism (2 sources)Pure hypercholesterolemia, unspecified; Translations: [Pure hypercholesterolemia, unspecified]Onset: 00-00-7006Anvuxvuxqi disorders (20 sources)Gastroesophageal reflux disease; Translations: [Gastro-esophageal reflux disease without esophagitis]Onset: 392154-74-4610XotwkzgPogsypkpd hypertension (20 sources)Hypertensive disorder; Translations: [Essential (primary) hypertension]Onset: 656793-83-9430GdzmqnmOxfkirjgo and duodenitis (20 sources)Chronic antral gastritis; Translations: [Unspecified chronic gastritis without bleeding]Onset: 574366-08-2343RjrixslSdlpzoktpjrwl symptoms and ill-defined conditions (13 sources)Post-micturition incontinence ; Translations: [Urinary incontinence] 28-32-1231HjjalqtPizmklnhrikxi symptoms and ill-defined conditions (20 sources)Preet hematuria; Translations: [History of urinary tract infection] 66-39-4813NlnerglsHqeammyr (20 sources)Glaucoma; Translations: [Unspecified glaucoma]Onset: 11-02-2019 11-16-0975InlbxxnMobekiqp; including migraine (20 sources)Migraine without aura, not intractable, without status migrainosus; Translations: [Migraine]Onset: 841699-79-0750YgvxjazNqclupfyngrc; infection of eye (except that caused by tuberculosis or sexually transmitteddisease) (20 sources)Optic neuritis; Translations: [Disorder of optic nerve]Onset: 870224-08-2662OvadudyRzjw disorders (20 sources)Bipolar disorder; Translations: [Bipolar disorder, unspecified] Onset: 732979-86-1329RfshvdwSxgztktzkup deficiencies (20 sources)Vitamin D deficiency; Translations: [Vitamin D deficiency, unspecified]Onset: 615078-75-0053EapuelpXyzmyzmwneikrg (20 sources)Unilateral primary osteoarthritis, left hip; Translations: [Osteoarthritis of hip]Onset: 638167-91-8172GvrqqljJdwjc aftercare (2 sources)Aftercare following joint replacement surgery; Translations: [Aftercare following joint replacementsurgery]Onset: 44-67-5314OzhqfdaGgvjx aftercare (20 sources)Long-term current use of anticoagulant; Translations: [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]Onset: 480406-24-3325JmwncmasQujyo and unspecified benign neoplasm (1 source)Benign neoplasm of transverse colon; Translations: [Benign neoplasm of transverse colon]Onset: 24-35-2694MdeqycgcWvrxt and unspecified benign neoplasm (1 source)Benign neoplasm of sigmoid colon; Translations: [Benign neoplasm of sigmoid colon]Onset: 14-02-3747KxqdajjkTkjoq and unspecified benign neoplasm (2 sources)History of polyp of colon; Translations: [Personal history of adenomatous and serrated colon polyps]Onset: 307772-28-5503NgjfmoqySfour and unspecified benign neoplasm (4 sources)Adenomatous polyp of colon ; Translations: [Benign neoplasm of transverse colon]Onset: 365305-91-8900NvvqjbzvJvwbs circulatory disease (20 sources)Device in situ; Translations: [Presence of other vascular implants and grafts]Onset: 125829-74-0617ZqsnzzyGmvfa circulatory disease (2 sources)Personal history of transient ischemic attack (TIA), and cerebral infarction without residual deficits; Translations: [Personal history of transient ischemic attack (TIA), and cerebral infarction without residual deficits]Onset: 24-67-4148OmossdzqMcjcv connective tissue disease (2 sources)Presence of left artificial hip joint; Translations: [Presence of left artificial hip joint]Onset: 78-32-7423UzyntwpTzezm connective tissue disease (20 sources)Hip joint prosthesis present; Translations: [Presence of left artificial hip joint]Onset: 568651-38-8738MpqtdyvMkidr connective tissue disease (2 sources)Fibromyalgia; Translations: [Fibromyalgia]Onset: 00-87-3002Ihihmgtm Other connective tissue disease (7 sources)Ybhgoifcsmbx63-42-7965CyipyhkrJevos ear and sense organ disorders (20 sources)Sensorineural hearing loss, bilateral; Translations: [Sensorineural hearing loss, bilateral]Onset: 145872-35-9473LqokichBtjpz eye disorders (20 sources)Ischemic optic neuropathy; Translations: [Ischemic optic neuropathy, unspecified eye]Onset: 848219-01-7454QbyywvmMzjha eye disorders (20 sources)Optic atrophy of right eye; 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, right eye]Onset: 317369-16-2163MzmvinpZpsny injuries and conditions due to external causes (1 source)Unspecified injury of left lower leg, initial encounter; Translations: [Unspecified injury of left lower leg, initial encounter]Onset: 03-04-2025 EpisodicOther nervous system disorders (20 sources)Metabolic encephalopathy; Translations: [Metabolic encephalopathy] Onset: 872523-76-7956WofkrddRkllp nervous system disorders (20 sources)Chronic pain; Translations: [Other chronic pain]Onset: 09-27-2016 83-35-7927WsiatsjEowmw nervous system disorders (20 sources)Inattention; Translations: [Attention and concentration deficit] Onset: 288797-82-3744UwqnexyQswrn nervous system disorders (20 sources)Difficulty walking; Translations: [Difficulty in walking, not elsewhere classified]Onset: 779180-08-6665WmvfzbkBgxqi nutritional; endocrine; and metabolic disorders (2 sources)Other obesity; Translations: [Other obesity]Onset: 08-24-5277Vhbzppy Other nutritional; endocrine; and metabolic disorders (20 sources)Obese class I; Translations: [Obesity (BMI 30.0-34.9)]Onset: 472029-38-3405VyvjbjjTivkf nutritional; endocrine; and metabolic disorders (20 sources)Morbid obesity; Translations: [Morbid (severe) obesity due to excess calories]Onset: 712870-28-2343QyphaqcJrzpz nutritional; endocrine; and metabolic disorders (1 source)Morbid (severe) obesity due to excess calories; Translations: [Morbid (severe) obesity due to excess calories]Onset: 36-22-0945NdyshhgZlxaq screening for suspected conditions (not mental disorders or infectious disease) (13 sources)Encounter for screening for malignant neoplasm of cervix; Translations: [Encounter for screening mammogram for malignant neoplasm of breast]Onset: 10-00-7241LaeqgupcEskae upper respiratory disease (20 sources)Chronic rhinitis; Translations: [Chronic rhinitis]Onset: 11-21-2018 12-56-7543ZmdscbrJgobp upper respiratory disease (3 sources)Bleeding from nose; Translations: [Epistaxis]20-30-5031Glbsxgzo Phlebitis; thrombophlebitis and thromboembolism (20 sources)Chronic deep venous thrombosis of thigh; Translations: [Chronic embolism and thrombosis of unspecified deep veins of unspecified proximal lower extremity]Onset: 764809-06-0613TotzorxBuwbiqkp codes; unclassified (2 sources)Other insomnia; Translations: [Other insomnia]Onset: 08-16-2018 ChronicResidual codes; unclassified (2 sources)Other specified health status; Translations: [Other specified health status]Onset: 00-21-0063MqbboqouDhqclngs codes; unclassified (1 source)Family history of malignant neoplasm of other organs or systems; Translations: [FAM HX MALIG NEOPLASM OTH ORGN/SYS]Onset: 57-25-2219Vqukfdqn Residual codes; unclassified (2 sources)Postmenopausal state; Translations: [Asymptomatic menopausal state] 98-61-1137HltdsabkQumneiqsecd; intervertebral disc disorders; other back problems (20 sources)Degeneration of lumbar intervertebral disc; Translations: [Degeneration of lumbar intervertebral disc]Onset: hronic Systemic lupus erythematosus and connective tissue disorders (20 sources)Systemic lupus erythematosus; Translations: [Systemic lupus erythematosus, unspecified]Onset: 535308-84-2921KmfirnmMbuuqvy disorders (20 sources)Hypothyroidism; Translations: [Hypothyroidism, unspecified]Onset: 09-27-2016 Resolved: 257461-97-3807SuiekjyXjzggemfz cerebral ischemia (20 sources)Transient cerebral ischemia; Translations: [Transient cerebral ischemic attack, unspecified]Onset: 648301-11-9295LtbqsqxAgcxigorscna (7 sources)Finding of sensation of ydvhgck06-66-9193Mliflnojtwha (1 source)Thyroid ProblemOnset: 76-73-3045Byuyhvsamiko (1 source)MAWOnset: 64-74-8290Qenlzrnnwtwl (3 sources)Autogenerated ProblemOnset: 030753-14-3997Vyoqdbrnucqi (1 source)Personal history of adenomatous and serrated colon polyps; Translations: [Personal history of adenomatous and serrated colon polyps]Onset: 67-47-6044Vilwloatjowf (1 source)screeningOnset: 78-33-5051Gmmbmftcwoju (1 source)MNT - IndividualOnset: 34-29-2529Uzzygki tract infections (7 sources)Postinfective urethral stricture of nfbuhh41-13-2049Njncathe Past or Other Problems Problem ClassificationProblemDateDocumented DateEpisodic/Chronic Administrative/social admission (20 sources)Problem related to life management difficulty; Translations: [Other problems related to life management difficulty]Onset: 250443-94-8806 EpisodicCalculus of urinary tract (20 sources)Kidney stone; Translations: [Calculus of kidney]Onset: 05-20-2022 83-38-2662ImiwebovRlqfkhnful and other anemia (20 sources)Anemia; Translations: [Anemia, unspecified]Onset: 12-08-2021 97-34-7333TzkcjypnZrmhxwfrvc and other anemia (20 sources)Iron deficiency anemia; Translations: [Iron deficiency anemia, unspecified]Onset: 852112-53-0796AmuhrsbzWqxhfrvpqx and other anemia (1 source)Iron deficiency anemia, unspecified; Translations: [Iron deficiency anemia, unspecified]Onset: 58-44-3229YxadbaxfR Codes: Fall (5 sources)Fall; Translations: [Unspecified fall, initial encounter]Onset: 270582-25-5010NjdprivaZwpqtfty, including migraine (20 sources)Headache; Translations: [Chronic headache disorder]Onset: 09-27-2016 02-26-5149ZsvybtqsDgujgpgdxakgr and screening for infectious disease (2 sources)Encounter for screening for human papillomavirus (HPV); Translations: [Encounter for immunization]Onset: 83-50-6552ZumrbladVjmqfzj and fatigue (20 sources)Fatigue; Translations: [Other fatigue]Onset: EpisodicMood disorders (20 sources)Other specified depressive episodes; Translations: [Mood disorders] Onset: 07-20-2024 Resolved: 332842-92-9977Mamprxzrzej deficiencies (2 sources)Deficiency of other specified B group vitamins; Translations: [Deficiency of other specified B group vitamins]Onset: 87-09-3282LawcjjjyBdvqh aftercare (20 sources)Polypharmacy ; Translations: [Other termite control representative (current) drug therapy]Onset: 686617-99-9653RpagamntFcfhm aftercare (20 sources)Patient encounter status; Translations: [Encounter for therapeutic drug level monitoring]Onset: 140178-63-6356WwwwriwsBbggs aftercare (1 source)Other 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 control representative (current) drug therapy; Translations: [Other shelter (current) drug therapy]Onset: 97-71-0621LrlhhcmlJdtbu aftercare (1 source)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; Translations: [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]Onset: 23-18-5198EqimbaeaKtjkz circulatory disease (2 sources)Elevated blood-pressure reading, without diagnosis of hypertension; Translations: [Elevated blood-pressure reading, without diagnosis of hypertension]Onset: 45-81-2714TxhzyiwpHxjoy circulatory disease (20 sources)History of cerebrovascular accident; Translations: [Personal history of transient ischemic attack (TIA), and cerebral infarction without residual deficits]Onset: 235087-72-6442DuzkgzihMvajs connective tissue disease (20 sources)Primary fibromyalgia syndrome; Translations: [Fibromyalgia]Onset: 042917-61-8003DjoktuxqBgvxr connective tissue disease (20 sources)Muscle weakness; Translations: [Muscle weakness (generalized)]Onset: 677310-21-5347VyibpppcGoejo diseases of veins and lymphatics (5 sources)Disorder of vein; Translations: [Disorder of vein, unspecified]Onset: 428282-99-6898JdpizflwDscnc ear and sense organ disorders (20 sources)Bilateral tinnitus; Translations: [Tinnitus, bilateral]Onset: 472058-04-0034HfmysbgfYkwnw ear and sense organ disorders (20 sources)Tinnitus; Translations: [Tinnitus, unspecified ear]Onset: 03-29-2023 66-63-0065TemhxskjSdmwf endocrine disorders (20 sources)Syndrome of inappropriate vasopressin secretion; Translations: [Syndrome of inappropriate secretionof antidiuretic hormone]Onset: 05-20-2022 Resolved: 369455-38-1809EnrakvpAzzvb gastrointestinal disorders (20 sources)Constipation; Translations: [Constipation, unspecified]Onset: 690650-72-5499ZsyxmoevLxhex infections; including parasitic (20 sources)Personal history of other infectious and parasitic diseases; Translations: [History of 2019 novel coronavirus disease (COVID-19)]Onset: 835630-41-8774QrxkjzbkHutty injuries and conditions due to external causes (20 sources)Hematoma; Translations: [Other injury of unspecified body region, initial encounter]Onset: 023696-08-0527QusmrnjbPpyey injuries and conditions due to external causes (20 sources)History of fall; Translations: [History of falling]Onset: 10-23-2021 Resolved: 764564-16-7114YhrwqbbcPwexi injuries and conditions due to external causes (5 sources)Sequelae of injuries of lower limb ; Translations: [Unspecified injury of unspecified lower leg, sequela]Onset: 040219-00-6870Mmesxuqe Other nervous system disorders (1 source)Disorder of brain; Translations: [Encephalopathy, unspecified] Resolved: 647647-33-9879UgvnupiXtrnb nervous system disorders (20 sources)Ataxia; Translations: [Ataxia, unspecified]Onset: 03-29-2023 09-42-6612GqoxwcjxWnyvi nervous system disorders (20 sources)Impaired cognition; Translations: [Other symptoms and signs involving cognitive functions and awareness]Onset: 670125-77-1158Uynqbvlq Other nervous system disorders (20 sources)Finding related to ability to move; Translations: [Other abnormalities of gait and mobility]Onset: 011128-01-4975AekpqqvhFsbef nervous system disorders (5 sources)Abnormal gait; Translations: [Unspecified abnormalities of gait and mobility]Onset: 340570-18-8498PlhmkitrVibcvtxkh; thrombophlebitis and thromboembolism (20 sources)Deep venous thrombosis; Translations: [Personal history of other venous thrombosis and embolism]Onset: 381342-01-7231LrskykalDehqasyd codes; unclassified (2 sources)Other specified personal risk factors, not elsewhere classified; Translations: [Other specified personal risk factors, not elsewhere classified] Onset: 18-15-4863MotrtqrnGohtdjcx codes; unclassified (2 sources)Insomnia, unspecified; Translations: [Insomnia, unspecified]Onset: 06-27-7022YgqdnfuxOrqkellq codes; unclassified (20 sources)Altered mental status; Translations: [Altered mental status, unspecified]Onset: 318542-12-7047XlllezuySqtigfov codes; unclassified (20 sources)Delirium; Translations: [Disorientation, unspecified]Onset: 422369-67-6315UwdbokkwDaxhubhl codes; unclassified (20 sources)History of cardiac catheterization; Translations: [Other specified postprocedural states]Onset: 448712-75-8490RvdemtobLzmwkxne codes; unclassified (20 sources)Insomnia; Translations: [Insomnia, unspecified]Onset: 10-23-2021 49-00-9233DhtkavjxIkkkqczcfpc; intervertebral disc disorders; other back problems (20 sources)Lumbar radiculopathy; Translations: [Radiculopathy, lumbar region] Onset: 752942-96-3514NrdbrcuePyfzctwzd-vgaxffz disorders (20 sources)Misuse of prescription only drugs; Translations: [Other psychoactive substance use, unspecified, uncomplicated]Onset: 228284-89-8205Xfrohllb Superficial injury; contusion (20 sources)Contusion of left thigh; Translations: [Contusion of left thigh, initial encounter]Onset: 244060-80-4524PlzpiqalVuopkqfpcwfk (20 sources)Personal history of other medical treatment; Translations: [H/O: blood transfusion]Onset: 059170-69-3144FobkfmmiFvzzi infection (20 sources)Disease caused by 2019-nCoV; Translations: [COVID-19]Onset: 177474-10-2064Oimabnzo Results Test NameValueInterpretationReference RangeFacilityPOCT Protime / INRon 20-26-2535VFT Coag (PPP) [Relative time]2.1 {INR}Abnormal0.8 - 1.2[facility] SystemInterpretation and review of laboratory resultsAbnormalProMedica [facility] Hospital SystemPro[facility] SystemCoding Summaryon 04-80-2335Tksfeg Summary HTMLBase 64 IaaocmwaXWp5vUi+PGhlYWQ+RP6DMFFwI72vaYMsyN6mW2NYCRbJCmgiICSQDHbZDaHsqwOuQI9ovRSu ZXJu [file] LWN (more content not included)...[facility] 19-54-2182Jdwsclq [id number]#1.00OTGTIFFNormal [facility] Summaryon 17-79-8249Mpgwkhazz Patient Summary [id number] [place] [address] Patient Discharge Instructions Name: NOEMI BRAND : 1960 Patient Address: [address] [place] [address] Primary Care Provider: Name: ALEXANDER CHEN After you are discharged if you find you have any questions, please, call [phone] ext [phone] to speak to a nurse. Discharge Diagnosis: Prescription Information: If you have been given a prescription for narcotics, seek immediate medical attention if you have any difficulty breathing or any sudden status changes such as confusion andsleepiness. If you or anyone you know is experiencing suicidal thoughts, mental health, alcohol and/or drug addiction problems; contact the [facility] 05/04 Crisis Hotline -text 4hope to 741741. If you received any narcotics, sedation, or [...] business decisions or sign any legal documents [facility] would like to thank you for allowing us to assist you with your healthcare needs.The following includes patient education materials and information [...] (given by mouth) every day. cyanocobalamin (Vitamin B12 1000 mcg oral tablet) 1 tab(s) Oral (given by [...] (given by mouth) 2 times per day. propranolol (propranolol 60 mg oral capsule, extended release) 1 cap(s) Oral (given by mouth) 2 times per [...] tab(s) Oral (given by mouth) every day. verapamil (verapamil 80 mg oral tablet) warfarin (Coumadin) 5 Milligram every day. zolpidem [...] list that you can keep with you. acetaminophen-butalbital (acetaminophen-butalbital 300 mg-50 mg oral capsule) 1 cap(s) Oral; as needed as needed for headache. aspirin (Aspirin 81 Chewtab) 1 tab(s) Oral (given by mouth) every day. atorvastatin (Lipitor) 80 Milligram Oral (given by mouth) every day. baclofen (baclofen 10 mg (more content not included)...[facility] MAGR Intraoperative Recordon [id number] Intraoperative RecordMAGR Intra-Op Record Summary Primary Physician: LINA SCHWAB MD Finalized Date/Time: 06/08/25 11:08:52 Pt. Name: CATHIE NOEMI CYNDI Reddy/Sex: 1960 FEMALE Med Rec #: [id number] Physician: LINA SCHWAB MD Financial #: [id number] Pt. Type: D Room/Bed: / Admit/Disch: 06/08/25 09:09:03 - Institution: Case Times MAGR Entry 1 Patient In Room Time 06/08/25 10:39:00 Out Room Time 06/08/25 11:10:00 Anesthesia Start Time 06/08/25 10:49:00 Stop Time 06/08/25 11:08:00 Surgery Start Time 06/08/25 10:49:00 Stop Time 06/08/25 11:08:00 Last Modified By: Jenifer Muhammad RN 06/08/25 11:08:08 Case Attendance MAGR Entry 1 Entry 2 Entry 3 Case Attendee Ev Bailey RN, Debra RN George, Beth A RN Role Performed Environmental Analyst Environmental Analyst Other Authorized Personnel Time In 06/08/25 10:39:00 06/08/25 10:39:00 06/08/25 10:39:00 Time Out 06/08/25 11:10:00 06/08/25 11:10:00 06/08/25 11:10:00 Procedure Radiofrequency Radiofrequency Radiofrequency Ablation(Bilateral) Ablation(Bilateral) Ablation(Bilateral) Last Modified By: Jenifer Muhammad RN, Debra RN Myers, Debra RN 06/08/25 11:08:16 06/08/25 11:08:16 06/08/25 11:08:16 Entry 4 Entry 5 Entry 6 Case Attendee Roslyn Sadler (R) Hailey Jorge WINDOWS ADMINISTRATOR LINA SCHWAB MD Role Performed Critical Care Nurse Practitioner Scrub Personnel Surgeon - Primary Time In 06/08/25 10:39:00 06/08/25 10:39:00 06/08/25 10:39:00 Time Out 06/08/25 11:10:00 06/08/25 11:10:00 06/08/25 11:10:00 Procedure Radiofrequency Radiofrequency Radiofrequency Ablation(Bilateral) Ablation(Bilateral) Ablation(Bilateral) Last Modified By: Jenifer Muhammad RN, Debra RN Myers, Debra RN 06/08/25 11:08:16 06/08/25 11:08:16 06/08/25 11:08:16 Surgical Procedures MAGR Pre-Care Text: A.20 Verifies operative procedure, surgical site, and laterality Im.150 Develops individualized plan of care Entry 1 Procedure Radiofrequency Ablation Primary Procedure Yes Primary Surgeon LINA SCHWAB MD Modifiers Bilateral Surgeon Comment Bilateral L4-5, L5-S1 Start 06/08/25 10:49:00 Radiofrequency Ablation Stop 06/08/25 11:08:00 Anesthesia Type Local Surgical Service Pain Management Wound Class Clean Technique Details Closure Technique N/A Entire procedure No was performed via laparoscope or robotic assistance Last Modified By: Jenifer Muhammad RN 06/08/25 11:08:24 Post-Care Text: O.730 The patient's care is consistent with the individualized perioperative plan of care General Case Data MAGR Pre-Care Text: A.350.1 Classifies surgical wound Entry 1 Case Information OR MAGR OR 02 Case Level None Wound Class Clean Specialty Pain Management ASA Class N/A Diagnosis Preop Diagnosis Lumbosacral Spondylosis Postop Same As Preop Yes Postop Diagnosis Lumbosacral Spondylosis Blunt or Yes Is the procedure Yes penetrating injury considered occured prior to Emergent/Urgent? the start of the procedure: Last Modified By: Jenifer Muhammad RN 06/08/25 10:40:10 Post-Care Text: O.760 Patient receives consistent and [...] Labeled Other Concerns n/a Addressed Time Out Roslyn Sadler RT Time Out Time 06/08/25 10:49:00 Participants (R), Ev Bailey RN, Hailey Jorge WINDOWS ADMINISTRATOR, LINA SCHWAB MD, Jenifer Muhammad RN Last Modified By: Jenifer Muhammad RN 06/08/25 10:49:14 Patient Positioning MAGR Pre-Care Text: A.280 Identifies [...] Outcome Met (O.80) Yes Last Modified By: Jenifer Muhammad RN 06/08/25 10:40:20 Post-Ca (more content not included)...[facility] Pre[facility] Recordon [id number] Preoperative RecordMAGR Pre-Op Record Summary Primary Physician: LINA SCHWAB MD Finalized Date/Time: 06/08/25 11:14:58 Pt. Name: NOEMI BRAND /Sex: 1960 FEMALE Med Rec #: [id number] Physician: LINA SCHWAB MD Financial #: [id number] Pt. Type: D Room/Bed: / Admit/Disch: 06/08/25 09:09:03 - Institution: Pre-Op Case Times MAGR Pre-Care Text: Patient will be optimally prepared for surgery. Patient is free from s/s of injury. Provide information to patient/family related to plan of care. Verify patient allergies. Confirm identity and verify consent before the operative or invasive procedure. Entry 1 Patient Arrival Time 06/08/25 09:20:00 Preop Departure 06/08/25 10:34:00 Last Modified By: Carly Mccall RN 06/08/25 11:14:57 Post-Care Text: Patient is prepared mentally and physically and is ready for surgery. The patient remains free froms/s of injury. Patient/family express understanding of plan of care and participate in decisions affectinghis or her perioperrative plan of care. Allergies documented appropriately. Patient identifiers and consent correct. General Comments: PT arrives with no complaints of SOB, CP, or flu like symptoms. Pt denies having pacemaker, diabetes or sleep apnea. Pt verbalizes understandinfg od discharge. Finalized By: Carly Mccall RN Document Signatures Signed By: Carly Mccall RN 06/08/25 11:14NoSelect [facility], IncPatient Handouton 06-08-2025 Patient [facility] [address] [place] [address], [place] [address] Pain Procedure Home Care Instructions For the next 24 hours do not do any of the following activities: - Drive a car or operate heavy machinery - Drink alcoholic beverages - Make legal decisions or sign any contracts Please call the office at [phone] if you have any questions or develop any of the following: - Fever more than 101.2, chills - Urinary retention - Headache or worsening of your headache - Changes with your vision - Apply ice to the injection site every 2 hours as needed for 15 minutes at a time. Keep a barrier between the ice element and your skin to protect it. - There may be immediate pain relief after the procedure. The pain may return 4- 6 hours after the local anesthetic wears off. - Do not take a shower for the first 12 hours after the procedure. No bath for 24 hours. - Call your primary care provider if your blood sugar is greater than 250. Go to the Emergency Department if you lose control of your bladder, bowel or legs. Please keep track of your pain on a scale of 0 to10, with 10 being the worst pain and 0 being no pain. Bring that record to your follow up appointment. Using one of the pain scales included in these instructions, record your pain level at: 1 hour: 2 hours: 4 hours: Normal [facility] Protime / INRon 30-65-1587RGF Coag (PPP) [Relative time] 2.3 {INR}Abnormal0.8 - 1.2PAdena Regional Medical Center SystemInterpretation and review of laboratory resultsAbnormalProMedica Our Lady Of Mercy Hospital SystemProOhio State Health System SystemCoding Summaryon 13-96-4220Juahwx SummaryMLBase 64 EzkshasrIOl8dIc+PGhlYWQ+IO3WLVXgE71atIMidI2wM1RKHTnXKfmlDQAJQSuSOnBancXvNV0eiUOl ZXJu [file] OiB (more content not included)...NormalMercy Health Lorain Hospital HospitalProgress Note - Provideron 05-66-9717Oqpybzkm Note - Provider [id number]#1.00OTGTIFFNoSelect Medical Specialty Hospital - Boardman, IncPOCT Protime / INRon 98-70-7511SVS Coag (PPP) [Relative time]2.8 {INR}Abnormal0.8 - 1.2[facility] SystemInterpretation and review of laboratory results AbnormalProShelby Memorial HospitalProShelby Memorial HospitalPOCT Protime / INRon 70-38-1518XZP Coag (PPP) [Relative time]2.9 {INR}Abnormal0.8 - 1.2PCorey HospitalInterpretation and review of laboratory resultsAbnormalProShelby Memorial HospitalProShelby Memorial HospitalAmbulatory referral to Diabetic Educationon 96-35-2392SvwRuvlxgShelby Memorial HospitalXR knee LT 4V*on 82-06-3787FL knee LT 4V* [facility] Main [place] [address] [place] [address] XRay Report Signed Patient: Noemi Brand MR#: [id number] : 1960 Acct:[id number] Age/Sex: 64 / F ADM Date: 03/04/25 Loc: XDUC Room: Type: [facility] Attending Dr: Sophy Riddle APRN, [employer]URB[employer] ASSEMBLER-C Copies to: Sophy Riddle APRN Ordering Provider: Sophy Riddle APRN Date of Service: 03/04/25 XR/XR knee LT 4V*: S89.92XA - Unspecified injury of left lower leg, initial ... LEFT KNEE - 4 views CLINICAL HISTORY: Left knee injury on Wednesday. Now with pain COMPARISON: None FINDINGS: Small joint effusion. 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 No acute bony process. XR/XR knee LT 4V* IMPRESSION: MILD DEGENERATIVE CHANGES WITHOUT ACUTE BONY PROCESS. Impression dictated by: Lisandro Helms Jr., D.OGeovani 03/04/2025 10:25 AM Dictation Location: [facility]-18 Transcribed By: [facility] 03/04/25 1025 Dictated By: Lisandro Helms Jr, DO 03/04/25 1022 Signed By: 03/04/[address] [place] [address] Physician GroupCB WITH AUTO DIFFERENTIALon 49-01-1266UZDGPBJPL ABSOLUTE COUNT (10*3/UL) BY AUTOMATED COUNT0.0 10*3/uLNormal 0.0-0.2ProMedica Mesa HospitalComment on above:Performed By: #### CBCA #### [facility] ([facility]) [address] [place] [address] VIRBASOPHILS RELATIVE PERCENT BY AUTOMATED COUNT0.5 %Normal [facility] Medical CenterComment on above:Performed By: #### CBCA #### [facility] ([facility]) [address] [place] [address] VIRCELLAVISION DIFFERENTIAL TYPEAUTOMATED DIFFERENTIALNormal [facility] Medical CenterComment on above:Performed By: #### CBCA #### [facility] ([facility]) [address] [place] [address] VIREosinophils (Bld) [#/Vol]0.1 10*3/uLNormal0.0-0.4[facility] Medical CenterComment on above:Performed By: #### CBCA #### [facility] ([facility]) [address] [place] [address] VIREOSINOPHILS RELATIVE PERCENT BY AUTOMATED COUNT0.8 %Normal [facility] Medical CenterCommymichigan medical center clare on above:Performed By: #### CBCA #### [facility] ([facility]) [address] [place] [address] VIRErythrocyte distribution width (RBC) [Ratio]15.6 %High 11.5-15[facility] Medical CenterComment on above:Performed By: #### CBCA #### [facility] ([facility]) [address] [place] [address] VIRHematocrit (Bld) [Volume fraction]39.0 %Wsfsnt76-24GglHzvlfjChristus Mother Frances Hospital – Sulphur SpringsComment on above:Performed By: #### CBCA #### [facility] ([facility]) [address] [place] [address] VIRHemoglobin (Bld) [Mass/Vol]13.0 g/rUTjtent39.7-15.5PBlanchard Valley Health System Bluffton HospitalComment on above:Performed By: #### CBCA #### [facility] ([facility]) [address] [place] [address] VIRLYMPHOCYTES ABSOLUTE COUNT (10*3/UL) BY AUTOMATED COUNT1.5 10*3/uLNormal1.0-3.5PBlanchard Valley Health System Bluffton HospitalCommymichigan medical center clare on above:Performed By: #### CBCA #### [facility] ([facility]) [address] [place] [address] VIRLYMPHOCYTES RELATIVE PERCENT BY AUTOMATED COUNT22.8 %Normal [facility] Medical CenterComment on above:Performed By: #### CBCA #### [facility] ([facility]) [address] [place] [address] VIRMCH (RBC) [Entitic mass]30.2 yvOozrft45-20FmuByvkbpChristus Mother Frances Hospital – Sulphur SpringsComment on above:Performed By: #### CBCA #### [facility] ([facility]) [address] [place] [address] VIRMCHC (RBC) [Mass/Vol]33.3 g/dKMtvizm35-24PaoCxyfogUniversity Hospitals Parma Medical CenterComment on above:Performed By: #### CBCA #### [facility] ([facility]) [address] [place] [address] VIRMCV (RBC) [Entitic vol]91 mIXzqpcf23-525FukFanlxf Fremont HospitalComment on above:Performed By: #### CBCA #### [facility] ([facility]) [address] [place] [address] VIRMONOCYTES ABSOLUTE COUNT (10*3/UL) BY AUTOMATED COUNT0.6 10*3/uLNormal0.0-0.9[facility] Medical CenterCommymichigan medical center clare on above:Performed By: #### CBCA #### [facility] ([facility]) [address] [place] [address] VIRMONOCYTES RELATIVE PERCENT BY AUTOMATED COUNT8.9 %Normal [facility] Medical CenterComment on above:Performed By: #### CBCA #### [facility] ([facility]) [address] [place] [address] VIRNEUTROPHILS ABSOLUTE COUNT BY AUTOMATED COUNT4.5 10*3/uL Normal1.5-6.6[facility] Medical CenterComment on above:Performed By: #### CBCA #### [facility] ([facility]) [address] [place] [address] VIRNEUTROPHILS RELATIVE PERCENT BY AUTOMATED COUNT67.0 %Normal [facility] Medical CenterComment on above:Performed By: #### CBCA #### [facility] ([facility]) [address] [place] [address] VIRPlatelet mean volume (Bld) [Entitic vol]9.0 fLNormal7-12 [facility] CenterComment on above:Performed By: #### CBCA #### [facility] ([facility]) [address] [place] [address] VIRPlatelets (Bld) [#/Vol]237 10*3/gXLagjzq326-774ZprUjqsea [facility]remont HospitalComment on above:Performed By: #### CBCA #### [facility] ([facility]) [address] [place] [address] VIRRBC COUNT4.31 X10E12/LNormal3.8-5.2PUniversity Medical Centerica U.S. Naval HospitalComment on above:Performed By: #### CBCA #### [facility] ([facility]) [address] [place] [address] VIRWBC (Bld) [#/Vol]6.7 10*3/uLNormal4-11[facility] Medical CenterComment on above:Performed By: #### CBCA #### [facility] ([facility]) [address] [place] [address] VIRCOMPLEMENT ACTIVITY TOTAL, (CH50)on 78-80-2498VUTDUUHIST TOTAL89.0 U/uPPpfzaa03.7-89.9[facility] Medical CenterComment on above:Result Comment: Normal activity in total complement functional assay (CH50) suggests normal presence and function of complement components, C1-C9. However, normal CH50 result can also occur in the presence of low levels of complement components due to excess presence of complement proteins in human serum. If clinically indicated, measurement of individual complement components is recommended. Normal CH50 result with low complement alternate pathway functional (AH50, test code [id number]) activity suggests defects in the alternate pathway. REFERENCE INTERVAL: Complement Activity Total, (CH50) 38.6 U/mL or less ..........Low 38.7-89.9 U/mL .............Normal 90.0 U/mL or greater .......High Performed By: [facility] [address] [place] [id number] Global Recruiter: Abdullahi Matthew MD, PhD CLIA Number: [id number] By: #### CH50C #### [facility] ([facility]) [address] [place] [address] VIRCOMPLEMENT PROFILE (C3 AND C4)on 02-16-2025 COMPLEMENT C3152 mg/lAOodazh14-649OslKjimbb [facility]remont HospitalComment on above: Performed By: #### C34 #### [facility] ([facility]) [address] [place] [address] VIRCOMPLEMENT C445 mg/qNEqicqu49-48VsmWrhanyChristus Mother Frances Hospital – Sulphur Springs Comment on above:Performed By: #### C34 #### [facility] ([facility]) [address] [place] [address] VIRCOMPREHENSIVE METABOLIC PANELon 03-23-5442Laxvxfs [Mass/Vol] 4.3 g/dLNormal3.2-5.3PBlanchard Valley Health System Bluffton HospitalComment on above:Performed By: #### CMP #### [facility] ([facility]) [address] [place] [address] VIRALP [Catalytic activity/Vol]82 U/BAexenq31-257OfkErophoChristus Mother Frances Hospital – Sulphur SpringsComment on above:Performed By: #### CMP #### [facility] ([facility]) [address] [place] [address] VIRALT [Catalytic activity/Vol]19 U/LNormal<=31PBlanchard Valley Health System Bluffton HospitalComment on above:Performed By: #### CMP #### [facility] ([facility]) [address] [place] [address] VIRAnion gap [Moles/Vol]9 mmol/LNormal5-15ProChristus Mother Frances Hospital – Sulphur SpringsComment on above:Performed By: #### CMP #### [facility] ([facility]) [address] [place] [address] VIRAST [Catalytic activity/Vol]15 U/LNormal<=41ProChristus Mother Frances Hospital – Sulphur SpringsComment on above:Performed By: #### CMP #### [facility] ([facility]) [address] [place] [address] VIRBilirubin [Mass/Vol]0.4 mg/dLNormal0.3-1.2PBlanchard Valley Health System Bluffton HospitalComment on above:Performed By: #### CMP #### [facility] ([facility]) [address] [place] [address] VIRCalcium [Mass/Vol]9.3 mg/dLNormal8.5-10.5PBlanchard Valley Health System Bluffton HospitalComment on above:Performed By: #### CMP #### [facility] ([facility]) [address] [place] [address] VIRChloride [Moles/Vol]101 mmol/OIsqwzf69-081IehFeskmsChristus Mother Frances Hospital – Sulphur SpringsComment on above:Performed By: #### CMP #### [facility] ([facility]) [address] [place] [address] VIRCO2 [Moles/Vol]31 mmol/MQzvfqb37-09KevIddsmxBlanchard Valley Health System Bluffton HospitalComment on above:Performed By: #### CMP #### [facility] ([facility]) [address] [place] [address] VIRCreatinine [Mass/Vol]0.92 mg/dLNormal0.40-1.00ProChristus Mother Frances Hospital – Sulphur SpringsComment on above:Result Comment: METHOD TRACEABLE TO IDMS STANDARDPerformed By: #### CMP #### [facility] ([facility]) [address] [place] [address] VIRGFR/1.73 sq M.predicted among non-blacks MDRD (S/P/Bld) [Vol rate/Area]70 mL/min/{1.73_m2}Normal>=60ProChristus Mother Frances Hospital – Sulphur SpringsComment on above:Result Comment: Reported eGFR is based on the CKD-EPI 2020 equation that does not use a race coefficient.Performed By: #### CMP #### [facility] ([facility]) [address] [place] [address] VIRGlucose [Mass/Vol]115 mg/lLDmvi97-18OzsCvyodtChristus Mother Frances Hospital – Sulphur SpringsComment on above:Performed By: #### CMP #### [facility] ([facility]) [address] [place] [address] VIRPotassium [Moles/Vol]4.2 mmol/LNormal3.5-5.0ProChristus Mother Frances Hospital – Sulphur SpringsComment on above:Performed By: #### CMP #### [facility] ([facility]) [address] [place] [address] VIRProtein [Mass/Vol]6.7 g/dLNormal6.0-8.0ProChristus Mother Frances Hospital – Sulphur SpringsComment on above:Performed By: #### CMP #### [facility] ([facility]) [address] [place] [address] VIRSodium [Moles/Vol]141 mmol/UQssjjk325-452UryTmepyk [facility]ont HospitalComment on above:Performed By: #### CMP #### [facility] ([facility]) [address] [place] [address] VIRUrea nitrogen [Mass/Vol]16 mg/dLNormal5-27[facility] Medical CenterComment on above:Performed By: #### CMP #### [facility] ([facility]) [address] [place] [address] VIRERYTHROCYTE SEDIMENTATION RATE (ESR)on 48-81-8388AEL, ERYTHROCYTE SEDIMENTATION RATE6 mm/hNormal0-30[facility] Medical CenterComment on above:Performed By: #### ESR #### [facility] ([facility]) [address] [place] [address] VIRPOCT Protime / INRon 47-10-7654VDR Coag (PPP) [Relative time]2.6 {INR}Abnormal0.8 - 1.2PCorey HospitalInterpretation and review of laboratory resultsAbnoSaint John Vianney Hospital URINALYSISon 95-29-0970Pnvwqnpqy Ql (U)NegativeNormalNegKettering Health Washington TownshipComment on above:Performed By: #### UA #### [facility] ([facility]) [address] [place] [address] VIRBLOOD/HGBNegativeUK Healthcare on above:Performed By: #### UA #### [facility] ([facility]) [address] [place] [address] VIRColor (U)YellowNormalYellow, ColorlessProChristus Mother Frances Hospital – Sulphur SpringsComment on above:Performed By: #### UA #### [facility] ([facility]) [address] [place] [address] VIRGlucose Ql (U)NegativeNormalNegKettering Health Washington TownshipComment on above:Performed By: #### UA #### [facility] ([facility]) [address] [place] [address] VIRKetones Ql (U)NegativeNormalNegativeUniversity Hospitals Parma Medical CenterComment on above:Performed By: #### UA #### [facility] ([facility]) [address] [place] [address] VIRLeukocyte esterase Test strip Ql (U)LargeAbnormalNegative [facility] Par[facility] Medical CenterCommymichigan medical center clare on above:Performed By: #### UA #### [facility] ([facility]) [address] [place] [address] VIRMUCOUSPresentAbnormalNonePBlanchard Valley Health System Bluffton HospitalCommymichigan medical center clare on above:Performed By: #### UA #### [facility] ([facility]) [address] [place] [address] VIRNitrite Ql (U)NegativeNormalNegativeUniversity Hospitals Parma Medical CenterCommymichigan medical center clare on above:Performed By: #### UA #### [facility] ([facility]) [address] [place] [address] VIRPH,URINE6.8Pnncsf6.0-8.5PBlanchard Valley Health System Bluffton HospitalCommymichigan medical center clare on above:Performed By: #### UA #### [facility] ([facility]) [address] [place] [address] VIRProtein Ql (U)TraceAbnormalNegativeUniversity Hospitals Parma Medical CenterCommymichigan medical center clare on above:Performed By: #### UA #### [facility] ([facility]) [address] [place] [address] VIRR.B.IIXOD0Fokpfq9-6HbtUqzkrzBlanchard Valley Health System Bluffton HospitalCommymichigan medical center clare on above:Performed By: #### UA #### [facility] ([facility]) [address] [place] [address] VIRSpecific gravity (U) [Rel density]1.446Nluxhi6.003-1.035 [facility] Medical CenterCommymichigan medical center clare on above:Performed By: #### UA #### [facility] ([facility]) [address] [place] [address] VIRTURBIDITYClearNormalClearUniversity Hospitals Parma Medical CenterComment on above:Performed By: #### UA #### [facility] ([facility]) [address] [place] [address] VIRUROBILINOGEN<1.1 eu/dLNormal<1.1 eu/dLProChristus Mother Frances Hospital – Sulphur SpringsComment on above:Performed By: #### UA #### [facility] ([facility]) [address] [place] [address] VIRW.B.MPQQN93Zjut6-0VkfJnnugpBlanchard Valley Health System Bluffton HospitalComment on above:Performed By: #### UA #### [facility] ([facility]) [address] [place] [address] VIRCBC WITH AUTO DIFFERENTIALon 05-44-3665BLAESWVCC ABSOLUTE COUNT (10*3/UL) BY AUTOMATED COUNT0.0 10*3/uLNormal0.0-0.2PProtestant Deaconess Hospital Ambulatory PPGComment on above:Performed By: #### CBCA #### [facility] ([facility]) [address] [place] [address] VIRBASOPHILS RELATIVE PERCENT BY AUTOMATED COUNT0.5 %Normal [facility] Ambulatory PPGComment on above:Performed By: #### CBCA #### [facility] ([facility]) [address] [place] [address] VIRCELLAVISION DIFFERENTIAL TYPEAUTOMATED DIFFERENTIALNormal [facility] Ambulatory PPGComment on above:Performed By: #### CBCA #### [facility] ([facility]) [address] [place] [address] VIREosinophils (Bld) [#/Vol]0.0 10*3/uLNormal0.0-0.4[facility]ulatory PPGComment on above:Performed By: #### CBCA #### [facility] ([facility]) [address] [place] [address] VIREOSINOPHILS RELATIVE PERCENT BY AUTOMATED COUNT0.6 %Normal [facility] Ambulatory PPGComment on above:Performed By: #### CBCA #### [facility] ([facility]) [address] [place] [address] VIRErythrocyte distribution width (RBC) [Ratio]15.5 %High 11.5-15[facility] Ambulatory PPGComment on above:Performed By: #### CBCA #### [facility] ([facility]) [address] [place] [address] VIRHematocrit (Bld) [Volume fraction]40.4 %Hmicnp02-67IquPvkywm Hospital Ambulatory PPGComment on above:Performed By: #### CBCA #### [facility] ([facility]) [address] [place] [address] VIRHemoglobin (Bld) [Mass/Vol]13.5 g/tZNxvxli73.7-15.5PProtestant Deaconess Hospital Ambulatory PPGComment on above:Performed By: #### CBCA #### [facility] ([facility]) [address] [place] [address] VIRLYMPHOCYTES ABSOLUTE COUNT (10*3/UL) BY AUTOMATED COUNT1.8 10*3/uLNormal1.0-3.5PProtestant Deaconess Hospital Ambulatory PPGComment on above:Performed By: #### CBCA #### [facility] ([facility]) [address] [place] [address] VIRLYMPHOCYTES RELATIVE PERCENT BY AUTOMATED COUNT21.3 %Normal [facility] Ambulatory PPGComment on above:Performed By: #### CBCA #### [facility] ([facility]) [address] [place] [address] VIRMCH (RBC) [Entitic mass]29.9 mmYokmrt31-95MkkHdtxsg Hospital Ambulatory PPGComment on above:Performed By: #### CBCA #### [facility] ([facility]) [address] [place] [address] VIRMCHC (RBC) [Mass/Vol]33.4 g/xNPbuowe61-12SnmUeoiuj Hospital Ambulatory PPGComment on above:Performed By: #### CBCA #### [facility] ([facility]) [address] [place] [address] VIRMCV (RBC) [Entitic vol]90 dYGlfwgx87-926JhwNkusmj Hospital Ambulatory PPGComment on above:Performed By: #### CBCA #### [facility] ([facility]) [address] [place] [address] VIRMONOCYTES ABSOLUTE COUNT (10*3/UL) BY AUTOMATED COUNT0.7 10*3/uLNormal0.0-0.9[facility] Ambulatory PPGComment on above:Performed By: #### CBCA #### [facility] ([facility]) [address] [place] [address] VIRMONOCYTES RELATIVE PERCENT BY AUTOMATED COUNT8.0 %Normal [facility] Ambulatory PPGComment on above:Performed By: #### CBCA #### [facility] ([facility]) [address] [place] [address] VIRNEUTROPHILS ABSOLUTE COUNT BY AUTOMATED COUNT5.8 10*3/uL Normal1.5-6.6[facility] PPGComment on above:Performed By: #### CBCA #### [facility] ([facility]) [address] [place] [address] VIRNEUTROPHILS RELATIVE PERCENT BY AUTOMATED COUNT69.6 %Normal [facility] Ambulatory PPGComment on above:Performed By: #### CBCA #### [facility] ([facility]) [address] [place] [address] VIRPlatelet mean volume (Bld) [Entitic vol]8.8 fLNormal7-12 [facility] Ambulatory PPGComment on above:Performed By: #### CBCA #### [facility] ([facility]) [address] [place] [address] VIRPlatelets (Bld) [#/Vol]245 10*3/dAWsogzn037-105[facility] PPGComment on above:Performed By: #### CBCA #### [facility] ([facility]) [address] [place] [address] VIRRBC COUNT4.51 X10E12/LNormal3.8-5.2P[facility] PPGComment on above:Performed By: #### CBCA #### [facility] ([facility]) [address] [place] [address] VIRWBC (Bld) [#/Vol]8.4 10*3/uLNormal4-11[facility] PPGComment on above:Performed By: #### CBCA #### [facility] ([facility]) [address] [place] [address] VIRCBC auto differentialon [id number] (Bld) [#/Vol]0 10*3/uL0.0 - 0.2 10*3/uLUniversity [facility] SystemBasophils/100 WBC (Bld)0.5 % [facility] HospitalDifferential cell count method Nom (Bld)AUTOMATED DIFFERENTIALMemorial Health System Selby General HospitalEosinophils (Bld) [#/Vol]0 10*3/uL0.0 - 0.4 10*3/uLMemorial Health System Selby General HospitalEosinophils/100 WBC (Bld)0.6 %[facility] [facility] HospitalErythrocyte distribution width (RBC) [Ratio]15.5 %High11.5 - 15 %[facility] HospitalHematocrit (Bld) [Volume fraction]40.4 %35 - 47 %[facility] HospitalHemoglobin (Bld) [Mass/Vol]13.5 g/dL11.7 - 15.5 g/dLMemorial Health System [facility] HospitalInterpretation and review of laboratory resultsAbnoAtrium Health Mountain IslandLymphocytes (Bld) [#/Vol]1.8 10*3/uL1.0 - 3.5 10*3/uLMemorial Health System Selby General HospitalLymphocytes/100 WBC (Bld)21.3 %[facility] HospitalMC (RBC) [Entitic mass]29.9 pg27 - 34 pgPUniversity Medical Centerica Health SystemMCHC (RBC) [Mass/Vol]33.4 g/dL32 - 36 g/dLMemorial Health System [facility] General HospitalMCV (RBC) [Entitic vol]90 fL80 - 100 [facility]'s HospitalMonocytes (Bld) [#/Vol]0.7 10*3/uL0.0 - 0.9 10*3/uLMemorial Health System [facility] HospitalMonocytes/100 WBC (Bld)8 %[facility] HospitalNeutrophils (Bld) [#/Vol]5.8 10*3/uL1.5 - 6.6 10*3/uLMemorial Health System [facility] General HospitalNeutrophils/100 WBC (Bld)69.6 %[facility] HospitalPlatelet mean volume (Bld) [Entitic vol]8.8 fL 7 - 12 [facility] Children's HospitalPlatelets (Bld) [#/Vol]245 10*3/uLMemorial Health System Selby General HospitalRBC (Bld) [#/Vol]4.51 10*6/[facility] GladwinWBC LM Ql (Sput)8.4[facility] HospitalCOMPREHENSIVE METABOLIC PANELon 43-95-2483Dfliodn [Mass/Vol]4.4 g/dLNormal3.2-5.3PProtestant Deaconess Hospital Ambulatory PPGComment on above:Performed By: #### CMP #### [facility] ([facility]) [address] [place] [address] VIRALP [Catalytic activity/Vol]87 U/RDdysah46-304IeoNgzprq Hospital Ambulatory PPGComment on above:Performed By: #### CMP #### [facility] ([facility]) [address] [place] [address] VIRALT [Catalytic activity/Vol]29 U/LNormal<=31PProtestant Deaconess Hospital Ambulatory PPGComment on above:Performed By: #### CMP #### [facility] ([facility]) [address] [place] [address] VIRAnion gap [Moles/Vol]10 mmol/LNormal5-15[facility] Ambulatory PPGComment on above:Performed By: #### CMP #### [facility] ([facility]) [address] [place] [address] VIRAST [Catalytic activity/Vol]27 U/LNormal<=41[facility] Ambulatory PPGComment on above:Performed By: #### CMP #### [facility] ([facility]) [address] [place] [address] VIRBilirubin [Mass/Vol]0.3 mg/dLNormal0.3-1.2PProtestant Deaconess Hospital Ambulatory PPGComment on above:Performed By: #### CMP #### [facility] ([facility]) [address] [place] [address] VIRCalcium [Mass/Vol]9.8 mg/dLNormal8.5-10.5PProtestant Deaconess Hospital Ambulatory PPGComment on above:Performed By: #### CMP #### [facility] ([facility]) [address] [place] [address] VIRChloride [Moles/Vol]102 mmol/FAiztia92-472ZvtDuktxk Hospital Ambulatory PPGComment on above:Performed By: #### CMP #### [facility] ([facility]) [address] [place] [address] VIRCO2 [Moles/Vol]29 mmol/XHhrxmd94-11LzfSjsmll Hospital Ambulatory PPGComment on above:Performed By: #### CMP #### [facility] ([facility]) [address] [place] [address] VIRCreatinine [Mass/Vol]0.87 mg/dLNormal0.40-1.00[facility] Ambulatory PPGComment on above:Result Comment: METHOD TRACEABLE TO IDMS STANDARDPerformed By: #### CMP #### [facility] ([facility]) [address] [place] [address] VIRGFR/1.73 sq M.predicted among non-blacks MDRD (S/P/Bld) [Vol rate/Area]75 mL/min/{1.73_m2}Normal>=60[facility] Ambulatory PPGComment on above:Result Comment: Reported eGFR is based on the CKD-EPI 2020 equation that does not use a race coefficient.Performed By: #### CMP #### [facility] ([facility]) [address] [place] [address] VIRGlucose [Mass/Vol]127 mg/xPKruj52-40McwGotjan Hospital Ambulatory PPGComment on above:Performed By: #### CMP #### [facility] ([facility]) [address] [place] [address] VIRPotassium [Moles/Vol]4.2 mmol/LNormal3.5-5.0[facility] Ambulatory PPGComment on above:Performed By: #### CMP #### [facility] ([facility]) [address] [place] [address] VIRProtein [Mass/Vol]7.5 g/dLNormal6.0-8.0[facility] Ambulatory PPGComment on above:Performed By: #### CMP #### [facility] ([facility]) [address] [place] [address] VIRSodium [Moles/Vol]141 mmol/ZQrfyjb211-297MqtQpbmns Hospital Ambulatory PPGComment on above:Performed By: #### CMP #### [facility] ([facility]) [address] [place] [address] VIRUrea nitrogen [Mass/Vol]19 mg/dLNormal5-27[facility] Ambulatory PPGComment on above:Performed By: #### CMP #### [facility] ([facility]) [address] [place] [address] VIRComprehensive metabolic panelon 19-09-7363Vykzkib [Mass/Vol] 4.4 g/dL3.2 - 5.3 g/dLProOhio State Health System SystemALP [Catalytic activity/Vol]87 U/L 39 - 130 U/LProMedica Health SystemALT No additional P-5'-P [Catalytic activity/Vol]29 U/LNINF - 31 U/LProMedica Health SystemAnion gap [Moles/Vol]10 mmol/L5 - 15 mmol/[facility] Health SystemAST [Catalytic activity/Vol]27 U/LNINF - 41 U/[facility] Health SystemBilirubin [Mass/Vol]0.3 mg/dL0.3 - 1.2 mg/dL ProMM [facility] SystemCalcium [Mass/Vol]9.8 mg/dL8.5 - 10.5 mg/dLProOhio State Health System SystemChloride [Moles/Vol]102 mmol/L98 - 109 mmol/[facility] Health SystemCO2 [Moles/Vol]29 mmol/L22 - 32 mmol/[facility] Health SystemCreatinine [Mass/Vol]0.87 mg/dL0.40 - 1.00 mg/dLMemorial Health System [facility] HospitalComment on above: METHOD TRACEABLE TO IDMS STANDARDEGFR Non-Race Paqmaeqzo13- PINTenet St. LouisComment on above:Reported eGFR is based on the CKD-EPI 2020 equation that does not use a race coefficient. Glucose [Mass/Vol]127 mg/xMWuyj76 - 99 mg/dLUniversity Hospitals Portage [facility] Center SystemPotassium [Moles/Vol]4.2 mmol/L3.5 - 5.0 mmol/[facility] Health SystemProtein [Mass/Vol] 7.5 g/dL6.0 - 8.0 g/dLUniversity Hospitals Portage [facility] SystemSodium [Moles/Vol]141 mmol/L134 - 146 mmol/[facility] Health SystemUrea nitrogen [Mass/Vol]19 mg/dL5 - 27 mg/dL [facility] HospitalHEMOGLOBIN A1Con 05-53-3439Biewxim [Mass/Vol]143 mg/dL NormalProSumma Health Barber[facility] Campus Ambulatory PPGComment on above:Performed By: #### HA1C #### [facility] ([facility]) [address] [place] [address] JCIWkV1a (Bld) [Mass fraction]6.6 %High4.4-5.6[facility] Ambulatory PPGComment on above:Result Comment: ADA Guidelines Result HgbA1c Normal : less than 5.7 % Prediabetes : 5.7 % to 6.4 % Diabetes : > 6.4 % Use with caution in patients with abnormal hemoglobin variants as the half-life of red blood cells and in vivo glycation rates are affected.Performed By: #### HA1C #### [facility] ([facility]) [address] [place] [address] VIRLIPID PROFILEon 16-64-6414Wtclfmijlif [Mass/Vol]216 mg/dL Annh691-673ItxRjforo Hospital Ambulatory PPGComment on above:Performed By: #### LIPR #### [facility] ([facility]) [address] [place] [address] VIRCholesterol in HDL [Mass/Vol]49 mg/dLNormal>39[facility] Ambulatory PPGComment on above:Result Comment: HDL <40 mg/dL - High Risk HDL > or = 40mg/dL- Desirable HDL >60 mg/dL - Negative RiskPerformed By: #### LIPR #### [facility] ([facility]) [address] [place] [address] VIRCholesterol in LDL [Mass/Vol]100 mg/dLNormal<130[facility] Ambulatory PPGComment on above:Result Comment: LDL <100 mg/dL - Desirable LDL >160 mg/dL - High RiskPerformed By: #### LIPR #### [facility] ([facility]) [address] [place] [address] VIRCHOLESTEROL:HDL4.6Bofnte2.0-5.0[facility] Ambulatory PPGComment on above:Performed By: #### LIPR #### [facility] ([facility]) [address] [place] [address] VIRTriglyceride [Mass/Vol]335 mg/fIVvwj00-389QllVixxjh Hospital Ambulatory PPGComment on above:Performed By: #### LIPR #### [facility] ([facility]) [address] [place] [address] VIRVERY LOW VUKZZSORUBS82 mg/dLHigh0-30[facility] Ambulatory PPGComment on above:Performed By: #### LIPR #### [facility] ([facility]) [address] [place] [address] VIRLipid profileon 24-27-0922Wmycedscusf [Mass/Vol]216 mg/dL Xkwf692 - 200 mg/dLMemorial Health System [facility] HospitalCholesterol in HDL [Mass/Vol]49 mg/dL 39 - PINF mg/dLMemorial Health System [facility] HospitalComment on above:HDL <40 mg/dL - High Risk HDL > or = 40mg/dL- Desirable HDL >60 mg/dL - Negative Risk Cholesterol in HDL [Mass/Vol]4.4 mg/dL1.0 - 5.0[facility] Cholesterol in LDL [Mass/Vol]100 mg/dLNINF - 130 mg/dLMemorial Health [facility] Comment on above:LDL <100 mg/dL - Desirable LDL >160 mg/dL - High Risk Cholesterol in VLDL [Mass/Vol]67 mg/dLHigh0 - 30 mg/dLMemorial Health [facility] Triglyceride [Mass/Vol]335 mg/fNJlqr60 - 150 mg/dLMemorial Health System [facility] HospitalNo Panel Informationon 61-86-0752Dwfpslsaekbmkz and review of laboratory results AbnormalWilkes-Barre General HospitalTHYROID PROFILE INCLUDES TSH FT4on 76-07-5240Qezy T4 [Mass/Vol]0.89 ng/dLNormal0.61-1.60[facility] Ambulatory PPGComment on above:Performed By: #### THYR #### [facility] ([facility]) [address] [place] [address] VIRTSH1.39 uIU/mLNormal0.49-4.67[facility] Ambulatory PPGComment on above:Performed By: #### THYR #### [facility] ([facility]) [address] [place] [address] VIRThyroid profile includes TSH FT4on 15-86-7644Dnth T4 [Mass/Vol]0.89 ng/dL0.61 - 1.60 ng/dLMemorial Health System [facility] HospitalInterpretation and review of laboratory resultsNormalMemorial Health System [facility] HospitalTS Qn1.39 m[IU]/L [facility] HospitalPOCT Protime / INRon 32-59-9066XZI Coag (PPP) [Relative time]1.9 {INR}Abnormal0.8 - 1.2PCorey Hospital Interpretation and review of laboratory resultsAbAscension Saint Clare's HospitalPOCT Protime / INRon 26-90-8493ZQT Coag (PPP) [Relative time]2.5 {INR}Abnormal0.8 - 1.2PCorey HospitalInterpretation and review of laboratory resultsAbExcela Westmoreland HospitalPOCT Protime / INRon 70-39-4940CGS Coag (PPP) [Relative time]2 {INR}Abnormal0.8 - 1.2 [facility] HospitalInterpretation and review of laboratory resultsAbFroedtert HospitalCT Protime / INRon 42-50-0439PIT Coag (PPP) [Relative time]2.3 {INR}Abnormal0.8 - 1.2PCorey Hospital Interpretation and review of laboratory resultsAbAscension Saint Clare's HospitalPOCT Protime / INRon 30-82-2396DXK Coag (PPP) [Relative time]2.4 {INR}Abnormal0.8 - 1.2PCorey HospitalInterpretation and review of laboratory resultsAbExcela Westmoreland Hospital Consent Formson 67-26-9927Dkwechf Forms [id number]#1.00[facility] Controlled Substances Agreementson 42-40-9723Pnmhhdapzo Substances Agreements [id number]#1.00[facility] Progress Note - Provideron 55-27-3610Onexvqpq Note - Provider [id number]#1.00OTMercy Health St[address] Anne HospitalPOCT Protime / INRon 40-19-7936FRU Coag (PPP) [Relative time]2.9 {INR}Abnormal0.8 - 1.2PCorey HospitalInterpretation and review of laboratory results AbnormalProSouthwest Health Center SystemPOCT Protime / INRon 84-81-6715PVO Coag (PPP) [Relative time]3.4 {INR}Abnormal0.8 - 1.2PCorey HospitalInterpretation and review of laboratory resultsAbnormalWilkes-Barre General HospitalReminderhca midwest division 71-56-3889IgvslxstxRavyiawfk From: Fanny Ray To: EU - Recalls Gerry; Sent: 08/29/2024 14:19:28 EST Show up: 07/30/2025 14:19:00 EST Subject: 1 yr LUCY Due Date/Time: 08/29/2025 14:19:00 EST Reminder Message Please Remember to:_Please schedule 1 yr LUCY for pt. She will also need KUB for her 1 yr f/u. PATIENT RELATED REMINDER:_ ( ) Call Patient ( ) Ask Patient to ( ) Call Relative ( ) Schedule Patient ( ) Follow up on Results ( ) Other: PROVIDER RELATED REMINDER:_ ( ) Maintenance Leader ( ) Call Pharmacy ( ) Call Lab ( ) Other: Special Instructions:_ Comments:_DajaHoly Cross HospitalUrology Office/Clinic Noteon 87-15-7280Pbxiyyf Office/Clinic NoteUrology Office/Clinic Note Chief Complaint 1 yr w/ LUCY& KUB HPI Staff 64 yr old female here for 1 yr LUCY & KUB Previous DX; Kidney stones, urinary leakage LUCY done 08/23/24 Dysuria: _no Incomplete bladder emptying: _no Hematuria: _no Frequency: _q1-2 hrs Urgency: _rarely Nocturia: _no Stream: _normal Leaking: _rarely Post void dripping: _rarely Wearing pads/ Depends: _no Urge incontinence: _no Stress incontinence: _no Incontinence without Sensory Awareness: _no Abdominal pain: _no Flank pain: _no Sexual complaints: _ Review of Systems PHQ Score Initial Depression Screen Score: 0 SCORE Physical Exam Vitals & Measurements T: 37.8 ???C(Oral) HR: 58(Peripheral) BP: 152/60 HT: 65 in HT: 165 cm WT: 97.3 kg WT: 214.51 lb BMI: 35.74 Assessment/Plan BBSQ 7 very good control. UA completed in office today shows no microhematuria or signs of infection. 1. Kidney stone, (N20.0: Calculus of kidney)Kidney stones Has passed 5 stones in her life. most recent was Nov 2019 and pt passed this stone. KUB 08/07/22 shows no stones but obscured by stool. KUB 08/24/23 - no stones noted, +constipation LUCY 08/24/23 - bilat stones measuring up to 6mm in the Rt and 4mm in the Lt kidney. no hydro. KUB 08/23/24 - stones not visible LUCY 08/23/24 - bilat stones measuring up to 5mm R and 3mm L. No [place]. Discussed imaging results with pt. Denies blood in urine. Denies recent infection. No UTIs this past year. Follow up in 1 yr w/LUCY and KUB. Continue stone prevention diet. Ordered: US Renal XR Abdomen 1 View Orders: Urnls Dip Stick Auto w/o Microscopy POC 12921 Follow-up With When Contact Information GERRY SAPP, ANDRE Miller, URL In 1 year [address] [place] [address] Additional Instructions: Patient Education Kidney Stones Problem List/Past Medical History Ongoing Anemia Antiphospholipid [...] (1997), Cystoscope (1987), Caesarean section (1986). Medications acetaminophen/butalbital/caffeine/codeine 300 mg-50 mg-40 mg-30 mg oral capsule, [...] 40 mg Tab FeroSul 325 mg oral tablet Fish Oil, 1200 mg, Oral folic acid 1 mg Tab, Oral, Daily Lipitor 40 mg Tab, Oral, Daily Neurontin 300 mg Cap, Oral, q6hr Pantoprazole [address] Tab, 40 mg= 1 tab(s), Oral, BID senna 17.2 mg oral tablet, Oral, Daily Seroquel, 50 mg, Oral, qPM valsartan 160 mg Tab, 160 mg= 1 tab(s), Oral, Daily Vitamin B12 1000 mcg Tab, 1000 mcg= 1 tab(s), Oral, Daily Vitamin D3, 5000 International_Unit, Oral, Daily Allergies Savella (Unknown) Trintellix (Blood in urine) Zoloft (Unknown) amoxicillin (Hives) erythromycin (Unknown) lithium (Unknown) predniSONE (Unknown) Social History Alcohol - Low Risk, 12/08/2019 Never., 08/29/2024 Substance Abuse Never., 08/29/2024 Tobacco Never (less than 100 in lifetime) Tobacco Use:., 08/29/2024 Family History Diabetes mellitus type 1: Mother and Father. Heart disease: Mother and Father. Immunizations Vaccine Date Status Comments influenza virus vaccine, inactivated 07/23/2023 Recorded SARS-CoV-2 (COVID-19) mRNA-1273 vaccine 01/16/2021 Recorded SARS-CoV-2 (COVID-19) mRNA-1273 vaccine 01/14/2021 Recorded 2022-08-25: TPV50 SARS-CoV-2 (COVID-19) mRNA-1273 vaccine 12/19/2020 Recorded influenza virus vaccine, inactivated 06/2020 Recorded influenza virus vaccine, inactivated 2020 Recorded zoster vaccine, inactivated 06/27/2019 Recorded zoster vaccine, inactivated 04/25/2019 Recorded influenza virus vaccine, inactivated 06/26/2018 Recorded influenza virus vaccine, inactivated 06/13/2018 Recorded pneumococcal 13-valent vaccine 03/08/2018 Recorded influenza virus vacc (more content not included)...[facility]itus Medical CenterComment on above:Result Comment: Electronically Signed By: ANDRE MCNEIL PA-C\Date and Time Signed: 08/29/2411:37 ESTCoding Summaryon 87-37-5788Hacmet SummaryHTMLBase 64 NkpxynovDGb9tPg+PGhlYWQ+WW3SLBRuW02naJFczH4oA1JRYUsFZoprGHLDJRnRIlRnatOxST2geLPk ZXJu [file] OiB (more content not included)...[facility]itus Medical CenterComplement C3on 73-02-1206Vkspgwviaj C3167 mg/dLXgqhao37-464Pzr [facility] Physician GroupComment on above:Result Comment: Performed at: - [facility] [place] [id number] Distribution Field Engineer: Thony Mcmillan PhD, Phone: [phone] By: #### C4, CH50, C3 #### [facility] , #### CBC, UA, CMP, ESR #### [facility] [address] [place] [address] USAComplement C4on 56-78-2489Mqjufhnqpw C440 mg/qOGovo03-10 The [facility] Hospital Physician GroupComment on above:Result Comment: PERFORMED BY: [place] [address] PATHOLOGIST JALOUSIE INSTALLER BELEM MCCALL M.D.Performed By: #### C4, CH50, C3 #### [facility] , #### CBC, UA, CMP, ESR #### [facility] [address] [place] [address] USAComplement Total (CH50)on 85-73-4524Hjvjuvvpdl Total (CH50)>60Normal>41The [facility] Hospital Physician GroupComment on above:Result Comment: Age Male Female 1 - 30 [...] of range values. Performed at: - [facility] [address] [id number] Distribution Field Engineer: Thony Mcmillan PhD, Phone: [phone] PERFORMED BY: [place] [address] PATHOLOGIST JALOUSIE INSTALLER BELEM MCCALL M.D.Performed By: #### C4, CH50, C3 #### [facility] , #### CBC, UA, CMP, ESR #### [place] [address] USAComplete Blood Count Auto Diffon 76-96-3738Pwsouwbou (Bld) [#/Vol]0.0 10*3/uLNormal0.0-0.2The [facility] Psychiatric HospitalComment on above: Performed By: #### C4, CH50, C3 #### [facility] , #### CBC, UA, CMP, ESR #### [place] [address] USABasophils/100 WBC (Bld)0.4 %Normal.The [facility] Psychiatric HospitalComment on above:Performed By: #### C4, CH50, C3 #### [facility] , #### CBC, UA, CMP, ESR #### [place] [address] USAEosinophils (Bld) [#/Vol]0.1 10*3/uLNormal0.0-0.45The [facility] Hospital Physician GroupComment on above:Performed By: #### C4, CH50, C3 #### [facility] , #### CBC, UA, CMP, ESR #### [place] [address] USAEosinophils/100 WBC (Bld)0.7 %Normal.The [facility] Hospital Physician GroupComment on above:Performed By: #### C4, CH50, C3 #### [facility] , #### CBC, UA, CMP, ESR #### [place] [address] USAErythrocyte distribution width (RBC) [Ratio]14.4 %Normal 11.9-15.3The [facility] Hospital Physician GroupComment on above:Performed By: #### C4, CH50, C3 #### [facility] , #### CBC, UA, CMP, ESR #### [place] [address] USAHematocrit (Bld) [Volume fraction]39.7 %Xxtshq64.0-46.4The [facility] Hospital Physician GroupComment on above:Performed By: #### C4, CH50, C3 #### [facility] , #### CBC, UA, CMP, ESR #### [place] [address] USAHemoglobin (Bld) [Mass/Vol]13.3 g/nVBuowqa82.8-15.4The [facility] Physician GroupComment on above:Performed By: #### C4, CH50, C3 #### [facility] , #### CBC, UA, CMP, ESR #### [facility] [address] [place] [address] USALymphocytes (Bld) [#/Vol]2.1 10*3/uLNormal1.00-4.8The [facility] Hospital Physician GroupComment on above:Performed By: #### C4, CH50, C3 #### [facility] , #### CBC, UA, CMP, ESR #### [place] [address] USALymphocytes/100 WBC (Bld)23.6 %Normal.The [facility] Hospital Physician GroupComment on above:Performed By: #### C4, CH50, C3 #### [facility] , #### CBC, UA, CMP, ESR #### [address]H (RBC) [Entitic mass]30.9 unFnrmfg35.7-34.3The [facility] Hospital Physician GroupComment on above:Performed By: #### C4, CH50, C3 #### [facility] , #### CBC, UA, CMP, ESR #### [address]V (RBC) [Entitic vol]92.1 oXHztbfo37-422Nmf [facility] Physician GroupComment on above:Performed By: #### C4, CH50, C3 #### [facility] , #### CBC, UA, CMP, ESR #### [facility] [address] [place] [address] USAMean Corpuscular HGB Conc33.6 g/rAOdtwie98.0-35.0The [facility] Physician GroupComment on above:Performed By: #### C4, CH50, C3 #### [facility] , #### CBC, UA, CMP, ESR #### [facility] [address] [place] [address] USAMonocytes (Bld) [#/Vol]0.7 10*3/uLNormal0.0-0.8The [facility] Physician GroupComment on above:Performed By: #### C4, CH50, C3 #### [facility] , #### CBC, UA, CMP, ESR #### [place] [address] USAMonocytes/100 WBC (Bld)7.8 %Normal.The [facility] Physician GroupComment on above:Performed By: #### C4, CH50, C3 #### [facility] , #### CBC, UA, CMP, ESR #### [facility] [address] [place] [address] USANeutrophils (Bld) [#/Vol]6.0 10*3/uLNormal1.8-7.7The [facility] Physician GroupComment on above:Performed By: #### C4, CH50, C3 #### [facility] , #### CBC, UA, CMP, ESR #### [facility] [address] [place] [address] USANeutrophils/100 WBC (Bld)67.5 %Normal.The [facility] Physician GroupComment on above:Performed By: #### C4, CH50, C3 #### [facility] , #### CBC, UA, CMP, ESR #### [facility] [address] [place] [address] USANRBC%0.0 /100{WBC}Normal0-0.5The [facility] Comment on above:Performed By: #### C4, CH50, C3 #### [facility] , #### CBC, UA, CMP, ESR #### [facility] [address] [place] [address] USAPlatelet mean volume (Bld) [Entitic vol]8.9 fLNormal 6.3-10.7The [facility] Hospital Physician GroupComment on above:Performed By: #### C4, CH50, C3 #### [facility] , #### CBC, UA, CMP, ESR #### [facility] [address] [place] [address] USAPlatelets (Bld) [#/Vol]255 10*3/hQDfecdg359-089Ubw [facility] Physician GroupComment on above:Performed By: #### C4, CH50, C3 #### [facility] , #### CBC, UA, CMP, ESR #### [place] [address] USARBC (Bld) [#/Vol]4.31 10*6/uLNormal3.60-5.00The [facility] Physician GroupComment on above:Performed By: #### C4, CH50, C3 #### [facility] , #### CBC, UA, CMP, ESR #### [place] [address] USAWBC (Bld) [#/Vol]8.8 10*3/uLNormal3.8-11.6The [facility] Physician GroupComment on above:Performed By: #### C4, CH50, C3 #### [facility] , #### CBC, UA, CMP, ESR #### [place] [address] USAComprehensive Metabolic Panelon [id number] [Mass/Vol]4.0 g/dLNormal3.5-5.7The [facility] Physician GroupComment on above: Performed By: #### C4, CH50, C3 #### [facility] , #### CBC, UA, CMP, ESR #### [place] [address] USAAlbumin/Globulin [Mass ratio]1.5 {ratio}NormalThe [facility] Hospital Physician GroupComment on above:Performed By: #### C4, CH50, C3 #### [facility] , #### CBC, UA, CMP, ESR #### [facility] [address] [place] [address] USAALP [Catalytic activity/Vol]80 U/WVczcmq98-566Zkw [facility] Physician GroupComment on above:Result Comment: PERFORMED BY: [place] [address] PATHOLOGIST JALOUSIE INSTALLER BELEM MCCALL M.D.Performed By: #### C4, CH50, C3 #### [facility] , #### CBC, UA, CMP, ESR #### [facility] [address] [place] [address] USAALT [Catalytic activity/Vol]17 U/LNormal7-52The [facility] Hospital Physician GroupComment on above:Performed By: #### C4, CH50, C3 #### [facility] , #### CBC, UA, CMP, ESR #### [facility] [address] [place] [address] USAAnion gap [Moles/Vol]11.5 mmol/LNormal6.0-15.0The [facility] Hospital Physician GroupComment on above:Performed By: #### C4, CH50, C3 #### [facility] , #### CBC, UA, CMP, ESR #### [facility] [address] [place] [address] USAAST [Catalytic activity/Vol]12 U/VLdb35-43Qlk [facility] Physician GroupComment on above:Performed By: #### C4, CH50, C3 #### [facility] , #### CBC, UA, CMP, ESR #### [facility] [address] [place] [address] USABilirubin [Mass/Vol]0.3 mg/dLNormal0.3-1.0The [facility] Hospital Physician GroupComment on above:Performed By: #### C4, CH50, C3 #### [facility] , #### CBC, UA, CMP, ESR #### [facility] [address] [place] [address] USACalcium [Mass/Vol]9.2 mg/dLNormal8.6-10.3The [facility] Hospital Physician GroupComment on above:Performed By: #### C4, CH50, C3 #### [facility] , #### CBC, UA, CMP, ESR #### [facility] [address] [place] [address] USAChloride [Moles/Vol]102 mmol/ACtusrp41-024Woe [facility] Physician GroupComment on above:Performed By: #### C4, CH50, C3 #### [facility] , #### CBC, UA, CMP, ESR #### [place] [address] USACO2 [Moles/Vol]29.7 mmol/NYijgky17.0-31.0The [facility] Hospital Physician GroupComment on above:Performed By: #### C4, CH50, C3 #### [facility] , #### CBC, UA, CMP, ESR #### [place] [address] USACreatinine [Mass/Vol]1.05 mg/dLNormal0.60-1.20The [facility] Hospital Physician GroupComment on above:Performed By: #### C4, CH50, C3 #### [facility] , #### CBC, UA, CMP, ESR #### [place] [address] USAEstimated GFR59.703 mL/MinNoTrinity Health System West Campuse [facility] Physician [facility] Medical CenterComment on above:Performed By: #### C4, CH50, C3 #### [facility] , #### CBC, UA, CMP, ESR #### [place] [address] USAGlobulin (S) [Mass/Vol]2.7 g/dLNoUNC Health Blue Ridge Physician GroupComment on above:Performed By: #### C4, CH50, C3 #### [facility] , #### CBC, UA, CMP, ESR #### [place] [address] USAGlucose [Mass/Vol]154 mg/gNTphu24-135Ueu [facility] Physician GroupComment on above:Result Comment: Random Glucose Reference Range is dependent on time and content of last meal. Glucose of more than 200 mg/dL in a nonstressed, ambulatory subject supports the diagnosis of Diabetes Mellitus. ADA recommended reference rangePerformed By: #### C4, CH50, C3 #### [facility] , #### CBC, UA, CMP, ESR #### [place] [address] USAPotassium [Moles/Vol]4.2 mmol/LNormal3.5-5.1The [facility] Hospital Physician GroupComment on above:Performed By: #### C4, CH50, C3 #### [facility] , #### CBC, UA, CMP, ESR #### [place] [address] USAProtein [Mass/Vol]6.7 g/dLNormal6.4-8.9The [facility] Hospital Physician GroupComment on above:Performed By: #### C4, CH50, C3 #### [facility] , #### CBC, UA, CMP, ESR #### [place] [address] USASodium [Moles/Vol]139 mmol/SMiikkp222-174Omc [facility] Physician GroupComment on above:Performed By: #### C4, CH50, C3 #### [facility] , #### CBC, UA, CMP, ESR #### [place] [address] USAUrea nitrogen [Mass/Vol]20 mg/dLNormal7-25The [facility] Physician GroupComment on above:Performed By: #### C4, CH50, C3 #### [facility] , #### CBC, UA, CMP, ESR #### [place] [address] USAErythrocyte Sedimentation Rateon 00-36-3855BKT (Bld) [Velocity]20 mm/hNormal0-29The [facility] Physician GroupComment on above:Result Comment: PERFORMED BY: [place] [address] PATHOLOGIST JALOUSIE INSTALLER BELEM MCCALL M.D.Performed By: #### C4, CH50, C3 #### [facility] , #### CBC, UA, CMP, ESR #### [place] [address] USAUrinalysison 14-79-1802Xijcloaxpg (U)ClearNormalClearBayfront Health St. Petersburg Physician GroupComment on above:Order Comment: Name Collection Type:: Clean-Voided MidstreamPerformed By: #### C4, CH50, C3 #### [facility] , #### CBC, UA, CMP, ESR #### [place] [address] USABilirubin,UrineNegativeNormalNegativeBayfront Health St. Petersburg Physician GroupComment on above:Order Comment: Name Collection Type:: Clean- Voided MidstreamPerformed By: #### C4, CH50, C3 #### [facility] , #### CBC, UA, CMP, ESR #### [place] [address] USAColor (U)Light-YellowNormalYellowBayfront Health St. Petersburg Physician GroupComment on above:Order Comment: Name Collection Type:: Clean-Voided MidstreamPerformed By: #### C4, CH50, C3 #### [facility] , #### CBC, UA, CMP, ESR #### [place] [address] USAGlucose Ql (U)NormalNormalNormalThe [facility] Hospital Physician GroupComment on above:Order Comment: Name Collection Type:: Clean-Voided MidstreamPerformed By: #### C4, CH50, C3 #### [facility] , #### CBC, UA, CMP, ESR #### [place] [address] USAKetones Ql (U)NegativeNormalNegativeBayfront Health St. Petersburg Physician GroupComment on above:Order Comment: Name Collection Type:: Clean- Voided MidstreamPerformed By: #### C4, CH50, C3 #### [facility] , #### CBC, UA, CMP, ESR #### [place] [address] USALeukocyte esterase Test strip Ql (U)NegativeNormalNegative The [facility] Hospital Physician GroupComment on above:Order Comment: Name Collection Type:: Clean-Voided MidstreamPerformed By: #### C4, CH50, C3 #### [facility] , #### CBC, UA, CMP, ESR #### [place] [address] USANitrite,UrineNegativeNormalNegativeThe [facility] Hospital Physician GroupComment on above:Order Comment: Name Collection Type:: Clean-Voided MidstreamPerformed By: #### C4, CH50, C3 #### [facility] , #### CBC, UA, CMP, ESR #### [place] [address] USAOccult Blood,UrineNegativeNormalNegativeThe [facility] Hospital Physician GroupComment on above:Order Comment: Name Collection Type:: Clean- Voided MidstreamResult Comment: PERFORMED BY: [place] [address] PATHOLOGIST JALOUSIE INSTALLER BELEM MCCALL M.D.Performed By: #### C4, CH50, C3 #### [facility] , #### CBC, UA, CMP, ESR #### [place] [address] USApH (U)5.5 [pH]Normal5.0-9.0The [facility] Comment on above:Order Comment: Name Collection Type:: Clean-Voided Midstream Performed By: #### C4, CH50, C3 #### [facility] , #### CBC, UA, CMP, ESR #### [place] [address] USAProtein,UrineNegativeNormalNegativeThe [facility] Hospital Physician GroupComment on above:Order Comment: Name Collection Type:: Clean-Voided MidstreamPerformed By: #### C4, CH50, C3 #### [facility] , #### CBC, UA, CMP, ESR #### [place] [address] [place]ASpecificy [place],Urine1.465Hurupu6.001-1.030The [facility] Hospital Physician GroupComment on above:Order Comment: Name Collection Type:: Clean- Voided MidstreamPerformed By: #### C4, CH50, C3 #### [facility] , #### CBC, UA, CMP, ESR #### [facility] [address] [place] [address] USAUrobilinogen,UrineNormalNormalNormalThe [facility] Physician GroupComment on above:Order Comment: Name Collection Type:: Clean- Voided MidstreamPerformed By: #### C4, CH50, C3 #### [facility] , #### CBC, UA, CMP, ESR #### [facility] [address] [place] [address] USACBC AND AUTO DIFFon 40-22-3490UVYVNGBD BASOPHIL0.1 X10E9/L Normal0.0-0.2PCleveland Clinic Mentor HospitalComment on above:Performed By: #### ELDER ROSS, , 2132-05 #### [facility] ([id number]) [address], [address] [place], [place] [address]PUFKYXSA NEUTROPHIL7.2 X10E9/LHigh1.5-6.6ProGrand Lake Joint Township District Memorial HospitalComment on above:Performed By: #### CODY CMP, , 2132-05 #### [facility] ([id number]) [address] [place], [place] [address]Bwrvokomz/100 WBC (Bld)0.9 %NormalProCincinnati Shriners Hospital Hospital Comment on above:Performed By: #### CBCELDER Ely, , 2132-05 #### [facility] ([id number]) [address], [address] [place], [place] [address]Gfggizwvuls (Bld) [#/Vol]0.0 10*3/uLNormal0.0-0.4ProMedica [facility] HospitalComment on above:Performed By: #### CBCELDER Ely, , 2132-05 #### [facility] ([id number]) [address], [address] [place], [place] [address]Fxtrywnuifj/100 WBC (Bld)0.4 %NormalProCincinnati Shriners Hospital Hospital Comment on above:Performed By: #### CODY [facility], , 2132-05 #### [facility] ([id number]) [address], [address] [place], [place] [address]Xxsplqmbhxj distribution width (RBC) [Ratio]15.2 %High11.5-15.0 [facility] HospitalComment on above:Performed By: #### ELDER ROSS, , 2132-05 #### [facility] ([id number]) [address], [address] [place], [place] [address]Boawjazmzg (Bld) [Volume fraction]41.9 %Uflkpb43-40RzaOnqhxg [place] HospitalComment on above:Performed By: #### ELDER ROSS, , 2132-05 #### [facility] ([id number]) [address], [address] [place], [place] [address]Zhzptcratz (Bld) [Mass/Vol]14.3 g/gHKjfcot62.7-15.5ProMedica [facility] HospitalComment on above:Performed By: #### CBCELDER Ely, , 2132-05 #### [facility] ([id number]) [address], [address] [place], [place] [address]Kjxqxxmmuvl (Bld) [#/Vol]1.7 10*3/uLNormal1.0-3.5ProMedica [facility] HospitalComment on above:Performed By: #### CBCSolis CMP, , 2132-05 #### [facility] ([id number]) [address], [address] [place], [place] [address]Mklohtoujaf/100 WBC (Bld)18.0 %NormalProBarnesville Hospitalca [facility] Comment on above:Performed By: #### CBCSolis, CMP, , 2132-05 #### [facility] ([id number]) [address], [address] [place], [place] [address]NWQ (RBC) [Entitic mass]31.7 mwMnimqg03-43BreOadeae [facility] HospitalComment on above:Performed By: #### CODY CMP, , 2132-05 #### [facility] ([id number]) [address], [address] [place], [place] [address]FWIU (RBC) [Mass/Vol]34.2 g/pNLcbkcp10-24ZvcPdnmzi [facility] HospitalComment on above:Performed By: #### CBCSolis CMP, , 2132-05 #### [facility] ([id number]) [address], [address] [place], [place] [address]WKA (RBC) [Entitic vol]93 dEUjitrk49-676VpnHcdhsr [facility] HospitalComment on above:Performed By: #### CBCA, CMP, , 2132-05 #### [facility] ([id number]) [address], [address] [place], [place] [address]Fzhfgydet (Bld) [#/Vol]0.6 10*3/uLNormal0-0.9ProMedica [facility] HospitalComment on above:Performed By: #### CBCA, CMP, , 2132-05 #### [facility] ([id number]) [address], [address] [place], [place] [address]Xjghqiaqi/100 WBC (Bld)6.1 %NormalUpper Valley Medical Center Comment on above:Performed By: #### CBCA, CMP, , 2132-05 #### [facility] ([id number]) [address], [address] [place], [place] [address]Hwczhcrzjbq/100 WBC (Bld)74.6 %NormalUpper Valley Medical Center Comment on above:Performed By: #### CBCA, CMP, , 2132-05 #### [facility] ([id number]) [address], [address] [place], [place] [address]Yvhgckzv mean volume (Bld) [Entitic vol]9.1 fLNormal7-12 Pro[facility]ica [facility] Community HospitalComment on above:Performed By: #### CBCA, CMP, , 2132-05 #### [facility] ([id number]) [address], [address] [place], [place] [address]Waljvamkb (Bld) [#/Vol]265 10*3/mNYeephy033-258UdbWovsup [facility] HospitalComment on above:Performed By: #### CBCA, CMP, , 2132-05 #### [facility] ([id number]) [address], [address] [place], [place] [address]QTZ COUNT4.51 X10E12/LNormal3.80-5.20[facility] Comment on above:Performed By: #### CBCA, CMP, , 2132-05 #### [facility] ([id number]) [address], [address] [place], [place] [address]BTZ (Bld) [#/Vol]9.6 10*3/uLNormal4.0-11.0ProBarnesville Hospitalca [facility] HospitalComment on above:Performed By: #### CBCA, CMP, , 2132-05 #### [facility] ([id number]) [address], [address] [place], [place] [address]GJVUNHZOQVDXM METABOLIC PANELon 98-83-8487Dxgypss [Mass/Vol]4.4 g/dLNormal3.2-5.3ProMedica Carrillo HospitalComment on above:Performed By: #### ELDER ROSS, , 2132-05 #### [facility] ([id number]) [address], [address] [place], [place] [address]UQI [Catalytic activity/Vol]80 U/RTrhpds43-165LkpViasbu Carrillo HospitalComment on above:Performed By: #### ELDER ROSS, , 2132-05 #### [facility] ([id number]) [address], [address] [place], [place] [address]WMV [Catalytic activity/Vol]21 U/LNormal0-31ProMedica Carrillo HospitalComment on above:Performed By: #### ELDER ROSS, , 2132-05 #### [facility] ([id number]) [address], [address] [place], [place] [address]Rwroh gap [Moles/Vol]11 mmol/LNormal5-15ProMedica Carrillo HospitalComment on above:Performed By: #### ELDER ROSS, , 2132-05 #### [facility] ([id number]) [address], [address] [place], [place] [address]LWA [Catalytic activity/Vol]18 U/LNormal0-41ProMedica Carrillo HospitalComment on above:Performed By: #### ELDER ROSS, , 2132-05 #### [facility] ([id number]) [address], [address] [place], [place] [address]Gxvbmprqw [Mass/Vol]0.3 mg/dLNormal0.3-1.2PWright-Patterson Medical Center HospitalComment on above:Performed By: #### ELDER ROSS, , 2132-05 #### [facility] ([id number]) [address], [address] [place], [place] [address]Ggkiipp [Mass/Vol]9.6 mg/dLNormal8.5-10.5PWright-Patterson Medical Center HospitalComment on above:Performed By: #### ELDER ROSS, , 2132-05 #### [facility] ([id number]) [address], [address] [place], [place] [address]Nlbzlmlh [Moles/Vol]101 mmol/UXagksu96-942RffEskfnw [place] HospitalComment on above:Performed By: #### ELDER ROSS, , 2132-05 #### [facility] ([id number]) [address], [address] [place], [place] [address]EN1 [Moles/Vol]28 mmol/QNxlguw30-01QzvJowdch [facility] Comment on above:Performed By: #### ELDER ROSS, , 2132-05 #### [facility] ([id number]) [address], [address] [place], [place] [address]Fqonwalhar [Mass/Vol]0.96 mg/dLNormal0.40-1.00ProGrand Lake Joint Township District Memorial HospitalComment on above:Result Comment: METHOD TRACEABLE TO IDMS STANDARD Performed By: #### ELDER ROSS, , 2132-05 #### [facility] ([id number]) [address], [address] [place], [place] [address]EUL/1.73 sq M.predicted among non-blacks MDRD (S/P/Bld) [Vol rate/Area]66 mL/min/{1.73_m2}Normal>59ProGrand Lake Joint Township District Memorial HospitalComment on above: Result Comment: Reported eGFR is based on the CKD-EPI 2021 equation that does not use a race coefficient.Performed By: #### ELDER ROSS, , 2132-05 #### [facility] ([id number]) [address], [address] [place], [place] [address]Ilmudfb [Mass/Vol]130 mg/hHNnje10-95BpaLrgeuwGrand Lake Joint Township District Memorial Hospital Comment on above:Performed By: #### ELDER ROSS, , 2132-05 #### [facility] ([id number]) [address], [address] [place], [place] [address]Pagpdrkdc [Moles/Vol]4.0 mmol/LNormal3.5-5.0ProGrand Lake Joint Township District Memorial HospitalComment on above:Performed By: #### ELDER ROSS, , 2132-05 #### [facility] ([id number]) [address], [address] [place], [place] [address]Afknuyw [Mass/Vol]7.4 g/dLNormal6.0-8.0ProGrand [facility] Joint [facility] District Memorial Hospital Comment on above:Performed By: #### ELDER ROSS, , 2132-05 #### [facility] ([id number]) [address], [address] [place], [place] [address]Koofcu [Moles/Vol]140 mmol/FZsjgrw486-891EolRuhkuc [place] HospitalComment on above:Performed By: #### ELDER ROSS, , 2132-05 #### [facility] ([id number]) [address], [address] [place], [place] [address]Isjp nitrogen [Mass/Vol]23 mg/dLNormal5-27ProCincinnati [facility]rin[facility] Hospital HospitalComment on above:Performed By: #### ELDER ROSS, , 2132-05 #### [facility] ([id number]) [address], [address] [place], [place] [address]Fhgdp 1996 panelon 25-76-2010Mtqvlcpkfks [Mass/Vol]213 mg/dLHigh 150-200ProCincinnati Shriners Hospital HospitalComment on above:Performed By: ###Chandrakant ROSS CMP, , 2132-05 #### [facility] ([id number]) [address], [address] [place], [place] [address]Soeputrnoom in HDL [Mass/Vol]58 mg/dLNormal>39ProCincinnati Shriners Hospital HospitalComment on above:Result Comment: HDL <40 mg/dL - High Risk HDL > or = 40mg/dL- Desirable HDL >60 mg/dL - Negative Risk Performed By: ###Chandrakant ROSS CMP, , 2132-05 #### [facility] ([id number]) [address], [address] [place], [place] [address]Tpvqrifpxbn in LDL [Mass/Vol]90 mg/dLNormal<130ProC[facility] Hospital HospitalComment on above:Result Comment: LDL <100 mg/dL - Desirable LDL >160 mg/dL - High Risk Performed By: ###Chandrakant ROSS CMP, , 2132-05 #### [facility] ([id number]) [address], [address] [place], [place] [address]Tqccntytinz in VLDL [Mass/Vol]65 mg/dLHigh0-30ProC[facility] Hospital HospitalComment on above:Performed By: ###Chandrakant ROSS CMP, , 2132-05 #### [facility] ([id number]) [address], [address] [place], [place] [address]LMKBWIAQZCQ:HDL3.3Ckfngo3.0-5.0ProGrand Lake Joint Township District Memorial HospitalComment on above:Performed By: #### CODY, ELDER, [address]-4, 2132-05 #### [facility] ([id number]) [address], [address] [place], [place] [address]Luzdzuiduvre [Mass/Vol]326 mg/vEHjlk76-075UoqManykw [facility] Community HospitalComment on above:Performed By: #### ELDER ROSS, , 2132-05 #### [facility] ([id number]) [address], [address] [place], [place] [address]QCATOII B12on 40-37-8888Fbebwrevo (Vitamin B12) [Mass/Vol]pg/mL Sxuc456-227QdwLpqmuu [facility] Community HospitalComment on above:Performed By: #### ELDER ROSS, , 2132-05 #### [facility] ([id number]) [address], [address] [place], [place] [address]QCZ,APTIMA HPV,AGE GDLNon 33-14-2733LKA GDLN ACOG TESTINGNote. [facility] HealthcareComment on above:TESTS RESULT FLAG UNITS REF RANGE LAB Clinician Provided Cytology Information Source.............Cervix;Endocervix No. of containers..01 ThinPrep Vial Age Algo ACOG Trudy... FLAG LEGEND: L-Low Normal,H-High Normal,LL-Alert Low,HH-Alert High <-Panic Low,>-Panic High,A-Abnormal,AA-Critical Abnormal Performed at: 01 =[address] [address] Fatmata Marks MD, HPV APTIMAPositiveAbnormalNegativeNOMS HealthcareComment on above:This nucleic acid amplification test detects fourteen high- risk HPV types (16,18,31,33,35,39,45,51,52,56,58,59,66,68) without differentiation. HPV GENOTYPE 16NegativeNegativeNOMS HealthcareHPV GENOTYPE 18,45NegativeNegative NOMS HealthcareComment on above:Performed at: =[address] [id number] Distribution Field Engineer: Fatmata Marks MD, Phone: [phone] Performed at: [address] [id number] Distribution Field Engineer: Fatmata Marks MD, Phone: [phone] IGP, APTIMA HPV, RFX 16/18,45Note.NOMS HealthcareComment on above:TESTS RESULT FLAG UNITS REF RANGE LAB DIAGNOSIS: 02 NEGATIVE FOR INTRAEPITHELIAL LESION OR MALIGNANCY. CELLULAR CHANGES ASSOCIATED WITH ATROPHY AND INFLAMMATION ARE PRESENT. Specimen adequacy: 02 Satisfactory for evaluation. Endocervical component may not be distinguished in cases of atrophy. Areas of partially obscuring inflammatory exudate are present. Performed by: 02 Iliana Rivers, Assembler Adjuster ([facility]) . 02 Note: Note 02 The Pap [...] High,A-Abnormal,AA-Critical Abnormal Performed at: 02 [address] [facility] [address] [address] Fatmata Marks MD, Interpretation and review of laboratory resultsAbnormalNOSaint Luke's East Hospital BRUSH-SPATULA CERVIX ENDOCERVIX CLINISYNCNODE HealthcareCoding Summaryon 60-10-8717Drmrqd SummaryMOUNTAIN VIEW HOSPITALBase 64 CpezzhriXYd1pXh+PGhlYWQ+TU2MDWHqK73cvSVswQ8iT4FSKBiUGqqpCTJWAKiTXlBgonVxGO9qcUEe ZXJu [file] LWN (more content not included)...[facility] Medical CenterConsent Formson 66-93-2066Lpzxprw [id number]#1.00OTGTIFFNormal [facility] HospitalMAGR Intraoperative Recordon [id number] Intraoperative RecordMAGR Intra-Op Record Summary Primary Physician: LINA SCHWAB MD Finalized Date/Time: 06/19/24 13:11:09 Pt. Name: NOEMI BRAND /Sex: 1960 FEMALE Med Rec #: [id number] Physician: LINA SCHWAB MD Financial #: [id number] Pt. Type: D Room/Bed: / Admit/Disch: 06/16/24 [...] RN, Sara L RT (R) Role Performed Environmental Analyst Environmental Analyst Critical Care Nurse Practitioner Time In 06/16/24 07:59:00 06/16/24 07:59:00 06/16/24 07:59:00 Time Out 06/16/24 08:22:00 06/16/24 08:22:00 06/16/24 08:22:00 Procedure Radiofrequency Radiofrequency Radiofrequency Ablation(Bilateral) Ablation(Bilateral) Ablation(Bilateral) Last Modified By: Ev Bailey RN, Diane RN Kokinda, Diane RN 06/16/24 08:22:09 06/16/24 08:22:09 06/16/24 08:22:09 Entry 4 Entry 5 Entry 6 Case Attendee Iveth Anderson RT (R) Love Winkler THOMAS F MD CT WINDOWS ADMINISTRATOR Role Performed Critical Care Nurse Practitioner Scrub Personnel Surgeon - Primary Time In [...] Concerns n/a Addressed Time Out Troy RN, [place], Time Out Time 06/16/24 08:01:00 Participants Ev [...] Safety Strap Outcome Me (more content not included)...[facility] [place] [address] Patient Discharge Instructions Name: NOEMI BRAND : 1960 Patient Address: [address] [place] [address] Primary Care Provider: Name: Provider, None Phone: After you are discharged if you find you have any questions, please, call [phone] ext [phone] to speak to a nurse. Discharge Diagnosis: Prescription Information: If you have been given a prescription for narcotics, seek immediate medical attention if you have any difficulty breathing or any sudden status changes such as confusion andsleepiness. If you or anyone you know is experiencing suicidal thoughts, mental health, alcohol and/or drug addiction problems; contact the [facility] 05/04 Crisis Hotline -Text 1GDEV [place] 728772. If you received any narcotics, sedation, or [...] business decisions or sign any legal documents [facility] would like to thank you for allowing us to assist you with your healthcare needs.The following includes patient education materials and information [...] list that you can keep with you. acetaminophen-butalbital (acetaminophen-butalbital 300 mg-50 mg oral capsule) [...] units) oral tablet, disintegrating) (more content not included)...[facility] Preoperative Recordon [id number] Preoperative RecordMA Pre-Op Record Summary Primary Physician: LINA SCHWAB MD Finalized Date/Time: 06/16/24 08:28:57 Pt. Name: NOEMI BRAND/Sex: 1960 FEMALE Med Rec #: [id number] Physician: LINA SCHWAB MD Financial #: [id number] Pt. Type: D Room/Bed: / Admit/Disch: 06/16/24 [...] ready for surgery. The patient remains free froms/s of injury. Patient/family express understanding of plan of care and participate in decisions affectinghis or her perioperrative plan of care. Allergies documented appropriately. Patient identifiers and consent correct. General Comments: Pt arrives to psw ambulatory. PT denies cp, sob, cough or flu like symptoms. Pt denies pacemaker/defibillator or sleep apnea. Finalized By: Carly Mccall RN Document Signatures Signed By: Carly Mccall RN 06/16/24 08:28[facility] CenterPatient Handouton 06-16-2024 Patient HandoutFisher-Titus Medical CenterAlanine aminotransferase [Enzymatic activity/volume] in Serum or PlasmaOrdered By: Carlotta Stanley on 19-54-9293KSJ [Catalytic activity/Vol]16 U/L7-52[facility]-FairhillAlbumin [Mass/volume] in Serum or Plasma by Bromocresol green (BCG) dye binding metho Ordered By: Carlotta Stanley on 37-37-6652Qqrskux BCG dye [Mass/Vol]4.0 g/dL 3.5-5.7FOhioHealth Mansfield HospitalAlkaline phosphatase [Enzymatic activity/volume] in Serum or PlasmaOrdered By: Carlotta Stanley on 14-07-2519UZJ [Catalytic activity/Vol]72 U/H73-291XaxupvwevSelect Medical Specialty Hospital - Cleveland-FairhillAspartate aminotransferase [Enzymatic activity/volume] in Serum or PlasmaOrdered By: Carlotta Stanley on 08-18-4030WGE [Catalytic activity/Vol]12 U/T22-33KycklabqbSelect Medical Specialty Hospital - Cleveland-FairhillAutomated epithelial cells count in urine sediment (number/area) Ordered By: Carlotta Stanley on 55-76-1108Yvanokvzbg cells Auto (Urine sed) [#/Area]0-1 [HPF]0-2FOhioHealth Mansfield HospitalBacteria [Presence] in Urine by AutomatedOrdered By: Carlotta Stanley on 49-26-3581Kcfqnmuu Auto Ql (U) None seen [HPF]None SeenSelect Medical Specialty Hospital - Cleveland-FairhillBasophils Auto (Bld) [#/Vol]Ordered By: Carlotta Stanley on 58-98-8665Iwqdkzhmn (Bld) [#/Vol]0.1 10*3/uL0.0-0.2FOhioHealth Mansfield HospitalBasophils/100 WBC Auto (Bld) Ordered By: Carlotta Stanley on 88-97-7249Wrelqscug/100 WBC (Bld)0.8 %.[facility]-FairhillBilirubin Test strip Ql (U)Ordered By: Carlotta Stnaley on 89-43-4052Vhvpmczmk Ql (U)NegativeNegativeSelect Medical Specialty Hospital - [facility]hill Bilirubin.total [Mass/volume] in Serum or PlasmaOrdered By: Carlotta Stanley on 59-65-0209Vorbrvoki [Mass/Vol]0.3 mg/dL0.3-1.0[facility] Calcium [Mass/volume] in Serum or PlasmaOrdered By: Carlotta Stanley on 02-25-2024 Calcium [Mass/Vol]9.1 mg/dL8.6-10.3FOhioHealth Mansfield HospitalCarbon dioxide, total [Moles/volume] in Serum or PlasmaOrdered By: Carlotta Stanley on 42-60-7529RD9 [Moles/Vol]30.9 mmol/L21.0-31.0[facility] Chloride [Moles/volume] in Serum or PlasmaOrdered By: Carlotta Stanley on 24-80-4535Kybfizny [Moles/Vol]103 mmol/V10-424DhjdlqltmSelect Medical Specialty Hospital [facility]hill Color Auto (U)Ordered By: Carlotta Stanley on 45-91-1648Shhfc (U)YellowYellow [facility]-FairhillCreatinine [Mass/volume] in Serum or Plasma Ordered By: Carlotta Stanley on 08-60-6581Bfptulipfe [Mass/Vol]0.91 mg/dL0.60-1.20 [facility]-FairhillEosinophils Auto (Bld) [#/Vol]Ordered By: Carlotta Stanley on 35-72-0461Oclsaervvad (Bld) [#/Vol]0.1 10*3/uL0.0-0.45[facility]FairhillEosinophils/100 WBC Auto (Bld)Ordered By: Carlotta Stanley on 90-25-5183Khcmpnphuxi/100 WBC (Bld)0.9 %.[facility] Erythrocyte distribution width Auto (RBC) [Ratio]Ordered By: Carlotta Stanley on 16-57-4754Ejbrxazeans distribution width (RBC) [Ratio]15.0 %11.9-15.3FOhioHealth Mansfield HospitalErythrocyte sedimentation rate by Photometric method Ordered By: Carlotta Stanley on 52-59-5155MVF Photometric method (Bld) [Velocity] 21 mm/hr0-29[facility]FairhillErythrocytes [#/area] in Urine sediment by Automated countOrdered By: Carlotta Stanley on 15-68-3320PHB Auto (Urine sed) [#/Area]0-1 [HPF]0-4FOhioHealth Mansfield HospitalGlobulin Calc (S) [Mass/Vol]Ordered By: Carlotta Stanley on 37-51-3948Imsueldq (S) [Mass/Vol]2.5 g/dLSelect Medical Specialty Hospital - Cleveland-FairhillGlucose [Mass/volume] in Serum or Plasma Ordered By: Carlotta Stanley on 75-76-1345Puuqpki [Mass/Vol]119 mg/lQ14-515 [facility]-FairhillComment on above:ADA recommended reference rangeRandom Glucose Reference Range is dependent on time and content of last meal. Glucose of more than 200 mg/dL in a nonstressed, ambulatory subject supports the diagnosisof Diabetes Mellitus.Hematocrit Auto (Bld) [Volume fraction]Ordered By: Carlotta Stanley on 01-54-3581Ldraxbhalw (Bld) [Volume fraction]38.3 %34.0-46.4FOhioHealth Mansfield HospitalHemoglobin [Mass/volume] in BloodOrdered By: Carlotta Stanley on 43-46-9625Icpaicsxvl (Bld) [Mass/Vol]12.6 g/dL11.8-15.4FOhioHealth Mansfield HospitalKetones Auto test strip (U) [Mass/Vol]Ordered By: Carlotta Stanley on 18-90-1867Urbkldu (U) [Mass/Vol]NegativeNegativeSelect Medical Specialty Hospital - Cleveland-FairhillLaboratory - UrinalysisOrdered By: Carlotta Stanley on 91-81-7134Uyfnxpp casts LM Ql (Urine sed)None seen [LPF]0-8[facility]-FairhillLeukocytes [#/area] in Urine sediment by Automated countOrdered By: Carlotta Stanley on 57-30-5357EIU Auto (Urine sed) [#/Area]0-1 [HPF]0-4FOhioHealth Mansfield HospitalLeukocytes [#/volume] corrected for nucleated erythrocytes in Blood by Automated coun Ordered By: Carlotta Stanley on 59-24-8537POY corrected for nucl RBC Auto (Bld) [#/Vol]6.8 10*3/uL3.8-11.6FOhioHealth Mansfield HospitalLymphocytes Auto (Bld) [#/Vol]Ordered By: Carlotta Stanley on 75-92-2652Xmnhysmrxiq (Bld) [#/Vol] 1.7 10*3/uL1.00-4.8[facility]-FairhillLymphocytes/100 WBC Auto (Bld)Ordered By: Carlotta Stanley on 43-34-4458Krysimdpsrv/100 WBC (Bld)25.2 %. [facility]FairhillMCH Auto (RBC) [Entitic mass]Ordered By: Carlotta Stanley on 04-95-9046FQW (RBC) [Entitic mass]30.5 pg24.7-34.3FOhioHealth Mansfield HospitalMCHC Auto (RBC) [Mass/Vol]Ordered By: Carlotta Stanley on 47-42-9991EXEE (RBC) [Mass/Vol]33.0 g/dL32.0-35.0[facility]FairhillMCV Auto (RBC) [Entitic vol]Ordered By: Carlotta Stanley on 77-51-7831DHA (RBC) [Entitic vol]92.5 wS73-032VlsnknfteSelect Medical Specialty Hospital - Cleveland-FairhillMonocytes Auto (Bld) [#/Vol]Ordered By: Carlotta Stanley on 22-94-0782Gwqzbgamm (Bld) [#/Vol]0.7 10*3/uL0.0-0.8[facility]FairhillMonocytes/100 WBC Auto (Bld) Ordered By: Carlotta Stanley on 75-69-9389Ugcncxvbx/100 WBC (Bld)10.0 %.[facility]-FairhillNeutrophils Auto (Bld) [#/Vol]Ordered By: Carlotta Stanley on 60-30-8634Wihrhlljbsl (Bld) [#/Vol]4.3 10*3/uL1.8-7.7FOhioHealth Mansfield HospitalNeutrophils/100 WBC Auto (Bld)Ordered By: Carlotta Stanley on 80-71-3634Qvawbufpiod/100 WBC (Bld)63.1 %.[facility] Nitrite Test strip Ql (U)Ordered By: Carlotta Stanley on 28-31-2596Pwftmgm Ql (U) NegativeNegativeSelect Medical Specialty Hospital - Cleveland-FairhillNo Panel InformationOrdered By: Carlotta Stanley on 49-78-7401Zlskpyfzj GFR (CKD-EPI)> 60.0 mL/MinSelect Medical Specialty Hospital - Cleveland-FairhillPharmacy Creatinine Clearance (ChemN/White HospitalNucleated erythrocytes [Presence] in Blood by Automated count Ordered By: Carlotta Stanley on 15-37-6422Fxbkfvxdz RBC Auto Ql (Bld)0.1 /100{WBC} 0-0.5FOhioHealth Mansfield HospitalPlatelet mean volume Auto (Bld) [Entitic vol]Ordered By: Carlotta Stanley on 96-06-1397Bxrdzmik mean volume (Bld) [Entitic vol]8.1 fL6.3-10.7FOhioHealth Mansfield HospitalPlatelets Auto (Bld) [#/Vol] Ordered By: Carlotta Stanley on 24-78-1732Dudfnaeht (Bld) [#/Vol]297 10*3/uL 150-450[facility]FairhillPotassium [Moles/volume] in Serum or PlasmaOrdered By: Carlotta Stanley on 12-46-8915Cokgmgsxm [Moles/Vol]4.1 mmol/L 3.5-5.1FOhioHealth Mansfield HospitalProtein Auto test strip (U) [Mass/Vol] Ordered By: Carlotta Stanley on 45-63-2305Dvyxxbd (U) [Mass/Vol]NegativeNegative [facility]hillProtein [Mass/volume] in Serum or PlasmaOrdered By: Carlotta Stanley on 72-55-9718Qnvqvkq [Mass/Vol]6.5 g/dL6.4-8.9[facility]FairhillRBC Auto (Bld) [#/Vol]Ordered By: Carlotta Stanley on 81-10-5807OUS (Bld) [#/Vol]4.14 10*6/uL3.60-5.00Genesis Hospitalerum or plasma albumin/globulin mass ratioOrdered By: Carlotta Stanley on 08-60-8522Zlprpdk/Globulin [Mass ratio]1.6 {ratio}Genesis Hospitalerum or plasma anion gap determinationOrdered By: Carlotta Stanley on 27-62-4688Tzyyf gap [Moles/Vol]9.2 mmol/L6.0-15.0Genesis Hospitalodium [Moles/volume] in Serum or PlasmaOrdered By: Carlotta Stanley on 54-92-0733Gknfln [Moles/Vol]139 mmol/K724-358XnbfyublrSelect Medical Specialty Hospital - [facility]hill Specific gravity Auto test strip (U) [Rel density]Ordered By: Carlotta Stanley on 03-42-0902Nnumvrjg gravity (U) [Rel density]1.0151.001-1.030[facility]FairhillUrea nitrogen [Mass/volume] in Serum or PlasmaOrdered By: Carlotta Stanley on 33-50-5188Qseu nitrogen [Mass/Vol]20 mg/dL7-25[facility]FairhillUrine clarity by refractometry automatedOrdered By: Carlotta Stanley on 37-45-3270Lhfbxaq Refractometry automated (U)ClearClearFOhioHealth Mansfield HospitalUrine glucose measurement by automated test strip (mass/volume) Ordered By: Carlotta Stanley on 37-32-5074Khkyoiu Auto test strip (U) [Mass/Vol] Normal mg/dLNormOhioHealth Doctors HospitalUrine hemoglobin detection by automated test stripOrdered By: Carlotta Stanley on 09-40-2031Khiprwuajg Auto test strip Ql (U)NegativeNegSt. John of God HospitalUrine leukocyte esterase detection by automated test stripOrdered By: Carlotta Stanley on 26-34-5724Alguyeosc esterase Auto test strip Ql (U)NegativeNegSt. John of God HospitalUrobilinogen Auto test strip (U) [Mass/Vol]Ordered By: Carlotta Stanley on 87-58-9153Fulltzefdcdw (U) [Mass/Vol]Normal mg/dLTrihealth Bethesda North HospitalWBC Auto (Bld) [#/Vol]Ordered By: Carlotta Stanley on 36-14-5774KXN (Bld) [#/Vol]6.8 10*3/uL3.8-11.6FOhioHealth Mansfield HospitalpH Auto test strip (U)Ordered By: Carlotta Stanley on 87-23-3668yR (U)5.5 [pH]5.0-9.0[facility]FairhillCBC AND AUTO DIFFon 02-50-6926ZZJGFDHV BASOPHIL0.0 X10E9/LNormal0.0-0.2PC[facility] Comment on above:Performed By: #### CBCA, CMP, TSHR, 2131-9 #### [facility] ([id number]) [address] [place], [place] [address]KMPUKEUJ NEUTROPHIL6.1 X10E9/LNormal1.5-6.6ProGrand Lake Joint Township District Memorial HospitalComment on above:Performed By: #### CBCA, CMP, TSHR, 2132-05 #### [facility] ([id number]) [address], [address] [place], [place] [address]Gcpaiffvr/100 WBC (Bld)0.5 %NormalUpper Valley Medical Center Comment on above:Performed By: #### CBCA, CMP, TSHR, 2132-05 #### [facility] ([id number]) [address], [address] [place], [place] [address]Wavahwlfixw (Bld) [#/Vol]0.1 10*3/uLNormal0.0-0.4ProGrand Lake Joint Township District Memorial HospitalComment on above:Performed By: #### CBCA, CMP, TSHR, 2132-05 #### [facility] ([id number]) [address], [address] [place], [place] [address]Eubwwaezczc/100 WBC (Bld)0.6 %NormalUpper Valley Medical Center Comment on above:Performed By: #### CBCA, CMP, TSHR, 2132-05 #### [facility] ([id number]) [address], [address] [place], [place] [address]Esbrcclfacp distribution width (RBC) [Ratio]14.6 %Normal 11.5-15.0ProCincinnati Shriners Hospital HospitalComment on above:Performed By: #### CBCA, CMP, TSHR, 2132-05 #### [facility] ([id number]) [address], [address] [place], [place] [address]Panqgyxuda (Bld) [Volume fraction]41.7 %Rnfsmk70-89QypBlclzm [facility] HospitalComment on above:Performed By: #### CBCA, CMP, TSHR, 2132-05 #### [facility] ([id number]) [address], [address] [place], [place] [address]Qflqrolzxd (Bld) [Mass/Vol]13.6 g/rHCdnjyc72.7-15.5PWright-Patterson Medical Center HospitalComment on above:Performed By: #### CBCA, CMP, TSHR, 2132-05 #### [facility] ([id number]) [address], [address] [place], [place] [address]Rnrxtewzjvo (Bld) [#/Vol]1.5 10*3/uLNormal1.0-3.5PWright-Patterson Medical Center HospitalComment on above:Performed By: #### CBCA, CMP, TSHR, 2132-05 #### [facility] ([id number]) [address], [address] [place], [place] [address]Xvgmfvxdnai/100 WBC (Bld)17.6 %NormalProCincinnati Shriners Hospital Hospital Comment on above:Performed By: #### CBCA, CMP, TSHR, 2132-05 #### [facility] ([id number]) [address], [address] [place], [place] [address]ULX (RBC) [Entitic mass]30.0 qlLlgkgf89-32BumLkekue [place] HospitalComment on above:Performed By: #### CBCA, CMP, TSHR, 2132-05 #### [facility] ([id number]) [address], [address] [place], [place] [address]LQIE (RBC) [Mass/Vol]32.6 g/yJTkcwuh88-23HjoLnlnsd [facility] HospitalComment on above:Performed By: #### CBCA, CMP, TSHR, 2132-05 #### [facility] ([id number]) [address], [address] [place], [place] [address]DSZ (RBC) [Entitic vol]92 bBPpqczn03-605MpfNprnbq [facility] HospitalComment on above:Performed By: #### CBCA, CMP, TSHR, 2132-05 #### [facility] ([id number]) [address], [address] [place], [place] [address]Ohqftalvk (Bld) [#/Vol]0.7 10*3/uLNormal0-0.9ProCincinnati Shriners Hospital HospitalComment on above:Performed By: #### CBCA, CMP, TSHR, 2132-05 #### [facility] ([id number]) [address], [address] [place], [place] [address]Cxsydtzht/100 WBC (Bld)8.0 %NormalUpper Valley Medical Center Comment on above:Performed By: #### CBCA, CMP, TSHR, 2132-05 #### [facility] ([id number]) [address], [address] [place], [place] [address]Xdenirxbavj/100 WBC (Bld)73.3 %NormalUpper Valley Medical Center Comment on above:Performed By: #### CBCA, CMP, TSHR, 2132-05 #### [facility] ([id number]) [address] [place], [place] [address]Wnbrdnfm mean volume (Bld) [Entitic vol]9.0 fLNormal7-12 Upper Valley Medical CenterComment on above:Performed By: #### CBCA, CMP, TSHR, 2132-05 #### [facility] ([id number]) [address], [address] [place], [place] [address]Pxuglaeki (Bld) [#/Vol]255 10*3/oXBdujvl753-024DzxXyctey [place] HospitalComment on above:Performed By: #### CBCA, CMP, TSHR, 2132-05 #### [facility] ([id number]) [address], [address] [place], [place] [address]OPS COUNT4.52 X10E12/LNormal3.80-5.20[facility] Comment on above:Performed By: #### CBCA, CMP, TSHR, 2132-05 #### [facility] ([id number]) [address], [address] [place], [place] [address]FMI (Bld) [#/Vol]8.4 10*3/uLNormal4.0-11.0ProMedica Carrillo HospitalComment on above:Performed By: #### CBCA, CMP, TSHR, 2132-05 #### [facility] ([id number]) [address], [address] [place], [place] [address]NHLIHRBVKJXHI METABOLIC PANELon 66-62-0182Qabvscp [Mass/Vol]4.2 g/dLNormal3.2-5.3ProMedica Carrillo HospitalComment on above:Performed By: #### CBCA, CMP, TSHR, 2132-05 #### [facility] ([id number]) [address], [address] [place], [place] [address]LMZ [Catalytic activity/Vol]97 U/YTrxcec52-018NskLcapaj Carrillo HospitalComment on above:Performed By: #### CBCA, CMP, TSHR, 2132-05 #### [facility] ([id number]) [address], [address] [place], [place] [address]WPU [Catalytic activity/Vol]22 U/LNormal0-31ProMedica Carrillo HospitalComment on above:Performed By: #### CBCA, CMP, TSHR, 2132-05 #### [facility] ([id number]) [address], [address] [place], [place] [address]Xssli gap [Moles/Vol]10 mmol/LNormal5-15ProMedica Carrillo HospitalComment on above:Performed By: #### CBCA, CMP, TSHR, 2132-05 #### [facility] ([id number]) [address], [address] [place], [place] [address]ABQ [Catalytic activity/Vol]15 U/LNormal0-41ProMedica Carrillo HospitalComment on above:Performed By: #### CBCA, CMP, TSHR, 2132-05 #### [facility] ([id number]) [address], [address] [place], [place] [address]Jdbriymdn [Mass/Vol]0.3 mg/dLNormal0.3-1.2PWright-Patterson Medical Center HospitalComment on above:Performed By: #### CBCA, CMP, TSHR, 2132-05 #### [facility] ([id number]) [address], [address] [place], [place] [address]Zooutdv [Mass/Vol]9.1 mg/dLNormal8.5-10.5PWright-Patterson Medical Center HospitalComment on above:Performed By: #### CBCA, CMP, TSHR, 2132-05 #### [facility] ([id number]) [address], [address] [place], [place] [address]Ylnforsy [Moles/Vol]102 mmol/RQsgyfj88-753LgdXqachs [place] HospitalComment on above:Performed By: #### CBCA, CMP, TSHR, 2132-05 #### [facility] ([id number]) [address], [address] [place], [place] [address]JD8 [Moles/Vol]30 mmol/VMwxbhn10-65LdjUounfc [facility] Comment on above:Performed By: #### CBCA, CMP, TSHR, 2132-05 #### [facility] ([id number]) [address], [address] [place], [place] [address]Lnhrzcktnz [Mass/Vol]0.99 mg/dLNormal0.40-1.00ProCincinnati Shriners Hospital HospitalComment on above:Result Comment: METHOD TRACEABLE TO IDMS STANDARD Performed By: #### CBCA, CMP, TSHR, 2132-05 #### [facility] ([id number]) [address], [address] [place], [place] [address]APR/1.73 sq M.predicted among non-blacks MDRD (S/P/Bld) [Vol rate/Area]64 mL/min/{1.73_m2}Normal>59ProGrand Lake Joint Township District Memorial HospitalComment on above: Result Comment: Reported eGFR is based on the CKD-EPI 2020 equation that does not use a race coefficient.Performed By: #### CBCA, CMP, TSHR, 2132-05 #### [facility] ([id number]) [address], [address] [place], [place] [address]Vnvihlo [Mass/Vol]108 mg/tLQoyw12-06OtfJauvtkUpper Valley Medical Center Comment on above:Performed By: #### CBCA, CMP, TSHR, 2132-05 #### [facility] ([id number]) [address], [address] [place], [place] [address]Cxvmzqxss [Moles/Vol]4.1 mmol/LNormal3.5-5.0ProGrand Lake Joint Township District Memorial HospitalComment on above:Performed By: #### CBCA, CMP, TSHR, 2132-05 #### [facility] ([id number]) [address], [address] [place], [place] [address]Qfvhavf [Mass/Vol]7.3 g/dLNormal6.0-8.0[facility] Comment on above:Performed By: #### CBCA, CMP, TSHR, 2132-05 #### [facility] ([id number]) [address], [address] [place], [place] [address]Cebqmp [Moles/Vol]142 mmol/RCxhpyg035-711CkwEedlon [place] HospitalComment on above:Performed By: #### CBCA, CMP, TSHR, 2132-05 #### [facility] ([id number]) [address], [address] [place], [place] [address]Itpk nitrogen [Mass/Vol]17 mg/dLNormal5-27ProGrand Lake Joint Township District Memorial HospitalComment on above:Performed By: #### CBCA, CMP, TSHR, 2132-05 #### [facility] ([id number]) [address], [address] [place], [place] [address]PDJ WITH REFLEXon 11-40-9859CFR2.36 uIU/mLNormal0.49-4.67 [facility] HospitalComment on above:Performed By: #### CBCA, CMP, TSHR, 2132-05 #### [facility] ([id number]) [address], [address] [place], [place] [address]WEYILTE B12on 48-86-3201Ayughjjah (Vitamin B12) [Mass/Vol]1078 pg/zMUsaj614-946TikMiofgl [facility] HospitalComment on above:Performed By: #### CBCA, CMP, TSHR, 2132-05 #### [facility] ([id number]) [address], [address] [place], [place] [address]Zwnseqjg Analysison 89-06-2535Ssdgtmo oxalate dihydrate Infrared spectroscopy (Stone) [Mass fraction]50 %Invalid Interpretation [facility] MemorialComment on above:Performed By: #### [id number] #### [facility] [address] [place], [place] [address]Gtyklkz oxalate monohydrate (Stone) [Mass fraction]50 %Invalid Interpretation [facility] MemorialComment on above:Performed By: #### [id number] #### [facility] [address] [place], [place] [address]Ecogf (Stone)BrownInvalid Interpretation [facility] MemorialComment on above:Performed By: #### [id number] #### [facility] [address] [place], [place] [address]NloysupeuusHfwrxufMjictho Interpretation [facility] MemorialComment on above:Result Comment: Percentage (Represents the % composition)Performed By: #### [id number] #### [facility] [address] [place], [place] [address]Junpxlpylm:CommentInvalid Interpretation [facility] MemorialComment on above:Result Comment: This test was developed and its performance characteristics determined by [facility]. It has not been cleared or approved by the Food and Drug Administration. Performed at: [facility] [id number] Harris GuadalupeaPerformed By: #### [id number] #### [facility] [address] [place], [place] [address]Hedwlctbgx comment Gagandeep (Report)CommentInvalid Interpretation [facility] MemorialComment on above:Result Comment: Physician questions regarding Calculi Analysis contact [facility] at: [phone].Performed By: #### [id number] #### [facility] [address] [place], [place] [address]Liazue Note:CommentInvalid Interpretation [facility] MemorialComment on above:Result Comment: Calculi report will follow via computer, mail or infrastructure administrator delivery.Performed By: #### [id number] #### [facility] [address] [place], [place] [address]Tihf (Stone) [Entitic vol]0u3Mvdkpyl Interpretation [facility] MemorialComment on above:Result Comment: Single piece received. Performed By: #### [id number] #### [facility] [address] [place], [place] [address]Hwtqmhzc source subject NomCommentInvalid Interpretation Code [facility] HospitalComment on above:Result Comment: Not provided Performed By: #### [id number] #### [facility] [address] [place], [place] [address] PhotoCommentInvalid Interpretation [facility] MemorialComment on above:Result Comment: Photograph will follow under a separate coverPerformed By: #### [id number] #### [facility] [address] [place], [place] [address]Mxkdsr (Stone)52 mgInvalid Interpretation [facility] MemorialComment on above:Performed By: #### [id number] #### [facility] [address] [place], [place] [address]JDQ - MISCon [id number] - [facility] [id number]#1.00TIFFNoFairfield Medical CenterAlanine aminotransferase [Enzymatic activity/volume] in Serum or Plasma Ordered By: Pancho Underwood on 87-90-1431VIG [Catalytic activity/Vol]16 U/L7-52 [facility]-FairhillAlbumin [Mass/volume] in Serum or Plasma by Bromocresol green (BCG) dye binding methoOrdered By: Pancho Underwood on 72-51-2904Ewruagw BCG dye [Mass/Vol]4.3 g/dL3.5-5.7FOhioHealth Mansfield HospitalAlkaline phosphatase [Enzymatic activity/volume] in Serum or PlasmaOrdered By: Pancho Underwood on 89-31-2445LDS [Catalytic activity/Vol]77 U/L34-104 [facility]-FairhillAspartate aminotransferase [Enzymatic activity/volume] in Serum or PlasmaOrdered By: Pancho Underwood on 89-10-0558PCN [Catalytic activity/Vol]15 U/M13-55DlhqwjvjdSelect Medical Specialty Hospital - [place]-FairhillAutomated erythrocytes count in urine sediment (number/area)Ordered By: Pancho Underwood on 21-74-0551TJT Auto (Urine sed) [#/Area]3-4 [HPF]0-4FOhioHealth Mansfield HospitalAutomated leukocytes count in urine sediment (number/area)Ordered By: Pancho [place]wood on 79-47-0126USP Auto (Urine sed) [#/Area]0-1 [HPF]0-4FOhioHealth Mansfield HospitalBasophils Auto (Bld) [#/Vol]Ordered By: Pancho Undrewood on 47-09-8107Yrtdktils (Bld) [#/Vol]0.1 10*3/uL0.0-0.2FOhioHealth Mansfield HospitalBasophils/100 WBC Auto (Bld)Ordered By: Pancho [place] on 10-04-2023 Basophils/100 WBC (Bld)0.7 %.[facility] [place]hillBilirubin Test strip Ql (U)Ordered By: Pancho [place] on 59-25-9518Doegmaccn Ql (U)Negative NegativeSelect Medical Specialty Hospital - Cleveland-FairhillBilirubin.total [Mass/volume] in Serum or PlasmaOrdered By: Pancho [place] on 12-84-2935Cmwlsxths [Mass/Vol]0.4 mg/dL 0.3-1.0[facility] [place]-FairhillCalcium [Mass/volume] in Serum or Plasma Ordered By: Pancho [place] on 24-83-7717Vlhqkzr [Mass/Vol]9.6 mg/dL8.6-10.3 [facility] [place]-FairhillCarbon dioxide, total [Moles/volume] in Serum or PlasmaOrdered By: Pancho [place] on 57-66-5587KC9 [Moles/Vol]29.9 mmol/L 21.0-31.0[facility] [place]hillChloride [Moles/volume] in Serum or PlasmaOrdered By: Pancho [place] on 07-63-3528Mtdlnccx [Moles/Vol]99 mmol/L 98-107[facility] [place]hillColor Auto (U)Ordered By: Pancho [place] on 32-05-4022Kckdv (U)YellowYellowSelect Medical Specialty Hospital - [place]-FairhillCreatinine [Mass/volume] in Serum or PlasmaOrdered By: Pancho [place] on 10-04-2023 Creatinine [Mass/Vol]1.08 mg/dL0.60-1.20[facility] [place] Eosinophils Auto (Bld) [#/Vol]Ordered By: Pancho [place] on 10-04-2023 Eosinophils (Bld) [#/Vol]0.1 10*3/uL0.0-0.45[facility] [place] Eosinophils/100 WBC Auto (Bld)Ordered By: Pancho [place] on 10-04-2023 Eosinophils/100 WBC (Bld)0.7 %.[facility] [place]-FairhillErythrocyte distribution width Auto (RBC) [Ratio]Ordered By: Pancho [place] on 10-04-2023 Erythrocyte distribution width (RBC) [Ratio]14.0 %11.9-15.3FOhioHealth Mansfield HospitalErythrocyte sedimentation rate by Photometric methodOrdered By: Pancho [place] on 48-72-1971YNK Photometric method (Bld) [Velocity]26 mm/hr0-29 [facility] [place]-FairhillGlobulin Calc (S) [Mass/Vol]Ordered By: Pancho [place] on 97-47-7827Zwgtfzcr (S) [Mass/Vol]2.7 g/dLSelect Medical Specialty Hospital - Cleveland-FairhillGlucose [Mass/volume] in Serum or PlasmaOrdered By: Pancho [place] on 56-03-6133Xldpoem [Mass/Vol]128 mg/aC81-927MrbyvaxntSelect Medical Specialty Hospital - [place] Comment on above:ADA recommended reference rangeRandom Glucose Reference Range is dependent on time and content of last meal. Glucose of more than 200 mg/dL in a nonstressed, ambulatory subject supports the diagnosisof Diabetes Mellitus. Hematocrit Auto (Bld) [Volume fraction]Ordered By: Pancho [place] on 10-04-2023 Hematocrit (Bld) [Volume fraction]40.7 %34.0-46.4FOhioHealth Mansfield HospitalHemoglobin [Mass/volume] in BloodOrdered By: Pancho [place] on 10-04-2023 Hemoglobin (Bld) [Mass/Vol]13.6 g/dL11.8-15.4FOhioHealth Mansfield Hospital Ketones Auto test strip (U) [Mass/Vol]Ordered By: Pancho [place] on 10-04-2023 Ketones (U) [Mass/Vol]NegativeNegativeSelect Medical Specialty Hospital - [place] Laboratory - UrinalysisOrdered By: Pancho [place] on 57-48-7065Rczherb casts LM Ql (Urine sed)None seen [LPF]0-8[facility] [place]-FairhillLeukocytes [#/volume] corrected for nucleated erythrocytes in Blood by Automated coun Ordered By: Pancho [place] on 37-57-7802ZWC corrected for nucl RBC Auto (Bld) [#/Vol]8.7 10*3/uL3.8-11.6FOhioHealth Mansfield HospitalLymphocytes Auto (Bld) [#/Vol]Ordered By: Pancho [place] on 89-26-6441Ofltzdkkags (Bld) [#/Vol] 1.6 10*3/uL1.00-4.8[facility] [place]-FairhillLymphocytes/100 WBC Auto (Bld)Ordered By: Pancho [place] on 98-71-0235Qnlutuzkcwt/100 WBC (Bld)18.0 %. [facility] Auto (RBC) [Entitic mass]Ordered By: Pancho [place] on 19-02-6132SOI (RBC) [Entitic mass]30.6 pg24.7-34.3FOhioHealth Mansfield HospitalMCHC Auto (RBC) [Mass/Vol]Ordered By: Pancho [place] on 19-84-4899ZJLI (RBC) [Mass/Vol]33.4 g/dL32.0-35.0[facility] [place]-FairhillMCV Auto (RBC) [Entitic vol]Ordered By: Pancho [place] on 59-63-0134FAY (RBC) [Entitic vol]91.6 bA59-599RoyccwwhdSelect Medical Specialty Hospital - [place]-FairhillMonocytes Auto (Bld) [#/Vol]Ordered By: Pancho [place] on 29-60-6003Ixoywecwx (Bld) [#/Vol]0.7 10*3/uL0.0-0.8[facility] [place]hillMonocytes/100 WBC Auto (Bld) Ordered By: Pancho [place] on 81-38-8217Viluysulo/100 WBC (Bld)8.6 %.[facility] [place]-FairhillNeutrophils Auto (Bld) [#/Vol]Ordered By: Pancho [place] on 78-05-3181Yylmepyewah (Bld) [#/Vol]6.3 10*3/uL1.8-7.7FOhioHealth Mansfield HospitalNeutrophils/100 WBC Auto (Bld)Ordered By: Pancho Underwood on 53-64-6749Xiqovegdzjk/100 WBC (Bld)72.0 %.[facility] [place] Nitrite Test strip Ql (U)Ordered By: Pancho Underwood on 00-93-6600Lsjkeph Ql (U) NegativeNegativeSelect Medical Specialty Hospital - [place]-FairhillNo Panel InformationOrdered By: Pancho [place] on 51-34-2598Enqfloqze GFR (CKD-EPI)58.078 mL/MinSelect Medical Specialty Hospital - Cleveland-FairhillPharmacy Creatinine Clearance (ChemN/AFOhioHealth Mansfield HospitalNucleated erythrocytes [Presence] in Blood by Automated count Ordered By: Pancho [place] on 81-89-0171Jrlfjbkvq RBC Auto Ql (Bld)0.1 /100{WBC} 0-0.5Fire[facility] Regional Medical CenterPlatelet mean volume Auto (Bld) [Entitic vol]Ordered By: Pancho [place] on 78-96-3056Vhcpnpvs mean volume (Bld) [Entitic vol]8.3 fL6.3-10.7FOhioHealth Mansfield HospitalPlatelets Auto (Bld) [#/Vol] Ordered By: Pancho Underwood on 80-26-8395Kwkbgswle (Bld) [#/Vol]268 10*3/uL 150-450[facility] [place]hillPotassium [Moles/volume] in Serum or PlasmaOrdered By: Pancho Underwood on 28-57-4996Wtwwvxyye [Moles/Vol]4.0 mmol/L 3.5-5.1FOhioHealth Mansfield HospitalProtein Auto test strip (U) [Mass/Vol] Ordered By: Pancho Underwood on 20-25-7991Rpvrerq (U) [Mass/Vol]NegativeNegative [facility] [place]hillProtein [Mass/volume] in Serum or PlasmaOrdered By: Pancho Underwood on 83-59-0914Cfexndh [Mass/Vol]7.0 g/dL6.4-8.9[facility] [place]-FairhillRBC Auto (Bld) [#/Vol]Ordered By: Pancho Underwood on 47-57-4557AMT (Bld) [#/Vol]4.44 10*6/uL3.60-5.00Genesis Hospitalerum or plasma albumin/globulin mass ratioOrdered By: Pancho Underwood on 85-69-6076Lslpxiz/Globulin [Mass ratio]1.6 {ratio}Genesis Hospitalerum or plasma anion gap determinationOrdered By: Pancho [place] on 68-68-6852Zqvms gap [Moles/Vol]12.1 mmol/L6.0-15.0Genesis Hospitalodium [Moles/volume] in Serum or PlasmaOrdered By: Pancho [place] on 36-10-3814Ubcuag [Moles/Vol]137 mmol/T936-304OwzbyzbowSelect Medical Specialty Hospital - [place] Specific gravity Auto test strip (U) [Rel density]Ordered By: Pancho [place] on 13-32-7360Zufqejsd gravity (U) [Rel density]1.0111.001-1.030Genesis Hospitalquamous epithelial cells detection in urine sediment by light microscopyOrdered By: Pancho [place] on 33-00-9843Corfbkkfni cells.squamous LM Ql (Urine sed)None seen [HPF]0-2FOhioHealth Mansfield HospitalUrea nitrogen [Mass/volume] in Serum or PlasmaOrdered By: Pancho [place] on 18-22-0495Pmfy nitrogen [Mass/Vol]14 mg/dL7-25[facility] [place]-FairhillUrine bacteria detection by automated methodOrdered By: Pancho [place] on 38-13-5165Tupcqlho Auto Ql (U)None seenNone SeenSelect Medical Specialty Hospital - [place]-FairhillUrine clarity by refractometry automatedOrdered By: Pancho Underwood on 39-42-8037Iuqbnvg Refractometry automated (U)ClearCleAccess Hospital DaytonUrine glucose measurement by automated test strip (mass/volume)Ordered By: Pancho [place] on 30-09-3208Jtzjpow Auto test strip (U) [Mass/Vol]Normal mg/dLTrihealth Bethesda North HospitalUrine hemoglobin detection by automated test stripOrdered By: Pancho [place] on 43-96-1276Nufpjzitzk Auto test strip Ql (U)2+ NegativeSelect Medical Specialty Hospital - Cleveland-FairhillUrine leukocyte esterase detection by automated test stripOrdered By: Pancho [place] on 53-22-6437Byytxeqyn esterase Auto test strip Ql (U)NegativeNegativeSelect Medical Specialty Hospital - [place] Urobilinogen Auto test strip (U) [Mass/Vol]Ordered By: Pancho [place] on 25-56-1448Unswkbgsfdak (U) [Mass/Vol]Normal mg/dLNoAkron Children's HospitalWBC Auto (Bld) [#/Vol]Ordered By: Pancho [place] on 95-07-3299OAG (Bld) [#/Vol]8.7 10*3/uL3.8-11.6FOhioHealth Mansfield HospitalpH Auto test strip (U)Ordered By: Pancho [place] on 15-89-4725kY (U)6.0 [pH]5.0-9.0[facility] [place]-FairhillAmbulatory Visit Summaryon 56-52-0300Igwabyhjpv Visit Summary NOEMI BRAND :1960 Visit Date:09/28/2023 Ambulatory Visit Instructions Your Care Team Attending Physician - ANDRE MCNEIL PA-C Primary Care Physician - ALEXANDER HCEN DO This Is Your Medications List APAP/butalbital/caffeine/codeine (acetaminophen/butalbital/caffeine/codeine 300 mg-50 mg-40 mg-30 mg oral capsule) Misc Prescription (BACLOFEN 10 MG TABLET) albuterol aspirin (aspirin 81 mg oral tablet) atorvastatin (Lipitor 40 mg Tab) baclofen (baclofen 20 mg Tab) biotin (biotin 1000 mcg oral tablet) buPROPion (buPROPion 150 mg ER Tab) cholecalciferol (Vitamin D3) cyanocobalamin (Vitamin B12 1000 mcg Tab) famotidine (famotidine 40 mg Tab) ferrous sulfate (FeroSul 325 mg oral tablet) fluticasone-salmeterol (Advair HFA 230 mcg-21 mcg Aerosol) folic [...] Follow-Up Appointments Wednesday 10:00 AM EST With: ANDRE MCNEIL PA-C Where: [facility] Urineon 86-85-2662Lanrhauu identified Cx Nom (U) Microbiology PROCEDURE: Urine Culture [R1] SOURCE: U CleanCatch BODY SITE: COLLECTED DATE/TIME: 09/24/2023 13:25 EST RECEIVED DATE/TIME: 09/24/2023 17:33 EST START DATE/TIME: 09/24/2023 17:34 EST FREE TEXT SOURCE: Orzech REPAIRER, KAIAKO KOHANGA REO-C, Orzech REPAIRER, KAIAKO KOHANGA REO-C, Leann X Leann X FINAL REPORTS Final Report [] Verified Date/Time: 09/26/2023 07:14 EST 1,000 cfu/ml Mixed skin contaminants Performing Locations R1: This test was performed at: [facility], [address] [place] [address], [phone]- , , NgucneZfhenzFisher-Titus Medical CenterComment on above:Performed By: #### [id number] #### [facility] [address] [place], [place] [address]Ambulatory Visit Summaryon 48-17-3709Mxgapqrcos Visit Summary NOEMI BRAND :1960 Visit Date:09/24/2023 Ambulatory Visit Instructions Your Diagnosis Chronic lower urinary tract infection Tests Performed Urnls Dip Stick Auto w/o Microscopy POC 73[address] Your Care Team Attending Physician - ANDRE MCNEIL PA-C Primary Care Physician - ALEXANDER CHEN DO This Is Your Medications List APAP/butalbital/caffeine/codeine (acetaminophen/butalbital/caffeine/codeine 300 mg-50 mg-40 mg-30 mg oral capsule) Misc Prescription (BACLOFEN 10 MG TABLET) albuterol aspirin (aspirin 81 mg oral tablet) atorvastatin (Lipitor 40 mg Tab) baclofen (baclofen 20 mg Tab) biotin (biotin 1000 mcg oral tablet) buPROPion (buPROPion 150 mg ER Tab) cholecalciferol (Vitamin D3) cyanocobalamin (Vitamin B12 1000 mcg Tab) famotidine (famotidine 40 mg Tab) ferrous sulfate (FeroSul 325 mg oral tablet) fluticasone-salmeterol (Advair HFA 230 mcg-21 mcg Aerosol) folic [...] Follow-Up Appointments Wednesday 10:00 AM EST With: ANDRE MCNEIL PA-C [facility]RAD - [place] Reporton 87-78-5076FMO - CT Report [id number] Health Miamisburg Urineon 46-49-7510Cayjrsxl identified Cx Nom (U)Microbiology PROCEDURE: Urine Culture [R1] SOURCE: U CleanCatch BODY SITE: COLLECTED DATE/TIME: 09/14/2023 15:40 EST RECEIVED DATE/TIME: 09/14/2023 17:48 EST START DATE/TIME: 09/14/2023 17:48 EST FREE TEXT SOURCE: ANDRE MCNEIL PA-C, PA-C, JENNIFER E FINAL REPORTS Final Report [] Verified Date/Time: 09/16/2023 06:57 EST 5,000 cfu/ml Mixed skin contaminants Performing Locations R1: This test was performed at: [facility], [address] [place] [address], [phone]- , , RklrdeJxsjjbFisher-Titus Medical CenterComment on above:Performed By: #### [id number] #### [facility] [address] [place], [place] [address]Drngswfvfv Visit Summaryon 19-10-1578Jkakuiuckx Visit Summary NOEMI BRAND :1960 Visit Date:09/14/2023 Ambulatory Visit Instructions Your Diagnosis Feeling of incomplete bladder emptying Tests Performed Urnls Dip Stick Auto w/o Microscopy POC 66[address] Your Care Team Attending Physician - ANDRE MCNIEL PA-C Primary Care Physician - ALEXANDER CHEN DO This Is Your Medications List APAP/butalbital/caffeine/codeine (acetaminophen/butalbital/caffeine/codeine 300 mg-50 mg-40 mg-30 mg oral capsule) Misc Prescription (BACLOFEN 10 MG TABLET) albuterol aspirin (aspirin 81 mg oral tablet) atorvastatin (Lipitor 40 mg Tab) baclofen (baclofen 20 mg Tab) biotin (biotin 1000 mcg oral tablet) buPROPion (buPROPion 150 mg ER Tab) cholecalciferol (Vitamin D3) cyanocobalamin (Vitamin B12 1000 mcg Tab) famotidine (famotidine 40 mg Tab) ferrous sulfate (FeroSul 325 mg oral tablet) fluticasone-salmeterol (Advair HFA 230 mcg-21 mcg Aerosol) folic [...] Follow-Up Appointments Wednesday 10:00 AM EST With: ANRDE MCNEIL PA-C [facility]: [facility] CampusAlanine aminotransferase [Enzymatic activity/volume] in Serum or PlasmaOrdered By: Pancho [place] on 26-85-2819KFI [Catalytic activity/Vol]20 U/L7-52[facility] [place]hillAlbumin [Mass/volume] in Serum or Plasma by Bromocresol green (BCG) dye binding methoOrdered By: Pancho [place] on 89-26-7618Dyekeec BCG dye [Mass/Vol]4.1 g/dL3.5-5.7FOhioHealth Mansfield HospitalAlkaline phosphatase [Enzymatic activity/volume] in Serum or PlasmaOrdered By: Pancho [place] on 20-50-7322ROF [Catalytic activity/Vol]88 U/L 34-104[facility] [place]-FairhillAspartate aminotransferase [Enzymatic activity/volume] in Serum or PlasmaOrdered By: Pancho [place] on 54-50-6848BSR [Catalytic activity/Vol]16 U/I07-70HvqaasykxSelect Medical Specialty Hospital - [place]-FairhillAutomated epithelial cells count in urine sediment (number/area)Ordered By: Pancho [place] on 36-14-1664Noodnbpemr cells Auto (Urine sed) [#/Area]1-2 [HPF]0-2FOhioHealth Mansfield HospitalAutomated erythrocytes count in urine sediment (number/area)Ordered By: Pancho [place] on 35-16-7796XNE Auto (Urine sed) [#/Area]0-1 [HPF]0-4FOhioHealth Mansfield HospitalAutomated leukocytes count in urine sediment (number/area)Ordered By: Pancho [place] on 34-29-3210NWL Auto (Urine sed) [#/Area]1-2 [HPF]0-4FOhioHealth Mansfield HospitalAutomated urine hyaline casts count (number/volume)Ordered By: Pancho [place] on 03-19-2023 Hyaline casts Auto (U) [#/Vol]None seen [LPF]0-1FOhioHealth Mansfield HospitalBasophils Auto (Bld) [#/Vol]Ordered By: Pancho [place] on 03-19-2023 Basophils (Bld) [#/Vol]0.0 10*3/uL0.0-0.2FOhioHealth Mansfield Hospital Basophils/100 WBC Auto (Bld)Ordered By: Pancho [place] on 03-19-2023 Basophils/100 WBC (Bld)0.6 %.[facility] [place]hillBilirubin Test strip Ql (U)Ordered By: Pancho [place] on 49-69-6874Nubsmvcdh Ql (U)Negative NegativeSelect Medical Specialty Hospital - [place]-FairhillBilirubin.total [Mass/volume] in Serum or PlasmaOrdered By: Pancho [place] on 20-41-1319Vguvzglic [Mass/Vol]0.3 mg/dL 0.3-1.0[facility] [place]hillCalcium [Mass/volume] in Serum or Plasma Ordered By: Pancho [place] on 82-53-2965Cidhilj [Mass/Vol]9.1 mg/dL8.6-10.3 [facility] [place]hillCarbon dioxide, total [Moles/volume] in Serum or PlasmaOrdered By: Pancho [place] on 82-76-7072PK0 [Moles/Vol]28.5 mmol/L 21.0-31.0[facility] [place]hillChloride [Moles/volume] in Serum or PlasmaOrdered By: Pancho [place] on 78-78-1625Agyffirh [Moles/Vol]104 mmol/L 98-107[facility] [place]hillColor Auto (U)Ordered By: Pancho [place] on 25-61-5016Bzvwy (U)YellowYellowSelect Medical Specialty Hospital - [place]-FairhillCreatinine [Mass/volume] in Serum or PlasmaOrdered By: Pancho [place] on 03-19-2023 Creatinine [Mass/Vol]1.02 mg/dL0.60-1.20[facility] [place] Eosinophils Auto (Bld) [#/Vol]Ordered By: Pancho [place] on 03-19-2023 Eosinophils (Bld) [#/Vol]0.1 10*3/uL0.0-0.45[facility] [place] Eosinophils/100 WBC Auto (Bld)Ordered By: Pancho [place] on 03-19-2023 Eosinophils/100 WBC (Bld)1.5 %.[facility] [place]-FairhillErythrocyte distribution width Auto (RBC) [Ratio]Ordered By: Pancho [place] on 07-07-2023 Erythrocyte distribution width (RBC) [Ratio]14.8 %11.9-15.3FOhioHealth Mansfield HospitalErythrocyte sedimentation rate by Photometric methodOrdered By: Pancho [place] on 60-44-3313FRW Photometric method (Bld) [Velocity]21 mm/hr0-29 [facility] [place]-FairhillGlobulin Calc (S) [Mass/Vol]Ordered By: Pancho [place] on 04-32-6129Dvibrjav (S) [Mass/Vol]2.5 g/dLSelect Medical Specialty Hospital - [place]-FairhillGlucose [Mass/volume] in Serum or PlasmaOrdered By: Pancho [place] on 60-90-4386Vkehuwk [Mass/Vol]100 mg/mZ64-675ZpsxdqfnwSelect Medical Specialty Hospital - [place] Comment on above:ADA recommended reference rangeRandom Glucose Reference Range is dependent on time and content of last meal. Glucose of more than 200 mg/dL in a nonstressed, ambulatory subject supports the diagnosisof Diabetes Mellitus. Hematocrit Auto (Bld) [Volume fraction]Ordered By: Pancho [place] on 03-19-2023 Hematocrit (Bld) [Volume fraction]39.2 %34.0-46.4FOhioHealth Mansfield HospitalHemoglobin [Mass/volume] in BloodOrdered By: Pancho [place] on 03-19-2023 Hemoglobin (Bld) [Mass/Vol]12.9 g/dL11.8-15.4FOhioHealth Mansfield Hospital Ketones Auto test strip (U) [Mass/Vol]Ordered By: Pancho [place] on 03-19-2023 Ketones (U) [Mass/Vol]NegativeNegativeSelect Medical Specialty Hospital - [place] Leukocytes [#/volume] corrected for nucleated erythrocytes in Blood by Automated counOrdered By: Pancho [place] on 65-29-5344BZW corrected for nucl RBC Auto (Bld) [#/Vol]7.7 10*3/uL3.8-11.6FOhioHealth Mansfield HospitalLymphocytes Auto (Bld) [#/Vol]Ordered By: Pancho [place] on 51-44-0327Koaprtovnmb (Bld) [#/Vol]1.8 10*3/uL1.00-4.8[facility] [place]-FairhillLymphocytes/100 WBC Auto (Bld)Ordered By: Pancho [place] on 71-88-1196Urussdiksni/100 WBC (Bld)23.7 %.[facility] [place]-FairhillMCH Auto (RBC) [Entitic mass]Ordered By: Pancho [place] on 57-75-7493CWN (RBC) [Entitic mass]29.7 pg24.7-34.3FOhioHealth Mansfield HospitalMCHC Auto (RBC) [Mass/Vol]Ordered By: Pancho [place] on 50-78-6417DXWN (RBC) [Mass/Vol]32.8 g/dL32.0-35.0[facility] [place]-FairhillMCV Auto (RBC) [Entitic vol]Ordered By: Pancho [place] on 64-81-7157VFS (RBC) [Entitic vol]90.5 vX73-670DudrbigrwSelect Medical Specialty Hospital - [place]-FairhillMonocytes Auto (Bld) [#/Vol]Ordered By: Pancho [place] on 82-35-5132Evvkrboci (Bld) [#/Vol]0.8 10*3/uL0.0-0.8[facility] [place]hillMonocytes/100 WBC Auto (Bld) Ordered By: Pancho [place] on 88-15-0599Ltnjbhwkd/100 WBC (Bld)10.1 %.[facility] [place]-FairhillNeutrophils Auto (Bld) [#/Vol]Ordered By: Pancho [place] on 72-39-5201Tbrnkelyssn (Bld) [#/Vol]4.9 10*3/uL1.8-7.7FOhioHealth Mansfield HospitalNeutrophils/100 WBC Auto (Bld)Ordered By: Pancho [place] on 45-23-7831Dinvnyoebwt/100 WBC (Bld)64.1 %.[facility] [place] Nitrite Test strip Ql (U)Ordered By: Pancho [place] on 99-95-4359Yrzfndb Ql (U) NegativeNegativeSelect Medical Specialty Hospital - [place]-FairhillNo Panel InformationOrdered By: Pancho [place] on 91-34-9317Bndrfyxev GFR (CKD-EPI)> 60.0 mL/MinSelect Medical Specialty Hospital - Cleveland-FairhillPharmacy Creatinine Clearance (ChemN/White HospitalNucleated erythrocytes [Presence] in Blood by Automated count Ordered By: Pancho [place] on 45-76-6896Ugzdaxpsp RBC Auto Ql (Bld)0.1 /100{WBC} 0-0.5FOhioHealth Mansfield HospitalPlatelet mean volume Auto (Bld) [Entitic vol]Ordered By: Pancho [place] on 67-35-1157Jdjxvwux mean volume (Bld) [Entitic vol]8.5 fL6.3-10.7FOhioHealth Mansfield HospitalPlatelets Auto (Bld) [#/Vol] Ordered By: Pancho [place] on 51-05-2402Zrqpistut (Bld) [#/Vol]251 10*3/uL 150-450[facility] [place]hillPotassium [Moles/volume] in Serum or PlasmaOrdered By: Pancho [place] on 08-19-2438Rizuesfoe [Moles/Vol]4.0 mmol/L 3.5-5.1FOhioHealth Mansfield HospitalProtein Auto test strip (U) [Mass/Vol] Ordered By: Pancho [place] on 55-08-6417Clyjwmu (U) [Mass/Vol]NegativeNegative [facility] [place]hillProtein [Mass/volume] in Serum or PlasmaOrdered By: Pancho [place] on 99-89-1295Umlyzfb [Mass/Vol]6.6 g/dL6.4-8.9[facility] [place]-FairhillRBC Auto (Bld) [#/Vol]Ordered By: Pancho [place] on 18-69-7531JYV (Bld) [#/Vol]4.33 10*6/uL3.60-5.00Genesis Hospitalerum or plasma albumin/globulin mass ratioOrdered By: Pancho [place] on 71-83-6588Rttzzmx/Globulin [Mass ratio]1.6 {ratio}Genesis Hospitalerum or plasma anion gap determinationOrdered By: Pancho [place] on 90-59-5585Abwdo gap [Moles/Vol]10.5 mmol/L6.0-15.0Genesis Hospitalodium [Moles/volume] in Serum or PlasmaOrdered By: Pancho [place] on 26-25-0406Csagwh [Moles/Vol]139 mmol/P479-392Tezodxjj[facility] Specific gravity Auto test strip (U) [Rel density]Ordered By: Pancho [place] on 47-54-3232Yovajyga gravity (U) [Rel density]1.0061.001-1.030[facility] [place]hillUrea nitrogen [Mass/volume] in Serum or PlasmaOrdered By: Pancho [place] on 44-31-5149Knml nitrogen [Mass/Vol]16 mg/dL-[facility] [place]-FairhillUrine bacteria detection by automated methodOrdered By: Pancho [place] on 50-06-4173Sowvzsfh Auto Ql (U)None seenNone SeenSelect Medical Specialty Hospital - [place]-FairhillUrine clarity by refractometry automatedOrdered By: Pancho [place] on 87-19-5396Elhkedm Refractometry automated (U)ClearCleAccess Hospital DaytonUrine glucose measurement by automated test strip (mass/volume) Ordered By: Pancho [place] on 91-25-8789Fditeud Auto test strip (U) [Mass/Vol] Normal mg/dLNoAkron Children's HospitalUrine hemoglobin detection by automated test stripOrdered By: Pancho [place] on 38-44-0758Dtbwcnwkqp Auto test strip Ql (U)NegativeNegSt. John of God HospitalUrine leukocyte esterase detection by automated test stripOrdered By: Pancho [place] on 09-54-2703Jomvgxvzs esterase Auto test strip Ql (U)NegativeNegSt. John of God HospitalUrobilinogen Auto test strip (U) [Mass/Vol]Ordered By: Pancho [place] on 64-23-2290Jekjhmejooqx (U) [Mass/Vol]Normal mg/dLTrihealth Bethesda North HospitalWBC Auto (Bld) [#/Vol]Ordered By: Pancho [place] on 97-51-8816GMS (Bld) [#/Vol]7.7 10*3/uL3.8-11.6FOhioHealth Mansfield HospitalpH Auto test strip (U)Ordered By: Pancho [place] on 17-50-2947tR (U)6.0 [pH]5.0-9.0[facility] [place]-[facility]hillXR KUB 1 VIEWon 16-30-5637NU KUB 1 VIEWEXAMINATION: XR KUB 1 VIEW HISTORY: Kidney stone [...] Electronically authenticated by: YESENIA BLACK Date: 2022-08-07 10:44[facility] ACOG PANEL 2: 30 to 66on 06-23-2022..NormalThe [facility]c Healthcare SystemComment on above:Result Comment: Performed at: WBPerformed By: #### [id number] #### [facility] [address] [place] [address] Dr. Barry SanchezAge Gdln ACOG Silowvf23-76SvvvqtAdvLutheran HospitalComment on above:Performed By: #### [id number] #### [facility] [address] [place] [address] Dr. Barry SanchezDIAGNOSIS:CommentNoLutheran HospitalComment on above: Result Comment: NEGATIVE FOR INTRAEPITHELIAL LESION OR MALIGNANCY. CELLULAR CHANGES ASSOCIATED WITH ATROPHY ARE PRESENT. Performed at: WBPerformed By: #### [id number] #### [facility] [address] [place] [address] Dr. Barry SanchezHPV AptimaNegativeNormalNegativeAvita Health System Bucyrus HospitalComment on above:Result Comment: This nucleic acid amplification test detects fourteen high-risk HPV types (16,18,31,33,35,39,45,51,52,56,58,59,66,68) without differentiation. Performed at: =GPerformed By: #### [id number] #### [facility] [address] [place] [address] Dr. Barry SanchezMethodology:CommentSouthwest General Health CenterComment on above: Result Comment: This liquid based ThinPrep(R) pap test was screened with the use of an image guided system. Performed at: WBPerformed By: #### [id number] #### [facility] [address] [address] [address] Barry SanchezNote:CommentKeenan Private Hospital on above:Result Comment: The Pap smear is a screening test designed to aid in the detection of premalignant and malignant conditions of the uterine cervix. It is not a diagnostic procedure and should not be used as the sole means of detecting cervical cancer. Both false-positive and false-negative reports do occur. . Performed at: WBPerformed By: #### [id number] #### [facility] [address] [address] [address] Barry SanchezPerformed by:CommentNoOhioHealth Dublin Methodist Hospital on above: Result Comment: Kya Rabago, Assembler Adjuster (ASCP) Performed at: Performed By: #### [id number] #### [facility] [address] [place] [address] Dr. Barry SanchezSpecimen adequacy:CommentKeenan Private Hospital on above:Result Comment: Satisfactory for evaluation. Endocervical and/or squamous metaplastic cells (endocervical component) are present. Performed at: WBPerformed By: #### [id number] #### [facility] [address] [place] [address] Dr. Barry SanchezMG MAMM SCREEN 3D TERENCE CADon 70-74-5748BR MAMM SCREEN 3D TERENCE CAD Patient: NOEMI BRAND Exam Date: 06/05/2022 : 1960 Gender:F Ordering : DR KOBI LATHAM . Admission #: [id number] Family : DR ALEXANDER CHEN Order #: [id number] CLICK HERE TO VIEW EXAM RADIOLOGY REPORT PROCEDURE: MAMMOGRAM SCREENING 3D BILATERAL CAD COMPARISON: MG MAMM SCREEN TERENCE W CAD, 05/27/2020. MG MAMM SCREEN 3D TERENCE CAD, 05/28/2021. INDICATIONS: Screening mammography Calculator Name NCI Breast Cancer Risk Assessment Tool 5 Year Breast Cancer Risk 1.80% Lifetime Breast Cancer Risk 8.60% Personal Breast Cancer No Personal Ovarian Cancer No Treatments None Family Cancers Sister with thyroid cancer at age 52. LOCATION: [facility] BREAST COMPOSITION: Scattered areas fibroglandular density. FINDINGS: [...] by: Laney Rabago MD on 06/05/2022 at 10:39[facility] TSH+FREE T4on 49-16-5691Hcrk T4 [Mass/Vol]1.4 ng/dLNormal0.8-1.8Quest DiagnosticsComment on above:Performed By: #### [id number] #### [facility] [address], [address] [place], [place] [id number] Interventional Pain Physician: José Miguel Mata MDAST[facility] Qn1.36 m[IU]/LNormal0.40-4.50Quest DiagnosticsComment on above:Performed By: #### [id number] #### [facility] [address], [address] [place], [place] [id number] Interventional Pain Physician: José Miguel Mata MDLipid Profileon 17-56-0929Xskwakkjhko [Mass/Vol]158 mg/dLNormal<200[facility] CampusComment on above:Result Comment: Cholesterol Guidelines: <200 Desirable 200-240 Borderline >240 UndesirablePerformed By: #### LIPR #### [facility] [address] [place] [address] [id number] Distribution Field Engineer: QUANG Soniholesterol in HDL [Mass/Vol]46 mg/dLNormal>40 [facility] CampusComment on above:Result Comment: HDL Guidelines: <40 Undesirable 40-59 Borderline >59 DesirablePerformed By: #### LIPR #### [facility] [address] [place], [place] [id number] Distribution Field Engineer: QUANG Soniholesterol in LDL [Mass/Vol]74 mg/dLNormal0-130 [facility] CampusComment on above:Result Comment: LDL Guidelines: <100 Desirable 100-129 Near to/above Desirable 130-159 Borderline >159 Undesirable Direct (measured) LDL and calculated LDL are not interchangeable tests.Performed By: #### LIPR #### [facility] [address] [place] [address] Distribution Field Engineer: QUANG Soniholesterol.total/Cholesterol in HDL [Mass ratio]3.4 {ratio}Normal<5MerMercy Health HospitalComment on above:Performed By: #### LIPR #### [facility] [address] [place] [address] Distribution Field Engineer: Jose Parikh MDTriglyceride [Mass/Vol]191 mg/dLHigh<150[facility] CampusComment on above:Result Comment: Triglyceride Guidelines: <150 Desirable 150-199 Borderline 200-499 High >499 Very high Based on AHA Guidelines for fasting triglyceride, June 2012.Performed By: #### LIPR #### [facility] [address] [place] [address] Distribution Field Engineer: KYLE Soni FLUOROSCOPY GREATER THAN ONE HOURon 95-96-5468GJ FLUOROSCOPY GREATER THAN ONE HOURThis is an auto finalized result. Please refer to patient chart for further information. information. information.NormalDublin Congregation HospitalComment on above:Order Comment: Reason for exam?:Degenerative joint disease (DJD) of hipInjury/Trauma or Illness?:Illness/OtherHow long have you had these symptoms (acute/chronic)?:ChronicType of Exam?:OngoingAdditional signs and symptoms?:n/aFluoro time in minutes:.22Fluoro dose in mGy?:2.14XR OR HIP RIGHT 1 VIEWon 68-64-5673NC OR HIP RIGHT 1 VIEWEXAMINATION:XR OR HIP RIGHT 1 VIEWHISTORY:ORDERING SYSTEM PROVIDED HISTORY: Surgery, TECHNOLOGIST PROVIDED HISTORY: Reason for exam: Degenerative joint disease (DJD) of hipIllness/OtherEncounter Type: OngoingAdditional signs and symptoms: n/aFluoro dose in mGy: 2.14ORDERING SYSTEM PROVIDED DIAGNOSIS CODES:M16.12 Osteoarthritis of left hip, unspecified osteoarthritis typeCOMPARISON:None.TECHNIQUE:Fluoro Dose Ka,r mGy: Fluoro dose in Ka,r mGy: 2.14FINDINGS:A single spot fluoroscopic image of the right hip was obtained in the operating room. Orthopedic hardware consistent with ongoing total right hip arthroplasty is observed. The femoral stem is located centrally within the femoral diaphysis. No suspicious fractures or osseous lesions are demonstrated. There are soft tissue changes as expected in the intraoperative setting.IMPRESSION:Single spot fluoroscopic image obtained during right hiparthroplasty. For full details please see the dictated operative report.RPS/gesWorkstation ID: [id number] by: DREA BEAR on WedAug 30, 2018 11:11:02 AM ESTTranscribed by: MARTY JONES on WedAug 30, 2018 11:11:37 AM ESTFinalized by: DREA BEAR on WedAug 30, 2018 4:41:51 PM [facility] HospitalComment on above:Order Comment: Reason for exam?:Degenerative joint disease (DJD) of hipInjury/Trauma or Illness?:Illness/OtherHow long have you had these symptoms (acute/chronic)?:ChronicType of Exam?:OngoingAdditional signs and symptoms?:n/aFluoro time in minutes:.22Fluoro dose in mGy?:2.14XR CERVICAL SPINE WITH FLEXION AND EXTENSION 6+ VIEWSon 05-41-4064JY CERVICAL SPINE WITH FLEXION AND EXTENSION 6+ VIEWSEXAMINATION:CERVICAL SPINE X-RAYHISTORY:Preoperative evaluation. Prior ACDF.COMPARISON:05/14/2015.FINDINGS:Seven views of the cervical spine obtained, to [...] C6-C7.2. Mild degenerative disc disease.3. C7-T1 disc spaceis mostly obscured throughout the study, limiting assessment of that level.LSM/hbWorkstation ID: [id number] by: SANTOS ANDERSON on WedAug 17, 2018 8:54:40 AM ESTTranscribed by: JILLIAN BETTENCOURT on WedAug 17, 2018 9:00:00 AM ESTFinalized by: SANTOS ANDERSON on WedAug 17, 2018 12:24:05PM [facility] HospitalComment on above:Order Comment: Reason for exam?:patInjury/Trauma or Illness?:Illness/OtherHow long have you had these symptoms (acute/chronic)?:AcuteHistory of cancer?:noSurgeries, chemotherapy, or radiation?:neck sxType of Exam?:InitialAdditional signs and symptoms?:hip Sx schedule, no complaints to neckBasic Metabolic Panelon 60-77-1291Smaoa gap14 mmol/LInvalid Interpretation Code10 - 20 mmol/LDMH LABBicarbonate (HCO3)31 mmol/LInvalid Interpretation Code 21 - 32 mmol/LDMH LABBUN/Creatinine Ratio18.6 mg/mgInvalid Interpretation Code 10.0 - 20.0DMH LABCalcium9.3 mg/dLInvalid Interpretation Code8.4 - 10.2 mg/dLDMH QEZYvxjacyv44 mmol/LLow98 - 108 mmol/LDMH LABCreatinine1.29 mg/dLHigh0.4 - 1.1 mg/dLDMH LABeGFR (non-black)46 mL/min/{1.73_m2}Low>=60DMH LABeGFR (non-black)The eGFR should be used for monitoring renal function only and not for medication dosing.Invalid Interpretation CodeDMH NVEPdppico467 mg/iBDunm70 - 99 mg/dLDMH LABPotassium5.3 mmol/LHigh3.5 - 5.1 mmol/LDMH OVEUkkdci220 mmol/LInvalid Interpretation Ugvn894 - 145 mmol/LDMH LABUrea mg/dLInvalid Interpretation Code8 - 25 mg/dLDMH LABCBCon 23-71-7433Pfcxohsqfnjn (RBC)0.00 K/mcLInvalid Interpretation Code0.00 - 0.00DMH LABErythrocytes (RBC)3.86 M/mcL Low4.00 - 5.20DMH LABHematocrit (HCT)31.5 %Low36 - 46 %DM LABHemoglobin (HGB) 9.4 g/dLLow12 - 16 g/[facility] LABInterpretation and review of laboratory results AbnormalInvalid Interpretation [facility] CenterH24.4 pgLow26 - 34 pgDM OSBGZNZ31.8 g/dLLow31 - 37 g/[facility] EVZOIE27.6 fLInvalid Interpretation Code80 - 100 fLMOUNT [facility]INT [facility]ARY[facility] LABNucleated erythrocytes/100 erythrocytes0.0 %Invalid Interpretation [facility] LABPlatelet mean volume (PMV)11.0 fLInvalid Interpretation Code9 - 15.5 fLMOUNT SAINT MARY'S [facility]OSPITAL FSJTlqkvapxw081 K/mcLInvalid Interpretation Xdzj852 - 400DMH LABRDW-CA22.7 %High 11.6 - 14.8 %DM LABWBC (Leukocytes)9.87 K/mcLInvalid Interpretation Code4.50 - 11.00DMH LABPT/INRon 58-35-0819Fdjnupxgqjv factor induced.INR assay in platelet poor plasma1.2 {INR}High0.8 - 1.1DMH LABCoagulation tissue factor induced in platelet poor zmrajy00.3 sHigh11.8 - 14.3DMH LABINR in blood by coagulation During the induction phase of oral anticoagulation, the INR may not reflect the anticoagulation status of the patient. Therapeutic ranges for INR's are: Most clinical situations: INR 2.0-3.0 Mechanical Prosthetic Valve: INR 2.5-3.5 Critical: INR >5.0Invalid Interpretation [facility] LABBasic Metabolic Panelon 93-02-4697Olpar gap16 mmol/LInvalid Interpretation Code10 - 20 mmol/LD LAB Bicarbonate (HCO3)30 mmol/LInvalid Interpretation Code21 - 32 mmol/LD LAB BUN/Creatinine Ratio16.2 mg/mgInvalid Interpretation Code10.0 - 20.0DMH LAB Calcium9.5 mg/dLInvalid Interpretation Code8.4 - 10.2 mg/[facility] KBUCxmfrpsd26 mmol/LInvalid Interpretation Code98 - 108 mmol/[facility] LABCreatinine0.74 mg/dL Invalid Interpretation Code0.4 - 1.1 mg/[facility] LABeGFR (non-black)91 mL/min/{1.73_m2}Invalid Interpretation Code>=60DMH LABeGFR (non-black)The eGFR should be used for monitoring renal function only and not for medication dosing. Invalid Interpretation CodeD KLOHmryshp415 mg/oLQyoi17 - 99 mg/[facility] LAB Interpretation and review of laboratory resultsAbnormalInvalid Interpretation CodeD LABPotassium4.8 mmol/LInvalid Interpretation Code3.5 - 5.1 mmol/[facility] LAB Ftswjj593 mmol/LInvalid Interpretation Utes210 - 145 mmol/[facility] LABUrea nitrogen 12 mg/dLInvalid Interpretation Code8 - 25 mg/[facility] LABCBCon 11-10-2017 Erythrocytes (RBC)0.00 K/mcLInvalid Interpretation Code0.00 - 0.00DMH LAB Erythrocytes (RBC)4.35 M/mcLInvalid Interpretation Code4.00 - 5.20DMH LAB Hematocrit (HCT)35.3 %Low36 - 46 %[facility] LABHemoglobin (HGB)10.9 g/dLLow12 - 16 g/[facility] LABInterpretation and review of laboratory resultsAbnormalInvalid Interpretation CodeD EDCHKN18.1 pgLow26 - 34 pgDM ZXJFENP62.9 g/dLLow31 - 37 g/[facility] ADFECD09.1 fLInvalid Interpretation Code80 - 100 fLMOUNT SAINT MARY[facility] LABNucleated erythrocytes/100 erythrocytes0.0 %Invalid Interpretation CodeD LABPlatelet mean volume (PMV)11.1 fLInvalid Interpretation Code9 - 15.5 fLMOUNT SAINT MARY[facility] LABPlatelets 251 K/mcLInvalid Interpretation Qlrl613 - 400DMH LABRDW-CA22.0 %High11.6 - 14.8 %DM LABWBC (Leukocytes)15.05 K/mcLHigh4.50 - 11.00DMH LABPT/INRon 11-10-2017 Coagulation factor induced.INR assay in platelet poor plasma1.1 {INR}Invalid Interpretation Code0.8 - 1.1DMH LABCoagulation tissue factor induced in platelet poor .8 sInvalid Interpretation Code11.8 - 14.3DMH LABINR in blood by coagulationDuring the induction phase of oral anticoagulation, the INR may not reflect the anticoagulation status of the patient. Therapeutic ranges for INR's are: Most clinical situations: INR 2.0-3.0 Mechanical Prosthetic Valve: INR 2.5- 3.5 Critical: INR >5.0Invalid Interpretation CodeD LABInterpretation and review of laboratory resultsNormalInvalid Interpretation CodeD LABFluoroscopy Greater Than 1 Houron 35-99-7252Gfhmvduvbbj Greater Than 1 HourThis is an auto finalized result. Please refer to patient chart for further information.Invalid Interpretation CodeFUJI SYNAPSE CENTRAL OHIOPT/INRon 96-88-6127Zqiyhcwnumr factor induced.INR assay in platelet poor plasma1.1 {INR}Invalid Interpretation Code0.8 - 1.1DMH LABCoagulation tissue factor induced in platelet poor plasma 13.7 sInvalid Interpretation Code11.8 - 14.3DMH LABINR in blood by coagulation During the induction phase of oral anticoagulation, the INR may not reflect the anticoagulation status of the patient. Therapeutic ranges for INR's are: Most clinical situations: INR 2.0-3.0 Mechanical Prosthetic Valve: INR 2.5-3.5 Critical: INR >5.0Invalid Interpretation CodeD LABInterpretation and review of laboratory resultsNormalInvalid Interpretation CodeD LABType and Screenon 68-30-1268TFO+Rh groupPositiveInvalid Interpretation CodeD TRANSFUSION SERVICESBlood group antibody presenceNegativeInvalid Interpretation CodeD TRANSFUSION SERVICESSpecimen Mfszihx7311/12/2017 23:59 ESTInvalid Interpretation CodeD TRANSFUSION SERVICESXR FLUOROSCOPY GREATER THAN ONE HOURon 51-90-2034FJ FLUOROSCOPY GREATER THAN ONE HOURThis is an auto finalized result. Please refer to patient chart for further information. information. information.NormalDublde Congregation HospitalComment on above:Order Comment: Reason for exam?:hip painInjury/Trauma or Illness?:Illness/OtherHow long have you had these symptoms (acute/chronic)?:ChronicType of Exam?:OngoingAdditional signs and symptoms?:n/aFluoro time in minutes:.2Fluoro dose in mGy?:1.04XR OR HIP LEFT 1 VIEWon 43-31-6326CM OR HIP LEFT 1 VIEWEXAMINATION:XR OR HIP LEFT 1 VIEWHISTORY:ORDERING SYSTEM PROVIDED HISTORY: surgery, TECHNOLOGIST PROVIDED HISTORY: Reason for exam: hip painIllness/OtherEncounter Type: OngoingAdditional signs and symptoms: n/aFluoro dose in mGy: 1.04ORDERING SYSTEM PROVIDED DIAGNOSIS CODES:COMPARISON:Bilateral hipexamination from 12/24/2016 performed at [facility].FLUOROSCOPY TIME:Fluoro Dose Ka,r mGy: Fluoro dose in Ka,r mGy: 1.040.2 minutesFINDINGS:Single fluoroscopic image of the left hip is submitted d emonstrating postoperative changes of left hip arthroplasty. The acetabular and femoral components visualized on the single fluoroscopic image are well seated. Inferior portion of the femoral component is excluded. Alignment appears to be near anatomic.United Theological SeminaryWorkstation ID: [id number] by: KYREE GARRIDO on WedNov 09, 2017 9:33:10 AM ESTTranscribed by: MARTY JONES on WedNov 09, 2017 10:07:06 AM ESTFinalized by: KYREE GARRIDO on WedNov 09, 2017 4:03:19 PM EST NormalRiverside Methodist HospitalComment on above:Order Comment: Reason for exam?:hip painInjury/Trauma or Illness?:Illness/OtherHow long have you had these symptoms (acute/chronic)?:ChronicType of Exam?:OngoingAdditional signs and symptoms?:n/aFluoro time in minutes:.2Fluoro dose in mGy?:1.04XR OR Hip Left 1 Viewon 73-92-2025AF OR Hip Left 1 ViewInterface, [facility] 11/09/2017 4:06 PM EST EXAMINATION: XR OR HIP LEFT 1 VIEW HISTORY:ORDERING SYSTEM PROVIDED HISTORY: surgery, TECHNOLOGIST PROVIDED HISTORY: Reason for exam: hip painIllness/Other Encounter Type: Ongoing Additional signs and symptoms: n/a Fluoro dose in mGy: 1.04 ORDERING SYSTEM PROVIDED DIAGNOSIS CODES: COMPARISON: Bilateral hip examination from 12/24/2016 performed at [facility]. FLUOROSCOPY TIME: Fluoro Dose Ka,r mGy: Fluoro dose in Ka,r mGy: 1.04 0.2 minutes FINDINGS: Single fluoroscopic image of the left hip is submitted demonstrating postoperative changes of left hip arthroplasty. The acetabular and femoral components visualized on the single fluoroscopic image are well seated. Inferior portion of the femoral component is excluded. Alignment appears to be near anatomic. [employer] Workstation ID: [id number] Interpretation Code FUJI Piktochart [facility] CENTERXR OR Hip Left 1 ViewEXAMINATION: XR OR HIP LEFT 1 VIEW HISTORY: ORDERING SYSTEM PROVIDED HISTORY: surgery, TECHNOLOGISTPROVIDED HISTORY: Reason for exam: hip pain Illness/Other Encounter Type: Ongoing Additional signs and symptoms: n/a Fluoro dose in mGy: 1.04 ORDERING SYSTEM PROVIDED DIAGNOSIS CODES: COMPARISON: Bilateral hip examination from 12/24/2016 performed at [facility]. FLUOROSCOPY TIME: Fluoro Dose Ka,r mGy: Fluoro dose in Ka,r mGy: 1.04 0.2 minutes FINDINGS: Single fluoroscopic image of the left hip is submitted demonstrating postoperative changes of left hip arthroplasty. The acetabular and femoral components visualized on the single fluoroscopic image are well seated. Inferior portion of the femoral component is excluded. Alignment appears to be near anatomic. [employer] Workstation ID: [id number] Invalid Interpretation CodeFUJI BEAR LAKE MEMORIAL HOSPITALAPTTon 64-01-3626mEMP35 s Invalid Interpretation Code23 - 34DMH LABaPTTTherapeutic range for APTT's is 68 - 104 secondsInvalid Interpretation CodeD LABInterpretation and review of laboratory resultsNormalInvalid Interpretation CodeD LABAlbuminon 10-21-2017 Albumin4.5 g/dLInvalid Interpretation Code3.2 - 5.2 g/dLD LABPT/INRon 73-40-8264Tvypibyplrt factor induced.INR assay in platelet poor plasma1.3 {INR} High0.8 - 1.1DMH LABCoagulation tissue factor induced in platelet poor plasma 15.6 sHigh11.8 - 14.3DMH LABINR in blood by coagulationDuring the induction phase of oral anticoagulation, the INR may not reflect the anticoagulation stat us of the patient. Therapeutic ranges for INR's are: Most clinical situations: INR 2.0-3.0 Mechanical Prosthetic Valve: INR 2.5-3.5 Critical: INR >5.0Invalid Interpretation CodeD LABInterpretation and review of laboratory results AbnormalInvalid Interpretation [facility] LABType and Screenon 56-22-6274IWT+Rh groupPositiveInvalid Interpretation CodeD TRANSFUSION SERVICESBlood group antibody presenceNegativeInvalid Interpretation [facility] TRANSFUSION SERVICES Specimen Vkjmavy7411/08/2017 23:59 ESTInvalid Interpretation [facility] TRANSFUSION SERVICESSCAN OTHER ORDERSon 38-53-2376JNKB OTHER ORDERSOrdered by an unspecified provider.Invalid Interpretation CodeOhioHealth Vital Signs Date TimeVital SignValuePerforming ZpnkspzzlRmhyvzkv26-44-4789 11:19-0400Body gpysgs471.1 cmMauro Levin MD Work Phone: [facility] CenterAswfnpmfjz44-23-9316 11:19-0400Body mass index (BMI) [Ratio]35.94 kg/l8PrjcqxbMauro Levin MD Work Phone: [address] [place], [place] [address]Tftcrdnyxz65-46-4314 11:19-0400Body uhxjlc58.98 kgMauro Levin MD Work Phone: [facility] CenterCisvuzpovy91-33-5734 11:19-0400Diastolic blood jifqhamc04 mm[Hg]Mauro Levin MD Work Phone: [facility] CenterOlkxfrqxpp98-75-8439 11:19-0400Systolic blood vaijvskm855 mm[Hg]Mauro Levin MD Work Phone: [facility] CenterYraixaqjaa35-37-3699 13:50-0400Body asetbk427.6 cmZoe HU Work Phone: [facility]06-24-2025 13:50-0400Body mass index (BMI) [Ratio]34.86 kg/c4LuixzZoe HU Work Phone: [facility]06-24-2025 13:50-0400Body pojgue54.98 kgZoe HU Work Phone: [facility]05-19-2025 12:54-0400Body eioqcj608.6 cmAlexander Chen DO Work Phone: [facility]05-19-2025 12:54-0400Body mass index (BMI) [Ratio]35.03 kg/m2Alexander Yoos DO Work Phone: [facility]05-19-2025 12:54-0400Body lnomjwspzqi09.4 [degF]Alexander Chen DO Work Phone: [facility]05-19-2025 12:54-0400Body ierfjl51.39 kgAlexander Yoos DO Work Phone: [facility]05-19-2025 12:54-0400Diastolic blood skglygsr67 mm[Hg]Alexander Yoos DO Work Phone: [facility]05-19-2025 12:54-0400Heart rate 69 /minAlexander Yoos DO Work Phone: [facility]05-19-2025 12:54-0400 Respiratory rate18 /minJoandrzej Yoos DO Work Phone: [facility]05-19-2025 12:54-1960GyC2% (BldA) [Mass fraction]98 %Alexander Yoos DO Work Phone: [facility]05-19-2025 12:54-0400Systolic blood aneusmmk219 mm[Hg]Alexander Chen DO Work Phone: [facility]05-05-2025 13:32-0400Body itbghu058.1 cmOlimpia Shepherd [employer] ASSEMBLER Work Phone: [facility] CenterBehpokrhwk71-24-4206 13:32-0400Body mass index (BMI) [Ratio]36.28 kg/r3Iiaxfklleni Torresgel G[employer]UR[employer] ASSEMBLER Work Phone: [facility] CenterFnoctawybh32-29-5254 13:32-0400Body ecplah60.88 kgFeleni Torresgel G[employer]UR[employer] ASSEMBLER Work Phone: [facility] CenterAspuzmaodc45-25-2969 13:32-0400Diastolic blood yzlicvqy51 mm[Hg]Olimpia Shepherd [employer] ASSEMBLER Work Phone: [facility] CenterZwnihwwksx56-54-3634 13:32-0400Systolic blood mm[Hg]Olimpia Shepherd G[employer] ASSEMBLER Work Phone: [facility] CenterUsmvrydsvp14-96-6431 10:31-0500Body oncwow096.1 cmMauro Levin MD Work Phone: [facility] CenterWecskbqprs36-87-9899 10:31-0500Body mass index (BMI) [Ratio]35.28 kg/o9QbljmcoMauro Levin MD Work Phone: [facility] CenterFshhmegcbx23-42-2617 10:31-0500Body lorybn55.16 kgMauro Levin MD Work Phone: [facility] CenterZdglhvxgla41-44-2715 11:08-0500Blood Pressure LocationJENNIFER GERRY [facility]12-17-2024 11:08-0500Body ourtbjpknkr967.04 [degF]ANDRE MCNEIL [facility]12-17-2024 11:08-0500Diastolic blood qrbaaijp92 mm[Hg]ANDRE GERRY [facility]12-17-2024 11:08-0500Heart rate58 /minJENNIFER GERRY [facility]12-17-2024 11:08-0500Systolic blood qilogquw569 mm[Hg]ANDRE MCNEIL [facility]10-14-2024 14:08-0400Body mass index (BMI) [Ratio]34.95 kg/k5Qtpzx Noa DO Work Phone: [facility] CenterIsnfqkituf09-91-9894 14:08-0400Body hzcday55.25 kgCorey Noa DO Work Phone: [facility] CenterAjdnkvgvub12-18-4648 14:08-0400Diastolic blood pueurvcu74 mm[Hg]Kobi Noa DO Work Phone: [facility] CenterIoccfloyas86-57-0678 14:08-0400Systolic blood awbdtjbp477 mm[Hg]Kobi Latham DO Work Phone: [facility] CenterYkoqubznqx12-35-0052 12:58-0500Blood Pressure LocationJENNIFER GERRY [facility] [facility]12-13-2022 12:58-0500Diastolic blood neaisgap25 mm[Hg]ANDRE GERRY [facility]12-13-2022 12:58-0500Heart rate77 /minJENNIFER GERRY [facility]12-13-2022 12:58-0500Respiratory rate16 /minJENNIFER GERRY [facility]12-13-2022 12:58-0500Systolic blood kqowcbne419 mm[Hg]ANDRE GERRY [facility]03-01-2018 07:27-0500Body Vlziuvsixgs23.9 [degF]Lina [facility] 11-11-2017 07:27-0500BP Bbvhbcjbb85 mm[Hg][facility] HealthFacclUziyGzqdid00-28-0839 07:27-0500BP Npfpuwqi827 mm[Hg]Lina YcspqWfnfWuxugm40-02-5340 07:27-0500Pulse (Heart Rate)57 /minGrand River HealthQejlhOcfdOjcqvk52-51-0484 07:27-0500Pulse Ticxpzpz00 % Lina OhmhfHnapFfhlcc41-47-8116 07:27-0500Respiratory Rate15 /minTheric Medina HospitalBizfHaufti39-74-9111 06:26-0500BMI (Body Mass Index)36.32 kg/s3Eyaqiw Medina HospitalFwkbQbiinv52-70-1894 06:26-0543Adixsv915.1 cmThomLicking Memorial HospitalAbarcKhexXlviiq47-61-5347 06:26-2152Ocbemp10 kgThAdena [facility] Medical CenterBvdaoXbmnOppbaj43-35-9783 12:12-0500BMI (Body Mass Index)35.59 kg/p2Nucvn [facility] Work Phone: 1(219) 171-352902-08-2018 12:12-0500Body Kfhwbksrbav28.7 [degF]Rossana [facility] Work Phone: 1(745) 509-730102-08-2018 12:12-0500BP Ueebjcqnh14 mm[Hg]Rossana [facility] Work Phone: 1(811) 203-905202-08-2018 12:12-0500BP Vhxoxrdh852 mm[Hg]Rossana [facility] Work Phone: 1(244) 539-807702-08-2018 12:12-1662Ozllaa684.1 cmRossana [facility] Work Phone: 1(850) 793-712302-08-2018 12:12-0500Pulse (Heart Rate)88 /minRossana [facility] Work Phone: 1(994) 221-832102-08-2018 12:12-0500Pulse Lncfxzjq86 %Rossana [facility] Work Phone: 1(639) 712-587102-08-2018 12:12-4843Cawhfl39 kgRossana [facility] TechnologyWyandot [facility] Work Phone: Encounters Encounter DateEncounter TypeCare ProviderFacilityStart: 84-96-7243rlbwiuolnjdeandra MCNEILFacility:EU BellevueStart: 07-03-2025 End: 93-06-7691Qgldum flowsheetCorey Noa DO Work Phone: N[facility]T [facility]ve OBGYNStart: 07-03-2025 End: 17-81-5743Irteob flowsheetCorey Noa DO Work Phone: noms [place] OBGYNStart: 07-03-2025 End: 95-32-1763Hswhgz-up encounter[address] - Pharmacy Medication ManagementComment on above: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)Start: 07-02-2025 End: 23-65-2252LpgaglTjns L Yuhas DO Work Phone: [facility] - Family MedicineComment on above:Mixed hyperlipidemiaStart: 06-29-2025 End: 46-98-3013Exfbfsifec and management of inpatientJOANDRZEJ Sorto [facility] Townshiptart: 06-15-2025 End: 64-02-1608Uflklmfte encounterProathens-[facility] Pharm[facility] Medication Management Work Phone: [phone] - Pharmacy Medication ManagementStart: 06-08-2025 End: 58-53-9733bzadmgqfkrBUEB L YUHASFacility:[facility] Centertart: 06-07-2025 End: 21-28-6617Chxdyi-up encounter[address] - Pharmacy Medication ManagementComment on above: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)Start: 06-07-2025 End: 64-06-6841lyonmenlgoAzqdew Franklin Kindl MDFacility:PM [facility] HospitalruderStart: 05-29-2025 End: 82-53-0000Ygsscynke encounterCatLutheran [facility] - Pharmacy Medication ManagementStart: 77-97-2601wexxzntpbdHmpn Provider Facility:[facility] Centertart: 05-24-2025 End: 44-55-3761gnjpdqjhgfRdyujfl M AuxierFacility:[facility] Centertart: 05-24-2025 End: 85-79-9554vglfcfwybnYqbqmfv Marie Auxier APRNCNPFacility:PM [facility] Centertart: 05-08-2025 End: 27-72-8822EqhpinGpph L Yuhas DO Work Phone: [facility] - Family MedicineComment on above:Gastroesophageal reflux disease, unspecified whether esophagitis presentStart: 05-02-2025 End: 82-88-2872CwgvvuRxnwafgJake Levin MD Work Phone: NODE Milady NeurologyComment on above:Migraine without aura and without status migrainosus, not intractableStart: 04-20-2025 End: 77-32-3974Qzxvfb-up encounter[address] - Pharmacy Medication ManagementComment on above: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)Start: 04-20-2025 End: 71-22-9286tpeplgseqhPSRCJJOJY PHARMACY MEDICATION MANAGEMENTUniversity Hospitals Health Systemtart: 04-13-2025 End: 63-40-5741UyltfhBqtw L Yuhas DO Work Phone: [facility] - Family MedicineComment on above:Essential hypertensionStart: 04-04-2025 End: 60-90-1587EqxuchJutzpnl W Bauer MD Work Phone: noms SWS NEURComment on above:Migraine without aura and without status migrainosus, not intractableStart: 03-23-2025 End: 09-14-3780Ogakfbjimenez Levin MD Work Phone: noms BM NEUROLOGYStart: 03-23-2025 End: 27-20-1873Lvcihvjimenez Levin MD Work Phone: noms NEUROLOGYStart: 03-23-2025 End: 05-81-1443Spxkof outpatient visit 25 minutesMauro Levin MD Work Phone: noms SWS NEURComment on above:Migraine without aura and without status migrainosus, not intractable (Primary Dx)Start: 03-23-2025 End: 61-23-7285jkjtbrzatmPDQLCLU W BAUERNot AvailableStart: 03-23-2025 End: 45-97-8428yaqotfrtxuOQQOPJPQT PHARMACY MEDICATION MANAGEMENTUniversity Hospitals Health Systemtart: 03-23-2025 End: 03-10-4374Itgggs-up encounterPm[address] - Pharmacy Medication ManagementComment on above:FPC (current) use of 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 (Primary Dx); Lupus anticoagulant disorderStart: 03-06-2025 End: 14-54-2803lhdymiyfumEJBBZKing's Daughters Medical Center Ohiotart: 03-06-2025 End: 34-74-0914Zutpleica therapyAlexander Noreen Galvezanisha DO Work Phone: [facility] - Diabetes and Nutrition EducationComment on above:Type 2 diabetes mellitus without complication, without long-term current use of insulin ([facility])Start: 03-04-2025 End: 17-80-8518oqsafmhqcmTebpvrjp Ann Hackenburgcility:Genesis Hospitaltart: 02-16-2025 End: 46-85-9361Dwvugs-up encounter[address] - Pharmacy Medication ManagementComment on above: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)Start: 02-16-2025 End: 14-23-0747fpecsmnngnHIICIWACache Valley Hospitaltart: 02-08-2025 End: 73-81-5731UagftwDamb L Yuhas DO Work Phone: [facility] Internal Medicine - Family MedicineComment on above:Mild persistent asthma without complicationStart: 01-31-2025 End: 87-32-4819Bqhqfkspn encounterInduandrzej Noreen Chen DO Work Phone: [facility] - Diabetes Start: 01-29-2025 End: 26-19-5832Hicvwf outpatient visit 25 minutesJoandrzej Chen DO Work Phone: [facility] Internal Medicine - Family MedicineComment on above:Essential hypertension (Primary Dx); 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; Mixed hyperlipidemia; IFG (impaired fasting glucose); Obesity, morbid ([facility]-H[facility]); Bipolar II disorder ([facility]); Chronic deep vein thrombosis (DVT) of proximal vein of lower extremity, unspecified laterality ([facility]); Systemic lupus erythematosus ([facility]); Lupus anticoagulant disorder; Mild persistent asthma without complication; Gastroesophageal reflux disease, unspecified whether esophagitis present; Special screening for malignant neoplasm of colonStart: 01-29-2025 End: 43-09-0713adzrtisencMSEFRoswell Park Comprehensive Cancer Center Ambulatory PPGStart: 01-22-2025 End: 48-07-0395LdhltfDudx L Yuhas DO Work Phone: [facility] - Family MedicineComment on above:Gastroesophageal reflux disease, unspecified whether esophagitis presentStart: 01-19-2025 End: 22-34-1019Dfvbfc-up encounter[address] - Pharmacy Medication ManagementComment on above:FPC (current) use of 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 (Primary Dx)Start: 01-19-2025 End: 88-59-8324dqmslvriavEDKMOKYUN PHARMACY MEDICATION MANAGEMENTUniversity Hospitals Health Systemtart: 01-15-2025 End: 05-71-3869Gqksnm flowsheetFelicia C Cora [employer]SEMBLER Work Phone: noms BM NEUROLOGYStart: 01-15-2025 End: 87-14-1826Opyqrp flowsheetFelicia C Jadennagel [employer] ASSEMBLER Work Phone: noms BM NEUROLOGYStart: 01-15-2025 End: 08-93-9765Rtaqve outpatient visit 25 minutesFelicia C Jadennagel [employer] ASSEMBLER Work Phone: noms SWS NEURComment on above:Migraine without aura and without status migrainosus, not intractable (CMS/HCC) (Primary Dx)Start: 01-15-2025 End: 97-89-7230HwskntOqut L Yuhas DO Work Phone: [facility] - Family MedicineComment on above:Essential hypertensionStart: 01-03-2025 End: 58-86-4846JuglcyIzns L Yuhas DO Work Phone: [facility] - Family MedicineComment on above:Gastroesophageal reflux disease, unspecified whether esophagitis present; Cervical spondylosis with radiculopathyStart: 01-01-2025 End: 18-23-6355SxitfxLfdn L Yuhas DO Work Phone: [facility] - Family MedicineComment on above:Mixed hyperlipidemiaStart: 12-26-2024 End: 17-99-0563FfswcyPkmw L Yuhas DO Work Phone: [facility] - Family MedicineComment on above:Mixed hyperlipidemiaStart: 12-25-2024 End: 04-91-1398CwdhgvVovd L Yuhas DO Work Phone: [facility] - Family MedicineComment on above:Mild persistent asthma without complicationStart: 12-22-2024 End: 92-25-8526Joaaqp-up encounter[address] - Pharmacy Medication ManagementComment on above: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)Start: 12-22-2024 End: 36-00-4778ldtcwycsygSQUKDQQJK PHARMACY MEDICATION MANAGEMENTUniversity Hospitals Health Systemtart: 11-24-2024 End: 22-70-2340Ygkhof-up encounter[address] - Pharmacy Medication ManagementComment on above: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)Start: 11-24-2024 End: 66-12-8780daydtkvxenDEMXTUCYL PHARMACY MEDICATION MANAGEMENTUniversity Hospitals Health Systemtart: 11-08-2024 End: 78-70-7137BwlkiqKnjr L Yuhas DO Work Phone: [facility] - Family MedicineComment on above:Mild persistent asthma without complicationStart: 10-27-2024 End: 26-14-8705Vavqxp-up encounter[address] - Pharmacy Medication ManagementComment on above:FPC (current) use of 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 (Primary Dx)Start: 10-27-2024 End: 01-04-3944wqufyvqxkbDQYNCCECC PHARMACY MEDICATION MANAGEMENTUniversity Hospitals Health Systemtart: 10-18-2024 End: 95-57-4811DwvtydKwkk L Yuhas DO Work Phone: [facility] Internal Medicine - Family MedicineComment on above:Cervical spondylosis with radiculopathy; Gastroesophageal reflux disease, unspecified whether esophagitis presentStart: 10-03-2024 End: 64-09-7590QqqabkFssrRhoda Chen DO Work Phone: [facility] - Family MedicineComment on above:Gastroesophageal reflux disease, unspecified whether esophagitis presentStart: 09-29-2024 End: 88-91-9437Ojzmbw-up encounter[address] Medication Therapy ManagementComment on above: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)Start: 09-29-2024 End: 43-61-0693xjzrajdcebVAKRHGDDC PHARMACY MEDICATION MANAGEMENTUniversity Hospitals Health Systemtart: 09-22-2024 End: 03-89-8847Gkipmqjimenez Levin MD Work Phone: noms NEUROLOGYStart: 09-22-2024 End: 31-29-7133Zgihomjmienez Levin MD Work Phone: noms NEUROLOGYStart: 09-22-2024 End: 52-39-9913Omjltn outpatient visit 25 minutesMauro Levin MD Work Phone: noms SWS NEURComment on above:Migraine without aura and without status migrainosus, not intractable ([facility])Start: 09-22-2024 End: 41-24-3094yvuqhtidovQNPGXQG W BAUERNot AvailableStart: 09-20-2024 End: 05-11-4617jmyuiwtzjzESUYUDFSE PHARMACY MEDICATION MANAGEMENTUniversity Hospitals Health Systemtart: 09-20-2024 End: 38-89-3037Vrcfio-up encounter[address] Medication Therapy ManagementComment on above:FPC (current) use of 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 (Primary Dx)Start: 09-15-2024 End: 55-20-6921lldbbiajzyKTLA L YUHASPCleveland Clinic South Pointe Hospitaltart: 09-01-2024 End: 62-33-1951Wbqsto-up encounter[address] Medication Therapy ManagementComment on above:FPC (current) use of 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 (Primary Dx)Start: 09-01-2024 End: 13-90-1772nmnbsfsdbgGDDBFNBNH PHARMACY MEDICATION MANAGEMENTProMedica Mesa HospitalStart: 08-29-2024 End: 09-61-1494cpgabpdnlyXAREWYTZ E PERRYFacility:EU BellueStart: 08-29-2024 End: 03-03-9695Werrybp encounter procedureJENNIFER E GERRY [facility] start: 08-24-2024 End: 99-30-1562smftmghidrIwbd ProviderFacility:[facility] HospitalStart: 08-24-2024 End: 42-52-2543ervdddqjjfLnfyvhlTyler MCINTOSHFacility: VicMemorial Medical Centertart: 08-11-2024 End: 24-19-0872amqroxvcxsRpsq [facility] CenterFacility:[facility] Start: 08-04-2024 End: 78-02-6541rzypcgtffvXJLCM SERVICEProMedica Mesa HospitalStart: 07-21-2024 End: 98-66-9101yijcclgkkkVZFTU SERVICEProMedica Mesa HospitalStart: 07-20-2024 End: 71-01-0129tnagpthidaDSCJ L [facility] HospitalStart: 07-20-2024 End: 11-34-3905odslctbslyVRFN L [facility] PPGStart: 07-14-2024 End: 97-46-5806tixnlaeaipRGZJY SERVICEProMedica Mesa HospitalStart: 06-26-2024 End: 41-26-7426Tahfvp flowsheetCorey Noa DO Work Phone: NOMS BCP OBStart: 06-26-2024 End: 90-76-3874Wqqsze flowsheetCorey Noa DO Work Phone: NOHD BCP OBStart: 06-26-2024 End: 57-24-2126Wmiixhdva Result EncounterCorey Noa DO Work Phone: NOM[facility] External Department UnsolicitedStart: 06-26-2024 End: 53-52-7738Unkfcab encounter procedureCorey Noa DO Work Phone: noms BCP OBComment on above:Well woman exam with routine gynecological exam; Postmenopausal state; Breast cancer screening by mammogramStart: 06-26-2024 End: 57-56-6344gchgzfjhhtAMEMG FAZIONot AvailableStart: 06-16-2024 End: 37-43-4776fxiugosnxxZMPQFR F KINDLFacility:[facility]achel HospitalStart: 06-15-2024 End: 29-19-3185Kkmhozydt encounterMauro Levin MD Work Phone: noms SWS NEURStart: 06-07-2024 End: 84-41-3292MyfardVsvcyib W Bauer MD Work Phone: noms SWS NEURComment on above:Lumbar radiculopathy Start: 05-26-2024 End: 75-55-9834Curqkq flowsFrancisco J Levin MD Work Phone: noms BM NEUROLOGYStart: 05-26-2024 End: 34-23-1842Wmcqyf Cheyenne Levin MD Work Phone: noms BM NEUROLOGYStart: 05-26-2024 End: 53-63-5282fvqdaqhqssSKOPPED W BAUERNot AvailableStart: 05-26-2024 End: 20-48-9975Cfnnhd outpatient visit 25 minutesMauro Levin MD Work Phone: noms SWS NEURComment on above:Migraine without aura and without status migrainosus, not intractable (CMS/HCC)Start: 05-09-2024 End: 08-95-7386pgrqrhotpvJSIHEmory University Hospital [facility] Ambulatory PPGStart: 02-25-2024 End: 29-99-1515wldtmflomsZK Alexander Chen Work Phone: [facility] Work Phone: Start: 02-25-2024 End: 19-14-1988Rshxxxo encounter procedureDO Alexander Chen Work Phone: [facility] [place] Work Phone: Start: 12-09-2023 End: 80-09-8673ivjcxabqmoRKUO Noreen Andrade [facility] HospitalStart: 10-20-2023 End: 61-46-3309Ibo Drop offKasandra Christopher [facility] Start: 10-20-2023 End: 01-94-4935wqajcsfhxtKmdlu M. LueFacility:FTMCStart: 10-04-2023 End: 64-02-5488kacplxeeryNW Alexander Chen Work Phone: [facility] Work Phone: Start: 10-04-2023 End: 67-52-3580Eitsfas encounter procedureDO Alexander Chen Work Phone: [facility] [place] Work Phone: Start: 09-28-2023 End: 69-61-7528xbgjwddxyqRSUDQZRZ E PERRYFacility:EU [place]vueStart: 09-28-2023 End: 89-17-5425Tiikxnw encounter procedureJENNIFER E GERRY [facility] start: 09-24-2023 End: 09-51-8688yxlgpvlicjRpttze X OrzechFacility:FTMCStart: 09-24-2023 End: 71-39-7700Ijx Drop offAurora X Orzech [facility] Start: 09-24-2023 End: 86-10-2573fyohqgjyzsLXEADGQY E PERRYFacility:EU [place]vueStart: 09-24-2023 End: 86-90-9686Vmmygqf encounter procedureJENNIFER E GERRY [facility] start: 09-14-2023 End: 08-24-4529Jge Drop offJENNIFER E GERRY [facility] Start: 09-14-2023 End: 15-23-0550dlqgyfsovmPCEXGXEK E PERRYFacility:FTMCStart: 03-19-2023 End: 12-24-8232wsdogwfqcyRT Alexander Chen Work Phone: [facility] Work Phone: Start: 03-19-2023 End: 98-57-0171Yymjqye encounter procedureDO Alexander Chen Work Phone: [facility] [place] Work Phone: Start: 08-25-2022 End: 42-71-6475Cfrowwx encounter procedureJENNIFER E GERRY [facility] start: 08-07-2022 End: 25-16-0953wvelixckkpDO ТАТЬЯНА JONES Facility:W2Lkrfo: 06-16-2022 End: 83-73-1333jvnskmuconWX KOBI FAZIOFacility:B0Gzzxn: 06-05-2022 End: 86-39-5528qsaxozzkcqLH KOBI FAZIOFacility:R3Rbwwh: 12-10-2021 End: 28-53-0440qlsaehgkfyDSTGVJasen Vu HospitalStart: 12-10-2021 End: 21-24-4380Fattmiafme hospital visit by Naomy Chen Work Phone: [facility] LaboratoryStart: 08-30-2018 End: 82-15-6842Ctwkfecrmi and management of inpatientTHOMAS ROSSANA LEYNelliecherie Congregation HospitalStart: 08-16-2018 End: 06-88-8876Lojqfbo encounter procedureTHOMAS ROSSANA LEYSCCI [facility] HospitalStart: 53-14-5477Zjuglvkwk for other preprocedural examinationTHOMAS [facility] HospitalStart: 44-83-4784Xbxetaewb for preprocedural cardiovascular examinationTHOMAS [facility] HospitalStart: 08-16-2018 End: 09-71-6214Kziqdqh encounter procedureTHOMAS ROSSANA LEYSCCI [facility] HospitalStart: 02-23-2018 End: 62-46-1085TodmdctdatGGHEBFT MARIE [facility] HospitalStart: 11-09-2017 End: 24-04-0028Itwaufpeco and management of inpatientTHOMAS ROSSANA [facility] HospitalStart: 11-09-2017 End: 84-66-0977Xcrwnxhqap and management of inpatientThomas Rossana Elizabeth Work Phone: [facility] Patient Care [place] [phone]: 10-21-2017 End: 39-72-9688Snvnets encounter procedureTHOMAS ROSSANA [facility] HospitalStart: 19-53-8482Vwsufyx encounterThomas Rossana Elizabeth Work Phone: [facility] Preadmission Testing Encounter for other preprocedural examinationTHOMAS [facility] EastEncounter for preprocedural cardiovascular examinationTHOMAS [facility] Procedures DateProcedureProcedure DetailPerforming ClinicianStart: 60-88-7756Kmqrzyclxsf timePromedica Pharmacy Medication Management Work Phone: [phone]: 84-70-5134Ubfdypfwijs timePromedica Pharmacy Medication Management Work Phone: [phone]: 74-81-2049Shrjdqopneg timePromedica Pharmacy Medication Management Work Phone: [phone]: 11-36-3479Rkrsyuysbiv timePromedica Pharmacy Medication Management Work Phone: Start: 54-94-4713IKA REFERRAL TO DIABETIC EDUCATION Alexander Chen DO Work Phone: Start: 17-66-9409Nhwsvvphvwy timePromedica Pharmacy Medication Management Work Phone: Start: 85-38-6729Oesfpclgpawvt metabolic panelAlexander Chen DO Work Phone: Start: 85-06-9341Ogzlx panelJoandrzej Chen DO Work Phone: Start: 43-72-0520Sjcxz depression screening assessment Alexander Chen DO Work Phone: Start: 55-38-1825Nsqnlwihyrk timePromedica Pharmacy Medication Management Work Phone: Start: 76-23-1404Zripkgrekjm timePromedica Pharmacy Medication Management Work Phone: Start: 07-12-4876Jktshrnpmcy timePromedica Pharmacy Medication Management Work Phone: Start: 13-50-4081Wihfjmfbtrt timePromedica Pharmacy Medication Management Work Phone: Start: 59-40-1470Fhmsjxgbjfu timeJobst Service Work Phone: Start: 91-50-7812Rizxrfmbbpu timeJobst Service Work Phone: Start: 29-55-6687Sivtibpgsph timeJobst Service Work Phone: Start: 90-39-2646FvimfltggxgUfawisd Bauer MD Work Phone: Start: 97-43-2422Jqpir depression screening assessment [facility] 2Start: 70-12-5876EYQ,APTIMA HPV,AGE GDLNCorey Noa DO Work Phone: Start: 78-68-7544IpbikqmatbtYmdhnhu Bauer MD Work Phone: Start: 32-18-8394Fwmuldbjsgru bilateral oophorectomy ANDREYOHANA MCNEIL Start: 70-64-8977Xrmhxlqzsezic of internal noseJENNIFER GERRY Start: 96-32-4480Nvoqcrxgdyimjaevn with dilation of urethral strictureANDRE MCNEIL Start: 11-09-2017 End: 95-35-0933JNLY TOTAL HIP ARTHROPLASTY ANTERIOR APPROACHThomas Rossana Elizabeth Work Phone: Start: 01-50-2860Vftgogkawp arthroplasty of the hip ANDRE MCNEIL Start: 64-52-5644Vinebrclof of cataractANDRE MCNEIL Start: 07-25-3502Wypq cava filter (physical object) ANDRE MCNEIL Start: 89-67-6603Ijtndkqylx of spineANDRE MCNEIL Start: 67-83-2494Unuozlm of operative procedure on knee ANDRE MCNEIL Start: 09-07-0998Wqfpfjvtds, device (physical object) ANDRE MCNEIL Start: 56-15-6456Vfuxkhpf sectionANDRE MCNEIL Plan of Treatment DateCare ActivityDetailAuthorStart: 81-54-3306Huenfy Use: DiabeticStatin Use: DiabeticGlenbeigh HospitalCoda Payments SystemStart: 31-59-8401Rvjzr BMI ScreeningAdult BMI ScreeningUniversity Hospitals [facility] SystemStart: 70-31-2503Hzvdrac ScreeningTobacco ScreeningUniversity Hospitals Portage [facility] Center SystemStart: 06-91-3901Lfebceruk for malignant neoplasm of colonNOMS HealthcareStart: 32-68-3960Ihgvh BMI ScreeningAdult BMI ScreeningUniversity Hospitals Portage Medical Center SystemStart: 36-24-7665Oyvzp BMI ScreeningAdult BMI ScreeningUniversity Hospitals Portage [facility] Center SystemStart: 07-53-0337Nvyhcouekd ScreeningDepression ScreeningUniversity Hospitals [facility] Center SystemStart: 90-43-5002Xrvhdpz ScreeningTobacco ScreeningUniversity Hospitals [facility]age [facility] Center SystemStart: 51-73-4194Jkhypg Use: DiabeticStatin Use: DiabeticGlenbeigh HospitalCoda Payments SystemStart: 65-68-1092Wudpcevms for malignant neoplasm of breastMammogramNODE HealthcareStart: 07-27-2025 End: 23-45-2129Xqoslxr encounter procedureNOMS SWS NEURStart: 67-19-4279Maaxk BMI ScreeningAdult BMI ScreeningProOhio State Health System SystemStart: 07-20-2025 Depression ScreeningDepression ScreeningAtrium Health Carolinas Medical Centertart: 07-20-2025 Tobacco ScreeningTobacco ScreeningProMartins Ferry Hospitaltart: 07-13-2025 End: 09-13-8049Cxjynk-up angbcxouw35/31/2025 11:45 AM EDT Follow Up Anticoagulation [facility] - Pharmacy Medication Management [address] [place] [address] RaxVrcmgdCleveland Clinic Foundation - Pharmacy Medication ManagementStart: 07-03-2025 End: 53-40-3026Irwjnaq encounter procedureNOMS BCP OBComment on above:Arrived Start: 07-03-2025 End: 00-00-3585Fajwap-up kuddnwwov43/21/2025 9:00 AM EDT Follow Up Anticoagulation [facility] - Pharmacy Medication Management [address] [place] [address] GkwCqecgdCleveland Clinic Foundation - Pharmacy Medication ManagementStart: 06-29-2025 End: 20-10-1471Hkegeltkt to same day surgery hrddyz0606/29/2025 1:30 PM EDT - 06/29/2025 2:30 PM EDT Surgery [facility] - Endoscopy [address] [place] [id number] Alexander Chen, DO [address] [place] [address] COLONOSCOPY DIAGNOSTIC / SCREENING [G0121 +1 more][facility] - EndoscopyComment on above:COLONOSCOPY DIAGNOSTIC / SCREENING [G0121 +1 more]Start: 06-29-2025 End: 78-53-9332Rymfv ca scrn not hi rsk indCOLONOSCOPY DIAGNOSTIC / SCREENING Screen for colon cancer 06/29/2025 1:30 PM EDTFREMONT ENDOSCOPYStart: 06-29-2025 Subsequent hospital visit by zsjtafxji20/17/2025 1:30 PM EDT Hospital Encounter [facility] - Endoscopy [address] [place] [address] Alexander Chen, [address] [facility], [place] [phone] (Work) [facility] - EndoscopyStart: 06-28-2025 End: 40-50-6428jnsnkqtxqq41/16/2025 4:20 PM EDT Support Visit [facility] - Pre Admit [address] [place] [address] [facility] - Pre AdmitStart: 06-07-2025 End: 93-93-1870Ijpzys-up qlverpqej41/25/2025 10:30 AM EDT Follow Up Anticoagulation [facility] Pharm[facility] Medication Management [address] [place] [address] MnhAejuzdCleveland Clinic Foundation - Pharmacy Medication ManagementStart: 06-01-2025 End: 25-99-4388Wdqeaq-up xzxkfyrbq42/19/2025 8:45 AM EDT Follow Up Anticoagulation [facility] Medication Management [address] [place] [address] BagIzzjfpCleveland Clinic Foundation - Pharmacy Medication ManagementStart: 38-91-2319OZGAW-19 Vaccine ( season)COVID-19 Vaccine ( season)[facility] SystemStart: 04-83-7042Mwncsiopo vaccinationAtrium Health Carolinas Medical Centertart: 05-09-2025 End: 26-66-2839Pvvxidk encounter qoiejhgcu77/27/2025 1:00 PM EDT Office Visit [facility]icians Internal Medicine - Family Medicine [address] [place] [address] Alexander Chen, DO [address] [place], [place] [facility] Internal Medicine - Family MedicineStart: 04-20-2025 End: 86-40-0856Ayaphm-up kbwhriods33/08/2025 8:45 AM EDT Follow Up Anticoagulation [facility] Medication Management [address] [place] [address] EihMsvlthProMedica Memorial Hospital Pharmacy Medication ManagementStart: 03-23-2025 End: 67-18-2401Ipmhygj encounter procedureNOMS SWS NEURComment on above:Arrived Start: 03-23-2025 End: 54-79-7999Hyalgh-up wuesebpju35/11/2025 9:00 AM EDT Follow Up Anticoagulation [facility] Medication Management [address] [place] [address] LziJftscbCleveland Clinic Foundation - Pharmacy Medication ManagementStart: 03-06-2025 End: 75-86-1116Dclssbmcd jaemnuz9703/06/2025 1:00 PM EDT Support Visit [facility] - Diabetes and Nutrition Education [address] [place] [address] Alexander Chen, DO [address] [place] [address] Zoe Norris LD [facility] Diabetes and Nutrition EducationStart: 02-16-2025 End: 19-71-7525Lavsob-up zgiebmgfs90/06/2025 8:45 AM EDT Follow Up Anticoagulation [facility] Medication Management [address] [place] [address] LxoCvnsvbCleveland Clinic Foundation - Pharmacy Medication ManagementStart: 01-29-2025 End: 62-07-3985Awmjrpr encounter dxiqeijim31/19/2025 1:00 PM EDT [facility] [address] [place] [address] Alexander Chen DO [address] [place], [id number] [facility] Internal Medicine - Family MedicineStart: 01-19-2025 End: 37-76-4456Scsljy-up tqqgstnos72/09/2025 8:45 AM EDT Follow Up Anticoagulation [facility] Medication Management [address] [place] [address] EofYkmlfeCleveland Clinic Foundation - Pharmacy Medication ManagementStart: 01-15-2025 End: 91-35-1624Xolmhgk encounter dekjpuqne96/05/2025 1:00 PM EDT Office Visit [facility] [address] [place] [address] Olimpia Shepherd, [employer]SEMBLER [address], [facility] [address] [place] [address] ArrivedNOMS [facility] NEURComment on above: ArrivedStart: 01-05-2025 End: 37-40-0891Ajtsfgz encounter keaokxorr87/25/2025 10:30 AM EDT Office Visit [facility] [address] [place] [address] Mauro Levin MD [address] [facility] [address] [place] [address] [facility] SWS NEURStart: 12-22-2024 End: 50-16-9348Bkrobd-up epatwxzlr62/11/2025 9:15 AM EDT Follow Up Anticoagulation [facility] Medication Management [address] [place] [address] BbzRjmlpzCleveland Clinic Foundation - Pharmacy Medication ManagementStart: 11-24-2024 End: 07-75-2210Waenlx-up /14/2025 9:15 AM EDT Follow Up Anticoagulation [facility] Medication Management [address] [place] [address] [facility]TnclymGal[facility] - Pharm[facility] Medication ManagementStart: 10-27-2024 End: 52-34-8354Gaebcl-up encounterSouthview Medical Center Medication Therapy ManagementStart: 09-29-2024 End: 34-32-2150Zzromp-up wxceeinew39/17/2025 9:00 AM EST Follow Up Anticoagulation [facility] Medication Therapy Management [address] [place] [address] CszZhgppwSouthview Medical Center Medication Therapy ManagementStart: 09-22-2024 End: 72-59-7315Njvczld encounter ynlqpkzck98/10/2025 10:30 AM EST Office Visit [facility] [address] [address] Mauro Levin MD [address] [facility] [address] [address] ArrivedNO SWS NEURComment on above: ArrivedStart: 09-20-2024 End: 79-38-1258Volhlz-up /08/2025 9:15 AM EST Follow Up Anticoagulation [facility] Medication Therapy Management [address] [place] [address] LzhXymaokSouthview Medical Center Medication Therapy ManagementStart: 09-15-2024 End: 58-83-9458Judpuie encounter aqzqpbngv52/03/2025 8:00 AM EST Appointment [facility] Pulmonary Function [address] [place] [address] Alexander Chen, DO [address] [place] [address] [facility] Pulmonary FunctionStart: 09-01-2024 End: 41-63-3465Ifzhpja encounter maybcuhrn65/20/2024 10:10 AM EST Office Visit [facility] NEUR [address] [place] [address] Mauro Levin MD [address] [facility] [address] [id number] [facility] NEURStart: 41-46-0772Owmtqndex for malignant neoplasm of breastMammogramNODE HealthcareStart: 06-26-2024 End: 13-54-9991UN Breast - bilateral ScreeningBilateral screening mammogram Imaging Routine Breast cancer screening by mammogram Expected: 06/26/2024 (Approximate), Expires: 08/26/2025[facility] Work Phone: comment on above:Expected: 06/26/2024 (Approximate), Expires: 08/26/2025Start: 06-26-2024 End: 43-01-0046Gxwyuxs encounter procedureNOMS BCP OBComment on above:Arrived Start: 53-70-8350IEOUV-19 Vaccine ( season)COVID-19 Vaccine ( season)[facility] SystemStart: 23-74-2870Ihqkwpfyz vaccination Influenza Vaccine (#1)[facility] HealthcareStart: 78-42-5359Hroexxofs complement CH50 [facility] CenterStart: 80-16-8212Ehbtypsfk complement CH50 [facility] CenterStart: 29-64-3633Crcidfiyk complement CH50 [facility] CenterStart: 05-50-3094Euxoqhdrt vaccinationFlu vaccine (#1)[facility] HospitalStart: 02-37-0809KjnaifstzfTxhdfeTwin City Hospital PeriopStart: 00-87-0550Ivlbupx stimulating hormone measurementTSNational Park Medical Center HealthStart: 86-80-1418Awcslpeol vaccinationSEQUENTIAL INFLUENZA VACCINE (#1) [facility] Work Phone: Start: 45-73-6229Sconqqvdb for malignant neoplasm of breastBreast cancer screenProMedica Fostoria Community Hospital: 05-60-3762Amcbxjyg Vaccine (1 of 2) Shingles Vaccine (1 of 2)[facility] Hospitalart: 59-90-9729Yeqlcackt for malignant neoplasm of colonAkron Children'S HospitalStart: 34-12-4631Naarsiemf for malignant neoplasm of cervixAkron Children'S HospitalStart: 04-69-1752Ygcpbvnng for malignant neoplasm of cervix Pap smearAkron Children'S HospitalStart: 14-50-9895BDyY,Tdap and Td Vaccines (1 - Tdap) DTaP,Tdap and Td Vaccines (1 - Tdap)[facility] Centertart: 1980 DTaP/Tdap/Td vaccine (1 - Tdap)DTaP/Tdap/Td vaccine (1 - Tdap)[facility] Hospitalart: 70-99-5621Zwudz BMI Follow Up PlanAdult BMI Follow Up PlanAtrium Health Carolinas Medical Centertart: 65-80-7923Ocpnsgiv foot examinationDiabetic Foot ExamAtrium Health Carolinas Medical Centertart: 54-91-7044PKQ screeningHIV [facility]: 93-99-8924Momymoobij MonitoringDepression MonitoringOhioHealth O'Bleness Hospitalart: 01-29-4738Dfvhz panelLipid screenOhioHealth O'Bleness Hospitalart: 15-42-5226JPZHH-19 Vaccine (1)COVID-19 Vaccine (1)[facility] HospitalStart: 43-96-2151Giuzdzfl screeningDiabetic Ophthalmology ExamAtrium Health Carolinas Medical Centertart: 05-81-3566Cjyjunvhh C screening Hepatitis C screenOhioHealth O'Bleness Hospitalart: 86-61-4491Egkvuwmwb for malignant neoplasm of colonNOSaint Luke's East HospitalStart: 44-95-1983LSUHEJEVE C SCREENINGHEPATITIS C SCREENINGShelby [facility] Hospital Work Phone: Start: 93-09-3758Hbclqxnmj colonoscopyCOLONOSCOPY [facility] Work Phone: Start: 52-25-2959Vjdoqmani for malignant neoplasm of cervixPAP SMEAROhWVUMedicine [facility] Work Phone: Start: 48-44-4661Exuxjvn vaccinationTETANUS EVERY 10 YROhSedia Biosciences Work Phone: End: 64-11-5247EwxruarbfdbNvfuwonfoty GI Routine Special screening for malignant neoplasm of colon 1 Occurrences starting 01/29/2025 until 01/29/2026[facility] HospitalCoda Payments Caro CenterComment on above:1 Occurrences starting 01/29/2025 until 01/29/2026 ColonoscopyCOLONOSCOPY DIAGNOSTIC / SCREENING Personal history of adenomatous and serrated colon polypsMemorial Health System Selby General HospitalComplement C3 [Mass/volume] in Serum or [facility] HospitalComplement C3 [Mass/volume] in Serum or [facility] HospitalComplement C3 [Mass/volume] in Serum or [facility] HospitalComplement C4 [Mass/volume] in Serum or [facility] HospitalComplement C4 [Mass/volume] in Serum or [facility] HospitalComplement C4 [Mass/volume] in Serum or [facility] HospitalECG 12 LeadECG 12 Lead Routine Pre-op exam Ordered: 10/21/2017[employer] Work Phone: [phone] A1c Routine 10/21/2017 12:20 PM EST [employer] Work Phone: End: 35-69-3795Szyajjtwla A1c/Hemoglobin.total in BloodHemoglobin A1c Lab Routine IFG (impaired fasting glucose) 1 Occurrences starting 01/29/2025 until 01/29/2026[facility] HospitalAtheroMed Work Phone: Comment on above:1 Occurrences starting 01/29/2025 until 01/29/2026Hemoglobin A1c/Hemoglobin.total in BloodHemoglobin A1c Lab Routine IFG (impaired fasting glucose) 01/29/2025 1:50 PM [employer] End: 83-11-1390Rlwwq [facility] Work Phone: Comment on above:Once for 1 Occurrences starting 12/10/2021 until 12/10/2021Nicotine and Metabolites, BloodNicotine and Metabolites, Blood Routine 10/21/2017 12:20 PM ESTWaVirtualSharp Software Work Phone: THIN PREP TIS PAP AND HR HPV DNATHIN PREP TIS PAP AND HR HPV DNA Pathology and Cytology Routine Well woman exam with routine gynecol ogical exam Ordered: 06/26/2024[facility] CenterComment on above:Ordered: 06/26/2024Vitamin D, Total, 25-OHVitamin D, Total, 25-OH Routine 10/21/2017 12:20 PM ESTWaVirtualSharp Software Work Phone: Immunizations Immunization DateImmunizationNotesCare CzqemwgyYcnftliv43-24-1704Zmbncqja trivalent influenza vaccine, adjuvanted, preservative free[address]11-07-2024influenza virus vaccine, unspecified formulation[address]11-10-2023influenza virus vaccine, unspecified formulationJENNIFER GERRY [facility]11-10-2023influenza, injectable, quadrivalent, preservative free[address] Work Phone: [phone]-WtQ-3 (COVID-19) mRNA-1273 vaccine ANDRE GERRY [facility]05-04-2021SARS-CoV-2 (COVID-19) mRNA-1273 vaccineJENNIFER GERRY [facility] HospitalComment on above:Result Comment: 2022-08-25: LIG0073-80-3600UYNQH-17, mRNA, LNP-S, PF, 100mcg/0.5mL DosePmh [address] [place], [place] [address]04-08-2021 SARS-CoV-2 (COVID-19) mRNA-1273 vaccineJENNIFER GERRY [facility]04-07-2021COVID-19, mRNA, LNP-S, PF, 100mcg/0.5mL DosePmh [address] [place], [place] [address]Blzuym71-82-2807yiezsujgy virus vaccine, unspecified formulationJENNIFER GERRY [facility]09-22-2020influenza virus vaccine, unspecified formulationJENNIFER GERRY [facility]09-22-2020influenza, seasonal, injectablePmh [address] [place] [address] 93-63-1290jrctkhssz, seasonal, injectablePmh [address] [place], [place] [address]10-15-2019 zoster vaccine recombinantJENNIFER GERRY [facility]08-28-2019influenza, injectable, quadrivalent, preservative freePmh 2 [facility]08-13-2019zoster vaccine recombinantJENNIFER GERRY [facility]10-14-2018influenza virus vaccine, unspecified formulationJENNIFER GERRY [facility]10-14-2018influenza, injectable, quadrivalent, preservative freePmh 2 [facility] HospitalXxiyvo85-52-7527pzupdenhl virus vaccine, unspecified formulationJENNIFER GERRY [facility]10-01-2018influenza, injectable, quadrivalent, contains preservativeh [address] [place], [place] [address]Xoqqfa20-04-6368mjefzqqwmuzk conjugate vaccine, 13 valent ANDRE GERRY [facility]10-02-2017influenza virus vaccine, unspecified formulationJENNIFER GERRY [facility]10-02-2017influenza, seasonal, injectable, preservative freePmh 2 [facility] HospitalFntfbd24-07-1380rwmrvcnve virus vaccine, unspecified formulationPmh [address] [place], [place] [address]Nghvrz73-01-6428oqpuhgqgr, seasonal, injectable, preservative free[address] Payers DatePayer CategoryPayerPolicy [id number] 2021 Department of Defense ( and others)[id number] of Defense ( and others) FOR LIFE [id number] 2006-Present [address] [place] [address].2.840.774956.1.13.693.2.7.3.714380.59995-20-1912WOKCRJW ()1.2.840.625553.1.13.693.2.7.9.693188.274666.315 2004Medicare [id number] 2.16.840.1.621102.3.249.13 2004Medicare 1.2.840.087673.1.13.693.2.[id number] 2.840.1.627891.3.579.2.41512-89-8965Uuagkvl44311644 2.16.840.1.430379.3.57[id number] 2.16.840.1.054803.3.57[id number] 2.16.840.1.922081.3.579.2.31457-43-5080Kqlxvny85871890 2.16.840.1.858045.3.579.2.50080-42-5027Glmeusx7659237 2.16.840.1.202949.3.579.2.62160-93-5780Jdraxqd3863607 2.16.840.1.271170.3.579.2.50682-83-3426Sxjarlw0170816 2.16.840.1.442483.3.579.2.48823-89-9104Ogjoauu04475806 2.16840.1.049612.3.579.2.424518-69-0313Wwxfyre01566879 2.16840.1.207055.3.579.2.997581-30-1787Cgooebe45743859 2.840.1.615652.3.579.2.45284-76-5216Pvmcves08213395 2.840.1.041203.3.579.2.52087-86-6118Shmzgqv21691859 2.840.1.027899.3.579.2.36265-04-0670Zftkhfq52848611 2.840.1.702277.3.579.2.53695-76-1276Kmcesld36542793 2.840.1.128804.3.579.2.85587-19-7818Rftdavm74768307 2.840.1.593855.3.579.2.15059-36-8081Hzexotf89443123 2.840.1.798713.3.579.2.00875-70-0149Pcueiia66657557 2.840.1.322420.3.579.2.13712-94-1471Hrajiyb19381532 2.16840.1.002562.3.579.2.44728-15-8883Utgqiiq405380082 2.840.1.848581.3.579.2.801158-00-5699Fipisgk11992757 2.16840.1.731087.3.579.2.839260-45-8516Qddgdtz92101484 2.16840.1.773499.3.579.2.743797-81-0460Ycsxrcg36007278 2.16840.1.690218.3.579.2.130954-79-1092Ovejhcm7974699 2.16840.1.107601.3.579.2.157906-71-5554Tjbtigz3891906 2.840.1.219294.3.579.2.007213-75-0554Ejfbfhi0879151 2.840.1.702271.3.579.2.923998-06-2012Mscqpjy0674237 2.840.1.164706.3.579.2.539152-31-5346Yqmfwcp64789344 2.840.1.659845.3.579.2.73378-53-1585Seaetzk95435630 2.840.1.843000.3.579.2.21331-14-4704Bzzdkaz72950379 2.840.1.593754.3.579.2.72152-75-5274Odovbpi93939247 2.16840.1.386770.3.579.2.61429-45-2500Kxkokqg08997045 2.840.1.631498.3.579.2.79276-61-1847Hodooyi293192993 2.16840.1.982973.3.579.2.64717-40-1405Mntocdl596189579 2.16840.1.169440.3.579.2.38078-58-3327Orngtqp077440052 2.16840.1.997128.3.579.2.00640-09-7752Yyupmhi148175716 2.16.840.1.729283.3.579.2.072974-99-8006Vulcceg262956888 2.16840.1.802269.3.579.2.423456-87-3341Qxoiryy588200168 2.16840.1.858366.3.579.2.028042-22-6558Cjeqcka905901572 2.16840.1.744067.3.579.2.174810-46-1975Dmdfior886405891 2.840.1.439502.3.579.2.991487-04-2055Ohdthyp391130130 2.840.1.750282.3.579.2.166570-62-6729Hulpjne709854397 2.840.1.405789.3.579.2.512933-42-6862Tpkeqgn394336736 2.840.1.270401.3.579.2.094265-11-3744Pteutlf215752664 2.840.1.112747.3.579.2.750437-75-7210Umnqued744158210 2.840.1.509173.3.579.2.014406-61-3481Aliwyjh194694950 2.840.1.160848.3.579.2.371577-27-5589Qkunthe417827441 2.16840.1.073139.3.579.2.719362-39-6973Nubrxkv157152597 2.16840.1.938516.3.579.2.567502-21-5047Fakxuox510215777 2.16.840.1.875742.3.579.2.889156-94-9197Kvirvte09654043 2.16.840.1.673594.3.579.2.534630-99-0722Vkudtvc15564430 2.16.840.1.998183.3.579.2.158846-14-3697Imdbjdv13098617 2..840.1.072935.3.579.2.939786-73-2359Rdstfff21107372 2.16.840.1.035083.3.579.2.1286 [id number] 1960Unknown [id number] 2.16.840.1.467406.3.249.13Medicarexxxxxxxxxx 2.16.840.1.715944.3.249.13Unknownxxxxxxxxx 2.16.840.1.849925.3.249.13Unknown [id number] 2.16.840.1.670578.3.579.2.069Sdlvmtn91947426 2.16.840.1.398643.3.579.2.531 Social History DateTypeDetailFacilityStart: 11-09-2017 End: 56-04-7158Hjaywgr smoking status NHISNeBerger HospitalStart: 47-68-4572Unx Assigned At BirthNot on [facility] Medical CenterSedia Biosciences Work Phone: Start: 37-74-8453Akmlxte smoking statusNeverExecutive [facility] BellParkview Health Bryan Hospitaltart: 05-26-2024 End: 90-06-7936Lrm Assigned At [facility] Andersontart: 26-40-8073Oya Assigned At [facility] Hospitaltart: 08-19-2022 End: 69-31-1434Onyixox use and exposureSmokeless tobacco non-userNODE Healthcare Start: 05-26-2024 End: 30-77-8251Mwbhcovca beverage intakeLifetime non-drinker (finding)[facility] HealthcareStart: 05-26-2024 End: 64-99-5313Nizpblp of Social functionNODE HealthcareStart: 06-11-2023 Hbmrgfwey66EMEB HealthcareStart: 96-83-4590Sewiavy Commentcaffeine: 1-2 cups per dayINTERMOUNTAIN HEALTHCARE HealthcareStart: 93-91-4885Lzlpaw identityIdentifies as female gender (finding)[facility] HealthcareStart: 07-20-2024 End: 32-78-0571Iqnkxjxan beverage intakeCurrent non-drinker of alcohol (finding) [facility] SitesimonHas the Comfy, gas, oil, or water [employer] threatened to shut off services in your home in past 12MoNMercy Memorial Hospital SystemAre you now , , , , never or living with a partner?WidowedSumma Health Barberton Campus [employer] Caro CenterHow often to you have a drink containing alcohol?NeverProHale County Hospital [employer] Caro CenterDo you feel stress - tense, restless, nervous, or anxious, or unable to sleep at night because yourmind is troubled all the time - these days [OSQ]Only a littleSumma Health Barberton Campus Xillient Communicationstart: 74-00-8021WynSwecue (finding)[facility] Sitesimon Medical Equipment Procedure CodeEquipment CodeEquipment Original TextEquipment IdentifierDates Liner 32mm C Flat [place] Mpact - [id number]: 54-23-8170Uldhi 48mm 2hl Acet Mpact - [id number]: 72-95-1246Hvza Sz2 Std Fem Prox Coat Ti Amistem-H - [id number]: 65-85-3865Muzx 32mm +4 Fem Biolox Delta Mectacer - [id number] Start: 11-09-2017 Goals DatePatient GoalDesired Activity/StatePersonal health goalComment on above: Evaluation of progress towards goal: transfer to [facility] for med adjustments Personal health goal Functional Status TbycOjvfphlnplEcdwplFgczayxa72-22-8037Clesjgqkpu StatusN/AExec[facility]12-13-2022Functional StatusN/AExec[facility] Clinical Notes 08-25-2022 to 07-03-2025 Note Date & CyicVwynSkrnrwgl37-74-9569 History of Present illness Narrative* Luz Marina De Santiago [facility] - 07/03/2025 9:00 AM EDT 15 minute wmye-og-juvc follow-up anticoagulation appointment. INR performed in office [...] dizziness, lightheadedness, etc. Instructed to call Dr. Chen given recent polp removal Upcoming procedures: No Anticoagulant prescription needed: No Seen referring provider in the last year Duration of therapy reviewed Patient could benefit from [facility] pill packaging and patient is agreeable forreferral to be sent: No Assessment: INR has returned to range. Stop Lovenox. Patient was instructed to call Dr. Chen to discuss the blood in her stools [...] persists or worsens. Luz Marina De Santiago [facility] 10/21/25 0900 documented in this [facility]10-03-2025 Miscellaneous Notes* Telephone Encounter - Jessa Rojo - 06/15/2025 10:24 AM EDT Patient called to inform that all the Lovenox that she had at home has . She needs a RX for the Lovenox 100 mg sent to [facility] P:[phone]. For all doses for her bridging. * Telephone Encounter - Luz Marina De Santiago RP - 06/15/2025 10:24 AM EDT Noted. Lovenox sent to [facility] per request. Luz Marina De Santiago PharmD, [facility] June 15, 2025 11:26 AM documented in this encounterMemorial [facility]10-[facility]-2025 Telephone encounter Note* Telephone Encounter - Jessa Rojo - 06/15/2025 10:24 AM EDT Patient called to inform that all the Lovenox that she had at home has . She needs a RX for the Lovenox 100 mg sent to [facility] P:[phone]. For all doses for her bridging. [facility]10-03-2025 Telephone encounter Note* Telephone Encounter - Luz Marina De Santiago [facility] - 06/15/2025 10:24 AM EDT Noted. Lovenox sent to [facility] per request. Luz Marina De Santiago PharmD, [facility] June 15, 2025 11:26 AM Electronically signed by Luz Marina De Santiago [facility] at 06/15/2025 11:26 AM EDT [facility]09-29-2025 Note [id number]#[id number] Clinic [facility]09-26-2025 [facility] SURGERY Clinical Discharge Summary PERSON INFORMATION Name NOEMI BRAND Age 65 Years 1960 Sex FEMALE Language Kuwaiti PCP ALEXANDER CHEN Marital Status Med Service Pain Management Surgery Acct# Arrival 06/08/2025 09:09:03 Visit Reason Lumbosacral Spondylosis Acuity LOS 009 22:45 Address: [address] [place] [address] Comment: PROVIDER INFORMATION VITALS INFORMATION Vital Sign Triage Latest Temp Oral Temp Temporal Temp Intravascular Temp Axillary Temp Rectal 02 Sat Respiratory Rate Peripheral Pulse Rate Apical Heart Rate Blood Pressure / / Comment: MEDICAL INFORMATION Allergy Info: Trintellix; Latuda; meloxicam; sevelamer; Zoloft; predniSONE; amoxicillin; lithium; erythromycin Prescriptions Given: [...] (given by mouth) every day. cyanocobalamin (Vitamin B12 1000 mcg oral tablet) 1 tab(s) Oral (given by [...] (given by mouth) 2 times per day. propranolol (propranolol 60 mg oral capsule, extended release) 1 cap(s) Oral (given by mouth) 2 times per [...] tab(s) Oral (given by mouth) every day. verapamil (verapamil 80 mg oral tablet) warfarin (Coumadin) 5 Milligram every day. zolpidem [...] (given by mouth) every day. cyanocobalamin (Vitamin B12 1000 mcg oral tablet) 1 tab(s) Oral (given by [...] polyunsaturated fatty acids (Fish Oil) 2400mg daily. panto (more content not included)...Cleveland ClinicZlrovwzn78-00-0197 Note [id number] The patient?s history of present illness, physical findings and plan of care have been reviewed. There are no changes. [Electronically Signed on: 06/08/2025 09:40 EDT] LINA SCHWAB MD [Electronically Signed on: 06/08/2025 09:35 EDT] Trista Menezes RN [Verified on: 06/08/2025 09:40 EDT] LINA SCHWAB MD [Transcribed on: 06/07/2025 10:37 EDT] [facility]09-25-2025 History of Present illness Narrative* Luz Marina Yvonne De Santiago, [facility] - 06/07/2025 10:30 AM EDT 15 minute [id number] follow-up anticoagulation appointment. INR performed in office per protocol. INR 2.3 (goal range: 2.0-3.0). Patient reports: Taking warfarin dosing as documented. Missed or extra doses of warfarin: No Changes to medications: No Changes to lifestyle (diet / alcohol / smoking / activity): No Recent emergency department visit / hospitalization / health changes / new contraindication to current anticoagulant: No Signs/symptoms of bruising/bleeding or clotting or any intolerable adverse events: No Upcoming procedures: YES 06/29- Colonoscopy with Dr. Chen whom is referring provider. Will will hold x5 days per protocol and bridge with Lovenox per referral (extensive clotting history) Will route to Dr. Chen as to ensure he is agreeable to plan Patient reports she has plenty of Lovenox 100 mg on hand at home Anticoagulant prescription needed: No Seen referring provider in the last year Duration of therapy reviewed Patient could benefit from [facility] pill packaging and patient is agreeable forreferral to be sent: No Assessment: INR is remaining stable in therapeutic [...] persists or worsens. Luz Marina De Santiago [facility] 06/07/25 1137 Electronically signed by Luz Marina De Santiago [facility] at 06/07/2025 11:37 AM EDT * Luz Marina De Santiago [facility] - 06/07/2025 10:30 AM EDT Images from the original note were not included. Bridge plan is as follows: Luz Marina De Santiago [facility] 06/07/25 1137 Electronically signed by Luz Marina De Santiago [facility] at 06/07/2025 11:37 AM EDT documented in this [facility]09-16-2025 Miscellaneous Notes* Telephone Encounter - Kimber Anderson MA - 05/29/2025 10:46 AM EDT Patient called. She is scheduled for a procedure on 06/08/25 to burn the nerve endings in the back on both sides with Dr. Nilesh Schwab at [facility] (P: [phone]). She does not need to hold her Warfarin, however needs an INR drawn the day before. The INR needs to be 3.0 or below. Her INR appointment was r/s from 06/01 to 06/07/25. Patient states Dr. Schwab sent clearance to Dr. Chen. Contactpatient at [phone] with any questions. * Telephone Encounter - Luz Marina De Santiago [facility] - 05/29/2025 10:46 AM EDT Noted. INR has been running on the high end of range, therefore recommend taking 2.5 mg on 06/05 to help ensure INR goal is met. Called patient at [phone] with one time dose adjustment. Patient v/u of this change. Encouraged to call with any further needs. Luz Marina De Santiago PharmD, BCPS May 29, 2025 12:45 PM Electronically signed by Luz Marina De Santiago [facility] at 05/29/2025 12:45 PM EDT documented in this [facility] Telephone encounter Note* Telephone Encounter - Kimber Anderson MA - 05/29/2025 10:46 AM EDT Patient called. She is scheduled for a procedure on 06/08/25 to burn the nerve endings in the back on both sides with Dr. Nilesh Schwab at [facility] (P: [phone]). She does not need to hold her Warfarin, however needs an INR drawn the day before. The INR needs to be 3.0 or below. Her INR appointment was r/s from 06/01 to 06/07/25. Patient states Dr. Schwab sent clearance to Dr. Chen. Contactpatient at [phone] with any questions. [facility] [employer] [id number] Telephone encounter Note* Telephone Encounter - Luz Marina De Santiago [facility] - 05/29/2025 10:46 AM EDT Noted. INR has been running on the high end of range, therefore recommend taking 2.5 mg on 06/05 to help ensure INR goal is met. Called patient at [phone] with one time dose adjustment. Patient v/u of this change. Encouraged to call with any further needs. Luz Marina De Santiago, Lovely[employer], [facility] May 29, 2025 12:45 PM Electronically signed by Luz Marina De Santiago [facility] at 05/29/2025 12:45 PM EDT [facility] Work Phone: [phone] History of Present illness Narrative* Hossein Wong, [facility] - 04/20/2025 8:45 AM EDT 15 minute shyc-qv-qypw follow-up anticoagulation appointment. INR performed in office [...] Duration of therapy reviewed Assessment: INR remains therapeutic today. No dose change. Check INR in 6 weeks Plan: Patient instructed to continue warfarin 2.5 mg Mon and 5 mg AOD. Check INR in 6 week(s). Patient verbalizes understanding of anticoagulant dosing instructions and information discussed. Dosing regimen, counseling, and follow-up appointment were provided to the patient. Patient reminded to call with questions or any medication changes. Patient instructed to seek medical attention if anymajor bleeding/bleeding that persists or worsens. Hossein Wong RPH 04/20/25 0848 documented in this encounterMem[facility] History of Present illness Narrative* Mauro Levin MD - 03/23/2025 11:30 AM EDT Images from the original note were not included. CHIEF COMPLAINT REASON FOR VISIT : a follow up to her migraines. Subjective Noemi Brand is a 64 y.o. female who presents for headaches History of Present Illness The patient presents for evaluation of headaches. She reports a significant improvement in her headaches, which now occur approximately once a week, a marked decrease from their previous daily or exjma-cqbfp-aip frequency. She continues to receive [facility], although she skipped the most recent one due to the absence of any issues. Her sleep quality is good. She attributes this improvement to the use of verapamil. When she does experience a headache, Ubrelvy provides effective relief. She hasonly needed to take Fioricet once. She has been diagnosed as prediabetic and is under observation for this condition. Her appetite remains stable. SOCIAL HISTORY: Sleep: Good sleep quality MEDICATIONS CURRENT MEDS: Verapamil Ubrelvy PREVIOUS MEDS: Fioricet Review of Systems Const: Denies appetite change, fever, chills. Allergy: Denies medication reaction. Ocular: Denies visual acuity change. ENT: Denies hearing change. Endoc: Denies weight loss. Resp: Denies dyspnoea, wheezing. Cardiac: Denies angina, palpitations. GI: Denies nausea, vomiting. Haem: Denies bleeding. : Denies incontinence. MSK: Denies arthralgias, joint oedema. Derm: Denies rash, hair loss. Neuro: Denies ataxia, tremor. Also see HPI for elements of ROS documented therein and for details of positive findings, which shall supersede the foregoing. Objective Blood pressure 138/86, height 5' 5 , weight 216 lb. Physical Exam Motor Examination Muscle Bulk and Tone: Normal muscle bulk and tone. Strength: Hand strength is normal. Leg strength is normal. Neck: Neck range of motion is normal. Results Assessment & Plan 1. Headaches: these are episodic migrain now and were chronic migraines prior. No aura is noted andthey can be intractable at times Her migraines have shown significant improvement with the current treatment regimen. Verapamil has effectively reduced the frequency of her headaches to approximately once a week. Ubrelvy has been successful in managing the headaches when they occur. A prescription for a 90-day supply of verapamil and Ubrelvy will be sent to [facility]. She is advised to continue her current treatment plan. 2. Prediabetes. She reports experiencing blurry vision, which is being monitored as part of her prediabetes management. 3. I will consider an electromyograph evaluation of the lower extremities to assess for nerve damage such as lumbar radiculopathy, lumbar plexopathy, or peripheral neuropathy which can be seen in herdiabetes. 4. Verapamil 8 mg a day for headache prevention. 5. Ubrelvy 100 mg can be taked at headache onset and repeated in 2 hours times two total doses in 24 hours. 6. I counseled the patient on the possible side effects and interactions of medications. Follow-up A follow-up visit is scheduled in 4 months. This clinical note was created utilizing [employer] documentation system. All information has beenthoroughly reviewed, corrected as necessary, and authenticated by the provider to ensure accuracy and completeness. On occasion, [employer] documentation system erroneously drops words or replaces aspoken word with a similar sounding word. Please notify with any questions or concerns regarding this clinical note. documented in this encounterBothwell Regional Health [id number] History of Present illness Narrative* Hossein Wong RP - 03/23/2025 9:00 AM EDT 15 minute icnp-la-tpvy follow-up anticoagulation appointment. INR performed in office per protocol. INR 2.9 (goal range: 2.0-3.0). Patient reports: Taking warfarin dosing as documented. Missed or extra doses of warfarin: No Changes to medications: No Changes to lifestyle (diet / alcohol / smoking / activity): Yes Pt having an iceberg lettuce salad 3-4xweek due to PreDM dx Recent emergency department visit / hospitalization / health changes / new contraindication to current anticoagulant: No Signs/symptoms of bruising/bleeding or clotting or any intolerable adverse events: No Upcoming procedures: No Anticoagulant prescription needed: No Seen referring provider in the last year Duration of therapy reviewed Assessment: INR remains therapeutic today. Pt has been eating salads 3-4x/week for the last 2 weeks, but no impact on INR at this point. No dose change. Check INR in 4 weeks Plan: Patient instructed to continue warfarin 2.5 mg Mon and 5 mg AOD. Check INR in 5 week(s). Patient verbalizes understanding of anticoagulant dosing instructions and information discussed. Dosing regimen, counseling, and follow-up appointment were provided to the patient. Patient reminded to call with questions or any medication changes. Patient instructed to seek medical attention if anymajor bleeding/bleeding that persists or worsens. Hossein Wong RPH 03/23/2507 documented in this [facility]07-11-2025 Miscellaneous Notes* Addendum Note - Hossein Wong RPH - 03/23/2025 9:00 AM EDTAddended by: HOSSEIN WONG on: 03/23/2025 09:20 AM Modules accepted: Orders documented in this [facility]07-11-2025 Note* Addendum Note - Hossein Wong RPH - 03/23/2025 9:00 AM EDTAddended by: HOSSEIN WONG on: 03/23/2025 09:20 AM Modules accepted: Orders [facility]06-24-2025 History of Present illness Narrative* MAYTE Workman - 03/06/2025 1:00 PM EDT OUTPATIENT NUTRITION CONSULTATION- ADULT Date: 03/06/25 Time in: 1:00 Time out: 2:00 Patient Noemi Brand Age () 64 y.o. (1960) Sex female Accompanied by alone Reason for Visit: Chief Complaint Patient presents with MNT - Individual Assessment: Height/Weight: Today's BMI Body mass index is 34.86 kg/m . BMI Category Obese class 1 (30.00- 34.99) Height Height: 167.6 cm (5' 6 ) Weight Wt Readings from Last 3 Encounters: 03/06/25 98 kg (216 lb) 01/29/25 98.4 kg (216 lb 14.4 oz) 07/20/24 96.8 kg (213 lb 6.4 oz) [place] Body Weight Black[place] body weight: 59.3 kg (130 lb 11.7 oz) Adjusted ideal body weight: 74.8 kg (164 lb 13.4 oz) Lab Results: POCT A1c No results found for: ULITHQD4J A1c Lab Results Component Value Date HGBA1C 6.6 (H) 01/29/2025 C-Peptide No results found for: CPEPTIDE Kidney No results found for: ALBCREATRA Lab Results Component Value Date GLU 115 (H) 02/16/2025 K 4.2 02/16/2025 BUN 16 02/16/2025 CREATININE 0.92 02/16/2025 Lipid Panel Lab Results Component Value Date CHOL 216 (H) 01/29/2025 Lab Results Component Value Date HDL 49 01/29/2025 Lab Results Component Value Date LDLCALC 100 01/29/2025 Lab Results Component Value Date TRIG 335 (H) 01/29/2025 No results found for: CHOLHDL Hgb Hemoglobin Date/Time Value Ref Range Status 02/16/2025 09:04 AM 13.0 11.7 - 15.5 g/dL Final Psychosocial / Economic Comments: Pt reports she lives alone and does not cook much. 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 She states she does not exercise much and sherecently hurt her knee thus making it a bit harder. Nutrition/Diet Counseling: Prior Nutrition Counseling Prior nutrition counseling was not provided. 1500 kcal Estimated Energy Needs 1500 kcals daily Diet History Revealed Energy Intake: Excessive Total Fat Intake: Excessive Sodium Intake: Inconsistent Fiber Intake: Inconsistent Carbohydrate Intake: Inconsistent Protein Intake: Inconsistent Food Recall Breakfast Time:: (Patient-Rptd) (P) 0700 Breakfast Meal:: (Patient-Rptd) (P) Boost drink Lunch Time:: (Patient-Rptd) (P) 1200 Lunch Meal:: (Patient-Rptd) (P) [place] Dinner Time:: (Patient-Rptd) (P) 1702 Dinner Meal:: (Patient-Rptd) (P) Corndogs Snack Time:: (Patient-Rptd) (P) 1830 Snack:: (Patient-Rptd) (P) Pretzel s Snack Time:: (Patient-Rptd) (P) 1253 Snack:: (Patient-Rptd) (P) Nothing What beverages do you consume and approxiate amount?: (Patient-Rptd) (P) Water Diagnosis: Excessive energy intake, Inconsistent carbohydrate intake, and Overweight/obesity Related to Uncertainty how to apply nutrition information As evidenced by Estimated energy intake from diet more than estimated energy needs Intervention: Nutrition Education: Patient was instructed on carbohydrate counting, healthy food selections, weight reduction, sourcesof fat, and sources of fiber Carbohydrate distribution provided to patient (if applicable): Breakfast Snack Lunch Snack Dinner Snack Carbohydrate 60 60 60 Total Kcal Recommended: 1500 (weight loss) Monitoring & Evaluation: Goals Eat 3 meals per day, Avoid sugar sweetened beverages, Exercise for 150 minutes per week, and Monitors portions Follow-Up Plan No return appointment scheduled. Department phone number provided for questions after session. Zoe Norris RD., LD. [facility] documented in this encounterMem[facility]06-[facility]-2025 History of Present illness Narrative* Hossein Wong, [facility] - 02/16/2025 8:45 AM EDT 15 minute lklw-ed-klzu follow-up anticoagulation appointment. INR performed in office per protocol. INR 2.6 (goal range: 2.0-3.0). Patient reports: Taking warfarin [...] Duration of therapy reviewed Assessment: INR is therapeutic today. No dose change. Check INR in 5 weeks Plan: Patient instructed to continue warfarin 2.5 mg Mon and 5 mg AOD. Check INR in 5 week(s). Patient verbalizes understanding of anticoagulant dosing instructions and information discussed. Dosing regimen, counseling, and follow-up appointment were provided to the patient. Patient reminded to call with questions or any medication changes. Patient instructed to seek medical attention if anymajor bleeding/bleeding that persists or worsens. Hossein Wong RPH 02/16/25 0850 documented in this encounterMem[facility]05-21-2025 Miscellaneous Notes* Telephone Encounter - Anabell Jackson - 01/31/2025 10:36 AM EDT We received a referral for education on Noemi Mcintosh Cathie 1960. However per CMS Guidelines we need to have the services requested marked as such on referral. Please see pended order and sign if you are agreeable. Thank you [facility] * Telephone Encounter - Anabell Jackson - 01/31/2025 10:36 AM EDT New referral signed documented in this [facility]05-21-2025 Telephone encounter Note* Telephone Encounter - Anabell Jackson - 01/31/2025 10:36 AM EDT We received a referral for education on Noemi Brand 1960. However per [facility] Guidelines we need to have the services requested marked as such on referral. Please see pended order and sign if you are agreeable. Thank you [facility]05-21-2025 Telephone encounter Note* Telephone Encounter - Anabell Simmsles - 01/31/2025 10:36 AM EDT New referral signed [facility]05-19-2025 History of Present illness Narrative* Alexander Chen, DO - 01/29/2025 1:00 PM EDT IM PROGRESS NOTE Patient - Noemi Brand Age - 64 y.o. - 1960 ASSESSMENT & PLAN 1. Essential hypertension (Primary) -goals of treatment reviewed with the patient. -home BP log reviewed with the patient and most are at goal -no change to current treatment with valsartan 80 mg daily 2. 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 Mixed hyperlipidemia -currently on atorvastatin 80 mg daily -most recent LDL 90 mg/dL, which is not at goal -repeat lipid panel to assess efficacy of treatment and make adjustments as needed. May need to addezetimibe. - Comprehensive metabolic panel; Future - Lipid profile; Future - Lipid profile - Comprehensive metabolic panel 4. IFG (impaired fasting glucose) -glucose ranges from 130-115 mg/dL over the past 3 years -repeat A1c to assess trends - Hemoglobin A1c; Future - Hemoglobin A1c 5. Obesity, morbid ([facility]) -overall stable -patient has multiple other problems requiring precedence 6. [place] [place]keep appointment with Psychiatry -current regimen including bupropion, BuSpar, and Ambien 7. Chronic deep vein thrombosis (DVT) of proximal vein of lower extremity, unspecified laterality [place] [place] -related to lupus anticoagulant disorder -on warfarin for long-term thromboembolism prophylaxis 8. Systemic lupus erythemat[place] [place] -stable -keep appointment with Rheumatology 9. Lupus anticoagulant disorder -on warfarin for long-term prevention of clotting disorder - CBC auto differential; Future - CBC auto differential 10. Mild persistent asthma without complication -no flare-ups in the past 6 months. -continue fluticasone-salmeterol twice daily 11. Gastroesophageal reflux disease, unspecified whether esophagitis present -patient on multiple medications to control reflux symptoms -did not tolerate a trial of backing down on metoclopramide -restart metoclopramide 10 mg t.i.d. -in the meantime we will start backing down on pantoprazole to 40 mg daily -will continue to decrease meds as able based on her symptoms - pantoprazole (PROTONIX) 40 mg EC tablet; Take 1 tablet (40 mg total) by mouth every morning before breakfast. TAKE 1 TABLET IN THE MORNING AND AT BEDTIME 12. Special screening for malignant neoplasm of colon -patient overdue for colon cancer screening -advised she is due this year. Colonoscopy ordered - Colonoscopy; Future - Colonoscopy Subjective 64-year-old female presents for recheck on multiple medical conditions. -hypertension. Currently taking valsartan, verapamil, propanolol. Blood pressures at home [id number] mmHg. No lightheadedness. Home BP log was reviewed. -taking her levothyroxine 50 mcg daily. Has not had any problems missing doses, or feeling like there has been any change in her overall thyroid function. -heartburn has been well controlled, but has been taking metoclopramide 10 mg t.i.d. once again, aswell as pantoprazole 40 mg twice daily and famotidine 40 mg daily. No dysphagia or bleeding. -her asthma has been well controlled without any flare-ups requiring urgent care, ED or office visits. Using her fluticasone-salmeterol inhaler daily without problems. -migraine headaches persist. Is now on multiple agents, and still has breakthrough. Taking Emgalityinjector for prophylaxis, as well as propanolol plus verapamil. In addition still needs to use Fioricet with codeine for relief. A review of systems was negative except for the following: General: weight gain Psychiatric: depression, memory difficulties, and mood swings Genito-Urinary: nocturia Neurological: headaches and impaired coordination/balance. Exam BP 126/60 (BP Site: Left Arm, BP Postition: Sitting, BP CUFF SIZE: L (13-17 inches)) Pulse 69 Temp 36.9 C (98.4 F) (Oral) Resp 18 Ht 167.6 cm (5' 5.98 ) Wt 98.4 kg (216 lb 14.4 oz) SpO2 98% BMI 35.03 kg/m Physical Exam Vitals reviewed. Constitutional: General: She is not in acute distress. Appearance: She is obese. She is not toxic-appearing. HENT: Head: Normocephalic. Right Ear: External ear normal. Left Ear: External ear normal. Nose: Nose normal. Comments: Over near ease with crusting and dry mucosa. Scant bleeding noted on the left. Mouth/Throat: Mouth: Mucous membranes are moist. Eyes: General: No scleral icterus. Comments: Wandering right eye. Can only see shadows out of the right eye at 3-4 feet. Can only read large print letters at 6 ft with the left eye Neck: Vascular: No carotid bruit. Comments: [...] albuterol (PROVENTIL HFA;VENTOLIN HFA) 90 mcg/actuation inhaler, USE 2 INHALATIONS EVERY 6 HOURS ASNEEDED FOR WHEEZING, Disp: 17 g, Rfl: 6 albuterol (PROVENTIL,VENTOLIN) 2.5 mg /3 mL (0.083 %) nebulizer solution, Inhale 3 mL (2.5 mg total) by nebulization 4 (four) times a day., Disp: 75 mL, Rfl: 1 aspirin 81 mg chewable tablet, Chew 1 tablet (81 mg total) and swallow., Disp: , Rfl: atorvastatin (LIPITOR) 80 mg tablet, TAKE 1 TABLET IN THE MORNING, Disp: 90 tablet, Rfl: 1 baclofen (LIORESAL) 10 mg tablet, TAKE 1 TABLET FOUR TIMES A DAY, Disp: 360 tablet, Rfl: 0 BIOTIN ORAL, Take 1 tablet by mouth in the morning and at bedtime., Disp: , Rfl: buPROPion XL (WELLBUTRIN XL) 300 mg 24 hr tablet, , Disp: , Rfl: busPIRone (BUSPAR) 10 mg tablet, Take 1 tablet (10 mg total) by mouth., Disp: , Rfl: lrdrkxvadz-eeuqtbbyiq-flj-cod (FIORICET WITH CODEINE) 33-613-32-30 mg per capsule, Take 1 capsule by mouth every 6 (six) hours as needed., Disp: , Rfl: cholecalciferol, vitamin D3, 5,000 units tablet, 1 tablet (5,000 Units total)., Disp: , Rfl: cyanocobalamin 1000 MCG tablet, take 1 tablet by mouth every morning, Disp: 90 tablet, Rfl: 1 diclofenac sodium (VOLTAREN) 1 % gel, APPLY 2 GM TOPICALLY IN THE MORNING, AT NOON, IN THE EVENING,AND BEFORE BEDTIME, Disp: 300 g, Rfl: 1 [...] 230-21 mcg/actuation inhaler, USE 2 INHALATIONS TWICE ADAY, Disp: 36 g, Rfl: 3 folic acid (FOLVITE) 1 mg tablet, TAKE 1 TABLET DAILY, Disp: 90 tablet, Rfl: 3 gabapentin (NEURONTIN) 300 mg capsule, 1 capsule (300 mg total)., Disp: , Rfl: galcanezumab-gnlm (EMGALITY PEN) 120 mg/mL pen injector, , Disp: , Rfl: icosapent ethyL (VASCEPA) 1 gram capsule, TAKE 1 CAPSULE IN THE MORNING AND 1 CAPSULE BEFORE BEDTIME, Disp: 180 capsule, Rfl: 3 levothyroxine (SYNTHROID, LEVOTHROID) 50 MCG tablet, TAKE 1 TABLET DAILY, Disp: 90 tablet, Rfl: 1 metoclopramide (REGLAN) 10 mg tablet, TAKE 1 TABLET IN THE MORNING AND 1 TABLET BEFORE BEDTIME, Disp: 180 tablet, Rfl: 0 montelukast (SINGULAIR) 10 mg tablet, TAKE 1 TABLET DAILY, Disp: 90 tablet, Rfl: 1 naltrexone (REVIA) 50 mg tablet, Take 1.5 mg by mouth in the morning., Disp: , Rfl: nystatin (NYSTOP) powder, APPLY 1 APPLICATION TOPICALLY TWICE A DAY NEEDED (RASH OR ITCHING), Disp: 60 g, Rfl: 2 propranoloL (INDERAL) 60 mg tablet, Take 1 tablet (60 mg total) by mouth in the morning., Disp: , Rfl: QUEtiapine (SEROquel) 400 mg tablet, Take 1 tablet (400 mg total) by mouth nightly., Disp: , Rfl: QUEtiapine (SEROquel) 50 mg tablet, Take 1 tablet (50 mg total) by mouth nightly., Disp: , Rfl: UBRELVY 100 mg tablet, Take 1 tablet by mouth., Disp: , Rfl: valsartan (DIOVAN) 80 mg tablet, TAKE 1 TABLET DAILY AT NOON, Disp: 90 tablet, Rfl: 0 verapamiL (CALAN) 80 mg tablet, Take 1 tablet (80 mg total) by mouth in the morning., Disp: , Rfl: warfarin (COUMADIN) 5 mg tablet, TAKE 1 TABLET IN THE EVENING, Disp: 90 tablet, Rfl: 3 zolpidem (AMBIEN) 10 mg tablet, , Disp: , Rfl: fcqpzxibhv-mduizdraujiwx-xtjl (FIORICET, ESGIC) 50-325-40 mg per tablet,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 only as told by your health care provider. ??? Ask your health care provider if the medicine prescribed to you requires you to avoid driving or using heavy machinery. Eating and drinking ??? Drink enough fluid to keep your urine pale yellow. You may be instructed to drink at least 8?10glasses of water each day. This will help you pass the kidney stone. ??? If directed, change your diet. This may include: ? Limiting how much sodium you eat. ? Eating more fruits and vegetables. ? Limiting how much animal protein you eat. Animal proteins include red meat, poultry, fish, and eggs. ? Eating a normal amount of calcium (1,000?1,300 mg per day). ??? Follow instructions from your health care provider about eating or drinking restrictions. General instructions ??? Collect urine samples as told by your health care provider. You may need to collect a urine sample: ? 24 hours after you pass the stone. ? 8?12 weeks after you pass the kidney stone, and every 6?12 months after that. ??? Strain your urine every time you urinate, for as long as directed. Use the strainer that your health care provider recommends. ??? Do not throw out the kidney stone after passing it. Keep the stone so it can be tested by your health care provider. Testing the makeup of your kidney stone may help prevent you from getting kidney stones in the future. ??? Keep all follow-up visits. You may need follow-up X-rays or ultrasounds to make sure that your stone has passed. How is this prevented? To prevent another kidney stone: ??? Drink enough fluid to keep your urine pale yellow. Thi (more content not included)...[facility]10-14-2024 History of Present illness Narrative* Jamia Aburto, HAM TRIMMER - 06/26/2024 2:00 PM EDT Reason for Appointment: Patient ID: Noemi Brand [...] (Wellbutrin XL) 300 MG 24 hr tablet bntvlftesf-qayubxjnfhszn-ynkpfpqt (Esgic) 50-325-40 MG tablet 1 tablet, Oral, [...] for 30 days ALLERGIES Allergies Allergen Reactions Thermalito Hives Other Reaction(s): Unknown PT. SAYS SHE [...] Date Noted Ataxia 03/29/2023 Bipolar 1 disorder ([facility]) 03/29/2023 Bipolar II disorder ([facility]) 03/29/2023 Blood coagulation disorder ([facility]) 03/29/2023 Migraine without aura and without status migrainosus, not intractable ([facility]) 03/29/2023 Cognitive impairment 03/29/2023 Inattention 03/29/2023 Degeneration of lumbar intervertebral disc 03/29/2023 Disc displacement, lumbar 03/29/2023 Gastro-esophageal reflux disease without esophagitis 03/29/2023 Generalized anxiety disorder ([facility]) 03/29/2023 Hallux valgus (acquired), left foot 03/29/2023 Hyperlipidemia ([facility]) 03/29/2023 Hypothyroidism ([facility]) 03/29/2023 Lumbar radiculopathy 03/29/2023 Lupus anticoagulant disorder ([facility]) 03/29/2023 Occipital neuralgia 03/29/2023 Other chronic pain 03/29/2023 Panic disorder with agoraphobia ([facility]) 03/29/2023 Primary osteoarthritis of left foot 03/29/2023 Refractory migraine with aura ([facility]) 03/29/2023 Sacroiliitis, not elsewhere classified ([facility]) 03/29/2023 Sensorineural hearing loss, bilateral 03/29/2023 Spondylosis of lumbar region without myelopathy or radiculopathy 03/29/2023 Bilateral tinnitus 03/29/2023 Tinnitus 03/29/2023 Acquired blindness of one eye 01/15/2016 Acute metabolic encephalopathy 09/27/2016 Altered mental status 12/07/2021 Anemia 07/26/2023 Anticoagulation management encounter 09/05/2013 Asthma ([facility]) 07/26/2023 Back pain 07/26/2023 CAD (coronary artery disease) ([facility]) 09/27/2016 Cataract 07/26/2023 Cerebrovascular accident (CVA) ([facility]) 09/13/1994 TIA (transient ischemic attack) 07/26/2023 Chronic antral gastritis 06/02/2017 Chronic rhinitis 11/21/2018 Deep vein thrombosis (DVT) ([facility]) 05/18/2019 Delirium 10/29/2021 Depression ([facility]) 07/26/2023 Displacement of lumbar intervertebral disc without myelopathy 03/25/2018 Fibromyalgia, primary 05/20/2022 Generalized osteoarthritis 05/20/2022 Glaucoma ([facility]) 11/02/2019 H/O: CVA (cerebrovascular accident) 09/27/2016 Hematoma 10/06/2021 History of 2019 novel coronavirus disease (COVID-19) 10/29/2021 History of blood transfusion 09/13/2012 History of cardiac cath 09/13/1998 History of deep venous thrombosis 09/05/2013 Hypertension ([facility]) 05/20/2022 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 ([facility]) 05/20/2022 Intractable chronic migraine without aura and without status migrainosus ([facility]) 11/25/2015 Iron deficiency anemia 04/12/2014 FPC (current) use of 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 11/24/2021 Obesity (BMI 30.0-34.9) 02/15/2019 Nephrolithiasis 05/20/2022 Misuse of prescription only drugs 07/26/2023 Mild persistent asthma ([facility]) 06/16/2016 Migraine ([facility]) 05/18/2019 Lumbosacral spondylosis without myelopathy 03/25/2018 Ischemic optic neuropathy 08/30/2013 Optic neuropathy 05/10/2013 Other optic atrophy, right eye 01/15/2016 Polypharmacy 09/27/2016 Presence of vena cava filter 05/20/2022 Osteoarthritis of left hip 11/09/2017 Degenerative joint disease (DJD) of hip 11/09/2017 Primary osteoarthritis of right hip 08/30/2018 Systemic lupus erythematosus ([facility]) 05/29/2013 Thoracic spinal stenosis 03/24/2019 Headache 11/26/2023 Chronic deep vein thrombosis (DVT) of proximal vein of lower extremity ([facility]) 05/09/2024 Chronic kidney disease, stage 3 unspecified ([facility]) ([facility]) 10/23/2021 Constipation, unspecified 10/23/2021 Contusion [...] Past Medical History: Diagnosis Date Antiphospholipid syndrome ([facility]) 07/28/2013 Blood clot in vein Broken ribs Cataract of left eye, unspecified cataract type 06/18/2016 Chronic gastritis Connective tissue disease ([facility]) Demyelinating disease ([facility]) 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[facility]) Fibromyalgia FO (foramen ovale) H/O exercise stress test Cristi's thyroiditis ([facility]) 09/18/2011 High cholesterol ([facility]) History of History of cystoscopy [...] loss Pseudotumor cerebri Stroke (cerebrum) (CMS/HCC) Stroke (CMS/HCC) Thoracic back pain Undifferentiated connective tissue disease (CMS/HCC) HISTORY PAST MEDICAL HISTORY SOCIAL HISTORY Past Medical History: Diagnosis Date Anemia Antiphospholipid syndrome (CMS/HCC) 07/28/2013 Blood clot in vein R arm [...] present / Injections in neck starting 06/10/2009 tilpresent History of medical treatment 07/04/2009 Blood Clot removal History of right heart catheterization (RHC) Heart Cath R Leg History of total left hip replacement 11/09/2017 Lumbar radiculopathy Lupus anticoagulant disorder ([facility]) Medication reaction 01/19/2011 Medication reaction Thermalito (weaned off 10/21/2016 - 10/28/2016) Memory loss Migraine (CMS/HCC) / RO TIA, 09/26/2016 Occipital neuralgia 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/23/2013 Osteoarthritis Paresthesia Peripheral vision loss Presence of vena cava filter 01/02/2015 Pseudotumor cerebri Stroke (cerebrum) (CMS/HCC) Stroke (CMS/HCC) Thoracic back pain TIA (transient ischemic attack) 10/03/2011 ; 02/01/2014 Undifferentiated connective tissue disease ([facility]) Social History Tobacco Use Smoking status: Never [...] nursing note reviewed. Exam conducted with a sample weaver present. Vitals: Estimated body mass index is [...] of: Kobi Latham DO documented in this encounterBothwell Regional Health [id number] Note [id number] Clinical Discharge Summary PERSON INFORMATION Name NOEMI BRAND Age 64 Years 1960 Sex FEMALE Language Kuwaiti PCP Provider, None Marital Status Med Service Pain Management Surgery Acct# Arrival 06/16/2024 06:50:17 Visit Reason LUMBAR PAIN Acuity LOS 009 15:52 Address: [address] [place] [address] Comment: PROVIDER INFORMATION VITALS INFORMATION Vital Sign [...] (Compund medication wi (more content not included)... [id number] Telephone encounter Note* Telephone Encounter - Sofia Coulter NP - 06/15/2024 4:30 PM EDT I am resending Fioricet correct dose as the reason likely denied is the 300 mg of tylenol instead of 325 mg and that would have been my error. I called patient and let her know. [facility] [id number] Miscellaneous Notes* Telephone Encounter - Sofia Coulter NP - 06/15/2024 4:30 PM EDT I am resending Fioricet correct dose as the reason likely denied is the 300 mg of tylenol instead of 325 mg and that would have been my error. I called patient and let her know. * Telephone Encounter - Teresa Rios - 06/15/2024 4:07 PM EDT Patient left message stating that she faxed a letter she received on Wednesday that gave alternative prescriptions. Checking on status if something different can be sent to [facility] [employer] or [facility]. documented in this encounterBothwell Regional Health [id number] Telephone encounter Note* Telephone Encounter - Teresa Rios - 06/15/2024 4:07 PM EDT Patient left message stating that she faxed a letter she received on Wednesday that gave alternative prescriptions. Checking on status if something different can be sent to [facility] [place] or [facility]. [facility] [id number] Telephone encounter Note* Telephone Encounter - Sofia Coulter NP - 06/07/2024 10:41 PM EDT [facility] reviewed. [facility] [id number] Miscellaneous Notes* Telephone Encounter - Sofia Coulter NP - 06/07/2024 10:41 PM EDT [facility] reviewed. documented in this encounterBothwell Regional Health [id number] History of Present illness Narrative* Melva Mcarthur MA - 05/26/2024 10:00 AM EDT Images from the original note were not included. CHIEF COMPLAINT REASON FOR VISIT: migraines & shakiness HPI: Noemi Brand is a 63 y.o. female who presents for a follow up. She states the propranolol did help with the shakiness.She states about 3 weeks ago the migraines have been coming back. She states theyhave been every day. She is still going the emgality and ubrelvy. She is wanting to know if we haveubrelvy samples. She is asking for 90 day of [facility] and [facility] [place] No other concerns today. CURRENT MEDICATIONS: ALLERGIES/DISCONTINUE MEDICATIONS Current Outpatient Medications Medication Instructions Advair HFA 230-21 MCG/ACT inhaler albuterol (2.5 MG/3ML) 0.083% nebulizer solution Every 8 hours albuterol HFA 90 mcg/act inhaler aspirin 81 mg, Oral baclofen (Lioresal) 10 MG tablet Every 6 hours biotin 1000 MCG tablet See Instructions, Instructions: 2tab(s) Oral Daily and 1 tab at night, 0 Refill(s) buPROPion XL (Wellbutrin XL) 300 MG 24 hr tablet busPIRone (BUSPAR) 10 mg, Oral, 2 times daily Butalbital-Acetaminophen 50-300 MG capsule See Instructions, Instructions: 1 cap(s) Oral, PRN: as needed for headache, 0 Refill(s) cyanocobalamin (Vitamin B-12) 1000 MCG tablet 1 tablet, Oral, Every morning cycloSPORINE (Restasis) 0.05 % ophthalmic emulsion Every 12 hours diclofenac sodium 1 % gel Emgality 120 mg, Subcutaneous, Every 30 days famotidine (PEPCID) 40 mg, Oral, Every morning FeroSul 325 (65 Fe) MG tablet take 1 tablet by mouth every morning and 1 tablet at bedtime folic acid (Folvite) 1 MG tablet Every 24 hours gabapentin (Neurontin) 300 MG capsule TAKE 1 CAPSULE IN THE MORNING AND 1 CAPSULE AT NOON AND 1 CAPSULE IN THE EVENING AND 1 CAPSULE BEFORE BEDTIME Lipitor 80 MG tablet Every 24 hours loratadine (Claritin) 10 MG tablet Every 24 hours losartan (Cozaar) 100 MG tablet Every 24 hours meloxicam (Mobic) 7.5 MG tablet Every 24 hours metoclopramide (Reglan) 10 MG tablet Every 8 hours ondansetron (Zofran) 4 MG tablet Every 24 hours pantoprazole (ProtoNix) 40 MG EC tablet prochlorperazine (Compazine) 10 MG tablet Every 8 hours promethazine (Phenergan) 25 MG tablet 1 tablet Oral every 6 hours as needed for nausea propranolol LA (INDERAL LA) 60 mg, Oral, Daily, Do not crush, chew, or split. sennosides 17.2 mg SEROquel 400 MG tablet 1 tablet Orally at bedtime for 90 days Singulair 10 MG tablet Every 24 hours Synthroid 50 MCG tablet Every 24 hours Ubrogepant (Ubrelvy) 100 MG tablet Ubrelvy 100 mg tablet valsartan (Diovan) 80 MG tablet Every 24 hours warfarin (Coumadin) 5 MG tablet Every 24 hours Xdemvy 0.25 % solution INSTILL 1 DROP IN BOTH EYES TWICE DAILY FOR 6 WEEKS zolpidem (Ambien) 10 MG tablet 1 tablet Orally at bedtime for 30 days Allergies Allergen Reactions Thermalito Hives Other Reaction(s): Unknown PT. SAYS SHE [...] reaction(s): Unknown Milnacipran Hcl Other Reaction(s): Unknown Medications Discontinued During This Encounter Medication Reason fmusnsnwtt-ervwzbeilkdjj-wxhjngkz-codeine (Fioricet W/Codeine) 26-538-87-30 MG capsule PAST MEDICAL HISTORY: SURGICAL/SOCIAL/FAMILY HISTORY DEPRESSION SCREEN: Past Medical History: Diagnosis Date Anemia Antiphospholipid syndrome (CMS/HCC) 07/28/2013 Blood clot in vein R arm [...] present / Injections in neck starting 06/10/2009 tilpresent History of medical treatment 07/04/2009 Blood Clot removal History of right heart catheterization (RHC) Heart Cath R Leg History of total left hip replacement 11/09/2017 Lumbar radiculopathy Lupus anticoagulant disorder (CMS/HCC) Medication reaction 01/19/2011 Medication reaction Thermalito (weaned off 10/21/2016 - 10/28/2016) Memory loss Migraine (CMS/HCC) / RO TIA, 09/26/2016 Occipital neuralgia 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/23/2013 Osteoarthritis Paresthesia Peripheral vision loss Presence of vena cava filter 01/02/2015 Pseudotumor cerebri Stroke (cerebrum) ([facility]) Stroke ([facility]) Thoracic back pain TIA (transient ischemic attack) 10/03/2011 ; 02/01/2014 Undifferentiated connective tissue disease ([facility]) Past Surgical History: Procedure Laterality Date ANTERIOR CERVICAL DISCECTOMY W/ FUSION 07/04/2009 BACK SURGERY x3 CARDIAC CATHETERIZATION SECTION, LOW TRANSVERSE HERNIA REPAIR JOINT REPLACEMENT Right hip replacement KNEE SURGERY Knee arthroscopy left and right NASAL ENDOSCOPY 02/06/2020 with cautery and biopsy OTHER SURGICAL HISTORY Blood clot in eye, impaired vision REPLACEMENT TOTAL HIP LATERAL POSITION TONSILLECTOMY Social History Tobacco Use Smoking status: Never Smokeless tobacco: Never Substance Use Topics Alcohol use: Never Comment: caffeine: 1-2 cups per day Drug use: Never Family History Problem Relation Name Age of Onset Diabetes Mother Heart disease Mother Hypertension Mother Heart disease Father Hypertension Sibling Diabetes Sibling Prostate cancer Sibling Thyroid cancer Sibling Lung cancer Sibling Depression: At risk (05/09/2024) Received from [employer] PHQ-2 Total Score: 4 REVIEW OF SYMPTOMS: Review of Systems Constitutional: Negative for chills, diaphoresis, fatigue and fever. HENT: Negative for ear pain, tinnitus and trouble swallowing. Eyes: Negative for photophobia and visual disturbance. Respiratory: Negative for cough and shortness of breath. Cardiovascular: Negative for palpitations and leg swelling. Gastrointestinal: Negative for abdominal pain and nausea. Genitourinary: Negative for difficulty urinating and urgency. Musculoskeletal: Negative for arthralgias, back pain, myalgias, neck pain and neck stiffness. Neurological: Positive for headaches. Negative for tremors, weakness, light- headedness and numbness. Psychiatric/Behavioral: Negative for agitation, confusion and suicidal ideas. OBJECTIVE: 02/18/2024 10:13 AM 07/26/2023 10:37 AM 06/22/2023 3:23 PM Vitals BMI 35.45 kg/m2 23.46 kg/m2 35.35 kg/m2 BSA (m2) 2.1 m2 1.71 m2 2.1 m2 Systolic 134 136 142 Diastolic 86 71 80 Heart Rate 66 Weight (lb) 213 141 212.4 Visit Report Report Report EXAM: Neurological Exam Mental Status Awake, alert and oriented to person, place and time. Oriented to person, place and time. Recent andremote memory are intact. Speech is normal. Language is fluent with no aphasia. Attention and concentration are normal. Cranial Nerves CN II: Visual acuity is normal. Visual tompkins full to confrontation. CN III, IV, : Extraocular movements intact bilaterally. Normal lids and orbits bilaterally. Pupils equal round and reactive to light bilaterally. CN V: Facial sensation is normal. CN VII: Full and symmetric facial movement. CN VIII: Hearing is normal. CN XII: Tongue midline without atrophy or fasciculations. Motor Normal muscle bulk throughout. Normal muscle tone. Right Left Wrist flexion 5 5 Wrist extension 5 5 Right Left Deltoid 5 5 Biceps 5 5 Triceps 5 5 Wrist flexor 5 5 Wrist extensor 5 5 Glutei 5 5 Iliopsoas 5 5 Quadriceps 5 5 Gastrocnemius 5 5 Anterior tibialis 5 5 Posterior tibialis 5 5 Sensory Light touch is normal in upper and lower extremities. Pinprick is normal in upper and lower extremities. Vibration is normal in upper and lower extremities. Reflexes Right Left Brachioradialis 2+ 2+ Biceps 2+ 2+ Patellar 2+ 2+ Achilles 2+ 2+ Right Plantar: downgoing Left Plantar: downgoing Right pathological reflexes: Vikki's absent. Ankle clonus absent. Left pathological reflexes: Vikki's absent. Ankle clonus absent. Coordination Ggxvwn-hi-jrbq, rapid alternating movements and jafl-oq-lgop normal bilaterally without dysmetria. Gait Normal casual, toe, heel and tandem gait. Romberg is absent. PROCEDURE: NONE ASSESSMENT AND PLAN: Diagnoses and all orders for this visit: Migraine without aura and without status migrainosus, not intractable (CMS/HCC) Continue Butalbital-Acetaminophen 50-300 MG capsule; Take 1 capsule by mouth every 12 (twelve) hours if needed (migraine) Continue propranolol LA (Inderal LA) 60 MG 24 hr capsule; Take 1 capsule (60 mg) by mouth Daily Do not crush, chew, or split. Continue with Emgality for prevention. Sample provided. Continue with Ubrelvy for acute treatment. Samples provided. Follow up 3 months documented in this encounterBothwell Regional Health [id number] Hospital Discharge instructions Patient Education 08/25/2022 13:32:50 Kidney Stones, Enlg-of-Mtun Kidney Stones Kidney stones are rock-like masses [...] Follow these instructions at home: Medicines Take ceil-rup-kvtwrnd and prescription medicines only as told by [...] 02/15/2009 Document Revised: 01/16/2020 Document Reviewed: 01/16/2020 [employer] Patient Education 2020 [employer] Follow Up Care 08/12/2021 11:07:07 With:ANDRE MCNEIL PA-C, URL Address: When:1 year [facility] evaluation + Plan note Future Appointments Appointment Date:08/25/2023 01:00:00 PM Scheduled Provider:ANDRE MCNEIL PA-C Location:[facility] Appointment Type:URO Office Visit [facility] evaluation + Plan note Future Appointments Appointment Date:08/29/2024 10:00:00 AM Scheduled Provider:ANDRE MCNEIL PA-C Location:[facility] Appointment Type:URO Office Visit Diagnostic Tests Pending * [facility] Appointment Date:08/29/2024 10:00:00 AM Scheduled Provider:ANDRE MCNEIL PA-C Location:[facility] Appointment Type:URO Office Visit [facility] evaluation + Plan note Future Appointments Appointment Date:08/29/2024 10:00:00 AM Scheduled Provider:ANDRE MCNEIL PA-C Location:[facility] Appointment Type:URO Office Visit Diagnostic Tests Pending * [facility]ments Appointment Date:08/29/2024 10:00:00 AM Scheduled Provider:ANDRE MCNEIL PA-C Location:[facility] Appointment Type:URO Office Visit Diagnostic Tests Pending * Calculi Analysis [facility]ments Appointment Date:08/30/2025 09:40:00 AM Scheduled Provider:ANDRE MCNEIL PA-C Location:[facility] Appointment Type:URO Office Visit [facility] evaluation noteNo assessment information available [facility] Work Phone: Evaluation note* Diagnosis Migraine without aura and without status migrainosus, not intractable (CMS/HCC)- Primary [facility]* Diagnosis Well woman exam with routine gynecological exam Routine gynecological examination Postmenopausal state Asymptomatic postmenopausal status (age-related) (natural) Breast cancer screening by mammogram documented in this encounter [facility]* Diagnosis Migraine without aura and without status migrainosus, not intractable (CMS/HCC) documented in this encounter [facility]* Diagnosis Lumbar radiculopathy Thoracic or lumbosacral neuritis or radiculitis, unspecified documented in this encounter [facility]* Diagnosis FPC (current) use of 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- Primary Long-term (current) use of 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 [facility] Diagnosis 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- Primary Long-term (current) use of 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 [facility] Diagnosis Migraine without aura and without status migrainosus, not intractable (CMS/HCC) documented in this encounter [facility]* Diagnosis Gastroesophageal reflux disease, unspecified whether esophagitis present [facility] Diagnosis Cervical spondylosis with radiculopathy Cervical spondylosis with myelopathy Gastroesophageal reflux disease, unspecified whether esophagitis present [facility] Diagnosis Mild persistent asthma without complication [facility] Diagnosis Mixed hyperlipidemia [facility] Diagnosis Mixed hyperlipidemia [facility]* Diagnosis Gastroesophageal reflux disease, unspecified whether esophagitis present Cervical spondylosis with radiculopathy Cervical spondylosis with myelopathy [facility] Diagnosis Essential hypertension Unspecified essential hypertension [facility] Diagnosis Migraine without aura and without status migrainosus, not intractable (CMS/HCC)- Primary [facility] HealthcareEvaluation note* Diagnosis FPC (current) use of 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- Primary Long-term (current) use of 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 documented in this encounter [facility] SystemEvaluation note* Diagnosis Gastroesophageal reflux disease, unspecified whether esophagitis present documented in this encounter [facility] SystemEvaluation note* Diagnosis Essential hypertension- Primary Unspecified essential hypertension 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 Mixed hyperlipidemia IFG (impaired fasting glucose) [place], [place] Morbid obesity Bipolar II disorder [place] Other bipolar disorders Chronic deep vein thrombosis (DVT) of proximal vein of lower extremity, unspecified laterality [place] Systemic lupus erythematosus [place] Lupus anticoagulant disorder Primary hypercoagulable state Mild persistent asthma without complication Gastroesophageal reflux disease, unspecified whether esophagitis present Special screening for malignant neoplasm of colon Special screening for malignant neoplasms, colon documented in this encounter [facility] SystemEvaluation note* Diagnosis Type 2 diabetes mellitus without complication, without long-term current use of insulin [place] Primary documented in this encounter [facility] SystemEvaluation note* Diagnosis Mild persistent asthma without complication documented in this encounter [facility] SystemEvaluation note* Diagnosis 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- Primary Long-term (current) use of 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 documented in this encounter [facility] SystemEvaluation note* Diagnosis Type 2 diabetes mellitus without complication, without long-term current use of insulin [place] documented in this encounter [facility] SystemEvaluation note* Diagnosis 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- Primary Long-term (current) use of 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 Lupus anticoagulant disorder Primary hypercoagulable state documented in this encounter [facility] SystemEvaluation note* Diagnosis Migraine without aura and without status migrainosus, not intractable- Primary documented in this encounter [facility] HealthcareEvaluation [facility]* Diagnosis Migraine without aura and without status migrainosus, not intractable documented in this encounter [facility] HealthcareEvaluation note* Diagnosis Essential hypertension Unspecified essential hypertension documented in this encounter [facility] SystemEvaluation note* Diagnosis 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- Primary Long-term (current) use of 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 documented in this encounter [facility] SystemEvaluation note* Diagnosis Migraine without aura and without status migrainosus, not intractable documented in this encounter [facility] HealthcareEvaluation note* Diagnosis Gastroesophageal reflux disease, unspecified whether esophagitis present documented in this encounter [facility] SystemEvaluation note* Diagnosis 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- Primary Long-term (current) use of 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 Screen for colon cancer Special screening for malignant neoplasms, colon documented in this encounter [facility] SystemEvaluation note* Diagnosis Lupus anticoagulant disorder- Primary Primary hypercoagulable state Personal history of DVT (deep vein thrombosis) Personal history of venous thrombosis and embolism Screen for colon cancer Special screening for malignant neoplasms, colon documented in this encounter [facility] SystemEvaluation note* Diagnosis Mixed hyperlipidemia documented in this encounter [facility] SystemEvaluation note* Diagnosis FPC (current) use of 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- Primary Long-term (current) use of 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 documented in this encounter [facility] SystemHospital course Narrative No data available for this section [facility] Hospital Discharge instructions No data available for this section [facility] filed[facility]ed in [facility] [...] available for this section [facility] Discharge Instructions * Discharge Instr - Other Orders - Olimpia Veras RN - 11/11/2017 11:16 AM EST [...] will return the [employer] Unit to our [place] office at your 2 week follow up [...] testing, if needed. in this encounter Assessments DiagnosisOsteoarthritis of left hip, unspecified osteoarthritis type - Primary Nephrolithiasis Calculus of kidney Hypothyroidism Unspecified hypothyroidism Hypertension Unspecified essential hypertension History of blood transfusionHeadacheGERD (gastroesophageal reflux disease) Esophageal reflux Fibromyalgia, primaryDeep vein thrombosis (HCC) Acute venous embolism and thrombosis of unspecified deep vessels of lower extremity Bipolar disorder (HCC) Bipolar disorder, unspecified Asthma Unspecified asthma Primary osteoarthritis of left hipDegenerative joint disease (DJD) of hip DiagnosisPre-op exam - PrimaryPrimary osteoarthritis of left hipPre-operative cardiovascular examinationAcquired hypothyroidism Unspecified hypothyroidism Pure hypercholesterolemiaHistory of CVA in adulthoodHistory of DVT in adulthood Migraine without aura and without status migrainosus, not intractableOther depressionAnxiety Anxiety state, unspecified Insomnia, unspecified typeFibromyalgia Unspecified myalgia and myositis Bipolar affective disorder, remission status unspecified (HCC)Elevated blood pressure reading without diagnosis of hypertensionRisk factors for obstructive sleep apneaModerate obesityNo contraindication to deep vein thrombosis (DVT) prophylaxis Advance Directives TypeDate RecordedPatient RepresentativeExplanationACP-Advance DirectiveACP-Power of AttorneyACP-Advance Directive09/29/2016 1:53 PMCode StatusDate ActivatedDate InactivatedCommentsFull Code09/27/2016 1:50 AM09/28/2016 4:58 PM Advance Directive Response Recorded Date/ Time Advance Directives Yes July 13, 2017 2:48pm Advance Directive Response Recorded Date/ Time Advance Directives Yes July 13, 2017 1:48pm Date ActivatedDate InactivatedComments10/06/2021 5:21 AM10/23/2021 2:34 PMDate ActivatedDate InactivatedComments10/06/2021 5:21 AM10/23/2021 2:34 PM Instructions * Patient Instructions - Rossana Reid DO - 10/21/2017 12:50 PM EST Formatting of this note may be different from the original. If your surgery date changes or you change your surgery date, please call us at [phone] Preoperative Medication Instructions In preparation for surgery please continue all of your current medications with the following changes: Noemi Brand Home Medication Instructions Prior to Surgery ZACK:[id number] Printed on:10/21/17 1250 Medication Information Take last [...] every morning TAKES 1 TABLET . NO etifcba-gjichxsunf-YFX-caff (negpqdhbbp-ccsdied-nmlpcove-codeine) capsule Take 1 capsule by mouth continuous [...] medications that contain aspirin, such as Danielle Bird In Hand, Pepto- Bismol, Anacin), antiinflammatory medications such as Advil, Motrin, Ibuprofen, Naproxen, Aleve, Danielle Bird In Hand, Pepto-Bismol,Anacin, Diclofenac, Voltaren, Daypro, Etodolac, Ketoprofen, Piroxicam, Relafen, Nabumetone, etc. THESE SHOULD NOT BE USED WHEN TAKING COUMADIN (WARFARIN). Also discontinue Vitamin C, Vitamin E, [place] Xavier-3 Fatty Acid, Fish Oil or Lovaza, and [...] joelle father Congestive heart failure Unknown Not SpecifiedCongestive heart failureUnknownsisterMalignant neoplasm of lung UnknownbrotherMalignant neoplasm of prostateUnknown Relationship Condition Age at Onset Recorded Date/T joelle father Congestive heart failure Unknown Not SpecifiedCongestive heart failureUnknownsisterMalignant neoplasm of lung UnknownbrotherMalignant neoplasm of prostateUnknowndaughterFamily history of mental disorderUnknownfatherHypertensionUnknownHeart diseaseUnknownDeceased Unknownfamily memberFamily history of mental disorderUnknownNot Specified Diabetes mellitusUnknownHypertensionUnknownsiblingDiabetes mellitusUnknown Malignant neoplasmUnknown Chief Complaint and Reason for Visit Chief Complaint M05.0 M35.9 Z79.899 Chief Complaint m36.8/ m15.0 Z79.899 Chief Complaint M36.8 M15.0 Z79.899 Additional Source Comments Lina Elizabeth MD - 11/09/2017 6:56 AM EST H&P Notes (unrecognized sect ion and content) INTERVAL HISTORY AND PHYSICAL Patient Name: Noemi Brand Admit Date: [id number] MR #: [id number] : 1960 The H&P has been reviewed and the patient has been examined. I concur with the findings of the H&P. There are no significant changes. It is appropriate to proceed with the planned procedure. Lina Elizabeth MD 11/09/2017 6:56 AM * Rossana Reid, - 10/21/2017 1:02 PM EST Formatting of this note may be different from the original. Assessment and Plan 1. Pre-op exam Preoperative medical risk stratification indicates that the patient is at acceptablerisk for elective/major surgery-11/09; LEFT TOTAL HIP ARTHROPLASTY ANTERIOR APPROACH [facility] Main OR pending laboratory. ECG 12 Lead 2. Primary osteoarthritis of left hip The patient should use no aspirin products or anti-inflammatory drugs at any time given her chronic anticoagulation with warfarin. 3. Pre-operative cardiovascular examination This patient has no active cardiac conditions and wouldbe considered at a low risk for a major adverse cardiac event (MACE) based on a revised cardiac risk index (RCRI) score of 0. This patient has an activity level greater than 4 METS and would be considered at acceptable cardiac risk based on the 2014 [place] Association (ACC/AHA) guideline on Perioperative Cardiovascular [...] diagnosis of hypertension The patient was instructed inlifestyle modifications, including weight reduction, dietary sodium restriction, [...] Therapy and Prevention of Thrombosis, 9th ed: [employer] Evidence-Based Clinical Practice Guidelines. Would recommend restarting patient's [...] 11/09; LEFT TOTAL HIP ARTHROPLASTY ANTERIOR APPROACH [facility] Main OR . Patient states she has had left hip pain for the few years and was scheduled for this surgery last year. 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 Sheis now here for the completion. Current complaints [...] hip Presence of vena cava filter Stroke ([facility]) 1994 Past Medical History Pertinent Negatives: Diagnosis Date Noted Bleeding disorder ([facility]) 09/17/2016 Blood transfusion reaction 09/17/2016 CHF (congestive heart failure) ([facility]) 10/21/2017 Complication of anesthesia 09/17/2016 Coronary artery disease 09/17/2016 Diabetes mellitus type I ([facility]) 09/17/2016 Diabetes mellitus, type 2 ([facility]) 09/11/2016 Hard to intubate 09/17/2016 Hypertension 09/17/2016 Malignant hyperthermia due to anesthesia 09/17/2016 No blood products 09/17/2016 PONV (postoperative nausea and vomiting) 10/21/2017 Rheumatoid arthritis ([facility]) 10/18/2017 Sleep apnea, obstructive 09/17/2016 [...] Units, Oral, Every morning, TAKES 1 TABLET mnhevfd-gpcgoktgqi-HYJ-caff (vnjvyfisqg-ywgynxq-eiybbakk-codeine) capsule Take 1 capsule by mouth continuous [...] day TAKES 1 TABLET . Yes 2.5 mg,Oral, 2 times daily, TAKES 1 TABLET fluticasone (FLONASE) 50 mcg/actuation nasal spray Instill 2 sprays into each nostril 2 (two) timesa day DOES 2 SPRAYS IN EACH NOSTRIL . Yes 2 sprays, Nasal, 2 times daily, DOES 2 SPRAYS IN EACH NOSTRIL FLUTICASONE/SALMETEROL (ADVAIR HFA INHL) Inhale 2 (two) times a day DOES 2 PUFFS ReasonsASTHMA. YesInhalation, 2 times daily, DOES 2 PUFFS folic acid (FOLVITE) 1 MG tablet Take 1 mg by mouth nightly TAKES 1 TABLET ReasonsSUPPLEMENT. Yes 1mg, Oral, Nightly, TAKES 1 TABLET gabapentin (NEURONTIN) [...] mg Tb12 Take by mouth nightly TAKES 1TABLET ReasonsAllergic Rhinitis. Yes Oral, Nightly, TAKES 1 [...] by mouth daily as needed MIXES WITH LIQUIDS.Yes 17 g, Oral, Daily PRN, MIXES WITH LIQUIDS QUEtiapine (SEROQUEL) 200 MG tablet Take 300 mg by mouth nightly TAKES 1 TABLET . Yes 300 mg, Oral,Nightly, TAKES 1 TABLET venlafaxine (EFFEXOR-XR) 150 MG [...] mg total) under the skin every 12 (twelve)hours for 6 doses. 80 mg, Subcutaneous, Every 12 hours Allergies Allergen Reactions [place]mal[place] Other (See Comments) COMA Zoloft [Sertraline] Other [...] Electrocardiogram-tracing independently reviewed and interpreted-nonspecific ST segment changes. in this encounter* Rossana Reid, DO - 10/21/2017 1:02 PM EST Formatting of this note may be different from the original. Assessment and Plan 1. Pre-op exam Preoperative medical risk stratification indicates that the patient is at acceptablerisk for elective/major surgery-11/09; LEFT TOTAL HIP ARTHROPLASTY ANTERIOR APPROACH [facility] Main OR pending laboratory. ECG 12 Lead 2. Primary osteoarthritis of left hip The patient should use no aspirin products or anti-inflammatory drugs at any time given her chronic anticoagulation with warfarin. 3. Pre-operative cardiovascular examination This patient has no active cardiac conditions and wouldbe considered at a low risk for a major adverse cardiac event (MACE) based on a revised cardiac risk index (RCRI) score of 0. This patient has an activity level greater than 4 METS and would be considered at acceptable cardiac risk based on the 2014 [place] [employer] Heart Association (ACC/AHA) guideline on Perioperative Cardiovascular [...] diagnosis of hypertension The patient was instructed inlifestyle modifications, including weight reduction, dietary sodium restriction, [...] Therapy and Prevention of Thrombosis, 9th ed: [employer] Evidence-Based Clinical Practice Guidelines. Would recommend restarting patient's [...] 11/09; LEFT TOTAL HIP ARTHROPLASTY ANTERIOR APPROACH [facility] Main OR . Patient states she has had left hip pain for the few years and was scheduled for this surgery last year. 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 Sheis now here for the completion. Current complaints [...] hip Presence of vena cava filter Stroke ([facility]) 1994 Past Medical History Pertinent Negatives: Diagnosis Date Noted Bleeding disorder ([facility]) 09/17/2016 Blood transfusion reaction 09/17/2016 CHF (congestive heart failure) ([facility]) 10/21/2017 Complication of anesthesia 09/17/2016 Coronary artery disease 09/17/2016 Diabetes mellitus type I ([facility]) 09/17/2016 Diabetes mellitus, type 2 ([facility]) 09/11/2016 Hard to intubate 09/17/2016 Hypertension 09/17/2016 Malignant hyperthermia due to anesthesia 09/17/2016 No blood products 09/17/2016 PONV (postoperative nausea and vomiting) 10/21/2017 Rheumatoid arthritis ([facility]) 10/18/2017 Sleep apnea, obstructive 09/17/2016 [...] Units, Oral, Every morning, TAKES 1 TABLET fnzppox-oetfjplwlx-SUZ-caff (vgmalxmqko-omcdphe-xbyvozkz-codeine) capsule Take 1 capsule by mouth continuous [...] day TAKES 1 TABLET . Yes 2.5 mg,Oral, 2 times daily, TAKES 1 TABLET fluticasone (FLONASE) 50 mcg/actuation nasal spray Instill 2 sprays into each nostril 2 (two) timesa day DOES 2 SPRAYS IN EACH NOSTRIL . Yes 2 sprays, Nasal, 2 times daily, DOES 2 SPRAYS IN EACH NOSTRIL FLUTICASONE/SALMETEROL (ADVAIR HFA INHL) Inhale 2 (two) times a day DOES 2 PUFFS ReasonsASTHMA. YesInhalation, 2 times daily, DOES 2 PUFFS folic acid (FOLVITE) 1 MG tablet Take 1 mg by mouth nightly TAKES 1 TABLET ReasonsSUPPLEMENT. Yes 1mg, Oral, Nightly, TAKES 1 TABLET gabapentin (NEURONTIN) [...] mg Tb12 Take by mouth nightly TAKES 1TABLET ReasonsAllergic Rhinitis. Yes Oral, Nightly, TAKES 1 [...] by mouth daily as needed MIXES WITH LIQUIDS.Yes 17 g, Oral, Daily PRN, MIXES WITH LIQUIDS QUEtiapine (SEROQUEL) 200 MG tablet Take 300 mg by mouth nightly TAKES 1 TABLET . Yes 300 mg, Oral,Nightly, TAKES 1 TABLET venlafaxine (EFFEXOR-XR) 150 MG [...] mg total) under the skin every 12 (twelve)hours for 6 doses. 80 mg, Subcutaneous, Every 12 hours Allergies Allergen Reactions [place] Other (See Comments) COMA Zoloft [Sertraline] Other [...] Electrocardiogram-tracing independently reviewed and interpreted-nonspecific ST segment changes. in this encounter Cony Bernal LISW-S - 11/11/2017 12:21 PM EST Consult Notes (unrecognized section and content) [...] No Discharge Readiness Expected Discharge Date: 11/11/17 [facility] Disposition D/C Disposition: Home * Lucrecia Marte, PT - 11/09/2017 3:08 PM EST Formatting of this note may [...] result in limitations of gait, functional transfers, stair- climbing, safety and activity tolerance. These impairments result [...] to Stand: Min Stand Pivot Transfers: Min Rn Case Manager Hospice: Walker Gait/Locomotion Gait Assistance: Contact guard Assistive [...] Accessible via walker Home Equipment: Cane, Walker, Seed District Sales Manager (crutches) Additional Comments: did not use assistive device prior to admit Prior Level of Function Level of [place]: Independent with ADLs and functional transfers, Independent [...] ANTERIOR APPROACH; Surgeon: Lina Elizabeth MD; Location: [facility] Main OR; Service: Orthopedic CATARACT EXTRACTION [...] hospital or completion of Physical Therapy Plan * Ignacio Centeno RRT - 11/09/2017 11:54 AM EST Patient LOC X 3. Based on post procedure LAMONTE assessment - patient snores, BMI > 35 and receivingopioids she is considered a moderate risk for LAMONTE. Will monitor ETCO2 / SpO2 post op. CPAP available if indicated in this encounter Assessment & Plan Note - Ingrid Ruiz CNP - 11/10/2017 10:40 AM EST Miscellaneous Notes (unrecog nized section [...] - Cr 1.29. Seen by Dr. Arguello (COP) this morning and patient to follow-up for [...] the bed elevated and to limit narcotics. * Subjective & Objective - Ingrid Ruiz CNP - 11/10/2017 10:37 AM EST Formatting of this note may be [...] CDI. Minimal Swelling. NVI. Moving the extremity. [place] and warm. Negative Saw's Sign. Cap refill less than 3 seconds. Psych: Mood and affect appropriate. Skin: No rashes; normal turgor. Intake/Output last 3 shifts: I/O last 3 completed shifts: In: 2771.2 [P.O.:2350; I.V.:221.2; IV Piggyback:200] Out: 3300 [Urine:3300] Results/Medications Reviewed 11/11/17 11:07 AM: Laboratory, Medications and Transcriptions * Op Note - Lina Elizabeth MD - 11/09/2017 4:37 PM [facility] [id number] N [id number] 1960 DATE 11/09/2017 OPERATIVE REPORT SURGEON LINA ELIZABETH MD CONTRACT ANALYST ROSANGELA DUMONT PA-C There were no qualified [...] DVT prophylaxis. SPECIAL CONSIDERATIONS Rosangela Dumont, Physician Occ Ther, should be billed as land surveyor assistant since there were no qualified residents [...] Final sponge and needle counts were correct. LIAN ELIZABETH MD D 11/09/2017 08:58 [id number] T 11/09/2017 09:55 TJE/MODL cc Dr. Alexander Helms : * Op Note - Lina Elizabeth MD - 11/09/2017 8:58 AM EST [id number] * Brief Op Note - Lina Elizabeth MD - 11/09/2017 8:55 AM EST Formatting of this note may be different from the original. Brief Post Operative Note Patient Name: Noemi Brand : 1960 (57 y.o.) Date of Service: 11/09/2017 CSN: [id number] Procedure(s): LEFT TOTAL HIP ARTHROPLASTY ANTERIOR APPROACH Pre-Operative Diagnoses: * M16.12 Post-Operative Diagnoses: * same Surgeon(s) and Role: * Lina Elizabeth MD - Primary Anesthesiologist: Jn Cramer MD INTEGRATED CIRCUITS INSPECTOR: Jan Hill CRNA Environmental Analyst: Ashley Salinas RN Physician Occ Ther: Rosangela Dumont PA-C Scrub Person: Thuy House RN: Kasandra Guerra RN Operative findings: oa Intra and immediate post-operative complications: none Type of anesthesia used: Spinal Estimated blood loss: 400 mL Estimated urine output: 125 mL Specimen(s): * No specimens in log * Implant(s): Implant Name Type Inv. Item Serial No. Chief Psychologist Lot No. LRB No. Used Action LINER 32MM C FLAT HIGHCROSS MPACT - [id number] LINER 32MM C FLAT HIGHCROSS MPACT MEDACTA [id number] Left 1 Implanted SHELL 48MM 2HL ACET MPACT - [id number] SHELL 48MM 2HL ACET MPACT MEDACTA [id number] Left 1 Implanted STEM SZ2 STD FEM PROX COAT TI AMISTEM-H - [id number] STEM SZ2 STD FEM PROX COAT TI AMISTEM-H MEDACTA [id number] Left 1 Implanted HEAD 32MM +4 FEM BIOLOX DELTA MECTACER - [id number] HEAD 32MM +4 FEM BIOLOX DELTA MECTACER MEDACTA [id number] Left 1 Implanted Drain(s): Urethral Catheter Non-latex 16 Fr. (Active) Wound(s): Incision 11/09/17 Hip Left (Active) Lina Elizabeth MD 11/09/2017 8:55 AM in this encounter Ev Strickland RN - 10/21/2017 12:33 PM EST Nursing Notes (unrecognized section and content) Patient Instructions for [facility]: Prior to surgery: Please be sure to wear loose, comfortable clothing and non-skid shoes Bring your health insurance information and a photo ID, as well as your Living Will or Durable Power of Clod Puller for Healthcare if it is available to you. Bring your cane/walker any applicable assistive device. If you currently use a CPAP, please bring this device with you on the day of surgery. Bring a list of your medications with the name of the medication, dose and how often you are takingit. Be sure to include herbal preparations and nwqe-mzt-rjaklbo medications on this list. Do not eat [...] of lotions, perfumes or powders. All nail armenian is to be removed from fingernails and toenails. Please be sure to remove all jewelry and body piercings and leave all valuables at home. You will receive a phone call between 3:30 and 7:30 pm the day before your procedure to verify the time you should arrive at the hospital. Eyeglasses, hearing aids or dentures may be worn to the hospital. Bring your storage container for these items as you will be asked to remove them prior to your surgery/procedure. Please do not wear any contact lenses the day of your surgery/procedure. Parking at [facility] is free. Please park in the lot in front of the main lobby. Enter the Main Entrance where a Route Aide Liaison at the information desk will greet you and accompany you to the surgery waiting area. Children under the age of 16 are NOT permitted in the Pre/Post Operative areas. They are welcome towait with a responsible adult in the surgery waiting area. Have you had a chance to view our online educational program called Minda? It is important that you watch it as this is a standard part of your surgery preparation process here at [facility]. It will provide you with additional [...] section and content) DATE CREATED AUTHOR 03/01/2018 [facility] DATE CREATED AUTHOR AUTHOR'S ORGANIZ ATION 09/04/2018 [facility] DATE CREATED AUTHOR AUTHOR'S ORGANIZ ATION 12/11/2021 [facility] DATE CREATED AUTHOR AUTHOR'S ORGANIZ ATION 02/12/2022 [facility] DATE CREATED AUTHOR AUTHOR'S ORGANIZ ATION 08/13/2022 [facility] DATE CREATED AUTHOR AUTHOR'S ORGANIZ ATION 07/23/2024 [facility] DATE CREATED AUTHOR AUTHOR'S ORGANIZ ATION 09/01/2024 [facility] DATE CREATED AUTHOR AUTHOR'S ORGANIZ ATION 02/11/2025 [facility] DATE CREATED AUTHOR AUTHOR'S ORGANIZ ATION 03/26/2025 [facility] DATE CREATED AUTHOR AUTHOR'S ORGANIZ ATION 03/27/2025 [facility] DATE CREATED AUTHOR AUTHOR'S ORGANIZ ATION 06/15/2025 [facility] DATE CREATED AUTHOR AUTHOR'S ORGANIZ ATION 06/17/2025 [facility] DATE CREATED AUTHOR AUTHOR'S ORGANIZ ATION 07/01/2025 [facility] Care Teams (unrecognized sec tion and content) Team MemberRelationshipSpecialtyStart DateEnd Date Alexander Chen PCP - General09/26/16 Team Status: Active Member Role Status Dates Alexander Chen DO Primary Care Provider Active Team Status: Inactive Member Role Status Dates Alexander Chen DO Primary Care Provider Active Carlie Simons ProviderActive Team Status: Inactive Member Role Status Dates Alexander Chen DO Primary Care Provider Active Sta rt: October 04, 2023 End: October 04, 2023Carlie Morgan ProviderActiveStart: October 04, 2023 End: October 04, 2023 Team Status: Inactive Member Role Status Dates Alexander Chen DO Primary Care Provider Active Sta rt: February 25, 2024 End: February 25, 2024Carlotta Stanley NP-CAttending ProviderActiveStart: February 25, 2024 End: February 25, 2024Team MemberRelationshipSpecialtyStart DateEnd Date Alexander Chen MD [address] [place] [address] PCP - GeneralInternal Kvfgxskd23/10/23am MemberRelationshipSpecialtyStart Date End Date Alexander Chen MD [address] [place] [address] PCP - GeneralInternal Sgtrbsvl38/10/23am MemberRelationshipSpecialtyStart Date End Date Alexander Chen MD [address] [place] [address] PCP - GeneralInternal Boujpgya87/10/23am MemberRelationshipSpecialtyStart Date End Date Alexander Chen MD [address] [place] [address] PCP - GeneralInternal Gxbvmsyg92/10/23am MemberRelationshipSpecialtyStart Date End Date Alexander Chen MD [address] [place] [address] PCP - GeneralInternal Hkgpivav22/10/23am MemberRelationshipSpecialtyStart Date End Date Alexander Chen MD [address] [place] [address] PCP - GeneralInternal Iwsslttp79/10/23Team MemberRelationshipSpecialtyStart Date End Date Alexander Chen MD [address] [place] [address] PCP - GeneralInternal Jnxepibz55/10/23Team MemberRelationshipSpecialtyStart Date End Date Alexander Chen DO [address] [place] [address] PCP - General02/23/13 Nava Sanches [facility] Nurse - SpvbfbIuxz65/4/24Team MemberRelationshipSpecialtyStart DateEnd Date Alexander Chen DO [address] [place] [address] PCP - General02/23/13 Nava Sanches [facility] Nurse - OzjhnlByyt27/4/24Team MemberRelationshipSpecialtyStart DateEnd Date Alexander Chen MD [address] [place] [address] PCP - GeneralInternal Jqxvxgkj29/10/23Team MemberRelationshipSpecialtyStart Date End Date Alexander Chen MD [address] [place] [address] PCP - GeneralInternal Visxfvoa73/10/23Team MemberRelationshipSpecialtyStart Date End Date Alexander Chen DO [address] [place] [address] PCP - General02/23/13 Che Sosa [facility] Nurse - SignalLamp1//25Team MemberRelationshipSpecialtyStart DateEnd Date Alexander Chen DO [address] [place] [address] PCP - General02/23/13 Che Alasandro [facility] Nurse - SignalLamp1/17/25Team MemberRelationshipSpecialtyStart DateEnd Date Alexander Chen, [address] [place] [address] PCP - General02/23/13 Che Alasandro [facility] Nurse - SignalLamp1/17/25Team MemberRelationshipSpecialtyStart DateEnd Date Alexander Chen DO [address] [place] [address] PCP - General02/23/13 Che Alasandro [facility] Nurse - SignalLamp1/17/25Team MemberRelationshipSpecialtyStart DateEnd Date Alexander Chen DO [address] [place] [address] PCP - General02/23/13 Che Alasandro [facility] Nurse - SignalLamp1/17/25Team MemberRelationshipSpecialtyStart DateEnd Date Alexander Chen MD PCP - GeneralInternal Ybilewpm60/10/23Team MemberRelationshipSpecialtyStart Date End Date Alexander Chen MD PCP - GeneralInternal Xjcegszb58/10/23Team MemberRelationshipSpecialtyStart Date End Date Alexander Chen DO [address] [place] [address] PCP - General02/23/13 Che Alasandro [facility] Nurse - SignalLamp1/17/25Team MemberRelationshipSpecialtyStart DateEnd Date Alexander Chen, DO [address] [place] [address] PCP - General02/23/13 Che Alasandro [facility] Nurse - SignalLamp1/17/25Team MemberRelationshipSpecialtyStart DateEnd Date Alexander Chen, DO [address] [place] [address] PCP - General02/23/13 Che Alasandro [facility] Nurse - SignalLamp1/17/25Team MemberRelationshipSpecialtyStart DateEnd Date Alexander Chen, DO [address] [place] [address] PCP - General02/23/13 Che Alasandro [facility] Nurse - SignalLamp1/17/25Team MemberRelationshipSpecialtyStart DateEnd Date Alexander Chen, DO [address] [place] [address] PCP - General02/23/13 Che Alasandro [facility] Nurse - SignalLamp1/17/25Team MemberRelationshipSpecialtyStart DateEnd Date Alexander Chen, DO [address] [place] [address] PCP - General02/23/13 Che Alandro [facility] Nurse - SignalLamp1Team MemberRelationshipSpecialtyStart DateEnd Date Alexander Chen MD PCP - GeneralInternal Tzffezkq26/10/23Team MemberRelationshipSpecialtyStart Date End Date Alexander Chen MD PCP - GeneralInternal Jhghvume75/10/23Team MemberRelationshipSpecialtyStart Date End Date Alexander Chen MD [facility] Zxuzvbae45/10/23Team MemberRelationshipSpecialtyStart Date End Date Alexander Chen DO [address] [place] [address] PCP - General02/23/13 Che Sosa [facility] Nurse - SignalLamp125Team MemberRelationshipSpecialtyStart DateEnd Date Alexander Chen DO [address] [place] [address] PCP - General02/23/13 Che Boniro [facility] Nurse - SignalLamp1/Team MemberRelationshipSpecialtyStart DateEnd Date Alexander Chen MD PCP - GeneralInternal Hrfdakhd97/10/23Team MemberRelationshipSpecialtyStart Date End Date Alexander Chen DO [address] [place] [address] PCP - General02/23/13 Che Sosa [facility] Nurse - SignalLam09/29/24Team MemberRelationshipSpecialtyStart DateEnd Date Alexander Chen DO [address] [place] [address] PCP - General02/23/13 Che Sosa [facility] Nurse - SignalLam09/29/24Team MemberRelationshipSpecialtyStart DateEnd Date Alexander Chen DO [address] [place] [address] PCP - General02/23/13 Che Sosa [facility] Nurse - SignalMariusz09/29/24 Goals (unrecognized section and content) Goals may be documented in a n alternate section Reason for Visit (unrecogniz ed section and content) ReasonCommentsWell Women VisitReasonCommentsMed RefillReasonCommentsThyroid ProblemReasonCommentsMNT - IndividualSpecialtyDiagnoses / ProceduresReferred By ContactReferred To ContactEndocrinology, Diabetes & Metabolism Diagnoses Type 2 diabetes mellitus without complication, without long-term current use of insulin ([facility]) Alexander Chen DO [address] [place] [address] Phone: tel: fax: [facility] [address] [place] [address] Phone: tel: fax: Referral ADAtatusReasonStart DateExpiration DateVisits RequestedVisits [id number] Review Specialty Services Required / FOR RECORDS PERTAINING TO PATIENTS WHO ARE [...] BE BASED ON THE PRIMARY CLINICAL RECORDS. [facility] [employer] [facility]. provides no warranty or guarantee of the accuracy or completeness of information in this document.
[2025-07-06 14:09] LABS: Age Gdln ACOG Testing Note (.); IGP, Aptima HPV, rfx 16/18,45 Note (.)
== END 2025-07-03 12:13 | disposition home or self-care (01) ==
LOC: LAB 12:12
PROVIDERS: PCP Internal Medicine; Visit Provider Obstetrics & Gynecology
DX: Z01.419 Encounter for gynecological examination (general) (routine) without abnormal findings (principal)
CPT/HCPCS: 87624; 88175

== ENCOUNTER 2025-08-20 07:19 | Outpatient (OUT) | payer MEDICARE, OTHER, SELFPAY ==
--- OUTSIDE RECORDS SUMMARY | 2025-08-20 07:23 | XMS_ITS | CCD ---
Author Organization [facility] ion [facility] Care Team Providers Care Plastic Surgery Assistant Name Role Phone AprilAlexanderard Unavailable Rossana Reid Unavailable [phone] ROSANGELA DUMONT Unavailable Unavailabl e YUHAS, ALEXANDER JOSE Unavailable Unavailable LINA ELIZABETH Unavailable Unavailable LINA ELIZABETH Unavailable Unavailable [facility] Unavailable U navailable YUCARLS, ALEXANDER JOSE Unavailable Unavailable LINA ELIZABETH Unavailable Unavailable ROSSANA REID Unavailable Unavailable YUHAS, ALEXANDER JOSE Unavailable Unavailable LINA ELIZABETH Unavailable Unavailable LINA ELIZABETH Unavailable Unavailable YUHAS, ALEXANDER JOSE Unavailable Unavailable LINA ELIZABETH Unavailable Unavailable LINA ELIZABETH Unavailable Unavailable [facility] Unavailable U navailable YUHAS, ALEXANDER JOSE Unavailable Unavailable LINA ELIZABETH Unavailable Unavailable ROSSANA REID Unavailable Unavailable YUCARLS ALEXANDER JOSE Unavailable Unavailable Alexander Chen Primary Care Provider [phone] SHEREE VILLAR Referring Unavailable ALEXANDER CHEN Primary Care Unavailable DR ТАТЬЯНА JONES JR Admitting UnavailDR ТАТЬЯНА Pena JR Attending Unavailantoni e APRIL, DR MUNOZ Primary Care Unavailable SOFIA, DR YESENIA Russell Consulting Unavailable KAREN MENJIVAR, DR ТАТЬЯНА Sorto Consulting Unavailantoni e NOA, DR PAK Admitting Unavailable NOA, DR PAK Attending Unavailable APRIL, DR MUNOZ Primary Care Unavailable PRICEDALE, DR LANEY Diaz Consulting Unavailable NOA, DR PAK Consulting Unavailable NOA, DR PAK Admitting Unavailable NOA, DR PAK Attending Unavailable APRIL, DR MUNOZ Primary Care Unavailable NOA, DR PAK Consulting Unavailable ALEXANDER CHEN Primary Care Physician LeonorcarlsDO Munoz Primary Care Provider MD Mati Underwood Attending Provider Leonorhas, DO Munoz Primary Care Provider MD Pancho Underwood Attending Provider [phone] Fredos, DO Munoz Primary Care Provider [phone] DIANE Stanley-C Carlotta Sorto Attending Provider Alexander Chen MD Primary Care Provider ALEXANDER CHEN Referring Unavailable ALEXANDER CHEN Primary Care Unavailable ALEXANDER CHEN Referring Unavailable FREDOSALEXANDER Primary Care Unavailable Orzech, Leann X Admitting Unavailable Orzech, Leann X Attending Unavailable GERRYANDRE FISHER E Attending Unavailable GERRYJOSSELYNANDRE E Attending Unavailable GERRYANDRE E Attending Unavailable GERRY, ANDRE E Attending Unavailable GERRY, ANDRE E Attending Unavailable GERRY, ANDRE E Attending Unavailable GERRY, ANDRE E Attending Unavailable GERRY, ANDRE E Admitting Unavailable Kasandra Christopher Admitting Unavailable Kasandra Christopher Attending Unavailable Alexander Chen DO Primary Care Provider Alexander Chen DO Primary Care Provider Alexander Chen MD Primary Care Provider Alexander Chen Primary Care Unavailable Carlotta Stanley Admitting Unavailable Carlotta Stanley Attending Unavailable Sophy Riddle Admitting Unavail able Sophy Riddle Attending Unavail able Alexander Chen Primary Care Unavailable Alexander Chen DO Primary Care Provider KOBI LATHAM Attending Unavailable MAURO LEVIN Attending Unavailable MAURO LEVIN Attending Unavailable OLIMPIA SHEPHERD Attending Unavailable ALEXANDER CHEN Attending Unavailable FREDOSALEXANDER Referring Unavailable YUHASALEXANDER Primary Care Unavailable ALEXANDER CHEN Attending Unavailable [...] L Primary Care Unavailable YUHAS, ALEXANDER L Admitting Unavailable YUHAS, ALEXANDER L Attending Unavailable YUHAS, [...] Unavailable YUHAS, ALEXANDER L Primary Care Unavailable Jillian Nieves Attending Unavailable Jillian Nieves Admitting Unavailable Provider, None Primary Care Unavailable LINA SCHWAB Admitting Unavailable LINA SCHWAB Attending Unavailable YUHAS, ALEXANDER Sorto Primary Care Unavailable LINA SCHWAB Admitting Unavailable LINA SCHWAB Attending Unavailable YUHAS, ALEXANDER Sorto Primary Care Unavailable [place], Jillian Bajwa Admitting Unavailable [place], Jillian Bajwa Attending Unavailable ALEXANDER CHEN Primary Care Unavailable [place], Jillian M Admitting Unavailable [place], Jillian Bajwa Attending Unavailable ALEXANDER CHEN Primary Care Unavailable Provider, None Primary Care Unavailable [place], Jillian Bajwa Admitting Unavailable [place], Jillian Bajwa Attending Unavailable [facility] DO, Alexander Garcia Primary Care Unavailab le [place] [facility], Jillian Hernandez Attending U navailable [facility], Alexander Jose Primary Care Unavailab corrine Schwab MD, Lina Ignacio Attending [facility] lable [place] [facility], Jillian Hernandez Attending [facility], Alexander Garcia Primary Care Unavailab corrine Schwab MD, Lina Ignacio Attending [facility], Alexander Garcia Primary Care Unavailab le Yuhas DO, Alexander Garcia Primary Care Unavailab le [place] [facility], Jillian Hernandez Attending U [facility] Allergies Allergy ClassificationReported Allergen(s)Allergy TypeDate of OnsetReaction(s) FacilityCorticosteroids (1 source)predniSONEDrug Riucbcl47-08-5605OcomqcbmMlhtaejnm Regional Medical CenterLithium (1 source)LithiumDrug Dlqjciq57-17-6891nb states put me in a coma [facility] Administrationlubiprostone (1 source)lubiprostoneDrug Urixfyh58-07-3274ZNXYORQMEhwynsyjfLake County Memorial Hospital - Westmilnacipran (1 source)milnacipranDrug Wadufxo17-59-3403YkyeuspgvEvqncgccv Regional Medical CenterNSAIDs (1 source)meloxicamDrug Hxbtdnw00-73-3610hvphb in urineVeterans Health AdministrationPenicillins (antibiotic) (1 source)AmoxicillinDrug Pxkynhl30-08-3828GozciWcpvnynarUniversity Hospitals Geneva Medical Centererotonin Reuptake Inhibitors (SSRIs) (1 source)SertralineDrug Brbzocn39-61-1351Xoqze PainVeterans Health Administrationvortioxetine (1 source)vortioxetineDrug Ibydqfy40-79-6870JgnzmhycZiaggczrgFisher-Titus Medical Center (20 sources)erythromycin; Translations: [ERYTHROMYCIN]Propensity to adverse reactions to tdtu79-73-4819Wredc (See Comments), Unknown (qualifier value), Hives, Abnormal BehaviorWright-Patterson Medical Center Work Phone: (20 sources)lithium; Translations: [LITHIUM]Propensity to adverse reactions to wkus39-62-4377Nnjhe (See Comments), Unknown (qualifier value), Hives, Confusion [facility] Work Phone: (20 sources)predniSONE; Translations: [PREDNISONE]Propensity to adverse reactions to dmdk94-85-9373Dzzzcxuq, Unknown (qualifier value)[facility] Work Phone: (20 sources)sertraline; Translations: [SERTRALINE]Propensity to adverse reactions to oxgf45-30-4494Jtxbn (See Comments), Unknown (qualifier value), HivesWright-Patterson Medical Center Work Phone: (20 sources)Penicillins; Translations: [PENICILLINS]Propensity to adverse reactions to drug (disorder)43-64-9599IwlrmRoto Health Two Repository (20 sources)vortioxetine; Translations: [VORTIOXETINE]Drug Ysgzttf83-19-7269 [facility]ausea And VomitingH[facility] Repository (20 sources)milnacipranDrug Wrpywkz74-41-6464V[facility] Work Phone: (7 sources)Amoxicillin; Translations: [amoxicillin]Drug Fxbimuc73-23-7075Ptzrm [facility] Repository (20 sources)Erythromycin; Translations: [erythromycin base]Drug Allergy 32-96-1145Couxjtfszzyxarke UpsetTOur Lady of [facility] Repository (1 source)LithiumDrug Agglgzg92-50-6523UuhMetrohealth Main Campus Medical Center Repository (1 source)meloxicamDrug AllergyMetrohealth Main Campus Medical Center Repository (7 sources)meloxicam; Translations: [MELOXICAM]Drug Kywhqtz20-25-3959tkjys in urineMetrohealth Main Campus Medical Center Repository (2 sources)milnacipran; Translations: [Savella]Drug Ujugdlj45-67-1463NyxMetrohealth Main Campus Medical Center Repository (1 source)predniSONEDrug Izwqnky45-53-8980TkjMetrohealth Main Campus Medical Center Repository (4 sources)Sertraline; Translations: [Zoloft]Drug AllergyMetrohealth Main Campus Medical Center Repository (11 sources)vortioxetine; Translations: [vortioxetine]Drug AllergyBlood in urine (finding)[facility] Repository (20 sources)Amoxicillin; Translations: [amoxicillin]Drug Rhkoeey11-58-0459Pnxk (disorder), HivesExecutive Urology of [facility] [place] (20 sources)milnacipran; Translations: [milnacipran]Drug Aycrhlx52-34-4405 Unknown (qualifier value), Other (See Comments)[facility] (20 sources)lubiprostoneDrug Pqxdbxs77-56-7818RD[facility] (20 sources)lurasidoneDrug Elvmxog58-95-9273MOCY [facility] (20 sources)meloxicamDrug Qgfniwe59-28-3985LPRG [facility] (20 sources)milnacipranDrug Qeamzfo86-49-4788NgnlxDVKU Healthcare (20 sources)PrednisoneAllergy to iklgofhbs52-75-7956NtixreznSORC Healthcare (20 sources)sevelamer; Translations: [SEVELAMER]Drug Iqpondj44-00-4050JCMJ Healthcare (20 sources)LITHIUM ANALOGUES; Translations: [LITHIUM ANALOGUES]Propensity to adverse reactions to drug (disorder)66-37-6976Lfziz (See Comments)[facility] Repository (20 sources)meloxicamDrug Ugixuer81-84-0757YzvGqrhbb Health System Work Phone: (20 sources)sevelamerDrug Uuubqjc31-40-4074Whhls, AnaphylaxisProMemorial Health System [facility] (20 sources)Azithromycin; Translations: [AZITHROMYCIN]Drug Eiqbyaa08-30-9376 [facility] (1 source)AmoxicillinDrug Wxoejyb12-91-9670HzadiushvVeterans Health Administration Repository (1 source)ErythromycinDrug Kibgzwi68-37-9858QyugklfszVeterans Health Administration Repository (1 source)LithiumDrug Ymrwqtp57-04-5760XhapkmkppVeterans Health Administration Repository (1 source)lubiprostoneDrug Gpddadf19-30-5449CjrrriwefVeterans Health Administration Repository (1 source)meloxicamDrug Wtvcguv19-98-1186FzvwxbpytVeterans Health Administration Repository (1 source)milnacipranDrug Gckrgdc79-95-6072OjqptcjnnVeterans Health Administration Repository (1 source)predniSONEDrug Wyfvjlp23-86-1997NkapdmejwVeterans Health Administration Repository (1 source)SertralineDrug Bnzkbdj50-83-8912BjyhkicxoVeterans Health Administration Repository (1 source)lurasidone; Translations: [Latuda]Drug AllergyMetrohealth [facility] Repository Medications Current Medications MedicationDrug Class(es)DatesSig (Normalized)Sig (Original)acetaminophen 325 mg / butalbital 50 mg / caffeine 40 mg / codeine phosphate 30 mg oral capsule (20 sources)Opioid Agonist, Barbiturate, Central Nervous System Stimulant, MethylxanthineStart: 01-15-2025 End: 91-93-9155qkbg 1 capsule by mouth every six hours as needed powtvuodwn-atvvdvluve-brb-cod (FIORICET WITH CODEINE) 30-810-56-30 mg per capsule Take 1 capsule bymouth every 6 (six) hours as needed. 01/15/2025 Active Start: 07-68-9943vtezyzdrgjwcu/butalbital/caffeine/codeine 300 mg-50 mg-40 mg-30 mg oral capsule 2 cap(s), Oral, Migraine headache, Refill(s) 0 Start Date: 12/08/19 Status: Orderedacetaminophen 325 mg / oxyCODONE hydrochloride 5 mg oral tablet (7 sources)Opioid AgonistStart: 43-01-3195iitw 1 tablet by mouth three times dailyOxycodone-Acetaminophen (Percocet) 5-325 mg Tablet Active 1 TAB PO Three times daily February 02, 202012:00amStart: 11-11-2017 End: 06-81-1336eqjp 1 tablet by mouth once as needed [...] tablet 0 11/11/2017 11/18/2017 ActiveStart: 11-09-2017 End: 67-34-7792jiql 1-2 tablets by mouth every four hours as needed End: 58-45-0679kkaj 1 tablet by mouth every six hours as neededoxyCODONE- acetaminophen (PERCOCET) 5-325 mg per tablet Take 1 tablet by mouth every 6 (six) hours as needed for pain TAKES 1 TABLET . 11/11/2017 Discontinuedaspirin 81 mg delayed release oral tablet (20 sources)Nonsteroidal Anti-inflammatory DrugStart: 87-44-8165bvxa 81 mg by mouth once daily at bedtimeAspirin Active 81 MG PO Daily at bedtime February 02, 2020 12:00amStart: 57-79-1448iwfu 1 mg by mouth once dailyaspirin 81 mg oral tablet mg tab(s), Oral, Daily, Refills(s) 0 Start Date: 12/08/19 Status: Ordered aspirin 81 mg chewable tablet Chew 1 tablet (81 mg total) and swallow. Active take 2 tablets by mouth once dailyaspirin 81 MG chewable tablet Take 162 mg by mouth daily 0 Active End: 80-24-9891tlwg 1 tablet by mouth onceaspirin 81 MG [...] Barbiturate, Nonsteroidal Anti-inflammatory Drug, Central Nervous System Stimulant,Vitififjdilpfrbjzsdxt-jkribzvszm-FKV-caff (dpmfyswpop-gumihui-xqfudhdu-codeine) capsule Indications: MIGRAINES Take 1 capsule by mouth continuous as needed for pain TAKES 2 TABLETS, EACH TABLET IS 30 MG ReasonsMIGRAINES. Activeatorvastatin 80 mg oral tablet (20 sources)HMG-CoA Reductase InhibitorStart: 01-04-2024 End: 08-06-8062goulneiudqob (LIPITOR) 80 mg tablet Indications: Mixed hyperlipidemia TAKE 1 TABLET IN THE MORNING 90 tablet 3 07/02/2025 ActiveStart: 99-77-2902nsqr 1 mg by mouth once dailyLipitor 40 mg Tab mg tab(s), Oral, Daily, Refills(s) 0 Start Date: 12/08/19 Status: OrderedStart: 11-09-2017 End: 77-89-3583baasckzu 10 mg oral tablet (20 sources)gamma-Aminobutyric Acid-ergic AgonistStart: 92-92-3893neeoxskz (LIORESAL) 10 mg tablet Indications: Cervical spondylosis with radiculopathy TAKE 1 TABLETFOUR TIMES A DAY 360 tablet 3 07/17/2025 ActiveStart: 08-02-2024 End: 90-53-3189irslrmxl (LIORESAL) 10 mg tablet Indications: Cervical spondylosis with radiculopathy TAKE 1 TABLETFOUR TIMES A DAY 360 tablet 01/03/2025 07/17/2025 DiscontinuedStart: 20-27-7729JRHGBZIX 10 MG TABLET BACLOFEN 10 MG TABLET Start Date: 08/25/23 Status: OrderedStart: 06-19-3228aixb 20 mg by mouth four times dailyBaclofen Active 20 MG PO Four times daily February 02, 2020 12:00amStart: 62-14-2407dyiy 1 tablet by mouth four times daily baclofen 20 mg Tab 20 mg = 1 tab(s), Oral, QID, Refills(s) 0 Start Date: 12/08/19 Status: OrderedStart: 11-09-2017 End: 04-32-5073rqtb 1 tablet by mouth four times dailybaclofen (LIORESAL) 20 MG tablet Indications: FIBROMYALGIA Take 20 mg by mouth 4 (four) times a dayTAKES 1 TABLET ReasonsFIBROMYALGIA. Activebetamethasone / clotrimazole (4 sources)Azole Antifungal, CorticosteroidStart: 23-18-6846jbwxr 15 g topically once dailyLotrisone Active 15 GM TOPICAL Daily February 01, 2020 11:00pmStart: 66-15-1580nfrhf 15 g topically once dailyLotrisone Active 15 GM TOPICAL Daily February 02, 2020 12:00amStart: 11-10-2017 End: 15-45-9393zhqtkctqgkzd-betamethasone (LOTRISONE) creambiotin 1 mg oral tablet (20 sources)Start: 97-39-3489cbmvtn 1000 MCG tablet See Instructions, Instructions: 2tab(s) Oral Daily and 1 tab at night, 0 Refill(s) 11/15/2023 ActiveStart: 77-97-5260pmbb 2 tablets by mouth once dailybiotin 1000 mcg oral tablet 2,000 mcg = 2 tab(s), Oral, Daily, # 30 tab(s), Refills(s) 0 Start Date: 02/04/21 Status: Orderedtake 1 tablet by mouth at bedtimeBIOTIN ORAL Take 1 tablet by mouth in the morning and at bedtime. Zzdexs72 hr buPROPion hydrochloride 300 mg extended release oral tablet (20 sources)AminoketoneStart: 24-81-7911wsRLIJddt XL (Wellbutrin XL) 300 MG 24 hr tablet 01/13/2023 ActiveStart: 23-65-0197pqks 150 mg by mouth once daily in the morningBupropion Hcl Active 150 MG PO Every morning February 02, 2020 12:00am Start: 56-43-6647oowd 1 mg by mouth twice dailybuPROPion 150 mg ER Tab mg tab(s), Oral, BID, Refills(s) 0 Start Date: 12/08/19 Status: OrderedbusPIRone hydrochloride 10 mg oral tablet (20 sources)Start: 02-04-2021 End: 55-43-0874ciaXGImsj (BUSPAR) 10 mg tablet Take 1 tablet (10 mg total) by mouth. 02/04/2021 ActiveStart: 87-90-3589illw 10 mg by mouth once daily in the morningBuspirone Active 10 MG PO Every morning February 02, 2020 12:00amStart: 41-77-6821fbvz 20 mg by mouth once daily in the eveningBuspirone Active 20 MG PO Every evening February 02, 2020 12:00amcholecalciferol 0.125 mg oral tablet (20 sources)Vitamin DStart: 03-20-4000znbs 1 tablet by mouth once daily Cholecalciferol [...] mg/ml ophthalmic suspension (15 sources)Calcineurin Inhibitor ImmunosuppressantStart: 97-52-0994zunw 1 drop(s) into the eye(s) every twelve hoursCyclosporine (Restasis) 0.05 % Dropperette Active 1 DROPS EYE-BOTH Q12H February 02, 2020 12:00am End: 15-61-1448joxloRYFUGFC (Restasis) 0.05 % ophthalmic emulsion every 12 [...] a day TAKES 1 TABLET ReasonsGastroesophageal Reflux. Activefamotidine 40 mg oral tablet (20 sources)Histamine-2 Receptor AntagonistStart: 03-18-2023 End: 65-43-2704hwmddhozsh (PEPCID) 40 mg tablet Indications: Gastroesophageal reflux disease, unspecified whether esophagitis present TAKE 1 TABLET IN THE MORNING 90 tablet 1 01/22/2025 ActiveFeroSul 325 mg oral tablet (6 sources)Start: 55-42-2138AnlkKtm 325 mg oral tablet Refills(s) 0 Start Date: 08/25/23 Status: Orderedferrous sulfate 325 mg oral tablet (20 sources)Start: 02-02-2020 End: 08-65-5770katk 1 tablet by mouth in the morning, then take 1 tablet by mouth at mealtimeferrous sulfate (FeroSuL) 325 (65 FE) mg tablet Indications: Iron deficiency anemia due to chronic blood loss Take 1 tablet (325 mg total) by mouth in the morning and 1 tablet (325 mg total) in the evening. Take with meals. 180 tablet 1 06/13/2024 ActiveFish Oils (7 sources)Start: 96-07-8352Rfmf Oil 1,200 mg, Oral, Refill(s) 0 Start Date: 02/04/21 Status: Jduyqsq102 actuat fluticasone propionate 0.23 mg/actuat / salmeterol 0.021 mg/actuat metered dose inhaler (20 sources)Corticosteroid, beta2-Adrenergic AgonistStart: 01-31-2023 End: 73-98-5837rheyofiaypz propion-salmeteroL (ADVAIR HFA) 230-21 mcg/actuation inhaler Indications: Mild persistent asthma without complication USE 2 INHALATIONS TWICE A DAY 36 g 3 12/25/2024 ActiveStart: 76-35-4953tcla 2 puff(s) by inhalation twice dailyAdvair HFA 230 mcg-21 mcg Aerosol 2 puff(s), Inhalation, BID, Refill(s) 6 Start Date: 02/04/21 Status: OrderedStart: 36-22-6877ivon 1 puff(s) by inhalation twice dailyFluticasone Propion-Salmeterol (Advair Hfa) 230-21 mcg/actuation Hfa Aerosol Inhaler Active 2 PUFF INHALATION Twice daily February 01, 2020 11:00pmStart: 05-37-3295wumz 1 puff(s) by inhalation twice dailyFluticasone Propion-Salmeterol (Advair Hfa) 230-21 mcg/actuation Hfa Aerosol Inhaler Active 2 PUFF INHALATION Twice daily February 02, 2020 12:00am FLUTICASONE/SALMETEROL (ADVAIR HFA INHL) Indications: ASTHMA Inhale 2 (two) times a day DOES 2 PUFFS ReasonsASTHMA. Activefolic acid 1 mg oral tablet (20 sources)Start: 42-64-7691lotfq acid (FOLVITE) 1 mg tablet Indications: Iron deficiency anemia, unspecified iron deficiency anemia type TAKE 1 TABLET DAILY 90 tablet 3 08/07/2024 Activegabapentin 300 mg oral capsule (20 sources)Anti-epileptic AgentStart: 02-02-2020 End: 10-19-3088teucxtqocx (Neurontin) 300 MG capsule Indications: Lumbar radiculopathy TAKE 1 CAPSULE IN THE MORNING AND 1 CAPSULE AT NOON AND 1 CAPSULE IN THE EVENING AND 1 CAPSULE BEFORE BEDTIME 360 capsule 3 06/07/2024 Active Start: 44-73-2125ckgv 1 mg by mouth every six hoursNeurontin 300 mg Cap mg cap(s), Oral, q6hr, Refills(s) 0 Start Date: 12/08/19 Status: OrderedStart: 11-09-2017 End: 41-91-4856iopg 2 capsules by mouth every six hours for pain and painStart: 75-76-5511rdop 0.5 tablet by mouth three times dailygabapentin (NEURONTIN) 600 MG tablet Take 0.5 tablets by mouth 3 times daily 90 tablet 3 09/28/2016Active take 1 tablet by mouth four times dailygabapentin (NEURONTIN) 600 MG tablet Indications: Neuropathic Pain Take 600 mg by mouth 4 (four) times a day TAKES 1 TABLET ReasonsNeuropathic Pain. Active1 ml galcanezumab-gnlm 120 mg/ml auto-injector (20 sources)Start: 42-12-0755Nbmnrgnd 120 MG/ML auto-injector Indications: Migraine without aura and without status migrainosus,not intractable INJECT 1 PEN (120 MG) UNDER THE SKIN EVERY 30 DAYS 3 mL 3 04/04/2025 ActiveStart: 02-18-2024 End: 43-18-3500uimskuvblygd (Emgality) 120 MG/ML auto-injector Indications: Migraine without aura and without status migrainosus, not intractable (CMS/HCC) Inject 1 Syringe (120 mg) under the skin every 30 (thirty)days 3 each 3 02/18/2024 02/17/2025 ActiveStart: 61-94-2008Tbgrawxbuofp-Gnlm (Emgality Syringe) 120 mg/mL Syringe Active 120 MG SUBCUT Q30D February 02, 2020 12:00am Start: 68-89-7662xqiukp 1 mg by subcutaneous injection every monthEmgality Prefilled Pen 120 mg/mL subcutaneous solution SubCutaneous, qMonth, Refills(s) 0 Start Date: 12/08/19 Status: Orderedicosapent ethyl 1000 mg oral capsule (20 sources)Start: 07-28-2024 End: 85-57-0281fjpvgoxxt ethyL (VASCEPA) 1 gram capsule Indications: Mixed hyperlipidemia TAKE 1 CAPSULE IN THE MORNING AND 1 CAPSULE BEFORE BEDTIME 180 capsule 3 12/26/2024 Activelatanoprost 0.05 mg/ml ophthalmic solution (3 sources)Prostaglandin AnalogStart: 51-75-0183palx 1 drop(s) into the eye(s) once daily in the eveningLatanoprost Active 1 DROPS EYE-BOTH Every evening February 02, 2020 12:00amlinaclotide (9 sources)Guanylate Cyclase-C AgonistStart: 71-45-7356iltz 1 capsule by mouth once dailyLinaclotide (Linzess) 290 mcg Capsule Active 290 MCG PO Daily February 01, 2020 11:00pmStart: 57-64-5673enfo 1 capsule by mouth once dailyLinaclotide (Linzess) 290 mcg Capsule Active 290 MCG PO Daily February 02, 2020 12:00am End: 26-35-6520qbqoXXMtqbf (LINZESS PO) Take by mouth 09/22/2024 Discontinued linaCLOtide (LINZESS PO) Take by mouth Activelithium carbonate 300 mg oral tablet (2 sources) End: 64-96-8565zevj 1 tablet by mouth three times dailylithium 300 MG tablet Take 300 mg by mouth 3 times daily 0 Activeloratadine 10 mg oral tablet (20 sources)loratadine (Claritin) 10 MG tablet 1 (one) time each day at the same time. Qepknv60 hr loratadine 10 mg / pseudoephedrine sulfate 240 mg extended release oral tablet (5 sources)alpha-Adrenergic AgonistStart: 60-63-8448lkyk 1 tablet by mouth once daily at [...] oral tablet (11 sources)Angiotensin 2 Receptor BlockerStart: 19-80-7157hfrp 1 tablet by mouth once dailyLosartan (Cozaar) 50 mg Tablet Active 50 MG PO Daily February 02, 2020 12:00am End: 56-91-0556eyebjvtr (Cozaar) 100 MG tablet 1 (one) time each day at the same time. 06/26/2024 Discontinuedlurasidone hydrochloride 40 mg oral tablet (1 source)Atypical AntipsychoticStart: 80-09-9452egdr 1 mg by mouth once daily Latuda 40 mg oral tablet mg tab(s), Oral, Daily, Refills(s) 0 Start Date: 12/08/19 Status: Orderedmetoclopramide 10 mg oral tablet (20 sources)Dopamine-2 Receptor AntagonistStart: 08-02-2024 End: 80-70-1368axqnvfzpdccjpx (REGLAN) 10 mg tablet Indications: Gastroesophageal reflux disease, unspecified whether esophagitis present TAKE 1 TABLET IN THE MORNING AND 1 TABLET BEFORE BEDTIME 180 tablet 05/08/2025 Active Start: 73-12-2914ogak 1 tablet by mouth three times dailyReglan 10 mg Tab 10 mg = 1 tab(s), Oral, TID, Refills(s) 0 Start Date: 02/04/21 Status: OrderedStart: 11-10-2017 End: 37-46-3100pxpyrquukqkydp (REGLAN) injection 10 mgStart: 11-10-2017 End: 75-78-1036doquxulipvbpof (REGLAN) 5 mg/mL injection - ADS Override Pull Start: 11-10-2017 End: 86-86-5807fcwfcsqfpvsozz (REGLAN) injection 10 mgmetoclopramide (Reglan) 10 MG tablet every 8 (eight) hours. Activemometasone furoate 0.05 mg/actuat metered dose nasal spray (1 source)Corticosteroidmometasone (NASONEX) 50 MCG/ACT nasal spray 2 sprays by Nasal route daily 0 Activemontelukast 10 mg oral tablet (20 sources)Leukotriene Receptor AntagonistStart: 08-01-2024 End: 63-21-2768outfhighwia (SINGULAIR) 10 mg tablet Indications: Mild persistent asthma without complication TAKE 1 TABLET DAILY 90 tablet 3 02/08/2025 Active Start: 09-21-4206rdtt 1 tablet by mouth once daily in the eveningMontelukast (Singulair) 10 mg Tablet Active 10 MG PO Every evening February 02, 2020 12:00am Start: 11-09-2017 End: 35-56-3032yztqiuoeyq hydrochloride 50 mg oral tablet (20 sources)Opioid Antagonisttake 1.5 mg by mouth in the morningnaltrexone (REVIA) 50 mg tablet Take 1.5 mg by mouth in the morning. Activenaltrexone (Depade) 50 MG tablet Take by mouth Activenitrofurantoin, macrocrystals 25 mg / nitrofurantoin, monohydrate 75 mg oral capsule (3 sources)Nitrofuran AntibacterialStart: 09-24-2023 End: 26-54-6446zcqb 1 capsule by mouth twice dailyMacrobid 100 mg Cap 100 mg = 1 cap(s), Oral, BID, X 7 day(s), # 14 cap(s), Refills(s) 0, Pharmacy: [id number], 165, cm, 08/25/23 12:52:00 EST, Height/Length Dosing, 97, kg, 08/25/23 12:52:00 EST, Weight Dosing Start Date: 09/24/23 Stop Date: 10/01/23 Status: Orderednystatin 100 unt/mg topical powder (20 sources)Polyene AntifungalStart: 57-57-0237hauagogv (NYSTOP) powder Indications: An rash of groin APPLY 1 APPLICATION TOPICALLY TWICE A DAY NEEDED (RASH OR ITCHING) 60 g 2 03/07/2024 ActiveStart: 70-40-0708Fhecbmed (Nyamyc) 100,000 unit/gram Powder Active 1 APPLIC TOPICAL Twice daily February 02, 2020 12:00amStart: 11-10-2017 End: 37-36-8063cljyzmxh (MYCOSTATIN) powderondansetron 4 mg oral tablet (15 sources)Serotonin-3 Receptor AntagonistStart: 09-27-1955mcso 2 tablets by mouth twice dailyOndansetron Hcl (Zofran) 4 mg Tablet Active 2 TAB PO Twice daily February 02, 2020 12:00amStart: 11-11-2017 End: 55-08-0997vzkvvjeznqs (ZOFRAN-ODT) disintegrating tablet 4 mgStart: 11-09-2017 End: 40-00-7459uknz 4 mg intravenous route every six hours as needed End: 70-83-0042rosghxjxlhi (Zofran) 4 MG tablet 1 (one) time each day at the same time. 06/26/2024 Discontinuedpantoprazole 40 mg delayed release oral tablet (20 sources)Proton Pump InhibitorStart: 02-02-2020 End: 82-67-4953hhgx 1 tablet by mouth once daily before breakfastpantoprazole (PROTONIX) 40 mg EC tablet Indications: Gastroesophageal reflux disease, unspecified whether esophagitis present Take 1 tablet (40 mg total) by mouth every morning before breakfast. TAKE1 TABLET IN THE MORNING AND AT BEDTIME 01/29/2025 ActiveStart: 76-11-7269byrz 1 tablet by mouth twice dailyPantoprazole [address] Tab 40 mg = 1 tab(s), Oral, BID, Refills(s) 0 Start Date: 12/08/19 Status: OrderedStart: 11-09-2017 End: 24-45-269446 hr propranolol hydrochloride 60 mg extended release oral capsule (20 sources)beta-Adrenergic BlockerStart: 02-18-2024 End: 57-52-8815fgwcppsuuyc LA (Inderal LA) 60 MG 24 hr capsule Indications: Migraine without aura and without status migrainosus, not intractable TAKE 1 CAPSULE DAILY. DO NOT CRUSH, CHEW OR SPLIT 90 capsule 3 05/02/2025 Activetake 1 tablet by mouth in the morningpropranoloL (INDERAL) 60 mg tablet Take 1 tablet (60 mg total) by mouth in the morning. ActiveQUEtiapine 50 mg oral tablet (20 sources)Atypical AntipsychoticStart: 83-35-0165zsms 1 tablet by mouth once dailyQUEtiapine (SEROquel) 50 mg tablet Take 1 tablet (50 mg total) by mouth nightly. 11/15/2024 ActiveStart: 06-09-2254xrbb 1 tablet by mouth once daily QUEtiapine (SEROquel) 400 mg tablet Take 1 tablet (400 mg total) by mouth nightly. 08/19/2022 ActiveStart: 35-42-0428Cisiksplea (Seroquel Xr) 300 mg Tablet Extended Release 24 Hr Active 600 MG PO Daily at bedtime 2019 12:00amStart: 53-37-9148dxxm 50 mg by mouth once daily in the eveningSeroquel 50 mg, Oral, qPM, Refills(s) 0 Start Date: 12/08/19 Status: OrderedStart: 11-09-2017 End: 07-84-0531YVJvrfwhdu (SEROQUEL) 25 MG tablet Take 200 mg by mouth nightly 0 Activetake 300 mg by mouth onceQUEtiapine (SEROQUEL) 200 MG tablet Indications: BIPOLAR Take 300 mg by mouth nightly TAKES 1 TABLET . Activesennosides, assisted 17.2 mg oral tablet (20 sources)Start: 33-04-1480lawv 2 tablets by mouth once daily at bedtime Sennosides (Senna) 8.6 mg Tablet Active 17.2 MG PO Daily at bedtime February 02, 2020 12:00amStart: 12-54-0095cufmotpiez 17.2 MG tablet 17.2 mg 11/15/2023 Active levothyroxine sodium 0.05 mg oral tablet (20 sources)l-ThyroxineStart: 01-31-2025 End: 88-59-2523peoihpcpikxib (SYNTHROID, LEVOTHROID) 50 MCG tablet Indications: Hypothyroidism, unspecified type TAKE 1 TABLET EVERY MORNING 90 tablet 3 07/09/2025 ActiveStart: 77-20-4492msdtnwazznutw (SYNTHROID, LEVOTHROID) 50 MCG tablet Indications: Hypothyroidism, unspecified type TAKE 1 TABLET DAILY 90 tablet 1 08/07/2024 ActiveStart: 26-88-8995nggp 1.5 tablets by mouth once daily levothyroxine 50 mcg (0.05 mg) Tab 1.5 tab, Oral, Daily, # 30 tab(s), Refills(s) 0 Start Date: 02/04/21 Status: OrderedStart: 11-10-2017 End: 87-14-9608Uskqw: 12-13-3838rrog 1 tablet by mouth once daily at bedtime Levothyroxine (Synthroid) 25 mcg Tablet Active 25 MCG PO Daily at bedtime February 02, 2020 12:00amtiZANidine 4 mg oral tablet (3 sources)Central alpha-2 Adrenergic AgonistStart: 48-97-6353tzri 4 mg by mouth once daily at bedtimeTizanidine Active 4 MG PO Daily at bedtime February 06, 2020 12:00amubrogepant 100 mg oral tablet (20 sources)Start: 01-15-2025 End: 55-43-2067DNZBLBE 100 mg tablet Take 1 tablet by mouth. 01/15/2025 01/15/2026 ActiveStart: 11-26-2023 End: 48-97-7522Qgcpntvuaf (Ubrelvy) 100 MG tablet Indications: Migraine without aura and without status migrainosus, not intractable (CMS/HCC) Ubrelvy 100 mg tablet 30 tablet 11 11/26/2023 06/26/2024 Discontinuedvalsartan 80 mg oral tablet (20 sources)Angiotensin 2 Receptor BlockerStart: 08-02-2024 End: 49-55-8548btpsniykr (DIOVAN) 80 mg tablet Indications: Essential hypertension TAKE 1 TABLET DAILY AT NOON 90 tablet 1 04/13/2025 ActiveStart: 01-87-3268plhr 1 tablet by mouth once dailyvalsartan 160 mg Tab 160 mg = 1 tab(s), Oral, Daily, Refills(s) 0 Start Date: 02/04/21 Status: Skuster90 hr venlafaxine 150 mg extended release oral capsule (7 sources)Serotonin and Norepinephrine Reuptake InhibitorStart: 33-25-6635kcce 1 capsule by mouth once dailyVenlafaxine (Effexor Xr) 150 mg Capsule,Extended Release 24hr Active 150 MG PO Daily February 02, 202012:00amStart: 11-10-2017 End: 76-91-7591avmq 3 capsules by mouth once dailyvenlafaxine (EFFEXOR XR) 150 MG extended release capsule Take 450 mg by mouth daily 0 Activetake 1 capsule by mouth once daily in the morningvenlafaxine (EFFEXOR-XR) 150 MG 24 hr capsule Indications: DEPRESSION Take 150 mg by mouth every morning TAKES 3 TABLETS ReasonsDEPRESSION. Activeverapamil hydrochloride 80 mg oral tablet (20 sources)Calcium Channel BlockerStart: 01-15-2025 End: 94-35-1202ivhv 1 tablet by mouth in the morningverapamiL (CALAN) 80 mg tablet Take 1 tablet (80 mg total) by mouth in the morning. 01/15/202501/15 Activevitamin b12 1 mg oral tablet (20 sources)Vitamin F36Iyflk: 05-10-2024 End: 89-82-3055kmzn 1 tablet by mouth once daily in the morningcyanocobalamin 1000 MCG tablet Indications: Cobalamin deficiency take 1 tablet by mouth every morning 90 tablet 1 05/10/2024 ActiveVitamin B12 1000 mcg Tab (7 sources)Start: 10-08-0336ckgc 1 tablet by mouth once dailyVitamin B12 1000 mcg Tab 1,000 mcg = 1 tab(s), Oral, Daily, # 30 tab(s), Refills(s) 0 Start Date: 02/04/21 Status: OrderedVitamin D3 (7 sources)Start: 43-99-2527Xfzibdh D3 5,000 International_Unit, Oral, Daily, Refills(s) 0 Start Date: 12/08/19 Status: Orderedwarfarin sodium 5 mg oral tablet (20 sources)Vitamin K AntagonistStart: 12-08-2019 End: 18-86-9822oqhkoqad (COUMADIN) 5 mg tablet Indications: Lupus anticoagulant disorder Take 1/2 to 1 tablet OnceDaily [facility] 90 tablet 3 03/23/2025 ActiveStart: 11-11-2017 End: 46-86-3547fjnikrnk (COUMADIN) tablet 7.5 mgStart: 11-10-2017 End: 60-31-0055rhidcsyi (COUMADIN) tablet 5 mgStart: 11-09-2017 End: 59-30-4184yuucorae (COUMADIN) tablet 2.5 mgwarfarin (Coumadin) 5 MG tablet 1 (one) time each day at the same time. Activewarfarin (COUMADIN) 7.5 MG tablet Take 7.5 mg by mouth daily 7. Mg t,w,f,s,s, and 10 mg and 0 Active zolpidem tartrate 10 mg oral tablet (20 sources)gamma-Aminobutyric Acid-ergic AgonistStart: 61-41-7659hpdqqzul (AMBIEN) 10 mg tablet 12/06/2023 Active End: 15-36-7196iybo 1 tablet by mouth oncezolpidem (AMBIEN) 10 mg tablet Indications: Sleep-Onset Insomnia Take 10 mg by mouth nightly TAKES 1.5 TABLETS ReasonsSleep-Onset Insomnia. 11/11/2017 Discontinued Completed/Discontinued Medications MedicationDrug Class(es)DatesSig (Normalized)Sig (Original)acetaminophen 325 mg oral tablet (1 source)Start: 11-09-2017 End: 31-48-8863bnkkctuujivqy (TYLENOL) tablet 975 mgStart: 11-09-2017 End: 79-15-9444hzzrwozirazbu (TYLENOL) tablet 975 mgacetaminophen 300 mg / butalbital 50 mg oral capsule (7 sources)BarbiturateStart: 05-26-2024 End: 57-75-6594znbb 1 capsule by mouth onceButalbital-Acetaminophen 50-300 MG capsule Indications: Migraine without aura and without status migrainosus, not intractable (CMS/HCC) Take 1 capsule by mouth every 12 (twelve) hours if needed (migraine) 60 capsule 2 05/26/2024 06/15/2024 DiscontinuedStart: 11-15-2023 End: 44-82-3571Zuygkooxnv-Acetaminophen 50-300 MG capsule See Instructions, Instructions: 1 cap(s) Oral, PRN: as needed for headache, 0 Refill(s) 11/15/2023 05/26/2024 Discontinued (Reorder)acetaminophen 325 mg / butalbital 50 mg / caffeine 40 mg oral tablet (11 sources)Barbiturate, Central Nervous System Stimulant, MethylxanthineStart: 10-17-2024 End: 60-61-5138ucee 1 tablet by mouth every six hours as needed for headache vrhwcpgeok-hgbrgwdmkwdjb-lmkv (FIORICET, ESGIC) 50-325-40 mg per tablet Take 1 tablet by mouth every 6 (six) hours as needed for headaches or migraine. 10/17/2024 01/29/2025 Discontinued (Duplicate Listing)Start: 06-15-2024 End: 24-20-0781gnwo 1 tablet by mouth every six hours for headache hxvutbtzci-uzjkqgjesybwc-prxxhlgv (Esgic) 50-325-40 MG tablet Indications: Migraine without aura and without status migrainosus, not intractable (CMS/HCC) Take 1 tablet by mouth every 6 (six) hours if needed for headaches or migraine 20 tablet 2 06/15/2024 07/15/2024 Activealbuterol 0.83 mg/ml inhalation solution (20 sources)beta2-Adrenergic AgonistStart: 12-28-2024 End: 55-27-4833jsts 3 mL by inhalation four times dailyalbuterol (PROVENTIL,VENTOLIN) 2.5 mg /3 mL (0.083 %) nebulizer solution Indications: Mild persistent asthma without complication Inhale 3 mL (2.5 mg total) by nebulization 4 (four) times a day. 75 mL 1 12/28/2024 07/03/2025 Discontinued (Duplicate Listing)Start: 82-20-5749rzapghngr (PROVENTIL HFA;VENTOLIN HFA) 90 mcg/actuation inhaler Indications: Mild persistent asthmawithout complication USE 2 INHALATIONS EVERY 6 HOURS NEEDED FOR WHEEZING 17 g 6 11/08/2024 Active Start: 03-08-2024 End: 58-68-8293dtxx 2 puff(s) by inhalation every six hours as needed for wheezingalbuterol (PROVENTIL HFA;VENTOLIN HFA) 90 mcg/actuation inhaler Indications: Mild persistent asthmawithout complication Inhale 2 puffs every 6 (six) hours as needed for wheezing. 18 g 3 03/08/2024 11/08/2024 Discontinued Start: 43-71-3962kjbkzsxty HFA 90 mcg/act inhaler 07/24/2022 ActiveStart: 51-81-3463mxuh 2.5 mg by inhalation four times dailyAlbuterol Sulfate Active 2.5 MG INHALATION Four times daily February 02, 2020 12:00amStart: 04-71-9779ocnhcpypj 2.5 mg, NEB, Refills(s) 0, Asthma Start Date: 12/08/19 Status: Orderedalbuterol (2.5 MG/3ML) 0.083% nebulizer solution every 8 (eight) hours. Activetake 2 puff(s) by inhalation every six hours as needed for wheezingalbuterol sulfate HFA 108 (90 BASE) MCG/ACT inhaler Inhale 2 puffs into the lungs every 6 hours as needed for Wheezing 0 Activealuminum hydroxide 40 mg/ml / magnesium hydroxide 40 mg/ml / simethicone 4 mg/ml oral suspension (1 source)Start: 11-09-2017 End: 99-24-7859tjww 30 mL by mouth every four hours as neededbisacodyl 10 mg rectal suppository (1 source)Stimulant LaxativeStart: 11-09-2017 End: 33-51-1757Troannyjvt-Formoterol Hfa 80 McG-4.5 McG/Actuation Aerosol Inhaler (1 source)Corticosteroid, beta2-Adrenergic AgonistStart: 11-09-2017 End: 76-74-1612pwapvfc chloride 0.0014 meq/ml / potassium chloride 0.004 meq/ml / sodium chloride 0.103 meq/ml / sodium lactate 0.028 meq/ml injectable solution (1 source)Start: 11-09-2017 End: 26-52-2823gsgyvkpz Ringers infusionceFAZolin 2000 mg injection (1 source)Cephalosporin AntibacterialStart: 11-09-2017 End: 39-66-5511lyle 2000 mg intravenous route every eight hoursdiazePAM 5 mg oral tablet (3 sources)BenzodiazepineStart: 11-09-2017 End: 67-80-0777qmmp 2.5 mg by mouth twice dailydiazePAM (VALIUM) 5 MG tablet Indications: DEPRESSION Take 2.5 mg by mouth 2 (two) times a day TAKES 1 TABLET . Activediclofenac sodium 0.01 mg/mg topical gel (20 sources)Nonsteroidal Anti-inflammatory DrugStart: 03-07-2024 End: 65-20-8895zfjffvcnxq sodium (VOLTAREN) 1 % gel Indications: Generalized osteoarthritis APPLY 2 GM TOPICALLY IN THE MORNING, AT NOON, IN THE EVENING, AND BEFORE BEDTIME 300 g 1 03/07/2024 07/03/2025 Discontinued (Ineffective)Start: 39-77-0059jfcrijtkur sodium 1 % gel 11/24/2022 ActiveDiphenhydramine 50 Mg/Ml Injection Solution (3 sources)Histamine-1 Receptor AntagonistStart: 11-10-2017 End: 00-31-9250bwxtqwfmogDTHXW (BENADRYL) injection 25 mgStart: 11-10-2017 End: 38-78-3093kzggeypipzEXHLU (BENADRYL) 50 mg/mL injection - ADS Override Pull Start: 11-10-2017 End: 03-07-0422tsoqzxsxrkLYHUY (BENADRYL) injection 25 mgdocusate sodium 50 mg / sennosides, assisted 8.6 mg oral tablet (5 sources)Start: 11-09-2017 End: 50-33-8648lesad-docusate (SENNA-S) 8.6-50 mg Take 1 (one) tablet to 2 (two) tablets by mouth 2 (two) times a day for 7 days. 20 tablet 0 11/11/2017 11/11/2017 Discontinued1 ml enoxaparin sodium 100 mg/ml prefilled syringe (10 sources)Low Molecular Weight HeparinStart: 06-15-2025 End: 16-99-9965zcvsli 1 mL by subcutaneous injection onceenoxaparin (LOVENOX) 100 mg/mL syringe Indications: Lupus anticoagulant disorder , Personal historyof DVT (deep vein thrombosis) Inject 1 mL (100 mg total) under the skin Every 12 (twelve) hours. 20mL 1 06/15/2025 07/03/2025 Discontinued (Therapy completed) Start: 11-13-2017 End: 66-45-8580lavg 80 mg by subcutaneous injection every twelve hoursenoxaparin (LOVENOX) 80 mg/0.8 mL Syrg Inject 0.8 mL (80 mg total) under the skin every 12 (twelve)hours for 2 days. 5 Syringe 0 11/13/2017 11/15/2017 ActiveStart: 11-11-2017 End: 83-30-5975tesehjeieu (LOVENOX) 40 mg/0.4 mL Syrg Inject 0.4 mL (40 mg total) under the skin daily Take on Wednesday morning 11/12/2017 for 1 day. 1 Syringe 0 11/11/2017 11/12/2017 ActiveStart: 11-10-2017 End: 11-80-9127szzyovanum (LOVENOX) syringe 40 mgStart: 11-05-2017 End: 69-64-7950hcug 80 mg by subcutaneous injection every twelve hoursenoxaparin (LOVENOX) 80 mg/0.8 mL Syrg Inject 0.8 mL (80 mg total) under the skin every 12 (twelve)hours for 6 doses. 6 Syringe 0 11/05/2017 11/08/2017 Activeenoxaparin (LOVENOX) 100 MG/ML injection Inject 1 mg/kg into the skin 2 times daily 0 Activefluticasone propionate 0.05 mg/actuat metered dose nasal spray (3 sources)CorticosteroidStart: 11-09-2017 End: 02-95-6362hsqg 2 spray(s) nasal route twice daily, then take 2 spray(s) nasal routefluticasone (FLONASE) 50 mcg/actuation nasal spray Indications: Allergic Rhinitis Instill 2 sprays into each nostril 2 (two) times a day DOES 2 SPRAYS IN EACH NOSTRIL . Active0.5 ml HYDROmorphone hydrochloride 1 mg/ml prefilled syringe (1 source)Opioid AgonistStart: 11-09-2017 End: 86-22-1517pjyr 0.5-1 mg intravenous route every three hours as needed Kanaflex (3 sources)Start: 02-02-2020 End: 87-52-0078ntut 4 mg by mouth once daily at bedtimeKanaflex Discontinued 4 MG PO Daily at bedtime February 01, 2020 11:00pm February 06, 2020 2:22pmStart: 02-02-2020 End: 71-53-2167ukiw 4 mg by mouth once daily at bedtimeKanaflex Discontinued 4 MG PO Daily at bedtime February 02, 2020 12:00am February 06, 2020 3:22pm1 ml ketorolac tromethamine 30 mg/ml injection (3 sources)Nonsteroidal Anti-inflammatory Drug, Cyclooxygenase InhibitorStart: 11-10-2017 End: 64-95-1732evsrikfqt (TORADOL) injection 30 mgStart: 11-10-2017 End: 35-60-1265jpdnqkbza (TORADOL) 30 mg/mL (1 mL) injection - ADS Override Pull Start: 11-10-2017 End: 92-70-0296uyhtharrb (TORADOL) injection 30 mglamoTRIgine 100 mg oral tablet (3 sources)Mood Stabilizer, Anti-epileptic AgentStart: 11-10-2017 End: 95-26-1231cucw 2 tablets by mouth once daily in [...] mg/ml oral suspension (1 source)Start: 11-09-2017 End: 21-99-7343mmjqpxduy 7.5 mg oral tablet (8 sources)Nonsteroidal Anti-inflammatory Drug End: 17-39-9378gmgojfbkm (Mobic) 7.5 MG tablet 1 (one) time each day at the same time. 06/26/2024 DiscontinuedMemantine Er 7 Mg-14 Mg-21 Mg-28 Mg Capsule,Sprinkle,Ext.Rel.24hr Pack (1 source)E-dzqual-E-aspartate Receptor Antagonist End: 25-11-7752xyrd 1 tablet by mouth oncememantine (NAMENDA XR) 7-14-21-28 mg C24k Indications: MIGRAINES Take by mouth nightly TAKES 1 TABLET ReasonsMIGRAINES. 10/18/2017 Discontinuedmetoprolol tartrate 50 mg oral tablet (2 sources)beta-Adrenergic BlockerStart: 11-09-2017 End: 27-97-2837fhlxhkux sulfate 15 mg extended release oral tablet (1 source)Opioid Agonist End: 23-72-0597orbc 1 tablet by mouth every twelve hoursmorphine (MS CONTIN) 15 MG 12 hr tablet Take 15 mg by mouth every 12 (twelve) hours TAKES 1 TABLET . 10/18/2017 Discontinuednaloxone (NARCAN) injection 0.1 mg (1 source)Start: 11-09-2017 End: 86-43-6715nbveutcv (NARCAN) injection 0.1 mgpolyethylene glycol 3350 142 mg/ml oral solution (3 sources)Osmotic LaxativeStart: 11-09-2017 End: 68-32-3829gygipffrfrtd glycol (MIRALAX) 17 gram powder Indications: constipation Take 17 g by mouth daily as needed MIXES WITH LIQUIDS. Active prochlorperazine 10 mg oral tablet (8 sources)Phenothiazine End: 33-00-0602atxyistibhaicxzj (Compazine) 10 MG tablet every 8 (eight) hours. 06/26/2024 Discontinuedpromethazine hydrochloride 25 mg oral tablet (8 sources)Phenothiazine End: 91-57-7187kfqm 1 tablet by mouth every six hours as needed for nausea promethazine (Phenergan) 25 MG tablet 1 tablet Oral every 6 hours as needed for nausea 06/26/2024 Qkbyiegscpqg63 hr scopolamine 0.0139 mg/hr transdermal system (1 source)AnticholinergicStart: 11-09-2017 End: 09-59-4831xtzokutchto (TRANSDERM-SCOP) 1 mg over 3 days patch 1 patchsodium chloride (2 sources)Start: 11-09-2017 End: 38-56-2152qmesfk chloride (PF) (NS) flush 5 mLStart: 11-09-2017 End: 62-48-5767yeegqrynomyj 10 mg oral tablet (3 sources)Start: 11-10-2017 End: 44-40-8405bwli 1 tablet by mouth once daily in the morningvortioxetine (TRINTELLIX) 10 mg tablet Indications: major depressive disorder Take 10 mg by mouth every morning TAKES 1 TABLET . ActiveXdemvy 0.25 % solution (7 sources)Start: 05-17-2024 End: 76-42-1698rrpe 1 drop(s) into the eye(s) twice dailyXdemvy 0.25 % solution INSTILL 1 DROP IN BOTH EYES TWICE DAILY FOR 6 WEEKS 05/17/2024 06/26/2024 Dis continuedStart: 91-50-1904kfdh 1 drop(s) into the eye(s) twice dailyXdemvy 0.25 % solution INSTILL 1 DROP IN BOTH EYES TWICE DAILY FOR 6 WEEKS 05/17/2024 Active Problems Active Problems Problem ClassificationProblemDateDocumented DateEpisodic/ChronicAbdominal pain (7 sources)Flank wjky11-43-1824KipiqdceXkgupphc foot deformities (20 sources)Acquired left hallux valgus; Translations: [Hallux valgus (acquired), left foot]Onset: 391293-71-7811DxmgoxxQfnxg cerebrovascular disease (20 sources)Cerebrovascular accident; Translations: [Cerebral infarction, unspecified]Onset: 09-13-1994 Resolved: 598209-64-7779TqtoyqhUhafyan disorders (20 sources)Anxiety disorder, unspecified; Translations: [Generalized anxiety disorder]Onset: 893448-88-7830LuzsswxGhgovq (20 sources)Asthma; Translations: [Mild intermittent asthma, uncomplicated] Onset: 831787-26-9303YmyrzhyOxtyfkhba and vision defects (20 sources)Blindness AND/OR vision impairment level; Translations: [Blindness, one eye, unspecified eye]Onset: 287026-45-7247JctaxjdXkaagswq (20 sources)Cataract; Translations: [Unspecified cataract]Onset: 07-26-2023 33-88-4838OnbxizxZanmdef kidney disease (20 sources)Chronic kidney disease stage 3; Translations: [Chronic kidney disease, stage 3 unspecified ([facility])]Onset: 06-12-2021 Resolved: 760553-33-9446TgrqpelVkpulkxvevv and hemorrhagic disorders (20 sources)Antiphospholipid syndrome; Translations: [Antiphospholipid syndrome] Onset: 418644-42-2111XdicwccScdyppth atherosclerosis and other heart disease (20 sources)Coronary arteriosclerosis; Translations: [Atherosclerotic heart disease of [place] coronary artery without angina pectoris]Onset: 09-27-2016 51-67-9264IbpqiyhGcmspmvn mellitus without complication (4 sources)Type 2 diabetes mellitus; Translations: [Type 2 diabetes mellitus without complications]Onset: 467895-99-0241LnjdarjWnuivzckd of lipid metabolism (20 sources)Hyperlipidemia; Translations: [Hyperlipidemia, unspecified]Onset: 839040-58-6526AxtcrkxPmottkrdg of lipid metabolism (2 sources)Pure hypercholesterolemia, unspecified; Translations: [Pure hypercholesterolemia, unspecified]Onset: 60-85-6235Hjmhveixzy disorders (20 sources)Gastroesophageal reflux disease; Translations: [Gastro-esophageal reflux disease without esophagitis]Onset: 036202-97-5028MvsxundBbeurikrm hypertension (20 sources)Hypertensive disorder; Translations: [Essential (primary) hypertension]Onset: 504800-41-2291YmhqscxExtxzsjxv and duodenitis (20 sources)Chronic antral gastritis; Translations: [Unspecified chronic gastritis without bleeding]Onset: 963630-42-2966SaumikoXhhrndfcfndmv symptoms and ill-defined conditions (13 sources)Post-micturition incontinence ; Translations: [Urinary incontinence] 71-11-0147QqaugzjLojniqxqexkaa symptoms and ill-defined conditions (20 sources)Preet hematuria; Translations: [History of urinary tract infection] 10-79-8243AulaoeydBkyymvyx (20 sources)Glaucoma; Translations: [Unspecified glaucoma]Onset: 11-02-2019 18-08-8893GpekgtzGsjhrnba; including migraine (20 sources)Migraine without aura, not intractable, without status migrainosus; Translations: [Migraine]Onset: 333483-39-2662SdvwfzrRfojkjggevvl; infection of eye (except that caused by tuberculosis or sexually transmitteddisease) (20 sources)Optic neuritis; Translations: [Disorder of optic nerve]Onset: 822812-66-3741BeexiysQlua disorders (20 sources)Bipolar disorder; Translations: [Bipolar disorder, unspecified] Onset: 953933-50-8907IoirshoCcnyrpsolro deficiencies (20 sources)Vitamin D deficiency; Translations: [Vitamin D deficiency, unspecified]Onset: 712246-35-6288OgqjxgqWzrwaqewoeqeej (20 sources)Unilateral primary osteoarthritis, left hip; Translations: [Osteoarthritis of hip]Onset: 284909-23-6501JeqqobrMmsxr aftercare (2 sources)Aftercare following joint replacement surgery; Translations: [Aftercare following joint replacementsurgery]Onset: 40-63-6099DnogzxnAgjqt aftercare (20 sources)Long-term current use of anticoagulant; Translations: [intermediate (current) use of 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]Onset: 990860-58-9759UfpodekqUrueh and unspecified benign neoplasm (7 sources)History of polyp of colon; Translations: [Personal history of adenomatous and serrated colon polyps]Onset: 677704-99-2394XdhqlhowRakfj and unspecified benign neoplasm (14 sources)Adenomatous polyp of colon ; Translations: [Benign neoplasm of transverse colon]Onset: 064575-25-1091VpxanabgKmjbr and unspecified benign neoplasm (1 source)Benign neoplasm of transverse colon; Translations: [Benign neoplasm of transverse colon]Onset: 62-79-2721XjjxuanoWnspo and unspecified benign neoplasm (1 source)Benign neoplasm of sigmoid colon; Translations: [Benign neoplasm of sigmoid colon]Onset: 89-26-5638RgkrzgofLjsrb circulatory disease (20 sources)Device in situ; Translations: [Presence of other vascular implants and grafts]Onset: 761627-18-9628ZirvyvwLyjfe circulatory disease (2 sources)Personal history of transient ischemic attack (TIA), and cerebral infarction without residual deficits; Translations: [Personal history of transient ischemic attack (TIA), and cerebral infarction without residual deficits]Onset: 83-19-2111VsasijcvNfrkn connective tissue disease (2 sources)Presence of left artificial hip joint; Translations: [Presence of left artificial hip joint]Onset: 94-99-7462RmwhvnkQthjf connective tissue disease (20 sources)Hip joint prosthesis present; Translations: [Presence of left artificial hip joint]Onset: 101211-76-1368HczgqwmUnbjj connective tissue disease (2 sources)Fibromyalgia; Translations: [Fibromyalgia]Onset: 02-67-7648Eaiqygpx Other connective tissue disease (7 sources)Xewmlikanyzv36-43-1948NsmysbvyEtkgo ear and sense organ disorders (20 sources)Sensorineural hearing loss, bilateral; Translations: [Sensorineural hearing loss, bilateral]Onset: 194644-93-6170MhjovmyClozu eye disorders (20 sources)Ischemic optic neuropathy; Translations: [Ischemic optic neuropathy, unspecified eye]Onset: 442280-03-6338TtnpdbwNweid eye disorders (20 sources)Optic atrophy of right eye; 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, right eye]Onset: 995533-73-9305TmxmuggPuann inflammatory condition of skin (5 sources)Lupus erythematosus; Translations: [Discoid lupus erythematosus] Onset: 941380-20-5529ZuaymhzArjdg injuries and conditions due to external causes (1 source)Unspecified injury of left lower leg, initial encounter; Translations: [Unspecified injury of left lower leg, initial encounter]Onset: 03-04-2025 EpisodicOther nervous system disorders (20 sources)Chronic pain; Translations: [Other chronic pain]Onset: 09-27-2016 17-11-9444LvdepabUfggj nervous system disorders (20 sources)Inattention; Translations: [Attention and concentration deficit] Onset: 023562-39-0168CutcpayIjbak nervous system disorders (20 sources)Difficulty walking; Translations: [Difficulty in walking, not elsewhere classified]Onset: 653095-29-1057IsamoypSwgmb nutritional; endocrine; and metabolic disorders (2 sources)Other obesity; Translations: [Other obesity]Onset: 54-05-3250Jjjyjqo Other nutritional; endocrine; and metabolic disorders (20 sources)Obese class I; Translations: [Obesity (BMI 30.0-34.9)]Onset: 789939-53-0639XckjwkeBteal nutritional; endocrine; and metabolic disorders (20 sources)Morbid obesity; Translations: [Morbid (severe) obesity due to excess calories]Onset: 562565-94-5012LsxkerjBbzka nutritional; endocrine; and metabolic disorders (1 source)Morbid (severe) obesity due to excess calories; Translations: [Morbid (severe) obesity due to excess calories]Onset: 64-18-0231ZhddvurHyfqw screening for suspected conditions (not mental disorders or infectious disease) (16 sources)Encounter for screening for malignant neoplasm of cervix; Translations: [Encounter for screening mammogram for malignant neoplasm of breast]Onset: 55-28-7005OeeesxaqKywdr upper respiratory disease (20 sources)Chronic rhinitis; Translations: [Chronic rhinitis]Onset: 11-21-2018 30-48-4683NlpuploQybvk upper respiratory disease (3 sources)Bleeding from nose; Translations: [Epistaxis]73-45-6410Rtlkzmck Phlebitis; thrombophlebitis and thromboembolism (20 sources)Chronic deep venous thrombosis of thigh; Translations: [Chronic embolism and thrombosis of unspecified deep veins of unspecified proximal lower extremity]Onset: 190137-97-3616QtsrsvoUwckveub codes; unclassified (2 sources)Other insomnia; Translations: [Other insomnia]Onset: 08-16-2018 ChronicResidual codes; unclassified (2 sources)Other specified health status; Translations: [Other specified health status]Onset: 87-82-5002LhnkrcwrGwhapjdj codes; unclassified (1 source)Family history of malignant neoplasm of other organs or systems; Translations: [FAM HX MALIG NEOPLASM OTH ORGN/SYS]Onset: 90-67-7834Zzdbjjsh Residual codes; unclassified (4 sources)Postmenopausal state; Translations: [Asymptomatic menopausal state] 18-07-5875AqooaopdJngolwzbtod; intervertebral disc disorders; other back problems (20 sources)Degeneration of lumbar intervertebral disc; Translations: [Degeneration of lumbar intervertebral disc]Onset: 492521-35-2232Djdutct Systemic lupus erythematosus and connective tissue disorders (20 sources)Systemic lupus erythematosus; Translations: [Systemic lupus erythematosus, unspecified]Onset: 711107-15-4693AcyoomjUaffpiw disorders (20 sources)Hypothyroidism; Translations: [Hypothyroidism, unspecified]Onset: 09-27-2016 Resolved: 941032-93-9091OhcpclqEqekfyeak cerebral ischemia (20 sources)Transient cerebral ischemia; Translations: [Transient cerebral ischemic attack, unspecified]Onset: 278910-97-1488EltdqgtRotwqhfhdivy (7 sources)Finding of sensation of neazbnf84-93-1310Ivgyerenpygv (3 sources)Autogenerated ProblemOnset: 208798-90-1297Jtstnvezpufv (1 source)mawOnset: 13-82-0796Kysripmmblfg (1 source)Thyroid ProblemOnset: 94-42-8069Kqzqzqyfpjda (1 source)Personal history of adenomatous and serrated colon polyps; Translations: [Personal history of adenomatous and serrated colon polyps]Onset: 04-44-2458Ldfaxuopicca (1 source)screeningOnset: 23-80-8762Shsqehynmusb (1 source)MNT - IndividualOnset: 22-71-2382Afmvzon tract infections (7 sources)Postinfective urethral stricture of ifwwni59-00-1129Dsomqesw Past or Other Problems Problem ClassificationProblemDateDocumented DateEpisodic/Chronic Administrative/social admission (20 sources)Problem related to life management difficulty; Translations: [Other problems related to life management difficulty]Onset: 779125-48-7904 EpisodicCalculus of urinary tract (20 sources)Kidney stone; Translations: [Calculus of kidney]Onset: 05-20-2022 79-14-2061CvczdfrrUubgjsdqfb and other anemia (20 sources)Anemia; Translations: [Anemia, unspecified]Onset: 12-08-2021 94-80-1464OnrnejoeBgbwfutzdn and other anemia (20 sources)Iron deficiency anemia; Translations: [Iron deficiency anemia, unspecified]Onset: 04-12-2014 Resolved: 805521-56-3703YmumxizvTzozurajjb and other anemia (1 source)Iron deficiency anemia, unspecified; Translations: [Iron deficiency anemia, unspecified]Onset: 50-48-7502IxyuecgbTrwcqgiw mellitus without complication (2 sources)Impaired fasting glycemia; Translations: [Impaired fasting glucose] Onset: 836862-73-7040MjteelepM Codes: Fall (9 sources)Fall; Translations: [Unspecified fall, initial encounter]Onset: 867182-33-5689LbhohqacZnqppcea, including migraine (20 sources)Headache; Translations: [Chronic headache disorder]Onset: 09-27-2016 72-89-4977DmlvipsnXnrcxjzdlwfzi and screening for infectious disease (2 sources)Encounter for screening for human papillomavirus (HPV); Translations: [Encounter for immunization]Onset: 45-40-1082DpozkvnfExgjzbi and fatigue (20 sources)Fatigue; Translations: [Other fatigue]Onset: EpisodicMood disorders (20 sources)Other specified depressive episodes; Translations: [Mood disorders] Onset: 07-20-2024 Resolved: 535476-72-8104Cbeijeyqucv deficiencies (2 sources)Deficiency of other specified B group vitamins; Translations: [Deficiency of other specified B group vitamins]Onset: 51-38-8685BhlfipvsJdokt aftercare (20 sources)Polypharmacy ; Translations: [Other mcfp (current) drug therapy]Onset: 177617-02-2314MkffmihpAtgcn aftercare (20 sources)Patient encounter status; Translations: [Encounter for therapeutic drug level monitoring]Onset: 693077-51-1917YfrnkikdNghrv aftercare (1 source)Other terminal gauger (current) drug therapy; Translations: [Other terminal gauger (current) drug therapy]Onset: 68-31-2904WgjgihwoWgirm aftercare (1 source)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; Translations: [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]Onset: 59-85-9844EixwmgvwJqzfl circulatory disease (2 sources)Elevated blood-pressure reading, without diagnosis of hypertension; Translations: [Elevated blood-pressure reading, without diagnosis of hypertension]Onset: 66-87-3875QgfwlkijDwsdy circulatory disease (20 sources)History of cerebrovascular accident; Translations: [Personal history of transient ischemic attack (TIA), and cerebral infarction without residual deficits]Onset: 446940-94-2042ZxxfsnuzUshge connective tissue disease (20 sources)Primary fibromyalgia syndrome; Translations: [Fibromyalgia]Onset: 838903-41-4733FoccwdiaMoxmq connective tissue disease (20 sources)Muscle weakness; Translations: [Muscle weakness (generalized)]Onset: 641282-50-6781YcdplcsxTqxyc diseases of veins and lymphatics (9 sources)Disorder of vein; Translations: [Disorder of vein, unspecified]Onset: 117729-89-3751KcmduudxOycen ear and sense organ disorders (20 sources)Bilateral tinnitus; Translations: [Tinnitus, bilateral]Onset: 590481-41-5320GhhjggclPvspc ear and sense organ disorders (20 sources)Tinnitus; Translations: [Tinnitus, unspecified ear]Onset: 03-29-2023 63-88-2893XdohilmqCpilx endocrine disorders (20 sources)Syndrome of inappropriate vasopressin secretion; Translations: [Syndrome of inappropriate secretionof antidiuretic hormone]Onset: 05-20-2022 Resolved: 198019-21-1249IzyzyutFnrkn gastrointestinal disorders (20 sources)Constipation; Translations: [Constipation, unspecified]Onset: 709262-23-2620TihidpenHfdas infections; including parasitic (20 sources)Personal history of other infectious and parasitic diseases; Translations: [History of 2019 novel coronavirus disease (COVID-19)]Onset: 223304-89-8528EtdhgrktQuxoz injuries and conditions due to external causes (20 sources)Hematoma; Translations: [Other injury of unspecified body region, initial encounter]Onset: 346905-05-2663HqmoxldmPosvv injuries and conditions due to external causes (20 sources)History of fall; Translations: [History of falling]Onset: 10-23-2021 Resolved: 786181-43-3426OuadrrcvQvggo injuries and conditions due to external causes (9 sources)Sequelae of injuries of lower limb ; Translations: [Unspecified injury of unspecified lower leg, sequela]Onset: 227011-29-4181Wcgzbbvt Other nervous system disorders (20 sources)Metabolic encephalopathy; Translations: [Metabolic encephalopathy] Onset: 09-27-2016 Resolved: 545657-62-6635QptdayjJdnby nervous system disorders (1 source)Disorder of brain; Translations: [Encephalopathy, unspecified] Resolved: 312445-78-7417MjvgfodForhm nervous system disorders (20 sources)Ataxia; Translations: [Ataxia, unspecified]Onset: 03-29-2023 79-42-2187RylbgciqWuhyc nervous system disorders (20 sources)Impaired cognition; Translations: [Other symptoms and signs involving cognitive functions and awareness]Onset: 463168-85-0638Hzjpeimu Other nervous system disorders (20 sources)Finding related to ability to move; Translations: [Other abnormalities of gait and mobility]Onset: 362337-89-6529ChkallusHwouc nervous system disorders (9 sources)Abnormal gait; Translations: [Unspecified abnormalities of gait and mobility]Onset: 926123-10-7674WhilrivpHedoollti; thrombophlebitis and thromboembolism (20 sources)Deep venous thrombosis; Translations: [Personal history of other venous thrombosis and embolism]Onset: 893318-94-6388AdlqcbfgFwrdlpyu codes; unclassified (2 sources)Other specified personal risk factors, not elsewhere classified; Translations: [Other specified personal risk factors, not elsewhere classified] Onset: 18-17-4743VmhmwvakRzlsniuq codes; unclassified (2 sources)Insomnia, unspecified; Translations: [Insomnia, unspecified]Onset: 68-87-3924GswudefvJmzdtyvv codes; unclassified (20 sources)Altered mental status; Translations: [Altered mental status, unspecified]Onset: 080517-98-4317FvsmvtteTwywypgt codes; unclassified (20 sources)Delirium; Translations: [Disorientation, unspecified]Onset: 204586-57-2545DygfydkjTyiuavqz codes; unclassified (20 sources)History of cardiac catheterization; Translations: [Other specified postprocedural states]Onset: 927239-15-4805AsjztnbnZjofobuq codes; unclassified (20 sources)Insomnia; Translations: [Insomnia, unspecified]Onset: 10-23-2021 93-56-9938LruwxyzcHubysagkbno; intervertebral disc disorders; other back problems (20 sources)Lumbar radiculopathy; Translations: [Radiculopathy, lumbar region] Onset: 176969-22-4833TyjakdrgRpgrrmrop-ehcoqld disorders (20 sources)Misuse of prescription only drugs; Translations: [Other psychoactive substance use, unspecified, uncomplicated]Onset: 053243-55-3474Dwnnbsfx Superficial injury; contusion (20 sources)Contusion of left thigh; Translations: [Contusion of left thigh, initial encounter]Onset: 009948-96-5912ElmrfxolTdbkzvngpffi (20 sources)Personal history of other medical treatment; Translations: [H/O: blood transfusion]Onset: 145788-15-9985JdioxmwiVznpc infection (20 sources)Disease caused by 2019-nCoV; Translations: [COVID-19]Onset: 474275-41-2906Slapdbez Results Test NameValueInterpretationReference RangeFacilityConsent Formson 07-23-2025 Consent [id number]#1.00OTGTOhioHealth Shelby Hospital Intraoperative Recordon 33-38-6431NGDL Intraoperative RecordMAGR Intra-Op Record Summary Primary Physician: LINA SCHWAB MD Finalized Date/Time: 07/23/25 12:53:18 Pt. Name: NOEMI BRAND /Sex: 1960 FEMALE Med Rec #: [id number] Physician: LINA SCHWAB MD Financial #: [id number] Pt. Type: D Room/Bed: / Admit/Disch: 07/20/25 09:44:51 - 07/20/25 11:03:00 Institution: Case Times MAGR Entry 1 Patient In Room Time 07/20/25 10:53:00 Out Room Time 07/20/25 10:58:00 Anesthesia Start Time 07/20/25 10:55:00 Stop Time 07/20/25 10:57:00 Surgery Start Time 07/20/25 10:55:00 Stop Time 07/20/25 10:57:00 Last Modified By: Socorro Simmons RN 07/20/25 10:57:30 Case Attendance MAGR Entry 1 Entry 2 Entry 3 Case Attendee Socorro Simmons RN, Erica RN Ayers, Monica MA Role Performed Lining Brusher Lining Brusher Swing Saw Operator Time In 07/20/25 10:53:00 07/20/25 10:53:00 07/20/25 10:53:00 Time Out 07/20/25 10:58:00 07/20/25 10:58:00 07/20/25 10:58:00 Procedure EPIDURAL STEROID INJ EPIDURAL STEROID INJ EPIDURAL STEROID INJ TRANSFORAMINAL TRANSFORAMINAL TRANSFORAMINAL THOR(Bilateral) THOR(Bilateral) THOR(Bilateral) Last Modified By: Troy RN, Socorro Simmons RN, Socorro Simmons RN, Socorro 07/20/25 10:57:31 07/20/25 10:57:31 07/20/25 10:57:31 Entry 4 Entry 5 Entry 6 Case Attendee Iveth Anderson RT (R) Vikas Cody RT (R) Love Winkler CT CONSTRUCTION MANAGEMENT INSTRUCTOR Role Performed Garage Helper Garage Helper Scrub Personnel Time In 07/20/25 10:53:00 07/20/25 10:53:00 07/20/25 10:53:00 Time Out 07/20/25 10:58:00 07/20/25 10:58:00 07/20/25 10:58:00 Procedure EPIDURAL STEROID INJ EPIDURAL STEROID INJ EPIDURAL STEROID INJ TRANSFORAMINAL TRANSFORAMINAL TRANSFORAMINAL THOR(Bilateral) THOR(Bilateral) THOR(Bilateral) Last Modified By: Troy RN, Socorro Simmons RN, Socorro Simmons RN, Socorro 07/20/25 10:57:31 07/20/25 10:57:31 07/20/25 10:57:31 Entry 7 Entry 8 Case Attendee Adry Collins THOMAS F MD Role Performed Scrub Personnel Surgeon - Primary Time In 07/20/25 10:53:00 07/20/25 10:53:00 Time Out 07/20/25 10:58:00 07/20/25 10:58:00 Procedure EPIDURAL STEROID INJ EPIDURAL STEROID INJ TRANSFORAMINAL TRANSFORAMINAL THOR(Bilateral) THOR(Bilateral) Last Modified By: Troy RN, Socorro Simmons RN, Socorro 07/20/25 10:57:31 07/20/25 10:57:31 General Comments: ILIANA THEODORE-SCRIBE Surgical Procedures MAGR Pre-Care Text: A.20 Verifies operative procedure, surgical site, and laterality Im.150 Develops individualized plan of care Entry 1 Procedure EPIDURAL STEROID INJ Primary Procedure Yes TRANSFORAMINAL THORACIC Primary Surgeon LINA SCHWAB MD Modifiers Bilateral Surgeon Comment Bilateral T7-8 Start 07/20/25 10:55:00 Transforaminal Epidural Steroid Injection Stop 07/20/25 10:57:00 Anesthesia Type Local Surgical Service Pain Management Wound Class Clean Technique Details Closure Technique N/A Entire procedure No was performed via laparoscope or robotic assistance Last Modified By: Socorro Simmons RN 07/20/25 10:57:35 Post-Care Text: O.730 The patient's care is consistent with the individualized perioperative plan of care General Case Data MAGR Pre-Care Text: A.350.1 Classifies surgical wound Entry 1 Case Information OR MAGR OR 02 Case Level None Wound Class Clean Specialty Pain Management ASA Class N/A Diagnosis Preop Diagnosis Thoracic Neuritis Postop Same As Preop Yes Postop Diagnosis Thoracic Neuritis Blunt or No Is the procedure No penetrating injury considered occured prior to Emergent/Urgent? the start of the procedure: Last Modified By: Socorro Simmons RN 07/20/25 10:52:13 Post-Care Text: O.760 Patient receives consistent and comparable care regardless of the setting Time Out MAGR Entry 1 Procedure(s) EPIDURAL STEROID INJ TRANSFORAMINAL THOR(Bilateral) Time Out Checklist Verifications Team Introductions Yes [...] Labeled Other Concerns n/a Addressed Time Out Luz Marina Huber RN, Time Out Time 07/20/25 10:53:00 Participants Vikas Cody RT (R), Nikhil Collins (more content not included)...[facility] Patient Summaryon [id number] Patient Summary[address] [address] Patient Discharge Instructions Name: NOEMI BRAND : 1960 Patient Address: [address] [place] [address] Primary Care Provider: Name: ALEXANDER CHEN After you are discharged if you find you have any questions, please, call [phone] ext [phone] to speak to a nurse. Discharge Diagnosis: Prescription Information: If you have been given a prescription for narcotics, seek immediate medical attention if you have any difficulty breathing or any sudden status changes such as confusion andsleepiness. If you or anyone you know is experiencing suicidal thoughts, mental health, alcohol and/or drug addiction problems; contact the [facility] 05/04 Crisis Hotline -Text 4HSZS to 517716. If you received any narcotics, sedation, or [...] business decisions or sign any legal documents [facility] would like to thank you [...] once a day (in the evening). naltrexone 2 Milligram Oral (given by mouth) At bedtime. omega-3 polyunsaturated fatty acids (Fish Oil) 1 tab(s) Oral (given by mouth) 2 times per day. pantoprazole (Protonix 40 mg oral delayed release [...] constipation. Template Non-Formulary (Compund medication with Biotin) 2 tab(s) Oral (given by mouth) every day. valsartan (valsartan 80 mg oral tablet) 1 tab(s) Oral (given by mouth) every day. verapamil (verapamil 80 mg oral tablet) 1 tab(s) Oral (given by mouth) At bedtime. warfarin (Coumadin 5 mg oral tablet) 0.5 tab(s) Oral (given by mouth) Wednesday and . warfarin (Coumadin) 5 Milligram Oral (given by mouth) Wednesday, Wednesday, Wednesday, Wednesday, and Wednesday. zolpidem (Ambien 10 mg oral tablet) 1 [...] by mouth) every day. folic acid (folic aci (more content not included)...[facility] Preoperative Recordon [id number] Preoperative RecordMA Pre-Op Record Summary Primary Physician: LINA SCHWAB MD Finalized Date/Time: 07/20/25 11:01:52 Pt. Name: NOEMI BRAND /Sex: 1960 FEMALE Med Rec #: [id number] Physician: LINA SCHWAB MD Financial #: [id number] Pt. Type: D Room/Bed: / Admit/Disch: 07/20/25 09:44:51 - Institution: Pre-Op Case Times MAGR Pre-Care Text: Patient will be optimally prepared for surgery. Patient is free from s/s of injury. Provide information to patient/family related to plan of care. Verify patient allergies. Confirm identity and verify consent before the operative or invasive procedure. Entry 1 Patient Arrival Time 07/20/25 09:50:00 Preop Departure 07/20/25 10:37:00 Last Modified By: Carly Mccall RN 07/20/25 11:01:51 Post-Care Text: Patient is prepared mentally and physically and is ready for surgery. The patient remains free froms/s of injury. Patient/family express understanding of plan of care and participate in decisions affectinghis or her perioperrative plan of care. Allergies documented appropriately. Patient identifiers and consent correct. General Comments: Pt denies SOB, sleep apnea, diabetes, CP, or pacemaker/defibrillator. Pt with occasional cough nonproductive but no other symptoms- pt did not cough during 154 mintues with admission. Finalized By: Carly Mccall RN Document Signatures Signed By: Carly Mccall RN 07/20/25 11:01[facility] HospitalPatient Handouton 07-20-2025 Patient [facility] [address], [place] [address] Pain Procedure Home Care Instructions For the next 24 hours do not do any of the following activities: - Drive a car or operate heavy machinery - Drink alcoholic beverages - Make legal decisions or sign any contracts Please call the office at [phone] if you have any questions or develop [...] 1 hour: 2 hours: 4 hours: Normal [facility] Protime / INRon 37-51-6281PUS Coag (PPP) [Relative time] 2.1 {INR}Abnormal0.8 - 1.2POhioHealth Grant [facility] Center SystemInterpretation and review of laboratory resultsAbnormalProMedica [facility] Clinic [facility] SystemHolzer [facility] SystemCoding Summaryon 47-63-5044Bhoitc SummaryHTMLBase 64 UqwlzxpmMNu7tWw+PGhlYWQ+YV7SFBGuM09bxWZetE8hW6SWCMdKVdaqTZHEFWaIAgXorpLuOP4kzDIj ZXJu [file] OiB (more content not included)...NormalIngrmetrohealth cleveland heights medical center HospitalPOCT Protime / INRon 82-36-2667VHM Coag (PPP) [Relative time]3.1 {INR}Abnormal0.8 - 1.2PGlenbeigh HospitalInterpretation and review of laboratory resultsAbnoSelect Specialty Hospital - DanvilleIGP,APTIMA HPV,AGE GDLNon 68-10-6440RBO GDLN ACOG TESTINGNote.NOMS HealthcareComment on above:TESTS RESULT FLAG UNITS REF RANGE LAB Clinician Provided Cytology Information Source.............Cervix;Endocervix No. of containers..01 ThinPrep Vial Age Algo ACOG Trudy... 31- FLAG LEGEND: L-Low Normal,H-High Normal,LL-Alert Low,HH-Alert High <-Panic Low,>-Panic High,A-Abnormal,AA-Critical Abnormal Performed at: 01 [address] [place] [address] Fatmata Marks MD, HPV APTIMANegativeNegativeNOMS HealthcareComment on above:This nucleic acid amplification test detects fourteen high- risk HPV types (16,18,31,33,35,39,45,51,52,56,58,59,66,68) without differentiation. Performed at: =[address] [id number] [employer] Furn[employer] Operator: Fatmata Marks MD, Phone: [phone] Performed at: [address] [id number] [employer] Operator: Fatmata Marks MD, Phone: [phone] IGP, APTIMA HPV, RFX 16/18,45Note.NOMS HealthcareComment on above:TESTS RESULT FLAG UNITS REF RANGE LAB DIAGNOSIS: 02 NEGATIVE FOR INTRAEPITHELIAL LESION OR MALIGNANCY. CELLULAR CHANGES ASSOCIATED WITH ATROPHY ARE PRESENT. Specimen adequacy: 02 Satisfactory for evaluation. Endocervical component may not be distinguished in cases of atrophy. Areas of partially obscuring inflammatory exudate are present. Performed by: 02 Lashawn Gonzalez, Property Handler ([facility]) . 02 Note: Note 02 The Pap [...] This liquid based ThinPrep(R) pap test was interpreted using the Casabi(R) Travark(TM) Cervical Algorithm whole slide imaging system. HPV Genotype Reflex Note 02 Criteria not met, HPV Genotype not performed. FLAG LEGEND: L-Low Normal,H-High Normal,LL-Alert Low,HH-Alert High <-Panic Low,>-Panic High,A-Abnormal,AA-Critical Abnormal Performed at: [address] [facility] [address] [place] [address] Fatmata Marks MD, BRUSH-SPATULA CERVIX ENDOCERVIX CLINISYNCNOAL HealthcarePOCT Protime / INRon 74-39-3584ZWT Coag (PPP) [Relative time]2.1 {INR}Abnormal0.8 - 1.2[facility] SystemInterpretation and review of laboratory resultsAbnormalProMedica [facility] SystemProMediCincinnati [facility] System Coding Summaryon 90-20-2328Oknxte SummaryHTMLBase 64 SmyzgxzwQDn1zEm+PGhlYWQ+FE8AFRLwT67qpJAxnF6fP7NPNOrBHaetZCTFRDkTRuDztiEjUR7yhNDs ZXJu [file] LWN (more content not included)...[facility] HospitalConsent Formson 66-85-8538Ihzralf [id number] Hospital ToledoInpatient Patient Summaryon [id number] Patient Summary [facility] [address] [id number] Patient Discharge Instructions Name: NOEMI BRAND : 1960 Patient Address: [address] [place] [address] Primary Care Provider: Name: ALEXANDER CHEN After you are discharged if you find you have any questions, please, call [phone] ext [phone] to speak to a nurse. Discharge Diagnosis: Prescription Information: If you have been given a prescription for narcotics, seek immediate medical attention if you have any difficulty breathing or any sudden status changes such as confusion andsleepiness. If you or anyone you know is experiencing suicidal thoughts, mental health, alcohol and/or drug addiction problems; contact the [facility] 05/04 Crisis Hotline -Text 4HOPE to 989781. If you received any narcotics, sedation, or [...] business decisions or sign any legal documents [facility] would like to thank you [...] baclofen (baclofen 10 mg (more content not included)...[facility] MAGR Intraoperative Recordon [id number] Intraoperative RecordMAGR Intra-Op Record Summary Primary Physician: LINA SCHWAB MD Finalized Date/Time: 06/08/25 11:08:52 Pt. Name: NOEMI BRAND CYNDI MccraryO.B./Sex: 1960 FEMALE Med Rec #: [id number] Physician: LINA SCHWAB MD Financial #: [id number] Pt. Type: D Room/Bed: / Admit/Disch: 06/08/25 [...] RN George, Beth A RN Role Performed Lining Brusher Lining Brusher Other Authorized Personnel Time In 06/08/25 10:39:00 06/08/25 10:39:00 06/08/25 10:39:00 Time Out 06/08/25 11:10:00 06/08/25 11:10:00 06/08/25 11:10:00 Procedure Radiofrequency Radiofrequency Radiofrequency Ablation(Bilateral) Ablation(Bilateral) Ablation(Bilateral) Last Modified By: Jenifer Muhammad RN, Debra RN Myers, Debra RN 06/08/25 11:08:16 06/08/25 11:08:16 06/08/25 11:08:16 Entry 4 Entry 5 Entry 6 Case Attendee Roslyn Sadler (R) Hailey Jorge CONSTRUCTION MANAGEMENT INSTRUCTOR LINA SCHWAB MD Role Performed Garage Helper Scrub Personnel Surgeon - Primary Time In [...] Ablation Primary Procedure Yes Primary Surgeon LINA SHCWAB MD Modifiers Bilateral Surgeon Comment Bilateral L4-5, [...] Participants (R), Ev Bailey RN, Hailey Jorge CONSTRUCTION MANAGEMENT INSTRUCTOR, LINA SCHWAB MD, Jenifer Muhammad RN Last [...] RN 06/08/25 10:40:20 Post-Ca (more content not included)...[facility] Preoperative Recordon 89-53-7696SHND Preoperative RecordMA Pre-Op Record Summary Primary Physician: LINA SCHWAB MD Finalized Date/Time: 06/08/25 11:14:58 Pt. Name: NOEMI BRAND /Sex: 1960 FEMALE Med Rec #: [id number] Physician: LINA SCHWAB MD Financial #: [id number] Pt. Type: D Room/Bed: / Admit/Disch: 06/08/25 [...] Preop Departure 06/08/25 10:34:00 Last Modified By: Craly Mccall RN 06/08/25 11:14:57 Post-Care Text: Patient [...] Signatures Signed By: Carly Mccall RN 06/08/25 11:14[facility]Patient [facility]outon [facility]2025 Patient [facility] [address] [place] [address] [place] [address] Pain Procedure Home Care Instructions For the next 24 hours do not do any of the following activities: - Drive a car or operate heavy machinery - Drink alcoholic beverages - Make legal decisions or sign any contracts Please call the office at [phone] if you have any questions or develop [...] 1 hour: 2 hours: 4 hours: Normal [facility] Protime / INRon 14-93-3103JIY Coag (PPP) [Relative time] 2.3 {INR}Abnormal0.8 - 1.2POhioHealth Grant Medical Center SystemInterpretation and review of laboratory resultsAbnormalProMemorial Health System [facility] SystemProMemorial Health [facility] SystemCoding Summaryon 99-07-3773Rsjtde SummaryHTMLBase 64 GgzsahnhWVg6uMn+PGhlYWQ+HC8ACDFbU39ydEJyqM4lV1FXZQgTGameFUEIKTkWSxWihqWoMY2qxUBq ZXJu [file] OiB (more content not included)...NormalMetrohealth Parma Medical CenterProgress Note - Provideron 21-50-0295Nxmwsqpj Note - Provider [id number]#1.00OTGTIFFNoPeoples HospitalPOCT Protime / INRon 18-51-5521SMG Coag (PPP) [Relative time]2.8 {INR}Abnormal0.8 - 1.2PGlenbeigh HospitalInterpretation and review of laboratory results AbnormalLatrobe HospitalPOCT Protime / INRon 27-21-5330OZM Coag (PPP) [Relative time]2.9 {INR}Abnormal0.8 - 1.2PGlenbeigh HospitalInterpretation and review of laboratory resultsAbnormalWestern Wisconsin Health SystemAmbulatory referral to Diabetic Educationon 42-29-0266NqeUvjxziChildren's Hospital of ColumbusXR knee LT 4V*on 02-69-5855UK knee LT 4V* [address] [place] [address] XRay Report Signed Patient: Noemi Brand MR#: [id number] : 1960 Acct:[id number] Age/Sex: 64 / F ADM Date: 03/04/25 Loc: XDUCLY [facility]: [facility]: Sophy Riddle CORNICE MAKER, HOTEL RECREATIONAL FACILITIES MANAGER-C Copies to: Sophy Riddle APRN Ordering Provider: [...] PROCESS. Impression dictated by: Lisandro Helms Jr., Anuradha 03/04/2025 10:25 AM Dictation Location: [facility]18 Transcribed By: [facility] 03/04/25 1025 Dictated By: Lisandro Helms Jr, DO 03/04/25 1022 Signed By: 03/04/[address] [place] [address] Physician GroupBAPTIST HEALTH [facility] WITH AUTO DIFFERENTIALon 19-48-9772XBWHWBJNV ABSOLUTE COUNT (10*3/UL) BY AUTOMATED COUNT0.0 10*3/uLNormal 0.0-0.2ProMedica Mercy HospitalComment on above:Performed By: #### CBCA #### [facility] ([facility]) [address] [place] [address] VIRBASOPHILS RELATIVE PERCENT BY AUTOMATED COUNT0.5 %Normal [facility] HospitalComchelsea hospital on above:Performed By: #### CBCA #### [facility] ([facility]) [address] [place] [address] VIRCELLAVISION DIFFERENTIAL TYPEAUTOMATED DIFFERENTIALNormal [facility]Medica Lenoir HospitalComment on above:Performed By: #### CBCA #### [facility] ([facility]) [address] [place] [address] VIREosinophils (Bld) [#/Vol]0.1 10*3/uLNormal0.0-0.4[facility] Memorial HospitalComment on above:Performed By: #### CBCA #### [facility] ([facility]) [address] [place] [address] VIREOSINOPHILS RELATIVE PERCENT BY AUTOMATED COUNT0.8 %Normal [facility] Memorial HospitalComment on above:Performed By: #### CBCA #### [facility] ([facility]) [address] [place] [address] VIRErythrocyte distribution width (RBC) [Ratio]15.6 %High 11.5-15ProTexas Health Heart & Vascular Hospital ArlingtonComment on above:Performed By: #### CBCA #### [facility] ([facility]) [address] [place] [address] VIRHematocrit (Bld) [Volume fraction]39.0 %Nvglzh58-60NptFdoahqTexas Health Heart & Vascular Hospital ArlingtonComment on above:Performed By: #### CBCA #### [facility] ([facility]) [address] [place] [address] VIRHemoglobin (Bld) [Mass/Vol]13.0 g/lQOsxtyi63.7-15.5PTriHealth Bethesda North HospitalComment on above:Performed By: #### CBCA #### [facility] ([facility]) [address] [place] [address] VIRLYMPHOCYTES ABSOLUTE COUNT (10*3/UL) BY AUTOMATED COUNT1.5 10*3/uLNormal1.0-3.5PTriHealth Bethesda North HospitalComment on above:Performed By: #### CBCA #### [facility] ([facility]) [address] [place] [address] VIRLYMPHOCYTES RELATIVE PERCENT BY AUTOMATED COUNT22.8 %Normal ProMedica Lenoir HospitalComment on above:Performed By: #### CBCA #### [facility] ([facility]) [address] [place] [address] VIRMCH (RBC) [Entitic mass]30.2 drWckgwi73-23SgqGnyfwrTexas Health Heart & Vascular Hospital ArlingtonComment on above:Performed By: #### CBCA #### [facility] ([facility]) [address] [place] [address] VIRMCHC (RBC) [Mass/Vol]33.3 g/pHGzwpxv15-44HajHfyumpTexas Health Heart & Vascular Hospital ArlingtonComment on above:Performed By: #### CBCA #### [facility] ([facility]) [address] [place] [address] VIRMCV (RBC) [Entitic vol]91 zIYslrtf69-232GbkBljmbw Fremont HospitalComment on above:Performed By: #### CBCA #### [facility] ([facility]) [address] [place] [address] VIRMONOCYTES ABSOLUTE COUNT (10*3/UL) BY AUTOMATED COUNT0.6 10*3/uLNormal0.0-0.9[facility] HospitalComchelsea hospital on above:Performed By: #### CBCA #### [facility] ([facility]) [address] [place] [address] VIRMONOCYTES RELATIVE PERCENT BY AUTOMATED COUNT8.9 %Normal [facility] Memorial HospitalComment on above:Performed By: #### CBCA #### [facility] ([facility]) [address] [place] [address] VIRNEUTROPHILS ABSOLUTE COUNT BY AUTOMATED COUNT4.5 10*3/uL Normal1.5-6.6[facility] Memorial HospitalComment on above:Performed By: #### CBCA #### [facility] ([facility]) [address] [place] [address] VIRNEUTROPHILS RELATIVE PERCENT BY AUTOMATED COUNT67.0 %Normal [facility] Memorial HospitalComment on above:Performed By: #### CBCA #### [facility] ([facility]) [address] [place] [address] VIRPlatelet mean volume (Bld) [Entitic vol]9.0 fLNormal7-12 [facility] Memorial HospitalComment on above:Performed By: #### CBCA #### [facility] ([facility]) [address] [place] [address] VIRPlatelets (Bld) [#/Vol]237 10*3/mFQgegzo613-664WocZhofqs [facility]remont HospitalComment on above:Performed By: #### CBCA #### [facility] ([facility]) [address] [place] [address] VIRRBC COUNT4.31 X10E12/LNormal3.8-5.2PTriHealth Bethesda North HospitalComment on above:Performed By: #### CBCA #### [facility] ([facility]) [address] [place] [address] VIRWBC (Bld) [#/Vol]6.7 10*3/uLNormal4-11[facility] HospitalComchelsea hospital on above:Performed By: #### CBCA #### [facility] ([facility]) [address] [place] [address] VIRCOMPLEMENT ACTIVITY TOTAL, (CH50)on 12-99-9782KTFWVMBQEL TOTAL89.0 U/gVLhhhdb62.7-89.9[facility] HospitalComchelsea hospital on above:Result Comment: Normal activity in total [...] complement alternate pathway functional (AH50, test code 2746072) activity suggests defects in the alternate pathway. REFERENCE INTERVAL: Complement Activity Total, (CH50) 38.6 U/mL or less ..........Low 38.7-89.9 U/mL .............Normal 90.0 U/mL or greater .......High Performed By: [facility] [address] [place] [address] Education And Training Manager: Abdullahi Matthew MD, PhD CLIA Number: [id number] By: #### CH50C #### [facility]) [address] [place] [address] VIRCOMPLEMENT PROFILE (C3 AND C4)on 02-16-2025 COMPLEMENT C3152 mg/lTTfwupg82-428RugDmkyug [facility]remont HospitalComment on above: Performed By: #### C34 #### [facility] ([facility]) [address] [place] [address] VIRCOMPLEMENT C445 mg/rVUbdvjo22-63PgjHwsxqlGrand [facility] Hospital Comment on above:Performed By: #### C34 #### [facility] ([facility]) [address] [place] [address] VIRCOMPREHENSIVE METABOLIC PANELon 80-33-1134Fogiaio [Mass/Vol] 4.3 g/dLNormal3.2-5.3PTriHealth Bethesda North HospitalComment on above:Performed By: #### CMP #### [facility] ([facility]) [address] [place] [address] VIRALP [Catalytic activity/Vol]82 U/JCrsrdo88-948IzbIvrgadTexas Health Heart & Vascular Hospital ArlingtonComment on above:Performed By: #### CMP #### [facility] ([facility]) [address] [place] [address] VIRALT [Catalytic activity/Vol]19 U/LNormal<=31PTriHealth Bethesda North HospitalComment on above:Performed By: #### CMP #### [facility] ([facility]) [address] [place] [address] VIRAnion gap [Moles/Vol]9 mmol/LNormal5-15ProTexas Health Heart & Vascular Hospital ArlingtonComment on above:Performed By: #### CMP #### [facility] ([facility]) [address] [place] [address] VIRAST [Catalytic activity/Vol]15 U/LNormal<=41ProTexas Health Heart & Vascular Hospital ArlingtonComment on above:Performed By: #### CMP #### [facility] ([facility]) [address] [place] [address] VIRBilirubin [Mass/Vol]0.4 mg/dLNormal0.3-1.2PTriHealth Bethesda North HospitalComment on above:Performed By: #### CMP #### [facility] ([facility]) [address] [place] [address] VIRCalcium [Mass/Vol]9.3 mg/dLNormal8.5-10.5PTriHealth Bethesda North HospitalComment on above:Performed By: #### CMP #### [facility] ([facility]) [address] [place] [address] VIRChloride [Moles/Vol]101 mmol/LBibmoo53-386TwcVmpsxsTexas Health Heart & Vascular Hospital ArlingtonComment on above:Performed By: #### CMP #### [facility] ([facility]) [address] [place] [address] VIRCO2 [Moles/Vol]31 mmol/QAwsvwe81-96BysWrkxxyTriHealth Bethesda North HospitalComment on above:Performed By: #### CMP #### [facility] ([facility]) [address] [place] [address] VIRCreatinine [Mass/Vol]0.92 mg/dLNormal0.40-1.00ProTexas Health Heart & Vascular Hospital ArlingtonComment on above:Result Comment: METHOD TRACEABLE TO IDMS STANDARDPerformed By: #### CMP #### [facility] ([facility]) [address] [place] [address] VIRGFR/1.73 sq M.predicted among non-blacks MDRD (S/P/Bld) [Vol rate/Area]70 mL/min/{1.73_m2}Normal>=60ProTexas Health Heart & Vascular Hospital ArlingtonComment on above:Result Comment: Reported eGFR is based on the CKD-EPI 2020 equation that does not use a race coefficient.Performed By: #### CMP #### [facility] ([facility]) [address] [place] [address] VIRGlucose [Mass/Vol]115 mg/vHPxkg56-49UnzWqoipqTexas Health Heart & Vascular Hospital ArlingtonComment on above:Performed By: #### CMP #### [facility] ([facility]) [address] [place] [address] VIRPotassium [Moles/Vol]4.2 mmol/LNormal3.5-5.0[facility] Memorial HospitalComment on above:Performed By: #### CMP #### [facility] ([facility]) [address] [place] [address] VIRProtein [Mass/Vol]6.7 g/dLNormal6.0-8.0[facility] Memorial HospitalComment on above:Performed By: #### CMP #### [facility] ([facility]) [address] [place] [address] VIRSodium [Moles/Vol]141 mmol/ZSyangu444-118LuxJtckpd [facility]ont HospitalComment on above:Performed By: #### CMP #### [facility] ([facility]) [address] [place] [address] VIRUrea nitrogen [Mass/Vol]16 mg/dLNormal5-27ProTexas Health Heart & Vascular Hospital ArlingtonComment on above:Performed By: #### CMP #### [facility] ([facility]) [address] [place] [address] VIRERYTHROCYTE SEDIMENTATION RATE (ESR)on 14-19-4499LNX, ERYTHROCYTE SEDIMENTATION RATE6 mm/hNormal0-30ProTexas Health Heart & Vascular Hospital ArlingtonComment on above:Performed By: #### ESR #### [facility] ([facility]) [address] [place] [address] VIRPOCT Protime / INRon 87-45-6354FGT Coag (PPP) [Relative time]2.6 {INR}Abnormal0.8 - 1.2PGlenbeigh HospitalInterpretation and review of laboratory resultsAbnoSelect Specialty Hospital - Danville URINALYSISon 33-72-2603Wgopppyrr Ql (U)NegativeNormalNegativeGrand Lake Joint Township District Memorial HospitalComment on above:Performed By: #### UA #### [facility] ([facility]) [address] [place] [address] VIRBLOOD/HGBNegativeNocritical access hospitalNegCleveland Clinic South Pointe [facility] on above:Performed By: #### UA #### [facility] ([facility]) [address] [place] [address] VIRColor (U)YellowNormalYellow, ColorlessProTexas Health Heart & Vascular Hospital ArlingtonComment on above:Performed By: #### UA #### [facility] ([facility]) [address] [place] [address] VIRGlucose Ql (U)NegativeNormalNegativeGrand Lake [facility] Memorial HospitalComchelsea hospital on above:Performed By: #### UA #### [facility] ([facility]) [address] [place] [address] VIRKetones Ql (U)NegativeNormalNegativeProTexas Health Heart & Vascular Hospital ArlingtonComment on above:Performed By: #### UA #### [facility] ([facility]) [address] [place] [address] VIRLeukocyte esterase Test strip Ql (U)LargeAbnormalNegative ProMchoctaw general hospitala Mercy HospitalComment on above:Performed By: #### UA #### [facility] ([facility]) [address] [place] [address] VIRMUCOUSPresentAbnormalFlorence Community HealthcareePTriHealth Bethesda North HospitalComment on above:Performed By: #### UA #### [facility] ([facility]) [address] [place] [address] VIRNitrite Ql (U)NegativeNormalNegativeGrand Lake [facility] District Memorial HospitalComment on above:Performed By: #### UA #### [facility] ([facility]) [address] [place] [address] VIRPH,URINE6.7Bdeepe2.0-8.5PTriHealth Bethesda North HospitalComment on above:Performed By: #### UA #### [facility] ([facility]) [address] [place] [address] VIRProtein Ql (U)TraceAbnormalNegativeGrand Lake Joint Township District Memorial HospitalComment on above:Performed By: #### UA #### [facility] ([facility]) [address] [place] [address] VIRR.B.HCWGP9Ulxbom2-1OuwFzwnnlTriHealth Bethesda North HospitalComment on above:Performed By: #### UA #### [facility] ([facility]) [address] [place] [address] VIRSpecific gravity (U) [Rel density]1.013Purtyi7.003-1.035 [facility] HospitalComchelsea hospital on above:Performed By: #### UA #### [facility] ([facility]) [address] [place] [address] VIRTURBIDITYClearNormalClearGrand Lake Joint Township District Memorial HospitalComment on above:Performed By: #### UA #### [facility] ([facility]) [address] [place] [address] VIRUROBILINOGEN<1.1 eu/dLNormal<1.1 eu/dLGrand Lake Joint Township District Memorial HospitalComchelsea hospital on above:Performed By: #### UA #### [facility] ([facility]) [address] [place] [address] VIRW.B.HMGAN62Mhhp7-1UhuJwgslsTriHealth Bethesda North HospitalComment on above:Performed By: #### UA #### [facility] ([facility]) [address] [place] [address] VIRCBC WITH AUTO DIFFERENTIALon 04-02-1293NEDIUZHKY ABSOLUTE COUNT (10*3/UL) BY AUTOMATED COUNT0.0 10*3/uLNormal0.0-0.2PNationwide Children's Hospital Ambulatory PPGComment on above:Performed By: #### CBCA #### [facility] ([facility]) [address] [place] [address] VIRBASOPHILS RELATIVE PERCENT BY AUTOMATED COUNT0.5 %Normal [facility] PPGComment on above:Performed By: #### CBCA #### [facility] ([facility]) [address] [place] [address] VIRCELLAVISION DIFFERENTIAL TYPEAUTOMATED DIFFERENTIALNormal [facility] PPGComment on above:Performed By: #### CBCA #### [facility] ([facility]) [address] [place] [address] VIREosinophils (Bld) [#/Vol]0.0 10*3/uLNormal0.0-0.4[facility] PPGComment on above:Performed By: #### CBCA #### [facility] ([facility]) [address] [place] [address] VIREOSINOPHILS RELATIVE PERCENT BY AUTOMATED COUNT0.6 %Normal [facility] PPGComment on above:Performed By: #### CBCA #### [facility] ([facility]) [address] [place] [address] VIRErythrocyte distribution width (RBC) [Ratio]15.5 %High 11.5-15[facility] Ambulatory PPGComment on above:Performed By: #### CBCA #### [facility] ([facility]) [address] [place] [address] VIRHematocrit (Bld) [Volume fraction]40.4 %Gehneu94-33RthAkxkhi Hospital Ambulatory PPGComment on above:Performed By: #### CBCA #### [facility] ([facility]) [address] [place] [address] VIRHemoglobin (Bld) [Mass/Vol]13.5 g/lHFkcrht08.7-15.5PNationwide Children's Hospital Ambulatory PPGComment on above:Performed By: #### CBCA #### [facility] ([facility]) [address] [place] [address] VIRLYMPHOCYTES ABSOLUTE COUNT (10*3/UL) BY AUTOMATED COUNT1.8 10*3/uLNormal1.0-3.5PNationwide Children's Hospital Ambulatory PPGComment on above:Performed By: #### CBCA #### [facility] ([facility]) [address] [place] [address] VIRLYMPHOCYTES RELATIVE PERCENT BY AUTOMATED COUNT21.3 %Normal [facility] PPGComment on above:Performed By: #### CBCA #### [facility] ([facility]) [address] [place] [address] VIRMCH (RBC) [Entitic mass]29.9 vvEjkviz80-31LwsLigeze Hospital Ambulatory PPGComment on above:Performed By: #### CBCA #### [facility] ([facility]) [address] [place] [address] VIRMCHC (RBC) [Mass/Vol]33.4 g/jIVkkhzu39-84RbyOycouu Hospital Ambulatory PPGComment on above:Performed By: #### CBCA #### [facility] ([facility]) [address] [place] [address] VIRMCV (RBC) [Entitic vol]90 wMWhlgii82-763LgsGwsegp Hospital Ambulatory PPGComment on above:Performed By: #### CBCA #### [facility] ([facility]) [address] [place] [address] VIRMONOCYTES ABSOLUTE COUNT (10*3/UL) BY AUTOMATED COUNT0.7 10*3/uLNormal0.0-0.9[facility] PPGComment on above:Performed By: #### CBCA #### [facility] ([facility]) [address] [place] [address] VIRMONOCYTES RELATIVE PERCENT BY AUTOMATED COUNT8.0 %Normal [facility] PPGComment on above:Performed By: #### CBCA #### [facility] ([facility]) [address] [place] [address] VIRNEUTROPHILS ABSOLUTE COUNT BY AUTOMATED COUNT5.8 10*3/uL Normal1.5-6.6[facility] PPGComment on above:Performed By: #### CBCA #### [facility] ([facility]) [address] [place] [address] VIRNEUTROPHILS RELATIVE PERCENT BY AUTOMATED COUNT69.6 %Normal [facility] PPGComment on above:Performed By: #### CBCA #### [facility] ([facility]) [address] [place] [address] VIRPlatelet mean volume (Bld) [Entitic vol]8.8 fLNormal7-12 [facility] PPGComment on above:Performed By: #### CBCA #### [facility] ([facility]) [address] [place] [address] VIRPlatelets (Bld) [#/Vol]245 10*3/rGDjpmco875-197[facility] PPGComment on above:Performed By: #### CBCA #### [facility] ([facility]) [address] [place] [address] VIRRBC COUNT4.51 X10E12/LNormal3.8-5.2[facility] PPGComment on above:Performed By: #### CBCA #### [facility] ([facility]) [address] [address] [place] [address] VIRWBC (Bld) [#/Vol]8.4 10*3/uLNormal4-11[facility] Ambulatory PPGComment on above:Performed By: #### CBCA #### [facility] (TT) [address] [place] [address] [facility] auto differentialon 51-46-8045Wtcnyiouc (Bld) [#/Vol]0 10*3/uL0.0 - 0.2 10*3/uLHolzer Medical Center – Jackson SystemBasophils/100 WBC (Bld)0.5 % [facility] ColumbusDifferential cell count method Nom (Bld)AUTOMATED DIFFERENTIALChildren's Hospital of ColumbusEosinophils (Bld) [#/Vol]0 10*3/uL0.0 - 0.4 10*3/uLChildren's Hospital of ColumbusEosinophils/100 WBC (Bld)0.6 %[facility] ColumbusErythrocyte distribution width (RBC) [Ratio]15.5 %High11.5 - 15 %[facility] ColumbusHematocrit (Bld) [Volume fraction]40.4 %35 - 47 %[facility] ColumbusHemoglobin (Bld) [Mass/Vol]13.5 g/dL11.7 - 15.5 g/dLChildren's Hospital of ColumbusInterpretation and review of laboratory resultsAbnoECU Health North HospitalLymphocytes (Bld) [#/Vol]1.8 10*3/uL1.0 - 3.5 10*3/uLChildren's Hospital of ColumbusLymphocytes/100 WBC (Bld)21.3 %[facility] of ColumbusMCH (RBC) [Entitic mass]29.9 pg27 - 34 pgPGlenbeigh HospitalMCHC (RBC) [Mass/Vol]33.4 g/dL32 - 36 g/dLChildren's Hospital of ColumbusMCV (RBC) [Entitic vol]90 fL80 - 100 [facility] HealthMonocytes (Bld) [#/Vol]0.7 10*3/uL0.0 - 0.9 10*3/uLChildren's Hospital of ColumbusMonocytes/100 WBC (Bld)8 %[facility] ColumbusNeutrophils (Bld) [#/Vol]5.8 10*3/uL1.5 - 6.6 10*3/uLUniversity Hospitals Geneva Medical Centerca Health SystemNeutrophils/100 WBC (Bld)69.6 %[facility] SystemPlatelet mean volume (Bld) [Entitic vol]8.8 fL 7 - 12 [facility] SystemPlatelets (Bld) [#/Vol]245 10*3/[facility] SystemRBC (Bld) [#/Vol]4.51 10*6/[facility]-PontiacWBC LM Ql (Sput)8.4Latrobe HospitalCOMPREHENSIVE METABOLIC PANELon 62-37-2074Hgcsjmd [Mass/Vol]4.4 g/dLNormal3.2-5.3PNationwide Children's Hospital Ambulatory PPGComment on above:Performed By: #### CMP #### [facility] ([facility]) [address] [place] [address] VIRALP [Catalytic activity/Vol]87 U/LDcgdvf03-460YztCqajyr Hospital Ambulatory PPGComment on above:Performed By: #### CMP #### [facility] ([facility]) [address] [place] [address] VIRALT [Catalytic activity/Vol]29 U/LNormal<=31PNationwide Children's Hospital Ambulatory PPGComment on above:Performed By: #### CMP #### [facility] ([facility]) [address] [place] [address] VIRAnion gap [Moles/Vol]10 mmol/LNormal5-15[facility] Ambulatory PPGComment on above:Performed By: #### CMP #### [facility] ([facility]) [address] [place] [address] VIRAST [Catalytic activity/Vol]27 U/LNormal<=41[facility] Ambulatory PPGComment on above:Performed By: #### CMP #### [facility] ([facility]) [address] [place] [address] VIRBilirubin [Mass/Vol]0.3 mg/dLNormal0.3-1.2PNationwide Children's Hospital Ambulatory PPGComment on above:Performed By: #### CMP #### [facility] ([facility]) [address] [place] [address] VIRCalcium [Mass/Vol]9.8 mg/dLNormal8.5-10.5PNationwide Children's Hospital Ambulatory PPGComment on above:Performed By: #### CMP #### [facility] ([facility]) [address] [place] [address] VIRChloride [Moles/Vol]102 mmol/MCdncvf49-414AxzCvavrx Hospital Ambulatory PPGComment on above:Performed By: #### CMP #### [facility] ([facility]) [address] [place] [address] VIRCO2 [Moles/Vol]29 mmol/QKpcetu16-44GlpGvgzxv Hospital Ambulatory PPGComment on above:Performed By: #### CMP #### [facility] ([facility]) [address] [place] [address] VIRCreatinine [Mass/Vol]0.87 mg/dLNormal0.40-1.00[facility] Ambulatory PPGComment on above:Result Comment: METHOD TRACEABLE TO IDMS STANDARDPerformed By: #### CMP #### [facility] ([facility]) [address] [place] [address] VIRGFR/1.73 sq M.predicted among non-blacks MDRD (S/P/Bld) [Vol rate/Area]75 mL/min/{1.73_m2}Normal>=60[facility] Ambulatory PPGComment on above:Result Comment: Reported eGFR is based on the CKD-EPI 1 equation that does not use a race coefficient.Performed By: #### CMP #### [facility] ([facility]) [address] [place] [address] VIRGlucose [Mass/Vol]127 mg/hMNulf78-13GulHuuuzs Hospital Ambulatory PPGComment on above:Performed By: #### CMP #### [facility] ([facility]) [address] [place] [address] VIRPotassium [Moles/Vol]4.2 mmol/LNormal3.5-5.0[facility] Ambulatory PPGComment on above:Performed By: #### CMP #### [facility] ([facility]) [address] [place] [address] VIRProtein [Mass/Vol]7.5 g/dLNormal6.0-8.0ProFostoria City Hospital Ambulatory PPGComment on above:Performed By: #### CMP #### [facility] ([facility]) [address] [place] [address] VIRSodium [Moles/Vol]141 mmol/ULsuysj762-473BvqZxhwmd Hospital Ambulatory PPGComment on above:Performed By: #### CMP #### [facility] ([facility]) [address] [place] [address] VIRUrea nitrogen [Mass/Vol]19 mg/dLNormal5-27ProFostoria City Hospital Ambulatory PPGComment on above:Performed By: #### CMP #### [facility] ([facility]) [address] [place] [address] VIRComprehensive metabolic panelon 81-22-8486Gqerwtd [Mass/Vol] 4.4 g/dL3.2 - 5.3 g/dLProCleveland Clinic Children'S Hospital For Rehabilitationca Health SystemALP [Catalytic activity/Vol]87 U/L 39 - 130 U/LProMedica Health SystemALT No additional P-5'-P [Catalytic activity/Vol]29 U/LNINF - 31 U/LProMedica Health SystemAnion gap [Moles/Vol]10 mmol/L5 - 15 mmol/LProMedica Health SystemAST [Catalytic activity/Vol]27 U/LNINF - 41 U/LProMedica Health SystemBilirubin [Mass/Vol]0.3 mg/dL0.3 - 1.2 mg/dL ProMedica Health SystemCalcium [Mass/Vol]9.8 mg/dL8.5 - 10.5 mg/dLProMedica [facility] SystemChloride [Moles/Vol]102 mmol/L98 - 109 mmol/LProMedica Health SystemCO2 [Moles/Vol]29 mmol/L22 - 32 mmol/LProMedica Health SystemCreatinine [Mass/Vol]0.87 mg/dL0.40 - 1.00 mg/dLChildren's Hospital of ColumbusComment on above: METHOD TRACEABLE TO IDMS STANDARDEGFR Non-Race Qvgddxycc88- PINSaint Louis University HospitalComment on above:Reported eGFR is based on the CKD-EPI 2020 equation that does not use a race coefficient. Glucose [Mass/Vol]127 mg/mWKphh65 - 99 mg/dLChildren's Hospital of ColumbusPotassium [Moles/Vol]4.2 mmol/L3.5 - 5.0 mmol/[facility] SystemProtein [Mass/Vol] 7.5 g/dL6.0 - 8.0 g/dLAtrium Healthodium [Moles/Vol]141 mmol/L134 - 146 mmol/[facility] Memorial HospitalUrea nitrogen [Mass/Vol]19 mg/dL5 - 27 mg/dL [facility] of ColumbusHEMOGLOBIN A1Con 58-67-3578Tfddwok [Mass/Vol]143 mg/dL NormalOhioHealth Ambulatory PPGComment on above:Performed By: #### HA1C #### [facility] ([facility]) [address] [place] [address] TGKUkN9c (Bld) [Mass fraction]6.6 %High4.4-5.6[facility] Ambulatory PPGComment on above:Result Comment: ADA Guidelines Result HgbA1c Normal : less than 5.7 % Prediabetes : 5.7 % to 6.4 % Diabetes : > 6.4 % Use with caution in patients with abnormal hemoglobin variants as the half-life of red blood cells and in vivo glycation rates are affected.Performed By: #### HA1C #### [facility] ([facility]) [address] [place] [address] VIRLIPID PROFILEon 61-92-8270Ruuafqlxtmc [Mass/Vol]216 mg/dL Ezla589-771TdbDbacwz Hospital Ambulatory PPGComment on above:Performed By: #### LIPR #### [facility] ([facility]) [address] [place] [address] VIRCholesterol in HDL [Mass/Vol]49 mg/dLNormal>39Ohio[facility] Ambulatory PPGComment on above:Result Comment: HDL <40 mg/dL - High Risk HDL > or = 40mg/dL- Desirable HDL >60 mg/dL - Negative RiskPerformed By: #### LIPR #### [facility] ([facility]) [address] [place] [address] VIRCholesterol in LDL [Mass/Vol]100 mg/dLNormal<130Ohio[facility] Ambulatory PPGComment on above:Result Comment: LDL <100 mg/dL - Desirable LDL >160 mg/dL - High RiskPerformed By: #### LIPR #### [facility] ([facility]) [address] [place] [address] VIRCHOLESTEROL:HDL4.3Smrvgp3.0-5.0[facility] Ambulatory PPGComment on above:Performed By: #### LIPR #### [facility] ([facility]) [address] [place] [address] VIRTriglyceride [Mass/Vol]335 mg/pCLean83-955LchGjxdth Hospital Ambulatory PPGComment on above:Performed By: #### LIPR #### [facility] ([facility]) [address] [place] [address] VIRVERY LOW XJHNOKWMHJZ82 mg/dLHigh0-30[facility] Ambulatory PPGComment on above:Performed By: #### LIPR #### [facility] ([facility]) [address] [place] [address] VIRLipid profileon 19-23-3750Hwzuyrymjtm [Mass/Vol]216 mg/dL Wyzb981 - 200 mg/dLHolzer Medical Center – Jackson SystemCholesterol in HDL [Mass/Vol]49 mg/dL 39 - PINF mg/dLHolzer Medical Center – Jackson SystemComment on above:HDL <40 mg/dL - High Risk HDL > or = 40mg/dL- Desirable HDL >60 mg/dL - Negative Risk Cholesterol in HDL [Mass/Vol]4.4 mg/dL1.0 - 5.0[facility] Cholesterol in LDL [Mass/Vol]100 mg/dLNINF - 130 mg/dLChildren's Hospital of Columbus Comment on above:LDL <100 mg/dL - Desirable LDL >160 mg/dL - High Risk Cholesterol in VLDL [Mass/Vol]67 mg/dLHigh0 - 30 mg/dLChildren's Hospital of Columbus Triglyceride [Mass/Vol]335 mg/vZOjbe24 - 150 mg/dLChildren's Hospital of ColumbusNo Panel Informationon 48-38-9121Jchrjgsaxmjtzp and review of laboratory results AbnormalLatrobe HospitalTHYROID PROFILE INCLUDES TSH FT4on 93-95-1864Wbkh T4 [Mass/Vol]0.89 ng/dLNormal0.61-1.60[facility] Ambulatory PPGComment on above:Performed By: #### THYR #### [facility] ([facility]) [address] [place] [address] VIRTSH1.39 uIU/mLNormal0.49-4.67[facility] Ambulatory PPGComment on above:Performed By: #### THYR #### [facility] ([facility]) [address] [place] [address] VIRThyroid profile includes TSH FT4on 67-73-8391Xghb T4 [Mass/Vol]0.89 ng/dL0.61 - 1.60 ng/dLChildren's Hospital of ColumbusInterpretation and review of laboratory resultsNoHarris Regional Hospital Qn1.39 m[IU]/L Latrobe HospitalPOCT Protime / INRon 89-15-7476LOM Coag (PPP) [Relative time]1.9 {INR}Abnormal0.8 - 1.2PGlenbeigh Hospital Interpretation and review of laboratory resultsAbnoAgnesian HealthCarePOCT Protime / INRon 39-52-0378ACR Coag (PPP) [Relative time]2.5 {INR}Abnormal0.8 - 1.2PGlenbeigh HospitalInterpretation and review of laboratory resultsAbnoSelect Specialty Hospital - DanvillePOCT Protime / INRon 23-50-6062NNL Coag (PPP) [Relative time]2 {INR}Abnormal0.8 - 1.2 [facility] SystemInterpretation and review of laboratory resultsAbnormal Latrobe HospitalPOCT Protime / INRon 03-43-8834FUB Coag (PPP) [Relative time]2.3 {INR}Abnormal0.8 - 1.2POhioHealth [facility] Medical Center System Interpretation and review of laboratory resultsAbnoAgnesian HealthCarePOCT Protime / INRon 89-75-6233OOI Coag (PPP) [Relative time]2.4 {INR}Abnormal0.8 - 1.2POhioHealth Grant Medical Center SystemInterpretation and review of laboratory resultsAbWellSpan [facility] Consent Formson 65-06-2404Bxnhydr Forms [id number]#1.00[facility] Controlled Substances Agreementson 42-17-9586Rpprnkfpww Substances Agreements [id number]#1.00[facility] Progress Note - Provideron 88-21-2401Vtkspoqf Note - Provider [id number]#1.00OTMercy Health Protime / INRon 57-76-1533YGB Coag (PPP) [Relative time]2.9 {INR}Abnormal0.8 - 1.2POhioHealth Grant Medical Center SystemInterpretation and review of laboratory results AbnormalLatrobe HospitalPOCT Protime / INRon 55-93-5457FJH Coag (PPP) [Relative time]3.4 {INR}Abnormal0.8 - 1.2POhioHealth Grant Medical Center SystemInterpretation and review of laboratory resultsAbAdventHealth Durand 76-27-1170LyzmdypdpZcgnfvqys From: Ray, Fanny P To: EU - Recalls Gerry; Sent: 08/29/2024 [...] ) Other: PROVIDER RELATED REMINDER:_ ( ) Devops Architect ( ) Call Pharmacy ( ) Call Lab ( ) Other: Special Instructions:_ Comments:_[facility]er [facility] CenterUrology Office/Clinic Noteon 38-18-8857Ibbxbpg Office/Clinic NoteUrology Office/Clinic Note Chief Complaint 1 [...] to 5mm R and 3mm L. No [place]. Discussed imaging results with pt. Denies blood in urine. Denies recent infection. No UTIs this past year. Follow up in 1 yr w/LUCY and KUB. Continue stone prevention diet. Ordered: US Renal XR Abdomen 1 View Orders: Urnls Dip Stick Auto w/o Microscopy POC 97228 Follow-up With When Contact Information GERRY SAPP, ANDRE Miller, URL In 1 year [address] [place] [address] Additional Instructions: Patient Education [...] Recorded influenza virus vacc (more content not included)...[facility] County Medical CenterComment on above:Result Comment: Electronically Signed By: ANDRE MCNEIL PA-C\radha\Date and Time Signed: 08/29/2411:37 ESTCoding Summaryon 90-56-9744Mcvrqf SummaryHTMLBase 64 BlpmzpmiFHh6pHm+PGhlYWQ+UV5AMDBsT35imWBitL7jL8JRYXxKTycmBLBFQMpEUrDwizMyGF1evHKa ZXJu [file] OiB (more content not included)...[facility] HospitalMM TOMOSYNTHESIS SCREENING BIon 16-07[place]6675Ibd[place] [address] Mammography Report Signed Patient: NOEMI BRAND MR#: [id number] : 1960 Acct:[id number] Age/Sex: 64 / F ADM Date: 08/18/24 Loc: MAMMO Attending Dr: Kobi Latham D.O. Ordering Physician: Kobi Latham D.O. Results: Date of Service: 08/18/24 Follow Up: Procedure(s): MM tomosynthesis screening BI Accession Number(s): [id number] cc: Kobi Latham D.O.; ALEXANDER CHEN Patient Name: NOEMI BRAND MR#: [id number] : 1960 Exam Date: 08/18/2024 Ordering Doctor: DR Kobi Latham . RADIOLOGY REPORT PROCEDURE: MM TOMOSYNTHESIS SCREENING BI COMPARISON: MM TOMOSYNTHESIS SCREENING BI, 08/13/2023. MG MAMM SCREEN 3D TERENCE CAD, 06/05/2022. MG MAMM SCREEN 3D TERENCE CAD, 05/28/2021. MG MAMM SCREEN TERENCE W CAD, 01/25/2018. INDICATIONS: Screening Calculator Name NCI Breast Cancer Risk Assessment Tool 5 Year Breast Cancer Risk 1.90% Lifetime Breast Cancer Risk 8.10% Personal Breast Cancer No Personal Ovarian Cancer No Treatments None Family Cancers Sister with thyroid cancer at age 52. LOCATION: [facility] BREAST COMPOSITION: There are scattered areas of fibroglandular density. FINDINGS: DIAGNOSTIC CATEGORY 1--NEGATIVE. RIGHT BREAST: No significant suspicious finding. No significant change has occurred. LEFT BREAST: No significant suspicious finding. No significant change has occurred. RECOMMENDATIONS: ROUTINE MAMMOGRAM AND CLINICAL EVALUATION IN 12 MONTHS. PLEASE NOTE: A NORMAL MAMMOGRAM DOES NOT EXCLUDE THE POSSIBILITY OF BREAST CANCER. A CLINICALLY SUSPICIOUS PALPABLE LUMP SHOULD BE BIOPSIED. Dictated by: Yesenia Black M.D. on 08/18/2024 at 09:57 Approved by: Yesenia Black M.D. on 08/18/2024 at 10:07 Dictated By: Yesenia Black M.D. Signed By: 08/18/24 1008 DD/ 1007 TD/TT: Political Science Research Assistant:TBHRadiology, Radiologist, MD - 08/18/2024 [place] [address] Mammography Report Signed Patient: NOEMI BRAND MR#: [id number] : 1960 Acct:[id number] Age/Sex: 64 / F ADM Date: 08/18/24 Loc: MAMMO Attending Dr: Kobi Latham D.O. Ordering Physician: Kobi Latham D.O. Results: Date of Service: 08/18/24 Follow Up: Procedure(s): MM tomosynthesis screening BI Accession Number(s): [id number] cc: Kobi Latham D.O.; ALEXANDER CHEN Patient Name: NOEMI BRAND MR#: [id number] : 1960 Exam Date: 08/18/2024 Ordering Doctor: DR Kobi Latham . RADIOLOGY REPORT PROCEDURE: MM TOMOSYNTHESIS SCREENING BI COMPARISON: MM TOMOSYNTHESIS SCREENING BI, 08/13/2023. MG MAMM SCREEN 3D TERENCE CAD, 06/05/2022. MG MAMM SCREEN 3D TERENCE CAD, 05/28/2021. MG MAMM SCREEN TERENCE W CAD, 01/25/2018. INDICATIONS: Screening Calculator Name NCI Breast Cancer Risk Assessment Tool 5 Year Breast Cancer Risk 1.90% Lifetime Breast Cancer Risk 8.10% Personal Breast Cancer No Personal Ovarian Cancer No Treatments None Family Cancers Sister with thyroid cancer at age 52. LOCATION: [facility] BREAST COMPOSITION: There are scattered areas of fibroglandular density. FINDINGS: DIAGNOSTIC CATEGORY 1--NEGATIVE. RIGHT BREAST: No significant suspicious finding. No significant change has occurred. LEFT BREAST: No significant suspicious finding. No significant change has occurred. RECOMMENDATIONS: ROUTINE MAMMOGRAM AND CLINICAL EVALUATION IN 12 MONTHS. PLEASE NOTE: A NORMAL MAMMOGRAM DOES NOT EXCLUDE THE POSSIBILITY OF BREAST CANCER. A CLINICALLY SUSPICIOUS PALPABLE LUMP SHOULD BE BIOPSIED. Dictated by: Yesenia Black M.D. on 08/18/2024 at 09:57 Approved by: Yesenia Black M.D. on 08/18/2024 at 10:07 Dictated By: Yesenia Black M.D. Signed By: 08/18/24 1008 DD/ 1007 TD/TT: Political Science Research Assistant: [facility] HospitalRadiology Study observation (narrative)[facility] TOMOSYNTHESIS SCREENING BIOrdered By: Radiologist Radiology on 35-55-9281EKTB [employer]ht[employer] Work Phone: complement C3on 93-14-1940Yxchdvrrws C3167 mg/dLNormal 82-167The [facility] County Physician GroupComment on above:Result Comment: Performed at: - [facility] [id number] Reclamation Furnace Operator: Thony Mcmillan PhD, Phone: [phone] By: #### C4, CH50, C3 #### [facility] , #### CBC, UA, CMP, ESR #### [facility] [address] [place] [address] USAComplement C4on 15-63-6988Zofelvsltv C440 mg/aTWtyx94-17 [facility] Physician GroupComment on above:Result Comment: PERFORMED BY: [place] [address] PATHOLOGIST CREDIT CONTROL ADMINISTRATOR BELEM MCCALL M.D.Performed By: #### C4, CH50, C3 #### [facility] , #### CBC, UA, CMP, ESR #### [facility] [address] [place] [address] USAComplement Total (CH50)on 06-16-1063Jfpkmxdhao Total (CH50)>60Normal>41The [facility] Physician GroupComment on above:Result Comment: Age Male [...] out of range values. Performed at: - [facility] [id number] Reclamation Furnace Operator: Thony Mcmillan PhD, Phone: [phone] PERFORMED BY: [place] [address] PATHOLOGIST CREDIT CONTROL ADMINISTRATOR BELEM MCCALL M.D.Performed By: #### C4, CH50, C3 #### [facility] , #### CBC, UA, CMP, ESR #### [place] [address] USAComplete Blood Count Auto Diffon 85-87-9293Brzmjspxz (Bld) [#/Vol]0.0 10*3/uLNormal0.0-0.2The [facility] Physician GroupComment on above: Performed By: #### C4, CH50, C3 #### [facility] , #### CBC, UA, CMP, ESR #### [place] [address] USABasophils/100 WBC (Bld)0.4 %Normal.The [facility] Physician GroupComment on above:Performed By: #### C4, CH50, C3 #### [facility] , #### CBC, UA, CMP, ESR #### [place] [address] USAEosinophils (Bld) [#/Vol]0.1 10*3/uLNormal0.0-0.45The [facility] Physician GroupComment on above:Performed By: #### C4, CH50, C3 #### [facility] , #### CBC, UA, CMP, ESR #### [place] [address] USAEosinophils/100 WBC (Bld)0.7 %Normal.[facility] Physician GroupComment on above:Performed By: #### C4, CH50, C3 #### [facility] , #### CBC, UA, CMP, ESR #### [place] [address] USAErythrocyte distribution width (RBC) [Ratio]14.4 %Normal 11.9-15.3The [facility] Physician GroupComment on above:Performed By: #### C4, CH50, C3 #### [facility] , #### CBC, UA, CMP, ESR #### [facility] [address] [place] [address] USAHematocrit (Bld) [Volume fraction]39.7 %Ttmpcg04.0-46.4The [facility] Physician GroupComment on above:Performed By: #### C4, CH50, C3 #### [facility] , #### CBC, UA, CMP, ESR #### [place] [address] USAHemoglobin (Bld) [Mass/Vol]13.3 g/eGVjispc69.8-15.4The [facility] Physician GroupComment on above:Performed By: #### C4, CH50, C3 #### [facility] , #### CBC, UA, CMP, ESR #### [facility] [address] [place] [address] USALymphocytes (Bld) [#/Vol]2.1 10*3/uLNormal1.00-4.8The [facility] Physician GroupComment on above:Performed By: #### C4, CH50, C3 #### [facility] , #### CBC, UA, CMP, ESR #### [place] [address] USALymphocytes/100 WBC (Bld)23.6 %Normal.[facility] Physician GroupComment on above:Performed By: #### C4, CH50, C3 #### [facility] , #### CBC, UA, CMP, ESR #### [address] (RBC) [Entitic mass]30.9 sdGxhmjt19.7-34.3The [facility] Physician GroupComment on above:Performed By: #### C4, CH50, C3 #### [facility] , #### CBC, UA, CMP, ESR #### [address] (RBC) [Entitic vol]92.1 lNJmjycg03-193Puk [facility] Physician GroupComment on above:Performed By: #### C4, CH50, C3 #### [facility] , #### CBC, UA, CMP, ESR #### [facility] [address] [place] [address] USAMean Corpuscular HGB Conc33.6 g/gUEhiude17.0-35.0The [facility] Physician GroupComment on above:Performed By: #### C4, CH50, C3 #### [facility] , #### CBC, UA, CMP, ESR #### [place] [address] USAMonocytes (Bld) [#/Vol]0.7 10*3/uLNormal0.0-0.8The [facility] Physician GroupComment on above:Performed By: #### C4, CH50, C3 #### [facility] , #### CBC, UA, CMP, ESR #### [facility] [address] [place] [address] USAMonocytes/100 WBC (Bld)7.8 %Normal.The [facility] Physician GroupComment on above:Performed By: #### C4, CH50, C3 #### [facility] , #### CBC, UA, CMP, ESR #### [facility] [address] [place] [address] USANeutrophils (Bld) [#/Vol]6.0 10*3/uLNormal1.8-7.7The [facility] Physician GroupComment on above:Performed By: #### C4, CH50, C3 #### [facility] , #### CBC, UA, CMP, ESR #### [facility] [address] [place] [address] USANeutrophils/100 WBC (Bld)67.5 %Normal.[facility] Physician GroupComment on above:Performed By: #### C4, CH50, C3 #### [facility] , #### CBC, UA, CMP, ESR #### [facility] [address] [place] [address] USANRBC%0.0 /100{WBC}Normal0-0.5The [facility] Comment on above:Performed By: #### C4, CH50, C3 #### [facility] , #### CBC, UA, CMP, ESR #### [facility] [address] [place] [address] USAPlatelet mean volume (Bld) [Entitic vol]8.9 fLNormal 6.3-10.7The [facility] Physician GroupComment on above:Performed By: #### C4, CH50, C3 #### [facility] , #### CBC, UA, CMP, ESR #### [facility] [address] [place] [address] USAPlatelets (Bld) [#/Vol]255 10*3/[id number] [facility] Physician GroupComment on above:Performed By: #### C4, CH50, C3 #### [facility] , #### CBC, UA, CMP, ESR #### [facility] [address] [place] [address] USARBC (Bld) [#/Vol]4.31 10*6/uLNormal3.60-5.00The [facility] Physician GroupComment on above:Performed By: #### C4, CH50, C3 #### [facility] , #### CBC, UA, CMP, ESR #### [place] [address] USAWBC (Bld) [#/Vol]8.8 10*3/uLNormal3.8-11.6The [facility] Physician GroupComment on above:Performed By: #### C4, CH50, C3 #### [facility] , #### CBC, UA, CMP, ESR #### [place] [address] USAComprehensive Metabolic Panelon 69-23-0255Lmjuhog [Mass/Vol]4.0 g/dLNormal3.5-5.7The [facility] Physician [facility]agoula HospitalComment on above: Performed By: #### C4, CH50, C3 #### [facility] , #### CBC, UA, CMP, ESR #### [place] [address] USAAlbumin/Globulin [Mass ratio]1.5 {ratio}NormalThe Wellspan Good Samaritan HospitalComment on above:Performed By: #### C4, CH50, C3 #### [facility] , #### CBC, UA, CMP, ESR #### [place] [address] USAALP [Catalytic activity/Vol]80 U/FQsqxqh99-471Mpi [facility] Samaritan HospitalComment on above:Result Comment: PERFORMED BY: [place] [address] PATHOLOGIST CREDIT CONTROL ADMINISTRATOR BELEM MCCALL M.D.Performed By: #### C4, CH50, C3 #### [facility] , #### CBC, UA, CMP, ESR #### [place] [address] USAALT [Catalytic activity/Vol]17 U/LNormal7-52The [facility] Physician GroupComment on above:Performed By: #### C4, CH50, C3 #### [facility] , #### CBC, UA, CMP, ESR #### [place] [address] USAAnion gap [Moles/Vol]11.5 mmol/LNormal6.0-15.0The [facility] Physician GroupComment on above:Performed By: #### C4, CH50, C3 #### [facility] , #### CBC, UA, CMP, ESR #### [facility] [address] [place] [address] USAAST [Catalytic activity/Vol]12 U/VNpa88-07Bpf [facility] Physician GroupComment on above:Performed By: #### C4, CH50, C3 #### [facility] , #### CBC, UA, CMP, ESR #### [facility] [address] [place] [address] USABilirubin [Mass/Vol]0.3 mg/dLNormal0.3-1.0The [facility] Physician GroupComment on above:Performed By: #### C4, CH50, C3 #### [facility] , #### CBC, UA, CMP, ESR #### [facility] [address] [place] [address] USACalcium [Mass/Vol]9.2 mg/dLNormal8.6-10.3The [facility] Physician GroupComment on above:Performed By: #### C4, CH50, C3 #### [facility] , #### CBC, UA, CMP, ESR #### [facility] [address] [place] [address] USAChloride [Moles/Vol]102 mmol/ZAqlshe59-582Zhx [facility] Physician GroupComment on above:Performed By: #### C4, CH50, C3 #### [facility] , #### CBC, UA, CMP, ESR #### [facility] [address] [place] [address] USACO2 [Moles/Vol]29.7 mmol/SYlvacc21.0-31.0The [facility] Physician GroupComment on above:Performed By: #### C4, CH50, C3 #### [facility] , #### CBC, UA, CMP, ESR #### [facility] [address] [place] [address] USACreatinine [Mass/Vol]1.05 mg/dLNormal0.60-1.20The [facility] Physician GroupComment on above:Performed By: #### C4, CH50, C3 #### [facility] , #### CBC, UA, CMP, ESR #### [place] [address] USAEstimated GFR59.703 mL/MinNormAultman Orrville Hospitale [facility] Physician [place]oula HospitalComment on above:Performed By: #### C4, CH50, C3 #### [facility] , #### CBC, UA, CMP, ESR #### [facility] [address] [place] [address] USAGlobulin (S) [Mass/Vol]2.7 g/dLNoSelect Specialty Hospital - Greensboro Physician [place]ascagoula HospitalComment on above:Performed By: #### C4, CH50, C3 #### [facility] , #### CBC, UA, CMP, ESR #### [place] [address] USAGlucose [Mass/Vol]154 mg/nWKfdd85-867Xew [facility] Physician GroupComment on above:Result Comment: Random Glucose Reference Range is dependent on time and content of last meal. Glucose of more than 200 mg/dL in a nonstressed, ambulatory subject supports the diagnosis of Diabetes Mellitus. ADA recommended reference rangePerformed By: #### C4, CH50, C3 #### [facility] , #### CBC, UA, CMP, ESR #### [place] [address] USAPotassium [Moles/Vol]4.2 mmol/LNormal3.5-5.1The [facility] Physician GroupComment on above:Performed By: #### C4, CH50, C3 #### [facility] , #### CBC, UA, CMP, ESR #### [place] [address] USAProtein [Mass/Vol]6.7 g/dLNormal6.4-8.9The [facility] Physician GroupComment on above:Performed By: #### C4, CH50, C3 #### [facility] , #### CBC, UA, CMP, ESR #### [place] [address] USASodium [Moles/Vol]139 mmol/LZzsaax531-387Smo [facility] Physician GroupComment on above:Performed By: #### C4, CH50, C3 #### [facility] , #### CBC, UA, CMP, ESR #### [place] [address] USAUrea nitrogen [Mass/Vol]20 mg/dLNormal7-25The [facility] Physician GroupComment on above:Performed By: #### C4, CH50, C3 #### [facility] , #### CBC, UA, CMP, ESR #### [place] [address] USAErythrocyte Sedimentation Rateon 94-32-3232KRY (Bld) [Velocity]20 mm/hNormal0-29The [facility] Physician GroupComment on above:Result Comment: PERFORMED BY: [place] [address] PATHOLOGIST CREDIT CONTROL ADMINISTRATOR BELEM MCCALL M.D.Performed By: #### C4, CH50, C3 #### [facility] , #### CBC, UA, CMP, ESR #### [place] [address] USAUrinalysison 29-72-4466Nbhlpdgull (U)ClearNormalClearGulf Breeze Hospital Physician GroupComment on above:Order Comment: Name Collection Type:: Clean-Voided MidstreamPerformed By: #### C4, CH50, C3 #### [facility] , #### CBC, UA, CMP, ESR #### [place] [address] USABilirubin,UrineNegativeNormalNegativeGulf Breeze Hospital Physician GroupComment on above:Order Comment: Name Collection Type:: Clean- Voided MidstreamPerformed By: #### C4, CH50, C3 #### [facility] , #### CBC, UA, CMP, ESR #### [place] [address] USAColor (U)Light-YellowNormalYellowGulf Breeze Hospital Physician GroupComment on above:Order Comment: Name Collection Type:: Clean-Voided MidstreamPerformed By: #### C4, CH50, C3 #### [facility] , #### CBC, UA, CMP, ESR #### [place] [address] USAGlucose Ql (U)NormalNormalNormalThe [facility] Physician GroupComment on above:Order Comment: Name Collection Type:: Clean-Voided MidstreamPerformed By: #### C4, CH50, C3 #### [facility] , #### CBC, UA, CMP, ESR #### [place] [address] USAKetones Ql (U)NegativeNormalNegativeGulf Breeze Hospital Physician GroupComment on above:Order Comment: Name Collection Type:: Clean- Voided MidstreamPerformed By: #### C4, CH50, C3 #### [facility] , #### CBC, UA, CMP, ESR #### [place] [address] USALeukocyte esterase Test strip Ql (U)NegativeNormalNegative The [facility] Physician GroupComment on above:Order Comment: Name Collection Type:: Clean-Voided MidstreamPerformed By: #### C4, CH50, C3 #### [facility] , #### CBC, UA, CMP, ESR #### [place] [address] USANitrite,UrineNegativeNormalNegativeThe [facility] Physician GroupComment on above:Order Comment: Name Collection Type:: Clean-Voided MidstreamPerformed By: #### C4, CH50, C3 #### [facility] , #### CBC, UA, CMP, ESR #### [place] [address] USAOccult Blood,UrineNegativeNormalNegativeThe [facility] Physician GroupComment on above:Order Comment: Name Collection Type:: Clean- Voided MidstreamResult Comment: PERFORMED BY: [place] [address] PATHOLOGIST CREDIT CONTROL ADMINISTRATOR BELEM MCCALL M.D.Performed By: #### C4, CH50, C3 #### [facility] , #### CBC, UA, CMP, ESR #### [place] [address] USApH (U)5.5 [pH]Normal5.0-9.0The [facility] Physician Group Comment on above:Order Comment: Name Collection Type:: Clean-Voided Midstream Performed By: #### C4, CH50, C3 #### [facility] , #### CBC, UA, CMP, ESR #### [place] [address] USAProtein,UrineNegativeNormalNegativeThe [facility] Physician GroupComment on above:Order Comment: Name Collection Type:: Clean-Voided MidstreamPerformed By: #### C4, CH50, C3 #### [facility] , #### CBC, UA, CMP, ESR #### [place] [id number] USASpecificy [place],Urine1.686Izeazh5.001-1.030The [facility] Physician GroupComment on above:Order Comment: Name Collection Type:: Clean- Voided MidstreamPerformed By: #### C4, CH50, C3 #### [facility] , #### CBC, UA, CMP, ESR #### [facility] [address] [place] [address] USAUrobilinogen,UrineNormalNormalNormalThe [facility] Physician GroupComment on above:Order Comment: Name Collection Type:: Clean- Voided MidstreamPerformed By: #### C4, CH50, C3 #### [facility] , #### CBC, UA, CMP, ESR #### [place] [address] USACBC AND AUTO DIFFon 40-90-1317JHNJFBJU BASOPHIL0.1 X10E9/L Normal0.0-0.2ProMedGenesis HospitalComment on above:Performed By: #### CODY CMP, , 2132-05 #### [facility] ([id number]) [address], [address] [place], [place] [address]UWUSBQOA NEUTROPHIL7.2 X10E9/LHigh1.5-6.6ProMemorial Health SystemComment on above:Performed By: #### CBCA, CMP, , 2132-05 #### [facility] ([id number]) [address], [address] [place], [place] [address]Idqzktzzv/100 WBC (Bld)0.9 %NormalProMarion Hospital Hospital Comment on above:Performed By: #### CBCA, CMP, , 2132-05 #### [facility] ([id number]) [address], [address] [place], [place] [address]Jfxrqwklusy (Bld) [#/Vol]0.0 10*3/uLNormal0.0-0.4ProMedica Highland HospitalComment on above:Performed By: #### ELDER ROSS, , 2132-05 #### [facility] ([id number]) [address], [address] [place], [place] [address]Gdrzarrghfq/100 WBC (Bld)0.4 %NormalProMarion Hospital Hospital Comment on above:Performed By: #### CBCELDER Ely, , 2132-05 #### [facility] ([id number]) [address], [facility] [address] [place], [place] [address]Xpcqzjhcwfp distribution width (RBC) [Ratio]15.2 %High11.5-15.0 [facility] High[facility] HospitalComment on above:Performed By: #### ELDER ROSS, , 2132-05 #### [facility] ([id number]) [address], [address] [place], [place] [address]Ihxtppalah (Bld) [Volume fraction]41.9 %Hetsqk05-42GhdDufomr [place]edo HospitalComment on above:Performed By: #### ELDER ROSS, , 2132-05 #### [facility] ([id number]) [address], [address] [place], [place] [address]Uxfsfgdadh (Bld) [Mass/Vol]14.3 g/lZKpyqlq42.7-15.5ProMedica High[facility] HospitalComment on above:Performed By: #### ELDER ROSS, , 2132-05 #### [facility] ([id number]) [address], [address] [place], [place] [address]Uqnpnzprjhy (Bld) [#/Vol]1.7 10*3/uLNormal1.0-3.5ProMedica Highland HospitalComment on above:Performed By: #### CBCSolis CMP, , 2132-05 #### [facility] ([id number]) [address], [address] [place], [place] [address]Biuktvcgail/100 WBC (Bld)18.0 %NormalProCleveland Clinic Children'S Hospital For Rehabilitationca [facility] Comment on above:Performed By: #### CBCA, CMP, , 2132-05 #### [facility] ([id number]) [address], [address] [place], [place] [address]GVE (RBC) [Entitic mass]31.7 puKjxhtp09-86KlpNsbcdr Highland HospitalComment on above:Performed By: #### CBCA, CMP, , 2132-05 #### [facility] ([id number]) [address], [address] [place], [place] [address]FDIF (RBC) [Mass/Vol]34.2 g/oZSjzjjw25-58McxXartgx [facility] HospitalComment on above:Performed By: #### CBCA, CMP, , 2132-05 #### [facility] ([id number]) [address], [address] [place], [place] [address]YHC (RBC) [Entitic vol]93 mYNrlwko56-597EwoQhpiqb [facility] HospitalComment on above:Performed By: #### CBCA, CMP, , 2132-05 #### [facility] ([id number]) [address], [address] [place], [place] [address]Nonsiqcwp (Bld) [#/Vol]0.6 10*3/uLNormal0-0.9ProMedica High[facility] HospitalComment on above:Performed By: #### CBCA, CMP, , 2132-05 #### [facility] ([id number]) [address], [address] [place], [place] [address]Toifambbk/100 WBC (Bld)6.1 %NormalProMedica [facility]illo Hospital Comment on above:Performed By: #### CBCSolis, CMP, , 2132-05 #### [facility] ([id number]) [address], [address] [place], [place] [address]Jgxdaggcgdq/100 WBC (Bld)74.6 %NormalChildren's Hospital for Rehabilitation Comment on above:Performed By: #### CBCSolis, CMP, , 2132-05 #### [facility] ([id number]) [address], [address] [place], [place] [address]Bvwsoqrx mean volume (Bld) [Entitic vol]9.1 fLNormal7-12 [facility] Grant HospitalComment on above:Performed By: #### CODY CMP, , 2132-05 #### [facility] ([id number]) [address], [address] [place], [place] [address]Gnoqqbivf (Bld) [#/Vol]265 10*3/qEWqpczi580-720DdwLyzowh [facility] HospitalComment on above:Performed By: #### ELDER ROSS, , 2132-05 #### [facility] ([id number]) [address], [address] [place], [place] [address]KLD COUNT4.51 X10E12/LNormal3.80-5.20[facility] Comment on above:Performed By: #### CBCSolis, CMP, , 2132-05 #### [facility] ([id number]) [address], [address] [place], [place] [address]HLV (Bld) [#/Vol]9.6 10*3/uLNormal4.0-11.0ProMarion Hospital HospitalComment on above:Performed By: #### CBCSoils, CMP, , 2132-05 #### [facility] ([id number]) [address], [address] [place], [place] [address]HDTVWDIWCXVQN METABOLIC PANELon 71-11-6061Gnvqwtx [Mass/Vol]4.4 g/dLNormal3.2-5.3ProMedica Carrillo HospitalComment on above:Performed By: #### ELDER ROSS, 34078-5, 2132-05 #### [facility] ([id number]) [address], [address] [place], [place] [address]ORO [Catalytic activity/Vol]80 U/VVwmvnf97-262OkwKlrrdg Carrillo HospitalComment on above:Performed By: #### ELDER ROSS, 63970-1, 2132-05 #### [facility] ([id number]) [address], [address] [place], [place] [address]YBD [Catalytic activity/Vol]21 U/LNormal0-31ProMedica Carrillo HospitalComment on above:Performed By: #### ELDER ROSS, , 2132-05 #### [facility] ([id number]) [address], [address] [place], [place] [address]Tcgof gap [Moles/Vol]11 mmol/LNormal5-15ProMedica Carrillo HospitalComment on above:Performed By: #### ELDER ROSS, , 2132-05 #### [facility] ([id number]) [address], [address] [place], [place] [address]VWT [Catalytic activity/Vol]18 U/LNormal0-41ProMedica Carrillo HospitalComment on above:Performed By: #### ELDER ROSS, 94028-9, 2132-05 #### [facility] ([id number]) [address], [address] [place], [place] [address]Yzulcxxwb [Mass/Vol]0.3 mg/dLNormal0.3-1.2ProMedica Carrillo HospitalComment on above:Performed By: #### ELDER ORSS, 32944-9, 2132-05 #### [facility] ([id number]) [address], [address] [place], [place] [address]Exedzyq [Mass/Vol]9.6 mg/dLNormal8.5-10.5PMansfield HospitalComment on above:Performed By: #### ELDER ROSS, 80609-6, 2132-05 #### [facility] ([id number]) [address], [address] [place], [place] [address]Fagxddes [Moles/Vol]101 mmol/ZIbndog68-349VgiFmjxgd [place] HospitalComment on above:Performed By: #### ELDER ROSS, , 2132-05 #### [facility] ([id number]) [address], [address] [place], [place] [address]QL1 [Moles/Vol]28 mmol/IVedarg60-13XfwZkjicp [facility] Comment on above:Performed By: #### ELDER ROSS, , 2132-05 #### [facility] ([id number]) [address], [address] [place], [place] [address]Cvgfgyylls [Mass/Vol]0.96 mg/dLNormal0.40-1.00ProMemorial Health SystemComment on above:Result Comment: METHOD TRACEABLE TO IDMS STANDARD Performed By: #### ELDER ROSS, , 2132-05 #### [facility] ([id number]) [address], [address] [place], [place] [address]EPC/1.73 sq M.predicted among non-blacks MDRD (S/P/Bld) [Vol rate/Area]66 mL/min/{1.73_m2}Normal>59ProMemorial Health SystemComment on above: Result Comment: Reported eGFR is based on the CKD-EPI 2020 equation that does not use a race coefficient.Performed By: #### ELDER ROSS, 76090-1, 2132-05 #### [facility] ([id number]) [address], [address] [place], [place] [address]Iuskilf [Mass/Vol]130 mg/oCEsna64-20WdqRtucqfMemorial Health System Comment on above:Performed By: #### ELDER ROSS, , 2132-05 #### [facility] ([id number]) [address], [address] [place], [place] [address]Rskvbpflb [Moles/Vol]4.0 mmol/LNormal3.5-5.0ProCleveland Clinic Children'S Hospital For Rehabilitationca Highland HospitalComment on above:Performed By: #### ELDER ROSS, , 2132-05 #### [facility] ([id number]) [address], [address] [place], [place] [address]Ugjbwdf [Mass/Vol]7.4 g/dLNormal6.0-8.0Pro[facility] Comment on above:Performed By: #### ELDER ROSS, , 2132-05 #### [facility] ([id number]) [address], [address] [place], [place] [address]Cwihtw [Moles/Vol]140 mmol/YBgsdbv218-531FsdXclpko [place] HospitalComment on above:Performed By: #### ELDER ROSS, , 2132-05 #### [facility] ([id number]) [address], [address] [place], [place] [address]Qwns nitrogen [Mass/Vol]23 mg/dLNormal5-27ProCleveland Clinic Children'S Hospital For Rehabilitationca [facility] HospitalComment on above:Performed By: #### ELDER ROSS, , 2132-05 #### [facility] ([id number]) [address], [address] [place], [place] [address]Pidma 1996 panelon 12-59-1481Bgvbfianeci [Mass/Vol]213 mg/dLHigh 150-200ProMedica Highland HospitalComment on above:Performed By: #### ELDER ROSS, , 2132-05 #### [facility] ([id number]) [address], [address] [place], [place] [address]Hrxqnafjcqk in HDL [Mass/Vol]58 mg/dLNormal>39ProMediPremier Health HospitalComment on above:Result Comment: HDL <40 mg/dL - High Risk HDL > or = 40mg/dL- Desirable HDL >60 mg/dL - Negative Risk Performed By: #### ELDER ROSS, , 2132-05 #### [facility] ([id number]) [address], [address] [place], [place] [address]Gdombmitqwd in LDL [Mass/Vol]90 mg/dLNormal<130ProMarion Hospital HospitalComment on above:Result Comment: LDL <100 mg/dL - Desirable LDL >160 mg/dL - High Risk Performed By: #### ELDER ROSS, , 2132-05 #### [facility] ([id number]) [address], [address] [place], [place] [address]Bclcielnydt in VLDL [Mass/Vol]65 mg/dLHigh0-30ProMarion Hospital HospitalComment on above:Performed By: #### ELDER ROSS, , 2132-05 #### [facility] ([id number]) [address], [address] [place], [place] [address]BNYJNXPRZBX:HDL3.8Wutvku5.0-5.0ProMarion Hospital HospitalComment on above:Performed By: #### ELDER ROSS, , 2132-05 #### [facility] ([id number]) [address] [place], [place] [address]Rjyaulzcfbxl [Mass/Vol]326 mg/uZYeqp18-012MpwFiglsx Grant HospitalComment on above:Performed By: #### CBCA, CMP, 13134-0, 2132-05 #### [facility] ([id number]) [address] [place], [place] [address]DFYPKCW B12on 97-15-8912Dwdkofbjg (Vitamin B12) [Mass/Vol]pg/mL Nlcc897-134PrgAasdri Grant HospitalComment on above:Performed By: #### CBCA, CMP, , 2132-05 #### [facility] ([id number]) [address] [place], [place] [address]OGD,APTIMA HPV,AGE GDLNon 87-32-2574BGG GDLN ACOG TESTINGNote. St[facility] Peres HospitalComment on above:TESTS RESULT FLAG UNITS REF RANGE LAB Clinician Provided Cytology Information Source.............Cervix;Endocervix No. of containers..01 ThinPrep Vial Age Algo ACOG Trudy... FLAG LEGEND: L-Low Normal,H-High Normal,LL-Alert Low,HH-Alert High <-Panic Low,>-Panic High,A-Abnormal,AA-Critical Abnormal Performed at: 01 =[address] [place] [address] Fatmata Marks MD, HPV APTIMAPositiveAbnormalNegativeNOMS HealthcareComment on above:This nucleic acid amplification test detects fourteen high- risk HPV types (16,18,31,33,35,39,45,51,52,56,58,59,66,68) without differentiation. HPV GENOTYPE 16NegativeNegativeNOMS HealthcareHPV GENOTYPE 18,45NegativeNegative NOMS HealthcareComment on above:Performed at: =[address] [id number] [employer]clamation Furnace Operator: Fatmata Marks MD, Phone: [phone] Performed at: [address] [id number] [employer]clamation Furnace Operator: Fatmata Marks MD, Phone: [phone] IGP, APTIMA HPV, RFX 16/18,45Note.NOMS HealthcareComment on above:TESTS RESULT FLAG UNITS REF RANGE LAB DIAGNOSIS: 02 NEGATIVE FOR INTRAEPITHELIAL LESION OR MALIGNANCY. CELLULAR CHANGES ASSOCIATED WITH ATROPHY AND INFLAMMATION ARE PRESENT. Specimen adequacy: 02 Satisfactory for evaluation. Endocervical component may not be distinguished in cases of atrophy. Areas of partially obscuring inflammatory exudate are present. Performed by: Patrick Rivers, Fusion Analyst (ASCP) . 02 Note: Note 02 The [...] Low,>-Panic High,A-Abnormal,AA-Critical Abnormal Performed at: [address] [address] Fatmata Marks MD, Interpretation and review of laboratory resultsAbnormalSt. Lukes Des Peres Hospital BRUSH-SPATULA CERVIX ENDOCERVIX CLINISYNCSt. Lukes Des Peres HospitalAlanine aminotransferase [Enzymatic activity/volume] in Serum or PlasmaOrdered By: Carlotta Stanley on 44-33-9258KCA [Catalytic activity/Vol]16 U/L7-52Veterans Health AdministrationAlbumin [Mass/volume] in Serum or Plasma by Bromocresol green (BCG) dye binding methoOrdered By: Carlotta Stanley on 79-77-2557Olthwmj BCG dye [Mass/Vol]4.0 g/dL3.5-5.7FLake County Memorial Hospital - WestAlkaline phosphatase [Enzymatic activity/volume] in Serum or PlasmaOrdered By: Carlotta Stanley on 68-15-0936ZNJ [Catalytic activity/Vol]72 U/J24-419AsbeksfcaVeterans Health AdministrationAspartate aminotransferase [Enzymatic activity/volume] in Serum or PlasmaOrdered By: Carlotta Stanley on 90-71-3306NDS [Catalytic activity/Vol]12 U/D36-85LatywxgqfVeterans Health AdministrationAutomated epithelial cells count in urine sediment (number/area)Ordered By: Carlotta Stanley on 15-85-5890Rhpisfdezb cells Auto (Urine sed) [#/Area]0-1 [HPF]0-2FLake County Memorial Hospital - WestBacteria [Presence] in Urine by AutomatedOrdered By: Carlotta Stanley on 73-68-1796Efbvinhh Auto Ql (U)None seen [HPF]None SeenVeterans Health AdministrationBasophils Auto (Bld) [#/Vol]Ordered By: Carlotta Stanley on 08-80-9121Afazldhrv (Bld) [#/Vol]0.1 10*3/uL0.0-0.2FLake County Memorial Hospital - WestBasophils/100 WBC Auto (Bld)Ordered By: Carlotta Stanley on 02-25-2024 Basophils/100 WBC (Bld)0.8 %.[facility] AdministrationBilirubin Test strip Ql (U)Ordered By: Carlotta Stanley on 49-19-6969Dwskbkxol Ql (U)Negative NegativeVeterans Health AdministrationBilirubin.total [Mass/volume] in Serum or PlasmaOrdered By: Carlotta Stanley on 69-52-1007Paehxsfmb [Mass/Vol]0.3 mg/dL 0.3-1.0[facility] AdministrationCalcium [Mass/volume] in Serum or Plasma Ordered By: Carlotta Stanley on 36-21-0514Dfyyrwf [Mass/Vol]9.1 mg/dL8.6-10.3 [facility] AdministrationCarbon dioxide, total [Moles/volume] in Serum or PlasmaOrdered By: Carlotta Stanley on 90-94-2400ZZ0 [Moles/Vol]30.9 mmol/L 21.0-31.0[facility] AdministrationChloride [Moles/volume] in Serum or PlasmaOrdered By: Carlotta Stanley on 26-40-6354Lrkjzcem [Moles/Vol]103 mmol/L 98-107[facility] AdministrationColor Auto (U)Ordered By: Carlotta Stanley on 54-54-4457Patmc (U)YellowYellowVeterans Health AdministrationCreatinine [Mass/volume] in Serum or PlasmaOrdered By: Carlotta Stanley on 02-25-2024 Creatinine [Mass/Vol]0.91 mg/dL0.60-1.20[facility] Eosinophils Auto (Bld) [#/Vol]Ordered By: Carlotta Stanley on 02-25-2024 Eosinophils (Bld) [#/Vol]0.1 10*3/uL0.0-0.45[facility] Eosinophils/100 WBC Auto (Bld)Ordered By: Carlotta Stanley on 02-25-2024 Eosinophils/100 WBC (Bld)0.9 %.[facility] AdministrationErythrocyte distribution width Auto (RBC) [Ratio]Ordered By: Carlotta Stanley on 02-25-2024 Erythrocyte distribution width (RBC) [Ratio]15.0 %11.9-15.3FLake County Memorial Hospital - WestErythrocyte sedimentation rate by Photometric methodOrdered By: Carlotta Stanley on 02-89-6139HKS Photometric method (Bld) [Velocity]21 mm/hr0-29 [facility] AdministrationErythrocytes [#/area] in Urine sediment by Automated countOrdered By: Carlotta Stanley on 52-31-3408RWG Auto (Urine sed) [#/Area]0-1 [HPF]0-4FLake County Memorial Hospital - WestGlobulin Calc (S) [Mass/Vol]Ordered By: Carlotta Stanley on 08-93-6104Lyzawrzn (S) [Mass/Vol]2.5 g/dLVeterans Health AdministrationGlucose [Mass/volume] in Serum or Plasma Ordered By: Carlotta Stanley on 11-67-0366Tqiokfq [Mass/Vol]119 mg/gE00-064 [facility] AdministrationComment on above:ADA recommended reference rangeRandom Glucose Reference Range is dependent on time and content of last meal. Glucose of more than 200 mg/dL in a nonstressed, ambulatory subject supports the diagnosisof Diabetes Mellitus.Hematocrit Auto (Bld) [Volume fraction]Ordered By: Carlotta Stanley on 18-90-6852Ihhgwwtwni (Bld) [Volume fraction]38.3 %34.0-46.4FLake County Memorial Hospital - WestHemoglobin [Mass/volume] in BloodOrdered By: Carlotta Stanley on 14-82-4529Iqqebabwgi (Bld) [Mass/Vol]12.6 g/dL11.8-15.4FLake County Memorial Hospital - WestKetones Auto test strip (U) [Mass/Vol]Ordered By: Carlotta Stanley on 31-71-1685Jaqrpxx (U) [Mass/Vol]NegativeNegativeVeterans Health AdministrationLaboratory - UrinalysisOrdered By: Carlotta Stanley on 17-19-7892[place] casts LM Ql (Urine sed)None seen [LPF]0-8[facility] AdministrationLeukocytes [#/area] in Urine sediment by Automated countOrdered By: Carlotta Stanley on 69-62-1633RDR Auto (Urine sed) [#/Area]0-1 [HPF]0-4FLake County Memorial Hospital - WestLeukocytes [#/volume] corrected for nucleated erythrocytes in Blood by Automated coun Ordered By: Carlotta Stanley on 74-49-5554GIW corrected for nucl RBC Auto (Bld) [#/Vol]6.8 10*3/uL3.8-11.6FLake County Memorial Hospital - WestLymphocytes Auto (Bld) [#/Vol]Ordered By: Carlotta Stanley on 34-92-6200Qullqmtetxc (Bld) [#/Vol] 1.7 10*3/uL1.00-4.8V[facility] AdministrationLymphocytes/100 WBC Auto (Bld)Ordered By: Carlotta Stanley on 66-88-1810Jatttjcgfrw/100 WBC (Bld)25.2 %. [facility]H Auto (RBC) [Entitic mass]Ordered By: Carlotta Stanley on 64-49-6391JUZ (RBC) [Entitic mass]30.5 pg24.7-34.3FLake County Memorial Hospital - WestMCHC Auto (RBC) [Mass/Vol]Ordered By: Carlotta Stanley on 56-35-2712XZKV (RBC) [Mass/Vol]33.0 g/dL32.0-35.0V[facility] AdministrationMCV Auto (RBC) [Entitic vol]Ordered By: Carlotta Stanley on 32-56-8229HKE (RBC) [Entitic vol]92.5 gA96-056Nyhsmsmwo Regional Medical CenterMonocytes Auto (Bld) [#/Vol]Ordered By: Carlotta Stanley on 03-35-8148Vitjtvddd (Bld) [#/Vol]0.7 10*3/uL0.0-0.8[facility] AdministrationMonocytes/100 WBC Auto (Bld) Ordered By: Carlotta Stanley on 24-70-4603Ixiqdpqsm/100 WBC (Bld)10.0 %.[facility] AdministrationNeutrophils Auto (Bld) [#/Vol]Ordered By: Carlotta Stanley on 96-68-0535Ckbvuifxgbc (Bld) [#/Vol]4.3 10*3/uL1.8-7.7FLake County Memorial Hospital - WestNeutrophils/100 WBC Auto (Bld)Ordered By: Carlotta Stanley on 10-88-1457Bttvgoywgaf/100 WBC (Bld)63.1 %.[facility] Nitrite Test strip Ql (U)Ordered By: Carlotta Stanley on 05-66-4624Uxbvqnf Ql (U) NegativeNegativeVeterans Health AdministrationNo Panel InformationOrdered By: Carlotta Stanley on 40-98-3802Bpbluqqsy GFR (CKD-EPI)> 60.0 mL/MinVeterans Health AdministrationPharmacy Creatinine Clearance (ChemN/AFLake County Memorial Hospital - WestNucleated erythrocytes [Presence] in Blood by Automated count Ordered By: Carlotta Stanley on 44-58-5063Bggurdzln RBC Auto Ql (Bld)0.1 /100{WBC} 0-0.5FLake County Memorial Hospital - WestPlatelet mean volume Auto (Bld) [Entitic vol]Ordered By: Carlotta Stanley on 98-93-9369Yjnryrvm mean volume (Bld) [Entitic vol]8.1 fL6.3-10.7FLake County Memorial Hospital - WestPlatelets Auto (Bld) [#/Vol] Ordered By: Carlotta Stanley on 97-60-9327Hcxuogerb (Bld) [#/Vol]297 10*3/uL 150-450V[facility] AdministrationPotassium [Moles/volume] in Serum or PlasmaOrdered By: Carlotta Stanley on 34-73-5207Xpjsctcoi [Moles/Vol]4.1 mmol/L 3.5-5.1FLake County Memorial Hospital - WestProtein Auto test strip (U) [Mass/Vol] Ordered By: Carlotta Stanley on 14-17-8113Zzsxsyv (U) [Mass/Vol]NegativeNegative [facility] AdministrationProtein [Mass/volume] in Serum or PlasmaOrdered By: Carlotta Stanley on 72-87-1617Chtadpj [Mass/Vol]6.5 g/dL6.4-8.9V[facility] AdministrationRBC Auto (Bld) [#/Vol]Ordered By: Carlotta Stanley on 88-98-0411ICR (Bld) [#/Vol]4.14 10*6/uL3.60-5.00[facility] Medical Centererum or plasma albumin/globulin mass ratioOrdered By: Carlotta Stanley on 48-72-5237Hpevbgd/Globulin [Mass ratio]1.6 {ratio}[facility] Medical Centererum or plasma anion gap determinationOrdered By: Carlotta Stanley on 83-06-2340Flgiz gap [Moles/Vol]9.2 mmol/L6.0-15.0[facility] Medical Centerodium [Moles/volume] in Serum or PlasmaOrdered By: Carlotta Stanley on 19-76-4914Hgwphf [Moles/Vol]139 mmol/I825-581ErtndnuynVeterans Health Administration Specific gravity Auto test strip (U) [Rel density]Ordered By: Carlotta Stanley on 78-01-0236Qjoqitti gravity (U) [Rel density]1.0151.001-1.030V[facility] AdministrationUrea nitrogen [Mass/volume] in Serum or PlasmaOrdered By: Carlotta Stanley on 46-58-9684Ukml nitrogen [Mass/Vol]20 mg/dL7-25V[facility] AdministrationUrine clarity by refractometry automatedOrdered By: Carlotta Stanley on 74-14-0403Ftzoodk Refractometry automated (U)ClearCleSamaritan HospitalUrine glucose measurement by automated test strip (mass/volume) Ordered By: Carlotta Stanley on 54-81-7170Dumfyfg Auto test strip (U) [Mass/Vol] Normal mg/dLNoKnox Community HospitalUrine hemoglobin detection by automated test stripOrdered By: Carlotta Stanley on 15-60-9224Jxpfncllvu Auto test strip Ql (U)NegativeNegKettering Health PrebleUrine leukocyte esterase detection by automated test stripOrdered By: Carlotta Stanley on 22-15-3364Vlyypvejn esterase Auto test strip Ql (U)NegativeNegKettering Health PrebleUrobilinogen Auto test strip (U) [Mass/Vol]Ordered By: Carlotta Stanley on 31-32-5188Eymlbufjsvqv (U) [Mass/Vol]Normal mg/dLMemorial Health SystemWBC Auto (Bld) [#/Vol]Ordered By: Carlotta Stanley on 48-80-6199YAO (Bld) [#/Vol]6.8 10*3/uL3.8-11.6FLake County Memorial Hospital - WestpH Auto test strip (U)Ordered By: Carlotta Stanley on 36-17-4733xN (U)5.5 [pH]5.0-9.0V[facility] AdministrationCBC AND AUTO DIFFon 79-43-8295LIJHGQXE BASOPHIL0.0 X10E9/LNormal0.0-0.2PMansfield Hospital Comment on above:Performed By: #### CBCA, CMP, TSHR, 2132-05 #### [facility] ([id number]) [address] [facility] [address] [place], [place] [address]TEVYRXFN NEUTROPHIL6.1 X10E9/LNormal1.5-6.6Children[facility] Hospital for RehabilitationComment on above:Performed By: #### CBCA, CMP, TSHR, 2132-05 #### [facility] ([id number]) [facility], [address] [place], [place] [address]Rparqzjfa/100 WBC (Bld)0.5 %NormalChildren's Hospital for Rehabilitation Comment on above:Performed By: #### CBCA, CMP, TSHR, 2132-05 #### [facility] ([id number]) [address] [address] [place], [place] [address]Dnmpdqfctre (Bld) [#/Vol]0.1 10*3/uLNormal0.0-0.4ProMarion Hospital HospitalComment on above:Performed By: #### CBCA, CMP, TSHR, 2132-05 #### [facility] ([id number]) [address] [facility] [address] [place], [place] [address]Xssdgjqnnvm/100 WBC (Bld)0.6 %NormalProMarion Hospital Hospital Comment on above:Performed By: #### CBCA, CMP, TSHR, 2132-05 #### [facility] ([id number]) [address] [place], [place] [address]Vtjhhyvtaro distribution width (RBC) [Ratio]14.6 %Normal 11.5-15.0ProMarion Hospital HospitalComment on above:Performed By: #### CBCA, CMP, TSHR, 2132-05 #### [facility] ([id number]) [address] [place], [place] [address]Kpjcgeiwup (Bld) [Volume fraction]41.7 %Pkskwi42-30XiyRotwuf [place] HospitalComment on above:Performed By: #### CBCA, CMP, TSHR, 2132-05 #### [facility] ([id number]) [address] [place], [place] [address]Kbhxjnocym (Bld) [Mass/Vol]13.6 g/gPDhghna36.7-15.5PSouthern [facility] Medical Center HospitalComment on above:Performed By: #### CBCA, CMP, TSHR, 2132-05 #### [facility] ([id number]) [address] [facility] [place], [place] [address]Fnlnmsysjmv (Bld) [#/Vol]1.5 10*3/uLNormal1.0-3.5ProMedica Highland HospitalComment on above:Performed By: #### CBCA, CMP, TSHR, 2132-05 #### [facility] ([id number]) [address] [place], [place] [address]Euxqhogwgzn/100 WBC (Bld)17.6 %NormalProMarion Hospital Hospital Comment on above:Performed By: #### CBCA, CMP, TSHR, 2132-05 #### [facility] ([id number]) [address] [place], [place] [address]XKE (RBC) [Entitic mass]30.0 eiHrcrln25-62NqzPfgjjx [place] HospitalComment on above:Performed By: #### CBCA, CMP, TSHR, 2132-05 #### [facility] ([id number]) [address] [place], [place] [address]BTMK (RBC) [Mass/Vol]32.6 g/yKTmsrle47-29BpyHvegte [place] HospitalComment on above:Performed By: #### CBCA, CMP, TSHR, 2132-05 #### [facility] ([id number]) [address], [address] [place], [place] [address]YQE (RBC) [Entitic vol]92 lLWzpwad51-275WtaVmmptw [place] HospitalComment on above:Performed By: #### CBCA, CMP, TSHR, 2132-05 #### [facility] ([id number]) [address], [address] [place], [place] [address]Lucyedihu (Bld) [#/Vol]0.7 10*3/uLNormal0-0.9ProMarion Hospital HospitalComment on above:Performed By: #### CBCA, CMP, TSHR, 2132-05 #### [facility] ([id number]) [address], [address] [place], [place] [address]Cfwoqajot/100 WBC (Bld)8.0 %NormalChildren's Hospital for Rehabilitation Comment on above:Performed By: #### CBCA, CMP, TSHR, 2132-05 #### [facility] ([id number]) [address], [address] [place], [place] [address]Tsbhnsobjym/100 WBC (Bld)73.3 %NormalChildren's Hospital for Rehabilitation Comment on above:Performed By: #### CBCA, CMP, TSHR, 2132-05 #### [facility] ([id number]) [address], [address] [place], [place] [address]Clsiveet mean volume (Bld) [Entitic vol]9.0 fLNormal7-12 [facility] Hospital for RehabilitationComment on above:Performed By: #### CBCA, CMP, TSHR, 2132-05 #### [facility] ([id number]) [address], [address] [place], [place] [address]Tjoezyffx (Bld) [#/Vol]255 10*3/sGVwdqnk860-231ZqqYutczu [place] HospitalComment on above:Performed By: #### CBCA, CMP, TSHR, 2132-05 #### [facility] ([id number]) [address] [address] [place] [address]SFM COUNT4.52 X10E12/LNormal3.80-5.20[facility] Comment on above:Performed By: #### CBCA, CMP, TSHR, 2132-05 #### [facility] ([id number]) [address] [place], [place] [address]VNB (Bld) [#/Vol]8.4 10*3/uLNormal4.0-11.0[facility] Hospital for RehabilitationComment on above:Performed By: #### CBCA, CMP, TSHR, 2132-05 #### [facility] ([id number]) [address], [address] [place] [address]YTFZBQRRASWWF METABOLIC PANELon 21-13-0585Zxdfqfh [Mass/Vol]4.2 g/dLNormal3.2-5.3ProMedica Carrillo HospitalComment on above:Performed By: #### CBCA, CMP, TSHR, 2132-05 #### [facility] ([id number]) [address], [address] [place] [address]DNP [Catalytic activity/Vol]97 U/ZUsaukq86-694ErrKizebs [facility] HospitalComment on above:Performed By: #### CBCA, CMP, TSHR, 2132-05 #### [facility] ([id number]) [address] [place] [address]ZPO [Catalytic activity/Vol]22 U/LNormal0-31ProMedeastpointe hospital [facility] HospitalComment on above:Performed By: #### CBCA, CMP, TSHR, 2132-05 #### [facility] ([id number]) [address], [address] [place], [place] [address]Twaxp gap [Moles/Vol]10 mmol/LNormal5-15ProMedica Carrillo HospitalComment on above:Performed By: #### CBCA, CMP, TSHR, 2132-05 #### [facility] ([id number]) [address], [address] [place], [place] [address]WWR [Catalytic activity/Vol]15 U/LNormal0-41ProMedica Carrillo HospitalComment on above:Performed By: #### CBCA, CMP, TSHR, 2132-05 #### [facility] ([id number]) [address] [place], [place] [address]Ufeojsnmw [Mass/Vol]0.3 mg/dLNormal0.3-1.2ProMedica Carrillo HospitalComment on above:Performed By: #### CBCA, CMP, TSHR, 2132-05 #### [facility] ([id number]) [address] [address] [place], [place] [address]Kcpavio [Mass/Vol]9.1 mg/dLNormal8.5-10.5PMansfield HospitalComment on above:Performed By: #### CBCA, CMP, TSHR, 2132-05 #### [facility] ([id number]) [address] [place], [place] [address]Nqxchmjv [Moles/Vol]102 mmol/WHjfour52-734QooEduhxp [place] HospitalComment on above:Performed By: #### CBCA, CMP, TSHR, 2132-05 #### [facility] ([id number]) [address] [address] [place], [place] [address]CD6 [Moles/Vol]30 mmol/XHmubfr45-62HxtYucqqpMansfield Hospital Comment on above:Performed By: #### CBCA, CMP, TSHR, 2132-05 #### [facility] ([id number]) [address] [address] [place], [place] [address]Podkngpwhh [Mass/Vol]0.99 mg/dLNormal0.40-1.00ProMemorial Health SystemComment on above:Result Comment: METHOD TRACEABLE TO IDMS STANDARD Performed By: #### CBCA, CMP, TSHR, 2132-05 #### [facility] ([id number]) [address] [address] [place], [place] [address]FDQ/1.73 sq M.predicted among non-blacks MDRD (S/P/Bld) [Vol rate/Area]64 mL/min/{1.73_m2}Normal>59ProMemorial Health SystemComment on above: Result Comment: Reported eGFR is based on the CKD-EPI 2020 equation that does not use a race coefficient.Performed By: #### CBCA, CMP, TSHR, 2132-05 #### [facility] ([id number]) [address], [address] [place], [place] [address]Jyyonar [Mass/Vol]108 mg/kBDaso93-53CyaTsdbniChildren's Hospital for Rehabilitation Comment on above:Performed By: #### CBCA, CMP, TSHR, 2132-05 #### [facility] ([id number]) [address] [place] [address]Cqxstxkgw [Moles/Vol]4.1 mmol/LNormal3.5-5.0ProMarion Hospital HospitalComment on above:Performed By: #### CBCA, CMP, TSHR, 2132-05 #### [facility] ([id number]) [address] [place], [place] [address]Ggavlxl [Mass/Vol]7.3 g/dLNormal6.0-8.0[facility] Comment on above:Performed By: #### CBCA, CMP, TSHR, 2132-05 #### [facility] ([id number]) [address], [address] [place], [place] [address]Ikmrfy [Moles/Vol]142 mmol/TCllpbd894-522QtmLnyolw [place] HospitalComment on above:Performed By: #### CBCA, CMP, TSHR, 2132-05 #### [facility] ([id number]) [address], [address] [place] [address]Opzf nitrogen [Mass/Vol]17 mg/dLNormal5-27ProMarion Hospital HospitalComment on above:Performed By: #### CBCA, CMP, TSHR, 2132-05 #### [facility] ([id number]) [address], [address] [place], [place] [address]MZS WITH REFLEXon 63-24-3158DCC6.36 uIU/mLNormal0.49-4.67 ProMTrumbull Regional Medical Center HospitalComment on above:Performed By: #### CBCA, CMP, TSHR, 2132-05 #### [facility] ([id number]) [address], [address] [place], [place] [address]YHWFGAZ B12on 65-80-9346Hgmujyhqh (Vitamin B12) [Mass/Vol]1078 pg/gHTbco871-072JzqXpxvum Grant HospitalComment on above:Performed By: #### CBCA, CMP, TSHR, 2132-9 #### [facility] ([id number]) [address], [address] [place], [place] [address]Gzdrmwdn Analysison 80-97-3852Clklqrv oxalate dihydrate Infrared spectroscopy (Stone) [Mass fraction]50 %Invalid Interpretation [facility] CenterComment on above:Performed By: #### [id number] #### [facility] [address] [place], [place] [address]Omjcgcr oxalate monohydrate (Stone) [Mass fraction]50 %Invalid Interpretation [facility] CenterComment on above:Performed By: #### [id number] #### [facility] [address] [place], [place] [address]Rdaxh (Stone)BrownInvalid Interpretation [facility] CenterComment on above:Performed By: #### [id number] #### [facility] [address] [place], [place] [address]DjypetdmhjeKazqbfcIetsrax Interpretation [facility] CenterComment on above:Result Comment: Percentage (Represents the % composition)Performed By: #### [id number] #### [facility] [address] [place], [place] [address]Pwspnvytge:CommentInvalid Interpretation [facility] CenterComment on above:Result Comment: This test was developed and its performance characteristics determined by [employer]. It has not been cleared or approved by the Food and Drug Administration. Performed at: [address] [id number] Harris Padillaformed By: #### [id number] #### [facility] [address] [place], [place] [address]Dcoqvecewi comment Gagandeep (Report)CommentInvalid Interpretation [facility] CenterComment on above:Result Comment: Physician questions regarding Calculi Analysis contact [facility] at: [phone].Performed By: #### [id number] #### [facility] [address] [place], [place] [address]Iekxez Note:CommentInvalid Interpretation [facility] CenterComment on above:Result Comment: Calculi report will follow via computer, mail or architect internship delivery.Performed By: #### [id number] #### [facility] [address] [place], [place] [address]Doha (Stone) [Entitic vol]4l3Menbogv Interpretation [facility] CenterComment on above:Result Comment: Single piece received. Performed By: #### [id number] #### [facility] [address] [place], [place] [address]Woasxjkn source subject NomCommentInvalid Interpretation Code [facility] HospitalComment on above:Result Comment: Not provided Performed By: #### [id number] #### [facility] [address] [place], [place] [address]Korqn PhotoCommentInvalid Interpretation [facility] CenterComment on above:Result Comment: Photograph will follow under a separate coverPerformed By: #### [id number] #### [facility] [address] [place], [place] [address]Faxlqe (Stone)52 mgInvalid Interpretation [facility] CenterComment on above:Performed By: #### [id number] #### [facility] [address] [place], [place] [address]UTM - MISCon 91-36-9216FLM - MISC [id number]#1.00TIFFNormRegency Hospital ToledoAlanine aminotransferase [Enzymatic activity/volume] in Serum or Plasma Ordered By: Pancho Underwood on 94-71-1681JWX [Catalytic activity/Vol]16 U/L7-52 [facility] AdministrationAlbumin [Mass/volume] in Serum or Plasma by Bromocresol green (BCG) dye binding methoOrdered By: Pancho Underwood on 81-31-6532Wjjqcvx BCG dye [Mass/Vol]4.3 g/dL3.5-5.7FLake County Memorial Hospital - WestAlkaline phosphatase [Enzymatic activity/volume] in Serum or PlasmaOrdered By: Pancho Underwood on 25-12-6626CJV [Catalytic activity/Vol]77 U/L34-104 [facility] AdministrationAspartate aminotransferase [Enzymatic activity/volume] in Serum or PlasmaOrdered By: Pancho Underwood on 21-49-5515WDT [Catalytic activity/Vol]15 U/K39-74NgjrbpgcnVeterans Health AdministrationAutomated erythrocytes count in urine sediment (number/area)Ordered By: Pancho Underwood on 83-15-5722PJA Auto (Urine sed) [#/Area]3-4 [HPF]0-4FLake County Memorial Hospital - WestAutomated leukocytes count in urine sediment (number/area)Ordered By: Pancho Underwood on 48-95-7617PRR Auto (Urine sed) [#/Area]0-1 [HPF]0-4FLake County Memorial Hospital - WestBasophils Auto (Bld) [#/Vol]Ordered By: Pancho Underwood on 17-68-1779Sojhuzfph (Bld) [#/Vol]0.1 10*3/uL0.0-0.2FLake County Memorial Hospital - WestBasophils/100 WBC Auto (Bld)Ordered By: Pancho Underwood on 10-04-2023 Basophils/100 WBC (Bld)0.7 %.V[facility] Health AdministrationBilirubin Test strip Ql (U)Ordered By: Pancho Underwood on 75-66-0335Ltyynswau Ql (U)Negative NegativeVeterans Health AdministrationBilirubin.total [Mass/volume] in Serum or PlasmaOrdered By: Pancho Underwood on 96-82-3216Zfxzyibmg [Mass/Vol]0.4 mg/dL 0.3-1.0[facility] AdministrationCalcium [Mass/volume] in Serum or Plasma Ordered By: Pancho Underwood on 86-31-5585Xpdrhie [Mass/Vol]9.6 mg/dL8.6-10.3 [facility] AdministrationCarbon dioxide, total [Moles/volume] in Serum or PlasmaOrdered By: Pancho Underwood on 93-66-8235FP6 [Moles/Vol]29.9 mmol/L 21.0-31.0V[facility] AdministrationChloride [Moles/volume] in Serum or PlasmaOrdered By: Pancoh Underwood on 03-83-2104Dfwbammt [Moles/Vol]99 mmol/L 98-107V[facility] Health AdministrationColor Auto (U)Ordered By: Pancho Underwood on 87-48-0501Iuhpv (U)YellowYellowVeterans Health AdministrationCreatinine [Mass/volume] in Serum or PlasmaOrdered By: Pancho Underwood on 10-04-2023 Creatinine [Mass/Vol]1.08 mg/dL0.60-1.20[facility] Eosinophils Auto (Bld) [#/Vol]Ordered By: Pancho Underwood on 10-04-2023 Eosinophils (Bld) [#/Vol]0.1 10*3/uL0.0-0.45[facility] Eosinophils/100 WBC Auto (Bld)Ordered By: Pancho Underwood on 10-04-2023 Eosinophils/100 WBC (Bld)0.7 %.V[facility] AdministrationErythrocyte distribution width Auto (RBC) [Ratio]Ordered By: Pancho Underwood on 10-04-2023 Erythrocyte distribution width (RBC) [Ratio]14.0 %11.9-15.3FLake County Memorial Hospital - WestErythrocyte sedimentation rate by Photometric methodOrdered By: Pancho Underwood on 28-55-3342CQG Photometric method (Bld) [Velocity]26 mm/hr0-29 [facility] AdministrationGlobulin Calc (S) [Mass/Vol]Ordered By: Pancho Underwood on 13-60-7575Ylyippru (S) [Mass/Vol]2.7 g/dLVeterans Health AdministrationGlucose [Mass/volume] in Serum or PlasmaOrdered By: Pancho Underwood on 35-11-5669Ggsqmxe [Mass/Vol]128 mg/cI08-815PsdsmvpdwVeterans Health Administration Comment on above:ADA recommended reference rangeRandom Glucose Reference Range is dependent on time and content of last meal. Glucose of more than 200 mg/dL in a nonstressed, ambulatory subject supports the diagnosisof Diabetes Mellitus. Hematocrit Auto (Bld) [Volume fraction]Ordered By: Pancho Underwood on 10-04-2023 Hematocrit (Bld) [Volume fraction]40.7 %34.0-46.4FLake County Memorial Hospital - WestHemoglobin [Mass/volume] in BloodOrdered By: Pancho Underwood on 10-04-2023 Hemoglobin (Bld) [Mass/Vol]13.6 g/dL11.8-15.4FLake [facility] West Ketones Auto test strip (U) [Mass/Vol]Ordered By: Pancho Underwood on 10-04-2023 Ketones (U) [Mass/Vol]NegativeNegativeVeterans Health Administration Laboratory - UrinalysisOrdered By: Pancho Underwood on 11-89-9872Mhrbhwp casts LM Ql (Urine sed)None seen [LPF]0-8[facility] AdministrationLeukocytes [#/volume] corrected for nucleated erythrocytes in Blood by Automated coun Ordered By: Pancho Underwood on 74-59-2549OSL corrected for nucl RBC Auto (Bld) [#/Vol]8.7 10*3/uL3.8-11.6FLake County Memorial Hospital - WestLymphocytes Auto (Bld) [#/Vol]Ordered By: Pancho Underwood on 76-80-6522Yghaglneswu (Bld) [#/Vol] 1.6 10*3/uL1.00-4.8[facility] AdministrationLymphocytes/100 WBC Auto (Bld)Ordered By: Pancho Underwood on 18-63-9473Bcfpyhjhtjk/100 WBC (Bld)18.0 %. [facility] AdministrationMCH Auto (RBC) [Entitic mass]Ordered By: Pancho Underwood on 87-69-6364DCY (RBC) [Entitic mass]30.6 pg24.7-34.3FLake County [facility] Hospital - WestMCHC Auto (RBC) [Mass/Vol]Ordered By: Pancho Underwood on 34-33-4591FDBL (RBC) [Mass/Vol]33.4 g/dL32.0-35.0[facility] AdministrationMCV Auto (RBC) [Entitic vol]Ordered By: Pancho Underwood on 30-76-1018VKF (RBC) [Entitic vol]91.6 gZ67-900WrbduedfdVeterans Health AdministrationMonocytes Auto (Bld) [#/Vol]Ordered By: Pancho Underwood on 41-76-9682P[place] (Bld) [#/Vol]0.7 10*3/uL0.0-0.8[facility] AdministrationMonocytes/100 WBC Auto (Bld) Ordered By: Pancho Underwood on 52-27-1275Cxmtqvjte/100 WBC (Bld)8.6 %.[facility] Health AdministrationNeutrophils Auto (Bld) [#/Vol]Ordered By: Pancho Underwood on 18-60-2491Hhelraybgop (Bld) [#/Vol]6.3 10*3/uL1.8-7.7FLake County Memorial Hospital - WestNeutrophils/100 WBC Auto (Bld)Ordered By: Pancho Underwood on 40-23-8470Bauhwhqhkze/100 WBC (Bld)72.0 %.[facility] Nitrite Test strip Ql (U)Ordered By: Pancho Underwood on 56-89-4395Ndjdwhh Ql (U) NegativeNegativeVeterans Health AdministrationNo Panel InformationOrdered By: Pancho Underwood on 30-46-9509Mfnrzmzxc GFR (CKD-EPI)58.078 mL/MinVeterans Health AdministrationPharmacy Creatinine Clearance (ChemN/AFLake County Memorial Hospital - WestNucleated erythrocytes [Presence] in Blood by Automated count Ordered By: Pancho Underwood on 13-16-2446Lgjsshasr RBC Auto Ql (Bld)0.1 /100{WBC} 0-0.5FLake County Memorial Hospital - WestPlatelet mean volume Auto (Bld) [Entitic vol]Ordered By: Pancho Underwood on 06-90-0234Paxzopfy mean volume (Bld) [Entitic vol]8.3 fL6.3-10.7FLake County Memorial Hospital - WestPlatelets Auto (Bld) [#/Vol] Ordered By: Pancho Underwood on 03-21-3929Hrjdcgyqg (Bld) [#/Vol]268 10*3/uL 150-450V[facility] Health AdministrationPotassium [Moles/volume] in Serum or PlasmaOrdered By: Pancho Underwood on 41-40-3742Yedymfnya [Moles/Vol]4.0 mmol/L 3.5-5.1FLake County Memorial Hospital - WestProtein Auto test strip (U) [Mass/Vol] Ordered By: Pancho Underwood on 03-56-1935Gbhuroh (U) [Mass/Vol]NegativeNegative [facility] AdministrationProtein [Mass/volume] in Serum or PlasmaOrdered By: Pancho Underwood on 63-39-4453Gzrwvwd [Mass/Vol]7.0 g/dL6.4-8.9V[facility] AdministrationRBC Auto (Bld) [#/Vol]Ordered By: Pancho Underwood on 53-34-9669CTE (Bld) [#/Vol]4.44 10*6/uL3.60-5.00[facility] Medical Centererum or plasma albumin/globulin mass ratioOrdered By: Pancho Underwood on 63-37-6626Nkkcpux/Globulin [Mass ratio]1.6 {ratio}[facility] Centererum or plasma anion gap determinationOrdered By: Pancho Underwood on 44-44-7152Yqerz gap [Moles/Vol]12.1 mmol/L6.0-15.0[facility] Medical Centerodium [Moles/volume] in Serum or PlasmaOrdered By: Pancho Underwood on 03-18-8613Zoqyzn [Moles/Vol]137 mmol/Q856-043RayndhdcgVeterans Health Administration Specific gravity Auto test strip (U) [Rel density]Ordered By: Pancho Underwood on 70-82-3215Lfgcelki gravity (U) [Rel density]1.0111.001-1.030[facility] Medical Centerquamous epithelial cells detection in urine sediment by light microscopyOrdered By: Pancho Underwood on 61-97-1936Jecksqicsi cells.squamous LM Ql (Urine sed)None seen [HPF]0-2FLake County Memorial Hospital - WestUrea nitrogen [Mass/volume] in Serum or PlasmaOrdered By: Pancho Underwood on 46-19-4601Klxj nitrogen [Mass/Vol]14 mg/dL7-25V[facility] AdministrationUrine bacteria detection by automated methodOrdered By: Pancho Underwood on 10-47-4602Amtorwfi Auto Ql (U)None seenNone SeenVeterans Health AdministrationUrine clarity by refractometry automatedOrdered By: Pancho Underwood on 94-14-7555Igjspta Refractometry automated (U)ClearClearFLake County Memorial Hospital - WestUrine glucose measurement by automated test strip (mass/volume)Ordered By: Pancho Underwood on 32-39-3030Mlwsgfv Auto test strip (U) [Mass/Vol]Normal mg/dLNoMercer County Community HospitalUrine hemoglobin detection by automated test stripOrdered By: Pancho Underwood on 75-00-1856Wlrlughrhh Auto test strip Ql (U)2+ NegativeVeterans Health AdministrationUrine leukocyte esterase detection by automated test stripOrdered By: Pancho Underwood on 62-95-8635Mysdfahqm esterase Auto test strip Ql (U)NegativeNegativeVeterans Health Administration Urobilinogen Auto test strip (U) [Mass/Vol]Ordered By: Pancho Underwood on 20-15-5442Odhgrojxjdsb (U) [Mass/Vol]Normal mg/dLCorey HospitalWBC Auto (Bld) [#/Vol]Ordered By: Pancho Underwood on 79-07-4839MNO (Bld) [#/Vol]8.7 10*3/uL3.8-11.6FLake County Memorial Hospital - WestpH Auto test strip (U)Ordered By: Pancho Underwood on 37-33-0040hM (U)6.0 [pH]5.0-9.0V[facility] Health AdministrationAmbulatory Visit Summaryon 50-44-9815Jbicihzoux Visit Summary NOEMI BRAND :1960 Visit Date:09/28/2023 [...] ANDRE MCNEIL PA-C Where: [facility] Urineon 19-78-0917Jtukzeyd identified Cx Nom (U) Microbiology PROCEDURE: Urine [...] This test was performed at: [facility], [address] [place] [address], [phone]- , , GxptesWziteiAshtabula County Medical CenterComment on above:Performed By: #### [id number] #### [facility] [address] [place] [address]Wrhxdvwxcp Visit Summaryon 14-36-7049Vyaqvhupyp Visit Summary NOEMI BRAND :1960 Visit Date:09/24/2023 Ambulatory Visit Instructions Your Diagnosis Chronic lower urinary tract infection Tests Performed Urnls Dip Stick Auto w/o Microscopy POC 05998 Your Care Team Attending Physician - ANDRE [...] (2017), Cataract extraction (2016), Vena cava filter (2015), Diskectomy (2008), History of knee surgery (1997), Cystoscope (1987), Caesarean section (1986). What to do next Scheduled Follow-Up Appointments Wednesday 10:00 AM EST With: ANDRE MCNEIL PA-C [facility] Reporton 35-77-4780DZP - CT Report [id number]#[id number] County Medical CenterC Urineon 25-90-2940Nddepwle identified Cx Nom (U)Microbiology PROCEDURE: Urine Culture [R1] SOURCE: U CleanCatch BODY SITE: COLLECTED DATE/TIME: 09/14/2023 15:40 EST RECEIVED DATE/TIME: 09/14/2023 17:48 EST START DATE/TIME: 09/14/2023 17:48 EST FREE TEXT SOURCE: ANDRE MCNEIL PA-C, PA-C, JENNIFER E FINAL REPORTS Final Report [] Verified Date/Time: 09/16/2023 06:57 EST 5,000 cfu/ml Mixed skin contaminants Performing Locations R1: This test was performed at: [facility], [address] [place] [address], [facility] , , GreatfQfzseuAshtabula County Medical CenterComment on above:Performed By: #### [id number] #### [facility] [address] [place], [place] [id number] Visit Summaryon 79-37-6518Ivykqvptlz Visit Summary NOEMI BRAND :1960 Visit Date:09/14/2023 Ambulatory Visit Instructions Your Diagnosis Feeling of incomplete bladder emptying Tests Performed Urnls Dip Stick Auto w/o Microscopy POC 86886 Your Care Team Attending Physician - ANDRE [...] ANDRE MCNEIL PA-C [facility] HospitalAlanine aminotransferase [Enzymatic activity/volume] in Serum or PlasmaOrdered By: Pancho Underwood on 98-81-9811CJR [Catalytic activity/Vol]20 U/L7-52V[facility] Health AdministrationAlbumin [Mass/volume] in Serum or Plasma by Bromocresol green (BCG) dye binding methoOrdered By: Pancho Underwood on 76-72-7338Trvnoyy BCG dye [Mass/Vol]4.1 g/dL3.5-5.7FLake County Memorial Hospital - WestAlkaline phosphatase [Enzymatic activity/volume] in Serum or PlasmaOrdered By: Pancho Underwood on 14-07-2262HFC [Catalytic activity/Vol]88 U/L 34-104V[facility] Health AdministrationAspartate aminotransferase [Enzymatic activity/volume] in Serum or PlasmaOrdered By: Pancho Underwood on 39-19-2008TTY [Catalytic activity/Vol]16 U/L57-68ZfjdvpnvcVeterans Health AdministrationAutomated epithelial cells count in urine sediment (number/area)Ordered By: Pancho Underwood on 95-51-0418Xzmhjnkrde cells Auto (Urine sed) [#/Area]1-2 [HPF]0-2FLake County Memorial Hospital - WestAutomated erythrocytes count in urine sediment (number/area)Ordered By: Pancho Underwood on 23-80-7771RGO Auto (Urine sed) [#/Area]0-1 [HPF]0-4FLake County Memorial Hospital - WestAutomated leukocytes count in urine sediment (number/area)Ordered By: Pancho Underwood on 25-16-0827ZCW Auto (Urine sed) [#/Area]1-2 [HPF]0-4FLake County Memorial Hospital - WestAutomated urine hyaline casts count (number/volume)Ordered By: Pancho Underwood on 03-19-2023 Hyaline casts Auto (U) [#/Vol]None seen [LPF]0-1FLake County Memorial Hospital - WestBasophils Auto (Bld) [#/Vol]Ordered By: Pancho Underwood on 03-19-2023 Basophils (Bld) [#/Vol]0.0 10*3/uL0.0-0.2FLake County Memorial Hospital - West Basophils/100 WBC Auto (Bld)Ordered By: Pancho Underwood on 03-19-2023 Basophils/100 WBC (Bld)0.6 %.[facility] Health AdministrationBilirubin Test strip Ql (U)Ordered By: Pancho Underwood on 70-58-6915Mvqynlfly Ql (U)Negative NegativeVeterans Health AdministrationBilirubin.total [Mass/volume] in Serum or PlasmaOrdered By: Pancho Underwood on 11-36-2926Sgokrpxtn [Mass/Vol]0.3 mg/dL 0.3-1.0V[facility] AdministrationCalcium [Mass/volume] in Serum or Plasma Ordered By: Pancho Underwood on 78-66-3961Qfxbpkk [Mass/Vol]9.1 mg/dL8.6-10.3 [facility] Health AdministrationCarbon dioxide, total [Moles/volume] in Serum or PlasmaOrdered By: Pancho Underwood on 13-25-6405NX9 [Moles/Vol]28.5 mmol/L 21.0-31.0V[facility] Health AdministrationChloride [Moles/volume] in Serum or PlasmaOrdered By: Pancho Underwood on 19-95-6053Hyfkwxhn [Moles/Vol]104 mmol/L 98-107V[facility] Health AdministrationColor Auto (U)Ordered By: Pancho Underwood on 32-42-5938Tzdxi (U)YellowYellowVeterans Health AdministrationCreatinine [Mass/volume] in Serum or PlasmaOrdered By: Pancho Underwood on 03-19-2023 Creatinine [Mass/Vol]1.02 mg/dL0.60-1.20[facility] Eosinophils Auto (Bld) [#/Vol]Ordered By: Pancho Underwood on 03-19-2023 Eosinophils (Bld) [#/Vol]0.1 10*3/uL0.0-0.45[facility] Eosinophils/100 WBC Auto (Bld)Ordered By: Pancho Underwood on 03-19-2023 Eosinophils/100 WBC (Bld)1.5 %.[facility] Health AdministrationErythrocyte distribution width Auto (RBC) [Ratio]Ordered By: Pancho Underwood on 03-19-2023 Erythrocyte distribution width (RBC) [Ratio]14.8 %11.9-15.3FLake County Memorial Hospital - WestErythrocyte sedimentation rate by Photometric methodOrdered By: Pancho Underwood on 47-29-9763MIR Photometric method (Bld) [Velocity]21 mm/hr0-29 [facility] Health AdministrationGlobulin Calc (S) [Mass/Vol]Ordered By: Pancho Underwood on 74-07-6352Yyamcbwo (S) [Mass/Vol]2.5 g/dLVeterans Health AdministrationGlucose [Mass/volume] in Serum or PlasmaOrdered By: Pancho Underwood on 26-45-9405Bkqazcx [Mass/Vol]100 mg/dU63-774AdknovbucVeterans Health Administration Comment on above:ADA recommended reference rangeRandom Glucose Reference Range is dependent on time and content of last meal. Glucose of more than 200 mg/dL in a nonstressed, ambulatory subject supports the diagnosisof Diabetes Mellitus. Hematocrit Auto (Bld) [Volume fraction]Ordered By: Pancho Underwood on 03-19-2023 Hematocrit (Bld) [Volume fraction]39.2 %34.0-46.4FLake County Memorial Hospital - WestHemoglobin [Mass/volume] in BloodOrdered By: Pancho Underwood on 03-19-2023 Hemoglobin (Bld) [Mass/Vol]12.9 g/dL11.8-15.4FLake County Memorial Hospital - West Ketones Auto test strip (U) [Mass/Vol]Ordered By: Pancho Underwood on 03-19-2023 Ketones (U) [Mass/Vol]NegativeNegativeVeterans Health Administration Leukocytes [#/volume] corrected for nucleated erythrocytes in Blood by Automated counOrdered By: Pancho Underwood on 66-35-7280KYV corrected for nucl RBC Auto (Bld) [#/Vol]7.7 10*3/uL3.8-11.6FLake County Memorial Hospital - WestLymphocytes Auto (Bld) [#/Vol]Ordered By: Pancho Underwood on 78-53-1124Oxemyyhvlww (Bld) [#/Vol]1.8 10*3/uL1.00-4.8V[facility] Health AdministrationLymphocytes/100 WBC Auto (Bld)Ordered By: Pancho Underwood on 83-81-9575Rmdflizvjrp/100 WBC (Bld)23.7 %.[facility] Health AdministrationMCH Auto (RBC) [Entitic mass]Ordered By: Pancho Underwood on 13-63-4462WHQ (RBC) [Entitic mass]29.7 pg24.7-34.3FLake County Memorial Hospital - WestMCHC Auto (RBC) [Mass/Vol]Ordered By: Pancho Underwood on 14-91-4303IYLG (RBC) [Mass/Vol]32.8 g/dL32.0-35.0V[facility] Health AdministrationMCV Auto (RBC) [Entitic vol]Ordered By: Pancho Underwood on 86-27-9119OPG (RBC) [Entitic vol]90.5 xH26-166JpdnjsrdaVeterans Health AdministrationMonocytes Auto (Bld) [#/Vol]Ordered By: Pancho Underwood on 99-48-5164Thqhijjdm (Bld) [#/Vol]0.8 10*3/uL0.0-0.8V[facility] Health AdministrationMonocytes/100 WBC Auto (Bld) Ordered By: Pancho Underwood on 65-44-5731Noeyhjvbo/100 WBC (Bld)10.1 %.[facility] Health AdministrationNeutrophils Auto (Bld) [#/Vol]Ordered By: Pancho Underwood on 58-35-7759Eyrykjkgabt (Bld) [#/Vol]4.9 10*3/uL1.8-7.7FLake County Memorial Hospital - WestNeutrophils/100 WBC Auto (Bld)Ordered By: Pancho Underwood on 24-97-8878Crrnrcyyeig/100 WBC (Bld)64.1 %.[facility] Nitrite Test strip Ql (U)Ordered By: Pancho Underwood on 61-54-9890Wxtzzki Ql (U) NegativeNegativeVeterans Health AdministrationNo Panel InformationOrdered By: Pancho Underwood on 75-96-7094Azcpmtvww GFR (CKD-EPI)> 60.0 mL/MinVeterans Health AdministrationPharmacy Creatinine Clearance (ChemN/AFLake County Memorial Hospital - WestNucleated erythrocytes [Presence] in Blood by Automated count Ordered By: Pancho Underwood on 43-53-8858Wwahqvtdm RBC Auto Ql (Bld)0.1 /100{WBC} 0-0.5FLake County Memorial Hospital - WestPlatelet mean volume Auto (Bld) [Entitic vol]Ordered By: Pancho Underwood on 06-84-6627Nudcbbse mean volume (Bld) [Entitic vol]8.5 fL6.3-10.7FLake County Memorial Hospital - WestPlatelets Auto (Bld) [#/Vol] Ordered By: Pancho Underwood on 19-66-8495Wwtxivenu (Bld) [#/Vol]251 10*3/uL 150-450V[facility] Health AdministrationPotassium [Moles/volume] in Serum or PlasmaOrdered By: Pancho Underwood on 49-53-5357Pejulgnoc [Moles/Vol]4.0 mmol/L 3.5-5.1FLake County Memorial Hospital - WestProtein Auto test strip (U) [Mass/Vol] Ordered By: Pancho Underwood on 85-98-1714Xoxavuu (U) [Mass/Vol]NegativeNegative [facility] AdministrationProtein [Mass/volume] in Serum or PlasmaOrdered By: Pancho Underwood on 00-36-1207Paubfai [Mass/Vol]6.6 g/dL6.4-8.9V[facility] Health AdministrationRBC Auto (Bld) [#/Vol]Ordered By: Pancho Underwood on 81-51-4984DQG (Bld) [#/Vol]4.33 10*6/uL3.60-5.00[facility] Centererum or plasma albumin/globulin mass ratioOrdered By: Panhco Underwood on 90-65-4109Vbvtktm/Globulin [Mass ratio]1.6 {ratio}[facility] Centererum or plasma anion gap determinationOrdered By: Pancho Underwood on 43-60-8697Awnqj gap [Moles/Vol]10.5 mmol/L6.0-15.0[facility] Medical Centerodium [Moles/volume] in Serum or PlasmaOrdered By: Pancho Underwood on 66-74-4901Cfmztu [Moles/Vol]139 mmol/E981-152ZhfdkejtwVeterans Health Administration Specific gravity Auto test strip (U) [Rel density]Ordered By: Pancho Underwood on 21-96-0727Lsybsjdx gravity (U) [Rel density]1.0061.001-1.030V[facility] Health AdministrationUrea nitrogen [Mass/volume] in Serum or PlasmaOrdered By: Pancho Underwood on 71-41-2779Wefa nitrogen [Mass/Vol]16 mg/dL7-25V[facility] AdministrationUrine bacteria detection by automated methodOrdered By: Pancho Underwood on 85-06-0645Kmeophza Auto Ql (U)None seenNone SeenVeterans Health AdministrationUrine clarity by refractometry automatedOrdered By: Pancho Underwood on 76-84-4615Uqfuvrx Refractometry automated (U)ClearClearFLake County Memorial Hospital - WestUrine glucose measurement by automated test strip (mass/volume) Ordered By: Pancho Underwood on 25-27-9761Xqoetry Auto test strip (U) [Mass/Vol] Normal mg/dLNoKnox Community HospitalUrine hemoglobin detection by automated test stripOrdered By: Pancho Underwood on 81-68-7412Hprltuwnnm Auto test strip Ql (U)NegativeNegKettering Health PrebleUrine leukocyte esterase detection by automated test stripOrdered By: Pancho Underwood on 78-17-4853Axwtebrxy esterase Auto test strip Ql (U)NegativeNegKettering Health PrebleUrobilinogen Auto test strip (U) [Mass/Vol]Ordered By: aPncho Underwood on 64-61-7246Eiifvfwjzrps (U) [Mass/Vol]Normal mg/dLMemorial Health SystemWBC Auto (Bld) [#/Vol]Ordered By: Pancho Underwood on 67-22-0143LRO (Bld) [#/Vol]7.7 10*3/uL3.8-11.6FLake County Memorial Hospital - WestpH Auto test strip (U)Ordered By: Pancho Underwood on 73-60-5471iA (U)6.0 [pH]5.0-9.0V[facility] Health AdministrationXR KUB 1 VIEWon 03-59-5179QV KUB 1 VIEWEXAMINATION: XR KUB 1 VIEW [...] Electronically authenticated by: YESENIA BLACK Date: 2022-08-07 10:44NoThe Christ HospitalOG PANEL 2: 30 to 65on 06-23-2022..NormalThe Paulding County HospitalComment on above:Result Comment: Performed at: WBPerformed By: #### [id number] #### [facility] [address] [place] [address] Dr. Barry SanchezAge Gdln ACOG Espbeqj76-03VsngruRsqBlanchard Valley Health System Bl[facility]ard Valley HospitalComment on above:Performed By: #### [id number] #### [facility] [address] [address] [address] Barry SanchezDIAGNOSIS:CommentOhioHealth on above: Result Comment: NEGATIVE FOR INTRAEPITHELIAL LESION OR MALIGNANCY. CELLULAR CHANGES ASSOCIATED WITH ATROPHY ARE PRESENT. Performed at: WBPerformed By: #### [id number] #### [facility] [address] [place] [address] Dr. Barry SanchezHPV AptimaNegativeNormalNegativeMetrohealth Main Campus Medical CenterComchelsea hospital on above:Result Comment: This nucleic acid amplification test detects fourteen high-risk HPV types (16,18,31,33,35,39,45,51,52,56,58,59,66,68) without differentiation. Performed at: =GPerformed By: #### [id number] #### [facility] [address] [place] [address] Dr. Barry SanchezMethodology:CommentOhioHealth on above: Result Comment: This liquid based ThinPrep(R) pap test was screened with the use of an image guided system. Performed at: WBPerformed By: #### [id number] #### [facility] [address] [place] [address] Dr. Barry SanchezNote:CommentOhioHealth on above:Result Comment: The Pap smear is a screening test designed to aid in the detection of premalignant and malignant conditions of the uterine cervix. It is not a diagnostic procedure and should not be used as the sole means of detecting cervical cancer. Both false-positive and false-negative reports do occur. . Performed at: WBPerformed By: #### [id number] #### [facility] [address] [address] [address] Barry SanchezPerformed by:CommentOhioHealth on above: Result Comment: Kya Rabago, Fusion Analyst (ASCP) Performed at: [facility] Centerformed By: #### [id number] #### [facility] [address] [address] [address] Barry SanchezSpecimen adequacy:CommentOhioHealth on above:Result Comment: Satisfactory for evaluation. Endocervical and/or squamous metaplastic cells (endocervical component) are present. Performed at: WBPerformed By: #### [id number] #### [facility] [address] [address] [address] Barry SanchezMG MAMM SCREEN 3D TERENCE CADon 31-90-1255UB MAMM SCREEN 3D TERENCE CAD Patient: NOEMI BRAND Exam Date: 06/05/2022 : 1960 Gender:F Ordering : DR KOBI LATHAM . Admission #: [id number] Family : DR ALEXANDER CHEN Order #: [id number] CLICK HERE TO VIEW EXAM RADIOLOGY REPORT [...] thyroid cancer at age 53. LOCATION: [facility] BREAST COMPOSITION: Scattered areas fibroglandular density. [...] by: Laney Rabago MD on 06/05/2022 at 10:39[facility] TSH+FREE T4on 31-41-4381Zosc T4 [Mass/Vol]1.4 ng/dLNormal0.8-1.8Quest DiagnosticsComment on above:Performed By: #### [id number] #### [facility] [address], [address] [place] [address] Manufacturing Software Engineer: José Miguel Mata MDTS Qn1.36 m[IU]/LNormal0.40-4.50Quest DiagnosticsComment on above:Performed By: #### [id number] #### [facility] [address] [place] [address] Manufacturing Software Engineer: José Miguel Mata MDLipid Profileon 57-81-3272Jbybrvivjkh [Mass/Vol]158 mg/dLNormal<200K[facility]tering Health MiamisburgComment on above:Result Comment: Cholesterol Guidelines: <200 Desirable 200-240 Borderline >240 UndesirablePerformed By: #### LIPR #### [employer] [address] [place] [address] [id number] Reclamation Furnace Operator: QUANG Snoiholesterol in HDL [Mass/Vol]46 mg/dLNormal>40 [facility] MiamisburgComchelsea hospital on above:Result Comment: HDL Guidelines: <40 Undesirable 40-59 Borderline >59 DesirablePerformed By: #### LIPR #### [employer] [facility] [place], [place] [id number] Reclamation Furnace Operator: QUANG Soniholesterol in LDL [Mass/Vol]74 mg/dLNormal0-130 [facility] MiamisburgComchelsea hospital on above:Result Comment: LDL Guidelines: <100 Desirable 100-129 Near to/above Desirable 130-159 Borderline >159 Undesirable Direct (measured) LDL and calculated LDL are not interchangeable tests.Performed By: #### LIPR #### [employer] [address] [place], [place] [id number] Reclamation Furnace Operator: Anselmo Sonistraissa.total/Cholesterol in HDL [Mass ratio]3.4 {ratio}Normal<5Mercy Lupton HospitalComment on above:Performed By: #### LIPR #### [employer] [address] [place], [place] [id number] Reclamation Furnace Operator: Jose Parikh MDTriglyceride [Mass/Vol]191 mg/dLHigh<150MerMercy Health Anderson Hospital HospitalComment on above:Result Comment: Triglyceride Guidelines: <150 Desirable 150-199 Borderline 200-499 High >499 Very high Based on AHA Guidelines for fasting triglyceride, June 2012.Performed By: #### LIPR #### [employer] [address] [place] [address] Reclamation Furnace Operator: KYLE Soni FLUOROSCOPY GREATER THAN ONE HOURon 64-11-2057TL FLUOROSCOPY GREATER THAN ONE HOURThis is an auto finalized result. Please refer to patient chart for further information. information. information.NormalDublin Rastafari HospitalComment on above:Order Comment: Reason for exam?:Degenerative joint disease (DJD) of hipInjury/Trauma or Illness?:Illness/OtherHow long have you had these symptoms (acute/chronic)?:ChronicType of Exam?:OngoingAdditional signs and symptoms?:n/aFluoro time in minutes:.22Fluoro dose in mGy?:2.14XR OR HIP RIGHT 1 VIEWon 88-15-4677KG OR HIP RIGHT 1 VIEWEXAMINATION:XR OR HIP [...] full details please see the dictated operative report.[facility]/gesWorkstation ID: [id number] by: DREA BEAR on WedAug 30, 2018 11:11:02 AM ESTTranscribed by: MARTY JONES on WedAug 30, 2018 11:11:37 AM ESTFinalized by: DREA BEAR on WedAug 30, 2018 4:41:51 PM [facility] HospitalComment on above:Order Comment: Reason for exam?:Degenerative joint disease (DJD) of hipInjury/Trauma or Illness?:Illness/OtherHow long have you had these symptoms (acute/chronic)?:ChronicType of Exam?:OngoingAdditional signs and symptoms?:n/aFluoro time in minutes:.22Fluoro dose in mGy?:2.14XR CERVICAL SPINE WITH FLEXION AND EXTENSION 6+ VIEWSon 93-08-0230WR CERVICAL SPINE WITH FLEXION AND EXTENSION 6+ [...] throughout the study, limiting assessment of that level.[facility]/hbWorkstation ID: [id number] by: SANTOS ANDERSON on WedAug 17, 2018 8:54:40 AM ESTTranscribed by: JILLIAN BETTENCOURT on WedAug 17, 2018 9:00:00 AM ESTFinalized by: SANTOS ANDERSON on WedAug 17, 2018 12:24:05PM [facility] HospitalComment on above:Order Comment: Reason for exam?:patInjury/Trauma or Illness?:Illness/OtherHow long have you had these symptoms (acute/chronic)?:AcuteHistory of cancer?:noSurgeries, chemotherapy, or radiation?:neck sxType of Exam?:InitialAdditional signs and symptoms?:hip Sx schedule, no complaints to neckBasic Metabolic Panelon 20-16-7052Suejg gap14 mmol/LInvalid Interpretation Code10 - 20 mmol/LDMH LABBicarbonate (HCO3)31 mmol/LInvalid Interpretation Code 21 - 32 mmol/LDMH LABBUN/Creatinine Ratio18.6 mg/mgInvalid Interpretation Code 10.0 - 20.0DMH LABCalcium9.3 mg/dLInvalid Interpretation Code8.4 - 10.2 mg/dLD KSYWkwirmyq56 mmol/LLow98 - 108 mmol/LDMH LABCreatinine1.29 mg/dLHigh0.4 - 1.1 mg/dLDMH LABeGFR (non-black)46 mL/min/{1.73_m2}Low>=60DMH LABeGFR (non-black)The eGFR should be used for monitoring renal function only and not for medication dosing.Invalid Interpretation CodeD RZQTdzgzyy614 mg/dUBjkw05 - 99 mg/dLD LABPotassium5.3 mmol/LHigh3.5 - 5.1 mmol/LD TSPMeurob040 mmol/LInvalid Interpretation Volc044 - 145 mmol/LDMH LABUrea esyqztzt14 mg/dLInvalid Interpretation Code8 - 25 mg/dLD LABCBCon 31-06-2418Ufmtuqojvcpb (RBC)0.00 K/mcLInvalid Interpretation Code0.00 - 0.00DMH LABErythrocytes (RBC)3.86 M/mcL Low4.00 - 5.20DMH LABHematocrit (HCT)31.5 %Low36 - 46 %DMH LABHemoglobin (HGB) 9.4 g/dLLow12 - 16 g/dLD LABInterpretation and review of laboratory results AbnormalInvalid Interpretation CodeD AFZVTQ97.4 pgLow26 - 34 pgDMH MXYWGFG23.8 g/dLLow31 - 37 g/dLD YWAXOD34.6 fLInvalid Interpretation Code80 - 100 fLDMH LABNucleated erythrocytes/100 erythrocytes0.0 %Invalid Interpretation CodeD LABPlatelet mean volume (PMV)11.0 fLInvalid Interpretation Code9 - 15.5 fLDMH POTGkseganru981 K/mcLInvalid Interpretation Puvu096 - 400DMH LABRDW-CA22.7 %High 11.6 - 14.8 %DM LABWBC (Leukocytes)9.87 K/mcLInvalid Interpretation Code4.50 - 11.00DMH LABPT/INRon 06-39-9944Trpoduupktj factor induced.INR assay in platelet poor plasma1.2 {INR}High0.8 - 1.1DMH LABCoagulation tissue factor induced in platelet poor gmjyug24.3 sHigh11.8 - 14.3DMH LABINR in blood by coagulation During the induction phase of oral anticoagulation, the INR may not reflect the anticoagulation status of the patient. Therapeutic ranges for INR's are: Most clinical situations: INR 2.0-3.0 Mechanical Prosthetic Valve: INR 2.5-3.5 Critical: INR >5.0Invalid Interpretation CodeD LABBasic Metabolic Panelon 76-06-8395Igaqi gap16 mmol/LInvalid Interpretation Code10 - 20 mmol/LD LAB Bicarbonate (HCO3)30 mmol/LInvalid Interpretation Code21 - 32 mmol/LDMH LAB BUN/Creatinine Ratio16.2 mg/mgInvalid Interpretation Code10.0 - 20.0DMH LAB Calcium9.5 mg/dLInvalid Interpretation Code8.4 - 10.2 mg/dLDMH GJPNgahsxks96 mmol/LInvalid Interpretation Code98 - 108 mmol/LDMH LABCreatinine0.74 mg/dL Invalid Interpretation Code0.4 - 1.1 mg/dLDMH LABeGFR (non-black)91 mL/min/{1.73_m2}Invalid Interpretation Code>=60DMH LABeGFR (non-black)The eGFR should be used for monitoring renal function only and not for medication dosing. Invalid Interpretation CodeD YEHVuafshh877 mg/fXQdyf26 - 99 mg/dLDMH LAB Interpretation and review of laboratory resultsAbnormalInvalid Interpretation CodeD LABPotassium4.8 mmol/LInvalid Interpretation Code3.5 - 5.1 mmol/LDMH LAB Xezyuh185 mmol/LInvalid Interpretation Glim384 - 145 mmol/LD LABUrea nitrogen 12 mg/dLInvalid Interpretation Code8 - 25 mg/[facility] LABCBCon 11-10-2017 Erythrocytes (RBC)0.00 K/mcLInvalid Interpretation Code0.00 - 0.00DMH LAB Erythrocytes (RBC)4.35 M/mcLInvalid Interpretation Code4.00 - 5.20DMH LAB Hematocrit (HCT)35.3 %Low36 - 46 %DM LABHemoglobin (HGB)10.9 g/dLLow12 - 16 g/[facility] LABInterpretation and review of laboratory resultsAbnormalInvalid Interpretation [facility] VESEQQ26.1 pgLow26 - 34 pgDM XPBNOTM66.9 g/dLLow31 - 37 g/[facility] TSGJTZ25.1 fLInvalid Interpretation Code80 - 100 [facility] LABNucleated erythrocytes/100 erythrocytes0.0 %Invalid Interpretation [facility] LABPlatelet mean volume (PMV)11.1 fLInvalid Interpretation Code9 - 15.5 [facility]LL[facility] LABPlatelets 251 K/mcLInvalid Interpretation Uegz462 - 400DMH LABRDW-CA22.0 %High11.6 - 14.8 %DM [...] LABInterpretation and review of laboratory resultsNormalInvalid Interpretation [facility] LABFluoroscopy Greater Than 1 Houron 25-34-9924Vvkuecasztj Greater Than 1 HourThis is an auto finalized result. Please refer to patient chart for further information.Invalid Interpretation CodeFUJI [facility] OHIOPT/INRon 26-25-2602Nhegueglmnb factor induced.INR assay in platelet poor plasma1.1 [...] laboratory resultsNormalInvalid Interpretation CodeD LABType and Screenon 92-37-3081LGZ+Rh groupPositiveInvalid Interpretation CodeD TRANSFUSION SERVICESBlood group antibody presenceNegativeInvalid Interpretation CodeD TRANSFUSION SERVICESSpecimen Hhmalcq5711/12/2017 23:59 ESTInvalid Interpretation CodeD TRANSFUSION SERVICESXR FLUOROSCOPY GREATER THAN ONE HOURon 42-78-8657FK FLUOROSCOPY GREATER THAN ONE HOURThis is an auto finalized result. Please refer to patient chart for further information. information. information.NormalDuFormerly Metroplex Adventist HospitalComment on above:Order Comment: Reason for exam?:hip painInjury/Trauma or Illness?:Illness/OtherHow long have you had these symptoms (acute/chronic)?:ChronicType of Exam?:OngoingAdditional signs and symptoms?:n/aFluoro time in minutes:.2Fluoro dose in mGy?:1.04XR OR HIP LEFT 1 VIEWon 50-56-7725WP OR HIP LEFT 1 VIEWEXAMINATION:XR OR HIP LEFT 1 VIEWHISTORY:ORDERING SYSTEM PROVIDED HISTORY: surgery, TECHNOLOGIST PROVIDED HISTORY: Reason for exam: hip painIllness/OtherEncounter Type: OngoingAdditional signs and symptoms: n/aFluoro dose in mGy: 1.04ORDERING SYSTEM PROVIDED DIAGNOSIS CODES:COMPARISON:Bilateral hipexamination from 12/24/2016 performed at [facility].FLUOROSCOPY TIME:Fluoro Dose Ka,r mGy: Fluoro dose in Ka,r mGy: 1.040.2 minutesFINDINGS:Single fluoroscopic image of the left hip is submitted d emonstrating postoperative changes of left hip arthroplasty. The acetabular and femoral components visualized on the single fluoroscopic image are well seated. Inferior portion of the femoral component is excluded. Alignment appears to be near anatomic.SYJ/gesWorkstation ID: [id number] by: KYREE GARRIDO on WedNov 09, 2017 9:33:10 AM ESTTranscribed by: MARTY JONES on WedNov 09, 2017 10:07:06 AM ESTFinalized by: KYREE GARRIDO on WedNov 09, 2017 4:03:19 PM EST NormalDuOhioHealth Arthur [facility], Cancer Center HospitalComment on above:Order Comment: Reason for exam?:hip painInjury/Trauma or Illness?:Illness/OtherHow long have you had these symptoms (acute/chronic)?:ChronicType of Exam?:OngoingAdditional signs and symptoms?:n/aFluoro time in minutes:.2Fluoro dose in mGy?:1.04XR OR Hip Left 1 Viewon 80-80-8327ZP OR Hip Left 1 ViewInterface, Rad [facility] - 11/09/2017 4:06 PM EST EXAMINATION: XR OR HIP LEFT 1 VIEW HISTORY:ORDERING SYSTEM PROVIDED HISTORY: surgery, TECHNOLOGIST PROVIDED HISTORY: Reason for exam: hip painIllness/Other Encounter Type: Ongoing Additional signs and symptoms: n/a Fluoro dose in mGy: 1.04 ORDERING SYSTEM PROVIDED DIAGNOSIS CODES: COMPARISON: Bilateral hip examination from 12/24/2016 performed at [facility]. FLUOROSCOPY TIME: Fluoro Dose Ka,r mGy: Fluoro dose in Ka,r mGy: 1.04 0.2 minutes FINDINGS: Single fluoroscopic image of the left hip is submitted demonstrating postoperative changes of left hip arthroplasty. The acetabular and femoral components visualized on the single fluoroscopic image are well seated. Inferior portion of the femoral component is excluded. Alignment appears to be near anatomic. [employer] Pet Workstation ID: [id number] Interpretation Code FUJI [facility]XR OR Hip Left 1 ViewEXAMINATION: XR OR HIP LEFT 1 VIEW HISTORY: ORDERING SYSTEM PROVIDED HISTORY: surgery, TECHNOLOGISTPROVIDED HISTORY: Reason for exam: hip pain Illness/Other Encounter Type: Ongoing Additional signs and symptoms: n/a Fluoro dose in mGy: 1.04 ORDERING SYSTEM PROVIDED DIAGNOSIS CODES: COMPARISON: Bilateral hip examination from 12/24/2016 performed at [facility]. FLUOROSCOPY TIME: Fluoro Dose Ka,r mGy: Fluoro dose in Ka,r mGy: 1.04 0.2 minutes FINDINGS: Single fluoroscopic image of the left hip is submitted demonstrating postoperative changes of left hip arthroplasty. The acetabular and femoral components visualized on the single fluoroscopic image are well seated. Inferior portion of the femoral component is excluded. Alignment appears to be near anatomic. [employer] Workstation ID: [id number] Invalid Interpretation CodeFUJI SYNAPSE CENTRAL OHIOAPTTon 29-68-4931lSUU41 s Invalid Interpretation Code23 - 34DMH LABaPTTTherapeutic range for APTT's is 68 - 104 secondsInvalid Interpretation CodeD LABInterpretation and review of laboratory resultsNormalInvalid Interpretation CodeD LABAlbuminon 10-21-2017 Albumin4.5 g/dLInvalid Interpretation Code3.2 - 5.2 g/dLD LABPT/INRon 53-94-8858Fskgldpsqnz factor induced.INR assay in platelet poor plasma1.3 [...] and review of laboratory results AbnormalInvalid Interpretation [facility] LABType and Screenon 85-04-0241TUR+Rh groupPositiveInvalid Interpretation CodeD TRANSFUSION SERVICESBlood group antibody presenceNegativeInvalid Interpretation [facility] TRANSFUSION SERVICES Specimen Ifpoofy9711/08/2017 23:59 ESTInvalid Interpretation [facility] TRANSFUSION SERVICESSCAN OTHER ORDERSon 36-19-3802LWWN OTHER ORDERSOrdered by an unspecified provider.Invalid Interpretation CodeOhioHealth Vital Signs Date TimeVital SignValuePerforming LcyjttrezLfqyogyz05-58-5706 13:45-0400Body lsgdaj060.1 cmJohn Lacoon [employer] DO Work Phone: [facility]10-21-2025 13:45-0400Body mass index (BMI) [Ratio]34.28 kg/m2Jo Lacoon [employer] DO Work Phone: [facility]10-21-2025 13:45-0400Body bwkauu38.44 kgAlexander Chen DO Work Phone: [facility]10-21-2025 13:45-0400Diastolic blood orhqmgxb02 mm[Hg]Alexander Chen DO Work Phone: [facility]10-21-2025 13:45-0400Systolic blood enusdcbg720 mm[Hg]Alexander Chen DO Work Phone: [facility]10-21-2025 10:07-0400Body mass index (BMI) [Ratio]34.41 kg/r9HqtvtKobi Munroeo DO Work Phone: [facility] HospitalNxkwbtoohc79-55-5259 10:07-0400Body muhxmc23.8 kg Kobi Munroeo DO Work Phone: [facility] HospitalDxbcqhnhcf89-15-4509 10:07-0400Diastolic blood qxpmzomq90 mm[Hg]Kobi Munroeo DO Work Phone: [facility] HospitalQuzrggtjiy79-08-5694 10:07-0400Systolic blood mm[Hg]Kobirich Munroeo DO Work Phone: [facility] HospitalQhchwqpygo81-56-8583 11:19-0400Body svnwco616.1 cmMauro Levin MD Work Phone: [facility] HospitalYdafzucftk88-36-4418 11:19-0400Body mass index (BMI) [Ratio]35.94 kg/a2BzistvxMauro Levin MD Work Phone: [facility] HospitalEongggunsv94-27-6209 11:19-0400Body cvayta07.98 kgMauro Levin MD Work Phone: [facility] HospitalEmdcxfkjgy49-46-0840 11:19-0400Diastolic blood mm[Hg]Mauro Levin MD Work Phone: [facility] HospitalUdgcavjhoi34-27-9238 11:19-0400Systolic blood fibkajxg563 mm[Hg]Mauro Levin MD Work Phone: [facility] HospitalYkfvtwvapz74-82-8949 13:50-0400Body .6 cmZoe HU Work Phone: [facility]06-24-2025 13:50-0400Body mass index (BMI) [Ratio]34.86 kg/y1VknokZoe HU Work Phone: [facility]06-24-2025 13:50-0400Body upctgx08.98 kgZoe HU Work Phone: [facility]05-19-2025 12:54-0400Body hnekxo850.6 cmAlexander Yoos DO Work Phone: [facility]05-19-2025 12:54-0400Body mass index (BMI) [Ratio]35.03 kg/m2Alexander Yucarls DO Work Phone: [facility]05-19-2025 12:54-0400Body rsqkgqcakid30.4 [degF]Alexander Yoos DO Work Phone: [facility] [employer] Bxbrym23-81-0152 12:54-0400Body lkkxil30.39 kgAlexander Yoos DO Work Phone: [facility]05-19-2025 12:54-0400Diastolic blood gqsppkyo51 mm[Hg]Alexander Yoos DO Work Phone: [facility]05-19-2025 12:54-0400Heart rate 69 /minAlexander Yuhas DO Work Phone: [facility] [employer] Nnhwgj97-41-0127 12:54-0400 Respiratory rate18 /minJoandrzej Yucarls DO Work Phone: [facility]05-19-2025 12:54-2651AiI0% (BldA) [Mass fraction]98 %Alexander Yoos DO Work Phone: [facility]05-19-2025 12:54-0400Systolic blood mm[Hg]Alexander Chen DO Work Phone: [facility]05-05-2025 13:32-0400Body crtwno198.1 cmFeleni Shepherd HOTEL RECREATIONAL FACILITIES MANAGER Work Phone: [facility] HospitalGwtpiejstg91-56-0141 13:32-0400Body mass index (BMI) [Ratio]36.28 kg/w9ZjpmqpmOlimpia Stanleychelseadamaris HOTEL RECREATIONAL FACILITIES MANAGER Work Phone: [facility] HospitalStgessnhpb90-12-9009 13:32-0400Body akrmxa25.88 kgFeleni Stanleychelseadamaris HOTEL RECREATIONAL FACILITIES MANAGER Work Phone: [facility] HospitalJxshecyaeh77-07-1234 13:32-0400Diastolic blood uyrdhvew01 mm[Hg]Olimpia Cora HOTEL RECREATIONAL FACILITIES MANAGER Work Phone: [facility] HospitalFdlldyhhmj59-51-2626 13:32-0400Systolic blood tmjqfmhu789 mm[Hg]Olimpia Cora HOTEL RECREATIONAL FACILITIES MANAGER Work Phone: [facility] HospitalPxehfgcido92-58-1217 10:31-0500Body .1 cmMauro Levin MD Work Phone: [facility] HospitalYelxbihsnn63-41-9276 10:31-0500Body mass index (BMI) [Ratio]35.28 kg/l4MorhdxxMauro Levin MD Work Phone: [facility] HospitalRncelbjbug98-60-7300 10:31-0500Body sofxkb76.16 kgMauro Levin MD Work Phone: [facility] HospitalJpxnmfbpsl80-51-8466 11:08-0500Blood Pressure LocationANDRE MCNEIL [facility]12-17-2024 11:08-0500Body disckcazfof000.04 [degF]ANDRE MCNEIL [facility]12-17-2024 11:08-0500Diastolic blood ngljmpuj08 mm[Hg]ANDRE MCNEIL [facility]12-17-2024 11:08-0500Heart rate58 /minJENNIFER GERRY [facility]12-17-2024 11:08-0500Systolic blood osfdqkfy983 mm[Hg]ANDRE GERRY [facility]10-14-2024 14:08-0400Body mass index (BMI) [Ratio]34.95 kg/b2Lnkbt Noa DO Work Phone: [facility] HospitalOnrptiqwtx92-77-4888 14:08-0400Body zudkke03.25 kgCorey Noa DO Work Phone: [facility] HospitalRvogzpnvtj07-29-0509 14:08-0400Diastolic blood ccgqucaf22 mm[Hg]Kobi Noa DO Work Phone: [facility] HospitalJnvlbwjslm56-20-5279 14:08-0400Systolic blood egnnolfl936 mm[Hg]Kobi Noa DO Work Phone: [facility] HospitalCdejrnidvt77-99-3937 12:58-0500Blood Pressure LocationJENNIFER GERRY [facility]12-13-2022 12:58-0500Diastolic blood reydpxqe48 mm[Hg]ANDRE GERRY [facility]12-13-2022 12:58-0500Heart rate77 /minJENNIFER GERRY [facility]12-13-2022 12:58-0500Respiratory rate16 /minJENNIFER GERRY [facility]12-13-2022 12:58-0500Systolic blood vemlkxof227 mm[Hg]ANDRE MCNEIL [facility]03-01-2018 07:27-0500Body Ufcztchmlxb05.9 [degF]Lina [facility] 11-11-2017 07:27-0500BP Eafirbahq31 mm[Hg]Lina XsdyzFjqsLrfuvk47-28-1003 07:27-0500BP Crpwnyuf200 mm[Hg]Lina IhzvbAtnlBsslce28-43-3592 07:27-0500Pulse (Heart Rate)57 /minLina WqrkbAqrpGeibon58-56-7824 07:27-0500Pulse Pftchmjt10 % Lina LxmjeJeiwNjfyxt15-55-9624 07:27-0500Respiratory Rate15 /minLina Elizabeth XfbuRvxsma33-24-7601 06:26-0500BMI (Body Mass Index)36.32 kg/q4Mjbbrq [facility] HospitalKuooUxmuti78-07-8659 06:26-5314Mnzvxz013.1 cmTuniversity of south al[facility] children[facility] women's hospitaljerome WtrwjOulzGslecz45-74-3828 06:26-4436Xctbhd83 kgeric HrjyrGnrpMzcseh66-15-0866 12:12-0500BMI (Body Mass Index)35.59 kg/j8Mycbx [facility] Work Phone: 1(552) 879-706202-08-2018 12:12-0500Body Xravrkblrtk47.7 [degF]Rossana [facility] Work Phone: 1(261) 779-140702-08-2018 12:12-0500BP Qzraonihv53 mm[Hg]Rossana [facility] Work Phone: 1(948) 778-730802-08-2018 12:12-0500BP Cjfanurz679 mm[Hg]Rossana [facility] Work Phone: 1(521) 979-110702-08-2018 12:12-1685Ovccmx184.1 Abel [facility] Work Phone: 1(488) 160-304102-08-2018 12:12-0500Pulse (Heart Rate)88 /minRossana [facility] Work Phone: 1(427) 771-271002-08-2018 12:Pulse Patbcgoa17 %Rossana [facility] Work Phone: 1(819) 853-296302-08-2018 12:0948Yrccfz39 kgRossana [facility] Work Phone: Encounters Encounter DateEncounter TypeCare ProviderFacilityStart: 99-98-8369hmnfyimjib ANDRE E PERRYFacility:[facility] BellevueStart: 07-20-2025 End: 63-54-8473ensdrhhszmSLONGU F KINDLFacility:[facility] HospitalStart: 07-19-2025 End: 32-22-9612betrdkcqgvLYODWXIVA PHARMACY MEDICATION MANAGEMENTBarberton Citizens Hospitaltart: 07-19-2025 End: 92-04-5617Tlikyf-up encounterPm[address] - Pharmacy Medication ManagementComment on above:intermediate (current) use of 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 (Primary Dx)Start: 07-17-2025 End: 87-77-4028CoiftvIizb L Yuhas DO Work Phone: [facility] Family MedicineComment on above:Cervical spondylosis with radiculopathyStart: 07-13-2025 End: 32-62-7011Vokevb-up encounterPm[address] - Pharmacy Medication ManagementComment on above:intermediate (current) use of 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 (Primary Dx)Start: 07-13-2025 End: 18-41-8807hwcxuofylnGDVVZBPSR PHARMACY MEDICATION MANAGEMENTBarberton Citizens Hospitaltart: 26-26-1582adhkpatufkWutnzns Garett AuxierFacility:[facility] HospitalStart: 07-12-2025 End: 51-09-2622tfgcdukswhErxaiiu Garett AuxierFacility:[facility] HospitalStart: 07-12-2025 End: 34-47-4733htjfwkgmdnFqyadef Mary Nieves CORNICE MAKER-CNPFacility:[facility] Centertart: 07-09-2025 End: 32-42-0478NxbrzcMsgj L Yuhas DO Work Phone: [facility] - Family MedicineComment on above:Hypothyroidism, unspecified typeStart: 07-03-2025 End: 69-80-3070Zpwhve flowsheetCorey Noa DO Work Phone: [facility] OBGYNStart: 07-03-2025 End: 38-43-8888Ggjgyy flowsheetCorey Noa DO Work Phone: [facility] Juve OBGYNStart: 07-03-2025 End: 76-62-3972Vwlpckwmy Result EncounterCorey Noa DO Work Phone: noms External Department UnsolicitedStart: 07-03-2025 End: 69-38-1439yvpyjvpyseUPKPPeconic Bay Medical Center Ambulatory PPGStart: 07-03-2025 End: 39-18-1874Ckutkrj encounter procedureJoandrzej Chen DO Work Phone: [facility] - Family MedicineComment on above:Encounter for subsequent annual wellness visit (AWV) in Medicare patient (Primary Dx); Encounter for screening mammogram for malignant neoplasm of breastStart: 07-03-2025 End: 27-22-8030Ctxwsvys preventive med est patient 40-64yrsCorey Noa DO Work Phone: [facility] Juve OBGYNComment on above:Well woman exam with routine gynecological exam; Breast cancer screening by mammogram; Postmenopausal stateStart: 07-03-2025 End: 87-43-0945Kiabaj-up encounter[address] - Pharmacy Medication ManagementComment on above:intermediate (current) use of 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 (Primary Dx)Start: 07-03-2025 End: 24-46-4621ugsbznqjhpOOFVG FAZIONot AvailableStart: 07-02-2025 End: 78-27-0296RhfohwOfha L Yuhas DO Work Phone: [facility] - Family MedicineComment on above:Mixed hyperlipidemiaStart: 06-29-2025 End: 59-63-6574Tleituxzsc and management of inpatientJOANDRZEJ Sorto [facility] Hospitaltart: 06-15-2025 End: 83-62-0654Brrousvdd encounterSt. 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 (Primary Dx)Start: 06-07-2025 End: 26-02-7979oyluytkfogPCCIMWWBH PHARMACY MEDICATION MANAGEMENTBarberton Citizens Hospitaltart: 05-29-2025 End: 64-42-3754Rkwdyrccv encounterCatUC [facility] - Pharmacy Medication ManagementStart: 05-24-2025 End: 17-60-3790cjuwbgmdirBfnguot M AuxierFacility:[facility] Hospitaltart: 05-24-2025 End: 46-69-4697spuijzrggiOfak Leonard Yuhas DOFacility:[facility] Centertart: 05-08-2025 End: 93-13-6364EkygldNstb L Yuhanikhil BATEMAN Work Phone: [facility] - Family MedicineComment on above:Gastroesophageal reflux disease, unspecified whether esophagitis presentStart: 05-02-2025 End: 28-54-4763ZetmxjUcwabsw W Bauer MD Work Phone: JANISMS Milady NeurologyComment on above:Migraine without aura and without status migrainosus, not intractableStart: 04-20-2025 End: 69-98-4373Wftuvw-up encounter[address] - Pharmacy Medication ManagementComment on above:intermediate (current) use of 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 (Primary Dx)Start: 04-20-2025 End: 04-13-6172utprfrpgktGFVYKUAAW PHARMACY MEDICATION MANAGEMENTBarberton Citizens Hospitaltart: 04-13-2025 End: 06-39-5608CjthqqDczs L Yuhas DO Work Phone: [facility] - Family MedicineComment on above:Essential hypertensionStart: 04-04-2025 End: 10-16-4310EwhjptKzppdjq W Bauer MD Work Phone: n[facility] SWS NEURComment on above:Migraine without aura and without status migrainosus, not intractableStart: 03-23-2025 End: 28-15-3859Uxtbad Cheyenne Levin MD Work Phone: noms BM NEUROLOGYStart: 03-23-2025 End: 27-51-0184Kzlcemjulian Levin MD Work Phone: noms NEUROLOGYStart: 03-23-2025 End: 84-74-6128Lzniqc outpatient visit 25 minutesMauro Levin MD Work Phone: [facility] SWS NEURComment on above:Migraine without aura and without status migrainosus, not intractable (Primary Dx)Start: 03-23-2025 End: 73-33-9900yttcgrilboKEHZKMX W BAUERNot AvailableStart: 03-23-2025 End: 63-87-1114qebkgopbfmNVQWCMKBD PHARMACY MEDICATION MANAGEMENTBarberton Citizens Hospitaltart: 03-23-2025 End: 44-80-1260Masmyr-up [address] - Pharmacy Medication ManagementComment on above: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 (Primary Dx); Lupus anticoagulant disorderStart: 03-06-2025 End: 52-67-1489xlpbenjkppHQTHQ BROWNBarberton Citizens Hospitaltart: 03-06-2025 End: 09-58-2330Jzljguwyt therapyAlexander Chen DO Work Phone: [facility] - Diabetes and Nutrition EducationComment on above:Type 2 diabetes mellitus without complication, without long-term current use of insulin ([facility])Start: 03-04-2025 End: 55-08-2940ebzyzctorvFxjkgjgq Ann HackenburgFacility:[facility] Centertart: 02-16-2025 End: 78-96-2954Vzqlqs-up encounterPm[address] - Pharmacy Medication ManagementComment on above:intermediate (current) use of 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 (Primary Dx)Start: 02-16-2025 End: 95-94-6889eyjinyiezhJXQKKARMcKay-Dee Hospital Centertart: 02-08-2025 End: 84-12-0434UsggriRzdk L Yuhas DO Work Phone: [facility] - Family MedicineComment on above:Mild persistent asthma without complicationStart: 01-31-2025 End: 02-98-7155Ewruoumck encounterJoandrzej Chen DO Work Phone: 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; Mixed hyperlipidemia; IFG (impaired fasting glucose); Obesity, morbid ([facility]); Bipolar II disorder ([facility]); Chronic deep vein thrombosis (DVT) of proximal vein of lower extremity, unspecified laterality ([facility]); Systemic lupus erythematosus ([facility]); Lupus anticoagulant disorder; Mild persistent asthma without complication; Gastroesophageal reflux disease, unspecified whether esophagitis present; Special screening for malignant neoplasm of colonStart: 01-29-2025 End: 74-89-3739kuwvqqgtldLJWESmallpox Hospital Ambulatory PPGStart: 01-22-2025 End: 90-90-0732MeiroqOsvz L Yuhas DO Work Phone: [facility] - Family MedicineComment on above:Gastroesophageal reflux disease, unspecified whether esophagitis presentStart: 01-19-2025 End: 84-18-1613Gepkuj-up encounter[address] - Pharmacy Medication ManagementComment on above:intermediate (current) use of 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 (Primary Dx)Start: 01-19-2025 End: 20-45-0359mneiuiaixvAXPDTZZKN PHARMACY MEDICATION MANAGEMENTBarberton Citizens Hospitaltart: 01-15-2025 End: 53-09-0438Qswwhb flowsheetFebarrettia Joseph Shepherd HOTEL RECREATIONAL FACILITIES MANAGER Work Phone: noms BM NEUROLOGYStart: 01-15-2025 End: 64-86-8616Pofcol flowsheetFelicia C Windnagel HOTEL RECREATIONAL FACILITIES MANAGER Work Phone: noms BM NEUROLOGYStart: 01-15-2025 End: 33-05-2456Dbiohe outpatient visit 25 minutesFelicia Joseph Shepherd HOTEL RECREATIONAL FACILITIES MANAGER Work Phone: noms SWS NEURComment on above:Migraine without aura and without status migrainosus, not intractable (CMS/HCC) (Primary Dx)Start: 01-15-2025 End: 89-65-1838WuhjuiWgbk L Yuhas DO Work Phone: [facility] - Family MedicineComment on above:Essential hypertensionStart: 01-03-2025 End: 54-72-8406DspvjjLthb L Yuhas DO Work Phone: [facility] - Family MedicineComment on above:Gastroesophageal reflux disease, unspecified whether esophagitis present; Cervical spondylosis with radiculopathyStart: 01-01-2025 End: 85-62-2679WpdsofIbej L Yuhas DO Work Phone: [facility] - Family MedicineComment on above:Mixed hyperlipidemiaStart: 12-26-2024 End: 09-79-6876NrqyedWvps L Yuhas DO Work Phone: [facility] - Family MedicineComment on above:Mixed hyperlipidemiaStart: 12-25-2024 End: 97-36-8497NqabrcLfko L Yuhas DO Work Phone: [facility] - Family MedicineComment on above:Mild persistent asthma without complicationStart: 12-22-2024 End: 87-69-8954Xqfidp-up encounter[address] - Pharmacy Medication ManagementComment on above: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 (Primary Dx)Start: 12-22-2024 End: 51-89-9236ttwusquishAKFXUCZVS PHARMACY MEDICATION MANAGEMENTBarberton Citizens Hospitaltart: 11-24-2024 End: 82-74-3290Rtbvmx-up encounter[address] - Pharmacy Medication ManagementComment on above: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 (Primary Dx)Start: 11-24-2024 End: 24-02-6695gwndvbtajzJJRYCJGJM PHARMACY MEDICATION MANAGEMENTBarberton Citizens Hospitaltart: 11-08-2024 End: 06-95-0818EfqpxjQytb L Yuhas DO Work Phone: [facility] Internal Medicine - Family MedicineComment on above:Mild persistent asthma without complicationStart: 10-27-2024 End: 47-52-9981Owjruf-up encounter[address] - Pharmacy Medication ManagementComment on above:intermediate (current) use of 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 (Primary Dx)Start: 10-27-2024 End: 78-71-0799teizlgzxdjJSKPXCJIV PHARMACY MEDICATION MANAGEMENTBarberton Citizens Hospitaltart: 10-18-2024 End: 74-14-6101KnpirlHqwz L Yuhas DO Work Phone: [facility] Internal Medicine - Family MedicineComment on above:Cervical spondylosis with radiculopathy; Gastroesophageal reflux disease, unspecified whether esophagitis presentStart: 10-03-2024 End: 80-47-5211JuqhksEsif L Yuhas DO Work Phone: [facility] Internal Medicine - Family MedicineComment on above:Gastroesophageal reflux disease, unspecified whether esophagitis presentStart: 09-29-2024 End: 39-39-0941Izodmx-up encounter[address] - [place] Medication Therapy ManagementComment on above:intermediate (current) use of 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 (Primary Dx)Start: 09-29-2024 End: 46-51-2034wiesnwllzrKOXQOAZTA PHARMACY MEDICATION MANAGEMENTSelect [facility] HospitalStart: 09-22-2024 End: 52-05-0962Tbmzhyjimenez Levin MD Work Phone: noms NEUROLOGYStart: 09-22-2024 End: 70-84-0852Mcqkwdjulian Levin MD Work Phone: noms NEUROLOGYStart: 09-22-2024 End: 90-45-8874Xhnkix outpatient visit 25 minutesMauro Levin MD Work Phone: noms SWS NEURComment on above:Migraine without aura and without status migrainosus, not intractable (CMS/HCC)Start: 09-22-2024 End: 22-42-6440mwrlnxokceQUBGCOH W BAUERNot AvailableStart: 09-20-2024 End: 16-99-7056tlmkzlxdlaSCZZRGLIY PHARMACY MEDICATION MANAGEMENTBarberton Citizens Hospitaltart: 09-20-2024 End: 44-28-8684Cqdlxw-up encounterPm[address] Medication Therapy ManagementComment on above:intermediate (current) use of 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 (Primary Dx)Start: 09-15-2024 End: 94-91-3749vxjurnyfrbMNNU L [facility] Hospitaltart: 09-01-2024 End: 67-63-7089Ljxane-up encounterPm[address] Medication Therapy ManagementComment on above:intermediate (current) use of 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 (Primary Dx)Start: 09-01-2024 End: 89-45-0102wfdlchxvauUDRCSSNIF PHARMACY MEDICATION MANAGEMENTSelect [facility] HospitalStart: 08-29-2024 End: 63-56-1619anpanmiihsZOGZBFTP E PERRYFacility:EU BellevueStart: 08-29-2024 End: 22-58-4354Rkfxlha encounter procedureJENNIFER E GERRY [facility] Juve start: 08-24-2024 End: 09-48-1636hwofbyehlfUcnz ProviderFacility:[facility] Hospitaltart: 08-24-2024 End: 95-74-8198qqqpbmfzluDthaAarti Chen DOFacility:PM [facility] Centertart: 08-18-2024 End: 95-38-3054Iegsfzbch Result EncounterCorey Noa DO Work Phone: noms External Department UnsolicitedStart: 08-18-2024 End: 71-79-5676Nuqemuuwo Result EncounterCorey Noa DO Work Phone: noms External Department UnsolicitedStart: 08-11-2024 End: 17-26-9704yppujwwgseConx Yuunitypoint health-allen hospitalFacility:[facility] Start: 08-04-2024 End: 32-46-7146fygjydggogDURZL SERVICESelect [facility], [facility] HospitalStart: 07-21-2024 End: 42-06-9086ostjtshudtWYJYJFormerly [facility] HospitalStart: 07-20-2024 End: 47-56-9159myppqltucxMUFN L [facility] HospitalStart: 07-20-2024 End: 45-77-7314gbbkzrxefpNGQU [facility] PPGStart: 06-26-2024 End: 96-79-3358Rupyhy flowsheetCorey Noa DO Work Phone: noms BCP OBStart: 06-26-2024 End: 44-76-7514Nwkgqk flowsheetCorey Noa DO Work Phone: NOMS BCP OBStart: 06-26-2024 End: 40-01-1392Wqvgatyth Result EncounterCorey Noa DO Work Phone: noms External Department UnsolicitedStart: 06-26-2024 End: 23-77-0792Rxgjybn encounter procedureCorey Noa DO Work Phone: noms BCP OBComment on above:Well woman exam with routine gynecological exam; Postmenopausal state; Breast cancer screening by mammogramStart: 06-15-2024 End: 84-71-9846Ccxbetsro encounterMauro Levin MD Work Phone: noms SWS NEURStart: 06-07-2024 End: 73-59-8778LlmuaiGaqnvqq W Bauer MD Work Phone: noms SWS NEURComment on above:Lumbar radiculopathy Start: 05-26-2024 End: 05-73-0069Qqduoo flowsheetMauro Levin MD Work Phone: noms BM NEUROLOGYStart: 05-26-2024 End: 54-79-7527Kazqls flowsFrancisco J Levin MD Work Phone: noms BM NEUROLOGYStart: 05-26-2024 End: 22-58-9490Arslgs outpatient visit 25 minutesBrejohn Levin MD Work Phone: noms SWS NEURComment on above:Migraine without aura and without status migrainosus, not intractable (CMS/HCC)Start: 02-25-2024 End: 14-67-8707vgkcbjcsjkBG Alexander Chen Work Phone: [facility] Work Phone: Start: 02-25-2024 End: 05-78-1612Fgclhqy encounter procedureDO Alexander Chen Work Phone: [facility] [place] Work Phone: Start: 12-09-2023 End: 53-46-1982gckhigvzapRZBI L [facility]tart: 10-20-2023 End: 20-96-6832Ffq Drop Heather Christopher [facility] Start: 10-20-2023 End: 18-71-8282ehbgjktvkwLrxxl M. ShaynaeFacility:FTMCStart: 10-04-2023 End: 94-87-0786glpsexezpnSZ Alexander Chen Work Phone: [facility] Work Phone: Start: 10-04-2023 End: 94-20-9209Jaglzbn encounter procedureDO Alexander Chen Work Phone: [facility] [place] Work Phone: Start: 09-28-2023 End: 82-03-6875idnelekylwSRQIAIPR E PERRYFacility:EU ueStart: 09-28-2023 End: 38-12-3319Yioelnd encounter procedureJENNIFER E GERRY [facility] start: 09-24-2023 End: 25-15-2009xjexeanrqcOyzwos X OrzechFacility:FTMCStart: 09-24-2023 End: 78-13-4171Cue Drop offAurora X Orzech [facility] Start: 09-24-2023 End: 86-20-6177wlwtjgjlmpEYSHWVFL E PERRYFacility:EU [place]vueStart: 09-24-2023 End: 82-59-9135Lgtupkp encounter procedureJENNIFER E GERRY [facility] start: 09-14-2023 End: 62-78-9069Cqx Drop offJENNIFER E GERRY [facility] Start: 09-14-2023 End: 64-64-2838vhxxjwpznaIDBLWAFX E PERRYFacility:FTMCStart: 03-19-2023 End: 60-64-0539xqqkeejomdNU Alexander April Work Phone: [facility] Work Phone: Start: 03-19-2023 End: 36-35-1418Nmppgvm encounter procedureDO Alexander Chen Work Phone: [facility] [place] Work Phone: Start: 08-25-2022 End: 89-25-7282Cfdgjnx encounter procedureJENNIFER E GERRY [facility] start: 08-07-2022 End: 84-23-6435vzmgciyiurNQ ТАТЬЯНА JONES Facility:Y4Xocuq: 06-16-2022 End: 43-46-3517lbzhbcnfycCB KOBI FAZIOFacility:U0Sgjnc: 06-05-2022 End: 63-12-0115fwkagfxiueLG KOBI FAZIOFacility:U2Ktaar: 12-10-2021 End: 68-62-0379fwaffxjfgzRTVFF JIANLunacynthia Caalfin HospitalStart: 12-10-2021 End: 13-84-6889Pcdamrfnwr hospital visit by Naomy Chen Work Phone: M[facility] LaboratoryStart: 08-30-2018 End: 19-45-4843Craayvgipx and management of inpatientTHOMAS ROSSANA [facility] HospitalStart: 08-16-2018 End: 07-90-0521Oaszvun encounter procedureTHOMAS ROSSANA [facility] HospitalStart: 76-53-9579Pdrctexac for other preprocedural examinationTHOMAS Diallo [facility] HospitalStart: 56-97-9582Lpzmkhwiv for preprocedural cardiovascular examinationTHOMAS Diallo [facility] HospitalStart: 08-16-2018 End: 92-03-1333Hfelnme encounter procedureTHOMAS ROSSANA [facility] HospitalStart: 02-23-2018 End: 00-82-5798EqjvmzcfbkBFBPCGC MARIE GREENERiedwardkush [facility] Indianapolistart: 11-09-2017 End: 35-23-4879Cnkkyivbmr and management of inpatientTHOMAS ROSSANA [facility] HospitalStart: 11-09-2017 End: 64-90-6073Jfwgdldvzn and management of inpatientThomas Rossana Elizabeth Work Phone: [facility] [place] 430Start: 10-21-2017 End: 42-76-8532Jcpgqis encounter procedureTHOMAS ROSSANA [facility] HospitalStart: 81-01-2798Thntwhw encounterThomas Rossana Elizabeth Work Phone: [facility] Preadmission Testing Encounter for other preprocedural examinationTHOMAS [facility] HospitalEncounter for preprocedural cardiovascular examinationTHOMAS [facility] Procedures DateProcedureProcedure DetailPerforming ClinicianStart: 03-17-8846Nuickhuuudd timePromedica [facility]acy Medication [facility] Work Phone: [phone]: 45-24-8391Dfxkpxxggnq timePromedica Pharmacy Medication Management Work Phone: Start: 71-06-7051POT,APTIMA HPV,AGE GDLNCorey Noa DO Work Phone: Start: 66-42-8418Nmdjgveltmj timePromedica Pharmacy Medication Management Work Phone: Start: 97-09-5761Bfulf depression screening assessment Alexander Chen DO Work Phone: Start: 86-66-9951Upkpgxauipr timePromedica Pharmacy Medication Management Work Phone: Start: 56-75-1916Pkalmgcownm timePromedica Pharmacy Medication Management Work Phone: Start: 98-89-2981Atmuijearqo timePromedica Pharmacy Medication Management Work Phone: Start: 10-75-3971PRN REFERRAL TO DIABETIC EDUCATION Alexander Chen DO Work Phone: Start: 03-78-6742Lxfrnpghvbl timePromedica Pharmacy Medication Management Work Phone: Start: 64-76-5360Xthzfkosydzfi metabolic panelAlexander Chen DO Work Phone: Start: 84-92-7664Oognc panelJoandrzej Chen DO Work Phone: Start: 17-25-9380Bckfo depression screening assessment Alexander Chen DO Work Phone: Start: 39-82-4373Panvysadrmr timePromedica Pharmacy Medication Management Work Phone: Start: 47-00-2551Qsnccmavccv timePromedica Pharmacy Medication Management Work Phone: Start: 77-41-1689Jfcsjsvshql timePromedica Pharmacy Medication Management Work Phone: Start: 17-07-1958Trukjcdubzl timePromedica Pharmacy Medication Management Work Phone: Start: 55-59-9940Lttiyquvmnz timeJobst Service Work Phone: Start: 53-39-3895Gfeqjqmdyqq timeJobst Service Work Phone: Start: 08-65-2717Emottqxkbop timeJobst Service Work Phone: Start: 98-16-1653UA TOMOSYNTHESIS SCREENING BICorey Noa DO Work Phone: Start: 75-55-6337VxhpmhrhgwsYgvbtgd Bauer MD Work Phone: Start: 34-16-4679Yfhxv depression screening assessment Pm 2Start: 77-58-4931JLQ,APTIMA HPV,AGE GDLNCorey Noa DO Work Phone: Start: 93-91-6475JjhbruamkvlEpckdtq Bauer MD Work Phone: Start: 00-45-3819Jpscabsajhwx bilateral oophorectomy ANDRE MCNEIL Start: 69-24-4127Yurryxbdpdqjy of internal noseANDRE MCNEIL Start: 92-38-4702Siyftodludnmkgvvy with dilation of urethral strictureANDRE MCNEIL Start: 11-09-2017 End: 10-77-5229XTBH TOTAL HIP ARTHROPLASTY ANTERIOR APPROACHThomas Rossana Elizabeth Work Phone: Start: 34-59-0692Heauaqsdhy arthroplasty of the hip ANDRE MCNEIL Start: 75-10-9992Lapcqmuazc of cataractANDRE MCNEIL Start: 23-08-3047Nmlq cava filter (physical object) ANDRE MCNEIL Start: 73-41-5078Eysfcjnred of spineANDRE MCNEIL Start: 48-10-3429Uudbves of operative procedure on knee ANDRE MCNEIL Start: 01-64-4487Hisvepehio, device (physical object) ANDRE MCNEIL Start: 00-97-7269Cpetdika sectionANDRE MCNEIL Plan of Treatment DateCare ActivityDetailAuthorStart: 07-15-2026 End: 29-64-9667Evyiyxs encounter znjmwembh72/02/2026 10:00 AM EST Procedure Visit [facility] [address] [place], [id number] Kobi Latham DO [address] [place] [address] LUDWIG CARRERAtart: 07-09-2026 End: 65-82-8326Gwnbofz encounter bbjbzlyoj14/27/2026 10:00 AM EDT Office Visit [facility] [address] [place] [address] [phone] Physicians Internal Medicine - Family MedicineStart: 33-25-0015Nbapy BMI ScreeningAdult BMI ScreeningHolzer Medical Center – Jackson SystemStart: 07-54-8401Rrhlenzfyk ScreeningDepression ScreeningHolzer Medical Center – Jackson SystemStart: 18-97-6637Nuznqu Use: DiabeticStatin Use: DiabeticHolzer Medical Center – Jackson SystemStart: 76-49-7830Dgfgr BMI ScreeningAdult BMI ScreeningHolzer Medical Center – Jackson SystemStart: 43-56-5159Evqcdnl ScreeningTobacco ScreeningHolzer Medical Center – [facility] System Start: 30-10-1335Hftuqyuhn for malignant neoplasm of colonNOAL HealthcareStart: 77-84-7625Zqyva BMI ScreeningAdult BMI ScreeningHolzer Medical Center – Jackson SystemStart: 71-23-6125Racob BMI ScreeningAdult BMI ScreeningHolzer Medical Center – Jackson SystemStart: 52-75-8170Cxanrrotvu ScreeningDepression ScreeningHolzer Medical Center – [facility] SystemStart: 75-97-9807Pgwbnjn ScreeningTobacco ScreeningHolzer Medical Center – Jackson SystemStart: 58-69-7356Ahxkrh Use: DiabeticStatin Use: DiabeticHolzer Medical Center – Jackson SystemStart: 31-49-6443Fxptltnjm for malignant neoplasm of breastMammogramSt. Lukes [facility] Start: 08-03-2025 End: 58-59-4468Graxuz-up fkqecnqfa50/21/2025 8:30 AM EST Follow Up Anticoagulation [facility] - Pharmacy Medication Management [address] [place] [address] NvpLamutfPeoples Hospital - Pharmacy Medication ManagementStart: 07-27-2025 End: 20-42-7307Zrxxyzb encounter procedureNOMS SWS NEURStart: 59-36-5692Ymznx BMI ScreeningAdult BMI ScreeningHolzer Medical Center – Jackson SystemStart: 07-20-2025 Depression ScreeningDepression ScreeningHolzer Medical Center – Jackson SystemStart: 07-20-2025 Tobacco ScreeningTobacco ScreeningHolzer Medical Center – Jackson SystemStart: 07-19-2025 End: 90-73-5453Eynoks-up nkocbphjo87/06/2025 10:30 AM EST Follow Up Anticoagulation [facility] - Pharmacy Medication Management [address] [place] [address] KwyZelzdePeoples Hospital - Pharmacy Medication ManagementStart: 07-13-2025 End: 77-92-9100Ewmkts-up qlopexkjx11/31/2025 11:45 AM EDT Follow Up Anticoagulation [facility] - Pharmacy Medication Management [address] [place] [address] EzpAulxexPeoples Hospital - Pharmacy Medication ManagementStart: 07-03-2025 End: 09-80-6278LIA Breast - bilateral screeningMammography screening bilateral with CAD Imaging Routine Encounter for screening mammogram for malignant neoplasm of breast Expected: 07/03/2025, Expires: 07/03/2026[facility] Work Phone: Comment on above:Expected: 07/03/2025, Expires: 07/03/2026Start: 07-03-2025 End: 52-40-2508VDA Skeletal system Views for bone densityDEXA bone density Imaging Routine Postmenopausal state Expected: 07/03/2025 (Approximate), Expires:07/03/2026NOMS HealthcareComment on above:Expected: 07/03/2025 (Approximate), Expires: 07/03/2026Start: 07-03-2025 End: 73-92-2640VG Breast - bilateral ScreeningBilateral screening mammogram Imaging Routine Breast cancer screening by mammogram Expected: 07/03/2025, Expires: 09/02/2026NOAL Healthcare Work Phone: comment on above:Expected: 07/03/2025, Expires: 09/02/2026Start: 07-03-2025 End: 18-83-0750Nvffzhm encounter procedureNOMS BCP OBComment on above:Arrived Start: 07-03-2025 End: 33-71-6200Tkbtyt-up llttpqwfi63/21/2025 9:00 AM EDT Follow Up Anticoagulation [facility] - Pharmacy Medication Management [address] [place] [address] AyhGuniboPeoples Hospital - Pharmacy Medication ManagementStart: 06-29-2025 End: 03-60-7127Foztwfhlz to same day surgery otbxpt3106/29/2025 1:30 PM EDT - 06/29/2025 2:30 PM EDT Surgery [facility] - Endoscopy [address] [place] [address] Alexander Chen, DO [address] [place] [address] COLONOSCOPY DIAGNOSTIC / SCREENING [G0121 +1 more][facility] - EndoscopyComment on above:COLONOSCOPY DIAGNOSTIC / SCREENING [G0121 +1 more]Start: 06-29-2025 End: 12-74-8257Frjwi ca scrn not hi rsk indCOLONOSCOPY DIAGNOSTIC / SCREENING Screen for colon cancer 06/29/2025 1:30 PM EDTFREMONT ENDOSCOPYStart: 06-29-2025 Subsequent hospital visit by nsyfjhshs56/17/2025 1:30 PM EDT Hospital Encounter [facility]oscopy [address] [place] [address] Alexander Chen, DO [address], [place] [phone] (Work) [facility] - EndoscopyStart: 06-28-2025 End: 01-92-4971xauhldrfdz76/16/2025 4:20 PM EDT Support Visit [facility] - Pre Admit [address] [place] [address] [facility] - Pre AdmitStart: 06-07-2025 End: 52-71-1485Yoopqi-up axwufnwfb45/25/2025 10:30 AM EDT Follow Up Anticoagulation [facility] - Pharmacy Medication Management [address] [place] [address] XmzDilvyuMassena Memorial Hospital - Pharmacy Medication ManagementStart: 06-01-2025 End: 62-29-6652Awtmoq-up fqcsmfwky52/19/2025 8:45 AM EDT Follow Up Anticoagulation [facility] - Pharmacy Medication Management [address] [place] [address] JoaRzrlqlPeoples Hospital - Pharmacy Medication ManagementStart: 37-99-4868SBBGQ-19 Vaccine ( season)COVID-19 Vaccine ( season)[facility] SystemStart: 71-64-3356Zryihixyz vaccinationAtrium Healthtart: 05-09-2025 End: 84-56-5472Nggxklm encounter vhxczvvgo23/27/2025 1:00 PM EDT Office Visit [facility] Internal Medicine - Family Medicine [address] [place] [address] Alexander Chen, [address] [facility] [place], [place] [facility] Internal Medicine - Family MedicineStart: 04-20-2025 End: 00-65-0474Xqjbzm-up /08/2025 8:45 AM EDT Follow Up Anticoagulation [facility] - Pharmacy Medication Management [address] [place] [address] SaoQcwreuPeoples Hospital - Pharmacy Medication ManagementStart: 03-23-2025 End: 46-41-0910Ghlkvla encounter procedureNOMS SWS NEURComment on above:Arrived Start: 03-23-2025 End: 88-00-8060Utdsuq-up /11/2025 9:00 AM EDT Follow Up Anticoagulation [facility] - Pharmacy Medication Management [address] [place] [address] HguFlkhxvPeoples Hospital - Pharmacy Medication ManagementStart: 03-06-2025 End: 15-96-9063Doneuxoiq ozjnway1903/06/2025 1:00 PM EDT Support Visit [facility] - Diabetes and Nutrition Education [address] [place] [address] Alexander Chen, DO [address] [place] [address] Zoe Norris LD [facility] Diabetes and Nutrition EducationStart: 02-16-2025 End: 57-33-6975Mqzvjf-up nbrkatnwf41/06/2025 8:45 AM EDT Follow Up Anticoagulation [facility] Medication Management [address] [place] [address] [phone]. Mary's Medical Center Medication ManagementStart: 01-29-2025 End: 64-11-9274Chudmam encounter /19/2025 1:00 PM EDT Office Visit [facility] Internal Medicine - Family Medicine [address] [place] [address] Alexander Chen, DO [address] [place], [place] [facility] Internal Medicine - Family MedicineStart: 01-19-2025 End: 23-42-3461Dwoesf-up hprfcereu34/09/2025 8:45 AM EDT Follow Up Anticoagulation [facility] Medication Management [address] [place] [address] HndZwwadcPeoples Hospital - Pharmacy Medication ManagementStart: 01-15-2025 End: 87-87-2911Gxiezxa encounter qvnzsxujl05/05/2025 1:00 PM EDT Office Visit [facility] [address] [facility] [address] [place] [address] Olimpia Shepherd, HOTEL RECREATIONAL FACILITIES MANAGER [address], [facility] [address] [place] [address] ArrivedNOMS SWS NEURComment on above: ArrivedStart: 01-05-2025 End: 09-52-3920Ujtdgbv encounter /25/2025 10:30 AM EDT Office Visit [facility] NEUR [address] [address] Mauro Levin MD [address] [place] [address] [facility] NEURStart: 12-22-2024 End: 03-43-9877Vfmuvn-up vhkumdigw13/11/2025 9:15 AM EDT Follow Up Anticoagulation [facility] Medication Management [address] [place] [address] MvxCsqewkSt. Mary's Medical Center Medication ManagementStart: 11-24-2024 End: 20-45-7212Njmsow-up qgaibnurd97/14/2025 9:15 AM EDT Follow Up Anticoagulation [facility] - Pharmacy Medication Management [address] [place] [address] YlzTtiaveSt. Mary's Medical Center Medication ManagementStart: 10-27-2024 End: 34-24-3548Dyfnet-up encounterC[facility] Medication Therapy ManagementStart: 09-29-2024 End: 30-67-5685Idjbcf-up umokdijra28/17/2025 9:00 AM EST Follow Up Anticoagulation [facility] Medication Therapy Management [address] [place] [address] GubSahpofCleveland Clinic [facility] Medication Therapy ManagementStart: 09-22-2024 End: 55-13-5400Cqirjzs encounter hhavznzwh14/10/2025 10:30 AM EST Office Visit [facility] NEUR [address] [address] Mauro Levin MD [address] [place] [id number] ArrivedNOMS SWS NEURComment on above: ArrivedStart: 09-20-2024 End: 10-06-3866Fidgdb-up rrbfumuvf45/08/2025 9:15 AM EST Follow Up [facility]ticoagulation [facility] Medication Therapy Management [address] [place] [place] [address] [facility] [address] [facility] Medication Therapy ManagementStart: 09-15-2024 End: 23-60-3068Ydulbtd encounter zxicsxluk90/03/2025 8:00 AM EST Appointment [facility] - Pulmonary Function [address] [place] [address] Alexander Chen, DO [address] [place] [address] [facility] - Pulmonary FunctionStart: 09-01-2024 End: 91-11-0657Fzxzwyl encounter ygdhksksm63/20/2024 10:10 AM EST Office Visit [facility] [address] [facility] [address] [place] [address] Mauro Levin MD [address] [facility] [address] [id number] [facility] SWS NEURStart: 13-91-9024Rkaamarsr for malignant neoplasm of breastMammogramNOAL HealthcareStart: 06-26-2024 End: 87-83-5587TJ Breast - bilateral ScreeningBilateral screening mammogram Imaging Routine Breast cancer screening by mammogram Expected: 06/26/2024 (Approximate), Expires: 08/26/2025[facility] Work Phone: comment on above:Expected: 06/26/2024 (Approximate), Expires: 08/26/2025Start: 06-26-2024 End: 18-87-3518Yvoofuo encounter procedureNOMS BCP OBComment on above:Arrived Start: 28-94-6179EPRKI-19 Vaccine (6 - 2024-25 season)COVID-19 Vaccine ( season)[facility] [facility] SystemStart: 78-14-2660Enmoionao vaccination Influenza Vaccine (#1)[facility]Start: 06-93-3996Slugkqllb complement [facility]: 99-17-4455Scpnunzaj complement [facility]: 57-88-6036Ivjsjjfmc complement [facility]: 94-01-6912LVF ( or age 60+ yrs) (1 - Risk 60-74 years 1-dose series)RSV ( or age 60+ yrs) (1 - Risk 60-74 years 1-dose series)[facility]: 61-23-4512Mmgkrvnpc vaccinationFlu vaccine (#1)[facility]: 52-84-0830IcufigykllEkgnjpMagruder Hospital PeriopStart: 37-47-9279Aytvsbq stimulating hormone measurementTS testingUc HealthStart: 75-35-1687Pdmatzehi vaccination SEQUENTIAL INFLUENZA VACCINE (#1)[facility] Work Phone: Start: 56-63-3205Cvaqxlhvm for malignant neoplasm of breastBreast cancer screenUc HealthStart: 66-48-4190Knzgbgmk Vaccine (1 of 2) Shingles Vaccine (1 of 2)[facility] HealthStart: 94-89-1296Wanafsbid for malignant neoplasm of colonUc HealthStart: 89-69-4530Jrjjpjbbt for malignant neoplasm of cervixUc HealthStart: 47-44-1255Fkcdckjfw for malignant neoplasm of cervix Pap smearUc HealthStart: 94-95-1219ICkJ,Tdap and Td Vaccines (1 - Tdap) DTaP,Tdap and Td Vaccines (1 - Tdap)[facility]: 1980 DTaP/Tdap/Td vaccine (1 - Tdap)DTaP/Tdap/Td vaccine (1 - Tdap)[facility] HealthStart: 11-92-5159Myivk BMI Follow Up PlanAdult BMI Follow Up PlanHolzer Medical Center [facility] SystemStart: 87-63-2984Ltwmifsj foot examinationDiabetic Foot ExamProOhio State Health Systemtart: 93-33-3090WWV screeningHIV screenUc HealthStart: 17-91-6319Vwbcnnshuc MonitoringDepression MonitoringUc HealthStart: 26-24-2300Ttnxw panelLipid screenUc HealthStart: 92-90-7674OIPAU-19 Vaccine (1)COVID-19 Vaccine (1)[facility] HealthStart: 55-19-5290Ieobjllv screeningDiabetic Ophthalmology ExamProOhio State Health Systemtart: 03-64-8515Rcuycwnya C screening Hepatitis C screenUc HealthStart: 90-53-6959Mkqbverld for malignant neoplasm of colonNOMS HealthcareStart: 28-47-7432ETIACEJGA C SCREENINGHEPATITIS C SCREENINGOhioCleveland Clinic [facility] Work Phone: Start: 78-91-3854Donupwmkk colonoscopyCOLONOSCOPY [facility] Work Phone: Start: 44-90-2876Jobkynnov for malignant neoplasm of cervixPAP SMEAROhMercy Health Defiance Hospital Work Phone: Start: 29-28-6822Qelivnz vaccinationTETANUS EVERY 10 YROhMercy Health Defiance Hospital Work Phone: End: 37-75-2969UeyrfzzggmiJovbpbpgilj GI Routine Special screening for malignant neoplasm of colon 1 Occurrences starting 01/29/2025 until 01/29/2026[facility]Comment on above:1 Occurrences starting 01/29/2025 until 01/29/2026 ColonoscopyCOLONOSCOPY DIAGNOSTIC / SCREENING Personal history of adenomatous and serrated colon polypsProSelect Medical Specialty Hospital - CincinnatiComplement C3 [Mass/volume] in Serum or [facility] HospitalComplement C3 [Mass/volume] in Serum or [facility] HospitalComplement C3 [Mass/volume] in Serum or [facility] HospitalComplement C4 [Mass/volume] in Serum or [facility] HospitalComplement C4 [Mass/volume] in Serum or [facility] HospitalComplement C4 [Mass/volume] in Serum or [facility] HospitalECG 12 LeadECG 12 Lead Routine Pre-op exam Ordered: 10/21/2017[facility] Work Phone: [phone] A1c Routine 10/21/2017 12:20 PM EST [facility] Work Phone: End: 82-06-3379Xdfgfnjqiw A1c/Hemoglobin.total in BloodHemoglobin A1c Lab Routine IFG (impaired fasting glucose) 1 Occurrences starting 01/29/2025 until 01/29/2026[facility] Work Phone: Comment on above:1 Occurrences starting 01/29/2025 until 01/29/2026Hemoglobin A1c/Hemoglobin.total in BloodHemoglobin A1c Lab Routine IFG (impaired fasting glucose) 01/29/2025 1:50 PM [facility] End: 12-77-6251Mcido [facility] Work Phone: Comment on above:Once for 1 Occurrences starting 12/10/2021 until 12/10/2021Nicotine and Metabolites, BloodNicotine and Metabolites, Blood Routine 10/21/2017 12:20 PM [employer] Work Phone: THIN PREP TIS PAP AND HR HPV DNATHIN PREP TIS PAP AND HR HPV DNA Pathology and Cytology Routine Well woman exam with routine gynecol ogical exam Ordered: 06/26/2024[facility] HealthcareComment on above:Ordered: 06/26/2024THIN PREP TIS PAP AND HR HPV DNATHIN PREP TIS PAP AND HR HPV DNA Pathology and Cytology Routine Well woman exam with routine gynecological exam Ordered: 07/03/2025[facility] HealthcareComment on above:Ordered: 07/03/2025Vitamin D, Total, 25-OHVitamin D, Total, 25-OH Routine 10/21/2017 12:20 PM [employer] Work Phone: Immunizations Immunization DateImmunizationNotesCare RzikixkyBqxnohcd45-94-8392Ttujhkqn trivalent influenza vaccine, adjuvanted, preservative free[address]11-07-2024influenza virus vaccine, unspecified formulation[address]11-10-2023influenza virus vaccine, unspecified formulationJENNIFER GERRY [facility]11-10-2023influenza, injectable, quadrivalent, preservative freePmh 2 [facility] Work Phone: [phone]-ShH-4 (COVID-19) mRNA-1273 vaccine ANDRE GERRY [facility]05-04-2021SARS-CoV-2 (COVID-19) mRNA-1273 vaccineJENNIFER GERRY [facility] HospitalComment on above:Result Comment: 2022-08-25: [id number]-22, mRNA, LNP-S, PF, 100mcg/0.5mL DosePmh [address] [place], [place] [address]85204-08-2021 SARS-CoV-2 (COVID-19) mRNA-1273 vaccineJENNIFER GERRY [facility]04-07-2021COVID-19, mRNA, LNP-S, PF, 100mcg/0.5mL DosePmh [address] [place], [place] [address]Btfpkh74-67-0233khpcfawuz virus vaccine, unspecified formulationJENNIFER GERRY [facility]09-22-2020influenza virus vaccine, unspecified formulationJENNIFER GERRY [facility]09-22-2020influenza, seasonal, injectablePmh [address] [place] [address] 32-55-9534jjefdhrft, seasonal, injectablePmh [address] [place], [place] 0485210-15-2019 zoster vaccine recombinantJENNIFER GERRY [facility]08-28-2019influenza, injectable, quadrivalent, preservative freePmh 2 [facility]08-13-2019zoster vaccine recombinantJENNIFER GERRY [facility]10-14-2018influenza virus vaccine, unspecified formulationJENNIFER GERRY [facility]10-14-2018influenza, injectable, quadrivalent, preservative freePmh 2 [facility] ColumbusHaeghs96-21-4827ltgcjxfib virus vaccine, unspecified formulationJENNIFER GERRY [facility]10-01-2018influenza, injectable, quadrivalent, contains preservativePmh [address] [place], [place] [address]Qbdguw98-89-5950axclrsvhxbza conjugate vaccine, 13 valent ANDRE GERRY [facility]10-02-2017influenza virus vaccine, unspecified formulationJENNIFER GERRY [facility]10-02-2017influenza, seasonal, injectable, preservative freePmh 2 [facility] ColumbusJlvfus77-11-4542cyljbmhvi virus vaccine, unspecified formulationPmh [address] [place], [place] [address]Ayvein83-24-9644mfkbizbza, seasonal, injectable, preservative freePmh [address] [place] [address] Payers DatePayer CategoryPayerPolicy [id number] 2021 [employer] of [employer] ( and others)[id number] of Defense ( and others)1.2.840.352045.1.13.693.2.7.3.577106.32410-34-5316DOJNXBY () 1.2.840.361414.1.13.693.2.7.9.089068.578671.315 [id number] 2.16.840.1.128983.3.249.13 2004Medicare 1.2.840.977417.1.13.693.2.7.3.225[id number] 2.16840.1.466940.3.57[id number] 2.16840.1.304863.3.579.2.80464-04-3036Brqasgy96648531 2.16840.1.566480.3.57[id number] 2.16840.1.160713.3.579.[id number] 2.16840.1.250544.3.579.2.06484-89-6995Yayhtet4792863 2.16840.1.612948.3.579.2.31278-08-8979Bwggiss2431400 2.16840.1.841398.3.579.2.78467-54-5086Vmubwmy7002601 2.16840.1.426701.3.579.[id number] 2.16840.1.599800.3.579.2.171540-47-5765Seicuhx74822941 2.16840.1.848046.3.579.2.521729-15-2774Aoereft56741279 2.16840.1.301773.3.579.2.48066-60-4617Xlsztzy56593277 2.16840.1.299500.3.579.2.87492-87-9912Vozmyrl34531650 2.16840.1.796262.3.579.2.02649-76-0075Xyqbcsw43624572 2.16.840.1.213375.3.579.2.36078-89-3976Umefvua90028686 2.16840.1.846613.3.579.2.83655-33-2747Wuyfpye54567882 2.16840.1.229658.3.579.2.30237-40-5176Vzjuliv66157550 2.840.1.227375.3.579.2.16807-00-1962Ohfqovi85663944 2.840.1.358616.3.579.2.82352-79-6285Hdlnmuy09287918 2.840.1.524364.3.579.2.29794-53-0469Flpvxte50421626 2.840.1.067483.3.579.2.408384-82-0918Hmnfbws75668582 2.840.1.644963.3.579.2.725032-91-4066Iltsstc6654432 2.840.1.756416.3.579.2.940747-86-8639Uimjgbt0281125 2.840.1.695147.3.579.2.903767-32-9346Gsyvjou261780786 2.840.1.791778.3.579.2.134089-62-7437Aydzdnh874106898 2.16840.1.808379.3.579.2.575912-30-4589Ylcfuwb55920569 2.16840.1.389999.3.579.2.413982-22-6398Ccqydjb452529628 2.16840.1.536106.3.579.2.187350-37-4048Htgbylp022237563 2.840.1.509452.3.579.2.746109-43-7506Lsblgby720677501 2.16840.1.429320.3.579.2.914669-88-5744Tnhhhoq144658786 2.840.1.812206.3.579.2.875889-01-6683Ygyxicv147993564 2.840.1.699790.3.579.2.690816-68-6806Tkoqyii634856797 2.840.1.524362.3.579.2.018969-22-7240Lsbkxcl604343525 2.840.1.672286.3.579.2.757191-99-6104Afqlxob011623968 2.840.1.743595.3.579.2.336194-42-5100Lswnmsn372130703 2.840.1.128096.3.579.2.504785-33-2990Jpqkdie166322097 2.0.1.116362.3.579.2.039955-98-5811Mlpdasu037053958 2.840.1.645739.3.579.2.701446-81-9337Rraymnv872839687 2.840.1.561527.3.579.2.689739-28-4866Iqqgmjo179449673 2.840.1.651252.3.579.2.582952-88-9055Psrawnr748597407 2.840.1.507371.3.579.2.585905-58-7533Kegzgxp410446308 2.16840.1.961674.3.579.2.731167-29-3914Nnseggk886959999 2.16840.1.752666.3.579.2.232764-12-2158Feswshc123140342 2.16.840.1.160526.3.579.2.969354-75-8671Airiuhm43653327 2.840.1.445294.3.579.2.083488-79-6782Bctlgdv17859436 2.16840.1.806560.3.579.2.805652-30-8259Zaiszir12308710 2.840.1.180892.3.579.2.895259-29-3227Mdmwwka21493095 2.840.1.832627.3.579.2.03692-37-3428Pxzcsxf02049715 2.840.1.440352.3.579.2.26745-79-6631Quhwybn40315076 2.840.1.519550.3.579.2.22355-15-6157Dsdyiiy95871266 2.840.1.949343.3.579.2.98429-38-6358Gtwthos46003150 2.840.1.523034.3.579.2.44942-06-0986Unrkpey31039314 2.840.1.273956.3.579.2.67331-90-8276Rjikznd365365387 2.840.1.473921.3.579.2.32010-49-5739Ferphcl542917950 2.16840.1.758959.3.579.2.87352-50-0491Kejchuy735182610 2.840.1.179688.3.579.2.98460-93-2715Rpgvkak173171117 2.16.840.1.365921.3.579.2.56560-80-3897Hfnkxli227425641 2.16.840.1.555213.3.579.2.196 [id number] 1960Unknown [id number] 2.16.840.1.714560.3.249.13Medicarexxxxxxxxxx 2.16.840.1.391176.3.249.13Unknownxxxxxxxxx 2.16.840.1.763566.3.249.13Unknown [id number] 2.16.840.1.882197.3.579.2.806Zmoqhlr32399691 2.16.840.1.226969.3.579.2.531 Social History DateTypeDetailFacilityStart: 11-09-2017 End: 22-82-5801Ccxlusr smoking status NHISNesterling regional medcenter smokerMer HealthStart: 99-93-6869Myu Assigned At [facility]Not on [facility] Work Phone: Start: 40-17-9622Upmjsdn smoking statusNeverExecutive Urology of [facility] BellevueStart: 05-26-2024 End: 92-10-1778Zue Assigned At [facility] Hospitaltart: 94-91-8213Hvo [facility]igned At [facility]tart: 08-19-2022 End: 80-76-6173Oyxzlni use and exposureSmokeless tobacco non-userNOMS Healthcare Start: 05-26-2024 End: 64-13-2352Bbsdxfvzb beverage intakeLifetime non-drinker (finding)[facility] HealthcareStart: 05-26-2024 End: 51-61-0510Whvnfhc of Social functionNOMS HealthcareStart: 06-11-2023 Qzsiciogh15BFSW HealthcareStart: 42-15-1674Uewyzzy Commentcaffeine: 1-2 cups per dayNOAL HealthcareStart: 67-07-4824Qwocor identityIdentifies as female gender (finding)[facility] HealthcareStart: 07-20-2024 End: 93-63-0903Szrywopan beverage intakeCurrent non-drinker of alcohol (finding) [facility] SystemHas the electric, gas, oil, or water company threatened to shut off services in your home in past 12MoNoProMemorial Health System [facility] SystemAre you now , , , , never or living with a partner?WidowedHolzer Medical Center – [facility] SystemHow often to you have a drink containing alcohol?NeverPaulding County Hospital Health SystemDo you feel stress - tense, restless, nervous, or anxious, or unable to sleep at night because yourmind is troubled all the time - these days [OSQ]Only a littleAtrium Healthtart: 12-65-5957DqkCsywle (finding)[facility] SystemDo you feel stress - tense, restless, nervous, or anxious, or unable to sleep at night because yourmind is troubled all the time - these days [OSQ]Not at allHolzer Medical Center – [facility] System Medical Equipment Procedure CodeEquipment CodeEquipment Original TextEquipment IdentifierDates Liner 32mm C Flat [place] Mpact - [id number]: 99-07-4172Kivgn 48mm 2hl Acet Mpact - [id number]: 65-52-4543Gqqd Sz2 Std Fem Prox Coat Ti Amistem-H - [id number]: 32-87-2113Oipq 32mm +4 Fem Biolox Delta Mectacer - [id number] Start: 11-09-2017 Goals DatePatient GoalDesired Activity/StatePersonal health goalComment on above: Evaluation of progress towards goal: transfer to [facility] med [facility] Personal health goal Functional Status VafzXttbeqmrjpUrmamvPgqpyhsx52-86-9802Ydeev score [AUDIT-C]0 07/03/2025 2:03 PM EDT Isabella [facility]12-17-2024Functional StatusN/A [facility]12-13-2022Functional StatusN/A[facility] Clinical Notes 08-25-2022 to 07-23-2025 Note Date & MolsXudrRxmiaull28-11-2310 Note [id number] [facility]11-07-2025 [place] [facility] Clinical Discharge Summary PERSON INFORMATION Name NOEMI BRAND Age 65 Years 1960 Sex FEMALE Language Central African PCP ALEXANDER CHEN Marital Status Med Service Pain Management Surgery Acct# Arrival 07/20/2025 09:44:51 Visit Reason Thoracic Neuritis Acuity LOS 006 23:42 Address: [address] [place] [address] Comment: PROVIDER INFORMATION VITALS INFORMATION Vital Sign Triage Latest Temp Oral Temp Temporal Temp Intravascular Temp Axillary Temp Rectal 02 Sat 97 % 97 % Respiratory Rate Peripheral Pulse Rate Apical Heart Rate Blood Pressure / 69 mmHg / 69 mmHg Comment: MEDICAL INFORMATION Allergy Info: Trintellix; [...] once a day (in the evening). naltrexone 2 Milligram Oral (given by mouth) At bedtime. omega-3 polyunsaturated fatty acids (Fish Oil) 1 tab(s) Oral (given by mouth) 2 times per day. pantoprazole (Protonix 40 mg oral delayed release [...] constipation. Template Non-Formulary (Compund medication with Biotin) 2 tab(s) Oral (given by mouth) every day. valsartan (valsartan 80 mg oral tablet) 1 tab(s) Oral (given by mouth) every day. verapamil (verapamil 80 mg oral tablet) 1 tab(s) Oral (given by mouth) At bedtime. warfarin (Coumadin 5 mg oral tablet) 0.5 tab(s) Oral (given by mouth) Wednesday and ., Use safe handling/disposal precautions due to reproductive, developmental, and environmental risks. Extra precautions should be taken to minimize errors and patient harm. warfarin (Coumadin) 5 Milligram Oral (given by mouth) Wednesday, Wednesday, Wednesday, Wednesday, and Wednesday. zolpidem (Ambien 10 mg oral tablet) 1 [...] once a day (in the evening). naltrexone 2 Milligram Oral (given by mouth) At bedtime. omega-3 polyunsaturated fatty acids (Fish Oil) 1 tab(s) Oral (given by mouth) 2 times per day. pantoprazole (Protonix 40 mg oral delayed release [...] as needed for constipation. Template Non-Formulary (Compund (more content not included)...[facility] 07-19-2025 [id number] The patient?s history of present illness, physical findings and plan of care have been reviewed. There are no changes. [Electronically Signed on: 07/20/2025 10:08 EST] LINA SCHWAB MD [Electronically Signed on: 07/20/2025 09:59 EST] Iliana Theodore [Verified on: 07/20/2025 10:08 EST] LINA SCHWAB MD [Transcribed on: 07/19/2025 14:38 EST] [facility]11-06-2025 History of Present illness Narrative* Iliana Thorpe PharmD - 07/19/2025 10:30 AM EST 15 minute afjr-eu-ayid follow-up anticoagulation appointment. INR performed in office [...] intolerable adverse events: No Upcoming procedures: Yes, tomorrow, needs copy of INR report Anticoagulant prescription needed: No Seen referring provider in the last year Duration of therapy reviewed Patient could benefit from [facility] pill packaging and patient is agreeable forreferral to be sent: No Assessment: INR within range after decreasing dose last week. Therefore, will continue targeting 30mg/ week. Plan: Patient instructed to continue warfarin 2.5mg Mon, Thurs; 5mg AOD. Check INR in 2 week(s). Patient verbalizes understanding of anticoagulant dosing instructions and information discussed. Dosing regimen, counseling, and follow-up appointment were provided to the patient. Patient reminded to call with questions or any medication changes. Patient instructed to seek medical attention if anymajor bleeding/bleeding that persists or worsens. Iliana Thorpe PharmD 07/19/25 1039 documented in this encounterChildren[facility]10-31-2025 History of Present illness Narrative* Hossein Wong, [facility] - 07/13/2025 11:45 AM EDT 15 minute gtrv-bo-cewx follow-up anticoagulation appointment. INR performed in office per protocol. INR 3.1 (goal range: 2.0-3.0). Patient reports: Taking warfarin dosing as documented. Missed or extra doses of warfarin: No Changes to medications: No Changes to lifestyle (diet / alcohol / smoking / activity): Yes Pt reports some decreased appetite with some diarrhea the last, something that comes and goes commonly Recent emergency department visit / hospitalization / health changes / new contraindication to current anticoagulant: No Signs/symptoms of bruising/bleeding or clotting or any intolerable adverse events: No *Of note, at last appt, Patient reported post colonoscopy she had some bright red blood in her bowels. She did call Dr Chen, this was monitored and has since resolved. Upcoming procedures: Yes Pain epidural on 07/20 at [facility], pt reports goal is <3.0 Anticoagulant prescription needed: No Seen referring provider in the last year Duration of therapy reviewed Patient could benefit from [employer] [facility] pill packaging and patient is agreeable forreferral to be sent: No Assessment: INR is a little high today, likely d/t decreased appetite with some diarrhea that she is currently experiencing, and is not uncommon from time to time. We will decrease pt's dose for today since INR high today, and we will decrease dose on 07/17 in prep for pt's pre-procedure INR that needs to be done on below 3.0 on 07/19, while it's possible her diarrhea symptom could continue Plan: Patient instructed to decrease to 2.5mg 07/13, take 5mg on 07/14 and 07/15 and 2.5mg on 07/16 ascurrently prescribed, decrease to 2.5mg on 07/17, 5mg as directed on 07/18, pre-procedure INR check on 07/19 Patient verbalizes understanding of anticoagulant dosing instructions and information discussed. Dosing regimen, counseling, and follow-up appointment were provided to the patient. Patient reminded to call with questions or any medication changes. Patient instructed to seek medical attention if anymajor bleeding/bleeding that persists or worsens. Hossein Wong RPH 07/13/25 1202 documented in this encounterChildren's Hospital of [facility]10-21-2025 History of Present illness Narrative* Alexander Chen DO - 07/03/2025 2:00 PM EDT Subjective SUBJECTIVE: Patient ID: Noemi Brand is a 65 y.o. female who presents for a Medicare Annual Wellness exam. HPI The following portions of the patient's history were reviewed and updated as appropriate: allergies, current medications, past family history, past medical history, past social history, past surgicalhistory and problem list. AWV FLOWSHEET : Lifestyle Assessment Do you smoke or use smokeless tobacco?: No If you smoke or use smokeless tobacco, are you ready to quit?: NA Are you exposed to secondhand smoke?: No On average, how many drinks of alcohol do you consume in a week?: None Do you exercise for 30 or more minutes on average at least 3 days a week?: Sometimes Do you have any tooth, denture, or oral problems?: No Do you snore or has anyone told you that you snore?: No Do you try to eat a balanced diet?: Yes Do you experience leakage of urine, also known as urinary incontinence?: Never Do you have difficulty bathing?: No Do you have difficulty dressing?: No Do you have difficulty grooming?: No Do you have difficulty eating?: No Do you have difficulty getting out of a chair?: No Do you have difficulty walking?: No Do you have difficulty using the toilet?: No Do you have difficulty doing laundry?: No Do you have difficulty with housekeeping?: No Do you have difficulty preparing a meal?: No Do you have difficulty shopping?: No Do you have difficulty using transportation?: No Do you have difficulty paying bills?: No Do you have difficulty managing finances?: No Fall Risk Fall Risk Assessment Completed?: Yes Have you fallen in the past year?: No Are you worried about falling?: No Do you feel unsteady when standing or walking?: No Risk Stratification: Low Risk Depression Screening Little interest or pleasure in doing things: Not at all Feeling down, depressed, or hopeless: Not at all Trouble falling or staying asleep, or sleeping too much: Not at all Feeling tired or having little energy: Not at all Poor appetite or overeating: Not at all Feeling bad about yourself - or that you are a failure or have let yourself or your family down: Not at all Trouble concentrating on things, such as reading the newspaper or watching television: Not at all Moving or speaking so slowly that other people could have noticed. Or the opposite - being so fidgety or restless that you have been moving around a lot more than usual: Not at all Thoughts that you would be better off , or of hurting yourself in some way: Not at all PEG Scale What number best describes your pain on average in the past week?: 6 Safety Assessment Do you have throw rugs on the floor?: No Do you feel safe at your home?: Yes Do you feel unsteady when walking?: No Are you having difficulty with driving?: No Do you have trouble seeing?: No (right eye blindess) Do you use a bath bar/seat?: (!) Yes Do you use a raised toilet seat?: (!) Yes Do you use a cane?: No Do you use a walker?: No Do you use a wheelchair?: No Hearing Assessment Do you strain or struggle to hear/understand conversations?: No Do you have trouble hearing the television or radio when others do not?: No Does your family ever voice concerns about your hearing?: No Do you wear hearing aid/s?: No Personal Health During the past 4 weeks, how would you rate your overall health?: Good Do you understand how to take all of your medications?: Yes How confident are you that you can control and manage most of your health problems?: Very confident In the past 12 months, how many times have you been hospitalized?: None End of Life Planning Do you have a living will?: Yes Do you have a durable power of insurance defense attorney?: Yes Cognitive Screening Do you have trouble remembering or recalling facts or events?: No Do family members or caregivers report that you have difficulty remembering things?: No 6-ClT: Normal REVIEW OF SYSTEMS: Review of Systems Objective PHYSICAL EXAMINATION: Vitals: 07/03/25 1345 BP: 115/76 Weight: 93.4 kg (206 lb) Height: 165.1 cm (5' 5 ) Physical Exam Assessment/Plan ASSESSMENT/PLAN Noemi was seen today for maw. Diagnoses and all orders for this visit: Encounter for subsequent annual wellness visit (AWV) in Medicare patient Encounter for screening mammogram for malignant neoplasm of breast - Mammography screening bilateral with CAD; Future Return in about 1 year (around 07/03/2026). documented in this encounterChildren[facility]10-21-2025 History of Present illness Narrative* Elena Burgos LPN - 07/03/2025 10:00 AM EDT Reason for Appointment: Patient ID: Noemi Brand is a 65 y.o. female who presents for [facility] Visit Patient presents today for Annual [...] (Wellbutrin XL) 300 MG 24 hr tablet lhzljtnmyz-smuklntosewze-vjevdeay-codeine (Fioricet W/Codeine) [id number] MG capsule 1 capsule, Oral, Every 6 hours PRN diclofenac sodium 1 % gel Emgality 120 MG/ML auto-injector INJECT 1 PEN (120 MG) UNDER THE SKIN EVERY 30 DAYS famotidine (PEPCID) 40 mg, Every morning folic [...] 8 hours naltrexone (Depade) 50 MG tablet Take by mouth pantoprazole (ProtoNix) 40 MG EC tablet propranolol LA (Inderal LA) 60 MG 24 hr capsule TAKE 1 CAPSULE DAILY. DO NOT CRUSH, CHEW OR SPLIT sennosides 17.2 mg SEROquel 400 MG tablet 1 tablet Orally at bedtime for 90 days Singulair 10 MG tablet Every 24 hours Synthroid 50 MCG tablet Every 24 hours Ubrogepant (Ubrelvy) 100 MG tablet 1 tablet, Oral, As needed valsartan (Diovan) 80 MG tablet Every 24 hours verapamil (CALAN) 80 mg, Oral, Daily warfarin (Coumadin) 5 MG tablet Every 24 hours zolpidem (Ambien) 10 MG tablet 1 tablet Orally at bedtime for 30 days ALLERGIES Allergies Allergen Reactions [place] Hives Other Reaction(s): Unknown PT. SAYS SHE [...] Date Noted Ataxia 03/29/2023 Bipolar 1 disorder (HCC) 03/29/2023 Bipolar II disorder (HCC) 03/29/2023 Blood coagulation disorder ([facility]) 03/29/2023 Migraine without aura and without status migrainosus, not intractable 03/29/2023 Cognitive impairment 03/29/2023 Inattention 03/29/2023 Degeneration of lumbar intervertebral disc 03/29/2023 Disc displacement, lumbar 03/29/2023 Gastro-esophageal reflux disease without esophagitis 03/29/2023 Generalized anxiety disorder 03/29/2023 Hallux valgus (acquired), left foot 03/29/2023 Hyperlipidemia 03/29/2023 Hypothyroidism 03/29/2023 Lumbar radiculopathy 03/29/2023 Lupus anticoagulant disorder ([facility]) 03/29/2023 Occipital neuralgia 03/29/2023 Other chronic pain 03/29/2023 Panic disorder with agoraphobia 03/29/2023 Primary osteoarthritis of left foot 03/29/2023 Refractory migraine with aura 03/29/2023 Sacroiliitis, not elsewhere classified 03/29/2023 Sensorineural hearing loss, bilateral 03/29/2023 Spondylosis of lumbar region without myelopathy or radiculopathy 03/29/2023 Bilateral tinnitus 03/29/2023 Tinnitus 03/29/2023 Acquired blindness of one eye 01/15/2016 Acute metabolic encephalopathy 09/27/2016 Altered mental status 12/07/2021 Anticoagulation management encounter 09/05/2013 Asthma ([facility]) 07/26/2023 Back pain 07/26/2023 CAD (coronary artery disease) 09/27/2016 Cataract 07/26/2023 Cerebrovascular accident (CVA) ([facility]) 09/13/1994 TIA (transient ischemic attack) 07/26/2023 Chronic antral gastritis 06/02/2017 Chronic rhinitis 11/21/2018 Deep vein thrombosis (DVT) ([facility]) 05/18/2019 Delirium 10/29/2021 Depression 07/26/2023 Displacement of lumbar intervertebral disc without myelopathy 03/25/2018 Fibromyalgia, primary 05/20/2022 Generalized osteoarthritis 05/20/2022 Glaucoma 11/02/2019 H/O: CVA (cerebrovascular accident) 09/27/2016 Hematoma 10/06/2021 History of 2019 novel coronavirus disease (COVID-19) 10/29/2021 History of blood transfusion 09/13/2012 History of cardiac cath 09/13/1998 History of deep venous thrombosis 09/05/2013 Hypertension 05/20/2022 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 05/20/2022 Intractable chronic migraine without aura and without status migrainosus 11/25/2015 Iron deficiency anemia 04/12/2014 intermediate (current) use of 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 11/24/2021 Obesity (BMI 30.0-34.9) 02/15/2019 Nephrolithiasis 05/20/2022 Misuse of prescription only drugs 07/26/2023 Mild persistent asthma (HCC) 06/16/2016 Migraine 05/18/2019 Lumbosacral spondylosis without myelopathy 03/25/2018 Ischemic optic neuropathy 08/30/2013 Optic neuropathy 05/10/2013 Other optic atrophy, right eye 01/15/2016 Polypharmacy 09/27/2016 Presence of vena cava filter 05/20/2022 Osteoarthritis of left hip 11/09/2017 Degenerative joint disease (DJD) of hip 11/09/2017 Primary osteoarthritis of right hip 08/30/2018 Systemic lupus erythematosus (HCC) 05/29/2013 Thoracic spinal stenosis 03/24/2019 Headache 11/26/2023 Chronic deep vein thrombosis (DVT) of proximal vein of lower extremity (HCC) 05/09/2024 Chronic kidney disease, stage 3 unspecified ([facility]) 10/23/2021 Constipation, unspecified 10/23/2021 Contusion of left thigh 10/28/2021 COVID-19 10/23/2021 Difficulty in walking, not elsewhere classified 10/24/2021 History of falling 10/23/2021 Insomnia, unspecified 10/23/2021 Muscle weakness (generalized) 10/24/2021 Other abnormalities of gait and mobility 10/28/2021 Other fatigue 10/24/2021 Other problems related to life management difficulty 10/24/2021 Presence of left artificial hip joint 10/23/2021 Vitamin D deficiency, unspecified 10/23/2021 Abnormal gait 10/28/2021 Anemia 12/08/2021 Disorder of vein 10/23/2021 Fall 10/23/2021 Sequelae of injury to lower extremity 10/28/2021 Obesity, morbid ([facility]) 01/29/2025 Resolved Ambulatory Problems Diagnosis Date Noted No Resolved Ambulatory Problems Past Medical History: Diagnosis Date Antiphospholipid syndrome ([facility]-HCC) 07/28/2013 Blood clot in vein Broken ribs Cataract of left eye, unspecified cataract type 06/18/2016 Chronic gastritis Connective tissue disease (HCC) Demyelinating disease ([facility]) 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[facility]) Fibromyalgia FO (foramen ovale) ([facility]) H/O exercise stress test 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/2011 High cholesterol History of History of cystoscopy History of [...] Peripheral vision loss Pseudotumor cerebri Stroke (cerebrum) ([facility]) Stroke (HCC) Thoracic back pain Undifferentiated connective tissue disease (HCC) HISTORY PAST MEDICAL HISTORY SOCIAL HISTORY Past Medical History: Diagnosis Date Anemia Antiphospholipid syndrome ([facility]) 07/28/2013 Blood clot in vein R arm and L leg Broken ribs Cataract of left eye, unspecified cataract type 06/18/2016 Chronic gastritis Connective tissue disease (HCC) Demyelinating disease ([facility]) 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[facility]) Depression Fibromyalgia FO (foramen ovale) ([facility]) 01/29/2012 Repeated 03/30/2013 H/O exercise stress test 03/20/2013 (Normal) 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/2011 High cholesterol History of History of cystoscopy Cystoscope History [...] replacement 11/09/2017 Lumbar radiculopathy Lupus anticoagulant disorder ([facility]) Medication reaction 01/19/2011 Medication reaction [place] (weaned off 10/21/2016 - 10/28/2016) Memory loss Migraine / RO TIA, 09/26/2016 Occipital neuralgia 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/23/2013 Osteoarthritis Paresthesia Peripheral vision loss Presence of vena cava filter 01/02/2015 Pseudotumor cerebri Stroke (cerebrum) ([facility]) Stroke ([facility]) Thoracic back pain TIA (transient ischemic attack) 10/03/2011 ; 02/01/2014 Undifferentiated connective tissue disease ([facility]) Social History Tobacco Use Smoking [...] SYSTEMS Review of Systems: Review of Systems Constitutional: Negative. HENT: Negative. Eyes: Negative. Respiratory: Negative. Cardiovascular: Negative. Gastrointestinal: Negative. Genitourinary: Negative. Musculoskeletal: Negative. Skin: Negative. Neurological: Negative. All other systems reviewed and are negative. Hematological: Negative. Endocrine: Negative. Allergic/Immunologic: Negative. OBJECTIVE Objective: Physical Exam Constitutional: Appearance: Normal appearance. She is well-developed. Genitourinary: Vulva normal. Cardiovascular: Rate and Rhythm: Normal rate and [...] nursing note reviewed. Exam conducted with a boiler repairman present. Vitals: Estimated body mass index is 34.41 kg/m as calculated from the following: Height as of 03/23/25: 5' 5 . Weight as of this encounter: 206 lb 12.8 oz. BP: 120/80 No LMP recorded. Patient is postmenopausal. ASSESSMENT & PLAN ICD-10-CM 1. Well woman exam with routine gynecological exam Z01.419 THIN PREP TIS PAP AND HR HPV DNA 2. Breast cancer screening by mammogram Z12.31 Bilateral screening mammogram Bilateral screening mammogram 3. Postmenopausal state Z78.0 DEXA bone density Orders Placed This Encounter Procedures Bilateral screening mammogram DEXA bone density Annual Wellness Exam: Patient presents today for routine annual exam. Patient states she has no current complaints. Patients vitals were reviewed and within normal limits. Growth and development is noted to be appropriate for age. No mental health concerns was expressed. Pap Smear: Speculum was inserted into the vagina and pap was obtained without difficulty. HPV testing was performed per age guideline. Patient was advised that pap results could take anywhere from 7 to 10 days to receive and our office will reach out to the patient with those once we have them. Patient can also view results via [facility]. I reinforced importance of condom use for STI prevention. Patient declined cultures to be performed with today's visit. Breast Exam: Upon examination, clinical breast exam was noted to be normal and screening mammogram was ordered and given to patient to have obtained. Patient was counseled on breast self-awareness, including the importance of knowing what is normal for her own breasts and promptly reporting any changes such as new lumps, skin dimpling, nipple discharge, or pain. Screening mammogram was recommended annually. Discussed signs and symptoms of breast cancer and when to seek medical attention. Answered all patient questions. DEXA Counseling: DEXA scan ordered and given to the patient to have performed for osteoporosis screening per guidelines. Patient counseled on bone health, including the importance of calcium and vitamin D intake, weight-bearing exercise, fall prevention, and avoiding tobacco and excessive alcohol. Discussed purposeof DEXA in assessing fracture risk and monitoring bone density. Patient advised results will be reviewed upon completion and next steps discussed as needed. Follow Up: Patient is to return to our office in one year for annual exam unless needed otherwise. Documented by Elena Burgos LPN on behalf of: Kobi Latham DO documented in this encounterSt. Lukes Des Peres [id number] History of Present illness Narrative* Luz Marina De Santiago, [facility] - 07/03/2025 9:00 AM EDT 15 minute brvi-cw-srhq follow-up anticoagulation appointment. INR performed in office [...] persists or worsens. Luz Marina De Santiago [facility] 07/03/[address] [facility]10-03-2025 Miscellaneous Notes* Telephone Encounter - Jessa Rojo - 06/15/2025 10:24 AM EDT Patient called to inform that all the Lovenox that she had at home has . She needs a RX for the Lovenox 100 mg sent to [facility] P:[phone]. For all doses for her bridging. * Telephone Encounter - Luz Marina De Santiago RP - 06/15/2025 10:24 AM EDT Noted. Lovenox sent to [facility] per request. Luz Marina De Santiago PharmD, [facility] June 15, 2025 11:26 AM documented in this encounterChildren[facility]10-03-2025 Telephone encounter Note* Telephone Encounter - Jessa Rojo - 06/15/2025 10:24 AM EDT Patient called to inform that all the Lovenox that she had at home has . She needs a RX for the Lovenox 100 mg sent to [facility] P:[phone]. For all doses for her bridging. [facility]10-03-2025 Telephone encounter Note* Telephone Encounter - Luz Marina De Santiago RP - 06/15/2025 10:24 AM EDT Noted. Lovenox sent to [facility] per request. Luz Marina De Santiago PharmD, [facility] June 15, 2025 11:26 AM [facility]09-29-2025 Note [id number]09-26-20[facility] [place] [facility] Clinical Discharge Summary PERSON INFORMATION Name NOEMI BRAND Age 65 Years 1960 Sex FEMALE Language Central African PCP ALEXANDER CHEN Marital Status Med Service Pain Management Surgery Acct# Arrival 06/08/2025 09:09:03 Visit Reason Lumbosacral Spondylosis Acuity LOS 009 22:45 Address: [address] [place] [address] Comment: PROVIDER INFORMATION VITALS INFORMATION Vital Sign [...] Oil) 2400mg daily. panto (more content not included)...[facility] [id number] Note [id number] The patient?s history of present illness, physical findings and plan of care have been reviewed. There are no changes. [Electronically Signed on: 06/08/2025 09:40 EDT] LINA SCHWAB MD [Electronically Signed on: 06/08/2025 09:35 EDT] Trista Menezes RN [Verified on: 06/08/2025 09:40 EDT] LINA SCHWAB MD [Transcribed on: 06/07/2025 10:37 EDT] [facility]09-25-2025 History of Present illness Narrative* Luz Marina De Santiago, [facility] - 06/07/2025 10:30 AM EDT 15 minute khba-wu-oxvh follow-up anticoagulation appointment. INR performed in office [...] of therapy reviewed Patient could benefit from [facility] pill packaging and patient is [...] persists or worsens. Luz Marina De Santiago [facility] 06/07/25 1137 * Luz Marina De Santiago [facility] - 06/07/2025 10:30 AM EDT Images from the original note were not included. Bridge plan is as follows: Luz Marina De Santiago [facility] 06/07/25 1137 documented in this encounterChildren's Hospital of [facility]09-16-2025 Miscellaneous Notes* Telephone Encounter - Kimber Anderson MA - 05/29/2025 10:46 AM EDT Patient called. She is scheduled for a procedure on 06/08/25 to burn the nerve endings in the back on both sides with Dr. Nilesh Schwab at [facility] (P: [phone]). She does not need to hold her Warfarin, however needs an INR drawn the day before. The INR needs to be 3.0 or below. Her INR appointment was r/s from 06/01 to 06/07/25. Patient states Dr. Schwab sent clearance to Dr. Chen. Contactpatient at [phone] with any questions. * Telephone Encounter - Luz Marina De Santiago [facility] - 05/29/2025 10:46 AM EDT Noted. INR has been running on the high end of range, therefore recommend taking 2.5 mg on 06/05 to help ensure INR goal is met. Called patient at [phone] with one time dose adjustment. Patient v/u of this change. Encouraged to call with any further needs. Luz Marina De Santiago PharmD, BCPS May 29, 2025 12:45 PM documented in this encounterChildren's Hospital of [facility]09-16-2025 Telephone encounter Note* Telephone Encounter - Kimber Anderson MA - 05/29/2025 10:46 AM EDT Patient called. She is scheduled for a procedure on 06/08/25 to burn the nerve endings in the back on both sides with Dr. Nilesh Schwab at [facility] (P: [phone]). She does not need to hold her Warfarin, however needs an INR drawn the day before. The INR needs to be 3.0 or below. Her INR appointment was r/s from 06/01 to 06/07/25. Patient states Dr. Schwab sent clearance to Dr. Chen. Contactpatient at [phone] with any questions. [facility] [employer] [id number] Telephone encounter Note* Telephone Encounter - Luz Marina De Santiago [facility] - 05/29/2025 10:46 AM EDT Noted. INR has been running on the high end of range, therefore recommend taking 2.5 mg on 06/05 to help ensure INR goal is met. Called patient at [phone] with one time dose adjustment. Patient v/u of this change. Encouraged to call with any further needs. Luz Marina De Santiago, PharmD, [facility] May 29, 2025 12:45 PM [facility] Work Phone: [phone] History of Present illness Narrative* Hossein Wong, [facility] - 04/20/2025 8:45 AM EDT 15 minute pmkd-he-bgsz follow-up anticoagulation appointment. INR performed in office [...] Wong RPH 04/20/25 0848 documented in this encounterChildren's Hospital of [facility]07-11-2025 History of Present illness Narrative* Mauro Levin [...] marked decrease from their previous daily or lynvo-xnnpp-bnr frequency. She continues to receive injections from [...] verapamil and Ubrelvy will be sent to [facility]. She is advised to continue her current [...] months. This clinical note was created utilizing [employer] documentation system. All information has beenthoroughly reviewed, corrected as necessary, and authenticated by the provider to ensure accuracy and completeness. On occasion, [employer] documentation system erroneously drops words or replaces aspoken word with a similar sounding word. Please notify with any questions or concerns regarding this clinical note. documented in this encounterSt. Lukes Des Peres HospitalDwhdmzlffz00-45-4630 History of Present illness Narrative* Hossein Wong RPH - 03/23/2025 9:00 AM EDT 15 minute hwtp-hy-xcil follow-up anticoagulation appointment. INR performed in office [...] that persists or worsens. Hossein Wong RPH 03/23/[address] [facility]07-11-2025 Miscellaneous Notes* Addendum Note - Hossein Wong RPH - 03/23/2025 9:00 AM EDTAddended by: HOSSEIN WONG on: 03/23/2025 09:20 AM Modules accepted: Orders documented in this [facility]07-11-2025 Note* Addendum Note - Hossein Wong RPH - 03/23/2025 9:00 AM EDTAddended by: HOSSEIN WONG on: 03/23/2025 09:20 AM Modules accepted: Orders [facility]06-24-2025 History of Present illness Narrative* Zoe MAYTE Norris - 03/06/2025 1:00 PM EDT OUTPATIENT NUTRITION [...] 07/20/24 96.8 kg (213 lb 6.4 oz) [place] Body Weight [place] body weight: 59.3 kg (130 lb 11.7 oz) Adjusted ideal body weight: 74.8 kg (164 lb 13.4 oz) Lab Results: POCT A1c No results found for: ZPWIYSL2X A1c Lab Results Component Value Date HGBA1C [...] (Patient-Rptd) (P) 1200 Lunch Meal:: (Patient-Rptd) (P) North Dinner Time:: (Patient-Rptd) (P) 1702 Dinner Meal:: [...] Diabetes and Nutrition Education documented in this encounterChildren's Hospital of [facility]06-06-2025 History of Present illness Narrative* Hossein Wong, [facility] - 02/16/2025 8:45 AM EDT 15 minute bdwy-mc-mqco follow-up anticoagulation appointment. INR performed in office [...] Wong RPH 02/16/25 0850 documented in this encounterChildren's Hospital of [facility]05-21-2025 Miscellaneous Notes* Telephone Encounter - Anabell Jackson - 01/31/2025 10:36 AM EDT We received a referral for education on Noemi Mcintosh Federico 1960. However per CMS Guidelines we need to have the services requested marked as such on referral. Please see pended order and sign if you are agreeable. Thank you [facility] * Telephone Encounter - Anabell Jackson - 01/31/2025 10:36 AM EDT New referral signed documented in this [facility]05-21-2025 Telephone encounter Note* Telephone Encounter - Anabell Jackson - 01/31/2025 10:36 AM EDT We received a referral for education on Noemi Brand 1960. However per [facility] Guidelines we need to have the services requested marked as such on referral. Please see pended order and sign if you are agreeable. Thank you [facility] Diabetes and Nutrition Education [facility]05-21-2025 Telephone encounter Note* Telephone Encounter - Anabell Manuel - 01/31/2025 10:36 AM EDT New referral signed [id number] History of Present illness Narrative* Alexander Chen, [...] Future - Hemoglobin A1c 5. Obesity, morbid ([facility]) -overall stable -patient has multiple other problems requiring precedence 6. Bipolar II disorder ([facility]) -keep appointment with Psychiatry -current regimen including bupropion, BuSpar, and Ambien 7. Chronic deep vein thrombosis (DVT) of proximal vein of lower extremity, unspecified laterality ([facility]) -related to lupus anticoagulant disorder -on warfarin for long-term thromboembolism prophylaxis 8. Systemic lupus erythematosus ([facility]) -stable -keep appointment with Rheumatology 9. Lupus [...] valsartan, verapamil, propanolol. Blood pressures at home [id number] mmHg. No lightheadedness. Home BP log was [...] mg total) by mouth., Disp: , Rfl: spwpmbkfqq-eauvepbeax-ode-cod (FIORICET WITH CODEINE) 72-524-08-30 mg per capsule, Take 1 capsule by [...] 10 mg tablet, , Disp: , Rfl: pdyfxwwcpi-hgwvjkzwtesjz-pdty (FIORICET, ESGIC) 50-325-40 mg per tablet, Take [...] Testing No results found. Alexander Chen DO., [facility] Office: [phone] documented in this encounterChildren's Hospital of [facility]05-09-2025 History of Present illness Narrative* Hossein Nataly, [facility] - 01/19/2025 8:45 AM EDT 15 minute bjvk-lv-dglz follow-up anticoagulation appointment. INR performed in office [...] bleeding/bleeding that persists or worsens. Hossein Wong [facility] 01/19/25 0850 documented in this encounterChildren's Hospital of [facility]04-11-2025 History of Present illness Narrative* Hossein Wong [facility] - 12/22/2024 9:15 AM EDT 15 minute gnul-yl-rteq follow-up anticoagulation appointment. INR performed in office [...] bleeding/bleeding that persists or worsens. Hossein Wong [facility] 12/22/24 0910 documented in this encounterChildren's Hospital of [facility]03-14-2025 History of Present illness Narrative* Luz Marina De Santiago, [facility] - 11/24/2024 9:15 AM EDT 15 minute otym-kn-nspb follow-up anticoagulation appointment. INR performed in office [...] persists or worsens. Luz Marina De Santiago [facility] 11/24/24 0953 documented in this encounterChildren's Hospital of [facility]02-14-2025 History of Present illness Narrative* Luz Marina De Santiago RP - 10/27/2024 9:30 AM EST 15 minute rzxj-bi-hgov follow-up anticoagulation appointment. INR performed in office [...] persists or worsens. Luz Marina De Santiago [facility] 10/27/24 0927 documented in this encounterChildren's Hospital of [facility]01-17-2025 History of Present illness Narrative* Luz Marina De Santiago [facility] - 09/29/2024 9:00 AM EST 15 minute ixrr-lf-msok follow-up anticoagulation appointment. INR performed in office [...] persists or worsens. Luz Marina De Santiago [facility] 09/29/24 0858 documented in this encounterChildren's Hospital of [facility]01-10-2025 History of Present illness Narrative* Mauro Levin [...] bedtime for 30 days Allergies Allergen Reactions [place] Hives Other Reaction(s): Unknown PT. SAYS SHE [...] disorder (CMS/HCC) Medication reaction 01/19/2011 Medication reaction [place] (weaned off 10/21/2016 - 10/28/2016) Memory loss Migraine ([facility]) / RO TIA, 09/26/2016 Occipital neuralgia 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/23/2013 Osteoarthritis Paresthesia Peripheral vision loss Presence of vena cava filter 01/02/2015 Pseudotumor cerebri Stroke (cerebrum) ([facility]) Stroke ([facility]) Thoracic back pain TIA (transient ischemic attack) 10/03/2011 ; 02/01/2014 Undifferentiated connective tissue disease ([facility]) Past Surgical History: Procedure Laterality [...] Depression: Not at risk (07/20/2024) Received from [employer] PHQ-2 Total Score: 0 Recent Concern: Depression - At risk (05/09/2024) Received from [employer] PHQ-2 Total Score: 4 REVIEW OF SYMPTOMS: [...] reflexes: Vikki's absent. Ankle clonus absent. Coordination Sqaugi-kw-gjtd, rapid alternating movements and gjlx-jq-htwq normal bilaterally without dysmetria. Gait Normal casual, [...] Follow up 3 months. documented in this encounterSt. [facility] [id number] History of Present illness Narrative* Hossein Wong, [facility] - 09/20/2024 9:15 AM EST 15 minute ckzw-jp-amna follow-up anticoagulation appointment. INR performed in office per protocol. INR 2.9 (goal range: 2.0-3.0). Patient reports: Taking warfarin dosing as documented. Missed or extra doses of warfarin: No Changes to medications: Not yet, BUT Pt's inspector fuel hose wants her to start taking One A [...] will continue same dose, but under pt's inspector fuel hose recommendation, pt is going to start a [...] bleeding/bleeding that persists or worsens. Hossein Wong [facility] 09/20/24 0933 [facility] History of Present illness Narrative* Hossein Wong RP - 09/01/2024 8:30 AM EST 15 minute yfuh-yb-jdxl follow-up anticoagulation appointment. INR performed in office per protocol. INR 3.4 (goal range: 2.0-3.0). Patient reports: Taking warfarin dosing as documented. Missed or extra doses of warfarin: No Changes to medications: Not yet, BUT Pt's inspector fuel hose wants her to start taking One A [...] Wong RPH 09/01/24 0836 documented in this [facility]Children[facility]24 Hospital Discharge instructions Patient Education 08/29/2024 11:37:01 [...] Follow these instructions at home: Medicines Take ywoo-vwv-jreqjct and prescription medicines only as told by [...] provider. Document Revised: 12/09/2022 Document Reviewed: 12/09/2022 [employer] Patient Education 2023 Chug. Follow Up Care 08/25/2023 13:49:16 With:GERRY SAPP, ANDRE Miller, URL Address: [address] [place] [address] When:Within 1 Year(s) [facility] 12-17-2024 NotePatient Education Urology Kidney Stones [...] these instructions at home: Medicines ??? Take qfuy-mpp-ttkqrls and prescription medicines only as told by [...] urine pale yellow. Thi (more content not included)...[facility]10-14-2024 History of Present illness Narrative* Jamia Aburto, PHYSICAL SECURITY SPECIALIST - 06/26/2024 2:00 PM EDT Reason for Appointment: Patient ID: Noemi Brand is a 64 y.o. female who presents for [facility] Visit Patient presents today for Annual [...] (Wellbutrin XL) 300 MG 24 hr tablet gbdzuvukbw-ajeuytnlvdqfe-sgbbwvwe (Esgic) 50-325-40 MG tablet 1 tablet, Oral, [...] for 30 days ALLERGIES Allergies Allergen Reactions [place] Hives Other Reaction(s): Unknown PT. SAYS SHE [...] Date Noted Ataxia 03/29/2023 Bipolar 1 disorder ([facility]) 03/29/2023 Bipolar II disorder ([facility]) 03/29/2023 Blood coagulation disorder ([facility]) 03/29/2023 Migraine without aura and without status migrainosus, not intractable ([facility]) 03/29/2023 Cognitive impairment 03/29/2023 Inattention 03/29/2023 Degeneration of lumbar intervertebral disc 03/29/2023 Disc displacement, lumbar 03/29/2023 Gastro-esophageal reflux disease without esophagitis 03/29/2023 Generalized anxiety disorder ([facility]) 03/29/2023 Hallux valgus (acquired), left foot 03/29/2023 Hyperlipidemia ([facility]) 03/29/2023 Hypothyroidism ([facility]) 03/29/2023 Lumbar radiculopathy 03/29/2023 Lupus anticoagulant disorder ([facility]) 03/29/2023 Occipital neuralgia 03/29/2023 Other chronic pain 03/29/2023 Panic disorder with agoraphobia ([facility]) 03/29/2023 Primary osteoarthritis of left foot 03/29/2023 Refractory migraine with aura ([facility]) 03/29/2023 Sacroiliitis, not elsewhere classified ([facility]) 03/29/2023 Sensorineural hearing loss, bilateral 03/29/2023 Spondylosis of lumbar region without myelopathy or radiculopathy 03/29/2023 Bilateral tinnitus 03/29/2023 Tinnitus 03/29/2023 Acquired blindness of one eye 01/15/2016 Acute metabolic encephalopathy 09/27/2016 Altered mental status 12/07/2021 Anemia 07/26/2023 Anticoagulation management encounter 09/05/2013 Asthma ([facility]) 07/26/2023 Back pain 07/26/2023 CAD (coronary artery disease) ([facility]) 09/27/2016 Cataract 07/26/2023 Cerebrovascular accident (CVA) ([facility]) 09/13/1994 TIA (transient ischemic attack) 07/26/2023 Chronic antral gastritis 06/02/2017 Chronic rhinitis 11/21/2018 Deep vein thrombosis (DVT) ([facility]) 05/18/2019 Delirium 10/29/2021 Depression ([facility]) 07/26/2023 Displacement of lumbar intervertebral disc without myelopathy 03/25/2018 Fibromyalgia, primary 05/20/2022 Generalized osteoarthritis 05/20/2022 Glaucoma ([facility]) 11/02/2019 H/O: CVA (cerebrovascular accident) 09/27/2016 Hematoma 10/06/2021 History of 2019 novel coronavirus disease (COVID-19) 10/29/2021 History of blood transfusion 09/13/2012 History of cardiac cath 09/13/1998 History of deep venous thrombosis 09/05/2013 Hypertension ([facility]) 05/20/2022 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 ([facility]) 05/20/2022 Intractable chronic migraine without aura and without status migrainosus ([facility]) 11/25/2015 Iron deficiency anemia 04/12/2014 intermediate (current) use of 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 11/24/2021 Obesity (BMI 30.0-34.9) 02/15/2019 Nephrolithiasis 05/20/2022 Misuse of prescription only drugs 07/26/2023 Mild persistent asthma ([facility]) 06/16/2016 Migraine ([facility]) 05/18/2019 Lumbosacral spondylosis without myelopathy 03/25/2018 Ischemic optic neuropathy 08/30/2013 Optic neuropathy 05/10/2013 Other optic atrophy, right eye 01/15/2016 Polypharmacy 09/27/2016 Presence of vena cava filter 05/20/2022 Osteoarthritis of left hip 11/09/2017 Degenerative joint disease (DJD) of hip 11/09/2017 Primary osteoarthritis of right hip 08/30/2018 Systemic lupus erythematosus ([facility]) 05/29/2013 Thoracic spinal stenosis 03/24/2019 Headache 11/26/2023 Chronic deep vein thrombosis (DVT) of proximal vein of lower extremity ([facility]) 05/09/2024 Chronic kidney disease, stage 3 unspecified ([facility]) ([facility]) 10/23/2021 Constipation, unspecified 10/23/2021 Contusion [...] Past Medical History: Diagnosis Date Antiphospholipid syndrome ([facility]) 07/28/2013 Blood clot in vein Broken ribs Cataract of left eye, unspecified cataract type 06/18/2016 Chronic gastritis Connective tissue disease ([facility]) Demyelinating disease ([facility]) 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[facility]) Fibromyalgia FO (foramen ovale) H/O exercise stress test Cristi's thyroiditis ([facility]) 09/18/2011 High cholesterol ([facility]) History of History of cystoscopy [...] disorder (CMS/HCC) Medication reaction 01/19/2011 Medication reaction [place] (weaned off 10/21/2016 - 10/28/2016) Memory loss Migraine (CMS/HCC) / RO TIA, 09/26/2016 Occipital neuralgia 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/23/2013 Osteoarthritis Paresthesia Peripheral vision loss Presence of vena cava filter 01/02/2015 Pseudotumor cerebri Stroke (cerebrum) (CMS/HCC) Stroke (CMS/HCC) Thoracic back pain TIA (transient ischemic attack) 10/03/2011 ; 02/01/2014 Undifferentiated connective tissue disease ([facility]) Social History Tobacco Use Smoking status: Never [...] nursing note reviewed. Exam conducted with a boiler repairman present. Vitals: Estimated body mass index is [...] of: Kobi Latham DO documented in this [facility]10-03-2024 Telephone encounter Note* Telephone Encounter - Sofia Coulter NP - 06/15/2024 4:30 PM EDT I am resending Fioricet correct dose as the reason likely denied is the 300 mg of tylenol instead of 325 mg and that would have been my error. I called patient and let her know. [facility] [id number] Miscellaneous Notes* Telephone Encounter - Sofia Coulter [...] if something different can be sent to [facility] in [employer] or [employer]. documented in this [facility]10-03-2024 Telephone encounter Note* Telephone Encounter - Teresa Rios - 06/15/2024 4:07 PM EDT Patient left message stating that she faxed a letter she received on Wednesday that gave alternative prescriptions. Checking on status if something different can be sent to [facility] in [employer] or [employer]. [facility] [id number] Telephone encounter Note* Telephone Encounter - Sofia Coulter NP - 06/07/2024 10:41 PM EDT [facility] reviewed. [facility] [id number] Miscellaneous Notes* Telephone Encounter - Sofia Coulter NP - 06/07/2024 10:41 PM EDT [facility] reviewed. documented in this encounterSt. Lukes [facility] [id number] History of Present illness Narrative* Melva Mcarthur [...] pro[facility]anolol to [facility] and [facility] [place]. No other concerns today. CURRENT MEDICATIONS: ALLERGIES/DISCONTINUE [...] bedtime for 30 days Allergies Allergen Reactions [place] Hives Other Reaction(s): Unknown PT. SAYS SHE [...] Medications Discontinued During This Encounter Medication Reason wsddvpxaha-ctsqeslzanjko-fzlwxmxg-codeine (Fioricet W/Codeine) 17-411-02-30 MG capsule PAST MEDICAL HISTORY: SURGICAL/SOCIAL/FAMILY HISTORY [...] disorder (CMS/HCC) Medication reaction 01/19/2011 Medication reaction [place] (weaned off 10/21/2016 - 10/28/2016) Memory loss Migraine (CMS/HCC) / RO TIA, 09/26/2016 Occipital neuralgia 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/23/2013 Osteoarthritis Paresthesia Peripheral vision loss Presence of vena cava filter 01/02/2015 Pseudotumor cerebri Stroke (cerebrum) (CMS/HCC) Stroke (CMS/HCC) Thoracic back pain TIA (transient ischemic attack) 10/03/2011 ; 02/01/2014 Undifferentiated connective tissue disease ([facility]) Past Surgical History: Procedure Laterality [...] Sibling Depression: At risk (05/09/2024) Received from [employer] PHQ-2 Total Score: 4 REVIEW OF SYMPTOMS: [...] reflexes: Vikki's absent. Ankle clonus absent. Coordination Weublg-pw-tvvd, rapid alternating movements and muof-tq-pgif normal bilaterally without dysmetria. Gait Normal casual, [...] Follow up 3 months documented in this encounterSt. Lukes [facility] [id number] Hospital Discharge instructions Patient Education 08/25/2022 13:32:50 Kidney Stones, Lxog-mx-Xpnr Kidney Stones Kidney stones are rock-like masses [...] Follow these instructions at home: Medicines Take btdo-rch-ngshsdg and prescription medicines only as told by [...] 02/15/2009 Document Revised: 01/16/2020 Document Reviewed: 01/16/2020 [employer] Patient Education 2020 Chug. Follow Up Care 08/12/2021 11:07:07 With:ANDRE MCNEIL PA-C, URL Address: When:1 year [facility] evaluation + Plan note Future Appointments Appointment Date:08/25/2023 01:00:00 PM Scheduled Provider:ANDRE MCNEIL PA-C Location:[facility] Appointment Type:URO Office Visit [facility] evaluation + Plan note Future Appointments Appointment Date:08/29/2024 10:00:00 AM Scheduled Provider:ANDRE MCNEIL PA-C Location:[facility] Appointment Type:URO Office Visit Diagnostic Tests Pending * [facility] Future App[facility]ments Appointment Date:08/29/2024 10:00:00 AM Scheduled Provider:ANDRE MCNEIL PA-C Location:[facility] Appointment Type:URO Office Visit [facility] evaluation + Plan note Future Appointments Appointment Date:08/29/2024 10:00:00 AM Scheduled Provider:ANDRE MCNEIL PA-C Location:[facility] Appointment Type:URO Office Visit Diagnostic Tests Pending * Urine Culture [facility] Future Appointments Appointment Date:08/29/2024 10:00:00 AM Scheduled Provider:ANDRE MCNEIL PA-C Location:[facility] Appointment Type:URO Office Visit Diagnostic Tests Pending * Calculi Analysis Urinary [facility]20[facility] Future Appointments Appointment Date:08/30/2025 09:40:00 AM Scheduled Provider:ANDRE MCNEIL PA-C Location:[facility] Appointment Type:URO Office Visit [facility] evaluation noteNo assessment information available [facility] Work Phone: Evaluation note* Diagnosis Migraine without aura and without status migrainosus, not intractable (CMS/HCC)- Primary [facility]* Diagnosis Well woman exam with routine gynecological exam Routine gynecological examination Postmenopausal state Asymptomatic postmenopausal status (age-related) (natural) Breast cancer screening by mammogram [facility]* Diagnosis Migraine without aura and without status migrainosus, not intractable (CMS/HCC) documented in this encounter [facility]* Diagnosis Lumbar radiculopathy Thoracic or lumbosacral neuritis or radiculitis, unspecified documented in this encounter [facility]* Diagnosis intermediate (current) use of 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- Primary Long-term (current) use of 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 [facility] Diagnosis intermediate (current) use of 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- Primary Long-term (current) use of 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 [facility] Diagnosis Migraine without aura and without status migrainosus, not intractable (CMS/HCC) documented in this encounter [facility]* Diagnosis Gastroesophageal reflux disease, unspecified whether esophagitis present [facility] Diagnosis Cervical spondylosis with radiculopathy Cervical spondylosis with myelopathy Gastroesophageal reflux disease, unspecified whether esophagitis present [facility] Diagnosis Mild persistent asthma without complication [facility] Diagnosis Mixed hyperlipidemia [facility] Diagnosis Mixed hyperlipidemia [facility]* Diagnosis Gastroesophageal reflux disease, unspecified whether esophagitis present Cervical spondylosis with radiculopathy Cervical spondylosis with myelopathy documented [facility] this encounter [facility]* Diagnosis Essential hypertension Unspecified essential hypertension documented in this encounter [facility]* Diagnosis Migraine without aura and without status migrainosus, not intractable ([facility])- Primary documented in this encounter [facility]* Diagnosis intermediate (current) use of 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- Primary Long-term (current) use of 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 documented in this encounter [facility]* Diagnosis Gastroesophageal reflux disease, unspecified whether esophagitis present documented in this encounter [facility]* Diagnosis Essential hypertension- Primary Unspecified essential hypertension 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 Mixed hyperlipidemia IFG (impaired fasting glucose) Obesity, morbid ([facility]) Morbid obesity Bipolar II disorder ([facility]) Other bipolar disorders Chronic deep vein thrombosis (DVT) of proximal vein of lower extremity, unspecified laterality ([facility]) Systemic lupus erythematosus ([facility]) Lupus anticoagulant disorder Primary hypercoagulable state Mild persistent asthma without complication Gastroesophageal reflux disease, unspecified whether esophagitis present Special screening for malignant neoplasm of colon Special screening for malignant neoplasms, colon documented in this encounter [facility]* Diagnosis Type 2 diabetes mellitus without complication, without long-term current use of insulin ([facility] Primary documented in this encounter [facility]* Diagnosis Mild persistent asthma without complication documented in this encounter [facility]* Diagnosis 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- Primary Long-term (current) use of 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 documented in this encounter [facility]* Diagnosis Type 2 diabetes mellitus without complication, without long-term current use of insulin ([facility]) documented in this encounter [facility]* Diagnosis intermediate (current) use of 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- Primary Long-term (current) use of 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 Lupus anticoagulant disorder Primary hypercoagulable state documented in this encounter [facility]* Diagnosis Migraine without aura and without status migrainosus, not intractable- Primary documented in this encounter [facility] HealthcareEvaluation note* Diagnosis Migraine without aura and without status migrainosus, not intractable [facility] Diagnosis Essential hypertension Unspecified essential hypertension [facility] Diagnosis intermediate (current) use of 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- Primary Long-term (current) use of 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 [facility]* Diagnosis Migraine without aura and without status migrainosus, not intractable 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- Primary Long-term (current) use of 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 Screen for colon cancer Special screening for malignant neoplasms, colon [facility]* Diagnosis Lupus anticoagulant disorder- Primary Primary hypercoagulable state Personal history of DVT (deep vein thrombosis) Personal history of venous thrombosis and embolism Screen for colon cancer Special screening for malignant neoplasms, colon [facility]* Diagnosis Mixed hyperlipidemia [facility]* Diagnosis 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- Primary Long-term (current) use of 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 [facility]* Diagnosis Encounter for subsequent annual wellness visit (AWV) in Medicare patient- Primary Encounter for screening mammogram for malignant neoplasm of breast [facility]* Diagnosis Well woman exam with routine gynecological exam Routine gynecological examination Breast cancer screening by mammogram Postmenopausal state Asymptomatic postmenopausal status (age-related) (natural) 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- Primary Long-term (current) use of 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 [facility]* Diagnosis Cervical spondylosis with radiculopathy Cervical spondylosis with myelopathy [facility] Narrative No data available for this section [facility] Discharge instructions No data available for this section [facility] HospitalInstructionsNot on filedocumented in this encounter [facility]ructionsNot on filedocumented in this encounter [facility] [...] this section [facility] Discharge Instructions * Discharge Instr - [...] If you have selected to use the [employer] Unit, the hip wrap was placed on [...] will return the [employer] Unit to our [place] office at your 2 week follow up [...] No Advanced Directives Records FoundDocuments on File TypeDate RecordedPatient RepresentativeExplanationACP-Advance DirectiveACP-Power of AttorneyACP-Advance Directive09/29/2016 [...] your surgery date, please call us at [phone] Preoperative Medication Instructions In preparation for surgery please continue all of your current medications with the following changes: Noemi Brand Home Medication Instructions Prior to Surgery ZACK:[id number] Printed on:10/21/17 1250 Medication Information Take last [...] every morning TAKES 1 TABLET . NO zskxexq-iquzuefzit-QDP-caff (hwolbljaee-fmeyfeu-dupmklxo-codeine) capsule Take 1 capsule by mouth continuous [...] medications that contain aspirin, such as [place]le [place], Pepto- Bismol, Anacin), antiinflammatory medications such as Advil, Motrin, Ibuprofen, Naproxen, Aleve, [place], Pepto-Bismol,Anacin, Diclofenac, Voltaren, Daypro, Etodolac, Ketoprofen, Piroxicam, Relafen, Nabumetone, etc. THESE SHOULD NOT BE USED WHEN TAKING COUMADIN (WARFARIN). Also discontinue Vitamin C, Vitamin E, [place]-3 Fatty Acid, Fish Oil or [place], and [...] Noemi Brand Admit Date: [id number] MR #: [id number] : 1960 The H&P has been reviewed and the patient has been examined. I concur with the findings of the H&P. There are no significant changes. It is appropriate to proceed with the planned procedure. Lina Elizabeth MD 11/09/2017 6:56 AM * Rossana Reid DO - 10/21/2017 1:02 PM EST Formatting of this note may be different from the original. Assessment and Plan 1. Pre-op exam Preoperative medical risk stratification indicates that the patient is at acceptablerisk for elective/major surgery-11/09; LEFT TOTAL HIP ARTHROPLASTY ANTERIOR APPROACH [facility] Main OR pending laboratory. ECG 12 [...] acceptable cardiac risk based on the 2014 [employer]/Indian Heart Association (ACC/AHA) guideline on Perioperative Cardiovascular [...] Therapy and Prevention of Thrombosis, 9th ed: [employer] Evidence-Based Clinical Practice [...] 11/09; LEFT TOTAL HIP ARTHROPLASTY ANTERIOR APPROACH [facility] Main OR . Patient states she [...] History: Diagnosis Date Anemia Asthma Bipolar Disorder ([facility]) Cataract Deep vein thrombosis ([facility]) 1994 S/P IN LEG, RIGHT [...] Units, Oral, Every morning, TAKES 1 TABLET xxckrgh-iiwvzsxkso-ADZ-caff (jxcjdbuvma-ituwgba-kwnmfehg-codeine) capsule Take 1 capsule by mouth continuous [...] Subcutaneous, Every 12 hours Allergies Allergen Reactions [place] Other (See Comments) COMA Zoloft [Sertraline] Other [...] ST segment changes. in this encounter* Rossana Reid DO - 10/21/2017 1:02 PM EST Formatting of this note may be different from the original. Assessment and Plan 1. Pre-op exam Preoperative medical risk stratification indicates that the patient is at acceptablerisk for elective/major surgery-11/09; LEFT TOTAL HIP ARTHROPLASTY ANTERIOR APPROACH [facility] Main OR pending laboratory. ECG 12 [...] acceptable cardiac risk based on the 2014 [employer] Heart Association (ACC/AHA) guideline on Perioperative Cardiovascular [...] Therapy and Prevention of Thrombosis, 9th ed: [employer] Evidence-Based Clinical Practice [...] 11/09; LEFT TOTAL HIP ARTHROPLASTY ANTERIOR APPROACH [facility] Main OR . Patient states she [...] History: Diagnosis Date Anemia Asthma Bipolar Disorder ([facility]) Cataract Deep vein thrombosis ([facility]) 1994 S/P IN LEG, RIGHT [...] Units, Oral, Every morning, TAKES 1 TABLET utgzasy-prtxbbkuyb-SBH-caff (oicbzagxev-cidhzsf-cgueqzlp-codeine) capsule Take 1 capsule by mouth continuous [...] Subcutaneous, Every 12 hours Allergies Allergen Reactions [place] Other (See Comments) COMA Zoloft [Sertraline] Other [...] No Discharge Readiness Expected Discharge Date: 11/11/17 [facility] Disposition D/C Disposition: Home * Lucrecia Marte, [...] to Stand: Min Stand Pivot Transfers: Min Data Systems Manager: Walker Gait/Locomotion Gait Assistance: Contact guard Assistive [...] Accessible via walker Home Equipment: Cane, Walker, Loan Administrator (crutches) Additional Comments: did not use assistive device prior to admit Prior Level of Function Level of [place]: Independent with ADLs and functional transfers, Independent [...] ANTERIOR APPROACH; Surgeon: Lina Elizabeth MD; Location: [facility] Main OR; Service: Orthopedic CATARACT EXTRACTION [...] of Physical Therapy Plan * Ignacio Centeno RED LEAD BURNER - 11/09/2017 11:54 AM EST Patient LOC [...] - Cr 1.29. Seen by [facility]. Arguello ([facility]) this morning and patient to [...] CDI. Minimal Swelling. NVI. Moving the extremity. [place] and warm. Negative Saw's Sign. Cap refill less than 3 seconds. Psych: Mood and affect appropriate. Skin: No rashes; normal turgor. Intake/Output last 3 shifts: I/O last 3 completed shifts: In: 2771.2 [P.O.:2350; I.V.:221.2; IV Piggyback:200] Out: 3300 [Urine:3300] Results/Medications Reviewed 11/11/17 11:07 AM: Laboratory, Medications and Transcriptions * Op Note - Lina Elizabeth MD - 11/09/2017 4:37 PM [facility] [id number] 1960 DATE 11/09/2017 OPERATIVE REPORT SURGEON LINA ELIZABETH MD CANOE INSPECTOR FINAL ROSANGELA DUMONT PA-C There were no qualified [...] DVT prophylaxis. SPECIAL CONSIDERATIONS Rosangela Dumont, Physician Sustainable Landscape Architect, should be billed as office manager executive assistant since there were no qualified residents [...] correct. LINA ELIZABETH MD D 11/09/2017 08:58 [id number] T 11/09/2017 09:55 TJE/MODL cc Dr. Alexander Helms : * Op Note - Lina Elizabeth MD - 11/09/2017 8:58 AM EST [id number] * Brief Op Note - Lina Elizabeth MD - 11/09/2017 8:55 AM EST Formatting of this note may be different from the original. Brief Post Operative Note Patient Name: Noemi Brand : 1960 (57 y.o.) Date of Service: 11/09/2017 CSN: [id number] Procedure(s): LEFT TOTAL HIP ARTHROPLASTY ANTERIOR APPROACH Pre-Operative Diagnoses: * M16.12 Post-Operative Diagnoses: * same Surgeon(s) and Role: * Lina Elizabeth MD - Primary Anesthesiologist: Jn Cramer MD DESKTOP MANAGER: Jan Hill CRNA Lining Brusher: Ashley Salinas RN Physician Sustainable Landscape Architect: Rosangela Dumont PA-C Scrub Person: Thuy House RN: Kasandra Guerra RN Operative findings: oa Intra and immediate post-operative complications: none Type of anesthesia used: Spinal Estimated blood loss: 400 mL Estimated urine output: 125 mL Specimen(s): * No specimens in log * Implant(s): Implant Name Type Inv. Item Serial No. Credit Product Analyst Lot No. LRB No. Used Action LINER 32MM C FLAT HIGHCROSS MPACT - [id number] LINER 32MM C FLAT HIGHCROSS MPACT MEDACTA [id number] Left 1 Implanted SHELL 48MM 2HL ACET MPACT - [id number] SHELL 48MM 2HL ACET MPACT MEDACTA [id number] Left 1 Implanted STEM SZ2 STD FEM PROX COAT TI AMISTEM-H - [id number] STEM SZ2 STD FEM PROX COAT TI AMISTEM-H MEDACTA [id number] Left 1 Implanted HEAD 32MM +4 FEM BIOLOX DELTA MECTACER - [id number] HEAD 32MM +4 FEM BIOLOX DELTA MECTACER MEDACTA [id number] Left 1 Implanted Drain(s): Urethral Catheter Non-latex 16 Fr. (Active) Wound(s): Incision 11/09/17 Hip Left (Active) Lina Elizabeth MD 11/09/2017 8:55 AM in this encounter Ev Strickland RN - 10/21/2017 12:33 PM EST Nursing Notes (unrecognized section and content) Patient Instructions for [facility]: Prior to surgery: Please be sure to wear loose, comfortable clothing and non-skid shoes Bring your health insurance information and a photo ID, as well as your Living Will or Durable Power of Reclamation Furnace Operator for Healthcare if it is available to you. Bring your cane/walker any applicable assistive device. If you currently use a CPAP, please bring this device with you on the day of surgery. Bring a list of your medications with the name of the medication, dose and how often you are takingit. Be sure to include herbal preparations and gtll-oml-ejukmwm medications on this list. Do not eat [...] of lotions, perfumes or powders. All nail tajik is to be removed from fingernails and [...] the day of your surgery/procedure. Parking at [facility] is free. Please park in the lot in front of the main lobby. Enter the Main Entrance where a Vitamin Manager Liaison at the information desk will greet [...] of your surgery preparation process here at [facility]. It will provide you with additional [...] content) DATE CREATED AUTHOR 03/01/2018 [facility] DATE CREATED AUTHOR AUTHOR'S ORGANIZ ATION 09/04/2018 [facility] DATE CREATED AUTHOR AUTHOR'S ORGANIZ ATION 12/11/2021 [facility] DATE CREATED AUTHOR AUTHOR'S ORGANIZ ATION 02/12/2022 [facility] DATE CREATED AUTHOR AUTHOR'S ORGANIZ ATION 08/13/2022 [facility] DATE CREATED AUTHOR AUTHOR'S ORGANIZ ATION 07/23/2024 [facility] DATE CREATED AUTHOR AUTHOR'S ORGANIZ ATION 09/01/2024 [facility] DATE CREATED AUTHOR AUTHOR'S ORGANIZ ATION 03/26/2025 [facility] DATE CREATED AUTHOR AUTHOR'S ORGANIZ ATION 07/04/2025 [facility] DATE CREATED AUTHOR AUTHOR'S ORGANIZ ATION 07/05/2025 [facility] DATE CREATED AUTHOR AUTHOR'S ORGANIZ ATION 07/21/2025 [facility] DATE CREATED AUTHOR AUTHOR'S ORGANIZ ATION 07/24/2025 [facility] DATE CREATED AUTHOR AUTHOR'S ORGANIZ ATION 07/26/2025 [facility] Care Teams (unrecognized sec tion and content) Team MemberRelationshipSpecialtyStart DateEnd Date Alexander Chen PCP - General09/26/16 Team Status: Active Member Role Status Dates Alexander Chen DO Primary Care Provider Active Team Status: Inactive Member Role Status Dates Alexander Chen DO Primary Care Provider Active Carlie SimonsActive Team Status: Inactive Member Role Status Dates Alexander Chen DO Primary Care Provider Active Sta rt: October 04, 2023 End: October 04, 2023MattCarlie Culp ProviderActiveStart: October 04, 2023 End: October 04, 2023 Team Status: Inactive Member Role Status Dates Alexander Chen DO Primary Care Provider Active Sta rt: February 25, 2024 End: February 25, 2024Carlotta Stanley NP-CAttending ProviderActiveStart: February 25, 2024 End: February 25, 2024Team MemberRelationshipSpecialtyStart DateEnd Date Alexander Chen MD [address] [place] [address] PCP - GeneralInternal Rclkrjql00/10/23Team MemberRelationshipSpecialtyStart Date End Date Alexander Chen MD [address] [place] [address] PCP - GeneralInternal Uylvhhse83/10/23Team MemberRelationshipSpecialtyStart Date End Date Alexander Chen MD [address] [place] [address] PCP - GeneralInternal Dlqoduzf73/10/23Team MemberRelationshipSpecialtyStart Date End Date Alexander Chen MD [address] [place] [address] PCP - GeneralInternal Icytlbuj56/10/23Team MemberRelationshipSpecialtyStart Date End Date Alexander Chen MD [address] [place] [address] PCP - GeneralInternal Rloghxob39/10/23Team MemberRelationshipSpecialtyStart Date End Date Alexander Chen MD [address] [place] [address] PCP - GeneralInternal Nlnpuxdo68/10/23Team MemberRelationshipSpecialtyStart Date End Date Alexander Chen MD [address] [place] [address] PCP - GeneralInternal Vumjueyq39/10/23Team MemberRelationshipSpecialtyStart Date End Date Alexander Chen DO [address] [place] [address] PCP - General02/23/13 Nava Sanches [facility] Nurse - KaujyoBvsp06/4/24Team MemberRelationshipSpecialtyStart DateEnd Date Alexander Chen DO [address] [place] [address] PCP - General02/23/13 aNva Sanches C[facility] Nurse - NbiqjfHbrt91/4/24Team MemberRelationshipSpecialtyStart DateEnd Date Alexander Chen MD [address] [place] [address] PCP - GeneralInternal Xicrzfae39/10/23Team MemberRelationshipSpecialtyStart Date End Date Alexander Chen MD [address] [place] [address] PCP - GeneralInternal Bfbhffuu32/10/23Team MemberRelationshipSpecialtyStart Date End Date Alexander Chen DO [address] [place] [address] PCP - General02/23/13 Che Alandro [facility] Nurse - SignalLam/17/25Team MemberRelationshipSpecialtyStart DateEnd Date Alexander Chen DO [address] [place] [address] PCP - General02/23/13 Che Alaaureliaro CCM Nurse - SignalLamp1/17/25Team MemberRelationshipSpecialtyStart DateEnd Date Alexander Chen DO [address] [place] [address] PCP - General02/23/13 Che Alasandro [facility] Nurse - SignalLamp1/17/25Team MemberRelationshipSpecialtyStart DateEnd Date Alexander Chen DO [address] [place] [address] PCP - General02/23/13 Che Alasandro CCM Nurse - SignalLamp1/17/25Team MemberRelationshipSpecialtyStart DateEnd Date Alexander Chen DO [address] [place] [address] PCP - General02/23/13 Che Alasandro CCM Nurse - SignalLamp1/17/25Team MemberRelationshipSpecialtyStart DateEnd Date Alexander Chen MD PCP - GeneralInternal Kmjgmqsg62/10/23Team MemberRelationshipSpecialtyStart Date End Date Alexander Chen MD PCP - GeneralInternal Yfnxpgkg00/10/23Team MemberRelationshipSpecialtyStart Date End Date Alexander Chen DO [address] [place] [address] PCP - General02/23/13 Chesolis Plataro CCM Nurse - SignalLamp1/17/25Team MemberRelationshipSpecialtyStart DateEnd Date Alexander Chen DO [address] [place] [address] PCP - General02/23/13 Che Alasandro CCM Nurse - SignalLamp1/17/25Team MemberRelationshipSpecialtyStart DateEnd Date Alexander Chen, DO [address] [place] [address] PCP - General02/23/13 Che Alasandro CCM Nurse - SignalLamp1/17/25Team MemberRelationshipSpecialtyStart DateEnd Date Alexander Chen, DO [address] [place] [address] PCP - General02/23/13 Che Alasandro [facility] Nurse - SignalLamp1/17/25Team MemberRelationshipSpecialtyStart DateEnd Date Alexander Chen, DO [address] [place] [address] PCP - General02/23/13 Che Alasandro CCM Nurse - SignalLamp1/17/25Team MemberRelationshipSpecialtyStart DateEnd Date Alexander Chen, DO [address] [place] [address] PCP - General02/23/13 Che Alasandro CCM Nurse - SignalLamp1/17/25Team MemberRelationshipSpecialtyStart DateEnd Date Alexander Chen MD PCP - GeneralInternal Uuhveete35/10/23Team MemberRelationshipSpecialtyStart Date End Date Alexander Chen MD PCP - GeneralInternal Qqgyglti59/10/23Team MemberRelationshipSpecialtyStart Date End Date Alexander Chen MD PCP - GeneralInternal Eteezdcz28/10/23Team MemberRelationshipSpecialtyStart Date End Date Alexander Chen DO [address] [place] [address] PCP - General02/23/13 Che Alasandro CCM Nurse - SignalLamp1/1725Team MemberRelationshipSpecialtyStart DateEnd Date Alexander Chen DO [address] [place] [address] PCP - General02/23/13 Che Alasandro CCM Nurse - SignalLamp1/25Team MemberRelationshipSpecialtyStart DateEnd Date Alexander Chen MD PCP - GeneralInternal Sczqdmxi52/10/23Team MemberRelationshipSpecialtyStart Date End Date Alexander Chen DO [address] [place] [address] PCP - General02/23/13 Che Alasandro [facility] Nurse - SignalLamp1/17/25Team MemberRelationshipSpecialtyStart DateEnd Date Alexander Chen DO [address] [place] [address] PCP - General02/23/13 Che Alasandro [facility] Nurse - SignalLamp1/17/25Team MemberRelationshipSpecialtyStart DateEnd Date Alexander Chen, [address] [place] [address] PCP - General02/23/13 Chesolis Sosa [facility] Nurse - SignalLamp1/17/25Team MemberRelationshipSpecialtyStart DateEnd Date Alexander Chen, [address] [place] [address] PCP - General02/23/13 Che Angelandro [facility] Nurse - SignalLamp1/1725Team MemberRelationshipSpecialtyStart DateEnd Date Alexander Chen MD PCP - GeneralInternal Fpumjjgk94/10/23Team MemberRelationshipSpecialtyStart Date End Date Alexander Chen DO [address] [place] [address] PCP - General02/23/13 Che Sosa [facility] Nurse - SignalLamp1/1725Team MemberRelationshipSpecialtyStart DateEnd Date Alexander Chen MD PCP - GeneralInternal Ltcdtrwu81/10/23Team MemberRelationshipSpecialtyStart Date End Date Alexander Chen DO [address] [place] [address] PCP - General02/23/13 Che Sosa [facility] Goals (unrecognized section and content) Goals may be documented in a n alternate section Reason for Visit (unrecogniz ed section and content) ReasonCommentsWell Women VisitReasonCommentsMed RefillReasonCommentsThyroid ProblemReasonCommentsMNT - IndividualSpecialtyDiagnoses / ProceduresReferred By ContactReferred To ContactEndocrinology, Diabetes & Metabolism Diagnoses Type 2 diabetes mellitus without complication, without long-term current use of insulin ([facility]) Alexander Chen, DO [address] [place] [address] Phone: tel: fax: [facility] [address] [place] [address] Phone: tel: fax: Referral IDStatusReasonStart DateExpiration DateVisits RequestedVisits [id number] Review Specialty Services Required /[id number] FOR RECORDS PERTAINING TO PATIENTS WHO ARE [...] BE BASED ON THE PRIMARY CLINICAL RECORDS. [facility]. provides no warranty or guarantee of the accuracy or completeness of information in this document.
--- OUTSIDE RECORDS SUMMARY | 2025-08-20 07:26 | XMS_ITS | Clinical Summary ---
Author Organization [employer] tem Address [id number] [address] 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 SAYS SHE WENT INTO A COMA [place] AnaloguesOther (See Comments)High01/25/2017 COMA MilnacipranOther (See Comments)07/04/2021 Other reaction(s): Unknown GdiusaaorkrBcrsbXnifwb65/18/9483PttchxglmvJclleLehvfj66/15/2017 Chest Pain SevelamerHives,PgeherbxntpZnvr58/15/2017VortioxetineNausea And VomitingMedium 08/12/2018 Other reaction(s): GI Intolerance Medications MedicationSigDispense QuantityRefillsLast [...] NEEDED (RASH OR ITCHING) 60 g ctive albuterol (PROVENTIL HFA;VENTOLIN HFA) 90 mcg/actuation inhaler Indications:Mild persistent asthma without complicationUSE 2 INHALATIONS EVERY 6 HOURS NEEDED FOR WHEEZING 17 g 605Active fluticasone propion-salmeteroL (ADVAIR HFA) 230-21 mcg/actuation inhaler Indications:Mild persistent asthma without complicationUSE 2 INHALATIONS TWICE A DAY 36 g 5Active icosapent ethyL (VASCEPA) 1 gram capsule Indications:Mixed hyperlipidemiaTAKE 1 CAPSULE IN THE MORNING AND 1 CAPSULE BEFORE BEDTIME 180 capsule 5Active QUEtiapine (SEROquel) 50 mg tablet Take 1 tablet (50 mg total) by mouth nightly.11/15/2024tive UBRELVY 100 mg tablet Take 1 tablet by mouth.ctive hvyuverifd-vgbckufssy-rlg-cod (FIORICET WITH CODEINE) 88-854-24-30 mg per capsule Take 1 capsule by mouth every 6 (six) hours as needed.01/15/2025tive verapamiL (CALAN) 80 mg tablet Take 1 tablet (80 mg total) by mouth in the morning.ctive pantoprazole (PROTONIX) 40 mg EC tablet Indications:Gastroesophageal reflux disease, unspecified whether esophagitis presentTake 1 tablet (40 mg total) by mouth every morning before breakfast. TAKE 1 TABLET IN THE MORNING AND AT UVYASHF16/19/2025Active montelukast (SINGULAIR) 10 mg tablet Indications:Mild persistent asthma without complicationTAKE 1 TABLET DAILY 90 tablet 5Active warfarin (COUMADIN) 5 mg tablet Indications:Lupus anticoagulant disorderTake 1/2 to 1 tablet Once Daily as directed by [facility] Medication Management 90 tablet 3075Active valsartan (DIOVAN) 80 mg tablet Indications:Essential hypertensionTAKE 1 TABLET DAILY AT NOON 90 tablet 1085Active atorvastatin (LIPITOR) 80 mg tablet Indications:Mixed hyperlipidemiaTAKE 1 TABLET IN THE MORNING 90 tablet 3105Active levothyroxine (SYNTHROID, LEVOTHROID) 50 MCG tablet Indications:Hypothyroidism, unspecified typeTAKE 1 TABLET EVERY MORNING 90 tablet 5Active baclofen (LIORESAL) 10 mg tablet Indications:Cervical spondylosis with radiculopathyTAKE 1 TABLET FOUR TIMES A DAY 360 tablet 5Active metoclopramide (REGLAN) 10 mg tablet Indications:Gastroesophageal reflux disease, unspecified whether esophagitis presentTAKE 1 TABLET IN THE MORNING AND 1 TABLET BEFORE BEDTIME 180 tablet 5Active famotidine (PEPCID) 40 mg tablet Indications:Gastroesophageal reflux disease, unspecified whether esophagitis presentTAKE 1 TABLET IN THE MORNING 90 tablet 5Active folic acid (FOLVITE) 1 mg tablet Indications:Iron deficiency anemia, unspecified iron deficiency anemia typeTAKE 1 TABLET DAILY 90 tablet 5Active folic acid (FOLVITE) 1 mg tablet Indications:Iron deficiency anemia, unspecified iron deficiency anemia typeTAKE 1 TABLET DAILY 90 tablet Discontinued famotidine (PEPCID) 40 mg tablet Indications:Gastroesophageal reflux disease, unspecified whether esophagitis presentTAKE 1 TABLET IN THE MORNING 90 tablet Discontinued metoclopramide (REGLAN) 10 mg tablet Indications:Gastroesophageal reflux disease, unspecified whether esophagitis presentTAKE 1 TABLET IN THE MORNING AND 1 TABLET BEFORE BEDTIME 180 tablet /Discontinued Active Problems Patient Care Coordination No te Formatting of this note migh t be different from the original. HTN and Asthma Care Plan Patient barriers to better managing their health include: Physical limitations including reduced strength Nurse to instruct on: the purpose of your medications and the importance of adherence -SN assisting in med refill on Vit B12. IDA, RN 05/10/24 the importance of your care plan the importance of preventative screenings and what they mean to your health -discussed colonoscopy SA, RN -discussed tdap 01/25/25 SA, RN -discussed vaccines 03/09/25 SA, RN, 04/23/25 SA, RN -discussed upcoming colonoscopy 05/25/25 SA, RN proper use of your blood pressure meter, inhaler, pulse oximeter, and rescue medication -12/28/24 , RN -pt using inhaler PRN 01/25/25 SA, RN -discussed neb tx for asthma 03/09/25 , RN, 04/23/25 , RN your Hypertension and Asthma, its diagnosis and treatment -Discussed recent medication change and hypertension. Mailed htn action plan. 04/07/24 , NAVAL SURFACE FIRE SUPPORT PLANNER -Reviewed recent BP since BP med changes. Discussed need for refill on Valsartan. SN encouraged continued monitoring. 08/02/24 , NAVAL SURFACE FIRE SUPPORT PLANNER -Reviewed recent BP readings since adding in Valsartan 80 mg at noon. TE sent to PCP. 08/17/24 , NAVAL SURFACE FIRE SUPPORT PLANNER -Discussed directions on taking Valsartan. 08/18/24 , NAVAL SURFACE FIRE SUPPORT PLANNER -Reviewed recent BP readings. Reviewed hypertensive emergency. 09/01/24 , NAVAL SURFACE FIRE SUPPORT PLANNER -Reviewed recent BP readings and when to report to ER. Discussed patient increasing Reglan 10 mg from BID to TID. 09/07/24 , NAVAL SURFACE FIRE SUPPORT PLANNER the importance of recognizing blood spots in eyes, blurry vision, clammy skin, confusion, depression, dizziness, facial flushing, fatigue, and shortness of breath as a S&S of your Hypertension -discussed 09/29/24 SA, RN, 04/23/25 SA, RN -discussed recent BP readings 09/29/24 , RN -reviewed. Recent BP readings improved 11/01/24 SA, RN, 01/25/25 SA, RN -patient monitoring bp daily, discussed proper technique 03/09/25 , RN the importance of recognizing chest pains, chest tightness, increasing cough, shortness of breath, and wheezing as a S&S of your Asthma -pt reports improved SOB -discussed weather changes and sx 12/28/24 SA RN -08/17/25 SA RN Nurse to assist in: scheduling your appointments, as needed setting a goal to address risk of falling, continue respiratory treatments, continue with current treatment plans, create a safe home environment, do regular physical activity, get a blood pressure meter 04/07/24 AMBERLY, NAVAL SURFACE FIRE SUPPORT PLANNER, get enough sleep, and maintain oxygen levels -SN discussed BP monitoring, obtained readings and reported to PCP office. IDA, RN 08/28/24 Patient to verbalize understanding of: the importance of your care plan keeping a written list of your medications preventative screenings and what they mean to your health -12/28/24 , RN, your medications and the importance of adherence monitoring blood pressure 04/07/24 MCKAY GAMING, 06/16/24 ADDISON GAMINGN, 09/29/24 , RN, 04/23/25 SA RN monitoring heart rate monitoring oxygen levels your Hypertension, its diagnosis, process and treatment 04/07/24 ADDISON GAMINGN your Asthma, its diagnosis, process and treatment [...] activity get a blood pressure meter 04/07/24 ADDISON GAMINGN get enough sleep maintain oxygen levels reduce [...] 03/09/25 . RN -discussed foot care 04/23/25 KALEIGH TURNER Patient to verbalize understanding of: monitoring HbA1c [...] months, Patient will go to appointments with: Dope House Operator Helper Dentist Magnetic Resonance Imaging Director Primary Care Provider-completed 05/09/24 KALEIGH PRIETO Over the next 12 months, Patient will complete the following tests, immunizations, and preventativescreenings: Annual Wellness Visit-completed 05/09/24 IDA RN Tdap Vaccine Pap Smear COVID-19 Vaccination Eye Exam Flu vaccine 05/14/2024 Lab Work-completed 12/09/23 IDA RN 2023 Education 03/03/24 created CP, educated on CCM program, completed med rec, mailed CP letter. IDA RN 05/10/24 reinforced PCP OV orders. KALEIGH PRIETO 2024 Wellness Goals: [09/29/2024] RN Added: Over the next 12 months, Patient will go to appointments with: Neurologist 01/05/2025 , health promoter Provider 05/09/2025 Substation Operator Apprentice Over the next 12 months, Patient will complete the following tests, immunizations, and preventativescreenings: Annual Wellness Visit 07/03/25 KALEIGH TURNER COVID-19 Vaccination Declines Depression Screening 07/03/2025 SA RN Pap Smear 07/03/25 SA RN Tdap Vaccine 05/28/2025 Flu vaccine 05/28/20252024 Self Care Goals: -pt denies any self care goals 2024 Edcuation: -discussed neuro appt, new med, side effects and constipation 01/25/25 SA RN ProblemNoted DateDiagnosed DateAdenomatous polyp of transverse colon06/29/2025 Adenomatous polyp of sigmoid colon06/29/2025Personal history of adenomatous and serrated colon mygxhv0806/19/2025Obesity, hbsmnl6401/29/2025hronic deep vein thrombosis (DVT) of proximal vein of lower extremity, unspecified laterality 05/09/2024ipolar II ceyxagov09/17/2023Spondylosis of lumbar region without myelopathy or tiazdfqdgfris60/17/2023astroesophageal reflux ojwkfpm2703/29/2023 Qkaeyallujw06/17/2023ilateral zovdoqwj84/17/2023egeneration of lumbar intervertebral disc11/23/2022erebrovascular accident (CVA)05/20/2022resence of vena cava knawsj8705/20/20229301Ftzoxgcakabhert12/07/2022Fibromyalgia, primary 05/20/20220236Igggalopusdr29/07/8270Paoyvrvtxcsohm54/07/2022Generalized jzurrcdkilaked84/07/2022Hypothyroidism due to Cristi's eqvuolgdqku54/07/2022 Cervical stenosis of spinal canal12/08/2021ltered mental pnvwzz9912/07/2021Long term (current) use of xxeketfnsvupke17/14/5562Blvwpyxpbgzo72/16/2022Delirium 10/29/2021History of 2019 novel coronavirus disease (COVID-19)10/29/2021Hematoma 2Refractory migraine with aura04/29/2021Occipital hqyzsxkzp31/17/2021 Cognitive bbmgotjjuq23/17/2021ervical spondylosis with sxhudugttqhtz58/23/2020 Uaxddtyf09/20/8684Gmlzfuhg42/05/2019Thoracic spinal jksgkuwq17/12/2019 Overview (05/20/2022): Added automatically from request for surgery [id number] Obesity (BMI 30.0-34.9)02/15/2019Chronic afyqzyhv06/11/2019Primary osteoarthritis of right hip08/30/2018Panic /24/2018Generalized anxiety jwvrpmeo59/24/2018Lumbar lmnfecpuvueqp48/03/2018Osteoarthritis of left hip 11/09/2017 Overview (05/20/2022): Last Assessment & Plan: POD [...] - Cr 1.29. Seen by Dr. Arguello ([facility]) this morning and patient to follow-up [...] elevated and to limit narcotics. Chronic antral wdmkajyfi37/20/2017Mild persistent hjzaon0106/16/2016Acquired blindness of one eye01/15/2016Other optic atrophy, right eye01/15/2016Personal history of DVT (deep vein thrombosis)09/05/2013Lupus anticoagulant disorder 08/30/2013Lupus agfomwtzrieoy55/16/2013 Resolved Problems ProblemNoted DateDiagnosed DateResolved DateSyndrome of inappropriate vasopressin hhvitifqj50/2216Zslyuz32/14/202203/History of fall/tage 3a chronic kidney epvnqei33/30//cute metabolic uvfxoonowhrcbo329942Smvowqavadjdunq83/15/ Iron deficiency bebhvv34 Encounters DateTypeDepartmentCare ZmwsTsdvepblzkd75/05/2025Patient Outreach [facility] Internal Medicine - Family Medicine [address] [place] [address] Don Hobson DO Essential hypertension (Primary Dx); Mild persistent asthma without jwymsyrtcwad53/01/5739Scyyvk03/21/2025 8:30 AM ESTFollow Up Anticoagulation [facility] Medication Management [address] [place] [address] detention (current) use of 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 (Primary Dx)08/03/20252136Ndwlsa38/19/2025 Refill [facility] - [facility] [address] [place] [address] Don Hobson, Iron deficiency anemia, unspecified iron deficiency anemia type07/31/2025Refill [facility] - Family [facility] [address] [place] [address] Don Hobson, Gastroesophageal reflux disease, unspecified whether esophagitis present 07/26/2025Patient Outreach [facility] - [facility] [address] [place] [address] Don Hobson, Essential hypertension (Primary Dx); Mild persistent asthma without rientxxldbyy81/06/2025 10:30 AM ESTFollow Up Anticoagulation [facility] Medication Management [address] [place] [address] detention (current) use of 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 (Primary Dx)07/19/20250115Hcywlg88/04/2025 Refill [facility] [address] [place] [address] Don Hobson, Cervical spondylosis with vsvxinzvtfuoc95/31/2025 11:45 AM EDTFollow Up Anticoagulation [facility] Medication Management [address] [place] [address] 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 (Primary Dx)07/13/20252326Bndzfs44/27/2025 Patient Outreach [facility] Internal [facility] - [facility] [address] [place] [address] Don Hobson, Essential hypertension (Primary Dx); Mild persistent asthma without myiqupmxrjvz72/27/2025Refill [facility] - Family Medicine [address] [place] [address] Don Hobson, Hypothyroidism, unspecified type07/06/2025Results Follow-Up [facility] - Endoscopy [address] [place] [address] Don Hobson, DO Surgical Qycrjuwxv84/21/2025 2:00 PM EDTOffice Visit [facility] Internal Medicine - Family Medicine [address] [place] [address] Don Hobson, Encounter for subsequent annual wellness visit (AWV) in Medicare patient (Primary Dx); Encounter for screening mammogram for malignant neoplasm of psuzxm5307/03/2025 9:00 AM EDTFollow Up Anticoagulation [facility] Medication Management [address] [place] [address] 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 (Primary Dx)07/03/2025Telephone [facility] Internal Medicine - Family Medicine [address] [place] [address] Rosario Ferguson, WORLD LANGUAGE TEACHER 07/03/20254021Dppcgq30/20/2025Refill [facility] Internal Medicine - Family Medicine [address] [place] [address] Don Hobson, Mixed xfxjrwfaktdwus37/17/2025 12:30 PM EDT - 06/29/2025 1:30 PM EDTSurgery [facility] - Endoscopy [address] [place] [address] Don Hobson, COLONOSCOPY DIAGNOSTIC / SCREENING [G0121 +1 more]06/29/2025 11:41 AM EDT - 06/29/2025 2:02 PM EDTHospital Encounter [facility] - [facility]oscopy [address] [place] [address] Don Hobson, Personal history of adenomatous and serrated colon polyps (Primary Dx); Screen for colon cancer; Adenomatous polyp of transverse colon; Adenomatous polyp of sigmoid colon Discharge Disposition: Home06/29/20254346Yqzgga18/13/2025Orders Only [facility] Internal Medicine - Family Medicine [address] [place] [address] Don Hobson, DO Personal history of adenomatous and serrated colon polyps (Primary Dx)06/25/2025 Telephone [facility] Internal Medicine - Family Medicine [address] [place] [address] Chel Baugh CMA 06/15/2025Telephone [facility] - Pharmacy Medication Management [address] [place] [address] Medication Management, [facility] 06/11/2025Telephone [facility] [address] [place] [address] Sony Sampson CMA 06/07/2025 10:30 AM EDTFollow Up Anticoagulation [facility] Medication Management [address] [place] [address] detention (current) use of 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 (Primary Dx)06/07/20258802Ciyelt62/16/2025 Telephone [facility] - Pharmacy Medication Management [address] [place] [address] Kimber Pantoja MA 05/25/2025Patient Outreach [facility] Internal Medicine Family Medicine [address] [place] [address] Don Hobson, Essential hypertension (Primary Dx); Mild persistent asthma without krmjybieuhaq66/08/2025Telephone [facility] Internal Medicine Family Medicine [address] [place] [address] Magda Flanagan CMA from Last 3 Months Immunizations ImmunizationAdministration DatesNext DueCOVID-19, mRNA, LNP-S, PF, 100mcg/0.5mL Dose01/16/2021,01/14/2021,01/13/2021,12/19/2020,12/18/2020Influenza (IM) Preservative Free06/14/2017,06/10/2015Influenza, Im Trivalent Preservative 2020,06/03/2020Influenza, Injectable, Ncdxtqmpbqxx69/01/2018Influenza, Injectable, quadrivalent (PF)07/23/2023,05/10/2019,06/26/2018Influenza, Trivalent, Jysvrsuuoe47/07/2024Influenza, Qqllgpgpuqz42/02/2017,06/13/2017 Pneumococcal Conjugate 13-Mqeqcd2903/08/2018Zoster Vaccine Bigvpsstklt43/15/2019, 04/25/2019 Family History Medical HistoryRelationNameCommentsDeep vein thrombosisBrotherGlaucomaBrother HyperlipidemiaBrotherDeep vein thrombosisFatherHeart diseaseFatherHyperlipidemia FatherHypertensionFatherOtherFatherReactive Airway DiseaseThyroid cancerFather HypertensionMaternal GrandfatherGlaucomaMaternal GrandmotherDiabetesMotherHeart diseaseMotherHypertensionMotherKidney failureMotherHeart attackPaternal GrandmotherHypertensionPaternal GrandmotherBreast cancerNeg HxRelationNameStatus CommentsBrotherFatherMaternal GrandfatherMaternal GrandmotherMotherPaternal Grandmother Social History Tobacco UseTypesPacks/DayYears UsedDateSmoking Tobacco: NeverSmokeless Tobacco: NeverAlcohol UseStandard Drinks/WeekCommentsNo0 (1 standard drink = 0.6 oz pure alcohol)[facility] UtilitiesAnswerDate RecordedIn the past 12 months has the [employer], gas, oil, or water [employer] threatened to shut off services in your home?No 05/09/2024Overall Financial Resource Strain (CARDIA)AnswerDate RecordedHow hard is it for you to pay for the very basics like food, housing, medical care, and heating?Not hard at all05/06/2023HQ-2AnswerDate RecordedTotal Lpatg513 Social Connection and Isolation PanelAnswerDate RecordedIn a typical week, how many times do you talk on the phone with family, friends, or neighbors?More than three times a week07/03/2025How often do you get together with friends or relatives?More than three times a week07/03/2025How often do you attend rastafari or adventist services?Never07/03/2025Do you belong to any clubs or organizations such as rastafari groups, unions, fraternal or athletic groups, or school groups?No 07/03/2025How often do you attend meetings of the clubs or organizations you belong to?Never07/03/2025re you , , , , never , or living with a partner?Wpnemnm1707/03/2025UDIT-CAnswerDate RecordedQ1: How often do you have a drink containing alcohol?Never07/03/2025Q2: How many drinks containing alcohol do you have on a typical day when you are drinking? Patient does not drink07/03/2025Q3: How often do you have six or more drinks on one occasion?Never07/03/2025[facility] [place] [facility] Occup[facility] Health - Occupational Stress QuestionnaireAnswerDate RecordedDo you feel stress - tense, restless, nervous, or anxious, or unable to sleep at night because yourmind is troubled all the time - these days?Not at all07/03/2025Exercise Vital SignAnswer Date RecordedOn average, how many days per week do you engage in moderate to strenuous exercise (like a brisk walk)?5 days07/03/2025On average, how many minutes do you engage in exercise at this level?30 min07/03/2025PRAPARE - TransportationAnswerDate RecordedIn the past 12 months, has lack of transportation kept you from medical appointments or from getting medications?No 07/03/2025In the past 12 months, has lack of transportation kept you from meetings, work, or from getting things needed for daily living?No07/03/2025 Housing InstabilityAnswerDate RecordedAre you worried or concerned that in the next two months you may not have stable housing that you own, rent or stay in as a part of a household?No05/09/2024hildcareAnswerDate RecordedDo problems getting housekeeper child care make it difficult for you to work or study?No07/03/2025 EmploymentAnswerDate RecordedDo you need help finding a local career center and/or a training program?No07/03/2025Hunger ScreeningAnswerDate RecordedWithin the past 12 months we worried whether our food would run out before we got money to buy more.Never True07/03/2025Within the past 12 months the food we bought just didn't last and we didn't have money to get more.Never True07/03/2025 Purpose - LifeAnswerDate RecordedI have a purpose and direction in my life.Agree 07/03/2025CommentsNoSex and Gender InformationValueDate RecordedSex Assigned at BirthNot on fileLegal WcrBtnxib89/06/2015 11:30 AM EDTGender IdentityNot on fileSexual OrientationNot on file Last Filed Vital Signs Vital SignReadingTime TakenCommentsBlood Hvaaifpy044/7607/03/2025 1:45 PM EDT Jvlub858806/29/2025 1:50 PM HSJGjpvbxrgmur05.4 ??C (97.5 ??F)06/29/2025 1:37 PM EDTRespiratory Aiqn0712 1:50 PM EDTOxygen Qbngflrbfb52%06/29/2025 1:50 PM EDTInhaled Oxygen Concentration--Ymuyor53.4 kg (206 lb)07/03/2025 1:45 PM EDT Ftnygn881.1 cm (5' 5 )07/03/2025 1:45 PM EDTBody Mass Index34.281 1:45 PM EDT Plan of Treatment DateTypeDepartmentCare Team (Latest Contact Info)Vlzrzzbcgtj00/19/2025 9:15 AM ESTFollow Up Anticoagulation [facility] - [facility] Medication Management [address] [place] [address] 07/09/2026 10:00 AM EDTOffice Visit [facility] Internal Medicine - Family Medicine [address] [place] [address] Health MaintenanceDue DateLast DoneCommentsDiabetic Ophthalmology Exam1961 Adult BMI Follow Up Plan1979Diabetic Foot Exam1979DTaP,Tdap and Td Vaccines (1 - Tdap)1980Pap Smear1982RSV ( or age 60+ yrs) (1 - Risk 60-74 years 1-dose series)1COVID-19 Vaccine (6 - 2024- season) /02/2021, 01/14/2021, 01/13/2021, Additional history existsInfluenza Hnmmpiz84/03/2024, 07/23/2023, 2020, Additional history exists Tobacco Wqfmqnelz87Statin Use: Igdwiwhb44 Adult BMI Phzhvsyzs83Depression Wyohettvl74 Zoster (Shingles) IiueowmCgzykvmco46/15/2019, 04/25/2019 Goals GoalPatient Goal TypeAssociated ProblemsRecent ProgressPatient-Stated?Author Lashawn Lucio LSW Note: Evaluation of progress towards goal: transfer to [facility] med adjustments Medical Devices Not on file Procedures Procedure NamePriorityDate/TimeAssociated DiagnosisCommentsCOMPLEMENT PROFILE (C3 AND C4)Juypmii4308/13/2025 8:58 AM EST Systemic disorders of connective tissue in other diseases classified elsewhere Primary generalized (osteo)arthritis Other usp (current) drug therapy COMPLEMENT ACTIVITY TOTAL, (CH50)Vmpckbd6208/13/2025 8:58 AM EST Systemic disorders of connective tissue in other diseases classified elsewhere Primary generalized (osteo)arthritis Other kitchen steward/stewardess (current) drug therapy POSZDJMQZCEngxxjl10/01/2025 8:58 AM EST Systemic disorders of connective tissue in other diseases classified elsewhere Primary generalized (osteo)arthritis Other usp (current) drug therapy ERYTHROCYTE SEDIMENTATION RATE (ESR)Avulrot1508/13/2025 8:58 AM EST Systemic disorders of connective tissue in other diseases classified elsewhere Primary generalized (osteo)arthritis Other kitchen steward/stewardess (current) drug therapy CBC WITH AUTO JSFKCCCMHHBMUjmtbnj97/01/2025 8:58 AM EST Systemic disorders of connective tissue in other diseases classified elsewhere Primary generalized (osteo)arthritis Other usp (current) drug therapy COMPREHENSIVE METABOLIC PQRQZRdcthwg03/01/2025 8:58 AM EST Systemic disorders of connective tissue in other diseases classified elsewhere Primary generalized (osteo)arthritis Other usp (current) drug therapy POCT PROTIME / ZSXSlxchvw53/21/2025 8:32 AM EST 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 POCT PROTIME / LSNGeiiimt97/06/2025 10:32 AM EST detention (current) use of 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 POCT PROTIME / HEKKptmvjy85/31/2025 11:48 AM EDT 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 POCT PROTIME / RYQPjkldnm05/21/2025 8:51 AM EDT detention (current) use of 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 SURGICAL FSUIKTKEDAelpeek60/17/2025 1:11 PM EDT Screen for colon cancer AL COLONOSCOPY FLX DX W/COLLJ SPEC WHEN PFRMD1 12:20 PM EDT Screen for colon cancer AL COLON CA SCRN NOT HI RSK IND06/29/2025 12:20 PM EDT Screen for colon cancer PROVATION WMBCOVHYLYYVyecywn89/17/2025 11:45 AM EDT HOLNOVBUBWY91/17/2025 11:37 AM EDT POCT PROTIME / WNEAuyxnoo27/25/2025 10:14 AM EDT detention (current) use of 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 from Last 3 Months Results * Complement Activity Total, (CH50) (08/13/2025 8:58 AM EST)ComponentValueRef RangeTest MethodAnalysis TimePerformed AtPathologist SignatureCOMPLEMENT TOTAL 81.838.7 - 89.9 U/mL08/15/2025 1:49 PM [facility] ValveXchangeComment: Normal activity in total complement functional assay [...] complement alternate pathway functional (AH50, test code 3279389) activity suggests defects in the alternate pathway. REFERENCE INTERVAL: Complement Activity Total, (CH50) ? 38.6 U/mL or less ..........Low ? 38.7-89.9 U/mL .............Normal ? 90.0 U/mL or greater .......High Performed By: [facility] [address] [place] [address] District Customs Director: Abdullahi Matthew MD, PhD CLIA Number: [id number] Specimen (Source)Anatomical Location / LateralityCollection Method / Volume Collection TimeReceived TimeBloodVenous blood / UnknownVenipuncture / Unknown 08/13/2025 8:58 AM EST08/13/2025 8:58 AM EST Narrative Authorizing ProviderResult TypeResult StatusR[facility] LOCATOR-FNPLAB BLOOD ORDERABLESFinal ResultPerforming OrganizationAddressCity/State/ZIP Code Phone Number [employer] [address] [place] [address], * Erythrocyte Sedimentation Rate (ESR) (08/13/2025 8:58 AM EST)ComponentValueRef RangeTest MethodAnalysis TimePerformed AtPathologist SignatureESR, Erythrocyte Sedimentation Rate40 - 30 mm/08/13/2025 1:32 PM [facility] LABORATORYSpecimen (Source)Anatomical Location / LateralityCollection Method / VolumeCollection TimeReceived TimeBloodVenous blood / UnknownVenipuncture / Plbplqh1608/13/2025 8:58 AM EST08/13/2025 8:58 AM EST Narrative Authorizing ProviderResult TypeResult StatusAt[facility] Health Providence [facility]yer LOCATOR-FNPLAB BLOOD ORDERABLESFinal ResultPerforming OrganizationAddressCity/State/ZIP Code Phone Number [facility] [address] [place] [address], * (ABNORMAL) Complement profile (C3 AND C4) (08/13/2025 8:58 AM EST)Component ValueRef RangeTest MethodAnalysis TimePerformed AtPathologist Signature COMPLEMENT E184225 - 184 mg/dL08/13/2025 1:58 PM [facility] LABORATORYCOMPLEMENT C456(H)16 - 47 mg/dL08/13/2025 1:58 PM [facility] LABORATORYSpecimen (Source)Anatomical Location / LateralityCollection Method / VolumeCollection TimeReceived TimeBloodVenous blood / Unknown Venipuncture / Jdotosi6608/13/2025 8:58 AM EST08/13/2025 8:58 AM EST Narrative Authorizing ProviderResult TypeResult StatusJoCount includes the [facility]yer LOCATOR-FNPLAB BLOOD ORDERABLESFinal ResultPerforming OrganizationAddressCity/State/ZIP Code Phone Number [facility] [address] [place] [address], * (ABNORMAL) CBC auto differential (08/13/2025 8:58 AM EST)ComponentValueRef RangeTest MethodAnalysis TimePerformed AtPathologist SignatureWBC6.54 - 11 10^9/L110/14/2024 1:37 PM [facility] LABORATORYRBC Count4.37 3.8 - 5.2 10^12/L110/14/2024 1:37 PM [facility] Oyltdrrvem68.411.7 - 15.5 g/dL08/13/2025 1:37 PM [facility] PPIFNBWSABXtszopokfa36.235 - 47 %08/13/2025 1:37 PM [facility] WTMWPHSXZKJQR6763 - 100 fL08/13/2025 1:37 PM [facility] YPSNPMXYNFUEW16.627 - 34 pg08/13/2025 1:37 PM [facility] GZDSRVDYNZRLBD57.332 - 36 g/dL08/13/2025 1:37 PM [facility] LXINBCBRQWXLP86.1(H)11.5 - 15 %08/13/2025 1:37 PM [facility] LABORATORYPlatelet Fejzz953308 - 450 10^9/L110/14/2024 1:37 PM [facility] LABORATORYMPV8.37 - 12 fL08/13/2025 1:37 PM [facility] LABORATORYNeutrophils %66.1%08/13/2025 1:37 PM [facility] LABORATORYLymphocytes %21.9%08/13/2025 1:37 PM [facility] LABORATORYMonocytes %10.5%08/13/2025 1:37 PM [facility] LABORATORYEosinophils %1.0%08/13/2025 1:37 PM [facility] LABORATORYBasophils %0.5%08/13/2025 1:37 PM [facility] LABORATORYNeutrophils Absolute (A)4.31.5 - 6.6 10^9/L 08/13/2025 1:37 PM [facility] LABORATORYLymphocytes Absolute 1.41.0 - 3.5 10^9/L110/14/2024 1:37 PM [facility] Monocytes Absolute0.70.0 - 0.9 10^9/L110/14/2024 1:37 PM [facility] LABORATORYEosinophils Absolute0.10.0 - 0.4 10^9/L110/14/2024 1:[address] [facility] LAB[facility]ORYBasophils Absolute0.00.0 - 0.2 10^9/L 08/13/2025 1:37 PM [facility] LABORATORYDifferential Type AUTOMATED DWJZXLFAUFZZ90/01/2025 1:37 PM [facility] LABORATORYSpecimen (Source)Anatomical Location / LateralityCollection Method / VolumeCollection TimeReceived TimeBloodVenous blood / UnknownVenipuncture / Rnwxugw3008/13/2025 8:58 AM EST08/13/2025 8:58 AM EST Narrative Authorizing ProviderResult TypeResult StatusJodi Candi Obermeyer LOCATOR-FNPLAB BLOOD ORDERABLESFinal ResultPerforming OrganizationAddressCity/State/ZIP Code Phone Number [facility] [address] [place] [address], * (ABNORMAL) Urinalysis (08/13/2025 8:58 AM EST)ComponentValueRef RangeTest MethodAnalysis TimePerformed AtPathologist SignatureCOLORYellowYellow 08/13/2025 1:36 PM [facility] LABORATORYTURBIDITYClearClear 08/13/2025 1:36 PM [facility] LABORATORYSPECIFIC GRAVITY1.021 1.003 - 1.9465608/13/2025 1:36 PM [facility] LABORATORYNITRITE RbbjsxqtXmqipaxk38/01/2025 1:36 PM [facility] PH,URINE6.05.0 - 8.512 1:36 PM [facility] LEUKOCYTE ESTERASETrace(A)Awghcjsd66/01/2025 1:36 PM [facility] LABORATORYPROTEINTrace(A)Pvlhouyt96/01/2025 1:36 PM [facility] LABORATORYKETONES (URINE)VbazqbwjNwapntji00/01/2025 1:36 PM [facility] LABORATORYUROBILINOGEN<1.1 eu/dL<1.1 eu/dL08/13/2025 1:36 PM [facility] LABORATORYBILIRUBIN (URINE)NegativeNegative 08/13/2025 1:36 PM [facility] LABORATORYBLOOD/HGBNegative Ysdghpgd53/01/2025 1:36 PM [facility] LABORATORYCA OXALATE CRYSTALSPresent(A)None08/13/2025 1:36 PM [facility] LABORATORYMUCOUSPresent(A)None08/13/2025 1:36 PM [facility] LABORATORYR.B.CELLS00 - 512 1:36 PM [facility] LABORATORYSQUAMOUS EPITHELIUM<10 - 1:36 PM [facility] LABORATORYW.B.CELLS30 - 1:36 PM [facility] LABORATORYGLUCOSE (URINE)WkykdbpeLgnxxooe14/01/2025 1:36 PM [facility] LABORATORYSpecimen (Source)Anatomical Location / LateralityCollection Method / VolumeCollection TimeReceived TimeUrineCollection / Gcjwvze9108/13/2025 8:58 AM EST08/13/2025 8:58 AM EST Narrative Authorizing ProviderResult TypeResult StatusJodi Candi Obermeyer LOCATOR-FNPURINE ORDERABLESFinal ResultPerforming OrganizationAddressCity/State/ZIP CodePhone Number [facility] [address] [place] [id number], * (ABNORMAL) Comprehensive metabolic panel (08/13/2025 8:58 AM EST)Component ValueRef RangeTest MethodAnalysis TimePerformed AtPathologist SignatureSODIUM 326794 - 146 mmol/L110/14/2024 1:58 PM [facility] POTASSIUM4.53.5 - 5.0 mmol/L110/14/2024 1:58 PM [facility] DREWYZHYCUIRDVUETB7827 - 109 mmol/L110/14/2024 1:58 PM [facility] LABORATORYCARBON ZMAAFNC80(H)22 - 32 mmol/L110/14/2024 1:58 PM [facility] LABORATORYANION GAP85 - 15 mmol/L110/14/2024 1:[address] [facility] LABORATORYBLOOD UREA RWGKNAYJ532 - 27 mg/dL08/13/2025 1:58 PM [facility] LABORATORYCREATININE0.940.40 - 1.00 mg/dL 08/13/2025 1:58 PM [facility] LABORATORYComment:METHOD TRACEABLE TO IDMS GADDPNMWITTOLDK285(H)65 - 99 mg/dL08/13/2025 1:[address] [facility] LABORATORYCALCIUM9.98.5 - 10.5 mg/dL08/13/2025 1:58 PM [facility] LABORATORYTOTAL PROTEIN7.06.0 - 8.0 g/dL 08/13/2025 1:58 PM [facility] LABORATORYALBUMIN4.33.2 - 5.3 g/dL08/13/2025 1:58 PM [facility] LABORATORYALKALINE UMVMFZQZCVO8207 - 130 U/L110/14/2024 1:58 PM [facility] HRXJOMNJIWMCB37<=41 U/L110/14/2024 1:58 PM [facility] HAWMBCFMHFRET88<=31 U/L110/14/2024 1:58 PM [facility] LABORATORYBILIRUBIN,TOTAL0.30.3 - 1.2 mg/dL08/13/2025 1:58 PM [facility] LABOR[facility]ORYEGFR Non-Race Yyoxiujrd38>=60 ml/min/1.73sq.m 08/13/2025 1:58 PM [facility] LABORATORYComment: Reported eGFR is based on the CKD-EPI 2020 equation that does not use a race coefficient. Specimen (Source)Anatomical Location / LateralityCollection Method / Volume Collection TimeReceived TimeBloodVenous blood / UnknownVenipuncture / Unknown 08/13/2025 8:58 AM EST08/13/2025 8:58 AM EST Narrative Authorizing ProviderResult TypeResult StatusJodi Bradley Obermeyer LOCATOR-FNPLAB BLOOD ORDERABLESFinal ResultPerforming OrganizationAddressCity/State/ZIP Code Phone Number [facility] [address] [place] [address], * (ABNORMAL) POCT Protime / INR (08/03/2025 8:32 AM EST) Only the most recent of5 resultswithin the time period is included. ComponentValueRef RangeTest MethodAnalysis TimePerformed AtPathologist Signature INR2.4(A)0.8 - 1.2MANUALLY TRANSCRIBED RESULTSSpecimen (Source)Anatomical Location / LateralityCollection Method / VolumeCollection TimeReceived Time 08/03/2025 8:32 AM EST Narrative Authorizing ProviderResult TypeResult StatusProm[facility] Medication ManagementPOINT OF CARE TEST ORDERABLESFinal ResultPerforming Organization AddressCity/State/ZIP CodePhone Number MANUALLY TRANSCRIBED RESULTS * Surgical Pathology (06/29/2025 1:11 PM EDT)ComponentValueRef RangeTest Method Analysis TimePerformed AtPathologist SignatureCase ReportSurgical Pathology Report ? Case: [id number] ? Authorizing Provider: ??Don Hobson, DO ? Collected: ? 06/29/2025 1311 ? Ordering Location: ? [facility] ? Received: ?06/29/2025 1448 ? [facility] - ? Endoscopy ? Pathologist: ? Jen Abbott MD ? Specimens: ?? 1) - Colon, Polyp at 75cm; hot snare ? 2) - Colon, Polyp X2 at 70cm; hot snare ? 3) - Colon, Polyp at 70; Hot Snare ? 4) - Colon, Polyp at 60; cold biopsy ? 5) - Colon, Polyp at 40; hot snare ?07/06/2025 12:29 PM [facility] LABFinal Diagnosis1. Colon at 75 cm, polypectomy: Fragments of tubular adenoma. 2. Colon at 70 cm, polypectomy: Tubular adenomas. 3. Colon at 70 cm, polypectomy: Fragments of tubular adenoma. 4. Colon at 60 cm, polypectomy: Tubular adenoma. 5. Colon at 40 cm, polypectomy: Fragments of tubular adenoma.07/06/2025 12:29 PM [facility] at 1229 EDTGross Description1. Received in formalin labeled CATHIE, colon polyp at 75 cm; hot snare are multiple monaco feathery polypoid fragments mixed with vegetative material, 1.9 x 0.6 x 0.1 cm in aggregate. The specimen is filtered and submitted entirely in a single cassette. (1,ns,[id number], m1) SS 2. Received in formalin labeled CATHIE, colon polyp x 2 at 70 cm; hot snare are multiple monaco feathery polypoid fragments mixed with scant vegetative material, 2.7 x 0.7 x 0.1 cm in aggregate. The specimen is filtered and submitted entirely in a single cassette. (1,ns,[id number], m1) SS 3. Received in formalin labeled CATHIE, colon polyp at 70; hot snare are multiple monaco feathery polypoid fragments, 1.3 x 1.0 x 0.1 cm in aggregate. The specimen is filtered and submitted entirely in a single cassette. (1,ns,[id number], m1) SS 4. Received in formalin labeled CATHIE, colon polyp at 60; cold biopsy is 1 monaco polypoid fragment 0.2 cm in greatest dimension. The specimen is filtered and submitted entirely in a single cassette. (1,ns,[id number], m1) SS 5. Received in formalin labeled CATHIE, colon polyp at 40; hot snare are multiple monaco feathery polypoid fragments mixed with vegetative material, 2.2 x 0.6 x 0.1 cm in aggregate. The specimen is filtered and submitted entirely in a single cassette. (1,ns,[id number], m1) SS 07/06/2025 12:29 PM [facility] LABORATORYEmbedded Images 07/06/2025 12:29 PM [facility] LABSpecimen (Source)Anatomical Location / LateralityCollection Method / VolumeCollection TimeReceived Time TissueColon structure / Sttwrnv8806/29/2025 1:11 PM EDT1 2:48 PM EDT Comment:Pre-op diagnosis: screeningTissue specimen (specimen)Colon structure / Tsjjvjm6706/29/2025 1:12 PM EDT1 2:48 PM EDTComment:Pre-op diagnosis: screeningTissue specimen (specimen)Colon structure / Ovlhbrn1206/29/2025 1:16 PM EDT10/ 2:48 PM EDTComment:Pre-op diagnosis: screeningTissue specimen (specimen)Colon structure / Qqcytsx3106/29/2025 1:20 PM EDT1 2:48 PM EDTComment:Pre-op diagnosis: screeningTissue specimen (specimen)Colon structure / Bibdaer1906/29/2025 1:27 PM EDT1 2:48 PM EDTComment:Pre-op diagnosis: screening Narrative Authorizing ProviderResult TypeResult Erika Hobson DOPATHOLOGY/CYTOLOGY ORDERABLESFinal ResultPerforming OrganizationAddressCity/State/ZIP CodePhone Number [facility] [address] [place] [address], [facility] [address] [place] [address], * Colonoscopy Report (06/29/2025 11:45 AM EDT)Specimen (Source)Anatomical Location / LateralityCollection Method / VolumeCollection TimeReceived Time Narrative SYSTEMGENERATED, DOCUMENTATION - 06/29/2025 11:45 AM EDT This order has been auto-finalized for image and report archival in PACs. *For full report details, please reach out to your physician. ??This image is visible to you in MyChart.* Authorizing ProviderResult TypeResult Erika Hobson DOIMG OR IMG ORDERABLES Final Result * Colonoscopy (06/29/2025 11:37 AM EDT)Specimen (Source)Anatomical Location / LateralityCollection Method / VolumeCollection TimeReceived Time06/29/2025 11:37 AM EDT Narrative PM CARDIOVASCULAR - 07/03/2025 10:50 AM EDT [facility] Patient Name: Noemi Caballero ?? Procedure Date No Time: 06/29/2025 ?? CSN : [id number] Date of : 1960 Admit Type: Outpatient Age: 65 Room: [place] [address] Gender: Female Note Status: Load Dispatcher Override Attending MD: Don Hobson , DO, Procedure: ? Colonoscopy Providers: ? Don Hobson DO Referring MD: ?Don Hobson DO Procedure: ? After I obtained informed consent, the scope was ? passed under direct vision. Throughout the procedure, ? the patient's blood pressure, pulse, and oxygen ? saturations were monitored continuously. The OLYMPUS ? PCF-H190DL # [id number] PEDIATRIC COLONOSCOPE was ? introduced through the anus and advanced to. Estimated Blood Loss: ?? Load Dispatcher Override Don Hobson DO Number of Addenda: 0 Note Initiated On: 06/29/2025 11:37 AM Procedure Note Don Hobson DO - 07/03/2025 [facility] Patient Name: Noemi Caballero Procedure Date No Time: 06/29/2025 CSN : [id number] Date of : 1960 Admit Type: Outpatient Age: 65 Room: [place] [address] Gender: Female Note Status: Load Dispatcher Override Attending MD: Don Hobson DO, Procedure: Colonoscopy Providers: Don Hobson DO Referring MD: Don Hobson DO Procedure: After I obtained informed consent, the scope was passed under direct vision. Throughout theprocedure, the patient's blood pressure, pulse, and oxygen saturations were monitored continuously. TheOLYMPUS PCF-H190DL # [id number] PEDIATRIC COLONOSCOPE was introduced through the anus and advanced to. Estimated Blood Loss: Load Dispatcher Override Don Hobson DO Number of Addenda: 0 Note Initiated On: 06/29/2025 11:37 AM Authorizing ProviderResult TypeResult StatusDon DOMINGUEZ PROCEDURE ORDERABLESEdited Result - FinalPerforming OrganizationAddressCity/State/ZIP Code Phone Number PM CARDIOVASCULAR from Last 3 Months Insurance Advance Directives * Full Code (Latest Code Status on File) Date ActivatedDate InactivatedComments10/06/2021 5:21 AM10/23/2021 2:34 PM Care Teams Team MemberRelationshipSpecialtyStart DateEnd Date Don Hobson DO [address] [place] [address] PCP - General02/23/13 Che Sosa CCM Nurse - [facility]09/29/24
--- OUTSIDE RECORDS SUMMARY | 2025-08-20 07:26 | XMS_ITS | Encounter Summary ---
Author Organization [email or web address] tem Address [id number] [address] [place] [address] Care Team Providers Care Button Clamper Name Role Phone Don Hobson Noreen BATEMAN Primary Care Provider [phone] Encounter Details DateTypeDepartmentCare Team (Latest Contact Info)Cznyxfifujt70/01/2025Travel Social History Tobacco UseTypesPacks/DayYears UsedDateSmoking Tobacco: NeverSmokeless Tobacco: NeverAlcohol UseStandard Drinks/WeekCommentsNo0 (1 standard drink = 0.6 oz pure alcohol)[facility] UtilitiesAnswerDate RecordedIn the past 12 months has the K[employer], gas, oil, or water eCert threatened to shut off services in your home?No 05/09/2024Overall Financial Resource Strain (CARDIA)AnswerDate RecordedHow hard is it for you to pay for the very basics like food, housing, medical care, and heating?Not hard at all05/06/2023HQ-2AnswerDate RecordedTotal Whoff213 Social Connection and Isolation PanelAnswerDate RecordedIn a typical week, how many times do you talk on the phone with family, friends, or neighbors?More than three times a week07/03/2025How often do you get together with friends or relatives?More than three times a week07/03/2025How often do you attend jewish or islam services?Never07/03/2025Do you belong to any clubs or organizations such as jewish groups, unions, fraternal or athletic groups, or school groups?No 07/03/2025How often do you attend meetings of the clubs or organizations you belong to?Never07/03/2025re you , , , , never , or living with a partner?Vkpfska4207/03/2025UDIT-CAnswerDate RecordedQ1: How often do you have a drink containing alcohol?Never07/03/2025Q2: How many drinks containing alcohol do you have on a typical day when you are drinking? Patient does not drink07/03/2025Q3: How often do you have six or more drinks on one occasion?Never07/03/2025[facility] [place] [facility] - Occupational Stress QuestionnaireAnswerDate [...] part of a household?No05/09/2024hildcareAnswerDate RecordedDo problems getting children's minister make it difficult for you to work [...] InformationValueDate RecordedSex Assigned at BirthNot on fileLegal RjsRcqswx19/06/2015 11:30 AM EDTGender IdentityNot on fileSexual OrientationNot on filedocumented as of this encounter Plan of Treatment DateTypeDepartmentCare Team (Latest Contact Info)Rbqhzbuafls35/19/2025 9:15 AM ESTFollow Up Anticoagulation [facility] [address] [place] [address] 07/09/2026 10:00 AM EDTOffice Visit [facility] - [facility] Medicine [address] [place] [address] documented as of this encounter Goals GoalPatient Goal TypeAssociated ProblemsRecent ProgressPatient-Stated?Author Lashawn Lucio LSW Note: Evaluation of progress towards goal: transfer to [facility] for med adjustments documented as of this encounter Visit Diagnoses Not on filedocumented in this encounter Additional Health Concerns AssessmentNoted TimePHQ-9 Depression Total Score: 1:49 PM EDT documented as of this encounter Care Teams Team MemberRelationshipSpecialtyStart DateEnd Date Don Hobson, [address] [place] [address] PCP - General02/23/13 Che Sosa CCM Nurse - [place]09/29/24documented as of this encounter
--- OUTSIDE RECORDS SUMMARY | 2025-08-20 07:26 | XMS_ITS ---
Author Organization [facility] Care Team Providers Care Race Steward Name Role Phone Massimo Alfaro Unavailable Unavailable Karla Champagne Unavailable Unavailabl Suri Blanco Unavailable Unavailable Allergies and adverse reactions Code CodeSystem Substance Reaction Severity StartDate Concern Status 4053 RXNORM Erythromycin Moderate 10/23/2021 active 35650 RXNORM [place] Moderate 10/23/2021 active 8640 RXNORM predniSONE Severe 10/23/2021 active 351620 RXNORM Sevelamer Moderate 10/23/2021 active HxguphEyqpohxi95/10/2022ctive Care Team Name Role Address Phone Organization Dates Suri New PCP [address] [place], [address], [place] (Office): : [facility] 10/23/2021 - 11/08/2021 Massimo Alfaro [address] [place] [address], [address], [place] (Office): : [facility] 10/23/2021 - 11/08/2021 Karla Champagne [facility] [place], [address], [place] (Cell): [facility] 10/23/2021 - 11/08/2021 Immunizations Immunization Status Vaccine Details Vaccine Code CodeSystem Date Notes Influenza completed Influenza, high-dose, split virus, quadrivalent, injectable, preservative free lotNumber: [id number] expiry: 02/06/2022 Mfg: SEQIRIS Given 0.5 ml Left Hip intramuscularly 197 CVX created date: 2 consent date: 2 administe red date: 2 administered on car shifter on 11/05/21 Influenza completed Influenza, high-dose, split virus, trivalent, injectable, preservative free 135 CVX created date: 2 administe red date: 0 Trivalent TB 2 Step Mantoux Skin Test completed tuberculin skin test; unspecified formulation lotNumber: [id number] expiry: 06/13/2022 Mfg: [employer] Given 0.1 ml Left Forearm intradermally Step 2 of Multi-step with next step required 98 CVX created date: 2 consent date: 2 administe red date: 2 TB 2 Step Mantoux Skin Testcompletedtuberculin skin test; unspecified formulation lotNumber: [id number] expiry: 06/13/2022 Mfg: [employer] Given 0.1 ml Left Forearm intradermally Step 1 of Multi-step with next step ptdkdxzf03NLUcanvktg date: 10/24/2021 consent date: 10/23/2021 administered date: 10/24/20212818MPZX-MRX-9 (COVID-19)hubojdarwCPRN-NMJ-6 (COVID-19) vaccine, mRNA, spike protein, LNP, preservative free, 100 mcg/0.5mL dose or 50 mcg/0.25mL dose Step 2 of Multi-step with next step pjcwykad150AEGdfkzify date: 10/23/2021 administered date: 01/14/20211269EZXO-SJB-8 (COVID-19)xeeqofbnuLAEK-EQB-7 (COVID-19) vaccine, mRNA, spike protein, LNP, preservative free, 30 mcg/0.3mL dose Step 1 of Multi-step with next step deeqomvt300SOSxwnttkh date: 10/23/2021 administered date: 1PPSV 23completedPneumococcal Conjugate, unspecified formulation lotNumber: [id number] expiry: 04/19/2023 Mfg: [employer] Given 0.5 ml Left Deltoid xhpfsagtejuxjbw457DKVrargtpu date: 11/06/2021 consent date: 11/06/2021 administered date: 11/06/2021 Mental Status Section Date Assessment Total Score Description 11/08/2021 BIMS 13 cognitively int act CAM 0 No delirium ind icated PHQ-9 00 10/30/20215078LPPJ58vqygfrrrpfb tkcvzcVRI9Dt delirium indicatedPHQ-900 Insurance Providers Coverage Status Coverage Type Relationship to Subscriber Member Identifier Subscriber Identifier Group Identifier Payer Identifier and Other information Code: 1 Code System OID:[id number] 0.1.931151. 3.221.5 Code System Name: Source of Payment Typology ([facility]) Display: Medicare Translation : Code: [place] Code System: OID:2.16.84 0.1.772239. 6.255.1336 Code System Name: Insurance Type Code ([id number]) Display Name: Medicare Part A Problems Problem # Description Date of onset Resolved Date Code CodeSystem Concern Status 1 ACUTE CYSTITIS WITHOUT HEMATURIA 10/29/19 22 11/06/[address] completed 2 CONTUSION OF LEFT THIGH, SEQUELA 10/28/[address] active 3 OTHER ABNORMALITIES OF GAIT AND MOBILITY 10/28/[address] active 4 DIFFICULTY IN WALKING, NOT ELSEWHERE CLASSIFIED 10/24/[address] active 5 MUSCLE WEAKNESS (GENERALIZED) 10/24/[address] active 6 OTHER FATIGUE 10/24/[address] active 7 OTHER PROBLEMS RELATED TO LIFE MANAGEMENT DIFFICULTY 10/24/[address] active 8 ANTIPHOSPHOLIPID SYNDROME 10/23/[address] active 9 ANXIETY DISORDER, UNSPECIFIED 10/23/[address] active 10 BIPOLAR DISORDER, UNSPECIFIED 10/23/[address] active 11 BODY MASS INDEX [BMI] 33.0-33.9, ADULT 10/23/[address] active 12 CHRONIC KIDNEY DISEASE, STAGE 3 UNSPECIFIED 10/23/[address] active 13 CONSTIPATION, UNSPECIFIED 10/23/[address] active 14 COVID-19 10/23/[address] active 15 DEPRESSION, UNSPECIFIED 10/23/[address] active 16 ESSENTIAL (PRIMARY) HYPERTENSION 10/23/[address] active 17 FIBROMYALGIA 10/23/[address] active 18 GASTRO-ESOPHAGEAL REFLUX DISEASE WITHOUT ESOPHAGITIS 10/23/[address] active 19 HISTORY OF FALLING 10/23/[address] active 20 HYPERLIPIDEMIA, UNSPECIFIED 10/23/[address] active 21 HYPOTHYROIDISM, UNSPECIFIED 10/23/[address] active 22 INSOMNIA, UNSPECIFIED 10/23/[address] active 23 IRON DEFICIENCY ANEMIA, UNSPECIFIED 10/23/[address] active 24 INTERMEDIATE (CURRENT) USE OF ANTICOAGULANTS 10/23/[address] active 25 MIGRAINE, UNSPECIFIED, NOT INTRACTABLE, WITHOUT STATUS MIGRAINOSUS 10/23/[address] active 26 MILD INTERMITTENT ASTHMA, UNCOMPLICATED 10/23/[address] active 27 OTHER SPONDYLOSIS, LUMBAR REGION 10/23/[address] active 28 PERSONAL HISTORY OF OTHER VENOUS THROMBOSIS AND EMBOLISM 10/23/[address] active 29 PERSONAL HISTORY OF TRANSIENT ISCHEMIC ATTACK (TIA), AND CEREBRAL INFARCTION WITHOUT RESIDUAL DEFICITS 10/23/[address] active 30 PRESENCE OF LEFT ARTIFICIAL HIP JOINT 10/23/[address] active 31 VITAMIN D DEFICIENCY, UNSPECIFIED 10/23/[address] active Reason for Referral No Reasons for Referral Entered Social History Social History Observation Description Start Date End Date Code Code System Current Smoking Status Tobacco smoking consumption unknown 949448816 SNOMED CT Sex Assigned At Female 1960 74736-3 LOINC Gender Identity Sexual Orientation Vital Signs Code Code System Vitals Name Values and Units Timing Information 72158-7 LOINC Pain Level Value=0.0 11/08/2021 8310-5 LOINC Body Temperature Value=97.6 Units= F 11/08/2021 17510-1 LOINC O2 % BldC Oximetry Value=96.0 Units= % 11/08/2021 9279-1 [facility] Respiratory Rate Value=16.0 Units=/m in 11/06/2021 8867-4 [facility] Heart rate Value=90.0 Units=/min 8462-4 [facility] Blood Pressure-Diastolic Value=64 Un its=mmHg 11/06/2021 8480-6 [facility] Blood Pressure-Systolic Aatld=236 Un its=mmHg 11/06/2021 8302-2 [facility] Height Value=65.0 Units=Inches 10/23/2021 25185-8 [facility] Weight Anjhu=406.0 Units=Lbs 06/2022
--- OUTSIDE RECORDS SUMMARY | 2025-08-20 07:26 | XMS_ITS | Clinical Summary ---
Author Organization [facility] Address [address], [address] [place] [address] Care Team Providers Care Linux Engineer Name Role Phone Don Hobson DO Primary Care Provider [phone] Allergies Active AllergyReactionsCriticalityNoted EvfaHzqohtvqAebwafztbubg87/14/2017 Rdyswlpibm00/14/2017Milnacipran Hcl09/26/20167820Fksjzceuma32/14/2017 Medications MedicationSigDispense QuantityRefillsLast FilledStart DateEnd DateStatus albuterol [...] Active Active Problems ProblemNoted DateDiagnosed DateBipolar 1 avacbwga45/15/2017Polypharmacy 09/27/2016Acute metabolic dhxvqdhkjdiuwi24/15/2017Chronic pain09/27/2016Chronic dwigzwqy46/15/2017CAD (coronary artery disease)09/27/2016H/O: CVA (cerebrovascular accident)09/27/2016Antiphospholipid antibody mocjsvuh83/15/2017 History of DVT (deep vein thrombosis)09/27/20164544Ctomtmkcwsjjsw43/15/2017GERD (gastroesophageal reflux disease)09/27/20160429Mwzcuwfilqoarck89/15/2017Altered mental statusMisuse of prescription only drugs Resolved Problems ProblemNoted DateDiagnosed DateResolved DateEncephalopathy acute09/27/2016 Social History Tobacco UseTypesPacks/DayYears UsedDateSmoking Tobacco: NeverCommentsNo Sex and Gender InformationValueDate RecordedSex Assigned at BirthNot on file Legal NskCyutcv35/10/2013 5:26 PM ESTGender IdentityNot on fileSexual OrientationNot on file Last Filed Vital Signs Vital SignReadingTime TakenCommentsBlood Cprsebdh135/70009/28/2016 11:49 AM EST Akxxe241809/28/2016 11:49 AM XMGCdvjgscbxao48.1 ??C (98.8 ??F)09/28/2016 11:49 AM ESTRespiratory Adgq280209/28/2016 11:49 AM ESTOxygen Jwyyutoasp46%09/28/2016 11:49 AM ESTInhaled Oxygen Concentration--Gemapk74.9 kg (196 lb)09/28/2016 7:20 AM EST Gytlso576.1 cm (5' 5 )09/26/2016 9:43 PM ESTBody Mass Index32.62009/26/2016 9:43 PM EST Plan of Treatment Not on file Insurance Advance Directives TypeDate RecordedPatient RepresentativeExplanationACP-Advance Directive09/29/2016 1:53 PM * Full Code (Latest Code Status on File) Date ActivatedDate InactivatedComments09/27/2016 1:50 AM09/28/2016 4:58 PM Care Teams Team MemberRelationshipSpecialtyStart DateEnd Date Don Hobson DO PCP - General09/26/16
--- OUTSIDE RECORDS SUMMARY | 2025-08-20 07:26 | XMS_ITS ---
Author Organization [facility] Care Team Providers Care Boat Driver Name Role Phone Yanira Jacques Unavailable Unavailable Luis Enrique Singh Unavailable Unavailable Xin Joseph Unavailable Unavailable Elena Ng M Unavailable Unavailable Alicja Pantoja NP Unavailable Unavailable Bakies, Sophy Unavailable Unavailable DowneyGauri pinedo M Unavailable Unavailable Agata SANONCDivine Unavailable Unavailable Allergies and adverse reactions Code CodeSystem Substance Reaction Severity StartDate Concern Status 77597 RXNORM Azithromycin Unknown 12/08/2021 active 67892 RXNORM [place] Severe 12/08/2021 active 8640 RXNORM predniSONE Unknown 12/08/2021 active 574158 RXNORM [place]vel[place] Moderate 12/08/2021 active BjjszmJmjnhdc54/28/2022ctive Care Team Name Role Address Phone Organization Dates Xin Joseph [address], [address], [place] (Office): : [facility] 12/08/2021 - 12/11/2021 Yanira Jacques [address] [facility] [address] [facility] [place], [address], [place] (Office): [facility] 12/08/2021 - 12/11/2021 Luis Enrique Singh [address], [place], [address], [place] (Office): : : [facility] 12/08/2021 - 12/11/2021 Elena Ng [address] [place], [address], [place] (Cell): : [facility] 12/08/2021 - 12/11/2021 Alicja Pantoja [employer] [address] [place], [address], [place] (Office): : : [facility] 12/08/2021 - 12/11/2021 S[address] [place], [place] (Cell): [facility] 12/08/2021 - 12/11/2021 Gauri Fonseca [address] [place], [address], [place] (Office): : [facility] 12/08/2021 - 12/11/2021 Divine Parmar [employer] [address], [address], [place] (Cell): : : [facility] 12/08/2021 - 12/11/2021 Immunizations Immunization Status Vaccine Details Vaccine Code CodeSystem Justice e Notes Influenza normal Influenza, high-dose, split virus, quadrivalent, injectable, preservative free 197 CVX created date: 12/09/2021 consent date: 12/09/2021 Had flu shot last month when inpatient at [facility] Insurance Providers Coverage Status Coverage Type Relationship to Subscriber Member Identifier Subscriber Identifier Group Identifier Payer Identifier and Other information Code: 1 Code System OID:2.16.84 [id number]. 3.221.5 Code System Name: Source of Payment Typology ([facility]) Display: Medicare Translation : Code: JEN Code System: OID:2.16.84 0.1.429472. 6.255.1336 Code System Name: Insurance Type Code ([id number]) Display Name: Medicare Part A Problems Problem # Description Date of onset Resolved Date Code CodeSystem Concern Status 1 ANEMIA, UNSPECIFIED 12/08/[address] active 2 ANXIETY DISORDER, UNSPECIFIED 12/08/[address] active 3 BIPOLAR II DISORDER 12/08/2021 [address]809[address] T active 4 ESSENTIAL (PRIMARY) HYPERTENSION 12/08/[address] active 5 GASTRO-ESOPHAGEAL REFLUX DISEASE WITHOUT ESOPHAGITIS 12/08/[address] active 6 HYPERLIPIDEMIA, UNSPECIFIED 12/08/[address] active 7 HYPOTHYROIDISM, UNSPECIFIED 12/08/[address] active 8 LUPUS ANTICOAGULANT SYNDROME 12/08/[address] active 9 SPINAL STENOSIS, CERVICAL REGION 12/08/[address] active 10 SPINAL STENOSIS, LUMBAR REGION WITHOUT NEUROGENIC CLAUDICATION 12/08/[address] active 11 UNSPECIFIED ASTHMA, UNCOMPLICATED 12/08/[address] active Reason for Referral No Reasons for Referral Entered Social History Social History Observation Description Start Date End Date Code Code System Current Smoking Status Tobacco smoking consumption unknown 787026910 SNOMED CT Sex Assigned At Female 1960 93945-6 LOINC Gender Identity Sexual Orientation Vital Signs Code Code System Vitals Name Values and Units Timing Information 9279-1 [facility] Respiratory Rate Value=16.0 Units=/m in 12/11/2021 8462-4 [facility] Blood Pressure-Diastolic Value=74 Un its=mmHg 12/11/2021 8480-6 [facility] Blood Pressure-Systolic Knrbd=628 Un its=mmHg 12/11/2021 8310-5 LOINC Body Temperature Value=98.2 Units= F 12/11/2021 8867-4 LOINC Heart rate Value=76.0 Units=/min 48776-2 [facility] Pain Level Value=0.0 12/11/2021 69064-1 [facility] O2 % BldC Oximetry Value=98.0 Units= % 12/11/2021 8302-2 [facility] Height Value=65.0 Units=Inches 12/09/2021 97103-6 [facility] Weight Nlkgt=499.0 Units=Lbs
--- OUTSIDE RECORDS SUMMARY | 2025-08-20 07:26 | XMS_ITS | Encounter Summary ---
Author Organization [facility] HospitalDiff[facility] tem Address [facility] [place] [id number] [address] [place] [address] Care Team Providers Care Inspector Canned Food Reconditioning Name Role Phone Don Hobson DO Primary Care Provider [phone] Encounter Details DateTypeDepartmentCare Team (Latest Contact Info)Pbpvoksuzdr65/05/2025Patient Outreach [facility] Internal Medicine - Family Medicine [address] [place] [address] Don Hobson DO [address] [place] [address] Essential hypertension (Primary Dx); Mild persistent asthma without complication Social History Tobacco UseTypesPacks/DayYears UsedDateSmoking Tobacco: NeverSmokeless Tobacco: NeverAlcohol UseStandard Drinks/WeekCommentsNo0 (1 standard drink = 0.6 oz pure alcohol)[facility] UtilitiesAnswerDate RecordedIn the past 12 months has the [employer], gas, oil, or water [employer] threatened to shut off services in your home?No 05/09/2024Overall Financial Resource Strain (CARDIA)AnswerDate RecordedHow hard is it for you to pay for the very basics like food, housing, medical care, and heating?Not hard at all05/06/2023HQ-2AnswerDate RecordedTotal Ooyzn981 Social Connection and Isolation PanelAnswerDate RecordedIn a typical week, how many times do you talk on the phone with family, friends, or neighbors?More than three times a week07/03/2025How often do you get together with friends or relatives?More than three times a week07/03/2025How often do you attend anglican or buddhism services?Never07/03/2025Do you belong to any clubs or organizations such as anglican groups, unions, fraternal or athletic groups, or school groups?No 07/03/2025How often do you attend meetings of the clubs or organizations you belong to?Never07/03/2025re you , , , , never , or living with a partner?Ncskhsi9407/03/2025UDIT-CAnswerDate RecordedQ1: How often do you have a drink containing alcohol?Never07/03/2025Q2: How many drinks containing alcohol do you have on a typical day when you are drinking? Patient does not drink07/03/2025Q3: How often do you have six or more drinks on one occasion?Never07/03/2025[facility] [place] [facility] Occupational [facility] - Occupational Stress QuestionnaireAnswerDate [...] part of a household?No05/09/2024hildcareAnswerDate RecordedDo problems getting child psychologist make it difficult for you to work [...] InformationValueDate RecordedSex Assigned at BirthNot on fileLegal KfhGvojku97/06/2015 11:30 AM EDTGender IdentityNot on fileSexual OrientationNot on filedocumented as of this encounter Progress Notes * Che Sosa - 08/17/2025 12:58 PM EST SN called Patient. SN verified with Patient. SN verified there was no change in insurance. Verified Patient's insurance as Medicare A & B, . Patient pleasant and receptive to [facility] call.. Patient experienced these changes since we last spoke. Patient had an appointment with neurologist.The appointment was on 07/27/25. SN reviewed visit summary with Patient and reinforced recommendations. Doctor recommendations: She experiences 1 to 2 headaches per week, which are managed with Ubrelvy and Fioricet. She is advised to continue using Ubrelvy for breakthrough headaches and Fioricet when other treatments are ineffective. She will maintain her current regimen of Emgality. A prescription for gabapentin 360 tablets, to be taken 4 times a day, will be sent to [facility] for a 90-day supply. A prescription for Fioricet will be sent to [facility] for a 3-month supply. Patient verbalized understanding of Doctor recommendations. Reviewed preventative services with Patient and instructed on the importance of completing: COVID Vaccine Booster Shot and a flu shot. Patient verbalized understanding the importance of preventative services. Patient has not had flu vaccine yet. Lab Workordered: prior to an appointment with rheumatology. Unable to review visit summary with Patient; novisit summary available. Patient has appointment next week to review. SN confirmed pharmacy. Patient recognizes these Signs and Symptoms of Asthma: shortness of breath, chest tightness, increasing cough, and wheezing. SN instructed Patient to notify Doctor if any of these Signs and Symptoms occur. Patient is able to verbalize the education. Discussed nebulizers and inhalers with Patient. Patient is able to verbalize the education. Patient has inhaler and nebulizer if needed. SN completed Blood Pressure Monitoring Assessment. Patient monitors their blood pressure. Patient does have a blood pressure meter. Patient's recent blood pressure readings:122/68 on Aug 16, 2025 7:00:00 PM Educated Patient on proper preparation and positioning when taking blood pressure including: arm bare and arm supported. Educated Patient on common positioning problems that can lead to inaccurate blood pressure measurements including: cuff over clothing. Instructed Patient on benefits of monitoring blood pressure at home. Monitoring blood pressure changes at home can help you and your doctor make better decisions about your treatment. * Check if your blood pressure differs outside the doctor'soffice. Some people experience spikes in blood pressure due to anxiety associated with seeing a doctor white coat hypertension. Patient is able to verbalize the education. SN updated Care Plan with: Achieved goals and Reinforcing interventions/goals. Sent educational materials to Patient. Materials sent via [employer] Mail. Confirmed an upcoming appointment with neurology on10/19/24. Will assess next call. Advised Patient to call in the interim with any concerns or issues. Goals Discussed:your Hypertension, its diagnosis, process and treatment - 08/17/25your Asthma, its diagnosis, process and treatment - 08/17/25 Goals Achieved:Wage Adjuster - 07/03/25Annual Wellness Visit - 07/03/25Pap Smear - 07/03/25 Goals Declined:Annual Wellness Visit - 07/03/25, Not Due. documented in this encounter Plan of Treatment DateTypeDepartmentCare Team (Latest Contact Info)Zepyrwubhdm25/19/2025 9:15 AM ESTFollow Up Anticoagulation [facility] Medication Management [address] [place] [address] 07/09/2026 10:00 AM EDTOffice Visit [facility] [address] [place] [address] documented as of this encounter Goals GoalPatient Goal TypeAssociated ProblemsRecent ProgressPatient-Stated?Author Lashawn Lucio LSW Note: Evaluation of progress towards goal: transfer to [facility] med adjustments documented as of this encounter Visit Diagnoses Diagnosis Essential hypertension- Primary Unspecified essential hypertension Mild persistent asthma without complication documented in this encounter Additional Health Concerns AssessmentNoted TimePHQ-9 Depression Total Score: 1:49 PM EDT documented as of this encounter Care Teams Team MemberRelationshipSpecialtyStart DateEnd Date Don Hobson DO [address] [place] [address] PCP - General02/23/13 Che Sosa CCM Nurse - Mao09/29/24documented as of this encounter
--- OUTSIDE RECORDS SUMMARY | 2025-08-20 07:27 | XMS_ITS | Clinical Summary ---
Author Organization [facility] Address [address] [place] [address] Care Team Providers Care Radio Engineer Name Role Phone Don Hobson MD Primary Care Provider [phone] Allergies Active AllergyReactionsCriticalityNoted DateCommentsErythromycinHivesMedium 05/10/2013 Other Reaction(s): Abnormal Behavior, GI Upset UPSET STOMACH SEVERE STOMACH CRAMPING Erythromycin Base03/29/2023 Other Reaction(s): Unknown UaqpgwhKdmhnBkbp07/05/2018 Other Reaction(s): Unknown PT. SAYS SHE WENT INTO A COMA COMA Lmsjgnpnuegl67/14/2021 Other Reaction(s): VOMITING Qkffbhjuxl71/07/2024 Other Reaction(s): Falls Tjmowzeqd15/26/2020 Other Reaction(s): blood in urine PlqpdafnxouFuble52/04/2014 Other Reaction(s): Unknown Other Reaction(s): Mental Status Change Other reaction(s): Unknown Milnacipran Hcl09/26/2016 Other Reaction(s): Unknown McwlgiihzvoEnbfvWeykwc40/18/7215FlzfdobjtyFygsdjvfNtpwzb28/29/2013 Other Reaction(s): Unknown ORAL ONLY--SWELLING WITH LONG TIME USE Per care everywhere, causes swelling ORAL ONLY--SWELLING WITH LONG TIME USE Other Reaction(s): Unknown FszroxjrnpMqtsiAqog00/28/2013 Other Reaction(s): Unknown Chest Pain CHEST PAINS Chest pain NvabpmvpnRwwxjk49/10/2022 Other Reaction(s): Anaphylaxis VortioxetineNausea And OdqkqdovUgqdaw61/30/2018 Other Reaction(s): GI Intolerance, Nausea And Vomiting [...] Refill(s)11/15/2023ctive sennosides 17.2 MG tablet 17.2 mg11/15/2023ctive naltrexone (Depade) 50 MG tablet Take by mouthActive Ubrogepant (Ubrelvy) 100 MG tablet Indications:Migraine without aura and without status migrainosus, not intractableTake 1 tablet by mouth if needed (May repeat in 2 hours. Max of 2 tablets in 24 hours. Max 3 days aweek) 10 tablet 1107//767017/6Active Emgality 120 MG/ML auto-injector Indications:Migraine without aura [...] intractableTAKE 1 TABLET DAILY 90 tablet 5Active gabapentin (Neurontin) 300 MG capsule Indications:Lumbar radiculopathyTAKE 1 CAPSULE IN THE MORNING AND 1 CAPSULE AT NOON AND 1 CAPSULE IN THE EVENING AND 1 CAPSULE BEFORE BEDTIME 360 capsule 5Active bjidsawwye-uhavzcxsysosz-hybskvgy-codeine (Fioricet W/Codeine) 97-786-69-30 MG capsule Indications:Migraine without aura and without status migrainosus, not intractableTake 1 capsule by mouth every 6 (six) hours if needed for headaches 20 capsule 5Active gabapentin (Neurontin) 300 MG capsule Indications:Lumbar radiculopathyTAKE 1 CAPSULE IN THE MORNING AND 1 CAPSULE AT NOON AND 1 CAPSULE IN THE EVENING AND 1 CAPSULE BEFORE BEDTIME 360 capsule /[id number]/Discontinued(Reorder) cgyxekkdol-rmuflqhucoclf-osnmkhww-codeine (Fioricet W/Codeine) 86-057-86-30 MG capsule Indications:Migraine without aura and without status migrainosus, not intractableTake 1 capsule by mouth every 6 (six) hours if needed for headaches 20 capsule /Discontinued(Reorder) Active Problems ProblemNoted DateDiagnosed DateObesity, lroywp1601/29/2025hronic deep vein thrombosis (DVT) of proximal vein of lower yehulgmun22/27/9382Cdzoojkj75/15/2024 Overview (11/26/2023): MIGRAINES Ieessq8407/26/2023ack pain07/26/2023 Overview (07/26/2023): MID TO LOWER Teykvzfb46/13/2023TIA (transient ischemic attack)07/26/2023 Overview (07/26/2023): LAST 2011 Gyggsgwqcv17/13/2023Misuse of prescription only drugs07/26/20236605Msmcty73/17/2023 Bipolar 1 tpugkpnl88/17/2023ipolar II wybyomhz79/17/2023lood coagulation disorder ([facility])03/29/2023Migraine without aura and without status migrainosus, not ucbolrhgwvj63/17/2023ognitive pldcfjywgb89/17/2023Inattention 03/29/2023egeneration of lumbar intervertebral disc03/29/2023isc displacement, julzja9203/29/2023astro-esophageal reflux disease without xrkqmymyapg06/17/2023 Generalized anxiety szyvuufa25/17/2023Hallux valgus (acquired), left foot 03/29/20236537Cwfuchbltfykwe32/17/7756Jayasrfmxhkaho58/17/2023Lumbar radiculopathy 03/29/2023Lupus anticoagulant disorder ([facility])03/29/2023Occipital neuralgia 03/29/2023Other chronic pain03/29/2023anic disorder with gpecuyvkwtn45/17/2023 Primary osteoarthritis of left foot03/29/2023Refractory migraine with aura 03/29/2023Sacroiliitis, not elsewhere kdrdydqdrn32/17/2023Sensorineural hearing loss, adtlyauoi19/17/2023Spondylosis of lumbar region without myelopathy or eohjtnurkqqul28/17/2023ilateral vkgpttax82/17/8942Vodsfvzp17/17/2023 Fibromyalgia, ufujqyn4605/20/2022Generalized uxlkzxewxxansw52/07/2022Hypertension 05/20/2022Hypothyroidism due to Cristi's tgzwtjabjgq74/07/2022Nephrolithiasis 05/20/2022resence of vena cava bndrlf8805/20/20224062Hapeeh82/28/2022ltered mental aheque9812/07/2021Long term (current) use of ilaqgxmxknmtsm90/14/2022Delirium 10/29/2021History of 2019 novel coronavirus disease (COVID-19)10/29/2021 Contusion of left thigh2Other abnormalities of gait and mobility 10/28/2021bnormal gait10/28/2021equelae of injury to lower iaekgansi52/15/2022 Difficulty in walking, not elsewhere cxxiollzhe30/11/2022Muscle weakness (generalized)2Other apvlcru49/11/2022Other problems related to life management raepuxntyi23/11/2022Chronic kidney disease, stage 3 unspecified 2Constipation, nyispkgxpju83/10/2022COVID-19010/23/2021History of eziohue6910/23/2021Insomnia, xftyalctquh67/10/2022resence of left artificial hip joint10/23/2021Vitamin D deficiency, kcpwcyzzyii19/10/2022isorder of vein 10/23/2021Fall10/23/20215359Zyqoggwj59/24/3333Ktfcglrc99/20/2020Deep vein thrombosis (DVT)05/18/2019 Overview (07/26/2023): S/P IN LEG, RIGHT ARM, AND THROAT; now partially blind in right eye from 2010 clot Krrvbgqb57/05/2019Thoracic spinal avftvwrl07/12/2019 Overview (07/26/2023): Added automatically from request for surgery [id number] Added automatically from request for surgery [id number] Obesity (BMI 30.0-34.9)02/15/2019Chronic fjflowtc30/11/2019Primary osteoarthritis of right hip08/30/2018Displacement of lumbar intervertebral disc without utcxsavynv29/13/2018Lumbosacral spondylosis without bkottlixzw12/13/2018 Osteoarthritis of left hip11/09/2017 Overview (07/26/2023): Last [...] Cr 1.29. Seen by Dr. Arguello ([facility]) this morning and patient to follow-up [...] Cr 1.29. Seen by Dr. Arguello ([facility]) this morning and patient to follow-up for repeat labs with PCP as well. Patient states understanding. - Mobilize, WBAT, Anterior Hip Precautions - Cont bowel regimen - Maintain dressing x 7 days post op then change Opsite dressing and maintainuntil follow-up appointment, may shower - PT following - Ortho stable, plan for discharge today - [facility] for medical management, appreciate care - f/u [...] Dr. Elizabeth Disposition: Discharge home Chronic antral qnomxyuuv14/20/2017Acute metabolic wkgxrxrpcjbnuc64/15/2017CAD (coronary artery disease)09/27/2016H/O: CVA (cerebrovascular accident)09/27/2016 Heoiertgihgz38/15/2017Mild persistent qqncyn7706/16/2016Acquired blindness of one eye01/15/2016Other optic atrophy, right eye01/15/2016Intractable chronic migraine without aura and without status yiqspxfyjxr82/14/2016Iron deficiency ojlxad1704/12/2014nticoagulation management uvyskhwrv18/24/2013History of deep venous qsgiasadhv66/24/2013Ischemic optic magjaxcgxc62/18/2013Systemic lupus hpudwbducuhjc94/16/2013Optic /28/2013History of blood transfusion 09/13/2012History of cardiac cath09/13/1998 Overview (07/26/2023): Normal Cerebrovascular accident (CVA)09/13/1994 Encounters DateTypeDepartmentCare VhhvFoysvrbrwvr49/14/2025 10:00 AM ESTOffice Visit [facility] [address] [place] [address] [place] [phone] Kurt Levin MD Lumbar radiculopathy (Primary Dx); Migraine without aura and without status migrainosus, not nvpxcwtjeuq80/14/2025 Bamboo flowsheet [facility] [address] [address] Kurt Levin MD 07/27/20254057Moejjb80/08/6817Kauapq63/05/2025Orders Only [facility] [address] [phone] Kayla Terrell LPN 07/03/2025 10:00 AM EDTOffice Visit [facility] [address] [facility] [place] [phone] Kobi Latham DO Well woman exam with routine gynecological exam; Breast cancer screening by mammogram; Postmenopausal state5Clinisync Result Encounter [facility] Department Unsolicited Kobi Latham DO 5Bamboo flowsheet [facility] [address] [facility] [place] [phone] Kobi Latham DO from Last 3 Months Family History Medical HistoryRelationNameCommentsHeart diseaseFatherDiabetesMotherHeart diseaseMotherHypertensionMotherDiabetesSiblingHypertensionSiblingLung cancer SiblingProstate cancerSiblingThyroid cancerSiblingRelationNameStatusComments FatherDeceasedMotherDeceasedSibling Social History Tobacco UseTypesPacks/DayYears UsedDateSmoking Tobacco: NeverSmokeless Tobacco: Never Tobacco Cessation:Counseling Given: Not Answered Alcohol UseStandard Drinks/WeekCommentsNever0 (1 standard drink = 0.6 oz pure alcohol)caffeine: 1-2 cups per dayEducationAnswerDate RecordedWhat is the highest level of school you have completed or the highest degree you have received?High school dzlcgiqp08/29/2023CommentsNoSex and Gender InformationValueDate RecordedSex Assigned at FhdsdXeghzm07/10/2023 10:15 AM EDT Legal KmnYtghus85/15/2023 6:48 PM EDTGender GifpphovYuxebb29/15/2023 6:48 PM EDT Sexual OrientationNot on fileOccupationIndustryJob Start DateJob End Date DisabledNot on fileNot on fileNot on file Last Filed Vital Signs Vital SignReadingTime TakenCommentsBlood Yzxohabm417/7611 9:51 AM EST Ggilw646007/26/2023 10:37 AM ESTTemperature--Respiratory Rate--Oxygen Saturation-- Inhaled Oxygen Concentration--Cvubux00.4 kg (206 lb)07/27/2025 9:51 AM ESTHeight 165.1 cm (5' 5 )07/27/2025 9:51 AM ESTBody Mass Index34.28109/26/2024 9:51 AM EST Plan of Treatment DateTypeDepartmentCare Team (Latest Contact Info)Qxtgefwvjor57/06/2026 9:00 AM ESTOffice Visit [facility] [address] [facility] [address] [place] [address] Kurt Levin MD [address] [facility], [place] [id number] 07/15/2026 10:00 AM ESTProcedure Visit [facility] [address] [place] [address] Kboi Lahtam DO [address] [place] [address] Procedures Procedure NamePriorityDate/TimeAssociated DiagnosisCommentsIGP,APTIMA HPV,AGE LWCNWxixuub52/21/2025 9:55 AM EDT PAP TEST, PEZSYSFXInarfsq58/21/2025 12:00 AM EDTfrom Last 3 Months Results * IGP,APTIMA HPV,AGE GDLN (07/03/2025 9:55 AM EDT)ComponentValueRef RangeTest MethodAnalysis TimePerformed AtPathologist SignatureAGE GDLN ACOG TESTINGNote. TBHComment: ?? TESTS ? RESULT ??FLAG ??UNITS ?REF RANGE ??LAB ?? Clinician Provided Cytology Information ?? Source.............Cervix;Endocervix ?? No. of containers..01 ThinPrep Vial Age Algo ACOG Trudy... ??30-65 ? 01 ?FLAG LEGEND: ?L-Low Normal,H-High Normal,LL-Alert Low,HH-Alert High <-Panic Low,>-Panic High,A-Abnormal,AA-Critical Abnormal Performed at: 01 =G ?[facility] ?? [address] [place], [place] ??[phone] ?? Fatmata Marks MD, IGP, APTIMA HPV, RFX 16/18,45Note.TBHComment: ?? TESTS ? RESULT ??FLAG ??UNITS ?REF RANGE ??LAB DIAGNOSIS: ?02 ?? NEGATIVE FOR INTRAEPITHELIAL LESION OR MALIGNANCY. ?? CELLULAR CHANGES ASSOCIATED WITH ATROPHY ARE PRESENT. Specimen adequacy: ?02 ?? Satisfactory for evaluation. ??Endocervical component may not be ?? distinguished in cases of atrophy. ?? Areas of partially obscuring inflammatory exudate are present. Performed by: ? 02 ?? Lashawn Gonzalez, Supervisor [employer] (ASCP) . ? 02 Note: ? Note ?02 ?? The Pap smear is a screening test designed to aid in the ?? detection of premalignant and malignant conditions of the ?? uterine cervix. ??It is not a diagnostic procedure and ?? should not be used as the sole means of detecting cervical ?? cancer. ??Both false-positive and false-negative reports do ?? occur. Test Methodology: ? Note ?02 ?? This liquid based ThinPrep(R) pap test was interpreted ?? using the [employer](R) Zarfo(TM) Cervical Algorithm whole ?? slide imaging system. HPV Genotype Reflex ?? Note ?02 ?? Criteria not met, HPV Genotype not performed. ?FLAG LEGEND: ?L-Low Normal,H-High Normal,LL-Alert Low,HH-Alert High <-Panic Low,>-Panic High,A-Abnormal,AA-Critical Abnormal Performed at: 02 WB ?[facility] ?? [address] [place], [place] ??[phone] ?? Fatmata Marks MD, HPV APTIMANegativeNegativeTBHComment: This nucleic acid amplification test detects fourteen high- risk HPV types (16,18,31,33,35,39,45,51,52,56,58,59,66,68) without differentiation. Performed at: ??=G - [facility] ??[id number] Advanced Practice Professional: Fatmata Marks MD, Phone: ??[phone] Performed at: ??WB - [facility] ??[id number] Advanced Practice Professional: Fatmata Marks MD, Phone: ??[phone] Specimen (Source)Anatomical Location / LateralityCollection Method / Volume Collection TimeReceived Time07/03/2025 9:55 AM EDT1 12:25 PM EDT Narrative [facility] - 07/06/2025 2:09 PM EDT BRUSH-SPATULA CERVIX ENDOCERVIX Authorizing ProviderResult TypeResult StatusCorey Noa DOLAB BLOOD ORDERABLES Final ResultPerforming OrganizationAddressCity/State/ZIP CodePhone Number [facility] * PAP TEST, EXTERNAL (07/03/2025 12:00 AM EDT) Narrative Authorizing ProviderResult TypeResult StatusFazio Nurse [facility] Ob[facility] CYTOLOGY ORDERABLESFinal ResultPerforming OrganizationAddressCity/State/ZIP CodePhone Number EXTERNAL LAB from Last 3 Months Insurance Care Teams Team MemberRelationshipSpecialtyStart DateEnd Date Don Hobson MD [address] [place] [address] PCP - GeneralInternal Bwhzamkb15/10/23
--- OUTSIDE RECORDS SUMMARY | 2025-08-20 07:27 | XMS_ITS | Clinical Summary ---
Author Organization [facility] Address [address] [place] [address] Care Team Providers Care Clay Modeler Name Role Phone Jazlyn Paz Jr., Jr., Don BATEMAN Primary Care Provi teri Allergies Active AllergyReactionsCriticalityNoted DateCommentsAmoxicillinHivesMedium 02/15/20195446Ddukrtlrdisa25/05/2019 UPSET STOMACH Xmhlfgt5902/15/2019 PT. SAYS SHE WENT INTO A COMA Qfhuwmygi17/05/2019 Hematuria WyztpcyvyuWnureqbbSmdimf58/05/2019VortioxetineNausea and VomitingMedium 02/15/20198313Mvjblnkcwe69/05/2019 Chest Pain Medications MedicationSigDispense QuantityRefillsLast FilledStart DateEnd [...] 150 mg by mouth daily every morning.Active Tldayoemlx-VBLY-Kncg-Cod (FIORICET/CODEINE) 74-349-67-30 MG Cap Take by mouth as needed.Active [...] at 6 PM.Active Active Problems ProblemNoted DateDiagnosed FrxrAhqazqyi29/05/2019DVT (deep venous thrombosis) 05/18/20195473Kjwobv42/05/2019Antiphospholipid fwhsowwh18/05/2019Thoracic lvdjebylcbunj36/12/2019 Overview (03/24/2019): Added automatically from request for surgery [id number] Thoracic spinal llenizfn21/12/2019 Overview (03/24/2019): Added automatically from request for surgery [id number] Degenerative disc disease, /12/2019 Overview (03/24/2019): Added automatically from request for surgery [id number] Obesity: body mass index of 30.0-34.9002/15/2019 Family [...] Date RecordedSex Assigned at BirthNot on fileLegal RefIcjqnk93/08/2019 6:48 PM EDTGender IdentityNot on fileSexual OrientationNot on file Last Filed Vital Signs Vital SignReadingTime TakenCommentsBlood Ffepshxh003/7509 8:57 AM EDT Emrql293106/01/2019 8:57 AM MJBThrxusfqqax43.7 ??C (98 ??F)06/01/2019 8:57 AM EDT Respiratory Fjvh0848 11:50 AM EDTOxygen Zhvjnnkgnu55%06/01/2019 8:57 AM EDTInhaled Oxygen Concentration--Urkrtb04.5 kg (195 lb)07/12/2019 11:50 AM EDT Pkbfyp228.1 cm (5' 5 )07/12/2019 11:50 AM EDTBody Mass Index32.451 11:50 AM EDT Plan of Treatment Health MaintenanceDue DateLast DoneCommentsHEPATITIS C VIRUS GPGETOIAK1961 BIWKVDB7306/04/1961HIV SCREENING GCXFAZFJFA84/22/1976TDAP (ADULT)1980 CERVICAL CANCER SCREENING FKCZKZTELQ51/22/1982LIPID FKRHMGRRO23/22/2001MAMMOGRAM SCREENING IGOMPRBQID48/22/2001COLORECTAL CANCER SCREENING GKQZABVBNR17/22/2006 PNEUMOCOCCAL VACCINE SERIES (2 of 2 - PCV20 or PCV21)ZOSTER (SHINGLES) VACCINE (2 of 2)COVID-19 VACCINE (1 - 2024- season)2025INFLUENZA VACCINE (#1)51, 06/13/2018, 06/14/2017, Additional history existsRSV VACCINE (1 - 1-dose 75+ series) 2036PNEUMOCOCCAL VACCINE HQVCNKHzskuxxgmfpa05/26/2018TSHDiscontinued 05/18/2019HEP B VACCINEAged OutNo longer eligible based on patient's age to complete this topic Medical Devices ImplantedTypeAreaManufacturerDevice IdentifierShelf Expiration DateModel / Serial / Lot1.5t Or 3t 2w/KgFilter Procedures Procedure NamePriorityDate/TimeAssociated UcdhqmnwsWfxphtagYSIAdneyxv21/05/2019 2:19 PM EDT Pre-op evaluation Other specified hypothyroidism from Last 3 Months or Most Recently Relevant to Health Maintenance Results * TSH (05/18/2019 2:19 PM EDT)ComponentValueRef RangeTest MethodAnalysis Time Performed AtPathologist SignatureTSH2.2170.550 - 4.780 uIU/mL05/18/2019 6:40 PM EDTODETWILER MEMORIAL [facility]ITAL CLINICAL LABORATORYSpecimen (Source)Anatomical Location / LateralityCollection Method / VolumeCollection TimeReceived Time BloodVenipuncture / Bxofkzj4605/18/2019 2:19 PM EDT05/18/2019 2:48 PM EDT Narrative Authorizing ProviderResult TypeResult StatusMicosei Olson MDENDOCRINOLOGY Final ResultPerforming OrganizationAddressCity/State/ZIP CodePhone Number U [facility] [address] [place] [address] from Last 3 Months or Most Recently Relevant to Health Maintenance Insurance Advance Directives For more information, please contact: [phone] (7:30 AM - 6PM [facility], Wednesday-Wednesday) * Full Code (Latest Code Status on File) Date ActivatedDate InactivatedComments05/30/2019 11:09 AM05/30/2019 8:21 PM Care Teams Team MemberRelationshipSpecialtyStart DateEnd Date Jazlyn Paz Jr., Jr., Don Sorto DO PCP - GeneralInternal Medicine01/25/19
--- OUTSIDE RECORDS SUMMARY | 2025-08-20 07:27 | XMS_ITS | Clinical Summary ---
Author Organization [facility] Address [address] [place] [address] Care Team Providers Care Warrant Server Name Role Phone Don Hobson DO Primary Care Provider [phone] Allergies Active AllergyReactionsCriticalityNoted DateCommentsErythromycinOther (See Comments)Vbegfn3909/11/2016 SEVERE STOMACH CRAMPING LithiumOther (See Comments)High10/18/2017 COMA KrjmtgtcxnhGgtqa87/18/4708AeqpdtyhekMtsdhzsb99/05/2018 ORAL ONLY--SWELLING WITH LONG TIME USE VortioxetineGI Npzphdksgvs51/30/2018SertralineOther (See Comments)High09/11/2016 CHEST PAINS Medications MedicationSigDispense QuantityRefillsLast [...] times a day DOES 2 PUFFS ReasonsASTHMA.Active bbrgpzs-qwapwjceik-BAN-caff (bfcgrnddne-taavdat-lgrjmcop-codeine) capsule Indications:MIGRAINESTake 1 capsule by mouth as [...] Dr. Elizabeth Disposition: Discharge home History of oeqmtndhoeguhk85/01/2017History of stress test09/13/2012History of cardiac cath09/13/1998 Overview (08/30/2018): Normal Bvkbla0409/13/1994Osteoarthritis of left hip Assessment & Plan (11/11/2017 [...] - Cr 1.29. Seen by Dr. Arguello ([facility]) this morning and patient to follow-up for repeat labs with PCP as well. Patient states understanding. - Mobilize, WBAT, Anterior Hip Precautions - Cont bowel regimen - Maintain dressing x 7 days post op then change Opsite dressing and maintain until follow-up appointment, may shower - PT following - Ortho stable, plan for discharge today - [facility] for medical management, appreciate care - f/u [...] Rheumatoid arthritis Overview (08/30/2018): Yes,I have RA. LINE ORDERING CLINICIAN DR PANCHO UNDERWOOD [phone] Presence of vena cava filterHyperlipidemiaDepressionCataractBack pain Overview (08/30/2018): MID TO LOWER Anemia Family History Medical HistoryRelationCommentsNo Known ProblemsBrotherDeep vein thrombosis FatherHeart diseaseFatherHeart diseaseMotherNo Known ProblemsSisterAnesthesia problemsNeg HxClotting disorderNeg HxPulmonary embolismNeg HxSurgical complicationsNeg HxRelationStatusCommentsBrotherFatherMotherSister Social History Tobacco UseTypesPacks/DayYears UsedDateSmoking Tobacco: NeverSmokeless Tobacco: NeverAlcohol UseStandard Drinks/WeekCommentsNo0 (1 standard drink = 0.6 oz pure alcohol)rarePHQ-2AnswerDate RecordedPHQ-2 Ufiui806CommentsNoSex and Gender InformationValueDate RecordedSex Assigned at BirthNot on fileLegal HusLqitbd76/07/2016 11:39 AM ESTGender JecwotxuFhehsi90/30/2018 3:04 PM EST Sexual XejgnnbhokxCjpfxeis78/30/2018 3:04 PM EST Last Filed Vital Signs Vital SignReadingTime TakenCommentsBlood Dezokbjl234/ 8:14 AM EST Jiemj944409/01/2018 8:14 AM GNXSopqbxakyqc20.8 ??C (98.2 ??F)09/01/2018 8:14 AM ESTRespiratory Ycjs431611/02/2017 8:14 AM ESTOxygen Llwgvdjras42%09/01/2018 8:17 AM ESTInhaled Oxygen Concentration--Tjtnjg48.7 kg (204 lb 5.9 oz)08/30/2018 6:19 AM JNRFintoo611.1 cm (5' 5 )08/30/2018 6:19 AM ESTBody Mass Index34.01110/31/2017 6:19 AM EST Plan of Treatment Health MaintenanceDue DateLast DoneCommentsCT Qddfvxbtpyjs1961olonoscopy 1961olorectal Cancer Screening/Mmbppxqxyg1961Fecal DNA1961 Fecal occult blood test (FOBT,FIT)1961MMR Vaccines (1 of 1 - Standard series)1962Wellness Visit1964Depression Screening/Follow-Up (PHQ-2/9)1973HIV Wjadvwack21/22/1976Hepatitis C Qnsysvvhl64/22/1979 Tetanus/Diphtheria/Pertussis (1 - Tdap)1980Pap Smear1982Cervical Cancer Hwalbzlud74/22/1991HPV/Ckkduo6006/04/1991Zoster Vaccines (1 of 2)2011 Pneumococcal Vaccine: 50+ Years (2 of 2 - PCV20 or PCV21) COVID-19 Vaccine (1 - 2024- season)2025Influenza Vaccine (#1)2025 06/26/2018, 06/13/2018, 06/14/2017, Additional history existsRSV Vaccines (1 - 1-dose 75+ series)06/04/20361151CseojiyysBizuuzakposn53/15/2018HIB VaccinesAged Out No longer eligible based on patient's age to complete this topicHPV VaccinesAged OutNo longer eligible based on patient's age to complete this topicHepatitis A VaccinesAged OutNo longer eligible based on patient's age to complete this topic Hepatitis B VaccinesAged OutNo longer eligible based on patient's age to complete this topicIPV VaccinesAged OutNo longer eligible based on patient's age to complete this topicMeningococcal ACWY VaccineAged OutNo longer eligible based on patient's age to complete this topicMeningococcal B VaccineAged OutNo longer eligible based on patient's age to complete this topicRotavirus VaccinesAged Out No longer eligible based on patient's age to complete this topic Medical Devices ImplantedTypeAreaManufacturerDevice IdentifierShelf Expiration DateModel / Serial / LotLiner 32mm C Flat Highcross Mpact - [id number] Implanted:Qty: 1 on 11/09/2017 by Karthik Elizabeth MD at [facility]: KuwCRDHYLS86/23/202201.32.3239HCT / / [id number] 48mm 2hl Acet Mpact - [id number] Implanted:Qty: 1 on 11/09/2017 by Karthik Elizabeth MD at [facility]: ZwzQZTSXBO46/05/202201.32.148DH / / [id number] Sz2 Std Fem Prox Coat Ti Amistem-H - [id number] Implanted:Qty: 1 on 11/09/2017 by Karthik Elizabeth MD at [facility]: DslUILQHVB18/14/202301.18.172 / / [id number] 32mm +4 Fem Biolox Delta Mectacer - [id number] Implanted:Qty: 1 on 11/09/2017 by Karthik Elizabeth MD at [facility]: ZlqMOTDJWZ30/31/202001.29.206 / / [id number] 32mm D Flat Highcross Mpact - [id number] Implanted:Qty: 1 on 08/30/2018 by Karthik Elizabeth MD at [facility]: CecOIKEXPA45/22/202301.32.3241HCT / / [id number] 50mm 2hl Acet Mpact - [id number] Implanted:Qty: 1 on 08/30/2018 by Karthik Elizabeth MD at [facility]: NloUNCYRGN21/26/202301.32.150DH / / [id number]. Femoral Stem Size 3, Type Std, Ti+Gusman Coated Implanted:Qty: 1 on 08/30/2018 by Karthik Elizabeth MD at [facility]: AhvQGGSHGO56/05/202301.18.403 / / [id number] 32mm +0 Fem Biolox Delta Mectacer - [id number] Implanted:Qty: 1 [facility] 08/30/[facility] CzlRVIIBPZ02/808621.29.205 / / [id number] Insurance PART A CLAIMS [facility] [address] [place] [address] Advance Directives For more information, please contact: [phone] TypeDate RecordedPatient RepresentativeExplanationAdvance Directives and Living Will08/16/2018 12:10 PM * Full Code (Latest Code Status on File) Date ActivatedDate ByxiigosmqfEtkietrv49/18/2018 7:57 AM * Full Code Date ActivatedDate InactivatedComments11/09/2017 11:04 AM08/30/2018 6:00 AM Care Teams Team MemberRelationshipSpecialtyStart DateEnd Date Don Hobson DO [address] [place] [address] PCP - GeneralInternal Ukdhrbwx10/30/16
--- NOTE | 2025-08-20 07:30 | MM_ITS ---
Patient Name: NORA BRAND MR#: [id number] : 1960 Exam Date: 08/20/2025 Ordering Doctor: DR PASHA PAIGE . RADIOLOGY REPORT PROCEDURE: MM TOMOSYNTHESIS SCREENING BI COMPARISON: MM TOMOSYNTHESIS SCREENING BI, 08/18/2024. MM TOMOSYNTHESIS SCREENING BI, 08/13/2023. MG MAMM SCREEN 3D TERENCE CAD, 06/05/2022. MG MAMM SCREEN TERENCE W CAD, 01/25/2018. INDICATIONS: SCREENING Calculator Name NCI Breast Cancer Risk Assessment Tool 5 Year Breast Cancer Risk 2.00% Lifetime Breast Cancer Risk 7.90% Personal Breast Cancer No Personal Ovarian Cancer No Treatments None Family Cancers Sister with thyroid cancer at age 52. LOCATION: [facility] BREAST COMPOSITION: There are scattered areas of fibroglandular density. FINDINGS: RIGHT BREAST: No significant suspicious finding. Benign-appearing calcifications are present. LEFT BREAST: No significant suspicious finding. Benign-appearing calcifications are present. DIAGNOSTIC CATEGORY 2--BENIGN FINDING. NO CHANGE FROM COMPARISON. RECOMMENDATIONS: ROUTINE MAMMOGRAM AND CLINICAL EVALUATION IN 12 MONTHS. Dictated by: Min Andres MD on 08/20/2025 at 09:43 Approved by: Min Andres MD on 08/20/2025 at 09:50
== END 2025-08-20 07:20 | disposition home or self-care (01) ==
LOC: MAMMO 07:19
PROVIDERS: PCP Internal Medicine; Visit Provider Obstetrics & Gynecology
DX: R31.0 Gross hematuria (principal); N20.0 Calculus of kidney; Z12.31 Encounter for screening mammogram for malignant neoplasm of breast; Z78.0 Asymptomatic menopausal state; Z80.8 Family history of malignant neoplasm of other organs or systems
CPT/HCPCS: 77063; 77067; 77080

== ENCOUNTER 2025-08-20 07:20 | Outpatient (OUT) | payer MEDICARE, OTHER, SELFPAY ==
--- OUTSIDE RECORDS SUMMARY | 2025-08-16 23:59 | XMS_ITS | Continuity of Care Document ---
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 Name Role Phone ALEXANDER CHEN Primary Care Physician Encounter [facility] [id number] Date(s): 08/16/25 - 08/16/25 [facility] [address] [place] [address]; [address] Discharge Disposition: Home Attending Physician: Jillian Nieves CNP Admitting Physician: Jillian Nieves CNP Encounter Type: OP Allergies, Adverse Reactions, Alerts SubstanceCriticalitySeverityReactionReaction SeverityStatuserythromycinUnable to assess criticalityUnknownActivelithiumUnable to assess criticalityUnknownActive sevelamerHigh criticalitySevereAnaphylaxisActivemeloxicamUnable to assess criticalityUnknownHematuriaActiveTrintellixUnable to assess criticalityUnknown ActiveamoxicillinHigh vqnbphmutstBbpdwbypXffaeEisjxcpnyvrwWMJE0Qyjjnc to assess criticalityUnknownActiveZoloftUnable to assess criticalityUnknownActiveLatuda Unable to assess criticalityUnknownFallsActive 1oral prednisone Treatment Plan Extracted from:Title:Office Visit NoteAuthor:Jillian Nieves CNPDate:08/16/25 chronic pain syndrome sacroiliitis ? On 07/20/25 she underwent a bilateral T7-8 TFESI with 80% reduction in pain. ?? The patient has failed physical medical modalities listed above.?? The patient has establish candidacy for a bilateral SI joint injection. ?? Thank you for allowing me to persuade in the patient's care. ??I look forward to seeing them as a return patient following her injection therapy.? Future Appointments Functional Status 08/16/25 Family Member Travel HistoryNo recent travelRecent Travel HistoryNo recent travel Medications acetaminophen-butalbital 300 mg-50 mg oral capsule See Instructions, Instructions: 1 cap(s) Oral, PRN: as needed for headache, 0 Refill(s) Start Date: 11/15/23 Status: Ordered Medication Dispense Status: Completed Total Allowed Fills: 1 Fills Dispensed: 0 Ambien 10 mg oral tablet 1 tab(s) ( 10 mg ), Oral, Once a day (at bedtime), PRN: as needed for insomnia, 0 Refill(s) Start Date: 11/15/23 Status: Ordered Medication Dispense Status: Completed Total Allowed Fills: 1 Fills Dispensed: 0 Aspirin 81 Chewtab 1 tab(s), Oral, Daily, 0 Refill(s) Start Date: 11/15/23 Status: Ordered Medication Dispense Status: Completed Total Allowed Fills: 1 Fills Dispensed: 0 baclofen 10 mg oral tablet 1 tab(s) ( 10 mg ), Oral, QID, 0 Refill(s) Start Date: 11/15/23 Status: Ordered Medication Dispense Status: Completed Total Allowed Fills: 1 Fills Dispensed: 0 buPROPion 300 mg/24 hours (XL) oral tablet, extended release 1 tab(s) ( 300 mg ), Oral, Daily, # 30 tab(s), 0 Refill(s) Start Date: 11/15/23 Status: Ordered Medication Dispense Status: Completed Quantity: 30.0 Unit: tab(s) Total Allowed Fills: 1 Fills Dispensed: 0 Compund medication with Biotin Compund medication with Biotin, 2 tab(s), Oral, Daily, 0 Refill(s) Start Date: 02/04/24 Status: Ordered Medication Dispense Status: Completed Total Allowed Fills: 1 Fills Dispensed: 0 Coumadin ( 5 mg ), Oral, SuTuWFSa, 0 Refill(s) Start Date: 11/15/23 Status: Ordered Medication Dispense Status: Completed Total Allowed Fills: 1 Fills Dispensed: 0 Coumadin 5 mg oral tablet 0.5 tab(s) ( 2.5 mg ), Oral, MTh Start Date: 07/20/25 Status: Ordered Medication Dispense Status: Completed Total Allowed Fills: 1 Fills Dispensed: 0 famotidine 40 mg oral tablet 1 tab(s), Oral, Daily, 0 Refill(s) Start Date: 11/15/23 Status: Ordered Medication Dispense Status: Completed Total Allowed Fills: 1 Fills Dispensed: 0 Fish Oil 1 tab(s), Oral, BID, 0 Refill(s) Start Date: 11/15/23 Status: Ordered Medication Dispense Status: Completed Total Allowed Fills: 1 Fills Dispensed: 0 folic acid 1 mg oral tablet 1 tab(s) ( 1 mg ), Oral, Daily, # 30 tab(s), 0 Refill(s) Start Date: 11/15/23 Status: Ordered Medication Dispense Status: Completed Quantity: 30.0 Unit: tab(s) Total Allowed Fills: 1 Fills Dispensed: 0 levothyroxine 50 mcg (0.05 mg) oral tablet 1 tab(s) ( 50 mcg ), Oral, Daily Start Date: 02/04/24 Status: Ordered Medication Dispense Status: Completed Total Allowed Fills: 1 Fills Dispensed: 0 Lipitor ( 80 mg ), Oral, Daily, 0 Refill(s) Start Date: 11/15/23 Status: Ordered Medication Dispense Status: Completed Total Allowed Fills: 1 Fills Dispensed: 0 naltrexone ( 2 mg ), Oral, HS, 0 Refill(s) Start Date: 11/15/23 Status: Ordered Medication Dispense Status: Completed Total Allowed Fills: 1 Fills Dispensed: 0 Neurontin 300 mg oral capsule 1 tab(s), Oral, QID, 0 Refill(s) Start Date: 11/15/23 Status: Ordered Medication Dispense Status: Completed Total Allowed Fills: 1 Fills Dispensed: 0 propranolol 60 mg oral capsule, extended release 1 cap(s) ( 60 mg ), Oral, BID, # 30 cap(s), 0 Refill(s) Start Date: 06/16/24 Status: Ordered Medication Dispense Status: Completed Quantity: 30.0 Unit: cap(s) Total Allowed Fills: 1 Fills Dispensed: 0 Protonix 40 mg oral delayed release tablet 1 tab(s) ( 40 mg ), Oral, BID, # 60 tab(s), 0 Refill(s) Start Date: 11/15/23 Status: Ordered Medication Dispense Status: Completed Quantity: 60.0 Unit: tab(s) Total Allowed Fills: 1 Fills Dispensed: 0 Reglan 10 mg oral tablet See Instructions, Instructions: 1 tab(s) Oral TID before meals, 0 Refill(s) Start Date: 11/15/23 Status: Ordered Medication Dispense Status: Completed Total Allowed Fills: 1 Fills Dispensed: 0 senna 17.2 mg oral tablet 1 tab(s) ( 17.2 mg ), Oral, Once a day (at bedtime), PRN: for constipation, 0 Refill(s) Start Date: 11/15/23 Status: Ordered Medication Dispense Status: Completed Total Allowed Fills: 1 Fills Dispensed: 0 Seroquel XR 400 mg oral tablet, extended release 1 tab(s) ( 400 mg ), Oral, HS, # 30 tab(s), 0 Refill(s) Start Date: 11/15/23 Status: Ordered Medication Dispense Status: Completed Quantity: 30.0 Unit: tab(s) Total Allowed Fills: 1 Fills Dispensed: 0 Singulair 10 mg oral tablet 1 tab(s) ( 10 mg ), Oral, qPM, # 30 tab(s), 0 Refill(s) Start Date: 11/15/23 Status: Ordered Medication Dispense Status: Completed Quantity: 30.0 Unit: tab(s) Total Allowed Fills: 1 Fills Dispensed: 0 valsartan 80 mg oral tablet 1 tab(s) ( 80 mg ), Oral, Daily, 0 Refill(s) Start Date: 11/15/23 Status: Ordered Medication Dispense Status: Completed Total Allowed Fills: 1 Fills Dispensed: 0 verapamil 80 mg oral tablet 1 tab(s) ( 80 mg ), Oral, HS, 0 Refill(s) Start Date: 05/24/25 Status: Ordered Medication Dispense Status: Completed Total Allowed Fills: 1 Fills Dispensed: 0 Problem List ConditionConfirmationCourseEffective DatesStatusHealth StatusInformantAnemia ConfirmedActiveAsthmaConfirmedActiveBipolar II disorderConfirmedActiveCVA - Cerebrovascular accidentConfirmedActiveDiabetes mellitusConfirmedActiveDVT - Deep vein thrombosisConfirmedActiveFibromyalgiaConfirmedActiveGeneralized anxiety disorderConfirmedActiveGERD - Gastro-esophageal reflux diseaseConfirmed ActiveGlaucomaConfirmedActiveHyperlipidemiaConfirmedActiveHypertensionConfirmed ActiveHypothyroidConfirmedActiveLupusConfirmedActiveMigraineConfirmedActivePanic disorderConfirmedActive Procedures ProcedureDateRelated DiagnosisBody SiteStatusCT guided injection of thoracic spinal nerve [id number] ablation of medial branch of lumbar nerve using fluoroscopic pgchvkxo79/25/25CompletedFluoroscopy guided radiofrequency earifquw618/3/24CompletedInjection of nerve root of lumbar spine using fluoroscopic /29/24CompletedCT guided injection of sacroiliac jointCompletedRadiofrequency ablation using fluoroscopic /23/24 CompletedFluoroscopy guided radiofrequency umsrnjfr52/11/24CompletedCT guided nerve blockCompletedNasal endoscopy02/01/2032JrxoizdnkMfwivcgmrjpawzm4 05/29/19CompletedHistory of total replacement of right hip joint08/29/18Completed Total replacement of left hip joint11/08/1711EtclfrpphHhjxjbfl1037/5/16Completed History of inferior vena cava filter placement01/01/15CompletedCervical spinal hgnjqt5228/21/09CompletedUltrasound guided high intensity focused ultrasound ablation of lesion of uterus04/10/09CompletedHistory of kidney stone01/13/06 CompletedHistory of left knee wswmptebrxr05/19/98CompletedHistory of lumbar spine /19/95CompletedCesarean section09/17/86CompletedAbdominal wuhfydnzltoj60ZmdfpfnfuR/O: jprwykoyBjooiiwkyCworvx32Fthmrdwqt 1Bilateal T7-8 2Bilateral L4-5, L5-S1 3BILATERAL L4-5, L5-S1 4BILATERAL T7-8 5BILATERAL 6Left T7, T8 Intercostal Radiofrequency Ablation 7BILATERAL T789 8BILATERAL T789 intercostal NB 9thoracic tona and discectomy T9- T10 10left eye 11anteroir cervical disectomy with fusion 139/61 Vital Signs Most recent to oldest [Reference Range]:5Fggzdh282 cm (08/16/25 9:24 AM)Height/Length Measured (inches)64.96 in (08/16/25 9:24 AM)Corinne Body Weight Vbhmtwaeaa67.909 kg (08/16/25 9:24 AM)Peripheral Pulse Rate [60-100 bpm]64 bpm (08/16/25 9:24 AM)Blood Pressure [90-120/60-80 mmHg]134/76mmHg *HI* (08/16/25 9:24 AM)Mean Arterial Pressure, Cuff [65-100 mmHg]95 mmHg (08/16/25 9:24 AM)Oxygen TherapyRoom air (08/16/25 9:24 AM) Social History Social History TypeResponseTobaccoFormer tobacco user Tobacco Use:. 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 History of Present Illness The patient rates their pain as a??4??but can increase to 8. The pain is described as painful. It is??intermittent in nature. It is increased with??activity, movements??and is decreased with rest. There are no new associated symptoms; no new loss of bowel or bladder control. No new motor or sensorydeficits. ?? Patient has failed physical and medical modalities to help alleviate their pain complaints. This does include but not limited to provider directed home exercise program and activity modification for greater than an 8 week time period time, of which is attempted on a daily basis. ?? Activity modification including transition maneuver avoidance as well as strict upper extremity lift and movement limits has failed to provide reprieve. ?? This patient has tried over the counter and prescription medications that include but not limited to the use of??gabapentin for greater than a 3 month period of time. ?? The patient presents today to discuss her pain. ?? Review of Systems Constitutional-??no fever, no chills no unexplained weight loss ENMT???no dysphagia Integumentary???no rashes Eyes???no diplopia Gastrointestinal???no nausea, vomiting, or diarrhea Respiratory-no shortness of breath Cardiac???no chest pain Hematological???no bleeding no unusual bruising Genitourinary-no dysuria Physical Exam Vitals & Measurements HR:??64??(Peripheral)?? BP:??134/76?? HT:??165??cm?? Pain Score:??5?? O2 Therapy:??Room air?? Psych???alert and oriented x3. ??Attentive and appropriate, constitutionally normal, displays normal mood and affect for situation.?? There are no obvious deficits in memory, reasoning, or intellect. Skin???there are no obvious rashes, bruising, erythema noted in the patient's area of pain. Extremities???extremities are warm??with minimal edema palpable pulses Gaenslen's test is positive Sacroiliac???tenderness to palpation is noted over the??bilateral sacroiliac joint. ??Elis sign and sacral???thigh thrust are significant positive and do appear to be concordant the patient's pain generators. ??Grant's maneuvers is positive. Coordination virgen intact Gait remains non-antalgic Cardiac is regular rate Pulmonary respirations are unlabored Abdomen non-tender Medical Decision Making: ?? Chronic conditions NOT treated during this visit that affected my overall medical decision making: [x]? Treatment plans discussed but not opted for at this time: []? Prescribed medication that requires intensive monitoring for toxicity: [x]?? steroids ?? I have reviewed the patient???s medication list for medication interactions/contraindications and/or for upcoming procedures: [yes]?? Assessment/Plan chronic pain syndrome sacroiliitis ? On 07/20/25 she underwent a bilateral T7-8 TFESI with 80% reduction in pain. ?? The patient has failed physical medical modalities listed above.?? The patient has establish candidacy for a bilateral SI joint injection. ?? Thank you for allowing me to persuade in the patient's care. ??I look forward to seeing them as a return patient following her injection therapy.?? Problem List/Past Medical History Ongoing Anemia Asthma Bipolar II disorder CVA - Cerebrovascular accident Diabetes mellitus DVT - Deep vein thrombosis Fibromyalgia Generalized anxiety disorder GERD - Gastro-esophageal reflux disease Glaucoma Hyperlipidemia Hypertension Hypothyroid Lupus Migraine Panic disorder Procedure/Surgical History ???CT guided injection of thoracic spinal nerve root Service Date: 07/20/2025???Radiofrequency ablation of medial branch of lumbar nerve using fluoroscopic guidance Service Date: 06/08/2025???Fluoroscopy guided radiofrequency ablation Service Date: 06/16/2024???Injection of nerve root of lumbar spine using fluoroscopic guidance Service Date: 05/12/2024???CT guided injection of sacroiliac joint Service Date: 04/14/2024???Radiofrequency ablation using fluoroscopic guidance Service Date: 02/04/2024???Fluoroscopy guided radiofrequency ablation Service Date: 12/24/2023???CT guided nerve bloc k Service Date: 11/19/2023???Nasal endoscopy Service Date: 02/02/2020???Hemilaminectomy Service Date: 05/30/2019???History of total replacement of right hip joint Service Date: 08/30/2018???Totalreplacement of left hip joint Service Date: 11/09/2017???Cataract Service Date: 06/18/2016???History of inferior vena cava filter placement Service Date: 01/02/2015???Cervical spinal fusion Service Date: 07/04/2009???Ultrasound guided high intensity focused ultrasound ablation of lesion of uterus Service Date: 04/11/2009???History of kidney stone Service Date: 01/14/2006???History of left knee replacement Service Date: 09/01/1998???History of lumbar spine surgery Service Date: 09/01/1995??? section Service Date: 09/18/1986???H/O: migraine???Abdominal hysterectomy???Hernia Medications Changed naltrexone2 Milligram Oral (given by mouth) At bedtime. omega-3 polyunsaturated fatty acids (Fish Oil)1 tab(s) Oral (given by mouth) 2 times per day. verapamil (verapamil 80 mg oral tablet)1 tab(s) Oral (given by mouth) At bedtime. warfarin (Coumadin 5 mg oral tablet)0.5 tab(s) Oral (given by mouth) Wednesday and . warfarin (Coumadin)5 Milligram Oral (given by mouth) Wednesday, Wednesday, Wednesday, Wednesday, and Wednesday. Unchanged acetaminophen-butalbital (acetaminophen-butalbital 300 mg-50 mg oral capsule)1 cap(s) Oral; as needed as needed for headache. aspirin (Aspirin 81 Chewtab)1 tab(s) Oral (given by mouth) every day. atorvastatin (Lipitor)80 Milligram Oral (given by mouth) every day. baclofen (baclofen 10 mg oral tablet)1 tab(s) Oral (given by mouth) 4 times a day. buPROPion (buPROPion 300 mg/24 hours (XL) oral tablet, extended release)1 tab(s) Oral (given by mouth) every day. famotidine (famotidine 40 mg oral tablet)1 tab(s) Oral (given by mouth) every day. folic acid (folic acid 1 mg oral tablet)1 tab(s) Oral (given by mouth) every day. gabapentin (Neurontin 300 mg oral capsule)1 tab(s) Oral (given by mouth) 4 times a day. levothyroxine (levothyroxine 50 mcg (0.05 mg) oral tablet)1 tab(s) Oral (given by mouth) every day. metoclopramide (Reglan 10 mg oral tablet)1 tab(s) Oral TID before meals. montelukast (Singulair 10 mg oral tablet)1 tab(s) Oral (given by mouth) once a day (in the evening). pantoprazole (Protonix 40 mg oral delayed release tablet)1 tab(s) Oral (given by mouth) 2 times perday. propranolol (propranolol 60 mg oral capsule, extended release)1 cap(s) Oral (given by mouth) 2 times per day. QUEtiapine (Seroquel XR 400 mg oral tablet, extended release)1 tab(s) Oral (given by mouth) At bedtime. senna (senna 17.2 mg oral tablet)1 tab(s) Oral (given by mouth) once a day (at bedtime) as needed for constipation. Template Non-Formulary (Compund medication with Biotin)2 tab(s) Oral (given by mouth) every day. valsartan (valsartan 80 mg oral tablet)1 tab(s) Oral (given by mouth) every day. zolpidem (Ambien 10 mg oral tablet)1 tab(s) Oral (given by mouth) once a day (at bedtime) as neededas needed for insomnia. 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 [Verified on: 08/16/2025 09:36 EST] Jillian Nieves WELLNESS INSTRUCTOR Patient Care team information Care Team Personnel Name: ALEXANDER CHEN Position: [facility] No Access Member Role: Primary Care Physician Address: [address], [address] [place], [place] [address] Telecom: Care Team Related Persons Name: JING KINNEY Insurance Providers Guarantor name: NORA HANNA CATHIE Health Plan Information #: 1 Payer: MEDICARE Payer Identifier: JOVANNY Member Number: [id number] Group Number: [id number] Subscriber Identifier: [id number] Relationship to Subscriber: self Coverage Type: MEDICARE Coverage Verification Date: JOVANNY Telecom: [phone] Address: [facility] [place] [address]
--- OUTSIDE RECORDS SUMMARY | 2025-08-20 07:24 | XMS_ITS | CCD ---
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 Name Role Phone AprilAlexanderard Unavailable Rossana Reid Unavailable ROSANGELA DUMONT Unavailable Unavailabl e YUHAS, ALEXANDER JOSE Unavailable Unavailable LINA ELIZABETH Unavailable Unavailable LINA ELIZABETH Unavailable Unavailable [facility] Unavailable U navailable YUCARLS, ALEXANDER JOSE Unavailable Unavailable LINA ELIZABETH Unavailable Unavailable ROSSANA REID Unavailable Unavailable YUHAS, ALEXANDER JOSE Unavailable Unavailable LINA ELIZABETH Unavailable Unavailable LINA ELIZABETH Unavailable Unavailable YUHAS, ALEXANDER JOSE Unavailable Unavailable LINA ELIZABETH Unavailable Unavailable LINA ELIZABETH Unavailable Unavailable [facility] Unavailable U navailable [...] Unavailable APRIL, DR MUNOZ Primary Care Unavailable HERMON, DR LANEY Diaz Consulting Unavailable NOA, DR PAK Consulting Unavailable NOA, DR PAK Admitting Unavailable NOA, DR PAK Attending Unavailable APRIL, DR MUNOZ Primary Care Unavailable NOA, DR PAK Consulting Unavailable ALEXANDER CHEN Primary Care Physician LeonorcarlsDO Munoz Primary Care Provider MD Mati Underwood Attending Provider Leonorhas, DO Munoz Primary Care Provider MD Pancho Underwood Attending Provider Fredos, DO Munoz Primary Care Provider [phone] DIANE Stanley-C Carlotta Sorto Attending Provider Alexander Chen MD Primary Care Provider ALEXANDER CHEN Referring Unavailable ALEXANDER CHEN Primary Care Unavailable ALEXANDER CHEN Referring Unavailable FREODSALEXANDER Primary Care Unavailable Orzech, Leann X Admitting [...] Primary Care Unavailable LINA SCHWAB Admitting Unavailable LIAN SCHWAB Attending Unavailable YUHAS, ALEXANDER Sorto Primary Care Unavailable [place], Jillian Bajwa Admitting Unavailable [place], Jillian Bajwa Attending Unavailable ALEXANDER CHEN Primary Care Unavailable [place], Jillian M Admitting Unavailable [place], Jillian Bajwa Attending Unavailable ALEXANDER CHEN Primary Care Unavailable Provider, None Primary Care Unavailable [place], Jillian Bajwa Admitting Unavailable [place], Jillian Bajwa Attending Unavailable [facility] DO, Alexander Garcia Primary Care Unavailab le [place] [employer] [employer] [facility], Jillian Hernandez Attending U navailable [facility], Alexander Jose Primary Care Unavailab corrine Schwab MD, Lina Ignacio Attending [facility] lable [place] [facility], Jillian Hernandez [facility]ending [facility], Alexander Garcia Primary Care Unavailab corrine Schwab MD, Lina Ignacio Attending [facility], Alexander Garcia Primary Care Unavailab le Yuhas DO, Alexander Garcia Primary Care Unavailab le [place] [employer], Jillian Hernandez Attending U [facility] Allergies Allergy ClassificationReported Allergen(s)Allergy TypeDate of OnsetReaction(s) FacilityCorticosteroids (1 source)predniSONEDrug Vkivwhu49-87-1771KxdebnslBpiilmscu Regional Medical CenterLithium (1 source)LithiumDrug Ferzpwd72-57-9757sy states put me in a coma [facility] Centerlubiprostone (1 source)lubiprostoneDrug Pjmmxij25-59-9604NYBBMKIFVjdtvgrjcOhio State Harding Hospitalmilnacipran (1 source)milnacipranDrug Prrtvgb44-87-4199NxoatjtthKrrcpykft Regional Medical CenterNSAIDs (1 source)meloxicamDrug Sifnykb97-56-9244vhhue in urineSouthview Medical CenterPenicillins (antibiotic) (1 source)AmoxicillinDrug Lyiepeb43-08-1085HusofLlmhasdehWilson Healtherotonin Reuptake Inhibitors (SSRIs) (1 source)SertralineDrug Xbznthr95-48-0501Pvpdk PainSouthview Medical Centervortioxetine (1 source)vortioxetineDrug Vucmfnm67-76-3545QvmrgfxwJfvcxhqcdKettering Health Dayton (20 sources)erythromycin; Translations: [ERYTHROMYCIN]Propensity to adverse reactions to ocfx91-01-2282Hzvkv (See Comments), Unknown (qualifier value), Hives, Abnormal BehaviorMer[facility] Defiance Hospital Work Phone: (20 sources)lithium; Translations: [LITHIUM]Propensity to adverse reactions to pnxy91-51-8148Ilmke (See Comments), Unknown (qualifier value), Hives, Confusion [facility] Work Phone: (20 sources)predniSONE; Translations: [PREDNISONE]Propensity to adverse reactions to ebks45-61-8720Tnzuuyly, Unknown (qualifier value)[facility] Work Phone: (20 sources)sertraline; Translations: [SERTRALINE]Propensity to adverse reactions to ipce72-21-4098Hkjub (See Comments), Unknown (qualifier value), HivesMercy Health Defiance Hospital Work Phone: (20 sources)Penicillins; Translations: [PENICILLINS]Propensity to adverse reactions to drug (disorder)70-60-1089OemldBvzg Health Two Repository (20 sources)vortioxetine; Translations: [VORTIOXETINE]Drug Ikmgnsq53-60-1808 [facility] VomitingHolzer [facility] Repository (20 sources)milnacipranDrug Emdzwny12-65-5293Skpvp Health Work Phone: (7 sources)Amoxicillin; Translations: [amoxicillin]Drug Jpybuud26-22-5140Xeljh [facility] Repository (20 sources)Erythromycin; Translations: [erythromycin base]Drug Allergy 59-84-9532Iyrdzdwvzuipenwi UpsetTTriHealth [facility] Repository (1 source)LithiumDrug Lhcfvwt48-52-6920AjqMagruder Memorial Hospital Repository (1 source)meloxicamDrug AllergyMagruder Memorial Hospital Repository (7 sources)meloxicam; Translations: [MELOXICAM]Drug Apkapdb25-92-8051swjbf in urineMagruder Memorial Hospital Repository (2 sources)milnacipran; Translations: [Savella]Drug Ozscvuc24-70-7225YfsMagruder Memorial Hospital Repository (1 source)predniSONEDrug Lfugsrm41-07-4286LmfMagruder Memorial Hospital Repository (4 sources)Sertraline; Translations: [Zoloft]Drug AllergyMagruder Memorial Hospital Repository (11 sources)vortioxetine; Translations: [vortioxetine]Drug AllergyBlood in urine (finding)[facility] Repository (20 sources)Amoxicillin; Translations: [amoxicillin]Drug Fpdwvkf21-57-8079Xgyt (disorder), HivesExecutive [facility] (20 sources)milnacipran; Translations: [milnacipran]Drug Czbmeek89-31-0499 Unknown (qualifier value), Other (See Comments)[facility] (20 sources)lubiprostoneDrug Ksabdnb03-84-8081TG[facility] (20 sources)lurasidoneDrug Qwyxula80-08-8785ZUGR [facility] (20 sources)meloxicamDrug Vmoenlt90-21-6096CRNB [facility] (20 sources)milnacipranDrug Nwvnfug43-26-8374HccrlXQFE Healthcare (20 sources)PrednisoneAllergy to fjkkxdzyc71-55-5055PkdpyjazZZJF Healthcare (20 sources)sevelamer; Translations: [SEVELAMER]Drug Qwjwylb53-62-5414RIUB [facility] (20 sources)LITHIUM ANALOGUES; Translations: [LITHIUM ANALOGUES]Propensity to adverse reactions to drug (disorder)95-35-2132Umlxy (See Comments)[facility] Repository (20 sources)meloxicamDrug Ytiwjpt34-19-6821RvzUvgxyg Health System Work Phone: (20 sources)sevelamerDrug Shcltxh49-54-5104Simid, AnaphylaxisProOhiohealth Grove [facility] (20 sources)Azithromycin; Translations: [AZITHROMYCIN]Drug Eudkkxq74-58-7614 [facility] (1 source)AmoxicillinDrug Qosrzle93-66-8101NujiortrkSouthview Medical Center Repository (1 source)ErythromycinDrug Ifntjph17-43-1357VbbohxprzSouthview Medical Center Repository (1 source)LithiumDrug Odyiwdk49-03-0718XffpxzlclSouthview Medical Center Repository (1 source)lubiprostoneDrug Jxllaov31-02-2262HityevnhmSouthview Medical Center Repository (1 source)meloxicamDrug Nrmmqsx82-62-7606KiujuentmSouthview Medical Center Repository (1 source)milnacipranDrug Couihxa31-07-3864QhkdgcwbtSouthview Medical Center Repository (1 source)predniSONEDrug Kxbwobo62-73-6785UveloqeqjSouthview Medical Center Repository (1 source)SertralineDrug Rmpcvja21-55-8772SzorvdoglSouthview Medical Center Repository (1 source)lurasidone; Translations: [Latuda]Drug AllergyOhio State University [facility] Repository Medications Current Medications MedicationDrug Class(es)DatesSig (Normalized)Sig (Original)acetaminophen 325 mg / butalbital 50 mg / caffeine 40 mg / codeine phosphate 30 mg oral capsule (20 sources)Opioid Agonist, Barbiturate, Central Nervous System Stimulant, MethylxanthineStart: 01-15-2025 End: 01-70-8810osjw 1 capsule by mouth every six hours as needed ftsosnrsdf-sjxyqecucq-itw-cod (FIORICET WITH CODEINE) 81-778-47-30 mg per capsule Take 1 capsule bymouth every 6 (six) hours as needed. 01/15/2025 Active Start: 27-34-9720xkkoggqdlxlqy/butalbital/caffeine/codeine 300 mg-50 mg-40 mg-30 mg oral capsule 2 cap(s), Oral, Migraine headache, Refill(s) 0 Start Date: 12/08/19 Status: Orderedacetaminophen 325 mg / oxyCODONE hydrochloride 5 mg oral tablet (7 sources)Opioid AgonistStart: 44-14-7976otwd 1 tablet by mouth three times dailyOxycodone-Acetaminophen (Percocet) 5-325 mg Tablet Active 1 TAB PO Three times daily February 02, 202012:00amStart: 11-11-2017 End: 61-99-4301zcnv 1 tablet by mouth once as needed [...] tablet 0 11/11/2017 11/18/2017 ActiveStart: 11-09-2017 End: 24-45-3550gtnj 1-2 tablets by mouth every four hours as needed End: 76-33-6704ioeh 1 tablet by mouth every six hours as neededoxyCODONE- acetaminophen (PERCOCET) 5-325 mg per tablet Take 1 tablet by mouth every 6 (six) hours as needed for pain TAKES 1 TABLET . 11/11/2017 Discontinuedaspirin 81 mg delayed release oral tablet (20 sources)Nonsteroidal Anti-inflammatory DrugStart: 54-45-2470jytq 81 mg by mouth once daily at bedtimeAspirin Active 81 MG PO Daily at bedtime February 02, 2020 12:00amStart: 16-60-4385kywt 1 mg by mouth once dailyaspirin 81 mg oral tablet mg tab(s), Oral, Daily, Refills(s) 0 Start Date: 12/08/19 Status: Ordered aspirin 81 mg chewable tablet Chew 1 tablet (81 mg total) and swallow. Active take 2 tablets by mouth once dailyaspirin 81 MG chewable tablet Take 162 mg by mouth daily 0 Active End: 70-23-4582ptja 1 tablet by mouth onceaspirin 81 MG [...] Barbiturate, Nonsteroidal Anti-inflammatory Drug, Central Nervous System Stimulant,Jvxrzuqtqnrqjrptqyxwv-rzhquejizg-ANI-caff (gyidzxwojc-abjpqeq-afylgzqi-codeine) capsule Indications: MIGRAINES Take 1 capsule by mouth continuous as needed for pain TAKES 2 TABLETS, EACH TABLET IS 30 MG ReasonsMIGRAINES. Activeatorvastatin 80 mg oral tablet (20 sources)HMG-CoA Reductase InhibitorStart: 01-04-2024 End: 50-44-7679xkhcuqfisejo (LIPITOR) 80 mg tablet Indications: Mixed hyperlipidemia TAKE 1 TABLET IN THE MORNING 90 tablet 3 07/02/2025 ActiveStart: 70-32-3148nval 1 mg by mouth once dailyLipitor 40 mg Tab mg tab(s), Oral, Daily, Refills(s) 0 Start Date: 12/08/19 Status: OrderedStart: 11-09-2017 End: 85-62-3574amedxxik 10 mg oral tablet (20 sources)gamma-Aminobutyric Acid-ergic AgonistStart: 79-66-4241qdiqrffw (LIORESAL) 10 mg tablet Indications: Cervical spondylosis with radiculopathy TAKE 1 TABLETFOUR TIMES A DAY 360 tablet 3 07/17/2025 ActiveStart: 08-02-2024 End: 58-79-2129truqfdig (LIORESAL) 10 mg tablet Indications: Cervical spondylosis with radiculopathy TAKE 1 TABLETFOUR TIMES A DAY 360 tablet 01/03/2025 07/17/2025 DiscontinuedStart: 99-19-3597LGJCOPCH 10 MG TABLET BACLOFEN 10 MG TABLET Start Date: 08/25/23 Status: OrderedStart: 92-41-9049oqpf 20 mg by mouth four times dailyBaclofen Active 20 MG PO Four times daily February 02, 2020 12:00amStart: 66-86-2534lopm 1 tablet by mouth four times daily baclofen 20 mg Tab 20 mg = 1 tab(s), Oral, QID, Refills(s) 0 Start Date: 12/08/19 Status: OrderedStart: 11-09-2017 End: 14-96-6523whcg 1 tablet by mouth four times dailybaclofen (LIORESAL) 20 MG tablet Indications: FIBROMYALGIA Take 20 mg by mouth 4 (four) times a dayTAKES 1 TABLET ReasonsFIBROMYALGIA. Activebetamethasone / clotrimazole (4 sources)Azole Antifungal, CorticosteroidStart: 39-07-1628iccmm 15 g topically once dailyLotrisone Active 15 GM TOPICAL Daily February 01, 2020 11:00pmStart: 97-29-3160zetyp 15 g topically once dailyLotrisone Active 15 GM TOPICAL Daily February 02, 2020 12:00amStart: 11-10-2017 End: 24-05-1477vmnypvzjrmbl-betamethasone (LOTRISONE) creambiotin 1 mg oral tablet (20 sources)Start: 37-07-3958xvuzwe 1000 MCG tablet See Instructions, Instructions: 2tab(s) Oral Daily and 1 tab at night, 0 Refill(s) 11/15/2023 ActiveStart: 54-21-0476uosx 2 tablets by mouth once dailybiotin 1000 mcg oral tablet 2,000 mcg = 2 tab(s), Oral, Daily, # 30 tab(s), Refills(s) 0 Start Date: 02/04/21 Status: Orderedtake 1 tablet by mouth at bedtimeBIOTIN ORAL Take 1 tablet by mouth in the morning and at bedtime. Xvpkdm10 hr buPROPion hydrochloride 300 mg extended release oral tablet (20 sources)AminoketoneStart: 10-51-3820vtCZKNmll XL (Wellbutrin XL) 300 MG 24 hr tablet 01/13/2023 ActiveStart: 26-81-8904eczy 150 mg by mouth once daily in the morningBupropion Hcl Active 150 MG PO Every morning February 02, 2020 12:00am Start: 27-48-6937jfre 1 mg by mouth twice dailybuPROPion 150 mg ER Tab mg tab(s), Oral, BID, Refills(s) 0 Start Date: 12/08/19 Status: OrderedbusPIRone hydrochloride 10 mg oral tablet (20 sources)Start: 02-04-2021 End: 08-90-1671zfiNTGghc (BUSPAR) 10 mg tablet Take 1 tablet (10 mg total) by mouth. 02/04/2021 ActiveStart: 70-85-0345lasa 10 mg by mouth once daily in the morningBuspirone Active 10 MG PO Every morning February 02, 2020 12:00amStart: 48-10-4345ctzl 20 mg by mouth once daily in the eveningBuspirone Active 20 MG PO Every evening February 02, 2020 12:00amcholecalciferol 0.125 mg oral tablet (20 sources)Vitamin DStart: 61-54-0086yboq 1 tablet by mouth once daily Cholecalciferol [...] mg/ml ophthalmic suspension (15 sources)Calcineurin Inhibitor ImmunosuppressantStart: 97-32-7087ruth 1 drop(s) into the eye(s) every twelve hoursCyclosporine (Restasis) 0.05 % Dropperette Active 1 DROPS EYE-BOTH Q12H February 02, 2020 12:00am End: 10-94-1450qcgmnMPRSFRG (Restasis) 0.05 % ophthalmic emulsion every 12 [...] tablet (20 sources)Histamine-2 Receptor AntagonistStart: 03-18-2023 End: 18-67-1325qveymkkfsg (PEPCID) 40 mg tablet Indications: Gastroesophageal reflux disease, unspecified whether esophagitis present TAKE 1 TABLET IN THE MORNING 90 tablet 1 01/22/2025 ActiveFeroSul 325 mg oral tablet (6 sources)Start: 74-63-3896EznmJia 325 mg oral tablet Refills(s) 0 Start Date: 08/25/23 Status: Orderedferrous sulfate 325 mg oral tablet (20 sources)Start: 02-02-2020 End: 36-54-2101jrqn 1 tablet by mouth in the morning, then take 1 tablet by mouth at mealtimeferrous sulfate (FeroSuL) 325 (65 FE) mg tablet Indications: Iron deficiency anemia due to chronic blood loss Take 1 tablet (325 mg total) by mouth in the morning and 1 tablet (325 mg total) in the evening. Take with meals. 180 tablet 1 06/13/2024 ActiveFish Oils (7 sources)Start: 40-13-4222Rqnr Oil 1,200 mg, Oral, Refill(s) 0 Start Date: 02/04/21 Status: Kjolbup224 actuat fluticasone propionate 0.23 mg/actuat / salmeterol 0.021 mg/actuat metered dose inhaler (20 sources)Corticosteroid, beta2-Adrenergic AgonistStart: 01-31-2023 End: 59-05-4100ozlycwaowue propion-salmeteroL (ADVAIR HFA) 230-21 mcg/actuation inhaler Indications: Mild persistent asthma without complication USE 2 INHALATIONS TWICE A DAY 36 g 3 12/25/2024 ActiveStart: 63-04-0380yval 2 puff(s) by inhalation twice dailyAdvair HFA 230 mcg-21 mcg Aerosol 2 puff(s), Inhalation, BID, Refill(s) 6 Start Date: 02/04/21 Status: OrderedStart: 28-39-6862tzzp 1 puff(s) by inhalation twice dailyFluticasone Propion-Salmeterol (Advair Hfa) 230-21 mcg/actuation Hfa Aerosol Inhaler Active 2 PUFF INHALATION Twice daily February 01, 2020 11:00pmStart: 36-28-1095selz 1 puff(s) by inhalation twice dailyFluticasone Propion-Salmeterol (Advair Hfa) 230-21 mcg/actuation Hfa Aerosol Inhaler Active 2 PUFF INHALATION Twice daily February 02, 2020 12:00am FLUTICASONE/SALMETEROL (ADVAIR HFA INHL) Indications: ASTHMA Inhale 2 (two) times a day DOES 2 PUFFS ReasonsASTHMA. Activefolic acid 1 mg oral tablet (20 sources)Start: 70-06-0797wixyr acid (FOLVITE) 1 mg tablet Indications: Iron deficiency anemia, unspecified iron deficiency anemia type TAKE 1 TABLET DAILY 90 tablet 3 08/07/2024 Activegabapentin 300 mg oral capsule (20 sources)Anti-epileptic AgentStart: 02-02-2020 End: 09-85-1359wzmkwsxpqj (Neurontin) 300 MG capsule Indications: Lumbar radiculopathy TAKE 1 CAPSULE IN THE MORNING AND 1 CAPSULE AT NOON AND 1 CAPSULE IN THE EVENING AND 1 CAPSULE BEFORE BEDTIME 360 capsule 3 06/07/2024 Active Start: 24-60-6229ykvj 1 mg by mouth every six hoursNeurontin 300 mg Cap mg cap(s), Oral, q6hr, Refills(s) 0 Start Date: 12/08/19 Status: OrderedStart: 11-09-2017 End: 08-67-5008zjja 2 capsules by mouth every six hours for pain and painStart: 50-78-5581myhb 0.5 tablet by mouth three times dailygabapentin (NEURONTIN) 600 MG tablet Take 0.5 tablets by mouth 3 times daily 90 tablet 3 09/28/2016Active take 1 tablet by mouth four times dailygabapentin (NEURONTIN) 600 MG tablet Indications: Neuropathic Pain Take 600 mg by mouth 4 (four) times a day TAKES 1 TABLET ReasonsNeuropathic Pain. Active1 ml galcanezumab-gnlm 120 mg/ml auto-injector (20 sources)Start: 48-65-3488Wspuitgl 120 MG/ML auto-injector Indications: Migraine without aura and without status migrainosus,not intractable INJECT 1 PEN (120 MG) UNDER THE SKIN EVERY 30 DAYS 3 mL 3 04/04/2025 ActiveStart: 02-18-2024 End: 96-78-9488msxihxcopacu (Emgality) 120 MG/ML auto-injector Indications: Migraine without aura and without status migrainosus, not intractable (CMS/HCC) Inject 1 Syringe (120 mg) under the skin every 30 (thirty)days 3 each 3 02/18/2024 02/17/2025 ActiveStart: 96-95-6164Tcgnhedoubog-Gnlm (Emgality Syringe) 120 mg/mL Syringe Active 120 MG SUBCUT Q30D February 02, 2020 12:00am Start: 86-70-4592pdqynw 1 mg by subcutaneous injection every monthEmgality Prefilled Pen 120 mg/mL subcutaneous solution SubCutaneous, qMonth, Refills(s) 0 Start Date: 12/08/19 Status: Orderedicosapent ethyl 1000 mg oral capsule (20 sources)Start: 07-28-2024 End: 20-95-2234npzlfxdmp ethyL (VASCEPA) 1 gram capsule Indications: Mixed hyperlipidemia TAKE 1 CAPSULE IN THE MORNING AND 1 CAPSULE BEFORE BEDTIME 180 capsule 3 12/26/2024 Activelatanoprost 0.05 mg/ml ophthalmic solution (3 sources)Prostaglandin AnalogStart: 50-40-0171uoak 1 drop(s) into the eye(s) once daily in the eveningLatanoprost Active 1 DROPS EYE-BOTH Every evening February 02, 2020 12:00amlinaclotide (9 sources)Guanylate Cyclase-C AgonistStart: 85-85-5981nnyx 1 capsule by mouth once dailyLinaclotide (Linzess) 290 mcg Capsule Active 290 MCG PO Daily February 01, 2020 11:00pmStart: 23-22-0941gynf 1 capsule by mouth once dailyLinaclotide (Linzess) 290 mcg Capsule Active 290 MCG PO Daily February 02, 2020 12:00am End: 58-96-0498tpijTMMssgt (LINZESS PO) Take by mouth 09/22/2024 Discontinued linaCLOtide (LINZESS PO) Take by mouth Activelithium carbonate 300 mg oral tablet (2 sources) End: 30-07-4345cdzx 1 tablet by mouth three times dailylithium 300 MG tablet Take 300 mg by mouth 3 times daily 0 Activeloratadine 10 mg oral tablet (20 sources)loratadine (Claritin) 10 MG tablet 1 (one) time each day at the same time. Rlguhx43 hr loratadine 10 mg / pseudoephedrine sulfate 240 mg extended release oral tablet (5 sources)alpha-Adrenergic AgonistStart: 61-39-5087spka 1 tablet by mouth once daily at [...] oral tablet (11 sources)Angiotensin 2 Receptor BlockerStart: 94-00-3179pmbi 1 tablet by mouth once dailyLosartan (Cozaar) 50 mg Tablet Active 50 MG PO Daily February 02, 2020 12:00am End: 57-99-4220ghakbuin (Cozaar) 100 MG tablet 1 (one) time each day at the same time. 06/26/2024 Discontinuedlurasidone hydrochloride 40 mg oral tablet (1 source)Atypical AntipsychoticStart: 11-06-7689vlil 1 mg by mouth once daily Latuda 40 mg oral tablet mg tab(s), Oral, Daily, Refills(s) 0 Start Date: 12/08/19 Status: Orderedmetoclopramide 10 mg oral tablet (20 sources)Dopamine-2 Receptor AntagonistStart: 08-02-2024 End: 63-38-4540txedsbsyewbdvw (REGLAN) 10 mg tablet Indications: Gastroesophageal reflux disease, unspecified whether esophagitis present TAKE 1 TABLET IN THE MORNING AND 1 TABLET BEFORE BEDTIME 180 tablet 05/08/2025 Active Start: 61-13-0044mrfa 1 tablet by mouth three times dailyReglan 10 mg Tab 10 mg = 1 tab(s), Oral, TID, Refills(s) 0 Start Date: 02/04/21 Status: OrderedStart: 11-10-2017 End: 89-41-5724zvafqnpdmxqqjj (REGLAN) injection 10 mgStart: 11-10-2017 End: 28-46-3716nfhjqjuevkzabz (REGLAN) 5 mg/mL injection - ADS Override Pull Start: 11-10-2017 End: 29-14-1546jhztgvcjcatlyh (REGLAN) injection 10 mgmetoclopramide (Reglan) 10 MG tablet every 8 (eight) hours. Activemometasone furoate 0.05 mg/actuat metered dose nasal spray (1 source)Corticosteroidmometasone (NASONEX) 50 MCG/ACT nasal spray 2 sprays by Nasal route daily 0 Activemontelukast 10 mg oral tablet (20 sources)Leukotriene Receptor AntagonistStart: 08-01-2024 End: 26-83-3963oruwrtfuvyr (SINGULAIR) 10 mg tablet Indications: Mild persistent asthma without complication TAKE 1 TABLET DAILY 90 tablet 3 02/08/2025 Active Start: 71-96-0243aanc 1 tablet by mouth once daily in the eveningMontelukast (Singulair) 10 mg Tablet Active 10 MG PO Every evening February 02, 2020 12:00am Start: 11-09-2017 End: 65-66-2884bldgalvehb hydrochloride 50 mg oral tablet (20 sources)Opioid Antagonisttake 1.5 mg by mouth in the morningnaltrexone (REVIA) 50 mg tablet Take 1.5 mg by mouth in the morning. Activenaltrexone (Depade) 50 MG tablet Take by mouth Activenitrofurantoin, macrocrystals 25 mg / nitrofurantoin, monohydrate 75 mg oral capsule (3 sources)Nitrofuran AntibacterialStart: 09-24-2023 End: 19-23-8375fknp 1 capsule by mouth twice dailyMacrobid 100 mg Cap 100 mg = 1 cap(s), Oral, BID, X 7 day(s), # 14 cap(s), Refills(s) 0, Pharmacy: [id number], 165, cm, 08/25/23 12:52:00 EST, Height/Length Dosing, 97, kg, 08/25/23 12:52:00 EST, Weight Dosing Start Date: 09/24/23 Stop Date: 10/01/23 Status: Orderednystatin 100 unt/mg topical powder (20 sources)Polyene AntifungalStart: 01-96-2251ouzvuruf (NYSTOP) powder Indications: An rash of groin APPLY 1 APPLICATION TOPICALLY TWICE A DAY NEEDED (RASH OR ITCHING) 60 g 2 03/07/2024 ActiveStart: 40-10-6856Zvuqacuz (Nyamyc) 100,000 unit/gram Powder Active 1 APPLIC TOPICAL Twice daily February 02, 2020 12:00amStart: 11-10-2017 End: 79-95-9933ztjmopny (MYCOSTATIN) powderondansetron 4 mg oral tablet (15 sources)Serotonin-3 Receptor AntagonistStart: 87-28-6607jwqa 2 tablets by mouth twice dailyOndansetron Hcl (Zofran) 4 mg Tablet Active 2 TAB PO Twice daily February 02, 2020 12:00amStart: 11-11-2017 End: 61-13-6215rjpsopfdbca (ZOFRAN-ODT) disintegrating tablet 4 mgStart: 11-09-2017 End: 87-84-5172snzq 4 mg intravenous route every six hours as needed End: 93-26-1905pjigjtamkor (Zofran) 4 MG tablet 1 (one) time each day at the same time. 06/26/2024 Discontinuedpantoprazole 40 mg delayed release oral tablet (20 sources)Proton Pump InhibitorStart: 02-02-2020 End: 78-50-8181rvqt 1 tablet by mouth once daily before breakfastpantoprazole (PROTONIX) 40 mg EC tablet Indications: Gastroesophageal reflux disease, unspecified whether esophagitis present Take 1 tablet (40 mg total) by mouth every morning before breakfast. TAKE1 TABLET IN THE MORNING AND AT BEDTIME 01/29/2025 ActiveStart: 45-16-5002ezyp 1 tablet by mouth twice dailyPantoprazole [address] Tab 40 mg = 1 tab(s), Oral, BID, Refills(s) 0 Start Date: 12/08/19 Status: OrderedStart: 11-09-2017 End: 04-32-599722 hr propranolol hydrochloride 60 mg extended release oral capsule (20 sources)beta-Adrenergic BlockerStart: 02-18-2024 End: 64-26-0421yjxvqsczwvm LA (Inderal LA) 60 MG 24 hr capsule Indications: Migraine without aura and without status migrainosus, not intractable TAKE 1 CAPSULE DAILY. DO NOT CRUSH, CHEW OR SPLIT 90 capsule 3 05/02/2025 Activetake 1 tablet by mouth in the morningpropranoloL (INDERAL) 60 mg tablet Take 1 tablet (60 mg total) by mouth in the morning. ActiveQUEtiapine 50 mg oral tablet (20 sources)Atypical AntipsychoticStart: 85-22-2262bjgn 1 tablet by mouth once dailyQUEtiapine (SEROquel) 50 mg tablet Take 1 tablet (50 mg total) by mouth nightly. 11/15/2024 ActiveStart: 18-22-8762zeot 1 tablet by mouth once daily QUEtiapine (SEROquel) 400 mg tablet Take 1 tablet (400 mg total) by mouth nightly. 08/19/2022 ActiveStart: 05-14-1186Ejebckznno (Seroquel Xr) 300 mg Tablet Extended Release 24 Hr Active 600 MG PO Daily at bedtime 2019 12:00amStart: 02-29-4702aefk 50 mg by mouth once daily in the eveningSeroquel 50 mg, Oral, qPM, Refills(s) 0 Start Date: 12/08/19 Status: OrderedStart: 11-09-2017 End: 17-12-3918CGJvegrnvp (SEROQUEL) 25 MG tablet Take 200 mg by mouth nightly 0 Activetake 300 mg by mouth onceQUEtiapine (SEROQUEL) 200 MG tablet Indications: BIPOLAR Take 300 mg by mouth nightly TAKES 1 TABLET . Activesennosides, care home 17.2 mg oral tablet (20 sources)Start: 28-00-7991msqk 2 tablets by mouth once daily at bedtime Sennosides (Senna) 8.6 mg Tablet Active 17.2 MG PO Daily at bedtime February 02, 2020 12:00amStart: 61-90-7892hijwlugpgp 17.2 MG tablet 17.2 mg 11/15/2023 Active levothyroxine sodium 0.05 mg oral tablet (20 sources)l-ThyroxineStart: 01-31-2025 End: 17-00-9420kletbuanitugo (SYNTHROID, LEVOTHROID) 50 MCG tablet Indications: Hypothyroidism, unspecified type TAKE 1 TABLET EVERY MORNING 90 tablet 3 07/09/2025 ActiveStart: 19-64-9876xseumvuzwvzww (SYNTHROID, LEVOTHROID) 50 MCG tablet Indications: Hypothyroidism, unspecified type TAKE 1 TABLET DAILY 90 tablet 1 08/07/2024 ActiveStart: 01-72-9644mbma 1.5 tablets by mouth once daily levothyroxine 50 mcg (0.05 mg) Tab 1.5 tab, Oral, Daily, # 30 tab(s), Refills(s) 0 Start Date: 02/04/21 Status: OrderedStart: 11-10-2017 End: 35-94-1638Oorrq: 85-83-3363vbpj 1 tablet by mouth once daily at bedtime Levothyroxine (Synthroid) 25 mcg Tablet Active 25 MCG PO Daily at bedtime February 02, 2020 12:00amtiZANidine 4 mg oral tablet (3 sources)Central alpha-2 Adrenergic AgonistStart: 11-46-2258dwws 4 mg by mouth once daily at bedtimeTizanidine Active 4 MG PO Daily at bedtime February 06, 2020 12:00amubrogepant 100 mg oral tablet (20 sources)Start: 01-15-2025 End: 11-30-2912ZDFRIYY 100 mg tablet Take 1 tablet by mouth. 01/15/2025 01/15/2026 ActiveStart: 11-26-2023 End: 79-59-3805Xoneenvvvr (Ubrelvy) 100 MG tablet Indications: Migraine without aura and without status migrainosus, not intractable (CMS/HCC) Ubrelvy 100 mg tablet 30 tablet 11 11/26/2023 06/26/2024 Discontinuedvalsartan 80 mg oral tablet (20 sources)Angiotensin 2 Receptor BlockerStart: 08-02-2024 End: 19-02-5672lskytoqfs (DIOVAN) 80 mg tablet Indications: Essential hypertension TAKE 1 TABLET DAILY AT NOON 90 tablet 1 04/13/2025 ActiveStart: 29-63-7286dpzz 1 tablet by mouth once dailyvalsartan 160 mg Tab 160 mg = 1 tab(s), Oral, Daily, Refills(s) 0 Start Date: 02/04/21 Status: Impvxgu28 hr venlafaxine 150 mg extended release oral capsule (7 sources)Serotonin and Norepinephrine Reuptake InhibitorStart: 77-93-0095qxxs 1 capsule by mouth once dailyVenlafaxine (Effexor Xr) 150 mg Capsule,Extended Release 24hr Active 150 MG PO Daily February 02, 202012:00amStart: 11-10-2017 End: 64-10-7245mfle 3 capsules by mouth once dailyvenlafaxine (EFFEXOR XR) 150 MG extended release capsule Take 450 mg by mouth daily 0 Activetake 1 capsule by mouth once daily in the morningvenlafaxine (EFFEXOR-XR) 150 MG 24 hr capsule Indications: DEPRESSION Take 150 mg by mouth every morning TAKES 3 TABLETS ReasonsDEPRESSION. Activeverapamil hydrochloride 80 mg oral tablet (20 sources)Calcium Channel BlockerStart: 01-15-2025 End: 51-87-3804dvly 1 tablet by mouth in the morningverapamiL (CALAN) 80 mg tablet Take 1 tablet (80 mg total) by mouth in the morning. 01/15/202501/15 Activevitamin b12 1 mg oral tablet (20 sources)Vitamin D82Zhkmk: 05-10-2024 End: 97-22-7846fumu 1 tablet by mouth once daily in the morningcyanocobalamin 1000 MCG tablet Indications: Cobalamin deficiency take 1 tablet by mouth every morning 90 tablet 1 05/10/2024 ActiveVitamin B12 1000 mcg Tab (7 sources)Start: 46-78-0485klkp 1 tablet by mouth once dailyVitamin B12 1000 mcg Tab 1,000 mcg = 1 tab(s), Oral, Daily, # 30 tab(s), Refills(s) 0 Start Date: 02/04/21 Status: OrderedVitamin D3 (7 sources)Start: 33-84-6564Wcizgmu D3 5,000 International_Unit, Oral, Daily, Refills(s) 0 Start Date: 12/08/19 Status: Orderedwarfarin sodium 5 mg oral tablet (20 sources)Vitamin K AntagonistStart: 12-08-2019 End: 99-09-9712dnviszhv (COUMADIN) 5 mg tablet Indications: Lupus anticoagulant disorder Take 1/2 to 1 tablet OnceDaily [facility] 90 tablet 3 03/23/2025 ActiveStart: 11-11-2017 End: 88-22-4026ohqvacub (COUMADIN) tablet 7.5 mgStart: 11-10-2017 End: 62-41-1456rylvxgbi (COUMADIN) tablet 5 mgStart: 11-09-2017 End: 49-30-1073sgwmwfgh (COUMADIN) tablet 2.5 mgwarfarin (Coumadin) 5 MG tablet 1 (one) time each day at the same time. Activewarfarin (COUMADIN) 7.5 MG tablet Take 7.5 mg by mouth daily 7. Mg t,w,f,s,s, and 10 mg and 0 Active zolpidem tartrate 10 mg oral tablet (20 sources)gamma-Aminobutyric Acid-ergic AgonistStart: 49-73-0445jbuhptqk (AMBIEN) 10 mg tablet 12/06/2023 Active End: 80-20-1449tkuu 1 tablet by mouth oncezolpidem (AMBIEN) 10 mg tablet Indications: Sleep-Onset Insomnia Take 10 mg by mouth nightly TAKES 1.5 TABLETS ReasonsSleep-Onset Insomnia. 11/11/2017 Discontinued Completed/Discontinued Medications MedicationDrug Class(es)DatesSig (Normalized)Sig (Original)acetaminophen 325 mg oral tablet (1 source)Start: 11-09-2017 End: 48-97-9512ptoyrxqagymhy (TYLENOL) tablet 975 mgStart: 11-09-2017 End: 66-22-0526jvmaedglxqpxv (TYLENOL) tablet 975 mgacetaminophen 300 mg / butalbital 50 mg oral capsule (7 sources)BarbiturateStart: 05-26-2024 End: 20-92-2064unkk 1 capsule by mouth onceButalbital-Acetaminophen 50-300 MG capsule Indications: Migraine without aura and without status migrainosus, not intractable (CMS/HCC) Take 1 capsule by mouth every 12 (twelve) hours if needed (migraine) 60 capsule 2 05/26/2024 06/15/2024 DiscontinuedStart: 11-15-2023 End: 57-39-3380Dsrruyddhs-Acetaminophen 50-300 MG capsule See Instructions, Instructions: 1 cap(s) Oral, PRN: as needed for headache, 0 Refill(s) 11/15/2023 05/26/2024 Discontinued (Reorder)acetaminophen 325 mg / butalbital 50 mg / caffeine 40 mg oral tablet (11 sources)Barbiturate, Central Nervous System Stimulant, MethylxanthineStart: 10-17-2024 End: 53-68-8515eozp 1 tablet by mouth every six hours as needed for headache vtwrtbtoks-iwphpxcaickss-nozt (FIORICET, ESGIC) 50-325-40 mg per tablet Take 1 tablet by mouth every 6 (six) hours as needed for headaches or migraine. 10/17/2024 01/29/2025 Discontinued (Duplicate Listing)Start: 06-15-2024 End: 77-80-4670mlid 1 tablet by mouth every six hours for headache sbqajdmbbm-kyfaomvevpovu-tniarala (Esgic) 50-325-40 MG tablet Indications: Migraine without aura and without status migrainosus, not intractable (CMS/HCC) Take 1 tablet by mouth every 6 (six) hours if needed for headaches or migraine 20 tablet 2 06/15/2024 07/15/2024 Activealbuterol 0.83 mg/ml inhalation solution (20 sources)beta2-Adrenergic AgonistStart: 12-28-2024 End: 02-19-8834xdzw 3 mL by inhalation four times dailyalbuterol (PROVENTIL,VENTOLIN) 2.5 mg /3 mL (0.083 %) nebulizer solution Indications: Mild persistent asthma without complication Inhale 3 mL (2.5 mg total) by nebulization 4 (four) times a day. 75 mL 1 12/28/2024 07/03/2025 Discontinued (Duplicate Listing)Start: 57-41-8448sdpeiihuz (PROVENTIL HFA;VENTOLIN HFA) 90 mcg/actuation inhaler Indications: Mild persistent asthmawithout complication USE 2 INHALATIONS EVERY 6 HOURS NEEDED FOR WHEEZING 17 g 6 11/08/2024 Active Start: 03-08-2024 End: 17-00-5292aggz 2 puff(s) by inhalation every six hours as needed for wheezingalbuterol (PROVENTIL HFA;VENTOLIN HFA) 90 mcg/actuation inhaler Indications: Mild persistent asthmawithout complication Inhale 2 puffs every 6 (six) hours as needed for wheezing. 18 g 3 03/08/2024 11/08/2024 Discontinued Start: 10-81-4935sawmzkfud HFA 90 mcg/act inhaler 07/24/2022 ActiveStart: 11-87-7926xqzk 2.5 mg by inhalation four times dailyAlbuterol Sulfate Active 2.5 MG INHALATION Four times daily February 02, 2020 12:00amStart: 93-09-2098qounmmshe 2.5 mg, NEB, Refills(s) 0, Asthma Start [...] mg/ml oral suspension (1 source)Start: 11-09-2017 End: 52-85-0931dajw 30 mL by mouth every four hours as neededbisacodyl 10 mg rectal suppository (1 source)Stimulant LaxativeStart: 11-09-2017 End: 75-54-9028Gkqgwyriwx-Formoterol Hfa 80 McG-4.5 McG/Actuation Aerosol Inhaler (1 source)Corticosteroid, beta2-Adrenergic AgonistStart: 11-09-2017 End: 38-48-5204opcxvxb chloride 0.0014 meq/ml / potassium chloride 0.004 meq/ml / sodium chloride 0.103 meq/ml / sodium lactate 0.028 meq/ml injectable solution (1 source)Start: 11-09-2017 End: 27-32-7696xouhtcma Ringers infusionceFAZolin 2000 mg injection (1 source)Cephalosporin AntibacterialStart: 11-09-2017 End: 23-37-8893iarh 2000 mg intravenous route every eight hoursdiazePAM 5 mg oral tablet (3 sources)BenzodiazepineStart: 11-09-2017 End: 81-41-0281dgua 2.5 mg by mouth twice dailydiazePAM (VALIUM) 5 MG tablet Indications: DEPRESSION Take 2.5 mg by mouth 2 (two) times a day TAKES 1 TABLET . Activediclofenac sodium 0.01 mg/mg topical gel (20 sources)Nonsteroidal Anti-inflammatory DrugStart: 03-07-2024 End: 41-23-7493dgwzrjcqzj sodium (VOLTAREN) 1 % gel Indications: Generalized osteoarthritis APPLY 2 GM TOPICALLY IN THE MORNING, AT NOON, IN THE EVENING, AND BEFORE BEDTIME 300 g 1 03/07/2024 07/03/2025 Discontinued (Ineffective)Start: 98-31-1277spdsffggcd sodium 1 % gel 11/24/2022 ActiveDiphenhydramine 50 Mg/Ml Injection Solution (3 sources)Histamine-1 Receptor AntagonistStart: 11-10-2017 End: 21-56-9210wxlluntdjoPBVMM (BENADRYL) injection 25 mgStart: 11-10-2017 End: 70-09-2950jsrxsoqognEVJLE (BENADRYL) 50 mg/mL injection - ADS Override Pull Start: 11-10-2017 End: 80-04-0657mtjybknylfVKTVS (BENADRYL) injection 25 mgdocusate sodium 50 mg / sennosides, care home 8.6 mg oral tablet (5 sources)Start: 11-09-2017 End: 13-34-5950cnjnv-docusate (SENNA-S) 8.6-50 mg Take 1 (one) tablet to 2 (two) tablets by mouth 2 (two) times a day for 7 days. 20 tablet 0 11/11/2017 11/11/2017 Discontinued1 ml enoxaparin sodium 100 mg/ml prefilled syringe (10 sources)Low Molecular Weight HeparinStart: 06-15-2025 End: 45-50-6756vbmzzh 1 mL by subcutaneous injection onceenoxaparin (LOVENOX) 100 mg/mL syringe Indications: Lupus anticoagulant disorder , Personal historyof DVT (deep vein thrombosis) Inject 1 mL (100 mg total) under the skin Every 12 (twelve) hours. 20mL 1 06/15/2025 07/03/2025 Discontinued (Therapy completed) Start: 11-13-2017 End: 95-32-7555fnyw 80 mg by subcutaneous injection every twelve hoursenoxaparin (LOVENOX) 80 mg/0.8 mL Syrg Inject 0.8 mL (80 mg total) under the skin every 12 (twelve)hours for 2 days. 5 Syringe 0 11/13/2017 11/15/2017 ActiveStart: 11-11-2017 End: 13-79-8942wbmxvsjodx (LOVENOX) 40 mg/0.4 mL Syrg Inject 0.4 mL (40 mg total) under the skin daily Take on Wednesday morning 11/12/2017 for 1 day. 1 Syringe 0 11/11/2017 11/12/2017 ActiveStart: 11-10-2017 End: 27-66-5847srgedfbtfs (LOVENOX) syringe 40 mgStart: 11-05-2017 End: 91-50-7038gqbl 80 mg by subcutaneous injection every twelve hoursenoxaparin (LOVENOX) 80 mg/0.8 mL Syrg Inject 0.8 mL (80 mg total) under the skin every 12 (twelve)hours for 6 doses. 6 Syringe 0 11/05/2017 11/08/2017 Activeenoxaparin (LOVENOX) 100 MG/ML injection Inject 1 mg/kg into the skin 2 times daily 0 Activefluticasone propionate 0.05 mg/actuat metered dose nasal spray (3 sources)CorticosteroidStart: 11-09-2017 End: 84-63-6590jpcs 2 spray(s) nasal route twice daily, then take 2 spray(s) nasal routefluticasone (FLONASE) 50 mcg/actuation nasal spray Indications: Allergic Rhinitis Instill 2 sprays into each nostril 2 (two) times a day DOES 2 SPRAYS IN EACH NOSTRIL . Active0.5 ml HYDROmorphone hydrochloride 1 mg/ml prefilled syringe (1 source)Opioid AgonistStart: 11-09-2017 End: 58-90-9701mdop 0.5-1 mg intravenous route every three hours as needed Kanaflex (3 sources)Start: 02-02-2020 End: 12-24-2851pips 4 mg by mouth once daily at bedtimeKanaflex Discontinued 4 MG PO Daily at bedtime February 01, 2020 11:00pm February 06, 2020 2:22pmStart: 02-02-2020 End: 65-17-4204xlmf 4 mg by mouth once daily at bedtimeKanaflex Discontinued 4 MG PO Daily at bedtime February 02, 2020 12:00am February 06, 2020 3:22pm1 ml ketorolac tromethamine 30 mg/ml injection (3 sources)Nonsteroidal Anti-inflammatory Drug, Cyclooxygenase InhibitorStart: 11-10-2017 End: 86-44-4893twzmnrtlg (TORADOL) injection 30 mgStart: 11-10-2017 End: 37-36-2075scrudspgk (TORADOL) 30 mg/mL (1 mL) injection - ADS Override Pull Start: 11-10-2017 End: 68-25-3682dszjwtefy (TORADOL) injection 30 mglamoTRIgine 100 mg oral tablet (3 sources)Mood Stabilizer, Anti-epileptic AgentStart: 11-10-2017 End: 57-46-9070avwc 2 tablets by mouth once daily in [...] mg/ml oral suspension (1 source)Start: 11-09-2017 End: 05-29-5779fynkzbfjw 7.5 mg oral tablet (8 sources)Nonsteroidal Anti-inflammatory Drug End: 83-42-0324hlmfefyzp (Mobic) 7.5 MG tablet 1 (one) time each day at the same time. 06/26/2024 DiscontinuedMemantine Er 7 Mg-14 Mg-21 Mg-28 Mg Capsule,Sprinkle,Ext.Rel.24hr Pack (1 source)S-ggmcqr-B-aspartate Receptor Antagonist End: 99-17-6890kwcp 1 tablet by mouth oncememantine (NAMENDA XR) 7-14-21-28 mg C24k Indications: MIGRAINES Take by mouth nightly TAKES 1 TABLET ReasonsMIGRAINES. 10/18/2017 Discontinuedmetoprolol tartrate 50 mg oral tablet (2 sources)beta-Adrenergic BlockerStart: 11-09-2017 End: 55-93-9885vctecdlq sulfate 15 mg extended release oral tablet (1 source)Opioid Agonist End: 22-68-0169dsxe 1 tablet by mouth every twelve hoursmorphine (MS CONTIN) 15 MG 12 hr tablet Take 15 mg by mouth every 12 (twelve) hours TAKES 1 TABLET . 10/18/2017 Discontinuednaloxone (NARCAN) injection 0.1 mg (1 source)Start: 11-09-2017 End: 32-41-6314skzbragb (NARCAN) injection 0.1 mgpolyethylene glycol 3350 142 mg/ml oral solution (3 sources)Osmotic LaxativeStart: 11-09-2017 End: 12-40-8251oqsgldxxunwn glycol (MIRALAX) 17 gram powder Indications: constipation Take 17 g by mouth daily as needed MIXES WITH LIQUIDS. Active prochlorperazine 10 mg oral tablet (8 sources)Phenothiazine End: 47-91-1546vkqfzzytcptzyrgp (Compazine) 10 MG tablet every 8 (eight) hours. 06/26/2024 Discontinuedpromethazine hydrochloride 25 mg oral tablet (8 sources)Phenothiazine End: 01-49-1782ynir 1 tablet by mouth every six hours as needed for nausea promethazine (Phenergan) 25 MG tablet 1 tablet Oral every 6 hours as needed for nausea 06/26/2024 Ahlpjndtvjyf99 hr scopolamine 0.0139 mg/hr transdermal system (1 source)AnticholinergicStart: 11-09-2017 End: 21-53-0337edawsnsrnef (TRANSDERM-SCOP) 1 mg over 3 days patch 1 patchsodium chloride (2 sources)Start: 11-09-2017 End: 64-91-7346dowrna chloride (PF) (NS) flush 5 mLStart: 11-09-2017 End: 36-46-2213ezpbzfuxnhpx 10 mg oral tablet (3 sources)Start: 11-10-2017 End: 95-84-6877cqmf 1 tablet by mouth once daily in the morningvortioxetine (TRINTELLIX) 10 mg tablet Indications: major depressive disorder Take 10 mg by mouth every morning TAKES 1 TABLET . ActiveXdemvy 0.25 % solution (7 sources)Start: 05-17-2024 End: 31-77-9310vjmz 1 drop(s) into the eye(s) twice dailyXdemvy 0.25 % solution INSTILL 1 DROP IN BOTH EYES TWICE DAILY FOR 6 WEEKS 05/17/2024 06/26/2024 Dis continuedStart: 97-53-4306smyc 1 drop(s) into the eye(s) twice dailyXdemvy 0.25 % solution INSTILL 1 DROP IN BOTH EYES TWICE DAILY FOR 6 WEEKS 05/17/2024 Active Problems Active Problems Problem ClassificationProblemDateDocumented DateEpisodic/ChronicAbdominal pain (7 sources)Flank psnw12-49-4130AzsnawiaXtrqdnfp foot deformities (20 sources)Acquired left hallux valgus; Translations: [Hallux valgus (acquired), left foot]Onset: 498145-94-4666TqyibujVwllc cerebrovascular disease (20 sources)Cerebrovascular accident; Translations: [Cerebral infarction, unspecified]Onset: 09-13-1994 Resolved: 222160-51-4915ZkhaktcZfsoltg disorders (20 sources)Anxiety disorder, unspecified; Translations: [Generalized anxiety disorder]Onset: 398607-48-4914LpigeyrOkpvgj (20 sources)Asthma; Translations: [Mild intermittent asthma, uncomplicated] Onset: 400859-94-5894WlxxzqgFfmtzsrwo and vision defects (20 sources)Blindness AND/OR vision impairment level; Translations: [Blindness, one eye, unspecified eye]Onset: 248098-14-4552XqtucoaZvddqmwd (20 sources)Cataract; Translations: [Unspecified cataract]Onset: 07-26-2023 93-54-8708EuxuyweHjayfbk kidney disease (20 sources)Chronic kidney disease stage 3; Translations: [Chronic kidney disease, stage 3 unspecified ([facility])]Onset: 06-12-2021 Resolved: 438165-84-7672MjtjwjqBdplypmbzkt and hemorrhagic disorders (20 sources)Antiphospholipid syndrome; Translations: [Antiphospholipid syndrome] Onset: 319602-17-4046SmsjdjhFgrdqgar atherosclerosis and other heart disease (20 sources)Coronary arteriosclerosis; Translations: [Atherosclerotic heart disease of [place] coronary artery without angina pectoris]Onset: 09-27-2016 11-40-0425FxibppcZscinhij mellitus without complication (4 sources)Type 2 diabetes mellitus; Translations: [Type 2 diabetes mellitus without complications]Onset: 320043-40-4732UveoxijIwvsjklqj of lipid metabolism (20 sources)Hyperlipidemia; Translations: [Hyperlipidemia, unspecified]Onset: 867302-19-2246ZrvnqhcLojvyvyvq of lipid metabolism (2 sources)Pure hypercholesterolemia, unspecified; Translations: [Pure hypercholesterolemia, unspecified]Onset: 99-22-3708Ixtunbnutx disorders (20 sources)Gastroesophageal reflux disease; Translations: [Gastro-esophageal reflux disease without esophagitis]Onset: 358813-69-3710FxvjzouKiazhajhk hypertension (20 sources)Hypertensive disorder; Translations: [Essential (primary) hypertension]Onset: 873944-14-7914BjwfulxUbycbgzvj and duodenitis (20 sources)Chronic antral gastritis; Translations: [Unspecified chronic gastritis without bleeding]Onset: 754188-75-8853UycmivpQtmryygfgemfu symptoms and ill-defined conditions (13 sources)Post-micturition incontinence ; Translations: [Urinary incontinence] 90-43-9605JblktgpZbvgbdklijqik symptoms and ill-defined conditions (20 sources)Preet hematuria; Translations: [History of urinary tract infection] 31-97-4425CpihfvacWohojkuc (20 sources)Glaucoma; Translations: [Unspecified glaucoma]Onset: 11-02-2019 82-37-7477LlqsnkvOtnpvtbb; including migraine (20 sources)Migraine without aura, not intractable, without status migrainosus; Translations: [Migraine]Onset: 023851-00-2895QezmpueMpjxwlxmgmfo; infection of eye (except that caused by tuberculosis or sexually transmitteddisease) (20 sources)Optic neuritis; Translations: [Disorder of optic nerve]Onset: 141838-67-4335QdpmdteCfkl disorders (20 sources)Bipolar disorder; Translations: [Bipolar disorder, unspecified] Onset: 573238-39-6360TnncuizTfgvlejxypw deficiencies (20 sources)Vitamin D deficiency; Translations: [Vitamin D deficiency, unspecified]Onset: 369467-93-5127FcpcotfVaglxudfplyyrg (20 sources)Unilateral primary osteoarthritis, left hip; Translations: [Osteoarthritis of hip]Onset: 249015-94-6057DdodoykHriga aftercare (2 sources)Aftercare following joint replacement surgery; Translations: [Aftercare following joint replacementsurgery]Onset: 51-83-1817DmfritaUimck aftercare (20 sources)Long-term current use of anticoagulant; Translations: [[facility] (current) use of 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]Onset: 826640-73-0321FzopkwmuUvxdl and unspecified benign neoplasm (7 sources)History of polyp of colon; Translations: [Personal history of adenomatous and serrated colon polyps]Onset: 652540-46-5422LctizonaQxxdw and unspecified benign neoplasm (14 sources)Adenomatous polyp of colon ; Translations: [Benign neoplasm of transverse colon]Onset: 057989-22-3374MqbyspqyXrbvx and unspecified benign neoplasm (1 source)Benign neoplasm of transverse colon; Translations: [Benign neoplasm of transverse colon]Onset: 27-09-8072GwqazfbqJbjue and unspecified benign neoplasm (1 source)Benign neoplasm of sigmoid colon; Translations: [Benign neoplasm of sigmoid colon]Onset: 34-23-5871EchojjekCluxs circulatory disease (20 sources)Device in situ; Translations: [Presence of other vascular implants and grafts]Onset: 890623-86-2870IsdydmtUvrls circulatory disease (2 sources)Personal history of transient ischemic attack (TIA), and cerebral infarction without residual deficits; Translations: [Personal history of transient ischemic attack (TIA), and cerebral infarction without residual deficits]Onset: 76-85-3544XsrzjqxcThtww connective tissue disease (2 sources)Presence of left artificial hip joint; Translations: [Presence of left artificial hip joint]Onset: 76-97-7209SzazdjtQhvck connective tissue disease (20 sources)Hip joint prosthesis present; Translations: [Presence of left artificial hip joint]Onset: 742986-25-9334EgkicvsDmyzb connective tissue disease (2 sources)Fibromyalgia; Translations: [Fibromyalgia]Onset: 43-74-2916Lsdhwprs Other connective tissue disease (7 sources)Evomiwvzqphi36-43-6062SdkzydotVkilq ear and sense organ disorders (20 sources)Sensorineural hearing loss, bilateral; Translations: [Sensorineural hearing loss, bilateral]Onset: 810817-08-1375NoiilmvZqotm eye disorders (20 sources)Ischemic optic neuropathy; Translations: [Ischemic optic neuropathy, unspecified eye]Onset: 874224-04-8471LuzohyvXtenm eye disorders (20 sources)Optic atrophy of right eye; 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, right eye]Onset: 687416-60-7325WxjluxeQksim inflammatory condition of skin (5 sources)Lupus erythematosus; Translations: [Discoid lupus erythematosus] Onset: 558519-63-1927HifsiroXnayd injuries and conditions due to external causes (1 source)Unspecified injury of left lower leg, initial encounter; Translations: [Unspecified injury of left lower leg, initial encounter]Onset: 03-04-2025 EpisodicOther nervous system disorders (20 sources)Chronic pain; Translations: [Other chronic pain]Onset: 09-27-2016 28-43-6749SynlumkKiqlg nervous system disorders (20 sources)Inattention; Translations: [Attention and concentration deficit] Onset: 002675-64-1460FvofvfsFbfgi nervous system disorders (20 sources)Difficulty walking; Translations: [Difficulty in walking, not elsewhere classified]Onset: 045447-26-8565SbibfjbVeyeo nutritional; endocrine; and metabolic disorders (2 sources)Other obesity; Translations: [Other obesity]Onset: 32-87-1221Ohytcsx Other nutritional; endocrine; and metabolic disorders (20 sources)Obese class I; Translations: [Obesity (BMI 30.0-34.9)]Onset: 801673-13-4479NalzinaSjocz nutritional; endocrine; and metabolic disorders (20 sources)Morbid obesity; Translations: [Morbid (severe) obesity due to excess calories]Onset: 486362-88-6005PhwkepdNtixm nutritional; endocrine; and metabolic disorders (1 source)Morbid (severe) obesity due to excess calories; Translations: [Morbid (severe) obesity due to excess calories]Onset: 75-91-8553YoxcvzjBsxqn screening for suspected conditions (not mental disorders or infectious disease) (16 sources)Encounter for screening for malignant neoplasm of cervix; Translations: [Encounter for screening mammogram for malignant neoplasm of breast]Onset: 38-63-7255VmsrvjrxKalot upper respiratory disease (20 sources)Chronic rhinitis; Translations: [Chronic rhinitis]Onset: 11-21-2018 44-01-7500UanhmhlNxyzr upper respiratory disease (3 sources)Bleeding from nose; Translations: [Epistaxis]89-63-5412Njfiaygo Phlebitis; thrombophlebitis and thromboembolism (20 sources)Chronic deep venous thrombosis of thigh; Translations: [Chronic embolism and thrombosis of unspecified deep veins of unspecified proximal lower extremity]Onset: 882867-24-4022NgtpnqiVrhvkdil codes; unclassified (2 sources)Other insomnia; Translations: [Other insomnia]Onset: 08-16-2018 ChronicResidual codes; unclassified (2 sources)Other specified health status; Translations: [Other specified health status]Onset: 16-38-0623KkhaurbrJgtzrehw codes; unclassified (1 source)Family history of malignant neoplasm of other organs or systems; Translations: [FAM HX MALIG NEOPLASM OTH ORGN/SYS]Onset: 05-34-0923Lntnuazi Residual codes; unclassified (4 sources)Postmenopausal state; Translations: [Asymptomatic menopausal state] 07-07-0408SnvukkulDekmsowrdeu; intervertebral disc disorders; other back problems (20 sources)Degeneration of lumbar intervertebral disc; Translations: [Degeneration of lumbar intervertebral disc]Onset: 977023-03-0438Nudzunb Systemic lupus erythematosus and connective tissue disorders (20 sources)Systemic lupus erythematosus; Translations: [Systemic lupus erythematosus, unspecified]Onset: 946495-08-4179NecaafsXmsfpkk disorders (20 sources)Hypothyroidism; Translations: [Hypothyroidism, unspecified]Onset: 09-27-2016 Resolved: 672017-36-2957SwsctdySuhsmxaxy cerebral ischemia (20 sources)Transient cerebral ischemia; Translations: [Transient cerebral ischemic attack, unspecified]Onset: 723857-94-8537QokmxhgCmrpmrmpdnhb (7 sources)Finding of sensation of jjipint40-92-4564Tybblqczcvni (3 sources)Autogenerated ProblemOnset: 346847-02-9899Eavcwnlokwqb (1 source)mawOnset: 53-27-1231Zdpmpcqcbnyd (1 source)Thyroid ProblemOnset: 46-41-0273Ygublgknwtzf (1 source)Personal history of adenomatous and serrated colon polyps; Translations: [Personal history of adenomatous and serrated colon polyps]Onset: 45-97-2561Dnleazbjzbwf (1 source)screeningOnset: 28-98-1935Aoquxwshaorm (1 source)MNT - IndividualOnset: 39-02-2682Jkxkfjl tract infections (7 sources)Postinfective urethral stricture of lsetys76-25-6397Sculvnlb Past or Other Problems Problem ClassificationProblemDateDocumented DateEpisodic/Chronic Administrative/social admission (20 sources)Problem related to life management difficulty; Translations: [Other problems related to life management difficulty]Onset: 406436-11-6268 EpisodicCalculus of urinary tract (20 sources)Kidney stone; Translations: [Calculus of kidney]Onset: 05-20-2022 15-64-4378DiyvphpnQypttjsfgu and other anemia (20 sources)Anemia; Translations: [Anemia, unspecified]Onset: 12-08-2021 90-52-4281QhwkydloEntfdvvxbn and other anemia (20 sources)Iron deficiency anemia; Translations: [Iron deficiency anemia, unspecified]Onset: 04-12-2014 Resolved: 859739-82-2774RdrhteqaFqdwvrzzoz and other anemia (1 source)Iron deficiency anemia, unspecified; Translations: [Iron deficiency anemia, unspecified]Onset: 43-37-5354GrfozqnyJknmfudg mellitus without complication (2 sources)Impaired fasting glycemia; Translations: [Impaired fasting glucose] Onset: 982479-96-2538JkfeiukrU Codes: Fall (9 sources)Fall; Translations: [Unspecified fall, initial encounter]Onset: 449062-39-8962RxuykqasIrovtifw, including migraine (20 sources)Headache; Translations: [Chronic headache disorder]Onset: 09-27-2016 16-43-2814JhdjyfaaLttwyayaxkwfg and screening for infectious disease (2 sources)Encounter for screening for human papillomavirus (HPV); Translations: [Encounter for immunization]Onset: 04-22-8035FpgeyyhcDvpfjig and fatigue (20 sources)Fatigue; Translations: [Other fatigue]Onset: EpisodicMood disorders (20 sources)Other specified depressive episodes; Translations: [Mood disorders] Onset: 07-20-2024 Resolved: 832324-41-0600Fkoxhpvpvug deficiencies (2 sources)Deficiency of other specified B group vitamins; Translations: [Deficiency of other specified B group vitamins]Onset: 73-63-0417XwbgeqdxGioqc aftercare (20 sources)Polypharmacy ; Translations: [Other mcfp (current) drug therapy]Onset: 400431-72-7713NuxubupqJqeqc aftercare (20 sources)Patient encounter status; Translations: [Encounter for therapeutic drug level monitoring]Onset: 010512-57-6471JombfyvoQqeey aftercare (1 source)Other director long term care (current) drug therapy; Translations: [Other director long term care (current) drug therapy]Onset: 16-76-3712OejoghtzFoasu aftercare (1 source)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; Translations: [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]Onset: 77-82-5135BlcgilwfJipri circulatory disease (2 sources)Elevated blood-pressure reading, without diagnosis of hypertension; Translations: [Elevated blood-pressure reading, without diagnosis of hypertension]Onset: 65-28-4303IajbpcrfXcrxh circulatory disease (20 sources)History of cerebrovascular accident; Translations: [Personal history of transient ischemic attack (TIA), and cerebral infarction without residual deficits]Onset: 491648-49-2998YlhypxkhQojsk connective tissue disease (20 sources)Primary fibromyalgia syndrome; Translations: [Fibromyalgia]Onset: 767398-66-3355GttaeibqVefgo connective tissue disease (20 sources)Muscle weakness; Translations: [Muscle weakness (generalized)]Onset: 348356-41-2742YfdiixrbFryin diseases of veins and lymphatics (9 sources)Disorder of vein; Translations: [Disorder of vein, unspecified]Onset: 870690-01-3302DkolvldoYjtlv ear and sense organ disorders (20 sources)Bilateral tinnitus; Translations: [Tinnitus, bilateral]Onset: 394305-05-7952RsjseppcImmbc ear and sense organ disorders (20 sources)Tinnitus; Translations: [Tinnitus, unspecified ear]Onset: 03-29-2023 56-31-9931IsitshqcIkyfs endocrine disorders (20 sources)Syndrome of inappropriate vasopressin secretion; Translations: [Syndrome of inappropriate secretionof antidiuretic hormone]Onset: 05-20-2022 Resolved: 283825-78-8230EsgrsfoQioic gastrointestinal disorders (20 sources)Constipation; Translations: [Constipation, unspecified]Onset: 650341-06-0607EbwxfjosBnjeo infections; including parasitic (20 sources)Personal history of other infectious and parasitic diseases; Translations: [History of 2019 novel coronavirus disease (COVID-19)]Onset: 465075-03-8429YkhbamxlVpavz injuries and conditions due to external causes (20 sources)Hematoma; Translations: [Other injury of unspecified body region, initial encounter]Onset: 026279-45-6321ZpgjmsqnAlrjt injuries and conditions due to external causes (20 sources)History of fall; Translations: [History of falling]Onset: 10-23-2021 Resolved: 220462-29-3246YoeemnvzCnxva injuries and conditions due to external causes (9 sources)Sequelae of injuries of lower limb ; Translations: [Unspecified injury of unspecified lower leg, sequela]Onset: 555569-79-5811Llxdetys Other nervous system disorders (20 sources)Metabolic encephalopathy; Translations: [Metabolic encephalopathy] Onset: 09-27-2016 Resolved: 505553-13-1554LurbkdyIolob nervous system disorders (1 source)Disorder of brain; Translations: [Encephalopathy, unspecified] Resolved: 061671-64-3669GnumhobUxiar nervous system disorders (20 sources)Ataxia; Translations: [Ataxia, unspecified]Onset: 03-29-2023 51-25-8687TimfpkxlCxjfv nervous system disorders (20 sources)Impaired cognition; Translations: [Other symptoms and signs involving cognitive functions and awareness]Onset: 431786-54-0608Exmxaqzp Other nervous system disorders (20 sources)Finding related to ability to move; Translations: [Other abnormalities of gait and mobility]Onset: 167223-52-6262SthyuvylSuggm nervous system disorders (9 sources)Abnormal gait; Translations: [Unspecified abnormalities of gait and mobility]Onset: 547151-32-3915FpshbbysKxgnoanxp; thrombophlebitis and thromboembolism (20 sources)Deep venous thrombosis; Translations: [Personal history of other venous thrombosis and embolism]Onset: 813646-02-5511HuidhawpUcsnrrca codes; unclassified (2 sources)Other specified personal risk factors, not elsewhere classified; Translations: [Other specified personal risk factors, not elsewhere classified] Onset: 40-37-0787UxvaoixoRkbjeqge codes; unclassified (2 sources)Insomnia, unspecified; Translations: [Insomnia, unspecified]Onset: 21-31-5218OrmxthsgRlypdzkk codes; unclassified (20 sources)Altered mental status; Translations: [Altered mental status, unspecified]Onset: 014858-52-5327EfqfhezeUmofnmrd codes; unclassified (20 sources)Delirium; Translations: [Disorientation, unspecified]Onset: 001714-37-6311HwdqhtxpBdmerwwc codes; unclassified (20 sources)History of cardiac catheterization; Translations: [Other specified postprocedural states]Onset: 921536-34-5673MddnhhygVyvwyysr codes; unclassified (20 sources)Insomnia; Translations: [Insomnia, unspecified]Onset: 10-23-2021 25-33-9589DvdrhuchEmaineywcka; intervertebral disc disorders; other back problems (20 sources)Lumbar radiculopathy; Translations: [Radiculopathy, lumbar region] Onset: 307320-72-5073SrihussgLftmvfypw-aselayn disorders (20 sources)Misuse of prescription only drugs; Translations: [Other psychoactive substance use, unspecified, uncomplicated]Onset: 944284-17-3469Jyyachwn Superficial injury; contusion (20 sources)Contusion of left thigh; Translations: [Contusion of left thigh, initial encounter]Onset: 515179-06-3411IdngxjoaMnpguqfszqyj (20 sources)Personal history of other medical treatment; Translations: [H/O: blood transfusion]Onset: 812878-41-3029HvfxuiwaSrygg infection (20 sources)Disease caused by 2019-nCoV; Translations: [COVID-19]Onset: 437100-27-5956Qbzdavac Results Test NameValueInterpretationReference RangeFacilityConsent Formson 07-23-2025 Consent [id number]#1.00OTGTParkview Health [facility] Intraoperative Recordon 85-04-4709YMOA Intraoperative RecordMAGR Intra-Op Record Summary Primary Physician: LINA SCHWAB MD Finalized Date/Time: 07/23/25 12:53:18 Pt. Name: NOEMI BRAND /Sex: 1960 FEMALE Med Rec #: [id number] Physician: LINA SCHWAB MD Financial #: [id number] Pt. Type: D Room/Bed: / Admit/Disch: 07/20/25 [...] Erica RN Ayers, Monica MA Role Performed Licensed Retail Supervisor Licensed Retail Supervisor Cut Off Sawyer Time In 07/20/25 10:53:00 07/20/25 10:53:00 07/20/25 10:53:00 Time Out 07/20/25 10:58:00 07/20/25 10:58:00 07/20/25 10:58:00 Procedure EPIDURAL STEROID INJ EPIDURAL STEROID INJ EPIDURAL STEROID INJ TRANSFORAMINAL TRANSFORAMINAL TRANSFORAMINAL THOR(Bilateral) THOR(Bilateral) THOR(Bilateral) Last Modified By: Troy RN, Socorro Simmons RN, Scoorro Simmons RN, Socorro 07/20/25 10:57:31 07/20/25 10:57:31 07/20/25 10:57:31 Entry 4 Entry 5 Entry 6 Case Attendee Iveth Anderson RT (R) Vikas Cody RT (R) Love Winkler CT MEDICAL AUDITOR Role Performed Iron Pellet Tester Iron Pellet Tester Scrub Personnel Time In 07/20/25 10:53:00 07/20/25 [...] RT (R), Nikhil Collins (more content not included)...[facility] Patient Summaryon 57-71-0194Fzuwqnuqp Patient Summary[address] [address] Patient Discharge Instructions Name: NOEMI BRAND : 1960 Patient Address: [address] [place] [address] Primary Care Provider: Name: ALEXANDER CHEN After you are discharged if you find you have any questions, please, call [phone] ext [phone] to speak to a nurse. Discharge Diagnosis: Prescription Information: If you have been given a prescription for narcotics, seek immediate medical attention if you have any difficulty breathing or any sudden status changes such as confusion andsleepiness. If you or anyone you know is experiencing suicidal thoughts, mental health, alcohol and/or drug addiction problems; contact the [facility] 05/04 Crisis Hotline -Text 4HPFT to 110579. If you received any narcotics, sedation, or [...] business decisions or sign any legal documents [facility] would like to thank you [...] folic acid (folic aci (more content not included)...[facility] Preoperative Recordon 90-00-6123EBOQ Preoperative RecordMA Pre-Op Record Summary Primary Physician: LINA SCHWAB MD Finalized Date/Time: 07/20/25 11:01:52 Pt. Name: NOEMI BRAND /Sex: 1960 FEMALE Med Rec #: [id number] Physician: LINA SCHWAB MD Financial #: [id number] Pt. Type: D Room/Bed: / Admit/Disch: 07/20/25 [...] Signatures Signed By: Carly Mccall RN 07/20/25 11:01[facility] CenterPatient Handouton 07-20-2025 Patient [facility] [address], [place] [address] Pain Procedure Home Care Instructions For the next 24 hours do not do any of the following activities: - Drive a car or operate heavy machinery - Drink alcoholic beverages - Make legal decisions or sign any contracts Please call the office at [phone] if you have any questions or develop [...] 1 hour: 2 hours: 4 hours: Normal [facility] Protime / INRon 81-09-3730TMC Coag (PPP) [Relative time] 2.1 {INR}Abnormal0.8 - 1.2PSelect [facility] SystemInterpretation and review of laboratory resultsAbnormalProMedica Chillicothe Va [facility] Center SystemEast [facility] City [facility] SystemCoding Summaryon 64-15-4841Foutoq SummaryHTMLBase 64 UtbktjwnYQf0vEl+PGhlYWQ+RO9WPTWyR23jiGTebE0fP9AEJGoPBjpaGXWNHRpGOeMpcmWdKF2wxJPa ZXJu [file] OiB (more content not included)...NormalAkgrdayton va medical center HospitalPOCT Protime / INRon 74-15-5172KXG Coag (PPP) [Relative time]3.1 {INR}Abnormal0.8 - 1.2PSt. Elizabeth HospitalInterpretation and review of laboratory resultsAbnoWellSpan Ephrata Community HospitalIGP,APTIMA HPV,AGE GDLNon 65-37-3675DAX GDLN ACOG TESTINGNote.NOMS HealthcareComment on above:TESTS RESULT FLAG UNITS REF RANGE LAB Clinician Provided Cytology Information Source.............Cervix;Endocervix No. of containers..01 ThinPrep Vial Age Algo ACOG Trudy... 31- FLAG LEGEND: L-Low Normal,H-High Normal,LL-Alert Low,HH-Alert High <-Panic Low,>-Panic High,A-Abnormal,AA-Critical Abnormal Performed at: 01 =[address] [place] [address] Fatmata Marks MD, HPV APTIMANegativeNegativeNOMS HealthcareComment on above:This nucleic acid amplification test detects fourteen high- risk HPV types (16,18,31,33,35,39,45,51,52,56,58,59,66,68) without differentiation. Performed at: =[address] [id number] Forest Fire Fighter: Fatmata Marks MD, Phone: [phone] Performed at: [address] [id number] Forest Fire Fighter: Fatmata Marks MD, Phone: [phone] IGP, APTIMA HPV, RFX 16/18,45Note.NOMS HealthcareComment on above:TESTS RESULT FLAG UNITS REF RANGE LAB DIAGNOSIS: 02 NEGATIVE FOR INTRAEPITHELIAL LESION OR MALIGNANCY. CELLULAR CHANGES ASSOCIATED WITH ATROPHY ARE PRESENT. Specimen adequacy: 02 Satisfactory for evaluation. Endocervical component may not be distinguished in cases of atrophy. Areas of partially obscuring inflammatory exudate are present. Performed by: 02 Lashawn Gonzalez, Program Director/Morning Show Host ([facility]) . 02 Note: Note 02 [...] ThinPrep(R) pap test was interpreted using the [employer](R) Genius.com(TM) Cervical Algorithm whole slide imaging system. HPV Genotype Reflex Note 02 Criteria not met, HPV Genotype not performed. FLAG LEGEND: L-Low Normal,H-High Normal,LL-Alert Low,HH-Alert High <-Panic Low,>-Panic High,A-Abnormal,AA-Critical Abnormal Performed at: 02 [facility] [address] [place] [address] Fatmata Marks MD, BRUSH-SPATULA CERVIX ENDOCERVIX CLINISYNCNOMD HealthcarePOCT Protime / INRon 91-03-4000EJF Coag (PPP) [Relative time]2.1 {INR}Abnormal0.8 - 1.2ProMedica Health SystemInterpretation and review of laboratory resultsAbnormalProMedica Chillicothe Va [facility] Center SystemProMediKettering Memorial Hospital System Coding Summaryon 53-37-1670Namoaq SummaryHTMLBase 64 YshypefvBOy0xZf+PGhlYWQ+SH1EANCdV58gdJDwuT6wV8BWCDjDNcedSOODMDpDBpMsmuBoIO7yfXIk ZXJu [file] LWN (more content not included)...[facility] CenterConsent Formson 91-95-1239Sdugpdv [id number]#1.00OTGTIFFNoRegency Hospital Cleveland WestInpatient Patient Summaryon 71-56-1503Qdifdntgx Patient Summary [facility] [address] [id number] Patient Discharge Instructions Name: NOEMI BRAND : 1960 Patient Address: [address] [place] [address] Primary Care Provider: Name: ALEXANDER CHEN After you are discharged if you find you have any questions, please, call [phone] ext [phone] to speak to a nurse. Discharge Diagnosis: Prescription Information: If you have been given a prescription for narcotics, seek immediate medical attention if you have any difficulty breathing or any sudden status changes such as confusion andsleepiness. If you or anyone you know is experiencing suicidal thoughts, mental health, alcohol and/or drug addiction problems; contact the [facility] 05/04 Crisis Hotline -Text 4HOPE to 253219. If you received any narcotics, sedation, or [...] business decisions or sign any legal documents [facility] would like to thank you [...] baclofen (baclofen 10 mg (more content not included)...[facility] MAGR Intraoperative Recordon 10-71-7621WISM Intraoperative RecordMAGR Intra-Op Record Summary Primary Physician: LINA SCHWAB MD Finalized Date/Time: 06/08/25 11:08:52 Pt. Name: NOEMI BRAND CYNDI MccraryO.B./Sex: 1960 FEMALE Med Rec #: [id number] Physician: LINA SCHWAB MD Financial #: [id number] Pt. Type: D Room/Bed: / Admit/Disch: 06/08/25 [...] RN George, Beth A RN Role Performed Licensed Retail Supervisor Licensed Retail Supervisor Other Authorized Personnel Time In 06/08/25 10:39:00 06/08/25 10:39:00 06/08/25 10:39:00 Time Out 06/08/25 11:10:00 06/08/25 11:10:00 06/08/25 11:10:00 Procedure Radiofrequency Radiofrequency Radiofrequency Ablation(Bilateral) Ablation(Bilateral) Ablation(Bilateral) Last Modified By: Jenifer Muhammad RN, Debra RN Myers, Debra RN 06/08/25 11:08:16 06/08/25 11:08:16 06/08/25 11:08:16 Entry 4 Entry 5 Entry 6 Case Attendee Roslyn Sadler (R) Hailey Jorge MEDICAL AUDITOR LINA SCHWAB MD Role Performed Iron Pellet Tester Scrub Personnel Surgeon - Primary Time In [...] Participants (R), Ev Bailey RN, Hailey Jorge MEDICAL AUDITOR, LINA SCHWAB MD, Jenifer Muhammad RN Last [...] RN 06/08/25 10:40:20 Post-Ca (more content not included)...[facility] Preoperative Recordon 04-78-6670TIRW Preoperative RecordMA Pre-Op Record Summary Primary Physician: LINA SCHWAB MD Finalized Date/Time: 06/08/25 11:14:58 Pt. Name: NOEMI BRAND /Sex: 1960 FEMALE Med Rec #: [id number] Physician: LINA SCHWAB MD Financial #: [id number] Pt. Type: D Room/Bed: / Admit/Disch: 06/08/25 [...] Signatures Signed By: Carly Mccall RN 06/08/25 11:14[facility] CenterPatient Handouton 06-08-2025 Patient [facility] [address] [place] [address] [place] [address] Pain Procedure Home Care Instructions For the next 24 hours do not do any of the following activities: - Drive a car or operate heavy machinery - Drink alcoholic beverages - Make legal decisions or sign any contracts Please call the office at [phone] if you have any questions or develop [...] 1 hour: 2 hours: 4 hours: Normal [facility] Protime / INRon 96-55-2560XXQ Coag (PPP) [Relative time] 2.3 {INR}Abnormal0.8 - 1.2PSelect Medical [facility] SystemInterpretation and review of laboratory resultsAbnormalProOhiohealth Grove City Methodist Hospital SystemProOhiohealth Grove City Methodist Hospital SystemCoding Summaryon 08-32-9255Lixoem SummaryHTMLBase 64 GxwsmbtaGHq7hOa+PGhlYWQ+BM2YVTCuC07ivUTudL5fZ0NMURgNRtmvTVTHRPfUYlCgvlPoHK2etXUl ZXJu [file] OiB (more content not included)...NormalOhio State University Wexner Medical CenterProgress Note - Provideron 82-14-0706Aoxnlxvn Note - Provider [id number] Health Urbana HospitalPOCT Protime / INRon 16-10-2854XGJ Coag (PPP) [Relative time]2.8 {INR}Abnormal0.8 - 1.2PSt. Elizabeth HospitalInterpretation and review of laboratory results AbnormalSt. Luke's University Health NetworkPOCT Protime / INRon 36-54-0452ZXG Coag (PPP) [Relative time]2.9 {INR}Abnormal0.8 - 1.2PSt. Elizabeth HospitalInterpretation and review of laboratory resultsAbnormalWinnebago Mental Health Institute SystemAmbulatory referral to Diabetic Educationon 08-68-8568QikGnzsxpSelect Medical Specialty Hospital - Cleveland-FairhillXR knee LT 4V*on 78-57-8098NN knee LT 4V* [address] [place] [address] XRay Report Signed Patient: Noemi Brand MR#: [id number] : 1960 Acct:[id number] Age/Sex: 64 / F ADM Date: 03/04/25 Loc: XDUCLY [facility]: Sophy Riddle [employer], ASSOCIATE QUALITY ENGINEER-C Copies to: Sophy Riddle APRN Ordering Provider: [...] Jr., Anuradha 03/04/2025 10:25 AM Dictation Location: [facility] Transcribed By: [facility] 03/04/25 1025 Dictated By: Lisandro Helms Jr, DO 03/04/25 1022 Signed By: 03/04/[address] [place] [address] Physician GroupCASEY COUNTY HOS[facility] WITH AUTO DIFFERENTIALon 21-75-1120YMGENXZGX ABSOLUTE COUNT (10*3/UL) BY AUTOMATED COUNT0.0 10*3/uLNormal 0.0-0.2Pro[facility] Jude Medical CenterComment on above:Performed By: #### CBCA #### [facility] ([facility]) [address] [place] [address] VIRBASOPHILS RELATIVE PERCENT BY AUTOMATED COUNT0.5 %Normal [facility] HospitalComhenry ford [facility] on above:Performed By: #### CBCA #### [facility] ([facility]) [address] [place] [address] VIRCELLAVISION DIFFERENTIAL TYPEAUTOMATED DIFFERENTIALNormal [facility] Antelope HospitalComment on above:Performed By: #### CBCA #### [facility] ([facility]) [address] [place] [address] VIREosinophils (Bld) [#/Vol]0.1 10*3/uLNormal0.0-0.4[facility] HospitalComment on above:Performed By: #### CBCA #### [facility] ([facility]) [address] [place] [address] VIREOSINOPHILS RELATIVE PERCENT BY AUTOMATED COUNT0.8 %Normal [facility] HospitalComment on above:Performed By: #### CBCA #### [facility] ([facility]) [address] [place] [address] VIRErythrocyte distribution width (RBC) [Ratio]15.6 %High 11.5-15ProHouston Methodist The Woodlands HospitalComment on above:Performed By: #### CBCA #### [facility] ([facility]) [address] [place] [address] VIRHematocrit (Bld) [Volume fraction]39.0 %Sbnhow62-98MubXiubsaHouston Methodist The Woodlands HospitalComment on above:Performed By: #### CBCA #### [facility] ([facility]) [address] [place] [address] VIRHemoglobin (Bld) [Mass/Vol]13.0 g/aKIbtlqg94.7-15.5POhioHealth Grady Memorial HospitalComment on above:Performed By: #### CBCA #### [facility] ([facility]) [address] [place] [address] VIRLYMPHOCYTES ABSOLUTE COUNT (10*3/UL) BY AUTOMATED COUNT1.5 10*3/uLNormal1.0-3.5POhioHealth Grady Memorial HospitalComment on above:Performed By: #### CBCA #### [facility] ([facility]) [address] [place] [address] VIRLYMPHOCYTES RELATIVE PERCENT BY AUTOMATED COUNT22.8 %Normal [facility] Antelope HospitalComment on above:Performed By: #### CBCA #### [facility] ([facility]) [address] [place] [address] VIRMCH (RBC) [Entitic mass]30.2 aoDsjqkc60-81AloNycynoHouston Methodist The Woodlands HospitalComment on above:Performed By: #### CBCA #### [facility] ([facility]) [address] [place] [address] VIRMCHC (RBC) [Mass/Vol]33.3 g/dGGvlbqo15-33JzfXvgppuHouston Methodist The Woodlands HospitalComment on above:Performed By: #### CBCA #### [facility] ([facility]) [address] [place] [address] VIRMCV (RBC) [Entitic vol]91 jAPqvqyf35-435LksHqirii Fremont HospitalComment on above:Performed By: #### CBCA #### [facility] ([facility]) [address] [place] [address] VIRMONOCYTES ABSOLUTE COUNT (10*3/UL) BY AUTOMATED COUNT0.6 10*3/uLNormal0.0-0.9[facility] HospitalComhenry [facility]d [facility] hospital on above:Performed By: #### CBCA #### [facility] ([facility]) [address] [address] [place] [address] VIRMONOCYTES RELATIVE PERCENT BY AUTOMATED COUNT8.9 %Normal [facility] HospitalComment on above:Performed By: #### CBCA #### [facility] ([facility]) [address] [place] [address] VIRNEUTROPHILS ABSOLUTE COUNT BY AUTOMATED COUNT4.5 10*3/uL Normal1.5-6.6[facility] HospitalComment on above:Performed By: #### CBCA #### [facility] ([facility]) [address] [place] [address] VIRNEUTROPHILS RELATIVE PERCENT BY AUTOMATED COUNT67.0 %Normal [facility] HospitalComment on above:Performed By: #### CBCA #### [facility] ([facility]) [address] [place] [address] VIRPlatelet mean volume (Bld) [Entitic vol]9.0 fLNormal7-12 [facility] HospitalComment on above:Performed By: #### CBCA #### [facility] ([facility]) [address] [place] [address] VIRPlatelets (Bld) [#/Vol]237 10*3/kFWwmjwe229-355DlqWsuxud [facility] HospitalComment on above:Performed By: #### CBCA #### [facility] ([facility]) [address] [place] [address] VIRRBC COUNT4.31 X10E12/LNormal3.8-5.2POhioHealth Grady Memorial HospitalComment on above:Performed By: #### CBCA #### [facility] ([facility]) [address] [place] [address] VIRWBC (Bld) [#/Vol]6.7 10*3/uLNormal4-11[facility] HospitalComhenry [facility]d [facility] on above:Performed By: #### CBCA #### [facility] ([facility]) [address] [place] [address] VIRCOMPLEMENT ACTIVITY TOTAL, (CH50)on 62-45-2404CVSJVTGUPY TOTAL89.0 U/gFIhcfll65.7-89.9[facility] HospitalComhenry ford [facility] hospital on above:Result Comment: Normal activity in [...] complement alternate pathway functional (AH50, test code 7502884) activity suggests defects in the alternate pathway. REFERENCE INTERVAL: Complement Activity Total, (CH50) 38.6 U/mL or less ..........Low 38.7-89.9 U/mL .............Normal 90.0 U/mL or greater .......High Performed By: [email or web address] [address] [place] [address] Quality Systems Engineer: Abdullahi Matthew MD, PhD CLIA Number: [id number] By: #### CH50C #### [facility] ([facility]) [address] [place] [address] VIRCOMPLEMENT PROFILE (C3 AND C4)on 02-16-2025 COMPLEMENT C3152 mg/yPBvmplg42-102BeuNegnpw [facility] HospitalComment on above: Performed By: #### C34 #### [facility] ([facility]) [address] [place] [address] VIRCOMPLEMENT C445 mg/yUBieejj29-81RgdXvhcdnMercy Health Kings Mills Hospital Comment on above:Performed By: #### C34 #### [facility] ([facility]) [address] [place] [address] VIRCOMPREHENSIVE METABOLIC PANELon 13-53-6085Nvnffbn [Mass/Vol] 4.3 g/dLNormal3.2-5.3POhioHealth Grady Memorial HospitalComment on above:Performed By: #### CMP #### [facility] ([facility]) [address] [place] [address] VIRALP [Catalytic activity/Vol]82 U/PYbhegn53-126SwtHtygssHouston Methodist The Woodlands HospitalComment on above:Performed By: #### CMP #### [facility] ([facility]) [address] [place] [address] VIRALT [Catalytic activity/Vol]19 U/LNormal<=31POhioHealth Grady Memorial HospitalComment on above:Performed By: #### CMP #### [facility] ([facility]) [address] [place] [address] VIRAnion gap [Moles/Vol]9 mmol/LNormal5-15ProHouston Methodist The Woodlands HospitalComment on above:Performed By: #### CMP #### [facility] ([facility]) [address] [place] [address] VIRAST [Catalytic activity/Vol]15 U/LNormal<=41ProHouston Methodist The Woodlands HospitalComment on above:Performed By: #### CMP #### [facility] ([facility]) [address] [place] [address] VIRBilirubin [Mass/Vol]0.4 mg/dLNormal0.3-1.2POhioHealth Grady Memorial HospitalComment on above:Performed By: #### CMP #### [facility] ([facility]) [address] [place] [address] VIRCalcium [Mass/Vol]9.3 mg/dLNormal8.5-10.5POhioHealth Grady Memorial HospitalComment on above:Performed By: #### CMP #### [facility] ([facility]) [address] [place] [address] VIRChloride [Moles/Vol]101 mmol/NFkrcty44-174SniNpsdiaHouston Methodist The Woodlands HospitalComment on above:Performed By: #### CMP #### [facility] ([facility]) [address] [place] [address] VIRCO2 [Moles/Vol]31 mmol/DAahqfr43-73VjpGojagkOhioHealth Grady Memorial HospitalComment on above:Performed By: #### CMP #### [facility] ([facility]) [address] [place] [address] VIRCreatinine [Mass/Vol]0.92 mg/dLNormal0.40-1.00ProHouston Methodist The Woodlands HospitalComment on above:Result Comment: METHOD TRACEABLE TO IDMS STANDARDPerformed By: #### CMP #### [facility] ([facility]) [address] [place] [address] VIRGFR/1.73 sq M.predicted among non-blacks MDRD (S/P/Bld) [Vol rate/Area]70 mL/min/{1.73_m2}Normal>=60ProHouston Methodist The Woodlands HospitalComment on above:Result Comment: Reported eGFR is based on the CKD-EPI 2020 equation that does not use a race coefficient.Performed By: #### CMP #### [facility] ([facility]) [address] [place] [address] VIRGlucose [Mass/Vol]115 mg/aRJrkk35-91MnbFbmrrrHouston Methodist The Woodlands HospitalComment on above:Performed By: #### CMP #### [facility] ([facility]) [address] [place] [address] VIRPotassium [Moles/Vol]4.2 mmol/LNormal3.5-5.0[facility] HospitalComment on above:Performed By: #### CMP #### [facility] ([facility]) [address] [place] [address] VIRProtein [Mass/Vol]6.7 g/dLNormal6.0-8.0[facility] HospitalComment on above:Performed By: #### CMP #### [facility] ([facility]) [address] [place] [address] VIRSodium [Moles/Vol]141 mmol/DPeavcz927-630EasHvqtqo [facility]ont HospitalComment on above:Performed By: #### CMP #### [facility] ([facility]) [address] [place] [address] VIRUrea nitrogen [Mass/Vol]16 mg/dLNormal5-27ProHouston Methodist The Woodlands HospitalComment on above:Performed By: #### CMP #### [facility] ([facility]) [address] [place] [address] VIRERYTHROCYTE SEDIMENTATION RATE (ESR)on 53-47-7948RKA, ERYTHROCYTE SEDIMENTATION RATE6 mm/hNormal0-30ProHouston Methodist The Woodlands HospitalComment on above:Performed By: #### ESR #### [facility] ([facility]) [address] [place] [address] VIRPOCT Protime / INRon 13-21-6200PWF Coag (PPP) [Relative time]2.6 {INR}Abnormal0.8 - 1.2PSt. Elizabeth HospitalInterpretation and review of laboratory resultsAbnoWellSpan Ephr[facility] URINALYSISon 22-03-7598Svnyvfjzw Ql (U)NegativeNormalNegativeMercy Health Kings Mills HospitalComment on above:Performed By: #### UA #### [facility] ([facility]) [address] [place] [address] VIRBLOOD/HGBNegativeNoformerly albemarle hospitalNegTriHealth [facility] on above:Performed By: #### UA #### [facility] ([facility]) [address] [place] [address] VIRColor (U)YellowNormalYellow, ColorlessProHouston Methodist The Woodlands HospitalComment on above:Performed By: #### UA #### [facility] ([facility]) [address] [place] [address] VIRGlucose Ql (U)NegativeNormalNegativeMercy Health Kings Mills HospitalComhenry ford wyandotte hospital on above:Performed By: #### UA #### [facility] ([facility]) [address] [place] [address] VIRKetones Ql (U)NegativeNormalNegativeProHouston Methodist The Woodlands HospitalComment on above:Performed By: #### UA #### [facility] ([facility]) [address] [place] [address] VIRLeukocyte esterase Test strip Ql (U)LargeAbnormalNegative ProMregional medical center of jacksonvillea St. Jude Medical CenterComment on above:Performed By: #### UA #### [facility] ([facility]) [address] [place] [address] VIRMUCOUSPresentAbnormalHealthsouth Rehabilitation Hospital Of Southern ArizonaePOhioHealth Grady Memorial HospitalComment on above:Performed By: #### UA #### [facility] ([facility]) [address] [place] [address] VIRNitrite Ql (U)NegativeNormalNegativeMercy Health Kings Mills HospitalComment on above:Performed By: #### UA #### [facility] ([facility]) [address] [place] [address] VIRPH,URINE6.8Obfpyz7.0-8.5POhioHealth Grady Memorial HospitalComment on above:Performed By: #### UA #### [facility] ([facility]) [address] [place] [address] VIRProtein Ql (U)TraceAbnormalNegativeMercy Health Kings Mills HospitalComment on above:Performed By: #### UA #### [facility] ([facility]) [address] [place] [address] VIRR.B.FLTLZ6Zhxagy6-2OxyRfuqngOhioHealth Grady Memorial HospitalComment on above:Performed By: #### UA #### [facility] ([facility]) [address] [place] [address] VIRSpecific gravity (U) [Rel density]1.216Vlvqio0.003-1.035 [facility] HospitalComhenry ford wyandotte hospital on above:Performed By: #### UA #### [facility] ([facility]) [address] [place] [address] VIRTURBIDITYClearNormalClearMercy Health Kings Mills HospitalComment on above:Performed By: #### UA #### [facility] ([facility]) [address] [place] [address] VIRUROBILINOGEN<1.1 eu/dLNormal<1.1 eu/dLMercy Health Kings Mills HospitalComhenry ford wyandotte hospital on above:Performed By: #### UA #### [facility] ([facility]) [address] [place] [address] VIRW.B.FEUYN10Wvim2-8KafCvvjmmOhioHealth Grady Memorial HospitalComment on above:Performed By: #### UA #### [facility] ([facility]) [address] [place] [address] VIRCBC WITH AUTO DIFFERENTIALon 42-93-2033ICIEVXSZY ABSOLUTE COUNT (10*3/UL) BY AUTOMATED COUNT0.0 10*3/uLNormal0.0-0.2PHighland District Hospital Ambulatory PPGComment on above:Performed By: #### CBCA #### [facility] ([facility]) [address] [place] [address] VIRBASOPHILS RELATIVE PERCENT BY AUTOMATED COUNT0.5 %Normal [facility] Ambulatory PPGComment on above:Performed By: #### CBCA #### [facility] ([facility]) [address] [place] [address] VIRCELLAVISION DIFFERENTIAL TYPEAUTOMATED DIFFERENTIALNormal [facility] Ambulatory PPGComment on above:Performed By: #### CBCA #### [facility] ([facility]) [address] [place] [address] VIREosinophils (Bld) [#/Vol]0.0 10*3/uLNormal0.0-0.4[facility] Ambulatory PPGComment on above:Performed By: #### CBCA #### [facility] ([facility]) [address] [place] [address] VIREOSINOPHILS RELATIVE PERCENT BY AUTOMATED COUNT0.6 %Normal [facility] Ambulatory PPGComment on above:Performed By: #### CBCA #### [facility] ([facility]) [address] [place] [address] VIRErythrocyte distribution width (RBC) [Ratio]15.5 %High 11.5-15[facility] Ambulatory PPGComment on above:Performed By: #### CBCA #### [facility] ([facility]) [address] [place] [address] VIRHematocrit (Bld) [Volume fraction]40.4 %Ktvzti76-14QllWeyhba Hospital Ambulatory PPGComment on above:Performed By: #### CBCA #### [facility] ([facility]) [address] [place] [address] VIRHemoglobin (Bld) [Mass/Vol]13.5 g/rPRkjfsb04.7-15.5PHighland District Hospital Ambulatory PPGComment on above:Performed By: #### CBCA #### [facility] ([facility]) [address] [place] [address] VIRLYMPHOCYTES ABSOLUTE COUNT (10*3/UL) BY AUTOMATED COUNT1.8 10*3/uLNormal1.0-3.5PHighland District Hospital Ambulatory PPGComment on above:Performed By: #### CBCA #### [facility] ([facility]) [address] [place] [address] VIRLYMPHOCYTES RELATIVE PERCENT BY AUTOMATED COUNT21.3 %Normal [facility] Ambulatory PPGComment on above:Performed By: #### CBCA #### [facility] ([facility]) [address] [place] [address] VIRMCH (RBC) [Entitic mass]29.9 nyGaeoyy74-04OvgCosspa Hospital Ambulatory PPGComment on above:Performed By: #### CBCA #### [facility] ([facility]) [address] [place] [address] VIRMCHC (RBC) [Mass/Vol]33.4 g/jQTrkgod53-31MnzPkyyqt Hospital Ambulatory PPGComment on above:Performed By: #### CBCA #### [facility] ([facility]) [address] [place] [address] VIRMCV (RBC) [Entitic vol]90 rBZjenmt73-588VizRycvfr Hospital Ambulatory PPGComment on above:Performed By: #### CBCA #### [facility] ([facility]) [address] [place] [address] VIRMONOCYTES ABSOLUTE COUNT (10*3/UL) BY AUTOMATED COUNT0.7 10*3/uLNormal0.0-0.9[facility] Ambulatory PPGComment on above:Performed By: #### CBCA #### [facility] ([facility]) [address] [place] [address] VIRMONOCYTES RELATIVE PERCENT BY AUTOMATED COUNT8.0 %Normal [facility] Ambulatory PPGComment on above:Performed By: #### CBCA #### [facility] ([facility]) [address] [place] [address] VIRNEUTROPHILS ABSOLUTE COUNT BY AUTOMATED COUNT5.8 10*3/uL Normal1.5-6.6[facility] Ambulatory PPGComment on above:Performed By: #### CBCA #### [facility] ([facility]) [address] [place] [address] VIRNEUTROPHILS RELATIVE PERCENT BY AUTOMATED COUNT69.6 %Normal [facility] Ambulatory PPGComment on above:Performed By: #### CBCA #### [facility] ([facility]) [address] [place] [address] VIRPlatelet mean volume (Bld) [Entitic vol]8.8 fLNormal7-12 [facility] Ambulatory PPGComment on above:Performed By: #### CBCA #### [facility] ([facility]) [address] [place] [address] VIRPlatelets (Bld) [#/Vol]245 10*3/sGIpqier560-417HimZftlpm Hospital Ambulatory PPGComment on above:Performed By: #### CBCA #### [facility] ([facility]) [address] [place] [address] VIRRBC COUNT4.51 X10E12/LNormal3.8-5.2PHighland District Hospital Ambulatory PPGComment on above:Performed By: #### CBCA #### [facility] ([facility]) [address] [place] [address] VIRWBC (Bld) [#/Vol]8.4 10*3/uLNormal4-11[facility] Ambulatory PPGComment on above:Performed By: #### CBCA #### [facility] ([facility]) [address] [place] [address] [facility] auto differentialon 54-05-9199Orkcrsfhn (Bld) [#/Vol]0 10*3/uL0.0 - 0.2 10*3/uLEast Liverpool City Hospital SystemBasophils/100 WBC (Bld)0.5 % [facility] Cleveland-FairhillDifferential cell count method Nom (Bld)AUTOMATED DIFFERENTIALSelect Medical Specialty Hospital - Cleveland-FairhillEosinophils (Bld) [#/Vol]0 10*3/uL0.0 - 0.4 10*3/uLSelect Medical Specialty Hospital - Cleveland-FairhillEosinophils/100 WBC (Bld)0.6 %[facility] Cleveland-FairhillErythrocyte distribution width (RBC) [Ratio]15.5 %High11.5 - 15 %[facility] Cleveland-FairhillHematocrit (Bld) [Volume fraction]40.4 %35 - 47 %[facility] Cleveland-FairhillHemoglobin (Bld) [Mass/Vol]13.5 g/dL11.7 - 15.5 g/dLSelect Medical Specialty Hospital - Cleveland-FairhillInterpretation and review of laboratory resultsAbnoFormerly Mercy Hospital SouthLymphocytes (Bld) [#/Vol]1.8 10*3/uL1.0 - 3.5 10*3/uLSelect Medical Specialty Hospital - Cleveland-FairhillLymphocytes/100 WBC (Bld)21.3 %[facility] Cleveland-FairhillMCH (RBC) [Entitic mass]29.9 pg27 - [address] pgPSt[address] Elizabeth HospitalMCHC (RBC) [Mass/Vol]33.4 g/dL32 - 36 g/dLSelect Medical Specialty Hospital - Cleveland-FairhillMCV (RBC) [Entitic vol]90 fL80 - 100 [facility] HospitalMonocytes (Bld) [#/Vol]0.7 10*3/uL0.0 - 0.9 10*3/uLSelect Medical Specialty Hospital - Cleveland-FairhillMonocytes/100 WBC (Bld)8 %[facility] Cleveland-FairhillNeutrophils (Bld) [#/Vol]5.8 10*3/uL1.5 - 6.6 10*3/uLUniversity Hospitals Beachwood Medical Centerca Health SystemNeutrophils/100 WBC (Bld)69.6 %[facility] SystemPlatelet mean volume (Bld) [Entitic vol]8.8 fL 7 - 12 [facility] SystemPlatelets (Bld) [#/Vol]245 10*3/[facility] SystemRBC (Bld) [#/Vol]4.51 10*6/[facility] SaultWBC LM Ql (Sput)8.4St[facility] University Health NetworkCOMPREHENSIVE METABOLIC PANELon 02-91-8610Cxyanlr [Mass/Vol]4.4 g/dLNormal3.2-5.3PHighland District Hospital Ambulatory PPGComment on above:Performed By: #### CMP #### [facility] ([facility]) [address] [place] [address] VIRALP [Catalytic activity/Vol]87 U/JFkxysr95-701LsrQirbzp Hospital Ambulatory PPGComment on above:Performed By: #### CMP #### [facility] ([facility]) [address] [place] [address] VIRALT [Catalytic activity/Vol]29 U/LNormal<=31PHighland District Hospital Ambulatory PPGComment on above:Performed By: #### CMP #### [facility] ([facility]) [address] [place] [address] VIRAnion gap [Moles/Vol]10 mmol/LNormal5-15[facility] Ambulatory PPGComment on above:Performed By: #### CMP #### [facility] ([facility]) [address] [place] [address] VIRAST [Catalytic activity/Vol]27 U/LNormal<=41[facility] Ambulatory PPGComment on above:Performed By: #### CMP #### [facility] ([facility]) [address] [place] [address] VIRBilirubin [Mass/Vol]0.3 mg/dLNormal0.3-1.2PHighland District Hospital Ambulatory PPGComment on above:Performed By: #### CMP #### [facility] ([facility]) [address] [place] [address] VIRCalcium [Mass/Vol]9.8 mg/dLNormal8.5-10.5PHighland District Hospital Ambulatory PPGComment on above:Performed By: #### CMP #### [facility] ([facility]) [address] [place] [address] VIRChloride [Moles/Vol]102 mmol/IPkxgff47-509HscHjepcj Hospital Ambulatory PPGComment on above:Performed By: #### CMP #### [facility] ([facility]) [address] [place] [address] VIRCO2 [Moles/Vol]29 mmol/RDeduxd04-51BowNwxbmm Hospital Ambulatory PPGComment on above:Performed By: #### CMP #### [facility] ([facility]) [address] [place] [address] VIRCreatinine [Mass/Vol]0.87 mg/dLNormal0.40-1.00[facility] Ambulatory PPGComment on above:Result Comment: METHOD TRACEABLE TO IDMS STANDARDPerformed By: #### CMP #### [facility] ([facility]) [address] [place] [address] VIRGFR/1.73 sq M.predicted among non-blacks MDRD (S/P/Bld) [Vol rate/Area]75 mL/min/{1.73_m2}Normal>=60[facility] Ambulatory PPGComment on above:Result Comment: Reported eGFR is based on the CKD-EPI 1 equation that does not use a race coefficient.Performed By: #### CMP #### [facility] ([facility]) [address] [place] [address] VIRGlucose [Mass/Vol]127 mg/[id number] [facility] Ambulatory PPGComment on above:Performed By: #### CMP #### [facility] ([facility]) [address] [place] [address] VIRPotassium [Moles/Vol]4.2 mmol/LNormal3.5-5.0[facility] PPGComment on above:Performed By: #### CMP #### [facility] ([facility]) [address] [place] [address] VIRProtein [Mass/Vol]7.5 g/dLNormal6.0-8.0ProW[facility] Ambulatory PPGComment on above:Performed By: #### CMP #### [facility] ([facility]) [address] [place] [address] VIRSodium [Moles/Vol]141 mmol/[id number] Ambulatory PPGComment on above:Performed By: #### CMP #### [facility] ([facility]) [address] [place] [address] VIRUrea nitrogen [Mass/Vol]19 mg/dLNormal5-27ProWexner Medical Center Ambulatory PPGComment on above:Performed By: #### CMP #### [facility] ([facility]) [address] [place] [address] VIRComprehensive metabolic panelon [id number] [Mass/Vol] 4.4 g/dL3.2 - 5.3 g/dLProAccess Hospital Daytonca Health SystemALP [Catalytic activity/Vol]87 U/L 39 - 130 U/LProMedica Health SystemALT No additional P-5'-P [Catalytic activity/Vol]29 U/LNINF - 31 U/LProMedica Health SystemAnion gap [Moles/Vol]10 mmol/L5 - 15 mmol/LProMedica Health SystemAST [Catalytic activity/Vol]27 U/LNINF - 41 U/LProMedica Health SystemBilirubin [Mass/Vol]0.3 mg/dL0.3 - 1.2 mg/dL [facility] Health SystemCalcium [Mass/Vol]9.8 mg/dL8.5 - 10.5 mg/dLProMedica Chillic[facility] SystemChloride [Moles/Vol]102 mmol/L98 - 109 mmol/LProMedica Health SystemCO2 [Moles/Vol]29 mmol/L22 - 32 mmol/LProMedica Health SystemCreatinine [Mass/Vol]0.87 mg/dL0.40 - 1.00 mg/dLSelect Medical Specialty Hospital - Cleveland-FairhillComment on above: METHOD TRACEABLE TO IDMS STANDARDEGFR Non-Race [id number] PINCameron Regional Medical CenterComment on above:Reported eGFR is based on the CKD-EPI 2020 equation that does not use a race coefficient. Glucose [Mass/Vol]127 mg/cSUhhr21 - 99 mg/dLSelect Medical Specialty Hospital - Cleveland-FairhillPotassium [Moles/Vol]4.2 mmol/L3.5 - 5.0 mmol/[facility] SystemProtein [Mass/Vol] 7.5 g/dL6.0 - 8.0 g/dLAtrium Health University Cityodium [Moles/Vol]141 mmol/L134 - 146 mmol/[facility] Anne HospitalUrea nitrogen [Mass/Vol]19 mg/dL5 - 27 mg/dL [facility]-FairhillHEMOGLOBIN A1Con 23-99-0495Lettfmn [Mass/Vol]143 mg/dL NormalTrinity Health System West Campus Ambulatory PPGComment on above:Performed By: #### HA1C #### [facility] ([facility]) [address] [place] [address] VWLEnR7k (Bld) [Mass fraction]6.6 %High4.4-5.6[facility] Ambulatory PPGComment on above:Result Comment: ADA Guidelines Result HgbA1c Normal : less than 5.7 % Prediabetes : 5.7 % to 6.4 % Diabetes : > 6.4 % Use with caution in patients with abnormal hemoglobin variants as the half-life of red blood cells and in vivo glycation rates are affected.Performed By: #### HA1C #### [facility] ([facility]) [address] [place] [address] VIRLIPID PROFILEon 59-41-7851Pvhqgruccoh [Mass/Vol]216 mg/dL Mjzv435-363FiyJsevqv Hospital Ambulatory PPGComment on above:Performed By: #### LIPR #### [facility] ([facility]) [address] [place] [address] VIRCholesterol in HDL [Mass/Vol]49 mg/dLNormal>39[facility] Ambulatory PPGComment on above:Result Comment: HDL <40 mg/dL - High Risk HDL > or = 40mg/dL- Desirable HDL >60 mg/dL - Negative RiskPerformed By: #### LIPR #### [facility] ([facility]) [address] [place] [address] VIRCholesterol in LDL [Mass/Vol]100 mg/dLNormal<130[facility] Ambulatory PPGComment on above:Result Comment: LDL <100 mg/dL - Desirable LDL >160 mg/dL - High RiskPerformed By: #### LIPR #### [facility] ([facility]) [address] [place] [address] VIRCHOLESTEROL:HDL4.9Pbamar6.0-5.0[facility] Ambulatory PPGComment on above:Performed By: #### LIPR #### [facility] ([facility]) [address] [place] [address] VIRTriglyceride [Mass/Vol]335 mg/gMXbvt74-918MppLhuvbo Hospital Ambulatory PPGComment on above:Performed By: #### LIPR #### [facility] ([facility]) [address] [place] [address] VIRVERY LOW NYESWDPRBNI90 mg/dLHigh0-30[facility] Ambulatory PPGComment on above:Performed By: #### LIPR #### [facility] ([facility]) [address] [place] [address] VIRLipid profileon 87-47-3552Vhxgzyfjuwc [Mass/Vol]216 mg/dL Ffmc488 - 200 mg/dLEast Liverpool City Hospital SystemCholesterol in HDL [Mass/Vol]49 mg/dL 39 - PINF mg/dLEast Liverpool City Hospital SystemComment on above:HDL <40 mg/dL - High Risk HDL > or = 40mg/dL- Desirable HDL >60 mg/dL - Negative Risk Cholesterol in HDL [Mass/Vol]4.4 mg/dL1.0 - 5.0[facility] Cholesterol in LDL [Mass/Vol]100 mg/dLNINF - 130 mg/dLSelect Medical Specialty Hospital [facility] Comment on above:LDL <100 mg/dL - Desirable LDL >160 mg/dL - High Risk Cholesterol in VLDL [Mass/Vol]67 mg/dLHigh0 - 30 mg/dLSelect Medical Specialty Hospital - [place] Triglyceride [Mass/Vol]335 mg/eJLypx29 - 150 mg/dLSelect Medical Specialty Hospital - Cleveland-FairhillNo Panel Informationon 64-07-9783Qbpilaumyzlmps and review of laboratory results AbnormalSt. Luke's University Health NetworkTHYROID PROFILE INCLUDES TSH FT4on 47-06-1157Bjyk T4 [Mass/Vol]0.89 ng/dLNormal0.61-1.60[facility] Ambulatory PPGComment on above:Performed By: #### THYR #### [facility] ([facility]) [address] [place] [address] VIRTSH1.39 uIU/mLNormal0.49-4.67[facility] Ambulatory PPGComment on above:Performed By: #### THYR #### [facility] ([facility]) [address] [place] [address] VIRThyroid profile includes TSH FT4on 43-64-5059Biwu T4 [Mass/Vol]0.89 ng/dL0.61 - 1.60 ng/dLSelect Medical Specialty Hospital - Cleveland-FairhillInterpretation and review of laboratory resultsNoCone Health Moses [facility] Hospital Qn1.39 m[IU]/L [facility] University Health NetworkPOCT Protime / INRon 59-02-2995DCD Coag (PPP) [Relative time]1.9 {INR}Abnormal0.8 - 1.2PSt. [facility] Hospital Interpretation and review of laboratory resultsAbnoSSM Health St. Clare Hospital - BarabooPOCT Protime / INRon 92-61-1837DMD Coag (PPP) [Relative time]2.5 {INR}Abnormal0.8 - 1.2PSt. Elizabeth HospitalInterpretation and review of laboratory resultsAbnoWellSpan Ephrata Community HospitalPOCT Protime / INRon 36-97-7951EIO Coag (PPP) [Relative time]2 {INR}Abnormal0.8 - 1.2 [facility] SystemInterpretation and review of laboratory resultsAbnormal St[facility] Health NetworkPOCT Protime / INRon 40-78-7500MQB Coag (PPP) [Relative time]2.3 {INR}Abnormal0.8 - 1.2PSelect Medical [facility], [facility] System Interpretation and review of laboratory resultsAbnoSSM Health St. Clare Hospital - BarabooPOCT Protime / INRon 39-10-5806XCI Coag (PPP) [Relative time]2.4 {INR}Abnormal0.8 - 1.2PSelect Medical [facility] SystemInterpretation and review of laboratory resultsAbWarren General Hospital Consent Formson 79-22-5847Wbbkxkk Forms [id number]#1.00[facility] Controlled Substances Agreementson 87-40-1840Jsfnzvxhvu Substances Agreements [id number]#1.00[facility] Progress Note - Provideron 36-74-3548Ghmdkumy Note - Provider [id number]#1.00OTRiverview Health Institute Protime / INRon 74-68-9855CLY Coag (PPP) [Relative time]2.9 {INR}Abnormal0.8 - 1.2PSelect [facility] SystemInterpretation and review of laboratory results AbnormalSt. Luke's University Health NetworkPOCT Protime / INRon 69-06-3497QDF Coag (PPP) [Relative time]3.4 {INR}Abnormal0.8 - 1.2PSelect [facility] SystemInterpretation and review of laboratory resultsAbFroedtert Hospital 40-43-5479HlcuygtcmFteueshrn From: Ray, Fnany P To: EU - Recalls Gerry; Sent: [...] ) Other: PROVIDER RELATED REMINDER:_ ( ) Clocksmith ( ) Call Pharmacy ( ) Call Lab ( ) Other: Special Instructions:_ Comments:_Dajaer [facility] MarylandUrology Office/Clinic Noteon 12-47-2634Gjtvhxd Office/Clinic NoteUrology Office/Clinic Note Chief Complaint 1 [...] to 5mm R and 3mm L. No [place]. Discussed imaging results with pt. Denies blood in urine. Denies recent infection. No UTIs this past year. Follow up in 1 yr w/LUCY and KUB. Continue stone prevention diet. Ordered: US Renal XR Abdomen 1 View Orders: Urnls Dip Stick Auto w/o Microscopy POC 71908 Follow-up With When Contact Information GERRY SAPP, ANDRE Miller, URL In 1 year [address] [place] [address] Additional Instructions: Patient Education [...] Recorded influenza virus vacc (more content not included)...[facility] Campus Medical CenterComment on above:Result Comment: Electronically Signed By: ANDRE MCNEIL PA-C\radha\Date and Time Signed: 08/29/2411:37 ESTCoding Summaryon 20-85-0445Hltgdx SummaryHTMLBase 64 DiepdjqcATl3cGi+PGhlYWQ+MG8YDRGcR48gjZOueY7vN1DLFGbSBvyeXGOCNNiYYcRhfaOuIU6zoRLr ZXJu [file] OiB (more content not included)...[facility] CenterMM TOMOSYNTHESIS SCREENING BIon 09-49-5566[place] [address] Mammography Report Signed Patient: NOEMI BRAND MR#: [id number] : 1960 Acct:[id number] Age/Sex: 64 / F ADM Date: 08/18/24 Loc: MAMMO Attending Dr: Kobi Latham D.O. Ordering Physician: Kobi Latham D.O. Results: Date of Service: 08/18/24 Follow Up: Procedure(s): MM tomosynthesis screening BI Accession Number(s): [id number] cc: Kobi Latham D.O.; ALEXANDER CHEN Patient Name: NOEMI BRAND MR#: [id number] : 1960 Exam Date: 08/18/2024 Ordering Doctor: [...] thyroid cancer at age 53. LOCATION: [facility] BREAST COMPOSITION: There are scattered areas [...] Signed By: 08/18/24 1008 DD/ 1007 TD/TT: General Freight Agent:TBHRadiology, Radiologist, MD - 08/18/2024 [place] [address] Mammography Report Signed Patient: NOEMI BRAND MR#: [id number] : 1960 Acct:[id number] Age/Sex: 64 / F ADM Date: 08/18/24 Loc: MAMMO Attending Dr: Kobi Latham D.O. Ordering Physician: Kobi Latham D.O. Results: Date of Service: 08/18/24 Follow Up: Procedure(s): MM tomosynthesis screening BI Accession Number(s): [id number] cc: Kobi Latham D.O.; ALEXANDER CHEN Patient Name: NOEMI BRAND MR#: [id number] : 1960 Exam Date: 08/18/2024 Ordering Doctor: [...] thyroid cancer at age 53. LOCATION: [facility] BREAST COMPOSITION: There are scattered areas [...] Signed By: 08/18/24 1008 DD/ 1007 TD/TT: General Freight Agent: [facility] springfieldRadiology Study observation (narrative)[facility] TOMOSYNTHESIS SCREENING BIOrdered By: Radiologist Radiology on 36-61-4085AHJB Sonendo Work Phone: complement C3on 42-03-1618Gmuwvkuzca C3167 mg/dLNormal 82-167The [facility] Physician GroupComment on above:Result Comment: Performed at: - [facility] [id number] Forest Fire Fighter: Thony Mcmillan PhD, Phone: [phone] By: #### C4, CH50, C3 #### [facility] , #### CBC, UA, CMP, ESR #### [facility] [address] [place] [address] USAComplement C4on 64-19-5397Uajupaocgh C440 mg/oUGibj63-42 The [facility] Physician GroupComment on above:Result Comment: PERFORMED BY: [place] [address] PATHOLOGIST LIMB DRIVER BELEM MCCALL M.D.Performed By: #### C4, CH50, C3 #### [facility] , #### CBC, UA, CMP, ESR #### [facility] [address] [place] [address] USAComplement Total (CH50)on 98-28-3408Lwbhqcytjs Total (CH50)>60Normal>41The [facility] Physician GroupComment on above:Result Comment: Age Male [...] out of range values. Performed at: - [facility] [id number] Forest Fire Fighter: Thony Mcmillan PhD, Phone: [phone] PERFORMED BY: [place] [address] PATHOLOGIST LIMB DRIVER BELEM MCCALL M.D.Performed By: #### C4, CH50, C3 #### [facility] , #### CBC, UA, CMP, ESR #### [place] [address] USAComplete Blood Count Auto Diffon 44-72-1830Xnomrzfee (Bld) [#/Vol]0.0 10*3/uLNormal0.0-0.2The [facility] Physician GroupComment on above: Performed By: #### C4, CH50, C3 #### [facility] , #### CBC, UA, CMP, ESR #### [place] [address] USABasophils/100 WBC (Bld)0.4 %Normal.The [facility] Physician GroupComment on above:Performed By: #### C4, CH50, C3 #### [facility] , #### CBC, UA, CMP, ESR #### [place] [address] USAEosinophils (Bld) [#/Vol]0.1 10*3/uLNormal0.0-0.45The [facility] Physician GroupComment on above:Performed By: #### C4, CH50, C3 #### [facility] , #### CBC, UA, CMP, ESR #### [place] [address] USAEosinophils/100 WBC (Bld)0.7 %Normal.The [facility] Physician GroupComment on above:Performed By: #### C4, CH50, C3 #### [facility] , #### CBC, UA, CMP, ESR #### [place] [address] USAErythrocyte distribution width (RBC) [Ratio]14.4 %Normal 11.9-15.3The [facility] Physician GroupComment on above:Performed By: #### C4, CH50, C3 #### [facility] , #### CBC, UA, CMP, ESR #### [facility] [address] [place] [address] USAHematocrit (Bld) [Volume fraction]39.7 %Hwuhkr55.0-46.4The [facility] Physician GroupComment on above:Performed By: #### C4, CH50, C3 #### [facility] , #### CBC, UA, CMP, ESR #### [place] [address] USAHemoglobin (Bld) [Mass/Vol]13.3 g/rPBjkwnv36.8-15.4The [facility] Physician GroupComment on above:Performed By: #### C4, CH50, C3 #### [facility] , #### CBC, UA, CMP, ESR #### [facility] [address] [place] [address] USALymphocytes (Bld) [#/Vol]2.1 10*3/uLNormal1.00-4.8The [facility] Physician GroupComment on above:Performed By: #### C4, CH50, C3 #### [facility] , #### CBC, UA, CMP, ESR #### [place] [address] USALymphocytes/100 WBC (Bld)23.6 %Normal.The [facility] Physician GroupComment on above:Performed By: #### C4, CH50, C3 #### [facility] , #### CBC, UA, CMP, ESR #### [address] (RBC) [Entitic mass]30.9 jrBoioqa67.7-34.3The [facility] Physician GroupComment on above:Performed By: #### C4, CH50, C3 #### [facility] , #### CBC, UA, CMP, ESR #### [address] (RBC) [Entitic vol]92.1 eMGhxjru32-627Gfp [facility] Physician GroupComment on above:Performed By: #### C4, CH50, C3 #### [facility] , #### CBC, UA, CMP, ESR #### [facility] [address] [place] [address] USAMean Corpuscular HGB Conc33.6 g/kOVxzpgr70.0-35.0The [facility] Physician GroupComment on above:Performed By: #### C4, CH50, C3 #### [facility] , #### CBC, UA, CMP, ESR #### [place] [address] USAMonocytes (Bld) [#/Vol]0.7 10*3/uLNormal0.0-0.8The [facility] Physician GroupComment on above:Performed By: #### C4, CH50, C3 #### [facility] , #### CBC, UA, CMP, ESR #### [facility] [address] [place] [address] USAMonocytes/100 WBC (Bld)7.8 %Normal.The [facility] Physician GroupComment on above:Performed By: #### C4, CH50, C3 #### [facility] , #### CBC, UA, CMP, ESR #### [facility] [address] [place] [address] USANeutrophils (Bld) [#/Vol]6.0 10*3/uLNormal1.8-7.7The [facility] Physician GroupComment on above:Performed By: #### C4, CH50, C3 #### [facility] , #### CBC, UA, CMP, ESR #### [facility] [address] [place] [address] USANeutrophils/100 WBC (Bld)67.5 %Normal.The [facility] Physician GroupComment on above:Performed By: #### C4, CH50, C3 #### [facility] , #### CBC, UA, CMP, ESR #### [facility] [address] [place] [address] USANRBC%0.0 /100{WBC}Normal0-0.5The [facility] Physician Group Comment on above:Performed By: #### C4, CH50, C3 #### [facility] , #### CBC, UA, CMP, ESR #### [facility] [address] [place] [address] USAPlatelet mean volume (Bld) [Entitic vol]8.9 fLNormal 6.3-10.7The [facility] Physician GroupComment on above:Performed By: #### C4, CH50, C3 #### [facility] , #### CBC, UA, CMP, ESR #### [facility] [address] [place] [address] USAPlatelets (Bld) [#/Vol]255 10*3/bDEgbrgl212-526Vvv [facility] Physician GroupComment on above:Performed By: #### C4, CH50, C3 #### [facility] , #### CBC, UA, CMP, ESR #### [facility] [address] [place] [address] USARBC (Bld) [#/Vol]4.31 10*6/uLNormal3.60-5.00The [facility] Physician GroupComment on above:Performed By: #### C4, CH50, C3 #### [facility] , #### CBC, UA, CMP, ESR #### [place] [address] USAWBC (Bld) [#/Vol]8.8 10*3/uLNormal3.8-11.6The [facility] Physician GroupComment on above:Performed By: #### C4, CH50, C3 #### [facility] , #### CBC, UA, CMP, ESR #### [place] [address] USAComprehensive Metabolic Panelon 77-54-6544Cdfowao [Mass/Vol]4.0 g/dLNormal3.5-5.7The [facility] Physician Sing[facility] River GulfportComment on above: Performed By: #### C4, CH50, C3 #### [facility] , #### CBC, UA, CMP, ESR #### [place] [address] USAAlbumin/Globulin [Mass ratio]1.5 {ratio}NormalThe Crichton Rehabilitation CenterComment on above:Performed By: #### C4, CH50, C3 #### [facility] , #### CBC, UA, CMP, ESR #### [place] [address] USAALP [Catalytic activity/Vol]80 U/YRabzuc76-462Hnk [facility] Rehabilitation CenterComment on above:Result Comment: PERFORMED BY: [place] [address] PATHOLOGIST LIMB DRIVER BELEM MCCALL M.D.Performed By: #### C4, CH50, C3 #### [facility] , #### CBC, UA, CMP, ESR #### [place] [address] USAALT [Catalytic activity/Vol]17 U/LNormal7-52The [facility] Physician GroupComment on above:Performed By: #### C4, CH50, C3 #### [facility] , #### CBC, UA, CMP, ESR #### [place] [address] USAAnion gap [Moles/Vol]11.5 mmol/LNormal6.0-15.0The [facility] Physician GroupComment on above:Performed By: #### C4, CH50, C3 #### [facility] , #### CBC, UA, CMP, ESR #### [facility] [address] [place] [address] USAAST [Catalytic activity/Vol]12 U/VEnn92-16Ziw [facility] Physician GroupComment on above:Performed By: #### C4, CH50, C3 #### [facility] , #### CBC, UA, CMP, ESR #### [facility] [address] [place] [address] USABilirubin [Mass/Vol]0.3 mg/dLNormal0.3-1.0The [facility] Physician GroupComment on above:Performed By: #### C4, CH50, C3 #### [facility] , #### CBC, UA, CMP, ESR #### [facility] [address] [place] [address] USACalcium [Mass/Vol]9.2 mg/dLNormal8.6-10.3The [facility] Physician GroupComment on above:Performed By: #### C4, CH50, C3 #### [facility] , #### CBC, UA, CMP, ESR #### [facility] [address] [place] [address] USAChloride [Moles/Vol]102 mmol/GArphla33-049Pkg [facility] Physician GroupComment on above:Performed By: #### C4, CH50, C3 #### [facility] , #### CBC, UA, CMP, ESR #### [facility] [address] [place] [address] USACO2 [Moles/Vol]29.7 mmol/CZgehgw38.0-31.0The [facility] Physician GroupComment on above:Performed By: #### C4, CH50, C3 #### [facility] , #### CBC, UA, CMP, ESR #### [facility] [address] [place] [address] USACreatinine [Mass/Vol]1.05 mg/dLNormal0.60-1.20The [facility] Physician GroupComment on above:Performed By: #### C4, CH50, C3 #### [facility] , #### CBC, UA, CMP, ESR #### [place] [address] USAEstimated GFR59.703 mL/MinNormJoint Township District Memorial Hospitale [facility] Physician [facility] River GulfportComment on above:Performed By: #### C4, CH50, C3 #### [facility] , #### CBC, UA, CMP, ESR #### [facility] [address] [place] [address] USAGlobulin (S) [Mass/Vol]2.7 g/dLNoNovant Health/NHRMC Physician [facility] River GulfportComment on above:Performed By: #### C4, CH50, C3 #### [facility] , #### CBC, UA, CMP, ESR #### [place] [address] USAGlucose [Mass/Vol]154 mg/pLIihv89-282Xkj [facility] Physician GroupComment on above:Result Comment: Random Glucose Reference Range is dependent on time and content of last meal. Glucose of more than 200 mg/dL in a nonstressed, ambulatory subject supports the diagnosis of Diabetes Mellitus. ADA recommended reference rangePerformed By: #### C4, CH50, C3 #### [facility] , #### CBC, UA, CMP, ESR #### [place] [address] USAPotassium [Moles/Vol]4.2 mmol/LNormal3.5-5.1The [facility] Physician GroupComment on above:Performed By: #### C4, CH50, C3 #### [facility] , #### CBC, UA, CMP, ESR #### [place] [address] USAProtein [Mass/Vol]6.7 g/dLNormal6.4-8.9The [facility] Physician GroupComment on above:Performed By: #### C4, CH50, C3 #### [facility] , #### CBC, UA, CMP, ESR #### [place] [address] USASodium [Moles/Vol]139 mmol/WBymvwm252-431Mfd [facility] Physician GroupComment on above:Performed By: #### C4, CH50, C3 #### [facility] , #### CBC, UA, CMP, ESR #### [place] [address] USAUrea nitrogen [Mass/Vol]20 mg/dLNormal7-25The [facility] Physician GroupComment on above:Performed By: #### C4, CH50, C3 #### [facility] , #### CBC, UA, CMP, ESR #### [place] [address] USAErythrocyte Sedimentation Rateon 10-33-9290CTN (Bld) [Velocity]20 mm/hNormal0-29The [facility] Physician GroupComment on above:Result Comment: PERFORMED BY: [place] [address] PATHOLOGIST LIMB DRIVER BELEM MCCALL M.D.Performed By: #### C4, CH50, C3 #### [facility] , #### CBC, UA, CMP, ESR #### [place] [address] USAUrinalysison 39-73-8795Nfzleqidhc (U)ClearNormalClearBayfront Health St. Petersburg Emergency Room Physician GroupComment on above:Order Comment: Name Collection Type:: Clean-Voided MidstreamPerformed By: #### C4, CH50, C3 #### [facility] , #### CBC, UA, CMP, ESR #### [place] [address] USABilirubin,UrineNegativeNormalNegativeBayfront Health St. Petersburg Emergency Room Physician GroupComment on above:Order Comment: Name Collection Type:: Clean- Voided MidstreamPerformed By: #### C4, CH50, C3 #### [facility] , #### CBC, UA, CMP, ESR #### [place] [address] USAColor (U)Light-YellowNormalYellowBayfront Health St. Petersburg Emergency Room Physician GroupComment on above:Order Comment: Name Collection Type:: Clean-Voided MidstreamPerformed By: #### C4, CH50, C3 #### [facility] , #### CBC, UA, CMP, ESR #### [place] [address] USAGlucose Ql (U)NormalNormalNormalThe [facility] Physician GroupComment on above:Order Comment: Name Collection Type:: Clean-Voided MidstreamPerformed By: #### C4, CH50, C3 #### [facility] , #### CBC, UA, CMP, ESR #### [place] [address] USAKetones Ql (U)NegativeNormalNegativeBayfront Health St. Petersburg Emergency Room Physician GroupComment on above:Order Comment: Name Collection Type:: Clean- Voided MidstreamPerformed By: #### C4, CH50, C3 #### [facility] , #### CBC, UA, CMP, ESR #### [place] [address] USALeukocyte esterase Test strip Ql (U)NegativeNormalNegative The [facility] Physician GroupComment on above:Order Comment: Name Collection Type:: Clean-Voided MidstreamPerformed By: #### C4, CH50, C3 #### [facility] , #### CBC, UA, CMP, ESR #### [place] [address] USANitrite,UrineNegativeNormalNegativeThe [facility] Physician GroupComment on above:Order Comment: Name Collection Type:: Clean-Voided MidstreamPerformed By: #### C4, CH50, C3 #### [facility] , #### CBC, UA, CMP, ESR #### [place] [address] USAOccult Blood,UrineNegativeNormalNegativeThe [facility] Physician GroupComment on above:Order Comment: Name Collection Type:: Clean- Voided MidstreamResult Comment: PERFORMED BY: [place] [address] PATHOLOGIST LIMB DRIVER BELEM MCCALL M.D.Performed By: #### C4, CH50, C3 #### [facility] , #### CBC, UA, CMP, ESR #### [place] [address] USApH (U)5.5 [pH]Normal5.0-9.0The [facility] Physician Group Comment on above:Order Comment: Name Collection Type:: Clean-Voided Midstream Performed By: #### C4, CH50, C3 #### [facility] , #### CBC, UA, CMP, ESR #### [place] [address] USAProtein,UrineNegativeNormalNegativeThe [facility] Physician GroupComment on above:Order Comment: Name Collection Type:: Clean-Voided MidstreamPerformed By: #### C4, CH50, C3 #### [facility] , #### CBC, UA, CMP, ESR #### [place] [id number] USASpecificy Magdalena,Urine1.183Ibjsux0.001-1.030The [facility] Physician GroupComment on above:Order Comment: Name Collection Type:: Clean- Voided MidstreamPerformed By: #### C4, CH50, C3 #### [facility] , #### CBC, UA, CMP, ESR #### [facility] [address] [place] [address] USAUrobilinogen,UrineNormalNormalNormalThe [facility]an [facility] Physician GroupComment on above:Order Comment: Name Collection Type:: Clean- Voided MidstreamPerformed By: #### C4, CH50, C3 #### [facility] , #### CBC, UA, CMP, ESR #### [place] [address] USACBC AND AUTO DIFFon 23-83-4131UAIXNTQN BASOPHIL0.1 X10E9/L Normal0.0-0.2ProMedCleveland Clinic Mentor HospitalComment on above:Performed By: #### CODY CMP, , 2132-05 #### [facility] ([id number]) [address], [address] [place], [place] [address]IMGUYGLJ NEUTROPHIL7.2 X10E9/LHigh1.5-6.6ProPromedica Defiance Regional HospitalComment on above:Performed By: #### CBCA, CMP, , 2132-05 #### [facility] ([id number]) [address], [address] [place], [place] [address]Vsiwskezz/100 WBC (Bld)0.9 %NormalProBlanchard Valley Health System [facility] Comment on above:Performed By: #### CBCA, CMP, , 2132-05 #### [facility] ([id number]) [address], [address] [place], [place] [address]Viwigauklcp (Bld) [#/Vol]0.0 10*3/uLNormal0.0-0.4ProMedica [facility]ining HospitalComment on above:Performed By: #### ELDER ROSS, , 2132-05 #### [facility] ([id number]) [address], [address] [place], [place] [address]Bppjypvnmox/100 WBC (Bld)0.4 %NormalProBlanchard Valley Health System [facility] Comment on above:Performed By: #### CBCELDER Ely, , 2132-05 #### [facility] ([id number]) [address], [facility] [address] [place], [place] [address]Awkhrykeuke distribution width (RBC) [Ratio]15.2 %High11.5-15.0 Pro[facility]ining HospitalComment on above:Performed By: #### ELDER ROSS, , 2132-05 #### [facility] ([id number]) [address], [address] [place], [place] [address]Cpjohosxda (Bld) [Volume fraction]41.9 %Edjlrf25-43TlxOulhcb [place] HospitalComment on above:Performed By: #### ELDER ROSS, , 2132-05 #### [facility] ([id number]) [address], [address] [place], [place] [address]Kfydpbpuoz (Bld) [Mass/Vol]14.3 g/hNDhtbvf45.7-15.5ProMedica [facility] HospitalComment on above:Performed By: #### ELDER ROSS, , 2132-05 #### [facility] ([id number]) [address], [address] [place], [place] [address]Ouvffbzrfje (Bld) [#/Vol]1.7 10*3/uLNormal1.0-3.5ProMedica [facility] HospitalComment on above:Performed By: #### CBCSolis CMP, , 2132-05 #### [facility] ([id number]) [address], [address] [place], [place] [address]Oehuuaujkvp/100 WBC (Bld)18.0 %NormalProAccess Hospital Daytonca [facility] Comment on above:Performed By: #### CBCA, CMP, , 2132-05 #### [facility] ([id number]) [address], [address] [place], [place] [address]WQM (RBC) [Entitic mass]31.7 udPfkcys93-70XxsCqyixc [facility] HospitalComment on above:Performed By: #### CBCA, CMP, , 2132-05 #### [facility] ([id number]) [address], [address] [place], [place] [address]IRIG (RBC) [Mass/Vol]34.2 g/aGUabqrx01-35WjnEysyat [facility] HospitalComment on above:Performed By: #### CBCA, CMP, , 2132-05 #### [facility] ([id number]) [address], [address] [place], [place] [address]LLP (RBC) [Entitic vol]93 lTBwycut09-831FjlImthbn [facility] HospitalComment on above:Performed By: #### CBCA, CMP, , 2132-05 #### [facility] ([id number]) [address], [address] [place], [place] [address]Abxvlwuob (Bld) [#/Vol]0.6 10*3/uLNormal0-0.9ProMedica [facility] HospitalComment on above:Performed By: #### CBCA, CMP, , 2132-05 #### [facility] ([id number]) [address], [address] [place], [place] [address]Ynxesyiwc/100 WBC (Bld)6.1 %NormalProMedica [facility]illo Hospital Comment on above:Performed By: #### CBCSolis, CMP, , 2132-05 #### [facility] ([id number]) [address], [address] [place], [place] [address]Ggkavwxmddv/100 WBC (Bld)74.6 %NormalMadison Health Comment on above:Performed By: #### CBCSolis, CMP, , 2132-05 #### [facility] ([id number]) [address], [address] [place], [place] [address]Nlhgbeds mean volume (Bld) [Entitic vol]9.1 fLNormal7-12 Pro[facility] North Health CenterComment on above:Performed By: #### CODY CMP, , 2132-05 #### [facility] ([id number]) [address], [address] [place], [place] [address]Bkymoxhid (Bld) [#/Vol]265 10*3/eNEmtyip142-574NhpItuoga [facility] HospitalComment on above:Performed By: #### ELDER ROSS, , 2132-05 #### [facility] ([id number]) [address], [address] [place], [place] [address]PJQ COUNT4.51 X10E12/LNormal3.80-5.20[facility] Comment on above:Performed By: #### CBCSolis, CMP, , 2132-05 #### [facility] ([id number]) [address], [address] [place], [place] [address]NPS (Bld) [#/Vol]9.6 10*3/uLNormal4.0-11.0ProBlanchard Valley Health System [facility] HospitalComment on above:Performed By: #### CBCSolis, CMP, , 2132-05 #### [facility] ([id number]) [address], [address] [place], [place] [address]AIWETPWDXDNYS METABOLIC PANELon 98-89-7454Piaewpw [Mass/Vol]4.4 g/dLNormal3.2-5.3ProMedica Carrillo HospitalComment on above:Performed By: #### LEDER ROSS, 07602-1, 2132-05 #### [facility] ([id number]) [address], [address] [place], [place] [address]DWF [Catalytic activity/Vol]80 U/RYfaedm14-253WylYphzjk [facility]illo HospitalComment on above:Performed By: #### ELDER ROSS, 22994-7, 2132-05 #### [facility] ([id number]) [address], [address] [place], [place] [address]PEA [Catalytic activity/Vol]21 U/LNormal0-31ProMedica Carrillo HospitalComment on above:Performed By: #### ELDER ROSS, , 2132-05 #### [facility] ([id number]) [address], [address] [place], [place] [address]Npakk gap [Moles/Vol]11 mmol/LNormal5-15ProMedica Carrillo HospitalComment on above:Performed By: #### ELDER ROSS, , 2132-05 #### [facility] ([id number]) [address], [address] [place], [place] [address]ETP [Catalytic activity/Vol]18 U/LNormal0-41ProMedica Carrillo HospitalComment on above:Performed By: #### ELDER ROSS, 33720-2, 2132-05 #### [facility] ([id number]) [address], [address] [place], [place] [address]Nnfjspxnx [Mass/Vol]0.3 mg/dLNormal0.3-1.2ProMedica Carrillo HospitalComment on above:Performed By: #### ELDER ROSS, 822[address]-3, 2132-05 #### [facility] ([id number]) [address], [address] [place], [place] [address]Tgqqozz [Mass/Vol]9.6 mg/dLNormal8.5-10.5PBerger HospitalComment on above:Performed By: #### ELDRE ROSS, 59537-8, 2132-05 #### [facility] ([id number]) [address], [address] [place], [place] [address]Ytvvspcw [Moles/Vol]101 mmol/AOnnzoi88-338ZqgRebxaw [place] HospitalComment on above:Performed By: #### ELDER ROSS, , 2132-05 #### [facility] ([id number]) [address], [address] [place], [place] [address] [Moles/Vol]28 mmol/BVbntvo81-10IwpLqhigx [facility] Comment on above:Performed By: #### ELDER ROSS, , 2132-05 #### [facility] ([id number]) [address], [address] [place], [place] [address]Tufjrcjsep [Mass/Vol]0.96 mg/dLNormal0.40-1.00ProPromedica Defiance Regional HospitalComment on above:Result Comment: METHOD TRACEABLE TO IDMS STANDARD Performed By: #### ELDER ROSS, , 2132-05 #### [facility] ([id number]) [address], [address] [place], [place] [address]ALJ/1.73 sq M.predicted among non-blacks MDRD (S/P/Bld) [Vol rate/Area]66 mL/min/{1.73_m2}Normal>59ProPromedica Defiance Regional HospitalComment on above: Result Comment: Reported eGFR is based on the CKD-EPI 2020 equation that does not use a race coefficient.Performed By: #### ELDER ROSS, 43005-1, 2132-05 #### [facility] ([id number]) [address], [address] [place], [place] [address]Avmfxtm [Mass/Vol]130 mg/iVJdob81-42TmjJcvgkgPromedica Defiance Regional Hospital Comment on above:Performed By: #### ELDER ROSS, , 2132-05 #### [facility] ([id number]) [address], [address] [place], [place] [address]Fmmorcclo [Moles/Vol]4.0 mmol/LNormal3.5-5.0ProAccess Hospital Daytonca [facility]ining HospitalComment on above:Performed By: #### ELDER RSOS, , 2132-05 #### [facility] ([id number]) [address], [address] [place], [place] [address]Gutjojz [Mass/Vol]7.4 g/dLNormal6.0-8.0ProPromedica Defiance Regional Hospital Comment on above:Performed By: #### ELDER ROSS, , 2132-05 #### [facility] ([id number]) [address], [address] [place], [place] [address]Qqqjue [Moles/Vol]140 mmol/OAsssmg648-176CntJngdlx [place] HospitalComment on above:Performed By: #### ELDER ROSS, , 2132-05 #### [facility] ([id number]) [address], [address] [place], [place] [address]Wgki nitrogen [Mass/Vol]23 mg/dLNormal5-27ProAccess Hospital Daytonca [facility] HospitalComment on above:Performed By: #### ELDER ROSS, , 2132-05 #### [facility] ([id number]) [address], [address] [place], [place] [address]Vnjpo 1996 panelon 88-39-6372Qwwqxjcfchp [Mass/Vol]213 mg/dLHigh 150-200ProMedica [facility] HospitalComment on above:Performed By: #### ELDER ROSS, , 2132-05 #### [facility] ([id number]) [address], [address] [place], [place] [address]Gxytyzbgksp in HDL [Mass/Vol]58 mg/dLNormal>39ProMediMcKitrick Hospital HospitalComment on above:Result Comment: HDL <40 mg/dL - High Risk HDL > or = 40mg/dL- Desirable HDL >60 mg/dL - Negative Risk Performed By: #### ELDER ROSS, , 2132-05 #### [facility] ([id number]) [address], [address] [place], [place] [address]Htbneuxlyir in LDL [Mass/Vol]90 mg/dLNormal<130ProBlanchard Valley Health System [facility] HospitalComment on above:Result Comment: LDL <100 mg/dL - Desirable LDL >160 mg/dL - High Risk Performed By: #### ELDER ROSS, , 2132-05 #### [facility] ([id number]) [address] [place], [place] [address]Lqobbszwrtr in VLDL [Mass/Vol]65 mg/dLHigh0-30ProBlanchard Valley [facility] HospitalComment on above:Performed By: #### ELDER ROSS, , 2132-05 #### [facility] ([id number]) [address], [address] [place], [place] [address]CRTJRIPNHIA:HDL3.8Dtvnld8.0-5.0ProBlanchard Valley Health System [facility] HospitalComment on above:Performed By: #### ELDER ROSS, , 2132-05 #### [facility] ([id number]) [address], [address] [place], [place] [address]Ogbeorqneqeg [Mass/Vol]326 mg/mDMujo62-168LceMzvkze [facility] Health CenterComment on above:Performed By: #### CBCA, CMP, 21635-7, 2132-05 #### [facility] ([id number]) [address], [address] [place], [place] [address]PHCYQNI B12on 38-49-2423Farawsoks (Vitamin B12) [Mass/Vol]pg/mL Fzbd807-148RpzYzevru [facility] Health CenterComment on above:Performed By: #### CBCA, CMP, , 2132-05 #### [facility] ([id number]) [address], [address] [place], [place] [address]DLD,APTIMA HPV,AGE GDLNon 57-55-2982PCA GDLN ACOG TESTINGNote. Mercy hospital springfieldComment on above:TESTS RESULT FLAG UNITS REF RANGE LAB Clinician Provided Cytology Information Source.............Cervix;Endocervix No. of containers..01 ThinPrep Vial Age Algo ACOG Trudy... FLAG LEGEND: L-Low Normal,H-High Normal,LL-Alert Low,HH-Alert High <-Panic Low,>-Panic High,A-Abnormal,AA-Critical Abnormal Performed at: 01 =[address] [place] [address] Fatmata Marks MD, HPV APTIMAPositiveAbnormalNegativeNOMS HealthcareComment on above:This nucleic acid amplification test detects fourteen high- risk HPV types (16,18,31,33,35,39,45,51,52,56,58,59,66,68) without differentiation. HPV GENOTYPE 16NegativeNegativeNOMS HealthcareHPV GENOTYPE 18,45NegativeNegative NOMS HealthcareComment on above:Performed at: =[address] [id number] Forest [employer] Fighter: Fatmata Marks MD, Phone: [phone] Performed at: [address] [id number] [employer]: Fatmata Marks MD, Phone: [phone] IGP, APTIMA HPV, RFX 16/18,45Note.NOMS HealthcareComment on above:TESTS RESULT FLAG UNITS REF RANGE LAB DIAGNOSIS: 02 NEGATIVE FOR INTRAEPITHELIAL LESION OR MALIGNANCY. CELLULAR CHANGES ASSOCIATED WITH ATROPHY AND INFLAMMATION ARE PRESENT. Specimen adequacy: 02 Satisfactory for evaluation. Endocervical component may not be distinguished in cases of atrophy. Areas of partially obscuring inflammatory exudate are present. Performed by: Patrick Rivers, Galley Hand (ASCP) . 02 Note: Note 02 The [...] Low,>-Panic High,A-Abnormal,AA-Critical Abnormal Performed at: [address] [address] Fatmata Marks MD, Interpretation and review of laboratory resultsAbnormalMercy hospital springfield BRUSH-SPATULA CERVIX ENDOCERVIX CLINISYNCMercy hospital springfieldAlanine aminotransferase [Enzymatic activity/volume] in Serum or PlasmaOrdered By: Carlotta Stanley on 70-50-1260VQJ [Catalytic activity/Vol]16 U/L7-52[facility] CenterAlbumin [Mass/volume] in Serum or Plasma by Bromocresol green (BCG) dye binding methoOrdered By: Carlotta Stanley on 07-62-4999Jjpjmlh BCG dye [Mass/Vol]4.0 g/dL3.5-5.7FRegency Hospital ToledoAlkaline phosphatase [Enzymatic activity/volume] in Serum or PlasmaOrdered By: Carlotta Stanley on 23-65-5241WDI [Catalytic activity/Vol]72 U/A56-967HyhfutwmcSouthview Medical CenterAspartate aminotransferase [Enzymatic activity/volume] in Serum or PlasmaOrdered By: Carlotta Stanley on 97-99-4224LWS [Catalytic activity/Vol]12 U/L35-55MpogzpmhaSouthview Medical CenterAutomated epithelial cells count in urine sediment (number/area)Ordered By: Carlotta Stanley on 16-52-9821Rwvzbdghls cells Auto (Urine sed) [#/Area]0-1 [HPF]0-2FRegency Hospital ToledoBacteria [Presence] in Urine by AutomatedOrdered By: Carlotta Stanley on 70-71-4845Ssgxmffh Auto Ql (U)None seen [HPF]None SeenSouthview Medical CenterBasophils Auto (Bld) [#/Vol]Ordered By: Carlotta Stanley on 48-41-3652Vtuxpwjhq (Bld) [#/Vol]0.1 10*3/uL0.0-0.2FRegency Hospital ToledoBasophils/100 WBC Auto (Bld)Ordered By: Carlotta Stanley on 02-25-2024 Basophils/100 WBC (Bld)0.8 %.[facility] Medical CenterBilirubin Test strip Ql (U)Ordered By: Carlotta Stanley on 48-67-0329Rslarrphm Ql (U)Negative NegativeSouthview Medical CenterBilirubin.total [Mass/volume] in Serum or PlasmaOrdered By: Carlotta Stanley on 13-30-1733Qyowjajwq [Mass/Vol]0.3 mg/dL 0.3-1.0[facility] Medical CenterCalcium [Mass/volume] in Serum or Plasma Ordered By: Carlotta Stanley on 36-56-3075Nrzrwpn [Mass/Vol]9.1 mg/dL8.6-10.3 [facility] Medical CenterCarbon dioxide, total [Moles/volume] in Serum or PlasmaOrdered By: Carlotta Stanley on 73-62-1723LK6 [Moles/Vol]30.9 mmol/L 21.0-31.0[facility] Medical CenterChloride [Moles/volume] in Serum or PlasmaOrdered By: Carlotta Stanley on 59-89-9694Boyuornu [Moles/Vol]103 mmol/L 98-107South[facility] Medical CenterColor Auto (U)Ordered By: Carlotta Stanley on 24-61-5922Bjuqe (U)YellowYellowSouthview Medical CenterCreatinine [Mass/volume] in Serum or PlasmaOrdered By: Carlotta Stanley on 02-25-2024 Creatinine [Mass/Vol]0.91 mg/dL0.60-1.20[facility] Eosinophils Auto (Bld) [#/Vol]Ordered By: Carlotta Stanlye on 02-25-2024 Eosinophils (Bld) [#/Vol]0.1 10*3/uL0.0-0.45[facility] Eosinophils/100 WBC Auto (Bld)Ordered By: Carlotta Stanley on 02-25-2024 Eosinophils/100 WBC (Bld)0.9 %.[facility] Medical CenterErythrocyte distribution width Auto (RBC) [Ratio]Ordered By: Carlotta Stanley on 02-25-2024 Erythrocyte distribution width (RBC) [Ratio]15.0 %11.9-15.3FRegency Hospital ToledoErythrocyte sedimentation rate by Photometric methodOrdered By: Carlotta Stanley on 69-99-9839TXH Photometric method (Bld) [Velocity]21 mm/hr0-29 [facility] Medical CenterErythrocytes [#/area] in Urine sediment by Automated countOrdered By: Carlotta Stanley on 29-34-5861DSC Auto (Urine sed) [#/Area]0-1 [HPF]0-4FRegency Hospital ToledoGlobulin Calc (S) [Mass/Vol]Ordered By: Carlotta Stanley on 49-09-4551Ntvwwogk (S) [Mass/Vol]2.5 g/dLSouthview Medical CenterGlucose [Mass/volume] in Serum or Plasma Ordered By: Carlotta Stanley on 29-43-5061Aegndzf [Mass/Vol]119 mg/uC42-776 [facility] Medical CenterComment on above:ADA recommended reference rangeRandom Glucose Reference Range is dependent on time and content of last meal. Glucose of more than 200 mg/dL in a nonstressed, ambulatory subject supports the diagnosisof Diabetes Mellitus.Hematocrit Auto (Bld) [Volume fraction]Ordered By: Carlotta Stanley on 22-58-1686Kyeaynccnc (Bld) [Volume fraction]38.3 %34.0-46.4FRegency Hospital ToledoHemoglobin [Mass/volume] in BloodOrdered By: Carlotta Stanley on 22-01-7186Hqyputceky (Bld) [Mass/Vol]12.6 g/dL11.8-15.4FRegency Hospital ToledoKetones Auto test strip (U) [Mass/Vol]Ordered By: Carlotta Stanley on 47-02-7279Clhcaed (U) [Mass/Vol]NegativeNegativeSouthview Medical CenterLaboratory - UrinalysisOrdered By: Carlotta Stanley on 41-79-1351Egrdgmj casts LM Ql (Urine sed)None seen [LPF]0-8[facility] Medical CenterLeukocytes [#/area] in Urine sediment by Automated countOrdered By: Carlotta Stanley on 10-21-3899LAF Auto (Urine sed) [#/Area]0-1 [HPF]0-4FRegency Hospital ToledoLeukocytes [#/volume] corrected for nucleated erythrocytes in Blood by Automated coun Ordered By: Carlotta Stanley on 16-51-2447PEZ corrected for nucl RBC Auto (Bld) [#/Vol]6.8 10*3/uL3.8-11.6FRegency Hospital ToledoLymphocytes Auto (Bld) [#/Vol]Ordered By: Carlotta Stanley on 57-90-7733Wuvhwrkcisv (Bld) [#/Vol] 1.7 10*3/uL1.00-4.8[facility] Medical CenterLymphocytes/100 WBC Auto (Bld)Ordered By: Carlotta Stanley on 37-64-9538Idoaqxymxom/100 WBC (Bld)25.2 %. [facility] Medical CenterH Auto (RBC) [Entitic mass]Ordered By: Carlotta Stanley on 50-07-4227WVG (RBC) [Entitic mass]30.5 pg24.7-34.3FRegency Hospital ToledoMCHC Auto (RBC) [Mass/Vol]Ordered By: Carlotta Stanley on 55-91-4842CJDH (RBC) [Mass/Vol]33.0 g/dL32.0-35.0[facility] Medical CenterMCV Auto (RBC) [Entitic vol]Ordered By: Carlotta Stanley on 13-61-8069WDN (RBC) [Entitic vol]92.5 kF96-203Jfwjdjqbe Regional Medical CenterMonocytes Auto (Bld) [#/Vol]Ordered By: Carlotta Stanley on 45-54-2479Zkmicxibi (Bld) [#/Vol]0.7 10*3/uL0.0-0.8[facility] CenterMonocytes/100 WBC Auto (Bld) Ordered By: Carlotta Stanley on 97-81-4282Dfhcbtvkm/100 WBC (Bld)10.0 %.[facility] Medical CenterNeutrophils Auto (Bld) [#/Vol]Ordered By: Carlotta Stanley on 46-13-5167Vouyonjticr (Bld) [#/Vol]4.3 10*3/uL1.8-7.7FRegency Hospital ToledoNeutrophils/100 WBC Auto (Bld)Ordered By: Carlotta Stanley on 74-81-0121Xlebtajayho/100 WBC (Bld)63.1 %.[facility] Nitrite Test strip Ql (U)Ordered By: Carlotta Stanley on 09-16-8518Pxztrsy Ql (U) NegativeNegativeSouthview Medical CenterNo Panel InformationOrdered By: Carlotta Stanley on 90-11-4226Ilpvxplaz GFR (CKD-EPI)> 60.0 mL/MinSouthview Medical CenterPharmacy Creatinine Clearance (ChemN/AFRegency Hospital ToledoNucleated erythrocytes [Presence] in Blood by Automated count Ordered By: Carlotta Stanley on 08-00-7514Ihxmnpffg RBC Auto Ql (Bld)0.1 /100{WBC} 0-0.5FRegency Hospital ToledoPlatelet mean volume Auto (Bld) [Entitic vol]Ordered By: Carlotta Stanley on 65-79-7865Mnwbgqhq mean volume (Bld) [Entitic vol]8.1 fL6.3-10.7FRegency Hospital ToledoPlatelets Auto (Bld) [#/Vol] Ordered By: Carlotta Stanley on 37-76-3898Lszznllyv (Bld) [#/Vol]297 10*3/uL 150-450South[facility] Medical CenterPotassium [Moles/volume] in Serum or PlasmaOrdered By: Carlotta Stanley on 89-57-0776Hblnknjuv [Moles/Vol]4.1 mmol/L 3.5-5.1FRegency Hospital ToledoProtein Auto test strip (U) [Mass/Vol] Ordered By: Carlotta Stanley on 64-55-6830Yfujekk (U) [Mass/Vol]NegativeNegative [facility] CenterProtein [Mass/volume] in Serum or PlasmaOrdered By: Carlotta Stanley on 65-62-3598Zsjekqq [Mass/Vol]6.5 g/dL6.4-8.9[facility] Medical CenterRBC Auto (Bld) [#/Vol]Ordered By: Carlotta Stanley on 42-67-7126DEQ (Bld) [#/Vol]4.14 10*6/uL3.60-5.00Wilson Healtherum or plasma albumin/globulin mass ratioOrdered By: Carlotta Stanley on 70-32-3479Agxxqma/Globulin [Mass ratio]1.6 {ratio}Wilson Healtherum or plasma anion gap determinationOrdered By: Carlotta Stanley on 16-62-6621Thter gap [Moles/Vol]9.2 mmol/L6.0-15.0Wilson Healthodium [Moles/volume] in Serum or PlasmaOrdered By: Carlotta Stanley on 22-25-8856Pndfld [Moles/Vol]139 mmol/W878-538VwwhqvlrpSouthview Medical Center Specific gravity Auto test strip (U) [Rel density]Ordered By: Carlotta Stanley on 83-48-1462Feafgniu gravity (U) [Rel density]1.0151.001-1.030[facility] Medical CenterUrea nitrogen [Mass/volume] in Serum or PlasmaOrdered By: Carlotta Stanley on 26-12-3467Ajec nitrogen [Mass/Vol]20 mg/dL7-25[facility] Medical CenterUrine clarity by refractometry automatedOrdered By: Carlotta Stanley on 73-87-0811Tpknbco Refractometry automated (U)ClearCleHolzer HospitalUrine glucose measurement by automated test strip (mass/volume) Ordered By: Carlotta Stanley on 43-26-8727Llukswn Auto test strip (U) [Mass/Vol] Normal mg/dLNoMercy Health St. Anne HospitalUrine hemoglobin detection by automated test stripOrdered By: Carlotta Stanley on 55-27-0304Rbtafsxaat Auto test strip Ql (U)NegativeNegBarberton Citizens HospitalUrine leukocyte esterase detection by automated test stripOrdered By: Carlotta Stanley on 54-30-4401Vadxtsxks esterase Auto test strip Ql (U)NegativeNegBarberton Citizens HospitalUrobilinogen Auto test strip (U) [Mass/Vol]Ordered By: Carlotta Stanley on 34-48-0086Hfuvpmhqtyba (U) [Mass/Vol]Normal mg/dLCleveland Clinic Euclid HospitalWBC Auto (Bld) [#/Vol]Ordered By: Carlotta Stanley on 26-32-8003LVO (Bld) [#/Vol]6.8 10*3/uL3.8-11.6FRegency Hospital ToledopH Auto test strip (U)Ordered By: Carlotta Stanley on 91-18-4748nY (U)5.5 [pH]5.0-9.0[facility] CenterCBC AND AUTO DIFFon 61-70-2616YPGEYNEB BASOPHIL0.0 X10E9/LNormal0.0-0.2PBerger Hospital Comment on above:Performed By: #### CBCA, CMP, TSHR, 2132-05 #### [facility] ([id number]) [address] [place], [place] [address]QZNNZWYT NEUTROPHIL6.1 X10E9/LNormal1.5-6.6Madison HealthComment on above:Performed By: #### CBCA, CMP, TSHR, 2132-05 #### [facility] ([id number]) [facility] [place], [place] [address]Iijaqyncr/100 WBC (Bld)0.5 %NormalMadison Health Comment on above:Performed By: #### CBCA, CMP, TSHR, 2132-05 #### [facility] ([id number]) [address] [address] [place], [place] [address]Ddlfzwaqcoe (Bld) [#/Vol]0.1 10*3/uLNormal0.0-0.4ProBlanchard Valley [facility] System [facility] HospitalComment on above:Performed By: #### CBCA, CMP, TSHR, 2132-05 #### [facility] ([id number]) [address] [facility] [address] [place], [place] [address]Stscqfufevc/100 WBC (Bld)0.6 %NormalProBlanchard Valley Health System [facility] Comment on above:Performed By: #### CBCA, CMP, TSHR, 2132-05 #### [facility] ([id number]) [address] [address] [place], [place] [address]Ulyuzbmpnpq distribution width (RBC) [Ratio]14.6 %Normal 11.5-15.0ProBlanchard Valley Health System [facility] HospitalComment on above:Performed By: #### CBCA, CMP, TSHR, 2132-05 #### [facility] ([id number]) [address] [address] [place], [place] [address]Padhueqzkd (Bld) [Volume fraction]41.7 %Xufqkk20-51XgpCxguhl [place] HospitalComment on above:Performed By: #### CBCA, CMP, TSHR, 2132-05 #### [facility] ([id number]) [address] [address] [place], [place] [address]Cprbxsuebs (Bld) [Mass/Vol]13.6 g/fIGjtkfe14.7-15.5PMercy Health [facility] HospitalComment on above:Performed By: #### CBCA, CMP, TSHR, 2132-05 #### [facility] ([id number]) [address] [address] [place], [place] [address]Zdkbxcdvurd (Bld) [#/Vol]1.5 10*3/uLNormal1.0-3.5ProMedica Lee Vining HospitalComment on above:Performed By: #### CBCA, CMP, TSHR, 2132-05 #### [facility] ([id number]) [address], [address] [place], [place] [address]Dqbsaeliwqd/100 WBC (Bld)17.6 %NormalProBlanchard Valley Health System [facility] Hospital Comment on above:Performed By: #### CBCA, CMP, TSHR, 2132-05 #### [facility] ([id number]) [address], [address] [place], [place] [address]LPT (RBC) [Entitic mass]30.0 npSoeupt96-50MoyAzapgj [place] HospitalComment on above:Performed By: #### CBCA, CMP, TSHR, 2132-05 #### [facility] ([id number]) [address], [address] [place], [place] [address]MRTV (RBC) [Mass/Vol]32.6 g/mEDmynvv33-10IzoQogerf [place] HospitalComment on above:Performed By: #### CBCA, CMP, TSHR, 2132-05 #### [facility] ([id number]) [address], [address] [place], [place] [address]UBV (RBC) [Entitic vol]92 gDKydeor04-130TfkAvavme [place] HospitalComment on above:Performed By: #### CBCA, CMP, TSHR, 2132-05 #### [facility] ([id number]) [address], [address] [place], [place] [address]Uaaltgmgq (Bld) [#/Vol]0.7 10*3/uLNormal0-0.9ProBlanchard Valley Health [facility] HospitalComment on above:Performed By: #### CBCA, CMP, TSHR, 2132-05 #### [facility] ([id number]) [address], [address] [place], [place] [address]Kfeuhfppo/100 WBC (Bld)8.0 %NormalMadison Health Comment on above:Performed By: #### CBCA, CMP, TSHR, 2132-05 #### [facility] ([id number]) [address], [address] [place], [place] [address]Tqbgplkcnhp/100 WBC (Bld)73.3 %NormalMadison Health Comment on above:Performed By: #### CBCA, CMP, TSHR, 2132-05 #### [facility] ([id number]) [address], [address] [place], [place] [address]Wcppennm mean volume (Bld) [Entitic vol]9.0 fLNormal7-12 Madison HealthComment on above:Performed By: #### CBCA, CMP, TSHR, 2132-05 #### [facility] ([id number]) [address], [address] [place], [place] [address]Irntkjlbc (Bld) [#/Vol]255 10*3/hNLcwthd661-647QwvYmrmwx [place] HospitalComment on above:Performed By: #### CBCA, CMP, TSHR, 2132-05 #### [facility] ([id number]) [address] [address] [place] [address]RCB COUNT4.52 X10E12/LNormal3.80-5.20[facility] Comment on above:Performed By: #### CBCA, CMP, TSHR, 2132-05 #### [facility] ([id number]) [address], [address] [place], [place] [address]PKV (Bld) [#/Vol]8.4 10*3/uLNormal4.0-11.0Madison HealthComment on above:Performed By: #### CBCA, CMP, TSHR, 2132-05 #### [facility] ([id number]) [address], [address] [place] [address]ITNNTGPDWWSNO METABOLIC PANELon 81-13-1727Rwkrysw [Mass/Vol]4.2 g/dLNormal3.2-5.3ProMedica [facility] HospitalComment on above:Performed By: #### CBCA, CMP, TSHR, 2132-05 #### [facility] ([id number]) [address] [place] [address]YID [Catalytic activity/Vol]97 U/LRxosef07-821WusXidwfi [place] HospitalComment on above:Performed By: #### CBCA, CMP, TSHR, 2132-05 #### [facility] ([id number]) [address], [address] [place] [address]BWM [Catalytic activity/Vol]22 U/LNormal0-31ProMednorth alabama specialty hospital [place] HospitalComment on above:Performed By: #### CBCA, CMP, TSHR, 2132-05 #### [facility] ([id number]) [address], [address] [place], [place] [address]Ikglw gap [Moles/Vol]10 mmol/LNormal5-15Pro[facility] HospitalComment on above:Performed By: #### CBCA, CMP, TSHR, 2132-05 #### [facility] ([id number]) [address], [address] [place], [place] [address]DPY [Catalytic activity/Vol]15 U/LNormal0-41ProMedica [facility] HospitalComment on above:Performed By: #### CBCA, CMP, TSHR, 2132-05 #### [facility] ([id number]) [address], [address] [place], [place] [address]Yzpvtxvbb [Mass/Vol]0.3 mg/dLNormal0.3-1.2ProMedica [facility] HospitalComment on above:Performed By: #### CBCA, CMP, TSHR, 2132-05 #### [facility] ([id number]) [address] [address] [place], [place] [address]Ahxglyv [Mass/Vol]9.1 mg/dLNormal8.5-10.5PBerger HospitalComment on above:Performed By: #### CBCA, CMP, TSHR, 2132-05 #### [facility] ([id number]) [address], [address] [place], [place] [address]Xayymoca [Moles/Vol]102 mmol/UWzklha04-806XcvBjfguv [place] HospitalComment on above:Performed By: #### CBCA, CMP, TSHR, 2132-05 #### [facility] ([id number]) [address] [address] [place], [place] [address]MW3 [Moles/Vol]30 mmol/RMjmmik11-80NvcKktlzvBerger Hospital Comment on above:Performed By: #### CBCA, CMP, TSHR, 2132-05 #### [facility] ([id number]) [address] [address] [place], [place] [address]Wjnuyrgbhv [Mass/Vol]0.99 mg/dLNormal0.40-1.00ProPromedica Defiance Regional HospitalComment on above:Result Comment: METHOD TRACEABLE TO IDMS STANDARD Performed By: #### CBCA, CMP, TSHR, 2132-05 #### [facility] ([id number]) [address] [address] [place], [place] [address]EXQ/1.73 sq M.predicted among non-blacks MDRD (S/P/Bld) [Vol rate/Area]64 mL/min/{1.73_m2}Normal>59ProPromedica Defiance Regional HospitalComment on above: Result Comment: Reported eGFR is based on the CKD-EPI 2020 equation that does not use a race coefficient.Performed By: #### CBCA, CMP, TSHR, 2132-05 #### [facility] ([id number]) [address], [address] [place], [place] [address]Anyhjqu [Mass/Vol]108 mg/eBSxvt54-66VvcVtsnazMadison Health Comment on above:Performed By: #### CBCA, CMP, TSHR, 2132-05 #### [facility] ([id number]) [address], [address] [place] [address]Uhczxjxxl [Moles/Vol]4.1 mmol/LNormal3.5-5.0ProBlanchard Valley Health System [facility] HospitalComment on above:Performed By: #### CBCA, CMP, TSHR, 2132-05 #### [facility] ([id number]) [address], [address] [place], [place] [address]Pjelugv [Mass/Vol]7.3 g/dLNormal6.0-8.0[facility] Comment on above:Performed By: #### CBCA, CMP, TSHR, 2132-05 #### [facility] ([id number]) [address], [address] [place], [place] [address]Wlshdg [Moles/Vol]142 mmol/RGkuksh484-222MqmQqnguh [place] HospitalComment on above:Performed By: #### CBCA, CMP, TSHR, 2132-05 #### [facility] ([id number]) [address], [address] [place] [address]Sfeg nitrogen [Mass/Vol]17 mg/dLNormal5-27ProBlanchard Valley Health System [facility] HospitalComment on above:Performed By: #### CBCA, CMP, TSHR, 2132-05 #### [facility] ([id number]) [address], [address] [place], [place] [address]BJX WITH REFLEXon 42-87-6456YZG7.36 uIU/mLNormal0.49-4.67 ProMCherrington Hospital HospitalComment on above:Performed By: #### CBCA, CMP, TSHR, 2132-05 #### [facility] ([id number]) [address], [address] [place], [place] [address]YTMZUCT B12on 82-47-7277Nnnuvctpc (Vitamin B12) [Mass/Vol]1078 pg/cZHtpr865-733ObkEoztag [facility]itan North Health CenterComment on above:Performed By: #### CBCA, CMP, TSHR, 2132-9 #### [facility] ([id number]) [address], [address] [place], [place] [address]Vvwxlfdg Analysison 96-70-3718Foqtdic oxalate dihydrate Infrared spectroscopy (Stone) [Mass fraction]50 %Invalid Interpretation [facility] HamiltonComment on above:Performed By: #### [id number] #### [facility] [address], [place] [address]Uzvteva oxalate monohydrate (Stone) [Mass fraction]50 %Invalid Interpretation [facility] HamiltonComment on above:Performed By: #### [id number] #### [facility] [address], [place] [address]Lhynl (Stone)BrownInvalid Interpretation [facility] HamiltonComment on above:Performed By: #### [id number] #### [facility] [address], [place] [address]CymuaaatqibSunfaqoRudbxqs Interpretation [facility] HamiltonComment on above:Result Comment: Percentage (Represents the % composition)Performed By: #### [id number] #### [facility] [address], [place] [address]Mvqgohwdud:CommentInvalid Interpretation [facility] HamiltonComment on above:Result Comment: This test was developed and its performance characteristics determined by [employer]. It has not been cleared or approved by the Food and Drug Administration. Performed at: [address] [id number] Harris Padillaformed By: #### [id number] #### [facility] [address], [place] [address]Kjqfypffxh comment Gagandeep (Report)CommentInvalid Interpretation [facility] HamiltonComment on above:Result Comment: Physician questions regarding Calculi Analysis contact [facility] at: [phone].Performed By: #### [id number] #### [facility] [address], [place] [address]Sgsyrb Note:CommentInvalid Interpretation [facility] HamiltonComment on above:Result Comment: Calculi report will follow via computer, mail or toll ticket clerk delivery.Performed By: #### [id number] #### [facility] [address], [place] [address]Dedb (Stone) [Entitic vol]6f9Dewreom Interpretation [facility] HamiltonComment on above:Result Comment: Single piece received. Performed By: #### [id number] #### [facility] [address], [place] [address]Suqxndsp source subject NomCommentInvalid Interpretation Code Wilson HealthComment on above:Result Comment: Not provided Performed By: #### [id number] #### [facility] [address], [place] [address]Yaeli PhotoCommentInvalid Interpretation [facility] HamiltonComment on above:Result Comment: Photograph will follow under a separate coverPerformed By: #### [id number] #### [facility] [address], [place] [address]Frktwq (Stone)52 mgInvalid Interpretation [facility] HamiltonComment on above:Performed By: #### [id number] #### [facility] [address], [place] [address]IFP - MISCon 42-22-2389EIE - MISC [id number]#1.00TIFFNormVeterans Health AdministrationAlanine aminotransferase [Enzymatic activity/volume] in Serum or Plasma Ordered By: Pancho Underwood on 83-74-1634XKE [Catalytic activity/Vol]16 U/L7-52 [facility] CenterAlbumin [Mass/volume] in Serum or Plasma by Bromocresol green (BCG) dye binding methoOrdered By: Pancho Underwood on 50-27-9734Jfdezxx BCG dye [Mass/Vol]4.3 g/dL3.5-5.7FRegency Hospital ToledoAlkaline phosphatase [Enzymatic activity/volume] in Serum or PlasmaOrdered By: Pancho Underwood on 37-62-1291CCK [Catalytic activity/Vol]77 U/L34-104 [facility] CenterAspartate aminotransferase [Enzymatic activity/volume] in Serum or PlasmaOrdered By: Pancho Underwood on 60-24-2619RXO [Catalytic activity/Vol]15 U/X56-13UynefuzjfSouthview Medical CenterAutomated erythrocytes count in urine sediment (number/area)Ordered By: Pancho Underwood on 32-91-6935WDG Auto (Urine sed) [#/Area]3-4 [HPF]0-4FRegency Hospital ToledoAutomated leukocytes count in urine sediment (number/area)Ordered By: Pancho Underwood on 34-73-3750QCD Auto (Urine sed) [#/Area]0-1 [HPF]0-4FRegency Hospital ToledoBasophils Auto (Bld) [#/Vol]Ordered By: Pancho Underwood on 74-94-8030Bzwdxnknm (Bld) [#/Vol]0.1 10*3/uL0.0-0.2FRegency Hospital ToledoBasophils/100 WBC Auto (Bld)Ordered By: Pancho Underwood on 10-04-2023 Basophils/100 WBC (Bld)0.7 %.[facility] CenterBilirubin Test strip Ql (U)Ordered By: Pancho Underwood on 11-35-3990Ddewxhpkm Ql (U)Negative NegativeSouthview Medical CenterBilirubin.total [Mass/volume] in Serum or PlasmaOrdered By: Pancho Underwood on 91-06-0829Esjwqwpjn [Mass/Vol]0.4 mg/dL 0.3-1.0[facility] CenterCalcium [Mass/volume] in Serum or Plasma Ordered By: Pancho Underwood on 34-09-7265Ugmlpam [Mass/Vol]9.6 mg/dL8.6-10.3 [facility] CenterCarbon dioxide, total [Moles/volume] in Serum or PlasmaOrdered By: Pancho Underwood on 62-39-1079RU6 [Moles/Vol]29.9 mmol/L 21.0-31.0[facility] CenterChloride [Moles/volume] in Serum or PlasmaOrdered By: Pancho Underwood on 36-89-5740Gyyrrfsr [Moles/Vol]99 mmol/L 98-107[facility] CenterColor Auto (U)Ordered By: Pancho Underwood on 75-16-7100Kdvon (U)YellowYellowSouthview Medical CenterCreatinine [Mass/volume] in Serum or PlasmaOrdered By: Pancho Underwood on 10-04-2023 Creatinine [Mass/Vol]1.08 mg/dL0.60-1.20[facility] Eosinophils Auto (Bld) [#/Vol]Ordered By: Pancho Underwood on 10-04-2023 Eosinophils (Bld) [#/Vol]0.1 10*3/uL0.0-0.45[facility] Eosinophils/100 WBC Auto (Bld)Ordered By: Pancho Underwood on 10-04-2023 Eosinophils/100 WBC (Bld)0.7 %.[facility] Medical CenterErythrocyte distribution width Auto (RBC) [Ratio]Ordered By: Pancho Underwood on 10-04-2023 Erythrocyte distribution width (RBC) [Ratio]14.0 %11.9-15.3FRegency Hospital ToledoErythrocyte sedimentation rate by Photometric methodOrdered By: Pancho Underwood on 26-72-9570ZVE Photometric method (Bld) [Velocity]26 mm/hr0-29 [facility] CenterGlobulin Calc (S) [Mass/Vol]Ordered By: Pancho Underwood on 50-54-2314Vfolkoyl (S) [Mass/Vol]2.7 g/dLSouthview Medical CenterGlucose [Mass/volume] in Serum or PlasmaOrdered By: Pancho Underwood on 36-44-4929Zkgityh [Mass/Vol]128 mg/hF37-366YppmoedbhSouthview Medical Center Comment on above:ADA recommended reference rangeRandom Glucose Reference Range is dependent on time and content of last meal. Glucose of more than 200 mg/dL in a nonstressed, ambulatory subject supports the diagnosisof Diabetes Mellitus. Hematocrit Auto (Bld) [Volume fraction]Ordered By: Pancho Underwood on 10-04-2023 Hematocrit (Bld) [Volume fraction]40.7 %34.0-46.4FRegency Hospital ToledoHemoglobin [Mass/volume] in BloodOrdered By: Pancho Underwood on 10-04-2023 Hemoglobin (Bld) [Mass/Vol]13.6 g/dL11.8-15.4FRegency Hospital Toledo Ketones Auto test strip (U) [Mass/Vol]Ordered By: Pancho Underwood on 10-04-2023 Ketones (U) [Mass/Vol]NegativeNegativeSouthview Medical Center Laboratory - UrinalysisOrdered By: Pancho Underwood on 81-93-0938Gbddpzj casts LM Ql (Urine sed)None seen [LPF]0-8[facility] CenterLeukocytes [#/volume] corrected for nucleated erythrocytes in Blood by Automated coun Ordered By: Pancho Underwood on 14-59-4351FBF corrected for nucl RBC Auto (Bld) [#/Vol]8.7 10*3/uL3.8-11.6FRegency Hospital ToledoLymphocytes Auto (Bld) [#/Vol]Ordered By: Pancho Underwood on 86-17-8805Wappgenuigp (Bld) [#/Vol] 1.6 10*3/uL1.00-4.8[facility] Medical CenterLymphocytes/100 WBC Auto (Bld)Ordered By: Pancho Underwood on 02-66-2993Xhrhyvxrzfd/100 WBC (Bld)18.0 %. [facility] Medical CenterMCH Auto (RBC) [Entitic mass]Ordered By: Pancho Underwood on 93-58-6136ZYT (RBC) [Entitic mass]30.6 pg24.7-34.3FRegency Hospital ToledoMCHC Auto (RBC) [Mass/Vol]Ordered By: Pancho Underwood on 94-60-7518ALZF (RBC) [Mass/Vol]33.4 g/dL32.0-35.0[facility] CenterMCV Auto (RBC) [Entitic vol]Ordered By: Pancho Underwood on 23-74-4145AHU (RBC) [Entitic vol]91.6 jK89-808NyxhrzofqSouthview Medical CenterMonocytes Auto (Bld) [#/Vol]Ordered By: Pancho Underwood on 75-07-6432Inmdmjhtm (Bld) [#/Vol]0.7 10*3/uL0.0-0.8[facility] CenterMonocytes/100 WBC Auto (Bld) Ordered By: Pancho Underwood on 65-12-9435Nglpbigku/100 WBC (Bld)8.6 %.[facility] Medical CenterNeutrophils Auto (Bld) [#/Vol]Ordered By: Pancho Underwood on 74-91-2857Vwvcbafkvvh (Bld) [#/Vol]6.3 10*3/uL1.8-7.7FRegency Hospital ToledoNeutrophils/100 WBC Auto (Bld)Ordered By: Pancho Underwood on 08-75-0366Enbsulnbqyh/100 WBC (Bld)72.0 %.[facility] Nitrite Test strip Ql (U)Ordered By: Pancho Underwood on 24-64-5675Mmangai Ql (U) NegativeNegativeSouthview Medical CenterNo Panel InformationOrdered By: Pancho Underwood on 30-72-4106Wnenkytny GFR (CKD-EPI)58.078 mL/MinSouthview Medical CenterPharmacy Creatinine Clearance (ChemN/AFRegency Hospital ToledoNucleated erythrocytes [Presence] in Blood by Automated count Ordered By: Pancho Underwood on 87-22-1034Pyegadrxh RBC Auto Ql (Bld)0.1 /100{WBC} 0-0.5FRegency Hospital ToledoPlatelet mean volume Auto (Bld) [Entitic vol]Ordered By: Pancho Underwood on 26-88-7580Nbbogqbk mean volume (Bld) [Entitic vol]8.3 fL6.3-10.7FRegency Hospital ToledoPlatelets Auto (Bld) [#/Vol] Ordered By: Pancho Underwood on 94-45-7020Ekrsayyus (Bld) [#/Vol]268 10*3/uL 150-450[facility] Medical CenterPotassium [Moles/volume] in Serum or PlasmaOrdered By: Pancho Underwood on 39-50-2077Jmhdudjsf [Moles/Vol]4.0 mmol/L 3.5-5.1FRegency Hospital ToledoProtein Auto test strip (U) [Mass/Vol] Ordered By: Pancho Underwood on 01-98-2682Hiutwmp (U) [Mass/Vol]NegativeNegative [facility] CenterProtein [Mass/volume] in Serum or PlasmaOrdered By: Pancho Underwood on 15-26-7895Fpwvokk [Mass/Vol]7.0 g/dL6.4-8.9[facility] CenterRBC Auto (Bld) [#/Vol]Ordered By: Pancho Underwood on 38-21-9014BCG (Bld) [#/Vol]4.44 10*6/uL3.60-5.00Wilson Healtherum or plasma albumin/globulin mass ratioOrdered By: Pancho Underwood on 16-80-3308Vfanfqg/Globulin [Mass ratio]1.6 {ratio}Wilson Healtherum or plasma anion gap determinationOrdered By: Pancho Underwood on 32-58-4460Swybd gap [Moles/Vol]12.1 mmol/L6.0-15.0Wilson Healthodium [Moles/volume] in Serum or PlasmaOrdered By: Pancho Underwood on 27-91-8314Ieujxy [Moles/Vol]137 mmol/Y524-723PgyaykoytSouthview Medical Center Specific gravity Auto test strip (U) [Rel density]Ordered By: Pancho Underwood on 30-26-2166Tzmrwlth gravity (U) [Rel density]1.0111.001-1.030Wilson Healthquamous epithelial cells detection in urine sediment by light microscopyOrdered By: Pancho Underwood on 61-97-7721Ukpllqqmii cells.squamous LM Ql (Urine sed)None seen [HPF]0-2FRegency Hospital ToledoUrea nitrogen [Mass/volume] in Serum or PlasmaOrdered By: Pancho Underwood on 55-93-7685Yhvd nitrogen [Mass/Vol]14 mg/dL7-25[facility] CenterUrine bacteria detection by automated methodOrdered By: Pancho Underwood on 63-43-2147Nhdgndbe Auto Ql (U)None seenNone SeenSouthview Medical CenterUrine clarity by refractometry automatedOrdered By: Pancho Underwood on 97-10-9307Anjmgey Refractometry automated (U)ClearClearFRegency Hospital ToledoUrine glucose measurement by automated test strip (mass/volume)Ordered By: Pancho Underwood on 09-37-2546Egzxkpr Auto test strip (U) [Mass/Vol]Normal mg/dLNoMansfield HospitalUrine hemoglobin detection by automated test stripOrdered By: Pancho Underwood on 27-34-7728Yjsppxoalu Auto test strip Ql (U)2+ NegativeSouthview Medical CenterUrine leukocyte esterase detection by automated test stripOrdered By: Pancho Underwood on 91-92-1170Iguiszklm esterase Auto test strip Ql (U)NegativeNegativeSouthview Medical Center Urobilinogen Auto test strip (U) [Mass/Vol]Ordered By: Pancho Underwood on 55-01-2367Orcpodlgcynt (U) [Mass/Vol]Normal mg/dLLima City HospitalWBC Auto (Bld) [#/Vol]Ordered By: Pancho Underwood on 34-65-3537PGK (Bld) [#/Vol]8.7 10*3/uL3.8-11.6FRegency Hospital ToledopH Auto test strip (U)Ordered By: Pancho Underwood on 90-85-8220lB (U)6.0 [pH]5.0-9.0[facility] CenterAmbulatory Visit Summaryon 94-40-0032Soxaxznsan Visit Summary NOEMI BRAND :1960 Visit Date:09/28/2023 [...] ANDRE MCNEIL PA-C Where: [facility] Urineon 46-73-8224Iojjccxx identified Cx Nom (U) Microbiology PROCEDURE: Urine [...] Locations R1: This test was performed at: [facility], [address] [place] [address], [id number]- , , CxrsxbUrnomnMetroHealth Main Campus Medical CenterComment on above:Performed By: #### [id number] #### [facility] [address] [place] [address]Prrcvyboag Visit Summaryon 69-07-5310Fattbmxsid Visit Summary NOEMI BRAND :1960 Visit Date:09/24/2023 Ambulatory Visit Instructions Your Diagnosis Chronic lower urinary tract infection Tests Performed Urnls Dip Stick Auto w/o Microscopy POC 14015 Your Care Team Attending Physician - ANDRE [...] ANDRE MCNEIL PA-C [facility] Reporton 19-79-5767LTA - CT Report [id number]#1.00TIFFMetroHealth Main Campus Medical CenterC Urineon 81-98-8535Jvjbmbcd identified Cx Nom (U)Microbiology PROCEDURE: Urine Culture [R1] SOURCE: U CleanCatch BODY SITE: COLLECTED DATE/TIME: 09/14/2023 15:40 EST RECEIVED DATE/TIME: 09/14/2023 17:48 EST START DATE/TIME: 09/14/2023 17:48 EST FREE TEXT SOURCE: ANDRE MCNEIL PA-C, PA-C, JENNIFER E FINAL REPORTS Final Report [] Verified Date/Time: 09/16/2023 06:57 EST 5,000 cfu/ml Mixed skin contaminants Performing Locations R1: This test was performed at: [facility], [address] [place] [address], [facility] , , QiwgapQgajbuMetroHealth Main Campus Medical CenterComment on above:Performed By: #### [id number] #### [facility] [address] [place], [place] [id number] Visit Summaryon 25-18-2751Glfzrknoxh Visit Summary NOEMI BRAND :1960 Visit Date:09/14/2023 Ambulatory Visit Instructions Your Diagnosis Feeling of incomplete bladder emptying Tests Performed Urnls Dip Stick Auto w/o Microscopy POC [address] Your Care Team Attending Physician - ANDRE [...] ANDRE MCNEIL PA-C Where[facility] HospitalAlanine aminotransferase [Enzymatic activity/volume] in Serum or PlasmaOrdered By: Pancho Underwood on 48-50-8054KAA [Catalytic activity/Vol]20 U/L7-52[facility] CenterAlbumin [Mass/volume] in Serum or Plasma by Bromocresol green (BCG) dye binding methoOrdered By: Pancho Underwood on 13-68-2965Qadueko BCG dye [Mass/Vol]4.1 g/dL3.5-5.7FRegency Hospital ToledoAlkaline phosphatase [Enzymatic activity/volume] in Serum or PlasmaOrdered By: Pancho Underwood on 58-76-1629TXD [Catalytic activity/Vol]88 U/L 34-104[facility] CenterAspartate aminotransferase [Enzymatic activity/volume] in Serum or PlasmaOrdered By: Pancho Underwood on 76-67-7593FKR [Catalytic activity/Vol]16 U/H08-47PxobsputiSouthview Medical CenterAutomated epithelial cells count in urine sediment (number/area)Ordered By: Pancho Underwood on 88-20-1196Bhvfiuoyxy cells Auto (Urine sed) [#/Area]1-2 [HPF]0-2FRegency Hospital ToledoAutomated erythrocytes count in urine sediment (number/area)Ordered By: Pancho Underwood on 16-07-4564VOQ Auto (Urine sed) [#/Area]0-1 [HPF]0-4FRegency Hospital ToledoAutomated leukocytes count in urine sediment (number/area)Ordered By: Pancho Underwood on 36-99-7195FBB Auto (Urine sed) [#/Area]1-2 [HPF]0-4FRegency Hospital ToledoAutomated urine hyaline casts count (number/volume)Ordered By: Pancho Underwood on 03-19-2023 Hyaline casts Auto (U) [#/Vol]None seen [LPF]0-1FRegency Hospital ToledoBasophils Auto (Bld) [#/Vol]Ordered By: Pancho Underwood on 03-19-2023 Basophils (Bld) [#/Vol]0.0 10*3/uL0.0-0.2FRegency Hospital Toledo Basophils/100 WBC Auto (Bld)Ordered By: Pancho Underwood on 03-19-2023 Basophils/100 WBC (Bld)0.6 %.[facility] Medical CenterBilirubin Test strip Ql (U)Ordered By: Pancho Underwood on 40-96-5377Sieyykgho Ql (U)Negative NegativeSouthview Medical CenterBilirubin.total [Mass/volume] in Serum or PlasmaOrdered By: Pancho Underwood on 83-06-3329Ovxdiqhdo [Mass/Vol]0.3 mg/dL 0.3-1.0[facility] CenterCalcium [Mass/volume] in Serum or Plasma Ordered By: Pancho Underwood on 28-40-6414Fgjbrfy [Mass/Vol]9.1 mg/dL8.6-10.3 [facility] CenterCarbon dioxide, total [Moles/volume] in Serum or PlasmaOrdered By: Pancoh Underwood on 09-03-5183PR0 [Moles/Vol]28.5 mmol/L 21.0-31.0[facility] CenterChloride [Moles/volume] in Serum or PlasmaOrdered By: Pancho Underwood on 89-58-6365Hpznnkct [Moles/Vol]104 mmol/L 98-107[facility] CenterColor Auto (U)Ordered By: Pancho Underwood on 52-46-4053Htrgq (U)YellowYellowSouthview Medical CenterCreatinine [Mass/volume] in Serum or PlasmaOrdered By: Pancho Underwood on 03-19-2023 Creatinine [Mass/Vol]1.02 mg/dL0.60-1.20[facility] Eosinophils Auto (Bld) [#/Vol]Ordered By: Pancho Underwood on 03-19-2023 Eosinophils (Bld) [#/Vol]0.1 10*3/uL0.0-0.45[facility] Eosinophils/100 WBC Auto (Bld)Ordered By: Pancho Underwood on 03-19-2023 Eosinophils/100 WBC (Bld)1.5 %.[facility] CenterErythrocyte distribution width Auto (RBC) [Ratio]Ordered By: Pancho Underwood on 03-19-2023 Erythrocyte distribution width (RBC) [Ratio]14.8 %11.9-15.3FRegency Hospital ToledoErythrocyte sedimentation rate by Photometric methodOrdered By: Pancho Underwood on [id number] Photometric method (Bld) [Velocity]21 mm/hr0-29 [facility] CenterGlobulin Calc (S) [Mass/Vol]Ordered By: Pancho Underwood on 82-81-8841Fxegsdia (S) [Mass/Vol]2.5 g/dLSouthview Medical CenterGlucose [Mass/volume] in Serum or PlasmaOrdered By: Pancho Underwood on 83-76-0555Wajhoxc [Mass/Vol]100 mg/pW21-630AbrtxntheSouthview Medical Center Comment on above:ADA recommended reference rangeRandom Glucose Reference Range is dependent on time and content of last meal. Glucose of more than 200 mg/dL in a nonstressed, ambulatory subject supports the diagnosisof Diabetes Mellitus. Hematocrit Auto (Bld) [Volume fraction]Ordered By: Pancho Underwood on 03-19-2023 Hematocrit (Bld) [Volume fraction]39.2 %34.0-46.4FRegency Hospital ToledoHemoglobin [Mass/volume] in BloodOrdered By: Pancho Underwood on 03-19-2023 Hemoglobin (Bld) [Mass/Vol]12.9 g/dL11.8-15.4FRegency Hospital Toledo Ketones Auto test strip (U) [Mass/Vol]Ordered By: Pancho Underwood on 03-19-2023 Ketones (U) [Mass/Vol]NegativeNegativeSouthview Medical Center Leukocytes [#/volume] corrected for nucleated erythrocytes in Blood by Automated counOrdered By: Pancho Underwood on 78-54-3776EEG corrected for nucl RBC Auto (Bld) [#/Vol]7.7 10*3/uL3.8-11.6FRegency Hospital ToledoLymphocytes Auto (Bld) [#/Vol]Ordered By: Pancho Underwood on 02-47-4310Kmnuwhyinyr (Bld) [#/Vol]1.8 10*3/uL1.00-4.8[facility] Medical CenterLymphocytes/100 WBC Auto (Bld)Ordered By: Pancho Underwood on 75-06-7841Mwmmxmfyugd/100 WBC (Bld)23.7 %.[facility] Medical CenterMCH Auto (RBC) [Entitic mass]Ordered By: Pancho Underwood on 85-48-2439GGB (RBC) [Entitic mass]29.7 pg24.7-34.3FRegency Hospital ToledoMCHC Auto (RBC) [Mass/Vol]Ordered By: Pancho Underwood on 38-03-8378GBVW (RBC) [Mass/Vol]32.8 g/dL32.0-35.0[facility] CenterMCV Auto (RBC) [Entitic vol]Ordered By: Pancho Underwood on 05-15-0247DBQ (RBC) [Entitic vol]90.5 cN55-545OdatzutdzSouthview Medical CenterMonocytes Auto (Bld) [#/Vol]Ordered By: Pancho Underwood on 94-28-8622Kjglbthoy (Bld) [#/Vol]0.8 10*3/uL0.0-0.8[facility] CenterMonocytes/100 WBC Auto (Bld) Ordered By: Pancho Underwood on 55-87-9041Zhhsglzav/100 WBC (Bld)10.1 %.[facility] Medical CenterNeutrophils Auto (Bld) [#/Vol]Ordered By: Pancho Underwood on 76-78-9134Xhcnnyereqt (Bld) [#/Vol]4.9 10*3/uL1.8-7.7FRegency Hospital ToledoNeutrophils/100 WBC Auto (Bld)Ordered By: Pancho Underwood on 08-68-1658Cqgxqizahnh/100 WBC (Bld)64.1 %.[facility] Nitrite Test strip Ql (U)Ordered By: Pancho Underwood on 50-42-2112Utuqcnu Ql (U) NegativeNegativeSouthview Medical CenterNo Panel InformationOrdered By: Pancho Underwood on 93-65-0580Jnoyrqjiz GFR (CKD-EPI)> 60.0 mL/MinSouthview Medical CenterPharmacy Creatinine Clearance (ChemN/AFRegency Hospital ToledoNucleated erythrocytes [Presence] in Blood by Automated count Ordered By: Pancho Underwood on 44-22-1884Njplqdsnv RBC Auto Ql (Bld)0.1 /100{WBC} 0-0.5FRegency Hospital ToledoPlatelet mean volume Auto (Bld) [Entitic vol]Ordered By: Pancho Underwood on 99-10-7729Qiqpwpgw mean volume (Bld) [Entitic vol]8.5 fL6.3-10.7FRegency Hospital ToledoPlatelets Auto (Bld) [#/Vol] Ordered By: Pancho Underwood on 72-74-9092Xdngjpumy (Bld) [#/Vol]251 10*3/uL 150-450South[facility] CenterPotassium [Moles/volume] in Serum or PlasmaOrdered By: Pancho Underwood on 18-44-6864Afmjxufex [Moles/Vol]4.0 mmol/L 3.5-5.1FRegency Hospital ToledoProtein Auto test strip (U) [Mass/Vol] Ordered By: Pancho Underwood on 20-96-1778Idxkfds (U) [Mass/Vol]NegativeNegative [facility] CenterProtein [Mass/volume] in Serum or PlasmaOrdered By: Pancho Underwood on 22-47-5410Ijbotlz [Mass/Vol]6.6 g/dL6.4-8.9[facility] CenterRBC Auto (Bld) [#/Vol]Ordered By: Pancho Underwood on 02-58-8243DIN (Bld) [#/Vol]4.33 10*6/uL3.60-5.00Wilson Healtherum or plasma albumin/globulin mass ratioOrdered By: Pancho Underwood on 18-94-5153Drojjjy/Globulin [Mass ratio]1.6 {ratio}Wilson Healtherum or plasma anion gap determinationOrdered By: Pancho Underwood on 65-70-0032Hjqoi gap [Moles/Vol]10.5 mmol/L6.0-15.0Wilson Healthodium [Moles/volume] in Serum or PlasmaOrdered By: Pancho Underwood on 10-17-8638Ntlriy [Moles/Vol]139 mmol/Z027-131WbaisszidSouthview Medical Center Specific gravity Auto test strip (U) [Rel density]Ordered By: Pancho Underwood on 32-21-4027Gbbhqdgb gravity (U) [Rel density]1.0061.001-1.030[facility] CenterUrea nitrogen [Mass/volume] in Serum or PlasmaOrdered By: Pancho Underwood on 70-00-0647Qtrz nitrogen [Mass/Vol]16 mg/dL7-25[facility] CenterUrine bacteria detection by automated methodOrdered By: Pancho Underwood on 78-19-6139Blkipknb Auto Ql (U)None seenNone SeenSouthview Medical CenterUrine clarity by refractometry automatedOrdered By: Pancho Underwood on 20-20-6362Bmwrzmb Refractometry automated (U)ClearClearFRegency Hospital ToledoUrine glucose measurement by automated test strip (mass/volume) Ordered By: Pancho Underwood on 82-20-9961Qppjros Auto test strip (U) [Mass/Vol] Normal mg/dLNoMercy Health St. Anne HospitalUrine hemoglobin detection by automated test stripOrdered By: Pancho Underwood on 75-49-6927Iurpjolalt Auto test strip Ql (U)NegativeNegBarberton Citizens HospitalUrine leukocyte esterase detection by automated test stripOrdered By: Pancho Underwood on 40-73-5034Jvkkxjjtb esterase Auto test strip Ql (U)NegativeNegBarberton Citizens HospitalUrobilinogen Auto test strip (U) [Mass/Vol]Ordered By: Pancho Underwood on 23-75-7639Geoyndapttws (U) [Mass/Vol]Normal mg/dLCleveland Clinic Euclid HospitalWBC Auto (Bld) [#/Vol]Ordered By: Pancho Underwood on 17-95-2309OIJ (Bld) [#/Vol]7.7 10*3/uL3.8-11.6FRegency Hospital ToledopH Auto test strip (U)Ordered By: Pancho Underwood on 51-95-1717yJ (U)6.0 [pH]5.0-9.0[facility] CenterXR KUB 1 VIEWon 99-52-9993SR KUB 1 VIEWEXAMINATION: XR KUB 1 VIEW [...] overlying bowel content. Electronically authenticated by: YESENIA BALCK Date: 2022-08-07 10:44NoMcKitrick HospitalOG PANEL 2: 30 to 65on 06-23-2022..NormalThe Wilson Street HospitalComment on above:Result Comment: Performed at: WBPerformed By: #### [id number] #### [facility] [address] [place] [address] Dr. Barry SanchezAge Gdln ACOG Rkarfol53-04NhcnkcFbsOhioHealth O'Bleness HospitalComment on above:Performed By: #### [id number] #### [facility] [address] [address] [address] Barry SanchezDIAGNOSIS:CommentBlanchard Valley Health System [facility] on above: Result Comment: NEGATIVE FOR INTRAEPITHELIAL LESION OR MALIGNANCY. CELLULAR CHANGES ASSOCIATED WITH ATROPHY ARE PRESENT. Performed at: WBPerformed By: #### [id number] #### [facility] [address] [place] [address] Dr. Barry SanchezHPV AptimaNegativeNormalNegativeMagruder Memorial HospitalComhenry ford wy[facility] hospital on above:Result Comment: This nucleic acid amplification test detects fourteen high-risk HPV types (16,18,31,33,35,39,45,51,52,56,58,59,66,68) without differentiation. Performed at: =GPerformed By: #### [id number] #### [facility] [address] [place] [address] Dr. Barry SanchezMethodology:CommentBlanchard Valley Health System [facility] on above: Result Comment: This liquid based ThinPrep(R) pap test was screened with the use of an image guided system. Performed at: WBPerformed By: #### [id number] #### [facility] [address] [place] [address] Dr. Barry SanchezNote:CommentBlanchard Valley Health System [facility] on above:Result Comment: The Pap smear is a screening test designed to aid in the detection of premalignant and malignant conditions of the uterine cervix. It is not a diagnostic procedure and should not be used as the sole means of detecting cervical cancer. Both false-positive and false-negative reports do occur. . Performed at: WBPerformed By: #### [id number] #### [facility] [address] [address] [address] Barry SanchezPerformed by:CommentBlanchard Valley Health System [facility] on above: Result Comment: Kya Rabago, Galley Hand (ASCP) Performed at: [facility] Centerformed By: #### [id number] #### [facility] [address] [address] [address] Barry SanchezSpecimen adequacy:CommentBlanchard Valley Health System [facility] on above:Result Comment: Satisfactory for evaluation. Endocervical and/or squamous metaplastic cells (endocervical component) are present. Performed at: WBPerformed By: #### [id number] #### [facility] [address] [address] [address] Barry SanchezMG MAMM SCREEN 3D TERENCE CADon 70-59-1990YI MAMM SCREEN 3D TERENCE CAD Patient: NOEMI BRAND Exam Date: 06/05/2022 : 1960 Gender:F Ordering : DR KOBI LATHAM . Admission #: [id number] Family : DR ALEXANDER CHEN Order #: [id number] CLICK HERE TO VIEW EXAM RADIOLOGY REPORT [...] thyroid cancer at age 53. LOCATION: [facility] BREAST COMPOSITION: Scattered areas fibroglandular density. [...] by: Laney Rabago MD on 06/05/2022 at 10:39[facility] TSH+FREE T4on 64-44-0842Hcjk T4 [Mass/Vol]1.4 ng/dLNormal0.8-1.8Quest DiagnosticsComment on above:Performed By: #### [id number] #### [facility] [address], [address] [place] [address] Rand Butting Machine Operator: José Miguel Mata MDTS Qn1.36 m[IU]/LNormal0.40-4.50Quest DiagnosticsComment on above:Performed By: #### [id number] #### [facility] [address] [place] [address] Rand Butting Machine Operator: José Miguel Mata MDLipid Profileon 20-48-9029Uuuwgbtombj [Mass/Vol]158 mg/dLNormal<200Ashtabula County Medical CenterComment on above:Result Comment: Cholesterol Guidelines: <200 Desirable 200-240 Borderline >240 UndesirablePerformed By: #### LIPR #### [employer] [address] [place] [address] [id number] Forest Fire Fighter: QUANG Soniholesterol in HDL [Mass/Vol]46 mg/dLNormal>40 [facility] CenterComhenry ford wy[facility] hospital on above:Result Comment: HDL Guidelines: <40 Undesirable 40-59 Borderline >59 DesirablePerformed By: #### LIPR #### [employer] [facility] [place], [place] [id number] Forest Fire Fighter: QUANG Soniholesterol in LDL [Mass/Vol]74 mg/dLNormal0-130 [facility] CenterComhenry ford wy[facility] hospital on above:Result Comment: LDL Guidelines: <100 Desirable 100-129 Near to/above Desirable 130-159 Borderline >159 Undesirable Direct (measured) LDL and calculated LDL are not interchangeable tests.Performed By: #### LIPR #### [employer] [address] [place], [place] [id number] Forest Fire Fighter: Anselmo Sonistraissa.total/Cholesterol in HDL [Mass ratio]3.4 {ratio}Normal<5Mer[facility] Rush HospitalComment on above:Performed By: #### LIPR #### [employer] [address] [place], [place] [id number] Forest Fire Fighter: Jose Parikh MDTriglyceride [Mass/Vol]191 mg/dLHigh<150MerMount Carmel Health System HospitalComment on above:Result Comment: Triglyceride Guidelines: <150 Desirable 150-199 Borderline 200-499 High >499 Very high Based on AHA Guidelines for fasting triglyceride, June 2012.Performed By: #### LIPR #### [employer] [address] [place] [address] Forest Fire Fighter: KYLE Soni FLUOROSCOPY GREATER THAN ONE HOURon 02-27-7122DG FLUOROSCOPY GREATER THAN ONE HOURThis is an auto finalized result. Please refer to patient chart for further information. information. information.NormalDublin Rastafari HospitalComment on above:Order Comment: Reason for exam?:Degenerative joint disease (DJD) of hipInjury/Trauma or Illness?:Illness/OtherHow long have you had these symptoms (acute/chronic)?:ChronicType of Exam?:OngoingAdditional signs and symptoms?:n/aFluoro time in minutes:.22Fluoro dose in mGy?:2.14XR OR HIP RIGHT 1 VIEWon 35-17-7952OR OR HIP RIGHT 1 VIEWEXAMINATION:XR OR HIP [...] full details please see the dictated operative report.[facility]/gesWorkstation ID: [id number] by: DREA BEAR on WedAug 30, 2018 11:11:02 AM ESTTranscribed by: MARTY JONES on WedAug 30, 2018 11:11:37 AM ESTFinalized by: DREA BEAR on WedAug 30, 2018 4:41:51 PM [facility] HospitalComment on above:Order Comment: Reason for exam?:Degenerative joint disease (DJD) of hipInjury/Trauma or Illness?:Illness/OtherHow long have you had these symptoms (acute/chronic)?:ChronicType of Exam?:OngoingAdditional signs and symptoms?:n/aFluoro time in minutes:.22Fluoro dose in mGy?:2.14XR CERVICAL SPINE WITH FLEXION AND EXTENSION 6+ VIEWSon 46-96-1704UM CERVICAL SPINE WITH FLEXION AND EXTENSION 6+ [...] throughout the study, limiting assessment of that level.[facility]/hbWorkstation ID: [id number] by: SANTOS ANDERSON on WedAug 17, 2018 8:54:40 AM ESTTranscribed by: JILLIAN BETTENCOURT on WedAug 17, 2018 9:00:00 AM ESTFinalized by: SANTOS ANDERSON on WedAug 17, 2018 12:24:05PM [facility] HospitalComment on above:Order Comment: Reason for exam?:patInjury/Trauma or Illness?:Illness/OtherHow long have you had these symptoms (acute/chronic)?:AcuteHistory of cancer?:noSurgeries, chemotherapy, or radiation?:neck sxType of Exam?:InitialAdditional signs and symptoms?:hip Sx schedule, no complaints to neckBasic Metabolic Panelon 61-59-2812Djmqx gap14 mmol/LInvalid Interpretation Code10 - 20 mmol/LDMH LABBicarbonate (HCO3)31 mmol/LInvalid Interpretation Code 21 - 32 mmol/LDMH LABBUN/Creatinine Ratio18.6 mg/mgInvalid Interpretation Code 10.0 - 20.0DMH LABCalcium9.3 mg/dLInvalid Interpretation Code8.4 - 10.2 mg/dLD DBGVsknskio88 mmol/LLow98 - 108 mmol/LDMH LABCreatinine1.29 mg/dLHigh0.4 - 1.1 mg/dLDMH LABeGFR (non-black)46 mL/min/{1.73_m2}Low>=60DMH LABeGFR (non-black)The eGFR should be used for monitoring renal function only and not for medication dosing.Invalid Interpretation CodeD WMGWxquukl499 mg/sQLats26 - 99 mg/dLD LABPotassium5.3 mmol/LHigh3.5 - 5.1 mmol/LD KPKLonvnr075 mmol/LInvalid Interpretation Xikg836 - 145 mmol/LDMH LABUrea itnuisfx48 mg/dLInvalid Interpretation Code8 - 25 mg/dLD LABCBCon 82-27-0106Gchacaqhmasl (RBC)0.00 K/mcLInvalid Interpretation Code0.00 - 0.00DMH LABErythrocytes (RBC)3.86 M/mcL Low4.00 - 5.20DMH LABHematocrit (HCT)31.5 %Low36 - 46 %DMH LABHemoglobin (HGB) 9.4 g/dLLow12 - 16 g/dLD LABInterpretation and review of laboratory results AbnormalInvalid Interpretation CodeD FEMIDY14.4 pgLow26 - 34 pgDMH AWJBHQP98.8 g/dLLow31 - 37 g/dLD FBANUH37.6 fLInvalid Interpretation Code80 - 100 fLDMH LABNucleated erythrocytes/100 erythrocytes0.0 %Invalid Interpretation CodeD LABPlatelet mean volume (PMV)11.0 fLInvalid Interpretation Code9 - 15.5 fLDMH QUJSkxqglokk332 K/mcLInvalid Interpretation Lnek211 - 400DMH LABRDW-CA22.7 %High 11.6 - 14.8 %DM LABWBC (Leukocytes)9.87 K/mcLInvalid Interpretation Code4.50 - 11.00DMH LABPT/INRon 30-66-8260Wxgjlknnddq factor induced.INR assay in platelet poor plasma1.2 {INR}High0.8 - 1.1DMH LABCoagulation tissue factor induced in platelet poor fpumaw74.3 sHigh11.8 - 14.3DMH LABINR in blood by coagulation During the induction phase of oral anticoagulation, the INR may not reflect the anticoagulation status of the patient. Therapeutic ranges for INR's are: Most clinical situations: INR 2.0-3.0 Mechanical Prosthetic Valve: INR 2.5-3.5 Critical: INR >5.0Invalid Interpretation CodeD LABBasic Metabolic Panelon 75-28-1932Vyhnx gap16 mmol/LInvalid Interpretation Code10 - 20 mmol/LD LAB Bicarbonate (HCO3)30 mmol/LInvalid Interpretation Code21 - 32 mmol/LDMH LAB BUN/Creatinine Ratio16.2 mg/mgInvalid Interpretation Code10.0 - 20.0DMH LAB Calcium9.5 mg/dLInvalid Interpretation Code8.4 - 10.2 mg/dLDMH DPCVwzfkftl08 mmol/LInvalid Interpretation Code98 - 108 mmol/LDMH LABCreatinine0.74 mg/dL Invalid Interpretation Code0.4 - 1.1 mg/dLDMH LABeGFR (non-black)91 mL/min/{1.73_m2}Invalid Interpretation Code>=60DMH LABeGFR (non-black)The eGFR should be used for monitoring renal function only and not for medication dosing. Invalid Interpretation CodeD YCLAifmzio785 mg/iOQtpv65 - 99 mg/dLDMH LAB Interpretation and review of laboratory resultsAbnormalInvalid Interpretation CodeD LABPotassium4.8 mmol/LInvalid Interpretation Code3.5 - 5.1 mmol/LDMH LAB Ncwkuc768 mmol/LInvalid Interpretation Doxl765 - 145 mmol/LD LABUrea nitrogen 12 mg/dLInvalid Interpretation Code8 - 25 mg/[facility] LABCBCon 11-10-2017 Erythrocytes (RBC)0.00 K/mcLInvalid Interpretation Code0.00 - 0.00DMH LAB Erythrocytes (RBC)4.35 M/mcLInvalid Interpretation Code4.00 - 5.20DMH LAB Hematocrit (HCT)35.3 %Low36 - 46 %DM LABHemoglobin (HGB)10.9 g/dLLow12 - 16 g/[facility] LABInterpretation and review of laboratory resultsAbnormalInvalid Interpretation [facility] OUCYOI55.1 pgLow26 - 34 pgDM TZXLRGZ10.9 g/dLLow31 - 37 g/[facility] MDKQZE53.1 fLInvalid Interpretation Code80 - 100 fLMIDDLETOWN STATE HOSPITAL LABNucleated erythrocytes/100 erythrocytes0.0 %Invalid Interpretation [facility] LABPlatelet mean volume (PMV)11.1 fLInvalid Interpretation Code9 - 15.5 fLMIDDLETOWN STATE HOSPITAL LABPlatelets 251 K/mcLInvalid Interpretation Kikx421 - 400DMH LABRDW-CA22.0 %High11.6 - 14.8 %DM LABWBC (Leukocytes)15.05 K/mcLHigh4.50 - 11.00DMH LABPT/INRon 11-10-2017 Coagulation factor induced.INR assay in platelet poor plasma1.1 {INR}Invalid Interpretation Code0.8 - 1.1DMH LABCoagulation tissue factor induced in platelet poor lzsafb25.8 sInvalid Interpretation Code11.8 - 14.3DMH LABINR in blood by coagulationDuring the induction phase of oral anticoagulation, the INR may not reflect the anticoagulation status of the patient. Therapeutic ranges for INR's are: Most clinical situations: INR 2.0-3.0 Mechanical Prosthetic Valve: INR 2.5- 3.5 Critical: INR >5.0Invalid Interpretation CodeD LABInterpretation and review of laboratory resultsNormalInvalid Interpretation [facility] LABFluoroscopy Greater Than 1 Houron 46-14-0539Cioqkobknem Greater Than 1 HourThis is an auto finalized result. Please refer to patient chart for further information.Invalid Interpretation CodeFUJI [facility] OHIOPT/INRon 26-74-7861Nixgwmbsbwv factor induced.INR assay in platelet poor plasma1.1 [...] laboratory resultsNormalInvalid Interpretation CodeD LABType and Screenon 48-45-2813OCM+Rh groupPositiveInvalid Interpretation CodeD TRANSFUSION SERVICESBlood group antibody presenceNegativeInvalid Interpretation CodeD TRANSFUSION SERVICESSpecimen Jmmbzgy1911/12/2017 23:59 ESTInvalid Interpretation CodeD TRANSFUSION SERVICESXR FLUOROSCOPY GREATER THAN ONE HOURon 76-35-2240MY FLUOROSCOPY GREATER THAN ONE HOURThis is an auto finalized result. Please refer to patient chart for further information. information. information.NormalDuHCA Houston Healthcare TomballComment on above:Order Comment: Reason for exam?:hip painInjury/Trauma or Illness?:Illness/OtherHow long have you had these symptoms (acute/chronic)?:ChronicType of Exam?:OngoingAdditional signs and symptoms?:n/aFluoro time in minutes:.2Fluoro dose in mGy?:1.04XR OR HIP LEFT 1 VIEWon 27-43-9042YL OR HIP LEFT 1 VIEWEXAMINATION:XR OR HIP [...] Alignment appears to be near anatomic.SYJ/gesWorkstation ID: [id number] by: KYREE GARRIDO on WedNov 09, 2017 9:33:10 AM ESTTranscribed by: MARTY JONES on WedNov 09, 2017 10:07:06 AM ESTFinalized by: KYREE GARRIDO on WedNov 09, 2017 4:03:19 PM EST NormalDuWright-Patterson Medical Center HospitalComment on above:Order Comment: Reason for exam?:hip painInjury/Trauma or Illness?:Illness/OtherHow long have you had these symptoms (acute/chronic)?:ChronicType of Exam?:OngoingAdditional signs and symptoms?:n/aFluoro time in minutes:.2Fluoro dose in mGy?:1.04XR OR Hip Left 1 Viewon 92-57-1194MQ OR Hip Left 1 ViewInterface, Rad In [facility] - 11/09/2017 4:06 PM EST EXAMINATION: XR OR HIP LEFT 1 VIEW HISTORY:ORDERING SYSTEM PROVIDED HISTORY: surgery, TECHNOLOGIST PROVIDED HISTORY: Reason for exam: hip painIllness/Other Encounter Type: Ongoing Additional signs and symptoms: n/a Fluoro dose in mGy: 1.04 ORDERING SYSTEM PROVIDED DIAGNOSIS CODES: COMPARISON: Bilateral hip examination from 12/24/2016 performed at [facility]. FLUOROSCOPY TIME: Fluoro Dose Ka,r mGy: Fluoro dose in Ka,r mGy: 1.04 0.2 minutes FINDINGS: Single fluoroscopic image of the left hip is submitted demonstrating postoperative changes of left hip arthroplasty. The acetabular and femoral components visualized on the single fluoroscopic image are well seated. Inferior portion of the femoral component is excluded. Alignment appears to be near anatomic. Jobyal Workstation ID: [id number] Interpretation Code FUJI [facility] CENTERXR OR Hip Left 1 ViewEXAMINATION: XR OR HIP LEFT 1 VIEW HISTORY: ORDERING SYSTEM PROVIDED HISTORY: surgery, TECHNOLOGISTPROVIDED HISTORY: Reason for exam: hip pain Illness/Other Encounter Type: Ongoing Additional signs and symptoms: n/a Fluoro dose in mGy: 1.04 ORDERING SYSTEM PROVIDED DIAGNOSIS CODES: COMPARISON: Bilateral hip examination from 12/24/2016 performed at [facility]. FLUOROSCOPY TIME: Fluoro Dose Ka,r mGy: Fluoro dose in Ka,r mGy: 1.04 0.2 minutes FINDINGS: Single fluoroscopic image of the left hip is submitted demonstrating postoperative changes of left hip arthroplasty. The acetabular and femoral components visualized on the single fluoroscopic image are well seated. Inferior portion of the femoral component is excluded. Alignment appears to be near anatomic. [employer] Workstation ID: [id number] Invalid Interpretation CodeFUJI SYNAPSE CENTRAL OHIOAPTTon 24-34-5885rPZB58 s Invalid Interpretation Code23 - 34DMH LABaPTTTherapeutic range for APTT's is 68 - 104 secondsInvalid Interpretation CodeD LABInterpretation and review of laboratory resultsNormalInvalid Interpretation CodeD LABAlbuminon 10-21-2017 Albumin4.5 g/dLInvalid Interpretation Code3.2 - 5.2 g/dLD LABPT/INRon 79-42-6578Sltdlsfweir factor induced.INR assay in platelet poor plasma1.3 [...] and review of laboratory results AbnormalInvalid Interpretation [facility] LABType and Screenon 81-99-2444OXR+Rh groupPositiveInvalid Interpretation CodeD TRANSFUSION SERVICESBlood group antibody presenceNegativeInvalid Interpretation [facility] TRANSFUSION SERVICES Specimen Qydnmfv1711/08/2017 23:59 ESTInvalid Interpretation [facility] TRANSFUSION SERVICESSCAN OTHER ORDERSon 99-74-7732CMVL OTHER ORDERSOrdered by an unspecified provider.Invalid Interpretation CodeOhioHealth Vital Signs Date TimeVital SignValuePerforming FepclgxdaCxmkdxfh76-50-6080 13:45-0400Body ayiycp603.1 cmJohn [employer] DO Work Phone: [facility]10-21-2025 13:45-0400Body mass index (BMI) [Ratio]34.28 kg/m2Jo [employer] DO Work Phone: [facility]10-21-2025 13:45-0400Body .44 kgAlexander Chen DO Work Phone: [facility]10-21-2025 13:45-0400Diastolic blood rapzkgeq38 mm[Hg]Alexander Chen DO Work Phone: [facility]10-21-2025 13:45-0400Systolic blood rxpdtucb104 mm[Hg]Alexander Chen DO Work Phone: [facility]10-21-2025 10:07-0400Body mass index (BMI) [Ratio]34.41 kg/w5XaibfKobi Munroeo DO Work Phone: [facility]fieldCzdeusyrwx05-67-3050 10:07-0400Body lfmuqa58.8 kg Kobi Munroeo DO Work Phone: [facility]fieldWehhewmypl07-31-4322 10:07-0400Diastolic blood lxrwinva39 mm[Hg]Kobi Munroeo DO Work Phone: [facility]fieldRomuggdvds30-37-9244 10:07-0400Systolic blood mm[Hg]Kobirich Munroeo DO Work Phone: [facility] springfieldOotepswhnb04-32-7874 11:19-0400Body ruuepl662.1 cmMauro Levin MD Work Phone: [facility] springfieldMecjczbedd39-52-6294 11:19-0400Body mass index (BMI) [Ratio]35.94 kg/y3UxkajajMauro Levin MD Work Phone: [facility] springfieldTtggbgyqsf04-78-3439 11:19-0400Body oizppb63.98 kgMauro Levin MD Work Phone: [facility] springfieldNmreglhogl56-73-6756 11:19-0400Diastolic blood nxubaysq10 mm[Hg]Mauro Levin MD Work Phone: [facility] springfieldCdqgcxeezg50-70-5890 11:19-0400Systolic blood mm[Hg]Mauro Levin MD Work Phone: [facility] springfieldOujxmjphbu85-39-4661 13:50-0400Body .6 cmZoe HU Work Phone: [facility]06-24-2025 13:50-0400Body mass index (BMI) [Ratio]34.86 kg/v0BmrtpZoe HU Work Phone: [facility] - [place]06-24-2025 13:50-0400Body zebojq46.98 kgZoe HU Work Phone: [facility] [place]05-19-2025 12:54-0400Body kovzea793.6 cmAlexander Yoos DO Work Phone: [facility] [place]05-19-2025 12:54-0400Body mass index (BMI) [Ratio]35.03 kg/m2Alexander Yucarls DO Work Phone: [facility] [place]05-19-2025 12:54-0400Body htnjkynpcrl13.4 [degF]Alexander Yoos DO Work Phone: [facility] [employer] Beofnp85-46-6399 12:54-0400Body xitukr55.39 kgAlexander Yoos DO Work Phone: [facility] [place]05-19-2025 12:54-0400Diastolic blood arktvngp75 mm[Hg]Alexander Yoos DO Work Phone: [facility] [place]05-19-2025 12:54-0400Heart rate 69 /minAlexander Yuhas DO Work Phone: [facility] [place] [employer] Ynnjdf80-20-4250 12:54-0400 Respiratory rate18 /minJoandrzej Yucarls DO Work Phone: [facility] [place]05-19-2025 12:54-3527GdV7% (BldA) [Mass fraction]98 %Alexander Yoos DO Work Phone: [facility] [place]05-19-2025 12:54-0400Systolic blood mm[Hg]Alexander Chen DO Work Phone: [facility] [place]05-05-2025 13:32-0400Body lgjdfu639.1 cmFeleni Shepherd ASSOCIATE QUALITY ENGINEER Work Phone: [facility]Paajlderrl73-05-5168 13:32-0400Body mass index (BMI) [Ratio]36.28 kg/c3AxucaviOlimpia Stanleychelseadamaris ASSOCIATE QUALITY ENGINEER Work Phone: [facility]fieldNwjigauxpv89-08-2020 13:32-0400Body xfosac86.88 kgFeleni Stanleychelseadamaris ASSOCIATE QUALITY ENGINEER Work Phone: [facility]fieldKkcrgzahgr32-52-5086 13:32-0400Diastolic blood mahydgvb75 mm[Hg]Olimpia Cora ASSOCIATE QUALITY ENGINEER Work Phone: [facility]fieldBndufosprq80-98-1644 13:32-0400Systolic blood jytpsiff371 mm[Hg]Olimpia Cora ASSOCIATE QUALITY ENGINEER Work Phone: [facility]fieldVpgrmddtia52-89-9051 10:31-0500Body oqrbzg489.1 cmMauro Levin MD Work Phone: [facility]fieldChxlolbfnz97-19-5715 10:31-0500Body mass index (BMI) [Ratio]35.28 kg/o8ZbmeykaMauro Levin MD Work Phone: [facility]fieldQjingzblco04-02-3557 10:31-0500Body jseftd22.16 kgMauro Levin MD Work Phone: [facility]fieldXvxwnnjgvm60-76-9867 11:08-0500Blood Pressure LocationANDRE MCNEIL [facility]12-17-2024 11:08-0500Body finkkkpawkg589.04 [degF]ANDRE MCNEIL [facility]12-17-2024 11:08-0500Diastolic blood vnssmkyh21 mm[Hg]ANDRE MCNEIL [facility]12-17-2024 11:08-0500Heart rate58 /minJENNIFER GERRY [facility]12-17-2024 11:08-0500Systolic blood mm[Hg]ANDRE GERRY [facility]10-14-2024 14:08-0400Body mass index (BMI) [Ratio]34.95 kg/z7Lymql Noa DO Work Phone: [facility]fieldZnauepgcib70-88-1077 14:08-0400Body toombv68.25 kgCorey Noa DO Work Phone: [facility]fieldBtutfujeom30-08-0529 14:08-0400Diastolic blood jxaiechc63 mm[Hg]Kobi Noa DO Work Phone: [facility]fieldYnnzxgklyw38-91-6572 14:08-0400Systolic blood hcxsohrs934 mm[Hg]Kobi Noa DO Work Phone: [facility]fieldLvooprprgl04-10-0370 12:58-0500Blood Pressure LocationJENNIFER GERRY [facility]12-13-2022 12:58-0500Diastolic blood dqyvycep38 mm[Hg]ANDRE GERRY [facility]12-13-2022 12:58-0500Heart rate77 /minJENNIFER GERRY [facility]12-13-2022 12:58-0500Respiratory rate16 /minJENNIFER GERRY [facility]12-13-2022 12:58-0500Systolic blood mm[Hg]ANDRE MCNEIL [facility]03-01-2018 07:27-0500Body Dztfmrztbfz66.9 [degF]Lina [facility] 11-11-2017 07:27-0500BP Gckbzvpip31 mm[Hg]Lina IhaubLxtyYramfq26-10-7695 07:27-0500BP Judqoxmp560 mm[Hg]Lina NvigxTzopFhhjor73-19-3574 07:27-0500Pulse (Heart Rate)57 /minLina IlwvfKdgpItwbcl74-76-5923 07:27-0500Pulse Lkoezgal52 % Lina ZsolrUdyeOmdabn14-01-4957 07:27-0500Respiratory Rate15 /minLina Elizabeth IiiuXosxzp51-24-0060 06:26-0500BMI (Body Mass Index)36.32 kg/d8Utgvvh [facility] CenterXzjyFmpunr05-18-9760 06:26-6385Vekeuu828.1 cmTbeacon behavioral hospitaljerome PujthKwfqQjidfa09-79-6581 06:26-5205Ozorbk74 kgeric GyvtcTimrPqbwhi49-36-0882 12:12-0500BMI (Body Mass Index)35.59 kg/o0Vrdyg [facility] Work Phone: 1(464) 615-501202-08-2018 12:12-0500Body Rgwwlojhjnx10.7 [degF]Rossana [facility] Work Phone: 1(668) 180-871002-08-2018 12:12-0500BP Xopdzjulu31 mm[Hg]Rossana [facility] Work Phone: 1(953) 336-970702-08-2018 12:12-0500BP Hllfxtvc779 mm[Hg]Rossana [facility] Work Phone: 1(557) 157-538402-08-2018 12:12-7791Wroias471.1 Abel [facility] Work Phone: 1(426) 506-443802-08-2018 12:12-0500Pulse (Heart Rate)88 /minRossana [facility] Work Phone: 1(237) 626-317902-08-2018 12:Pulse Ksiawqaa88 %Rossana Reid [facility] Work Phone: 1(328) 191-969902-08-2018 12:1702Hyjkxf34 kgRossana [facility] Work Phone: Encounters Encounter DateEncounter TypeCare ProviderFacilityStart: 42-71-3683lxkwpluxek ANDER E PERRYFacility:[place]vueStart: 07-20-2025 End: 76-09-3164wvpsvyffdkCEFFVX F KINDLFacility:[facility] HospitalStart: 07-19-2025 End: 31-20-6286cxgejqmjhcCNJGPEGHQ PHARMACY MEDICATION MANAGEMENTSelect Medical [facility] Rehabilitation Hospitaltart: 07-19-2025 End: 00-00-7924Bdeyml-up encounterPm[address] - Pharmacy Medication ManagementComment on above:CHCF (current) use of 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 (Primary Dx)Start: 07-17-2025 End: 52-98-7074InadkgKufh L Yuhas DO Work Phone: [facility] - Family MedicineComment on above:Cervical spondylosis with radiculopathyStart: 07-13-2025 End: 55-45-4992Cfrfgw-up encounterPm[address] - Pharmacy Medication ManagementComment on above:CHCF (current) use of 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 (Primary Dx)Start: 07-13-2025 End: 40-50-9997cyaxcwfoxyHXFHCJVTQ PHARMACY MEDICATION MANAGEMENTSelect Medical [facility]Health Rehabilitation Hospitaltart: 08-13-5284ywtqxioaovUltryxe Garett AuxierFacility:[facility] HospitalStart: 07-12-2025 End: 09-67-2421wfclwofzvcQogeoyg Garett AuxierFacility:[facility] HospitalStart: 07-12-2025 End: 25-26-9997akqvpljntkOnsikyu [place] CAFETERIA COOK-CNPFacility:PM [facility] Hospitaltart: 07-09-2025 End: 31-91-7909IakwcwHfvd L Yuhas DO Work Phone: [facility] - Family MedicineComment on above:Hypothyroidism, unspecified typeStart: 07-03-2025 End: 84-63-7095Prwpwf flowsheetCorey Noa DO Work Phone: [facility]oms [place] OBGYNStart: 07-03-2025 End: 63-76-8980Txkhzp flowsheetCorey Noa DO Work Phone: [facility] [place] OBGYNStart: 07-03-2025 End: 76-16-5036Yumemuqwr Result EncounterCorey Noa DO Work Phone: noms External Department UnsolicitedStart: 07-03-2025 End: 85-45-5685jzqefnnwfdPNNRRochester General Hospital Ambulatory PPGStart: 07-03-2025 End: 98-96-7017Cvfxrgp encounter procedureJoandrzej Chen DO Work Phone: [facility] - Family MedicineComment on above:Encounter for subsequent annual wellness visit (AWV) in Medicare patient (Primary Dx); Encounter for screening mammogram for malignant neoplasm of breastStart: 07-03-2025 End: 04-89-3985Tjjiurrk preventive med est patient 40-64yrsCorey Noa DO Work Phone: noms [place] OBGYNComment on above:Well woman exam with routine gynecological exam; Breast cancer screening by mammogram; Postmenopausal stateStart: 07-03-2025 End: 05-86-6429Bxaglu-up encounter[address] - Pharmacy Medication ManagementComment on above:CHCF (current) use of 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 (Primary Dx)Start: 07-03-2025 End: 59-52-4459oyzhdlsrplEFPVW FAZIONot AvailableStart: 07-02-2025 End: 86-38-0570GnwbewPtst L Yuhas DO Work Phone: [facility] - Family MedicineComment on above:Mixed hyperlipidemiaStart: 06-29-2025 End: 37-25-9933Scavzzgwst and management of inpatientJOANDRZEJ Sorto [facility] Hospitaltart: 06-15-2025 End: 31-98-3317Ykllbxzqe encounterB[facility] Work Phone: [phone] - Pharmacy Medication ManagementStart: 06-08-2025 End: 19-31-8950lppojzyyurQOQXCU F KINDLFacility:[facility] Centertart: 06-07-2025 End: 19-85-6320Ezzidx-up encounter[address] - Pharmacy Medication ManagementComment on above: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 Hospitaltart: 05-08-2025 End: 34-77-6769KgefhqJfae L Yuhanikhil BATEMAN Work Phone: [facility] - Family MedicineComment on above:Gastroesophageal reflux disease, unspecified whether esophagitis presentStart: 05-02-2025 End: 76-98-6395VnxrzkYpdnrsq W Bauer MD Work Phone: JANISMS Milady NeurologyComment on above:Migraine without aura and without status migrainosus, not intractableStart: 04-20-2025 End: 19-22-7581Rhpbtf-up encounter[address] - Pharmacy Medication ManagementComment on above:CHCF (current) use of 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 (Primary Dx)Start: 04-20-2025 End: 42-31-9822jxgflttlhsPKACTUYUZ PHARMACY MEDICATION MANAGEMENTSelect Medical OhioHealth Rehabilitation Hospitaltart: 04-13-2025 End: 81-68-5951GswbefPyiu L Yuhas DO Work Phone: [facility] - Family MedicineComment on above:Essential hypertensionStart: 04-04-2025 End: 94-11-7109LgwyztCfmhbaq W Bauer MD Work Phone: noms SWS NEURComment on above:Migraine without aura and without status migrainosus, not intractableStart: 03-23-2025 End: 64-83-9420Ivrzfw Cheyenne Levin MD Work Phone: noms BM NEUROLOGYStart: 03-23-2025 End: 96-54-5085Erskcbjulian Levin MD Work Phone: noms NEUROLOGYStart: 03-23-2025 End: 88-45-4521Dpnunj outpatient visit 25 minutesMauro Levin MD Work Phone: noms SWS NEURComment on above:Migraine without aura and without status migrainosus, not intractable (Primary Dx)Start: 03-23-2025 End: 54-99-7676jgcwgcqvksVMVWMHD W BAUERNot AvailableStart: 03-23-2025 End: 06-80-1469xlxldxpbjkMWXMTOCXR PHARMACY MEDICATION MANAGEMENTSelect Medical [facility] Rehabilitation Hospitaltart: 03-23-2025 End: 05-01-1980Imtzrn-up [address] - Pharmacy Medication ManagementComment on above: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 (Primary Dx); Lupus anticoagulant disorderStart: 03-06-2025 End: 50-96-0580augzmaffvySWUMV BROWNSelect Medical OhioHealth Rehabilitation Hospitaltart: 03-06-2025 End: 36-86-6076Wabrqldwj therapyAlexander Chen DO Work Phone: [facility] - Diabetes and Nutrition EducationComment on above:Type 2 diabetes mellitus without complication, without long-term current use of insulin ([facility])Start: 03-04-2025 End: 46-61-9559marbeqvpewHyjyppdr Ann HackenburgFacility:[facility] Healthtart: 02-16-2025 End: 92-86-8507Wmszpk-up encounterPm[address] - Pharmacy Medication ManagementComment on above:CHCF (current) use of 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 (Primary Dx)Start: 02-16-2025 End: 25-54-7816qyptpqpdaiIRNUYVFDavis Hospital and Medical Centertart: 02-08-2025 End: 43-17-7777NifxiyWzau L Yuhas DO Work Phone: [facility] Internal Medicine - Family MedicineComment on above:Mild persistent asthma without complicationStart: 01-31-2025 End: 33-33-3461Qwwadshyf encounterJoandrzej Chen DO Work Phone: 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; Mixed hyperlipidemia; IFG (impaired fasting glucose); Obesity, morbid ([facility]); Bipolar II disorder ([facility]); Chronic deep vein thrombosis (DVT) of proximal vein of lower extremity, unspecified laterality ([facility]); Systemic lupus erythematosus ([facility]); Lupus anticoagulant disorder; Mild persistent asthma without complication; Gastroesophageal reflux disease, unspecified whether esophagitis present; Special screening for malignant neoplasm of colonStart: 01-29-2025 End: 17-22-8025uimcjdiyeqWBLCFaxton Hospital Ambulatory PPGStart: 01-22-2025 End: 66-62-3542ShbmcpBxho L Yuhas DO Work Phone: [facility] Internal [facility] - Family MedicineComment on above:Gastroesophageal reflux disease, unspecified whether esophagitis presentStart: 01-19-2025 End: 19-50-5087Gwipjq-up encounter[address] - Pharmacy Medication ManagementComment on above:CHCF (current) use of 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 (Primary Dx)Start: 01-19-2025 End: 25-68-3389jkuwdqkcapSGFREHIHE PHARMACY MEDICATION MANAGEMENTSelect Medical OhioHealth Rehabilitation Hospitaltart: 01-15-2025 End: 95-67-4083Edlepp flowsheetFebarrettia Joseph Shepherd ASSOCIATE QUALITY ENGINEER Work Phone: noms BM NEUROLOGYStart: 01-15-2025 End: 05-25-7814Psuolb flowsheetFelicia C Windnagel ASSOCIATE QUALITY ENGINEER Work Phone: noms BM NEUROLOGYStart: 01-15-2025 End: 83-81-1149Egoihv outpatient visit 25 minutesFelicia Joseph Shehperd ASSOCIATE QUALITY ENGINEER Work Phone: noms SWS NEURComment on above:Migraine without aura and without status migrainosus, not intractable (CMS/HCC) (Primary Dx)Start: 01-15-2025 End: 53-33-4384XgfayvEqan L Yuhas DO Work Phone: [facility] - Family MedicineComment on above:Essential hypertensionStart: 01-03-2025 End: 63-87-0457FwgptwUizi L Yuhas DO Work Phone: [facility] - Family MedicineComment on above:Gastroesophageal reflux disease, unspecified whether esophagitis present; Cervical spondylosis with radiculopathyStart: 01-01-2025 End: 07-96-9987XpkbtyIgyz L Yuhas DO Work Phone: [facility] - Family MedicineComment on above:Mixed hyperlipidemiaStart: 12-26-2024 End: 98-45-2602IcboviDyer L Yuhas DO Work Phone: [facility] - Family MedicineComment on above:Mixed hyperlipidemiaStart: 12-25-2024 End: 42-51-1729BnthnnJywq L Yuhas DO Work Phone: [facility] - Family MedicineComment on above:Mild persistent asthma without complicationStart: 12-22-2024 End: 40-56-5193Xcvmla-up encounter[address] - Pharmacy Medication ManagementComment on above: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 (Primary Dx)Start: 12-22-2024 End: 77-13-2405vjetlfbwyxXEIZKDBSZ PHARMACY MEDICATION MANAGEMENTSelect Medical OhioHealth Rehabilitation Hospitaltart: 11-24-2024 End: 08-52-5677Rbrvlq-up encounter[address] - Pharmacy Medication ManagementComment on above: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 (Primary Dx)Start: 11-24-2024 End: 90-43-3852ulcdyznrctNAVNQXZOB PHARMACY MEDICATION MANAGEMENTSelect Medical [facility] Rehabilitation Hospitaltart: 11-08-2024 End: 79-09-5276ShytadActw L Yuhas DO Work Phone: [facility] Internal Medicine - Family MedicineComment on above:Mild persistent asthma without complicationStart: 10-27-2024 End: 73-73-0038Nlkkrg-up encounter[address] - Pharmacy Medication ManagementComment on above:CHCF (current) use of 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 (Primary Dx)Start: 10-27-2024 End: 91-65-6676caexpqgcrwKDEBPNLIW PHARMACY MEDICATION MANAGEMENTSelect Medical [facility] Rehabilitation Hospitaltart: 10-18-2024 End: 11-14-1904TbyvhiGhch L Yuhas DO Work Phone: [facility] Internal Medicine - Family MedicineComment on above:Cervical spondylosis with radiculopathy; Gastroesophageal reflux disease, unspecified whether esophagitis presentStart: 10-03-2024 End: 59-74-2031WejjjfKufq L Yuhas DO Work Phone: [facility] - Family MedicineComment on above:Gastroesophageal reflux disease, unspecified whether esophagitis presentStart: 09-29-2024 End: 88-24-0700Aflwva-up encounter[address] - [place] Medication Therapy ManagementComment on above:CHCF (current) use of 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 (Primary Dx)Start: 09-29-2024 End: 06-90-0136sghigkijzqCQMWCNPFX PHARMACY MEDICATION MANAGEMENTC[facility] HospitalStart: 09-22-2024 End: 81-22-1492Dapqynjimenez Levin MD Work Phone: noms NEUROLOGYStart: 09-22-2024 End: 73-92-8679Zbkojxjulian Levin MD Work Phone: noms NEUROLOGYStart: 09-22-2024 End: 30-00-2605Fougex outpatient visit 25 minutesMauro Levin MD Work Phone: noms SWS NEURComment on above:Migraine without aura and without status migrainosus, not intractable (CMS/HCC)Start: 09-22-2024 End: 41-22-7432kvftcqrqsbGUZYTTM W BAUERNot AvailableStart: 09-20-2024 End: 45-89-1724qxljtvxzomOKWBRXOHK PHARMACY MEDICATION MANAGEMENTSelect Medical [facility] Rehabilitation Hospitaltart: 09-20-2024 End: 52-69-2929Pnzfdg-up encounterPm[address] Medication Therapy ManagementComment on above:CHCF (current) use of 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 (Primary Dx)Start: 09-15-2024 End: 09-21-7847ihzzosbccrMMOT L [facility] Hospitaltart: 09-01-2024 End: 40-43-9619Rqmpqo-up encounterPm[address] Medication Therapy ManagementComment on above:CHCF (current) use of 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 (Primary Dx)Start: 09-01-2024 End: 90-94-8717sxblqnxwvtSNEJPTMAD PHARMACY MEDICATION MANAGEMENTC[facility] HospitalStart: 08-29-2024 End: 30-51-1547ywkiolvxsfGEOVPOHR E PERRYFacility:EU [place]vueStart: 08-29-2024 End: 59-29-6634Kqyytii encounter procedureJENNIFER E GERRY [facility] Juve start: 08-24-2024 End: 50-70-2965qfwayuzudcBnhq ProviderFacility:[facility] Centertart: 08-24-2024 End: 52-23-6951sszyszltdkDydjAarti Chen DOFacility:PM [facility] Hospitaltart: 08-18-2024 End: 95-71-9101Sbrbnjrxi Result EncounterCorey Noa DO Work Phone: noms External Department UnsolicitedStart: 08-18-2024 End: 26-10-9320Uscuxxoow Result EncounterCorey Noa DO Work Phone: noms External Department UnsolicitedStart: 08-11-2024 End: 64-03-3701utgzoseojrOzmg Yumercyone des moines medical centerFacility:[facility] Start: 08-04-2024 End: 59-04-1921zmxjewnlytIHQMG SERVICECleveland Clinic [facility] HospitalStart: 07-21-2024 End: 98-48-6208nugpesomrgIRZZCPiedmont [facility] HospitalStart: 07-20-2024 End: 96-69-6273ewmhwpghcxIMSM L [facility] HospitalStart: 07-20-2024 End: 28-39-6586petgncybmiVBRJ [facility] PPGStart: 06-26-2024 End: 61-43-4163Gnilqe flowsheetCorey Noa DO Work Phone: noms BCP OBStart: 06-26-2024 End: 53-47-1057Mndgud flowsheetCorey Noa DO Work Phone: NOMS BCP OBStart: 06-26-2024 End: 85-19-5165Wjorplsss Result EncounterCorey Noa DO Work Phone: noms External Department UnsolicitedStart: 06-26-2024 End: 59-22-5596Rwheypi encounter procedureCorey Noa DO Work Phone: noms BCP OBComment on above:Well woman exam with routine gynecological exam; Postmenopausal state; Breast cancer screening by mammogramStart: 06-15-2024 End: 47-90-0859Oiegsgyas encounterMauro Levin MD Work Phone: noms SWS NEURStart: 06-07-2024 End: 17-73-5845RhceztKzbysrk W Bauer MD Work Phone: noms SWS NEURComment on above:Lumbar radiculopathy Start: 05-26-2024 End: 37-11-7009Izdyrp flowsheetMauro Levin MD Work Phone: noms BM NEUROLOGYStart: 05-26-2024 End: 53-16-4802Pfxjar flowsFrancisco J Levin MD Work Phone: noms BM NEUROLOGYStart: 05-26-2024 End: 52-43-6242Vyuweq outpatient visit 25 minutesBrejohn Levin MD Work Phone: noms SWS NEURComment on above:Migraine without aura and without status migrainosus, not intractable (CMS/HCC)Start: 02-25-2024 End: 55-70-4540rftdtfigzpHC Alexander Chen Work Phone: [facility] Work Phone: Start: 02-25-2024 End: 28-19-7178Ikdtwtq encounter procedureDO Alexander Chen Work Phone: [facility] [place] Work Phone: Start: 12-09-2023 End: 73-53-8955gwqeydtowyLSXL L [facility] Hospitaltart: 10-20-2023 End: 37-88-7457Czs Drop Heather Christopher [facility] Start: 10-20-2023 End: 52-05-3721morjeloqzpHufwq M. ShaynaeFacility:FTMCStart: 10-04-2023 End: 40-71-6948fjtofklzkfNV Alexander Chen Work Phone: [facility] Work Phone: Start: 10-04-2023 End: 08-27-9792Vqmemds encounter procedureDO Alexander Chen Work Phone: [facility] [place] Work Phone: Start: 09-28-2023 End: 84-69-0144zvfinxrrkkFTWOLPMJ E PERRYFacility:EU ueStart: 09-28-2023 End: 49-26-1071Jydoxme encounter procedureJENNIFER E GERRY [facility] start: 09-24-2023 End: 11-08-1922ipiwtofdipUdcuhu X OrzechFacility:FTMCStart: 09-24-2023 End: 28-62-5566Ufm Drop offAurora X Orzech [facility] Start: 09-24-2023 End: 01-12-9232hvwtcanvsrHQWTFDRY E PERRYFacility:EU [place]vueStart: 09-24-2023 End: 72-84-7552Vihbsky encounter procedureJENNIFER E GERRY [facility] start: 09-14-2023 End: 03-13-8662Fyz Drop offJENNIFER E GERRY [facility] Start: 09-14-2023 End: 86-08-0416uzclybppwrGTCUQFQS E PERRYFacility:FTMCStart: 03-19-2023 End: 20-06-5285sjqgxtltncUQ Alexander April Work Phone: [facility] Work Phone: Start: 03-19-2023 End: 06-60-5377Cjlytxv encounter procedureDO Alexander Chen Work Phone: [facility] [place] Work Phone: Start: 08-25-2022 End: 61-82-2859Kkkzsnx encounter procedureJENNIFER E GERRY [facility] start: 08-07-2022 End: 66-43-9966yissrunyejBW ТАТЬЯНА JONES Facility:U5Lzlar: 06-16-2022 End: 73-86-0691ihyjuubbeiIO KOBI FAZIOFacility:Y4Rdobs: 06-05-2022 End: 58-05-6627ktapvqmslfUW KOBI FAZIOFacility:K8Isfje: 12-10-2021 End: 32-50-2140tfjobmsfshNIFTX JIANLunacynthia Caalfin HospitalStart: 12-10-2021 End: 09-66-9930Lyytrkqcri hospital visit by Naomy Chen Work Phone: [facility] LaboratoryStart: 08-30-2018 End: 01-89-9639Uxivtlgnul and management of inpatientTHOMAS ROSSANA [facility] HospitalStart: 08-16-2018 End: 35-38-7792Pfkmqea encounter procedureTHOMAS ROSSANA [facility] HospitalStart: 55-74-0688Wqbbhacrr for other preprocedural examinationTHOMAS Diallo [facility] HospitalStart: 87-19-7675Qdgbbfkvq for preprocedural cardiovascular examinationTHOMAS Diallo [facility] HospitalStart: 08-16-2018 End: 33-62-6480Qqmgvmk encounter procedureTHOMAS ROSSANA [facility] HospitalStart: 02-23-2018 End: 94-66-8264WviiginzdhYZVNWHX MARIE GREENERiedwardkush [facility] Rensselaertart: 11-09-2017 End: 33-90-6443Zxpxqpxtfm and management of inpatientTHOMAS ROSSANA [facility] HospitalStart: 11-09-2017 End: 10-79-5549Mhrkxajxfn and management of inpatientThomas Rossana Elizabeth Work Phone: [facility] Patient Care [place] 430Start: 10-21-2017 End: 60-67-7567Wwpaakx encounter procedureTHOMAS ROSSANA [facility] HospitalStart: 20-67-4794Odtgqce encounterThomas Rossana Elizabeth Work Phone: [facility] Preadmission Testing Encounter for other preprocedural examinationTHOMAS [facility] HospitalEncounter for preprocedural cardiovascular examinationTHOMAS [facility] Procedures DateProcedureProcedure DetailPerforming ClinicianStart: 17-38-5020Mfwtscjtxuo timePromedica Pharmacy Med[facility] Work Phone: [phone]: 37-12-0551Mremszrxldk timePromedica Pharmacy Medication Management Work Phone: Start: 28-12-9691RRK,APTIMA HPV,AGE GDLNCorey Noa DO Work Phone: Start: 77-87-7368Ihtbocwpayr timePromedica Pharmacy Medication Management Work Phone: Start: 55-84-6550Kouej depression screening assessment Alexander Chen DO Work Phone: Start: 18-25-3903Ahfmaowgqyx timePromedica Pharmacy Medication [facility] Work Phone: Start: 37-17-5879Izjkrydrteb timePromedica Pharmacy Medication [facility] Work Phone: Start: 28-12-3196Escpuvywisi timePromedica Pharmacy Medication [facility] Work Phone: Start: 36-08-4603IGW REFERRAL TO DIABETIC EDUCATION Alexander Chen DO Work Phone: Start: 89-43-5372Kqcfrnczeze timePromedica Pharmacy Medication Management Work Phone: Start: 68-82-2088Odtitnvrynfjs metabolic panelAlexander Chen DO Work Phone: Start: 29-32-8329Zugkb panelJoandrzej Chen DO Work Phone: Start: 63-99-5237Arscp depression screening assessment Alexander Chen DO Work Phone: Start: 05-21-8182Itknlzndrhx timePromedica Pharmacy Medication [facility] Work Phone: Start: 78-46-6252Yuowgdppqrs timePromedica Pharmacy [facility]ication [facility] Work Phone: Start: 37-09-4291Vuvlodnsqtd timePromedica Pharmacy [facility]ication [facility] Work Phone: Start: 06-54-6644Cjgrddbuxwh timePromedica Pharmacy [facility]ication [facility] Work Phone: Start: 67-55-3584Mfltqapzlwy timeJobst Service Work Phone: Start: 89-25-3989Pczxhtxxhtz timeJobst Service Work Phone: Start: 50-35-2548Udhwsnnsbwa timeJobst Service Work Phone: Start: 94-84-1761WC TOMOSYNTHESIS SCREENING BICorey Noa DO Work Phone: Start: 73-43-8901JnrqjhsviupPfsoiwq Bauer MD Work Phone: Start: 79-79-3414Qlpzm depression screening assessment Pm 2Start: 68-88-2979WVL,APTIMA HPV,AGE GDLNCorey Noa DO Work Phone: Start: 94-77-7569KobxgebdxwlCnihtcy Bauer MD Work Phone: Start: 69-02-7338Dtmnlpbeyspe bilateral oophorectomy ANDRE MCNEIL Start: 73-11-5565Hntimqjmcliln of internal noseANDRE MCNEIL Start: 02-61-0539Xjlvutpbnoocsrrit with dilation of urethral strictureANDRE MCNEIL Start: 11-09-2017 End: 27-73-1486OGMR TOTAL HIP ARTHROPLASTY ANTERIOR APPROACHThomas Rossana Elizabeth Work Phone: Start: 33-35-9185Jprgzieexo arthroplasty of the hip ANDRE CMNEIL Start: 12-39-1217Xlpxleaejf of cataractANDRE MCNEIL Start: 22-35-5851Skts cava filter (physical object) ANDRE MCNEIL Start: 53-36-4897Xbvtwhlhpe of spineANDRE MCNEIL Start: 07-48-3323Prmifan of operative procedure on knee ANDRE MCNEIL Start: 31-37-6760Mfdyapqnub, device (physical object) ANDRE MCNEIL Start: 33-50-7246Cjjdnciw sectionANDRE MCNEIL Plan of Treatment DateCare ActivityDetailAuthorStart: 07-15-2026 End: 08-14-7227Fqsrenc encounter ahwugpbgs54/02/2026 10:00 AM EST Procedure Visit [facility]UDWIG [facility] [address] [place], [id number] Kobi Latham DO [address] [place] [address] LUDWIG CARRERAtart: 07-09-2026 End: 23-02-2395Betbehd encounter xetnnwhle52/27/2026 10:00 AM EDT Office Visit [facility] [address] [place] [address] [phone] Physicians Internal Medicine - Family MedicineStart: 10-13-3312Nqaui BMI ScreeningAdult BMI ScreeningEast [facility] SystemStart: 23-62-6414Budawdoxur ScreeningDepression ScreeningEast [facility] City Hospital SystemStart: 08-95-1367Xhclkx Use: DiabeticStatin Use: DiabeticEast Liverpool City Hospital SystemStart: 19-84-3055Smqia BMI ScreeningAdult BMI ScreeningEast [facility] City Hospital SystemStart: 52-31-7173Bzwtivh ScreeningTobacco ScreeningEast [facility] Hospital System Start: 81-05-3845Ffgiuvjwi for malignant neoplasm of colonNOMD HealthcareStart: 61-86-4412Iuwcz BMI ScreeningAdult BMI ScreeningEast [facility] Hospital SystemStart: 34-52-7332Kxuol BMI ScreeningAdult BMI ScreeningEast [facility] SystemStart: 79-80-3236Pkpfwhbrpc ScreeningDepression ScreeningEast [facility] SystemStart: 50-42-7725Uyabjmi ScreeningTobacco ScreeningEast [facility] SystemStart: 80-95-9970Jxltue Use: DiabeticStatin Use: DiabeticEast Liverpool City Hospital SystemStart: 96-85-7824Dnaoaapus for malignant neoplasm of breastMammogramMercy hospital springfield Start: 08-03-2025 End: 38-48-3758Knebca-up mobpipbwg48/21/2025 8:30 AM EST Follow Up Anticoagulation [facility] - Pharmacy Medication Management [address] [place] [address] XkeAtmddtMercy Health Tiffin Hospital - Pharmacy Medication ManagementStart: 07-27-2025 End: 53-83-8028Liavpyt encounter procedureNOMS SWS NEURStart: 76-14-6562Vmbux BMI ScreeningAdult BMI ScreeningEast [facility] City Hospital SystemStart: 07-20-2025 Depression ScreeningDepression ScreeningEast [facility] City Hospital SystemStart: 07-20-2025 Tobacco ScreeningTobacco ScreeningEast [facility] Hospital SystemStart: 07-19-2025 End: 26-89-5050Lqpmpe-up ipvcjheqg30/06/2025 10:30 AM EST Follow Up Anticoagulation [facility] - Pharmacy Medication Management [address] [place] [address] LpzYvlidjMercy Health Tiffin Hospital - Pharmacy Medication ManagementStart: 07-13-2025 End: 20-35-4834Ugyfkn-up ukgxxoiur76/31/2025 11:45 AM EDT Follow Up Anticoagulation [facility] - Pharmacy Medication Management [address] [place] [address] WzrMmkaxyMercy Health Tiffin Hospital - Pharmacy Medication ManagementStart: 07-03-2025 End: 59-19-1967TPJ Breast - bilateral screeningMammography screening bilateral with CAD Imaging Routine Encounter for screening mammogram for malignant neoplasm of breast Expected: 07/03/2025, Expires: 07/03/2026[facility] Work Phone: Comment on above:Expected: 07/03/2025, Expires: 07/03/2026Start: 07-03-2025 End: 63-03-9427YWM Skeletal system Views for bone densityDEXA bone density Imaging Routine Postmenopausal state Expected: 07/03/2025 (Approximate), Expires:07/03/2026NOMS HealthcareComment on above:Expected: 07/03/2025 (Approximate), Expires: 07/03/2026Start: 07-03-2025 End: 33-76-7630MV Breast - bilateral ScreeningBilateral screening mammogram Imaging Routine Breast cancer screening by mammogram Expected: 07/03/2025, Expires: 09/02/2026[facility] Work Phone: comment on above:Expected: 07/03/2025, Expires: 09/02/2026Start: 07-03-2025 End: 32-31-6428Dmcopvv encounter procedureNOMS BCP OBComment on above:Arrived Start: 07-03-2025 End: 43-83-4018Irjxua-up oczlmodtt44/21/2025 9:00 AM EDT Follow Up Anticoagulation [facility] - Pharmacy Medication Management [address] [place] [address] PqlCytipeMercy Health Tiffin Hospital - Pharmacy Medication ManagementStart: 06-29-2025 End: 19-00-7860Jwudtjvba to same day surgery yggcoq3706/29/2025 1:30 PM EDT - 06/29/2025 2:30 PM EDT Surgery [facility] - Endoscopy [address] [place] [address] Alexander Chen, DO [address] [place] [address] COLONOSCOPY DIAGNOSTIC / SCREENING [G0121 +1 more][facility] - EndoscopyComment on above:COLONOSCOPY DIAGNOSTIC / SCREENING [G0121 +1 more]Start: 06-29-2025 End: 36-72-3233Zvmzv ca scrn not hi rsk indCOLONOSCOPY DIAGNOSTIC / SCREENING Screen for colon cancer 06/29/2025 1:30 PM EDTFREMONT ENDOSCOPYStart: 06-29-2025 Subsequent hospital visit by lmmctjazx64/17/2025 1:30 PM EDT Hospital Encounter [facility] - Endoscopy [address] [place] [address] Alexander Chen, DO [address] [place], [place] [phone] (Work) [facility] - EndoscopyStart: 06-28-2025 End: 59-94-6772ikilbrvtqn04/16/2025 4:20 PM EDT Support Visit [facility] - Pre Admit [address] [place] [address] [facility] - Pre AdmitStart: 06-07-2025 End: 88-61-5773Dawvku-up gjzziaulk13/25/2025 10:30 AM EDT Follow Up Anticoagulation [facility] - Pharmacy Medication Management [address] [place] [address] [facility]uYohkfrRochester [facility] - Pharmacy Medication ManagementStart: 06-01-2025 End: 98-10-0773Vobovr-up /19/2025 8:45 AM EDT Follow Up Anticoagulation [facility] - Pharmacy Medication Management [address] [place] [address] BdrYjxucoMercy Health Tiffin Hospital - Pharmacy Medication ManagementStart: 21-78-7668ZZMJI-19 Vaccine ( season)COVID-19 Vaccine ( season)[facility] SystemStart: 50-78-7893Bhvkqxxvj vaccinationAtrium Health University Citytart: 05-09-2025 End: 06-49-7224Ypehiwn encounter iohcwadsx00/27/2025 1:00 PM EDT Office Visit [facility] [place] [facility] [address] [facility] [address] Alexander Chen, [address] [facility] [place], [id number] [facility] Internal Medicine - Family MedicineStart: 04-20-2025 End: 85-93-1587Jatcwx-up stiwvlust85/08/2025 8:45 AM EDT Follow Up Anticoagulation [facility] - Pharmacy Medication Management [address] [place] [address] WuxXxbozhMercy Health Tiffin Hospital - Pharmacy Medication ManagementStart: 03-23-2025 End: 22-39-8632Tirshxa encounter procedureNOMS SWS NEURComment on above:Arrived Start: 03-23-2025 End: 29-43-1810Mebywt-up hraxzuaow77/11/2025 9:00 AM EDT Follow Up Anticoagulation [facility] - Pharmacy Medication Management [address] [place] [address] HapHtxhdkMercy Health Tiffin Hospital - Pharmacy Medication ManagementStart: 03-06-2025 End: 31-49-2710Crhuyynwb oqlxnus7603/06/2025 1:00 PM EDT Support Visit [facility] - Diabetes and Nutrition Education [address] [place] [address] Alexander Chen, DO [address] [place] [address] Zoe Norris LD [facility] - Diabetes and Nutrition EducationStart: 02-16-2025 End: 00-35-4299Bsolsy-up bszzbuods93/06/2025 8:45 AM EDT Follow Up Anticoagulation [facility] - [facility] Medication Management [address] [place] [address] [phone] Hospital Medication ManagementStart: 01-29-2025 End: 14-71-6416Csbvhpd encounter ehmkpiqgd42/19/2025 1:00 PM EDT Office Visit [facility] [place] [facility] [address] [place] [address] Alexander Chen, DO [address] [place], [place] [facility] Internal Medicine - Family MedicineStart: 01-19-2025 End: 47-03-1783Dsoeye-up obboyukid78/09/2025 8:45 AM EDT [facility] [address] [place] [address] OprHaxjrnMercy Health Tiffin Hospital - Pharmacy Medication ManagementStart: 01-15-2025 End: 63-03-5457Vhvvncd encounter btjhcbhri45/05/2025 1:00 PM EDT Office Visit [facility] [address] [facility] [address] [place] [address] Olimpia Shepherd, ASSOCIATE QUALITY ENGINEER [address], [facility] [address] [place] [address] ArrivedNOMS SWS NEURComment on above: ArrivedStart: 01-05-2025 End: 86-08-6729Cduspbv encounter zamtggrdd27/25/2025 10:30 AM EDT Office Visit [facility] [address] [address] Mauro Levin MD [address] [place] [address] [facility] NEURStart: 12-22-2024 End: 32-51-8733Uyjnwa-up teememzzy45/11/2025 9:15 AM EDT Follow [facility] Med[facility] [address] [place] [address] DtcSjgwuhCity Hospital Medication ManagementStart: 11-24-2024 End: 93-37-1646Xkvoiz-up kyvejqoge38/14/2025 9:15 AM EDT Follow Up Anticoagulation [facility] - Pharmacy Medication Management [address] [place] [address] NgbOwjxwwCity Hospital Medication ManagementStart: 10-27-2024 End: 05-13-2550Scrcxq-up encounterSelect [facility] Medication Therapy ManagementStart: 09-29-2024 End: 72-25-4962Epkgci-up uocxsrrbf17/17/2025 9:00 AM EST Follow Up Anticoagulation [facility] Medication Therapy Management [address] [place] [address] XxkPscmmiSelect Medical Specialty Hospital - [facility] Medication Therapy ManagementStart: 09-22-2024 End: 32-87-4415Hlfzxic encounter tmreqbjly82/10/2025 10:30 AM EST Office Visit [facility] [address] [address] Mauro Levin MD [address] [place] [phone] ArrivedNOMS SWS NEURComment on above: ArrivedStart: 09-20-2024 End: 97-51-7858Hsipqe-up htfouezqa30/08/2025 9:15 AM EST Follow Up Anticoagulation [facility] Medication Therapy Management [address] [place] [address] GkvJaghmbHCA [facility] Medication Therapy ManagementStart: 09-15-2024 End: 76-99-8663Pqwoqgx encounter dyuqmmkyp62/03/2025 8:00 AM EST Appointment [facility] - Pulmonary Function [address] [place] [address] Alexander Chen, DO [address] [place] [address] [facility] - Pulmonary FunctionStart: 09-01-2024 End: 70-98-4098Ddmspof encounter qqzrcrgar51/20/2024 10:10 AM EST Office Visit [facility] [address] [facility] [address] [place] [address] Mauro Levin MD [address] [facility] [address] [phone] [facility] SWS NEURStart: 61-49-1322Mzaxwjmbv for malignant neoplasm of breastMammogramNOMD HealthcareStart: 06-26-2024 End: 14-35-2772PW Breast - bilateral ScreeningBilateral screening mammogram Imaging Routine Breast cancer screening by mammogram Expected: 06/26/2024 (Approximate), Expires: 08/26/2025[facility] Work Phone: comment on above:Expected: 06/26/2024 (Approximate), Expires: 08/26/2025Start: 06-26-2024 End: 64-40-8314Xcektvp encounter procedureNOMS BCP OBComment on above:Arrived Start: 01-94-2190NLCTL-19 Vaccine (6 - 2024-25 season)COVID-19 Vaccine ( season)[facility] SystemStart: 53-64-9962Aiimpmhmr vaccination Influenza Vaccine (#1)[facility]Start: 59-60-7216Uymwzgpua complement [facility]50 [facility] Campustart: 42-42-6573Quuswfbkp complement CH50 [facility] Campustart: 83-11-4901Zljzbhyqg complement CH50 [facility] Campustart: 94-94-0559YNI ( or age 60+ yrs) (1 - Risk 60-74 years 1-dose series)RSV ( or age 60+ yrs) (1 - Risk 60-74 years 1-dose series)[facility] Citytart: 77-32-7309Koacqvitd vaccinationFlu vaccine (#1)[facility] HospitalStart: 00-43-6493LzvbxnjfsaPlutrnToledo Hospital PeriopStart: 82-32-7329Tfaohrg stimulating hormone measurementTS testingTrihealth Mccullough-Hyde Memorial HospitalStart: 82-09-2897Fnfzvqqcq vaccination SEQUENTIAL INFLUENZA VACCINE (#1)[facility] Work Phone: Start: 48-79-1379Cgjbirjnq for malignant neoplasm of breastBreast cancer screenTrihealth Mccullough-Hyde Memorial HospitalStart: 10-18-1740Pshmzltk Vaccine (1 of 2) Shingles Vaccine (1 of 2)[facility] HospitalStart: 45-66-1816Kngsgmlqr for malignant neoplasm of colonTrihealth Mccullough-Hyde Memorial HospitalStart: 31-19-5656Hqndaylvo for malignant neoplasm of cervixTrihealth Mccullough-Hyde Memorial HospitalStart: 00-50-5948Ozbwyhxbr for malignant neoplasm of cervix Pap smearTrihealth Mccullough-Hyde Memorial HospitalStart: 35-98-8349QThP,Tdap and Td Vaccines (1 - Tdap) DTaP,Tdap and Td Vaccines (1 - Tdap)[facility] Citytart: 1980 DTaP/Tdap/Td vaccine (1 - Tdap)DTaP/Tdap/Td vaccine (1 - Tdap)[facility] HospitalStart: 87-58-2077Avurf BMI Follow Up PlanAdult BMI Follow Up PlanEast Liverpool City Hospital SystemStart: 59-79-9449Pkgvftlt foot examinationDiabetic Foot ExamProSt. Anthony's Hospitaltart: 51-21-9965PWK screeningHIV screenTrihealth Mccullough-Hyde Memorial HospitalStart: 10-68-3710Nueannndpn MonitoringDepression MonitoringTrihealth Mccullough-Hyde Memorial HospitalStart: 83-01-6538Nzmwe panelLipid screenTrihealth Mccullough-Hyde Memorial HospitalStart: 48-92-8326PLAVN-19 Vaccine (1)COVID-19 Vaccine (1)[facility] HealthStart: 48-41-3717Fqfyhmoz screeningDiabetic Ophthalmology ExamProSt. Anthony's Hospitaltart: 34-35-5693Rdfjhbapp C screening Hepatitis C screenTrihealth Mccullough-Hyde Memorial HospitalStart: 81-84-3776Lrqvwsgss for malignant neoplasm of colonNOMS HealthcareStart: 42-89-9665USEPBKQLO C SCREENINGHEPATITIS C SCREENINGOhioChillicothe Va Medical Center Work Phone: Start: 24-86-9121Mdjkezlan colonoscopyCOLONOSCOPY [facility] Work Phone: Start: 59-97-2824Ilgbrqnaf for malignant neoplasm of cervixPAP SMEAROhAultman Orrville Hospital Work Phone: Start: 99-22-0641Dgiobse vaccinationTETANUS EVERY 10 YROhAultman Orrville Hospital Work Phone: End: 97-00-7530IbershwxsdyFbyaoinrmlx GI Routine Special screening for malignant neoplasm of colon 1 Occurrences starting 01/29/2025 until 01/29/2026[facility]-FairhillComment on above:1 Occurrences starting 01/29/2025 until 01/29/2026 ColonoscopyCOLONOSCOPY DIAGNOSTIC / SCREENING Personal history of adenomatous and serrated colon polypsProUniversity Hospitals Geauga Medical CenterComplement C3 [Mass/volume] in Serum or [facility] HospitalComplement C3 [Mass/volume] in Serum or [facility] HospitalComplement C3 [Mass/volume] in Serum or [facility] HospitalComplement C4 [Mass/volume] in Serum or [facility] HospitalComplement C4 [Mass/volume] in Serum or [facility] HospitalComplement C4 [Mass/volume] in Serum or [facility] HospitalECG 12 LeadECG 12 Lead Routine Pre-op exam Ordered: 10/21/2017[facility] Work Phone: [phone] A1c Routine 10/21/2017 12:20 PM EST [facility] Work Phone: End: 80-67-1957Iiekpjyaaf A1c/Hemoglobin.total in BloodHemoglobin A1c Lab Routine IFG (impaired fasting glucose) 1 Occurrences starting 01/29/2025 until 01/29/2026[facility] Work Phone: Comment on above:1 Occurrences starting 01/29/2025 until 01/29/2026Hemoglobin A1c/Hemoglobin.total in BloodHemoglobin A1c Lab Routine IFG (impaired fasting glucose) 01/29/2025 1:50 PM [facility] HospitalLanguage123 End: 43-35-2009Nvtid [facility] Work Phone: Comment on above:Once for 1 Occurrences starting 12/10/2021 until 12/10/2021Nicotine and Metabolites, BloodNicotine and Metabolites, Blood Routine 10/21/2017 12:20 PM [employer] Work Phone: THIN PREP TIS PAP AND HR HPV DNATHIN PREP TIS PAP AND HR HPV DNA Pathology and Cytology Routine Well woman exam with routine gynecol ogical exam Ordered: 06/26/2024[facility] HealthcareComment on above:Ordered: 06/26/2024THIN PREP TIS PAP AND HR HPV DNATHIN PREP TIS PAP AND HR HPV DNA Pathology and Cytology Routine Well woman exam with routine gynecological exam Ordered: 07/03/2025[facility] HealthcareComment on above:Ordered: 07/03/2025Vitamin D, Total, 25-OHVitamin D, Total, 25-[place] Routine 10/21/2017 12:20 PM .[employer] Work Phone: Immunizations Immunization DateImmunizationNotesCare PtvcupruPrfzdtey34-85-5702Quenvrbc trivalent influenza vaccine, adjuvanted, preservative free[address]11-07-2024influenza virus vaccine, unspecified formulation[address]11-10-2023influenza virus vaccine, unspecified formulationJENNIFER GERRY [facility]11-10-2023influenza, injectable, quadrivalent, preservative freePmh 2 [facility] Work Phone: [phone]-KsX-6 (COVID-19) mRNA-1273 vaccine ANDRE GERRY [facility]05-04-2021SARS-CoV-2 (COVID-19) mRNA-1273 vaccineJENNIFER GERRY [facility] HospitalComment on above:Result Comment: 2022-08-25: [id number]-75, mRNA, LNP-S, PF, 100mcg/0.5mL DosePmh [address] [place], [place] [address]04-08-2021 SARS-CoV-2 (COVID-19) mRNA-1273 vaccineJENNIFER GERRY [facility]04-07-2021COVID-19, mRNA, LNP-S, PF, 100mcg/0.5mL DosePmh [address] [place], [place] [address]Mjiplm90-70-2540qrbmatscc virus vaccine, unspecified formulationJENNIFER GERRY [facility]09-22-2020influenza virus vaccine, unspecified formulationJENNIFER GERRY [facility]09-22-2020influenza, seasonal, injectablePmh [address] [place] [address] 52-25-4281khbshlogw, seasonal, injectablePmh [address] [place], [place] [address]02510-15-2019 zoster vaccine recombinantJENNIFER GERRY [facility]08-28-2019influenza, injectable, quadrivalent, preservative freePmh 2 [facility]08-13-2019zoster vaccine recombinantJENNIFER GERRY [facility]10-14-2018influenza virus vaccine, unspecified formulationJENNIFER GERRY [facility]10-14-2018influenza, injectable, quadrivalent, preservative freePmh 2 [facility]FairhillAdrukz46-36-4828jcncugzzx virus vaccine, unspecified formulationJENNIFER GERRY [facility]10-01-2018influenza, injectable, quadrivalent, contains preservativePmh [address] [place], [place] [address]Etqkfl86-56-1883leomsipwkbrm conjugate vaccine, 13 valent ANDRE GERRY [facility]10-02-2017influenza virus vaccine, unspecified formulationJENNIFER GERRY [facility]10-02-2017influenza, seasonal, injectable, preservative freePmh 2 [facility]-FairhillNcoawt53-19-9639bxdwzdnja virus vaccine, unspecified formulationPmh [address] [place], [place] [address]Funthy29-20-5861qfudkerxq, seasonal, injectable, preservative freePmh [address] [place] [address] Payers DatePayer CategoryPayerPolicy [id number]-ayh [id number] 2021 [employer] of [employer] ( and others)[id number] of Defense ( and others)[id number] () 1.2.840.705349.1.13.693.2.7.9.828971.246695.315 [id number] 2.16.840.1.107252.3.249.13 2004Medicare 1.2.840.576881.1.13.693.2.7.3.004[id number] 2.16840.1.743018.3.57[id number] 2.16840.1.290702.3.57[id number] 2.16840.1.509663.3.57[id number] 2.16840.1.808278.3.57[id number] 2.16840.1.475278.3.57[id number] 2.16840.1.472145.3.57[id number] 2.16840.1.343472.3.57[id number] 2.16840.1.489001.3.57[id number] 2.16840.1.534654.3.57[id number] 2.16840.1.025386.3.579.2.[id number] 2.16840.1.091067.3.57[id number] 2.16840.1.176843.3.579.[id number] 2.16840.1.554480.3.579.2.[id number] 2.16.840.1.109692.3.579.[id number] 2.16840.1.858032.3.57[id number] 2.16840.1.060451.3.57[id number] 2.840.1.680687.3.57[id number] 2.840.1.784961.3.57[id number] 2.840.1.723963.3.579.2.[id number] 2.840.1.953384.3.579.2.885[id number] 2.840.1.074150.3.579.2.507150-77-6891Zndjqae8048788 2.840.1.480733.3.579.2.996283-18-1781Lmksipz7645493 2.840.1.947981.3.579.2.21[id number] 2.840.1.057622.3.579.2.40[id number] 2.16840.1.457791.3.579.2.959185-37-3275Dkiytqd66301330 2.16840.1.949373.3.579.2.6[id number] 2.16840.1.311358.3.579.2.183169-80-7127Srfzzrx471001258 2.840.1.908391.3.57[id number] 2.16840.1.676969.3.579.[id number] 2.840.1.226149.3.579.2.[id number] 2.840.1.593478.3.579.2.947[id number] 2.840.1.627622.3.579.2.23[id number] 2.840.1.039398.3.579.2.899473-95-7328Cvalafk810641058 2.840.1.024044.3.579.2.623825-53-4935Zjqyehl190039637 2.840.1.384006.3.579.2.1[id number] 2.0.1.931010.3.579.2.2[id number] 2.840.1.595723.3.579.2.59[id number] 2.840.1.369613.3.579.2.84[id number] 2.840.1.196193.3.579.2.01[id number] 2.840.1.499949.3.579.2.508803-52-4644Cmerctx901024752 2.16840.1.988783.3.579.[id number] 2.16840.1.654011.3.579.[id number] 2.16.840.1.039381.3.579.2.101380-26-3310Cmhvksv18904649 2.840.1.196714.3.579.2.3[id number] 2.16840.1.662100.3.579.2.477310-02-6600Jiazxqp92622878 2.840.1.206242.3.579.2.085831-04-0934Zqqhszt17438823 2.840.1.189155.3.579.2.11125-61-0598Yeoeznv92142469 2.840.1.550671.3.579.2.80324-80-1313Cwbkack98503786 2.840.1.169573.3.57[id number] 2.840.1.099789.3.579.2.27283-00-5268Treygew22693192 2.840.1.623911.3.579.2.48139-22-3453Znloepa92420268 2.840.1.180251.3.579.2.[id number] 2.840.1.189011.3.579.2.91285-16-1361Rvxnyvs526229438 2.16840.1.560207.3.579.2.79638-11-0151Cfxymcw153008412 2.840.1.502111.3.579.2.51972-50-8773Ospymha037693008 2.16.840.1.657913.3.579.2.[id number] 2.16.840.1.913101.3.579.2.196 [id number] 1960Unknown [id number] 2.16.840.1.727839.3.249.13Medicarexxxxxxxxxx 2.16.840.1.652271.3.249.13Unknownxxxxxxxxx 2.16.840.1.491866.3.249.13Unknown [id number] 2.16.840.1.4[id number] 2.16.840.1.937342.3.579.2.531 Social History DateTypeDetailFacilityStart: 11-09-2017 End: 91-51-2563Chtoyyl smoking status NHISNemckee medical center smokerMer HealthStart: 25-21-3084Owu Assigned At [facility]Not on [facility] Work Phone: Start: 62-85-2044Wumdoxm smoking statusNeverExecutive Urology of [facility] BellevueStart: 05-26-2024 End: 49-25-9512Kbe Assigned At [facility] Hospitaltart: 58-48-6564Rzp Assigned At [facility] Centertart: 08-19-2022 End: 84-78-8704Dlikdid use and exposureSmokeless tobacco non-userNOMS Healthcare Start: 05-26-2024 End: 91-24-1061Ixjdufikh beverage intakeLifetime non-drinker (finding)NOMS HealthcareStart: 05-26-2024 End: 29-15-3385Johrckn of Social functionNOMS HealthcareStart: 06-11-2023 Nadktkpan95BWLE HealthcareStart: 52-63-9839Hhwomxi Commentcaffeine: 1-2 cups per dayNOMD HealthcareStart: 87-75-7311Kbboqj identityIdentifies as female gender (finding)NOMS HealthcareStart: 07-20-2024 End: 45-10-7047Cwaxuzgrm beverage intakeCurrent non-drinker of alcohol (finding) [facility] SystemHas the electric, gas, oil, or water company threatened to shut off services in your home in past 12MoNoProOhiohealth Grove City Methodist Hospital SystemAre you now , , , , never or living with a partner?WidowedEast Liverpool City Hospital SystemHow often to you have a drink containing alcohol?NeverKing's Daughters Medical Center [facility] Health SystemDo you feel stress - tense, restless, nervous, or anxious, or unable to sleep at night because yourmind is troubled all the time - these days [OSQ]Only a littleAtrium Health University Citytart: 75-25-2297CxoSxqauy (finding)[facility] SystemDo you feel stress - tense, restless, nervous, or anxious, or unable to sleep at night because yourmind is troubled all the time - these days [OSQ]Not at allEast Liverpool City Hospital System Medical Equipment Procedure CodeEquipment CodeEquipment Original TextEquipment IdentifierDates Liner 32mm C Flat [place] Mpact - [id number]: 62-59-6487Ggcnd 48mm 2hl Acet Mpact - [id number]: 61-28-1674Fjin Sz2 Std Fem Prox Coat Ti Amistem-H - [id number]: 42-77-3073Ivki 32mm +4 Fem Biolox Delta Mectacer - [id number] Start: 11-09-2017 Goals DatePatient GoalDesired Activity/StatePersonal health goalComment on above: Evaluation of progress towards goal: transfer to [facility] med adjustments Personal health goal Functional Status QrywZsvqldvcxnAclicuNmvhbvwb24-55-9680Eeket score [AUDIT-C]0 07/03/2025 2:03 PM EDT Isabella [facility]12-17-2024Functional StatusN/A [facility]12-13-2022Functional StatusN/AExecutive Urology of [facility] Clinical Notes 08-25-2022 to 07-23-2025 Note Date & EcpgSytqDjcmxuif68-42-9171 Note [id number]#1.00OTGTCleveland Clinic Foundation11-07-2025 [facility] SURGERY Clinical Discharge Summary PERSON INFORMATION Name NOEMI BRAND Age 65 Years 1960 Sex FEMALE Language Zambian PCP ALEXANDER CHEN Marital Status Med Service Pain Management Surgery Acct# Arrival 07/20/2025 09:44:51 Visit Reason Thoracic Neuritis Acuity LOS 006 23:42 Address: [address] [place] [address] Comment: PROVIDER INFORMATION VITALS INFORMATION Vital Sign [...] constipation. Template Non-Formulary (Compund (more content not included)...[facility] 07-19-2025 [id number]#1.00OTGTIFF The patient?s history of present illness, physical findings and plan of care have been reviewed. There are no changes. [Electronically Signed on: 07/20/2025 10:08 EST] LINA SCHWAB MD [Electronically Signed on: 07/20/2025 09:59 EST] Iliana Theodore [Verified on: 07/20/2025 10:08 EST] LINA SCHWAB MD [Transcribed on: 07/19/2025 14:38 EST] [facility]11-06-2025 History of Present illness Narrative* Iliana Thorpe PharmD - 07/19/2025 10:30 AM EST 15 minute tjfi-ef-mofn follow-up anticoagulation appointment. INR performed in office [...] Thorpe PharmD 07/19/25 1039 documented in this encounterSelect [facility]10-31-2025 History of Present illness Narrative* Hossein Wong, [facility] - 07/13/2025 11:45 AM EDT 15 minute qwlq-ac-duga follow-up anticoagulation appointment. 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 documented in this encounterSelect Medical Specialty Hospital [facility]10-21-2025 History of Present illness Narrative* Elena Burgos LPN - 07/03/2025 10:00 AM EDT Reason for Appointment: Patient ID: Noemi Brand is a 65 y.o. female who presents for [facility] Women Visit Patient presents today for Annual [...] (Wellbutrin XL) 300 MG 24 hr tablet xshhjajhjb-vruukgzbosmkh-gduhxcnj-codeine (Fioricet W/Codeine) 06-349-73-30 MG capsule 1 capsule, Oral, Every 6 [...] for 30 days ALLERGIES Allergies Allergen Reactions [place] Hives Other Reaction(s): Unknown PT. SAYS SHE [...] II disorder (HCC) 03/29/2023 Blood coagulation disorder ([facility]) 03/29/2023 Migraine without aura and without status migrainosus, not intractable 03/29/2023 Cognitive impairment 03/29/2023 Inattention 03/29/2023 Degeneration of lumbar intervertebral disc 03/29/2023 Disc displacement, lumbar 03/29/2023 Gastro-esophageal reflux disease without esophagitis 03/29/2023 Generalized anxiety disorder 03/29/2023 Hallux valgus (acquired), left foot 03/29/2023 Hyperlipidemia 03/29/2023 Hypothyroidism 03/29/2023 Lumbar radiculopathy 03/29/2023 Lupus anticoagulant disorder ([facility]) 03/29/2023 Occipital neuralgia 03/29/2023 Other chronic pain [...] status 12/07/2021 Anticoagulation management encounter 09/05/2013 Asthma ([facility]) 07/26/2023 Back pain 07/26/2023 CAD (coronary artery disease) 09/27/2016 Cataract 07/26/2023 Cerebrovascular accident (CVA) ([facility]) 09/13/1994 TIA (transient ischemic attack) 07/26/2023 Chronic antral gastritis 06/02/2017 Chronic rhinitis 11/21/2018 Deep vein thrombosis (DVT) ([facility]) 05/18/2019 Delirium 10/29/2021 Depression 07/26/2023 Displacement of [...] status migrainosus 11/25/2015 Iron deficiency anemia 04/12/2014 [facility] (current) use of 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 11/24/2021 Obesity (BMI [...] 05/09/2024 Chronic kidney disease, stage 3 unspecified ([facility]) 10/23/2021 Constipation, unspecified 10/23/2021 Contusion of left [...] injury to lower extremity 10/28/2021 Obesity, morbid ([facility]) 01/29/2025 Resolved Ambulatory Problems Diagnosis Date Noted No Resolved Ambulatory Problems Past Medical History: Diagnosis Date Antiphospholipid syndrome (HHS-HCC) 07/28/2013 Blood clot in vein Broken ribs Cataract of left eye, unspecified cataract type 06/18/2016 Chronic gastritis Connective tissue disease (HCC) Demyelinating disease ([facility]-H[facility]) 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[facility]) Fibromyalgia FO (foramen ovale) ([facility]) H/O exercise stress test 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/2011 [...] Peripheral vision loss Pseudotumor cerebri Stroke (cerebrum) ([facility]) Stroke (HCC) Thoracic back pain Undifferentiated connective tissue disease (HCC) HISTORY PAST MEDICAL HISTORY SOCIAL HISTORY Past Medical History: Diagnosis Date Anemia Antiphospholipid syndrome ([facility]) 07/28/2013 Blood clot in vein R arm and L leg Broken ribs Cataract of left eye, unspecified cataract type 06/18/2016 Chronic gastritis Connective tissue disease (HCC) Demyelinating disease ([facility]-H[facility]) 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[facility]) Depression Fibromyalgia FO (foramen ovale) ([facility]) 01/29/2012 Repeated 03/30/2013 H/O exercise stress test [...] replacement 11/09/2017 Lumbar radiculopathy Lupus anticoagulant disorder ([facility]) Medication reaction 01/19/2011 Medication reaction [place] (weaned off 10/21/2016 - 10/28/2016) Memory loss Migraine / RO TIA, 09/26/2016 Occipital neuralgia 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/23/2013 Osteoarthritis Paresthesia Peripheral vision loss Presence of vena cava filter 01/02/2015 Pseudotumor cerebri Stroke (cerebrum) ([facility]) Stroke ([facility]) Thoracic back pain TIA (transient ischemic attack) 10/03/2011 ; 02/01/2014 Undifferentiated connective tissue disease ([facility]) Social History Tobacco Use Smoking status: Never [...] nursing note reviewed. Exam conducted with a crab butcher present. Vitals: Estimated body mass index is [...] them. Patient can also view results via AF83. I reinforced importance of condom use for [...] of: Kobi Latham DO documented in this encounterMercy hospital springfieldQlvarqgjac19-79-2975 History of Present illness Narrative* Luz Marina De Santiago, [facility] - 07/03/2025 9:00 AM EDT 15 minute odes-nr-dgpc follow-up anticoagulation appointment. INR performed in office [...] MEDICAL CENTER 07/03/25 0900 documented in this [facility]10-03-2025 Miscellaneous Notes* Telephone Encounter - Jessa Rojo - 06/15/2025 10:24 AM EDT Patient called to inform that all the Lovenox that she had at home has . She needs a RX for the Lovenox 100 mg sent to [facility] P:[phone]. For all doses for her bridging. * Telephone Encounter - Luz Marina De Santiago RP - 06/15/2025 10:24 AM EDT Noted. Lovenox sent to [facility] per request. Luz Marina De Santiago PharmD, [facility] June 15, 2025 11:26 AM documented in this encounterSelect Medical Specialty Hospital [facility]10-03-2025 Telephone encounter Note* Telephone Encounter - Jessa Rojo - 06/15/2025 10:24 AM EDT Patient called to inform that all the Lovenox that she had at home has . She needs a RX for the Lovenox 100 mg sent to [facility] P:[phone]. For all doses for her bridging. [facility]10-03-2025 Telephone encounter Note* Telephone Encounter - Luz Marina De Santiago RP - 06/15/2025 10:24 AM EDT Noted. Lovenox sent to [facility] per request. Luz Marina De Santiago PharmD, [facility] June 15, 2025 11:26 AM [facility]09-29-2025 Note [id number]#1.00OTGTCleveland Clinic Foundation09-26-2025 [facility] SURGERY Clinical Discharge Summary PERSON INFORMATION Name NOEMI BRAND Age 65 Years 1960 Sex FEMALE Language Zambian PCP ALEXANDER CHEN Marital Status Med Service Pain Management Surgery Acct# Arrival 06/08/2025 09:09:03 Visit Reason Lumbosacral Spondylosis Acuity LOS 009 22:45 Address: [address] [place] [address] Comment: PROVIDER INFORMATION VITALS INFORMATION Vital Sign [...] Oil) 2400mg daily. panto (more content not included)...[facility] CenterMzykboeu14-90-4837 Note [id number]#1.00OTGTIFF The patient?s history of present illness, physical findings and plan of care have been reviewed. There are no changes. [Electronically Signed on: 06/08/2025 09:40 EDT] LINA SCHWAB MD [Electronically Signed on: 06/08/2025 09:35 EDT] Trista Menezes RN [Verified on: 06/08/2025 09:40 EDT] LINA SCHWAB MD [Transcribed on: 06/07/2025 10:37 EDT] [facility]09-25-2025 History of Present illness Narrative* Luz Marina De Santiago, [facility] - 06/07/2025 10:30 AM EDT 15 minute axod-cu-xkrj follow-up anticoagulation appointment. INR performed in office [...] of therapy reviewed Patient could benefit from [facility] pill packaging and patient is [...] MEDICAL CENTER 06/07/25 1137 documented in this encounterSelect Medical Specialty Hospital [facility]09-16-2025 Miscellaneous Notes* Telephone Encounter - Kimber Anderson MA - 05/29/2025 10:46 AM EDT Patient called. She is scheduled for a procedure on 06/08/25 to burn the nerve endings in the back on both sides with Dr. Nilesh Schwab at [facility] (P: [phone]). She does not need to hold her Warfarin, however needs an INR drawn the day before. The INR needs to be 3.0 or below. Her INR appointment was r/s from 06/01 to 06/07/25. Patient states Dr. Schwab sent clearance to Dr. Chen. Contactpatient at [phone] with any questions. * Telephone Encounter - Luz Marina De Santiago [facility] - 05/29/2025 10:46 AM EDT Noted. INR has been running on the high end of range, therefore recommend taking 2.5 mg on 06/05 to help ensure INR goal is met. Called patient at [phone] with one time dose adjustment. Patient v/u of this change. Encouraged to call with any further needs. Luz Marina De Santiago PharmD, BCPS May 29, 2025 12:45 PM documented in this encounterSelect Medical Specialty [facility]09-16-2025 Telephone encounter Note* Telephone Encounter - Kimber Anderson MA - 05/29/2025 10:46 AM EDT Patient called. She is scheduled for a procedure on 06/08/25 to burn the nerve endings in the back on both sides with Dr. Nilesh Schwab at [facility] (P: [phone]). She does not need to hold her Warfarin, however needs an INR drawn the day before. The INR needs to be 3.0 or below. Her INR appointment was r/s from 06/01 to 06/07/25. Patient states Dr. Schwab sent clearance to Dr. Chen. Contactpatient at [phone] with any questions. [facility] [employer] [id number] Telephone encounter Note* Telephone Encounter - Luz Marina De Santiago [facility] - 05/29/2025 10:46 AM EDT Noted. INR has been running on the high end of range, therefore recommend taking 2.5 mg on 06/05 to help ensure INR goal is met. Called patient at [phone] with one time dose adjustment. Patient v/u of this change. Encouraged to call with any further needs. Luz Marina De Santiago, PharmD, [facility] May 29, 2025 12:45 PM [facility] Work Phone: [phone] History of Present illness Narrative* Hossein Wong, [facility] - 04/20/2025 8:45 AM EDT 15 minute qyqe-eh-aqjc follow-up anticoagulation appointment. INR performed in office [...] Wong RPH 04/20/25 0848 documented in this encounterSelect Medical Specialty Hospital [facility]07-11-2025 History of Present illness Narrative* Mauro Levin [...] marked decrease from their previous daily or kqhjt-xndlg-ehh frequency. She continues to receive injections from [...] verapamil and Ubrelvy will be sent to [facility]. She is advised to continue her current [...] months. This clinical note was created utilizing Giraffic documentation system. All information has beenthoroughly reviewed, corrected as necessary, and authenticated by the provider to ensure accuracy and completeness. On occasion, Gira[employer] documentation system erroneously drops words or replaces aspoken word with a similar sounding word. Please notify with any questions or concerns regarding this clinical note. documented in this encounterMercy hospital springfieldAjeqoocrxh10-57-3147 History of Present illness Narrative* Hossein Wong RPH - 03/23/2025 9:00 AM EDT 15 minute lmqj-hf-wzio follow-up anticoagulation appointment. INR performed in office [...] Wong RPH 03/23/25 0907 documented in this [facility]07-11-2025 Miscellaneous Notes* Addendum Note - Hossein Wong RPH - 03/23/2025 9:00 AM EDTAddended by: HOSSEIN WONG on: 03/23/2025 09:20 AM Modules accepted: Orders documented in this [facility]07-11-2025 Note* Addendum Note - Hossein Wong RPH - 03/23/2025 9:00 AM EDTAddended by: HOSSEIN WONG on: 03/23/2025 09:20 AM Modules accepted: Orders [facility]06-24-2025 History of Present illness Narrative* Zoe MAYTE [...] 07/20/24 96.8 kg (213 lb 6.4 oz) [place] Body Weight [place] body weight: 59.3 kg (130 lb 11.7 oz) Adjusted ideal body weight: 74.8 kg (164 lb 13.4 oz) Lab Results: POCT A1c No results found for: BHTSKST2A A1c Lab Results Component Value Date HGBA1C [...] (Patient-Rptd) (P) 1200 Lunch Meal:: (Patient-Rptd) (P) [place] Dinner Time:: (Patient-Rptd) (P) 1702 Dinner Meal:: [...] Diabetes and Nutrition Education documented in this encounterSelect Medical Specialty Hospital [facility]06-06-2025 History of Present illness Narrative* Hossein Wong, [facility] - 02/16/2025 8:45 AM EDT 15 minute ielk-zj-qkmf follow-up anticoagulation appointment. INR performed in office [...] Wong RPH 02/16/25 0850 documented in this encounterSelect Medical Specialty [facility]05-21-2025 Miscellaneous Notes* Telephone Encounter - Anabell Jackson [...] EDT New referral signed documented in this [facility]-21-2025 Telephone encounter Note* Telephone Encounter - Anabell Jackson - 01/31/2025 10:36 AM EDT We received a referral for education on Noemi Brand 1960. However per [facility] Guidelines we need to have the services requested marked as such on referral. Please see pended order and sign if you are agreeable. Thank you [facility] Diabetes and Nutrition Education [facility]05-21-2025 Telephone encounter Note* Telephone Encounter - Anabell Manuel - 01/31/2025 10:36 AM EDT [facility] [id number] History of Present illness Narrative* Alexander Chen, [...] Future - Hemoglobin A1c 5. Obesity, morbid ([facility]) -overall stable -patient has multiple other problems requiring precedence 6. Bipolar II disorder ([facility]) -keep appointment with Psychiatry -current regimen including bupropion, BuSpar, and Ambien 7. Chronic deep vein thrombosis (DVT) of proximal vein of lower extremity, unspecified laterality ([facility]) -related to lupus anticoagulant disorder -on warfarin for long-term thromboembolism prophylaxis 8. Systemic lupus erythematosus ([facility]) -stable -keep appointment with Rheumatology 9. Lupus [...] valsartan, verapamil, propanolol. Blood pressures at home tymqcdkhb337-482-82-31 mmHg. No lightheadedness. Home BP log was [...] mg total) by mouth., Disp: , Rfl: lsxcqppzqz-qzsjfutieg-npy-cod (FIORICET WITH CODEINE) 08-527-78-30 mg per capsule, Take 1 capsule by [...] 10 mg tablet, , Disp: , Rfl: omsplwtnbm-pndnixrqjjicy-rpcx (FIORICET, ESGIC) 50-325-40 mg per tablet, Take [...] Testing No results found. Alexander Chen DO., [facility] Office: [phone] documented in this encounterSelect Medical Specialty [facility]05-09-2025 History of Present illness Narrative* Hossein Nataly, [facility] - 01/19/2025 8:45 AM EDT 15 minute pihj-rt-pjaw follow-up anticoagulation appointment. INR performed in office [...] MEDICAL CENTER 01/19/25 0850 documented in this encounterSelect Medical Specialty [facility]04-11-2025 History of Present illness Narrative* Hossein Wong [facility] - 12/22/2024 9:15 AM EDT 15 minute cguo-cs-qqmv follow-up anticoagulation appointment. INR performed in office [...] MEDICAL CENTER 12/22/24 0910 documented in this encounterSelect Medical Specialty [facility]03-14-2025 History of Present illness Narrative* Luz Marina De Santiago, [facility] - 11/24/2024 9:15 AM EDT 15 minute lkjk-tr-pqsw follow-up anticoagulation appointment. INR performed in office [...] MEDICAL CENTER 11/24/24 0953 documented in this encounterSelect Medical Specialty [facility]02-14-2025 History of Present illness Narrative* Luz Marina De Santiago RP - 10/27/2024 9:30 AM EST 15 minute wgpk-ys-ozvp follow-up anticoagulation appointment. INR performed in office [...] MEDICAL CENTER 10/27/24 0927 documented in this encounterSelect Medical Specialty [facility]01-17-2025 History of Present illness Narrative* Luz Marina De Santiago [facility] - 09/29/2024 9:00 AM EST 15 minute oieh-sn-ebbw follow-up anticoagulation appointment. INR performed in office [...] MEDICAL CENTER 09/29/24 0858 documented in this encounterSelect Medical Specialty [facility]01-10-2025 History of Present illness Narrative* Mauro Levin [...] bedtime for 30 days Allergies Allergen Reactions [place] Hives Other Reaction(s): Unknown PT. SAYS SHE [...] disorder (CMS/HCC) Medication reaction 01/19/2011 Medication reaction [place] (weaned off 10/21/2016 - 10/28/2016) Memory loss Migraine ([facility] / RO TIA, 09/26/2016 Occipital neuralgia 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/23/2013 Osteoarthritis Paresthesia Peripheral vision loss Presence of vena cava filter 01/02/2015 Pseudotumor cerebri Stroke (cerebrum) ([facility]) Stroke ([facility] [facility] [place] Thoracic back pain TIA (transient ischemic attack) 10/03/2011 ; 02/01/2014 Undifferentiated connective tissue disease ([facility] [place] Past Surgical History: Procedure Laterality Date ANTERIOR [...] Depression: Not at risk (07/20/2024) Received from [facility] PHQ-2 Total Score: 0 Recent Concern: Depression - At risk (05/09/2024) Received from [facility] PHQ-2 Total Score: 4 REVIEW OF SYMPTOMS: [...] reflexes: Vikki's absent. Ankle clonus absent. Coordination Opiumm-vu-xdrq, rapid alternating movements and hmsa-er-jojy normal bilaterally without dysmetria. Gait Normal casual, [...] Follow up 3 months. documented in this encounterMer[facility] [id number] History of Present illness Narrative* Hossein Wong, [facility] - 09/20/2024 9:15 AM EST 15 minute dsqw-vs-wzom follow-up anticoagulation appointment. INR performed in office per protocol. INR 2.9 (goal range: 2.0-3.0). Patient reports: Taking warfarin dosing as documented. Missed or extra doses of warfarin: No Changes to medications: Not yet, BUT Pt's electrician third wants her to start taking One A [...] will continue same dose, but under pt's electrician third recommendation, pt is going to start a [...] [facility] 09/20/24 0933 [facility] History of Present illness Narrative* Hossein Wong RP - 09/01/2024 8:30 AM EST 15 minute tthv-ed-ccmn follow-up anticoagulation appointment. INR performed in office per protocol. INR 3.4 (goal range: 2.0-3.0). Patient reports: Taking warfarin dosing as documented. Missed or extra doses of warfarin: No Changes to medications: Not yet, BUT Pt's electrician third wants her to start taking One A [...] Wong RPH 09/01/24 0836 documented [facility] Hospital Discharge instructions Patient Education 08/29/2024 11:37:01 [...] Follow these instructions at home: Medicines Take bgta-qcp-xuvzhxd and prescription medicines only as told by [...] provider. Document Revised: 12/09/2022 Document Reviewed: 12/09/2022 [employer] Patient Education 2023 [email or web address]. Follow Up Care 08/25/2023 13:49:16 With:GERRY SAPP, ANDRE Miller, URL Address: [address] [place] [address] When:Within 1 Year(s) [facility] 12-17-2024 NotePatient Education Urology Kidney [...] these instructions at home: Medicines ??? Take bjgv-xab-wxlfqbz and prescription medicines only as told by [...] urine pale yellow. Thi (more content not included)...[facility]10-14-2024 History of Present illness Narrative* Jamia Aburto, TICKETING CLERK - 06/26/2024 2:00 PM EDT Reason for Appointment: Patient ID: Noemi Brand is a 64 y.o. female who presents for [facility] Women Visit Patient presents today for Annual [...] (Wellbutrin XL) 300 MG 24 hr tablet cyenoyuruc-dtkaszdhjieks-kllztafa (Esgic) 50-325-40 MG tablet 1 tablet, Oral, [...] for 30 days ALLERGIES Allergies Allergen Reactions [place] Hives Other Reaction(s): Unknown PT. SAYS SHE [...] Date Noted Ataxia 03/29/2023 Bipolar 1 disorder ([facility] [place]) 03/29/2023 Bipolar II disorder ([facility] [place]) 03/29/2023 Blood coagulation disorder ([facility] [place]) 03/29/2023 Migraine without aura and without status migrainosus, not intractable ([facility] [place]) 03/29/2023 Cognitive impairment 03/29/2023 Inattention 03/29/2023 Degeneration of lumbar intervertebral disc 03/29/2023 Disc displacement, lumbar 03/29/2023 Gastro-esophageal reflux disease without esophagitis 03/29/2023 Generalized anxiety disorder ([facility] [place]) 03/29/2023 Hallux valgus (acquired), left foot 03/29/2023 Hyperlipidemia ([facility] [place]) 03/29/2023 Hypothyroidism ([facility] [place]) 03/29/2023 Lumbar radiculopathy 03/29/2023 Lupus anticoagulant disorder ([facility] [place]) 03/29/2023 Occipital neuralgia 03/29/2023 Other chronic pain 03/29/2023 Panic disorder with agoraphobia ([facility] [place]) 03/29/2023 Primary osteoarthritis of left foot 03/29/2023 Refractory migraine with aura ([facility] [place]) 03/29/2023 Sacroiliitis, not elsewhere classified ([facility] [place]) 03/29/2023 Sensorineural hearing loss, bilateral 03/29/2023 Spondylosis of lumbar region without myelopathy or radiculopathy 03/29/2023 Bilateral tinnitus 03/29/2023 Tinnitus 03/29/2023 Acquired blindness of one eye 01/15/2016 Acute metabolic encephalopathy 09/27/2016 Altered mental status 12/07/2021 Anemia 07/26/2023 Anticoagulation management encounter 09/05/2013 Asthma ([facility] [place]) 07/26/2023 Back pain 07/26/2023 CAD (coronary artery disease) ([facility] [place]) 09/27/2016 Cataract 07/26/2023 Cerebrovascular accident (CVA) ([facility] [place]) 09/13/1994 TIA (transient ischemic attack) 07/26/2023 Chronic antral gastritis 06/02/2017 Chronic rhinitis 11/21/2018 Deep vein thrombosis (DVT) ([facility] [place]) 05/18/2019 Delirium 10/29/2021 Depression ([facility] [place]) 07/26/2023 Displacement of lumbar intervertebral disc without myelopathy 03/25/2018 Fibromyalgia, primary 05/20/2022 Generalized osteoarthritis 05/20/2022 Glaucoma ([facility] [place]) 11/02/2019 H/O: CVA (cerebrovascular accident) 09/27/2016 Hematoma 10/06/2021 History of 2019 novel coronavirus disease (COVID-19) 10/29/2021 History of blood transfusion 09/13/2012 History of cardiac cath 09/13/1998 History of deep venous thrombosis 09/05/2013 Hypertension ([facility] [place]) 05/20/2022 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 ([facility] [place]) 05/20/2022 Intractable chronic migraine without aura and without status migrainosus ([facility] [place]) 11/25/2015 Iron deficiency anemia 04/12/2014 [facility] (current) use of 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 11/24/2021 Obesity (BMI 30.0-34.9) 02/15/2019 Nephrolithiasis 05/20/2022 Misuse of prescription only drugs 07/26/2023 Mild persistent asthma ([facility] [place]) 06/16/2016 Migraine ([facility] [place]) 05/18/2019 Lumbosacral spondylosis without myelopathy 03/25/2018 Ischemic optic neuropathy 08/30/2013 Optic neuropathy 05/10/2013 Other optic atrophy, right eye 01/15/2016 Polypharmacy 09/27/2016 Presence of vena cava filter 05/20/2022 Osteoarthritis of left hip 11/09/2017 Degenerative joint disease (DJD) of hip 11/09/2017 Primary osteoarthritis of right hip 08/30/2018 Systemic lupus erythematosus ([facility] [place]) 05/29/2013 Thoracic spinal stenosis 03/24/2019 Headache 11/26/2023 Chronic deep vein thrombosis (DVT) of proximal vein of lower extremity ([facility] [place]) 05/09/2024 Chronic kidney disease, stage 3 unspecified ([facility] [place]) ([facility] [place]) 10/23/2021 Constipation, unspecified 10/23/2021 Contusion of left [...] Past Medical History: Diagnosis Date Antiphospholipid syndrome ([facility] [place]) 07/28/2013 Blood clot in vein Broken ribs Cataract of left eye, unspecified cataract type 06/18/2016 Chronic gastritis Connective tissue disease ([facility] [place]) Demyelinating disease ([facility] [place]) 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[facility] [place]) Fibromyalgia FO (foramen ovale) H/O exercise stress test Cristi's thyroiditis ([facility] [place]) 09/18/2011 High cholesterol ([facility] [place]) History of History of cystoscopy History of [...] disorder (CMS/HCC) Medication reaction 01/19/2011 Medication reaction [place] (weaned off 10/21/2016 - 10/28/2016) Memory loss Migraine (CMS/HCC) / RO TIA, 09/26/2016 Occipital neuralgia 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/23/2013 Osteoarthritis Paresthesia Peripheral vision loss Presence of vena cava filter 01/02/2015 Pseudotumor cerebri Stroke (cerebrum) (CMS/HCC) Stroke (CMS/HCC) Thoracic back pain TIA (transient ischemic attack) 10/03/2011 ; 02/01/2014 Undifferentiated connective tissue disease ([facility]) Social History Tobacco Use Smoking status: Never [...] nursing note reviewed. Exam conducted with a crab butcher present. Vitals: Estimated body mass index is [...] of: Kobi Latham DO documented in this [facility]10-03-2024 Telephone encounter Note* Telephone Encounter - Sofia Coulter NP - 06/15/2024 4:30 PM EDT I am resending Fioricet correct dose as the reason likely denied is the 300 mg of tylenol instead of 325 mg and that would have been my error. I called patient and let her know. [id number] Miscellaneous Notes* Telephone Encounter - Sofia Coulter [...] if something different can be sent to [facility] in [place] or [employer]. documented in this [facility]10-03-2024 Telephone encounter Note* Telephone Encounter - Teresa Rios - 06/15/2024 4:07 PM EDT Patient left message stating that she faxed a letter she received on Wednesday that gave alternative prescriptions. Checking on status if something different can be sent to [facility] in [place] or [employer] [place]. [id number] Telephone encounter Note* Telephone Encounter - Sofia Coulter NP - 06/07/2024 10:41 PM EDT OARRS reviewed. [id number] Miscellaneous Notes* Telephone Encounter - Sofia Coulter NP - 06/07/2024 10:41 PM EDT OARRS reviewed. documented in this encounterMercy hospital [id number] History of Present illness Narrative* Melva Mcarthur [...] [facility] and [facility]. No other concerns today. CURRENT MEDICATIONS: ALLERGIES/DISCONTINUE [...] bedtime for 30 days Allergies Allergen Reactions [place] Hives Other Reaction(s): Unknown PT. SAYS SHE [...] Medications Discontinued During This Encounter Medication Reason qbqtmymydl-feakmymsfnafx-mxpimylz-codeine (Fioricet W/Codeine) 50-140-09-30 MG capsule PAST MEDICAL HISTORY: SURGICAL/SOCIAL/FAMILY HISTORY [...] disorder (CMS/HCC) Medication reaction 01/19/2011 Medication reaction [place] (weaned off 10/21/2016 - 10/28/2016) Memory loss Migraine (CMS/HCC) / RO TIA, 09/26/2016 Occipital neuralgia 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/23/2013 Osteoarthritis Paresthesia Peripheral vision loss Presence of vena cava filter 01/02/2015 Pseudotumor cerebri Stroke (cerebrum) (CMS/HCC) Stroke (CMS/HCC) Thoracic back pain TIA (transient ischemic attack) 10/03/2011 ; 02/01/2014 Undifferentiated connective tissue disease ([facility] [place] Past Surgical History: Procedure Laterality Date ANTERIOR [...] Sibling Depression: At risk (05/09/2024) Received from [facility] PHQ-2 Total Score: 4 REVIEW OF SYMPTOMS: [...] reflexes: Vikki's absent. Ankle clonus absent. Coordination Jxdvhj-mi-abab, rapid alternating movements and bvyz-ii-eegf normal bilaterally without dysmetria. Gait Normal casual, [...] Follow up 3 months documented in this encounterMercy hospital [id number] Hospital Discharge instructions Patient Education 08/25/2022 13:32:50 Kidney Stones, Bjva-ov-[place] Kidney Stones Kidney stones are rock-like masses [...] Follow these instructions at home: Medicines Take mqgw-pfi-lvstmcd and prescription medicines only as told by [...] 02/15/2009 Document Revised: 01/16/2020 Document Reviewed: 01/16/2020 [employer] Patient Education 2020 [email or web address]. Follow Up Care 08/12/2021 11:07:07 With:ANDRE MCNEIL PA-C, URL Address: When:1 year [facility] evaluation + Plan note Future Appointments Appointment Date:08/25/2023 01:00:00 PM Scheduled Provider:ANDRE MCNEIL PA-C Location:[facility] Appointment Type:URO Office Visit [facility] evaluation + Plan note Future Appointments Appointment Date:08/29/2024 10:00:00 AM Scheduled Provider:ANDRE CMNEIL PA-C Location:[facility] Appointment Type:URO Office Visit Diagnostic Tests Pending * Urine Culture [facility] Future Appointments Appointment Date:08/29/2024 10:00:00 AM Scheduled Provider:ANDRE MCNEIL PA-C Location:[facility] Appointment Type:URO Office Visit [facility] evaluation + Plan note Future Appointments Appointment Date:08/29/2024 10:00:00 AM Scheduled Provider:ANDRE MCNEIL PA-C Location:[facility] Appointment Type:URO Office Visit Diagnostic Tests Pending * Urine Culture [facility] Future Appointments Appointment Date:08/29/2024 10:00:00 AM Scheduled Provider:ANDRE MCNEIL PA-C Location:[facility] Appointment Type:URO Office Visit Diagnostic Tests Pending * Calculi Analysis Urinary [facility] Future Appointments Appointment Date:08/30/2025 09:40:00 AM Scheduled Provider:ANDRE MCNEIL PA-C Location:[facility] Appointment Type:URO Office Visit [facility] evaluation noteNo assessment information available [facility] Work Phone: Evaluation note* Diagnosis Migraine without [...] not intractable (CMS/HCC) documented in this encounter [facility]* Diagnosis Lumbar radiculopathy Thoracic or lumbosacral neuritis or radiculitis, unspecified documented in this encounter [facility] HealthcareEvaluation note* Diagnosis [facility] (current) use of 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- Primary Long-term (current) use of 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 [facility] Diagnosis [facility] (current) use of 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- Primary Long-term (current) use of 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 [facility]* Diagnosis Migraine without aura and without status migrainosus, not intractable (CMS/HCC) documented in this encounter [facility]* Diagnosis Gastroesophageal reflux disease, [...] Diagnosis Mixed hyperlipidemia documented in this [facility]* Diagnosis Mixed hyperlipidemia [facility]* Diagnosis Gastroesophageal reflux disease, unspecified whether esophagitis present Cervical spondylosis with radiculopathy Cervical spondylosis with myelopathy documented [facility] encounter [facility]* Diagnosis Essential hypertension Unspecified essential hypertension documented [facility]* Diagnosis Migraine without aura and without status migrainosus, not intractable ([facility])- Primary documented in this encounter [facility] HealthcareEvaluation [facility]* Diagnosis [facility] (current) use of 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- Primary Long-term (current) use of 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 documented [facility]* Diagnosis Gastroesophageal reflux disease, unspecified whether esophagitis present documented [facility] encounter [facility]* Diagnosis Essential hypertension- Primary Unspecified essential hypertension 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 Mixed hyperlipidemia IFG (impaired fasting glucose) Obesity, morbid ([facility] [place]) Morbid obesity Bipolar II disorder ([facility] [place]) Other bipolar disorders Chronic deep vein thrombosis (DVT) of proximal vein of lower extremity, unspecified laterality ([facility] [place]) Systemic lupus erythematosus ([facility] [place]) Lupus anticoagulant disorder Primary hypercoagulable state Mild persistent asthma without complication Gastroesophageal reflux disease, unspecified whether esophagitis present Special screening for malignant neoplasm of colon Special screening for malignant neoplasms, colon documented in this encounter [facility]* Diagnosis Type 2 diabetes mellitus without complication, without long-term current use of insulin ([facility])- Primary documented in this encounter [facility]* Diagnosis Mild persistent asthma without complication documented in this [facility]* Diagnosis 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- Primary Long-term (current) use of 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 documented in this encounter [facility]* Diagnosis Type 2 diabetes mellitus without complication, without long-term current use of insulin ([facility] [place]) documented in this encounter [facility]* Diagnosis [facility] (current) use of 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- Primary Long-term (current) use of 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 Lupus anticoagulant disorder Primary hypercoagulable state documented in this encounter [facility]* Diagnosis Migraine without aura and without status migrainosus, not intractable- Primary documented in this encounter [facility] HealthcareEvaluation note* Diagnosis Migraine without aura and without status migrainosus, not intractable [facility]* Diagnosis Essential hypertension Unspecified essential hypertension [facility] Diagnosis [facility] (current) use of 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- Primary Long-term (current) use of 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 documented [facility] this [facility]* Diagnosis Migraine without aura and without status migrainosus, not intractable documented [facility] this [facility]* Diagnosis Gastroesophageal reflux disease, unspecified whether esophagitis present documented [facility] this [facility]* Diagnosis 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- Primary Long-term (current) use of 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 Screen for colon cancer Special screening for malignant neoplasms, colon documented in this [facility]* Diagnosis Lupus anticoagulant disorder- Primary Primary hypercoagulable state Personal history of DVT (deep vein thrombosis) Personal history of venous thrombosis and embolism Screen for colon cancer Special screening for malignant neoplasms, colon documented in this [facility] Diagnosis Mixed hyperlipidemia documented in this [facility]* Diagnosis 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- Primary Long-term (current) use of 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 documented [facility] this [facility]* Diagnosis Encounter for subsequent annual wellness visit (AWV) in Medicare patient- Primary Encounter for screening mammogram for malignant neoplasm of breast documented in this encounter [facility]* Diagnosis Well woman exam with routine gynecological exam Routine gynecological examination Breast cancer screening by mammogram Postmenopausal state Asymptomatic postmenopausal status (age-related) (natural) documented in this encounter [facility]* Diagnosis Hypothyroidism, unspecified type documented in this encounter [facility]* Diagnosis 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- Primary Long-term (current) use of 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 documented [facility] this [facility]* Diagnosis Cervical spondylosis with radiculopathy Cervical spondylosis with myelopathy documented in this encounter [facility] Narrative No data available for this section [facility] Discharge instructions No data available for this section [facility] HospitalInstructionsNot on filedocumented in this encounter [facility]Not on filedocumented in this encounter [facility] [...] available for this section [facility] Discharge Instructions * Discharge Instr [...] If you have selected to use the [employer] Unit, the hip wrap was placed on [...] will return the [employer] Unit to our [place] office at your 2 week follow up [...] your surgery date, please call us at [phone] Preoperative Medication Instructions In preparation for surgery please continue all of your current medications with the following changes: Noemi Brand Home Medication Instructions Prior to Surgery ZACK:[id number] Printed on:10/21/17 1250 Medication Information Take last [...] every morning TAKES 1 TABLET . NO fcdouil-rwnyeanmcu-QJG-caff (qjafwfpggs-ldkbuqb-uouqaant-codeine) capsule Take 1 capsule by mouth continuous [...] medications that contain aspirin, such as Danielle [place], Pepto- Bismol, Anacin), antiinflammatory medications such as Advil, Motrin, Ibuprofen, Naproxen, Aleve, Danielle [place], Pepto-Bismol,Anacin, Diclofenac, Voltaren, Daypro, Etodolac, Ketoprofen, Piroxicam, Relafen, Nabumetone, etc. THESE SHOULD NOT BE USED WHEN TAKING COUMADIN (WARFARIN). Also discontinue Vitamin C, Vitamin E, Newcomb-3 Fatty Acid, Fish Oil or Lovaza, and [...] Noemi Brand Admit Date: [id number] MR #: [id number] : 1960 The H&P has been reviewed [...] surgery-11/09; LEFT TOTAL HIP ARTHROPLASTY ANTERIOR APPROACH [facility] Main OR pending laboratory. ECG 12 [...] acceptable cardiac risk based on the 2014 [place] [employer] (ACC/AHA) guideline on Perioperative Cardiovascular [...] Therapy and Prevention of Thrombosis, 9th ed: [employer] Evidence-Based Clinical Practice [...] 11/09; LEFT TOTAL HIP ARTHROPLASTY ANTERIOR APPROACH [facility] Main OR . Patient states she [...] History: Diagnosis Date Anemia Asthma Bipolar Disorder ([facility]) Cataract Deep vein thrombosis ([facility] [place]) 1994 S/P IN LEG, RIGHT ARM, AND THROAT; 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 Depression Fibromyalgia, primary GERD (gastroesophageal reflux disease) Headache MIGRAINES History of blood transfusion History of stress test 2012 Hyperlipidemia Hypothyroidism Nephrolithiasis Osteoarthritis of left hip Presence of vena cava filter Stroke ([facility]) 1994 Past Medical History Pertinent Negatives: Diagnosis Date Noted Bleeding disorder (HCC) 09/17/2016 Blood transfusion reaction 09/17/2016 CHF (congestive heart failure) ([facility]) 10/21/2017 Complication of anesthesia 09/17/2016 Coronary artery disease 09/17/2016 Diabetes mellitus type I ([facility]) 09/17/2016 Diabetes mellitus, type 2 ([facility]) 09/11/2016 Hard to intubate 09/17/2016 Hypertension 09/17/2016 Malignant hyperthermia due to anesthesia 09/17/2016 No blood products 09/17/2016 PONV (postoperative nausea and vomiting) 10/21/2017 Rheumatoid arthritis ([facility]) 10/18/2017 Sleep apnea, obstructive 09/17/2016 Past [...] Units, Oral, Every morning, TAKES 1 TABLET sinswxs-ywwsdeatgp-DXT-caff (awlzwttsks-gpwdegv-kxbgkjig-codeine) capsule Take 1 capsule by mouth continuous [...] Subcutaneous, Every 12 hours Allergies Allergen Reactions [place] Other (See Comments) COMA Zoloft [Sertraline] Other [...] surgery-11/09; LEFT TOTAL HIP ARTHROPLASTY ANTERIOR APPROACH [facility] Main OR pending laboratory. ECG 12 [...] acceptable cardiac risk based on the 2014 [employer] (ACC/AHA) guideline on Perioperative Cardiovascular [...] Therapy and Prevention of Thrombosis, 9th ed: [employer] Evidence-Based Clinical Practice [...] 11/09; LEFT TOTAL HIP ARTHROPLASTY ANTERIOR APPROACH [facility] Main OR . Patient states she [...] History: Diagnosis Date Anemia Asthma Bipolar Disorder ([facility]) Cataract Deep vein thrombosis ([facility]) 1994 S/P IN LEG, RIGHT ARM, AND THROAT; 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 Depression Fibromyalgia, primary GERD (gastroesophageal reflux disease) Headache MIGRAINES History of blood transfusion History of stress test 2012 Hyperlipidemia Hypothyroidism Nephrolithiasis Osteoarthritis of left hip Presence of vena cava filter Stroke ([facility]) 1994 Past Medical History Pertinent Negatives: Diagnosis Date Noted Bleeding disorder ([facility]) 09/17/2016 Blood transfusion reaction 09/17/2016 CHF (congestive heart failure) ([facility]) 10/21/2017 Complication of anesthesia 09/17/2016 Coronary [...] Units, Oral, Every morning, TAKES 1 TABLET yggasco-eyoyrpuryu-WKR-caff (gonxlmdcep-xvkvjul-cobmcbwd-codeine) capsule Take 1 capsule by mouth continuous [...] Subcutaneous, Every 12 hours Allergies Allergen Reactions [place] Other (See Comments) COMA Zoloft [Sertraline] Other [...] No Discharge Readiness Expected Discharge Date: 11/11/17 [facility] Disposition D/C Disposition: Home * Lucrecia [...] to Stand: Min Stand Pivot Transfers: [employer] Person: Walker Gait/Locomotion Gait Assistance: Contact guard Assistive [...] Accessible via walker Home Equipment: Cane, Walker, Compositor Apprentice (crutches) Additional Comments: did not use assistive device prior to admit Prior Level of Function Level of [place]: Independent with ADLs and functional transfers, Independent [...] hip Presence of vena cava filter Stroke ([facility]) 1994 Past Surgical History: Procedure Laterality Date ANTERIOR CERVICAL DISCECTOMY W/ FUSION ARTHROPLASTY TOTAL HIP ANTERIOR APPROACH Left 11/09/2017 Procedure: LEFT TOTAL HIP ARTHROPLASTY ANTERIOR APPROACH; Surgeon: Lina Elizabeth MD; Location: [facility] Main OR; Service: Orthopedic CATARACT EXTRACTION [...] of Physical Therapy Plan * Ignacio Centeno ZINC CHLORIDE OPERATOR - 11/09/2017 11:54 AM EST Patient LOC [...] - Cr 1.29. Seen by Dr. Arguello ([facility]) this morning and patient to follow-up for [...] CDI. Minimal Swelling. NVI. Moving the extremity. [place] and warm. Negative Saw's Sign. Cap refill less than 3 seconds. Psych: Mood and affect appropriate. Skin: No rashes; normal turgor. Intake/Output last 3 shifts: I/O last 3 completed shifts: In: 2771.2 [P.O.:2350; I.V.:221.2; IV Piggyback:200] Out: 3300 [Urine:3300] Results/Medications Reviewed 11/11/17 11:07 AM: Laboratory, Medications and Transcriptions * Op Note - Lina Elizabeth MD - 11/09/2017 4:37 PM NOEMI [facility] [id number] 1960 DATE 11/09/2017 OPERATIVE REPORT SURGEON LINA ELIZABETH MD INFORMATION TECHNOLOGY ARCHITECT ROSANGELA DUMONT PA-C There were no qualified [...] DVT prophylaxis. SPECIAL CONSIDERATIONS Rosangela Dumont, Physician Choker Hooker, should be billed as assistant federal public defender since there were no qualified residents available [...] correct. LINA ELIZABETH MD D 11/09/2017 08:58 [id number] T 11/09/2017 09:55 TJE/MODL cc Dr. Alexander Helms : * Op Note - Lina Elizabeth MD - 11/09/2017 8:58 AM EST [id number] * Brief Op Note - Lina Elizabeth MD - 11/09/2017 8:55 AM EST Formatting of this note may be different from the original. Brief Post Operative Note Patient Name: Noemi Brand : 1960 (57 y.o.) Date of Service: 11/09/2017 CSN: [id number] Procedure(s): LEFT TOTAL HIP ARTHROPLASTY ANTERIOR APPROACH Pre-Operative Diagnoses: * M16.12 Post-Operative Diagnoses: * same Surgeon(s) and Role: * Lina Elizabeth MD - Primary Anesthesiologist: Jn Cramer MD DATA MANAGEMENT MANAGER: Jan Hill CRNA Licensed Retail Supervisor: Ashley Salinas RN Physician Choker Hooker: Rosangela Dumont PA-C Scrub Person: Thuy House RN: Kasandra Guerra RN Operative findings: oa Intra and immediate post-operative complications: none Type of anesthesia used: Spinal Estimated blood loss: 400 mL Estimated urine output: 125 mL Specimen(s): * No specimens in log * Implant(s): Implant Name Type Inv. Item Serial No. Research Lab Assistant Lot No. LRB No. Used Action LINER 32MM C FLAT HIGHCROSS MPACT - [id number] LINER 32MM C FLAT HIGHCROSS MPACT MEDACTA [id number] Left 1 Implanted SHELL 48MM 2HL ACET MPACT - [id number] SHELL 48MM 2HL ACET MPACT MEDACTA [id number] Left 1 Implanted STEM SZ2 STD FEM PROX COAT TI AMISTEM-H - [id number] STEM SZ2 STD FEM PROX COAT TI AMISTEM-H MEDACTA [id number] Left 1 Implanted HEAD 32MM +4 FEM BIOLOX DELTA MECTACER - [id number] HEAD 32MM +4 FEM BIOLOX DELTA MECTACER MEDACTA [id number] Left 1 Implanted Drain(s): Urethral Catheter Non-latex 16 Fr. (Active) Wound(s): Incision 11/09/17 Hip Left (Active) Lina Elizabeth MD 11/09/2017 8:55 AM in this encounter Ev Strickland RN - 10/21/2017 12:33 PM EST Nursing Notes (unrecognized section and content) Patient Instructions for [facility]: Prior to surgery: Please be sure to wear loose, comfortable clothing and non-skid shoes Bring your health insurance information and a photo ID, as well as your Living Will or Durable Power of Photograph Mounter for Healthcare if it is available to you. Bring your cane/walker any applicable assistive device. If you currently use a CPAP, please bring this device with you on the day of surgery. Bring a list of your medications with the name of the medication, dose and how often you are takingit. Be sure to include herbal preparations and phwm-jhx-pxscmap medications on this list. Do not eat [...] of lotions, perfumes or powders. All nail setswana is to be removed from fingernails and [...] the day of your surgery/procedure. Parking at [facility] is free. Please park in the lot in front of the main lobby. Enter the Main Entrance where a Exerciser Horse Liaison at the information desk will greet [...] of your surgery preparation process here at [facility]. It will provide you with additional [...] section and content) DATE CREATED AUTHOR 03/01/2018 [facility] DATE CREATED AUTHOR AUTHOR'S ORGANIZ ATION 09/04/2018 [facility] DATE CREATED AUTHOR AUTHOR'S ORGANIZ ATION 12/11/2021 [facility] DATE CREATED AUTHOR AUTHOR'S ORGANIZ ATION 02/12/2022 [facility] DATE CREATED AUTHOR AUTHOR'S ORGANIZ ATION 08/13/2022 [facility] DATE CREATED AUTHOR AUTHOR'S ORGANIZ ATION 07/23/2024 [facility] DATE CREATED AUTHOR AUTHOR'S ORGANIZ ATION 09/01/2024 [facility] DATE CREATED AUTHOR AUTHOR'S ORGANIZ ATION 03/26/2025 [facility] DATE CREATED AUTHOR AUTHOR'S ORGANIZ ATION 07/04/2025 [facility] DATE CREATED AUTHOR AUTHOR'S ORGANIZ ATION 07/05/2025 [facility] DATE CREATED AUTHOR AUTHOR'S ORGANIZ ATION 07/21/2025 [facility] DATE CREATED AUTHOR AUTHOR'S ORGANIZ ATION 07/24/2025 [facility] DATE CREATED AUTHOR AUTHOR'S ORGANIZ ATION 07/26/2025 [facility] Care Teams (unrecognized sec tion and content) [...] DateEnd Date Alexander Chen MD [address] [place] [address] PCP - GeneralInternal Viqcward05/10/23Team MemberRelationshipSpecialtyStart Date End Date Alexander Chen MD [address] [place] [address] PCP - GeneralInternal Cvtrfijv37/10/23Team MemberRelationshipSpecialtyStart Date End Date Alexander Chen MD [address] [place] [address] PCP - GeneralInternal Iicexivl02/10/23Team MemberRelationshipSpecialtyStart Date End Date Alexander Chen MD [address] [place] [address] PCP - GeneralInternal Ocdaeqiz52/10/23Team MemberRelationshipSpecialtyStart Date End Date Alexander Chen MD [address] [place] [address] PCP - GeneralInternal Zkygrfpr21/10/23Team MemberRelationshipSpecialtyStart Date End Date Alexander Chen MD [address] [place] [address] PCP - GeneralInternal Zvnqbrsd10/10/23Team MemberRelationshipSpecialtyStart Date End Date Alexander Chen MD [address] [place] [address] PCP - GeneralInternal Grumpshy08/10/23Team MemberRelationshipSpecialtyStart Date End Date Alexander Chen DO [address] [place] [address] PCP - General02/23/13 Nava Sanches [facility] Nurse - FguouhBvzg27/4/24Team MemberRelationshipSpecialtyStart DateEnd Date Alexander Chen DO [address] [place] [address] PCP - General02/23/13 Nava Sanches [facility] Nurse - YnxikeLajo59/4/24Team MemberRelationshipSpecialtyStart DateEnd Date Alexander Chen MD [address] [place] [address] PCP - GeneralInternal Kcjmwvpf19/10/23Team MemberRelationshipSpecialtyStart Date End Date Alexander Chen MD [address] [place] [address] PCP - GeneralInternal Gggcgvon67/10/23Team MemberRelationshipSpecialtyStart Date End Date Alexander Chne DO [address] [place] [address] PCP - General02/23/13 Che Alandro [facility] Nurse - SignalLam/17/25Team MemberRelationshipSpecialtyStart DateEnd Date Alexander Chen DO [address] [place] [address] PCP - General02/23/13 Che Alaaureliaro CCM Nurse - SignalLamp1/17/25Team MemberRelationshipSpecialtyStart DateEnd Date Alexander Chen DO [address] [place] [address] PCP - General02/23/13 Che Alasandro [facility] Nurse - SignalLamp1/17/25Team MemberRelationshipSpecialtyStart DateEnd Date Alexander Chen DO [address] [place] [address] PCP - General02/23/13 Che Alasandro CCM Nurse - SignalLamp1/17/25Team MemberRelationshipSpecialtyStart DateEnd Date Alexander Chen DO [address] [place] [address] PCP - General02/23/13 Che Alasandro CCM Nurse - SignalLamp1/17/25Team MemberRelationshipSpecialtyStart DateEnd Date Alexander Chen MD PCP - GeneralInternal Ykctrnhu45/10/23Team MemberRelationshipSpecialtyStart Date End Date Alexander Chen MD PCP - GeneralInternal Wxhrhzti41/10/23Team MemberRelationshipSpecialtyStart Date End Date Alexander Chen DO [address] [place] [address] PCP - General02/23/13 Chesolis Plataro CCM Nurse - SignalLamp1/17/25Team MemberRelationshipSpecialtyStart DateEnd Date Alexander Chen DO [address] [place] [address] PCP - General02/23/13 Che Alasandro CCM Nurse - SignalLamp1/17/25Team MemberRelationshipSpecialtyStart DateEnd Date Alexander Chen, DO [address] [place] [address] PCP - General02/23/13 Che Alasandro CCM Nurse - SignalLamp1/17/25Team MemberRelationshipSpecialtyStart DateEnd Date Alexander Chen, DO [address] [place] [address] PCP - General02/23/13 Che Alasandro [facility] Nurse - SignalLamp1/17/25Team MemberRelationshipSpecialtyStart DateEnd Date Alexander Chen, DO [address] [place] [address] PCP - General02/23/13 Che Alasandro CCM Nurse - SignalLamp1/17/25Team MemberRelationshipSpecialtyStart DateEnd Date Alexander Chen, DO [address] [place] [address] PCP - General02/23/13 Che Alasandro CCM Nurse - SignalLamp1/17/25Team MemberRelationshipSpecialtyStart DateEnd Date Alexander Chen MD PCP - GeneralInternal Qjtkdnnd71/10/23Team MemberRelationshipSpecialtyStart Date End Date Alexander Chen MD PCP - GeneralInternal Mptafyqx46/10/23Team MemberRelationshipSpecialtyStart Date End Date Alexander Chen MD PCP - GeneralInternal Lfakvazs93/10/23Team MemberRelationshipSpecialtyStart Date End Date Alexander Chen DO [address] [place] [address] PCP - General02/23/13 Che Alasandro CCM Nurse - SignalLamp1/1725Team MemberRelationshipSpecialtyStart DateEnd Date Alexander Chen DO [address] [place] [address] PCP - General02/23/13 Che Alasandro CCM Nurse - SignalLamp1/25Team MemberRelationshipSpecialtyStart DateEnd Date Alexander Chen MD PCP - GeneralInternal Hmcunypc04/10/23Team MemberRelationshipSpecialtyStart Date End Date Alexander Cehn DO [address] [place] [address] PCP - General02/23/13 Che Alasandro [facility] Nurse - SignalLamp1/17/25Team MemberRelationshipSpecialtyStart DateEnd Date Alexander Chen DO [address] [place] [address] PCP - General02/23/13 Che Alasandro [facility] Nurse - SignalLamp1/17/25Team MemberRelationshipSpecialtyStart DateEnd Date Alexander Chen, [address] [place] [address] PCP - General02/23/13 Chesolis Sosa [facility] Nurse - SignalLamp1/17/25Team MemberRelationshipSpecialtyStart DateEnd Date Alexander Chen, [address] [place] [address] PCP - General02/23/13 Che Angelandro [facility] Nurse - SignalLamp1/1725Team MemberRelationshipSpecialtyStart DateEnd Date Alexander Chen MD PCP - GeneralInternal Bqrkwmen75/10/23Team MemberRelationshipSpecialtyStart Date End Date Alexander Chen DO [address] [place] [address] PCP - General02/23/13 Che Sosa [facility] Nurse - SignalLamp1/1725Team MemberRelationshipSpecialtyStart DateEnd Date Alexander Chen MD PCP - GeneralInternal Szndrwdg52/10/23Team MemberRelationshipSpecialtyStart Date End Date Alexander Chen DO [address] [place] [address] PCP - General02/23/13 Che Sosa CCM [facility] Goals (unrecognized section and content) Goals may be documented in a n alternate section Reason for Visit (unrecogniz ed section and content) ReasonCommentsWell Women VisitReasonCommentsMed RefillReasonCommentsThyroid ProblemReasonCommentsMNT - IndividualSpecialtyDiagnoses / ProceduresReferred By ContactReferred To ContactEndocrinology, Diabetes & Metabolism Diagnoses Type 2 diabetes mellitus without complication, without long-term current use of insulin ([facility]) Alexander Chen, DO [address] [place] [address] Phone: tel: fax: [facility] [address] [place] [address] Phone: tel: fax: Referral IDStatusReasonStart DateExpiration DateVisits RequestedVisits [id number] Review Specialty Services Required /[id number] FOR RECORDS PERTAINING TO PATIENTS WHO ARE [...] BE BASED ON THE PRIMARY CLINICAL RECORDS. [employer] [facility]. provides no warranty or guarantee of the accuracy or completeness of information in this document.
--- OUTSIDE RECORDS SUMMARY | 2025-08-20 07:28 | XMS_ITS ---
Author Organization [facility] Care Team Providers Care Ramp Service Man Name Role Phone Massimo Alfaro Unavailable Unavailable Karla Champagne Unavailable Unavailabl Suri Blanco Unavailable Unavailable Allergies and adverse reactions Code CodeSystem Substance Reaction Severity StartDate Concern Status 4053 RXNORM Erythromycin Moderate 10/23/2021 active 87894 RXNORM Toyei Moderate 10/23/2021 active 8640 RXNORM predniSONE Severe 10/23/2021 active 624995 RXNORM Sevelamer Moderate 10/23/2021 active EsjiagQvmmnkwz57/10/2022ctive Care Team Name Role Address Phone Organization Dates Suri New PCP [address] [place], [address], [place] (Office): : [facility] 10/23/2021 - 11/08/2021 Massimo Alfaro [address] [place] [address], [address], [place] (Office): : [facility] 10/23/2021 - 11/08/2021 Karla Champagne [facility] [place], [address], [place] (Cell): [facility] 10/23/2021 - 11/08/2021 Immunizations Immunization Status Vaccine Details Vaccine Code CodeSystem Date Notes Influenza completed Influenza, high-dose, split virus, quadrivalent, injectable, preservative free lotNumber: [id number] expiry: 02/06/2022 Mfg: SEQIRIS Given 0.5 ml Left Hip intramuscularly 197 CVX created date: 2 consent date: 2 administe red date: 2 administered on car shifter on 11/05/21 Influenza completed Influenza, high-dose, split virus, trivalent, injectable, preservative free 135 CVX created date: 2 administe red date: 0 Trivalent TB 2 Step Mantoux Skin Test completed tuberculin skin test; unspecified formulation lotNumber: [id number] expiry: 06/13/2022 Mfg: [employer] Given 0.1 ml Left Forearm intradermally Step 2 of Multi-step with next step required 98 CVX created date: 2 consent date: 2 administe red date: 2 TB 2 Step Mantoux Skin Testcompletedtuberculin skin test; unspecified formulation lotNumber: [id number] expiry: 06/13/2022 Mfg: [employer] Given 0.1 ml Left Forearm intradermally Step 1 of Multi-step with next step qvtpdclz70DHWilrfsqe date: 10/24/2021 consent date: 10/23/2021 administered date: 10/24/20214410MUVZ-ZUH-4 (COVID-19)sufxfnzpcYHXG-XND-8 (COVID-19) vaccine, mRNA, spike protein, LNP, preservative free, 100 mcg/0.5mL dose or 50 mcg/0.25mL dose Step 2 of Multi-step with next step oenqjxro959ASZtopkygs date: 10/23/2021 administered date: 01/14/20217305AFVD-ZBP-9 (COVID-19)zgeohepjcFRVS-ELI-6 (COVID-19) vaccine, mRNA, spike protein, LNP, preservative free, 30 mcg/0.3mL dose Step 1 of Multi-step with next step iaaqnuav756CDEoutielv date: 10/23/2021 administered date: 1PPSV 23completedPneumococcal Conjugate, unspecified formulation lotNumber: [id number] expiry: 04/19/2023 Mfg: [employer] Given 0.5 ml Left Deltoid tquckzboaddujtw651KNIsonnnjm date: 11/06/2021 consent date: 11/06/2021 administered date: 11/06/2021 Mental Status Section Date Assessment Total Score Description 11/08/2021 BIMS 13 cognitively int act CAM 0 No delirium ind icated PHQ-9 00 10/30/20219724VKYS73ejdqixgqlwc flkoagUCF5Bz delirium indicatedPHQ-900 Insurance Providers Coverage Status Coverage Type Relationship to Subscriber Member Identifier Subscriber Identifier Group Identifier Payer Identifier and Other information Code: 1 Code System OID:[id number] [id number]. 3.221.5 Code System Name: Source of Payment Typology ([facility]) Display: Medicare Translation : Code: MA Code System: OID:2.16.84 0.1.790087. 6.255.1336 Code System Name: Insurance Type Code ([id number]) Display Name: Medicare Part A Problems Problem # Description Date of onset Resolved Date Code CodeSystem Concern Status 1 ACUTE CYSTITIS WITHOUT HEMATURIA 10/29/19 22 11/06/[address] completed 2 CONTUSION OF LEFT THIGH, SEQUELA 10/28/[address] active 3 OTHER ABNORMALITIES OF GAIT AND MOBILITY 10/28/[address] active 4 DIFFICULTY IN WALKING, NOT ELSEWHERE CLASSIFIED 10/24/[address] active 5 MUSCLE WEAKNESS (GENERALIZED) 10/24/[address] active 6 OTHER FATIGUE 10/24/[address] active 7 OTHER PROBLEMS RELATED TO LIFE MANAGEMENT DIFFICULTY 10/24/[address] active 8 ANTIPHOSPHOLIPID SYNDROME 10/23/[address] active 9 ANXIETY DISORDER, UNSPECIFIED 10/23/[address] active 10 BIPOLAR DISORDER, UNSPECIFIED 10/23/[address] active 11 BODY MASS INDEX [BMI] 33.0-33.9, ADULT 10/23/[address] active 12 CHRONIC KIDNEY DISEASE, STAGE 3 UNSPECIFIED 10/23/[address] active 13 CONSTIPATION, UNSPECIFIED 10/23/[address] active 14 COVID-19 10/23/[address] active 15 DEPRESSION, UNSPECIFIED 10/23/[address] active 16 ESSENTIAL (PRIMARY) HYPERTENSION 10/23/[address] active 17 FIBROMYALGIA 10/23/[address] active 18 GASTRO-ESOPHAGEAL REFLUX DISEASE WITHOUT ESOPHAGITIS 10/23/[address] active 19 HISTORY OF FALLING 10/23/[address] active 20 HYPERLIPIDEMIA, UNSPECIFIED 10/23/[address] active 21 HYPOTHYROIDISM, UNSPECIFIED 10/23/[address] active 22 INSOMNIA, UNSPECIFIED 10/23/[address] active 23 IRON DEFICIENCY ANEMIA, UNSPECIFIED 10/23/[address] active 24 SENIOR LIVING (CURRENT) USE OF ANTICOAGULANTS 10/23/[address] active 25 MIGRAINE, UNSPECIFIED, NOT INTRACTABLE, WITHOUT STATUS MIGRAINOSUS 10/23/[address] active 26 MILD INTERMITTENT ASTHMA, UNCOMPLICATED 10/23/[address] active 27 OTHER SPONDYLOSIS, LUMBAR REGION 10/23/[address] active 28 PERSONAL HISTORY OF OTHER VENOUS THROMBOSIS AND EMBOLISM 10/23/[address] active 29 PERSONAL HISTORY OF TRANSIENT ISCHEMIC ATTACK (TIA), AND CEREBRAL INFARCTION WITHOUT RESIDUAL DEFICITS 10/23/[address] active 30 PRESENCE OF LEFT ARTIFICIAL HIP JOINT 10/23/[address] active 31 VITAMIN D DEFICIENCY, UNSPECIFIED 10/23/[address] active Reason for Referral No Reasons for Referral Entered Social History Social History Observation Description Start Date End Date Code Code System Current Smoking Status Tobacco smoking consumption unknown 114446770 SNOMED CT Sex Assigned At Female 1960 04334-2 LOINC Gender Identity Sexual Orientation Vital Signs Code Code System Vitals Name Values and Units Timing Information 96289-3 LOINC Pain Level Value=0.0 11/08/2021 8310-5 LOINC Body Temperature Value=97.6 Units= F 11/08/2021 96358-1 LOINC O2 % BldC Oximetry Value=96.0 Units= % 11/08/2021 9279-1 [facility] Respiratory Rate Value=16.0 Units=/m in 11/06/2021 8867-4 [facility] Heart rate Value=90.0 Units=/min 8462-4 [facility] Blood Pressure-Diastolic Value=64 Un its=mmHg 11/06/2021 8480-6 [facility] Blood Pressure-Systolic Oqgub=883 Un its=mmHg 11/06/2021 8302-2 [facility] Height Value=65.0 Units=Inches 10/23/2021 57808-6 [facility] Weight Ugxvj=028.0 Units=Lbs 06/2022
--- OUTSIDE RECORDS SUMMARY | 2025-08-20 07:29 | XMS_ITS ---
Author Organization [facility] Care Team Providers Care Dock Hand Name Role Phone Yanira Jacques Unavailable Unavailable Luis Enrique Singh Unavailable Unavailable Xin Joseph Unavailable Unavailable Elena Ng M Unavailable Unavailable Alicja Pantoja NP Unavailable Unavailable Bakies, Sophy Unavailable Unavailable SalinaGauri pinedo M Unavailable Unavailable Agata SANONCDivine Unavailable Unavailable Allergies and adverse reactions Code CodeSystem Substance Reaction Severity StartDate Concern Status 38848 RXNORM Azithromycin Unknown 12/08/2021 active 99968 RXNORM Bowles Severe 12/08/2021 active 8640 RXNORM predniSONE Unknown 12/08/2021 active 939535 RXNORM Sevelamer Moderate 12/08/2021 active RwgfwoCcuuaam64/28/2022ctive Care Team Name Role Address Phone Organization Dates Xin Joseph [address], [address], [place] (Office): : [facility] 12/08/2021 - 12/11/2021 Yanira Jcaques [address] [facility] [place], [address], [place] (Office): [facility] 12/08/2021 - 12/11/2021 Luis Enrique Singh [address] [facility] [address], [place], [address], [place] (Office): : : [facility] 12/08/2021 - 12/11/2021 Elena Ng [address] [place], [address], [place] (Cell): : [facility] 12/08/2021 - 12/11/2021 Alicja Pantoja HVAC R TECH [address] [place], [address], [place] (Office): : : [facility] 12/08/2021 - 12/11/2021 Sophy [place], [place] (Cell): [facility] 12/08/2021 - 12/11/2021 Gauri Fonseca [address] [place], [address], [place] (Office): : [facility] 12/08/2021 - 12/11/2021 Divine Parmar HVAC R TECH-C [address], [address], [place] (Cell): : : [facility] 12/08/2021 - 12/11/2021 Immunizations Immunization Status Vaccine Details Vaccine Code CodeSystem Justice e Notes Influenza normal Influenza, high-dose, split virus, quadrivalent, injectable, preservative free 197 CVX created date: 12/09/2021 consent date: 12/09/2021 Had flu shot last month when inpatient at [facility] Insurance Providers Coverage Status Coverage Type Relationship to Subscriber Member Identifier Subscriber Identifier Group Identifier Payer Identifier and Other information Code: 1 Code System OID:2.16.84 0.1.820871. 3.221.5 Code System Name: Source of Payment Typology ([facility]) Display: Medicare Translation : Code: JEN Code System: OID:2.16.84 0.1.435601. 6.255.1336 Code System Name: Insurance Type Code ([id number]) Display Name: Medicare Part A Problems Problem # Description Date of onset Resolved Date Code CodeSystem Concern Status 1 ANEMIA, UNSPECIFIED 12/08/[address] active 2 ANXIETY DISORDER, UNSPECIFIED 12/08/[address] active 3 BIPOLAR II DISORDER 12/08/2021 [address]81 [address] T active 4 ESSENTIAL (PRIMARY) HYPERTENSION 12/08/[address] active 5 GASTRO-ESOPHAGEAL REFLUX DISEASE WITHOUT ESOPHAGITIS 12/08/[address] active 6 HYPERLIPIDEMIA, UNSPECIFIED 12/08/[address] active 7 HYPOTHYROIDISM, UNSPECIFIED 12/08/[address] active 8 LUPUS ANTICOAGULANT SYNDROME 12/08/[address] active 9 SPINAL STENOSIS, CERVICAL REGION 12/08/[address] active 10 SPINAL STENOSIS, LUMBAR REGION WITHOUT NEUROGENIC CLAUDICATION 12/08/[address] active 11 UNSPECIFIED ASTHMA, UNCOMPLICATED 12/08/[address] active Reason for Referral No Reasons for Referral Entered Social History Social History Observation Description Start Date End Date Code Code System Current Smoking Status Tobacco smoking consumption unknown 209315826 SNOMED CT Sex Assigned At Female 1960 05800-4 LOINC Gender Identity Sexual Orientation Vital Signs Code Code System Vitals Name Values and Units Timing Information 9279-1 LOINC Respiratory Rate Value=16.0 Units=/m in 12/11/2021 8462-4 [facility] Blood Pressure-Diastolic Value=74 Un its=mmHg 12/11/2021 8480-6 [facility] Blood Pressure-Systolic Qwkkn=390 Un its=mmHg 12/11/2021 8310-5 LOINC Body Temperature Value=98.2 Units= F 12/11/2021 8867-4 [facility] Heart rate Value=76.0 Units=/min 22664-7 [facility] Pain Level Value=0.0 12/11/2021 65161-2 [facility] O2 % BldC Oximetry Value=98.0 Units= % 12/11/2021 8302-2 [facility] Height Value=65.0 Units=Inches 12/09/2021 30534-9 [facility] Weight Zxvml=708.0 Units=Lbs
--- NOTE | 2025-08-20 07:32 | XR_ITS ---
The [address] [address] Patient Name: NORA BRAND MRN: [id number] date: 1960 Sex: F Assigned Patient Location: US Current Patient Location: US Accession/Order Number: [id number] Exam Date: 08/20/2025 08:20 Report Date: 08/20/2025 09:15 At the request of: ANDRE SOLIS Procedure: XR abdomen 1V SINGLE VIEW ABDOMEN COMPARISON: 08/23/2024 CLINICAL DATA: Gross hematuria. History of kidney stones. Supine views of the abdomen and pelvis were obtained. There is air and stool within the colon. No dilated small bowel are visualized. No soft tissue masses are seen. The kidneys are partially obscured, greater on the right. No obvious radiopaque renal or ureteral stones are identified. There are degenerative changes at the spine. 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 There are bilateral hip prostheses. XR/XR abdomen 1V IMPRESSION: NO OBVIOUS RADIOPAQUE STONES. Impression dictated by: Elena Martinez M.D. 08/20/2025 9:15 AM Dictation Location: [place] [address] Electronically authenticated by: [id number] Y Date: 08/20/2025 09:15
--- NOTE | 2025-08-20 07:32 | US_ITS ---
The [address] [address] Patient Name: NORA BRAND MRN: [id number] date: 1960 Sex: F Assigned Patient Location: US Current Patient Location: US Accession/Order Number: [id number] Exam Date: 08/20/2025 07:35 Report Date: 08/20/2025 08:20 At the request of: ANDRE SOLIS Procedure: US renal BI BILATERAL RENAL AND BLADDER ULTRASOUND CLINICAL HISTORY: Gross Hematuria. History of kidney stones. COMPARISON: 08/23/2024 Estimation of renal size is approximately 9.0 cm on the right and 10.3 cm on the left. No shadowing calculi or hydronephrosis are identified. No renal mass lesions were imaged. There is no perinephric fluid. The urinary bladder is partially distended with a volume of 180 mL. No contour or intraluminal abnormalities are seen. US/US renal BI IMPRESSION: NO OBSTRUCTIVE UROPATHY. Impression dictated by: Elena Martinez M.D. 08/20/2025 8:20 AM Dictation Location: [place] [address] Electronically authenticated by: [id number] Y Date: 08/20/2025 08:20
== END 2025-08-20 07:21 | disposition home or self-care (01) ==
LOC: US 07:20
PROVIDERS: PCP Internal Medicine; Visit Provider Physician Assistant
DX: R31.0 Gross hematuria (principal); N20.0 Calculus of kidney; Z12.31 Encounter for screening mammogram for malignant neoplasm of breast; Z78.0 Asymptomatic menopausal state; Z80.8 Family history of malignant neoplasm of other organs or systems
CPT/HCPCS: 74018; 76775; 77063; 77067; 77080